=== PATIENT | female | born 1960 | race Caucasian/White ===

== ENCOUNTER → 2016-10-01 | Outpatient (CLI) | payer BC, OTHER ==
[~2016-10-01] MED LIST: ASPI81TA28 PO; EFFSR75 PO; INSUINJ14 SC; INSUINJ4 SQ; RMR15 PO
[2016-10-01 11:28] LABS: BLOOD UREA NITROGEN 27 mg/dl (7-18); CALCIUM 9.4 mg/dl (8.5-10.1); CARBON DIOXIDE 28 mmol/L (21-32); CHLORIDE 103 mmol/L (98-107); CHOLESTEROL 245 mg/dl (0-200); CREATININE 0.93 mg/dl (0.60-1.20); GLUCOSE 143 mg/dl (70-99); SODIUM 142 mmol/L (136-145)
[2016-10-01 11:31] LABS: HDL CHOLESTEROL 41 mg/dl; LDL CHOLESTEROL CALCULATED 138 mg/dl; TRIGLYCERIDES 328 mg/dl (0-150); VERY LOW DENSITY LIPOPROT CALC 66 mg/dl
[2016-10-01 11:32] LABS: ESTIMATED AVERAGE GLUCOSE 226 mg/dl; HA1C FLAG Normal (Normal)
[2016-10-01 11:59] LABS: RATIO 16.7 mcg/mg (0-30.0)
== END | disposition home or self-care (01) ==
LOC: C.LABBC 07:26
PROVIDERS: ATTEND Nurse Practitioner Family
DX: E11.29 Type 2 diabetes mellitus with other diabetic kidney complication (principal); E78.5 Hyperlipidemia, unspecified

== ENCOUNTER → 2017-01-28 | Outpatient (CLI) | payer BC, OTHER ==
[2017-01-28 11:54] LABS: ESTIMATED AVERAGE GLUCOSE 160 mg/dl; HA1C FLAG Normal (Normal)
== END | disposition home or self-care (01) ==
LOC: C.LABBC 07:19
PROVIDERS: ATTEND Nurse Practitioner Family
DX: E11.29 Type 2 diabetes mellitus with other diabetic kidney complication (principal)

== ENCOUNTER → 2017-06-03 | Outpatient (CLI) | payer BC, OTHER ==
[2017-06-03 11:30] LABS: ESTIMATED AVERAGE GLUCOSE 160 mg/dl; HA1C FLAG Normal (Normal)
== END | disposition home or self-care (01) ==
LOC: C.LABBC 07:28
PROVIDERS: ATTEND Nurse Practitioner Family
DX: E11.65 Type 2 diabetes mellitus with hyperglycemia (principal)

== ENCOUNTER 2017-09-22 03:27 | Emergency (ER) | payer BC, OTHER ==
[~2017-09-22] VITALS: Ht 162.6 cm; Wt 70.0 kg
[2017-09-22 03:34] VITALS: TEMP 36.5; Ht 162.6 cm; Wt 70.0 kg
[2017-09-22] MEDS ORDERED: ONDANSETRON INJ 2 MG/ML 2 ML VIAL IV STA (03:40)
[2017-09-22] MEDS ORDERED: MoRPHine SULFATE 10 MG/ML CARP/VIAL IV STA (03:40)
--- NOTE | 2017-09-22 03:51 | EMERGENCY ROOM VISIT NOTE ---
History First contact with patient: 03:29 Chief Complaint: FLANK PAIN Stated Complaint: FLANK PAIN History of Present Illness The patient is a 57 year old female who presents to the Emergency Room with complaints of left flank pain which began approximate 3.5 hours ago. The patient states that she has had pain in the left side of the back with radiation into the left lower abdomen/groin. She has had nausea and vomiting. She denies urinary symptoms. She states that the pain was initially intermittent but is now constant. She rates the discomfort a 5/10. She does have a history of kidney stones and has had lithotripsy and stent placement in the past for these. She sees Dr. Camargo locally. She denies any changes in bowel movements or fevers. Review of Systems A complete 10 point review of systems was reviewed with the patient with pertinent positives and negatives as per history of present illness. All else were negative. Past Medical/Surgical History Medical Problems: (1) CHRONIC LIVER DIS NEC (2) DIAB SAMY WO COMPL, TYPE II OR UNSPEC TYPE, NOT UNCNTRLD (3) DIVERTICULITIS COLON (W/O MENT OF HEMORRHAGE) (4) HYPERTENSION NOS Family History Diabetes mellitus FH: cancer FH: gallbladder disease FH: heart disease Hypertension Kidney disease Kidney stones Social History Smoking Status: Current Every Day Smoker Alcohol Use: none Housing Status: lives with family Occupation Status: employed Current/Historical Medications Scheduled Aspirin (Aspirin Ec), 81 MG PO HS Hctz/Lisinopril (Lisinopril/Hctz 10/12.5 Mg), 1 TAB PO DAILY Insulin Aspart (novoLOG INSULIN PUMP ), 1 EA N/A UD Mirtazapine Soltab (Remeron Soltab), 30 MG PO HS Ondasetron Odt (Zofran Odt), 4 MG SL Q6H Tamsulosin Hcl (Flomax), 0.4 MG PO DAILY Venlafaxine Hcl (Effexor Extended Rel), 225 MG PO HS Scheduled PRN Oxycodone/Acetaminophen 5MG/325MG (Percocet 5MG/325MG), 1-2 TABS PO Q4H PRN for Pain Physical Exam Vital Signs Date Time Temp Pulse Resp B/P (MAP) Pulse Ox O2 Delivery O2 Flow Rate FiO2 09/22/17 09:16 76 18 128/76 96 09/22/17 07:55 109 18 115/67 95 Room Air 09/22/17 07:14 102 09/22/17 06:35 104 17 96 09/22/17 06:30 130/79 09/22/17 06:00 126/70 09/22/17 05:35 110 16 96 09/22/17 05:30 133/88 09/22/17 05:27 112 14 95 09/22/17 05:00 146/88 09/22/17 04:57 117 18 95 09/22/17 04:31 147/89 09/22/17 04:00 144/87 09/22/17 03:57 106 14 95 09/22/17 03:39 102 09/22/17 03:34 36.5 94 18 140/83 95 Room Air 09/22/17 03:33 140/83 Physical Exam VITALS: Vitals are noted on the nurse's note and reviewed by myself. Vital signs stable. GENERAL: This is a 57-year-old female, in no acute distress, nondiaphoretic, well-developed well-nourished. SKIN: The skin was without rashes. MOUTH: Mucous membranes moist. NECK: Supple without nuchal rigidity. HEART: Regular rate and rhythm without murmurs gallops or rubs. LUNGS: Clear to auscultation bilaterally without wheezes, rales or rhonchi. ABDOMEN: Positive bowel sounds x 4. Soft, mild tenderness to palpation in the left lower quadrant. Left CVA tenderness. No guarding or rebound tenderness. NEURO: Patient was alert and oriented to person place and time. Medical Decision & Procedures ER Provider Diagnostic Interpretation: CT ABDOMEN & PELVIS WITHOUT CONTRAST: 7 mm obstructing calculus in the left distal ureter. Mild left hydroureteronephrosis. Nonobstructing bilateral renal calculi. Normal appendix in the posterior pelvis. Nodular cirrhotic liver. Cholecystectomy. Coronary calcifications. Radiologist: Jo Ann Guan MD Laboratory Results 09/22/17 04:12 Red Blood Count 3.94, Mean Corpuscular Volume 86.3, Mean Corpuscular Hemoglobin 30.7, Mean Corpuscular Hemoglobin Concent 35.6, Mean Platelet Volume 10.4, Neutrophils (%) (Auto) 77.8, Lymphocytes (%) (Auto) 17.9, Monocytes (%) (Auto) 2.9, Eosinophils (%) (Auto) 0.9, Basophils (%) (Auto) 0.3, Neutrophils # (Auto) 9.02, Lymphocytes # (Auto) 2.07, Monocytes # (Auto) 0.34, Eosinophils # (Auto) 0.11, Basophils # (Auto) 0.03 09/22/17 04:12 Test 09/22/17 04:12 09/22/17 06:12 White Blood Count 11.59 K/uL (4.8-10.8) Red Blood Count 3.94 M/uL (4.2-5.4) Hemoglobin 12.1 g/dL (12.0-16.0) Hematocrit 34.0 % (37-47) Mean Corpuscular Volume 86.3 fL (80-100) Mean Corpuscular Hemoglobin 30.7 pg (25-34) Mean Corpuscular Hemoglobin Concent 35.6 g/dl (32-36) Platelet Count 172 K/uL (130-400) Mean Platelet Volume 10.4 fL (7.4-10.4) Neutrophils (%) (Auto) 77.8 % Lymphocytes (%) (Auto) 17.9 % Monocytes (%) (Auto) 2.9 % Eosinophils (%) (Auto) 0.9 % Basophils (%) (Auto) 0.3 % Neutrophils # (Auto) 9.02 K/uL (1.4-6.5) Lymphocytes # (Auto) 2.07 K/uL (1.2-3.4) Monocytes # (Auto) 0.34 K/uL (0.11-0.59) Eosinophils # (Auto) 0.11 K/uL (0-0.5) Basophils # (Auto) 0.03 K/uL (0-0.2) RDW Standard Deviation 42.7 fL (36.4-46.3) RDW Coefficient of Variation 13.4 % (11.5-14.5) Immature Granulocyte % (Auto) 0.2 % Immature Granulocyte # (Auto) 0.02 K/uL (0.00-0.02) Anion Gap 7.0 mmol/L (3-11) Est Creatinine Clear Calc Drug Dose 60.1 ml/min Estimated GFR () 73.7 Estimated GFR (Non- 63.6 BUN/Creatinine Ratio 23.2 (10-20) Calcium Level 8.9 mg/dl (8.5-10.1) Total Bilirubin 0.3 mg/dl (0.2-1) Aspartate Amino Transf (AST/SGOT) 31 U/L (15-37) Alanine Aminotransferase (ALT/SGPT) 37 U/L (12-78) Alkaline Phosphatase 99 U/L (45-117) Total Protein 7.6 gm/dl (6.4-8.2) Albumin 3.8 gm/dl (3.4-5.0) Globulin 3.8 gm/dl (2.5-4.0) Albumin/Globulin Ratio 1.0 (0.9-2) Urine Color RED Urine Appearance CLOUDY (CLEAR) Urine pH 7.5 (4.5-7.5) Urine Specific [place] 1.023 (1.000-1.030) Urine Protein NEG (NEG) Urine Glucose (UA) 3+ (NEG) Urine Ketones TRACE (NEG) Urine Occult Blood 2+ (NEG) Urine Nitrite NEG (NEG) Urine Bilirubin NEG (NEG) Urine Urobilinogen NEG (NEG) Urine Leukocyte Esterase NEG (NEG) Urine WBC (Auto) 5-10 /hpf (0-5) Urine RBC (Auto) >30 /hpf (0-4) Urine Hyaline Casts (Auto) 1-5 /lpf (0-5) Urine Epithelial Cells (Auto) >30 /lpf (0-5) Urine Bacteria (Auto) NEG (NEG) Medications Administered Medications (Trade) Dose Ordered Sig/Slim Route Start Time Stop Time Status Last Admin Dose Admin Morphine Sulfate (MoRPHine SULFATE INJ) 6 mg NOW STAT IV 09/22/17 03:40 09/22/17 03:42 DC 09/22/17 04:08 6 MG Ondansetron HCl (Zofran Inj) 4 mg NOW STAT IV 09/22/17 03:40 09/22/17 03:42 DC 09/22/17 04:08 4 MG Sodium Chloride 1,000 ml @ 999 mls/hr Q1H1M STAT IV 09/22/17 05:57 09/22/17 06:57 DC 09/22/17 05:57 999 MLS/HR ED Course The patient was evaluated as above. Labs were drawn and IV access was obtained. Patient was medicated with 1 L NSS, 6 mg morphine and [address] of the abdomen and pelvis was performed and read by radiology as above. Patient was reevaluated and stated she felt much better. Discharge instructions were reviewed with the patient. The patient verbalized understanding of my assessment and treatment plan and was discharged home in good condition. Medical Decision Differential diagnosis includes kidney stone, pyelonephritis, musculoskeletal pain, among others. The patient is a 57-year-old female who presents today complaining of flank pain and vomiting. Labs revealed mild leukocytosis, likely secondary to stress and vomiting. Urinalysis was not suggestive of infection, but did show occult blood in the urine. Kidney functions are within normal limits. CT scan does reveal an obstructing kidney stone in the distal left ureter. Patient had improvement with IV morphine and Zofran. She has had multiple kidney stones in the past. She was offered admission for pain control, but does not feel that she needs this at this time. She is comfortable with discharge home. She was given prescriptions for Percocet, Zofran and Flomax. She will follow-up with her urologist. She will return here for any worsening symptoms. Based on the patient's presentation and work up, I feel the patient is stable for outpatient treatment. The patient was educated to return to the emergency department for any worsening of their current condition or new/concerning symptoms. She will follow up with urology. [facility] Monitoring [facility] Search Results: patient reviewed within database, no issues identified Medication Reconcilliation Current Medication List: was personally reviewed by me Blood Pressure Screening Patient's blood pressure: Normal blood pressure Impression Primary Impression: Left ureteral calculus Departure Information Dispostion Home / Self-Care Condition GOOD Prescriptions Tamsulosin Hcl (FLOMAX) 0.4 Mg Cap 0.4 MG PO DAILY for 10 Days, #10 CAP Prov: Kamini Harris PA-C 09/22/17 Ondasetron Odt (ZOFRAN ODT) 4 Mg Tab 4 MG SL Q6H for Nausea, #6 TAB Prov: Kamini Harris PA-C 09/22/17 Oxycodone/Acetaminophen 5MG/325MG (PERCOCET 5MG/325MG) Tab 1-2 TABS PO Q4H Y for Pain, #25 TAB For Initial Treatment Prov: Kamini Harris PA-C 09/22/17 Referrals Brendon Farfan M.D. (PCP) Brendon Camargo M.D. Patient Instructions My [facility] Additional Instructions You have been treated in the Emergency Department today for a Kidney Stone ( Nephrolithiasis). You have received pain medicine in the emergency department which impairs your ability to operate a vehicle. It is illegal for you to drive after receiving these medicines. You have been prescribed Percocet to be used for pain control. This is a narcotic medication. You cannot drive or consume alcohol while on this medicine. This medicine should only be used for pain that cannot be controlled with [id number] pain medicines. You have been prescribed Zofran to be used for any nausea or vomiting. Take as prescribed. You have been prescribed Flomax 0.4 mg to be taken ONCE daily. This medicine has been prescribed as it can help relax the smooth muscles of the urinary tract increasing transit time of the kidney stone. For pain control, you can use the following [id number] medicines (if >12 yo): - Regular strength (325mg/tab) Tylenol (acetaminophen) 2 tabs every 4-6 hours as needed. Do not exceed 12 tablets in a 24 hour period. Avoid taking more than 4 grams (4000 mg) of Tylenol per day. This includes any other sources of acetaminophen you may take on a regular basis. - Regular strength (200 mg/tab) Advil (ibuprofen) 1-2 tabs every 4-6 hours as needed. Do not exceed a dose of 3200 mg per day. Contact Dr. Camargo to schedule a follow-up appointment. Return to the Emergency Department if your symptoms persist despite the treatment plan outlined above or if you develop the following symptoms: intractable pain, fever, chills, or large amounts of blood in your urine.
[2017-09-22 04:21] LABS: BASO % 0.3 %; BASO ABS # 0.03 K/uL (0-0.2); EOS % 0.9 %; EOS ABS # 0.11 K/uL (0-0.5); HEMOGLOBIN 12.1 g/dL (12.0-16.0); IG# 0.02 K/uL (0.00-0.02); LYMPH % 17.9 %; LYMPH ABS # 2.07 K/uL (1.2-3.4); MEAN CELL VOLUME 86.3 fL (80-100); MEAN CORPUSCULAR HEMOGLOBIN 30.7 pg (25-34); MEAN CORPUSCULAR HGB CONC 35.6 g/dl (32-36); MEAN PLATELET VOLUME 10.4 fL (7.4-10.4); MONO % 2.9 %; MONO ABS # 0.34 K/uL (0.11-0.59); NEUT % 77.8 %; NEUT ABS # 9.02 K/uL (1.4-6.5); PLATELET COUNT 172 K/uL (130-400); RED CELL DISTRIBUTION WIDTH CV 13.4 % (11.5-14.5); RED CELL DISTRIBUTION WIDTH SD 42.7 fL (36.4-46.3); WHITE BLOOD COUNT 11.59 K/uL (4.8-10.8)
[2017-09-22 04:38] LABS: ALBUMIN 3.8 gm/dl (3.4-5.0); CALCIUM 8.9 mg/dl (8.5-10.1); CREATININE 0.98 mg/dl (0.60-1.20); POTASSIUM 3.4 mmol/L (3.5-5.1)
[2017-09-22 04:41] LABS: TOTAL PROTEIN 7.6 gm/dl (6.4-8.2)
[2017-09-22] MEDS ORDERED: INSPMPNVLG (05:10)
[2017-09-22] MEDS ORDERED: MIRT30TA2 PO (05:11)
[2017-09-22] MEDS ORDERED: LISI-787 PO (05:12)
[2017-09-22] MEDS ORDERED: LSN/10125 PO (05:13)
[2017-09-22] MEDS ORDERED: SODIUM CHLORIDE 0.9% 1000ML 1,000 ML IV STA (05:57)
--- NOTE | 2017-09-22 06:50 | DIAGNOSTIC IMAGING REPORT ---
ABD/PELVIS WITHOUT FOR STONE CT DOSE: 746.83 mGy.cm HISTORY: Flank pain left flank pain TECHNIQUE: Multiaxial CT images of the abdomen and pelvis were performed without the use of intravenous and oral contrast according to the standard department stone protocol. A dose lowering technique was utilized adhering to the principles of ALARA. COMPARISON STUDY: 05/29/2013 FINDINGS: Lung bases are clear. Prior cholecystectomy. Liver spleen and pancreas are otherwise uniform. Pancreas is unremarkable. Several nonobstructive renal calcifications bilaterally. These are similar compared to the prior study. Moderate left hydroureteronephrosis. 4 mm obstructing calculus at the level of the inferior left sacroiliac joint. Bladder is midline. Bowel pattern is considered nonobstructive. Patent note is made of a sclerotic changes superior left femoral head possibly on the basis of pre-existing avascular process. IMPRESSION: 1. 4 mm obstructing calculus distal left ureter at the level of the left inferior sacroiliac joint. 2. Moderate left hydroureteronephrosis. 3. Additional nonobstructing renal calcifications bilaterally. 4. Sclerosis left superior femoral head possibly on the basis of pre-existing avascular necrosis. This is unchanged from the prior study, and is not considered acute.. The above report was generated using voice recognition software. It may contain grammatical, syntax or spelling errors. Electronically signed by: Luis Daniel Leach M.D. 09/22/2017 6:49 AM Dictated Date/Time: 09/22/2017 6:45 AM
[2017-09-22] MEDS ORDERED: TAMS0.4C38 PO (07:04)
[2017-09-22] MEDS ORDERED: OXYC-57 PO (07:04)
[2017-09-22] MEDS ORDERED: ONDA4TAB10 SL (07:04)
[2017-09-22 09:16] VITALS: BP 128/76; PULSE 76; O2SAT 96
[2017-09-24] MEDS ORDERED: ONDA4TAB10 SL (13:07)
[2017-09-24] MEDS ORDERED: OXYC-57 PO (13:07)
== END 2017-09-22 09:17 | disposition home or self-care (01) ==
LOC: EDBD 03:27 → C.EDB 03:29
DX: N20.1 Calculus of ureter (principal); I10 Essential (primary) hypertension; E11.9 Type 2 diabetes mellitus without complications; K76.9 Liver disease, unspecified; K57.92 Diverticulitis of intestine, part unspecified, without perforation or abscess without bleeding; F17.200 Nicotine dependence, unspecified, uncomplicated; Z79.4 Long term (current) use of insulin; Z79.82 Long term (current) use of aspirin; Z79.899 Other long term (current) drug therapy; Z83.3 Family history of diabetes mellitus; Z80.9 Family history of malignant neoplasm, unspecified; Z83.79 Family history of other diseases of the digestive system; Z82.49 Family history of ischemic heart disease and other diseases of the circulatory system; Z84.1 Family history of disorders of kidney and ureter

== ENCOUNTER 2017-09-23 10:54 | Observation (INO) | payer BC, OTHER ==
[~2017-09-23] VITALS: Ht 162.6 cm; Wt 72.2 kg
[~2017-09-23 10:54] MED LIST changes: -CIPR-255 PO; +MoRPHine SULFATE 10 MG/ML CARP/VIAL ONE; +ONDANSETRON INJ 2 MG/ML 2 ML VIAL ONE; -PHEN-775 PO
[2017-09-23] MEDS ORDERED: ONDANSETRON INJ 2 MG/ML 2 ML VIAL IV STA (11:23)
[2017-09-23] MEDS ORDERED: SODIUM CHLORIDE 0.9% 1000ML 1,000 ML IV STA (11:23)
[2017-09-23] MEDS ORDERED: MoRPHine SULFATE 10 MG/ML CARP/VIAL IV PRN (11:30)
--- NOTE | 2017-09-23 11:31 | EMERGENCY ROOM VISIT NOTE ---
History Report prepared by Gilda: Nathan Lopez Under the Supervision of: Dr. Hunter Almeida M.D. First contact with patient: 11:20 Chief Complaint: KIDNEY STONE Stated Complaint: KIDNEY STONE WON'T PASS History of Present Illness The patient is a 57 year old female who presents to the Emergency Room with complaints of a persistent left-sided kidney stone over the past 2 or 3 days. She was sent here after being seen by Dr. Camargo of urology this morning. The patient states that she has a history of kidney stones, and her last one was in 2013. She has passed kidney stones before, and she has needed intervention other times as well. The patient states that she was initially told that her kidney stone was [address] scan, but on the KUB today, it revealed a [address] Camargo told the patient that an extraction would most likely be necessary for this stone. The patient states that she has had nausea and vomiting. She says that she took Percocet this morning but it is not lessening the pain. The patient denies any notable urinary symptoms. She has taken one dose of Flomax so far. Source of History: patient, family Onset: 2 or 3 days Position: other (left kidney) Quality: other (stone) Timing: other (persistent) Associated Symptoms: + nausea, + vomiting, No urinary symptoms Note: No other associated symptoms noted. Review of Systems See HPI for pertinent positives & negatives. A total of 10 systems reviewed and were otherwise negative. Past Medical & Surgical Medical Problems: (1) CHRONIC LIVER DIS NEC (2) DIAB SAMY WO COMPL, TYPE II OR UNSPEC TYPE, NOT UNCNTRLD (3) DIVERTICULITIS COLON (W/O MENT OF HEMORRHAGE) (4) Hydronephrosis due to obstruction of ureter (5) HYPERTENSION NOS Family History Diabetes mellitus FH: cancer FH: gallbladder disease FH: heart disease Hypertension Kidney disease Kidney stones Social History Smoking Status: Current Every Day Smoker Alcohol Use: none Housing Status: lives with family Occupation Status: employed Current/Historical Medications Scheduled Aspirin (Aspirin Ec), 81 MG PO HS Hctz/Lisinopril (Lisinopril/Hctz 10/12.5 Mg), 1 TAB PO DAILY Insulin Aspart (novoLOG INSULIN PUMP ), 1 EA N/A UD Mirtazapine Soltab (Remeron Soltab), 30 MG PO HS Ondasetron Odt (Zofran Odt), 4 MG SL Q6H Tamsulosin Hcl (Flomax), 0.4 MG PO DAILY Venlafaxine Hcl (Effexor Extended Rel), 225 MG PO HS Scheduled PRN Oxycodone/Acetaminophen 5MG/325MG (Percocet 5MG/325MG), 1-2 TABS PO Q4H PRN for Pain Allergies Coded Allergies: Penicillins (Verified Allergy, Mild, 09/23/17) Physical Exam Vital Signs Date Time Temp Pulse Resp B/P (MAP) Pulse Ox O2 Delivery O2 Flow Rate FiO2 09/23/17 11:03 37.1 104 18 114/68 96 Room Air Physical Exam GENERAL: Patient is in no acute distress. HEENT: No acute trauma, normocephalic atraumatic, mucous membranes moist, no nasal congestion, no scleral icterus. NECK: No stridor, no adenopathy, no meningismus, trachea is midline. LUNGS: Clear to auscultation bilaterally, no wheeze, no rhonchi, breath sounds equal. HEART: Without murmurs gallops or rubs, regular rate and rhythm. BACK: Left flank discomfort with percussion. ABDOMEN: Tender along entire left side. Soft, bowel sounds positive, no hernias , no peritonitis. EXTREMITIES: No cyanosis or edema, full range of motion of all the joints without pain or difficulty, no signs for acute trauma. NEUROLOGIC: Oriented x 3, no acute motor or sensory deficits, no focal weakness. SKIN: No rash, no jaundice, no diaphoresis. Medical Decision & Procedures Laboratory Results 09/23/17 11:22 Red Blood Count 3.91, Mean Corpuscular Volume 88.2, Mean Corpuscular Hemoglobin 29.4, Mean Corpuscular Hemoglobin Concent 33.3, Mean Platelet Volume 10.3, Neutrophils (%) (Auto) 65.8, Lymphocytes (%) (Auto) 26.0, Monocytes (%) (Auto) 6.2, Eosinophils (%) (Auto) 1.5, Basophils (%) (Auto) 0.2, Neutrophils # (Auto) 7.27, Lymphocytes # (Auto) 2.86, Monocytes # (Auto) 0.68, Eosinophils # (Auto) 0.16, Basophils # (Auto) 0.02 09/23/17 11:22 Test 09/23/17 11:22 White Blood Count 11.02 K/uL (4.8-10.8) Red Blood Count 3.91 M/uL (4.2-5.4) Hemoglobin 11.5 g/dL (12.0-16.0) Hematocrit 34.5 % (37-47) Mean Corpuscular Volume 88.2 fL (80-100) Mean Corpuscular Hemoglobin 29.4 pg (25-34) Mean Corpuscular Hemoglobin Concent 33.3 g/dl (32-36) Platelet Count 162 K/uL (130-400) Mean Platelet Volume 10.3 fL (7.4-10.4) Neutrophils (%) (Auto) 65.8 % Lymphocytes (%) (Auto) 26.0 % Monocytes (%) (Auto) 6.2 % Eosinophils (%) (Auto) 1.5 % Basophils (%) (Auto) 0.2 % Neutrophils # (Auto) 7.27 K/uL (1.4-6.5) Lymphocytes # (Auto) 2.86 K/uL (1.2-3.4) Monocytes # (Auto) 0.68 K/uL (0.11-0.59) Eosinophils # (Auto) 0.16 K/uL (0-0.5) Basophils # (Auto) 0.02 K/uL (0-0.2) RDW Standard Deviation 44.5 fL (36.4-46.3) RDW Coefficient of Variation 13.8 % (11.5-14.5) Immature Granulocyte % (Auto) 0.3 % Immature Granulocyte # (Auto) 0.03 K/uL (0.00-0.02) Anion Gap 8.0 mmol/L (3-11) Est Creatinine Clear Calc Drug Dose 46.7 ml/min Estimated GFR () 53.4 Estimated GFR (Non- 46.0 BUN/Creatinine Ratio 17.4 (10-20) Calcium Level 8.8 mg/dl (8.5-10.1) Laboratory results reviewed by me. Medications Administered Medications (Trade) Dose Ordered Sig/Slim Route Start Time Stop Time Status Last Admin Dose Admin Ondansetron HCl (Zofran Inj) 4 mg NOW STAT IV 09/23/17 11:23 09/23/17 11:26 DC 12/29/17 11:40 4 MG Sodium Chloride 1,000 ml @ 999 mls/hr Q1H1M STAT IV 09/23/17 11:23 09/23/17 12:23 DC 09/23/17 11:39 999 MLS/HR Morphine Sulfate (MoRPHine SULFATE INJ) 6 mg Q15M PRN IV 09/23/17 11:30 09/23/17 16:05 DC 09/23/17 11:41 6 MG Morphine Sulfate (MoRPHine SULFATE INJ) 2 mg STK-MED ONCE .ROUTE 09/23/17 13:50 09/23/17 13:51 DC 09/23/17 13:58 2 MG Morphine Sulfate (MoRPHine SULFATE INJ) 4 mg STK-MED ONCE .ROUTE 09/23/17 13:50 09/23/17 13:51 DC 09/23/17 13:57 4 MG ED Course 1122: The patient was evaluated in room B9. A complete history and physical exam was performed. 1123: Ordered NSS 1000 ml @ 999 mls/hr IV, Zofran Inj 4 mg IV. 1130: Ordered Morphine Sulfate Inj 6 mg IV PRN. 1137: I discussed the patient with Dr. Mary Jo CON[facility] urology - he says that he would like the patient to be brought in on the medicine service and have a urology consult for a potential stenting or stone extraction. 1200: Upon reexamination the patient is resting comfortably. I discussed results and treatment plan with the patient. She verbalizes agreement and understanding. The patient will be evaluated for further management. 1203: Discussed the patient's [facility] The patient will be evaluated for further management. Medical Decision Differential diagnosis includes but is not limited to failed outpatient treatment, hydronephrosis, UTI, pyelonephritis, renal colic, electrolyte imbalance, renal failure. There is a mild leukocytosis, this could be consistent with infection or just her pain and discomfort. No worrisome anemia. No significant electrolyte abnormality or kidney failure. KUB from earlier today showed a left sided ureteral stone measured at 7 mm. Urinalysis result is currently pending. The patient presents with left flank pain from a known ureteral stone. She presents from the urology office. She was given IV morphine, IV Zofran and IV saline, she feels improved. I did speak with the urologist. The patient is being hospitalized for intervention and possible stone extraction. I did speak to case management, the on-call hospitalist was consulted. She has failed outpatient management. Medication Reconcilliation Current Medication List: was personally reviewed by me Blood Pressure Screening Patient's blood pressure: Normal blood pressure Consults Time Called: 1135 Consulting Physician: Dr. Mary Jo [facility] urology Returned Call: [phone] I discussed the patient with Dr. Mary Jo [facility] urology - he says that he would like the patient to be brought in on the medicine service and have a urology consult for a potential stenting or stone extraction. Additional Consults: Time Called: 1145 Consulted Physician: Dr. Megan [facility]CE[facility] casting sorter Returned Call: [phone] Additional Comments: Discussed the patient's case with Dr. Megan [facility] casting sorter. The patient will be evaluated for further management. Impression Primary Impression: Renal colic Additional Impressions: Vomiting Failure of outpatient treatment Scribe Attestation The scribe's documentation has been prepared under my direction and personally reviewed by me in its entirety. I confirm that the note above accurately reflects all work, treatment, procedures, and medical decision making performed by me. Departure Information Dispostion Being Evaluated By Hospitalist Referrals Brendon Farfan M.D. (PCP) Patient Instructions My [facility] Problem Qualifiers Additional Impressions: Vomiting Vomiting type: unspecified Vomiting Intractability: unspecified Nausea presence: unspecified Qualified Codes: R11.10 - Vomiting, unspecified
[2017-09-23 11:44] LABS: BASO % 0.2 %; BASO ABS # 0.02 K/uL (0-0.2); EOS % 1.5 %; EOS ABS # 0.16 K/uL (0-0.5); HEMATOCRIT 34.5 % (37-47); HEMOGLOBIN 11.5 g/dL (12.0-16.0); IG# 0.03 K/uL (0.00-0.02); LYMPH ABS # 2.86 K/uL (1.2-3.4); MEAN CELL VOLUME 88.2 fL (80-100); MEAN CORPUSCULAR HEMOGLOBIN 29.4 pg (25-34); MEAN CORPUSCULAR HGB CONC 33.3 g/dl (32-36); MEAN PLATELET VOLUME 10.3 fL (7.4-10.4); MONO % 6.2 %; MONO ABS # 0.68 K/uL (0.11-0.59); NEUT % 65.8 %; NEUT ABS # 7.27 K/uL (1.4-6.5); PLATELET COUNT 162 K/uL (130-400); RED CELL DISTRIBUTION WIDTH CV 13.8 % (11.5-14.5); RED CELL DISTRIBUTION WIDTH SD 44.5 fL (36.4-46.3); WHITE BLOOD COUNT 11.02 K/uL (4.8-10.8)
[2017-09-23 11:55] LABS: CALCIUM 8.8 mg/dl (8.5-10.1); CREATININE 1.28 mg/dl (0.60-1.20); POTASSIUM 3.1 mmol/L (3.5-5.1)
[2017-09-23] MEDS ORDERED: MoRPHine SULFATE 4 MG/ML 1 ML CARP\\VIAL ONE (13:50)
[2017-09-23] MEDS ORDERED: MoRPHine SULFATE 2 MG/ML CARP ONE (13:50)
[2017-09-23] MEDS ORDERED: GLUCOSE 10 TABS/TUBE PO PRN (14:00)
[2017-09-23] MEDS ORDERED: GLUCOSE 40% GEL 15 GM TUBE PO PRN (14:00)
[2017-09-23] MEDS ORDERED: ALUMINUM/MAGNESIUM/SIMETH (MAALOX MAX) 30 ML UDC PO PRN (14:00)
[2017-09-23] MEDS ORDERED: ONDANSETRON INJ 2 MG/ML 2 ML VIAL IV PRN (14:00)
[2017-09-23] MEDS ORDERED: IV FLUIDS COMPLETED PRN (14:00)
[2017-09-23] MEDS ORDERED: GLUCAGON FOR INJ 1 MG VIAL SQ PRN (14:00)
[2017-09-23] MEDS ORDERED: DEXTROSE 50% 50 ML SYR IV PRN (14:00)
[2017-09-23] MEDS ORDERED: MAGNESIUM HYDROXIDE SUSP 30 ML UDC PO PRN (14:00)
[2017-09-23] MEDS ORDERED: POLYETHYLENE (MIRALAX) 17 GM PACK PO PRN (14:00)
[2017-09-23] MEDS ORDERED: ZOLPIDEM TARTRATE 5 MG TAB PO PRN (14:00)
[2017-09-23] MEDS ORDERED: HYDROmorphone INJ 1 MG/ML SYR IV PRN (14:00)
--- NOTE | 2017-09-23 14:20 | History and Physical ---
History & Physical Date & Time of Service: Sep 23, 2017 at 14:04 Chief Complaint: Kidney Stone Won't Pass Primary Care Physician: Brendon Farfan M.D. History of Present Illness Source: patient 57 y/o F Hx IDDM, HTN, fatty liver disease, migraines, depression, nephrolithiasis - previous ureteral stent placement. The pt presents with LLQ pain, nausea and vomiting. She had a CT pelvis 09/22 which confirmed a distal L obstructive ureteral calculus measuring 4mm and moderate hydronephrosis. She arrived at the hospital a day later due to worsening pain, nausea and vomiting. She denies fevers or rigors. A KUB was obtained as a follow-up confirming a calculus, however, it was measured at approximately 7mm. Past Medical/Surgical History 1) DM II - insulin pump 2) Nephrolithiasis - previous obstruction and stent placement 3) Fatty liver disease 4) Depression 5) Migraine headaches 6) HTN 7) Diverticulitis 8) HPL Surgical: 1) Ureteral stent placement 2) Cholecystectomy 3) GERALD/BSO Family History Diabetes mellitus FH: cancer FH: gallbladder disease FH: heart disease Hypertension Kidney disease Kidney stones Social History Smokes 1/2 pack daily Smoking Status: Current Every Day Smoker Occupational Status: employed Multi-Drug Resistant Organisms History of MDRO: No Allergies Coded Allergies: Penicillins (Verified Allergy, Mild, 09/23/17) Home Medications Scheduled Aspirin (Aspirin Ec), 81 MG PO HS Hctz/Lisinopril (Lisinopril/Hctz 10/12.5 Mg), 1 TAB PO DAILY Insulin Aspart (novoLOG INSULIN PUMP ), 1 EA N/A UD Mirtazapine Soltab (Remeron Soltab), 30 MG PO HS Ondasetron Odt (Zofran Odt), 4 MG SL Q6H Tamsulosin Hcl (Flomax), 0.4 MG PO DAILY Venlafaxine Hcl (Effexor Extended Rel), 225 MG PO HS Scheduled PRN Oxycodone/Acetaminophen 5MG/325MG (Percocet 5MG/325MG), 1-2 TABS PO Q4H PRN for Pain Review of Systems Constitutional: No fever, No chills, No sweats Eyes: No worsening of vision ENT: No hearing loss, No nasal symptoms Respiratory: No cough, No wheezing Cardiovascular: No chest pain, No orthopnea, No PND Abdomen: + pain, + nausea, + vomiting Neurologic: No memory loss, No paralysis, No weakness Psychiatric: No depression symptoms Endocrine: No fatigue Hematologic / Lymphatic: No abnormal bleeding/bruising Integumentary: No rash Physical Exam Vital Signs Date Time Temp Pulse Resp B/P (MAP) Pulse Ox O2 Delivery O2 Flow Rate FiO2 09/23/17 11:03 37.1 104 18 114/68 96 Room Air General Appearance: WD/WN, no apparent distress Head: normocephalic ENT: normal ENT inspection, pharynx normal Neck: supple, no JVD Respiratory/Chest: chest non-tender, lungs clear, normal breath sounds Cardiovascular: regular rate, rhythm, no edema, no gallop Abdomen/GI: normal bowel sounds, non tender, soft Extremities/Musculoskelatal: normal inspection, no calf tenderness, normal capillary refill, no pedal edema, normal range of motion 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, no motor/sensory deficits, alert, oriented x 3 Skin: normal color, warm/dry Diagnostics Laboratory Results Results Past 24 Hours Test 09/23/17 11:22 Range/Units White Blood Count 11.02 4.8-10.8 K/uL Red Blood Count 3.91 4.2-5.4 M/uL Hemoglobin 11.5 12.0-16.0 g/dL Hematocrit 34.5 37-47 % Mean Corpuscular Volume 88.2 80-100 fL Mean Corpuscular Hemoglobin 29.4 25-34 pg Mean Corpuscular Hemoglobin Concent 33.3 32-36 g/dl Platelet Count 162 130-400 K/uL Mean Platelet Volume 10.3 7.4-10.4 fL Neutrophils (%) (Auto) 65.8 % Lymphocytes (%) (Auto) 26.0 % Monocytes (%) (Auto) 6.2 % Eosinophils (%) (Auto) 1.5 % Basophils (%) (Auto) 0.2 % Neutrophils # (Auto) 7.27 1.4-6.5 K/uL Lymphocytes # (Auto) 2.86 1.2-3.4 K/uL Monocytes # (Auto) 0.68 0.11-0.59 K/uL Eosinophils # (Auto) 0.16 0-0.5 K/uL Basophils # (Auto) 0.02 0-0.2 K/uL RDW Standard Deviation 44.5 36.4-46.3 fL RDW Coefficient of Variation 13.8 11.5-14.5 % Immature Granulocyte % (Auto) 0.3 % Immature Granulocyte # (Auto) 0.03 0.00-0.02 K/uL Sodium Level 136 136-145 mmol/L Potassium Level 3.1 3.5-5.1 mmol/L Chloride Level 100 98-107 mmol/L Carbon Dioxide Level 29 21-32 mmol/L Anion Gap 8.0 3-11 mmol/L Blood Urea Nitrogen 22 7-18 mg/dl Creatinine 1.28 0.60-1.20 mg/dl Est Creatinine Clear Calc Drug Dose 46.7 ml/min Estimated GFR () 53.4 Estimated GFR (Non- 46.0 BUN/Creatinine Ratio 17.4 10-20 Random Glucose 173 70-99 mg/dl Calcium Level 8.8 8.5-10.1 mg/dl Diagnostic Radiology KUB 09/23: 1. A 7 mm calcification in the left hemipelvis likely represents an obstructing distal left ureteral stone when correlated with yesterday's CT scan. 2. Numerous additional small nonobstructing renal calculi are present in both kidneys. 3. 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 CT abdomen 09/22: 1. 4 mm obstructing calculus distal left ureter at the level of the left inferior sacroiliac joint. 2. Moderate left hydroureteronephrosis. 3. Additional nonobstructing renal calcifications bilaterally. 4. Sclerosis left superior femoral head possibly on the basis of pre-existing avascular necrosis. This is unchanged from the prior study, and is not considered acute.. Impression Assessment and Plan 57 y/o F Hx IDDM, HTN, fatty liver disease, migraines, depression, nephrolithiasis - previous ureteral stent placement. The pt presents with LLQ pain, nausea and vomiting. She had a CT pelvis 09/22 which confirmed a distal L obstructive ureteral calculus measuring 4mm and moderate hydronephrosis. She arrived at the hospital a day later due to worsening pain, nausea and vomiting. She denies fevers or rigors. A KUB was obtained as a follow-up confirming a calculus, however, it was measured at approximately 7mm. 1) Obstructing calculus - will likely need extraction - urology aware - pt will be kept NPO - antiemetics and narcotics provided. She is placed on IVF and Flomax. 2) DM II - will continue to use pump, however, we will revert to a sliding scale if numbers are not better controlled. 3) HTN - HCTZ/Lisinopril held - will provide PRN Hydralazine. 4) Depression - will remain on Effexor and HS Remeron. Full code - SCDs Total time for this admit including review of records, meds, labs, imaging - discussion with pt and ER attending - 35 min Level of Care Med/Surg Resuscitation Status FULL RESUSCITATION VTE Prophylaxis VTE Risk Assessment Done? Y/N: Yes Risk Level: Moderate Given or contraindicated: SCD's
[2017-09-23 15:21] VITALS: O2SAT 96
[2017-09-23] MEDS ORDERED: INSULIN ASPART 100 UNITS/ML 3 ML PEN SC SCH (16:00)
[2017-09-23] MEDS ORDERED: ONDANSETRON 4MG OD TAB SL SCH (16:00)
[2017-09-23] MEDS ORDERED: MAGNESIUM SULFATE 1GM / D5W 1 GM in PREMIXED IN D5W 100 ML IV STA (16:05)
[2017-09-23 16:26] VITALS: BMI 27.3
[2017-09-23 16:29] VITALS: BP 105/67; PULSE 92; TEMP 36.7; O2SAT 96
[2017-09-23] MEDS: METOCLOPRAMIDE HCL INJ 5 MG/ML 2 ML VIAL IV SCH ×2 (17:05→22:34)
[2017-09-23] MEDS: NSS + 20MEQ KCL 1000ML 1,000 ML IV SCH (17:14)
[2017-09-23] MEDS: POTASSIUM CHLR 10 MEQ / WTR 10 MEQ in PREMIXED WATER 100 ML IV SCH ×2 (17:14→19:11)
[2017-09-23] MEDS ORDERED: INFLUENZA ADMINISTRATION CHARGE ONE (17:15)
[2017-09-23] MEDS ORDERED: ONDANSETRON 4MG OD TAB SL PRN (17:15)
[2017-09-23] MEDS ORDERED: INFLUENZA VIRUS QUAD VACCINE 0.5 ML SYR IM. ONE (17:15)
[2017-09-23] MEDS: INSULIN ASPART 100 UNITS/ML 3 ML PEN SC SCH (19:00)
[2017-09-23] MEDS: ACETAMINOPHEN 325 MG TAB PO PRN (19:10)
[2017-09-23] MEDS ORDERED: MIRTAZAPINE SOLTAB 15 MG PO SCH (21:00)
[2017-09-23] MEDS ORDERED: VENLAFAXINE HCL XR 75 MG CAPXR PO SCH (21:00)
[2017-09-23] MEDS ORDERED: ASPIRIN 81 MG ECTAB PO SCH (21:00)
[2017-09-23 22:49] VITALS: BP 123/72; PULSE 96; TEMP 37; O2SAT 94
[2017-09-24] MEDS: ACETAMINOPHEN 325 MG TAB PO PRN ×2 (00:14→04:23)
[2017-09-24] MEDS ORDERED: NURSING DECISION MEDICATION ORDER SCH (02:15)
[2017-09-24] MEDS: METOCLOPRAMIDE HCL INJ 5 MG/ML 2 ML VIAL IV SCH ×3 (04:23→16:38)
[2017-09-24] MEDS: NSS + 20MEQ KCL 1000ML 1,000 ML IV SCH (04:32)
[2017-09-24] MEDS: INSULIN ASPART 100 UNITS/ML 3 ML PEN SC SCH ×3 (06:00→12:00)
[2017-09-24 07:25] VITALS: BP 122/75; PULSE 99; TEMP 37.3; O2SAT 96
[2017-09-24] MEDS ORDERED: POTASSIUM CHLORIDE 20 MEQ TABCR PO SCH (09:00)
[2017-09-24] MEDS ORDERED: TAMSULOSIN HCL 0.4 MG CAP PO SCH (09:00)
[2017-09-24] MEDS ORDERED: KETOROLAC TROMETHAMINE 30 MG/ML VIAL IV PRN (11:15)
[2017-09-24] MEDS ORDERED: SODIUM CHLORIDE 0.9% 1000ML 1,000 ML IV SCH (11:30)
--- NOTE | 2017-09-24 12:19 | Urology Consultation ---
History General Date of Service: Sep 24, 2017. Chief Complaint: LLQ pain, stone. Primary Care Physician: Brendon Farfan M.D. Pt seen a urologist before?: Yes If yes, why?: Dr. Camargo for stone History of Present Illness 57 yo female, seen yesterday in our office for intractable colic, last seen in 2013 for the same issue by Dr. Camargo. Her ER notes, imaging and office records are reviewed. She has a L distal ureteral stone with hydro, colic persists, intractable. She was originally planned for intervention with ureteroscopy next week but could not tolerate the pain. She is currently NPO. She denies f/c currently. consultation is requested to assist with her acute care. HPI - Stones Location: left, ureter Pain: left flank Patient has: + hydronephrosis, No nausea, No emesis ER Visits: number (1) Additional Comments: previous ureteroscopy and stent, well tolerated. Imaging Imaging: CT, KUB Laboratory Last 24 Hours Test 09/23/17 16:09 09/23/17 18:02 09/23/17 22:00 09/24/17 00:05 Bedside Glucose 128 mg/dl 157 mg/dl 135 mg/dl Urine Color YELLOW Urine Appearance CLEAR Urine pH 5.0 Urine Specific Mcgrath 1.022 Urine Protein NEG Urine Glucose (UA) NEG Urine Ketones TRACE Urine Occult Blood NEG Urine Nitrite NEG Urine Bilirubin NEG Urine Urobilinogen NEG Urine Leukocyte Esterase TRACE Urine WBC (Auto) 1-5 /hpf Urine RBC (Auto) 5-10 /hpf Urine Hyaline Casts (Auto) 1-5 /lpf Urine Epithelial Cells (Auto) 5-10 /lpf Urine Bacteria (Auto) NEG Urine Crystals CALCIUM OXALATE Test 09/24/17 05:51 Bedside Glucose 126 mg/dl Problem List Medical Problems: (1) Failure of outpatient treatment Status: Acute (2) Renal colic Status: Acute (3) Vomiting Status: Acute Past History depression, diabetes, diverticulosis, hypertension, kidney stones, migraines, other (fatty liver) Past Surgical History: cholecystectomy, hysterectomy, ureteral stent Family History Diabetes mellitus FH: cancer FH: gallbladder disease FH: heart disease Hypertension Kidney disease Kidney stones Social History Hx Tobacco Use In Past Year?: Yes (pt states current smoker ) Smoking: less than 1 pack/day Occupation status: employed History of MDRO No Allergies Coded Allergies: Penicillins (Verified Allergy, Mild, 09/23/17) Medications Home Medications: Home Meds and Scripts Medications Dose Route/Sig Max Daily Dose Days Date Category Dose Instructions Flomax (Tamsulosin Hcl) 0.4 Mg Cap 0.4 Mg PO DAILY 10 09/22/17 Rx Zofran Odt (Ondansetron HCl) 4 Mg Tab 4 Mg SL Q6H 09/22/17 Rx Percocet 5MG/325MG (Oxycodone/Acetaminophen) Tab 1-2 Tabs PO Q4H PRN 09/22/17 Rx For Initial Treatment Lisinopril/Hctz 07/07.5 Mg (HCTZ/Lisinopril) 1 Ea Tab 1 Tab PO DAILY 09/22/17 Reported Remeron Soltab (Mirtazapine) 30 Mg Soltab 30 Mg PO HS 09/22/17 Reported novoLOG INSULIN PUMP (Insulin Aspart) 1 Ea Inj 1 Ea N/A UD 09/22/17 Reported Aspirin Ec (Aspirin) 81 Mg Tab 81 Mg PO HS 11/27/15 Reported Effexor Extended Rel (Venlafaxine Hcl) 75 Mg Capcr 225 Mg PO HS 11/27/15 Reported Inpatient Medications: Current Inpatient Medications Medications (Trade) Dose Ordered Sig/Slim Route Start Time Stop Time Status Last Admin Dose Admin Hydromorphone HCl (Dilaudid Inj) 1 mg Q3H PRN IV 09/23/17 14:00 10/07/17 13:59 09/24/17 08:05 1 MG Acetaminophen (Tylenol Tab) 650 mg Q4H PRN PO 09/23/17 14:00 10/23/17 13:59 09/24/17 04:23 650 MG Al Hydrox/Mg Hydrox/Simethicone (Maalox Max Susp) 15 ml Q4H PRN PO 09/23/17 14:00 10/23/17 13:59 Magnesium Hydroxide (Milk Of Magnesia Susp) 30 ml Q6H PRN PO 09/23/17 14:00 10/23/17 13:59 Polyethylene (Miralax Powder Packet) 17 gm DAILY PRN PO 09/23/17 14:00 10/23/17 13:59 Ondansetron HCl (Zofran Inj) 4 mg Q6H PRN IV 09/23/17 14:00 10/23/17 13:59 09/23/17 15:37 4 MG Miscellaneous (Iv Fluids Completed) 1 ea PRN PRN N/A 09/23/17 14:00 09/23/18 13:59 Aspirin (Ecotrin Tab) 81 mg HS PO 09/23/17 21:00 10/23/17 20:59 09/23/17 20:31 81 MG Tamsulosin HCl (Flomax Cap) 0.4 mg DAILY PO 09/24/17 09:00 10/24/17 08:59 09/24/17 08:08 0.4 MG Venlafaxine HCl (effeXOR EXTENDED REL CAP) 225 mg HS PO 09/23/17 21:00 10/23/17 20:59 09/23/17 20:32 225 MG Mirtazapine (Remeron Solutab) 30 mg HS PO 09/23/17 21:00 10/23/17 20:59 09/23/17 20:31 30 MG Glucose (Glucose 40% Gel) 15-30 GRAMS 15 GRAMS... UD PRN PO 09/23/17 14:00 10/23/17 13:59 Glucose (Glucose Chew Tab) 4-8 Tablets 4 Tabl... UD PRN PO 09/23/17 14:00 10/23/17 13:59 Dextrose (Dextrose 50% 50ML Syringe) 25-50ML OF 50% DW IV FOR... UD PRN IV 09/23/17 14:00 10/23/17 13:59 Glucagon (Glucagon Inj) 1 mg UD PRN SQ 09/23/17 14:00 10/23/17 13:59 Metoclopramide HCl (Reglan Inj) 5 mg Q6H IV 09/23/17 16:30 10/23/17 16:29 09/24/17 10:23 5 MG Ondansetron HCl (Zofran Odt) 4 mg Q6H PRN SL 09/23/17 17:15 10/23/17 17:14 Insulin Aspart (novoLOG ASPART) SLIDING SCALE G... Q6 SC 09/23/17 19:00 10/23/17 18:59 Potassium Chloride (Klor-Con Tab) 20 meq BID PO 09/24/17 09:00 09/25/17 09:01 09/24/17 08:41 20 MEQ Sodium Chloride 1,000 ml @ 200 mls/hr Q5H IV 09/24/17 11:30 10/24/17 11:29 Ketorolac Tromethamine (Toradol Inj) 30 mg Q6H PRN IV 09/24/17 11:15 09/29/17 11:14 Review of Systems Review of Systems Constitutional: No fever, No chills Eyes: No double vision, No eye pain Neurological: No passing out, No numbness/tingling Endocrine: No too hot, No too cold Gastrointestinal: + abdominal pain, + nausea, No diarrhea Cardiovascular: No angina, No irregular heartbeat Respiratory: No wheezing, No coughing up blood Skin: No boils Musculoskeletal: + back pain Blood / Lymphatic: No swollen glands Ears / Nose / Throat: No sinus, No hoarse voice Psychologic / Mental: No trouble remembering Female : + see HPI, + kidney stones Physical Exam Vital Signs: Vital Signs Past 12 Hours Date Time Temp Pulse Resp B/P (MAP) Pulse Ox O2 Delivery O2 Flow Rate FiO2 09/24/17 07:30 Room Air 09/24/17 07:25 37.3 99 17 122/75 (91) 96 Room Air Physical Exam: General Appearance: WD/WN, + mild distress ENT: hearing grossly normal Neck: supple, no adenopathy Respiratory/Chest: no respiratory distress, no accessory muscle use Cardiovascular: no JVD Extremities: non-tender Neurologic/Psychiatric: alert, oriented x 3 Skin: normal color Assessment & Plan Assessment & Plan Treatment Planned: ureteroscopy w/ laser A/P 57 yo female with L distal ureteral stone and intractable colic. Findings reviewed as well as possible therapeutic options. She has a strong preference to proceed with ureteroscopic management with laser lithotripsy and stent placement today. Risks and benefits reviewed, consent obtained. Will proceed to OR, can be DC home after intervention.
[2017-09-24] MEDS ORDERED: FENTANYL CITRATE INJ 50 MCG/1 ML 2 ML VIAL ONE (12:23)
[2017-09-24] MEDS ORDERED: MIDAZOLAM HCL 1 MG/ML 2ML VIAL ONE (12:23)
[2017-09-24] MEDS ORDERED: CONRAY 30% 150ML BOTTLE ONE (12:28)
[2017-09-24] MEDS ORDERED: EpHEDrine SULFATE INJ 50 MG/ML AMP IV PRN (12:45)
[2017-09-24] MEDS ORDERED: HYDROmorphone INJ 1 MG/ML SYR IV PRN (12:45)
[2017-09-24] MEDS ORDERED: FENTANYL CITRATE INJ 50 MCG/1 ML 2 ML VIAL IV PRN (12:45)
[2017-09-24] MEDS ORDERED: ATROPINE SULFATE 0.1 MG/ML 5ML SYR IV PRN (12:45)
[2017-09-24] MEDS ORDERED: ONDANSETRON INJ 2 MG/ML 2 ML VIAL IV PRN (12:45)
[2017-09-24] MEDS: CIPROFLOXACIN / D5W 400 MG IV SCH ×3 (13:00→15:10)
[2017-09-24] MEDS ORDERED: ONDA4TAB10 SL (13:07)
[2017-09-24] MEDS ORDERED: OXYC-57 PO (13:07)
--- NOTE | 2017-09-24 13:08 | Discharge Instructions ---
Discharge Instructions Date of Service Sep 24, 2017. Admission Reason for Admission: Hydronephrosis Due To Obstruction Of Ureter Discharge Discharge Diagnosis / Problem: renal colic s/p cystoscopy Discharge Goals Goal(s): Diagnostic testing, Therapeutic intervention Activity Recommendations Activity Limitations: as noted below Lifting Limitations: gradually increase as tolerated . Current Hospital Diet Patient's current hospital diet: Discharge Diet Recommended Diet: Diabetes Type 2 Diet Pending Studies Studies pending at discharge: yes List of pending studies: urine culture Medical Emergencies . Who to Call and When: Medical Emergencies: If at any time you feel your situation is an emergency, please call 911 immediately. . Non-Emergent Contact Non-Emergency issues call your: Primary Care Provider, Urologist Call Non-Emergent contact if: temperature is above 101, your pain is unusual for you . . "Provider Documentation" section prepared by Alfredito Torres. . VTE Core Measure Inpt VTE Proph given/why not?: SCD's
--- NOTE | 2017-09-24 13:10 | Discharge Summary ---
Discharge Summary Date of Service Sep 24, 2017. Discharge Summary Admission Date: Sep 23, 2017 at 13:52 Discharge Date: Sep 24, 2017 Discharge Disposition: Home Principal Diagnosis: renal colic s/p cysto Procedures: cystoscopy by Dr Ontiveros Medication Reconciliation Continued Medications: Aspirin (Aspirin Ec) 81 Mg Tab 81 MG PO HS Hctz/Lisinopril (Lisinopril/Hctz 10/12.5 Mg) 1 Ea Tab 1 TAB PO DAILY, TAB Insulin Aspart (novoLOG INSULIN PUMP ) 1 Ea Inj 1 EA N/A UD, EA Mirtazapine Soltab (Remeron Soltab) 30 Mg Soltab 30 MG PO HS, TAB Ondasetron Odt (Zofran Odt) 4 Mg Tab 4 MG SL Q6H for Nausea, #6 TAB (This prescription has been renewed) Oxycodone/Acetaminophen 5MG/325MG (Percocet 5MG/325MG) Tab 1-2 TABS PO Q4H PRN for Pain, #25 TAB (This prescription has been renewed) For Initial Treatment Tamsulosin Hcl (Flomax) 0.4 Mg Cap 0.4 MG PO DAILY for 10 Days, #10 CAP Venlafaxine Hcl (Effexor Extended Rel) 75 Mg Capcr 225 MG PO HS, CAP Discharge Exam Review of Systems: Constitutional: No fever, No chills, No sweats Respiratory: No cough, No sputum, No wheezing Cardiovascular: No chest pain, No orthopnea, No PND Abdomen: + pain, No nausea, No vomiting Musculoskeletal: No joint pain, No muscle pain Physical Exam: General Appearance: WD/WN, no apparent distress Eyes: normal inspection, sclerae normal Respiratory/Chest: chest non-tender, lungs clear, normal breath sounds Cardiovascular: regular rate, rhythm, no murmur Abdomen / GI: soft, + tenderness (left CVA tenderness) Hospital Course 57 y/o F Hx IDDM, HTN, fatty liver disease, migraines, depression, nephrolithiasis - previous ureteral stent placement. The pt presents with LLQ pain, nausea and vomiting. She had a CT pelvis 09/22 which confirmed a distal L obstructive ureteral calculus measuring 4mm and moderate hydronephrosis. She arrived at the hospital a day later due to worsening pain, nausea and vomiting. A KUB was obtained as a follow-up confirming a calculus, however, it was measured at approximately 7mm. 1) Obstructing calculus - Urology to OR 09/24, extraction -continue flomax 2) DM II - continue insulin pump, 3) HTN - HCTZ/Lisinopril resume on discharge 4) Depression - Effexor and HS Remeron. Total Time Spent: Greater than 30 minutes This includes examination of the patient, discharge planning, medication reconciliation, and communication with other providers. Discharge Instructions Please refer to the electronic Patient Visit Report (Discharge Instructions) for additional information.
[2017-09-24] MEDS ORDERED: ONDANSETRON INJ 2 MG/ML 2 ML VIAL ONE (13:18)
[2017-09-24] MEDS ORDERED: PROPOFOL IV EMULSION 10 MG/ML 20 ML VIAL IV ONE (13:18)
[2017-09-24] MEDS ORDERED: LIDOCAINE HCL 2% 2 ML VIAL (20MG/ML) ONE (13:18)
[2017-09-24] MEDS ORDERED: PHENYLEPHRINE 100MCG/ML 5ML SYR ONE (13:22)
[2017-09-24] MEDS ORDERED: CIPR-255 PO (13:48)
[2017-09-24] MEDS ORDERED: PHEN-775 PO (13:48)
--- NOTE | 2017-09-24 13:50 | DIAGNOSTIC IMAGING REPORT ---
RETROGRADE INCLUDES KUB CLINICAL HISTORY: 57 years-old Female presenting with STENT PLACEMENT. TECHNIQUE: 7 fluoroscopic spot image(s) obtained as part of an intraoperative procedure. COMPARISON: Plain radiograph of the abdomen from 09/23/2017. FINDINGS/IMPRESSION: The left ureter was opacified with contrast. A left ureteral stent was placed. A guidewire was introduced into the left ureter for stone retrieval. Please see surgical report for further details. Fluoroscopy dosage (mGy): 16.63. Fluoroscopy time: 68.6 seconds. Number of fluoroscopic spot images: 7. Electronically signed by: Christian Montelongo M.D. 09/24/2017 1:49 PM Dictated Date/Time: 09/24/2017 1:48 PM
--- NOTE | 2017-09-24 13:54 | [facility] Post Operative Brief Note ---
Immediate Operative Summary Operative Date Sep 24, 2017. Pre-Operative Diagnosis Left distal ureteral stone and intractable colic Post-Operative Diagnosis Same as preop Procedure(s) Performed Cystoscopy, Left Retrograde Pyelography, Left Semirigid Ureteroscopy with Laser Lithotripsy and Basket Stone Extraction, Placement of Left Ureteral Stent Surgeon Dr. Ontiveros Fur Farmer Surgeon(s) none Estimated Blood Loss 5 ml Findings Moderate stone burden in distal ureter at the level of the vessels, no residual stones, no ureteral injury, good stent position after completion of case. Specimens A: Left ureteral stone fragments for analysis Drains 6 fr 26 cm L loop ureteral stent Anesthesia [facility] Complication(s) None Disposition Recovery Room / PACU
[2017-09-24] MEDS ORDERED: PHENAZOPYRIDINE HCL 200 MG TAB PO PRN (14:00)
[2017-09-24 14:22] VITALS: BP 122/79; PULSE 98; TEMP 37; O2SAT 94
--- NOTE | 2017-09-24 14:29 | Anesthesiology Progress Note ---
Anesthesia Post Op Note Date & Time Sep 24, 2017 at 14:28 Vital Signs Pain Intensity: 0.0 Vital Signs Past 12 Hours Date Time Temp Pulse Resp B/P (MAP) Pulse Ox O2 Delivery O2 Flow Rate FiO2 09/24/17 14:22 37.0 98 14 94 Room Air 09/24/17 14:20 37 92 16 118/71 94 Nasal Cannula 3 09/24/17 14:10 98 14 122/79 94 Oxymask 7 09/24/17 14:00 104 14 112/73 94 Oxymask 7 09/24/17 13:50 37 106 14 125/82 94 Oxymask 7 09/24/17 07:30 Room Air 09/24/17 07:25 37.3 99 17 122/75 (91) 96 Room Air Notes Mental Status: alert / awake / arousable, participated in evaluation Pt Amnestic to Procedure: Yes Nausea / Vomiting: adequately controlled Pain: adequately controlled Airway Patency, RR, SpO2: stable & adequate BP & HR: stable & adequate Hydration State: stable & adequate Anesthetic Complications: no major complications apparent
[2017-09-24 14:45] VITALS: BP 135/78; PULSE 93; TEMP 36.9; O2SAT 95
[2017-09-24] MEDS ORDERED: NURSING VERBAL MED ORDER ONE (14:45)
[2017-09-24 15:16] VITALS: BP 110/69; PULSE 98; TEMP 37; O2SAT 93
[2017-09-24 15:45] VITALS: BP 113/70; PULSE 100; TEMP 36.5; O2SAT 94
[2017-09-24 16:43] VITALS: BP 115/73; PULSE 83; TEMP 37.1; O2SAT 94
--- NOTE | 2017-09-25 01:36 | OPERATIVE REPORT ---
DATE OF OPERATION: 09/24/2017 PREOPERATIVE DIAGNOSIS: Left 6-mm distal ureteral stone with intractable colic. POSTOPERATIVE DIAGNOSIS: Same. PROCEDURE: Cystoscopy, left retrograde pyelography, left semirigid ureteroscopy with laser lithotripsy, basket stone extraction and placement of left ureteral stent. SURGEON: Dr. Messi Ontiveros. SUSTAINABILITY PURCHASING AGENT: None. ANESTHESIA: General anesthesia with laryngeal mask. COMPLICATIONS: None. ESTIMATED BLOOD LOSS: 5 mL. DRAINS LEFT IN PLACE: Include a 6-Angolan x 26-cm left-sided loop ureteral stent in good position on fluoroscopy. SPECIMENS SENT TO PATHOLOGY: Left ureteral stone fragments for chemical analysis. FINDINGS: Moderate stone burden in the distal ureter at the level of the vessels on the left hand side, no residual stones after completion of case, no ureteral injury or tears, good stent position on completion on fluoroscopy and direct visualization within the bladder. BRIEF HISTORY: Mr. Ye is a 57-year-old female, known to our service, has been seen just yesterday for pain from left ureteral stone by Dr. Camargo in our office. After worsening symptoms and intractable symptomatology, she has been admitted for pain control. Imaging demonstrated persistence of her distal left ureteral stone. After discussion of risks and benefits of various forms of management, she has decided upon endoscopic management. Please see urology consultation for further details. SCDs were used for DVT prophylaxis and intravenous ciprofloxacin for IV antibiotic coverage. DESCRIPTION OF PROCEDURE: The patient was properly identified and brought to the operative suite. After identification of appropriate consent on the chart, general anesthesia with laryngeal mask was initiated. The patient was prepped and draped in standard fashion for this procedure. full time staff interpreter-out procedure was followed. A 22-Angolan rigid cystoscope was passed into the bladder under direct visualization and bladder was surveyed in its entirety, demonstrating no intravesical lesions, papillary masses, or calculi. Left-sided ureteral orifice was noted to be somewhat patulous. Both were in the normal anatomic position. Left-sided ureteral orifice was cannulated using an open-ended catheter and gentle retrograde pyelography was performed. This demonstrated normal distal ureter, filling defect approximately at the level of the vessels with proximal hydroureteronephrosis. A sensor tip wire was advanced to the level of the left renal pelvis and kept until the end of the case as a safety wire. Bladder was drained and cystoscope was removed. A left semi-rigid ureteroscope was advanced into the ureter without difficulties or the need for dilation up to the level of the stone. A 500 micron laser fiber was used to fragment the stone into smaller pieces amenable for a basket stone removal using a 0 tip nitinol basket. These were brought out and placed within the bag for retrieval at the end of the case. After the ureteral stone was broken into sufficiently small fragments for removal, the semi-rigid ureteroscope was advanced into the mid ureter and complete exit ureteroscopy was performed. This demonstrated no residual stones, no evidence of ureteral tears or injuries. No stone burden was appreciated or retropulsed up into the ureter on intraoperative fluoroscopy. After ureteroscopy was performed, cystoscope was backloaded over the safety wire and a 6-Angolan x 26-cm loop stent was advanced with a full coil present at the level of the left kidney and redundant loops being present within the bladder. Hydronephrotic drip was appreciated. Stone fragments were irrigated free from the bladder and sent for chemical analysis. Bladder was drained and the anesthesia was reversed. The patient was transferred to the ICU for recovery, seeing at the weekend hours. FOLLOWUP CARE: The patient will be discharged home after recovery today if she is tolerating a regular diet. Prescription for pain medication has been recently provided and Pyridium and ciprofloxacin are also provided for postoperative analgesia. Electronic task sent to contact the patient for cystoscopy and stent removal in approximately 1 week's time. The patient is instructed to contact our service should she note any fevers, chills, nausea, vomiting or other significant difficulties in the postoperative period. I attest to the content of the Intraoperative Record and any orders documented therein. Any exceptions are noted below. DINA
[2017-09-25] MEDS ORDERED: CIPROFLOXACIN 400MG / 200ML D5W IV ONE (06:00)
[2017-09-25 08:14] VITALS: Ht 162.6 cm; Wt 72.2 kg
== END 2017-09-24 17:37 | disposition home or self-care (01) ==
LOC: C.EDB 10:55 → C.MSN 13:52 → ENRESERV 14:29
PROVIDERS: ADMIT Internal Medicine; ATTEND Internal Medicine
DX: N20.1 Calculus of ureter (principal); N23 Unspecified renal colic; E11.9 Type 2 diabetes mellitus without complications; I10 Essential (primary) hypertension; F32.9 Major depressive disorder, single episode, unspecified; K76.0 Fatty (change of) liver, not elsewhere classified; E66.9 Obesity, unspecified; E78.00 Pure hypercholesterolemia, unspecified; K21.9 Gastro-esophageal reflux disease without esophagitis; F17.200 Nicotine dependence, unspecified, uncomplicated; Z79.82 Long term (current) use of aspirin; Z88.0 Allergy status to penicillin; Z87.442 Personal history of urinary calculi; Z83.3 Family history of diabetes mellitus; Z84.1 Family history of disorders of kidney and ureter; Z90.49 Acquired absence of other specified parts of digestive tract; Z90.710 Acquired absence of both cervix and uterus; Z90.89 Acquired absence of other organs; Z96.41 Presence of insulin pump (external) (internal)

== ENCOUNTER → 2017-09-23 | Outpatient (CLI) | payer BC, OTHER ==
[~2017-09-23] MED LIST changes: +CIPR-255 PO; +INSPMPNVLG; -INSUINJ14 SC; -INSUINJ4 SQ; +LSN/10125 PO; +MIRT30TA2 PO; +ONDA4TAB10 SL; +OXYC-57 PO; +PHEN-775 PO; -RMR15 PO; +TAMS0.4C38 PO
--- NOTE | 2017-09-23 08:20 | DIAGNOSTIC IMAGING REPORT ---
KUB CLINICAL HISTORY: Nephrolithiasis. FINDINGS: An AP supine abdominal radiograph is compared to study dated 10/09/2013 and correlated with abdominal CT dated 09/22/2017. There is a nonobstructed abdominal bowel gas pattern noting moderate colonic fecal retention. Cholecystectomy clips are seen in the right upper quadrant. A 7 mm calcification in the left hemipelvis likely represents an obstructing distal ureteral calculus when correlated with yesterday's abdominal CT scan. Numerous additional small nonobstructing calculi project over both kidneys. Vascular calcifications are also seen in the pelvis. The bony structures appear intact. 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 IMPRESSION: 1. A 7 mm calcification in the left hemipelvis likely represents an obstructing distal left ureteral stone when correlated with yesterday's CT scan. 2. Numerous additional small nonobstructing renal calculi are present in both kidneys. 3. 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 Electronically signed by: Hunter Martinez M.D. 09/23/2017 8:19 AM Dictated Date/Time: 09/23/2017 8:16 AM
== END | disposition home or self-care (01) ==
LOC: C.RAD 07:58
PROVIDERS: ATTEND Nurse Practitioner Adult Health
DX: N20.0 Calculus of kidney (principal)

== ENCOUNTER → 2017-10-07 | Outpatient (CLI) | payer BC, OTHER ==
[~2017-10-07] MED LIST changes: +CIPR-255 PO; -MoRPHine SULFATE 10 MG/ML CARP/VIAL ONE; -ONDANSETRON INJ 2 MG/ML 2 ML VIAL ONE; -TAMS0.4C38 PO
--- NOTE | 2017-10-07 08:45 | DIAGNOSTIC IMAGING REPORT ---
KUB CLINICAL HISTORY: N20.0 Nephrolithiasis COMPARISON STUDY: 09/23/2017 FINDINGS: There are multiple bilateral intrarenal calculi. Since the prior study, a left-sided neck ureteral stent has been placed. There is no pathologic bowel dilatation. The previously identified distal left ureteral calculus is no longer visualized. There is a linear calcification just medial to the distal stent. This likely is extra ureteral. IMPRESSION: 1. Bilateral nephrolithiasis 2. Interval insertion of a left-sided nephroureteral stent Electronically signed by: Justus Noriega M.D. 10/07/2017 8:43 AM Dictated Date/Time: 10/07/2017 8:41 AM
== END | disposition home or self-care (01) ==
LOC: C.RAD 08:06
PROVIDERS: ATTEND Urology
DX: N20.0 Calculus of kidney (principal); Z96.0 Presence of urogenital implants

== ENCOUNTER → 2017-11-04 | Outpatient (CLI) | payer BC, OTHER ==
[2017-11-04 11:40] LABS: HEMOGLOBIN A1C 8.1 % (4.5-5.6)
[2017-11-04 11:52] LABS: ALBUMIN 3.5 gm/dl (3.4-5.0); BLOOD UREA NITROGEN 25 mg/dl (7-18); CALCIUM 8.8 mg/dl (8.5-10.1); CARBON DIOXIDE 29 mmol/L (21-32); CREATININE 0.98 mg/dl (0.60-1.20); GLUCOSE 246 mg/dl (70-99); POTASSIUM 3.4 mmol/L (3.5-5.1); SODIUM 136 mmol/L (136-145)
[2017-11-04 12:04] LABS: ALKALINE PHOSPHATASE 107 U/L (45-117); ALT/SGPT 44 U/L (12-78); AST/SGOT 32 U/L (15-37); CHOLESTEROL 264 mg/dl (0-200); TOTAL PROTEIN 7.7 gm/dl (6.4-8.2)
== END | disposition home or self-care (01) ==
LOC: C.LABBC 07:26
PROVIDERS: ATTEND Nurse Practitioner Family
DX: E11.9 Type 2 diabetes mellitus without complications (principal); Z79.4 Long term (current) use of insulin

== ENCOUNTER 2019-02-11 02:22 | Inpatient (IN) ==
--- OUTSIDE RECORDS SUMMARY | 2019-02-11 02:24 | External Medical Summary | Continuity of Care Document ---
:1960 Author Name Davon Hall, Provider Address Unavailable Unavailable , Care Team Providers Name Role Phone Rosario Herbert PA-C Unavailable [email or web address] Itzel Winchester PA-C Unavailable [email or web address] Charles [email or web address] Unavailable [email or web address] Bianca RUTLEDGE Unavailable [email or web address] Tae RAE M.D. Unavailable Unavailable Leonila WHITEHEAD Unavailable Unavailable Itzel Cota Unavailable [email or web address] Unavailable Unavailable Unavailable Problems Diabetes mellitus type 2, uncontrolled, without compli cations (250.02) (E11.65) Gastroenteritis (558.9) (K52.9) Diarrhea (787.91) (R19.7) Migraine headache (346.90) (G43.909) Nausea (787.02) (R11.0) Critical Stress History (V62.89) Irritable bowel syndrome (564.1) (K58.9) Orthostatic hypotension (458.0) (I95.1) Fibrosis of uterus (621.8) (N85.8) Dysphagia (787.20) (R13.10) Nephrolithiasis (592.0) (N20.0) Postoperative anemia due to acute blood loss (285.1) (D62) Hypertension (401.9) (I10) Dyslipidemia (272.4) (E78.5) Hyperlipidemia (272.4) (E78.5) Insulin pump titration (V53.91) (Z46.81) Type 2 diabetes mellitus, with long-term current use of insulin (250.00) (E11.9) Headache (784.0) (R51) Head concussion (850.9) (S06.0X9A) Reactive airway disease (493.90) (J45.909) Hypokalemia (276.8) (E87.6) Current smoker (305.1) (F17.200) Leukocytosis (288.60) (D72.829) Current tobacco use (305.1) (Z72.0) Cough (786.2) (R05) Vulvovaginitis (616.10) (N76.0) Fatty (change of) liver, not elsewhere classified (571.8) (K 76.0) Acute upper respiratory infection (465.9) (J06.9) Depression (311) (F32.9) Left hip pain (719.45) (M25.552) Allergies and Adverse Reactions atorvastatin (Allergy) Aygestin TABS (Allergy) Lopid TABS (Allergy) Penicillins (Allergy) Reaction: Hives Ultram TABS (Allergy) Medications Aspirin 81 MG TABS; Take 1 tablet daily Refills: 0 Mirtazapine 30 MG Oral Tablet; take 1 tablet by mouth once daily at bedtime MATY Herbert Start: 17-Apr-2018 Quantity: 90 Refills: 3 Venlafaxine HCl ER 150 MG Oral Capsule E xtended Release 24 Hour; TAKE 2 CAPSULES DAILY. MATY Herbert Start: 18-Oct-2018 Quantity: 60 Refills: 3 Lisinopril-hydroCHLOROthiazide 10-12.5 M G Oral Tablet; TAKE 1 TABLET BY MOUTH ONCE DAILY IN THE MORNING MATY Winchester Start: 15-Dec-2018 Quantity: 30 Refills: 11 FreeStyle Test In Vitro Strip; Test 6 times a day GERRY Soto NP Start: 04-Apr-2017 Quantity: 2 100 Strip Box Refills: 11 FreeStyle Lancets; Test 6 times daily WANDA Soto art: 06-Jun-2017 Quantity: 2 100 Unit Box Refills: 11 NovoLOG 100 UNIT/ML Subcutaneous Solutio n; FOR USE WITH INSULIN PUMP 100 UNITS PER DAY WANDA Soto Start: 03-Apr-2018 Quantity: 9 10 ML Vial Refills: 3 Procedures History of Cholecystectomy Status: Compl eted History of Tubal Ligation Status: Comple mariano History of Tonsillectomy Status: Complet ed History of Total Abdominal Hysterectomy With Removal Of Both Status: Completed Ovaries History of Cystoscopy With Insertion Of Ureteral Stent Status: Completed History of Renal Lithotripsy Status: Com pleted History of hysterectomy Status: Complete d Immunizations Fluzone INJ On: 26-Jul-2012 10:14 Lot #: [id number], [employer] Pneumococcal polysaccharide vaccine, 23 valent On: 3 10:57 Lot #: [id number], [employer] Influenza Comments:Declined 03/14/2014 Influenza On: 19-Jul-2014 13:35 Lot #: [id number], [employer] Influenza On: 23-Jun-2016 Lot #: [id number], [employer] Influenza On: Sep-2017 Family History Sister Family history of Cancer Status: Active Family history of Family Health Status Of Sister - Status: Active Family history of malignant neoplasm (V16.9) (Z80.9) Status: Active Brother Family history of Diabetes Mellitus (V18.0) Status: Active Mother Family history of Heart Disease (V17.49) Status: Active Family history of Family Health Status Of Mother - Status: Active Family history of kidney stones (V18.69) (Z84.1) Status: Act jong Father Family history of Heart Disease (V17.49) Status: Active Family history of Diabetes Mellitus (V18.0) Status: Active Family history of Family Health Status Of Father - Status: Active Unknown Family Member Family history of Diabetes Mellitus (V18.0) Status: Active Comments: Family History Social History - Smoking Status Smoker. current status unknown Plan of Treatment Planned Encounters Appointment; Melanie Valenzuela PA-C Start: 04-Apr-2019 8:30 R equest Planned Observations Planned Goals not documented Results No Known Results Results not documented Encounters Appointment; Melanie Valenzuela PA-C 01-Nov-2018 8:30 Encounter Diagnosis: Problem not documented Appointment; Natalia Manriquez CRNP 03-Aug-2018 11:30 Encounter Diagnosis: Problem not documented Appointment; Korin Soto CRNP 09-May-2018 8:45 Encounter Diagnosis: Problem not documented Appointment; Rosario Herbert PA-C 24-Feb-2018 16:00 Encounter Diagnosis: Problem not documented Appointment; Korin Soto CRNP 07-Nov-2017 16:15 Encounter Diagnosis: Problem not documented Appointment; Brendon Camargo M.D. 07-Oct-2017 9:40 Encounter Diagnosis: Problem not documented Appointment; Urology, Room 7 07-Oct-2017 9:30 Encounter Diagnosis: Problem not documented Appointment; Brendon Camargo M.D. 23-Sep-2017 9:40 Encounter Diagnosis: Problem not documented Appointment; Korin Soto CRNP 06-Jun-2017 17:45 Encounter Diagnosis: Problem not documented Appointment; Melanie Valenzuela PA-C 04-Apr-2019 8:30 Encounter Diagnosis: Problem not documented
[2019-02-11] MEDS ORDERED: ONDANSETRON INJ 2 MG/ML 2 ML VIAL IV STA (02:48)
[2019-02-11] MEDS ORDERED: SODIUM CHLORIDE 0.9% 1000ML 1,000 ML IV ONE (02:48)
[2019-02-11] MEDS ORDERED: MoRPHine SULFATE 4 MG/ML 1 ML CARP\\VIAL IV STA (02:48)
[2019-02-11] MEDS: KETOROLAC 30 MG/ML VIAL IV STA (02:52)
[2019-02-11 03:06] LABS: Basophils # (auto) 0.04 K/uL (0-0.2); Basophils % (auto) 0.3 %; Eosinophils # (auto) 0.22 K/uL (0-0.5); Eosinophils % (auto) 1.7 %; Hemoglobin 12.6 g/dL (12.0-16.0); Immature Granulocytes # (auto) 0.04 K/uL (0.00-0.02); Immature Granulocytes % (auto) 0.3 %; Lymphocytes % (auto) 23.5 %; Mean Corpuscular Volume 84.7 fL (80-100); Mean Platelet Volume 10.4 fL (7.4-10.4); Monocytes # (auto) 0.82 K/uL (0.11-0.59); Monocytes % (auto) 6.4 %; Neutrophils # (auto) 8.63 K/uL (1.4-6.5); Neutrophils % (auto) 67.8 %; Platelet Count 220 K/uL (130-400); RDW Coefficient of Variation 13.6 % (11.5-14.5); RDW Standard Deviation 41.8 fL (36.4-46.3); Red Blood Count 4.25 M/uL (4.2-5.4); White Blood Count 12.75 K/uL (4.8-10.8)
[2019-02-11 03:12] LABS: Appearance Urine Turbid (Clear); Bacteria Urine Automated Negative (Negative); Bilirubin Urine Negative (Negative); Blood Urine Trace (Negative); Color Urine Yellow; Epithelial Cell Urine Auto >30 /lpf (0-5); Glucose Urine UA 2+ (Negative); Ketones Urine Negative (Negative); Leukocyte Esterase Urine 3+ (Negative); Nitrite Urine Positive (Negative); Urobilinogen Urine Negative (Negative); WBC Urine Automated >30 /hpf (0-5); pH Urine 7.5 (4.5-7.5)
[2019-02-11 03:13] LABS: Protein Urine Trace (Negative)
[2019-02-11 03:13] LABS: BUN Creatinine Ratio 16.8 (10-20); Blood Urea Nitrogen 17 mg/dl (7-18); Calcium 8.8 mg/dl (8.5-10.1); Carbon Dioxide 27 mmol/L (21-32); Chloride 102 mmol/L (98-107); Est GFR (African American) 70.6; Est GFR (Non-African American) 60.9; Glucose 287 mg/dl (70-99); Potassium 3.4 mmol/L (3.5-5.1); Sodium 136 mmol/L (136-145)
[2019-02-11] MEDS ORDERED: cefTRIAXone SODIUM 1,000 MG/50 ML BAG IV STA (03:46)
[2019-02-11] MEDS ORDERED: SODIUM CHLORIDE 0.9% 500 ML IV SCH (04:15)
--- NOTE | 2019-02-11 04:49 | History & Physical Report ---
Date of Service February 11, 2019 Assessment & Plan (1) Left ureteral stone: Left ureteral stone with mild left hydronephrosis- NPO NSS + KCl 20 mEq 150 mils per hour Follow urine culture and sensitivity Given ceftriaxone 1 g IV in the ED Placed on Cipro 400 mg IV every 12 hours. Zofran 4 mg IV every 6 hours PRN. Acetaminophen 1 g IV every 8 hours as needed mild pain or temperature. Dilaudid 0.2 mg IV every 3 hours as needed severe pain. Famotidine 20 mg IV every 12 hours. Consult her urologists Dr. Fuchs/Weston Present on Admission?: Yes (2) Hyperglycemia: Hyperglycemia due to diabetes mellitus- Since patient will be n.p.o., hold her usual dosages of long-acting insulin. Placed on Accu-Cheks before meals and at bedtime with NovoLog coverage per scale. Check hemoglobin A1c. Present on Admission?: Yes (3) Hypertension: No meds noted and med rec. Follow vital signs per protocol. Present on Admission?: Yes (4) Diabetes: See above. Present on Admission?: Yes (5) Depression: Holding venlafaxine while n.p.o. Resume after decision regarding procedure Present on Admission?: Yes History of Present Illness Chief Complaint: Patient presents to the emergency department with acute onset today of left sided abdominal pelvic discomfort, which she reports she has been feeling lower toward her pelvis and groin as the day has progressed. Primary Care Provider: Brendon Farfan MD The patient is a 58-year-old female with a past medical history including diabetes mellitus, hypertension, multiple previous ureteral stones with some requiring stent placement, who presents to the emergency department with her usual symptoms of left-sided abdominal pain, which she notes has become progressively lowered toward her groin and pelvis as time is gone on. She does also note some intermittent nausea, and progressive fatigue. Allergies Allergy/AdvReac Type Severity Reaction Status Date / Time Penicillins Allergy Unknown Hives Verified 08/14/18 01:48 Home Medications Home Medications Medication Instructions Recorded Confirmed Type venlafaxine [Effexor XR] 300 tab PO HS 07/10/18 08/14/18 History acetaminophen [Tylenol Extra 1,000 mg PO Q8 08/14/18 08/14/18 History Strength] ferrous sulfate 324 mg PO BIDM 08/14/18 08/14/18 History insulin aspart U-100 [Novolog 0 unit CONTINUOUS SUBCUTANEOUS 08/14/18 08/14/18 History U-100 Insulin aspart] INFUSION CONT tramadol 50 mg PO Q6 PRN 08/14/18 08/14/18 History Past Med/Surg History Medical History Avascular necrosis L HIP Diabetes mellitus type 1 Hyperlipidemia Hypertension Insomnia Kidney stones FOLLOWS WITH DR FUCHS Surgical History History of tonsillectomy and adenoidectomy Hx laparoscopic cholecystectomy Hx of colonoscopy Hx of total hysterectomy Hx of tubal ligation Hx of wisdom tooth extraction Social History Preferred Language: Kiswahili Communication Ability: Effective Visual Impairment: No Limitations Beliefs That Will Affect Care: None Current Living Situation: Other Current Living Situation Comment: DAUGHTER AND DAUGHTER'S 3 KIDS Feels Safe at Home: Yes Smoking Status: Current every day smoker Tobacco Type: cigarettes Cigarettes Per Day: 4-6 CIGS PER DAY, x 40 yrs Hx Alcohol Use: No Hx Substance Use: No Review of Systems Review of Systems: The patient denies chest pain, palpitations, shortness of breath, dyspnea on exertion, cough, lower extremity swelling, sore throat, fevers, chills, sweats, vomiting, diarrhea , constipation, blood in urine or stool, dysuria, urinary frequency or urgency, lightheadedness, dizziness, headache, memory loss, loss of consciousness, rash, abnormal bruising or bleeding, imbalance, focal or generalized weakness, numbness or tingling in arms or legs, generalized arthralgias or myalgias, back or neck pain, or night sweats. The review of systems is otherwise negative other than for that already noted above, and at least 10 systems have been reviewed. Physical Exam Physical Exam: The patient is awake, alert and oriented 3, well developed and well nourished, normocephalic and atraumatic, lying in bed and in no acute distress. HEENT--PERRL, EOMI, mucous membranes and oropharynx dry. Neck--supple. No JVD. No bruits. Thyroid normal, trachea midline, no adenopathy. Heart--normal S1 and S2. No murmurs, rubs or gallops. Lungs--clear bilaterally, no respiratory distress, no accessory muscle use. Abdomen--normal bowel sounds and soft. Nontender. Nondistended. Extremities--no cyanosis or clubbing. No edema. There are good distal pulses b/l. Dermatologic--normal skin turgor, normal color, no abnormal lymph nodes, no rash. Neurologic--cranial nerves II through XII grossly intact. Rheumatologic--normal range of motion. Psychiatric--normal affect. Results & Data Vital Signs (Past 12 Hours) Vital Signs Temp Pulse Pulse Resp BP BP Pulse Ox 02/11/19 03:12 93 H 18 141/83 H 94 02/11/19 02:30 98.2 F 74 18 138/89 99 Laboratory Results Laboratory Results WBC 12.75 K/uL (4.8-10.8) H 02/11/19 02:41 RBC 4.25 M/uL (4.2-5.4) 02/11/19 02:41 Hgb 12.6 g/dL (12.0-16.0) 02/11/19 02:41 Hct 36.0 % (37-47) L 02/11/19 02:41 MCV 84.7 fL (80-100) 02/11/19 02:41 MCH 29.6 pg (25-34) 02/11/19 02:41 MCHC 35.0 g/dL (32-36) 02/11/19 02:41 RDW Std Deviation 41.8 fL (36.4-46.3) 02/11/19 02:41 RDW Coeff of Jun 13.6 % (11.5-14.5) 02/11/19 02:41 Plt Count 220 K/uL (130-400) 02/11/19 02:41 MPV 10.4 fL (7.4-10.4) 02/11/19 02:41 Immature Gran % (Auto) 0.3 % 02/11/19 02:41 Neut % (Auto) 67.8 % 02/11/19 02:41 Lymph % (Auto) 23.5 % 02/11/19 02:41 [place] % (Auto) 6.4 % 02/11/19 02:41 Eos % (Auto) 1.7 % 02/11/19 02:41 Baso % (Auto) 0.3 % 02/11/19 02:41 Immature Gran # (Auto) 0.04 K/uL (0.00-0.02) H 02/11/19 02:41 Neut # (Auto) 8.63 K/uL (1.4-6.5) H 02/11/19 02:41 Lymph # (Auto) 3.00 K/uL (1.2-3.4) 02/11/19 02:41 [place] # (Auto) 0.82 K/uL (0.11-0.59) H 02/11/19 02:41 Eos # (Auto) 0.22 K/uL (0-0.5) 02/11/19 02:41 Baso # (Auto) 0.04 K/uL (0-0.2) 02/11/19 02:41 Sodium 136 mmol/L (136-145) 02/11/19 02:41 Potassium 3.4 mmol/L (3.5-5.1) L 02/11/19 02:41 Chloride 102 mmol/L (98-107) 02/11/19 02:41 Carbon Dioxide 27 mmol/L (21-32) 02/11/19 02:41 7.0 (3-11) 02/11/19 02:41 BUN 17 mg/dl (7-18) 02/11/19 02:41 1.01 mg/dl (0.6-1.2) 02/11/19 02:41 Est Cr Clr Drug Dosing Not Reportable 02/11/19 02:41 Est GFR ( Amer) 70.6 02/11/19 02:41 Est GFR (Non-Af Amer) 60.9 02/11/19 02:41 16.8 (10-20) 02/11/19 02:41 Glucose 287 mg/dl (70-99) H 02/11/19 02:41 Calcium 8.8 mg/dl (8.5-10.1) 02/11/19 02:41 Yellow 02/11/19 02:58 Turbid (Clear) A 02/11/19 02:58 7.5 (4.5-7.5) 02/11/19 02:58 Ur Specific [place] 1.020 (1.000-1.030) 02/11/19 02:58 Trace (Negative) H 02/11/19 02:58 2+ (Negative) H 02/11/19 02:58 Negative (Negative) 02/11/19 02:58 Trace (Negative) H 02/11/19 02:58 Positive (Negative) A 02/11/19 02:58 Negative (Negative) 02/11/19 02:58 Negative (Negative) 02/11/19 02:58 Ur Leukocyte Esterase 3+ (Negative) H 02/11/19 02:58 >30 /hpf (0-5) H 02/11/19 02:58 10-30 /hpf (0-4) H 02/11/19 02:58 U Hyaline Cast (Auto) 1-5 /lpf (0-5) 02/11/19 02:58 U Epithel Cells (Auto) >30 /lpf (0-5) H 02/11/19 02:58 Negative (Negative) 02/11/19 02:58 Diagnostic Findings [facility] Patient: DULCE HUDSON (Female) Age: 58 MR #: [id number] Status: ER Date: 02/11/19 03:11 Slices: 527 History: LEFT SIDE PAIN, HISTORY OF STONES, NO HEMATURIA Priors: Tech: Sadaf Vargas @ [phone] Exams: CT ABDOMEN & PELVIS Without Contrast Accession Numbers: [id number] Preliminary Findings Only See Final Report For Complete Findings CT ABDOMEN & PELVIS Without Contrast: Comparison: CT abdomen and pelvis 08/14/18 3 mm stone in left distal ureter and there is mild left hydroureteronephrosis. Additional nonobstructing renal stones bilaterally. Liver is mildly enlarged and demonstrates nodular contour, consistent with cirrhosis. Post cholecystectomy. Post-hysterectomy. Normal appendix. No free air or free fluid. Left total hip arthroplasty. Atherosclerotic calcifications. Radiologist: Hugo Garcia MD Study ready at 03:14 and initial results transmitted at 03:31 *This report constitutes a preliminary interpretation only. Non-acute findings felt to be unrelated to the clinical presentation may not be discussed in this report. The study will be interpreted and a final report will be generated by the local Radiologist the following shift. To reach the hospital radiology department call [phone]. If a discrepancy is found between the preliminary and final interpretations of this study, please notify us via our Client Portal at [email or web address] under QA Exams. You can also fax this report with a description of the discrepancy, or include the final report, to our daytime fax number [phone]. If faxing, please indicate the severity of discrepancy using one of the following categories: [ ] 1 - Agree/Informational [ ] 2 - Unlikely to Affect Management [ ] 3 - Possible Eventual Change of Management [ ] 4 - Probable Immediate Change of Management For all other patient related information, please fax us at [phone]. Code Status & VTE Plan Code Status Full code VTE Prophylaxis Plan VTE Prophylaxis will be ordered: Yes (1) Hypertension Hypertension type: essential hypertension Qualified Code(s): I10 - Essential (primary) hypertension (2) Diabetes Diabetes mellitus type: type 1 Diabetes mellitus complication status: with unspecified complications Qualified Code(s): E10.8 - Type 1 diabetes mellitus with unspecified complications (3) Depression Depression Type: unspecified Qualified Code(s): F32.9 - Major depressive disorder, single episode, unspecified
--- NOTE | 2019-02-11 05:03 | Emergency Department Note ---
Entered by Alana Pringle acting as a scribe for History of Present Illness General Chief complaint: Kidney Stone Stated complaint: KIDNEY STONE Time Seen by Provider: 02/11/19 02:38 Source: patient Limitations: no limitations History of Present Illness Onset (ago): hour(s) 5 Location: back (left flank) Severity: severe and similar to prior episodes Pain Consistency: + constant Maximum Pain Intensity: 10 Quality: + other (pain) Associated symptoms: + nausea/vomiting (denies vomiting) and + other (dysuria, not passing any BMs) The patient is a 58 year old female who presents to the ED complaining of severe constant left flank pain that began yesterday evening at 2200. She notes that it is similar to her previous episodes of kidney stones, stating that her last kidney stone was 7 months ago. The patient reports that she was able to pass her last kidney stone, and she saw Dr. Fuchs. She complains of dysuria all day yesterday and not passing any BMs yesterday. The patient denies any vomiting, but she notes that she was dry-heaving. She notes a history of diabetes and hypertension. Home Medications Home Medications Medication Instructions Recorded Confirmed Type venlafaxine [Effexor XR] 300 tab PO HS 07/10/18 08/14/18 History acetaminophen [Tylenol Extra 1,000 mg PO Q8 08/14/18 08/14/18 History Strength] insulin aspart U-100 [Novolog 0 unit CONTINUOUS SUBCUTANEOUS 08/14/18 08/14/18 History U-100 Insulin aspart] INFUSION CONT Allergies Allergy/AdvReac Type Severity Reaction Status Date / Time Penicillins Allergy Unknown Hives Verified 08/14/18 01:48 Past Med/Surg History Medical History Avascular necrosis L HIP Diabetes mellitus type 1 Hyperlipidemia Hypertension Insomnia Kidney stones FOLLOWS WITH DR FUCHS Surgical History History of tonsillectomy and adenoidectomy Hx laparoscopic cholecystectomy Hx of colonoscopy Hx of total hysterectomy Hx of tubal ligation Hx of wisdom tooth extraction Social History Preferred Language: Italian Communication Ability: Effective Visual Impairment: No Limitations Beliefs That Will Affect Care: None Current Living Situation: Other Current Living Situation Comment: DAUGHTER AND DAUGHTER'S 3 KIDS Feels Safe at Home: Yes Smoking Status: Current every day smoker Tobacco Type: cigarettes Cigarettes Per Day: 4-6 CIGS PER DAY, x 40 yrs Hx Alcohol Use: No Hx Substance Use: No Review of Systems See HPI for pertinent positives & negatives. and A total of 10 systems reviewed and were otherwise negative Physical Exam Vital Signs Vital Signs - 24 hr 02/11/19 02:30 02/11/19 03:12 Temperature 36.8 C Temperature Source Oral Sepsis Recent Fever Within 48 Hours No Sepsis New/Unexplained Change in Mental Status No Sepsis Action Taken by Nursing No Action Required Pulse Rate 74 Pulse Rate [Right Finger] 93 H Pulse Rhythm [Right Finger] Regular Respiratory Rate 18 18 Respiratory Effort / Characteristics Non-Labored Spontaneous Respiratory Depth Normal Respiratory Pattern Regular Blood Pressure 138/89 Blood Pressure [Left Arm] 141/83 H Blood Pressure Mean 105 Blood Pressure Mean [Left Arm] 102 Pulse Oximetry 99 94 Oxygen Delivery Method Room Air Room Air HEENT: Head - normocephalic and atraumatic Pupils are equal, round, and reactive to light. Extraocular eye muscles are intact, and sclera are anicteric. Nose - moist nasal mucosa without discharge. Mouth - moist buccal mucosa. Oropharynx is nonerythematous and there is no tonsillar exudate or edema noted. Neck: Supple; no JVD, nuchal rigidity, cervical lymphadenopathy, or auscultated bruits. Heart: Tachycardic rate and regular rhythm. There is a normal S1 and S2 with no murmurs, clicks, or gallops appreciated. Lungs: Clear to auscultation bilaterally with no wheezes, rales, or rhonchi. Abdomen: Soft, completely nontender, nondistended, with good bowel sounds. There are no palpable pulsatile masses or hepatosplenomegaly. There is no guarding, rigidity, or rebound noted. Left CVA tenderness. Extremities: No evidence of cyanosis, clubbing, or edema. There are easily palpable peripheral pulses. Skin: warm with good turgor and no rashes. Pale and diaphoretic. Course 0243: The patient was evaluated in room A09. A complete history and physical exam was performed. A saline lock was initiated and labs were drawn as above. Previous electronic medical records were reviewed. 0248: Zofran 4 mg IV, NSS 1000 mL IV, Morphine Sulfate 4 mg IV, Toradol 30 mg IV. The patient will go for CT scan of the abdomen/pelvis. 0329: I reevaluated the patient, and she said that she was comfortable. I reviewed the results of the CT scan as well as laboratory studies. 0346: Rocephin 1000 mg in 50 ml IV 0354: I spoke with Dr. Stevens, [facility] hospitalist, about the patients case. He will further evaluate the patient. 0359: I spoke with the patient, and she stated that she was still comfortable. Consultations Consultation #1: I spoke with Dr. Stevens, [facility] hospitalist, about the p atients case. He will further evaluate the patient. Time: 03:54 Administered Medications Discontinued Medications Sodium Chloride (Nss 1000ml) 1,000 mls @ 999 mls/hr IV .Q1H1M ONE Stop: 02/11/19 03:48 Last Infusion: 02/11/19 04:00 Dose: 0 mls/hr Documented by: [id number] Admin: 02/11/19 02:55 Dose: 999 mls/hr Documented by: [id number] Ceftriaxone Sodium (Rocephin) 1,000 mg in 50 mls @ 100 mls/hr IV NOW STA Stop: 02/11/19 04:15 Last Infusion: 02/11/19 04:39 Dose: 0 mls/hr Documented by: [id number] Admin: 02/11/19 03:58 Dose: 100 mls/hr Documented by: [id number] Ketorolac Tromethamine (Toradol) 30 mg IV NOW STA Stop: 02/11/19 02:49 Last Admin: 02/11/19 02:52 Dose: 30 mg Documented by: [id number] Admin: 02/11/19 02:52 Dose: 30 mg Documented by: [id number] Morphine Sulfate (Morphine Sulfate) 4 mg IV NOW STA Stop: 02/11/19 02:49 Last Admin: 02/11/19 02:55 Dose: 4 mg Documented by: [id number] Ondansetron HCl (Zofran) 4 mg IV NOW STA Stop: 02/11/19 02:49 Last Admin: 02/11/19 02:52 Dose: 4 mg Documented by: [id number] Medical Decision Making Differential Diagnosis The differential diagnosis includes: infected kidney stone, pyelonephritis, and ureteral colic. Medical Records Attestation: I reviewed the patient's medical records. Home Medications Current Medication List: was personally reviewed by me Laboratory Data Attestation: I reviewed the patient's lab results. Result diagrams: 02/11/19 02:41 02/11/19 02:41 Lab Results 02/11/19 02/11/19 02/11/19 Range/Units 02:41 02:41 02:58 WBC 12.75 H (4.8-10.8) K/uL RBC 4.25 (4.2-5.4) M/uL Hgb 12.6 (12.0-16.0) g/dL Hct 36.0 L (37-47) % MCV 84.7 (80-100) fL MCH 29.6 (25-34) pg MCHC 35.0 (32-36) g/dL RDW Std Deviation 41.8 (36.4-46.3) fL RDW Coeff of Jun 13.6 (11.5-14.5) % Plt Count 220 (130-400) K/uL MPV 10.4 (7.4-10.4) fL Immature Gran % (Auto) 0.3 % Neut % (Auto) 67.8 % Lymph % (Auto) 23.5 % [place] % (Auto) 6.4 % Eos % (Auto) 1.7 % Baso % (Auto) 0.3 % Immature Gran # (Auto) 0.04 H (0.00-0.02) K/uL Neut # (Auto) 8.63 H (1.4-6.5) K/uL Lymph # (Auto) 3.00 (1.2-3.4) K/uL [place] # (Auto) 0.82 H (0.11-0.59) K/uL Eos # (Auto) 0.22 (0-0.5) K/uL Baso # (Auto) 0.04 (0-0.2) K/uL Sodium 136 (136-145) mmol/L Potassium 3.4 L (3.5-5.1) mmol/L Chloride 102 (98-107) mmol/L Carbon Dioxide 27 (21-32) mmol/L Anion Gap 7.0 (3-11) BUN 17 (7-18) mg/dl Creatinine 1.01 (0.6-1.2) mg/dl Est Cr Clr Drug Dosing Not Reportable Est GFR ( Amer) 70.6 Est GFR (Non-Af Amer) 60.9 BUN/Creatinine Ratio 16.8 (10-20) Glucose 287 H (70-99) mg/dl Calcium 8.8 (8.5-10.1) mg/dl Urine Color Yellow Urine Appearance Turbid A (Clear) Urine pH 7.5 (4.5-7.5) Ur Specific [place] 1.020 (1.000-1.030) Urine Protein Trace H (Negative) Urine Glucose (UA) 2+ H (Negative) Urine Ketones Negative (Negative) Urine Blood Trace H (Negative) Urine Nitrite Positive A (Negative) Urine Bilirubin Negative (Negative) Urine Urobilinogen Negative (Negative) Ur Leukocyte Esterase 3+ H (Negative) Urine WBC (Auto) >30 H (0-5) /hpf Urine RBC (Auto) 10-30 H (0-4) /hpf U Hyaline Cast (Auto) 1-5 (0-5) /lpf U Epithel Cells (Auto) >30 H (0-5) /lpf Urine Bacteria (Auto) Negative (Negative) Imaging Data Radiologist's Impression: Radiology results as stated below per my review and the radiologist's interpretation: CT ABDOMEN & PELVIS Without Contrast: Comparison: CT abdomen and pelvis 08/14/18 3 mm stone in the left distal ureter and there is mild left hydroureteronephrosis. Additional nonobstructing renal stones bilaterally. Liver is mildly enlarged and demonstrates nodular contour, consistent with cirrhosis. Post cholecystectomy. Post-hysterectomy. Normal appendix. No free air or free fluid. Left total hip arthroplasty. Atherosclerotic calcifications. Radiologist: Hugo Garcia MD Study ready at 03:14 and initial results transmitted at 03:31. Blood Pressure Blood Pressure Findings: Elevated blood pressure Blood Pressure Disposition: further management by hospitalist NAHOMY Narrative The patient is a 58 year old female who presents to the ED complaining of severe constant left flank pain that began yesterday evening at 2200. The patient had been experiencing dysuria throughout the day. She has a history of previous kidney stones and states that she thought she might have a stone. CT scan confirms a 3 mm stone on the left. However, the patient also has signs of urinary tract infection. She was given a dose of IV Rocephin here in the emergency department along with IV analgesia and is currently comfortable. The patient has history of diabetes and is hyperglycemic this time. She was placed on a normal saline drip after receiving IV normal saline bolus. The patient will be evaluated by the [facility] Hospitalist Impression & Plan Left ureteral stone, UTI (urinary tract infection), Hyperglycemia Discharge Plan Visit Data Chief Complaint: Kidney Stone Stated Complaint: KIDNEY STONE ED Provider: Anne Koenig Discharge Problem: Left ureteral stone, UTI (urinary tract infection), Hyperglycemia Patient Disposition: Being Evaluated by Hospitalist Forms Stand Alone Forms: My [facility] Prescriptions Prescriptions: No Action venlafaxine [Effexor XR] 150 mg Capsule,Extended Release 24hr 300 tab PO HS RF: 0 acetaminophen [Tylenol Extra Strength] 500 mg Tablet 1,000 mg PO Q8 RF: 0 insulin aspart U-100 [Novolog U-100 Insulin aspart] 100 unit/mL Solution Continuous Subcutaneous Infusion CONT RF: 0 Referrals Referrals: Lenny Farfan MD [Primary Care Provider] - Discharge Problem: UTI (urinary tract infection) Qualifiers: Urinary tract infection type: site unspecified Hematuria presence: without hematuria Qualified Code(s): N39.0 - Urinary tract infection, site not specified The scribe's documentation has been prepared under my direction and personally reviewed by me in its entirety. I confirm that the note above accurately reflects all work, treatment, procedures, and medical decision making performed by me.
[2019-02-11] MEDS ORDERED: CARBOHYDRATES FOR HYPOGLYCEMIA PO PRN (05:32)
[2019-02-11] MEDS ORDERED: DEXTROSE 50% 50 ML SYRINGE IV PRN (05:32)
[2019-02-11] MEDS ORDERED: ACETAMINOPHEN 1000 MG/100 ML IV IV PRN (05:32)
[2019-02-11] MEDS ORDERED: GLUCAGON FOR INJ 1 MG VIAL SQ PRN (05:32)
[2019-02-11] MEDS ORDERED: HYDROmorphone INJ 1 MG/ML SYRINGE IV PRN (05:32)
[2019-02-11] MEDS ORDERED: GLUCOSE 10 TABS/TUBE PO PRN (05:32)
[2019-02-11] MEDS ORDERED: GLUCOSE 40% GEL 15 GM TUBE PO PRN (05:32)
[2019-02-11] MEDS ORDERED: Nursing to Pharmacy Communication ONE (05:43)
[2019-02-11] MEDS ORDERED: PATIENT'S HEIGHT AND/OR WEIGHT NEEDED SCH (05:45)
[2019-02-11] MEDS ORDERED: INSULIN ASPART 100 UNITS/ML 3 ML PEN SC SCH ×3 (06:00→07:30)
[2019-02-11] MEDS: CIPROFLOXACIN 400 MG/200 ML BAG IV SCH ×2 (06:06→17:13)
[2019-02-11] MEDS: NSS + 20MEQ KCL 20 MEQ/1,000 ML BAG IV SCH ×3 (06:06→20:41)
--- NOTE | 2019-02-11 07:08 | CT Scan Report ---
CT OF THE ABDOMEN AND PELVIS WITHOUT CONTRAST CLINICAL HISTORY: Left flank pain. Evaluate for stone. COMPARISON STUDY: CT of the abdomen and pelvis August 14, 2018. TECHNIQUE: Axial images of the abdomen and pelvis were obtained without IV contrast. Images were revi ewed in the axial, sagittal, and coronal planes. Automated exposure control was utilized for the brian dy. A dose lowering technique was utilized adhering to the principles of ALARA. FINDINGS: A 4 mm distal left ureteral calculus located just inferior to the sacroiliac joint results in moderate left hydronephrosis. There are multiple bilateral renal calculi. Mild left perinephric in filtration is present. The liver is nodular. This represents cirrhosis. Sensitivity for detection of hepatic lesions is diminished on this unenhanced exam but none are identified. The gallbladder is twin gically absent. There is no ascites. Unenhanced images of the spleen, adrenal glands and pancreas are unremarkable. Is no evidence for a bowel obstruction. Left hip arthroplasty is noted. There are no r ight ureteral calculi. There is no right hydronephrosis. IMPRESSION: 1. 4 mm distal left ureteral calculus which results in moderate left hydronephrosis. 2. Bilateral nephrolithiasis. 3. Cirrhotic liver. Electronically signed by: Godwin Burden M.D. 02/11/2019 7:07 AM
[2019-02-11] MEDS: ONDANSETRON INJ 2 MG/ML 2 ML VIAL IV PRN ×2 (07:50→15:38)
--- NOTE | 2019-02-11 08:06 | Hospitalist Progress Note ---
Date of Service February 11, 2019 Assessment & Plan (1) Left ureteral stone: Left ureteral stone with mild left hydronephrosis- Urology did say recommends liquid diet tonight n.p.o. after midnight in case intervention is needed NSS + KCl 20 mEq 150 mils per hour Placed on Cipro 400 mg IV every 12 hours, pending urine culture and sensitivity Acetaminophen 1 g IV every 8 hours as needed mild pain or temperature. Dilaudid 0.2 mg IV every 3 hours as needed severe pain. Famotidine 20 mg IV every 12 hours. (2) Hyperglycemia: Hyperglycemia due to diabetes mellitus- Patient is on insulin pump Check hemoglobin A1c. (3) Hypertension: No meds noted and med rec. (4) Diabetes: Insulin pump (5) Depression: Holding venlafaxine while n.p.o. Resume after decision regarding procedure Subjective Patient said no additional pain since this morning did have some debris passage with her stone however urology wishes for a KUB Review of Systems Review of Systems: ROS: well nourished well developed. No double vision blurry vision No problems with speech or swallowing No palpitations, chest pain or pressure No Wheezing or breathing issues No abdominal pain nausea vomiting diarrhea changes in appetite or weight burning urine and urine frequency No focal joint pain or muscle pain No skin rashes or oral lesions No unusual bruising or bleeding No focused back pain or numbness or loss of strength No changes in memory or confusion Physical Exam Physical Exam: The patient appeared fatigued Vital signs as documented. Head exam is unremarkable. normocephalic, atraumatic Neck is without jugular venous distension, thyromegaly, or lymphademopathy Lungs are clear to auscultation and percussion. Cardiac exam reveals Rhythm is regular. First and second heart sounds normal. Abdominal exam reveals normal bowel sounds, mild left CVA tenderness no masses, no organomegaly Extremities are nonedematous and both pedal pulses are present Neurologic exam is A&Ox3, no focal deficits, strength is equal bilateral Psychologically seems neither anxious or depressed Skin is warm Dry without bruises or lesions Results & Data Vital Signs (Past 12 Hours) Vital Signs Temp Pulse Pulse Resp BP BP BP 02/11/19 07:44 36.8 C 18 116/73 02/11/19 05:25 37.2 C 93 H 16 143/77 H 02/11/19 05:00 87 16 141/83 H 05/19/19 03:12 93 H 18 141/83 H 02/11/19 02:30 36.8 C 74 18 138/89 Pulse Ox 02/11/19 07:44 95 02/11/19 05:25 95 02/11/19 05:00 93 02/11/19 03:12 94 02/11/19 02:30 99 (1) Diabetes Diabetes mellitus complication status: with unspecified complications Diabetes mellitus type: type 1 Qualified Code(s): E10.8 - Type 1 diabetes mellitus with unspecified complications (2) Depression Depression Type: unspecified Qualified Code(s): F32.9 - Major depressive disorder, single episode, unspecified (3) Hypertension Hypertension type: essential hypertension Qualified Code(s): I10 - Essential (primary) hypertension
[2019-02-11] MEDS ORDERED: POTASSIUM CHLORIDE 10 MEQ TABCR PO ONE (08:10)
--- NOTE | 2019-02-11 11:40 | Urology Consultation ---
Date of Consultation February 11, 2019 Assessment & Plan (1) Left ureteral stone: Left ureteral stone with mild left hydronephrosis and admitted to medicine for observation. Abx for presumed UTI. Pain has improved and previously has been able to pass stones. Also needed intervention at times. No bleeding or major change in symptoms. No fever. Occ nausea. Passed debris this am when she voided. May have been fragments vs stone in debris. Still having burning. Will await KUB to see if progressing. Regardless with plan hydration for now. Can add diet with liquids. NPO at midnight in case issues change, fever develops, or pain becomes severe. History of Present Illness Attending Physician: Alfredito Torres MD History of Present Illness Sudden onset of severe pain. Has had many stones over years and thought was passing. Pain did not let up. Was severe and constant until seen in ER. Radiating into groin in waves with severe discomfort. Nausea and burning. Also UTI like symptoms. No fevers. Also found that blood sugar was very elevated. Monitoring with medicine. Hydrating and tolerating discomfort. Passed 'pus' this am when voided. Did not see actual stone. NO blood in urine. Allergies Allergy/AdvReac Type Severity Reaction Status Date / Time Penicillins Allergy Unknown Hives Verified 02/11/19 05:03 Home Medications Home Medications Medication Instructions Recorded Confirmed Type venlafaxine [Effexor XR] 300 tab PO HS 07/10/18 02/11/19 History acetaminophen [Tylenol Extra 1,000 mg PO Q4 PRN 08/14/18 02/11/19 History Strength] insulin aspart U-100 [Novolog 0 unit CONTINUOUS SUBCUTANEOUS 08/14/18 02/11/19 History U-100 Insulin aspart] INFUSION CONT lisinopril-hydrochlorothiazide 1 tab PO DAILY 02/11/19 02/11/19 History mirtazapine 30 mg PO HS 02/11/19 02/11/19 History Patient History Medical History Avascular necrosis L HIP Diabetes mellitus type 1 Hyperlipidemia Hypertension Insomnia Kidney stones FOLLOWS WITH DR FUCHS Surgical History History of tonsillectomy and adenoidectomy Hx laparoscopic cholecystectomy Hx of colonoscopy Hx of total hysterectomy Hx of tubal ligation Hx of wisdom tooth extraction Social History Preferred Language: Serbian Communication Ability: Effective Visual Impairment: No Limitations Graduate Research Assistant Required: No Beliefs That Will Affect Care: None Current Living Situation: Family Current Living Situation Comment: DAUGHTER AND DAUGHTER'S 3 KIDS Feels Safe at Home: Yes Safety Concerns: Feels Safe At This Time Smoking Status: Current every day smoker Tobacco Type: cigarettes Cigarettes Per Day: 4-6 Hx Alcohol Use: No Hx Substance Use: No Review of Systems Review of Systems: All systems reviewed & are unremarkable except as noted in HPI & below Physical Exam Constitutional: well developed and well nourished; no acute distress Eyes: eyes not dysmorphic ENMT: Ears: no hearing impairment Neck: normal visual inspection and trachea midline Respiratory: normal respiratory effort; no respiratory distress and no labored breathing Cardiovascular: Rate/Rhythm: not tachycardic Gastrointestinal (Abdomen): Inspection/Auscultation: abdomen normal to inspection and + abdomen distended Percussion/Palpation: abdomen nontender Musculoskeletal: Head/Neck/Chest: + head abnormal to inspection and + limited ROM of neck Skin: normal turgor; no rashes and no lesions Neurologic: CN's II-XI intact bilaterally and awake Psychiatric: A+Ox3, euthymic affect Orientation: alert and oriented x 3 Genitourinary: NO blood in urine. Results & Data Vital Signs (Past 12 Hours) Vital Signs Temp Pulse Pulse Resp BP BP BP 02/11/19 07:44 36.8 C 18 116/73 02/11/19 05:25 37.2 C 93 H 16 143/77 H 02/11/19 05:00 87 16 141/83 H 02/11/19 03:12 93 H 18 141/83 H 02/11/19 02:30 36.8 C 74 18 138/89 Pulse Ox 02/11/19 07:44 95 02/11/19 05:25 95 02/11/19 05:00 93 02/11/19 03:12 94 02/11/19 02:30 99
[2019-02-11] MEDS ORDERED: PHARMACY GLYCEMIC MGMT CONSULT PRN (15:04)
--- NOTE | 2019-02-11 15:19 | XRay Report ---
KUB HISTORY: Left flank pain. eval for left stone COMPARISON: Abdomen and pelvis CT IV 191. FINDINGS: The bowel gas pattern is unremarkable. There are no dilated loops of small bowel to suggest an obstruction. Bilateral nephrolithiasis is again noted. Cholecystectomy. Confirmation of the 4 mm stone within the distal left ureter overlying the left side of the sacrum. No pneumoperitoneum or pn eumatosis. IMPRESSION: 1. Redemonstration of a distal left ureteral stone. This is unchanged in position. 2. Bilateral nephrolithiasis. Electronically signed by: Coleman Teixeira M.D. 02/11/2019 3:18 PM
[2019-02-11] MEDS ORDERED: INSULIN ASPART 100 UNITS/ML VIAL SC PRN (15:30)
[2019-02-11] MEDS: NovoLOG INSULIN PUMP SCH ×2 (17:43→21:05)
[2019-02-11] MEDS ORDERED: PROMETHAZINE HCL 12.5 MG in SODIUM CHLORIDE 0.9% 50 ML IV PRN (20:04)
[2019-02-11] MEDS ORDERED: PROMETHAZINE HCL 12.5 MG in SODIUM CHLORIDE 0.9% 50 ML IV ONE (20:15)
[2019-02-12] MEDS: NSS + 20MEQ KCL 20 MEQ/1,000 ML BAG IV SCH ×2 (03:21→11:23)
[2019-02-12] MEDS: ONDANSETRON INJ 2 MG/ML 2 ML VIAL IV PRN (03:27)
[2019-02-12] MEDS ORDERED: Nursing to Pharmacy Communication ONE (03:58)
[2019-02-12] MEDS ORDERED: INSULIN ASPART 100 UNITS/ML VIAL SC PRN (04:08)
[2019-02-12] MEDS: CIPROFLOXACIN 400 MG/200 ML BAG IV SCH (05:51)
[2019-02-12] MEDS: NovoLOG INSULIN PUMP SCH ×2 (05:55→12:39)
[2019-02-12 07:12] LABS: Basophils # (auto) 0.02 K/uL (0-0.2); Basophils % (auto) 0.3 %; Eosinophils # (auto) 0.13 K/uL (0-0.5); Eosinophils % (auto) 1.9 %; Hematocrit (blood only) 30.3 % (37-47); Hemoglobin 9.9 g/dL (12.0-16.0); Immature Granulocytes # (auto) 0.02 K/uL (0.00-0.02); Immature Granulocytes % (auto) 0.3 %; Lymphocytes % (auto) 33.9 %; Mean Corpuscular Hgb Conc 32.7 g/dL (32-36); Mean Corpuscular Volume 87.1 fL (80-100); Mean Platelet Volume 9.8 fL (7.4-10.4); Monocytes % (auto) 4.4 %; Neutrophils # (auto) 4.02 K/uL (1.4-6.5); Neutrophils % (auto) 59.2 %; Platelet Count 149 K/uL (130-400); RDW Coefficient of Variation 13.8 % (11.5-14.5); RDW Standard Deviation 43.9 fL (36.4-46.3); Red Blood Count 3.48 M/uL (4.2-5.4); White Blood Count 6.79 K/uL (4.8-10.8)
[2019-02-12 07:22] LABS: Partial Thromboplastin Ratio 0.9; Partial Thromboplastin Time 23.3 Seconds (21.0-31.0); Prothrombin Time 10.7 Seconds (9.0-12.0)
[2019-02-12 07:45] LABS: Albumin Level 2.7 gm/dl (3.4-5.0); BUN Creatinine Ratio 14.4 (10-20); Calcium 7.8 mg/dl (8.5-10.1); Est GFR (African American) 85.7; Est GFR (Non-African American) 73.9; Potassium 3.8 mmol/L (3.5-5.1)
[2019-02-12 07:48] VITALS: BP 116/72; TEMP 98.6; O2SAT 94
[2019-02-12 07:48] LABS: Albumin Globulin Ratio 0.8 (0.9-2); Bilirubin,Total 0.4 mg/dl (0.2-1); Globulin 3.6 gm/dl (2.5-4.0); Total Protein 6.3 gm/dl (6.4-8.2)
[2019-02-12 07:53] LABS: Estimated Average Glucose 203 mg/dl; Hemoglobin A1C 8.7 % (4.5-5.6)
--- NOTE | 2019-02-12 09:12 | Urology Progress Note ---
Date of Service February 12, 2019 Assessment & Plan (1) Left ureteral stone: (2) UTI (urinary tract infection): 58yo F with 4mm distal L ureteral stone, bilateral renal stones. Pt is clinically stable from perspective. UTI symptoms dramatically improved, and denies significant renal colic. Non toxic appearing, labs also within normal limits. We discussed options for treatment including observation with medical expulsion therapy - hydration, tamsulosin, pain control and time, vs ESWL this Tuesday. She is going out of town in 3 weeks, would like definitive treatment. We also briefly discussed her renal stone burden. If she passes her distal ureteral stone, she would like to proceed with ESWL for her L renal stone. No further ibuprofen, toradol, aspirin - she is agreeable. Has not taken her aspirin 81mg (for health maintenance) since Tuesday AM. Stone clearly visible on KUB yesterday. UC&S still pending. Okay to discharge home from perspective with tamsulosin, pain control, ciprofloxacin 500mg BID x 7-10 additional days. I will watch for final UC&S results to be sure ciprofloxacin is preferred. Please have patient report to [address] [place] [address] office upon discharge to update H&P and surgical scheduling. Thank you for allowing us to participate in the acute care of Ms. Marcelo. Please reconsult with additional questions, concerns or changes in patient status. Subjective 58yo F with PMHx DM, HTN, nephrolithiasis was admitted with L sided abdominal pain radiating to groin yesterday. Diagnosed with 4mm distal L ureteral stone, with mild hydronephrosis. She also has bilateral renal stones, stone burden R>L. She had an uneventful night. Only required IV tylenol x1 for headache. Sitting at the side of the bed, appears comfortable. She has some L sided abdominal pain with eating - just a "twinge" but then subsides. She has been straining consistently, denies passage of stone. Denies n/v/f/c. Denies hematuria. Dysuria has drastically improved with IV ciprofloxacin. UA is contaminated but with +nitrates and +3 leuks. UC&S still pending. Review of Systems Review of Systems: All systems reviewed & are unremarkable except as noted in HPI & below Physical Exam Physical Exam: A&Ox3 RRR abd soft, nontender no LE edema Results & Data Vital Signs (Past 12 Hours) Vital Signs Temp Pulse Pulse Resp BP Pulse Ox 02/12/19 07:44 37 C 77 16 116/72 94 02/11/19 22:55 37.4 C 88 16 104/66 95 (1) UTI (urinary tract infection) Hematuria presence: without hematuria Urinary tract infection type: site unspecified Qualified Code(s): N39.0 - Urinary tract infection, site not specified
[2019-02-12 12:52] VITALS: PULSE 88
--- NOTE | 2019-02-12 15:31 | Discharge Summary ---
Date of Service February 12, 2019 Admission HPI Per Admitting Provider The patient is a 58-year-old female with a past medical history including diabetes mellitus, hypertension, multiple previous ureteral stones with some requiring stent placement, who presents to the emergency department with her usual symptoms of left-sided abdominal pain, which she notes has become progressively lowered toward her groin and pelvis as time is gone on. She does also note some intermittent nausea, and progressive fatigue. Admission Exam Per Admitting Provider The patient is awake, alert and oriented 3, well developed and well nourished, normocephalic and atraumatic, lying in bed and in no acute distress. HEENT--PERRL, EOMI, mucous membranes and oropharynx dry. Neck--supple. No JVD. No bruits. Thyroid normal, trachea midline, no adenopathy. Heart--normal S1 and S2. No murmurs, rubs or gallops. Lungs--clear bilaterally, no respiratory distress, no accessory muscle use. Abdomen--normal bowel sounds and soft. Nontender. Nondistended. Extremities--no cyanosis or clubbing. No edema. There are good distal pulses b/l. Dermatologic--normal skin turgor, normal color, no abnormal lymph nodes, no rash. Neurologic--cranial nerves II through XII grossly intact. Rheumatologic--normal range of motion. Psychiatric--normal affect. Principal Diagnosis Left Ureter Stone Discharge Exam General: Resting comfortably in no apparent distress HEENT: NC/AT; PERRLA with EOMI; [place] conjunctiva, MMM. No erythema of posterior pharynx Neck: Supple and nontender; No JVD Cardiac: RRR w/o murmurs, gallops or rubs Lungs: CTA bilaterally; No rhonchi, wheezing, or rales Abdomen: Bowel normoactive X 4; Nontender to palpation Extremities: Warm. No edema present Neuro: No focal weakness Skin: No rash Discharge Data Allergies Allergy/AdvReac Type Severity Reaction Status Date / Time Penicillins Allergy Unknown Hives Verified 02/15/19 15:55 Consultations 02/11/19 03:54 ED Decision to Admit Stat 02/11/19 05:32 Consult Case Management - Discharge Planning Routine Consult Urology Routine Ordered Studies 02/11/19 02:56 CT abd pelvis wo con Urgent KUB Hospital Course (1) Left ureteral stone: Left ureteral stone with mild left hydronephrosis on admission. Received IV fluid hydration. Cipro started for empiric coverage; will need to complete a 7 day course following discharge. UC is pending; will need to follow up on results. Tylenol ordered for pain control; did not require IV narcotics. KUB showed unchanged position of stone. Will continue Flomax, Cipro at home; script also provided for Oxycodone (avoid Percocet in setting of liver cirrhosis) Pt. advised to avoid NSAIDs and Aspirin; will report to urology office at discharge to schedule outpatient procedure. (2) Hyperglycemia: Hemoglobin A1C was 8.7. Diabetic induced. (3) Hypertension: Resume home Lisinopril/HCTZ at discharge. (4) Diabetes: Insulin pump was continued. Hgb A1C was elevated. life educator consulted. Will need to f/u with endocrinology as outpatient. (5) Cirrhosis: CT A/P showed liver cirrhosis. No h/o ETOH abuse, may be related to ?TOLENTINO. Appt will be scheduled with GI as outpt. (6) Depression: Resumed home meds at discharge. Pt. was stable for discharge to home on 02/12/19. Total Time Total Time Spent Total Time Spent (In Minutes): >30 minutes Total Time Includes: Examination of the Patient, Discharge Planning, Medication Reconciliation, Communication With Other Providers and Other Discharge Plan Discharge Items Patient Disposition: Home - Self-Care Reason For Visit: LEFT URETERAL STONE, LEFT HYDRONEPHROSIS Discharge Diagnosis: Left Ureter Stone Condition: Fair Discharge Goals: Decrease discomfort, Diagnostic testing, Improve disease control, Improve function, Prevent disease and Therapeutic intervention Activity: As commented below Bathing: No limitations Exercise/Sports: Wait until after follow-up appointment Non-emergency contact: Primary Care Provider and Urologist Call non-emergency contact if: you have any medication questions, your symptoms worsen, your pain is not controlled, your pain is worsening, your pain is unusual for you, your pain is concerning for you and you have a fever Follow-up/Referrals: Lenny Farfan MD [Primary Care Provider] - 02/14/19 1:30 pm (Please, follow up at Dr. Farfan's office with his educational assistant, Rica Winchester PA-C, on TuesdayFebruary 14 at 1:30 pm. *If you need to change this appointment, call their office at [phone].) Dorota Galeana PA-C [Physician Animal Attendant] - 02/15/19 1:00 pm (Please, follow up at [facility] with Dorota Galeana PA-C on February 15 at 1:00 pm. *This office is located at [address] [place] [address] in [facility]). If you need to change this appointment, call the office at [phone].) Diet: Carb Count or DM1 Addtl Provider Instructions: 1. Left Ureter Stone * Please continue Flomax 0.4 mg daily per urology recs. * Please take Ciprofloxacin 500 mg twice daily for treatment of urinary tract infection; urine culture is pending. * Prescription was provided for Oxycodone 5 mg tablets -- please take this medication as needed for moderate to severe pain. * Please take Tylenol 650 mg every 8 hours as needed for mild pain -- avoid large doses of Tylenol in the setting of liver cirrhosis. * Avoid all NSAIDs (Ibuprofen, Motrin, Aleve, etc.) and Aspirin due to possible procedure later this week. * You will need to report to the urology office at [address] [place] [address] following discharge to schedule outpatient surgery. 2. Diabetes Mellitus * Hemoglobin A1C was 8.7 during this admission. * Continue insulin pump use at home. * Please follow up with endocrinology to discuss blood glucose management. 3. Fatty Liver Changes/Cirrhosis * Imaging showed liver cirrhosis during this admission. * An appointment will be arranged with GI as an outpatient for evaluation. * Please avoid all ETOH use at home. 4. Please schedule an appointment with your primary care provider in 1-2 weeks to discuss this hospital admission. 5. Prescriptions for new meds (Ciprofloxacin, Flomax) were sent to your pharmacy. A written prescription was provided for Oxycodone. Prescriptions: New ciprofloxacin HCl 500 mg tablet 500 mg PO BID Qty: 14 RF: 0 oxycodone 5 mg capsule 5 mg PO Q6H Qty: 12 RF: 0 Continued mirtazapine 30 mg tablet 30 mg PO HS RF: 0 lisinopril-hydrochlorothiazide 10-12.5 mg tablet 1 tab PO HS RF: 0 venlafaxine [Effexor XR] 150 mg Capsule,Extended Release 24hr 300 tab PO HS RF: 0 Novolog U-100 Insulin aspart 100 unit/mL Solution Continuous Subcutaneous Infusion CONT RF: 0 Changed acetaminophen [Tylenol Extra Strength] 500 mg Tablet 650 mg PO Q8H PRN (Reason: Mild pain) Qty: 1 RF: 0 No Action tamsulosin [Flomax] 0.4 mg capsule 0.4 mg PO HS RF: 0 Stand-Alone Forms: [employer]), [facility] [employer]/Other Patient Handouts: Diabetes Type 1 Meals Snacks Ch Discharge Orders: Discharge Order (Routine); Ordered 02/12/19 Ordered By: Jeanne Fernandes Admission Data Admit Date/Time: 02/11/19 04:38 Attending Provider: Irvin Landry Admit Provider: Garett Stveens Primary Care Provider: Lenny Farfan Other Providers: Dago Son II Service: Surgical Services Other Interventions: Discharge Summary Assessment (RN) Last Done: 02/12/19 12:51 Pending Studies at Discharge: Yes Studies:: Urine culture is pending. DC Date/Time DO NOT enter until pt leaves facility: 02/12/19 16:14 Supervising Physician Co-Signing Physician Notes Attending Attestation and Discharge Note: Pt seen/examined, chart reviewed, care plan d/w ETIENNE Fernandes. I agree w/ the fish components of her discharge summary. 58yo female who presented with left-sided kidney stone. Pain resolved quickly while here. Seen by urology - in light of symptoms improving quickly urology recommended outpatient management of stone. She will d/c home on flomax, antibiotics for UTI prophylaxis, pain meds. She will see urology within a week of discharge. Incidentally liver appeared cirrhotic on imaging. She will need GI follow-up for this. Discharge exam: gen - NAD heart - RRR s1 s2 no murmur lungs - CTA b/l abd - soft, NT, ND, no HSM, no flank pain or tenderness ext - no edema Irvin Landry MD
== END 2019-02-12 16:14 | disposition home or self-care (01) | DRG 690 ==
LOC: ED 02:22 → 3N 04:38 → SUATTDRO 04:38 → 3N 05:20
DX: F17.210 Nicotine dependence, cigarettes, uncomplicated; Z79.4 Long term (current) use of insulin; N13.6 Pyonephrosis; Z96.41 Presence of insulin pump (external) (internal); F32.9 Major depressive disorder, single episode, unspecified; E11.65 Type 2 diabetes mellitus with hyperglycemia; Z79.899 Other long term (current) drug therapy; K74.60 Unspecified cirrhosis of liver; I10 Essential (primary) hypertension

== ENCOUNTER 2022-03-01 17:42 | Inpatient (IN) ==
[2022-03-01] MEDS ORDERED: ONDANSETRON INJ 2 MG/ML 2 ML VIAL IV STA ×2 (18:18→20:55)
[2022-03-01] MEDS ORDERED: MoRPHine SULFATE 10 MG/ML CARP/VIAL IV STA (18:18)
[2022-03-01] MEDS ORDERED: SODIUM CHLORIDE 0.9% 1000ML 1,000 ML IV ONE ×2 (18:18→20:55)
--- NOTE | 2022-03-01 18:22 | Emergency Department Note ---
Impression & Plan Cryptococcal meningitis, Hypomagnesemia ED Provider Note Name: DULCE HUDSON Age: 61 Sex: F Arrives Via: Walk-In Informant: Patient, son ED Provider: Hugo Barragan MD Chief Complaint: Headache Impression: As per impressions above Medical Decision Making: Pleasant 61-year-old female with a history of type 2 diabetes, hypertension, renal colic, migraines and cirrhosis of the liver. She arrives for evaluation of headache. Patient has been having a headache for at least the last 2 weeks though admits it may have been going on for almost 2 months. It has been acutely worsening over the last few days associated with severe nausea and vomiting. She had been seen in the ED yesterday and had extensive work-up including CT head and CT angio of the head and neck with unremarkable work-up and patient noting that she had felt much better this plan to go home and see how she managed as an outpatient. Despite ketorolac and Zofran symptoms continued to worsen and thus return to the ER for further evaluation. On discussion patient notes a history of migraines but had not really had any headaches in almost 20 years. Neurologically she is fully intact she has no true nuchal rigidity on exam, she is afebrile but she does appear unwell. Laboratory work-up obtained with essentially unremarkable white blood cell count only the slightest elevation in CRP and patient had received some morphine, Zofran, fluids with complete resolution of her symptoms. She is feeling well in no distress. After long discussion of pros and cons patient agreeable to having LP done given the persistence of this headache. I will note that her daughter had meningitis years ago and was in NICU for some time and thus patient understands the risks of meningitis. LP obtained without difficulty with clear CSF no while awaiting results she was given 2 g of IV Rocephin. Initial cell count reveals 320 WBCs and only 22 RBCs. At this point I felt starting steroids , acyclovir and vancomycin which was ordered were indicated all awaiting the CSF PCR panel. Patient reevaluated many times in quite stable stating she is feeling much better and in minimal distress. She did have another episode of severe nausea and thus was given some Zofran along with the Decadron that was being given. PCR ended up returning positive for cryptococcus. At this point hospitalist was consulted as well as pharmacy for input on medications. Due to medications we have in our formulary patient was given fluconazole 800 mg p.o. and Amphotericin was ordered as per pharmacist I had multiple long discussions with hospitalist as well as the critical care team regarding patient's care. At this point she actually appears quite well given the high risk of worsening as well as medication she is receiving was felt that patient should be monitored closely in the ICU. Patient kept abreast of these findings and discussions and agreeable. Prior Medical Record and Triage/Nursing Notes reviewed by Me Additional history obtained from chart Differentials:Migraine headache, meningitis, sinusitis, CO exposure, ICH, SAH, infection, tumor, headache, sinus thrombosis, arterial dissection, as well as other pathologies. Vital Signs: reviewed and remarkable for no significant abnormalities Interventions: Morphine 6 mg IV, Zofran 4 mg IV, normal saline bolus 1 L IV, magnesium sulfate 1 g IV, Rocephin 2 g IV, normal saline bolus 1 L IV, Decadron 10 mg IV, Zofran 4 mg IV, acyclovir 800 mg IV, fluconazole 800 mg p.o., Amphotericin B IV Labs:Reviewed and remarkable for trace elevation of CRP. Normal WBC. CSF with 300 whites and 22 reds, positive cryptococcus PCR of CSF fluid Imaging:Reviewed CT imaging of head from 24 hours earlier unremarkable Consults:Dr. Stevens of the [facility] hospitalist service, critical care service, pharmacist Plan: Disposition:Hospitalization. Condition: Fair History of Present Illness:81-year-old female arrives for evaluation of headache. Patient with about a week of worsening headaches. She does note a history of migraines but has never had anything like this before. Gradually worsening over the last week though rapidly worsening the last 48 hours. She notes associated nausea, periodic vomiting, difficulty walking, photophobia and generalized malaise and fatigue. She does have some other body aches and mild cough. She took a COVID test last week at home which was negative. She was seen in the ER yesterday for the symptoms and a CTA of the head and neck were done along with labs and medications given. She noted she was feeling better and discharged. Unfortunately symptoms started returning overnight now symptoms are worse than they were before. He denies any fevers, chest pain, shortness of breath, rashes, calf pain, back pain, abdominal pain, urinary/bowel symptoms or other symptoms. She has no recent head injury. She does not have carbon monoxide in the house. Nothing makes headache better and nothing makes it worse. Zofran and TauroLock at home did not help with symptoms. ROS: See above HPI for pertinent positives & negatives. A total of 10 systems reviewed and were otherwise negative. Past Medical History:See Below Past Surgical History:See Below Family History:See Below Social History:See Below Home Medications:See Below Allergies:See Below Vitals:Blood Pressure: 125/69, Pulse 90, RR 20, T 36.7C, O2 97% on RA Physical Exam: GENERAL: Patient is uncomfortable/unwell appearing and in moderate distress. EYES: No scleral icterus, unremarkable pupils. ENT: Mucous membranes moist, no nasal congestion. NECK: No masses appreciated, nomeningismus, trachea is midline. RESPIRATORY: No dyspnea. Clear to auscultation and equal bilaterally. No wheeze, no rhonchi. CARDIOVASCULAR: Regular rate and rhythm.No murmurs, rubs, gallops appreciated. GASTROINTESTINAL: Abdomen soft, non-tender, no peritonitis.Bowel sounds positive.No masses appreciated. BACK: No midline tenderness, no CVA tenderness EXTREMITIES: Normal motion all extremities, no cyanosis, no edema. NEUROLOGIC: Alert and oriented, no acute motor or sensory deficits, no focal weakness, cranial nerves grossly intact. SKIN: No rash, no jaundice, no diaphoresis. PSYCH: Appropriate GCS: 15 ED Course: Times/Reassessments: Any repeat evaluations throughout the patient's stay with keeping her updated on findings. She is much improved after meds and is stable breathing comfortably though requiring a small amount of nasal cannula O2 after morphine. Procedures: Lumbar Puncture Indication: headache. Verbal consent was obtained after the risks and benefits were explained, including but not limited to headache, bleeding/clotting, scarring, infection, pain, and bone/joint/nerve damage. At this time, the risks of the procedure are less than the risks of NOT performing the procedure. A time out was taken and the correct patient and site identified. The patient was placed in the sitting forward position and the back was prepped with betadine and draped in the standard fashion. The L3 intervertebral space was identified, anesthetized locally with 1% lidocaine without epinephrine, and the spinal needle was inserted through the skin with the bevel parallel to the dural fibers. The needle was carefully advanced into the lumbar cistern and 4 tubes of clear CSF was obtained. The stylet was replaced and the needle was removed. A bandaid was placed and the patient was placed in the supine position. The patient tolerated the procedure well and there were no complications. Critical Care: I have personally spent 45 minutes of critical care time in the direct man agement of this patient. Meningitis requiring extensive management. This was a life/limb threatening event. This 45 minutes is in excess of all separately billable procedures. Hugo Barragan MD Past Med/Surg History Medical History Anxiety Cirrhosis of liver FOLLOWS W/ [facility] Stable currently Depression Diabetes mellitus, type 2 IDDM Glucose fluctuates - since Covid in December 2020 On insulin pump Follows with endocrinology Dupuytren's contracture of hand Bilateral hands Dyslipidemia History of COVID-12 January 2021 > [facility], not hospitalized, fever, ear pain- did give infusion in ER No current issues Hypertension IBS (irritable bowel syndrome) Stable Insomnia Kidney stones FOLLOWS WITH DR FUCHS No current issues - monitoring currently Surgical History History of cystoscopy WITH STENTS AND STONE BASKETING History of lithotripsy History of tonsillectomy and adenoidectomy History of total hip arthroplasty LEFT Hx laparoscopic cholecystectomy Hx of colonoscopy Hx of surgical amputation of finger left pinky Hx of total hysterectomy GERALD WITH BSO Hx of tubal ligation Hx of wisdom tooth extraction Family History Father Family history of diabetes mellitus Coronary heart disease Brother Family history of diabetes mellitus Mother Family history of diabetes mellitus Heart disease Hypertension Grandfather (Paternal) Family history of diabetes mellitus Grandmother (Paternal) Family history of diabetes mellitus Denies family history of Ovarian cancer Breast cancer Colorectal cancer Social History Smoking Status: Never smoker Cigarettes Per Day: 06/2018; Second Hand Exposure: Yes; Hx Alcohol Use: No Hx Substance Use: No Preferred Language: Mongolian Communication Ability: Effective Visual Impairment: No Limitations Dockworker Required: No Beliefs That Will Affect Care: None marital status: Single Current Living Situation: Alone current occupational status: employed and disabled current occupation: [employer] does have disability for diabetes- insurance helps Feels Safe at Home: Yes Childhood Exposure to Second-Hand Smoke: No caffeine: Yes Dental Care, Regularly: No Physical Activity Frequency: Does not Exercise Seatbelt Use: always Sunscreen Use: Yes Assistive Devices: None Allergies Allergies Allergy/AdvReac Type Severity Reaction Status Date / Time Penicillins Allergy Intermediate Hives Verified 03/01/22 21:26 atorvastatin Allergy Unknown CAN'T Verified 03/01/22 21:26 REMEMBER gemfibrozil [From Lopid] Allergy Unknown CAN'T Verified 03/01/22 21:26 REMEMBER acetaminophen [From Tylenol] AdvReac Severe CAN NOT Verified 03/01/22 21:26 TAKE D/T LIVER ISSUES rosuvastatin AdvReac Intermediate Muscle Pain Verified 03/01/22 21:26 Home Meds Home Medications Medication Instructions Recorded Confirmed aspirin 81 mg tablet,delayed 81 mg PO HS 06/05/19 03/01/22 release multivitamin 1 tab PO QAM 09/07/19 03/01/22 blood-glucose sensor (Dexcom G6 #3 ea 01/22/21 12/22/21 Sensor) blood-glucose transmitter (Dexcom #1 ea 01/22/21 12/22/21 G6 Transmitter) ibuprofen 200 mg tablet (Advil) 200 mg PO Q6H PRN 06/15/21 03/01/22 insulin aspart U-100 100 unit/mL 0 unit SUBCUT TIDM 03/01/22 03/01/22 (3 mL) subcutaneous pen insulin glargine U-300 conc 300 68 unit SUBCUT QPM 03/01/22 03/01/22 unit/mL (1.5 mL) subcutaneous pen (Toujeo SoloStar U-300 Insulin) Previous Rx's Medication Instructions Recorded Contour Next Test Strips (blood #300 ea NS 12/29/20 sugar diagnostic) mirtazapine 30 mg tablet 30 mg PO HS #90 tab 05/06/21 venlafaxine 150 mg 300 mg PO HS #180 cap 07/01/21 capsule,extended release 24 hr (Effexor XR) Omnipod Dash Pods (Gen 4) (insulin #45 ea NS 09/15/21 pump cartridge) acetone (urine) test (Ketostix) #50 ea 10/14/21 pen needle, diabetic 32 gauge x #120 ea 11/06/21" (BD Ultra-Fine Jody Pen Needle) lisinopril 10 1 tab PO HS #30 tab 12/28/21 mg-hydrochlorothiazide 12.5 mg tablet etodolac 200 mg capsule 200 mg PO Q12H PRN #14 cap 02/28/22 ondansetron 4 mg disintegrating 4 mg PO Q8H PRN #30 tab 02/28/22 tablet Results & Data (ED) Vital Signs Vital Signs - 24 hr 03/01/22 17:46 03/01/22 18:42 03/01/22 23:21 Temperature 36.7 C Temperature Source Temporal Artery Scan Pulse Rate 90 88 Pulse Rate [Finger] 88 Pulse Rhythm [Finger] Regular Pulse Strength [Finger] Normal Respiratory Rate 20 19 18 Respiratory Effort / Characteristics Non-Labored Spontaneous Non-Labored Spontaneous Respiratory Depth Normal Normal Respiratory Pattern Regular Blood Pressure 125/69 112/65 Blood Pressure [Right Arm] 123/66 Blood Pressure Mean 87 80 Blood Pressure Mean [Right Arm] 85 Blood Pressure Position Sitting Blood Pressure Position [Right Arm] Sitting Pulse Oximetry 97 93 95 Oxygen Delivery Method Room Air Room Air Nasal Cannula Oxygen Flow Rate 3 Sepsis Recent Fever Within 48 Hours No Sepsis New/Unexplained Change in Mental Status No Sepsis Action Taken by Nursing No Action Required Laboratory Data Result diagrams: 03/02/22 05:30 03/02/22 10:03 Lab Results 03/01/22 03/01/22 03/01/22 Range/Units 18:00 18:00 18:00 WBC 8.66 (4.8-10.8) K/uL RBC 3.72 L (4.2-5.4) M/uL Hgb 10.4 L (12.0-16.0) g/dL Hct 31.6 L (37-47) % MCV 84.9 (80-100) fL MCH 28.0 (25-34) pg MCHC 32.9 (32-36) g/dL RDW Std Deviation 47.4 H (36.4-46.3) fL RDW Coeff of Jun 15.1 H (11.5-14.5) % Plt Count 139 (130-400) K/uL MPV 10.5 H (7.4-10.4) fL Immature Gran % (Auto) 0.3 % Neut % (Auto) 75.9 % Lymph % (Auto) 16.3 % [place] % (Auto) 6.7 % Eos % (Auto) 0.5 % Baso % (Auto) 0.3 % Neut # (Auto) 6.57 H (1.4-6.5) K/uL Lymph # (Auto) 1.41 (1.2-3.4) K/uL [place] # (Auto) 0.58 (0.11-0.59) K/uL Eos # (Auto) 0.04 (0-0.5) K/uL Baso # (Auto) 0.03 (0-0.2) K/uL Immature Gran # (Auto) 0.03 H (0.00-0.02) K/uL Sodium 137 (136-145) mmol/L Potassium 3.1 L (3.5-5.1) mmol/L Chloride 104 (98-107) mmol/L Carbon Dioxide 23 (21-32) mmol/L Anion Gap 10 (3-11) BUN 20 (6-23) mg/dl Creatinine 0.97 (0.6-1.2) mg/dl Est Cr Clr Drug Dosing 61.9 ml/min Est GFR ( Amer) 72.5 ml/min Est GFR (Non-Af Amer) 62.6 ml/min BUN/Creatinine Ratio 20.6 H (10-20) Glucose 86 (70-99(Fasting)) mg/dl POC Glucose (70-99) mg/dl Calcium 8.9 (8.5-10.1) mg/dl Magnesium 1.6 L (1.7-2.4) mg/dl Total Bilirubin 0.7 (0.2-1.0) mg/dl Direct Bilirubin 0.1 (0-0.2) mg/dl AST 35 (13-39) U/L ALT 22 (7-52) U/L Alkaline Phosphatase 88 (34-104) U/L Troponin I High Sens 10.3 (0-14) pg/ml C-Reactive Protein 0.72 H (0-0.5) mg/dl Total Protein 7.4 (6.0-8.3) gm/dl Albumin 3.9 (3.4-5.0) gm/dl Procalcitonin 0.11 (0-0.5) ng/ml Fluid Comment CSF Appearance CSF Color Xanthrochromic CSF WBC (0-5) /uL CSF RBC (0-) /uL CSF Cell Count Tube # CSF Mononuclear WBCs % % CSF Polynuclear WBCs % % CSF Chemistry Tube # CSF Glucose (40-70) mg/dl CSF Total Protein (15-45) mg/dl CSF C.neoform/gat PCR (NotDetected) CSF CMV DNA (PCR) (NotDetected) CSF Enterovirus (PCR) (NotDetected) CSF E. coli K1 (PCR) (NotDetected) CSF H. influenzae (PCR) (NotDetected) CSF HSV I (PCR) (NotDetected) CSF HSV II (PCR) (NotDetected) CSF HHV 6 (PCR) (NotDetected) CSF L.monocytogenes PCR (NotDetected) CSF N. meningitidis PCR (NotDetected) CSF Parechovirus (PCR) (NotDetected) CSF S. agalactiae (PCR) (NotDetected) CSF S. pneumoniae (PCR) (NotDetected) CSF VZV DNA (PCR) (NotDetected) Lyme Disease IgG Ab Negative (Negative) Lyme Disease IgM Ab Negative (Negative) SARS-CoV-2 (PCR) (Negative) Influenza Type A (PCR) (Neg) Influenza Type B (PCR) (Neg) RSV (RT-PCR) (Neg) 03/01/22 03/01/22 03/01/22 Range/Units 18:43 20:55 20:55 WBC (4.8-10.8) K/uL RBC (4.2-5.4) M/uL Hgb (12.0-16.0) g/dL Hct (37-47) % MCV (80-100) fL MCH (25-34) pg MCHC (32-36) g/dL RDW Std Deviation (36.4-46.3) fL RDW Coeff of Jun (11.5-14.5) % Plt Count (130-400) K/uL MPV (7.4-10.4) fL Immature Gran % (Auto) % Neut % (Auto) % Lymph % (Auto) % [place] % (Auto) % Eos % (Auto) % Baso % (Auto) % Neut # (Auto) (1.4-6.5) K/uL Lymph # (Auto) (1.2-3.4) K/uL [place] # (Auto) (0.11-0.59) K/uL Eos # (Auto) (0-0.5) K/uL Baso # (Auto) (0-0.2) K/uL Immature Gran # (Auto) (0.00-0.02) K/uL Sodium (136-145) mmol/L Potassium (3.5-5.1) mmol/L Chloride (98-107) mmol/L Carbon Dioxide (21-32) mmol/L Anion Gap (3-11) BUN (6-23) mg/dl Creatinine (0.6-1.2) mg/dl Est Cr Clr Drug Dosing ml/min Est GFR ( Amer) ml/min Est GFR (Non-Af Amer) ml/min BUN/Creatinine Ratio (10-20) Glucose (70-99(Fasting)) mg/dl POC Glucose (70-99) mg/dl Calcium (8.5-10.1) mg/dl Magnesium (1.7-2.4) mg/dl Total Bilirubin (0.2-1.0) mg/dl Direct Bilirubin (0-0.2) mg/dl AST (13-39) U/L ALT (7-52) U/L Alkaline Phosphatase (34-104) U/L Troponin I High Sens (0-14) pg/ml C-Reactive Protein (0-0.5) mg/dl Total Protein (6.0-8.3) gm/dl Albumin (3.4-5.0) gm/dl Procalcitonin (0-0.5) ng/ml Fluid Comment CSF Appearance Clear CSF Color Colorless Xanthrochromic No xanthochromia CSF WBC 320 H* (0-5) /uL CSF RBC 22 (0-) /uL CSF Cell Count Tube # 3 CSF Mononuclear WBCs % 59.0 % CSF Polynuclear WBCs % 41.0 % CSF Chemistry Tube # CSF Glucose (40-70) mg/dl CSF Total Protein (15-45) mg/dl CSF C.neoform/gat PCR DETECTED A* (NotDetected) CSF CMV DNA (PCR) Not Detected (NotDetected) CSF Enterovirus (PCR) Not Detected (NotDetected) CSF E. coli K1 (PCR) Not Detected (NotDetected) CSF H. influenzae (PCR) Not Detected (NotDetected) CSF HSV I (PCR) Not Detected (NotDetected) CSF HSV II (PCR) Not Detected (NotDetected) CSF HHV 6 (PCR) Not Detected (NotDetected) CSF L.monocytogenes PCR Not Detected (NotDetected) CSF N. meningitidis PCR Not Detected (NotDetected) CSF Parechovirus (PCR) Not Detected (NotDetected) CSF S. agalactiae (PCR) Not Detected (NotDetected) CSF S. pneumoniae (PCR) Not Detected (NotDetected) CSF VZV DNA (PCR) Not Detected (NotDetected) Lyme Disease IgG Ab (Negative) Lyme Disease IgM Ab (Negative) SARS-CoV-2 (PCR) NEGATIVE (Negative) Influenza Type A (PCR) Negative (Neg) Influenza Type B (PCR) Negative (Neg) RSV (RT-PCR) Negative (Neg) 03/01/22 03/01/22 Range/Units 20:55 21:02 WBC (4.8-10.8) K/uL RBC (4.2-5.4) M/uL Hgb (12.0-16.0) g/dL Hct (37-47) % MCV (80-100) fL MCH (25-34) pg MCHC (32-36) g/dL RDW Std Deviation (36.4-46.3) fL RDW Coeff of Jun (11.5-14.5) % Plt Count (130-400) K/uL MPV (7.4-10.4) fL Immature Gran % (Auto) % Neut % (Auto) % Lymph % (Auto) % [place] % (Auto) % Eos % (Auto) % Baso % (Auto) % Neut # (Auto) (1.4-6.5) K/uL Lymph # (Auto) (1.2-3.4) K/uL [place] # (Auto) (0.11-0.59) K/uL Eos # (Auto) (0-0.5) K/uL Baso # (Auto) (0-0.2) K/uL Immature Gran # (Auto) (0.00-0.02) K/uL Sodium (136-145) mmol/L Potassium (3.5-5.1) mmol/L Chloride (98-107) mmol/L Carbon Dioxide (21-32) mmol/L Anion Gap (3-11) BUN (6-23) mg/dl Creatinine (0.6-1.2) mg/dl Est Cr Clr Drug Dosing ml/min Est GFR ( Amer) ml/min Est GFR (Non-Af Amer) ml/min BUN/Creatinine Ratio (10-20) Glucose (70-99(Fasting)) mg/dl POC Glucose 80 (70-99) mg/dl Calcium (8.5-10.1) mg/dl Magnesium (1.7-2.4) mg/dl Total Bilirubin (0.2-1.0) mg/dl Direct Bilirubin (0-0.2) mg/dl AST (13-39) U/L ALT (7-52) U/L Alkaline Phosphatase (34-104) U/L Troponin I High Sens (0-14) pg/ml C-Reactive Protein (0-0.5) mg/dl Total Protein (6.0-8.3) gm/dl Albumin (3.4-5.0) gm/dl Procalcitonin (0-0.5) ng/ml Fluid Comment CSF Appearance CSF Color Xanthrochromic CSF WBC (0-5) /uL CSF RBC (0-) /uL CSF Cell Count Tube # CSF Mononuclear WBCs % % CSF Polynuclear WBCs % % CSF Chemistry Tube # 2 CSF Glucose 60 (40-70) mg/dl CSF Total Protein 108.5 H (15-45) mg/dl CSF C.neoform/gat PCR (NotDetected) CSF CMV DNA (PCR) (NotDetected) CSF Enterovirus (PCR) (NotDetected) CSF E. coli K1 (PCR) (NotDetected) CSF H. influenzae (PCR) (NotDetected) CSF HSV I (PCR) (NotDetected) CSF HSV II (PCR) (NotDetected) CSF HHV 6 (PCR) (NotDetected) CSF L.monocytogenes PCR (NotDetected) CSF N. meningitidis PCR (NotDetected) CSF Parechovirus (PCR) (NotDetected) CSF S. agalactiae (PCR) (NotDetected) CSF S. pneumoniae (PCR) (NotDetected) CSF VZV DNA (PCR) (NotDetected) Lyme Disease IgG Ab (Negative) Lyme Disease IgM Ab (Negative) SARS-CoV-2 (PCR) (Negative) Influenza Type A (PCR) (Neg) Influenza Type B (PCR) (Neg) RSV (RT-PCR) (Neg) Administered Medications Enoxaparin Sodium (Enoxaparin Inj 40 Mg/0.4 Ml Syr) 40 mg SQ Q24H [facility] Stop: 04/01/22 08:59 Last Admin: 03/02/22 08:00 Dose: 40 mg Documented by: [id number] Sodium Chloride (Nss 1000ml) 1,000 mls @ 100 mls/hr IV .Q10H [facility] Stop: 04/01/22 00:55 Last Admin: 03/02/22 02:55 Dose: 100 mls/hr Documented by: [id number] Magnesium Sulfate/Dextrose (Magnesium Sulfate / D5w) 1 gm in 100 mls @ 50 mls/hr IV Q2H [facility] Stop: 03/02/22 14:59 Last Admin: 03/02/22 09:40 Dose: 50 mls/hr Documented by: [id number] Infusion: 03/02/22 09:40 Dose: 50 mls/hr Documented by: [id number] Admin: 03/02/22 07:42 Dose: 50 mls/hr Documented by: [id number] Insulin Aspart (Insulin Aspart Per Unit) 0 units SC ACHS [facility] Stop: 04/01/22 07:29 Last Admin: 03/02/22 07:58 Dose: 8 units Documented by: [id number] Cosigned by: [id number] Insulin Glargine (Insulin Glargine Solostar 100 Units/Ml 3 Ml Pen) 35 units SC BID [facility] Stop: 04/01/22 05:59 Last Admin: 03/02/22 05:39 Dose: 35 units Documented by: [id number] Cosigned by: [id number] Miscellaneous (Icu Electrolyte Replacement Protocol) 1 ea N/A BID@,18 [facility]; Protocol Stop: 03/09/22 05:59 Last Admin: 03/02/22 06:44 Dose: 1 ea Documented by: [id number] Discontinued Medications Dexamethasone Sodium Phosphate (DexamethasonePf 10 Mg/Ml Vial) 10 mg IV NOW ONE Stop: 03/01/22 20:56 Last Admin: 03/01/22 21:11 Dose: 10 mg Documented by: [id number] Fluconazole (Fluconazole 100 Mg Tab) 800 mg PO NOW STA Stop: 03/01/22 23:05 Last Admin: 03/01/22 23:15 Dose: 800 mg Documented by: [id number] Gadobutrol (Gadobutrol 65ml Vial) 8.5 ml IV ONCE ONE Stop: 03/02/22 02:16 Last Admin: 03/02/22 02:15 Dose: 8.5 ml Documented by: [id number] Sodium Chloride (Nss 1000ml) 1,000 mls @ 999 mls/hr IV .Q1H1M ONE Stop: 03/01/22 19:18 Last Infusion: 03/01/22 20:11 Dose: 0 mls/hr Documented by: [id number] Admin: 03/01/22 18:39 Dose: 999 mls/hr Documented by: [id number] Magnesium Sulfate/Dextrose (Magnesium Sulfate / D5w) 1 gm in 100 mls @ 100 mls/hr IV NOW STA Stop: 03/01/22 21:03 Last Infusion: 03/01/22 21:11 Dose: 0 mls/hr Documented by: [id number] Admin: 03/01/22 20:11 Dose: 100 mls/hr Documented by: [id number] Ceftriaxone Sodium (Rocephin) 2,000 mg in 70 mls @ 140 mls/hr IV NOW STA Stop: 03/01/22 21:24 Last Infusion: 03/01/22 21:12 Dose: 0 mls/hr Documented by: [id number] Admin: 03/01/22 21:11 Dose: 140 mls/hr Documented by: [id number] Sodium Chloride (Nss 1000ml) 1,000 mls @ 999 mls/hr IV .Q1H1M ONE Stop: 03/01/22 21:55 Last Infusion: 03/01/22 22:42 Dose: 0 mls/hr Documented by: [id number] Admin: 03/01/22 21:12 Dose: 999 mls/hr Documented by: [id number] Vancomycin HCl 1,500 mg/ (Sodium Chloride) 530 mls @ 200 mls/hr IV NOW ONE Stop: 03/02/22 00:35 Last Admin: 03/01/22 23:45 Dose: Not Given Documented by: [id number] Acyclovir Sodium 800 mg/ (Dextrose) 266 mls @ 250 mls/hr IV NOW ONE Stop: 03/01/22 23:01 Last Infusion: 03/02/22 00:03 Dose: 0 mls/hr Documented by: [id number] Admin: 03/01/22 22:42 Dose: 250 mls/hr Documented by: [id number] Amphotericin B 300 mg/ (Dextrose) 325 mls @ 125 mls/hr IV NOW STA; Protocol Stop: 03/02/22 01:59 Last Infusion: 03/02/22 03:16 Dose: 0 mls/hr Documented by: [id number] Admin: 03/02/22 00:40 Dose: 125 mls/hr Documented by: [id number] Ceftriaxone Sodium 2,000 mg/ (Dextrose) 70 mls @ 100 mls/hr IV Q12H [facility]; Protocol Stop: 03/12/22 08:59 Last Admin: 03/02/22 07:50 Dose: 100 mls/hr Documented by: [id number] Vancomycin HCl 2,000 mg/ (Sodium Chloride) 540 mls @ 200 mls/hr IV NOW STA Stop: 03/02/22 05:54 Last Infusion: 03/02/22 06:12 Dose: 0 mls/hr Documented by: [id number] Admin: 03/02/22 03:30 Dose: 200 mls/hr Documented by: [id number] Calcium Chloride 1,000 mg/ (Dextrose) 60 mls @ 240 mls/hr IV NOW STA Stop: 03/02/22 06:59 Last Admin: 03/02/22 07:34 Dose: 240 mls/hr Documented by: [id number] Ioversol (Optiray 320 100ml) 100 ml IV ONCE ONE Stop: 03/02/22 00:28 Last Admin: 03/02/22 00:28 Dose: 93 ml Documented by: [id number] Morphine Sulfate (Morphine Sulfate 10 Mg/Ml Carp/Vial) 6 mg IV NOW STA Stop: 03/01/22 18:19 Last Admin: 03/01/22 18:40 Dose: 6 mg Documented by: [id number] Ondansetron HCl (Ondansetron Inj 2 Mg/Ml 2 Ml Vial) 4 mg IV NOW STA Stop: 03/01/22 18:19 Last Admin: 03/01/22 18:40 Dose: 4 mg Documented by: [id number] Ondansetron HCl (Ondansetron Inj 2 Mg/Ml 2 Ml Vial) 4 mg IV NOW STA Stop: 03/01/22 20:56 Last Admin: 03/01/22 21:11 Dose: 4 mg Documented by: [id number] Discharge Plan Visit Data Chief Complaint: Vomiting Stated Complaint: VOMITING. HERE YESTERDAY. MEDICINE NOT WORKING ED Provider: Hugo Barragan Discharge Problem: Cryptococcal meningitis, Hypomagnesemia Patient Disposition: Admitted As Inpatient Discharge Instructions Interventions: ED Discharge Assessment Last Done: 03/02/22 00:16
[2022-03-01 18:32] LABS: Basophils # (auto) 0.03 K/uL (0-0.2); Basophils % (auto) 0.3 %; Eosinophils # (auto) 0.04 K/uL (0-0.5); Eosinophils % (auto) 0.5 %; Hematocrit (blood only) 31.6 % (37-47); Hemoglobin 10.4 g/dL (12.0-16.0); Immature Granulocytes # (auto) 0.03 K/uL (0.00-0.02); Immature Granulocytes % (auto) 0.3 %; Lymphocytes # (auto) 1.41 K/uL (1.2-3.4); Lymphocytes % (auto) 16.3 %; Mean Corpuscular Hgb Conc 32.9 g/dL (32-36); Mean Corpuscular Volume 84.9 fL (80-100); Mean Platelet Volume 10.5 fL (7.4-10.4); Monocytes # (auto) 0.58 K/uL (0.11-0.59); Monocytes % (auto) 6.7 %; Neutrophils # (auto) 6.57 K/uL (1.4-6.5); Neutrophils % (auto) 75.9 %; Platelet Count 139 K/uL (130-400); RDW Coefficient of Variation 15.1 % (11.5-14.5); RDW Standard Deviation 47.4 fL (36.4-46.3); Red Blood Count 3.72 M/uL (4.2-5.4); White Blood Count 8.66 K/uL (4.8-10.8)
[2022-03-01 19:03] LABS: Troponin I High Sensitivity 10.3 pg/ml (0-14)
[2022-03-01 19:22] LABS: Albumin Level 3.9 gm/dl (3.4-5.0); BUN Creatinine Ratio 20.6 (10-20); Bilirubin Direct 0.1 mg/dl (0-0.2); Bilirubin,Total 0.7 mg/dl (0.2-1.0); C Reactive Protein 0.72 mg/dl (0-0.5); Calcium 8.9 mg/dl (8.5-10.1); Creatinine Clr Calc Pharmacy 61.9 ml/min; Est GFR (African American) 72.5 ml/min; Est GFR (Non-African American) 62.6 ml/min; Magnesium 1.6 mg/dl (1.7-2.4); Potassium 3.1 mmol/L (3.5-5.1); Total Protein 7.4 gm/dl (6.0-8.3)
[2022-03-01 19:46] LABS: Procalcitonin 0.11 ng/ml (0-0.5)
[2022-03-01 19:52] LABS: Lyme Ab IgG w/WB Rflx Negative (Negative); Lyme Ab IgM w/WB Rflx Negative (Negative)
[2022-03-01] MEDS ORDERED: MAGNESIUM SULFATE / D5W 1 GM/100 ML BAG IV STA (20:04)
[2022-03-01 20:23] LABS: Influenza A virus by PCR Negative (Neg); Influenza B virus by PCR Negative (Neg); RSV by PCR Negative (Neg); SARS CoV2 RNA(COVID-19) InHosp NEGATIVE (Negative)
[2022-03-01] MEDS ORDERED: dexAMETHasone**PF** 10 MG/ML VIAL IV ONE (20:55)
[2022-03-01] MEDS ORDERED: cefTRIAXone SODIUM 2,000 MG/70 ML BAG IV STA (20:55)
[2022-03-01 21:39] LABS: Total Protein CSF 108.5 mg/dl (15-45)
[2022-03-01 21:52] LABS: Appearance CSF Clear; CSF Count Tube # 3; CSF Xanthrochromic No xanthochromia; Color CSF Colorless; Red Blood Cell CSF (A) 22 /uL (0-); White Blood Cell CSF (B) 318 /uL (0-5)
[2022-03-01 21:53] LABS: Red Blood Cell CSF (B) 19 /uL (0-); White Blood Cell CSF (A) 320 /uL (0-5)
[2022-03-01] MEDS ORDERED: VANCOMYCIN HCL 1,500 MG in SODIUM CHLORIDE 0.9% 500 ML IV ONE (21:57)
[2022-03-01] MEDS ORDERED: VANCOMYCIN CONSULT ACTIVE PRN (21:57)
[2022-03-01] MEDS ORDERED: ACYCLOVIR SOD 800 MG in DEXTROSE 5% 250 ML IV ONE (21:58)
[2022-03-01 22:40] LABS: Cytomegalovirus PCR Not Detected (NotDetected); Enterovirus PCR Not Detected (NotDetected); Escherichia coli K1 PCR Not Detected (NotDetected); Haemophilius influenzae PCR Not Detected (NotDetected); Herpes Simplex Virus 1 PCR Not Detected (NotDetected); Herpes Simplex Virus 2 PCR Not Detected (NotDetected); Human Herpes Virus 6 PCR Not Detected (NotDetected); Human Parechovirus PCR Not Detected (NotDetected); Listeria monocytogenes PCR Not Detected (NotDetected); Neisseria meningitidis PCR Not Detected (NotDetected); Streptococcus agalactiae PCR Not Detected (NotDetected); Streptococcus pneumoniae PCR Not Detected (NotDetected); Varicella Zoster Virus PCR Not Detected (NotDetected)
[2022-03-01 22:58] LABS: Cryptococcus neoformans/ga PCR DETECTED (NotDetected)
[2022-03-01] MEDS ORDERED: FLUCONAZOLE 100 MG TAB PO STA (23:04)
[2022-03-01] MEDS ORDERED: DEXTROSE 5% IV STA (23:24)
[2022-03-01] MEDS ORDERED: AMBISOME IV STA (23:24)
--- NOTE | 2022-03-01 23:47 | History & Physical Report ---
Date of Service March 01, 2022 Assessment & Plan (1) Cryptococcal meningitis: Plan: Lynne Ye is a 61-year-old female with past medical history of anxiety/depression, hypertension, DM 2, hyperlipidemia, insomnia who presented today for evaluation of headaches. Admitted for management of cryptococcal meningitis as per lumbar puncture. Cryptococcal meningitis Start amphotericin B IV and oral Diflucan 800 mg daily At this time, will continue antibiotics with ceftriaxone and vancomycin ID consult placed for further recommendations CT chest and abdomen/pelvis ordered for evaluation of possible sources of immunosuppression MRI brain ordered for ruling out brain seeding HIV testing ordered Patient to be admitted to ICU for close monitoring Hypertension Continue home lisinoprilhydrochlorothiazide Anxiety/depression Continue home venlafaxine and mirtazapine DM2 Hold home regimen Basal insulin and SSI while admitted Nonalcoholic liver cirrhosis History of such Admission labs with normal LFTs CT abdomen/pelvis as above DVT prophylaxis: Lovenox SQ Diet: Heart healthy, DM 2 Dispo: ICU CODE STATUS: Full (2) Hypertension: (3) Depression: (4) Diabetes mellitus type 2, uncontrolled, without complications: (5) Dyslipidemia: History of Present Illness Primary Care Provider: Brendon Farfan MD Lynne Ye is a 61-year-old female with past medical history of anxiety/depression, hypertension, DM 2, hyperlipidemia, insomnia who presented today for evaluation of headaches. Patient has been having headaches for 6 weeks but worsened significantly over the past 9 days. She was seen in our emergency department yesterday for similar complaints. At that time, she had negative CT head, CTA head/neck. She im proved with Toradol injection. At that time did not have any meningeal signs. She was discharged home with instructions to follow-up with PCP or return to ED for worsening symptoms. Today, patient did have worsening headache at which point she decided to return to the emergency room for reevaluation. She presented with nausea and vomiting in addition to above-stated complaint. No fever, chills, S pain, shortness of breath, cough, palpitations, rashes, neurologic deficits. Lab work in ED remarkable for hemoglobin of 10.4, potassium of 3.1, magnesium 1.6, CRP 0.72, normal liver function tests. ED provider did perform a lumbar puncture due to worsening headaches, which resulted with 320 WBC, 108.5 total protein, 60 glucose, positive for cryptococcus. The patient has no clear source of immunosuppression at this time. Denies IV drug use. No history of STIs. At the time of evaluation, patient is comfortable in no acute distress. She had received morphine 6 mg IV as well as Zofran 4 mg IV x2. Allergies Allergy/AdvReac Type Severity Reaction Status Date / Time Penicillins Allergy Intermediate Hives Verified 03/01/22 21:26 atorvastatin Allergy Unknown CAN'T Verified 03/01/22 21:26 REMEMBER gemfibrozil [From Lopid] Allergy Unknown CAN'T Verified 03/01/22 21:26 REMEMBER acetaminophen [From Tylenol] AdvReac Severe CAN NOT Verified 03/01/22 21:26 TAKE D/T LIVER ISSUES rosuvastatin AdvReac Intermediate Muscle Pain Verified 03/01/22 21:26 Home Medications Medication Instructions Recorded Confirmed Type aspirin 81 mg tablet,delayed 81 mg PO HS 06/05/19 03/01/22 History release multivitamin 1 tab PO QAM 09/07/19 03/01/22 History Contour Next Test Strips (blood #300 ea NS 12/29/20 12/22/21 Rx sugar diagnostic) blood-glucose sensor (Dexcom G6 #3 ea 01/22/21 12/22/21 History Sensor) blood-glucose transmitter (Dexcom #1 ea 01/22/21 12/22/21 History G6 Transmitter) mirtazapine 30 mg tablet 30 mg PO HS #90 tab 05/06/21 03/01/22 Rx ibuprofen 200 mg tablet (Advil) 200 mg PO Q6H PRN 06/15/21 03/01/22 History venlafaxine 150 mg 300 mg PO HS #180 cap 07/01/21 03/01/22 Rx capsule,extended release 24 hr (Effexor XR) Omnipod Dash Pods (Gen 4) (insulin #45 ea NS 09/15/21 Rx pump cartridge) acetone (urine) test (Ketostix) #50 ea 10/14/21 12/22/21 Rx pen needle, diabetic 32 gauge x #120 ea 11/06/21 12/22/21 Rx 5/32" (BD Ultra-Fine Jody Pen Needle) lisinopril 10 1 tab PO HS #30 tab 12/28/21 03/01/22 Rx mg-hydrochlorothiazide 12.5 mg tablet etodolac 200 mg capsule 200 mg PO Q12H PRN #14 cap 02/28/22 03/01/22 Rx ondansetron 4 mg disintegrating 4 mg PO Q8H PRN #30 tab 02/28/22 03/01/22 Rx tablet insulin aspart U-100 100 unit/mL 0 unit SUBCUT TIDM 03/01/22 03/01/22 History (3 mL) subcutaneous pen insulin glargine U-300 conc 300 68 unit SUBCUT QPM 03/01/22 03/01/22 History unit/mL (1.5 mL) subcutaneous pen (Toujeo SoloStar U-300 Insulin) Past Med/Surg History Medical History Anxiety Cirrhosis of liver FOLLOWS W/ [facility] Stable currently Depression Diabetes mellitus, type 2 IDDM Glucose fluctuates - since Covid in December 2020 On insulin pump Follows with endocrinology Dupuytren's contracture of hand Bilateral hands Dyslipidemia History of COVID-12 January 2021 > MNMNC, not hospitalized, fever, ear pain- did give infusion in ER No current issues Hypertension IBS (irritable bowel syndrome) Stable Insomnia Kidney stones FOLLOWS WITH DR FUCHS No current issues - monitoring currently Surgical History History of cystoscopy WITH STENTS AND STONE BASKETING History of lithotripsy History of tonsillectomy and adenoidectomy History of total hip arthroplasty LEFT Hx laparoscopic cholecystectomy Hx of colonoscopy Hx of surgical amputation of finger left pinky Hx of total hysterectomy GERALD WITH BSO Hx of tubal ligation Hx of wisdom tooth extraction Family History Father Family history of diabetes mellitus Coronary heart disease Brother Family history of diabetes mellitus Mother Family history of diabetes mellitus Heart disease Hypertension Grandfather (Paternal) Family history of diabetes mellitus Grandmother (Paternal) Family history of diabetes mellitus Denies family history of Ovarian cancer Breast cancer Colorectal cancer Social History Smoking Status: Never smoker Cigarettes Per Day: 06/2018; Second Hand Exposure: Yes; Hx Alcohol Use: No Hx Substance Use: No Preferred Language: Spanish Communication Ability: Effective Visual Impairment: No Limitations Human Resources Training Manager Required: No Beliefs That Will Affect Care: None marital status: Single Current Living Situation: Alone current occupational status: employed and disabled current occupation: [employer]-pt does have disability for diabetes- insurance helps Feels Safe at Home: Yes Childhood Exposure to Second-Hand Smoke: No caffeine: Yes Dental Care, Regularly: No Physical Activity Frequency: Does not Exercise Seatbelt Use: always Sunscreen Use: Yes Assistive Devices: None Review of Systems Review of Systems: All systems reviewed & are unremarkable except as noted in HPI & below Physical Exam Physical Exam: GENERAL: A&Ox3. NAD. HEENT: PERRL, EOMI. Moist mucous membranes. NECK: No JVD. No lymphadenopathy. No meningismus. CHEST/LUNGS: CTAB A/P. No crackles, wheezes, rales, rhonchi. HEART: RRR. No m/g/r. No carotid bruits. ABDOMEN: NT/ND, soft. BS+ x4 EXTREMITIES: No cyanosis, no clubbing, no edema SKIN: Warm and dry. No rashes or lesions. PSYCHIATRIC: Euthymic affect, no SI, no pressured speech, no hallucinations NEUROLOGIC: No FND. Results & Data Results & Data ([facility]) Vital Signs (Past 12 Hours) Vital Signs Temp Pulse Pulse Resp BP BP Pulse Ox 03/01/22 23:21 88 18 123/66 95 03/01/22 18:42 88 19 112/65 93 03/01/22 17:46 36.7 C 90 20 125/69 97 Code Status & VTE Plan VTE Prophylaxis Plan VTE Prophylaxis will be ordered: Yes Critical Care Time 40 minutes Supervising Physician Co-Signing Physician Notes Attending addendum: I have physically seen this patient, have supervised the medical residents activities, and agree with the H&P unless as otherwise noted. Assessment and Plan: Cryptococcal meningitis- Liposomal amphotericin B IV per pharmacokinetic monitoring Fluconazole 800 mg p.o. daily With initial report of abnormal LP, ED had appropriately started patient on vancomycin IV, ceftriaxone IV, dexamethasone IV and acyclovir IV Will continue vancomycin IV and ceftriaxone IV Order CT chest/abdomen/pelvis to assess for possible source MRI brain ordered and pending HIV testing ordered Admit to ICU for close monitoring Hypertension- For now continue lisinopril/HCTZ, but if significant electrolyte abnormalities due to amphotericin B, would place it on hold Anxiety with depression- Continue venlafaxine and mirtazapine Diabetes mellitus- Continue Toujeo Placed on Accu-Cheks before meals and at bedtime with NovoLog coverage per scale Resident Activity Tracking Resident Involvement: Resident Care Provided Care Provided: Adult Hospital Medicine (1) Depression Depression Type: unspecified Qualified Code(s): F32.9 - Major depressive disorder, single episode, unspecified (2) Hypertension Hypertension type: essential hypertension Qualified Code(s): I10 - Essential (primary) hypertension
[2022-03-02] MEDS ORDERED: OPTIRAY 320 100ml IV ONE (00:27)
[2022-03-02] MEDS ORDERED: DEXTROSE 50% 50 ML SYRINGE IV PRN (00:56)
[2022-03-02] MEDS ORDERED: ABELCET IV SCH (00:56)
[2022-03-02] MEDS ORDERED: ONDANSETRON 4 MG OD TAB PO PRN (00:56)
[2022-03-02] MEDS ORDERED: VANCOMYCIN CONSULT ACTIVE PRN (00:56)
[2022-03-02] MEDS ORDERED: PHARMACY GLYCEMIC MGMT CONSULT PRN (00:56)
[2022-03-02] MEDS ORDERED: CARBOHYDRATES FOR HYPOGLYCEMIA PO PRN (00:56)
[2022-03-02] MEDS ORDERED: GLUCOSE 10 TABS/TUBE PO PRN (00:56)
[2022-03-02] MEDS ORDERED: ICU PROTOCOL FOR HYPERGLYCEMIA PRN (00:56)
[2022-03-02] MEDS ORDERED: GLUCOSE 40% GEL 15 GM TUBE PO PRN (00:56)
[2022-03-02] MEDS ORDERED: GLUCAGON FOR INJ 1 MG VIAL SQ PRN (00:56)
[2022-03-02] MEDS ORDERED: DEXTROSE 5% IV SCH (00:56)
--- NOTE | 2022-03-02 01:10 | Critical Care Consultation ---
Date of Consultation March 02, 2022 Assessment & Plan (1) Cryptococcal meningitis: Impression: 61-year-old female presents to the ICU following diagnosis of cryptococcal meningitis with positive CSF bio fire from LP. Now undergoing treatment with amphotericin B and fluconazole regimen. Neuro - Meningitispatient with LP positive for cryptococcus on bio fire. Elevated WBC and total protein in CSF -Symptoms as noted in HPI. Current CT and MRI imaging negative for acute intracranial findings. No hydrocephalus -Received 10 mg dexamethasone in the ED, will hold on further glucocorticoid use for now -CT chest and abdomen without clear source of other infection -HIV and hepatitis panels pendinG, currently without clear reason for opportunistic infection as patient is not immunosuppressed. -Started on amphotericin B and fluconazole regimen -ID consulted, follow-up recs Anxiety and depressioncontinue home venlafaxine and mirtazapine Cardiac - Currently hemodynamically stable and normal sinus rhythm on monitor. Continuous monitor on telemetry Hold lisinoprilhydrochlorothiazide Respiratory - Currently maintaining oxygen saturation on 3 L nasal cannula. No history of pulmonary disease. CT chest with evidence of atelectasis and 7 mm nodule in the left upper lobe Currently on broad-spectrum antibiotics but no clear sign of pneumonia Continuous monitoring on pulse ox. Wean oxygen as indicated GI - DM type II/heart healthy diet History of Dhillon cirrhosisCT abdomen pelvis demonstrating cirrhosis. Normal LFTs and no signs of liver failure -Continue to monitor for now RENAL/LYTES - Monitor frequent BMPs for the time being as patient is currently undergoing t reatment with amphotericin B and is at high risk for electrolyte abnormalities. Replete as indicated - Strict I's and O's ENDO - DM type IIhold home insulin pump and follow-up hemoglobin A1c -Continue basal and sliding scale -ICU hyperglycemic protocol HEME - H&H stable and platelets stable, monitor routine CBCs ID - Patient appears to have cryptococcal meningitis following LP with bio fire. See treatment above Given Rocephin and vancomycin in ED No clear source of bacterial infection at this time. Imaging as above Trend fever curve LINES/IV ACCESS - Peripheral IVs DVT PROPHYLAXIS - SCDs, Lovenox Thank you for allowing us to participate in the care of this patient. Please refer to my attending physician's documentation for any further recommendations. (2) Migraine headache: (3) Cirrhosis of liver: (4) Diabetes mellitus type 2, uncontrolled, without complications: (5) Dyslipidemia: (6) Irritable bowel syndrome: (7) Other chronic nonalcoholic liver disease: (8) Dizziness: (9) Nausea: History of Present Illness Attending Physician: Garett Stevens MD History of Present Illness Patient is a 61-year-old female past medical history significant for anxiety/depression, HTN, DM type II, HLD, insomnia who presented to the emergency department earlier this evening for eval for headaches. Patient states that she has been having headaches for the past 6 weeks which have gotten significantly worse over the past week and a half with associated photophobia, malaise and fatigue, and difficulty walking. She presented to the emergency department yesterday and underwent CT head along with CTA head and neck which for unremarkable, and she was discharged home with orders to follow-up with PCP. She began to have worsening headache earlier today and presented again to the emergency department. She was also having symptoms of nausea and vomiting. She underwent LP which showed elevated WBC, total protein, and was positive for cryptococcus. As of now, patient has no identifiable risk factors for cryptococcal meningitis. She was started on amphotericin B and fluconazole and was asked to be admitted to the ICU. She did receive 10 mg dexamethasone in the ED. CT abdomen pelvis was performed which was negative for acute process. CT chest did show some mild atelectasis and focal nodular 7 mm density in the posterior aspect of the left upper lobe. MRI without acute intracranial findings. On arrival to the ICU the patient is alert and oriented and only complains of headache at this time. Patient states that nausea and vomiting has since improved. She currently denies syncope, dizziness, changes in vision, fevers, s ore throat, cough or congestion, shortness of breath, chest pain or palpitations, abdominal pain, diarrhea, numbness or tingling. Allergies Allergy/AdvReac Type Severity Reaction Status Date / Time Penicillins Allergy Intermediate Hives Verified 03/01/22 21:26 atorvastatin Allergy Unknown CAN'T Verified 03/01/22 21:26 REMEMBER gemfibrozil [From Lopid] Allergy Unknown CAN'T Verified 03/01/22 21:26 REMEMBER acetaminophen [From Tylenol] AdvReac Severe CAN NOT Verified 03/01/22 21:26 TAKE D/T LIVER ISSUES rosuvastatin AdvReac Intermediate Muscle Pain Verified 03/01/22 21:26 Home Medications Medication Instructions Recorded Confirmed Type aspirin 81 mg tablet,delayed 81 mg PO HS 06/05/19 03/01/22 History release multivitamin 1 tab PO QAM 09/07/19 03/01/22 History Contour Next Test Strips (blood #300 ea NS 12/29/20 12/22/21 Rx sugar diagnostic) blood-glucose sensor (Dexcom G6 #3 ea 01/22/21 12/22/21 History Sensor) blood-glucose transmitter (Dexcom #1 ea 01/22/21 12/22/21 History G6 Transmitter) mirtazapine 30 mg tablet 30 mg PO HS #90 tab 05/06/21 03/01/22 Rx ibuprofen 200 mg tablet (Advil) 200 mg PO Q6H PRN 06/15/21 03/01/22 History venlafaxine 150 mg 300 mg PO HS #180 cap 07/01/21 03/01/22 Rx capsule,extended release 24 hr (Effexor XR) Omnipod Dash Pods (Gen 4) (insulin #45 ea NS 09/15/21 Rx pump cartridge) acetone (urine) test (Ketostix) #50 ea 10/14/21 12/22/21 Rx pen needle, diabetic 32 gauge x #120 ea 11/06/21 12/22/21 Rx 5/32" (BD Ultra-Fine Jody Pen Needle) lisinopril 10 1 tab PO HS #30 tab 12/28/21 03/01/22 Rx mg-hydrochlorothiazide 12.5 mg tablet etodolac 200 mg capsule 200 mg PO Q12H PRN #14 cap 02/28/22 03/01/22 Rx ondansetron 4 mg disintegrating 4 mg PO Q8H PRN #30 tab 02/28/22 03/01/22 Rx tablet insulin aspart U-100 100 unit/mL 0 unit SUBCUT TIDM 03/01/22 03/01/22 History (3 mL) subcutaneous pen insulin glargine U-300 conc 300 68 unit SUBCUT QPM 03/01/22 03/01/22 History unit/mL (1.5 mL) subcutaneous pen (Toujeo SoloStar U-300 Insulin) Patient History Medical History Anxiety Cirrhosis of liver FOLLOWS W/ [facility] Stable currently Depression Diabetes mellitus, type 2 IDDM Glucose fluctuates - since Covid in December 2020 On insulin pump Follows with endocrinology Dupuytren's contracture of hand Bilateral hands Dyslipidemia History of COVID-12 January 2021 > MNMNC, not hospitalized, fever, ear pain- did give infusion in ER No current issues Hypertension IBS (irritable bowel syndrome) Stable Insomnia Kidney stones FOLLOWS WITH DR FUCHS No current issues - monitoring currently Surgical History History of cystoscopy WITH STENTS AND STONE BASKETING History of lithotripsy History of tonsillectomy and adenoidectomy History of total hip arthroplasty LEFT Hx laparoscopic cholecystectomy Hx of colonoscopy Hx of surgical amputation of finger left pinky Hx of total hysterectomy GERALD WITH BSO Hx of tubal ligation Hx of wisdom tooth extraction Family History Father Family history of diabetes mellitus Coronary heart disease Brother Family history of diabetes mellitus Mother Family history of diabetes mellitus Heart disease Hypertension Grandfather (Paternal) Family history of diabetes mellitus Grandmother (Paternal) Family history of diabetes mellitus Denies family history of Ovarian cancer Breast cancer Colorectal cancer Social History Smoking Status: Never smoker Cigarettes Per Day: 06/2018; Second Hand Exposure: Yes; Hx Alcohol Use: No Hx Substance Use: No Preferred Language: Hungarian Communication Ability: Effective Visual Impairment: No Limitations Sports Medicine Coordinator Required: No Beliefs That Will Affect Care: None marital status: Single Current Living Situation: Alone current occupational status: employed and disabled current occupation: [employer]-pt does have disability for diabetes- insurance helps Other Information That Helps Us Care for You: No Feels Safe at Home: Yes Safety Concerns: Feels Safe At This Time Childhood Exposure to Second-Hand Smoke: No caffeine: Yes Dental Care, Regularly: No Physical Activity Frequency: Does not Exercise Seatbelt Use: always Sunscreen Use: Yes Assistive Devices: Glasses Review of Systems Review of Systems: All systems reviewed & are unremarkable except as noted in HPI & below Physical Exam Constitutional: cooperative and comfortable Eyes: PERRL, conjunctivae normal, anicteric sclerae ENMT: external ear and nose normal, oropharynx normal Neck: trachea midline, no thyromegaly Respiratory: normal respiratory effort, lungs clear to auscultation Cardiovascular: RRR, no murmur, no edema Heart Sounds: normal S1 and normal S2 Vessels: no JVD Extremities: no edema Gastrointestinal (Abdomen): normal bowel sounds, soft, nontender, no hepatosplenomegaly Skin: no rashes, warm and dry Neurologic: PERRL, EOMI, accommodation nl, no face palsy, no dysarthria Motor/Sensory: normal movement and no sensory deficit Psychiatric: A+Ox3, euthymic affect Results & Data Results & Data ([facility]) Vital Signs (Past 12 Hours) Vital Signs Temp Pulse Pulse Resp BP BP Pulse Ox 03/02/22 01:05 85 03/02/22 00:39 37.7 C H 83 16 117/72 93 03/02/22 00:35 85 19 117/72 96 03/02/22 00:00 87 17 117/69 94 03/01/22 23:21 88 18 123/66 95 03/01/22 18:42 88 19 112/65 93 03/01/22 17:46 36.7 C 90 20 125/69 97 Coding Level of Care Code 10429 Inpt Consult Level 4 Diagnoses Migraine headache G43.909 Intractability: not intractable Migraine type: unspecified Status migrainosus presence: without status migrainosus Cirrhosis of liver K74.60 Diabetes mellitus type 2, uncontrolled, without complications Dyslipidemia E78.5 Irritable bowel syndrome K58.9 Other chronic nonalcoholic liver disease K76.89 Cryptococcal meningitis B45.1 Dizziness R42 Nausea R11.0 (1) Migraine headache Intractability: not intractable Migraine type: unspecified Status migrainosus presence: without status migrainosus Qualified Code(s): G43.909 - Migraine, unspecified, not intractable, without status migrainosus
[2022-03-02] MEDS ORDERED: GADOBUTROL 65ML VIAL IV ONE (02:15)
[2022-03-02] MEDS: SODIUM CHLORIDE 0.9% 1000ML 1,000 ML IV SCH ×3 (02:55→20:14)
[2022-03-02] MEDS ORDERED: VANCOMYCIN HCL 2,000 MG in SODIUM CHLORIDE 0.9% 500 ML IV STA (03:13)
[2022-03-02] MEDS ORDERED: AMPHOTERICIN B CONSULT ACTIVE PRN (04:05)
[2022-03-02 05:46] LABS: Basophils # (auto) 0.01 K/uL (0-0.2); Basophils % (auto) 0.1 %; Hematocrit (blood only) 27.7 % (37-47); Hemoglobin 9.2 g/dL (12.0-16.0); Immature Granulocytes # (auto) 0.02 K/uL (0.00-0.02); Immature Granulocytes % (auto) 0.3 %; Lymphocytes # (auto) 0.94 K/uL (1.2-3.4); Lymphocytes % (auto) 11.9 %; Mean Corpuscular Hemoglobin 28.4 pg (25-34); Mean Corpuscular Hgb Conc 33.2 g/dL (32-36); Mean Corpuscular Volume 85.5 fL (80-100); Mean Platelet Volume 10.1 fL (7.4-10.4); Monocytes # (auto) 0.12 K/uL (0.11-0.59); Monocytes % (auto) 1.5 %; Neutrophils # (auto) 6.79 K/uL (1.4-6.5); Neutrophils % (auto) 86.2 %; Platelet Count 110 K/uL (130-400); RDW Coefficient of Variation 15.1 % (11.5-14.5); RDW Standard Deviation 47.7 fL (36.4-46.3); Red Blood Count 3.24 M/uL (4.2-5.4); White Blood Count 7.88 K/uL (4.8-10.8)
[2022-03-02] MEDS ORDERED: ICU ELECTROLYTE REPLACEMENT PROTOCOL SCH (06:00)
[2022-03-02] MEDS ORDERED: INSULIN GLARGINE SOLOSTAR 100 UNITS/ML 3 ML PEN SC SCH (06:00)
[2022-03-02 06:27] LABS: Albumin Level 3.2 gm/dl (3.4-5.0); BUN Creatinine Ratio 21.3 (10-20); Bilirubin Direct 0.1 mg/dl (0-0.2); Bilirubin,Total 0.6 mg/dl (0.2-1.0); Calcium 7.7 mg/dl (8.5-10.1); Creatinine Clr Calc Pharmacy 69.4 ml/min; Est GFR (African American) 80.5 ml/min; Est GFR (Non-African American) 69.5 ml/min; Magnesium 1.7 mg/dl (1.7-2.4); Phosphorus 3.7 mg/dl (2.5-4.9); Total Protein 6.2 gm/dl (6.0-8.3)
[2022-03-02] MEDS ORDERED: CALCIUM CHLORIDE 10% 1,000 MG in DEXTROSE 5% 50 ML IV STA (06:45)
[2022-03-02] MEDS: MAGNESIUM SULFATE / D5W 1 GM/100 ML BAG IV SCH ×4 (07:42→13:54)
[2022-03-02] MEDS: INSULIN ASPART PER UNIT SC SCH ×4 (07:58→21:50)
[2022-03-02] MEDS: ENOXAPARIN INJ 40 MG/0.4 ML SYR SQ SCH (08:00)
[2022-03-02] MEDS ORDERED: cefTRIAXone SODIUM 2,000 MG in DEXTROSE 5% 50 ML IV SCH (09:00)
--- NOTE | 2022-03-02 09:05 | Magnetic Resonance Report ---
MR brain wo/w con CLINICAL HISTORY: cryptococcal meningitis TECHNIQUE: Multiplanar and multisequence MR images of the brain were obtained prior to and following administration of gadolinium contrast. Comparison: None available at the time of this dictation. FINDINGS: No abnormal restricted diffusion is identified. The white matter is unremarkable. The ventricular sys tem is normal in appearance. No mass or abnormal enhancement is seen. There is no mass effect or midl ine shift. There is no evidence of acute intraparenchymal hemorrhage. No extra axial fluid collection s are seen. The corpus callosum, pituitary gland, and cerebellar tonsils appear grossly unremarkable. Flow voids of the major intracranial arterial vessels are identified. The imaged portions of the para nasal sinuses, mastoid air cells, and orbits are unremarkable. IMPRESSION: No acute abnormalities, in particular no enhancing lesions to suggest cryptococcal meningitis. ACT 112: Negative or not required by law. Electronically signed by: Sukhjinder Orozco M.D. 03/02/2022 9:03 AM
--- NOTE | 2022-03-02 09:10 | Communication Note ---
Date of Service: March 02, 2022 Patient seen and examined. Discussed on multidisciplinary rounds and with critical care NEIDA from overnight. Discussed with bedside nurse and interviewed patient as well. 61-year-old female with progressive headaches. CT and MRI of the brain unrevealing. LP demonstrated pleocytosis with PCR positive for cryptococcus. She has been initiated on Amphotericin fluconazole vancomycin and Rocephin. Given the positive PCR we will discontinue Rocephin vancomycin. Continue Amphotericin. Will discuss with pharmacy flucytosine. ID consultation is pending. No signs of hydrocephalus. Continue to monitor electrolytes. Patient will likely need 2 weeks at least of parenteral therapy. ID consultation and follow-up will be critical in determining disposition for this patient. Unclear if she might be a candidate to go home with parenteral antimicrobials. HIV pending. No risk factors. No obvious signs of immune suppression She appears stable from medical standpoint to transfer out of the intensive care unit. Will contact the hospitalist and transfer her to the floor and critical care services will sign off at this point time. Feel free to contact us should the patient's clinical condition change or if additional questions from a critical care standpoint should arise. Coding Level of Care Code Critical Care tonya addt'l 30 min
--- NOTE | 2022-03-02 09:21 | CT Scan Report ---
CT chest diagnostic w con CLINICAL HISTORY: hypoxia TECHNIQUE: Multidetector row helical CT of the chest was performed with intravenous contrast. Coronal and sagittal reformations were obtained. Automated dose lowering techniques and/or adjustment accord ing to patient size were utilized for this exam. CT DOSE: 920.43 mGy.cm Comparison: None available at the time of this dictation. FINDINGS: Lungs and pleura: Atelectasis versus scarring is seen in the dependent portions of the lungs. No evid ence of consolidation. There is a 7 mm nodule in the left upper lobe (series 6 image 46). Heart and pericardium: Lipomatous hypertrophy of the interatrial septum is incidentally noted. Vessels: Severe atherosclerotic changes in the aorta and coronary arteries. Mediastinum and trudy: Subcentimeter lymph nodes are seen. Chest wall and lower neck: Unremarkable. Abdomen: Cirrhotic contour of the liver is seen. Patient is status post cholecystectomy. Bones: Degenerative changes in the thoracic spine. IMPRESSION: No evidence of acute abnormality and in particular no pneumonia is seen. ACT 112: Negative or not required by law. Electronically signed by: Sukhjinder Orozco M.D. 03/02/2022 9:19 AM
--- NOTE | 2022-03-02 09:25 | CT Scan Report ---
CT abd pelvis IV con only CLINICAL HISTORY: liver cirrhosis, cryptococcal meningitis TECHNIQUE: Helical axial images of the abdomen and pelvis were obtained and displayed. Automated dose lowering techniques and/or adjustment according to patient size were utilized for this exam. This e xam was performed with intravenous contrast. COMPARISON: None available at the time of this dictation. FINDINGS: Lower chest: For findings above the diaphragm, please see CT chest performed same day. Liver: Nodular contour of the liver is seen compatible with cirrhosis. Gallbladder and biliary tree: Patient is status post cholecystectomy. No intra- or extrahepatic bilia ry ductal dilation. Pancreas: Unremarkable, no focal lesions. Spleen: Unremarkable. Adrenals: Unremarkable. Kidneys and ureters: Nonobstructive nephrolithiasis is seen. Bladder: Unremarkable. Reproductive organs: Unremarkable. Bowel: Unremarkable. Lymph nodes Retroperitoneal: Subcentimeter markell hepatis nodes are noted. Mesenteric: Unremarkable. Pelvic: Unremarkable. Peritoneum: Normal. Vessels: Atherosclerotic calcifications are seen. Abdominal wall: Unremarkable. Bones: Left total hip arthroplasty is noted. IMPRESSION: No acute abnormalities. Cirrhosis is again noted. ACT 112: Negative or not required by law. Electronically signed by: Sukhjinder Orozco M.D. 03/02/2022 9:24 AM
[2022-03-02 10:47] LABS: BUN Creatinine Ratio 20.8 (10-20); Calcium 8.6 mg/dl (8.5-10.1); Creatinine Clr Calc Pharmacy 58.3 ml/min; Est GFR (African American) 65.2 ml/min; Est GFR (Non-African American) 56.2 ml/min; Magnesium 2.2 mg/dl (1.7-2.4); Phosphorus 4.1 mg/dl (2.5-4.9); Potassium 3.6 mmol/L (3.5-5.1)
[2022-03-02 10:49] LABS: INR 1.1 (0.9-1.1); Prothrombin Time 11.9 Seconds (9.0-12.0)
--- NOTE | 2022-03-02 11:15 | Medical Student Progress Note ---
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 Now undergoing treatment with amphotericin B and fluconazole regimen. 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 Elevated WBC and total protein in CSF -Symptoms as noted in HPI. Current CT and MRI imaging negative for acute intracranial findings. No hydrocephalus -Received 10 mg dexamethasone in the ED, will hold on further glucocorticoid use for now -CT chest and abdomen without clear source of other infection -HIV and hepatitis panels pending, currently without clear reason for opportunistic infection as patient is not on immunosuppressives but pt has diabetes and cirrhosis as potential source -Started on amphotericin B and fluconazole regimen. Per pharmacy, flucytosine to be ordered for tomorrow morning in case ID recommends starting. -Q6h bmp and mg2+, hypomagnesemia repleted with 4g IV, CBC & hepatic panel daily -ID consulted, follow-up recs -Trend fever curve Anxiety and depression -continue home venlafaxine and mirtazapine Hypertension -continue lisinoprilhydrochlorothiazide History of Dhillon cirrhosisCT abdomen pelvis demonstrating cirrhosis. Normal LFTs and no signs of liver failure -Continue to monitor as above Thrombocytopenia - Plts dec 139 to 110; monitor DM type II -Continue basal and sliding scale -glucose goal 140 to 180 mg -pharm glycemic consult in place HLD -allergic to statin -follow up with primary care regarding treatment DVT PROPHYLAXIS - SCDs, Lovenox, ASA 81mg FEN/GI-heart healthy diet CODE: Full Code Disposition: PCU (2) Migraine headache: Intractability: not intractable Migraine type: unspecified Status migrainosus presence: without status migrainosus Qualified Code(s): G43.909 - Migraine, unspecified, not intractable, without status migrainosus (3) Cirrhosis of liver: (4) Diabetes mellitus type 2, uncontrolled, without complications: (5) Dyslipidemia: (6) Irritable bowel syndrome: (7) Other chronic nonalcoholic liver disease: (8) Dizziness: (9) Nausea: Admission and Anticipated Discharge Date Admission Date: March 01, 2022 Supervising Attestation I personally examined the patient and verified all fish points of history and exam, discussed case, and agree with decision making with A Mindi MS2 headache, but better than before. no new visual changes. mentally feels OK. son present vitals noted nad heent nc at mmm breathing unlabored no accessory muscles good effort skin no rashes no pallor or icterus neuro no focal deficits cryptococcal meningitis - continue ampho B and fluconazole for now (facility does not have flucytosine, nor the ability to monitor in timely fashion - but she clinically is looking improved and appears safe to continue), serial exams (no worrisome signs of increased ICP at this time), await ID input, continue supportive care. HIV pending, but risks appear to be cirrhosis + uncontrolled DM cirrhosis - checking INR. bili reassuring uncontrolled DM - insulin management inpatient. started to educate on comprehensive DM management outpt DVT proph - lovenox otherwise as above Subjective Today pt apettite still low, mild cough, some dizziness, fatigue, neck not as stiff, no headache, no photophobia. Physical Exam Constitutional: cooperative and comfortable Eyes: PERRL, conjunctivae normal, anicteric sclerae Respiratory: normal resp effort, diffuse b/l crackles Cardiovascular: rrr no murmurs, rubs or gallops. foot edema present Skin: no rashes, warm and dry Neurologic: PERRL, EOMI, accommodation nl, no face palsy, no dysarthria Motor/Sensory: normal movement and no sensory deficit (reflexes 1+, 5/5 strength in all extremities) Psychiatric: A+Ox3, euthymic affect Results & Data ([facility]) Vital Signs (Past 12 Hours) Vital Signs Temp Pulse Pulse Resp BP BP Pulse Ox 03/02/22 08:00 74 12 96 03/02/22 07:00 36.8 C 80 20 129/78 92 03/02/22 05:30 76 16 94 03/02/22 05:00 79 20 119/77 92 03/02/22 04:30 77 16 94 03/02/22 04:00 37.7 C H 75 17 107/55 L 92 03/02/22 03:30 80 16 90 03/02/22 03:00 79 18 109/73 92 03/02/22 02:39 79 16 111/67 96 03/02/22 02:36 78 17 03/02/22 01:30 83 29 H 94 03/02/22 01:05 85 03/02/22 01:00 90 25 H 105/86 06/07/22 00:39 37.7 C H 83 16 117/72 93 03/02/22 00:35 85 19 117/72 96 03/02/22 00:00 87 17 117/69 94 03/01/22 23:21 88 18 123/66 95
[2022-03-02] MEDS ORDERED: INSULIN GLARGINE SOLOSTAR 100 UNITS/ML 3 ML PEN SC ONE (13:00)
--- NOTE | 2022-03-02 14:31 | Pharmacy Report ---
Pharmacy Glycemic Short Note 2 - Date of Service March 02, 2022 - Glycemic Short BSG Results (Last 24 hours): 03/01/22 03/01/22 03/02/22 18:00 21:02 00:00 Glucose 86 POC Glucose 80 127 H 03/02/22 03/02/22 03/02/22 00:46 05:30 07:30 Glucose 282 H POC Glucose 143 H 294 H 03/02/22 03/02/22 10:03 11:32 Glucose 288 H POC Glucose 297 H OUTPATIENT ANTIDIABETIC REGIMEN: * Toujeo 68 units QPM * Novolog CF 30, CR 2 * A1c 9.4% 12/18/21 ASSESSMENT: * Patient admitted with cryptococcal meningitis, currently being treated with fluconazole + amphotericin B * Patient received a dose of dexamethasone 10 mg x1 last night, BSGs elevated this morning suspect secondary to steroid and lantus does held last evening * Patient received 35 units of lantus this morning, gave additional dose with lunch as BSG still elevated, will hold off on further dosing as suspect the dexamethasone will start to wear off overnight. * Will continue to tighten novolog parameters as needed PLAN FOR INPATIENT GLYCEMIC CONTROL: * Hold outpatient oral diabetes medications * Basal insulin * Lantus 35 units SQ this AM, additional 35 units with lunch * Bolus insulin * NovoLog per scale ACHS or Q6hrs while NPO * Goal Range: Low 110 mg/dL - High 140 mg/dL * Correction Factor: 25 mg/dL/unit * Nutritional / Prandial insulin per carb ratio of 1 unit per 4 grams CHO consumed
[2022-03-02] MEDS ORDERED: VANCOMYCIN HCL 1,000 MG in SODIUM CHLORIDE 0.9% 250 ML IV SCH (16:00)
[2022-03-02 17:28] LABS: BUN Creatinine Ratio 21.5 (10-20); Calcium 8.7 mg/dl (8.5-10.1); Est GFR (African American) 55.5 ml/min; Est GFR (Non-African American) 47.9 ml/min; Magnesium 2.8 mg/dl (1.7-2.4); Phosphorus 3.7 mg/dl (2.5-4.9); Potassium 3.7 mmol/L (3.5-5.1)
[2022-03-02] MEDS ORDERED: INSULIN ASPART PER UNIT SC ONE (17:30)
[2022-03-02] MEDS ORDERED: FLUCONAZOLE 100 MG TAB PO SCH (18:00)
--- NOTE | 2022-03-02 18:09 | Billing Data ---
Date of Service March 02, 2022 Coding Level of Care Code 19998 Subseq Hosp Care Lvl 3
[2022-03-02] MEDS: AMBISOME IV SCH (20:13)
[2022-03-02] MEDS: DEXTROSE 5% IV SCH (20:13)
[2022-03-02] MEDS: VENLAFAXINE HCL XR 150 MG CAPXR PO SCH (20:18)
[2022-03-02] MEDS: MIRTAZAPINE TAB 15 MG TAB PO SCH (20:18)
[2022-03-02] MEDS: LISINOPRIL/HCTZ 10/12.5MG TAB PO SCH (20:18)
[2022-03-02] MEDS: ASPIRIN 81 MG ECTAB PO SCH (20:18)
--- NOTE | 2022-03-02 20:58 | Billing Data ---
Date of Service March 02, 2022 Coding Level of Care Code Critical Care 1st - mins
[2022-03-02 23:17] LABS: BUN Creatinine Ratio 25.4 (10-20); Calcium 8.8 mg/dl (8.5-10.1); Creatinine Clr Calc Pharmacy 52.3 ml/min; Est GFR (African American) 57.2 ml/min; Est GFR (Non-African American) 49.4 ml/min; Magnesium 2.5 mg/dl (1.7-2.4); Phosphorus 3.4 mg/dl (2.5-4.9); Potassium 3.3 mmol/L (3.5-5.1)
[2022-03-03] MEDS: INSULIN ASPART PER UNIT SC SCH ×6 (00:58→20:49)
[2022-03-03] MEDS: SODIUM CHLORIDE 0.9% 1000ML 1,000 ML IV SCH ×2 (06:38→18:34)
--- NOTE | 2022-03-03 07:23 | Hospitalist Progress Note ---
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 Now undergoing treatment with amphotericin B and fluconazole regimen. 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 Elevated WBC and total protein in CSF -Symptoms as noted in HPI. Current CT and MRI imaging negative for acute intracranial findings. No hydrocephalus -Received 10 mg dexamethasone in the ED, will hold on further glucocorticoid use for now -Given Vancomycin, ceftriaxone, acyclovir initially. D/C'ed due to fungal fungal etiology. -CT chest and abdomen without clear source of other infection -HIV and hepatitis panels negative. -Cirrhosis and DM known risk factors for Cryptococcal meningitis. -Started on amphotericin B and fluconazole regimen on admission - flucytosine not readily available in hospital. -Pharmacy ordered flucytosine, started flucytosine 03/03, ideal body weight dosing, QID. Will monitor CBC, BMP daily and monitor for symptoms of nausea/vomting. -If patient w/ worsening headaches or mentation, consider LP for therapeutic relief of increased ICP. -ID consulted, follow-up recs -Trend fever curve Anxiety and depression -continue home venlafaxine and mirtazapine Hypertension -continue lisinoprilhydrochlorothiazide History of Dhillon cirrhosisCT abdomen pelvis demonstrating cirrhosis. Normal LFTs and no signs of liver failure -Continue to monitor as above Thrombocytopenia - Plts dec 139 to 110; monitor DM type II -Continue basal and sliding scale -glucose goal 140 to 180 mg -pharm glycemic consult in place HLD -allergic to statin -follow up with primary care regarding treatment DVT PROPHYLAXIS - SCDs, Lovenox, ASA 81mg FEN/GI-heart healthy diet CODE: Full Code Disposition: PCU (2) Hypertension: (3) Depression: (4) Diabetes mellitus type 2, uncontrolled, without complications: (5) Dyslipidemia: Admission and Anticipated Discharge Date Admission Date: March 01, 2022 Supervising Physician Co-Signing Physician Notes I personally examined the patient and verified all fish points of history and exam, discussed case, and agree with decision making with Dr Gilman headache a little worse, bright lights bother her. no confusion vitals noted nad aaox3 heent nc at mmm breathing unlabored no accessory muscles good effort skin no rashes no pallor or icterus neuro no focal deficits cryptococcal meningitis - continue ampho B and now flucytosine (instead of fluconazole), serial exams (headache worse but no need for repeat LP at this time - after discussions will have neuro see to assist in monitoring this as well), await ID input, continue supportive care. HIV negative, but risks appear to be cirrhosis + uncontrolled DM cirrhosis - INR and bili reassuring uncontrolled DM - insulin management inpatient. started to educate on comprehensive DM management outpt. sugars better controlled today DVT proph - lovenox otherwise as above Subjective Spoke to patient at the bedside. She is feeling some of the same symptoms today that she felt before coming in although not as intense. She says that her headache has returned in the same distribution, has some photophobia and neck stiffness has increased somewhat. Denies fevers, chills, shortness of breath, chest pain. Review of Systems Constitutional: as per Subjective / HPI Physical Exam Constitutional: WD/WN, vitals as above Eyes: PERRL, conjunctivae normal, anicteric sclerae Respiratory: normal respiratory effort, lungs clear to auscultation Cardiovascular: RRR, no murmur, no edema Gastrointestinal (Abdomen): normal bowel sounds, soft, nontender, no hepatosplenomegaly Neurologic: Patellar reflexes 1+ Psychiatric: A+Ox3, euthymic affect Results & Data Results & Data ([facility]) Vital Signs (Past 12 Hours) Vital Signs Temp Pulse Pulse Resp BP BP Pulse Ox 03/03/22 04:12 36.6 C 93 H 20 135/78 94 03/03/22 01:00 100 H 03/02/22 23:35 36.7 C 80 20 112/67 92 03/02/22 19:22 36.4 C L 86 20 134/79 96 Resident Activity Tracking Resident Involvement: Resident Care Provided Care Provided: Adult Hospital Medicine (1) Depression Depression Type: unspecified Qualified Code(s): F32.9 - Major depressive disorder, single episode, unspecified (2) Hypertension Hypertension type: essential hypertension Qualified Code(s): I10 - Essential (primary) hypertension
[2022-03-03 07:34] LABS: Basophils # (auto) 0.01 K/uL (0-0.2); Basophils % (auto) 0.1 %; Eosinophils # (auto) 0.03 K/uL (0-0.5); Eosinophils % (auto) 0.4 %; Hematocrit (blood only) 28.4 % (37-47); Hemoglobin 9.4 g/dL (12.0-16.0); Immature Granulocytes # (auto) 0.03 K/uL (0.00-0.02); Immature Granulocytes % (auto) 0.4 %; Lymphocytes # (auto) 1.44 K/uL (1.2-3.4); Lymphocytes % (auto) 17.1 %; Mean Corpuscular Hemoglobin 27.9 pg (25-34); Mean Corpuscular Hgb Conc 33.1 g/dL (32-36); Mean Corpuscular Volume 84.3 fL (80-100); Mean Platelet Volume 10.6 fL (7.4-10.4); Monocytes # (auto) 0.69 K/uL (0.11-0.59); Monocytes % (auto) 8.2 %; Neutrophils % (auto) 73.8 %; Platelet Count 140 K/uL (130-400); RDW Coefficient of Variation 15.2 % (11.5-14.5); RDW Standard Deviation 47.2 fL (36.4-46.3); Red Blood Count 3.37 M/uL (4.2-5.4)
[2022-03-03 07:59] LABS: Albumin Level 3.2 gm/dl (3.4-5.0); BUN Creatinine Ratio 26.8 (10-20); Bilirubin Direct 0.1 mg/dl (0-0.2); Bilirubin,Total 0.5 mg/dl (0.2-1.0); Calcium 8.4 mg/dl (8.5-10.1); Creatinine Clr Calc Pharmacy 55.1 ml/min; Est GFR (Non-African American) 52.6 ml/min; Magnesium 2.2 mg/dl (1.7-2.4); Phosphorus 3.9 mg/dl (2.5-4.9); Potassium 3.4 mmol/L (3.5-5.1); Total Protein 6.2 gm/dl (6.0-8.3)
[2022-03-03] MEDS ORDERED: POTASSIUM CHLORIDE CRTAB 20 MEQ TABCR PO STA (08:00)
[2022-03-03] MEDS: ENOXAPARIN INJ 40 MG/0.4 ML SYR SQ SCH (08:47)
[2022-03-03] MEDS ORDERED: INSULIN GLARGINE SOLOSTAR 100 UNITS/ML 3 ML PEN SC SCH (09:00)
[2022-03-03] MEDS: ACETAMINOPHEN 325 MG TAB PO PRN ×2 (10:52→17:19)
[2022-03-03] MEDS ORDERED: [UNRECOGNIZED DRUG - REMARK] PRN (11:27)
[2022-03-03] MEDS: FLUCYTOSINE 500 MG CAP PO SCH ×2 (13:18→18:49)
--- NOTE | 2022-03-03 13:31 | Pharmacy Report ---
Pharmacy Glycemic Short Note 2 - Date of Service March 03, 2022 - Glycemic Short BSG Results (Last 24 hours): 03/02/22 03/02/22 03/02/22 16:20 16:37 21:41 Glucose 236 H POC Glucose 273 H 98 03/02/22 03/03/22 03/03/22 22:28 00:56 04:34 Glucose 97 POC Glucose 85 75 03/03/22 03/03/22 03/03/22 06:49 07:12 11:28 Glucose 76 POC Glucose 78 93 OUTPATIENT ANTIDIABETIC REGIMEN: * Toujeo 68 units QPM * Novolog CF 30, CR 2 * A1c 9.4% 12/18/21 ASSESSMENT: 03/03 * BSGs trended down overnight/with tightening of carb ratio * Fasting this am 78 mg/dL- will loosen ~20% * Carb ratio tightened to 2.5, will slightly loosen to 3- monitor for need to loosen further 03/02 * Patient admitted with cryptococcal meningitis, currently being treated with fluconazole + amphotericin B * Patient received a dose of dexamethasone 10 mg x1 last night, BSGs elevated this morning suspect secondary to steroid and lantus does held last evening * Patient received 35 units of lantus this morning, gave additional dose with lunch as BSG still elevated, will hold off on further dosing as suspect the dexamethasone will start to wear off overnight. * Will continue to tighten novolog parameters as needed PLAN FOR INPATIENT GLYCEMIC CONTROL: * Hold outpatient oral diabetes medications * Basal insulin * Lantus 25 units BID * Bolus insulin * NovoLog per scale ACHS or Q6hrs while NPO * Goal Range: Low 110 mg/dL - High 140 mg/dL * Correction Factor: 25 mg/dL/unit * Nutritional / Prandial insulin per carb ratio of 1 unit per 3 grams CHO consumed
--- NOTE | 2022-03-03 17:35 | Billing Data ---
Date of Service March 03, 2022 Coding Level of Care Code 69228 Subseq Hosp Care Lvl 3
[2022-03-03] MEDS: AMBISOME IV SCH (21:44)
[2022-03-03] MEDS: DEXTROSE 5% IV SCH (21:44)
[2022-03-03] MEDS: LISINOPRIL/HCTZ 10/12.5MG TAB PO SCH (21:45)
[2022-03-03] MEDS: VENLAFAXINE HCL XR 150 MG CAPXR PO SCH (21:45)
[2022-03-03] MEDS: ASPIRIN 81 MG ECTAB PO SCH (21:45)
[2022-03-03] MEDS: MIRTAZAPINE TAB 15 MG TAB PO SCH (21:45)
--- NOTE | 2022-03-03 22:07 | Electrocardiogram Report ---
Test Reason : Blood Pressure : / mmHG Vent. Rate : 080 BPM Atrial Rate : 080 BPM P-R Int : 150 ms QRS Dur : 106 ms QT Int : 398 ms P-R-T Axes : 067 -35 047 degrees QTc Int : 459 ms Poor data quality, interpretation may be adversely affected Normal sinus rhythm Left axis deviation Abnormal ECG When compared with ECG of 28-FEB-2022 09:34, No significant change was found Confirmed by Bertram June ([id number] on 03/03/2022 10:06:51 PM Referred By: REFERRED SELF Confirmed By:Bertram June
[2022-03-04] MEDS: FLUCYTOSINE 500 MG CAP PO SCH ×4 (00:40→18:31)
[2022-03-04 06:21] LABS: Basophils # (auto) 0.02 K/uL (0-0.2); Basophils % (auto) 0.2 %; Eosinophils % (auto) 1.2 %; Hematocrit (blood only) 27.6 % (37-47); Hemoglobin 9.2 g/dL (12.0-16.0); Immature Granulocytes # (auto) 0.02 K/uL (0.00-0.02); Immature Granulocytes % (auto) 0.2 %; Lymphocytes # (auto) 1.47 K/uL (1.2-3.4); Lymphocytes % (auto) 18.3 %; Mean Corpuscular Hemoglobin 28.6 pg (25-34); Mean Corpuscular Hgb Conc 33.3 g/dL (32-36); Mean Corpuscular Volume 85.7 fL (80-100); Mean Platelet Volume 11.1 fL (7.4-10.4); Monocytes # (auto) 0.81 K/uL (0.11-0.59); Monocytes % (auto) 10.1 %; Neutrophils # (auto) 5.63 K/uL (1.4-6.5); Platelet Count 131 K/uL (130-400); RDW Coefficient of Variation 15.4 % (11.5-14.5); RDW Standard Deviation 48.3 fL (36.4-46.3); Red Blood Count 3.22 M/uL (4.2-5.4); White Blood Count 8.05 K/uL (4.8-10.8)
[2022-03-04 06:35] LABS: BUN Creatinine Ratio 23.3 (10-20); Creatinine Clr Calc Pharmacy 52.6 ml/min; Est GFR (African American) 58.4 ml/min; Est GFR (Non-African American) 50.4 ml/min; Phosphorus 3.9 mg/dl (2.5-4.9); Potassium 3.1 mmol/L (3.5-5.1)
[2022-03-04 06:36] LABS: Albumin Level 3.1 gm/dl (3.4-5.0); Bilirubin Direct 0.2 mg/dl (0-0.2); Bilirubin,Total 0.7 mg/dl (0.2-1.0); Magnesium 1.8 mg/dl (1.7-2.4)
[2022-03-04] MEDS ORDERED: POTASSIUM CHLORIDE CRTAB 20 MEQ TABCR PO ONE (08:00)
--- NOTE | 2022-03-04 08:04 | Medical Student Progress Note ---
Date of Service March 04, 2022 Assessment & Plan (1) Cryptococcal meningitis: Plan: 61 yo F w pmh of HTN, DM2, HLD presents in PCU for crypto men treatment. pt is taking flucytosine and amp B. 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 Elevated WBC and total protein in CSF -CT and MRI imaging negative for acute intracranial findings. -Received 10 mg dexamethasone in the ED, will hold on further glucocorticoid use for now -CT chest and abdomen without clear source of other infection -HIV and hepatitis panels negative, diabetes and cirrhosis as potential source -ID consulted, following recs -monitor for worsening FLOWERS and AMS -repeat LP 03/05 with opening pressure; hold lovenox tonight -On Amphotericin B 300mg IV Q24; flucytosine 1500mg PO Q6h; discontinued fluconazole -daily bmp and mg2+, CBC & hepatic panel hypokalemia - K+ 3.1; tx'd with 40mg KCl tablet x2 Anxiety and depression -continue home venlafaxine and mirtazapine Hypertension -continue lisinoprilhydrochlorothiazide History of Dhillon cirrhosisCT abdomen pelvis demonstrating cirrhosis. Normal LFTs and no signs of liver failure -Continue to monitor as above Thrombocytopenia - Plts dec 140 to 131; monitor; resolved. DM type II -Continue basal and sliding scale -glucose goal 140 to 180 mg -last A1c 9.4% -pharm glycemic consult in place: 68u glargine at night; carb ratio 2.5g/u aspart -DM education HLD -allergic to statin -follow up with primary care regarding treatment DVT PROPHYLAXIS - SCDs, holding Lovenox, ASA 81mg FEN/GI-heart healthy diet CODE: Full Code Disposition: PCU (2) Migraine headache: Intractability: not intractable Migraine type: unspecified Status migrainosus presence: without status migrainosus Qualified Code(s): G43.909 - Migraine, unspecified, not intractable, without status migrainosus (3) Cirrhosis of liver: (4) Diabetes mellitus type 2, uncontrolled, without complications: (5) Dyslipidemia: (6) Irritable bowel syndrome: (7) Other chronic nonalcoholic liver disease: (8) Dizziness: (9) Nausea: Admission and Anticipated Discharge Date Admission Date: March 01, 2022 Supervising Attestation I personally examined the patient and verified all fish points of history and exam, discussed case, and agree with decision making with A Mindi MS2 headache better today, still a lot of photophobia, no confusion. vitals noted nad aaox3 heent nc at mmm breathing unlabored no accessory muscles good effort skin no rashes no pallor or icterus neuro no focal deficits cryptococcal meningitis - continue ampho B and flucytosine (asking pharmacy to revisit dosing for both to ensure it is appropriate for the dx), serial exams, repeat LP therapeutically (since no change in mentation, radiology asked to hold lovenox and do tomorrow, which is reasonable). HIV negative, but risks appear to be cirrhosis + uncontrolled DM cirrhosis - INR and bili reassuring uncontrolled DM - insulin management inpatient. ongoing education. discussed "why to care" previously, today discussed pathophys of insulin resistance and the critical role of lifestyle in management/correction thereof. pt expressed good understanding DVT proph - lovenox (hold for now for LP) otherwise as above Subjective Last night, given potassium tablet but vomited shortly after taking. Today FLOWERS 2/10; decreased photophobia; decreased dizziness; same lethargy; no neck stiffness; no N/V; no blurry vision; no Palpitations Review of Systems Constitutional: as per Subjective / HPI Physical Exam Physical Exam: GA: no acute distress neuro: AOx3 0-1+ reflexes finger nose coordination intact 5/5 strength sensation intact gait deferred (fall risk) lungs: bibasilar crackles; course crackles b/l mid/upper lobes; atelectasis heart: normal Results & Data ([facility]) Vital Signs (Past 12 Hours) Vital Signs Temp Pulse Resp BP Pulse Ox 03/04/22 07:00 37.4 C 87 18 127/68 91 03/04/22 04:25 37.5 C 90 19 99/56 L 91 03/03/22 23:15 37.4 C 91 H 18 115/67 90
--- NOTE | 2022-03-04 09:00 | Neurology Consultation ---
Date of Consultation March 04, 2022 Assessment & Plan (1) Cryptococcal meningitis: (2) Headache: (3) Chronic cerebral ischemia: this patient has a 2 week history of headaches and neck pain with a positive diagnosis of cryptococcus in the [employer]. With her symptoms I would diagnose to cryptococcal meningitis but there are no signs of a cryptococcal encephalitis, given her normal mental status examination. She has no vision changes or fever, But did have a rash. On neurologic examination she has no focal neurologic findings or cranial nerve deficits. I cannot detect papilledema but with her cataracts she would need an ophthalmological examination to be certain. She does not have encephalopathy or altered mental status but does have some mild meningeal signs. Lumbar puncture had elevated white cells and protein but unfortunately an opening pressure was not obtained. In addition no cryptococcal serum antigen titer was obtained either. Patient has improving headaches since we initiated treatment with amphotericin B and flucytosine. The patient has chronic cerebral ischemia likely secondary to long-standing diabetes and hypertension. She is on a baby aspirin daily to help prevent further ischemia. The etiology of her cryptococcus infection is not apparent. Typically, it would be breathed in, as the yeast lives in the soil, and then hematogenously spread to the [employer]. It is associated with birds (such as chickens or pigeons) but the patient does not have an obvious exposure . In a recent study, of non-HIV patients with cryptococcal meningitis 30% had no obvious cause / source. She is somewhat immunocompromised with the hepatic cirrhosis and inadequately contro lled diabetes. She has not been on steroids. Recommendations: 1. continue 2 weeks of amphotericin B ( 0.7-1.0 mg/kg/day, IV - typical non-HIV dose) 2. continue 2 weeks of flucytosine ( 100 milligrams/kilogram per day IV) 3. Following the induction therapy of amphotericin B and flucytosine, after the 2 weeks, the patient would be treated with fluconazole 400-800 mg per day for 8 weeks 4. as these patients have a high risk of increased intracranial pressure even after treatment, and since CSF pressure should be monitored for treatment of fact, she should have another LP today. The frequency of LPs will be determined based on her opening pressure and clinical course thereafter. 5. serum cryptococcal antigen titers can be followed to measure a response to the medication although is been 1-2 days since medication has been initiated and this could have affected her serum titer already. 6. There is no indication for steroids, acetazolamide, or mannitol for addressing/ treating increased intracranial pressure. Overall, I spent a total of 150 minutes with this case including review of records, review of MRI films, reviewing cryptococcal meningitis epidemiology, presentation, and treatment, direct evaluation the patient at bedside, and discussion of the case with the patient and RN at bedside, and Dr. Conn, including differential diagnosis and treatment options. 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 Requesting Physician: Dr. Conn Attending Physician: Dominic Conn DO History of Present Illness this patient has a 15 year history of hypertension and type 2 diabetes. Most recent hemoglobin A1c, in November of this year, was 9.4. She also carries a diagnosis of hepatic cirrhosis ([place]). She has a diagnosis of depression and is on venlafaxine and mirtazapine. She is on 81 mg aspirin tablet daily. Patient has a history of migraine headaches about 20 years ago for about 2 years (around the time of her divorce). She was not a person who had significant headaches prior to this nor was she getting them afterwards until recently. In December of 2020, she had a Covid-19 infection. although she went to the emergency room for breathing difficulty she was not admitted. She was given monoclonal antibody treatment and discharge. Following this infection she had shortness of breath with activity although this gradually improved over time. Her smell is still not back to normal. About 2 weeks ago she had the onset of headaches. There were bifrontal and constant of a pressure sensation. They would wax and wane. There could be photophobia and eventually there was nausea and vomiting. She had a stiff sore neck but did not have any fevers or vision issues. Her memory was not affected. She may have had some waxing and waning fatigue, and her "good and bad days" with her symptoms. She Became more short of breath with activity. the patient had a rash of a red pinpoint nature on her arms and legs starting last week for 3-4 days. It is fading currently. She went to the emergency room February [address] scan of the head as well as CT angiography of the head and neck were unremarkable. She was treated and discharged. Unfortunately, she came back to the emergency room March 01 with persistent headaches. she arrived March 01 at 5:46 p.m. with a temperature of 36.7, pulse of respiratory rate 20, blood pressure 160, and O2 saturation 97%. Examination the emergency room showed no focal findings. An LP was obtained and was clear and colorless. No opening pressure was recorded. There were 320 white cells ( 59% mononuclear and 41% polys), protein of 108, glucose of 60 and a positive cryptococcal PCR test on the [employer]. No serum cryptococcal antigen titer was obtained. CSF Gram stain showed a few yeast. Final culture is pending. She was given Decadron, acyclovir, Rocephin, and vancomycin until the cryptococcal PCR came back positive. She was then given a dose of fluconazole and amphotericin B. after the next day she has been on amphotericin B and flucytosine per protocol. All other antibiotics and antiviral medications were stopped. She was not given steroids. CT scan of the chest was unremarkable. CT scans of the abdomen and pelvis showed the cirrhosis but no other issues. MRI of the brain showed no enhancing lesions or acute findings. There were some [id number] tiny old white matter spots diffusely. I reviewed these films. Laboratory studies this morning show anemia with normal white count. Chem profile was unremarkable as was a liver profile although the potassium and calcium were low. She has a negative HIV titer, Lyme antibody titer, and hepatitis-C titers. The patient's headache is better today it is a milder bifrontal temporal headache of a pressure sensation with no nausea or vomiting. She has no vision symptoms or mental status changes. She does have some neck stiffness. 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 Allergies Allergy/AdvReac Type Severity Reaction Status Date / Time Penicillins Allergy Intermediate Hives Verified 03/01/22 21:26 atorvastatin Allergy Unknown CAN'T Verified 03/01/22 21:26 REMEMBER gemfibrozil [From Lopid] Allergy Unknown CAN'T Verified 03/01/22 21:26 REMEMBER acetaminophen [From Tylenol] AdvReac Severe CAN NOT Verified 03/01/22 21:26 TAKE D/T LIVER ISSUES rosuvastatin AdvReac Intermediate Muscle Pain Verified 03/01/22 21:26 Home Medications Medication Instructions Recorded Confirmed Type aspirin 81 mg tablet,delayed 81 mg PO HS 06/05/19 03/01/22 History release multivitamin 1 tab PO QAM 09/07/19 03/01/22 History Contour Next Test Strips (blood #300 ea NS 12/29/20 12/22/21 Rx sugar diagnostic) blood-glucose sensor (Dexcom G6 #3 ea 01/22/21 12/22/21 History Sensor) blood-glucose transmitter (Dexcom #1 ea 01/22/21 12/22/21 History G6 Transmitter) mirtazapine 30 mg tablet 30 mg PO HS #90 tab 05/06/21 03/01/22 Rx ibuprofen 200 mg tablet (Advil) 200 mg PO Q6H PRN 06/15/21 03/01/22 History venlafaxine 150 mg 300 mg PO HS #180 cap 07/01/21 03/01/22 Rx capsule,extended release 24 hr (Effexor XR) Omnipod Dash Pods (Gen 4) (insulin #45 ea NS 09/15/21 Rx pump cartridge) acetone (urine) test (Ketostix) #50 ea 10/14/21 12/22/21 Rx pen needle, diabetic 32 gauge x #120 ea 11/06/21 12/22/21 Rx 5/32" (BD Ultra-Fine Jody Pen Needle) lisinopril 10 1 tab PO HS #30 tab 12/28/21 03/01/22 Rx mg-hydrochlorothiazide 12.5 mg tablet etodolac 200 mg capsule 200 mg PO Q12H PRN #14 cap 02/28/22 03/01/22 Rx ondansetron 4 mg disintegrating 4 mg PO Q8H PRN #30 tab 02/28/22 03/01/22 Rx tablet insulin aspart U-100 100 unit/mL 0 unit SUBCUT TIDM 03/01/22 03/01/22 History (3 mL) subcutaneous pen insulin glargine U-300 conc 300 68 unit SUBCUT QPM 03/01/22 03/01/22 History unit/mL (1.5 mL) subcutaneous pen (Toujeo SoloStar U-300 Insulin) Patient History Medical History Anxiety Cirrhosis of liver FOLLOWS W/ [facility] Stable currently Depression Diabetes mellitus, type 2 IDDM Glucose fluctuates - since Covid in December 2020 On insulin pump Follows with endocrinology Dupuytren's contracture of hand Bilateral hands Dyslipidemia History of COVID-12 January 2021 > [facility], not hospitalized, fever, ear pain- did give infusion in ER No current issues Hypertension IBS (irritable bowel syndrome) Stable Insomnia Kidney stones FOLLOWS WITH DR FUCHS No current issues - monitoring currently Surgical History History of cystoscopy WITH STENTS AND STONE BASKETING History of lithotripsy History of tonsillectomy and adenoidectomy History of total hip arthroplasty LEFT Hx laparoscopic cholecystectomy Hx of colonoscopy Hx of surgical amputation of finger left pinky Hx of total hysterectomy GERALD WITH BSO Hx of tubal ligation Hx of wisdom tooth extraction Family History Father , age 75 Family history of diabetes mellitus Coronary heart disease Brother Family history of diabetes mellitus Mother , age 67 Family history of diabetes mellitus Heart disease Hypertension Grandfather (Paternal) Family history of diabetes mellitus Grandmother (Paternal) Family history of diabetes mellitus Denies family history of Ovarian cancer Breast cancer Colorectal cancer Social History Smoking Status: Former smoker Cigarettes Per Day: 06/2018; Number of Years Since Quit: 4; Second Hand Exposure: Yes; Hx Alcohol Use: No Hx Substance Use: No Preferred Language: Guatemalan Communication Ability: Effective Visual Impairment: No Limitations Application Engineer Required: No Beliefs That Will Affect Care: None marital status: Single Current Living Situation: Alone current occupational status: employed and disabled current occupation: [employer] does have disability for diabetes- insurance helps Feels Safe at Home: Yes Childhood Exposure to Second-Hand Smoke: No caffeine: Yes Dental Care, Regularly: No Physical Activity Frequency: Does not Exercise Seatbelt Use: always Sunscreen Use: Yes Assistive Devices: None Review of Systems Constitutional: no fever, no fatigue and no weakness Eyes: no diplopia, no eye pain and no worsening vision Ear, Nose, Mouth, Throat: no ear pain, no tinnitus, no hearing loss, no dizziness, no snoring, no hoarseness and no dysphagia Respiratory: no cough and no dyspnea Cardiovascular: no chest pain, no palpitations and no lightheadedness Gastrointestinal: no abdominal pain, no nausea and no vomiting Genitourinary: no dysuria, no urinary frequency and no urinary incontinence Musculoskeletal: + neck pain; no back pain, no radicular pain, no joint pain and no myalgia Integumentary: no rash and no lesions Neurologic: + headache(s); no gait abnormality, no localized weakness, no generalized weakness, no tingling, no numbness, no tremor(s), no abnormal movements, no abnormal speech, no confusion and no memory loss Psychiatric: no depression, no irritability, no anxiety, no difficulty concentrating, no confusion and no hallucinations Endocrine: no fatigue and no flushing Hematologic / Lymphatic: no easy bleeding and no easy bruising Allergy / Immunological: no urticaria and no problem reported Exam (Neuro) Physical Exam: The patient is right-handed. The patient is awake, alert, and attentive. Speech is normal without any aphasia or dysarthria. The patient can name objects, repeat phrases, and has normal spontaneous speech. Mentation and thought processes are intact, with orientation to person, place and time, and normal fund of knowledge. Attention and concentration are normal. Mood and affect are normal and appropriate. General appearance and grooming are normal. Short and long-term memory are intact. The discs appear sharp with bilaterally. it was a little difficult to visualize the discs because of some cataract formation bilaterally. I could not appreciate venous pulsations bilaterally. There are no exudates, hemorrhages, or blood vessel changes seen. Pupils are 4 mm bilaterally and reactive to light. Extraocular eye muscles are intact without nystagmus. Visual acuity and visual [place] seem normal grossly to confrontation. There are no deficits to sensation in the face in all 3 distributions of the fifth cranial nerve bilaterally. Corneal reflexes are positive bilaterally. Facial strength and symmetry was normal bilaterally. Hearing seems normal bilaterally. Palate moves well without asymmetry. There is normal sternocleidomastoid and trapezius (shoulder shrug) strength bilaterally. Tongue is midline with good strength bilaterally. Neck has a full range of motion , but does have some discomfort. There are no cervical bruits bilaterally. There are no cranial or ocular bruits. Heart is without murmur. There is a regular rhythm and rate. Cervical, thoracic, and lumbar spine are nontender to palpation. Gait was not tested, but stance sitting up in bed is normal. With outstretched arms there is no drift. There are no resting, postural, or action tremors. There is no ataxia with finger to nose testing. There is good facility in the hands. No other abnormal involuntary movements are noted. Motor strength is 5/5 diffusely in the arms bilaterally including deltoids, biceps, triceps, brachioradialis, wrist flexors and extensors, operating room manager, and intrinsic hand muscles. Motor strength is 5/5 diffusely in the legs bilaterally including hip flexors, quadriceps, hamstrings, gastrocnemius, tibialis anterior, tibialis posterior, and Peroneii muscles. Toe extensors are normal and there is good bulk in the extensor digitorum brevis muscles bilaterally. The limbs have good tone without rigidity or spasticity. There is no atrophy noted in the muscles. Muscle bulk is normal, there is no tenderness to palpation, no myotonia to percussion, and no fasciculations seen. Sensory examination is intact to touch and pin throughout all 4 limbs diffusely. Reflexes are 2/4 in the biceps, triceps, brachioradialis, quadriceps, and Achilles tendons bilaterally. There is no clonus bilaterally. Toes are downgoing with plantar stimulation bilaterally. Peripheral pulses are present and of normal quality distally in all 4 limbs. There is no peripheral edema noted in the limbs. Results & Data ([facility]) Vital Signs (Past 12 Hours) Vital Signs Temp Pulse Resp BP Pulse Ox 03/04/22 07:00 37.4 C 87 18 127/68 91 03/04/22 04:25 37.5 C 90 19 99/56 L 91 03/03/22 23:15 37.4 C 91 H 18 115/67 90 PG Care Time/CCT Total # of Minutes Spent Total Time Spent with Patient: Total time spent is greater than 50% in coordination of care (as documented) at patient's floor/unit and/or counseling patient: Coding Level of Care Code 12766 Inpt Consult Level 5 Diagnoses Cryptococcal meningitis B45.1 Headache R51.9 Chronic cerebral ischemia I67.82 Time Spent (min) 150 Comment add Modifiers as able
[2022-03-04] MEDS: INSULIN GLARGINE SOLOSTAR 100 UNITS/ML 3 ML PEN SC SCH (09:02)
[2022-03-04] MEDS: ENOXAPARIN INJ 40 MG/0.4 ML SYR SQ SCH (09:02)
[2022-03-04] MEDS: INSULIN ASPART PER UNIT SC SCH ×4 (09:03→20:53)
--- NOTE | 2022-03-04 14:18 | Pharmacy Report ---
Pharmacy Glycemic Short Note 2 - Date of Service March 04, 2022 - Glycemic Short BSG Results (Last 24 hours): 03/03/22 03/03/22 03/04/22 16:31 20:43 05:58 Glucose 93 POC Glucose 93 77 03/04/22 03/04/22 07:10 11:21 Glucose POC Glucose 104 H 124 H OUTPATIENT ANTIDIABETIC REGIMEN: * Toujeo 68 units QPM * Novolog CF 30, CR 2 * A1c 9.4% 12/18/21 ASSESSMENT: 03/04 * Blood sugars in normal range yesterday, although below goal 75-93 mg/dL, lantus reduced to 25 units * Fasting this morning 104 mg/dL- will continue reduced dose, monitor for increase tomorrow * Novolog carb ratio loosened back to 5 03/03 * BSGs trended down overnight/with tightening of carb ratio * Fasting this am 78 mg/dL- will loosen ~20% * Carb ratio tightened to 2.5, will slightly loosen to 3- monitor for need to loosen further 03/02 * Patient admitted with cryptococcal meningitis, currently being treated with fluconazole + amphotericin B * Patient received a dose of dexamethasone 10 mg x1 last night, BSGs elevated this morning suspect secondary to steroid and lantus does held last evening * Patient received 35 units of lantus this morning, gave additional dose with lunch as BSG still elevated, will hold off on further dosing as suspect the dexamethasone will start to wear off overnight. * Will continue to tighten novolog parameters as needed PLAN FOR INPATIENT GLYCEMIC CONTROL: * Hold outpatient oral diabetes medications * Basal insulin * Lantus 20 units qAM * Bolus insulin * NovoLog per scale ACHS or Q6hrs while NPO * Goal Range: Low 110 mg/dL - High 140 mg/dL * Correction Factor: 25 mg/dL/unit * Nutritional / Prandial insulin per carb ratio of 1 unit per 5 grams CHO consumed
[2022-03-04] MEDS: ACETAMINOPHEN 325 MG TAB PO PRN ×2 (15:22→23:06)
--- NOTE | 2022-03-04 18:03 | Billing Data ---
Date of Service March 04, 2022 Coding Level of Care Code 80215 Subseq Hosp Care Lvl 3
[2022-03-04] MEDS: AMBISOME IV SCH (20:51)
[2022-03-04] MEDS: DEXTROSE 5% IV SCH (20:51)
[2022-03-04] MEDS: ASPIRIN 81 MG ECTAB PO SCH (20:52)
[2022-03-04] MEDS: MIRTAZAPINE TAB 15 MG TAB PO SCH (20:52)
[2022-03-04] MEDS: VENLAFAXINE HCL XR 150 MG CAPXR PO SCH (20:52)
[2022-03-04] MEDS: LISINOPRIL/HCTZ 10/12.5MG TAB PO SCH (20:52)
[2022-03-05] MEDS: FLUCYTOSINE 500 MG CAP PO SCH ×4 (00:16→18:22)
[2022-03-05 07:17] LABS: Hematocrit (blood only) 26.6 % (37-47); Hemoglobin 8.9 g/dL (12.0-16.0); Mean Corpuscular Hemoglobin 28.5 pg (25-34); Mean Corpuscular Hgb Conc 33.5 g/dL (32-36); Mean Corpuscular Volume 85.3 fL (80-100); Mean Platelet Volume 11.1 fL (7.4-10.4); Platelet Count 134 K/uL (130-400); RDW Coefficient of Variation 15.6 % (11.5-14.5); RDW Standard Deviation 48.4 fL (36.4-46.3); Red Blood Count 3.12 M/uL (4.2-5.4); White Blood Count 7.74 K/uL (4.8-10.8)
[2022-03-05 07:42] LABS: Albumin Level 3.1 gm/dl (3.4-5.0); BUN Creatinine Ratio 20.2 (10-20); Bilirubin,Total 0.6 mg/dl (0.2-1.0); Creatinine Clr Calc Pharmacy 53.1 ml/min; Est GFR (African American) 59.7 ml/min; Est GFR (Non-African American) 51.5 ml/min; Magnesium 1.9 mg/dl (1.7-2.4); Potassium 3.1 mmol/L (3.5-5.1); Total Protein 6.1 gm/dl (6.0-8.3)
[2022-03-05 07:51] LABS: Basophils # (auto) 0.02 K/uL (0-0.2); Basophils % (auto) 0.3 %; Eosinophils # (auto) 0.17 K/uL (0-0.5); Eosinophils % (auto) 2.2 %; Immature Granulocytes # (auto) 0.02 K/uL (0.00-0.02); Immature Granulocytes % (auto) 0.3 %; Lymphocytes # (auto) 1.64 K/uL (1.2-3.4); Lymphocytes % (auto) 21.2 %; Monocytes # (auto) 0.71 K/uL (0.11-0.59); Monocytes % (auto) 9.2 %; Neutrophils # (auto) 5.18 K/uL (1.4-6.5); Neutrophils % (auto) 66.8 %
[2022-03-05] MEDS: INSULIN GLARGINE SOLOSTAR 100 UNITS/ML 3 ML PEN SC SCH (08:31)
[2022-03-05] MEDS: INSULIN ASPART PER UNIT SC SCH ×4 (08:34→21:27)
[2022-03-05] MEDS: ACETAMINOPHEN 325 MG TAB PO PRN ×3 (08:36→21:26)
--- NOTE | 2022-03-05 08:40 | Neurology Progress Note ---
Date of Service March 05, 2022 Assessment & Plan (1) Cryptococcal meningitis: (2) Headache: (3) Chronic cerebral ischemia: Plan: This patient, prior to admission, had a 2 week history of headaches, neck pain, rash and a positive diagnosis of cryptococcus in the LANGUAGE THER[employer]IST after LP. With her symptoms I would diagnose to cryptococcal meningitis but there are no signs of a cryptococcal encephalitis, given her normal mental status examination, no focal neurologic findings, or seizures. She has no vision changes or fever. Clinically, she is improving her symptoms since admission. Lumbar puncture 03-02, showed 320 white cells and 108 protein, but unfortunately an opening pressure was not obtained. In addition, no serum cryptococcal antigen titer was obtained either. The patient has chronic cerebral ischemia likely secondary to long-standing diabetes and hypertension. She is on a baby aspirin daily to help prevent further ischemia. The etiology of her cryptococcus infection is not apparent. Typically, it would be breathed in, as the yeast lives in the soil, and then hematogenously spread to the LANGUAGE THERAPIST. It is associated with birds (such as chickens or pigeons) but the patient does not have an obvious exposure. In a recent study, of non-HIV patients with cryptococcal meningitis 30% had no obvious cause / source. She is somewhat immunocompromised with the hepatic cirrhosis and inadequately controlled diabetes. She has not been on steroids. Cryptococcus neoformans is more common, is typically seen in immunocompromised patients/HIV, and tends to be spread via soil and bird droppings. Studies have shown that in non HIV patients, 30% of patients with cryptococcus meningoencephalitis have no identifiable source of the infection. Cryptococcus gattii is less common, is not spread by bird droppings, found in eucalyptus trees, and is seen mostly in immunocompetent patients. However, It is mostly found in tropical/subtropical areas (although it has been identified in the [place]). It has not been seen, to my knowledge in the [facility]. Fortunately, the treatment for each of these subtypes of cryptococcus is identical. We are awaiting final cultures for the identification of the organism. Recommendations: 1. continue 2 weeks of amphotericin B (0.7-1.0 mg/kg/day, IV is the typical dose). Infectious Disease consultation 03-03-22 has recommended 300 mg IV daily. 2. continue 2 weeks of flucytosine (100 milligrams/kilogram per day is the typical dose) - we would have to increase her dose to 2000 mg Q 6 hours (8000mg/day total). 3. Following the induction therapy of amphotericin B and flucytosine, after the 2 weeks, would need an LP to look for CSF sterilization. The patient would then be treated with fluconazole 800 mg per day for 8 weeks 4. As these patients have a high risk of increased intracranial pressure even after treatment, and since CSF pressure should be monitored for treatment effect, she should have another LP. This will be done later today. The frequency of LPs will be determined based on her opening pressure and clinical course thereafter. 5. serum cryptococcal antigen titers can be followed to measure a response to the medication although is been 1-2 days since medication has been initiated and this could have affected her serum titer already. 6. There is no indication for steroids, acetazolamide, or mannitol for addressing/ treating increased intracranial pressure. 7. monitor for amphotericin B toxicity ( electrolyte imbalance and nephrotoxicity) 8. Monitor for flucytosine toxicity ( hepatic, cardiac, renal, and LANGUAGE THERAPIST-headache, confusion, weakness, etc) 9. I will follow. Overall, I spent a total of 75 minutes with this case including review of records, reviewing cryptococcal meningitis epidemiology, presentation, and treatment, direct evaluation the patient at bedside, and discussion of the case with the patient and RN at bedside, and Dr. Conn, including differential diagnosis and treatment options. Admission and Anticipated Discharge Date Admission Date: March 01, 2022 Subjective Patient continues to have some mild bifrontal head pressure, very mild photophobia, and some mild neck discomfort with movement. It is somewhat better than yesterday. Her appetite is getting a little better as well. She is not confused and nursing reports no new events. She denies any vision issues. She has been up out of bed to chair and walking to the bathroom without any difficulty. The patient herself reports not having or raising any chickens or pigeons, nor do her immediate neighbors. She has been outside in the [place] quite a bit this spring She has not imported or obtained any eucalyptus trees Pressure is 115/72 and she is afebrile. Laboratory studies reveal a worsening anemia, hypokalemia, glucose of 96 and an albumin of 3.1 Results & Data ([facility]) Vital Signs (Past 12 Hours) Vital Signs Temp Pulse Pulse Resp BP BP Pulse Ox 03/05/22 07:54 79 03/05/22 07:25 37.1 C 70 18 115/72 94 03/05/22 03:37 37.2 C 75 18 100/56 L 94 03/05/22 00:09 85 03/04/22 23:51 37.3 C 85 20 113/68 93 Exam (Neuro) Physical Exam: she is awake and alert. Speech is without aphasia or dysarthria mood affect are appropriate. Thought processes are intact with good long and short-term memory. Mood is normal and affect is appropriate. She is oriented. Extraocular eye muscles are intact without nystagmus. There is no facial droop. Neck is supple but gives her discomfort with movement. Coordination is normal in the arms without tremor or ataxia. Strength is symmetrical in the limbs. Stance sitting up in bed is normal. PG Care Time/CCT Total # of Minutes Spent Total Time Spent with Patient: Total time spent is greater than 50% in coordination of care (as documented) at patient's floor/unit and/or counseling patient: Coding Level of Care Code 91009 Subseq Hosp Care Lvl 3 Diagnoses Cryptococcal meningitis B45.1 Headache R51.9 Chronic cerebral ischemia I67.82 Time Spent (min) 75 Comment Add modifiers as able
[2022-03-05] MEDS ORDERED: POTASSIUM CHLORIDE CRTAB 20 MEQ TABCR PO STA ×2 (10:23→17:29)
--- NOTE | 2022-03-05 11:43 | Fluoroscopy Report ---
FLUOROSCOPIC GUIDED LUMBAR PUNCTURE CLINICAL HISTORY: Cryptococcal meningitis. Therapeutic lumbar puncture. PROCEDURE: The risks, benefits, and alternatives to the procedure were discussed with the patient who voiced understanding. Written informed consent was obtained. The patient was placed prone on the flu oroscopy table. The lower back was prepped and draped in the usual sterile fashion. 1% lidocaine was used for local anesthesia. A 20-gauge spinal needle was inserted into the L4-L5 interlaminar space, a nd approximately 10 cc of clear cerebrospinal fluid was removed. The patient tolerated the procedure well. There were no immediate complications. A single spot image was saved. The patient was then retu rned to the medical unit for further observation. Fluoroscopy time: 0.3 minutes Opening pressure: 25 cm of water IMPRESSION: Fluoroscopic guided lumbar puncture with removal of approximately 10 cc of cerebrospinal fluid. There were no immediate complications. ACT 112: Negative or not required by law. Electronically signed by: Hunter Martinez M.D. 03/05/2022 11:41 AM
--- NOTE | 2022-03-05 11:47 | Pharmacy Report ---
Pharmacy Glycemic Short Note 2 - Date of Service March 05, 2022 - Glycemic Short BSG Results (Last 24 hours): 03/04/22 03/04/22 03/05/22 16:02 20:15 06:27 Glucose 96 POC Glucose 83 87 03/05/22 07:13 Glucose POC Glucose 107 H OUTPATIENT ANTIDIABETIC REGIMEN: * Toujeo 68 units QPM * Novolog CF 30, CR 2 * A1c 9.4% 12/18/21 ASSESSMENT: 03/05 * Blood sugars at goal, on the lower end, no hypoglycemia, loosen CR today. * Consider decreasing Lantus 10-20% if continuing lower. 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 * Will continue to tighten novolog parameters as needed PLAN FOR INPATIENT GLYCEMIC CONTROL: * Basal insulin * Lantus 20 units qAM * Bolus insulin * NovoLog per scale ACHS or Q6hrs while NPO * Goal Range: Low 110 mg/dL - High 140 mg/dL * Correction Factor: 25 mg/dL/unit * Nutritional / Prandial insulin per carb ratio of 1 unit per 6 grams CHO consumed
[2022-03-05 12:01] LABS: Total Protein CSF 79.7 mg/dl (15-45)
[2022-03-05 12:04] LABS: Appearance CSF Clear; CSF Count Tube # 3; CSF Xanthrochromic No xanthochromia; Color CSF Colorless
[2022-03-05 12:06] LABS: Red Blood Cell CSF (A) 2 /uL (0-); Red Blood Cell CSF (B) 6 /uL (0-)
[2022-03-05 12:07] LABS: Mononuclear WBC CSF 81.3 %; Polynuclear WBC CSF 18.7 %
[2022-03-05 12:13] LABS: White Blood Cell CSF (A) 266 /uL (0-5)
--- NOTE | 2022-03-05 13:05 | Medical Student Progress Note ---
Date of Service March 05, 2022 Assessment & Plan (1) Cryptococcal meningitis: Plan: 61 yo F w pmh of HTN, DM2, HLD presents in PCU for crypto men treatment. pt is taking flucytosine and amp B. 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 Elevated WBC and total protein in CSF -CT and MRI imaging negative for acute intracranial findings. -Received 10 mg dexamethasone in the ED, will hold on further glucocorticoid use for now -CT chest and abdomen without clear source of other infection -HIV and hepatitis panels negative, diabetes and cirrhosis as potential source -ID consulted, following recs -monitor for worsening FLOWERS and AMS -repeat LP 03/05 with opening pressure; hold lovenox tonight; completed -CSF clear, 10 mL drained w opening pressure of 13. CSF:WBC 266; protein 79.7; glucose 30 -On Amphotericin B 300mg IV Q24; flucytosine 1500mg PO Q6h; discontinued fluconazole -daily bmp and mg2+, CBC & hepatic panel hypokalemia - K+ 3.1; tx'd with 40mg KCl tablet x2 (03-04-2022) - K+ 3.1; tx'd with 40mg KCl tablet x2 (2021); still low Anxiety and depression -continue home venlafaxine and mirtazapine Hypertension -continue lisinoprilhydrochlorothiazide History of Dhillon cirrhosisCT abdomen pelvis demonstrating cirrhosis. Normal LFTs and no signs of liver failure -Continue to monitor as above Thrombocytopenia - plts 131 to 134; monitor; resolved. DM type II -Continue basal and sliding scale -glucose goal 140 to 180 mg -last A1c 9.4% -pharm glycemic consult in place: 68u glargine at night; carb ratio 2.5g/u aspart -DM education HLD -allergic to statin -follow up with primary care regarding treatment DVT PROPHYLAXIS - SCDs, Lovenox, ASA 81mg FEN/GI-heart healthy diet CODE: Full Code Disposition: PCU (2) Migraine headache: Intractability: not intractable Migraine type: unspecified Status migrainosus presence: without status migrainosus Qualified Code(s): G43.909 - Migraine, unspecified, not intractable, without status migrainosus (3) Cirrhosis of liver: (4) Diabetes mellitus type 2, uncontrolled, without complications: (5) Dyslipidemia: (6) Irritable bowel syndrome: (7) Other chronic nonalcoholic liver disease: (8) Dizziness: (9) Nausea: Admission and Anticipated Discharge Date Admission Date: March 01, 2022 Supervising Attestation I personally examined the patient and verified all fish points of history and exam, discussed case, and agree with decision making with A [place] MS2 Seen post LPheadache doing better pressure behind eyes doing better. Case discussed with neurology, input greatly appreciated. vitals noted nad aaox3 heent nc at mmm breathing unlabored no accessory muscles good effort skin no rashes no pallor or icterus neuro no focal deficits cryptococcal meningitis - continue ampho B and flucytosine (pharmacy reviewed dosinginput greatly appreciated), serial exams, repeat LP therapeutically (opening pressure was low at 13reassuring). HIV negative, but risks appear to be cirrhosis + uncontrolled DM cirrhosis - INR and bili reassuring uncontrolled DM - insulin management inpatient. ongoing education. discussed "why to care" (high sugars clog arteries) as well as pathophys of insulin resistance and the critical role of lifestyle in management/correction thereof. pt expressed good understanding of this. We will continue to educate throughout her hospital stay DVT proph - lovenox held today for LPcan resume tomorrow otherwise as above Subjective Today pt has decreased photophobia; no dizziness; sore neck but not stiff; no N/V; no blurry vision; no Palpitations; increased eye pressure; pt reports sometimes not making it to the bathroom to urinate but no problem with BMs except feeling constipated. Review of Systems Constitutional: as per Subjective / HPI Physical Exam Physical Exam: GA: tired appearing neuro: AOx3 cataracts present 0-1+ reflexes finger nose coordination intact 5/5 strength sensation intact gait deferred (fall risk) lungs: bibasilar crackles; course crackles b/l mid/upper lobes; atelectasis heart: normal Constitutional: cooperative and comfortable Eyes: PERRL, conjunctivae normal, anicteric sclerae ENMT: external ear and nose normal, oropharynx normal Neck: trachea midline, no thyromegaly Respiratory: normal respiratory effort, lungs clear to auscultation Cardiovascular: RRR, no murmur, no edema Heart Sounds: normal S1 and normal S2 Vessels: no JVD Extremities: no edema Gastrointestinal (Abdomen): normal bowel sounds, soft, nontender, no hepatosplenomegaly Skin: no rashes, warm and dry Neurologic: PERRL, EOMI, accommodation nl, no face palsy, no dysarthria Motor/Sensory: normal movement and no sensory deficit (reflexes 1+, 5/5 strength in all extremities) Psychiatric: A+Ox3, euthymic affect Results & Data ([facility]) Vital Signs (Past 12 Hours) Vital Signs Temp Pulse Pulse Resp BP BP Pulse Ox 03/05/22 12:26 74 14 115/71 91 03/05/22 12:11 37.2 C 74 14 113/72 92 03/05/22 11:56 37.2 C 88 14 113/72 92 03/05/22 07:54 79 03/05/22 07:25 37.1 C 70 18 115/72 94 03/05/22 03:37 37.2 C 75 18 100/56 L 94
--- NOTE | 2022-03-05 18:11 | Billing Data ---
Date of Service March 05, 2022 Coding Level of Care Code 30932 Subseq Hosp Care Lvl 3
[2022-03-05] MEDS: VENLAFAXINE HCL XR 150 MG CAPXR PO SCH (21:26)
[2022-03-05] MEDS: MIRTAZAPINE TAB 15 MG TAB PO SCH (21:26)
[2022-03-05] MEDS: LISINOPRIL/HCTZ 10/12.5MG TAB PO SCH (21:26)
[2022-03-05] MEDS: ASPIRIN 81 MG ECTAB PO SCH (21:26)
[2022-03-05] MEDS: AMBISOME IV SCH (21:27)
[2022-03-05] MEDS: DEXTROSE 5% IV SCH (21:27)
[2022-03-06] MEDS: FLUCYTOSINE 500 MG CAP PO SCH ×5 (00:12→23:55)
[2022-03-06 06:34] LABS: Basophils # (auto) 0.03 K/uL (0-0.2); Basophils % (auto) 0.4 %; Eosinophils # (auto) 0.18 K/uL (0-0.5); Eosinophils % (auto) 2.6 %; Hemoglobin 9.2 g/dL (12.0-16.0); Immature Granulocytes # (auto) 0.02 K/uL (0.00-0.02); Immature Granulocytes % (auto) 0.3 %; Lymphocytes # (auto) 1.25 K/uL (1.2-3.4); Lymphocytes % (auto) 17.7 %; Mean Corpuscular Hemoglobin 27.8 pg (25-34); Mean Corpuscular Hgb Conc 32.9 g/dL (32-36); Mean Corpuscular Volume 84.6 fL (80-100); Mean Platelet Volume 10.6 fL (7.4-10.4); Monocytes # (auto) 0.65 K/uL (0.11-0.59); Monocytes % (auto) 9.2 %; Neutrophils # (auto) 4.92 K/uL (1.4-6.5); Neutrophils % (auto) 69.8 %; Platelet Count 142 K/uL (130-400); RDW Coefficient of Variation 15.5 % (11.5-14.5); RDW Standard Deviation 48.2 fL (36.4-46.3); Red Blood Count 3.31 M/uL (4.2-5.4); White Blood Count 7.05 K/uL (4.8-10.8)
[2022-03-06 06:53] LABS: BUN Creatinine Ratio 17.9 (10-20); Bilirubin,Total 0.5 mg/dl (0.2-1.0); Calcium 7.9 mg/dl (8.5-10.1); Creatinine Clr Calc Pharmacy 53.3 ml/min; Est GFR (Non-African American) 52.6 ml/min; Globulin 2.9 gm/dl (2.5-4.0); Magnesium 1.8 mg/dl (1.7-2.4); Potassium 3.4 mmol/L (3.5-5.1); Total Protein 5.9 gm/dl (6.0-8.3)
--- NOTE | 2022-03-06 08:19 | Hospitalist Progress Note ---
Date of Service March 06, 2022 Assessment & Plan (1) Cryptococcal meningitis: Plan: 61-year-old female presents to the ICU following diagnosis of cryptococcal meningitis with positive CSF bio fire from LP. Now undergoing treatment with amphotericin B and fluconazole regimen. 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 Elevated WBC and total protein in CSF -Symptoms as noted in admission HPI. Current CT and MRI imaging negative for acute intracranial findings. No hydrocephalus -Received 10 mg dexamethasone in the ED, will hold on further glucocorticoid use for now -Given Vancomycin, ceftriaxone, acyclovir initially. D/C'd due to fungal fungal etiology. -CT chest and abdomen without clear source of other infection. HIV and hepatitis panels negative. -Cirrhosis and DM known risk factors for Cryptococcal meningitis. -Started on amphotericin B and fluconazole regimen on admission - flucytosine not readily available in hospital. -Pharmacy ordered flucytosine, started flucytosine 03/03, ideal body weight dosing, QID. Will monitor CBC, BMP daily and monitor for symptoms of nausea/vomiting. -If patient w/ worsening headaches or mentation, consider repeat LP for therapeutic relief of increased ICP. -ID consulted, follow-up recs -Trend fever curve Anxiety and depression -continue home venlafaxine and mirtazapine Hypertension -continue lisinoprilhydrochlorothiazide History of Dhillon cirrhosisCT abdomen pelvis demonstrating cirrhosis. Normal LFTs and no signs of liver failure -Continue to monitor as above Thrombocytopenia - Plts dec 139 to 110; monitor DM type II -Continue basal and sliding scale -glucose goal 140 to 180 mg -pharm glycemic consult in place HLD -allergic to statin -follow up with primary care regarding treatment DVT PROPHYLAXIS - SCDs, Lovenox, ASA 81mg FEN/GI-heart healthy diet CODE: Full Code Disposition: PCU (2) Hypertension: (3) Depression: (4) Diabetes mellitus type 2, uncontrolled, without complications: (5) Dyslipidemia: Admission and Anticipated Discharge Date Admission Date: March 01, 2022 Supervising Physician Co-Signing Physician Notes I personally examined the patient and verified all fish points of history and exam, discussed case, and agree with decision making with Dr Shah Headache ongoingwas better in the morning a little bit worse as the day progresses. No confusion. Still with photophobia vitals noted nad aaox3 heent nc at mmm breathing unlabored no accessory muscles good effort skin no rashes no pallor or icterus neuro no focal deficits cryptococcal meningitis - continue ampho B and flucytosine , serial exams periodic LP. HIV negative, but risks appear to be cirrhosis + uncontrolled DM cirrhosis - INR and bili reassuring, discussed that lifestyle change for diabetes may have a very favorable impact on the progression of her liver disease uncontrolled DM - insulin management inpatient. Sugars been well controlled. Ongoing education DVT proph - lovenox otherwise as above Subjective No acute events overnight. Pt slept well overnight, reports her headache has not improved from day prior but not worsened either. Still having some photosensitivity. Denies any weakness/numbness/visual change. Review of Systems Constitutional: as per Subjective / HPI Physical Exam Constitutional: WD/WN, vitals as above Eyes: PERRL, conjunctivae normal, anicteric sclerae Respiratory: normal respiratory effort, lungs clear to auscultation Cardiovascular: RRR, no murmur, no edema Gastrointestinal (Abdomen): normal bowel sounds, soft, nontender, no hepatosplenomegaly Neurologic: Patellar reflexes 1+ Psychiatric: A+Ox3, euthymic affect Results & Data Results & Data ([facility]) Vital Signs (Past 12 Hours) Vital Signs Temp Pulse Pulse Resp BP Pulse Ox 03/06/22 07:39 85 03/06/22 07:11 36.9 C 81 18 119/71 95 03/06/22 06:13 89 95 03/06/22 03:38 36.7 C 77 16 109/69 94 03/05/22 23:33 37.2 C 83 18 108/62 91 03/05/22 22:00 84 Resident Activity Tracking Resident Involvement: Resident Care Provided Care Provided: Adult Hospital Medicine (1) Depression Depression Type: unspecified Qualified Code(s): F32.9 - Major depressive disorder, single episode, unspecified (2) Hypertension Hypertension type: essential hypertension Qualified Code(s): I10 - Essential (primary) hypertension
[2022-03-06] MEDS: INSULIN GLARGINE SOLOSTAR 100 UNITS/ML 3 ML PEN SC SCH (08:32)
[2022-03-06] MEDS: INSULIN ASPART PER UNIT SC SCH ×4 (08:35→20:56)
--- NOTE | 2022-03-06 13:33 | Neurology Progress Note ---
Date of Service March 06, 2022 Assessment & Plan (1) Cryptococcal meningitis: (2) Headache: (3) Chronic cerebral ischemia: Plan: This patient, prior to admission, had a 2 week history of headaches, neck pain, rash and a positive diagnosis of cryptococcus in the [employer] after LP. With her symptoms I would diagnose to cryptococcal meningitis but there are no signs of a cryptococcal encephalitis, given her normal mental status examination, no focal neurologic findings, or seizures. She has no vision changes or fever. Clinically, she is improving her symptoms since admission. Lumbar puncture 6-7, showed 320 white cells and 108 protein, but unfortunately an opening pressure was not obtained. lumbar puncture 6-10 showed 266 white cells and a protein of 80. opening pressure was 25 (which is borderline high) A serum cryptococcal antigen titer is pending -if positive, we can use as a marker to follow The patient has chronic cerebral ischemia likely secondary to long-standing diabetes and hypertension. She is on a baby aspirin daily to help prevent fu rther ischemia. The etiology of her cryptococcus infection is not apparent. Typically, it would be breathed in, as the yeast lives in the soil, and then hematogenously spread to the [employer]. It is associated with birds (such as chickens or pigeons) but the patient does not have an obvious exposure. In a recent study, of non-HIV patients with cryptococcal meningitis 30% had no obvious cause / source. She is somewhat immunocompromised with the hepatic cirrhosis and inadequately controlled diabetes. She has not been on steroids. 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 Studies have shown that in non HIV patients, 30% of patients with cryptococcus meningoencephalitis have no identifiable source of the infection. Recommendations: 1. continue 2 weeks of amphotericin B (0.7-1.0 mg/kg/day, IV is the typical dose). Infectious Disease consultation 03-03-22 has recommended 300 mg IV daily. 2. continue 2 weeks of flucytosine (100 milligrams/kilogram per day is the typical dose) - we would have to increase her dose to 2000 mg Q 6 hours ( 8000mg/day total). 3. Following the induction therapy of amphotericin B and flucytosine, after the 2 weeks, would need an LP to look for CSF sterilization. The patient would then be treated with fluconazole 800 mg per day for 8 weeks 4. Although the LP is improved, according to the radiologist's note the opening pressure of 25 is borderline, she probably should have another LP in 3-4 days. 5. consider ketorolac IV, as needed for headache pain. 6. There is no indication for steroids, acetazolamide, or mannitol for addressing/ treating increased intracranial pressure In this condition. 7. monitor for amphotericin B toxicity ( electrolyte imbalance and nephrotoxicity) 8. Monitor for flucytosine toxicity ( hepatic, cardiac, renal, and [employer]-headache, confusion, weakness, etc) 9. I will follow. Overall, I spent a total of 35 minutes with this case including review of records, direct evaluation the patient at bedside, and discussion of the case with the patient and RN at bedside, and Dr. Conn, including differential diagnosis and treatment options. Admission and Anticipated Discharge Date Admission Date: March 01, 2022 Subjective Patient underwent the spinal tap successful yesterday without difficulty. She had no significant headache afterwards. This morning, she woke up with no headache or pressure in her head or neck. This afternoon, however, she has a bifrontal headache of a mild nature. She is not confused in her vision is reasonable. She feels fatigued. Opening pressure of the lumbar puncture yesterday was 25. White cells were 266 ( 81% monos) with a protein of 79 and a CSF glucose of 30. a Gram stain/smear was not done as far as I can tell. Blood pressure is 116/69. Results & Data ([facility]) Vital Signs (Past 12 Hours) Vital Signs Temp Pulse Pulse Resp BP Pulse Ox 03/06/22 11:23 36.7 C 109 H 16 112/69 94 03/06/22 07:39 85 03/06/22 07:11 36.9 C 81 18 119/71 95 03/06/22 06:13 89 95 03/06/22 03:38 36.7 C 77 16 109/69 94 Exam (Neuro) Physical Exam: She is awake and alert. Speech is without aphasia or dysarthria. Mood is normal and affect is appropriate. Thought processes are intact with good long and short-term memory. Extraocular muscles are intact without nystagmus. There is no facial droop. Tongue is midline. Coordination is normal in the arms. Strength is symmetric in the limbs. There are no abnormal involuntary movements. Stance sitting up is normal. PG Care Time/CCT Total # of Minutes Spent Total Time Spent with Patient: Total time spent is greater than 50% in coordination of care (as documented) at patient's floor/unit and/or counseling patient: Coding Level of Care Code 50177 Subseq Hosp Care Lvl 3 Diagnoses Cryptococcal meningitis B45.1 Headache R51.9 Chronic cerebral ischemia I67.82 Time Spent (min) 35
[2022-03-06] MEDS ORDERED: KETOROLAC TROMETHAMINE 15 MG/ML VIAL IV PRN (13:34)
--- NOTE | 2022-03-06 16:17 | Billing Data ---
Date of Service March 06, 2022 Coding Level of Care Code 84268 Subseq Hosp Care Lvl 3
[2022-03-06] MEDS: ACETAMINOPHEN 325 MG TAB PO PRN (20:55)
[2022-03-06] MEDS: VENLAFAXINE HCL XR 150 MG CAPXR PO SCH (20:55)
[2022-03-06] MEDS: MIRTAZAPINE TAB 15 MG TAB PO SCH (20:56)
[2022-03-06] MEDS: DEXTROSE 5% IV SCH (20:56)
[2022-03-06] MEDS: AMBISOME IV SCH (20:56)
[2022-03-06] MEDS: ASPIRIN 81 MG ECTAB PO SCH (20:56)
[2022-03-06] MEDS: LISINOPRIL/HCTZ 10/12.5MG TAB PO SCH (21:42)
[2022-03-07] MEDS: FLUCYTOSINE 500 MG CAP PO SCH ×4 (05:54→23:38)
[2022-03-07] MEDS ORDERED: METOPROLOL TARTRATE 1 MG/ML VIAL IV STA (06:18)
[2022-03-07 07:51] LABS: Basophils # (auto) 0.03 K/uL (0-0.2); Basophils % (auto) 0.4 %; Eosinophils # (auto) 0.22 K/uL (0-0.5); Eosinophils % (auto) 2.9 %; Hematocrit (blood only) 31.2 % (37-47); Hemoglobin 10.4 g/dL (12.0-16.0); Immature Granulocytes # (auto) 0.03 K/uL (0.00-0.02); Immature Granulocytes % (auto) 0.4 %; Lymphocytes # (auto) 1.67 K/uL (1.2-3.4); Lymphocytes % (auto) 21.9 %; Mean Corpuscular Hemoglobin 28.7 pg (25-34); Mean Corpuscular Hgb Conc 33.3 g/dL (32-36); Mean Platelet Volume 10.7 fL (7.4-10.4); Monocytes # (auto) 0.66 K/uL (0.11-0.59); Monocytes % (auto) 8.7 %; Neutrophils # (auto) 5.01 K/uL (1.4-6.5); Neutrophils % (auto) 65.7 %; Platelet Count 187 K/uL (130-400); RDW Coefficient of Variation 15.4 % (11.5-14.5); RDW Standard Deviation 48.9 fL (36.4-46.3); Red Blood Count 3.63 M/uL (4.2-5.4); White Blood Count 7.62 K/uL (4.8-10.8)
--- NOTE | 2022-03-07 07:54 | Hospitalist Progress Note ---
Date of Service March 07, 2022 Assessment & Plan (1) Cryptococcal meningitis: Plan: 61-year-old female presents to the ICU following diagnosis of cryptococcal meningitis with positive CSF bio fire from LP. Now undergoing treatment with amphotericin B and fluconazole regimen. 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 Elevated WBC and total protein in CSF -Symptoms as noted in admission HPI. Current CT and MRI imaging negative for acute intracranial findings. No hydrocephalus -Received 10 mg dexamethasone in the ED, will hold on further glucocorticoid use for now -Given Vancomycin, ceftriaxone, acyclovir initially. D/C'd due to fungal etiology. -CT chest and abdomen without clear source of other infection. HIV and hepatitis panels negative. -Cirrhosis and DM known risk factors for Cryptococcal meningitis. -Started on amphotericin B and fluconazole regimen on admission - flucytosine not readily available in hospital. -Pharmacy ordered flucytosine, started flucytosine 03/03, ideal body weight dosing, QID. Will monitor CBC, BMP daily and monitor for symptoms of nausea/vomiting. -If patient w/ worsening headaches or mentation, consider repeat LP for therapeutic relief of increased ICP. -ID consulted, follow-up recs -Trend fever curve New onset atrial fibrillation with rapid ventricular response -Attempted conversion with rate control agents, given 5 mg IV metoprolol followed by 50 mg metoprolol p.o. this morning and additional 50 mg metoprolol p.o. in the afternoon without response -Seems to have a flutter morphology, and since lack of response with beta- blockade, cardiology consulted for possible need for electrocardioversion -Appreciate cardiology consultation -[id number] score 4, with possible need for cardioversion and later spinal taps, will hold off anticoagulation at this time Anxiety and depression -continue home venlafaxine and mirtazapine Hypertension -continue lisinoprilhydrochlorothiazide History of Dhillon cirrhosisCT abdomen pelvis demonstrating cirrhosis. Normal LFTs and no signs of liver failure -Continue to monitor as above Thrombocytopenia, resolved - Plts now at 187 DM type II -Continue basal and sliding scale -glucose goal 140 to 180 mg -pharm glycemic consult in place HLD -allergic to statin -follow up with primary care regarding treatment DVT PROPHYLAXIS - SCDs, Lovenox, ASA 81mg FEN/GI-heart healthy diet CODE: Full Code Disposition: PCU (2) Hypertension: (3) Depression: (4) Diabetes mellitus type 2, uncontrolled, without complications: (5) Dyslipidemia: Admission and Anticipated Discharge Date Admission Date: March 01, 2022 Supervising Physician Co-Signing Physician Notes I personally examined the patient and verified all fish points of history and exam, discussed case, and agree with decision making with Dr Rodriguez Headache and photophobia bit better today. Does feel chest palpitations. vitals noted nad aaox3 heent nc at mmm breathing unlabored no accessory muscles good effort skin no rashes no pallor or icterus neuro no focal deficits atrial flutter pretty persistently around 130 cryptococcal meningitis - continue ampho B and flucytosine , serial exams periodic LP. HIV negative, but risks appear to be cirrhosis + uncontrolled DMappearing quite stable in this regard New onset atrial flutterrates around 130, metoprolol has not made much of an impact. Given that it is atrial flutter, not fib, will ask cardiology for inputgiven that she may need rhythm control. Echo done, reassuring. TSH 1.125 cirrhosis - INR and bili reassuring, discussed that lifestyle change for diabetes may have a very favorable impact on the progression of her liver dise ase uncontrolled DM - insulin management inpatient. Sugars been well controlled. Ongoing education (educated on "why to care" (high sugars clog arteries", educated on the pathophysiology/critical role of lifestyle in causing (and therefore progressing) insulin resistance, due to to other clinical circumstances, have not yet been able to educate on postprandial glucose monitoring as it relates to matching mealtime insulin dosing. (For clarification did discuss postprandial glucose monitoring as it relates to judging the quality of the carbohydrates in her food)) DVT proph - lovenox otherwise as above Subjective Patient seen at bedside this morning. Patient did go into A. fib with RVR overnight requiring a new oxygen demand requiring a 4 L nasal cannula. Patient does seem a little out of it this morning although I am not familiar with what her baseline is on previous days. She has seems to have a depressive affect today. Patient is determined to do what she needs to do in order to get better. Otherwise not reporting any new symptoms or complaints. Denies chest pain. No other complaints at this time. Review of Systems Review of Systems: All systems reviewed & are unremarkable except as noted in HPI & below Physical Exam Constitutional: WD/WN, vitals as above + lethargic Eyes: PERRL, conjunctivae normal, anicteric sclerae Neck: normal visual inspection Respiratory: normal respiratory effort Auscultation: + rales Cardiovascular: Rate/Rhythm: + tachycardic and + irregularly irregular Extremities: + edema Gastrointestinal (Abdomen): Inspection/Auscultation: normal bowel sounds Percussion/Palpation: abdomen soft; abdomen nontender Musculoskeletal: Head/Neck/Chest: normocephalic and head atraumatic Skin: no rashes, warm and dry Neurologic: moves all extremities Psychiatric: Orientation: alert and oriented x 3 Affect: + depressed affect Results & Data Results & Data ([facility]) Vital Signs (Past 12 Hours) Vital Signs Temp Pulse Pulse Resp BP BP Pulse Ox 03/07/22 07:44 36.5 C 145 H 18 104/70 96 03/07/22 06:44 133 H 14 132/79 93 03/07/22 06:28 147 H 127/70 03/07/22 02:56 36.9 C 86 17 126/71 94 03/06/22 23:00 36.9 C 81 85 18 107/61 91 03/06/22 22:00 16 95 (1) Depression Depression Type: unspecified Qualified Code(s): F32.9 - Major depressive disorder, single episode, unspecified (2) Hypertension Hypertension type: essential hypertension Qualified Code(s): I10 - Essential (primary) hypertension
[2022-03-07] MEDS ORDERED: METOPROLOL TARTRATE 50 MG TAB PO STA ×2 (08:04→14:32)
[2022-03-07 08:11] LABS: Albumin Level 3.3 gm/dl (3.4-5.0); BUN Creatinine Ratio 16.8 (10-20); Bilirubin,Total 0.6 mg/dl (0.2-1.0); Calcium 8.5 mg/dl (8.5-10.1); Creatinine Clr Calc Pharmacy 55.4 ml/min; Est GFR (African American) 64.4 ml/min; Est GFR (Non-African American) 55.6 ml/min; Globulin 3.2 gm/dl (2.5-4.0); Magnesium 1.7 mg/dl (1.7-2.4); Potassium 3.2 mmol/L (3.5-5.1); Total Protein 6.5 gm/dl (6.0-8.3)
[2022-03-07] MEDS: INSULIN ASPART PER UNIT SC SCH ×4 (08:43→21:11)
[2022-03-07] MEDS: INSULIN GLARGINE SOLOSTAR 100 UNITS/ML 3 ML PEN SC SCH (08:44)
[2022-03-07] MEDS ORDERED: ENOXAPARIN INJ 40 MG/0.4 ML SYR SQ SCH (09:00)
--- NOTE | 2022-03-07 09:17 | XRay Report ---
XR chest 1V portable CLINICAL HISTORY: new hypoxia with afib. COMPARISON STUDY: 06/16/2021 TECHNIQUE: 1 view of the chest FINDINGS: Single frontal view of the chest demonstrates the cardiomediastinal silhouette to be within normal li mits. There is a decreased inspiratory effort with elevation of the hemidiaphragms and crowding of th e bronchovascular markings at the lung bases and centrally. There is also evidence for small bilatera l pleural effusions, left greater than right and left basilar atelectasis. No confluent alveolar opac ities are identified. There is no evidence for vascular congestion. There is no acute osseous patholo gy. IMPRESSION: 1. Decreased inspiration with small bilateral pleural effusions, left greater than right and left bas ilar atelectasis. ACT 112: Negative or not required by law. Electronically signed by: Yifan Louis M.D. 03/07/2022 9:16 AM
--- NOTE | 2022-03-07 12:16 | XCELERA ---
[id number]
--- NOTE | 2022-03-07 12:29 | Electrocardiogram Report ---
Test Reason : Blood Pressure : / mmHG Vent. Rate : 132 BPM Atrial Rate : 178 BPM P-R Int : 000 ms QRS Dur : 110 ms QT Int : 334 ms P-R-T Axes : 000 -45 116 degrees QTc Int : 494 ms Atrial fibrillation with rapid ventricular response Left anterior fascicular block Abnormal ECG Confirmed by Brendon Nina ([id number]) on 03/07/2022 12:29:14 PM Referred By: REFERRED SELF Confirmed By:Alvino Nina
[2022-03-07] MEDS: ACETAMINOPHEN 325 MG TAB PO PRN (15:14)
--- NOTE | 2022-03-07 15:27 | Billing Data ---
Date of Service March 07, 2022 Coding Level of Care Code 06294 Subseq Hosp Care Lvl 3
[2022-03-07] MEDS: VENLAFAXINE HCL XR 150 MG CAPXR PO SCH (20:35)
[2022-03-07] MEDS: MIRTAZAPINE TAB 15 MG TAB PO SCH (20:36)
[2022-03-07] MEDS: LISINOPRIL/HCTZ 10/12.5MG TAB PO SCH (20:36)
[2022-03-07] MEDS: ASPIRIN 81 MG ECTAB PO SCH (20:36)
[2022-03-07] MEDS: DEXTROSE 5% IV SCH (20:45)
[2022-03-07] MEDS: AMBISOME IV SCH (20:45)
[2022-03-08] MEDS: FLUCYTOSINE 500 MG CAP PO SCH ×2 (05:44→21:43)
[2022-03-08 07:42] LABS: Albumin Level 3.2 gm/dl (3.4-5.0); BUN Creatinine Ratio 12.1 (10-20); Bilirubin,Total 0.5 mg/dl (0.2-1.0); Calcium 8.2 mg/dl (8.5-10.1); Creatinine Clr Calc Pharmacy 26.7 ml/min; Est GFR (African American) 26.5 ml/min; Est GFR (Non-African American) 22.9 ml/min; Globulin 3.2 gm/dl (2.5-4.0); Magnesium 1.8 mg/dl (1.7-2.4); Potassium 3.1 mmol/L (3.5-5.1); Total Protein 6.4 gm/dl (6.0-8.3)
[2022-03-08 07:43] LABS: Basophils # (auto) 0.03 K/uL (0-0.2); Basophils % (auto) 0.3 %; Eosinophils # (auto) 0.28 K/uL (0-0.5); Eosinophils % (auto) 3.2 %; Hematocrit (blood only) 29.6 % (37-47); Hemoglobin 9.7 g/dL (12.0-16.0); Immature Granulocytes # (auto) 0.04 K/uL (0.00-0.02); Immature Granulocytes % (auto) 0.5 %; Lymphocytes # (auto) 2.36 K/uL (1.2-3.4); Lymphocytes % (auto) 27.4 %; Mean Corpuscular Hgb Conc 32.8 g/dL (32-36); Mean Corpuscular Volume 85.3 fL (80-100); Mean Platelet Volume 10.3 fL (7.4-10.4); Monocytes # (auto) 0.94 K/uL (0.11-0.59); Monocytes % (auto) 10.9 %; Neutrophils # (auto) 4.97 K/uL (1.4-6.5); Neutrophils % (auto) 57.7 %; Platelet Count 202 K/uL (130-400); RDW Coefficient of Variation 15.7 % (11.5-14.5); RDW Standard Deviation 48.9 fL (36.4-46.3); Red Blood Count 3.47 M/uL (4.2-5.4); White Blood Count 8.62 K/uL (4.8-10.8)
--- NOTE | 2022-03-08 07:46 | Hospitalist Progress Note ---
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 Risk factors include cirrhosis and DM2, HIV negative. Repeat CSF showing decreased WBCs -CT head, MRI brain negative for acute findings, no hydrocephalus noted -Continue amphotericin B and flucytosine for 2 weeks total therapy (03/02 to 03/16) per ID, will need prophylactic fluconazole for 12+ months afterward -Repeat therapeutic LP if worsening neurologic symptoms/concern for ICP -Trend CBC, BMP ALBINA -Cr 1.07 to 2.23 today -Suspect this is secondary to amphotericin nephrotoxicity -Renal dosing of medications per pharmacy -Started mIVF- NSS w/ KCl, also encourage oral hydration New onset atrial flutter with rapid ventricular response -03/07- patient went into atrial flutter w/ RVR 130s-140s, was given metoprolol with appropriate rate control reached later in PM -Echo 03/07 wnl -Spontaneously converted to NSR on 03/08, rate controlled in HR 60s. Likely unde rlying PAF triggered by acute illness phase -Cardiology consulted, awaiting recommendations -CHADSVASC score of 4- deferring anticoagulation at this time due to possible need for future therapeutic lumbar punctures Nausea -Unlikely to be due to increased ICP as it is intermittent and spontaneously resolves, pt able to eat and drink well -Zofran PRN Hypokalemia -K 3.2 to 3.1 today -Started mIVF with 20 meq KCl -Trend BMP Anxiety and depression -Continue home venlafaxine and mirtazapine Hypertension -Continue lisinoprilhydrochlorothiazide -BP stable at present History of TOLENTINO, cirrhosis -CTAP on admission demonstrating cirrhosis -Normal LFTs on admission and no signs of liver failure -Continue to monitor as above with CMP DM2 -Continue basal and sliding scale -glucose goal 140 to 180 HLD -allergic to statin -follow up with primary care regarding treatment DVT PROPHYLAXIS - SCDs, Lovenox, ASA 81mg FEN/GI-heart healthy diet CODE: Full Code Disposition: PCU (2) Hypertension: (3) Depression: (4) Diabetes mellitus type 2, uncontrolled, without complications: (5) Dyslipidemia: Admission and Anticipated Discharge Date Admission Date: March 01, 2022 Supervising Physician Co-Signing Physician Notes Attending attestation Pt seen and examined in concert with Dr. Shah. In agreement with the documented findings as noted in the resident documentation with any exceptions or additions as noted here. Palpitations and malaise overnight with atrial flutter without recurrence of symptoms. On examination, S1/S2 nl RRR no MCG. CTAB. Abd NT/ND BS+ve, CNII-XII grossly intact as noted Cryptococcal meningitis - continue amphotericin B and flucytosine (day714). Adjust dosing for ALBINA. Monitor CBC ALBINA - IVF, monitor BMP AF w/ RVR, paroxysmal - deferring AC 2/2 may need LP urgently but would benefit from same. Else see resident documentation as noted. Subjective Per telemetry, pt spontaneously converted from atrial flutter to sinus rhythm overnight. On evaluation, pt states her headache has improved and photosensitivity is not as bothersome. Denies palpitations or lightheadedness. She does endorse some nausea but denies any emesis or worsening of her headache in relation to the nausea. Was able to eat and drink a little despite her nausea. Review of Systems Constitutional: as per Subjective / HPI Physical Exam Constitutional: WD/WN, vitals as above cooperative and comfortable Eyes: PERRL, conjunctivae normal, anicteric sclerae ENMT: external ear and nose normal, oropharynx normal +Minor frontal sinus tenderness, +photosensitivity Neck: trachea midline, no thyromegaly normal visual inspection Respiratory: normal respiratory effort, lungs clear to auscultation normal respiratory effort Cardiovascular: RRR, no murmur, no edema Rate/Rhythm: regular rate and regular rhythm Heart Sounds: normal S1 and normal S2 Vessels: no JVD Extremities: + edema (trace peripheral) Gastrointestinal (Abdomen): Percussion/Palpation: abdomen soft; abdomen nontender Musculoskeletal: Head/Neck/Chest: normocephalic and head atraumatic Skin: no rashes, warm and dry Neurologic: PERRL, EOMI, accommodation nl, no face palsy, no dysarthria moves all extremities Motor/Sensory: normal movement and no sensory deficit (reflexes 1+, 5/5 strength in all extremities) Psychiatric: A+Ox3, euthymic affect Results & Data Results & Data ([facility]) Vital Signs (Past 12 Hours) Vital Signs Temp Pulse Pulse Resp BP BP Pulse Ox 03/08/22 03:34 37 C 65 16 92/51 L 92 03/08/22 00:23 36.9 C 66 18 90/54 L 90 03/08/22 00:22 71 Resident Activity Tracking Resident Involvement: Resident Care Provided Care Provided: Adult Hospital Medicine (1) Depression Depression Type: unspecified Qualified Code(s): F32.9 - Major depressive disorder, single episode, unspecified (2) Hypertension Hypertension type: essential hypertension Qualified Code(s): I10 - Essential (primary) hypertension
[2022-03-08] MEDS: INSULIN ASPART PER UNIT SC SCH ×4 (08:57→20:44)
[2022-03-08] MEDS: INSULIN GLARGINE SOLOSTAR 100 UNITS/ML 3 ML PEN SC SCH (08:58)
[2022-03-08] MEDS ORDERED: INSULIN GLARGINE SOLOSTAR 100 UNITS/ML 3 ML PEN SC SCH (09:00)
--- NOTE | 2022-03-08 10:20 | Neurology Progress Note ---
Date of Service March 08, 2022 Assessment & Plan (1) Cryptococcal meningitis: Plan: Cryptococcal meningitis. Continue with Amphotericin and flucytosine per infectious diseases recommendations. Switch to oral fluconazole after 2 weeks of intravenous therapy per ID recommendations. Plan for 1 year of treatment with oral fluconazole. Consider follow-up lumbar puncture later this week to continue to ensure improvement/CSF sterilization/improving elevated ICP. No further immediate recommendations. Admission and Anticipated Discharge Date Admission Date: March 01, 2022 Subjective Follow-up for cryptococcal meningitis The patient is a 61-year-old female who was admitted to the hospital March 01, 2022 for further assessment of a 2-week headache. She was diagnosed with cryptococcal meningitis and admitted for further evaluation and management. History notable for type 2 diabetes mellitus, hypertension, and cirrhosis of the liver. She is otherwise not immunocompromised. Infectious diseases has been consulted. Dr. Dailey saw this patient in neurological consultation initially on March 04, 2022. He last evaluated her on March 06. This morning, patient is without specific or focal complaint. She denies headache, vision disturbance, focal weakness, or difficulty with speech or swallowing. She denies any fevers or chills. She denies neck pain, stiffness or rigidity. Review of Systems Constitutional: no fever and no chills Neurologic: no localized weakness, no loss of sensation, no tremor(s), no headache(s) and no confusion Results & Data ([facility]) Vital Signs (Past 12 Hours) Vital Signs Temp Pulse Pulse Resp BP BP Pulse Ox 03/08/22 09:18 64 03/08/22 07:57 36.7 C 64 17 104/66 93 03/08/22 03:34 37 C 65 16 92/51 L 92 03/08/22 00:23 36.9 C 66 18 90/54 L 90 03/08/22 00:22 71 Laboratory Results Patient has had 2 lumbar punctures completed, 1 on March 01, another on March 05. Her CSF has been clear, colorless, and without xanthochromia. CSF WBCs have improved from 320 to 266. CSF protein went from 108.5 to 79.7. CSF cryptococcal neoformans PCR was positive. A serum cryptococcal antigen test is pending. Diagnostic Findings A brain MRI completed March 02, 2022 was negative for acute process. No abnormal enhancement. No hydrocephalus. There is scattered nonspecific T2/FLAIR hyperintensity, subcortical, probably consistent with chronic microvascular ischemic change. Exam (Neuro) Neurologic: Oriented to:: Person, Place and Time Attention: Span Intact and Concentration Intact Speech Fluency: negative Dysarthria or Dysfluency Fund of Knowledge: Current Events, Past History and Vocabulary Cranial Nerves: Normal II, III, IV, , V, VII, VIII, IX, X, XI and XII Motor Strength: Normal Lower Extremities and Normal Upper Extremities Coordination: negative Finger-Nose Abnormal or Heel-Akhtar Abnormal Coding Level of Care Code 92441 Subseq Hosp Care Lvl 2 Diagnoses Cryptococcal meningitis B45.1
[2022-03-08] MEDS: NSS + 20MEQ KCL 20 MEQ/1,000 ML BAG IV SCH ×2 (10:55→15:14)
[2022-03-08 11:07] LABS: Cryptococcal Antigen Not Detected (Not Detected); Source Serum
--- NOTE | 2022-03-08 13:42 | Pharmacy Report ---
Pharmacy Glycemic Short Note 2 - Date of Service March 08, 2022 - Glycemic Short BSG Results (Last 24 hours): 03/07/22 03/07/22 03/08/22 16:09 20:39 07:03 Glucose 137 H POC Glucose 142 H 181 H 03/08/22 03/08/22 07:40 11:22 Glucose POC Glucose 141 H 277 H OUTPATIENT ANTIDIABETIC REGIMEN: * Toujeo 68 units QPM * Novolog CF 30, CR 2 * A1c 9.4% 12/18/21 ASSESSMENT: 03/08/22 * Patient's BSGs yesterday were [phone] mg/dL. Patient's BSGs today are 141-277 mg/dL. * Patient received 34 units of insulin yesterday (20 units of basal and 14 units of bolus). * Patient has developed an ALBINA with a doubling of serum creatinine. * Continue Lantus for now but will watch for accumulation. * Tighten CR since BSGs trend upwards after inrange values. Lunch BSG of 277 mg/dL is not a typical BSG for patient so will not tighten CR at lunch any further. 03/05 * Blood sugars at goal, on the lower end, no hypoglycemia, loosen CR today. * Consider decreasing Lantus 10-20% if continuing lower. 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 * Will continue to tighten novolog parameters as needed PLAN FOR INPATIENT GLYCEMIC CONTROL: * Basal insulin * Lantus 20 units qAM * Bolus insulin * NovoLog per scale ACHS or Q6hrs while NPO * Goal Range: Low 110 mg/dL - High 140 mg/dL * Correction Factor: 25 mg/dL/unit * Nutritional / Prandial insulin per carb ratio of 1 unit per 6 grams CHO consumed
--- NOTE | 2022-03-08 16:03 | Cardiology Consultation ---
Date of Consultation March 08, 2022 Assessment & Plan (1) Atrial fibrillation: (2) Mitral regurgitation: 1. Atrial fibrillation: She had several hours of atrial fibrillation. Her heart rates were elevated but she had few symptoms. This is likely her only known episode of atrial fibrillation. She had not experienced similar symptoms in the past. Unclear this is related to her acute illness. There was some concern that she may suffer from obstructive sleep apnea. This certainly has the potential to precipitate atrial fibrillation. If this diagnosis is made than appropriate treatment with CPAP will help reduce the likelihood of future episodes. if she will have any recurrences. She did have some fairly significant conversion pauses during her brief period and atrial fibrillation. She was certainly in bed at the time. She did not describe symptoms associated with these pauses. The could be exacerbated with aggressive use of rate control medications. At this point I think we can simply monitor her for recurrence. Given how well tolerated the arrhythmia was and the absence of prior episodes is unclear if we will see any additional atrial fibrillation during this hospitalization. The question of stroke risk reduction needs to be addressed. She has several risk factors for stroke including gender, hypertension and diabetes. Would suggest systemic anticoagulation with a Do act. Institution could be deferred until all likely procedures have been performed including additional spinal tap. 2. Mitral regurgitation: Mild. This can be followed over time. In the absence of additional episode she can follow-up on a routine basis in our clinic. For recurrent episodes during this hospitalization please contact our service for any additional recommendations. History of Present Illness Reason for Consultation: Atrial fibrillation Requesting Physician: Jennifer Attending Physician: Lenny Malik MD History of Present Illness The patient is a 61-year-old woman without a known history of cardiac disease who was admitted for cryptococcal meningitis. Patient reported couple of weeks of severe headaches. Spinal fluid cultures were positive for cryptococcal organisms and she was started on appropriate antifungal therapy. During her hospitalization the patient did develop an episode of atrial fibrillation. She this was manifest primarily by sense of palpitation. Her symptoms are fairly mild. She did not report other symptoms such as significant dyspnea or dizziness. No symptoms of chest pain. She spontaneously converted last evening. No recurrence. Patient cannot recall other episodes of rapid heartbeat. She has not had the same sensation in the past. She does report some elevated heart rates when she is active, but this appears to be appropriate to her degree of activity. 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 She did not report limitations associated with activity. She does not have exertional chest pain or symptoms of dyspnea. She does sleep somewhat upright in bed, but this is not appear to be related to breathing difficulty or orthopnea. Allergies Allergy/AdvReac Type Severity Reaction Status Date / Time Penicillins Allergy Intermediate Hives Verified 03/01/22 21:26 atorvastatin Allergy Unknown CAN'T Verified 03/01/22 21:26 REMEMBER gemfibrozil [From Lopid] Allergy Unknown CAN'T Verified 03/01/22 21:26 REMEMBER acetaminophen [From Tylenol] AdvReac Severe CAN NOT Verified 03/01/22 21:26 TAKE D/T LIVER ISSUES rosuvastatin AdvReac Intermediate Muscle Pain Verified 03/01/22 21:26 Home Medications Medication Instructions Recorded Confirmed Type aspirin 81 mg tablet,delayed 81 mg PO HS 06/05/19 03/01/22 History release multivitamin 1 tab PO QAM 09/07/19 03/01/22 History Contour Next Test Strips (blood #300 ea NS 12/29/20 12/22/21 Rx sugar diagnostic) blood-glucose sensor (Dexcom G6 #3 ea 01/22/21 12/22/21 History Sensor) blood-glucose transmitter (Dexcom #1 ea 01/22/21 12/22/21 History G6 Transmitter) mirtazapine 30 mg tablet 30 mg PO HS #90 tab 05/06/21 03/01/22 Rx ibuprofen 200 mg tablet (Advil) 200 mg PO Q6H PRN 06/15/21 03/01/22 History venlafaxine 150 mg 300 mg PO HS #180 cap 07/01/21 03/01/22 Rx capsule,extended release 24 hr (Effexor XR) Omnipod Dash Pods (Gen 4) (insulin #45 ea NS 09/15/21 Rx pump cartridge) acetone (urine) test (Ketostix) #50 ea 10/14/21 12/22/21 Rx pen needle, diabetic 32 gauge x #120 ea 11/06/21 12/22/21 Rx 5/32" (BD Ultra-Fine Jody Pen Needle) lisinopril 10 1 tab PO HS #30 tab 12/28/21 03/01/22 Rx mg-hydrochlorothiazide 12.5 mg tablet etodolac 200 mg capsule 200 mg PO Q12H PRN #14 cap 02/28/22 03/01/22 Rx ondansetron 4 mg disintegrating 4 mg PO Q8H PRN #30 tab 02/28/22 03/01/22 Rx tablet insulin aspart U-100 100 unit/mL 0 unit SUBCUT TIDM 03/01/22 03/01/22 History (3 mL) subcutaneous pen insulin glargine U-300 conc 300 68 unit SUBCUT QPM 03/01/22 03/01/22 History unit/mL (1.5 mL) subcutaneous pen (Toujeo SoloStar U-300 Insulin) Patient History Medical History Anxiety Cirrhosis of liver FOLLOWS W/ [facility] Stable currently Depression Diabetes mellitus, type 2 IDDM Glucose fluctuates - since Covid in December 2020 On insulin pump Follows with endocrinology Dupuytren's contracture of hand Bilateral hands Dyslipidemia History of COVID-12 January 2021 > MNM[facility], not hospitalized, fever, ear pain- did give infusion in ER No current issues Hypertension IBS (irritable bowel syndrome) Stable Insomnia Kidney stones FOLLOWS WITH DR FUCHS No current issues - monitoring currently Surgical History History of cystoscopy WITH STENTS AND STONE BASKETING History of lithotripsy History of tonsillectomy and adenoidectomy History of total hip arthroplasty LEFT Hx laparoscopic cholecystectomy Hx of colonoscopy Hx of surgical amputation of finger left pinky Hx of total hysterectomy GERALD WITH BSO Hx of tubal ligation Hx of wisdom tooth extraction Family History Father , age 75 Family history of diabetes mellitus Coronary heart disease Brother Family history of diabetes mellitus Mother , age 67 Family history of diabetes mellitus Heart disease Hypertension Grandfather (Paternal) Family history of diabetes mellitus Grandmother (Paternal) Family history of diabetes mellitus Denies family history of Ovarian cancer Breast cancer Colorectal cancer Social History Smoking Status: Former smoker Cigarettes Per Day: 06/2018; Number of Years Since Quit: 4; Second Hand Exposure: Yes; Hx Alcohol Use: No Hx Substance Use: No Preferred Language: Portuguese Communication Ability: Effective Visual Impairment: No Limitations Certified Medical Technician Required: No Beliefs That Will Affect Care: None marital status: Current Living Situation: Alone current occupational status: employed and disabled current occupation: [employer]-pt does have disability for diabetes- insurance helps Feels Safe at Home: Yes Childhood Exposure to Second-Hand Smoke: No caffeine: Yes Dental Care, Regularly: No Physical Activity Frequency: Does not Exercise Seatbelt Use: always Sunscreen Use: Yes Assistive Devices: None Review of Systems Review of Systems: Per HPI Physical Exam Physical Exam: She is alert and oriented x3. Mood affect appear normal. She answered all questions appropriately. HEENT: Sclerae are anicteric. Pupils are equal and reactive to light and accommodation. Extraocular movements were intact. Neuro: Cranial nerves intact Lungs: Normal respiratory effort without use of accessory muscles. Crackles at the bases bilaterally. There is normal pulmonary excursion. Cardiac: The rhythm was regular. S1 and S2 were normal. There are no murmurs on examination. The PMI was not markedly displaced on palpation. Extremities: Patient has bilateral radial pulses that are equal in intensity. There is no evidence cyanosis or clubbing. There was no evidence of significant peripheral edema bilaterally. Skin: There are no rashes noted on examination today. Results & Data ([facility]) Vital Signs (Past 12 Hours) Vital Signs Temp Pulse Pulse Resp BP Pulse Ox 03/08/22 15:36 36.8 C 70 17 100/62 93 03/08/22 14:57 71 03/08/22 11:00 36.6 C 65 16 102/65 92 03/08/22 09:18 64 03/08/22 07:57 36.7 C 64 17 104/66 93 Laboratory Results Abnormal Lab Results 03/05/22 03/07/22 03/07/22 09:15 16:09 20:39 WBC RBC Hgb Hct MCV MCH MCHC RDW Std Deviation RDW Coeff of Jun Plt Count MPV Immature Gran % (Auto) Neut % (Auto) Lymph % (Auto) Cobb % (Auto) Eos % (Auto) Baso % (Auto) Neut # (Auto) Lymph # (Auto) Cobb # (Auto) Eos # (Auto) Baso # (Auto) Immature Gran # (Auto) Sodium Potassium Chloride Carbon Dioxide Anion Gap BUN Creatinine Est Cr Clr Drug Dosing Est GFR ( Amer) Est GFR (Non-Af Amer) BUN/Creatinine Ratio Glucose POC Glucose 142 H 181 H Calcium Magnesium Total Bilirubin AST ALT Alkaline Phosphatase Total Protein Albumin Globulin Albumin/Globulin Ratio Cryptococcus Source Serum Cryptococcal Ag (Latex) Not Detected 03/08/22 03/08/22 03/08/22 07:03 07:03 07:40 WBC 8.62 RBC 3.47 L Hgb 9.7 L Hct 29.6 L MCV 85.3 MCH 28.0 MCHC 32.8 RDW Std Deviation 48.9 H RDW Coeff of Jun 15.7 H Plt Count 202 MPV 10.3 Immature Gran % (Auto) 0.5 Neut % (Auto) 57.7 Lymph % (Auto) 27.4 Cobb % (Auto) 10.9 Eos % (Auto) 3.2 Baso % (Auto) 0.3 Neut # (Auto) 4.97 Lymph # (Auto) 2.36 Cobb # (Auto) 0.94 H Eos # (Auto) 0.28 Baso # (Auto) 0.03 Immature Gran # (Auto) 0.04 H Sodium 135 L Potassium 3.1 L Chloride 102 Carbon Dioxide 23 Anion Gap 10 BUN 27 H Creatinine 2.23 H D Est Cr Clr Drug Dosing 26.7 Est GFR ( Amer) 26.5 Est GFR (Non-Af Amer) 22.9 BUN/Creatinine Ratio 12.1 Glucose 137 H POC Glucose 141 H Calcium 8.2 L Magnesium 1.8 Total Bilirubin 0.5 AST 21 ALT 14 Alkaline Phosphatase 80 Total Protein 6.4 Albumin 3.2 L Globulin 3.2 Albumin/Globulin Ratio 1.0 Cryptococcus Source Cryptococcal Ag (Latex) 03/08/22 11:22 WBC RBC Hgb Hct MCV MCH MCHC RDW Std Deviation RDW Coeff of Jun Plt Count MPV Immature Gran % (Auto) Neut % (Auto) Lymph % (Auto) Cobb % (Auto) Eos % (Auto) Baso % (Auto) Neut # (Auto) Lymph # (Auto) Cobb # (Auto) Eos # (Auto) Baso # (Auto) Immature Gran # (Auto) Sodium Potassium Chloride Carbon Dioxide Anion Gap BUN Creatinine Est Cr Clr Drug Dosing Est GFR ( Amer) Est GFR (Non-Af Amer) BUN/Creatinine Ratio Glucose POC Glucose 277 H Calcium Magnesium Total Bilirubin AST ALT Alkaline Phosphatase Total Protein Albumin Globulin Albumin/Globulin Ratio Cryptococcus Source Cryptococcal Ag (Latex) Diagnostic Findings Echocardiogram obtained 03/07/2022: Normal LV systolic function. Mild mitral regurgitation. PG Care Time/CCT Total # of Minutes Spent Total Time Spent with Patient: Total time spent is greater than 50% in coordination of care (as documented) at patient's floor/unit and/or counseling patient: Coding Level of Care Code 36234 Inpt Consult Level 4 Diagnoses Atrial fibrillation I48.91 Mitral regurgitation I34.0
[2022-03-08] MEDS: ACETAMINOPHEN 325 MG TAB PO PRN (20:06)
[2022-03-08] MEDS: ASPIRIN 81 MG ECTAB PO SCH (20:43)
[2022-03-08] MEDS: VENLAFAXINE HCL XR 150 MG CAPXR PO SCH (20:44)
[2022-03-08] MEDS: MIRTAZAPINE TAB 15 MG TAB PO SCH (20:44)
[2022-03-08] MEDS: DEXTROSE 5% IV SCH (20:49)
[2022-03-08] MEDS: AMBISOME IV SCH (20:49)
[2022-03-08] MEDS ORDERED: HEPARIN SOD 5,000 UNIT/0.5 ML VIAL SQ SCH (21:00)
[2022-03-08] MEDS ORDERED: ACETAMINOPHEN 325 MG TAB PO ONE (23:54)
[2022-03-09 08:04] LABS: Basophils # (auto) 0.04 K/uL (0-0.2); Basophils % (auto) 0.5 %; Eosinophils # (auto) 0.23 K/uL (0-0.5); Eosinophils % (auto) 2.7 %; Hematocrit (blood only) 29.6 % (37-47); Hemoglobin 9.6 g/dL (12.0-16.0); Immature Granulocytes # (auto) 0.04 K/uL (0.00-0.02); Immature Granulocytes % (auto) 0.5 %; Lymphocytes # (auto) 1.84 K/uL (1.2-3.4); Lymphocytes % (auto) 21.8 %; Mean Corpuscular Hemoglobin 27.6 pg (25-34); Mean Corpuscular Hgb Conc 32.4 g/dL (32-36); Mean Corpuscular Volume 85.1 fL (80-100); Mean Platelet Volume 9.6 fL (7.4-10.4); Monocytes # (auto) 0.87 K/uL (0.11-0.59); Monocytes % (auto) 10.3 %; Neutrophils # (auto) 5.42 K/uL (1.4-6.5); Neutrophils % (auto) 64.2 %; Platelet Count 218 K/uL (130-400); RDW Coefficient of Variation 15.7 % (11.5-14.5); RDW Standard Deviation 48.7 fL (36.4-46.3); Red Blood Count 3.48 M/uL (4.2-5.4); White Blood Count 8.44 K/uL (4.8-10.8)
[2022-03-09 08:37] LABS: Albumin Level 3.4 gm/dl (3.4-5.0); BUN Creatinine Ratio 12.2 (10-20); Bilirubin,Total 0.5 mg/dl (0.2-1.0); Creatinine Clr Calc Pharmacy 22.5 ml/min; Est GFR (Non-African American) 18.2 ml/min; Globulin 3.3 gm/dl (2.5-4.0); Magnesium 1.8 mg/dl (1.7-2.4); Potassium 3.4 mmol/L (3.5-5.1); Total Protein 6.7 gm/dl (6.0-8.3)
--- NOTE | 2022-03-09 08:42 | Hospitalist Progress Note ---
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 Risk factors include cirrhosis and DM2, HIV negative. Repeat CSF showing decreased WBCs -CT head, MRI brain negative for acute findings, no hydrocephalus noted -Continue amphotericin B and flucytosine for 2 weeks total therapy (03/02 to 03/16) per ID, will need prophylactic fluconazole for 12+ months afterward -Repeat therapeutic LP if worsening neurologic symptoms/concern for ICP -Neurology consult -Consider repeat LP later this week to assess CSF/ICP for improvement -Trend CBC, BMP ALBINA -Cr 1.03 to 2.23 to 2.70 today -Suspect this is secondary to amphotericin/flucytosine nephrotoxicity -Will discuss with pharmacy about renal dosing of her medications vs alternative medication choice, will try to contact ID as well -Continue mIVF- NSS w/ KCl, also encourage oral hydration New onset atrial flutter with rapid ventricular response (resolved) -03/07- patient went into atrial flutter w/ RVR 130s-140s, was given metoprolol with appropriate rate control reached later in PM -Echo 03/07 wnl -Spontaneously converted to NSR on 03/08, rate controlled and sinus since. Likely underlying PAF triggered by acute illness phase -CHADSVASC score of 4- deferring anticoagulation at this time due to possible need for future therapeutic lumbar punctures -Cardiology consulted -Continue to monitor on telemetry -Consider outpatient sleep study due to concern for LOURDES -Recommend deferring DOAC until meningitis resolves and no need for lumbar puncture Nausea, intermittent -Unlikely to be due to increased ICP as it is intermittent and spontaneously resolves, pt able to eat and drink well -Zofran PRN Hypokalemia -K 3.1 to 3.4 today s/p repletion -Continue mIVF with 20 meq KCl -Trend BMP Anxiety and depression -Continue home venlafaxine and mirtazapine Hypertension -Holding lisinoprilhydrochlorothiazide due to ALBINA -BPs soft ~100/50, stable at present History of TOLENTINO, cirrhosis -CTAP on admission demonstrating cirrhosis -Normal LFTs on admission and no signs of liver failure -Continue to monitor as above with CMP DM2 -Continue basal and sliding scale -glucose goal 140 to 180 HLD -allergic to statin -follow up with primary care regarding treatment DVT PROPHYLAXIS- Deferring anticoagulation due to potential need for lumbar puncture. SCDs FEN/GI-heart healthy diet CODE: Full Code Disposition: PCU (2) Hypertension: (3) Depression: (4) Diabetes mellitus type 2, uncontrolled, without complications: (5) Dyslipidemia: Admission and Anticipated Discharge Date Admission Date: March 01, 2022 Supervising Physician Co-Signing Physician Notes Attending attestation Pt seen and examined in concert with Dr. Shah. In agreement with the documented findings as noted in the resident documentation with any exceptions or additions as noted here. Mild headache overnight with resolution with APAP, mild nausea which spontaneously resolved with water first thing in the morning. VS noted. On examination, S1/S2 nl RRR no MCG. CTAB. Abd NT/ND BS+ve, CNII-XII grossly intact as noted Cryptococcal meningitis - continue amphotericin B with renal adjustment and flucytosine (day05/09). Monitor CBC Borderline hypotension - escalating IVF to 200cc/hr and monitor for ALBINA and BP ALBINA - IVF, monitor BMP. Review medication choice with ID for potential alternatives. AF w/ RVR, paroxysmal - deferring AC 2/2 may need LP urgently but would benefit from same. Else see resident documentation as noted. Subjective Per telemetry, pt remained in sinus rhythm all night. Overnight, she had a minor headache which improved with Tylenol. On evaluation, pt states she has no headache at present and her photosensitivity has improved. Denies palpitations or lightheadedness. Had some nausea earlier this morning which resolved spontaneously. Still urinating adequately, denies any dyspnea or bloating.. Review of Systems Constitutional: as per Subjective / HPI Physical Exam Constitutional: WD/WN, vitals as above cooperative and comfortable Eyes: PERRL, conjunctivae normal, anicteric sclerae ENMT: external ear and nose normal, oropharynx normal Neck: trachea midline, no thyromegaly normal visual inspection Respiratory: normal respiratory effort, lungs clear to auscultation normal respiratory effort Cardiovascular: RRR, no murmur, no edema Rate/Rhythm: regular rate and regular rhythm Heart Sounds: normal S1 and normal S2 Vessels: no JVD Gastrointestinal (Abdomen): normal bowel sounds, soft, nontender, no hepatosplenomegaly Inspection/Auscultation: normal bowel sounds Percussion/Palpation: abdomen soft; abdomen nontender Musculoskeletal: Head/Neck/Chest: normocephalic and head atraumatic Skin: no rashes, warm and dry Neurologic: PERRL, EOMI, accommodation nl, no face palsy, no dysarthria moves all extremities Motor/Sensory: normal movement and no sensory deficit (reflexes 1+, 5/5 strength in all extremities) Psychiatric: A+Ox3, euthymic affect Orientation: alert and oriented x 3 Results & Data Results & Data ([facility]) Vital Signs (Past 12 Hours) Vital Signs Temp Pulse Pulse Resp BP Pulse Ox 03/09/22 08:18 72 03/09/22 04:05 37.2 C 71 18 100/57 L 92 03/08/22 23:47 80 03/08/22 23:42 36.5 C 76 18 112/68 91 Resident Activity Tracking Resident Involvement: Resident Care Provided Care Provided: Adult Hospital Medicine (1) Depression Depression Type: unspecified Qualified Code(s): F32.9 - Major depressive disorder, single episode, unspecified (2) Hypertension Hypertension type: essential hypertension Qualified Code(s): I10 - Essential (primary) hypertension
[2022-03-09] MEDS: FLUCYTOSINE 500 MG CAP PO SCH ×2 (09:13→21:15)
[2022-03-09] MEDS: PANTOprazole 40 MG TAB PO SCH (09:13)
[2022-03-09] MEDS: INSULIN GLARGINE SOLOSTAR 100 UNITS/ML 3 ML PEN SC SCH (09:31)
[2022-03-09] MEDS: INSULIN ASPART PER UNIT SC SCH ×4 (09:31→20:56)
[2022-03-09] MEDS: NSS + 20MEQ KCL 20 MEQ/1,000 ML BAG IV SCH ×2 (10:00→15:05)
[2022-03-09 13:57] LABS: BUN Creatinine Ratio 12.4 (10-20); Calcium 7.6 mg/dl (8.5-10.1); Creatinine Clr Calc Pharmacy 23.4 ml/min; Est GFR (African American) 22.1 ml/min; Est GFR (Non-African American) 19.1 ml/min; Potassium 3.3 mmol/L (3.5-5.1)
[2022-03-09] MEDS: ASPIRIN 81 MG ECTAB PO SCH (20:44)
[2022-03-09] MEDS: MIRTAZAPINE TAB 15 MG TAB PO SCH (20:44)
[2022-03-09] MEDS: VENLAFAXINE HCL XR 150 MG CAPXR PO SCH (20:44)
[2022-03-09] MEDS: DEXTROSE 5% IV SCH (20:45)
[2022-03-09] MEDS: AMBISOME IV SCH (20:45)
[2022-03-09] MEDS: ACETAMINOPHEN 325 MG TAB PO PRN (22:11)
[2022-03-09] MEDS: BENZONATATE 100 MG CAPSULE PO PRN (22:12)
[2022-03-10] MEDS: ONDANSETRON INJ 2 MG/ML 2 ML VIAL IV PRN ×3 (04:52→21:39)
[2022-03-10 07:42] LABS: Basophils # (auto) 0.03 K/uL (0-0.2); Basophils % (auto) 0.5 %; Eosinophils # (auto) 0.17 K/uL (0-0.5); Eosinophils % (auto) 2.7 %; Hematocrit (blood only) 26.6 % (37-47); Hemoglobin 8.7 g/dL (12.0-16.0); Immature Granulocytes # (auto) 0.03 K/uL (0.00-0.02); Immature Granulocytes % (auto) 0.5 %; Lymphocytes # (auto) 1.33 K/uL (1.2-3.4); Lymphocytes % (auto) 20.9 %; Mean Corpuscular Hemoglobin 28.1 pg (25-34); Mean Corpuscular Hgb Conc 32.7 g/dL (32-36); Mean Corpuscular Volume 85.8 fL (80-100); Mean Platelet Volume 9.8 fL (7.4-10.4); Monocytes # (auto) 0.56 K/uL (0.11-0.59); Monocytes % (auto) 8.8 %; Neutrophils # (auto) 4.24 K/uL (1.4-6.5); Neutrophils % (auto) 66.6 %; Platelet Count 203 K/uL (130-400); RDW Coefficient of Variation 15.5 % (11.5-14.5); RDW Standard Deviation 48.2 fL (36.4-46.3); White Blood Count 6.36 K/uL (4.8-10.8)
[2022-03-10 07:51] LABS: Albumin Level 2.9 gm/dl (3.4-5.0); BUN Creatinine Ratio 13.3 (10-20); Bilirubin,Total 0.4 mg/dl (0.2-1.0); Calcium 7.7 mg/dl (8.5-10.1); Creatinine Clr Calc Pharmacy 28.7 ml/min; Est GFR (African American) 28.4 ml/min; Est GFR (Non-African American) 24.5 ml/min; Magnesium 1.5 mg/dl (1.7-2.4); Potassium 3.4 mmol/L (3.5-5.1); Total Protein 5.9 gm/dl (6.0-8.3)
--- NOTE | 2022-03-10 08:02 | Hospitalist Progress Note ---
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 Risk factors include cirrhosis and DM2, HIV negative. Repeat CSF showing decreased WBCs -CT head, MRI brain negative for acute findings, no hydrocephalus noted -Appears to be improving based on symptoms -Continue amphotericin B and flucytosine for 2 weeks total therapy (03/02 to 03/16) per ID, will need prophylactic fluconazole for 12+ months afterward -Repeat therapeutic LP if worsening neurologic symptoms/concern for ICP -May repeat LP today given persistent nausea -Neurology consult -Consider repeat LP later this week to assess CSF/ICP for improvement -Trend CBC, BMP Nausea -May be due to increased ICP due to persistence and 1x emesis -Zofran PRN -Lower suspicion of GI bleed, FOBT ordered as above -Protonix 40 mg increased to BID -Continue to monitor, may repeat LP as above ALBINA -Cr 2.7 to 2.1 today, improving -Suspect this is secondary to amphotericin/flucytosine nephrotoxicity -Discussed renal dosing of her medications with pharmacy -Awaiting recommendations from ID -Flucytosine adjusted to q12 from q6 per pharmacy -Continue mIVF- NSS w/ KCl, also encourage oral hydration -Reducing rate to 100cc/hr to avoid worsening nausea Anemia -Hgb 9.6 to 8.7 today, baseline appears 10-11 -Normocytic anemia- may be due to lab variation, multiple blood draws -No known sources of bleeding at this time and hemodynamically stable -FOBT ordered, will obtain later today -Pursue further workup- iron studies, B12, folate if persistent or worsening -Trend CBC New onset atrial flutter with rapid ventricular response (resolved) -03/07- patient went into atrial flutter w/ RVR 130s-140s, was given metoprolol with appropriate rate control reached later in PM -Echo 03/07 wnl -Spontaneously converted to NSR on 03/08, rate controlled and sinus since. Likely underlying PAF triggered by acute illness phase -CHADSVASC score of 4- deferring anticoagulation at this time due to possible need for future therapeutic lumbar punctures -Cardiology recommendations: -Continue to monitor on telemetry -Consider outpatient sleep study due to concern for LOURDES -Recommend deferring DOAC until meningitis resolves and no need for lumbar puncture Hypokalemia -K 3.4, stable from day prior -Continue mIVF with 20 meq KCl -Trend BMP Hypomagnesemia -Mg 1.5 today, repleting -Trend Mg Anxiety and depression -Continue home venlafaxine and mirtazapine Hypertension -Holding lisinoprilhydrochlorothiazide due to ALBINA -BPs stable around ~100/50 History of TOLENTINO, cirrhosis -CTAP on admission demonstrating cirrhosis -Normal LFTs on admission and no signs of liver failure -Continue to monitor as above with CMP DM2 -Continue basal and sliding scale -glucose goal 140 to 180 HLD -allergic to statin -follow up with primary care regarding treatment DVT PROPHYLAXIS- Deferring anticoagulation due to potential need for lumbar puncture. SCDs FEN/GI-heart healthy diet CODE: Full Code Disposition: PCU (2) Hypertension: (3) Depression: (4) Diabetes mellitus type 2, uncontrolled, without complications: (5) Dyslipidemia: Admission and Anticipated Discharge Date Admission Date: March 01, 2022 Supervising Physician Co-Signing Physician Notes Attending attestation Pt seen and examined in concert with Dr. Shah. In agreement with the documented findings as noted in the resident documentation with any exceptions or additions as noted here. New onset significant nausea with vomiting this AM which partially resolved with 4mg of ondansetron and significantly improved with 8mg without recurrence as of early afternoon VS noted. On examination, S1/S2 nl RRR no MCG. CTAB. Abd NT/ND BS+ve, CNII-XII grossly intact as noted. Slightly more pallor and malaise apparent in examination Cryptococcal meningitis - continue amphotericin B and flucytosine (day914). Monitor CBC and BMP for further impact, though BMP did improve with IVF. Low threshold to repeat LP with worsening lethargy or nausea or FLOWERS Borderline hypotension - taper IVF to 100cc/hr and monitor for ALBINA and BP ALBINA - improved today on IVF, monitor BMP. AF w/ RVR, paroxysmal - deferring AC 2/2 may need LP urgently but would benefit from same. Else see resident documentation as noted. Subjective Per telemetry, pt remained in sinus rhythm overnight. On evaluation, pt states she has no headache at present and her photosensitivity has improved. Denies palpitations or lightheadedness. Does report some mild nausea which responds well to Zofran, denies abdominal pain and still able to eat and drink without issue. Nausea occurs intermittently throughout day, denies diarrhea or constipation- BMs are regular in frequency and consistency. No fevers or chills. Still urinating adequately, denies dyspnea or bloating. On reevaluation during rounds, pt continued to endorse nausea and also reported 1 episode of dark brown emesis since earlier evaluation. Received Zofran afterward and felt better. Still denying headache, dyspnea, lightheadedness. Review of Systems Constitutional: as per Subjective / HPI Physical Exam Constitutional: WD/WN, vitals as above cooperative and comfortable Eyes: PERRL, conjunctivae normal, anicteric sclerae Neck: normal visual inspection Respiratory: normal respiratory effort, lungs clear to auscultation Cardiovascular: RRR, no murmur, no edema Heart Sounds: normal S1 and normal S2 Vessels: no JVD Gastrointestinal (Abdomen): Inspection/Auscultation: abdomen not distended Percussion/Palpation: abdomen soft; abdomen nontender Musculoskeletal: Head/Neck/Chest: normocephalic and head atraumatic Skin: no rashes, warm and dry Neurologic: PERRL, EOMI, accommodation nl, no face palsy, no dysarthria moves all extremities Motor/Sensory: normal movement and no sensory deficit (reflexes 1+, 5/5 strength in all extremities) Psychiatric: A+Ox3, euthymic affect Results & Data Results & Data ([facility]) Vital Signs (Past 12 Hours) Vital Signs Temp Pulse Pulse Resp BP BP Pulse Ox 03/10/22 07:32 36.7 C 83 19 105/65 94 03/10/22 04:34 36.8 C 77 16 103/64 92 03/09/22 23:06 84 03/09/22 22:30 37.1 C 83 16 119/69 92 Resident Activity Tracking Resident Involvement: Resident Care Provided Care Provided: Adult Hospital Medicine (1) Depression Depression Type: unspecified Qualified Code(s): F32.9 - Major depressive disorder, single episode, unspecified (2) Hypertension Hypertension type: essential hypertension Qualified Code(s): I10 - Essential (primary) hypertension
[2022-03-10] MEDS: INSULIN ASPART PER UNIT SC SCH ×4 (08:41→21:40)
[2022-03-10] MEDS: INSULIN GLARGINE SOLOSTAR 100 UNITS/ML 3 ML PEN SC SCH (08:42)
[2022-03-10] MEDS: PANTOprazole 40 MG TAB PO SCH (08:43)
[2022-03-10] MEDS: MAGNESIUM SULFATE / D5W 1 GM/100 ML BAG IV SCH ×2 (08:44→10:37)
[2022-03-10] MEDS: FLUCYTOSINE 500 MG CAP PO SCH ×2 (09:04→22:30)
[2022-03-10] MEDS: NSS + 20MEQ KCL 20 MEQ/1,000 ML BAG IV SCH ×2 (09:04→17:49)
--- NOTE | 2022-03-10 11:50 | Pharmacy Report ---
Pharmacy Glycemic Short Note 2 - Date of Service March 10, 2022 - Glycemic Short BSG Results (Last 24 hours): 03/09/22 03/09/22 03/09/22 13:02 16:09 20:44 Glucose 297 H POC Glucose 155 H 120 H 03/10/22 03/10/22 03/10/22 07:12 08:03 11:20 Glucose 141 H POC Glucose 150 H 167 H OUTPATIENT ANTIDIABETIC REGIMEN: * Toujeo 68 units QPM * Novolog CF 30, CR 2 * A1c 9.4% 12/18/21 ASSESSMENT: 03/10/22 * Patient's BSGs yesterday were 142-194-006-120 mg/dL. * Patient received 38 units of insulin yesterday (20 units of basal and 18 units of bolus). * Novolog CR was tightened today. BSGs are 150-167 mg/dL. * Continue Lantus as fastings within goal range. Continue tightened Novolog. 03/08/22 * Patient's BSGs yesterday were [phone] mg/dL. Patient's BSGs today are 141-277 mg/dL. * Patient received 34 units of insulin yesterday (20 units of basal and 14 units of bolus). * Patient has developed an ALBINA with a doubling of serum creatinine. * Continue Lantus for now but will watch for accumulation. * Tighten CR since BSGs trend upwards after inrange values. Lunch BSG of 277 mg/dL is not a typical BSG for patient so will not tighten CR at lunch any further. 03/05 * Blood sugars at goal, on the lower end, no hypoglycemia, loosen CR today. * Consider decreasing Lantus 10-20% if continuing lower. 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 * Will continue to tighten novolog parameters as needed PLAN FOR INPATIENT GLYCEMIC CONTROL: * Basal insulin * Lantus 20 units qAM * Bolus insulin * NovoLog per scale ACHS or Q6hrs while NPO * Goal Range: Low 110 mg/dL - High 140 mg/dL * Correction Factor: 25 mg/dL/unit * Nutritional / Prandial insulin per carb ratio of 1 unit per 5 grams CHO consumed
[2022-03-10] MEDS: BENZONATATE 100 MG CAPSULE PO PRN (21:39)
[2022-03-10] MEDS: VENLAFAXINE HCL XR 150 MG CAPXR PO SCH (21:40)
[2022-03-10] MEDS: PANTOprazole 40 MG in SYRINGE 0 ML IV SCH (21:40)
[2022-03-10] MEDS: MIRTAZAPINE TAB 15 MG TAB PO SCH (21:40)
[2022-03-10] MEDS: ASPIRIN 81 MG ECTAB PO SCH (21:40)
[2022-03-10] MEDS: AMBISOME IV SCH (22:30)
[2022-03-10] MEDS: DEXTROSE 5% IV SCH (22:30)
[2022-03-11 07:12] LABS: Hematocrit (blood only) 25.7 % (37-47); Hemoglobin 8.7 g/dL (12.0-16.0); Mean Corpuscular Hemoglobin 29.2 pg (25-34); Mean Corpuscular Hgb Conc 33.9 g/dL (32-36); Mean Corpuscular Volume 86.2 fL (80-100); Mean Platelet Volume 9.6 fL (7.4-10.4); Platelet Count 213 K/uL (130-400); RDW Coefficient of Variation 15.9 % (11.5-14.5); RDW Standard Deviation 49.7 fL (36.4-46.3); Red Blood Count 2.98 M/uL (4.2-5.4); White Blood Count 7.11 K/uL (4.8-10.8)
[2022-03-11 07:28] LABS: BUN Creatinine Ratio 13.1 (10-20); Bilirubin,Total 0.5 mg/dl (0.2-1.0); Calcium 7.9 mg/dl (8.5-10.1); Creatinine Clr Calc Pharmacy 30.9 ml/min; Est GFR (African American) 30.4 ml/min; Est GFR (Non-African American) 26.3 ml/min; Globulin 2.9 gm/dl (2.5-4.0); Magnesium 1.7 mg/dl (1.7-2.4); Potassium 3.3 mmol/L (3.5-5.1); Total Protein 5.9 gm/dl (6.0-8.3)
[2022-03-11 08:02] LABS: Basophils # (auto) 0.03 K/uL (0-0.2); Basophils % (auto) 0.4 %; Eosinophils % (auto) 2.8 %; Immature Granulocytes # (auto) 0.02 K/uL (0.00-0.02); Immature Granulocytes % (auto) 0.3 %; Lymphocytes # (auto) 1.47 K/uL (1.2-3.4); Lymphocytes % (auto) 20.7 %; Monocytes # (auto) 0.66 K/uL (0.11-0.59); Monocytes % (auto) 9.3 %; Neutrophils # (auto) 4.73 K/uL (1.4-6.5); Neutrophils % (auto) 66.5 %
[2022-03-11] MEDS: PANTOprazole 40 MG in SYRINGE 0 ML IV SCH ×2 (09:08→22:47)
[2022-03-11] MEDS: INSULIN ASPART PER UNIT SC SCH ×4 (09:09→22:54)
[2022-03-11] MEDS: INSULIN GLARGINE SOLOSTAR 100 UNITS/ML 3 ML PEN SC SCH ×2 (09:11→23:10)
[2022-03-11] MEDS: ONDANSETRON INJ 2 MG/ML 2 ML VIAL IV PRN ×2 (09:12→19:57)
[2022-03-11] MEDS: ACETAMINOPHEN 325 MG TAB PO PRN (09:25)
--- NOTE | 2022-03-11 09:29 | Hospitalist Progress Note ---
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 Risk factors include cirrhosis and DM2, HIV negative. Repeat CSF showed decreased WBCs -CT head, MRI brain negative for acute findings, no hydrocephalus noted -Continue amphotericin B and flucytosine for 2 weeks total therapy (03/02 to 03/16) per ID, will need prophylactic fluconazole for 12+ months afterward -Appears to be improving based on resolution of headaches, but will repeat LP today given multiple episodes of nausea over past few days -Will repeat CSF studies + opening pressure to assess improvement/interval change -Trend CBC, BMP Acute blood loss anemia -Hgb 9.6 to 8.7 on 03/10, Hgb stable at 8.7 today, baseline appears 10-11 -Hemodynamically stable at this time -FOBT+ on 03/11, suspect potential UGIB -Continue IV fluids- NSS w/ KCl -Continue Protonix 40 mg IV BID -Trend CBC Nausea -Most likely secondary to possible GI bleed though increased ICP cannot be excluded -Zofran 8 mg PRN q6h -Repeat LP as above planned for today ALBINA -Cr 2.1 to 2.0 today, stable -Suspect this is secondary to amphotericin/flucytosine nephrotoxicity -Discussed renal dosing of her medications with pharmacy -Awaiting recommendations from ID -Flucytosine adjusted to q12 from q6 per pharmacy -Continue IVF- NSS w/ KCl, also encourage oral hydration Hypokalemia -K 3.4 to 3.3 today -Continue KCl 40 meq PO daily -Trend BMP New onset atrial flutter with rapid ventricular response (resolved) -03/07- patient went into atrial flutter w/ RVR 130s-140s, was given metoprolol with appropriate rate control reached later in PM -Echo 03/07 wnl -Spontaneously converted to NSR on 03/08, rate controlled and sinus since. Likely underlying PAF triggered by acute illness phase -CHADSVASC score of 4- deferring anticoagulation at this time due to possible need for future therapeutic lumbar punctures -Cardiology recommendations: -Continue to monitor on telemetry -Consider outpatient sleep study due to concern for LOURDES -Recommend deferring DOAC until meningitis resolves and no need for lumbar puncture Hypomagnesemia -Mg 1.5 on day prior repleted, 1.7 today -Trend Mg Anxiety and depression -Continue home venlafaxine and mirtazapine Hypertension -Holding lisinoprilhydrochlorothiazide due to ALBINA -BPs stable around ~100/50 History of TOLENTINO, cirrhosis -CTAP on admission demonstrating cirrhosis -Normal LFTs on admission and no signs of liver failure -Continue to monitor as above with CMP DM2 -Continue basal and sliding scale -glucose goal 140 to 180 HLD -allergic to statin -follow up with primary care regarding treatment DVT PROPHYLAXIS- Deferring anticoagulation due to potential need for lumbar puncture. SCDs FEN/GI-heart healthy diet CODE: Full Code Disposition: PCU (2) Hypertension: (3) Depression: (4) Diabetes mellitus type 2, uncontrolled, without complications: (5) Dyslipidemia: Admission and Anticipated Discharge Date Admission Date: March 01, 2022 Supervising Physician Co-Signing Physician Notes Attending attestation Pt seen and examined in concert with Dr. Shah. In agreement with the documented findings as noted in the resident documentation with any exceptions or additions as noted here. Continued AM nausea which resolves with ondansetron by early/midmorning. Ongoing malaise without FLOWERS, minimal photophobia. VS noted. On examination, S1/S2 nl RRR no MCG. CTAB. Abd NT/ND BS+ve, CNII-XII grossly intact. Cryptococcal meningitis - neurology consult - continue amphotericin B and flucytosine (day10/14). Trend CBC and BMP. For repeat LP in AM. If any decompensation or recurrent/worsening FLOWERS, strongly consider transfer to tertiary facility Decreased HGB in the setting of waxing/waning nausea, +ve FOBT - concerning for GIB - PPI BID, consider endoscopy/GI consultation if symptoms significantly worsen. Transfuse at 7, consider at 8 based on clinical presentation and intracranial infection. Borderline hypotension - improved with IVF, will continue 2/2 diminished POI ALBIAN - continues to improve on IVF, monitor BMP. AF w/ RVR, paroxysmal - deferring AC 2/2 may need procedures urgently but would benefit from same. Consider addition of beta narendra if BP, hgb stable. Else see resident documentation as noted. Subjective No acute events overnight. Did have some nausea last night for which she got Zofran 8 mg and felt better. Denies any current headache or photosensitivity, feels much better than day prior. Denying nausea at this time. Still urinating adequately, denies dyspnea or bloating. Denies abdominal pain, fever, chills. Review of Systems Constitutional: as per Subjective / HPI Physical Exam Constitutional: WD/WN, vitals as above cooperative and comfortable Eyes: PERRL, conjunctivae normal, anicteric sclerae Neck: normal visual inspection Respiratory: normal respiratory effort, lungs clear to auscultation Cardiovascular: RRR, no murmur, no edema Heart Sounds: normal S1 and normal S2 Vessels: no JVD Gastrointestinal (Abdomen): Inspection/Auscultation: abdomen not distended Percussion/Palpation: abdomen soft; abdomen nontender Musculoskeletal: Head/Neck/Chest: normocephalic and head atraumatic Skin: no rashes, warm and dry Neurologic: PERRL, EOMI, accommodation nl, no face palsy, no dysarthria moves all extremities Motor/Sensory: normal movement and no sensory deficit (reflexes 1+, 5/5 strength in all extremities) Psychiatric: A+Ox3, euthymic affect Results & Data Results & Data ([facility]) Vital Signs (Past 12 Hours) Vital Signs Temp Pulse Pulse Resp BP BP Pulse Ox 03/11/22 07:08 36.8 C 75 20 111/63 94 03/11/22 03:27 36.6 C 80 18 112/65 94 03/10/22 23:59 36.8 C 81 18 110/58 L 94 03/10/22 23:55 80 Resident Activity Tracking Resident Involvement: Resident Care Provided Care Provided: Adult Hospital Medicine (1) Depression Depression Type: unspecified Qualified Code(s): F32.9 - Major depressive disorder, single episode, unspecified (2) Hypertension Hypertension type: essential hypertension Qualified Code(s): I10 - Essential (primary) hypertension
[2022-03-11] MEDS: FLUCYTOSINE 500 MG CAP PO SCH ×2 (09:58→22:47)
[2022-03-11] MEDS: NSS + 20MEQ KCL 20 MEQ/1,000 ML BAG IV SCH ×2 (12:39→19:31)
--- NOTE | 2022-03-11 14:56 | Pharmacy Report ---
Pharmacy Glycemic Short Note 2 - Date of Service March 11, 2022 - Glycemic Short BSG Results (Last 24 hours): 03/10/22 03/10/22 03/11/22 16:08 20:25 06:36 Glucose 117 H POC Glucose 144 H 152 H 03/11/22 03/11/22 07:05 11:16 Glucose POC Glucose 110 H 159 H OUTPATIENT ANTIDIABETIC REGIMEN: * Toujeo 68 units QPM * Novolog CF 30, CR 2 * A1c 9.4% 12/18/21 ASSESSMENT: 03/11/22 * Patient received total of 27 units of insulin yesterday, of which 20 units were basal. BSGs well controlled * Fasting BSG 110 mg/dL - patient refused AM basal as no PO intake and very nauseous per RN * BSGs stable at lunch time, plan to add small basal scale for HS for decreased PO intake 03/10/22 * Patient's BSGs yesterday were [phone] mg/dL. * Patient received 38 units of insulin yesterday (20 units of basal and 18 units of bolus). * Novolog CR was tightened today. BSGs are 150-167 mg/dL. * Continue Lantus as fastings within goal range. Continue tightened Novolog. 03/08/22 * Patient's BSGs yesterday were [phone] mg/dL. Patient's BSGs today are 141-277 mg/dL. * Patient received 34 units of insulin yesterday (20 units of basal and 14 units of bolus). * Patient has developed an ALBINA with a doubling of serum creatinine. * Continue Lantus for now but will watch for accumulation. * Tighten CR since BSGs trend upwards after inrange values. Lunch BSG of 277 mg/dL is not a typical BSG for patient so will not tighten CR at lunch any further. 03/05 * Blood sugars at goal, on the lower end, no hypoglycemia, loosen CR today. * Consider decreasing Lantus 10-20% if continuing lower. 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 * Will continue to tighten novolog parameters as needed PLAN FOR INPATIENT GLYCEMIC CONTROL: * Basal insulin * Lantus 0-15 units hs based upon BSG value * Bolus insulin * NovoLog per scale ACHS or Q6hrs while NPO * Goal Range: Low 110 mg/dL - High 140 mg/dL * Correction Factor: 25 mg/dL/unit * Nutritional / Prandial insulin per carb ratio of 1 unit per 5 grams CHO consumed
[2022-03-11] MEDS: AMBISOME IV SCH (20:44)
[2022-03-11] MEDS: DEXTROSE 5% IV SCH (20:44)
[2022-03-11] MEDS ORDERED: PROMETHAZINE HCL 6.25 MG in SODIUM CHLORIDE 0.9% 50 ML IV STA (22:05)
[2022-03-11] MEDS ORDERED: METOCLOPRAMIDE HCL INJ 5 MG/ML 2 ML VIAL IV ONE (22:09)
[2022-03-11] MEDS: MIRTAZAPINE TAB 15 MG TAB PO SCH (22:36)
[2022-03-11] MEDS: ASPIRIN 81 MG ECTAB PO SCH (22:36)
[2022-03-11] MEDS: VENLAFAXINE HCL XR 150 MG CAPXR PO SCH (22:37)
--- NOTE | 2022-03-11 23:30 | Communication Note ---
Date of Service: March 11, 2022 Received message from Rn stating patient had nausea refractory to Zofran treatment. In the setting of her cryptococcal meningitis this was concerning for potential neurologic worsening. We evaluated patient at bedside and she was complaining of nausea and lower abdominal pain with related diarrhea. States she has had between 5-10 BMs today and all have been loose and watery. She denies current FLOWERS, dizziness, numbness, weakness. Does endorse some tingling in her fingers bilaterally but says this is usual for her. Shortly after, received message from RN stating that patient developed cramps in the lower extremities bilaterally. A few minutes thereafter, RN relayed that patient had 11 beat run of V. tach on monitor. GENERAL: A&Ox3. Ill-appearing. HEENT: PERRL, EOMI. No papilledema on funduscopic examination. Moist mucous membranes. NECK: No JVD. No lymphadenopathy. Neck supple without nuchal rigidity/stiffness. ABDOMEN: NT/ND, soft. BS+ x4 EXTREMITIES: No cyanosis, no clubbing, no edema SKIN: Warm and dry. No rashes or lesions. PSYCHIATRIC: Euthymic affect, no SI, no pressured speech, no hallucinations NEUROLOGIC: The patient has 5/5 strength x4 extremities. Sensation intact. CN II-XII grossly intact. Nausea, vomiting, abd pain Her current complaint seems more likely GI in nature than neurologic. Consistently denying FLOWERS and mostly lower abd pain with nausea. - Gave a dose of Reglan - KUB ordered -- did not show any obvious abnormalities; if anything there is diminished bowel gas on KUB but could be due to imaging quality - CT abd ordered -- given IVF bolus prior due to ALBINA, though was within limits for contrast administration - [employer] read: When compared to the examination 03/02/2022, there is interval development of mild free fluid in the abdomen and pelvis. No loculation. No bowel obstruction. There is more prominent mucosal thickening of the colon. Differential consideration includes cirrhotic colopathy; however, colitis is also a strong consideration. No pneumatosis or pneumoperitoneum. Irregular contours to the liver are again noted consistent with cirrhosis. A small recanalized paraumbilical vein is noted. There is interval development of layering bilateral pleural effusions. No loculation. The effusions measure up to 2.5 cm posterior medially. Presumed compressive subsegmental atelectasis in the posterior lung bases. Cholecystectomy. The pancreas, spleen, adrenal glands and kidneys demonstrate no significant acute abnormality. Stable nonobstructive subcentimeter nephrolithiasis in the superior pole of the left kidney and inferior pole of the right kidney. The bladder is unremarkable. Status post hysterectomy. No acute osseous abnormality. Subcutaneous edema now suggested in the overlying soft tissues suggesting positive fluid status. - Stool PCR and C. diff test ordered - Continue to monitor Vtach, BLE cramps - EKG showing ventricular rate of 166 with signs of V. tach -- QTC prolonged to 564 - Patient's HR then normalized back to 80s - Patient asymptomatic from cardiac standpoint, denying chest pain, palpitations, shortness of breath - High sensitivity trop negative at 10.4 - Ordered CBC ordered showing stable anemia at 8.9 - Chemistry showed Potassium of 3.2, creatinine 1.81, magnesium 1.3, calcium 8.1 with ionized calcium of 1.09 -Total magnesium sulfate 6 g, potassium chloride 60 mEq, calcium gluconate 1 g ordered - Monitor on AM labs Resident Activity Tracking Resident Involvement: Resident Care Provided Care Provided: Adult Hospital Medicine
[2022-03-11] MEDS ORDERED: SODIUM CHLORIDE 0.9% 1000ML 1,000 ML IV ONE (23:47)
[2022-03-12] MEDS ORDERED: OPTIRAY 320 100ml IV ONE (00:32)
[2022-03-12] MEDS: MAGNESIUM SULFATE / D5W 1 GM/100 ML BAG IV SCH ×6 (01:13→12:19)
[2022-03-12 01:30] LABS: Hematocrit (blood only) 27.1 % (37-47); Hemoglobin 8.9 g/dL (12.0-16.0); Mean Corpuscular Hemoglobin 28.4 pg (25-34); Mean Corpuscular Volume 86.6 fL (80-100); Mean Platelet Volume 9.3 fL (7.4-10.4); Platelet Count 212 K/uL (130-400); RDW Coefficient of Variation 15.9 % (11.5-14.5); RDW Standard Deviation 49.4 fL (36.4-46.3); Red Blood Count 3.13 M/uL (4.2-5.4); White Blood Count 8.08 K/uL (4.8-10.8)
[2022-03-12 01:31] LABS: Mean Corpuscular Hgb Conc 32.8 g/dL (32-36)
[2022-03-12 01:46] LABS: Basophils # (auto) 0.03 K/uL (0-0.2); Basophils % (auto) 0.4 %; Eosinophils # (auto) 0.13 K/uL (0-0.5); Eosinophils % (auto) 1.6 %; Immature Granulocytes # (auto) 0.03 K/uL (0.00-0.02); Immature Granulocytes % (auto) 0.4 %; Lymphocytes # (auto) 1.31 K/uL (1.2-3.4); Lymphocytes % (auto) 16.2 %; Monocytes # (auto) 0.56 K/uL (0.11-0.59); Monocytes % (auto) 6.9 %; Neutrophils # (auto) 6.02 K/uL (1.4-6.5); Neutrophils % (auto) 74.5 %
[2022-03-12 02:01] LABS: Est GFR (African American) 34.1 ml/min; Potassium 3.2 mmol/L (3.5-5.1)
[2022-03-12 02:02] LABS: BUN Creatinine Ratio 11.6 (10-20); Calcium 8.1 mg/dl (8.5-10.1); Creatinine Clr Calc Pharmacy 33.9 ml/min; Est GFR (Non-African American) 29.4 ml/min; Magnesium 1.3 mg/dl (1.7-2.4)
[2022-03-12] MEDS ORDERED: STAT IV STA (02:40)
[2022-03-12] MEDS: POTASSIUM CHLORIDE / WTR 10 MEQ/100 ML PLCT IV SCH ×6 (03:13→08:17)
[2022-03-12] MEDS ORDERED: CALCIUM GLUCONATE 10% 1,000 MG in DEXTROSE 5% 50 ML IV ONE (03:15)
--- NOTE | 2022-03-12 07:17 | CT Scan Report ---
CT SCAN OF THE BRAIN WITHOUT IV CONTRAST CLINICAL HISTORY: Headache. Nausea and vomiting. Cryptococcal meningitis. COMPARISON STUDY: CT of the brain dated 02/28/2022. TECHNIQUE: Unenhanced axial CT scan of the brain is performed from the vertex to the skull base. A d ose lowering technique was utilized adhering to the principles of ALARA. CT DOSE: 1750.51 mGy.cm FINDINGS: Brain parenchyma: There is minimal microangiopathic change. The brain parenchyma is otherwise normal in appearance. There is no hemorrhage, mass effect, or evidence of acute territorial ischemia by CT c riteria. Draper-white matter differentiation is preserved. No extra-axial fluid collection is seen. Ventricles, sulci, cisterns: Normal in configuration. Intracranial vasculature: There is mild atherosclerotic calcification of the cavernous carotid and ve rtebral arteries. Calvarium: Unremarkable. Sinuses and mastoids: The visualized paranasal sinuses are clear. There is trace right mastoid effusi on. The left mastoid air cells are well pneumatized. Orbits: The bony orbits are grossly intact. IMPRESSION: There is no hemorrhage, mass effect, or evidence of acute territorial ischemia by CT almita king. ACT 112: Negative or not required by law. Electronically signed by: Hunter Martinez M.D. 03/12/2022 7:15 AM
[2022-03-12 07:22] LABS: Basophils # (auto) 0.02 K/uL (0-0.2); Basophils % (auto) 0.2 %; Eosinophils # (auto) 0.22 K/uL (0-0.5); Eosinophils % (auto) 2.3 %; Hematocrit (blood only) 26.3 % (37-47); Hemoglobin 8.8 g/dL (12.0-16.0); Immature Granulocytes # (auto) 0.02 K/uL (0.00-0.02); Immature Granulocytes % (auto) 0.2 %; Lymphocytes # (auto) 1.54 K/uL (1.2-3.4); Lymphocytes % (auto) 16.2 %; Mean Corpuscular Hemoglobin 28.4 pg (25-34); Mean Corpuscular Hgb Conc 33.5 g/dL (32-36); Mean Corpuscular Volume 84.8 fL (80-100); Mean Platelet Volume 9.6 fL (7.4-10.4); Monocytes # (auto) 0.93 K/uL (0.11-0.59); Monocytes % (auto) 9.8 %; Neutrophils # (auto) 6.75 K/uL (1.4-6.5); Neutrophils % (auto) 71.3 %; Platelet Count 229 K/uL (130-400); RDW Standard Deviation 48.9 fL (36.4-46.3); White Blood Count 9.48 K/uL (4.8-10.8)
[2022-03-12 07:42] LABS: BUN Creatinine Ratio 11.2 (10-20); Bilirubin,Total 0.5 mg/dl (0.2-1.0); Calcium 7.9 mg/dl (8.5-10.1); Creatinine Clr Calc Pharmacy 34.1 ml/min; Est GFR (African American) 34.6 ml/min; Est GFR (Non-African American) 29.8 ml/min; Potassium 3.7 mmol/L (3.5-5.1)
--- NOTE | 2022-03-12 07:59 | XRay Report ---
KUB CLINICAL HISTORY: Generalized abdominal pain. Nausea and vomiting. Diarrhea. FINDINGS: 2 AP supine abdominal radiographs are compared to study dated 05/15/2021 and correlated with abdominal CT dated 03/02/2022. Cholecystectomy clips are noted in the right upper quadrant. There is n o radiographic evidence of bowel obstruction. No evidence of intraperitoneal free air is seen on thes e supine images. There are nonobstructing bilateral renal calculi which measure up to 4 mm. An electr onic device projects over the right mid abdomen. The skeletal structures are osteopenic and appear in tact. There is lumbosacral spondylosis. A left hip arthroplasty is in place. Small pleural effusions are noted at the lung bases. IMPRESSION: 1. There is no radiographic evidence of bowel obstruction. 2. Bilateral nephrolithiasis. 3. Small pleural effusions. Electronically signed by: Hunter Martinez M.D. 03/12/2022 7:57 AM
--- NOTE | 2022-03-12 08:00 | CT Scan Report ---
CT OF THE ABDOMEN AND PELVIS WITH CONTRAST CLINICAL HISTORY: Abdominal pain, nausea and vomiting COMPARISON STUDY: CT of the abdomen and pelvis March 02, 2022. KUB March 11, 2022. TECHNIQUE: Following IV administration of 93 mL of Optiray, axial images of the abdomen and pelvis we re obtained from the lung bases to the proximal femurs. Images were reviewed in the axial, sagittal, and coronal planes. IV contrast was administered without complication. Automated exposure control wa s utilized for the study. A dose lowering technique was utilized adhering to the principles of ALARA . FINDINGS: Small hiatal hernia is present. Small bilateral pleural effusions have developed since CT o f March 02, 2022. These are partially imaged. Enhancing lower lung airspace opacities favor atelectasis . No pneumatosis, free air or portal venous gas is present. No biliary ductal dilatation status post cholecystectomy. The liver is cirrhotic. No hepatic lesions are identified on this portal venous phas e exam. The main, left and right portal veins are patent. Mild splenomegaly is noted. A small amount of abdominal and pelvic ascites has increased. Varices are present. Bilateral renal calculi measure u p to 6 mm. There are no ureteral calculi. There is no hydronephrosis. Left hip arthroplasty is noted. There is been interval development of pancolonic wall thickening. There is no abscess. Bladder is mi ldly distended. Body wall edema is noted. IMPRESSION: 1. Interval development of pancolonic wall thickening. Although this could be related to portal hyper tension, the findings favor a nonspecific colitis. 2. Cirrhosis. Interval increase in a small amount of ascites. Splenomegaly and varices consistent wit h portal hypertension. 3. Bilateral nephrolithiasis. No ureteral calculi or hydronephrosis. 4. Small bilateral pleural effusions with lower lung enhancing airspace opacities. These opacities fa vor atelectasis although an infectious process is within the differential. ACT 112: Negative or not required by law. Electronically signed by: Godwin Burden M.D. 03/12/2022 7:58 AM
[2022-03-12] MEDS: INSULIN ASPART PER UNIT SC SCH ×4 (08:23→20:05)
[2022-03-12] MEDS: FLUCYTOSINE 500 MG CAP PO SCH (09:36)
[2022-03-12] MEDS ORDERED: POTASSIUM CHLORIDE CRTAB 20 MEQ TABCR PO STA (09:36)
[2022-03-12] MEDS: PANTOprazole 40 MG in SYRINGE 0 ML IV SCH ×2 (09:36→19:49)
--- NOTE | 2022-03-12 11:34 | Electrocardiogram Report ---
Test Reason : Blood Pressure : / mmHG Vent. Rate : 166 BPM Atrial Rate : 138 BPM P-R Int : 152 ms QRS Dur : 102 ms QT Int : 340 ms P-R-T Axes : 000 -41 132 degrees QTc Int : 564 ms Atrial fibrillation with aberrant conduction Left axis deviation Abnormal ECG Confirmed by Brendon Nina ([id number]) on 03/12/2022 11:34:06 AM Referred By: REFERRED SELF Confirmed By:Alvino Nina
--- NOTE | 2022-03-12 12:10 | Hospitalist Progress Note ---
Date of Service March 12, 2022 Assessment & Plan (1) Cryptococcal meningitis: Plan: 61 yo F with DM2, cirrhosis admitted for cryptococcal meningitis. Accepted to [facility] for transfer today with accepting hospitalist physician Dr. Mcgarry, planned transport within 24-48 hours. Cryptococcal meningitis -Diagnosed with CSF findings. Risk factors include cirrhosis and DM2, HIV negative. Repeat CSF showed decreased WBCs -CT head, MRI brain negative for acute findings, no hydrocephalus noted -Continue amphotericin B and flucytosine for 2 weeks total therapy (03/02 to 03/16) per ID, will need prophylactic fluconazole for 12+ months afterward -Appears to be improving based on resolution of headaches, but repeat LP today given multiple episodes of nausea over past few days -Repeat CSF studies + opening pressure to assess improvement/interval change -Trend CBC, BMP -Accepted to [facility] today, transfer within 24-48 hours Acute blood loss anemia -Hgb 9.6 to 8.7 on 03/10, Hgb stable at 8.9 today, baseline appears 10-11 -Hemodynamically stable at this time -FOBT+ on 03/11, suspect potential UGIB -Withholding fluids for now given concern for fluid overload -Continue Protonix 40 mg IV BID -Trend CBC Nausea -Most likely secondary to possible GI bleed though increased ICP cannot be excluded -Zofran 8 mg PRN q6h -Repeat LP as above planned for today ALBINA on CKD2 -Cr 2.0 to 1.8 today, stable -CrCl baseline appears to be 60s -Suspect this is secondary to amphotericin/flucytosine nephrotoxicity -Discussed renal dosing of her medications with pharmacy -Awaiting recommendations from ID -Flucytosine adjusted to q12 from q6 per pharmacy -Withholding fluids at this time due to concern for fluid overload and worsening her nausea New onset atrial flutter with rapid ventricular response -03/07- patient went into atrial flutter w/ RVR 130s-140s, was given metoprolol with appropriate rate control reached later in PM -Echo 03/07 wnl -Spontaneously converted to NSR on 03/08, rate controlled and sinus since. Likely underlying PAF triggered by acute illness phase -CHADSVASC score of 4- deferring anticoagulation at this time due to possible need for future therapeutic lumbar punctures -Cardiology recommendations: -Continue to monitor on telemetry -Consider outpatient sleep study due to concern for LOURDES -Recommend deferring DOAC until meningitis resolves and no need for lumbar puncture -Noted brief runs of VT on 03/12, continue monitoring Nocturnal O2 requirement -On 2L NC at nighttime only during sleep -O2% stable on RA during daytime -No known oxygen requirement during day Hypokalemia -K 3.3 to 3.7 today s/p repletion -Continue repletion for K > 4 given her advancing illness -Trend BMP Hypomagnesemia -Mg 1.3 to 2 today s/p repletion -Continue repletion for Mg > 2 -Trend Mg Hypocalcemia -Ionized Ca 1.09 to corrected for albumin Ca 8.7 s/p repletion -Trend BMP Anxiety and depression -Continue home venlafaxine and mirtazapine Hypertension -Holding lisinoprilhydrochlorothiazide due to ALBINA -BPs stable at present History of T[place], cirrhosis -CTAP on admission demonstrating cirrhosis -Normal LFTs on admission and no signs of liver failure -Continue to monitor as above with CMP DM2 -Continue basal and sliding scale -glucose goal 140 to 180 HLD -allergic to statin -follow up with primary care regarding treatment DVT PROPHYLAXIS- Deferring anticoagulation due to potential need for lumbar puncture. SCDs FEN/GI-heart healthy diet CODE: Full Code Disposition: PCU (2) Hypertension: (3) Depression: (4) Diabetes mellitus type 2, uncontrolled, without complications: (5) Dyslipidemia: Admission and Anticipated Discharge Date Admission Date: March 01, 2022 Supervising Physician Co-Signing Physician Notes Patient seen and examined with PGY-1 Dr. Shah. Agree with history, exam findings, assessment and plan of care as outlined. In brief, Ms Ye is a 61 year old female with diabetes, cirrhosis admitted with cryptococcal meningitis. Overnight, had episodes of nonsustained Vtach. Noted to have some electrolyte abnormalities that were corrected and Vtach resolved. VS and nursing notes reviewed. Well appearing. Neck is supple. Heart with regular rate and rhythm . No edema. Lungs are clear to auscultation in all lung [place]. Labs and imaging reviewed. * Cryptococcal meningitis. Continue amophotericin B, flucytosinewill need 2 weeks total followed by prophylactic fluconazole for 1 year. Repeat LP today with slightly higher WBC count compared to 03/05. * VTach. Secondary to electrolyte derangement. Repleted overnight. * Acute blood loss anemia. Has been stable. + FOBT. Continue PPI BID. * Nausea. ?secondary to acute GI bleed. CT Abdomen/Pelvis overnight with colitis. Stools studies pending. * ALBINA. Slightly improved. Renally dosing flucytosine. Stopped IVFs but encouraged continue PO intake of fluids. Dispo: Pending transfer to [facility]. Subjective Overnight pt experienced nausea with diffuse abdominal pain, along with 5-10 episodes of watery diarrhea over the day. Nausea did not respond to Zofran PRN. Pt also experienced b/l leg cramps and was noted on telemetry to have 11 beats of ventricular tachycardia into the HR 200s. EKG demonstrated VT with HR 166 and prolonged QT 564. VT later resolved to sinus with HR 80s. Electrolytes low at K 3.2, Mg 1.3, ionized Ca 1.09- were repleted with improvement noted in AM labs. KUB was negative, head CT negative, CTAP demonstrated colonic wall thickening with potential colitis vs cirrhosis colopathy, b/l pleural effusions, small interval increase in ascites. On evaluation this morning, pt reports feeling better. Her nausea has resolved, denies headache or photosensitivity, neck stiffness. She denies any dyspnea or bloating. No current abdominal pain, fever, chills. Spoke to her about rationale for transfer and she was amenable. Review of Systems Constitutional: as per Subjective / HPI Physical Exam Constitutional: WD/WN, vitals as above cooperative and comfortable Some increased minor facial edema Eyes: PERRL, conjunctivae normal, anicteric sclerae Neck: normal visual inspection Respiratory: normal respiratory effort, lungs clear to auscultation Cardiovascular: RRR, no murmur, no edema Heart Sounds: normal S1 and normal S2 Vessels: no JVD Gastrointestinal (Abdomen): Inspection/Auscultation: + abdomen distended (slight) Percussion/Palpation: + abdomen tender (mild diffuse tenderness to deep palpation) and abdomen soft Musculoskeletal: Head/Neck/Chest: normocephalic and head atraumatic Skin: no rashes, warm and dry Neurologic: PERRL, EOMI, accommodation nl, no face palsy, no dysarthria moves all extremities Motor/Sensory: normal movement and no sensory deficit (reflexes 1+, 5/5 strength in all extremities) Psychiatric: A+Ox3, euthymic affect Results & Data Results & Data ([facility]) Vital Signs (Past 12 Hours) Vital Signs Temp Pulse Pulse Resp BP Pulse Ox 03/12/22 07:14 37.0 C 80 19 120/73 94 03/12/22 07:00 85 03/12/22 04:36 37.2 C 144 H 18 118/83 92 03/12/22 00:52 87 03/11/22 23:39 37.0 C 84 18 133/80 90 (1) Depression Depression Type: unspecified Qualified Code(s): F32.9 - Major depressive disorder, single episode, unspecified (2) Hypertension Hypertension type: essential hypertension Qualified Code(s): I10 - Essential (primary) hypertension
--- NOTE | 2022-03-12 12:13 | Fluoroscopy Report ---
FL lumbar puncture therapeutic CLINICAL HISTORY: nausea, meningitis COMPARISON STUDY: Fluoroscopically guided lumbar puncture March 05, 2022. FLUOROSCOPY TIME: 28 seconds. FLUOROSCOPIC IMAGES: 1 PROCEDURE: The procedure, risks and benefits were discussed with the patient including the risk of sp inal headache, bleeding and infection. The patient agreed to the procedure and informed written conse nt was obtained. The procedure was performed by Dr. Burden following a timeout. Skin of the lower back was prepped and draped in sterile fashion and local anesthesia was achieved with 1% lidocaine. U nder intermittent fluoroscopic guidance, a 5 inch, 22-gauge spinal needle was directed into the theca l sac through the right L4-L5 interlaminar space. There was immediate return of clear CSF. A total of 10 cc of cerebrospinal fluid was collected in 4 vials and sent to the laboratory for analysis as ord ered. The patient tolerated the procedure well and no immediate complications were evident. IMPRESSION: Successful fluoroscopically guided lumbar puncture with collection of 10 cc of clear cer ebrospinal fluid which was sent to the laboratory for analysis. ACT 112: Negative or not required by law. Electronically signed by: Godwin Burden M.D. 03/12/2022 12:12 PM
[2022-03-12] MEDS: BENZONATATE 100 MG CAPSULE PO PRN (12:19)
[2022-03-12 12:36] LABS: Total Protein CSF 106.3 mg/dl (15-45)
[2022-03-12 12:45] LABS: Appearance CSF Clear; CSF Count Tube # 3; CSF Xanthrochromic No xanthochromia; Color CSF Colorless
[2022-03-12 12:46] LABS: Red Blood Cell CSF (A) 4 /uL (0-); Red Blood Cell CSF (B) 1 /uL (0-)
[2022-03-12 12:49] LABS: White Blood Cell CSF (A) 312 /uL (0-5)
--- NOTE | 2022-03-12 16:56 | Cardiology Progress Note ---
Date of Service March 12, 2022 Assessment & Plan (1) Atrial fibrillation: (2) Mitral regurgitation: Plan: 1. Atrial fibrillation: she did have some additional episodes of atrial fibrillation over the past 24 hours. These were fairly brief. She did have some high ventricular rates. She did notice the palpitations but tolerated them well. She has gone several days without episodes of atrial fibrillation. I still suspect that when her acute illness resolves and she is not on her current medications will see less atrial fibrillation. For continued recurrences initiation of rate control medication may be of value. In the setting of brief runs of ventricular tachycardia beta-narendra would be preferred. She would generally be advised to consider systemic anticoagulation based on her risk factors. However, her overall risk is quite low it seems likely she will require additional procedures. This can safely be deferred in the short term. 2. Mitral regurgitation: Mild. This can be followed over time. 3. ventricular tachycardia: Review of her telemetry does reveal some brief episodes of nonsustained VT. Someone complex tachycardia was likely aberrant see from atrial fibrillation. However, there are other fairly clear episodes of a very irregular wide complex rhythm suggestive nonsustained VT. I would agree with the initial evaluation suggesting this was related to electrolyte derangements. This is a known affect of amphotericin. Electrolytes were replaced in her rhythm has been stable. This will need to be monitored closely during the remainder of her treatment with amphotericin. Admission and Anticipated Discharge Date Admission Date: March 01, 2022 Subjective this afternoon the patient claims to be feeling well. She continues to have a mild headache distinguishes this from the meningeal headache she experienced at the time of admission. She does recall the events of last evening. She immedi ately noticed a transition to atrial fibrillation manifest by a high heart rate. She did not have associated symptoms. She was however lying in bed. She engage in some deep breathing and relaxation feels this terminated the tachycardia. Review of Systems Review of Systems: Per HPI Physical Exam Physical Exam: She is alert and oriented x3. Mood affect appear normal. She answered all questions appropriately. HEENT: Sclerae are anicteric. Pupils are equal and reactive to light and accommodation. Extraocular movements were intact. Neuro: Cranial nerves intact Lungs: normal respiratory effort Results & Data ([facility]) Vital Signs (Past 12 Hours) Vital Signs Temp Pulse Pulse Resp BP Pulse Ox 03/12/22 15:51 36.7 C 80 19 135/79 91 03/12/22 07:14 37.0 C 80 19 120/73 94 03/12/22 07:00 85 Laboratory Results Abnormal Lab Results 03/11/22 03/12/22 03/12/22 21:29 01:01 01:01 WBC 8.08 RBC 3.13 L Hgb 8.9 L Hct 27.1 L MCV 86.6 MCH 28.4 MCHC 32.8 RDW Std Deviation 49.4 H RDW Coeff of Jun 15.9 H Plt Count 212 MPV 9.3 Immature Gran % (Auto) 0.4 Neut % (Auto) 74.5 Lymph % (Auto) 16.2 Sevier % (Auto) 6.9 Eos % (Auto) 1.6 Baso % (Auto) 0.4 Neut # (Auto) 6.02 Lymph # (Auto) 1.31 Sevier # (Auto) 0.56 Eos # (Auto) 0.13 Baso # (Auto) 0.03 Immature Gran # (Auto) 0.03 H Sodium 138 Potassium 3.2 L Chloride 110 H Carbon Dioxide 18 L Anion Gap 10 BUN 21 Creatinine 1.81 H Est Cr Clr Drug Dosing 33.9 Est GFR ( Amer) 34.1 Est GFR (Non-Af Amer) 29.4 BUN/Creatinine Ratio 11.6 Glucose 149 H POC Glucose 188 H Calcium 8.1 L Ionized Calcium Magnesium 1.3 L Total Bilirubin AST ALT Alkaline Phosphatase Troponin I High Sens Total Protein Albumin Globulin Albumin/Globulin Ratio Fluid Comment CSF Appearance CSF Color Xanthrochromic CSF WBC CSF RBC CSF Cell Count Tube # CSF Mononuclear WBCs % CSF Polynuclear WBCs % CSF Chemistry Tube # CSF Glucose CSF Lactate CSF Total Protein 03/12/22 03/12/22 03/12/22 01:01 01:16 06:15 WBC RBC Hgb Hct MCV MCH MCHC RDW Std Deviation RDW Coeff of Jun Plt Count MPV Immature Gran % (Auto) Neut % (Auto) Lymph % (Auto) Sevier % (Auto) Eos % (Auto) Baso % (Auto) Neut # (Auto) Lymph # (Auto) Sevier # (Auto) Eos # (Auto) Baso # (Auto) Immature Gran # (Auto) Sodium 136 Potassium 3.7 Chloride 109 H Carbon Dioxide 19 L Anion Gap 8 BUN 20 Creatinine 1.79 H Est Cr Clr Drug Dosing 34.1 Est GFR ( Amer) 34.6 Est GFR (Non-Af Amer) 29.8 BUN/Creatinine Ratio 11.2 Glucose 175 H POC Glucose Calcium 7.9 L Ionized Calcium 1.09 L Magnesium 2.0 Total Bilirubin 0.5 AST 27 ALT 14 Alkaline Phosphatase 92 Troponin I High Sens 10.4 Total Protein 6.0 Albumin 3.0 L Globulin 3.0 Albumin/Globulin Ratio 1.0 Fluid Comment CSF Appearance CSF Color Xanthrochromic CSF WBC CSF RBC CSF Cell Count Tube # CSF Mononuclear WBCs % CSF Polynuclear WBCs % CSF Chemistry Tube # CSF Glucose CSF Lactate CSF Total Protein 03/12/22 03/12/22 03/12/22 06:15 07:17 11:29 WBC 9.48 RBC 3.10 L Hgb 8.8 L Hct 26.3 L MCV 84.8 MCH 28.4 MCHC 33.5 RDW Std Deviation 48.9 H RDW Coeff of Jun 16.0 H Plt Count 229 MPV 9.6 Immature Gran % (Auto) 0.2 Neut % (Auto) 71.3 Lymph % (Auto) 16.2 Sevier % (Auto) 9.8 Eos % (Auto) 2.3 Baso % (Auto) 0.2 Neut # (Auto) 6.75 H Lymph # (Auto) 1.54 Sevier # (Auto) 0.93 H Eos # (Auto) 0.22 Baso # (Auto) 0.02 Immature Gran # (Auto) 0.02 Sodium Potassium Chloride Carbon Dioxide Anion Gap BUN Creatinine Est Cr Clr Drug Dosing Est GFR ( Amer) Est GFR (Non-Af Amer) BUN/Creatinine Ratio Glucose POC Glucose 169 H Calcium Ionized Calcium Magnesium Total Bilirubin AST ALT Alkaline Phosphatase Troponin I High Sens Total Protein Albumin Globulin Albumin/Globulin Ratio Fluid Comment CSF Appearance CSF Color Xanthrochromic CSF WBC CSF RBC CSF Cell Count Tube # CSF Mononuclear WBCs % CSF Polynuclear WBCs % CSF Chemistry Tube # 1 CSF Glucose 68 CSF Lactate CSF Total Protein 106.3 H 03/12/22 03/12/22 03/12/22 11:29 11:29 12:26 WBC RBC Hgb Hct MCV MCH MCHC RDW Std Deviation RDW Coeff of Jun Plt Count MPV Immature Gran % (Auto) Neut % (Auto) Lymph % (Auto) Sevier % (Auto) Eos % (Auto) Baso % (Auto) Neut # (Auto) Lymph # (Auto) Sevier # (Auto) Eos # (Auto) Baso # (Auto) Immature Gran # (Auto) Sodium Potassium Chloride Carbon Dioxide Anion Gap BUN Creatinine Est Cr Clr Drug Dosing Est GFR ( Amer) Est GFR (Non-Af Amer) BUN/Creatinine Ratio Glucose POC Glucose 209 H Calcium Ionized Calcium Magnesium Total Bilirubin AST ALT Alkaline Phosphatase Troponin I High Sens Total Protein Albumin Globulin Albumin/Globulin Ratio Fluid Comment CSF Appearance Clear CSF Color Colorless Xanthrochromic No xanthochromia CSF WBC 312 H* CSF RBC 4 CSF Cell Count Tube # 3 CSF Mononuclear WBCs % 99.0 CSF Polynuclear WBCs % 1.0 CSF Chemistry Tube # CSF Glucose CSF Lactate 3.9 H CSF Total Protein 03/12/22 16:16 WBC RBC Hgb Hct MCV MCH MCHC RDW Std Deviation RDW Coeff of Jun Plt Count MPV Immature Gran % (Auto) Neut % (Auto) Lymph % (Auto) Sevier % (Auto) Eos % (Auto) Baso % (Auto) Neut # (Auto) Lymph # (Auto) Sevier # (Auto) Eos # (Auto) Baso # (Auto) Immature Gran # (Auto) Sodium Potassium Chloride Carbon Dioxide Anion Gap BUN Creatinine Est Cr Clr Drug Dosing Est GFR ( Amer) Est GFR (Non-Af Amer) BUN/Creatinine Ratio Glucose POC Glucose 162 H Calcium Ionized Calcium Magnesium Total Bilirubin AST ALT Alkaline Phosphatase Troponin I High Sens Total Protein Albumin Globulin Albumin/Globulin Ratio Fluid Comment CSF Appearance CSF Color Xanthrochromic CSF WBC CSF RBC CSF Cell Count Tube # CSF Mononuclear WBCs % CSF Polynuclear WBCs % CSF Chemistry Tube # CSF Glucose CSF Lactate CSF Total Protein PG Care Time/CCT Total # of Minutes Spent Total Time Spent with Patient: Total time spent is greater than 50% in coordination of care (as documented) at patient's floor/unit and/or counseling patient: Coding Level of Care Code 38753 Subseq Hosp Care Lvl 2 Diagnoses Atrial fibrillation I48.91 Mitral regurgitation I34.0
[2022-03-12] MEDS: ASPIRIN 81 MG ECTAB PO SCH (19:49)
[2022-03-12] MEDS: VENLAFAXINE HCL XR 150 MG CAPXR PO SCH (19:49)
[2022-03-12] MEDS: MIRTAZAPINE TAB 15 MG TAB PO SCH (19:49)
[2022-03-12] MEDS: INSULIN GLARGINE SOLOSTAR 100 UNITS/ML 3 ML PEN SC SCH (20:05)
--- NOTE | 2022-03-13 07:20 | Discharge Summary ---
Date of Service March 13, 2022 Admission HPI Per Admitting Provider Lynne Ye is a 61-year-old female with past medical history of anxiety/depression, hypertension, DM 2, hyperlipidemia, insomnia who presented today for evaluation of headaches. Patient has been having headaches for 6 weeks but worsened significantly over the past 9 days. She was seen in our emergency department yesterday for similar complaints. At that time, she had negative CT head, CTA head/neck. She imp roved with Toradol injection. At that time did not have any meningeal signs. She was discharged home with instructions to follow-up with PCP or return to ED for worsening symptoms. Today, patient did have worsening headache at which point she decided to return to the emergency room for reevaluation. She presented with nausea and vomiting in addition to above-stated complaint. No fever, chills, S pain, shortness of breath, cough, palpitations, rashes, neurologic deficits. Lab work in ED remarkable for hemoglobin of 10.4, potassium of 3.1, magnesium 1.6, CRP 0.72, normal liver function tests. ED provider did perform a lumbar puncture due to worsening headaches, which resulted with 320 WBC, 108.5 total protein, 60 glucose, positive for cryptococcus. The patient has no clear source of immunosuppression at this time. Denies IV drug use. No history of STIs. At the time of evaluation, patient is comfortable in no acute distress. She had received morphine 6 mg IV as well as Zofran 4 mg IV x2. Principal Diagnosis cryptococcal meningitis Discharge Exam Examination not completed as patient had already been transferred Discharge Data Allergies Allergy/AdvReac Type Severity Reaction Status Date / Time Penicillins Allergy Intermediate Hives Verified 03/01/22 21:26 atorvastatin Allergy Unknown CAN'T Verified 03/01/22 21:26 REMEMBER gemfibrozil [From Lopid] Allergy Unknown CAN'T Verified 03/01/22 21:26 REMEMBER acetaminophen [From Tylenol] AdvReac Severe CAN NOT Verified 03/01/22 21:26 TAKE D/T LIVER ISSUES rosuvastatin AdvReac Intermediate Muscle Pain Verified 03/01/22 21:26 Consultations 03/01/22 21:59 ED Decision to Admit Stat 03/02/22 00:56 Consult Infectious Diseases Routine Consult Hook Tender Routine 03/03/22 16:02 Consult Neurology Routine 03/07/22 13:40 Consult Cardiology Routine 03/09/22 12:36 Consult Infectious Diseases Routine 03/12/22 09:24 Burn CD for patient Routine Ordered Studies 03/01/22 23:45 CT abd pelvis IV con only Urgent CT chest diagnostic w con Urgent 03/02/22 01:16 MR brain wo/w con Stat 03/05/22 11:00 FL lumbar puncture therapeutic Urgent 03/11/22 23:32 CT abd pelvis IV con only Stat 03/11/22 23:49 CT head/brain wo con Stat 03/12/22 11:46 FL lumbar puncture therapeutic Routine Hospital Course (1) Cryptococcal meningitis: 61 yo F with DM2, cirrhosis admitted for cryptococcal meningitis. Transferred to [facility] [place] 03/12-03/13. Cryptococcal meningitis -Diagnosed with CSF findings. Risk factors include cirrhosis and DM2, HIV negative. Repeat CSF showed decreased WBCs -CT head, MRI brain negative for acute findings, no hydrocephalus noted -Continue amphotericin B and flucytosine for 2 weeks total therapy (03/02 to 03/16) per ID, will need prophylactic fluconazole for 12+ months afterward -Appears to be improving based on resolution of headaches, but repeat LP today given multiple episodes of nausea over past few days -Repeat CSF studies + opening pressure to assess improvement/interval change -transferred to [facility] overnight Acute blood loss anemia -Hgb 9.6 to 8.7 on 03/10, Hgb stable at 8.9 today, baseline appears 10-11 -Hemodynamically stable at this time -FOBT+ on 03/11, suspect potential UGIB -Withholding fluids for now given concern for fluid overload -Continue Protonix 40 mg IV BID Nausea -Most likely secondary to possible GI bleed though increased ICP cannot be excluded -Zofran 8 mg PRN q6h -Repeat LP as above planned for today ALBINA on CKD2 -Cr 2.0 to 1.8 today, stable -CrCl baseline appears to be 60s -Suspect this is secondary to amphotericin/flucytosine nephrotoxicity -Discussed renal dosing of her medications with pharmacy -Awaiting recommendations from ID -Flucytosine adjusted to q12 from q6 per pharmacy New onset atrial flutter with rapid ventricular response -03/07- patient went into atrial flutter w/ RVR 130s-140s, was given metoprolol with appropriate rate control reached later in PM -Echo 03/07 wnl -Spontaneously converted to NSR on 03/08, rate controlled and sinus since. Likely underlying PAF triggered by acute illness phase -CHADSVASC score of 4- deferring anticoagulation at this time due to possible need for future therapeutic lumbar punctures -Cardiology recommendations: -Continue to monitor on telemetry -Consider outpatient sleep study due to concern for LOURDES -Recommend deferring DOAC until meningitis resolves and no need for lumbar puncture -Noted brief runs of VT on 03/12, continue monitoring on telemetry Nocturnal O2 requirement -On 2L NC at nighttime only during sleep -O2% stable on RA during daytime -No known oxygen requirement during day Hypokalemia -K 3.3 to 3.7 today s/p repletion -Continue repletion for K > 4 given her advancing illness -Trend BMP Hypomagnesemia -Mg 1.3 to 2 today s/p repletion -Continue repletion for Mg > 2 -Trend Mg Hypocalcemia -Ionized Ca 1.09 to corrected for albumin Ca 8.7 s/p repletion -Trend BMP Anxiety and depression -Continue home venlafaxine and mirtazapine Hypertension -Holding lisinoprilhydrochlorothiazide due to ALBINA -BPs stable at present History of TOLENTINO, cirrhosis -CTAP on admission demonstrating cirrhosis -Normal LFTs on admission and no signs of liver failure -Continue to monitor as above with CMP DM2 -Continue basal and sliding scale -glucose goal 140 to 180 HLD -allergic to statin -follow up with primary care regarding treatment (2) Hypertension: (3) Depression: (4) Diabetes mellitus type 2, uncontrolled, without complications: (5) Dyslipidemia: Total Time Total Time Spent Total Time Spent (In Minutes): <30 Discharge Plan Discharge Items Patient Disposition: Transfer Acute Care Hospital Reason For Visit: CRYPTOCOCCAL MENINGITIS Discharge Diagnosis: Cryptococcal meningitis, ALBINA, GI bleed Activity: Per Instructions section Non-emergency contact: Primary Care Provider Call non-emergency contact if: you have any medication questions, your symptoms worsen and your pain is worsening Follow-up/Referrals: Brendon Farfan MD [Primary Care Provider] - Diet: Carb Consistent or DM2 Addtl Attending Provider Instructions: (1) Cryptococcal meningitis: Plan: 61 yo F with DM2, cirrhosis admitted for cryptococcal meningitis. Accepted to [facility] for transfer today with accepting hospitalist physician Dr. Mcgarry, planned transport within 24-48 hours. Cryptococcal meningitis -Diagnosed with CSF findings. Risk factors include cirrhosis and DM2, HIV negative. Repeat CSF showed decreased WBCs -CT head, MRI brain negative for acute findings, no hydrocephalus noted -Continue amphotericin B and flucytosine for 2 weeks total therapy (03/02 to 03/16) per ID, will need prophylactic fluconazole for 12+ months afterward -Appears to be improving based on resolution of headaches, but repeat LP today given multiple episodes of nausea over past few days -Repeat CSF studies + opening pressure to assess improvement/interval change -Trend CBC, BMP -Accepted to [facility] today, transfer within 24-48 hours Acute blood loss anemia -Hgb 9.6 to 8.7 on 03/10, Hgb stable at 8.9 today, baseline appears 10-11 -Hemodynamically stable at this time -FOBT+ on 03/11, suspect potential UGIB -Withholding fluids for now given concern for fluid overload -Continue Protonix 40 mg IV BID -Trend CBC Nausea -Most likely secondary to possible GI bleed though increased ICP cannot be excluded -Zofran 8 mg PRN q6h -Repeat LP as above planned for today ALBINA on CKD2 -Cr 2.0 to 1.8 today, stable -CrCl baseline appears to be 60s -Suspect this is secondary to amphotericin/flucytosine nephrotoxicity -Discussed renal dosing of her medications with pharmacy -Awaiting recommendations from ID -Flucytosine adjusted to q12 from q6 per pharmacy -Withholding fluids at this time due to concern for fluid overload and worsening her nausea New onset atrial flutter with rapid ventricular response -03/07- patient went into atrial flutter w/ RVR 130s-140s, was given metoprolol with appropriate rate control reached later in PM -Echo 03/07 wnl -Spontaneously converted to NSR on 03/08, rate controlled and sinus since. Likely underlying PAF triggered by acute illness phase -CHADSVASC score of 4- deferring anticoagulation at this time due to possible need for future therapeutic lumbar punctures -Cardiology recommendations: -Continue to monitor on telemetry -Consider outpatient sleep study due to concern for LOURDES -Recommend deferring DOAC until meningitis resolves and no need for lumbar puncture -Noted brief runs of VT on 03/12, continue monitoring Nocturnal O2 requirement -On 2L NC at nighttime only during sleep -O2% stable on RA during daytime -No known oxygen requirement during day Hypokalemia -K 3.3 to 3.7 today s/p repletion -Continue repletion for K > 4 given her advancing illness -Trend BMP Hypomagnesemia -Mg 1.3 to 2 today s/p repletion -Continue repletion for Mg > 2 -Trend Mg Hypocalcemia -Ionized Ca 1.09 to corrected for albumin Ca 8.7 s/p repletion -Trend BMP Anxiety and depression -Continue home venlafaxine and mirtazapine Hypertension -Holding lisinoprilhydrochlorothiazide due to ALBINA -BPs stable at present History of TOLENTINO, cirrhosis -CTAP on admission demonstrating cirrhosis -Normal LFTs on admission and no signs of liver failure -Continue to monitor as above with CMP DM2 -Continue basal and sliding scale -glucose goal 140 to 180 HLD -allergic to statin -follow up with primary care regarding treatment DVT PROPHYLAXIS- Deferring anticoagulation due to potential need for lumbar puncture. SCDs FEN/GI-heart healthy diet CODE: Full Code Pending Studies at Discharge: Yes Studies:: CSF studies Stand-Alone Forms: My [facility] Skilled Items Patient informed of condition?: Yes DNR: No Discharge Level of Care: Other Communicable Disease: No Discharge Prognosis: Improving Lines: Peripheral IV Urinary Catheter: No Medications and DC Order Prescriptions: Continued (DME) Contour Next Test Strips Strip See Rx Instructions .ROUTE .MEDSUPPLY Qty: 300 RF: 11 mirtazapine 30 mg tablet 30 mg PO HS Qty: 90 RF: 3 venlafaxine [Effexor XR] 150 mg capsule,extended release 24hr 300 mg PO HS Qty: 180 RF: 3 (DME) Omnipod Dash Pods (Gen 4) Cartridge See Rx Instructions .ROUTE .MEDSUPPLY Qty: 45 RF: 3 (DME) Ketostix Strip See Rx Instructions miscellaneous .MEDSUPPLY Qty: 50 RF: 6 lisinopril-hydrochlorothiazide 10-12.5 mg tablet 1 tab PO HS Qty: 30 RF: 11 (DME) Dexcom G6 Sensor Device See Rx Instructions .ROUTE .MEDSUPPLY Qty: 3 RF: 0 (DME) Dexcom G6 Transmitter Device See Rx Instructions .ROUTE .MEDSUPPLY Qty: 1 RF: 0 (DME) pen needle, diabetic [BD Ultra-Fine Jody Pen Needle] 32 gauge x 5/32" needle See Rx Instructions miscellaneous .MEDSUPPLY Qty: 120 RF: 5 multivitamin tablet 1 tab PO QAM RF: 0 aspirin 81 mg Tablet,Delayed Release (Dr/Ec) 81 mg PO HS RF: 0 ibuprofen [Advil] 200 mg Tablet 200 mg PO Q6H PRN (Reason: Pain) RF: 0 etodolac 200 mg capsule 200 mg PO Q12H PRN (Reason: pain) Qty: 14 RF: 0 ondansetron 4 mg tablet,disintegrating 4 mg PO Q8H PRN (Reason: nausea and vomiting) Qty: 30 RF: 0 insulin aspart U-100 100 unit/mL (3 mL) insulin pen 0 unit SUBCUT TIDM RF: 0 Toujeo SoloStar U-300 Insulin 300 unit/mL (1.5 mL) insulin pen 68 unit SUBCUT QPM RF: 0 Discharge Orders: Discharge Order (Routine); Ordered 03/13/22 Ordered By: Kenneth Toney Admission Data Admit Date/Time: 03/01/22 23:36 Attending Provider: Pérez Salazar Admit Provider: Carlos Case Primary Care Provider: Brendon Farfan Other Providers: Garett Stevens ; Lalo Medrano ; Feliciano Castaneda ; Yovanny Walker I. ; Srinath Hickman II ; Roxanne Becker ; Luis Daniel Baig ; Kenan Tran ; Rufus Benton ; Delbert Dailey ; Brendon Nina Other Interventions: Discharge Summary Assessment (RN) Last Done: 03/12/22 21:01 Supervising Physician Co-Signing Physician Notes Patient seen and examined with PGY-1 Dr. Shah. Agree with history, exam findings, assessment and plan of care as outlined. In brief, Ms Ye is a 61 year old female with diabetes, cirrhosis admitted with cryptococcal meningitis. Overnight, had episodes of nonsustained Vtach. Noted to have some electrolyte abnormalities that were corrected and Vtach resolved. VS and nursing notes reviewed. Well appearing. Neck is supple. Heart with regular rate and rhythm . No edema. Lungs are clear to auscultation in all lung [place]. Labs and imaging reviewed. * Cryptococcal meningitis. Continue amophotericin B, flucytosinewill need 2 weeks total followed by prophylactic fluconazole for 1 year. Repeat LP today with slightly higher WBC count compared to 03/05. * VTach. Secondary to electrolyte derangement. Repleted overnight. * Acute blood loss anemia. Has been stable. + FOBT. Continue PPI BID. * Nausea. ?secondary to acute GI bleed. CT Abdomen/Pelvis overnight with colitis. Stools studies pending. * ALBINA. Slightly improved. Renally dosing flucytosine. Stopped IVFs but encouraged continue PO intake of fluids. Dispo: Transferred to [facility]. I personally spent 45 minutes discharge planning for this patient.
== END 2022-03-12 21:00 | disposition short-term general hospital (02) | DRG 98 ==
LOC: ED 17:42 → 1E 23:36 → SUATTDRO 23:36 → 1E 03-02 00:16 → 2S 03-02 18:57

== ENCOUNTER 2022-04-19 10:17 | Inpatient (IN) ==
--- NOTE | 2022-04-19 10:58 | Emergency Department Note ---
Impression & Plan SOB (shortness of breath), Pulmonary emboli, Hypokalemia, Hypomagnesemia, DVT (deep venous thrombosis), Prolonged QT interval ED Provider Note NAME: DULCE HUDSON AGE: 61 SEX: F : 1960 ARRIVES VIA: Walk-In INFORMANT: [Patient] ED PROVIDER(S): [Hunter Almeida MD] CHIEF COMPLAINT: Abnormal CT scan HISTORY OF PRESENT ILLNESS: The patient is a 61-year-old female who has had a recent complicated medical history. She was diagnosed with cryptococcal meningitis. She was at our hospital for some time and then transferred to [facility] in [place]. She left [place] about a month ago. Since discharge, she has been short of breath. She does not believe that her breathing issues have worsened, they have been no better though either. No cough or congestion, no stuffy nose. No chest pain. No fever. The patient states that she has had vomiting almost every day since discharge. She is on fluconazole though and she thinks the medication is causing her nausea and vomiting. She has lost weight as a result of the nausea and vomiting. The patient had an outpatient CT scan of her chest today. The scan showed bilateral subsegmental and segmental pulmonary emboli. She was referred to the ED. She has no history of DVT or PE. She has had a history of A. fib, she is not anticoagulated REVIEW OF SYSTEMS: See HPI for pertinent positives and negatives. A total of ten systems were reviewed and were otherwise negative. PMHx/PSHx: See Below SOCIAL HISTORY: See Below. PHYSICAL EXAM: GENERAL: Patient is in no acute distress. HEENT: No acute trauma, normocephalic atraumatic, mucous membranes moist, no nasal congestion, no scleral icterus. NECK: No stridor, no adenopathy, no meningismus, trachea is midline. LUNGS: Clear to auscultation bilaterally, no wheeze, no rhonchi, breath sounds equal. Breath sounds somewhat diminished bilaterally. HEART: Without murmurs gallops or rubs, regular rate and rhythm. ABDOMEN: Soft, nontender, bowel sounds positive, no peritonitis. EXTREMITIES: No cyanosis, mild bilateral pedal edema, full range of motion of all the joints without pain or difficulty, no signs for acute trauma. NEUROLOGIC: Oriented x 3, no acute motor or sensory deficits, no focal weakness. SKIN: No rash, no jaundice, no diaphoresis. DIFFERENTIAL DIAGNOSIS: Reactive airway disease, pneumonia, pneumothorax, COVID-19, influenza, COPD, CHF, infection, cardiac ischemia, pulmonary embolism, bronchitis, musculoskeletal, gastrointestinal, as well as other pathologies. EMERGENCY DEPARTMENT COURSE/PROCEDURES: ECG: Indication was shortness of breath. The ECG shows a normal sinus rhythm with a rate of 64. There is a nonspecific interventricular block. There is some diffuse nonspecific ST change. There is no ST elevation, no PVCs. The QTc is 590. Compared to an ECG from 12 March 2022, A. fib is no longer present. The QTc has lengthened. Continuous Cardiac Monitoring: An order was placed for continuous cardiac monitoring. The monitor shows a rate of 65 with normal sinus rhythm. Critical Care Note: I have personally spent 41 minutes of critical care time in the direct management of this patient. This includes bedside care, interpretation of diagnostic studies, and testing, discussion with consultants, patient, and family members, and other required patient management activities. This 41 minutes is in excess of all separately billable procedures. MEDICAL DECISION MAKING: There is no leukocytosis. The patient is anemic but this appears baseline. There is a normal platelet count. No worrisome coagulopathy. D-dimer was elevated consistent with DVT or PE. Potassium is low at 2.4, magnesium was low 1.4. Some subtle liver enzyme elevations were noted. BNP was elevated consistent with potential fluid overload/CHF. COVID test returned negative. Chest x-ray showed some pulmonary congestion, no pneumothorax. Chest CT did show bilateral lower lobe pulmonary emboli. Lower extremity ultrasound demonstrated a deep clot in the left peroneal vein. ECG showed a normal sinus rhythm, no obvious ischemia. The QTC was prolonged. Cardiac enzyme testing was slightly elevated consistent with cardiac injury and/or potentially demand mismatch. The patient presents with shortness of breath for a month. She has pulmonary emboli, DVT, a low magnesium, a low potassium, a prolonged QTC. The patient is in need of a hospital stay. She was ordered for IV magnesium and IV potassium. She was ordered for oral potassium. She was ordered for a IV heparin bolus and drip. The patient is aware of her findings, she understands the reason for a hospital stay. I spoke with case management, the on-call hospitalist was consulted. Past Med/Surg History Medical History Anxiety Cirrhosis of liver FOLLOWS W/ [facility] Stable currently Depression Diabetes mellitus, type 2 IDDM Glucose fluctuates - since Covid in December 2020 On insulin pump Follows with endocrinology Dupuytren's contracture of hand Bilateral hands Dyslipidemia History of COVID-12 January 2021 > [facility], not hospitalized, fever, ear pain- did give infusion in ER No current issues Hypertension IBS (irritable bowel syndrome) Stable Insomnia Kidney stones FOLLOWS WITH DR FUCHS No current issues - monitoring currently Surgical History History of cystoscopy WITH STENTS AND STONE BASKETING History of lithotripsy History of tonsillectomy and adenoidectomy History of total hip arthroplasty LEFT Hx laparoscopic cholecystectomy Hx of colonoscopy Hx of surgical amputation of finger left pinky Hx of total hysterectomy GERALD WITH BSO Hx of tubal ligation Hx of wisdom tooth extraction Family History Father , age 75 Family history of diabetes mellitus Coronary heart disease Brother Family history of diabetes mellitus Mother , age 67 Family history of diabetes mellitus Heart disease Hypertension Grandfather (Paternal) Family history of diabetes mellitus Grandmother (Paternal) Family history of diabetes mellitus Denies family history of Ovarian cancer Breast cancer Colorectal cancer Social History Smoking Status: Former smoker Cigarettes Per Day: 06/2018; Number of Years Since Quit: 4; Second Hand Exposure: Yes; Hx Alcohol Use: No Hx Substance Use: No Preferred Language: Irish Communication Ability: Effective Visual Impairment: No Limitations Data Entry Analyst Required: No Beliefs That Will Affect Care: None marital status: Current Living Situation: Alone current occupational status: employed and disabled current occupation: [employer]-pt does have disability for diabetes- insurance helps Other Information That Helps Us Care for You: No Feels Safe at Home: Yes Safety Concerns: Feels Safe At This Time Childhood Exposure to Second-Hand Smoke: No caffeine: Yes Dental Care, Regularly: No Physical Activity Frequency: Does not Exercise Seatbelt Use: always Sunscreen Use: Yes Assistive Devices: None Allergies Allergies Allergy/AdvReac Type Severity Reaction Status Date / Time Penicillins Allergy Intermediate Hives Verified 04/01/22 21:40 atorvastatin Allergy Unknown CAN'T Verified 04/01/22 21:40 REMEMBER gemfibrozil [From Lopid] Allergy Unknown CAN'T Verified 04/01/22 21:40 REMEMBER acetaminophen [From Tylenol] AdvReac Severe CAN NOT Verified 04/01/22 21:40 TAKE D/T LIVER ISSUES ibuprofen AdvReac Severe liver Verified 04/01/22 21:41 issues rosuvastatin AdvReac Intermediate Muscle Pain Verified 04/01/22 21:40 Home Meds Home Medications Medication Instructions Recorded Confirmed aspirin 81 mg tablet,delayed 81 mg PO HS 06/05/19 04/01/22 release multivitamin 1 tab PO QAM 09/07/19 04/01/22 blood-glucose sensor (Dexcom G6 #3 ea 01/22/21 03/26/22 Sensor) blood-glucose transmitter (Dexcom #1 ea 01/22/21 03/26/22 G6 Transmitter) insulin aspart U-100 100 unit/mL 0 unit subcut TIDM 03/01/22 04/01/22 (3 mL) subcutaneous pen insulin glargine U-300 conc 300 68 unit subcut QPM 03/01/22 04/01/22 unit/mL (1.5 mL) subcutaneous pen (Toujeo SoloStar U-300 Insulin) Previous Rx's Medication Instructions Recorded Contour Next Test Strips (blood #300 ea 12/29/20 sugar diagnostic) mirtazapine 30 mg tablet 30 mg PO HS #90 tabs 05/06/21 venlafaxine 150 mg 300 mg PO HS #180 caps 07/01/21 capsule,extended release 24 hr (Effexor XR) Omnipod Dash Pods (Gen 4) (insulin #45 ea 09/15/21 pump cartridge) acetone (urine) test (Ketostix) #50 ea 10/14/21 pen needle, diabetic 32 gauge x #120 ea 11/06/21" (BD Ultra-Fine Jody Pen Needle) fluconazole 100 mg tablet 200 mg PO DAILY #60 tabs 04/16/22 metoprolol succinate 25 mg 25 mg PO QAM #90 tabs 04/16/22 tablet,extended release 24 hr ondansetron 4 mg disintegrating 4 mg PO Q6 PRN nausea and vomiting 04/16/22 tablet #60 tabs Results & Data (ED) Vital Signs Vital Signs - 24 hr 04/19/22 10:25 04/19/22 11:21 04/19/22 11:21 Temperature 36.6 C Temperature Source Temporal Artery Scan Pulse Rate 67 65 Pulse Rate [Apical] 64 Pulse Rhythm Regular Respiratory Rate 18 20 Respiratory Effort / Characteristics Non-Labored Respiratory Depth Normal Respiratory Pattern Regular Blood Pressure 153/74 H Blood Pressure [Right Arm] 140/74 Blood Pressure Mean 100 Blood Pressure Mean [Right Arm] 96 Pulse Oximetry 96 97 97 Oxygen Delivery Method Room Air Room Air Room Air Sepsis Recent Fever Within 48 Hours No Sepsis New/Unexplained Change in Mental Status No Sepsis Action Taken by Nursing No Action Required Home Medications Current Medication List: was personally reviewed by me Laboratory Data Attestation: I reviewed the patient's lab results. Result diagrams: 04/19/22 11:20 04/19/22 11:20 Lab Results 04/19/22 04/19/22 04/19/22 Range/Units 11:20 11:20 11:20 WBC 6.19 (4.8-10.8) K/ul RBC 4.03 (3.93-5.22) M/uL Hgb 10.9 L (12.0-16.0) g/dl Hct 34.4 (34.1-44.9) % MCV 85.4 (80.0-100.0) fL MCH 27.0 (25.0-34.0) pg MCHC 31.7 L (32.0-36.0) g/dL RDW Std Deviation 50.6 H (36.4-46.3) fL RDW Coeff of Jun 16.1 H (11.5-14.5) % Plt Count 170 (130-400) K/uL MPV 12.0 (9.4-12.3) fL Immature Gran % (Auto) 0.2 % Neut % (Auto) 64.9 % Lymph % (Auto) 25.5 % [place] % (Auto) 6.9 % Eos % (Auto) 1.5 % Baso % (Auto) 1.0 % Neut # (Auto) 4.02 (1.4-6.5) K/uL Lymph # (Auto) 1.58 (1.2-3.4) K/uL [place] # (Auto) 0.43 (0.24-0.82) K/uL Eos # (Auto) 0.09 (0-0.50) K/uL Baso # (Auto) 0.06 (0-0.2) K/uL Immature Gran # (Auto) 0.01 (0.00-0.02) K/uL PT 12.9 H (9.0-12.0) Seconds INR 1.2 H (0.9-1.1) APTT 24.5 (21.0-31.0) Seconds PTT Ratio 0.9 D-Dimer 6290 H* (0-500) ug/L FEU Sodium 142 (136-145) mmol/L Potassium 2.4 L* (3.5-5.1) mmol/L Chloride 103 (98-107) mmol/L Carbon Dioxide 27 (21-32) mmol/L Anion Gap 12 H (3-11) BUN 14 (6-23) mg/dl Creatinine 1.35 H (0.6-1.2) mg/dl Est Cr Clr Drug Dosing 41.7 ml/min Est GFR ( Amer) 48.6 ml/min Est GFR (Non-Af Amer) 42.0 ml/min BUN/Creatinine Ratio 10.4 (10-20) Glucose 199 H (70-99(Fasting)) mg/dl Calcium 8.7 (8.5-10.1) mg/dl Magnesium 1.4 L (1.7-2.4) mg/dl Total Bilirubin 0.9 (0.2-1.0) mg/dl AST 50 H (13-39) U/L ALT 18 (7-52) U/L Alkaline Phosphatase 254 H (34-104) U/L Troponin I High Sens 22.9 H D (0-14) pg/ml B-Natriuretic Peptide (0-100) pg/ml Total Protein 7.1 (6.0-8.3) gm/dl Albumin 3.4 (3.4-5.0) gm/dl Globulin 3.7 (2.5-4.0) gm/dl Albumin/Globulin Ratio 0.9 (0.9-2) SARS-CoV-2, RNA, NAAT (NEGATIVE) 04/19/22 04/19/22 Range/Units 11:20 11:39 WBC (4.8-10.8) K/ul RBC (3.93-5.22) M/uL Hgb (12.0-16.0) g/dl Hct (34.1-44.9) % MCV (80.0-100.0) fL MCH (25.0-34.0) pg MCHC (32.0-36.0) g/dL RDW Std Deviation (36.4-46.3) fL RDW Coeff of Jun (11.5-14.5) % Plt Count (130-400) K/uL MPV (9.4-12.3) fL Immature Gran % (Auto) % Neut % (Auto) % Lymph % (Auto) % [place] % (Auto) % Eos % (Auto) % Baso % (Auto) % Neut # (Auto) (1.4-6.5) K/uL Lymph # (Auto) (1.2-3.4) K/uL [place] # (Auto) (0.24-0.82) K/uL Eos # (Auto) (0-0.50) K/uL Baso # (Auto) (0-0.2) K/uL Immature Gran # (Auto) (0.00-0.02) K/uL PT (9.0-12.0) Seconds INR (0.9-1.1) APTT (21.0-31.0) Seconds PTT Ratio D-Dimer (0-500) ug/L FEU Sodium (136-145) mmol/L Potassium (3.5-5.1) mmol/L Chloride (98-107) mmol/L Carbon Dioxide (21-32) mmol/L Anion Gap (3-11) BUN (6-23) mg/dl Creatinine (0.6-1.2) mg/dl Est Cr Clr Drug Dosing ml/min Est GFR ( Amer) ml/min Est GFR (Non-Af Amer) ml/min BUN/Creatinine Ratio (10-20) Glucose (70-99(Fasting)) mg/dl Calcium (8.5-10.1) mg/dl Magnesium (1.7-2.4) mg/dl Total Bilirubin (0.2-1.0) mg/dl AST (13-39) U/L ALT (7-52) U/L Alkaline Phosphatase (34-104) U/L Troponin I High Sens (0-14) pg/ml B-Natriuretic Peptide 417 H (0-100) pg/ml Total Protein (6.0-8.3) gm/dl Albumin (3.4-5.0) gm/dl Globulin (2.5-4.0) gm/dl Albumin/Globulin Ratio (0.9-2) SARS-CoV-2, RNA, NAAT NEGATIVE (NEGATIVE) Administered Medications Heparin Sodium/Dextrose (Heparin Sodium/Dextrose) 25,000 units in 500 mls @ 22 mls/hr IV .[id number] HALEY; Protocol Stop: 05/19/22 12:44 Last Admin: 04/19/22 14:25 Dose: 1,100 units/hr, 22 mls/hr Documented By: JOSE ANGEL Co-signed By: CLAUDE Insulin Aspart (Insulin Aspart Per Unit) 0 units SC ACHS [facility] Stop: 05/19/22 16:29 Last Admin: 04/19/22 17:41 Dose: 3 units Documented By: EDA Co-signed By: OSVALDO Discontinued Medications Heparin Sodium (Porcine) (Heparin Sod (Porcine) 1000 Unit/Ml) 1 units IV NOW ONE Stop: 04/19/22 12:41 Last Admin: 04/19/22 14:25 Dose: 5,000 units Documented By: JOSE ANGEL Co-signed By: CLAUDE Heparin Sodium/Dextrose (Heparin Iv Adult Wt-Based Standard With Bolus Protocol) 1 each IV NOW STA; Protocol Stop: 04/19/22 12:25 Last Admin: 04/19/22 14:26 Dose: 1 each Documented By: JOSE ANGEL Potassium Chloride (K Ney / Wtr) 10 meq in 100 mls @ 100 mls/hr IV ONE ONE; Protocol Stop: 04/19/22 13:15 Last Infusion: 04/19/22 14:19 Dose: 0 mls/hr Documented By: JOSE ANGEL Admin: 04/19/22 13:08 Dose: 100 mls/hr Documented By: JOSE ANGEL Magnesium Sulfate/Dextrose (Magnesium Sulfate / D5w) 1 gm in 100 mls @ 100 mls/hr IV NOW STA Stop: 04/19/22 13:15 Last Infusion: 04/19/22 13:08 Dose: 0 mls/hr Documented By: JOSE ANGEL Admin: 04/19/22 12:35 Dose: 100 mls/hr Documented By: JOSE ANGEL Potassium Chloride (Potassium Chloride Crtab 20 Meq Tabcr) 20 meq PO NOW STA Stop: 04/19/22 12:17 Last Admin: 04/19/22 12:35 Dose: 20 meq Documented By: JOSE ANGEL Imaging Data Radiologist's Impression: Venous Doppler Study 04/19/22 10:51 BILATERAL LOWER EXTREMITY VENOUS DOPPLER CLINICAL HISTORY: Pulmonary embolus. COMPARISON STUDY: [Extremity venous Doppler ultrasound August 14, 2018. TECHNIQUE: Sonography of the deep venous system of the bilateral lower extremities was performed. Compression and augmentation were evaluated. FINDINGS: There is no deep venous thrombus within the right lower extremity. Note is made of deep venous thrombus within the left peroneal vein. No additional sites of deep venous thrombus within the lower extremities are identified. IMPRESSION: Deep venous thrombus within the left peroneal vein. ACT 112: Negative or not required by law. Electronically signed by: Godwin Burden M.D. 04/19/2022 12:18 PM Chest X-Ray 04/19/22 10:52 XR chest 1V portable HISTORY: 61 years-old Female SOB acute shortness of breath COMPARISON: Chest radiographs 04/08/2022 TECHNIQUE: Portable AP view of the chest FINDINGS: The cardiac silhouette is enlarged. Atherosclerosis of the aorta. Pulmonary vascular congestion with mild interstitial coarsening. No pneumothorax, large pleural effusion or lobar airspace consolidation. Bones appear grossly intact. IMPRESSION: Cardiomegaly with pulmonary vascular congestion. ACT 112: Negative or not required by law. The above report was generated using voice recognition software. It may contain grammatical, syntax or spelling errors. Electronically signed by: Markos Tineo M.D. 04/19/2022 11:[address] angio chest PE protocol CT DOSE: 268.62 mGy.cm HISTORY: 61 years-old Female with R06.02 - Shortness of breath. Acute shortness of breath TECHNIQUE: Multiple CTA images of the chest were obtained after the intravenous administration of 120 ml Optiray. Coronal and sagittal MIPS were obtained from the axial data set and were submitted for review. All measurements were obt ained according to NASCET criteria. A dose lowering technique was utilized adhering to the principles of ALARA. COMPARISON: Chest radiograph 04/08/2022, chest CT 03/02/2022 FINDINGS: CTA: Moderate cardiomegaly with small pericardial effusion. Moderate to extensive coronary artery calcifications. Mild atherosclerosis of the thoracic aorta without aneurysm or dissection. Segmental and subsegmental pulmonary emboli of the lower lobes. No central pulmonary emboli are identified. No evidence of righ t heart strain. CT CHEST: Trace pleural effusions. There is no pneumothorax. Unchanged 5 mm solid nodule of the left upper lobe on image 210. Subsegmental bibasilar groundglass densities suggest atelectasis. No pulmonary infarct identified. The central airways are patent. Cholecystectomy. Cirrhotic liver with small volume of upper abdominal ascites. Nonspecific distal esophageal wall thickening. Unremarkable soft tissues. Degenerative changes of the shoulders and spine. IMPRESSION: 1. Segmental and subsegmental pulmonary emboli of the lower lobes. This finding was called/faxed to the ordering clinician at time of dictation. 2. Cardiomegaly with mild subsegmental bibasilar atelectasis. 3. Cirrhotic liver disease with small volume of upper abdominal ascites. 4. 5 mm solid pulmonary nodule of the left upper lobe. Discharge Plan Visit Data Chief Complaint: Abnormal Labs/Diagnostic Testing Stated Complaint: REF BY , ABNORMAL LABS ED Provider: Hunter Almeida Discharge Problem: SOB (shortness of breath), Pulmonary emboli, Hypokalemia, Hypomagnesemia, DVT (deep venous thrombosis), Prolonged QT interval Patient Disposition: Admitted As Inpatient Condition: Fair Discharge Instructions Interventions: ED Discharge Assessment Last Done: 04/19/22 14:33
--- NOTE | 2022-04-19 11:27 | XRay Report ---
XR chest 1V portable HISTORY: 61 years-old Female SOB acute shortness of breath COMPARISON: Chest radiographs 04/08/2022 TECHNIQUE: Portable AP view of the chest FINDINGS: The cardiac silhouette is enlarged. Atherosclerosis of the aorta. Pulmonary vascular congestion with mild interstitial coarsening. No pneumothorax, large pleural effusion or lobar airspace consolidation . Bones appear grossly intact. IMPRESSION: Cardiomegaly with pulmonary vascular congestion. ACT 112: Negative or not required by law. The above report was generated using voice recognition software. It may contain grammatical, syntax o r spelling errors. Electronically signed by: Markos Tineo M.D. 04/19/2022 11:26 AM
[2022-04-19 11:52] LABS: Basophils # (auto) 0.06 K/uL (0-0.2); Eosinophils # (auto) 0.09 K/uL (0-0.50); Eosinophils % (auto) 1.5 %; Hematocrit (blood only) 34.4 % (34.1-44.9); Hemoglobin 10.9 g/dl (12.0-16.0); Immature Granulocytes # (auto) 0.01 K/uL (0.00-0.02); Immature Granulocytes % (auto) 0.2 %; Lymphocytes # (auto) 1.58 K/uL (1.2-3.4); Lymphocytes % (auto) 25.5 %; Mean Corpuscular Hgb Conc 31.7 g/dL (32.0-36.0); Mean Corpuscular Volume 85.4 fL (80.0-100.0); Monocytes # (auto) 0.43 K/uL (0.24-0.82); Monocytes % (auto) 6.9 %; Neutrophils # (auto) 4.02 K/uL (1.4-6.5); Neutrophils % (auto) 64.9 %; Platelet Count 170 K/uL (130-400); RDW Coefficient of Variation 16.1 % (11.5-14.5); RDW Standard Deviation 50.6 fL (36.4-46.3); Red Blood Count 4.03 M/uL (3.93-5.22); White Blood Count 6.19 K/ul (4.8-10.8)
[2022-04-19 12:12] LABS: Albumin Globulin Ratio 0.9 (0.9-2); Albumin Level 3.4 gm/dl (3.4-5.0); BUN Creatinine Ratio 10.4 (10-20); Bilirubin,Total 0.9 mg/dl (0.2-1.0); Calcium 8.7 mg/dl (8.5-10.1); Creatinine Clr Calc Pharmacy 41.7 ml/min; Est GFR (African American) 48.6 ml/min; Globulin 3.7 gm/dl (2.5-4.0); Magnesium 1.4 mg/dl (1.7-2.4); Potassium 2.4 mmol/L (3.5-5.1); Total Protein 7.1 gm/dl (6.0-8.3)
[2022-04-19] MEDS ORDERED: MAGNESIUM SULFATE / D5W 1 GM/100 ML BAG IV STA (12:16)
[2022-04-19] MEDS ORDERED: POTASSIUM CHLORIDE / WTR 10 MEQ/100 ML PLCT IV ONE (12:16)
[2022-04-19] MEDS ORDERED: POTASSIUM CHLORIDE CRTAB 20 MEQ TABCR PO STA (12:16)
[2022-04-19 12:18] LABS: Troponin I High Sensitivity 22.9 pg/ml (0-14)
--- NOTE | 2022-04-19 12:19 | Ultrasound Report ---
BILATERAL LOWER EXTREMITY VENOUS DOPPLER CLINICAL HISTORY: Pulmonary embolus. COMPARISON STUDY: [Extremity venous Doppler ultrasound August 14, 2018. TECHNIQUE: Sonography of the deep venous system of the bilateral lower extremities was performed. Co mpression and augmentation were evaluated. FINDINGS: There is no deep venous thrombus within the right lower extremity. Note is made of deep deena ous thrombus within the left peroneal vein. No additional sites of deep venous thrombus within the lo wer extremities are identified. IMPRESSION: Deep venous thrombus within the left peroneal vein. ACT 112: Negative or not required by law. Electronically signed by: Godwin Burden M.D. 04/19/2022 12:18 PM
[2022-04-19 12:23] LABS: INR 1.2 (0.9-1.1); Partial Thromboplastin Ratio 0.9; Partial Thromboplastin Time 24.5 Seconds (21.0-31.0); Prothrombin Time 12.9 Seconds (9.0-12.0)
[2022-04-19] MEDS ORDERED: Heparin IV Adult Wt-Based Standard WITH Bolus Protocol IV STA (12:24)
[2022-04-19] MEDS ORDERED: HEPARIN SOD (PORCINE) 1000 UNIT/ML IV ONE (12:40)
[2022-04-19 12:52] LABS: D Dimer 6290 ug/L FEU (0-500)
--- NOTE | 2022-04-19 13:26 | History & Physical Report ---
Date of Service April 19, 2022 Assessment & Plan (1) Pulmonary emboli: Plan: Admit to a stepdown bed Patient was started on heparin drip in the emergency room, continue this for now Check 2D echo Eventual transition to NOAC, will likely stay on indefinitely secondary to diagnosed atrial fibrillation (2) Atrial fibrillation: Plan: Patient was previously on anticoagulation but this did indicate discontinued on previous admission Patient has a [id number] score of 2, should likely remain on anticoagulation as she is actively in rate controlled atrial fibrillation. Continue other medications as ordered (3) Cryptococcal meningitis: Plan: I am concerned that the fluconazole may be causing some of the patient's nausea symptoms but she does need to remain on current dosing of 400 mg daily for now Patient does have a standing appointment with gastroenterology later this week, consider consulting them to see her while she is in the hospital (4) Hypokalemia: Plan: Replete potassium as per ER (5) Diabetes: Plan: Placed on sliding scale. Okay to continue long-acting insulin (Toujeo or pharmacy equivalent) as long as patient is maintaining p.o. intake History of Present Illness Chief Complaint: Shortness of breath, nausea vomiting Primary Care Provider: Brendon Farfan MD This is a 61-year-old female past med history of paroxysmal atrial fibrillation, formally on anticoagulation and recent cryptococcal meningitis, treated at [facility] that presents today with shortness of breath. Patient is a good historian is accompanied by her son. Patient was discharged from [facility] on 03/20. This is after being transferred from this facility secondary to diagnosed cryptococcal meningitis. At the time, patient was treated with 2 weeks of Amphotericin and was told that she will need to continue fluconazole at 400 mg until 05/12 and then decrease to 200 mg daily for the next year. Patient was discharged and was compliant with this therapy. After discharge, she tells me she was having significant nausea with some vomiting. She also had constipation that was severe enough that she did return to this emergency room on 04/01. She apparently had a large bowel movement at that time and was discharged in the emergency room without admission. Patient told me that she became concerned that she was having some unusual shortness of breath. She describes this as a "catching of her breath" as if she cannot breathe fully. There is no associated with activity. There is no pleuritic or other type of chest pain. Patient states that she saw her primary care physician about a week ago and was sent for a routine outpatient CT scan of the chest. This resulted in multiple PEs in the bilateral lower lobes and the patient was told to present to the emergency room for further evaluation. Doppler study performed in the ER also showed a DVT in the left peroneal vein. The time my evaluation, patient is in no cardiopulmonary distress. She seems to be comfortable without supplemental oxygen, vitals are stable with an O2 sat of 97%. Allergies Allergy/AdvReac Type Severity Reaction Status Date / Time Penicillins Allergy Intermediate Hives Verified 04/01/22 21:40 atorvastatin Allergy Unknown CAN'T Verified 04/01/22 21:40 REMEMBER gemfibrozil [From Lopid] Allergy Unknown CAN'T Verified 04/01/22 21:40 REMEMBER acetaminophen [From Tylenol] AdvReac Severe CAN NOT Verified 04/01/22 21:40 TAKE D/T LIVER ISSUES ibuprofen AdvReac Severe liver Verified 04/01/22 21:41 issues rosuvastatin AdvReac Intermediate Muscle Pain Verified 04/01/22 21:40 Home Medications Medication Instructions Recorded Confirmed Type aspirin 81 mg tablet,delayed 81 mg PO HS 06/05/19 04/01/22 History release multivitamin 1 tab PO QAM 09/07/19 04/01/22 History Contour Next Test Strips (blood #300 ea 12/29/20 03/26/22 Rx sugar diagnostic) blood-glucose sensor (Dexcom G6 #3 ea 01/22/21 03/26/22 History Sensor) blood-glucose transmitter (Dexcom #1 ea 01/22/21 03/26/22 History G6 Transmitter) mirtazapine 30 mg tablet 30 mg PO HS #90 tabs 05/06/21 04/01/22 Rx venlafaxine 150 mg 300 mg PO HS #180 caps 07/01/21 04/01/22 Rx capsule,extended release 24 hr (Effexor XR) Omnipod Dash Pods (Gen 4) (insulin #45 ea 09/15/21 03/26/22 Rx pump cartridge) acetone (urine) test (Ketostix) #50 ea 10/14/21 03/26/22 Rx pen needle, diabetic 32 gauge x #120 ea 11/06/21 03/26/22 Rx 5/32" (BD Ultra-Fine Jody Pen Needle) insulin aspart U-100 100 unit/mL 0 unit subcut TIDM 03/01/22 04/01/22 History (3 mL) subcutaneous pen insulin glargine U-300 conc 300 68 unit subcut QPM 03/01/22 04/01/22 History unit/mL (1.5 mL) subcutaneous pen (Toujeo SoloStar U-300 Insulin) fluconazole 100 mg tablet 200 mg PO DAILY #60 tabs 04/16/22 Rx metoprolol succinate 25 mg 25 mg PO QAM #90 tabs 04/16/22 Rx tablet,extended release 24 hr ondansetron 4 mg disintegrating 4 mg PO Q6 PRN nausea and vomiting 04/16/22 Rx tablet #60 tabs Past Med/Surg History Medical History Anxiety Cirrhosis of liver FOLLOWS W/ [facility] Stable currently Depression Diabetes mellitus, type 2 IDDM Glucose fluctuates - since Covid in December 2020 On insulin pump Follows with endocrinology Dupuytren's contracture of hand Bilateral hands Dyslipidemia History of COVID-12 January 2021 > [facility], not hospitalized, fever, ear pain- did give infusion in ER No current issues Hypertension IBS (irritable bowel syndrome) Stable Insomnia Kidney stones FOLLOWS WITH DR FUCHS No current issues - monitoring currently Surgical History History of cystoscopy WITH STENTS AND STONE BASKETING History of lithotripsy History of tonsillectomy and adenoidectomy History of total hip arthroplasty LEFT Hx laparoscopic cholecystectomy Hx of colonoscopy Hx of surgical amputation of finger left pinky Hx of total hysterectomy GERALD WITH BSO Hx of tubal ligation Hx of wisdom tooth extraction Family History Father , age 75 Family history of diabetes mellitus Coronary heart disease Brother Family history of diabetes mellitus Mother , age 67 Family history of diabetes mellitus Heart disease Hypertension Grandfather (Paternal) Family history of diabetes mellitus Grandmother (Paternal) Family history of diabetes mellitus Denies family history of Ovarian cancer Breast cancer Colorectal cancer Social History Smoking Status: Former smoker Cigarettes Per Day: 06/2018; Number of Years Since Quit: 4; Second Hand Exposure: Yes; Hx Alcohol Use: No Hx Substance Use: No Preferred Language: [place] Citizen Communication Ability: Effective Visual Impairment: No Limitations Blind Lacer Required: No Beliefs That Will Affect Care: None marital status: Current Living Situation: Alone current occupational status: employed and disabled current occupation: [employer] does have disability for diabetes- insurance helps Feels Safe at Home: Yes Childhood Exposure to Second-Hand Smoke: No caffeine: Yes Dental Care, Regularly: No Physical Activity Frequency: Does not Exercise Seatbelt Use: always Sunscreen Use: Yes Assistive Devices: None Review of Systems Constitutional: no fever, no chills, no weakness, no weight loss and no weight gain Eyes: as per Subjective / HPI Respiratory: + dyspnea; no cough, no chest congestion and no dyspnea on exertion Cardiovascular: no chest pain, no orthopnea, no palpitations, no lightheadedness and no edema Gastrointestinal: + nausea, + vomiting and + constipation; no abdominal pain and no diarrhea/loose stools Genitourinary: no dysuria, no difficulty urinating, no urinary frequency, no urinary hesitancy, no urinary urgency and no flank pain Musculoskeletal: no back pain, no neck pain, no joint pain, no stiffness and no myalgia Integumentary: no rash Neurologic: no gait abnormality, no unsteadiness, no falls and no generalized weakness Physical Exam Constitutional: cooperative; no acute distress Neck: trachea midline, no thyromegaly Respiratory: normal respiratory effort Auscultation: lungs clear to auscultation bilaterally; no crackles, no rales, no rhonchi and no wheezes Cardiovascular: Rate/Rhythm: + irregularly irregular Heart Sounds: normal S1 and normal S2 Trace lower extremity edema on the right, possibly 1+ on the left. Gastrointestinal (Abdomen): Inspection/Auscultation: abdomen normal to inspection Percussion/Palpation: abdomen soft; abdomen nontender, no guarding, abdomen not rigid and no hepatosplenomegaly Skin: no rashes, warm and dry Results & Data Results & [facility] ([facility]) Vital Signs (Past 12 Hours) Vital Signs Temp Pulse Pulse Resp BP BP Pulse Ox 04/19/22 11:21 65 97 04/19/22 11:21 64 20 140/74 97 04/19/22 10:25 36.6 C 67 18 153/74 H 96 O2 Del Method 04/19/22 11:21 Room Air 04/19/22 11:21 Room Air 04/19/22 10:25 Room Air Medications Administered Laboratory Results WBC 6.19 K/ul (4.8-10.8) 04/19/22 11:20 RBC 4.03 M/uL (3.93-5.22) 04/19/22 11:20 Hgb 10.9 g/dl (12.0-16.0) L 04/19/22 11:20 Hct 34.4 % (34.1-44.9) 04/19/22 11:20 MCV 85.4 fL (80.0-100.0) 04/19/22 11:20 MCH 27.0 pg (25.0-34.0) 04/19/22 11:20 MCHC 31.7 g/dL (32.0-36.0) L 04/19/22 11:20 RDW Std Deviation 50.6 fL (36.4-46.3) H 04/19/22 11:20 RDW Coeff of Jun 16.1 % (11.5-14.5) H 04/19/22 11:20 Plt Count 170 K/uL (130-400) 04/19/22 11:20 MPV 12.0 fL (9.4-12.3) 04/19/22 11:20 Immature Gran % (Auto) 0.2 % 04/19/22 11:20 Neut % (Auto) 64.9 % 04/19/22 11:20 Lymph % (Auto) 25.5 % 04/19/22 11:20 [place] % (Auto) 6.9 % 04/19/22 11:20 Eos % (Auto) 1.5 % 04/19/22 11:20 Baso % (Auto) 1.0 % 04/19/22 11:20 Neut # (Auto) 4.02 K/uL (1.4-6.5) 04/19/22 11:20 Lymph # (Auto) 1.58 K/uL (1.2-3.4) 04/19/22 11:20 [place] # (Auto) 0.43 K/uL (0.24-0.82) 04/19/22 11:20 Eos # (Auto) 0.09 K/uL (0-0.50) 04/19/22 11:20 Baso # (Auto) 0.06 K/uL (0-0.2) 04/19/22 11:20 Immature Gran # (Auto) 0.01 K/uL (0.00-0.02) 04/19/22 11:20 PT 12.9 Seconds (9.0-12.0) H 04/19/22 11:20 INR 1.2 (0.9-1.1) H 04/19/22 11:20 APTT 24.5 Seconds (21.0-31.0) 04/19/22 11:20 PTT Ratio 0.9 04/19/22 11:20 D-Dimer 6290 ug/L FEU (0-500) H* 04/19/22 11:20 Sodium 142 mmol/L (136-145) 04/19/22 11:20 Potassium 2.4 mmol/L (3.5-5.1) L* 04/19/22 11:20 Chloride 103 mmol/L (98-107) 04/19/22 11:20 Carbon Dioxide 27 mmol/L (21-32) 04/19/22 11:20 Anion Gap 12 (3-11) H 04/19/22 11:20 BUN 14 mg/dl (6-23) 04/19/22 11:20 Creatinine 1.35 mg/dl (0.6-1.2) H 04/19/22 11:20 Est Cr Clr Drug Dosing 41.7 ml/min 04/19/22 11:20 Est GFR ( Amer) 48.6 ml/min 04/19/22 11:20 Est GFR (Non-Af Amer) 42.0 ml/min 04/19/22 11:20 BUN/Creatinine Ratio 10.4 (10-20) 04/19/22 11:20 Glucose 199 mg/dl (70-99(Fasting)) H 04/19/22 11:20 Calcium 8.7 mg/dl (8.5-10.1) 04/19/22 11:20 Magnesium 1.4 mg/dl (1.7-2.4) L 04/19/22 11:20 Total Bilirubin 0.9 mg/dl (0.2-1.0) 04/19/22 11:20 AST 50 U/L (13-39) H 04/19/22 11:20 ALT 18 U/L (7-52) 04/19/22 11:20 Alkaline Phosphatase 254 U/L (34-104) H 04/19/22 11:20 Troponin I High Sens 22.9 pg/ml (0-14) H D 04/19/22 11:20 B-Natriuretic Peptide 417 pg/ml (0-100) H 04/19/22 11:39 Total Protein 7.1 gm/dl (6.0-8.3) 04/19/22 11:20 Albumin 3.4 gm/dl (3.4-5.0) 04/19/22 11:20 Globulin 3.7 gm/dl (2.5-4.0) 04/19/22 11:20 Albumin/Globulin Ratio 0.9 (0.9-2) 04/19/22 11:20 SARS-CoV-2, RNA, NAAT NEGATIVE (NEGATIVE) 04/19/22 11:20 Impressions Venous Doppler Study 04/19/22 10:51 BILATERAL LOWER EXTREMITY VENOUS DOPPLER CLINICAL HISTORY: Pulmonary embolus. COMPARISON STUDY: [Extremity venous Doppler ultrasound August 14, 2018. TECHNIQUE: Sonography of the deep venous system of the bilateral lower extremities was performed. Compression and augmentation were evaluated. FINDINGS: There is no deep venous thrombus within the right lower extremity. Note is made of deep venous thrombus within the left peroneal vein. No additional sites of deep venous thrombus within the lower extremities are identified. IMPRESSION: Deep venous thrombus within the left peroneal vein. ACT 112: Negative or not required by law. Electronically signed by: Godwin Burden M.D. 04/19/2022 12:18 PM Chest X-Ray 04/19/22 10:52 XR chest 1V portable HISTORY: 61 years-old Female SOB acute shortness of breath COMPARISON: Chest radiographs 04/08/2022 TECHNIQUE: Portable AP view of the chest FINDINGS: The cardiac silhouette is enlarged. Atherosclerosis of the aorta. Pulmonary vascular congestion with mild interstitial coarsening. No pneumothorax, large pleural effusion or lobar airspace consolidation. Bones appear grossly intact. IMPRESSION: Cardiomegaly with pulmonary vascular congestion. ACT 112: Negative or not required by law. The above report was generated using voice recognition software. It may contain grammatical, syntax or spelling errors. Electronically signed by: Markos Tineo M.D. 04/19/2022 11:26 AM PG Care Time/CCT Total # of Minutes Spent Total Time Spent with Patient: Total time spent is greater than 50% in coordination of care (as documented) at patient's floor/unit and/or counseling patient: Coding Level of Care Code 00658 Initial Inpt Care Lvl 3 Diagnoses Pulmonary emboli I26.99 Atrial fibrillation I48.91 Cryptococcal meningitis B45.1 Hypokalemia E87.6 Diabetes E11.9
[2022-04-19] MEDS: HEPARIN SODIUM/DEXTROSE 25,000 UNITS/500 ML BAG IV SCH (14:25)
[2022-04-19] MEDS ORDERED: ONDANSETRON INJ 2 MG/ML 2 ML VIAL IV PRN (15:35)
[2022-04-19] MEDS ORDERED: GLUCOSE 10 TAB/TUBE PO PRN (15:35)
[2022-04-19] MEDS ORDERED: DEXTROSE 50% 50 ML SYRINGE IV PRN (15:35)
[2022-04-19] MEDS ORDERED: GLUCOSE 40% GEL 15 GM TUBE PO PRN (15:35)
[2022-04-19] MEDS ORDERED: CARBOHYDRATES FOR HYPOGLYCEMIA PO PRN (15:35)
[2022-04-19] MEDS ORDERED: ACETAMINOPHEN 325 MG TAB PO PRN (15:35)
[2022-04-19] MEDS ORDERED: GLUCAGON FOR INJ 1 MG VIAL SQ PRN (15:35)
[2022-04-19] MEDS: INSULIN ASPART PER UNIT SC SCH ×2 (17:41→20:30)
[2022-04-19] MEDS: ASPIRIN 81 MG ECTAB PO SCH (20:32)
[2022-04-19] MEDS: MIRTAZAPINE TAB 15 MG TAB PO SCH (20:32)
[2022-04-19] MEDS: VENLAFAXINE HCL XR 150 MG CAPXR PO SCH (20:32)
[2022-04-19] MEDS ORDERED: LANTUS PER UNIT CHARGE SQ ONE (21:00)
[2022-04-19 21:30] LABS: Partial Thromboplastin Ratio 4.2
[2022-04-19 21:35] LABS: Partial Thromboplastin Time 114.2 Seconds (21.0-31.0)
[2022-04-19] MEDS ORDERED: COUGH DROP (SUGAR FREE) LOZ 24 LOZ/1 BOX BUCCAL ONE (21:54)
[2022-04-20 06:12] LABS: Basophils # (auto) 0.06 K/uL (0-0.2); Basophils % (auto) 0.9 %; Eosinophils # (auto) 0.13 K/uL (0-0.50); Eosinophils % (auto) 1.9 %; Hematocrit (blood only) 30.3 % (34.1-44.9); Hemoglobin 9.9 g/dl (12.0-16.0); Immature Granulocytes # (auto) 0.01 K/uL (0.00-0.02); Immature Granulocytes % (auto) 0.1 %; Lymphocytes # (auto) 2.06 K/uL (1.2-3.4); Lymphocytes % (auto) 30.1 %; Mean Corpuscular Hgb Conc 32.7 g/dL (32.0-36.0); Mean Corpuscular Volume 82.8 fL (80.0-100.0); Mean Platelet Volume 11.9 fL (9.4-12.3); Monocytes # (auto) 0.59 K/uL (0.24-0.82); Monocytes % (auto) 8.6 %; Neutrophils # (auto) 3.99 K/uL (1.4-6.5); Neutrophils % (auto) 58.4 %; Platelet Count 155 K/uL (130-400); RDW Standard Deviation 48.9 fL (36.4-46.3); Red Blood Count 3.66 M/uL (3.93-5.22); White Blood Count 6.84 K/ul (4.8-10.8)
[2022-04-20 06:47] LABS: BUN Creatinine Ratio 11.4 (10-20); Calcium 7.7 mg/dl (8.5-10.1); Creatinine Clr Calc Pharmacy 49.5 ml/min; Est GFR (African American) 59.7 ml/min; Est GFR (Non-African American) 51.5 ml/min; Potassium 2.4 mmol/L (3.5-5.1)
[2022-04-20 06:52] LABS: Partial Thromboplastin Ratio 2.9
[2022-04-20 07:00] LABS: Partial Thromboplastin Time 79.9 Seconds (21.0-31.0)
[2022-04-20 07:12] LABS: Estimated Average Glucose 180 mg/dl; Hemoglobin A1C 7.9 % (4.5-5.6)
[2022-04-20] MEDS ORDERED: MAGNESIUM SULFATE / D5W 1 GM/100 ML BAG IV ONE (07:58)
--- NOTE | 2022-04-20 08:07 | Hospitalist Progress Note ---
Date of Service April 20, 2022 Assessment & Plan (1) Pulmonary emboli: Plan: Lynne is a 59-year-old female with a history of cryptococcal meningitis and A. fib formerly on anticoagulation who scented with dyspnea and was found to have pulmonary emboli and left peroneal DVT. Hospital evaluation also showed QT prolongation to 590 and hypokalemia with hypomagnesemia. Patient is on fluconazole for treatment of cryptococcal meningitis which is been dose reduced due to QT, alternatives are being investigated by ID however cessation of this at time of admission is not recommended. Pulmonary emboli CTA: Segmental and subsegmental pulmonary of bilateral lower lobes, cirrhotic liver disease with small volume of ascites, 5 mm left upper lobe solid pulmonary nodule recommended for either no or optional follow-up at 12 months Admitted to monitoring On heparin gtt. TTE: Pending Goal transition to DOAC No tachycardia, normal oxygen saturation on room air 04/20. No evidence of hemodynamic instability at bedside assessment - No indication for thrombolytics/TPA Nausea/vomiting Requires ongoing admission for severe electrolyte derangement below ? Related to fluconazole Constipation 04/01 which improved after an ER visit without admission Presented to PCP for shortness of breath, CT was remarkable for PEs and DVT was found in left peroneal Patient does feel this has been improved with her medication adjustments and electrolyte repletion today. Continue to follow CT A/P 04/01/2022 with cirrhotic liver morphology, no infectious or inflammatory findings, bilateral nephrolithiasis, trace pleural effusions, small volume of abdominal pelvic ascites improved from prior, subacute endplate fracture of T12 Defer additional Zofran due to severe QT prolongation w/ hypomagnesemia. May trial doxylamine/pyridoxine, H2 blockers, low-dose Ativan if needed however would avoid Zofran, Compazine, and Reglan at this time Hypomagnesemia, hypokalemia In the setting of nausea/vomiting and poor intake, suspect crush Severely hypokalemic to 2.4, hypomagnesemic following repletion to 1.4 Currently with QT 590 on fluconazole for treatment of cryptococcal meningitis, dose halved and pending additional ID Recs Maintain magnesium goal of 2, potassium goal of 4 IV and oral magnesium repletion ordered, 40 M EQ KCl riders +20 M EQ 3 times daily x3 doses ordered. 4-hour BMP check and adjust as needed EKG repeat after electrolyte repletion above A. fib Anticoagulation previously discontinued [id number] of 2, and rate controlled A. fib on admission Electrolyte goals as noted Anticipate conversion to DOAC for stroke prophylaxis Cryptococcal meningitis ? Nausea/vomiting with fluconazole on admission Discharge to [facility] 03/20 for cryptococcal meningitis. Was treated with 2 weeks of Amphotericin, was placed on fluconazole intended to continue 400 mg until 05/12 and then decrease to 200 daily for 1 year. Has been compliant with his therapy, but has had nausea/vomiting while on Initially continued on dose of 400 mg, this was dose reduced to 200 on admission after discussion with infectious disease for concern of QT prolongation 590 ID reviewing additional options for potential conversion and treatment If nausea/vomiting persistent and does not improve with above treatment, may consult gastroenterology. Patient was to see later in the week. He is improving on assessment 04/21 Type 2 diabetes Goal 1001 40 Home regimen Toujeo 68 units every afternoon Continued on glargine 68 units every afternoon with SSI BSG 118 fasting this morning, adequate control DVT prophylaxis: Anticoagulated as above Diet: Diabetic Disposition: Telemetry, requires ongoing hospitalization for management of severe electrolyte abnormalities and QT prolongation (2) Atrial fibrillation: (3) Cryptococcal meningitis: (4) Hypokalemia: (5) Diabetes: Admission and Anticipated Discharge Date Admission Date: April 19, 2022 Subjective Seen the bedside this morning. She reports that she is not having shortness of breath today, and that this is a improvement. Reports prior to this she had felt like every second breath she needed a deep breath to relieve dyspnea. Also notes that her nausea with daily vomiting over the past month seems to be improved, did have 1 episode today but otherwise feels greatly improved. Notes [employer] had not really worked for her previously. No diarrhea. Denies chest pain, chest pressure, lightheadedness, dizziness, focal weakness today. Is awaiting ID recommendations for the consult, did review case including PEs, fluconazole and effect on QT, and her QT prolongation. No questions at bedside. Review of Systems Review of Systems: All systems reviewed & are unremarkable except as noted in Subjective Physical Exam Physical Exam: General: A&Ox3. NAD. Cooperative. HEENT: Atraumatic, normocephalic. Vision and hearing intact, pupils equal and reactive Pulm: CTAB A&P. -wheezes, -rales, -rhonchi. Symmetrical chest rise. No increase in work of breathing. No respiratory distress. Cardiac: RRR, sinus on monitor, -mrg. Radial pulses intact and symmetrical. Abdominal: Nontender, nondistended, soft. BS present. Results & Data Results & Data ([facility]) Vital Signs (Past 12 Hours) Vital Signs Temp Pulse Pulse Resp BP Pulse Ox O2 Del Method 04/20/22 07:47 36.8 C 66 19 153/75 H 93 Room Air 04/20/22 02:59 36.8 C 66 18 134/73 93 Room Air 04/19/22 23:17 74 04/19/22 23:05 36.7 C 70 18 133/65 93 Room Air PG Care Time/CCT Total # of Minutes Spent Total Time Spent with Patient: Total time spent is greater than 50% in coordination of care (as documented) at patient's floor/unit and/or counseling patient: Coding Level of Care Code 59167 Subseq Hosp Care Lvl 3 Diagnoses Pulmonary emboli I26.99 Atrial fibrillation I48.91 Cryptococcal meningitis B45.1 Hypokalemia E87.6 Diabetes E11.9
[2022-04-20] MEDS: METOPROLOL SUCC 25MG EXT REL TAB PO SCH (08:35)
[2022-04-20] MEDS: FLUCONAZOLE 100 MG TAB PO SCH (08:35)
[2022-04-20] MEDS: INSULIN ASPART PER UNIT SC SCH ×4 (08:40→20:29)
[2022-04-20] MEDS: POTASSIUM CHLORIDE CRTAB 20 MEQ TABCR PO SCH ×2 (08:40→14:05)
[2022-04-20] MEDS: POTASSIUM CHLORIDE / WTR 10 MEQ/100 ML PLCT IV SCH ×4 (08:42→11:49)
[2022-04-20] MEDS: MAGNESIUM OXIDE 400 MG TAB PO SCH ×2 (08:51→20:11)
[2022-04-20] MEDS ORDERED: FLUCONAZOLE 100 MG TAB PO SCH (09:00)
--- NOTE | 2022-04-20 12:50 | XCELERA ---
[id number] \\[id number]
[2022-04-20 14:03] LABS: Partial Thromboplastin Ratio 2.4
[2022-04-20] MEDS: HEPARIN SODIUM/DEXTROSE 25,000 UNITS/500 ML BAG IV SCH (14:04)
--- NOTE | 2022-04-20 14:08 | Electrocardiogram Report ---
Test Reason : Blood Pressure : / mmHG Vent. Rate : 064 BPM Atrial Rate : 064 BPM P-R Int : 144 ms QRS Dur : 112 ms QT Int : 572 ms P-R-T Axes : 039 -43 040 degrees QTc Int : 590 ms Poor data quality, interpretation may be adversely affected Normal sinus rhythm Left axis deviation Diffuse Nonspecific T wave abnormality Abnormal ECG When compared with ECG of 12-MAR-2022 00:38, Atrial fibrillation no longer present HR has decreased by 102 bpm QRS duration has decreased Confirmed by Lukas Salazar ([id number]) on 04/20/2022 2:08:02 PM Referred By: Alvino Farfan Confirmed By:Lukas Salazar
[2022-04-20 14:16] LABS: BUN Creatinine Ratio 10.8 (10-20); Calcium 8.2 mg/dl (8.5-10.1); Creatinine Clr Calc Pharmacy 50.9 ml/min; Est GFR (African American) 61.6 ml/min; Est GFR (Non-African American) 53.2 ml/min; Magnesium 1.7 mg/dl (1.7-2.4); Potassium 3.2 mmol/L (3.5-5.1)
[2022-04-20 14:30] LABS: Partial Thromboplastin Time 66.9 Seconds (21.0-31.0)
[2022-04-20] MEDS ORDERED: LORazepam 0.25 MG in SYRINGE 0.25 ML IV PRN (17:37)
[2022-04-20] MEDS ORDERED: PYRIDOXINE HCL 50 MG TAB PO PRN (17:37)
[2022-04-20] MEDS: ASPIRIN 81 MG ECTAB PO SCH (20:10)
[2022-04-20] MEDS: MIRTAZAPINE TAB 15 MG TAB PO SCH (20:11)
[2022-04-20] MEDS: VENLAFAXINE HCL XR 150 MG CAPXR PO SCH (20:12)
[2022-04-20] MEDS ORDERED: POTASSIUM CHLORIDE CRTAB 20 MEQ TABCR PO SCH (21:00)
[2022-04-20] MEDS ORDERED: LANTUS PER UNIT CHARGE SQ SCH (21:00)
[2022-04-20 21:59] LABS: Partial Thromboplastin Time 55.8 Seconds (21.0-31.0)
[2022-04-21 07:12] LABS: Basophils # (auto) 0.06 K/uL (0-0.2); Basophils % (auto) 0.8 %; Eosinophils # (auto) 0.14 K/uL (0-0.50); Eosinophils % (auto) 1.9 %; Hematocrit (blood only) 32.1 % (34.1-44.9); Hemoglobin 10.3 g/dl (12.0-16.0); Immature Granulocytes # (auto) 0.03 K/uL (0.00-0.02); Immature Granulocytes % (auto) 0.4 %; Lymphocytes # (auto) 1.88 K/uL (1.2-3.4); Lymphocytes % (auto) 25.3 %; Mean Corpuscular Hemoglobin 27.2 pg (25.0-34.0); Mean Corpuscular Hgb Conc 32.1 g/dL (32.0-36.0); Mean Corpuscular Volume 84.9 fL (80.0-100.0); Mean Platelet Volume 11.3 fL (9.4-12.3); Monocytes # (auto) 0.59 K/uL (0.24-0.82); Monocytes % (auto) 7.9 %; Neutrophils # (auto) 4.73 K/uL (1.4-6.5); Neutrophils % (auto) 63.7 %; Platelet Count 173 K/uL (130-400); RDW Coefficient of Variation 16.4 % (11.5-14.5); RDW Standard Deviation 51.3 fL (36.4-46.3); Red Blood Count 3.78 M/uL (3.93-5.22); White Blood Count 7.43 K/ul (4.8-10.8)
[2022-04-21 07:33] LABS: Calcium 7.9 mg/dl (8.5-10.1); Creatinine Clr Calc Pharmacy 47.6 ml/min; Est GFR (African American) 57.2 ml/min; Est GFR (Non-African American) 49.4 ml/min; Magnesium 1.7 mg/dl (1.7-2.4)
[2022-04-21 07:44] LABS: Partial Thromboplastin Ratio 2.3
--- NOTE | 2022-04-21 08:29 | Hospitalist Progress Note ---
Date of Service April 21, 2022 Assessment & Plan (1) Pulmonary emboli: Plan: Lynne is a 59-year-old female with a history of cryptococcal meningitis and A. fib formerly on anticoagulation Presented with dyspnea and was found to have pulmonary emboli and left peroneal DVT. Hospital evaluation also showed QT prolongation to 590 and hypokalemia with hypomagnesemia. Patient is on fluconazole for treatment of cryptococcal meningitis which is been dose reduced due to QT, alternatives are being investigated by ID however cessation of this at time of admission is not recommended. Pulmonary emboli CTA: Segmental and subsegmental pulmonary of bilateral lower lobes, cirrhotic liver disease with small volume of ascites, 5 mm left upper lobe solid pulmonary nodule recommended follow-up transition to Xarelto Echo preserved EF, elevated right heart pressures No tachycardia, normal oxygen saturation on room air 04/20. Nausea/vomiting with associated electrolyte derangement -improved with reduced fluconazole, exacerbated by kcl po CT A/P 04/01/2022 with cirrhotic liver morphology, no infectious or inflammatory findings, bilateral nephrolithiasis, trace pleural effusions, small volume of abdominal pelvic ascites improved from prior, subacute endplate fracture of T12 Defer additional Zofran due to severe QT prolongation w/ hypomagnesemia, low- dose Ativan if needed however would avoid Zofran, Compazine, and Reglan at this time Hypomagnesemia, hypokalemia Currently with QT 590 on fluconazole for treatment of cryptococcal meningitis, dose halved and pending additional ID Recs to continue at lower dose or alternatively Cresemba Maintain magnesium goal of 2, potassium goal of 4 IV and oral magnesium repletion ordered, 40 M EQ KCl riders +20 M EQ 3 times daily x3 doses ordered. 4-hour BMP check and adjust as needed A. fib Anticoagulation previously discontinued [id number] of 2, and rate controlled A. fib on admission Electrolyte goals as noted conversion to DOAC for stroke prophylaxis Cryptococcal meningitis ? Nausea/vomiting with fluconazole on admission Discharge to [facility] 03/20 for cryptococcal meningitis. Was treated with 2 weeks of Amphotericin, was placed on fluconazole intended to continue 400 mg until and then decrease to 200 daily for 1 year. Has been compliant with his therapy, but has had nausea/vomiting while on Initially continued on dose of 400 mg, this was dose reduced to 200 on admiss ion after discussion with infectious disease for concern of QT prolongation 590 ID reviewing additional options for potential conversion and treatment If nausea/vomiting persistent and does not improve with above treatment, may consult gastroenterology. Patient was to see later in the week. Type 2 diabetes Goal 1001 40 Home regimen Toujeo 68 units every afternoon Continued on glargine 68 units every afternoon with SSI BSG 118 fasting this morning, adequate control DVT prophylaxis: xarelto transition Diet: Diabetic Disposition: Telemetry, requires ongoing hospitalization for management of persistent nausea and severe electrolyte abnormalities afib and QT prolongation (2) Atrial fibrillation: (3) Cryptococcal meningitis: (4) Hypokalemia: (5) Diabetes: Admission and Anticipated Discharge Date Admission Date: April 19, 2022 Subjective pt has continued N/V perhaps encouraged by KCL po still with low potassium and magnesium Qtc has improved Still very weak and tired Review of Systems Review of Systems: Moderate distress and fatigue no headache, no visual changes no speech or swallowing issues no chest pain, pressure or palpitations no shortness of breath, cough or wheezes no abdominal pain, continued nausea no vomiting no dysuria, hematuria or frequency no focal joint pain or swelling no back pain, CVA tenderness or radicular pain no bruising, bleeding or rashes no focal signs of weakness or numbness or altered sensation no complaints of anxiety or depression.. Physical Exam Physical Exam: The patient appeared well nourished and normally developed. Vital signs as documented. Head exam is normocephalic atraumatic Neck is without JVD, thyromegaly, or carotid bruits. Lungs are clear to auscultation, no focal loss of breath sounds Cardiac exam, Rhythm is regular.. No murmurs, rubs or gallops. Abdominal exam reveals normal bowel sounds, soft non tender, no masses Extremities are nonedematous and both pedal pulses are present Neurologic exam is alert and oriented, no focal loss of strength or sensation Skin is without bruises or rashes Psychologically is without concerns for anxiety or depression.. Results & Data Results & Data ([facility]) Vital Signs (Past 12 Hours) Vital Signs Temp Pulse Pulse Resp BP Pulse Ox O2 Del Method 04/21/22 07:00 68 04/21/22 07:22 97.9 F 65 17 138/76 93 Room Air 04/21/22 03:49 98.1 F 67 12 114/62 94 Room Air 04/20/22 23:07 97.9 F 64 12 119/67 93 Room Air PG Care Time/CCT Total # of Minutes Spent Total Time Spent with Patient: Total time spent is greater than 50% in coordination of care (as documented) at patient's floor/unit and/or counseling patient: Coding Level of Care Code 71817 Subseq Hosp Care Lvl 3 Diagnoses Pulmonary emboli I26.99 Atrial fibrillation I48.91 Cryptococcal meningitis B45.1 Hypokalemia E87.6 Diabetes E11.9
[2022-04-21] MEDS: MAGNESIUM OXIDE 400 MG TAB PO SCH ×2 (08:31→21:17)
[2022-04-21] MEDS: FLUCONAZOLE 100 MG TAB PO SCH (08:31)
[2022-04-21] MEDS: INSULIN ASPART PER UNIT SC SCH ×4 (08:32→22:04)
[2022-04-21] MEDS: METOPROLOL SUCC 25MG EXT REL TAB PO SCH (08:32)
[2022-04-21] MEDS ORDERED: MAGNESIUM SULFATE / D5W 1 GM/100 ML BAG IV ONE (08:45)
[2022-04-21] MEDS ORDERED: POTASSIUM CHLORIDE CRTAB 20 MEQ TABCR PO SCH (09:00)
[2022-04-21] MEDS ORDERED: POTASSIUM CHLORIDE 10 MEQ / 100ML WTR IV STA (10:51)
[2022-04-21] MEDS: RIVAROXABAN 15 MG TAB PO SCH ×2 (12:30→18:43)
[2022-04-21] MEDS: POTASSIUM CHLORIDE / WTR 10 MEQ/100 ML PLCT IV SCH ×3 (12:30→13:52)
[2022-04-21] MEDS ORDERED: PHARMACY GLYCEMIC MGMT CONSULT PRN (13:42)
--- NOTE | 2022-04-21 13:42 | Pharmacy Report ---
Pharmacy Glycemic Short Note 2 - Date of Service April 21, 2022 - Glycemic Short BSG Results (Last 24 hours): 04/20/22 04/20/22 04/20/22 12:57 16:33 20:14 Glucose 128 H POC Glucose 122 H 166 H 04/21/22 04/21/22 04/21/22 06:57 07:19 11:13 Glucose 80 POC Glucose 77 151 H OUTPATIENT ANTIDIABETIC REGIMEN: * Toujeo 68 units HS * Novolog scale * 7.9% on 04/20/22 ASSESSMENT: * Ms Ye is a 61 y/o F admitted with acute PE. Patient was previously hospitalized in February with cryptococcal meningitis. During that hospitalization, patient had significant nausea but was on Lantus 20 units da jayce + Novolog CF 25 CR 5. * Yesterday, BSGs were 85-129-079-166 mg/dL. Patient received 86 units of insulin (68 units of basal and 18 units of bolus). * BSGs today are 77-151 mg/dL. Patient ate all her breakfast but no lunch due to nausea. Pharmacy consulted after lunch BSG. * Will resume previous regimen that was effective for patient. PLAN FOR INPATIENT GLYCEMIC CONTROL: * Basal insulin * Lantus 20 units SQ HS * Bolus insulin * NovoLog per scale ACHS or Q6hrs while NPO * Goal Range: Low 110 mg/dL - High 140 mg/dL * Correction Factor: 25 mg/dL/unit * Nutritional / Prandial insulin per carb ratio of 1 unit per 5 grams CHO consumed
--- NOTE | 2022-04-21 14:15 | Electrocardiogram Report ---
Test Reason : Blood Pressure : / mmHG Vent. Rate : 066 BPM Atrial Rate : 066 BPM P-R Int : 150 ms QRS Dur : 110 ms QT Int : 458 ms P-R-T Axes : 061 -46 080 degrees QTc Int : 480 ms Normal sinus rhythm Left anterior fascicular block Nonspecific ST and T wave abnormality Abnormal ECG When compared with ECG of 19-APR-2022 11:21, No significant change Confirmed by Arvin Green ([id number]) on 04/21/2022 2:14:40 PM Referred By: Alvino Farfan Confirmed By:Arvin Green
[2022-04-21] MEDS ORDERED: LANTUS PER UNIT CHARGE SQ SCH (21:00)
[2022-04-21] MEDS: VENLAFAXINE HCL XR 150 MG CAPXR PO SCH (21:18)
[2022-04-21] MEDS: ASPIRIN 81 MG ECTAB PO SCH (21:18)
[2022-04-21] MEDS: MIRTAZAPINE TAB 15 MG TAB PO SCH (21:18)
[2022-04-22] MEDS ORDERED: RIVAROXABAN 15 MG TAB PO SCH ×2
[2022-04-22] MEDS: FLUCONAZOLE 100 MG TAB PO SCH (08:41)
[2022-04-22] MEDS: MAGNESIUM OXIDE 400 MG TAB PO SCH (08:41)
[2022-04-22] MEDS: RIVAROXABAN 15 MG TAB PO SCH (08:42)
[2022-04-22] MEDS: METOPROLOL SUCC 25MG EXT REL TAB PO SCH (08:42)
[2022-04-22] MEDS: INSULIN ASPART PER UNIT SC SCH ×2 (08:42→11:46)
[2022-04-22 09:43] LABS: BUN Creatinine Ratio 12.9 (10-20); Calcium 8.3 mg/dl (8.5-10.1); Creatinine Clr Calc Pharmacy 48.7 ml/min; Est GFR (African American) 58.4 ml/min; Est GFR (Non-African American) 50.4 ml/min; Magnesium 1.8 mg/dl (1.7-2.4); Potassium 3.6 mmol/L (3.5-5.1)
[2022-04-22] MEDS ORDERED: Nursing to Pharmacy Communication SCH (12:45)
--- NOTE | 2022-04-22 17:34 | Discharge Summary ---
Date of Service April 22, 2022 Admission HPI Per Admitting Provider This is a 61-year-old female past med history of paroxysmal atrial fibrillation, formally on anticoagulation and recent cryptococcal meningitis, treated at [facility] that presents today with shortness of breath. Patient is a good historian is accompanied by her son. Patient was discharged from [facility] on 03/20. This is after being transferred from this facility secondary to diagnosed cryptococcal m eningitis. At the time, patient was treated with 2 weeks of Amphotericin and was told that she will need to continue fluconazole at 400 mg until 05/12 and then decrease to 200 mg daily for the next year. Patient was discharged and was compliant with this therapy. After discharge, she tells me she was having significant nausea with some vomiting. She also had constipation that was severe enough that she did return to this emergency room on 04/01. She apparently had a large bowel movement at that time and was discharged in the emergency room without admission. Patient told me that she became concerned that she was having some unusual shortness of breath. She describes this as a "catching of her breath" as if she cannot breathe fully. There is no associated with activity. There is no pl euritic or other type of chest pain. Patient states that she saw her primary care physician about a week ago and was sent for a routine outpatient CT scan of the chest. This resulted in multiple PEs in the bilateral lower lobes and the patient was told to present to the emergency room for further evaluation. Doppler study performed in the ER also showed a DVT in the left peroneal vein. The time my evaluation, patient is in no cardiopulmonary distress. She seems to be comfortable without supplemental oxygen, vitals are stable with an O2 sat of 97%. Principal Diagnosis pulmonary embolism Qt prolongation due to medication nausea and vomiting due to medication electrolyte abnormality due to vomiting Discharge Exam The patient appeared stable Vital signs as documented. Lungs are clear to auscultation and appear unlabored Cardiac exam, Rhythm is regular.. No murmurs, rubs or gallops. Abdominal exam reveals normal bowel sounds, soft non tender, no masses Extremities are nonedematous and both pedal pulses are normal. Neurologic exam is alert and oriented, no focal loss of strength or sensation Skin is without bruises or rashes Psychologically is without concerns for anxiety or depression. Discharge Data Allergies Allergy/AdvReac Type Severity Reaction Status Date / Time Penicillins Allergy Intermediate Hives Verified 04/01/22 21:40 atorvastatin Allergy Unknown CAN'T Verified 04/01/22 21:40 REMEMBER gemfibrozil [From Lopid] Allergy Unknown CAN'T Verified 04/01/22 21:40 REMEMBER acetaminophen [From Tylenol] AdvReac Severe CAN NOT Verified 04/01/22 21:40 TAKE D/T LIVER ISSUES ibuprofen AdvReac Severe liver Verified 04/01/22 21:41 issues rosuvastatin AdvReac Intermediate Muscle Pain Verified 04/01/22 21:40 Consultations 04/19/22 12:24 ED Decision to Admit Stat Ordered Studies Venous Doppler Study 04/19/22 10:51 BILATERAL LOWER EXTREMITY VENOUS DOPPLER CLINICAL HISTORY: Pulmonary embolus. COMPARISON STUDY: [Extremity venous Doppler ultrasound August 14, 2018. TECHNIQUE: Sonography of the deep venous system of the bilateral lower extremities was performed. Compression and augmentation were evaluated. FINDINGS: There is no deep venous thrombus within the right lower extremity. Note is made of deep venous thrombus within the left peroneal vein. No additional sites of deep venous thrombus within the lower extremities are identified. IMPRESSION: Deep venous thrombus within the left peroneal vein. Electronically signed by: Godwin Burden M.D. 04/19/2022 12:18 PM Chest X-Ray 04/19/22 10:52 XR chest 1V portable HISTORY: 61 years-old Female SOB acute shortness of breath COMPARISON: Chest radiographs 04/08/2022 TECHNIQUE: Portable AP view of the chest FINDINGS: The cardiac silhouette is enlarged. Atherosclerosis of the aorta. Pulmonary vascular congestion with mild interstitial coarsening. No pneumothorax, large pleural effusion or lobar airspace consolidation. Bones appear grossly intact. IMPRESSION: Cardiomegaly with pulmonary vascular congestion. Electronically signed by: Markos Tineo M.D. 04/19/2022 11:26 AM Hospital Course (1) Pulmonary emboli: CT angiogram from 04/19/2022 shows some segmental and segmental pulmonary emboli in the lower lobes this prompted admission to the hospital. Patient had venous Doppler without evidence of DVT. Initially was treated with heparin therapy and transition to Xarelto (2) Atrial fibrillation: Atrial fibrillation was rate controlled this was on her history she does not recall why she was not formally anticoagulated she will be continued on anticoagulation with Xarelto as above she is maintained on a baby aspirin and metoprolol 25 (3) Cryptococcal meningitis: Patient did have QT prolonging elongation noted which was felt possibly attributed from her fluconazole. This was reduced to 200 from 400 with the plans of keeping her on 200 for an additional year for cryptococcal meningitis. I was contacted by infectious disease from [facility] who agrees with this plan (4) Hypokalemia: Patient has severe hypokalemia and hypomagnesemia during her hospital stay secondary to nausea vomiting likely from her fluconazole. This improved with reduction of her dose (5) Diabetes: Patient will return home on Toujeo and sliding scale insulin. Total Time Total Time Spent Total Time Spent (In Minutes): It required greater than 30 minutes to prepare this patient for discharge Discharge Plan Discharge Items Patient Disposition: Home - Self-Care Reason For Visit: PE Discharge Diagnosis: Pulmonary embolism Condition on Discharge: Fair Activity: Per Instructions section Non-emergency contact: Primary Care Provider and Specialist Call non-emergency contact if: your symptoms worsen Follow-up/Referrals: Brendon Farfan MD [Primary Care Provider] - Diet: Carb Consistent or DM2 Addtl Attending Provider Instructions: Medication Instructions: please continue the lower dose of fluconazole, 200mg, for one year or as instructed by your family doctor or infectious disease specialist Your condition is typically treated with an anticoagulant. Anticoagulants will thin your blood to help prevent new clots. * You should take her medication exactly as directed. * Never skip a dose. * Never take a double dose. If you miss a dose, take it as soon as you remember. Call your Primary Care doctor if you experience any of the following: * Swelling or Pain in your leg * Sudden, continuous pain deep in a muscle * Pain that worsens when you are active or when you stand still for a long time * Chest Pain * Sudden Shortness of Breath * Rapid or pounding heart beat * Fainting * Dizziness * Cough with blood or bloody sputum * Sweating more than normal * Bruises * Heavy or uncontrolled bleeding * Blood in your urine, stool or vomit * Black or tarry stools Caring for Your Self at Home: * Avoid sitting, standing or lying down for long periods without moving your legs and feet * When traveling by car, stop to get out and move around at least once every 3 hours * On long airplane, train or bus rides, get up and move around when possible * If you can't get up, wiggle your toes and tighten your calves to keep your blood moving Follow Up: It is important for you to keep your follow up appointments with your medical provider. Please continue to eat food that is rich in potassium and magnesium, Pending Studies at Discharge: No Stand-Alone Forms: My [facility], Smoking Cessation Medications and DC Order Prescriptions: New fluconazole 100 mg Tablet 200 mg PO QAM Qty: 30 0RF Xarelto 15 mg Tablet 15 mg PO BIDM Qty: 40 0RF Rx Instructions: this is start RX followed by the 20 mg a day Xarelto 20 mg tablet 20 mg PO DAILY Qty: 60 5RF Rx Instructions: must administer with evening meal start after complete the 15 mg bid Continued (DME) Contour Next Test Strips Strip See Rx Instructions .ROUTE .MEDSUPPLY Qty: 300 11RF Rx Instructions: Test blood sugars 6 times a day mirtazapine 30 mg tablet 30 mg PO HS Qty: 90 3RF venlafaxine [Effexor XR] 150 mg capsule,extended release 24hr 300 mg PO HS Qty: 180 3RF (DME) Omnipod Dash Pods (Gen 4) Cartridge See Rx Instructions .ROUTE .MEDSUPPLY Qty: 45 3RF Rx Instructions: use 1 cartridge every 48 hrs sub q (DME) Ketostix Strip See Rx Instructions miscellaneous .MEDSUPPLY Qty: 50 6RF Rx Instructions: Check when blood sugars are high ondansetron 4 mg tablet,disintegrating 4 mg PO Q6 PRN (Reason: nausea and vomiting) Qty: 60 0RF metoprolol succinate 25 mg tablet extended release 24 hr 25 mg PO QAM Qty: 90 3RF (DME) Dexcom G6 Sensor Device See Rx Instructions .ROUTE .MEDSUPPLY Qty: 3 Rx Instructions: As directed (DME) Dexcom G6 Transmitter Device See Rx Instructions .ROUTE .MEDSUPPLY Qty: 1 Rx Instructions: As directed (DME) pen needle, diabetic [BD Ultra-Fine Jody Pen Needle] 32 gauge x 5/32" needle See Rx Instructions miscellaneous .MEDSUPPLY Qty: 120 5RF Rx Instructions: Inject up to 4x a day multivitamin tablet 1 tab PO QAM aspirin 81 mg Tablet,Delayed Release (Dr/Ec) 81 mg PO HS insulin aspart U-100 100 unit/mL (3 mL) insulin pen 0 unit SUBCUT TIDM Rx Instructions: Per sliding scale Rexuqueenie SoloStar U-300 Insulin 300 unit/mL (1.5 mL) insulin pen 68 unit SUBCUT QPM Discontinued fluconazole 100 mg tablet 200 mg PO DAILY Qty: 60 5RF Discharge Orders: Discharge Order (Routine); Ordered 04/22/22 Ordered By: Alfredito Espinal/Other Patient Handouts: Managing Type 2 Diabetes Admission Data Admit Date/Time: 04/19/22 13:55 Attending Provider: Alfredito Torres Admit Provider: Art Rojas Primary Care Provider: Brendon Farfan Other Providers: Art Rojas Other Interventions: Discharge Summary Assessment (RN) Last Done: 04/22/22 12:16 Coding Level of Care Code D/C DAY MANAGEMENT >30 MINS Diagnoses Pulmonary emboli I26.99 Atrial fibrillation I48.91 Cryptococcal meningitis B45.1 Hypokalemia E87.6 Diabetes E11.9
== END 2022-04-22 14:01 | disposition home or self-care (01) | DRG 299 ==
LOC: ED 10:17 → SUATTDRO 13:55 → EDINP 13:55 → 2S 14:33

== ENCOUNTER 2022-04-27 19:35 | Inpatient (IN) ==
[2022-04-27 20:03] LABS: Basophils # (auto) 0.03 K/uL (0-0.2); Basophils % (auto) 0.3 %; Eosinophils # (auto) 0.07 K/uL (0-0.50); Eosinophils % (auto) 0.8 %; Hematocrit (blood only) 28.9 % (34.1-44.9); Hemoglobin 9.2 g/dl (12.0-16.0); Immature Granulocytes # (auto) 0.03 K/uL (0.00-0.02); Immature Granulocytes % (auto) 0.3 %; Lymphocytes # (auto) 1.01 K/uL (1.2-3.4); Lymphocytes % (auto) 11.7 %; Mean Corpuscular Hemoglobin 26.9 pg (25.0-34.0); Mean Corpuscular Hgb Conc 31.8 g/dL (32.0-36.0); Mean Corpuscular Volume 84.5 fL (80.0-100.0); Mean Platelet Volume 12.4 fL (9.4-12.3); Monocytes # (auto) 0.41 K/uL (0.24-0.82); Monocytes % (auto) 4.7 %; Neutrophils % (auto) 82.2 %; Platelet Count 158 K/uL (130-400); RDW Coefficient of Variation 15.9 % (11.5-14.5); Red Blood Count 3.42 M/uL (3.93-5.22); White Blood Count 8.65 K/ul (4.8-10.8)
[2022-04-27 20:33] LABS: Albumin Globulin Ratio 0.9 (0.9-2); Bilirubin,Total 0.6 mg/dl (0.2-1.0); Creatinine Clr Calc Pharmacy 53.7 ml/min; Est GFR (African American) 65.5 ml/min; Est GFR (Non-African American) 56.5 ml/min; Globulin 3.5 gm/dl (2.5-4.0); Potassium 3.4 mmol/L (3.5-5.1); Total Protein 6.5 gm/dl (6.0-8.3)
--- NOTE | 2022-04-27 20:34 | CT Scan Report ---
CT SCAN OF THE BRAIN WITHOUT IV CONTRAST CLINICAL HISTORY: Vomiting. History of cryptococcal meningitis. COMPARISON STUDY: CT of the brain dated 03/12/2022. TECHNIQUE: Unenhanced axial CT scan of the brain is performed from the vertex to the skull base. A do se lowering technique was utilized adhering to the principles of ALARA. CT DOSE: 537.48 mGy.cm FINDINGS: Brain parenchyma: There is age-related involutional change noting mild subcortical and periventricula r microangiopathic disease. There is no hemorrhage, mass effect, or evidence of acute territorial isc hemia by CT criteria. Draper-white matter differentiation is preserved. No extra-axial fluid collection is seen. Ventricles, sulci, cisterns: Prominent secondary to involutional change. Intracranial vasculature: There is atherosclerotic calcification of the cavernous carotid and vertebr al arteries. Calvarium: Unremarkable. Sinuses and mastoids: The visualized paranasal sinuses are clear. The mastoid air cells are well pneu matized. Orbits: The bony orbits are grossly intact. IMPRESSION: There is no hemorrhage, mass effect, or evidence of acute territorial ischemia by CT almita king. ACT 112: Negative or not required by law. Electronically signed by: Hunter Martinez M.D. 04/27/2022 8:33 PM
--- NOTE | 2022-04-27 23:05 | History & Physical Report ---
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 Hematemesis, history of DVT/PE Patient with new hematemesis in the setting of recent xarelto initiation for DVT/PE (04/19) NG tube placed in ED drained some blood at first but not actively draining any blood No calf tenderness, fever, or tachycardia to suggest repeat DVT/PE, but will obtain LE doppler to check Hgb on arrival 9.2, will repeat after fluid resuscitation; platelets wnl INR 1.7 - patient without active major bleed that would justify reversal agents Type/screen pending Holding home xarelto and ASA; consider vascular consult for consideration of IVC filter if deemed appropriate NSS 500mL bolus (x1) ordered, NSS + KCl 20mEq @ 80mL/hr (x1 bag ordered), consider adding dextrose to IVF if patient remains NPO Trend daily CBC Atrial fibrillation Patient rate-controlled and in sinus rhythm upon arrival Holding home xarelto and ASA; consider vascular consult for consideration of IVC filter if deemed appropriate Recent echo (04/20/22): EF 55-60%, borderline concentric LVH, mild/moderate MR, moderate LA dilation, RV/LV function normal Hold home metoprolol while NPO, Daily EKG Cryptococcal meningitis Patient follows with [facility] in [place] (Dr. Roxanne Olmstead) and [facility] (Dr. Dailey) Per recent outpatient neurology visit (04/26), increased confusion suspected secondary to recent hospitalizations +/- meds If confusion continues, may need to repeat LP, but would like to avoid this if possible given recent initiation of anticoagulation If LP is needed, patient should be off aspirin for one week and off xarelto for three days prior, and both should not be reinitiated until a day after the procedure Neurology consult placed Fluconazole 200mg PO daily converted to IV while NPO; gave one-time dose on admission since patient may have vomited her AM dose Hypokalemia Potassium 3.4 on admission, likely secondary to poor PO intake and vomiting KCl 20mEq added to NSS @ 80mL/hr (x1 bag ordered) Trend daily BMP IDDM2 HbA1c 7.9% (04/20/22) Patient's home regimen held on admission Continue BSG checks, sliding-scale insulin, hypoglycemic protocol Transaminitis, history of cirrhosis Suspect patient's elevated AST and alk phos secondary to history of cirrhosis; elevations relatively unchanged from prior hospitalization No abdominal pain on admission or in recent days Low suspicion for hepatic dysfunction as the cause of patient's confusion Trend CMP HTN: BP well-controlled on admission, holding home metoprolol while NPO, restart when able MDD: holding home venlafaxine and mirtazapine while NPO, restart when able FEN: NPO, NSS + KCl 20mEq @ 80mL/hr (x1 bag ordered), consider adding dextrose to IVF if patient remains NPO Code status: full code DVT ppx: SCDs; home xarelto held Held home meds: xarelto, aspirin, DM2 regimen, metoprolol succinate, mirtazapine, venlafaxine Consults: neurology PT/OT: ordered Case management: consulted given complex needs and need for outpatient follow-up coordination Dispo: PCU given risk of sudden deterioration (2) Cryptococcal meningitis: (3) Confusion: (4) Atrial fibrillation: (5) Cirrhosis of liver: (6) Depression: (7) Diabetes mellitus type 2, uncontrolled, without complications: (8) Dyslipidemia: (9) DVT (deep venous thrombosis): (10) Hypertension: (11) Hypokalemia: (12) Nausea: (13) Pulmonary emboli: History of Present Illness Chief Complaint: 62yo female with a history of atrial fibrillation (recently started on xarelto), DVT/PE, cryptococcal meningitis (follows with [facility] and [facility]), HTN, IDDM2, mitral regurgitation, migraine, and depression presents with a one- day history of hematemesis and worsening confusion. Patient was recently hospitalized at [facility] for cryptococcal meningitis (discharged 03/20/22) where she was treated with two weeks of amphotericin B and discharged on 03/20/22 with instructions to continue oral fluconazole until 05/12/22. Patient later developed SOB, prompting an outpatient CT which showed bilateral pulmonary emboli; As a result, patient was referred to the [facility] ED (04/19), and was hospitalized for four days (discharged 04/22). Patient was treated with heparin which was transitioned to xarelto upon discharge. Patient has had intermittent confusion ever since being diagnosed with meningitis in February - patient's family notes this has worsened a bit over the past 2-3 days. Patient has also had a poor appetite for the past 3 days. This morning while eating breakfast, and shortly after taking her meds, patient developed nausea and vomiting. Patient is unsure if she kept her medications down. The vomit had a few specks of blood at first, but repeat vomiting grew more bloody over the course of the afternoon, prompting calling EMS. Patient's nausea improved prior to EMS arrival. Patient denies current or recent fever, chills, headache, CP, palpitations, SOB, abdominal pain, or diarrhea. Patient does note dark tarry stools since starting xarelto about two weeks ago. Denies BRBPR. Noticed some bloody-appearing urine last week but this has resolved. No pain with urination or other urinary symptoms. Patient also endorses unsteadiness on her feet which started after her meningitis diagnosis - this un steadiness has not improved nor worsened recently. Patient's intermittent confusion (which also started around the time of the meningitis diagnosis) has worsened over the past few days; at times patient is alert and oriented, but patient says she can't remember what happened this morning. Upon arrival, vitals were notable for mildly elevated BP. No tachycardia or tachypnea, patient afebrile, SpO2 adequate on room air. Initial labs were notable for mild anemia (9.2), mild hypokalemia (3.4), hyperglycemia (413), and mild elevations of AST (43) and alk phos (204). Covid PCR negative. PT/INR pending. In the ED, patient had an NG tube placed, which she tolerated well though she notes it is uncomfortable. There is a small amount of blood in the tube but none actively draining. Surrogate decision-maker in case of an emergency: son Sushant Ye (cell: [phone]), if he does not answer, call Jennifer Ye (cell: [phone]) Primary Care Provider: Brendon Farfan MD Allergies Allergy/AdvReac Type Severity Reaction Status Date / Time Penicillins Allergy Intermediate Hives Verified 04/27/22 21:30 atorvastatin Allergy Unknown CAN'T Verified 04/27/22 21:30 REMEMBER gemfibrozil [From Lopid] Allergy Unknown CAN'T Verified 04/27/22 21:30 REMEMBER acetaminophen [From Tylenol] AdvReac Severe CAN NOT Verified 04/27/22 21:30 TAKE D/T LIVER ISSUES ibuprofen AdvReac Severe liver Verified 04/27/22 21:30 issues rosuvastatin AdvReac Intermediate Muscle Pain Verified 04/27/22 21:30 Home Medications Medication Instructions Recorded Confirmed Type aspirin 81 mg tablet,delayed 81 mg PO HS 06/05/19 04/27/22 History release multivitamin 1 tab PO QAM 09/07/19 04/27/22 History Contour Next Test Strips (blood #300 ea 12/29/20 04/26/22 Rx sugar diagnostic) blood-glucose sensor (Dexcom G6 #3 ea 01/22/21 04/26/22 History Sensor) blood-glucose transmitter (Dexcom #1 ea 01/22/21 04/26/22 History G6 Transmitter) mirtazapine 30 mg tablet 30 mg PO HS #90 tabs 05/06/21 04/27/22 Rx venlafaxine 150 mg 300 mg PO HS #180 caps 07/01/21 04/27/22 Rx capsule,extended release 24 hr (Effexor XR) acetone (urine) test (Ketostix) #50 ea 10/14/21 04/26/22 Rx pen needle, diabetic 32 gauge x #120 ea 11/06/21 04/26/22 Rx 5/32" (BD Ultra-Fine Jody Pen Needle) insulin aspart U-100 100 unit/mL 0 unit subcut TIDM 03/01/22 04/27/22 History (3 mL) subcutaneous pen insulin glargine U-300 conc 300 68 unit subcut QPM 03/01/22 04/27/22 History unit/mL (1.5 mL) subcutaneous pen (Tousegundoo SoloStar U-300 Insulin) metoprolol succinate 25 mg 25 mg PO QAM #90 tabs 04/16/22 04/27/22 Rx tablet,extended release 24 hr fluconazole 100 mg tablet 200 mg PO QAM #30 tabs 04/22/22 04/27/22 Rx rivaroxaban 15 mg tablet (Xarelto) 15 mg PO BIDM #40 tabs 04/22/22 04/27/22 Rx Past Med/Surg History Medical History Anxiety Cirrhosis of liver FOLLOWS W/ [facility] Stable currently Depression Diabetes mellitus, type 2 IDDM Glucose fluctuates - since Covid in December 2020 On insulin pump Follows with endocrinology Dupuytren's contracture of hand Bilateral hands Dyslipidemia History of COVID-12 January 2021 > [facility], not hospitalized, fever, ear pain- did give infusion in ER No current issues Hypertension IBS (irritable bowel syndrome) Stable Insomnia Kidney stones FOLLOWS WITH DR FUCHS No current issues - monitoring currently Surgical History History of cystoscopy WITH STENTS AND STONE BASKETING History of lithotripsy History of tonsillectomy and adenoidectomy History of total hip arthroplasty LEFT Hx laparoscopic cholecystectomy Hx of colonoscopy Hx of surgical amputation of finger left pinky Hx of total hysterectomy GERALD WITH BSO Hx of tubal ligation Hx of wisdom tooth extraction Family History Father , age 75 Family history of diabetes mellitus Coronary heart disease Brother Family history of diabetes mellitus Mother , age 67 Family history of diabetes mellitus Heart disease Hypertension Grandfather (Paternal) Family history of diabetes mellitus Grandmother (Paternal) Family history of diabetes mellitus Denies family history of Ovarian cancer Breast cancer Colorectal cancer Social History Smoking Status: Never smoker Cigarettes Per Day: 06/2018; Number of Years Since Quit: 4; Second Hand Exposure: Yes; Hx Alcohol Use: No Hx Substance Use: No Preferred Language: Thai Communication Ability: Effective Visual Impairment: No Limitations Package Collector Required: No Beliefs That Will Affect Care: None marital status: Current Living Situation: Alone current occupational status: employed and disabled current occupation: [employer] does have disability for diabetes- insurance helps How many Children do You have: 2 Feels Safe at Home: Yes Childhood Exposure to Second-Hand Smoke: No caffeine: Yes Dental Care, Regularly: No Physical Activity Frequency: Does not Exercise Seatbelt Use: always Sunscreen Use: Yes Assistive Devices: None Physical Exam Physical Exam: Constitutional: frail-appearing, somnolent, no acute distress HEENT: NCAT, no conjunctival pallor, no scleral icterus, mucous membranes dry CV: regular rhythm, grade 2/6 systolic murmur appreciated, extremities well- perfused, 1+ LE edema bilaterally Resp: CTABL, no wheezes/rales/rhonchi appreciated, no increased work of breathing GI: soft, nondistended, nontender, BS normoactive MSK: no flank tenderness Skin: warm, dry, no rash appreciated Neuro: AOx4, slightly somnolent but able to participate in conversation, answers questions appropriately, CN2-12 grossly intact, PERRL, EOMI, strength 5/5 in upper and lower extremities bilaterally Results & Data Results & Data ([facility]) Vital Signs (Past 12 Hours) Vital Signs Temp Pulse Pulse Resp BP BP Pulse Ox 04/27/22 21:30 82 20 132/70 95 04/27/22 20:32 84 20 144/77 H 95 04/27/22 19:41 37.6 C H 86 18 156/84 H 98 O2 Del Method 04/27/22 21:30 Room Air 04/27/22 20:32 Room Air 04/27/22 19:41 Room Air Supervising Physician Co-Signing Physician Notes Attending addendum: I have physically seen this patient, have supervised the medical residents activities, and agree with the H&P unless as otherwise noted. Assessment and Plan: Hematemesis- Started on Xarelto for DVT/PE on 04/19 Hemoglobin 9.2 upon admission H&H every 6 hours INR 1.7 secondary to Xarelto Hold Xarelto and aspirin and all medications Pantoprazole 40 mg IV every 12 hours NSS + KCl 20 mEq at 80 mils per hour Zofran 4 mg IV every 6 hours as needed Consult gastroenterology Atrial fibrillation- Xarelto and aspirin on hold Echo just recently performed on 04/20/2022 with ejection fraction 55-60% Hold oral metoprolol Lopressor 5 mg IV every 4 hours as needed heart rate greater than 110 or systolic greater than 160 Cryptococcal meningitis- Change fluconazole 200 mg p.o. daily to 200 mg IV daily Remaining orders and notations as noted Resident Activity Tracking Resident Involvement: Resident Care Provided and Maintenance Operator Coverage Note Care Provided: Adult Hospital Medicine (1) DVT (deep venous thrombosis) Affected thrombotic vein of extremity: peroneal Chronicity: acute DVT location: lower extremity Laterality: left Qualified Code(s): I82.452 - Acute embolism and thrombosis of left peroneal vein (2) Depression Depression Type: unspecified Qualified Code(s): F32.9 - Major depressive disorder, single episode, unspecified (3) Hypertension Hypertension type: essential hypertension Qualified Code(s): I10 - Essential (primary) hypertension
[2022-04-28] MEDS ORDERED: SODIUM CHLORIDE 0.9% 1000ML 500 ML IV ONE (00:38)
--- NOTE | 2022-04-28 00:46 | Emergency Department Note ---
Impression & Plan Hematemesis, Anemia Admit to the [facility] ED Provider Note NAME: DULCE HUDSON AGE: 62 SEX: F ARRIVES VIA: Ambulance INFORMANT: Patient and her daughter and her son ED PROVIDER(S): Anne Koenig DO CHIEF COMPLAINT: Hematemesis and hematochezia PLAN: Disposition: Admit to the [facility] Condition: Guarded MEDICAL DECISION MAKING: This is a 62-year-old female patient on Xarelto who presents to the emergency department vomiting blood and passing bloody stools. The patient has a history of recent admission to the hospital for meningitis and pulmonary emboli. She is currently on Xarelto. She has decreased oral intake and has become increasingly tired. She began to vomit around 2:00 this afternoon and is now vomiting blood. She has also been placing blood clots from below. A NG tube was placed and she is producing blood in the tube. The patient has dropped a gram of hemoglobin. She is hemodynamically stable. The patient is being evaluated by the [facility] for admission. Triage Nursing notes reviewed and agree with them. Additional history obtained from the patient's daughter and son who have been caring for her Prior medical records reviewed Vital Signs: reviewed and unremarkable Differential diagnosis: Intracranial hemorrhage, gastritis, bleeding ulcer, anemia ER treatment provided: IV normal saline Diagnostics interpreted by me: ECG: Normal sinus rhythm at a rate of [address] segment elevation or signs of ischemia. Cardiac Monitoring: Normal sinus rhythm at a rate of 89 Laboratory studies: See below Imaging studies: As per radiology CT brain: Radiology report HPI: 62/F arrives for evaluation of lethargy and GI bleeding. Patient presents to the emergency department with increased lethargy and GI bleeding. The patient currently takes Xarelto for recent diagnosis of pulmonary emboli. Patient had been hospitalized for meningitis recently. She has become increasingly tired throughout the day today with decreased oral intake. Family member states that the patient has been vomiting and recently started vomiting blood and producing blood clots from her rectum. ROS: See above HPI for pertinent positives & negatives. A total of 10 systems reviewed and were otherwise negative. PAST MEDICAL HISTORY:See Below PAST SURGICAL HISTORY:See Below FAMILY HISTORY:See Below SOCIAL HISTORY:See Below HOME MEDICATIONS:See list ALLERGIES:See list VITALS:See Below PHYSICAL EXAMINATION: In general: The patient appears to be lethargic HEENT: Head - normocephalic and atraumatic. Pupils are equal, round, and reactive to light. Extraocular eye muscles are intact and sclera are anicteric. Ears - bilaterally patent canals with noninjected tympanic membranes and no evidence of hemotympanum. Nose - moist nasal mucosa without discharge. Mouth - moist buccal mucosa. Oropharynx is nonerythematous and there is no tonsillar exudate or edema noted. Neck: Supple; no JVD, nuchal rigidity, cervical lymphadenopathy, or auscultated bruits. Heart: Regular rate and rhythm. There is a normal S1 and S2 with no murmurs, clicks, or gallops appreciated. Lungs: Clear to auscultation bilaterally with no wheezes, rales, or rhonchi. Abdomen: Soft, completely nontender, nondistended, with good bowel sounds. There are no palpable pulsatile masses or hepatosplenomegaly. There is no guarding, rigidity, or rebound noted. Extremities: No evidence of cyanosis, clubbing, or edema. There are easily palpable peripheral pulses. Neuro:The patient is awake and alert, oriented to day, time, and place however, she is slow to answer questions. Muscle strength is 5/5 in all 4 extremities. The patient has equal cuff knitter strength and equal pedal push and pull. There are no cerebellar signs. ED COURSE: Times/Reassessments: The patient was evaluated in room B8. Previous electronic medical records were reviewed. An order was placed for continuous cardiac monitoring. The patient is in a normal sinus rhythm at a rate of 89. A twelve-lead EKG was obtained. Patient was given IV normal saline solution. She went for an emergent CT scan of her brain to rule out intracranial hemorrhage. This was negative. I reviewed the results of the CT scan and labs with the patient and her family. An NG tube was placed and did produce blood from her stomach. I discussed the case with the [facility] Hospitalist and they will evaluate for further management. Anne Koenig DO Past Med/Surg History Medical History Anxiety Cirrhosis of liver FOLLOWS W/ [facility] Stable currently Depression Diabetes mellitus, type 2 IDDM Glucose fluctuates - since Covid in December 2020 On insulin pump Follows with endocrinology Dupuytren's contracture of hand Bilateral hands Dyslipidemia History of COVID-12 January 2021 > [facility], not hospitalized, fever, ear pain- did give infusion in ER No current issues Hypertension IBS (irritable bowel syndrome) Stable Insomnia Kidney stones FOLLOWS WITH DR FUCHS No current issues - monitoring currently Surgical History History of cystoscopy WITH STENTS AND STONE BASKETING History of lithotripsy History of tonsillectomy and adenoidectomy History of total hip arthroplasty LEFT Hx laparoscopic cholecystectomy Hx of colonoscopy Hx of surgical amputation of finger left pinky Hx of total hysterectomy GERALD WITH BSO Hx of tubal ligation Hx of wisdom tooth extraction Family History Father , age 75 Family history of diabetes mellitus Coronary heart disease Brother Family history of diabetes mellitus Mother , age 67 Family history of diabetes mellitus Heart disease Hypertension Grandfather (Paternal) Family history of diabetes mellitus Grandmother (Paternal) Family history of diabetes mellitus Denies family history of Ovarian cancer Breast cancer Colorectal cancer Social History Smoking Status: Never smoker Cigarettes Per Day: 06/2018; Number of Years Since Quit: 4; Second Hand Exposure: Yes; Hx Alcohol Use: No Hx Substance Use: No Preferred Language: Lithuanian Communication Ability: Effective Visual Impairment: No Limitations Study Manager Required: No Beliefs That Will Affect Care: None marital status: Current Living Situation: Alone current occupational status: employed and disabled current occupation: [employer] does have disability for diabetes- insurance helps How many Children do You have: 2 Feels Safe at Home: Yes Childhood Exposure to Second-Hand Smoke: No caffeine: Yes Dental Care, Regularly: No Physical Activity Frequency: Does not Exercise Seatbelt Use: always Sunscreen Use: Yes Assistive Devices: None Allergies Allergies Allergy/AdvReac Type Severity Reaction Status Date / Time Penicillins Allergy Intermediate Hives Verified 04/27/22 21:30 atorvastatin Allergy Unknown CAN'T Verified 04/27/22 21:30 REMEMBER gemfibrozil [From Lopid] Allergy Unknown CAN'T Verified 04/27/22 21:30 REMEMBER acetaminophen [From Tylenol] AdvReac Severe CAN NOT Verified 04/27/22 21:30 TAKE D/T LIVER ISSUES ibuprofen AdvReac Severe liver Verified 04/27/22 21:30 issues rosuvastatin AdvReac Intermediate Muscle Pain Verified 04/27/22 21:30 Home Meds Home Medications Medication Instructions Recorded Confirmed aspirin 81 mg tablet,delayed 81 mg PO HS 06/05/19 04/27/22 release multivitamin 1 tab PO QAM 09/07/19 04/27/22 blood-glucose sensor (Dexcom G6 #3 ea 01/22/21 04/26/22 Sensor device) blood-glucose transmitter (Dexcom #1 ea 01/22/21 04/26/22 G6 Transmitter device) insulin aspart U-100 100 unit/mL 0 unit subcut TIDM 03/01/22 04/27/22 (3 mL) subcutaneous pen insulin glargine U-300 conc 300 68 unit subcut QPM 03/01/22 04/27/22 unit/mL (1.5 mL) subcutaneous pen ([employer] Solo[employer] U-300 Insulin) Previous Rx's Medication Instructions Recorded Contour Next Test Strips (blood #300 ea 12/29/20 sugar diagnostic) mirtazapine 30 mg tablet 30 mg PO HS #90 tabs 05/06/21 venlafaxine 150 mg 300 mg PO HS #180 caps 07/01/21 capsule,extended release 24 hr (Effexor XR) acetone (urine) test (Ketostix #50 ea 10/14/21 strips) pen needle, diabetic 32 gauge x #120 ea 11/06/21 5/32" (BD Ultra-Fine Jody Pen Needle) metoprolol succinate 25 mg 25 mg PO QAM #90 tabs 04/16/22 tablet,extended release 24 hr fluconazole 100 mg tablet 200 mg PO QAM #30 tabs 04/22/22 rivaroxaban 15 mg tablet (Xarelto) 15 mg PO BIDM #40 tabs 04/22/22 Results & Data (ED) Vital Signs Vital Signs - 24 hr 04/27/22 19:41 04/27/22 20:32 04/27/22 21:30 Temperature 37.6 C H Temperature Source Oral Pulse Rate 86 Pulse Rate [Right Finger] 84 82 Respiratory Rate 18 20 20 Respiratory Effort / Characteristics Non-Labored Spontaneous Respiratory Depth Normal Respiratory Pattern Regular Blood Pressure 156/84 H Blood Pressure [Right Arm] 144/77 H 132/70 Blood Pressure Mean 108 Blood Pressure Mean [Right Arm] 99 90 Blood Pressure Position [Right Arm] Sitting Pulse Oximetry 98 95 95 Oxygen Delivery Method Room Air Room Air Room Air Sepsis Recent Fever Within 48 Hours No Sepsis New/Unexplained Change in Mental Status No Sepsis Action Taken by Nursing No Action Required 04/27/22 23:06 04/28/22 00:23 Temperature Temperature Source Pulse Rate Pulse Rate [Right Finger] 80 89 Respiratory Rate 20 20 Respiratory Effort / Characteristics Respiratory Depth Respiratory Pattern Blood Pressure Blood Pressure [Right Arm] 154/87 H 135/79 Blood Pressure Mean Blood Pressure Mean [Right Arm] 109 97 Blood Pressure Position [Right Arm] Pulse Oximetry 92 92 Oxygen Delivery Method Room Air Room Air Sepsis Recent Fever Within 48 Hours Sepsis New/Unexplained Change in Mental Status Sepsis Action Taken by Nursing Laboratory Data Result diagrams: 04/29/22 04:17 04/29/22 10:54 Lab Results 04/27/22 04/27/22 04/27/22 Range/Units 19:49 19:49 19:49 WBC 8.65 (4.8-10.8) K/ul RBC 3.42 L (3.93-5.22) M/uL Hgb 9.2 L (12.0-16.0) g/dl Hct 28.9 L (34.1-44.9) % MCV 84.5 (80.0-100.0) fL MCH 26.9 (25.0-34.0) pg MCHC 31.8 L (32.0-36.0) g/dL RDW Std Deviation 49.0 H (36.4-46.3) fL RDW Coeff of Jun 15.9 H (11.5-14.5) % Plt Count 158 (130-400) K/uL MPV 12.4 H (9.4-12.3) fL Immature Gran % (Auto) 0.3 % Neut % (Auto) 82.2 % Lymph % (Auto) 11.7 % Riley % (Auto) 4.7 % Eos % (Auto) 0.8 % Baso % (Auto) 0.3 % Neut # (Auto) 7.10 H (1.4-6.5) K/uL Lymph # (Auto) 1.01 L (1.2-3.4) K/uL Riley # (Auto) 0.41 (0.24-0.82) K/uL Eos # (Auto) 0.07 (0-0.50) K/uL Baso # (Auto) 0.03 (0-0.2) K/uL Immature Gran # (Auto) 0.03 H (0.00-0.02) K/uL PT 17.8 H (9.0-12.0) Seconds INR 1.7 H (0.9-1.1) Sodium 137 (136-145) mmol/L Potassium 3.4 L (3.5-5.1) mmol/L Chloride 102 (98-107) mmol/L Carbon Dioxide 23 (21-32) mmol/L Anion Gap 12 H (3-11) BUN 22 (6-23) mg/dl Creatinine 1.05 (0.6-1.2) mg/dl Est Cr Clr Drug Dosing 53.7 ml/min Est GFR ( Amer) 65.5 ml/min Est GFR (Non-Af Amer) 56.5 ml/min BUN/Creatinine Ratio 21.0 H (10-20) Glucose 413 H* (70-99(Fasting)) mg/dl POC Glucose (70-99) mg/dl Calcium 9.0 (8.5-10.1) mg/dl Total Bilirubin 0.6 (0.2-1.0) mg/dl AST 43 H (13-39) U/L ALT 19 (7-52) U/L Alkaline Phosphatase 204 H (34-104) U/L Total Protein 6.5 (6.0-8.3) gm/dl Albumin 3.0 L (3.4-5.0) gm/dl Globulin 3.5 (2.5-4.0) gm/dl Albumin/Globulin Ratio 0.9 (0.9-2) Lipase 65 (11-82) U/L SARS-CoV-2, RNA, NAAT (NEGATIVE) 04/27/22 04/27/22 Range/Units 19:59 21:29 WBC (4.8-10.8) K/ul RBC (3.93-5.22) M/uL Hgb (12.0-16.0) g/dl Hct (34.1-44.9) % MCV (80.0-100.0) fL MCH (25.0-34.0) pg MCHC (32.0-36.0) g/dL RDW Std Deviation (36.4-46.3) fL RDW Coeff of Jun (11.5-14.5) % Plt Count (130-400) K/uL MPV (9.4-12.3) fL Immature Gran % (Auto) % Neut % (Auto) % Lymph % (Auto) % Riley % (Auto) % Eos % (Auto) % Baso % (Auto) % Neut # (Auto) (1.4-6.5) K/uL Lymph # (Auto) (1.2-3.4) K/uL Riley # (Auto) (0.24-0.82) K/uL Eos # (Auto) (0-0.50) K/uL Baso # (Auto) (0-0.2) K/uL Immature Gran # (Auto) (0.00-0.02) K/uL PT (9.0-12.0) Seconds INR (0.9-1.1) Sodium (136-145) mmol/L Potassium (3.5-5.1) mmol/L Chloride (98-107) mmol/L Carbon Dioxide (21-32) mmol/L Anion Gap (3-11) BUN (6-23) mg/dl Creatinine (0.6-1.2) mg/dl Est Cr Clr Drug Dosing ml/min Est GFR ( Amer) ml/min Est GFR (Non-Af Amer) ml/min BUN/Creatinine Ratio (10-20) Glucose (70-99(Fasting)) mg/dl POC Glucose 403 H* (70-99) mg/dl Calcium (8.5-10.1) mg/dl Total Bilirubin (0.2-1.0) mg/dl AST (13-39) U/L ALT (7-52) U/L Alkaline Phosphatase (34-104) U/L Total Protein (6.0-8.3) gm/dl Albumin (3.4-5.0) gm/dl Globulin (2.5-4.0) gm/dl Albumin/Globulin Ratio (0.9-2) Lipase (11-82) U/L SARS-CoV-2, RNA, NAAT NEGATIVE (NEGATIVE) Administered Medications Fluconazole (Diflucan) 200 mg in 100 mls @ 100 mls/hr IV Q24H [facility]; Protocol Stop: 05/08/22 00:29 Last Infusion: 04/29/22 02:21 Dose: 0 mls/hr Documented By: Admin: 04/29/22 01:17 Dose: 100 mls/hr Documented By: Infusion: 04/28/22 02:44 Dose: 0 mls/hr Documented By: Admin: 04/28/22 01:45 Dose: 100 mls/hr Documented By: REINA Pantoprazole Sodium 40 mg/ (Dextrose) 100 mls @ 20 mls/hr IV Q5H [facility] Stop: 05/28/22 13:29 Last Admin: 04/29/22 10:03 Dose: 8 mg/hr, 20 mls/hr Documented By: Infusion: 04/29/22 10:03 Dose: 8 mg/hr, 20 mls/hr Documented By: Admin: 04/29/22 05:55 Dose: 8 mg/hr, 20 mls/hr Documented By: Infusion: 04/29/22 05:55 Dose: 8 mg/hr, 20 mls/hr Documented By: Admin: 04/29/22 01:14 Dose: 8 mg/hr, 20 mls/hr Documented By: Infusion: 04/29/22 01:08 Dose: 8 mg/hr, 20 mls/hr Documented By: Admin: 04/28/22 20:08 Dose: 8 mg/hr, 20 mls/hr Documented By: Infusion: 04/28/22 19:27 Dose: 8 mg/hr, 20 mls/hr Documented By: Admin: 04/28/22 14:27 Dose: 8 mg/hr, 20 mls/hr Documented By: DAVIN Heparin Sodium/Dextrose (Heparin Sodium/Dextrose) 25,000 units in 500 mls @ 15 mls/hr IV .Q24H [facility]; Protocol Stop: 05/29/22 16:09 Last Admin: 04/29/22 16:39 Dose: 750 units/hr, 15 mls/hr Documented By: VAUGHN Co-signed By: MING Insulin Aspart (Insulin Aspart Per Unit) 0 units SC Q6 [facility] Stop: 05/28/22 02:29 Last Admin: 04/29/22 11:43 Dose: 4 units Documented By: VAUGHN Co-signed By: LIZETTE Admin: 04/29/22 05:31 Dose: 4 units Documented By: PARIS Co-signed By: CLARIBEL Admin: 04/29/22 00:34 Dose: 2 units Documented By: PARIS Co-signed By: FIDELIA Admin: 04/28/22 17:49 Dose: 2 units Documented By: SR Co-signed By: MARCO Admin: 04/28/22 12:53 Dose: 4 units Documented By: DAVIN Co-signed By: ANUJ Admin: 04/28/22 05:58 Dose: 5 units Documented By: MADISON Co-signed By: REINA Admin: 04/28/22 02:40 Dose: 8 units Documented By: REINA Co-signed By: LUZMARIA Metoprolol Tartrate (Metoprolol Tartrate 1 Mg/Ml Vial) 5 mg IV Q6 [facility] Stop: 05/29/22 09:04 Last Admin: 04/29/22 11:46 Dose: 5 mg Documented By: Admin: 04/29/22 09:05 Dose: 5 mg Documented By: VAUGHN Discontinued Medications Benzocaine/Butamben/Tetracaine HCl (Benzocaine/Tetracain/Butam 50 Appln/5 Gm Can) Confirm Administered Dose 50 appln EXT .STK-MED ONE Stop: 04/29/22 13:18 Last Admin: 04/29/22 15:54 Dose: Not Given Documented By: VAUGHN Glycopyrrolate (Glycopyrrolate 0.2 Mg/Ml Vial) Confirm Administered Dose 0.4 mg .ROUTE .STK-MED ONE Stop: 04/29/22 13:16 Last Admin: 04/29/22 15:53 Dose: Not Given Documented By: VAUGHN Sodium Chloride (Nss 1000ml) 500 mls @ 999 mls/hr IV .Q31M ONE Stop: 04/28/22 01:08 Last Infusion: 04/28/22 01:49 Dose: 0 mls/hr Documented By: Admin: 04/28/22 01:12 Dose: 999 mls/hr Documented By: REINA Potassium Chloride/Sodium Chloride (Normal Saline W/20 Meq Kcl) 20 meq in 1,000 mls @ 80 mls/hr IV .[id number] [facility] Stop: 04/28/22 14:59 Last Infusion: 04/28/22 14:36 Dose: 0 mls/hr Documented By: Admin: 04/28/22 02:41 Dose: 80 mls/hr Documented By: REINA Potassium Chloride 20 meq/ (Sodium Chloride) 1,010 mls @ 80 mls/hr IV .[id number] [facility] Stop: 04/29/22 02:44 Last Admin: 04/28/22 01:47 Dose: Not Given Documented By: RENIA Potassium Chloride (K Ney / Wtr) 10 meq in 100 mls @ 100 mls/hr IV Q1H [facility] Stop: 04/28/22 12:29 Last Infusion: 04/28/22 14:36 Dose: 0 mls/hr Documented By: Admin: 04/28/22 13:40 Dose: 66 mls/hr Documented By: Infusion: 04/28/22 13:39 Dose: 0 mls/hr Documented By: Admin: 04/28/22 11:54 Dose: 100 mls/hr Documented By: Infusion: 04/28/22 11:21 Dose: 100 mls/hr Documented By: Admin: 04/28/22 10:21 Dose: 100 mls/hr Documented By: DAVIN Magnesium Sulfate/Dextrose (Magnesium Sulfate / D5w) 1 gm in 100 mls @ 50 mls/hr IV Q2H [facility] Stop: 04/28/22 13:29 Last Infusion: 04/28/22 14:06 Dose: 0 mls/hr Documented By: Admin: 04/28/22 11:57 Dose: 50 mls/hr Documented By: Infusion: 04/28/22 11:56 Dose: 0 mls/hr Documented By: Admin: 04/28/22 10:20 Dose: 50 mls/hr Documented By: DAVIN Potassium Chloride (K Ney / Wtr) 10 meq in 100 mls @ 100 mls/hr IV Q1H [facility] Stop: 04/29/22 02:14 Last Infusion: 04/29/22 04:01 Dose: 0 mls/hr Documented By: Admin: 04/29/22 02:21 Dose: 100 mls/hr Documented By: Infusion: 04/29/22 02:21 Dose: 100 mls/hr Documented By: Admin: 04/29/22 01:25 Dose: 100 mls/hr Documented By: Infusion: 04/29/22 01:25 Dose: 100 mls/hr Documented By: Admin: 04/29/22 00:35 Dose: 100 mls/hr Documented By: Infusion: 04/29/22 00:35 Dose: 100 mls/hr Documented By: Admin: 04/28/22 23:38 Dose: 100 mls/hr Documented By: PARIS Magnesium Sulfate/Dextrose (Magnesium Sulfate / D5w) 1 gm in 100 mls @ 50 mls/hr IV Q2H [facility] Stop: 04/29/22 02:14 Last Infusion: 04/29/22 03:14 Dose: 0 mls/hr Documented By: Admin: 04/29/22 01:14 Dose: 50 mls/hr Documented By: Infusion: 04/29/22 01:14 Dose: 50 mls/hr Documented By: Admin: 04/28/22 23:38 Dose: 50 mls/hr Documented By: PARIS Potassium Chloride (K Ney / Wtr) 10 meq in 100 mls @ 100 mls/hr IV Q1H [facility] Stop: 04/29/22 09:14 Last Admin: 04/29/22 08:49 Dose: 100 mls/hr Documented By: Infusion: 04/29/22 08:44 Dose: 100 mls/hr Documented By: Admin: 04/29/22 07:44 Dose: 100 mls/hr Documented By: Infusion: 04/29/22 07:39 Dose: 100 mls/hr Documented By: Admin: 04/29/22 06:39 Dose: 100 mls/hr Documented By: Infusion: 04/29/22 06:28 Dose: 100 mls/hr Documented By: Admin: 04/29/22 05:28 Dose: 100 mls/hr Documented By: PARIS Lidocaine HCl (Lidocaine 2% Mpf Local 5 Ml Vial) Confirm Administered Dose 5 ml INFIL .STK-MED ONE Stop: 04/29/22 13:16 Last Admin: 04/29/22 15:53 Dose: Not Given Documented By: VAUGHN Metoprolol Tartrate (Metoprolol Tartrate 1 Mg/Ml Vial) Confirm Administered Dose 5 mg IV .STK-MED ONE Stop: 04/29/22 09:04 Last Admin: 04/29/22 09:05 Dose: Not Given Documented By: VAUGHN Miscellaneous Information (Dc All Previously Ordered Diabetes Meds) 1 each N/A ONE ONE Stop: 04/28/22 01:30 Last Admin: 04/28/22 01:47 Dose: 1 each Documented By: REINA Ondansetron HCl (Ondansetron Inj 2 Mg/Ml 2 Ml Vial) Confirm Administered Dose 4 mg .ROUTE .STK-MED ONE Stop: 04/29/22 13:16 Last Admin: 04/29/22 15:54 Dose: Not Given Documented By: VAUGHN Potassium Chloride (Potassium Chloride Crtab 20 Meq Tabcr) 40 meq PO NOW STA Stop: 04/28/22 09:40 Last Admin: 04/28/22 10:20 Dose: Not Given Documented By: DAVIN Potassium Chloride/Sodium Chloride (Nss+Kcl 20 Meq 1000ml) Confirm Administered Dose 20 meq IV .STK-MED ONE Stop: 04/28/22 01:17 Last Admin: 04/28/22 01:46 Dose: Not Given Documented By: REINA Propofol (Propofol Iv Emulsion 10 Mg/Ml 20 Ml Vial) Confirm Administered Dose 200 mg IV .STK-MED ONE Stop: 04/29/22 13:16 Last Admin: 04/29/22 15:54 Dose: Not Given Documented By: VAUGHN Imaging Data Radiologist's Impression: Head CT 04/27/22 20:12 CT SCAN OF THE BRAIN WITHOUT IV CONTRAST CLINICAL HISTORY: Vomiting. History of cryptococcal meningitis. COMPARISON STUDY: CT of the brain dated 03/12/2022. TECHNIQUE: Unenhanced axial CT scan of the brain is performed from the vertex to the skull base. A dose lowering technique was utilized adhering to the principles of ALARA. CT DOSE: 537.48 mGy.cm FINDINGS: Brain parenchyma: There is age-related involutional change noting mild subcortical and periventricular microangiopathic disease. There is no hemorrhage, mass effect, or evidence of acute territorial ischemia by CT criteria. Draper-white matter differentiation is preserved. No extra-axial fluid collection is seen. Ventricles, sulci, cisterns: Prominent secondary to involutional change. Intracranial vasculature: There is atherosclerotic calcification of the cavernous carotid and vertebral arteries. Calvarium: Unremarkable. Sinuses and mastoids: The visualized paranasal sinuses are clear. The mastoid air cells are well pneumatized. Orbits: The bony orbits are grossly intact. IMPRESSION: There is no hemorrhage, mass effect, or evidence of acute territorial ischemia by CT criteria. ACT 112: Negative or not required by law. Electronically signed by: Hunter Martinez M.D. 04/27/2022 8:33 PM Discharge Plan Visit Data Chief Complaint: Vomiting ED Provider: Anne Koenig Discharge Problem: Hematemesis, Anemia Patient Disposition: Admitted As Inpatient Discharge Instructions Interventions: ED Discharge Assessment Last Done: 04/27/22 23:58 : Hematemesis Qualifiers: Nausea presence: without nausea Qualified Code(s): K92.0 - Hematemesis Anemia Qualifiers: Anemia type: other cause Other causes of anemia: acute posthemorrhagic Qualified Code(s): D62 - Acute posthemorrhagic anemia
[2022-04-28 00:50] LABS: INR 1.7 (0.9-1.1); Prothrombin Time 17.8 Seconds (9.0-12.0)
[2022-04-28] MEDS ORDERED: NSS+KCL 20 MEQ 1000ML IV ONE (01:16)
[2022-04-28] MEDS ORDERED: GLUCOSE 40% GEL 15 GM TUBE PO PRN (01:29)
[2022-04-28] MEDS ORDERED: DEXTROSE 50% 50 ML SYRINGE IV PRN (01:29)
[2022-04-28] MEDS ORDERED: GLUCOSE 10 TAB/TUBE PO PRN (01:29)
[2022-04-28] MEDS ORDERED: CARBOHYDRATES FOR HYPOGLYCEMIA PO PRN (01:29)
[2022-04-28] MEDS ORDERED: DC ALL PREVIOUSLY ORDERED DIABETES MEDS ONE (01:29)
[2022-04-28] MEDS ORDERED: ONDANSETRON INJ 2 MG/ML 2 ML VIAL IV PRN (01:29)
[2022-04-28] MEDS ORDERED: POTASSIUM CHLORIDE 20 MEQ in SODIUM CHLORIDE 0.9% 1000ML 1,000 ML IV SCH (01:29)
[2022-04-28] MEDS ORDERED: GLUCAGON FOR INJ 1 MG VIAL SQ PRN (01:29)
[2022-04-28] MEDS: FLUCONAZOLE 200 MG/100 ML BAG IV SCH (01:45)
[2022-04-28] MEDS ORDERED: NSS + 20MEQ KCL 20 MEQ/1,000 ML BAG IV SCH (02:30)
[2022-04-28] MEDS: INSULIN ASPART PER UNIT SC SCH ×4 (02:40→17:49)
--- NOTE | 2022-04-28 06:38 | Ultrasound Report ---
BILATERAL LOWER EXTREMITY VENOUS DOPPLER HISTORY: Acute pain and swelling of the right lower leg recent DVT/PE COMPARISON STUDY: Doppler study 04/19/2022 FINDINGS: There is normal compressibility, flow, and augmentation within the right lower extremity de ep venous structures. Partially occlusive thrombus in the left peroneal vein redemonstrated. IMPRESSION: 1. Deep venous thrombosis of the left peroneal vein redemonstrated. 2. No right lower extremity DVT. ACT 112: Negative or not required by law. Electronically signed by: Markos Tineo M.D. 04/28/2022 6:36 AM
[2022-04-28 07:38] LABS: Basophils # (auto) 0.06 K/uL (0-0.2); Basophils % (auto) 0.8 %; Eosinophils # (auto) 0.21 K/uL (0-0.50); Eosinophils % (auto) 2.7 %; Hemoglobin 9.2 g/dl (12.0-16.0); Immature Granulocytes # (auto) 0.01 K/uL (0.00-0.02); Immature Granulocytes % (auto) 0.1 %; Lymphocytes # (auto) 2.09 K/uL (1.2-3.4); Lymphocytes % (auto) 27.2 %; Mean Corpuscular Hemoglobin 27.2 pg (25.0-34.0); Mean Corpuscular Hgb Conc 32.9 g/dL (32.0-36.0); Mean Corpuscular Volume 82.8 fL (80.0-100.0); Mean Platelet Volume 11.7 fL (9.4-12.3); Monocytes # (auto) 0.52 K/uL (0.24-0.82); Monocytes % (auto) 6.8 %; Neutrophils # (auto) 4.79 K/uL (1.4-6.5); Neutrophils % (auto) 62.4 %; Platelet Count 165 K/uL (130-400); RDW Coefficient of Variation 16.2 % (11.5-14.5); RDW Standard Deviation 48.8 fL (36.4-46.3); Red Blood Count 3.38 M/uL (3.93-5.22); White Blood Count 7.68 K/ul (4.8-10.8)
[2022-04-28 07:51] LABS: INR 1.4 (0.9-1.1); Prothrombin Time 15.1 Seconds (9.0-12.0)
[2022-04-28 08:02] LABS: Albumin Globulin Ratio 0.9 (0.9-2); BUN Creatinine Ratio 21.4 (10-20); Bilirubin,Total 0.6 mg/dl (0.2-1.0); Calcium 8.5 mg/dl (8.5-10.1); Creatinine Clr Calc Pharmacy 57.5 ml/min; Est GFR (African American) 71.2 ml/min; Est GFR (Non-African American) 61.4 ml/min; Globulin 3.3 gm/dl (2.5-4.0); Magnesium 1.4 mg/dl (1.7-2.4); Phosphorus 2.7 mg/dl (2.5-4.9); Potassium 2.7 mmol/L (3.5-5.1); Total Protein 6.3 gm/dl (6.0-8.3)
--- NOTE | 2022-04-28 08:18 | Neurology Consultation ---
Date of Consultation April 28, 2022 Assessment & Plan (1) Cryptococcal meningitis: (2) Hematemesis: (3) Confusion: (4) Pulmonary emboli: (5) DVT (deep venous thrombosis): (6) Balance disorder: (7) Diabetes mellitus type 2, uncontrolled, without complications: (8) Atrial fibrillation: Plan This is a very complicated patient neurologically. 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 She was treated with at least 2 weeks of amphotericin B and flucytosine. She was then switched to fluconazole but she could not tolerate the typical dose with abdominal pain, nausea, and vomiting. When lowered to the current dose of 200 mg a day she has tolerated this better. Unfortunately she had pulmonary emboli and left lower extremity DVT requiring anticoagulation. She has been on 81 mg aspirin for small vessel ischemia. She then developed hematemesis /GI bleeding. The patient has been mildly encephalopathic/ confused but most of what I see today is more "sleepy and tired". She is anemic and had a glucose of over 400. in addition she has hypokalemia (which would make her week) and hypomagnesemia. She has a history of hepatic cirrhosis, uncontrolled diabetes, and atrial fibrillation. An echocardiogram April 20, was stable compared to the previous scan On neurologic examination today she has no focal findings or meningeal signs. Recommendations: 1. obtain ammonia, TSH, B12 2. because of her history of clotting and now significant bleeding, her anticoagulant and antiplatelet medication need to be stopped. She would be a candidate for an IVC filter 3. Continue fluconazole 200 mg daily. 4. I would be interested in an lumbar puncture to make sure there is no recurrence /residual cryptococcus. We would need an opening pressure and all usual parameters and cultures. She would have to be off anticoagulation for several days, and ideally, off the aspirin for approximately 1 week. 5. Treat hypokalemia and hypomagnesemia 6. GI to evaluate bleeding 7. consider blood transfusion if anemia becomes worse. 8. I do not believe the patient needs an EEG or MRI of the brain at this time. Overall, I spent a total of 100 minutes with this case including review of records, direct evaluation the patient at bedside, and discussion the case with the patient and RN at bedside, and Hunter Magaña PA-C, including differential diagnosis and treatment options. History of Present Illness Reason for Consultation: Patient is a 62-year-old, how was asked to see at the request of Dr. Renee, for neurologic consultation regarding acute encephalopathy and history of cryptococcal meningitis. Requesting Physician: Dr. Renee Attending Physician: Lucian Soto History of Present Illness I First saw this patient March 04, in consultation for cryptococcal meningitis. For 2 weeks prior to the admission of 03-01-22, she had headaches,neck stiffness and pain, and some shortness of breath with activity. She did not have confusion or other cognitive issues, vision problems, or fever. Initially she had some pinpoint rash on her arms and legs. Lumbar puncture March 02 showed 320 white cells ( 59% monos and 41% polys), protein of 108 and positive cryptococcal PCR test on [employer]. There was no opening pressure recorded. Patient did not have HIV or any known immuno compromising condition. She did have some uncontrolled diabetes and hepatic cirrhosis. 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 Lumbar puncture grew out cryptococcal neoformans. She was placed on amphotericin B and fluconazole per protocol, starting April 01 and , in consultation with infectious disease. Lumbar puncture March 05 showed 266 white cells with a protein of 8. Opening pressure was 25 (borderline). Repeat lumbar puncture March 12 showed 312 white cells ( 99% monos) a protein of 106 and a lactate of 3.9. It was clear and colorless. Opening pressure was not recorded, and no fungus or yeast was isolated. Patient developed new onset atrial flutter with rapid ventricular response. She was transferred to [facility] March 12, and spent a week there. according to in [facility] infectious disease report 03-25-[address] Roxanne Olmstead, because of some acute renal issues, she was switched from amphotericin B and flucytosine (did have 2 weeks on these medications) to 400 mg fluconazole. She was supposed to be on this dose of fluconazole for 8 weeks. By early March she was starting to get abdominal pain with nausea and vomiting. there was some mild confusion Patient was admitted again at [facility] on April 19 for some shortness of b reath and a CT scan showed bilateral pulmonary emboli. She had left peroneal vein DVT as well. She was put on a heparin drip and converted to Xarelto. She was discharged 04-22 on 81 mg aspirin daily plus Xarelto. During that hospitalization, fluconazole was decreased to 200 mg a day. I saw the patient on April 26 as an outpatient. She told me that once fluconazole was decreased to 200 mg a day, the nausea essentially resolved. When I saw her on April 26, she expressed no nausea, vomiting, diarrhea, headaches, vision issues, neck pain, weakness, or numbness. She did complain of some balance issues and mild intermittent confusion. at that time I was concerned about her symptoms and fact that she was on a lower dose of fluconazole then was originally intended by Infectious Disease. I felt that a lumbar puncture would be necessary to obtain but she was anticoagulated. After discussing with Dr. Farfan (her PCP), it was determined that she should be on anticoagulation for at least several weeks ( ideally several months ) before we discontinue the anticoagulant and antiplatelet medication to perform the LP. Patient returned to the emergency room April 27 at 7:41 p.m. because of hematemesis and blood in her stool. She did not have hematuria but was having nosebleeds. Temperature was 37.6, pulse 86 and regular. Respiratory rate was comfortable and 18 and blood pressure was 156/84. O2 saturation was 98%. There was a concern about some confusion but she was very sleepy and tired. CBC showed hemoglobin of 9.2 and hematocrit of 28.9. hemoglobin was down a point compared to the April 21. Glucose was 413 which was a marked change compared to last week. BUN and creatinine are unremarkable potassium is low. Magnesium is low at 1.4 AST was mildly elevated at 43 ( elevated since early March). Alk-phos was 204. this also has been elevated since early March. CT scan of the head is unremarkable. This patient this morning was very sleepy and tired but easily arousable. She was not overly confused. She had no pain or headache. She had no new weakness or numbness in the limbs. Allergies Allergy/AdvReac Type Severity Reaction Status Date / Time Penicillins Allergy Intermediate Hives Verified 04/27/22 21:30 atorvastatin Allergy Unknown CAN'T Verified 04/27/22 21:30 REMEMBER gemfibrozil [From Lopid] Allergy Unknown CAN'T Verified 04/27/22 21:30 REMEMBER acetaminophen [From Tylenol] AdvReac Severe CAN NOT Verified 04/27/22 21:30 TAKE D/T LIVER ISSUES ibuprofen AdvReac Severe liver Verified 04/27/22 21:30 issues rosuvastatin AdvReac Intermediate Muscle Pain Verified 04/27/22 21:30 Home Medications Medication Instructions Recorded Confirmed Type aspirin 81 mg tablet,delayed 81 mg PO HS 06/05/19 04/27/22 History release multivitamin 1 tab PO QAM 09/07/19 04/27/22 History Contour Next Test Strips (blood #300 ea 12/29/20 04/26/22 Rx sugar diagnostic) blood-glucose sensor (Dexcom G6 #3 ea 01/22/21 04/26/22 History Sensor) blood-glucose transmitter (Dexcom #1 ea 01/22/21 04/26/22 History G6 Transmitter) mirtazapine 30 mg tablet 30 mg PO HS #90 tabs 05/06/21 04/27/22 Rx venlafaxine 150 mg 300 mg PO HS #180 caps 07/01/21 04/27/22 Rx capsule,extended release 24 hr (Effexor XR) acetone (urine) test (Ketostix) #50 ea 10/14/21 04/26/22 Rx pen needle, diabetic 32 gauge x #120 ea 11/06/21 04/26/22 Rx 5/32" (BD Ultra-Fine Jody Pen Needle) insulin aspart U-100 100 unit/mL 0 unit subcut TIDM 03/01/22 04/27/22 History (3 mL) subcutaneous pen insulin glargine U-300 conc 300 68 unit subcut QPM 03/01/22 04/27/22 History unit/mL (1.5 mL) subcutaneous pen (Jeremiah SolAydenar U-300 Insulin) metoprolol succinate 25 mg 25 mg PO QAM #90 tabs 04/16/22 04/27/22 Rx tablet,extended release 24 hr fluconazole 100 mg tablet 200 mg PO QAM #30 tabs 04/22/22 04/27/22 Rx rivaroxaban 15 mg tablet (Xarelto) 15 mg PO BIDM #40 tabs 04/22/22 04/27/22 Rx Patient History Medical History Anxiety Cirrhosis of liver FOLLOWS W/ [facility] Stable currently Depression Diabetes mellitus, type 2 IDDM Glucose fluctuates - since Covid in December 2020 On insulin pump Follows with endocrinology Dupuytren's contracture of hand Bilateral hands Dyslipidemia History of COVID-12 January 2021 > [facility], not hospitalized, fever, ear pain- did give infusion in ER No current issues Hypertension IBS (irritable bowel syndrome) Stable Insomnia Kidney stones FOLLOWS WITH DR FUCHS No current issues - monitoring currently Surgical History History of cystoscopy WITH STENTS AND STONE BASKETING History of lithotripsy History of tonsillectomy and adenoidectomy History of total hip arthroplasty LEFT Hx laparoscopic cholecystectomy Hx of colonoscopy Hx of surgical amputation of finger left pinky Hx of total hysterectomy GERALD WITH BSO Hx of tubal ligation Hx of wisdom tooth extraction Family History Father , age 75 Family history of diabetes mellitus Coronary heart disease Brother Family history of diabetes mellitus Mother , age 67 Family history of diabetes mellitus Heart disease Hypertension Grandfather (Paternal) Family history of diabetes mellitus Grandmother (Paternal) Family history of diabetes mellitus Denies family history of Ovarian cancer Breast cancer Colorectal cancer Social History Smoking Status: Former smoker Cigarettes Per Day: 06/2018; Number of Years Since Quit: 4; Second Hand Exposure: Yes; Hx Alcohol Use: No Hx Substance Use: No Preferred Language: Ghanaian Communication Ability: Effective Visual Impairment: No Limitations Mail Sorter And Delivery Required: No Beliefs That Will Affect Care: None marital status: Current Living Situation: Alone current occupational status: employed and disabled current occupation: [employer]-pt does have disability for diabetes- insurance helps Feels Safe at Home: Yes Childhood Exposure to Second-Hand Smoke: No caffeine: Yes Dental Care, Regularly: No Physical Activity Frequency: Does not Exercise Seatbelt Use: always Sunscreen Use: Yes Assistive Devices: None Review of Systems Constitutional: + fatigue and + daytime sleepiness; no fever and no weakness Eyes: no diplopia, no eye pain and no worsening vision Ear, Nose, Mouth, Throat: + epistaxis; no ear pain, no tinnitus, no hearing loss, no dizziness, no snoring, no hoarseness and no dysphagia Respiratory: no cough and no dyspnea Cardiovascular: no chest pain, no palpitations and no lightheadedness Gastrointestinal: + abdominal pain, + nausea, + vomiting, + hematemesis and + melena Genitourinary: no dysuria, no urinary frequency and no urinary incontinence Musculoskeletal: no back pain, no neck pain, no radicular pain, no joint pain and no myalgia Integumentary: no rash and no lesions Neurologic: + confusion; no gait abnormality, no localized weakness, no generalized weakness, no tingling, no numbness, no tremor(s), no abnormal movements, no headache(s), no abnormal speech and no memory loss Psychiatric: no depression, no irritability, no anxiety, no difficulty concentrating, no confusion and no hallucinations Endocrine: no fatigue and no flushing Hematologic / Lymphatic: no easy bleeding and no easy bruising Allergy / Immunological: no urticaria and no problem reported Exam (Neuro) Physical Exam: The patient is right-handed. The patient isVery sleepy but arouses with voice. She will focus when being spoken to, however, will drift back off to sleep if left alone. Speech is soft, but without any aphasia or dysarthria. The patient can name objects, repeat phrases, and has normal spontaneous speech. Mentation and thought processes seem intact, with orientation to person, place and time. she did not know the month or the date but knew the season, the year, where she was, her age, and basic facts of history. Attention and concentration are reasonable when pushed. Mood and affect are normal and appropriate. General appearance and grooming are normal. Short and long-term memory are reasonable. The discs are sharp with positive venous pulsations bilaterally. There are no exudates, hemorrhages, or blood vessel changes seen. Pupils are 4 mm bilaterally and reactive to light. Extraocular eye muscles are intact without nystagmus. Visual acuity and visual [place] seem normal grossly to confrontation. There are no deficits to sensation in the face in all 3 distributions of the fifth cranial nerve bilaterally. Corneal reflexes are positive bilaterally. Facial strength and symmetry was normal bilaterally. Hearing seems normal bilaterally. Palate moves well without asymmetry. There is normal sternocleidomastoid and trapezius (shoulder shrug) strength bilaterally. Tongue is midline with good strength bilaterally. Neck has a full range of motion without discomfort. There are no cervical bruits bilaterally. There are no cranial or ocular bruits. Heart is without murmur. There is a regular rhythm and rate. Cervical, thoracic, and lumbar spine are nontender to palpation. Gait was not tested. Stance sitting in bed was normal. With outstretched arms there is no drift. There are no resting, postural, or action tremors. There is no ataxia with finger to nose testing. There is good facility in the hands. No other abnormal involuntary movements are noted. Motor strength is 5/5 diffusely in the arms bilaterally including deltoids, biceps, triceps, brachioradialis, wrist flexors and extensors, rice farmworker, and intrinsic hand muscles. Motor strength is 5/5 diffusely in the legs bilaterally including hip flexors, quadriceps, hamstrings, gastrocnemius, tibialis anterior, tibialis posterior, and Peroneii muscles. Toe extensors are normal and there is good bulk in the extensor digitorum brevis muscles bilaterally. The limbs have good tone without rigidity or spasticity. There is no atrophy noted in the muscles. Muscle bulk is normal, there is no tenderness to palpation, no myotonia to percussion, and no fasciculations seen. Sensory examination is intact to touch and pin throughout all 4 limbs diffusely. Reflexes are 1/4 in the biceps, triceps, brachioradialis, quadriceps, and Achilles tendons bilaterally. There is no clonus bilaterally. Toes are downgoing with plantar stimulation bilaterally. Peripheral pulses are present and of normal quality distally in all 4 limbs. There is no peripheral edema noted in the limbs. Results & Data ([facility]) Vital Signs (Past 12 Hours) Vital Signs Temp Pulse Resp BP Pulse Ox Pulse Ox O2 Del Method 04/28/22 07:54 92 04/28/22 07:35 87 16 158/89 H 92 Room Air 04/28/22 06:02 80 20 151/77 H 93 Room Air 04/28/22 04:00 85 20 147/74 H 93 Room Air 04/28/22 02:00 37 C 04/28/22 01:11 80 20 144/79 H 92 Room Air 04/28/22 00:23 89 20 135/79 92 Room Air 04/27/22 23:06 80 20 154/87 H 92 Room Air 04/27/22 21:30 82 20 132/70 95 Room Air 04/27/22 20:32 84 20 144/77 H 95 Room Air O2 Del Method 04/28/22 07:54 Room Air 08/03/22 07:35 04/28/22 06:02 04/28/22 04:00 04/28/22 02:00 04/28/22 01:11 04/28/22 00:23 04/27/22 23:06 04/27/22 21:30 04/27/22 20:32 PG Care Time/CCT Total # of Minutes Spent Total Time Spent with Patient: Total time spent is greater than 50% in coordination of care (as documented) at patient's floor/unit and/or counseling patient: Coding Level of Care Code 19319 Inpt Consult Level 5 Diagnoses Cryptococcal meningitis B45.1 Hematemesis K92.0 Confusion R41.0 Pulmonary emboli I26.99 Acute cor pulmonale presence: without acute cor pulmonale Chronicity: acute Pulmonary embolism type: unspecified DVT (deep venous thrombosis) I82.452 Affected thrombotic vein of extremity: peroneal Chronicity: acute DVT location: lower extremity Laterality: left Balance disorder R26.89 Diabetes mellitus type 2, uncontrolled, without complications Atrial fibrillation I48.91 Time Spent (min) 100 Comment add modifiers as able (1) Pulmonary emboli Acute cor pulmonale presence: without acute cor pulmonale Chronicity: acute Pulmonary embolism type: unspecified Qualified Code(s): I26.99 - Other pulmonary embolism without acute cor pulmonale (2) DVT (deep venous thrombosis) Affected thrombotic vein of extremity: peroneal Chronicity: acute DVT location: lower extremity Laterality: left Qualified Code(s): I82.452 - Acute embolism and thrombosis of left peroneal vein
--- NOTE | 2022-04-28 09:34 | Hospitalist Progress Note ---
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 of fluconazole daily Inasmuch as anticoagulation has been held for acute GI bleed and hematemesis, will continue to hold Xarelto and plan on spinal tap on Tuesday. Dr. Dailey from neurology is following and will coordinate spinal tap (2) Pulmonary emboli: Plan: Recent diagnosis on 04/19/2022 Started on Xarelto for anticoagulation and developed hematic emesis yesterday May need to consider IVC filter Follow on telemetry No evidence of right heart strain on echocardiogram Due to acute nature of PE and DVT, if no further bleeding and H&H remained stable, consider heparin drip until EGD (3) DVT (deep venous thrombosis): Plan: Identified on venous Doppler 04/19/2022 Xarelto on hold due to hematemesis (4) Hypokalemia: Plan: Potassium 2.7. Will replete with 4 potassium chloride IV riders (40 mEq total) as well as 40 mill equivalents of oral potassium chloride Magnesium was also low. We will replete that as well Continue on telemetry Follow serial labs (5) Hypomagnesemia: Plan: Magnesium level 1.4. No diarrhea but patient does have hematic emesis Presumed GI bleed from Xarelto for PE and DVT Will give patient 2 g of magnesium sulfate IV and follow daily labs Continue to follow on telemetry No evidence of torsades on monitor (6) Diabetes: Plan: Hold home medications due to n.p.o. status for acute GI bleed with hematemesis Continue NovoLog sliding scale (7) Cirrhosis of liver: Plan: Nonalcoholic cirrhosis GI consulted and following (8) Depression: Plan: Medications include mirtazapine 30 mg p.o. at bedtime as well as venlafaxine 300 mg p.o. at bedtime Continue home medications while inpatient (9) Hypertension: Plan: Continue metoprolol succinate (Toprol-XL) with hold parameters secondary to GI bleed Follow vital signs per protocol (10) Acute GI bleeding: Plan: Hematemesis Nasogastric tube in place and to suction Will continue with intermittent suction Check H&H every 6 hours x4 No indication for transfusion at this time Gastroenterology is consulted. Appreciate their input. Will most likely require EGD in the next day or 2. (11) DVT prophylaxis: Plan: Currently hold chemical prophylaxis due to acute GI bleed with hematemesis Patient with known DVT as well as PE Consider IVC filter based on EGD report (12) Atrial fibrillation: Plan: Continue metoprolol succinate Follow on telemetry Anticoagulated with Xarelto at home. Anticoagulation is currently held secondary to hematemesis Admission and Anticipated Discharge Date Admission Date: April 27, 2022 Subjective 62-year-old female that presents with acute GI bleed. Complicated h istory over the last several months includes cryptococcal meningitis. She received 2 weeks of treatment with amphotericin B and Flucytosine. She then developed some renal failure and was converted to 800 mg of fluconazole daily with anticipation that she would be on this for a year. She developed severe nausea and vomiting and dose was reduced to 200 mg daily. She has been followed by Brian Bernabe for her cryptococcus. It is unclear what the etiology of the cryptococcal meningitis is at this time. Patient's history was then complicated with admission last week when she was found to have deep vein thrombosis as well as bilateral lower lobe segmental and subsegmental pulmonary emboli. She was started on Xarelto as well as aspirin. She then presented yesterday to the emergency department and found to have acute GI bleed. Patient is noted to have some confusion. She is on mirtazapine 30 mg at bedtime as well as venlafaxine 300 mg at bedtime which may be contributing to her sleepiness. Patient also with hyperglycemia. She currently takes Toujeo insulin 68 units subcutaneously each evening. Hemoglobin A1c on 04/20/2022 was 7.9%. Acute labs reveal hypokalemia with a potassium level of 2.7 and hypomagnesemia with a magnesium level of 1.4. Her other electrolytes seem to be balanced including phosphorus which is 2.7. Patient alert and oriented the time of my visit. She denies any acute abdominal pain. She reports no further vomiting. She does complain of some irritation from nasogastric tube but no gagging. No other acute complaints Review of Systems Review of Systems: A total of 10 systems was reviewed and is negative other than as listed in the HPI Physical Exam Physical Exam: GENERAL : No acute distress EYES: No icterus, gaze conjugate NOSE: No evidence of epistaxis MOUTH: No lesions or candidiasis NECK: Supple LUNGS: CTA B/L, no wheezes, rales or rhonchi HEART: Regular, rate controlled ABDOMEN: Soft, ND, BS Present. Patient does have acute tenderness to palpation in the midepigastric region. Dull to percussion. No rebound tenderness. EXTREMITIES: No LE edema, pedal pulses intact NEURO: A&OX3 Results & Data Results & Data ([facility]) Vital Signs (Past 12 Hours) Vital Signs Temp Pulse Resp BP Pulse Ox Pulse Ox O2 Del Method 04/28/22 09:16 82 16 140/72 91 Room Air 04/28/22 07:54 92 04/28/22 07:35 87 16 158/89 H 92 Room Air 04/28/22 06:02 80 20 151/77 H 93 Room Air 04/28/22 04:00 85 20 147/74 H 93 Room Air 04/28/22 02:00 37 C 04/28/22 01:11 80 20 144/79 H 92 Room Air 04/28/22 00:23 89 20 135/79 92 Room Air 04/27/22 23:06 80 20 154/87 H 92 Room Air 04/27/22 21:30 82 20 132/70 95 Room Air O2 Del Method 04/28/22 09:16 04/28/22 07:54 Room Air 04/28/22 07:35 04/28/22 06:02 04/28/22 04:00 04/28/22 02:00 04/28/22 01:11 04/28/22 00:23 04/27/22 23:06 04/27/22 21:30 Critical Care Results & Data Vital Signs (Past 12 Hours) Vital Signs Temp Pulse Resp BP Pulse Ox Pulse Ox O2 Del Method 04/28/22 09:16 82 16 140/72 91 Room Air 04/28/22 07:54 92 04/28/22 07:35 87 16 158/89 H 92 Room Air 04/28/22 06:02 80 20 151/77 H 93 Room Air 04/28/22 04:00 85 20 147/74 H 93 Room Air 04/28/22 02:00 37 C 04/28/22 01:11 80 20 144/79 H 92 Room Air 04/28/22 00:23 89 20 135/79 92 Room Air 04/27/22 23:06 80 20 154/87 H 92 Room Air 04/27/22 21:30 82 20 132/70 95 Room Air O2 Del Method 04/28/22 09:16 04/28/22 07:54 Room Air 04/28/22 07:35 04/28/22 06:02 04/28/22 04:00 04/28/22 02:00 04/28/22 01:11 04/28/22 00:23 04/27/22 23:06 04/27/22 21:30 Lab & Micro Results (Past 24 Hours) RBC 3.38 M/uL (3.93-5.22) L 04/28/22 WBC 7.68 K/ul (4.8-10.8) 04/28/22 Hgb 8.9 g/dl (12.0-16.0) L 04/28/22 Hct 27.7 % (34.1-44.9) L 04/28/22 MCV 82.8 fL (80.0-100.0) 04/28/22 MCH 27.2 pg (25.0-34.0) 04/28/22 MCHC 32.9 g/dL (32.0-36.0) 04/28/22 RDW Standard Deviation 48.8 fL (36.4-46.3) H 04/28/22 RDW Coefficient of Variation 16.2 % (11.5-14.5) H 04/28/22 Plt Count 165 K/uL (130-400) 04/28/22 MPV 11.7 fL (9.4-12.3) 04/28/22 Neutrophils (%) (Auto) 62.4 % 04/28/22 Lymphocytes (%) (Auto) 27.2 % 04/28/22 Monocytes # (Auto) 0.52 K/uL (0.24-0.82) 04/28/22 Eosinophils # (Auto) 0.21 K/uL (0-0.50) 04/28/22 Immature Granulocyte % (Auto) 0.1 % 04/28/22 Neutrophils # (Auto) 4.79 K/uL (1.4-6.5) 04/28/22 Lymphocytes # (Auto) 2.09 K/uL (1.2-3.4) 04/28/22 Monocytes # (Auto) 0.52 K/uL (0.24-0.82) 04/28/22 Eosinophils # (Auto) 0.21 K/uL (0-0.50) 04/28/22 Basophils # (Auto) 0.06 K/uL (0-0.2) 04/28/22 Immature Granulocyte # (Auto) 0.01 K/uL (0.00-0.02) 2 Na 141 mmol/L (136-145) 04/28/22 K 2.8 mmol/L (3.5-5.1) L 04/28/22 Cl 107 mmol/L (98-107) 04/28/22 CO2 25 mmol/L (21-32) 04/28/22 Anion Gap 9 (3-11) 04/28/22 BUN 21 mg/dl (6-23) 04/28/22 Creatinine 0.98 mg/dl (0.6-1.2) 04/28/22 Estimated GFR ( Amer) 71.2 ml/min 04/28/22 Estimated GFR (Non-Af Amer) 61.4 ml/min 04/28/22 BUN/Creatinine Ratio 21.4 (10-20) H 04/28/22 Glu 249 mg/dl (70-99(Fasting)) H 04/28/22 Ca 8.5 mg/dl (8.5-10.1) 04/28/22 Phosphorus Level 2.7 mg/dl (2.5-4.9) 04/28/22 Total Bilirubin 0.6 mg/dl (0.2-1.0) 04/28/22 AST 36 U/L (13-39) 04/28/22 ALT 18 U/L (7-52) 04/28/22 Alkaline Phosphatase 200 U/L (34-104) H 04/28/22 TP 6.3 gm/dl (6.0-8.3) 04/28/22 Albumin 3.0 gm/dl (3.4-5.0) L 04/28/22 Globulin 3.3 gm/dl (2.5-4.0) 04/28/22 Albumin/Globulin Ratio 0.9 (0.9-2) 04/28/22 Mg 1.7 mg/dl (1.7-2.4) 04/28/22 18:37 Calcium Level 8.5 mg/dl (8.5-10.1) 04/28/22 07:28 Prothromb Time International Ratio 1.4 (0.9-1.1) H 04/28/22 07 :28 Diagnostic Findings (Past 24 Hours) Head CT 04/27/22 20:12 CT SCAN OF THE BRAIN WITHOUT IV CONTRAST CLINICAL HISTORY: Vomiting. History of cryptococcal meningitis. COMPARISON STUDY: CT of the brain dated 03/12/2022. TECHNIQUE: Unenhanced axial CT scan of the brain is performed from the vertex to the skull base. A dose lowering technique was utilized adhering to the principles of ALARA. CT DOSE: 537.48 mGy.cm FINDINGS: Brain parenchyma: There is age-related involutional change noting mild subcortical and periventricular microangiopathic disease. There is no hemorrhage, mass effect, or evidence of acute territorial ischemia by CT criteria. Draper-white matter differentiation is preserved. No extra-axial fluid collection is seen. Ventricles, sulci, cisterns: Prominent secondary to involutional change. Intracranial vasculature: There is atherosclerotic calcification of the cavernous carotid and vertebral arteries. Calvarium: Unremarkable. Sinuses and mastoids: The visualized paranasal sinuses are clear. The mastoid air cells are well pneumatized. Orbits: The bony orbits are grossly intact. IMPRESSION: There is no hemorrhage, mass effect, or evidence of acute territorial ischemia by CT criteria. ACT 112: Negative or not required by law. Electronically signed by: Hunter Martinez M.D. 04/27/2022 8:33 PM Venous Doppler Study 04/28/22 00:14 BILATERAL LOWER EXTREMITY VENOUS DOPPLER HISTORY: Acute pain and swelling of the right lower leg recent DVT/PE COMPARISON STUDY: Doppler study 04/19/2022 FINDINGS: There is normal compressibility, flow, and augmentation within the rig ht lower extremity deep venous structures. Partially occlusive thrombus in the left peroneal vein redemonstrated. IMPRESSION: 1. Deep venous thrombosis of the left peroneal vein redemonstrated. 2. No right lower extremity DVT. ACT 112: Negative or not required by law. Electronically signed by: Markos Tineo M.D. 04/28/2022 6:36 AM I & O Totals 24 Hours 04/27/22 04/28/22 04/29/22 06:59 06:59 06:59 Intake Total 600 / 600 Output Total 300 / 300 Balance 300 / 300 Cumulative 04/27/22 19:27 thru 04/28/22 05:59 Intake Total 600 Output Total 300 Balance 300 RT Ventilator Mngmt (Last Documented) Ventilator Ordered Settings Respiratory Rate 16 04/28/22 09:16 Ventilator - PT Measurements Respiratory Rate 16 PG Care Time/CCT Total # of Minutes Spent Total Time Spent with Patient: Total time spent is greater than 50% in coordination of care (as documented) at patient's floor/unit and/or counseling patient: 40 minutes including bedside visit with patient as well as extensive discussion with Dr. Dailey from neurology and Dr. Salas from gastroenterology Coding Level of Care Code 61210 Subseq Hosp Care Lvl 3 Diagnoses Cryptococcal meningitis B45.1 Pulmonary emboli I26.99 Acute cor pulmonale presence: without acute cor pulmonale Chronicity: acute Pulmonary embolism type: unspecified DVT (deep venous thrombosis) I82.452 Affected thrombotic vein of extremity: peroneal Chronicity: acute DVT location: lower extremity Laterality: left Hypokalemia E87.6 Hypomagnesemia E83.42 Diabetes E11.9 Cirrhosis of liver K74.60 Depression F32.9 Depression Type: unspecified Hypertension I10 Hypertension type: essential hypertension Acute GI bleeding K92.2 DVT prophylaxis Z29.9 Atrial fibrillation I48.91 (1) DVT (deep venous thrombosis) Affected thrombotic vein of extremity: peroneal Chronicity: acute DVT location: lower extremity Laterality: left Qualified Code(s): I82.452 - Acute embolism and thrombosis of left peroneal vein (2) Depression Depression Type: unspecified Qualified Code(s): F32.9 - Major depressive disorder, single episode, unspecified (3) Pulmonary emboli Acute cor pulmonale presence: without acute cor pulmonale Chronicity: acute Pulmonary embolism type: unspecified Qualified Code(s): I26.99 - Other pulmonary embolism without acute cor pulmonale (4) Hypertension Hypertension type: essential hypertension Qualified Code(s): I10 - Essential (primary) hypertension
[2022-04-28] MEDS ORDERED: POTASSIUM CHLORIDE CRTAB 20 MEQ TABCR PO STA (09:39)
[2022-04-28] MEDS: MAGNESIUM SULFATE / D5W 1 GM/100 ML BAG IV SCH ×3 (10:20→23:38)
--- NOTE | 2022-04-28 10:20 | Electrocardiogram Report ---
Test Reason : Blood Pressure : / mmHG Vent. Rate : 085 BPM Atrial Rate : 085 BPM P-R Int : 134 ms QRS Dur : 104 ms QT Int : 406 ms P-R-T Axes : 119 238 153 degrees QTc Int : 483 ms Suspect arm lead reversal, interpretation assumes no reversal Normal sinus rhythm Right superior axis deviation Nonspecific ST abnormality Abnormal ECG When compared with ECG of 21-APR-2022 06:43, Left anterior fascicular block is no longer Present Confirmed by Brendon Nina ([id number]) on 04/28/2022 10:19:55 AM Referred By: REFERRED SELF Confirmed By:Alvino Nina
[2022-04-28] MEDS: POTASSIUM CHLORIDE / WTR 10 MEQ/100 ML PLCT IV SCH ×4 (10:21→23:38)
[2022-04-28 12:44] LABS: Hematocrit (blood only) 27.3 % (34.1-44.9); Hemoglobin 8.8 g/dl (12.0-16.0)
--- NOTE | 2022-04-28 13:17 | Gastrointestinal Consultation ---
Date of Consultation April 28, 2022 Assessment & Plan (1) Hematemesis: -Begin PPI gtt. -H Pylori stool antigen. -Keep NPO after midnight for EGD on 04/29/2022. -Continue to monitor H/H and monitor for further GI bleeding. -Patient is currently hemodynamically stable. Please contact GI if this changes. Supervising Physician Co-Signing Physician Notes Agree with YOLANDA Weir as above Patient states she had a brown BM earlier today, she denies any abdominal pain Gen: Chronic ill-appearing, NG Tube in Left Nare, cooperative Chest: Decreased BS b/l bases CVS: RRR Abd: Soft, NT, ND, +BS Discussed case with YOLANDA Arreguin and Anesthesia: Decision was made to hold on any invasive testing today as patient is HD stable and has not had further bleeding, also, patient would require General anesthesia today as she had hemat emesis on arrival. She will continue PPI gtt at present. If she has any further overt GI bleeding, recommend EGD for further evaluation. Will keep NPO after midnight in the event she has further GI bleeding. Continue current therapy and supportive care. History of Present Illness Reason for Consultation: Hematemesis Attending Physician: Lucian Soto History of Present Illness Patient is a 62 yo female with PMH of Afib, HTN, DM2, mitral regurgitation, migraine, depression, & recent diagnose of DVT/PE placed on Xarelto and cryptococcal meningitis for which she is following with [facility] and [facility] neurology. She was recently hospitalized at [facility] for cryptococcal meningitis and was placed on treatment. She developed shortness of breath after discharge and had an outpatient CT which identified bilateral pulmonary emboli. She was hospitalized for 4 days due to this. She was transitioned to Xarelto upon discharge. Patient notes that since that time she has had a poor appetite. She notes that this morning she developed nausea/vomiting and was alarmed to see a significant amount of blood. She notes she has had dark, tarry stools for the past 2 weeks since beginning Xarelto. Her current H/H is 8.8/27.3. An NG tube is in place. She denies NSAID use. She denies history of ulcers, She denies other acute concerns at present. Her Xarelto is on hold. Of note, she is not on PPI therapy at home. Allergies Allergy/AdvReac Type Severity Reaction Status Date / Time Penicillins Allergy Intermediate Hives Verified 04/27/22 21:30 atorvastatin Allergy Unknown CAN'T Verified 04/27/22 21:30 REMEMBER gemfibrozil [From Lopid] Allergy Unknown CAN'T Verified 04/27/22 21:30 REMEMBER acetaminophen [From Tylenol] AdvReac Severe CAN NOT Verified 04/27/22 21:30 TAKE D/T LIVER ISSUES ibuprofen AdvReac Severe liver Verified 04/27/22 21:30 issues rosuvastatin AdvReac Intermediate Muscle Pain Verified 04/27/22 21:30 Home Medications Medication Instructions Recorded Confirmed Type aspirin 81 mg tablet,delayed 81 mg PO HS 06/05/19 04/27/22 History release multivitamin 1 tab PO QAM 09/07/19 04/27/22 History Contour Next Test Strips (blood #300 ea 12/29/20 04/26/22 Rx sugar diagnostic) blood-glucose sensor (Dexcom G6 #3 ea 01/22/21 04/26/22 History Sensor) blood-glucose transmitter (Dexcom #1 ea 01/22/21 04/26/22 History G6 Transmitter) mirtazapine 30 mg tablet 30 mg PO HS #90 tabs 05/06/21 04/27/22 Rx venlafaxine 150 mg 300 mg PO HS #180 caps 07/01/21 04/27/22 Rx capsule,extended release 24 hr (Effexor XR) acetone (urine) test (Ketostix) #50 ea 10/14/21 04/26/22 Rx pen needle, diabetic 32 gauge x #120 ea 11/06/21 04/26/22 Rx 5/32" (BD Ultra-Fine Jody Pen Needle) insulin aspart U-100 100 unit/mL 0 unit subcut TIDM 03/01/22 04/27/22 History (3 mL) subcutaneous pen insulin glargine U-300 conc 300 68 unit subcut QPM 03/01/22 04/27/22 History unit/mL (1.5 mL) subcutaneous pen (Jeremiah SoloStar U-300 Insulin) metoprolol succinate 25 mg 25 mg PO QAM #90 tabs 04/16/22 04/27/22 Rx tablet,extended release 24 hr fluconazole 100 mg tablet 200 mg PO QAM #30 tabs 04/22/22 04/27/22 Rx rivaroxaban 15 mg tablet (Xarelto) 15 mg PO BIDM #40 tabs 04/22/22 04/27/22 Rx Patient History Medical History Anxiety Cirrhosis of liver FOLLOWS W/ [facility] Stable currently Depression Diabetes mellitus, type 2 IDDM Glucose fluctuates - since Covid in December 2020 On insulin pump Follows with endocrinology Dupuytren's contracture of hand Bilateral hands Dyslipidemia History of COVID-12 January 2021 > [facility], not hospitalized, fever, ear pain- did give infusion in ER No current issues Hypertension IBS (irritable bowel syndrome) Stable Insomnia Kidney stones FOLLOWS WITH DR FUCHS No current issues - monitoring currently Surgical History History of cystoscopy WITH STENTS AND STONE BASKETING History of lithotripsy History of tonsillectomy and adenoidectomy History of total hip arthroplasty LEFT Hx laparoscopic cholecystectomy Hx of colonoscopy Hx of surgical amputation of finger left pinky Hx of total hysterectomy GERALD WITH BSO Hx of tubal ligation Hx of wisdom tooth extraction Family History Father , age 75 Family history of diabetes mellitus Coronary heart disease Brother Family history of diabetes mellitus Mother , age 67 Family history of diabetes mellitus Heart disease Hypertension Grandfather (Paternal) Family history of diabetes mellitus Grandmother (Paternal) Family history of diabetes mellitus Denies family history of Ovarian cancer Breast cancer Colorectal cancer Social History Smoking Status: Never smoker Cigarettes Per Day: 06/2018; Number of Years Since Quit: 4; Second Hand Exposure: Yes; Hx Alcohol Use: No Hx Substance Use: No Preferred Language: [place] Communication Ability: Effective Visual Impairment: No Limitations Buckle And Button Maker Required: No Beliefs That Will Affect Care: None marital status: Current Living Situation: Alone current occupational status: employed and disabled current occupation: [employer] does have disability for diabetes- insurance helps How many Children do You have: 2 Feels Safe at Home: Yes Childhood Exposure to Second-Hand Smoke: No caffeine: Yes Dental Care, Regularly: No Physical Activity Frequency: Does not Exercise Seatbelt Use: always Sunscreen Use: Yes Assistive Devices: None Review of Systems Constitutional: + fatigue Respiratory: no cough and no dyspnea Cardiovascular: no chest pain Gastrointestinal: + hematemesis; no abdominal pain and no blood in stools Musculoskeletal: no problem reported Integumentary: no problem reported Psychiatric: no problem reported Hematologic / Lymphatic: no unexplained weight loss Physical Exam Constitutional: WD/WN, vitals as above Neck: normal visual inspection Respiratory: normal respiratory effort, lungs clear to auscultation Cardiovascular: Rate/Rhythm: regular rate Gastrointestinal (Abdomen): normal bowel sounds, soft, nontender, no hepatosplenomegaly NG with old blood Musculoskeletal: Head/Neck/Chest: normocephalic Psychiatric: Orientation: alert and oriented x 3 Results & Data ([facility]) Vital Signs (Past 12 Hours) Vital Signs Temp Pulse Resp BP Pulse Ox Pulse Ox O2 Del Method 04/28/22 10:18 92 H 16 165/89 H 94 Room Air 04/28/22 09:16 82 16 140/72 91 Room Air 04/28/22 07:54 92 04/28/22 07:35 87 16 158/89 H 92 Room Air 04/28/22 06:02 80 20 151/77 H 93 Room Air 04/28/22 04:00 85 20 147/74 H 93 Room Air 04/28/22 02:00 37 C O2 Del Method 04/28/22 10:18 04/28/22 09:16 04/28/22 07:54 Room Air 04/28/22 07:35 04/28/22 06:02 04/28/22 04:00 04/28/22 02:00 PG Care Time/CCT Total # of Minutes Spent Total Time Spent with Patient: Total time spent is greater than 50% in coordination of care (as documented) at patient's floor/unit and/or counseling patient: Coding Level of Care Code 86675 Inpt Consult Level 4 Diagnoses Hematemesis K92.0
[2022-04-28] MEDS: PANTOprazole 40 MG in DEXTROSE 5% 100 ML IV SCH ×2 (14:27→20:08)
[2022-04-28 18:20] LABS: Hematocrit (blood only) 27.7 % (34.1-44.9); Hemoglobin 8.9 g/dl (12.0-16.0)
[2022-04-28 19:20] LABS: Magnesium 1.7 mg/dl (1.7-2.4); Potassium 2.8 mmol/L (3.5-5.1)
[2022-04-28] MEDS ORDERED: POTASSIUM CHLORIDE / WTR 10 MEQ/100 ML PLCT IV SCH (22:15)
[2022-04-29 00:26] LABS: Hematocrit (blood only) 26.2 % (34.1-44.9); Hemoglobin 8.5 g/dl (12.0-16.0)
[2022-04-29] MEDS: INSULIN ASPART PER UNIT SC SCH ×4 (00:34→19:33)
[2022-04-29] MEDS: POTASSIUM CHLORIDE / WTR 10 MEQ/100 ML PLCT IV SCH ×7 (00:35→08:49)
[2022-04-29] MEDS: MAGNESIUM SULFATE / D5W 1 GM/100 ML BAG IV SCH (01:14)
[2022-04-29] MEDS: PANTOprazole 40 MG in DEXTROSE 5% 100 ML IV SCH ×4 (01:14→19:32)
[2022-04-29] MEDS: FLUCONAZOLE 200 MG/100 ML BAG IV SCH (01:17)
[2022-04-29 04:29] LABS: Hematocrit (blood only) 26.5 % (34.1-44.9); Hemoglobin 8.5 g/dl (12.0-16.0); Mean Corpuscular Hemoglobin 27.2 pg (25.0-34.0); Mean Corpuscular Hgb Conc 32.1 g/dL (32.0-36.0); Mean Corpuscular Volume 84.9 fL (80.0-100.0); Mean Platelet Volume 11.6 fL (9.4-12.3); Platelet Count 156 K/uL (130-400); RDW Coefficient of Variation 16.5 % (11.5-14.5); Red Blood Count 3.12 M/uL (3.93-5.22); White Blood Count 8.22 K/ul (4.8-10.8)
[2022-04-29 04:53] LABS: BUN Creatinine Ratio 20.2 (10-20); Est GFR (African American) 66.2 ml/min; Est GFR (Non-African American) 57.1 ml/min; Phosphorus 2.4 mg/dl (2.5-4.9); Potassium 3.2 mmol/L (3.5-5.1)
--- NOTE | 2022-04-29 06:21 | Billing Data ---
Date of Service April 29, 2022 Coding Level of Care Code 89039 Initial Inpt Care Lvl 3
[2022-04-29] MEDS ORDERED: POTASSIUM CHLORIDE / WTR 10 MEQ/100 ML PLCT IV SCH (08:30)
[2022-04-29] MEDS ORDERED: METOPROLOL TARTRATE 1 MG/ML VIAL IV ONE (09:03)
[2022-04-29] MEDS: METOPROLOL TARTRATE 1 MG/ML VIAL IV SCH ×3 (09:05→19:32)
--- NOTE | 2022-04-29 09:25 | Neurology Progress Note ---
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 She was treated with at least 2 weeks of amphotericin B and flucytosine. She was then switched to fluconazole but she could not tolerate the typical dose with abdominal pain, nausea, and vomiting. When lowered to the current dose of 200 mg a day she has tolerated this better. Unfortunately she had pulmonary emboli and left lower extremity DVT requiring anticoagulation. She has been on 81 mg aspirin for small vessel ischemia. She then developed hematemesis /GI bleeding. The patient has been mildly encephalopathic/ confused Intermittently in the last month, but since admission I believe it is mostly "sleepy and tired". She is anemic and had a glucose of over 400. in addition she has hypokalemia (which would make her weak) and hypomagnesemia. She has a history of hepatic cirrhosis, uncontrolled diabetes, and atrial fibrillation. An echocardiogram April 20, was stable compared to the previous scan On neurologic examination today she has no focal findings or meningeal signs. There are some new rhythm issues including V-tach and SVT. Recommendations: 1. obtain ammonia, TSH, B12 2. because of her history of clotting and now significant bleeding, her anticoagulant and antiplatelet medication need to be stopped. She would be a candidate for an IVC filter 3. Continue fluconazole 200 mg daily. 4. I would be interested in an lumbar puncture to make sure there is no recurrence /residual cryptococcus. We would need an opening pressure and all usual parameters and cultures. She would have to be off anticoagulation for several days, and ideally, off the aspirin for approximately 1 week. Perhaps tomorrow we could get an LP if she is stable clinically. Given her cardiac dysrhythmias she is currently not stable for procedures. 5. Treat hypokalemia and hypomagnesemia As you are doing 6. GI will be doing procedures to evaluate her GI bleeding 7. consider blood transfusion if anemia becomes worse. 8. I do not believe the patient needs an EEG or MRI of the brain at this time. Overall, I spent a total of 35 minutes with this case including review of records, direct evaluation the patient at bedside, and discussion the case with the patient and RN at bedside, including differential diagnosis and treatment options. Admission and Anticipated Discharge Date Admission Date: April 27, 2022 Subjective This morning, the patient has no complaint of pain, headache, dizziness, chest pain or palpitations, abdominal pain or nausea, weakness or numbness in the limbs, or neck pain. patient is tired The patient has been having frequent, intermittent episodes of V-tach and SVT since last night. They last up to 20 seconds or so. These are largely asymptomatic. Her potassium remains low this morning at 3.2 but she is getting potassium replacement. Repeat venous Doppler showed the left lower extremity DVT still. Hemoglobin hematocrit are down to 8.5 and 26.5. White count remains low. Glucose was 220. she is afebrile. Results & Data ([facility]) Vital Signs (Past 12 Hours) Vital Signs Temp Pulse Pulse Resp BP BP Pulse Ox 04/29/22 09:05 136 H 150/98 H 04/28/22 22:16 95 H 04/28/22 21:38 103 H 04/29/22 03:10 37.0 C 102 H 18 172/89 H 94 04/28/22 22:25 O2 Del Method 04/29/22 09:05 04/28/22 22:16 04/28/22 21:38 04/29/22 03:10 Room Air 04/28/22 22:25 Room Air Exam (Neuro) Physical Exam: She is awake and alert. She is very fatigued but does not have obvious encephalopathy, confusion, dysarthria, or aphasia. Extraocular eye muscles are intact without nystagmus. There is no facial droop. Tongue is midline. Coordination seems normal in the arms without tremor or ataxia. Motor strength is symmetrical in all 4 limbs. There are no abnormal involuntary movements. PG Care Time/CCT Total # of Minutes Spent Total Time Spent with Patient: Total time spent is greater than 50% in coordination of care (as documented) at patient's floor/unit and/or counseling patient: Coding Level of Care Code 46884 Subseq Hosp Care Lvl 3 Diagnoses Cryptococcal meningitis B45.1 Hematemesis K92.0 Confusion R41.0 Pulmonary emboli I26.99 Acute cor pulmonale presence: without acute cor pulmonale Chronicity: acute Pulmonary embolism type: unspecified DVT (deep venous thrombosis) I82.452 Affected thrombotic vein of extremity: peroneal Chronicity: acute DVT location: lower extremity Laterality: left Balance disorder R26.89 Diabetes mellitus type 2, uncontrolled, without complications Atrial fibrillation I48.91 (1) Pulmonary emboli Acute cor pulmonale presence: without acute cor pulmonale Chronicity: acute Pulmonary embolism type: unspecified Qualified Code(s): I26.99 - Other pulmonary embolism without acute cor pulmonale (2) DVT (deep venous thrombosis) Affected thrombotic vein of extremity: peroneal Chronicity: acute DVT location: lower extremity Laterality: left Qualified Code(s): I82.452 - Acute embolism and thrombosis of left peroneal vein
--- NOTE | 2022-04-29 09:38 | History & Physical Bridge Note ---
Date of Service April 29, 2022 History & Physical Bridge Note I have examined the patient, reviewed the History & Physical and in the interval since the performance of the History & Physical I have noted the following changes of clinical significance: no changes noted. H/H is 8.5/26.5. Patient has an NG tube in place that has been draining dark bile. She is on IV PPI gtt. Anticoagulation has been held. Keep NPO & proceed with EGD today.
[2022-04-29 11:25] LABS: BUN Creatinine Ratio 19.2 (10-20); Calcium 8.1 mg/dl (8.5-10.1); Est GFR (African American) 66.2 ml/min; Est GFR (Non-African American) 57.1 ml/min; Potassium 3.8 mmol/L (3.5-5.1)
--- NOTE | 2022-04-29 12:40 | Anesthesiology Progress Note ---
Date of Service April 29, 2022 Anesthesia Post Procedure Vital Signs Vital Signs: Temp Pulse Pulse Resp BP BP Pulse Ox 04/29/22 12:17 37.0 C 78 16 154/85 H 96 04/29/22 11:40 37.2 C 88 18 145/81 H 95 04/29/22 11:46 92 H 138/81 04/29/22 09:05 136 H 150/98 H 04/29/22 09:05 136 H 150/98 H 04/28/22 22:16 95 H 04/28/22 21:38 103 H 04/29/22 03:10 37.0 C 102 H 18 172/89 H 94 04/28/22 22:25 04/28/22 15:22 36.8 C 84 16 146/93 H 94 04/28/22 14:16 89 16 156/70 H 95 04/28/22 13:39 90 16 165/83 H 93 O2 Del Method 04/29/22 12:17 Room Air 04/29/22 11:40 Room Air 04/29/22 11:46 04/29/22 09:05 04/29/22 09:05 04/28/22 22:16 04/28/22 21:38 04/29/22 03:10 Room Air 04/28/22 22:25 Room Air 04/28/22 15:22 Room Air 04/28/22 14:16 Room Air 04/28/22 13:39 Room Air Pain Intensity Throat: Pain Intensity: 4 Transfer of Care Handoff Completed per policy Notes Mental Status: alert / awake / arousable and participated in evaluation Patient Amnestic to Procedure: Yes Nausea / Vomiting: adequately controlled Pain: adequately controlled Airway Patency, RR, SpO2: stable & adequate BP & HR: stable & adequate Hydration State: stable & adequate Anesthetic Complications: no major complications apparent and Pt Satisfied with anesthetic care
--- NOTE | 2022-04-29 12:44 | Anesthesiology Consultation ---
Date of Service April 29, 2022 Assessment & Plan Chart Review Chart Review: Acceptable Risk for Surgery and Patient NOT seen in Pre Admission Testing Consults Requested read and appreciated consults ASA ASA3 Proposed Anesthesia Anesthesia Type: MAC Risk / Benefits Reviewed With: PT / POA / Parent / Guardian, Accepts Plan and I nformed Consent Obtained History Surgery Operation Date: 04/29/22 17:45 Proposed Procedures p Esophagogastroduodenoscopy Dr. Gonsalez - Krishna Gonsalez MD Height/Weight Height: 5 ft 4 in Weight: 78 kg Allergies Allergy/AdvReac Type Severity Reaction Status Date / Time Penicillins Allergy Intermediate Hives Verified 04/27/22 21:30 atorvastatin Allergy Unknown CAN'T Verified 04/27/22 21:30 REMEMBER gemfibrozil [From Lopid] Allergy Unknown CAN'T Verified 04/27/22 21:30 REMEMBER acetaminophen [From Tylenol] AdvReac Severe CAN NOT Verified 04/27/22 21:30 TAKE D/T LIVER ISSUES ibuprofen AdvReac Severe liver Verified 04/27/22 21:30 issues rosuvastatin AdvReac Intermediate Muscle Pain Verified 04/27/22 21:30 Medications Home Medications Medication Instructions Recorded Confirmed Last Taken aspirin 81 mg tablet,delayed 81 mg PO HS 06/05/19 04/27/22 04/26/22 release multivitamin 1 tab PO QAM 09/07/19 04/27/22 04/27/22 Contour Next Test Strips (blood #300 ea 12/29/20 04/26/22 Unknown sugar diagnostic) blood-glucose sensor (Dexcom G6 #3 ea 01/22/21 04/26/22 Unknown Sensor device) blood-glucose transmitter (Dexcom #1 ea 01/22/21 04/26/22 Unknown G6 Transmitter device) mirtazapine 30 mg tablet 30 mg PO HS #90 tabs 05/06/21 04/27/22 04/26/22 venlafaxine 150 mg 300 mg PO HS #180 caps 07/01/21 04/27/22 04/26/22 capsule,extended release 24 hr (Effexor XR) acetone (urine) test (Ketostix #50 ea 10/14/21 04/26/22 Unknown strips) pen needle, diabetic 32 gauge x #120 ea 11/06/21 04/26/22 Unknown 5/32" (BD Ultra-Fine Jody Pen Needle) insulin aspart U-100 100 unit/mL 0 unit subcut TIDM 03/01/22 04/27/22 Unknown (3 mL) subcutaneous pen insulin glargine U-300 conc 300 68 unit subcut QPM 03/01/22 04/27/22 04/26/22 unit/mL (1.5 mL) subcutaneous pen (Touqueenie SoloStar U-300 Insulin) metoprolol succinate 25 mg 25 mg PO QAM #90 tabs 04/16/22 04/27/22 04/27/22 tablet,extended release 24 hr fluconazole 100 mg tablet 200 mg PO QAM #30 tabs 04/22/22 04/27/22 04/27/22 rivaroxaban 15 mg tablet (Xarelto) 15 mg PO BIDM #40 tabs 04/22/22 04/27/22 04/27/22 08:00 Active Medications Generic Name Dose Route Start Last Admin Trade Name Freq PRN Reason Stop Dose Admin Fluconazole 200 mg in 100 mls @ 100 mls/hr 04/28/22 00:30 04/29/22 02:21 Diflucan IV 05/08/22 00:29 Infused Q24H HALEY Infusion Protocol Pantoprazole Sodium 40 mg/ 100 mls @ 20 mls/hr 04/28/22 13:30 04/29/22 10:03 Dextrose IV 05/28/22 13:29 8 mg/hr Q5H HALEY 20 mls/hr Administration 8 MG/HR Insulin Aspart 0 units 04/28/22 02:30 04/29/22 11:43 Insulin Aspart Per Unit SC 05/28/22 02:29 4 units Q6 HALEY Administration Metoprolol Tartrate 5 mg 04/29/22 09:05 04/29/22 11:46 Metoprolol Tartrate 1 Mg/Ml Vial IV 05/29/22 09:04 5 mg Q6 HALEY Administration NPO Date Last Intake of Fluids: 04/27/22 Time Last Intake of Fluids: 12:00 Date Last Intake of Solids: 04/27/22 Time Last Intake of Solids: 12:00 Past Medical History Medical History Anxiety Cirrhosis of liver FOLLOWS W/ [facility] Stable currently Depression Diabetes mellitus, type 2 IDDM Glucose fluctuates - since Covid in December 2020 On insulin pump Follows with endocrinology Dupuytren's contracture of hand Bilateral hands Dyslipidemia History of COVID-12 January 2021 > [facility], not hospitalized, fever, ear pain- did give infusion in ER No current issues Hypertension IBS (irritable bowel syndrome) Stable Insomnia Kidney stones FOLLOWS WITH DR FUCHS No current issues - monitoring currently Exercise / Class Metabolic Activity III < 4 Walking/Shop/Light housework Past Family History Family History Father , age 75 Family history of diabetes mellitus Coronary heart disease Brother Family history of diabetes mellitus Mother , age 67 Family history of diabetes mellitus Heart disease Hypertension Grandfather (Paternal) Family history of diabetes mellitus Grandmother (Paternal) Family history of diabetes mellitus Denies family history of Ovarian cancer Breast cancer Colorectal cancer Past Surgical History Surgical History History of cystoscopy WITH STENTS AND STONE BASKETING History of lithotripsy History of tonsillectomy and adenoidectomy History of total hip arthroplasty LEFT Hx laparoscopic cholecystectomy Hx of colonoscopy Hx of surgical amputation of finger left pinky Hx of total hysterectomy GERALD WITH BSO Hx of tubal ligation Hx of wisdom tooth extraction Past Anesthesia History No Hx of Anesthesia Complications and No Family Hx of Anesthesia Complications History of PONV No Hx of PONV and No Hx of Motion Sickness Social History Smoking Status: Never smoker tobacco type: cigarettes Smoking cigarettes per day: 06/2018 Hx Alcohol Use: No alcohol intake frequency: holidays/special occasions only Hx Substance Use: No substance use type: does not use Review of Systems Constitutional: as per Subjective / HPI Eyes: as per Subjective / HPI Ear, Nose, Mouth, Throat: as per Subjective / HPI and + pain with swallowing NGT in situ Respiratory: as per Subjective / HPI Gastrointestinal: as per Subjective / HPI Genitourinary (Female): as per Subjective / HPI Musculoskeletal: as per Subjective / HPI Integumentary: as per Subjective / HPI Neurologic: as per Subjective / HPI Psychiatric: as per Subjective / HPI Endocrine: as per Subjective / HPI Hematologic / Lymphatic: as per Subjective / HPI Allergy / Immunological: as per Subjective / HPI Physical Exam Vital Signs Last Vital Signs Temp 37.0 C 04/29/22 12:17 Pulse 78 04/29/22 12:17 Resp 16 04/29/22 12:17 BP 154/85 H 04/29/22 12:17 Pulse Ox 96 04/29/22 12:17 O2 Del Method 04/29/22 12:17 Constitutional mildly distressed ENMT Mouth: no TMJ abnormality and no dentition abnormality Thyromental Distance: > or= 3.5 Finger Breadths Mallampati Class: II NGT Neck normal visual inspection Respiratory normal respiratory effort Cardiovascular Rate/Rhythm: regular rate and regular rhythm PVCs Musculoskeletal Spine: normal cervical ROM Neurologic moves all extremities Psychiatric Orientation: alert and oriented x 3 Testing Laboratory Results 04/29/22 04:17 04/29/22 10:54 PT 15.1 Seconds (9.0-12.0) H 04/28/22 07:28 INR 1.4 (0.9-1.1) H 04/28/22 07:28 Blood Type B Positive 04/28/22 01:14 Antibody Screen NEGATIVE 04/28/22 01:14 04/29/22 05:24 POC Glucose 252 H
[2022-04-29] MEDS ORDERED: ONDANSETRON INJ 2 MG/ML 2 ML VIAL ONE (13:15)
[2022-04-29] MEDS ORDERED: LIDOCAINE 2% MPF LOCAL 5 ML VIAL INFIL ONE (13:15)
[2022-04-29] MEDS ORDERED: GLYCOPYRROLATE 0.2 MG/ML VIAL ONE (13:15)
[2022-04-29] MEDS ORDERED: PROPOFOL IV EMULSION 10 MG/ML 20 ML VIAL IV ONE (13:15)
[2022-04-29] MEDS ORDERED: BENZOCAINE/TETRACAIN/BUTAM 50 APPLN/5 GM CAN EXT ONE (13:17)
--- NOTE | 2022-04-29 13:41 | GI REPORT ---
Patient Name: Lynne Marcelo Procedure Date: 04/29/2022 1:13 PM Date of : 1960 Admit Type: Inpatient Age: 62 Gender: Female Attending MD: Krishna Gonsalez MD Procedure: Upper GI endoscopy Providers: Krishna Gonsalez MD Referring MD: Lucian Soto M.d. Indications: Suspected upper gastrointestinal bleeding Medicines: Monitored Anesthesia Care Complications: No immediate complications. Estimated blood loss: None. Estimated Blood Loss: Estimated blood loss: none. Procedure: Pre-Anesthesia Assessment: - Prior Anticoagulants: The patient has taken no previous anticoagulant or antiplatelet agents. - ASA Grade Assessment: II - A patient with mild systemic disease. After obtaining informed consent, the endoscope was passed under direct vision. Throughout the procedure, the patient's blood pressure, pulse, and oxygen saturations were monitored continuously. The Endoscope was introduced through the mouth, and advanced to the second part of duodenum. The upper GI endoscopy was accomplished without difficulty. The patient tolerated the procedure well. Findings: The examined esophagus was normal. Diffuse mild inflammation characterized by erythema and shallow ulcerations was found in the stomach. Biopsies were taken with a cold forceps for Helicobacter pylori testing. Estimated blood loss: none. The duodenal bulb and second portion of the duodenum were normal. Impression: - Normal esophagus. - Gastritis. Biopsied. - Normal duodenal bulb and second portion of the duodenum. Recommendation: - [facility]. - Advance diet as tolerated today. - Await pathology results. Krishna Gonsalez MD 04/29/2022 1:41:42 PM This report has been signed electronically. Note Initiated On: 04/29/2022 1:13 PM Number of Addenda: 0 I attest to the content of the Intraoperative Record and orders documented therein, exceptions below {[id number]}
[2022-04-29] MEDS ORDERED: Heparin IV Adult Wt-Based Low-Dose *NO* Bolus Protocol IV SCH (15:45)
[2022-04-29] MEDS ORDERED: HEPARIN SODIUM/DEXTROSE 25,000 UNITS/500 ML BAG IV SCH (16:10)
--- NOTE | 2022-04-29 17:49 | Hospitalist Progress Note ---
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 of fluconazole daily Inasmuch as anticoagulation has been held for acute GI bleed and hematemesis, will continue to hold Xarelto and plan on spinal tap on Tuesday. Dr. Dailey from neurology is following and will coordinate spinal tap Patient was started on heparin drip today following EGD. Will hold heparin drip at 2 AM in the event that Dr. Dailey proceeds with spinal tap first thing in the morning. (2) Pulmonary emboli: Plan: Recent diagnosis on 04/19/2022 Started on Xarelto for anticoagulation and developed hematic emesis yesterday May need to consider IVC filter Follow on telemetry No evidence of right heart strain on echocardiogram Due to acute nature of PE and DVT, if no further bleeding and H&H remained stable Heparin drip initiated today. Hold at 2 AM for probable spinal tap as listed above. (3) DVT (deep venous thrombosis): Plan: Identified on venous Doppler 04/19/2022 Xarelto on hold due to hematemesis See above regarding heparin drip (4) Hypokalemia: Plan: Potassium improved to 3.2 today. Received an additional 4 potassium chloride IV riders (40 mEq total) Magnesium improved. Continue on telemetry Follow serial labs (5) Hypomagnesemia: Plan: Magnesium level 1.4. Now 2.0 today No diarrhea but patient does have hematic emesis Presumed GI bleed from Xarelto for PE and DVT Follow daily labs Continue to follow on telemetry (6) Diabetes: Plan: Hold home medications due to n.p.o. status for acute GI bleed with hematemesis Continue NovoLog sliding scale (7) Cirrhosis of liver: Plan: Nonalcoholic cirrhosis GI consulted and following (8) Depression: Plan: Medications include mirtazapine 30 mg p.o. at bedtime as well as venlafaxine 300 mg p.o. at bedtime Continue home medications while inpatient (9) Hypertension: Plan: Resume home medications tomorrow. (Metoprolol succinate 25 mg p.o. daily) Follow vital signs per protocol (10) Acute GI bleeding: Plan: Hematemesis Nasogastric tube removed with the EGD Gastroenterology is consulted. Appreciate their input. EGD with shallow ulcers in the stomach with gastritis. Biopsies taken and pathology results are pending. Continue PPI Advance diet as tolerated (11) DVT prophylaxis: Plan: Heparin drip with low weight-based protocol Patient with known DVT as well as PE Consider IVC filter based on EGD report (12) Atrial fibrillation: Plan: Continue metoprolol succinate Follow on telemetry Anticoagulated with Xarelto at home. Low weight-based protocol of heparin drip initiated. Orders to hold for spinal tap tomorrow. Will need to be reinstituted after spinal tap (13) Acute metabolic encephalopathy: Admission and Anticipated Discharge Date Admission Date: April 27, 2022 Subjective Attending: Dr. Landry Patient seen and examined in room 208 on 2 separate visits. She denies any further nausea or vomiting. She is exhibiting hypertension as her oral medications have been held while she is n.p.o. awaiting EGD. Lopressor 5 mg IV every 6 hours was ordered and administered resulting in correction of SVT and improving her blood pressure. Patient denies any acute findings. She has no headaches. She is alert and oriented. She does appear somewhat lethargic but answers questions appropriately and follows commands. She has no acute complaints. Review of Systems Review of Systems: A total of 10 systems was reviewed and is negative other than as listed in the HPI Physical Exam Physical Exam: GENERAL : No acute distress EYES: No icterus, gaze conjugate NOSE: No evidence of epistaxis. Nasogastric tube is in place MOUTH: No lesions or candidiasis NECK: Supple LUNGS: CTA B/L, no wheezes, rales or rhonchi HEART: Regular, rate controlled ABDOMEN: Soft, NT, ND, BS Present EXTREMITIES: No LE edema, pedal pulses intact NEURO: A&OX3 Results & Data Results & Data ([facility]) Vital Signs (Past 12 Hours) Vital Signs Temp Pulse Pulse Resp BP BP Pulse Ox 04/29/22 15:52 37.1 C 84 14 147/80 H 93 04/29/22 13:47 95 04/29/22 14:04 91 H 16 132/74 95 04/29/22 13:53 95 H 18 130/64 96 04/29/22 13:38 96 H 16 128/77 95 04/29/22 12:17 37.0 C 78 16 154/85 H 96 04/29/22 11:40 37.2 C 88 18 145/81 H 95 04/29/22 11:46 92 H 138/81 04/29/22 09:05 136 H 150/98 H 04/29/22 09:05 136 H 150/98 H O2 Del Method 04/29/22 15:52 Room Air 04/29/22 13:47 04/29/22 14:04 Room Air 04/29/22 13:53 Room Air 04/29/22 13:38 Room Air 04/29/22 12:17 Room Air 04/29/22 11:40 Room Air 04/29/22 11:46 04/29/22 09:05 04/29/22 09:05 Critical Care Results & Data Vital Signs (Past 12 Hours) Vital Signs Temp Pulse Pulse Resp BP BP Pulse Ox 04/29/22 15:52 37.1 C 84 14 147/80 H 93 04/29/22 13:47 95 04/29/22 14:04 91 H 16 132/74 95 04/29/22 13:53 95 H 18 130/64 96 04/29/22 13:38 96 H 16 128/77 95 04/29/22 12:17 37.0 C 78 16 154/85 H 96 04/29/22 11:40 37.2 C 88 18 145/81 H 95 04/29/22 11:46 92 H 138/81 04/29/22 09:05 136 H 150/98 H 04/29/22 09:05 136 H 150/98 H O2 Del Method 04/29/22 15:52 Room Air 04/29/22 13:47 04/29/22 14:04 Room Air 04/29/22 13:53 Room Air 04/29/22 13:38 Room Air 04/29/22 12:17 Room Air 04/29/22 11:40 Room Air 04/29/22 11:46 04/29/22 09:05 04/29/22 09:05 Lab & Micro Results (Past 24 Hours) RBC 3.20 M/uL (3.93-5.22) L 05/04/22 WBC 9.69 K/ul (4.8-10.8) 05/04/22 Hgb 8.8 g/dl (12.0-16.0) L 05/04/22 Hct 27.6 % (34.1-44.9) L 05/04/22 MCV 86.3 fL (80.0-100.0) 05/04/22 MCH 27.5 pg (25.0-34.0) 05/04/22 MCHC 31.9 g/dL (32.0-36.0) L 05/04/22 RDW Standard Deviation 50.9 fL (36.4-46.3) H 05/04/22 RDW Coefficient of Variation 16.4 % (11.5-14.5) H 05/04/22 Plt Count 215 K/uL (130-400) 05/04/22 MPV 11.5 fL (9.4-12.3) 05/04/22 Neutrophils (%) (Auto) 65.4 % 05/04/22 Lymphocytes (%) (Auto) 24.4 % 05/04/22 Monocytes # (Auto) 0.64 K/uL (0.24-0.82) 05/04/22 Eosinophils # (Auto) 0.25 K/uL (0-0.50) 05/04/22 Immature Granulocyte % (Auto) 0.3 % 05/04/22 Neutrophils # (Auto) 6.34 K/uL (1.4-6.5) 05/04/22 Lymphocytes # (Auto) 2.36 K/uL (1.2-3.4) 05/04/22 Monocytes # (Auto) 0.64 K/uL (0.24-0.82) 05/04/22 Eosinophils # (Auto) 0.25 K/uL (0-0.50) 05/04/22 Basophils # (Auto) 0.07 K/uL (0-0.2) 05/04/22 Immature Granulocyte # (Auto) 0.03 K/uL (0.00-0.02) H 05/04 Na 137 mmol/L (136-145) 05/04/22 K 3.9 mmol/L (3.5-5.1) 05/04/22 Cl 108 mmol/L (98-107) H 05/04/22 CO2 20 mmol/L (21-32) L 05/04/22 Anion Gap 9 (3-11) 05/04/22 BUN 13 mg/dl (6-23) 05/04/22 Creatinine 1.22 mg/dl (0.6-1.2) H 05/04/22 Estimated GFR ( Amer) 54.6 ml/min 05/04/22 Estimated GFR (Non-Af Amer) 47.1 ml/min 05/04/22 Ca 8.3 mg/dl (8.5-10.1) L 05/04/22 Phosphorus Level 3.2 mg/dl (2.5-4.9) 05/04/22 Total Bilirubin 0.5 mg/dl (0.2-1.0) 05/04/22 AST 36 U/L (13-39) 05/04/22 ALT 14 U/L (7-52) 05/04/22 Alkaline Phosphatase 170 U/L (34-104) H 05/04/22 TP 6.3 gm/dl (6.0-8.3) 05/04/22 Albumin 2.9 gm/dl (3.4-5.0) L 05/04/22 Globulin 3.4 gm/dl (2.5-4.0) 05/04/22 Albumin/Globulin Ratio 0.9 (0.9-2) 05/04/22 Mg 1.7 mg/dl (1.7-2.4) 05/04/22 06:30 Calcium Level 8.3 mg/dl (8.5-10.1) L 05/04/22 06:30 I & O Totals 24 Hours 04/28/22 04/29/22 04/30/22 06:59 06:59 06:59 Intake Total 600 / 600 2545.333 / 2545.333 282.667 / 282.667 Output Total 300 / 300 450 / 450 Balance 300 / 300 2095.333 / 2095.333 282.667 / 282.667 Cumulative 04/27/22 19:27 thru 04/29/22 14:44 Intake Total 3428.000 Output Total 750 Balance 2678.000 RT Ventilator Mngmt (Last Documented) Ventilator Ordered Settings Respiratory Rate 14 04/29/22 15:52 Ventilator - PT Measurements Respiratory Rate 14 PG Care Time/CCT Total # of Minutes Spent Total Time Spent with Patient: Total time spent is greater than 50% in coordination of care (as documented) at patient's floor/unit and/or counseling patient: Coding Level of Care Code 48154 Subseq Hosp Care Lvl 3 Diagnoses Cryptococcal meningitis B45.1 Pulmonary emboli I26.99 Acute cor pulmonale presence: without acute cor pulmonale Chronicity: acute Pulmonary embolism type: unspecified DVT (deep venous thrombosis) I82.452 Affected thrombotic vein of extremity: peroneal Chronicity: acute DVT location: lower extremity Laterality: left Hypokalemia E87.6 Hypomagnesemia E83.42 Diabetes E11.9 Cirrhosis of liver K74.60 Depression F32.9 Depression Type: unspecified Hypertension I10 Hypertension type: essential hypertension Acute GI bleeding K92.2 DVT prophylaxis Z29.9 Atrial fibrillation I48.91 Acute metabolic encephalopathy G93.41 Time Spent (min) 30 (1) DVT (deep venous thrombosis) Affected thrombotic vein of extremity: peroneal Chronicity: acute DVT location: lower extremity Laterality: left Qualified Code(s): I82.452 - Acute embolism and thrombosis of left peroneal vein (2) Depression Depression Type: unspecified Qualified Code(s): F32.9 - Major depressive disorder, single episode, unspecified (3) Pulmonary emboli Acute cor pulmonale presence: without acute cor pulmonale Chronicity: acute Pulmonary embolism type: unspecified Qualified Code(s): I26.99 - Other pulmonary embolism without acute cor pulmonale (4) Hypertension Hypertension type: essential hypertension Qualified Code(s): I10 - Essential (primary) hypertension
--- NOTE | 2022-04-29 18:44 | Electrocardiogram Report ---
Test Reason : Blood Pressure : / mmHG Vent. Rate : 095 BPM Atrial Rate : 095 BPM P-R Int : 132 ms QRS Dur : 108 ms QT Int : 386 ms P-R-T Axes : 043 -46 066 degrees QTc Int : 485 ms Normal sinus rhythm Left anterior fascicular block Nonspecific ST and T wave abnormality Prolonged QT Abnormal ECG When compared with ECG of 27-APR-2022 19:50, Left anterior fascicular block is now Present Confirmed by Brendon Nina ([id number]) on 04/29/2022 6:44:03 PM Referred By: REFERRED SELF Confirmed By:Alvino Nina
--- NOTE | 2022-04-29 18:46 | Electrocardiogram Report ---
Test Reason : Blood Pressure : / mmHG Vent. Rate : 123 BPM Atrial Rate : 100 BPM P-R Int : 138 ms QRS Dur : 106 ms QT Int : 382 ms P-R-T Axes : 069 -51 077 degrees QTc Int : 546 ms Sinus rhythm with frequent , and consecutive Premature ventricular complexes (NSVT) Left anterior fascicular block Possible Anterior infarct , age undetermined Abnormal ECG When compared with ECG of 28-APR-2022 22:41, (unconfirmed) Premature ventricular complexes are now Present Confirmed by Brendon Nina ([id number]) on 04/29/2022 6:45:45 PM Referred By: REFERRED SELF Confirmed By:Alvino Nina
[2022-04-30] MEDS: INSULIN ASPART PER UNIT SC SCH ×5 (00:21→21:12)
[2022-04-30] MEDS: METOPROLOL TARTRATE 1 MG/ML VIAL IV SCH (00:21)
[2022-04-30] MEDS: FLUCONAZOLE 200 MG/100 ML BAG IV SCH (00:21)
[2022-04-30] MEDS: PANTOprazole 40 MG in DEXTROSE 5% 100 ML IV SCH ×4 (00:22→10:39)
[2022-04-30 00:33] LABS: Partial Thromboplastin Ratio 1.5; Partial Thromboplastin Time 41.6 Seconds (21.0-31.0)
[2022-04-30 05:48] LABS: Hemoglobin 8.5 g/dl (12.0-16.0); Mean Corpuscular Hemoglobin 27.6 pg (25.0-34.0); Mean Corpuscular Hgb Conc 32.7 g/dL (32.0-36.0); Mean Corpuscular Volume 84.4 fL (80.0-100.0); Mean Platelet Volume 11.5 fL (9.4-12.3); Platelet Count 148 K/uL (130-400); RDW Coefficient of Variation 16.6 % (11.5-14.5); RDW Standard Deviation 50.8 fL (36.4-46.3); Red Blood Count 3.08 M/uL (3.93-5.22); White Blood Count 6.69 K/ul (4.8-10.8)
[2022-04-30 05:59] LABS: Partial Thromboplastin Time 27.1 Seconds (21.0-31.0)
[2022-04-30 06:31] LABS: BUN Creatinine Ratio 15.9 (10-20); Calcium 7.6 mg/dl (8.5-10.1); Creatinine Clr Calc Pharmacy 53.2 ml/min; Est GFR (Non-African American) 55.2 ml/min; Magnesium 1.4 mg/dl (1.7-2.4)
[2022-04-30] MEDS ORDERED: POTASSIUM CHLORIDE 20 MEQ/15 ML UDC PO STA ×2 (07:43→23:44)
[2022-04-30] MEDS ORDERED: FLUCONAZOLE 100 MG TAB PO SCH (09:00)
[2022-04-30] MEDS: METOPROLOL SUCC 25MG EXT REL TAB PO SCH (09:07)
[2022-04-30] MEDS: MAGNESIUM SULFATE / D5W 1 GM/100 ML BAG IV SCH ×3 (09:07→12:45)
[2022-04-30] MEDS: MULTIVITAMIN TAB PO SCH (09:07)
--- NOTE | 2022-04-30 09:48 | Communication Note ---
Date of Service: April 30, 2022 Patient is a 62 yo female with anemia and hematemesis who underwent EGD on 04/29/22. Patient was noted to have erosive gastritis. She had been on a Protonix gtt prior to her EGD and bleeding had resolved. At this time, I would continue Protonix 40 mg BID x 8 weeks, then reduce to once daily. She can follow-up with GI as an outpatient unless she develops further overt GI bleeding.
--- NOTE | 2022-04-30 10:27 | Consultation ---
Date of Consultation April 30, 2022 Assessment & Plan (1) Deep venous thrombosis (DVT) of left peroneal vein: This patient demonstrated an isolated clot in her left peroneal vein on April 19. A repeat study done on April 28 showed no change in the clot of the left peroneal vein. Being that she has been stable has no signs of active bleeding there is no contraindication for anticoagulation at this point. If she should actively start bleeding discontinuation of the anticoagulation can be done being that the clot is an isolated clot of the left peroneal and that no propagation of the clot has occurred over 9-day time span. Prior to stopping all anticoagulation due to bleeding I would repeat the ultrasound of the left leg to see if there is been propagation at that time. If there has been more propagation of the clot then the filter would be needed. Thank you very much for letting us participate in the care of this patient. Please call with any questions or further reevaluations are needed. History of Present Illness Reason for Consultation: Peroneal vein DVT. Attending Physician: Kerry Leal MD History of Present Illness This is a 62-year-old female who with atrial fibrillation. She recently was followed by [facility] and [place] neurology for cryptococcal meningitis. She has a history of hypertension diabetes mitral regurg. She presented with confusion and hematemesis. She was on Xarelto which was started recently for her atrial fibrillation. She was recently discharged from [facility] on 6 2:25 weeks of treatment with amphotericin B. She developed shortness of breath. An outpatient CT scan which showed bilateral pulmonary emboli. She was hospitalized on 04/19 and discharged on 04/22. While in the hospital she was treated with heparin and discharged on Xarelto. On the day of admission she presented with vomiting bloody stomach contents. She did have dark tarry stools 2 weeks prior to this admission. She did note some blood in her urine the week before but this did clear out. She was hypotensive at the time of admission to the emergency room. Hemoglobin was 9.2 on admission. She did have an NG tube placed which only significant with a scant amount of blood. She has not required any blood transfusion during this hospital stay. Her hemoglobins are stable. Upper endoscopy showed erosive changes. Lower extremity venous study on 04/19 showed a peroneal clot in the left peroneal vein. The repeat study done on 04/28 redemonstrated the peroneal clot in the left peroneal vein. Allergies Allergy/AdvReac Type Severity Reaction Status Date / Time Penicillins Allergy Intermediate Hives Verified 04/27/22 21:30 atorvastatin Allergy Unknown CAN'T Verified 04/27/22 21:30 REMEMBER gemfibrozil [From Lopid] Allergy Unknown CAN'T Verified 04/27/22 21:30 REMEMBER acetaminophen [From Tylenol] AdvReac Severe CAN NOT Verified 04/27/22 21:30 TAKE D/T LIVER ISSUES ibuprofen AdvReac Severe liver Verified 04/27/22 21:30 issues rosuvastatin AdvReac Intermediate Muscle Pain Verified 04/27/22 21:30 Home Medications Medication Instructions Recorded Confirmed Type aspirin 81 mg tablet,delayed 81 mg PO HS 06/05/19 04/27/22 History release multivitamin 1 tab PO QAM 09/07/19 04/27/22 History Contour Next Test Strips (blood #300 ea 12/29/20 04/26/22 Rx sugar diagnostic) blood-glucose sensor (Dexcom G6 #3 ea 01/22/21 04/26/22 History Sensor device) blood-glucose transmitter (Dexcom #1 ea 01/22/21 04/26/22 History G6 Transmitter device) mirtazapine 30 mg tablet 30 mg PO HS #90 tabs 05/06/21 04/27/22 Rx venlafaxine 150 mg 300 mg PO HS #180 caps 07/01/21 04/27/22 Rx capsule,extended release 24 hr (Effexor XR) acetone (urine) test (Ketostix #50 ea 10/14/21 04/26/22 Rx strips) pen needle, diabetic 32 gauge x #120 ea 11/06/21 04/26/22 Rx 5/32" (BD Ultra-Fine Jody Pen Needle) insulin aspart U-100 100 unit/mL 0 unit subcut TIDM 03/01/22 04/27/22 History (3 mL) subcutaneous pen insulin glargine U-300 conc 300 68 unit subcut QPM 03/01/22 04/27/22 History unit/mL (1.5 mL) subcutaneous pen (Touqueenie SoloStar U-300 Insulin) metoprolol succinate 25 mg 25 mg PO QAM #90 tabs 04/16/22 04/27/22 Rx tablet,extended release 24 hr fluconazole 100 mg tablet 200 mg PO QAM #30 tabs 04/22/22 04/27/22 Rx rivaroxaban 15 mg tablet (Xarelto) 15 mg PO BIDM #40 tabs 04/22/22 04/27/22 Rx Patient History Medical History Anxiety Cirrhosis of liver FOLLOWS W/ [facility] Stable currently Depression Diabetes mellitus, type 2 IDDM Glucose fluctuates - since Covid in December 2020 On insulin pump Follows with endocrinology Dupuytren's contracture of hand Bilateral hands Dyslipidemia History of COVID-12 January 2021 > [facility], not hospitalized, fever, ear pain- did give infusion in ER No current issues Hypertension IBS (irritable bowel syndrome) Stable Insomnia Kidney stones FOLLOWS WITH DR FUCHS No current issues - monitoring currently Surgical History History of cystoscopy WITH STENTS AND STONE BASKETING History of lithotripsy History of tonsillectomy and adenoidectomy History of total hip arthroplasty LEFT Hx laparoscopic cholecystectomy Hx of colonoscopy Hx of surgical amputation of finger left pinky Hx of total hysterectomy GERALD WITH BSO Hx of tubal ligation Hx of wisdom tooth extraction Family History Father , age 75 Family history of diabetes mellitus Coronary heart disease Brother Family history of diabetes mellitus Mother , age 67 Family history of diabetes mellitus Heart disease Hypertension Grandfather (Paternal) Family history of diabetes mellitus Grandmother (Paternal) Family history of diabetes mellitus Denies family history of Ovarian cancer Breast cancer Colorectal cancer Social History Smoking Status: Never smoker Cigarettes Per Day: 06/2018; Number of Years Since Quit: 4; Second Hand Exposure: Yes; Hx Alcohol Use: No Hx Substance Use: No Preferred Language: Occitan Communication Ability: Effective Visual Impairment: No Limitations 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 Required: No Beliefs That Will Affect Care: None marital status: Current Living Situation: Alone current occupational status: employed and disabled 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- insurance helps How many Children do You have: 2 Feels Safe at Home: Yes Childhood Exposure to Second-Hand Smoke: No caffeine: Yes Dental Care, Regularly: No Physical Activity Frequency: Does not Exercise Seatbelt Use: always Sunscreen Use: Yes Assistive Devices: None Review of Systems Review of Systems: All systems reviewed & are unremarkable except as noted in HPI & below Physical Exam Constitutional: WD/WN, vitals as above Respiratory: normal respiratory effort; no respiratory distress Auscultation: lungs clear to auscultation bilaterally Cardiovascular: Rate/Rhythm: regular rate and regular rhythm Vessels: radial pulses present Extremities: normal capillary refill Gastrointestinal (Abdomen): Inspection/Auscultation: abdomen normal to inspection; abdomen not distended Percussion/Palpation: abdomen soft; abdomen nontender Musculoskeletal: no cyanosis or clubbing, extremities motor strength 5/5 Neurologic: CN's II-XI intact bilaterally and moves all extremities Psychiatric: Orientation: alert and oriented x 3 Results & Data ([facility]) Vital Signs (Past 12 Hours) Vital Signs Temp Pulse Pulse Resp BP Pulse Ox O2 Del Method 04/30/22 07:36 37.2 C 76 18 137/76 95 Room Air 04/30/22 03:12 37.3 C 82 18 136/73 92 Room Air 04/30/22 00:21 91 H 04/29/22 23:16 37.5 C 87 18 135/74 93 Room Air
[2022-04-30] MEDS ORDERED: PHARMACY GLYCEMIC MGMT CONSULT PRN (13:19)
[2022-04-30] MEDS ORDERED: LANTUS PER UNIT CHARGE SQ STA (13:26)
[2022-04-30] MEDS ORDERED: INSULIN ASPART PER UNIT SC ONE (13:45)
--- NOTE | 2022-04-30 13:53 | Pharmacy Report ---
Pharmacy Glycemic Short Note 2 - Date of Service April 30, 2022 - Glycemic Short BSG Results (Last 24 hours): 04/29/22 04/29/22 04/30/22 16:17 20:21 00:02 Glucose POC Glucose 228 H 263 H 202 H 04/30/22 04/30/22 04/30/22 05:26 06:01 07:08 Glucose 204 H POC Glucose 221 H 218 H 04/30/22 04/30/22 11:57 11:58 Glucose POC Glucose 311 H* 296 H OUTPATIENT ANTIDIABETIC REGIMEN: * Toujeo 68 units + Novolog * A1c 7.9% on 04/20/22 ASSESSMENT: * Patient admitted 04/27, BSGs elevated on admission and have continued in the low 200s, today 311 mg/dL at lunch * Patient on several dextrose containing infusions, NPO --> clears but not eating lunch pending neuro eval today, however patient was sipping on orange juice over extended time this morning (approximately 30 gm, that was u ncovered) * Pantoprazole infusion d/c, heparin on hold a current * Recent admissions BSGs well controlled with lantus 20 units and Novolog parameters 25/5. Will give 20 units of lantus now- patient currently NPO but has missed several days of basal insulin so suspect more basal deficiency at this point. * Will give one time looser correction now after speaking with RN and recent dextrose containing drip stopping and then go to previously used parameters PLAN FOR INPATIENT GLYCEMIC CONTROL: * Hold outpatient oral diabetes medications * Basal insulin * Lantus 20 units x 1 * Bolus insulin * NovoLog per scale ACHS or Q6hrs while NPO * Goal Range: Low 110 mg/dL - High 140 mg/dL * Correction Factor: 25 mg/dL/unit * Nutritional / Prandial insulin per carb ratio of 1 unit per 5 grams CHO consumed
--- NOTE | 2022-04-30 14:31 | Hospitalist Progress Note ---
Date of Service April 30, 2022 Assessment & Plan (1) Acute GI bleeding: Plan: EGD with shallow ulcers in the stomach with gastritis. Biopsies taken and pathology results are pending. 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 of fluconazole daily Repeat lumbar puncture appropriate and in order; discussed with Dr. Powers NSVT overnight he stated wait till next week; initiated heparin; will need to be held Tuesday night (3) Pulmonary emboli: Plan: Initiated on heparin; keep still lumbar puncture; vascular surgery input noted and appreciatedcannot disagree at present cautiously watch without IVC failure is appropriate; best to use DVT protocol (4) DVT (deep venous thrombosis): Plan: Initiated on heparin as above, vascular surgery input noted (5) Hypokalemia: Plan: Correct aggressively (6) Hypomagnesemia: Plan: Correct aggressively (7) Diabetes: Plan: Nursing reported high sugars, pharmacy glycemic: (8) Cirrhosis of liver: Plan: Nonalcoholic cirrhosis GI consulted and following (9) Depression: Plan: Medications include mirtazapine 30 mg p.o. at bedtime as well as venlafaxine 300 mg p.o. at bedtime Continue home medications while inpatient (10) Hypertension: Plan: Resumed metoprolol succinate 25 mg p.o. daily (11) Atrial fibrillation: Plan: Continue metoprolol succinate Follow on telemetry Anticoagulated with Xarelto at home. Heparin resumed. (12) NSVT (nonsustained ventricular tachycardia): Plan: In current context, aggressively correct electrolytes, resume metoprolol succinate and observe; recent echo preserved LV function Admission and Anticipated Discharge Date Admission Date: April 27, 2022 Subjective Follow-up of presentation with GI bleed, mental status changesno more bleeding; no symptoms; overnight NSVT Physical Exam Physical Exam: Constitutional and general: No acute distress, looks biologic age Head and face: No puffiness, atraumatic Eyes: No scleral icterus, extraocular movements normal Neck: Supple, no JVD Musculoskeletal: No acute joint swelling, no bony abnormalities Skin/dermatologic/integument: No rash, no purpura Hematologic and lymphatic: pallor +, no petechia Gastrointestinal/abdomen: Nondistended, soft, nonacute Neurologic: Cranial nerves intact, nonfocal Psychiatry: Awake, alert, pleasant, communicative Cardiovascular: Heart rhythm regular, no rub, no murmur, no gallop Respiratory: Chest movements equal, no use of accessory muscles, no adventitious sounds Extremities: No edema, no cyanosis Results & Data Results & Data ([facility]) Vital Signs (Past 12 Hours) Vital Signs Temp Pulse Resp BP Pulse Ox O2 Del Method 04/30/22 07:36 37.2 C 76 18 137/76 95 Room Air 04/30/22 03:12 37.3 C 82 18 136/73 92 Room Air Laboratory Results Laboratory Results - last 24 hr 04/29/22 04/29/22 04/29/22 16:17 20:21 23:57 WBC RBC Hgb Hct MCV MCH MCHC RDW Std Deviation RDW Coeff of Jun Plt Count MPV APTT 41.6 H PTT Ratio 1.5 Sodium Potassium Chloride Carbon Dioxide Anion Gap BUN Creatinine Est Cr Clr Drug Dosing Est GFR ( Amer) Est GFR (Non-Af Amer) BUN/Creatinine Ratio Glucose POC Glucose 228 H 263 H Calcium Phosphorus Magnesium Ammonia Vitamin B12 [facility] 04/30/22 04/30/22 04/30/22 00:02 05:26 05:26 WBC 6.69 RBC 3.08 L Hgb 8.5 L Hct 26.0 L MCV 84.4 MCH 27.6 MCHC 32.7 RDW Std Deviation 50.8 H RDW Coeff of Jun 16.6 H Plt Count 148 MPV 11.5 APTT 27.1 PTT Ratio 1.0 Sodium Potassium Chloride Carbon Dioxide Anion Gap BUN Creatinine Est Cr Clr Drug Dosing Est GFR ( Amer) Est GFR (Non-Af Amer) BUN/Creatinine Ratio Glucose POC Glucose 202 H Calcium Phosphorus Magnesium Ammonia Vitamin B12 [facility] 04/30/22 04/30/22 04/30/22 05:26 05:26 06:01 WBC RBC Hgb Hct MCV MCH MCHC RDW Std Deviation RDW Coeff of Jun Plt Count MPV APTT PTT Ratio Sodium 139 Potassium 3.0 L D Chloride 107 Carbon Dioxide 23 Anion Gap 9 BUN 17 Creatinine 1.07 Est Cr Clr Drug Dosing 53.2 Est GFR ( Amer) 64.0 Est GFR (Non-Af Amer) 55.2 BUN/Creatinine Ratio 15.9 Glucose 204 H POC Glucose 221 H Calcium 7.6 L Phosphorus 2.7 Magnesium 1.4 L Ammonia Vitamin B12 TSH 04/30/22 04/30/22 04/30/22 07:08 08:44 08:44 WBC RBC Hgb Hct MCV MCH MCHC RDW Std Deviation RDW Coeff of Jun Plt Count MPV APTT PTT Ratio Sodium Potassium Chloride Carbon Dioxide Anion Gap BUN Creatinine Est Cr Clr Drug Dosing Est GFR ( Amer) Est GFR (Non-Af Amer) BUN/Creatinine Ratio Glucose POC Glucose 218 H Calcium Phosphorus Magnesium Ammonia 59.0 Vitamin B12 275 TSH 04/30/22 04/30/22 04/30/22 08:44 11:57 11:58 WBC RBC Hgb Hct MCV MCH MCHC RDW Std Deviation RDW Coeff of Jun Plt Count MPV APTT PTT Ratio Sodium Potassium Chloride Carbon Dioxide Anion Gap BUN Creatinine Est Cr Clr Drug Dosing Est GFR ( Amer) Est GFR (Non-Af Amer) BUN/Creatinine Ratio Glucose POC Glucose 311 H* 296 H Calcium Phosphorus Magnesium Ammonia Vitamin B12 TSH 1.976 04/30/22 13:46 WBC RBC Hgb Hct MCV MCH MCHC RDW Std Deviation RDW Coeff of Jun Plt Count MPV APTT PTT Ratio Sodium Potassium Chloride Carbon Dioxide Anion Gap BUN Creatinine Est Cr Clr Drug Dosing Est GFR ( Amer) Est GFR (Non-Af Amer) BUN/Creatinine Ratio Glucose POC Glucose 333 H* Calcium Phosphorus Magnesium Ammonia Vitamin B12 TSH PG Care Time/CCT Total # of Minutes Spent Total Time Spent with Patient: Total time spent is greater than 50% in coordination of care (as documented) at patient's floor/unit and/or counseling patient: Coding Level of Care Code 15718 Subseq Hosp Care Lvl 3 Diagnoses Acute GI bleeding K92.2 Cryptococcal meningitis B45.1 Pulmonary emboli I26.99 Acute cor pulmonale presence: without acute cor pulmonale Chronicity: acute Pulmonary embolism type: unspecified DVT (deep venous thrombosis) I82.452 Affected thrombotic vein of extremity: peroneal Chronicity: acute DVT location: lower extremity Laterality: left Hypokalemia E87.6 Hypomagnesemia E83.42 Diabetes E11.9 Cirrhosis of liver K74.60 Depression F32.9 Depression Type: unspecified Hypertension I10 Hypertension type: essential hypertension Atrial fibrillation I48.91 NSVT (nonsustained ventricular tachycardia) I47.2 (1) Pulmonary emboli Acute cor pulmonale presence: without acute cor pulmonale Chronicity: acute Pulmonary embolism type: unspecified Qualified Code(s): I26.99 - Other pulmonary embolism without acute cor pulmonale (2) DVT (deep venous thrombosis) Affected thrombotic vein of extremity: peroneal Chronicity: acute DVT location: lower extremity Laterality: left Qualified Code(s): I82.452 - Acute embolism and thrombosis of left peroneal vein (3) Depression Depression Type: unspecified Qualified Code(s): F32.9 - Major depressive disorder, single episode, unspecified (4) Hypertension Hypertension type: essential hypertension Qualified Code(s): I10 - Essential (primary) hypertension
[2022-04-30] MEDS ORDERED: Heparin IV Adult Wt-Based Standard *NO* Bolus Protocol IV SCH (14:37)
[2022-04-30] MEDS: HEPARIN SODIUM/DEXTROSE 25,000 UNITS/500 ML BAG IV SCH (15:43)
[2022-04-30 16:49] LABS: Hematocrit (blood only) 27.9 % (34.1-44.9); Hemoglobin 9.2 g/dl (12.0-16.0)
[2022-04-30] MEDS: PANTOprazole 40 MG in SYRINGE 0 ML IV SCH (21:04)
[2022-04-30] MEDS: VENLAFAXINE HCL XR 150 MG CAPXR PO SCH (21:04)
[2022-04-30 22:12] LABS: Partial Thromboplastin Time 55.2 Seconds (21.0-31.0)
[2022-04-30] MEDS: MIRTAZAPINE TAB 15 MG TAB PO SCH (22:15)
[2022-04-30 23:07] LABS: Hematocrit (blood only) 26.6 % (34.1-44.9); Hemoglobin 8.4 g/dl (12.0-16.0)
[2022-04-30 23:26] LABS: Calcium 7.8 mg/dl (8.5-10.1); Creatinine Clr Calc Pharmacy 49.5 ml/min; Est GFR (African American) 58.6 ml/min; Est GFR (Non-African American) 50.6 ml/min
[2022-05-01] MEDS: FLUCONAZOLE 200 MG/100 ML BAG IV SCH (00:49)
[2022-05-01 05:54] LABS: Basophils # (auto) 0.04 K/uL (0-0.2); Basophils % (auto) 0.6 %; Eosinophils # (auto) 0.29 K/uL (0-0.50); Hematocrit (blood only) 24.9 % (34.1-44.9); Hemoglobin 8.1 g/dl (12.0-16.0); Immature Granulocytes # (auto) 0.01 K/uL (0.00-0.02); Immature Granulocytes % (auto) 0.1 %; Lymphocytes # (auto) 2.46 K/uL (1.2-3.4); Lymphocytes % (auto) 34.1 %; Mean Corpuscular Hemoglobin 27.4 pg (25.0-34.0); Mean Corpuscular Hgb Conc 32.5 g/dL (32.0-36.0); Mean Corpuscular Volume 84.1 fL (80.0-100.0); Mean Platelet Volume 11.2 fL (9.4-12.3); Monocytes # (auto) 0.54 K/uL (0.24-0.82); Monocytes % (auto) 7.5 %; Neutrophils # (auto) 3.87 K/uL (1.4-6.5); Neutrophils % (auto) 53.7 %; Platelet Count 156 K/uL (130-400); RDW Coefficient of Variation 16.3 % (11.5-14.5); RDW Standard Deviation 49.9 fL (36.4-46.3); Red Blood Count 2.96 M/uL (3.93-5.22); White Blood Count 7.21 K/ul (4.8-10.8)
[2022-05-01 06:22] LABS: Partial Thromboplastin Ratio 3.1
[2022-05-01 06:34] LABS: Appearance Urine Clear (Clear); Bacteria Urine Automated Negative (Negative); Bilirubin Urine Negative (Negative); Blood Urine Trace (Negative); Color Urine Yellow; Epithelial Cell Urine Auto 20-30 /lpf (0-5); Glucose Urine UA Trace (Negative); Ketones Urine Negative (Negative); Leukocyte Esterase Urine Trace (Negative); Nitrite Urine Negative (Negative); Protein Urine Negative (Negative); RBC Urine Automated 0-4 /hpf (0-4); Specific Gravity Urine 1.012 (1.000-1.030); Urobilinogen Urine Negative (Negative)
[2022-05-01 06:35] LABS: Albumin Globulin Ratio 0.9 (0.9-2); Albumin Level 2.7 gm/dl (3.4-5.0); Bilirubin,Total 0.6 mg/dl (0.2-1.0); Calcium 7.7 mg/dl (8.5-10.1); Creatinine Clr Calc Pharmacy 52.4 ml/min; Est GFR (African American) 63.3 ml/min; Est GFR (Non-African American) 54.6 ml/min; Globulin 2.9 gm/dl (2.5-4.0); Magnesium 1.6 mg/dl (1.7-2.4); Phosphorus 2.5 mg/dl (2.5-4.9); Potassium 3.3 mmol/L (3.5-5.1); Total Protein 5.6 gm/dl (6.0-8.3)
[2022-05-01 06:37] LABS: Partial Thromboplastin Time 84.3 Seconds (21.0-31.0)
[2022-05-01] MEDS ORDERED: POTASSIUM CHLORIDE 20 MEQ/15 ML UDC PO STA (07:00)
[2022-05-01] MEDS: PANTOprazole 40 MG in SYRINGE 0 ML IV SCH ×2 (08:37→21:26)
[2022-05-01] MEDS: METOPROLOL SUCC 25MG EXT REL TAB PO SCH (08:37)
[2022-05-01] MEDS: MULTIVITAMIN TAB PO SCH (08:37)
[2022-05-01] MEDS: INSULIN ASPART PER UNIT SC SCH ×4 (08:42→20:59)
[2022-05-01] MEDS: HEPARIN SODIUM/DEXTROSE 25,000 UNITS/500 ML BAG IV SCH ×2 (08:42→17:46)
[2022-05-01] MEDS ORDERED: POTASSIUM CHLORIDE CRTAB 20 MEQ TABCR PO STA (09:08)
[2022-05-01] MEDS: MAGNESIUM SULFATE / D5W 1 GM/100 ML BAG IV SCH ×3 (09:13→13:47)
[2022-05-01] MEDS ORDERED: Nursing to Pharmacy Communication SCH (09:15)
[2022-05-01] MEDS ORDERED: LANTUS PER UNIT CHARGE SC ONE (12:00)
[2022-05-01 13:01] LABS: Partial Thromboplastin Ratio 3.1
--- NOTE | 2022-05-01 16:03 | Hospitalist Progress Note ---
Date of Service May 01, 2022 Assessment & Plan (1) Acute GI bleeding: Plan: EGD with shallow ulcers in the stomach with gastritis. Biopsies taken and pathology results are pending. 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 of fluconazole daily Repeat lumbar puncture appropriate and in order; discussed with Dr. Powers NSVT overnight he stated wait till next week; initiated heparin; will need to be held Tuesday night (3) Pulmonary emboli: Plan: Initiated on heparin, keep same pending lumbar puncture; vascular surgery input noted and appreciatedcannot disagree at present cautiously watch without IVC filter is appropriate (4) DVT (deep venous thrombosis): Plan: Initiated on heparin as above, vascular surgery input noted (5) Hypokalemia: Plan: Correct aggressively (6) Hypomagnesemia: Plan: Correct aggressively (7) Diabetes: Plan: Sugars still not optimalpharmacy glycemic management consulted (8) Cirrhosis of liver: Plan: Nonalcoholic cirrhosis GI consulted and following (9) Depression: Plan: Medications include mirtazapine 30 mg p.o. at bedtime as well as venlafaxine 300 mg p.o. at bedtime Continue home medications while inpatient (10) Hypertension: Plan: Resumed metoprolol succinate 25 mg p.o. daily (11) Atrial fibrillation: Plan: Continue metoprolol succinate Follow on telemetry Anticoagulated with Xarelto at home. Heparin resumed. (12) NSVT (nonsustained ventricular tachycardia): Plan: Episode overnight yesterday; in current context, aggressively correct electrolytes, continue metoprolol succinate and observe; recent echo preserved LV function Admission and Anticipated Discharge Date Admission Date: April 27, 2022 Subjective Follow-up of presentation with GI bleed, mental status changesno more bleeding; no symptoms Physical Exam Physical Exam: Constitutional and general: No acute distress, looks biologic age Head and face: No puffiness, atraumatic Eyes: No scleral icterus, extraocular movements normal Neck: Supple, no JVD Musculoskeletal: No acute joint swelling, no bony abnormalities Skin/dermatologic/integument: No rash, no purpura Hematologic and lymphatic: pallor +, no petechia Gastrointestinal/abdomen: Nondistended, soft, nonacute Neurologic: Cranial nerves intact, nonfocal Psychiatry: Awake, alert, pleasant, communicative Cardiovascular: Heart rhythm regular, no rub, no murmur, no gallop Respiratory: Chest movements equal, no use of accessory muscles, no adventitious sounds Extremities: No edema, no cyanosis Results & Data Results & Data ([facility]) Vital Signs (Past 12 Hours) Vital Signs Temp Pulse Pulse Resp BP Pulse Ox O2 Del Method 05/01/22 12:37 36.9 C 72 16 135/81 96 Room Air 05/01/22 08:36 78 135/69 05/01/22 08:00 37.0 C 80 16 123/69 94 Room Air 05/01/22 07:00 79 Laboratory Results Laboratory Results - last 24 hr 04/30/22 04/30/22 04/30/22 16:15 16:19 20:32 WBC RBC Hgb 9.2 L Hct 27.9 L MCV MCH MCHC RDW Std Deviation RDW Coeff of Jun Plt Count MPV Immature Gran % (Auto) Neut % (Auto) Lymph % (Auto) [place] % (Auto) Eos % (Auto) Baso % (Auto) Neut # (Auto) Lymph # (Auto) [place] # (Auto) Eos # (Auto) Baso # (Auto) Immature Gran # (Auto) APTT PTT Ratio Sodium Potassium Chloride Carbon Dioxide Anion Gap BUN Creatinine Est Cr Clr Drug Dosing Est GFR ( Amer) Est GFR (Non-Af Amer) BUN/Creatinine Ratio Glucose POC Glucose 291 H 242 H Fasting Glucose Calcium Phosphorus Magnesium Total Bilirubin AST ALT Alkaline Phosphatase Total Protein Albumin Globulin Albumin/Globulin Ratio Urine Color Urine Appearance Urine pH Ur Specific George Urine Protein Urine Glucose (UA) Urine Ketones Urine Blood Urine Nitrite Urine Bilirubin Urine Urobilinogen Ur Leukocyte Esterase Urine WBC (Auto) Urine RBC (Auto) U Hyaline Cast (Auto) U Epithel Cells (Auto) Urine Bacteria (Auto) Stool H. pylori Ag 04/30/22 04/30/22 04/30/22 21:25 22:44 22:44 WBC RBC Hgb 8.4 L Hct 26.6 L MCV MCH MCHC RDW Std Deviation RDW Coeff of Jun Plt Count MPV Immature Gran % (Auto) Neut % (Auto) Lymph % (Auto) [place] % (Auto) Eos % (Auto) Baso % (Auto) Neut # (Auto) Lymph # (Auto) [place] # (Auto) Eos # (Auto) Baso # (Auto) Immature Gran # (Auto) APTT 55.2 H* PTT Ratio 2.0 Sodium 135 L Potassium 3.0 L Chloride 104 Carbon Dioxide 23 Anion Gap 8 BUN 15 Creatinine 1.15 Est Cr Clr Drug Dosing 49.5 Est GFR ( Amer) 58.6 Est GFR (Non-Af Amer) 50.6 BUN/Creatinine Ratio 13.0 Glucose 225 H POC Glucose Fasting Glucose Calcium 7.8 L Phosphorus Magnesium Total Bilirubin AST ALT Alkaline Phosphatase Total Protein Albumin Globulin Albumin/Globulin Ratio Urine Color Urine Appearance Urine pH Ur Specific George Urine Protein Urine Glucose (UA) Urine Ketones Urine Blood Urine Nitrite Urine Bilirubin Urine Urobilinogen Ur Leukocyte Esterase Urine WBC (Auto) Urine RBC (Auto) U Hyaline Cast (Auto) U Epithel Cells (Auto) Urine Bacteria (Auto) Stool H. pylori Ag 04/30/22 05/01/22 05/01/22 22:44 05:42 05:42 WBC 7.21 RBC 2.96 L Hgb 8.1 L Hct 24.9 L MCV 84.1 MCH 27.4 MCHC 32.5 RDW Std Deviation 49.9 H RDW Coeff of Jun 16.3 H Plt Count 156 MPV 11.2 Immature Gran % (Auto) 0.1 Neut % (Auto) 53.7 Lymph % (Auto) 34.1 [place] % (Auto) 7.5 Eos % (Auto) 4.0 Baso % (Auto) 0.6 Neut # (Auto) 3.87 Lymph # (Auto) 2.46 [place] # (Auto) 0.54 Eos # (Auto) 0.29 Baso # (Auto) 0.04 Immature Gran # (Auto) 0.01 APTT PTT Ratio Sodium 136 Potassium 3.3 L Chloride 106 Carbon Dioxide 23 Anion Gap 7 BUN 14 Creatinine 1.08 Est Cr Clr Drug Dosing 52.4 Est GFR ( Amer) 63.3 Est GFR (Non-Af Amer) 54.6 BUN/Creatinine Ratio 13.0 Glucose 158 H POC Glucose Fasting Glucose 158 H Calcium 7.7 L Phosphorus 2.5 Magnesium 1.8 1.6 L Total Bilirubin 0.6 AST 31 ALT 14 Alkaline Phosphatase 164 H Total Protein 5.6 L Albumin 2.7 L Globulin 2.9 Albumin/Globulin Ratio 0.9 Urine Color Urine Appearance Urine pH Ur Specific George Urine Protein Urine Glucose (UA) Urine Ketones Urine Blood Urine Nitrite Urine Bilirubin Urine Urobilinogen Ur Leukocyte Esterase Urine WBC (Auto) Urine RBC (Auto) U Hyaline Cast (Auto) U Epithel Cells (Auto) Urine Bacteria (Auto) Stool H. pylori Ag 05/01/22 05/01/22 05/01/22 05:42 06:05 07:29 WBC RBC Hgb Hct MCV MCH MCHC RDW Std Deviation RDW Coeff of Jun Plt Count MPV Immature Gran % (Auto) Neut % (Auto) Lymph % (Auto) [place] % (Auto) Eos % (Auto) Baso % (Auto) Neut # (Auto) Lymph # (Auto) [place] # (Auto) Eos # (Auto) Baso # (Auto) Immature Gran # (Auto) APTT 84.3 H* PTT Ratio 3.1 Sodium Potassium Chloride Carbon Dioxide Anion Gap BUN Creatinine Est Cr Clr Drug Dosing Est GFR ( Amer) Est GFR (Non-Af Amer) BUN/Creatinine Ratio Glucose POC Glucose 190 H Fasting Glucose Calcium Phosphorus Magnesium Total Bilirubin AST ALT Alkaline Phosphatase Total Protein Albumin Globulin Albumin/Globulin Ratio Urine Color Yellow Urine Appearance Clear Urine pH 7.0 Ur Specific George 1.012 Urine Protein Negative Urine Glucose (UA) Trace H Urine Ketones Negative Urine Blood Trace H Urine Nitrite Negative Urine Bilirubin Negative Urine Urobilinogen Negative Ur Leukocyte Esterase Trace H Urine WBC (Auto) 5-10 H Urine RBC (Auto) 0-4 U Hyaline Cast (Auto) 1-5 U Epithel Cells (Auto) 20-30 H Urine Bacteria (Auto) Negative Stool H. pylori Ag 05/01/22 05/01/22 05/01/22 09:20 11:39 11:40 WBC RBC Hgb Hct MCV MCH MCHC RDW Std Deviation RDW Coeff of Jun Plt Count MPV Immature Gran % (Auto) Neut % (Auto) Lymph % (Auto) [place] % (Auto) Eos % (Auto) Baso % (Auto) Neut # (Auto) Lymph # (Auto) [place] # (Auto) Eos # (Auto) Baso # (Auto) Immature Gran # (Auto) APTT PTT Ratio Sodium Potassium Chloride Carbon Dioxide Anion Gap BUN Creatinine Est Cr Clr Drug Dosing Est GFR ( Amer) Est GFR (Non-Af Amer) BUN/Creatinine Ratio Glucose POC Glucose 308 H* 299 H Fasting Glucose Calcium Phosphorus Magnesium Total Bilirubin AST ALT Alkaline Phosphatase Total Protein Albumin Globulin Albumin/Globulin Ratio Urine Color Urine Appearance Urine pH Ur Specific [place] Urine Protein Urine Glucose (UA) Urine Ketones Urine Blood Urine Nitrite Urine Bilirubin Urine Urobilinogen Ur Leukocyte Esterase Urine WBC (Auto) Urine RBC (Auto) U Hyaline Cast (Auto) U Epithel Cells (Auto) Urine Bacteria (Auto) Stool H. pylori Ag Pending 05/01/22 05/01/22 12:16 15:45 WBC RBC Hgb Hct MCV MCH MCHC RDW Std Deviation RDW Coeff of Jun Plt Count MPV Immature Gran % (Auto) Neut % (Auto) Lymph % (Auto) [place] % (Auto) Eos % (Auto) Baso % (Auto) Neut # (Auto) Lymph # (Auto) [place] # (Auto) Eos # (Auto) Baso # (Auto) Immature Gran # (Auto) APTT 86.0 H* Pending PTT Ratio 3.1 Pending Sodium Potassium Chloride Carbon Dioxide Anion Gap BUN Creatinine Est Cr Clr Drug Dosing Est GFR ( Amer) Est GFR (Non-Af Amer) BUN/Creatinine Ratio Glucose POC Glucose Fasting Glucose Calcium Phosphorus Magnesium Total Bilirubin AST ALT Alkaline Phosphatase Total Protein Albumin Globulin Albumin/Globulin Ratio Urine Color Urine Appearance Urine pH Ur Specific [place] Urine Protein Urine Glucose (UA) Urine Ketones Urine Blood Urine Nitrite Urine Bilirubin Urine Urobilinogen Ur Leukocyte Esterase Urine WBC (Auto) Urine RBC (Auto) U Hyaline Cast (Auto) U Epithel Cells (Auto) Urine Bacteria (Auto) Stool H. 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 Pulmonary emboli I26.99 Acute cor pulmonale presence: without acute cor pulmonale Chronicity: acute Pulmonary embolism type: unspecified DVT (deep venous thrombosis) I82.452 Affected thrombotic vein of extremity: peroneal Chronicity: acute DVT location: lower extremity Laterality: left Hypokalemia E87.6 Hypomagnesemia E83.42 Diabetes E11.9 Cirrhosis of liver K74.60 Depression F32.9 Depression Type: unspecified Hypertension I10 Hypertension type: essential hypertension Atrial fibrillation I48.91 NSVT (nonsustained ventricular tachycardia) I47.2 (1) Pulmonary emboli Acute cor pulmonale presence: without acute cor pulmonale Chronicity: acute Pulmonary embolism type: unspecified Qualified Code(s): I26.99 - Other pulmonary embolism without acute cor pulmonale (2) DVT (deep venous thrombosis) Affected thrombotic vein of extremity: peroneal Chronicity: acute DVT location: lower extremity Laterality: left Qualified Code(s): I82.452 - Acute embolism and thrombosis of left peroneal vein (3) Depression Depression Type: unspecified Qualified Code(s): F32.9 - Major depressive disorder, single episode, unspecified (4) Hypertension Hypertension type: essential hypertension Qualified Code(s): I10 - Essential (primary) hypertension
[2022-05-01 16:27] LABS: Partial Thromboplastin Ratio 3.1
[2022-05-01 16:42] LABS: Partial Thromboplastin Time 84.2 Seconds (21.0-31.0)
[2022-05-01] MEDS: MIRTAZAPINE TAB 15 MG TAB PO SCH (21:25)
[2022-05-01] MEDS: VENLAFAXINE HCL XR 150 MG CAPXR PO SCH (21:25)
[2022-05-01 23:49] LABS: Partial Thromboplastin Ratio 2.4
[2022-05-01 23:59] LABS: Partial Thromboplastin Time 66.3 Seconds (21.0-31.0)
[2022-05-02] MEDS: FLUCONAZOLE 200 MG/100 ML BAG IV SCH (00:13)
[2022-05-02 06:58] LABS: Basophils # (auto) 0.06 K/uL (0-0.2); Basophils % (auto) 0.9 %; Eosinophils # (auto) 0.24 K/uL (0-0.50); Eosinophils % (auto) 3.8 %; Hematocrit (blood only) 24.9 % (34.1-44.9); Hemoglobin 7.9 g/dl (12.0-16.0); Immature Granulocytes # (auto) 0.01 K/uL (0.00-0.02); Immature Granulocytes % (auto) 0.2 %; Lymphocytes # (auto) 1.91 K/uL (1.2-3.4); Mean Corpuscular Hemoglobin 27.2 pg (25.0-34.0); Mean Corpuscular Hgb Conc 31.7 g/dL (32.0-36.0); Mean Corpuscular Volume 85.9 fL (80.0-100.0); Mean Platelet Volume 11.7 fL (9.4-12.3); Monocytes # (auto) 0.52 K/uL (0.24-0.82); Monocytes % (auto) 8.2 %; Neutrophils # (auto) 3.62 K/uL (1.4-6.5); Neutrophils % (auto) 56.9 %; Platelet Count 159 K/uL (130-400); RDW Coefficient of Variation 16.3 % (11.5-14.5); RDW Standard Deviation 50.5 fL (36.4-46.3); White Blood Count 6.36 K/ul (4.8-10.8)
[2022-05-02 07:18] LABS: Albumin Globulin Ratio 0.9 (0.9-2); Albumin Level 2.6 gm/dl (3.4-5.0); Bilirubin,Total 0.4 mg/dl (0.2-1.0); Calcium 7.6 mg/dl (8.5-10.1); Creatinine Clr Calc Pharmacy 52.4 ml/min; Est GFR (African American) 63.3 ml/min; Est GFR (Non-African American) 54.6 ml/min; Globulin 2.9 gm/dl (2.5-4.0); Magnesium 1.7 mg/dl (1.7-2.4); Phosphorus 2.7 mg/dl (2.5-4.9); Potassium 3.1 mmol/L (3.5-5.1); Total Protein 5.5 gm/dl (6.0-8.3)
[2022-05-02] MEDS ORDERED: POTASSIUM CHLORIDE 20 MEQ/15 ML UDC PO STA (07:20)
[2022-05-02 07:24] LABS: Polychromasia 1+
[2022-05-02 07:31] LABS: Partial Thromboplastin Ratio 2.4
[2022-05-02 07:43] LABS: Partial Thromboplastin Time 67.2 Seconds (21.0-31.0)
[2022-05-02] MEDS ORDERED: Nursing to Pharmacy Communication SCH (07:45)
[2022-05-02] MEDS ORDERED: POTASSIUM CHLORIDE CRTAB 20 MEQ TABCR PO STA (08:21)
[2022-05-02] MEDS: INSULIN ASPART PER UNIT SC SCH ×4 (08:38→21:21)
[2022-05-02] MEDS: METOPROLOL SUCC 25MG EXT REL TAB PO SCH (08:41)
[2022-05-02] MEDS: MULTIVITAMIN TAB PO SCH (08:41)
[2022-05-02] MEDS: PANTOprazole 40 MG in SYRINGE 0 ML IV SCH ×2 (08:41→21:21)
[2022-05-02] MEDS ORDERED: POTASSIUM CHLORIDE 20 MEQ/15 ML UDC PO ONE (11:20)
[2022-05-02] MEDS: HEPARIN SODIUM/DEXTROSE 25,000 UNITS/500 ML BAG IV SCH (13:12)
[2022-05-02] MEDS: POTASSIUM CHLORIDE CRTAB 20 MEQ TABCR PO ONE ×2 (13:13→14:27)
--- NOTE | 2022-05-02 14:25 | Hospitalist Progress Note ---
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 of fluconazole daily Neurology input appreciatedsee notes for details Neurology coordinating provisionally repeat lumbar puncture in a.m.Heparin h eld at 2 AM; would need to touch base with neurology early a.m. (3) Pulmonary emboli: Plan: Recent04/19initiated on Xarelto; subsequent presentation with GI bleed; underwent EGD, results above; then initiated on heparin, keep same pending lumbar puncture for issue #2; vascular surgery input noted and appreciatedno filter at present, see note for details; cannot disagree at present cautiously watch without IVC filter is appropriate; note heparin held 2 AM, 05-03-2022 Also, cautious, lower hemoglobin; once completely stable and all procedures done switch to oral anticoagulants (4) DVT (deep venous thrombosis): Plan: Initiated on heparin as above, vascular surgery input noted (5) Hypokalemia: Plan: Correct aggressively (6) Hypomagnesemia: Plan: Correct as appropriate (7) Diabetes: Plan: Sugars betterpharmacy glycemic management consulted (8) Cirrhosis of liver: Plan: Nonalcoholic cirrhosis Outpatient GI would be appropriate at this point (9) Depression: Plan: Medications include mirtazapine 30 mg p.o. at bedtime as well as venlafaxine 300 mg p.o. at bedtime Continue home medications while inpatient (10) Hypertension: Plan: Pressures acceptableno change (11) Atrial fibrillation: Plan: Continue metoprolol succinate Follow on telemetry Anticoagulated with Xarelto at home. Heparin resumed. (12) NSVT (nonsustained ventricular tachycardia): Plan: Episode overnight 2 days ago; in current context, aggressively correct electrolytes, continue metoprolol succinate and observe; recent echo preserved LV function Admission and Anticipated Discharge Date Admission Date: April 27, 2022 Subjective Follow-up of presentation with GI bleed, mental status changesno more bleeding; no complaints Physical Exam Physical Exam: Constitutional and general: No acute distress, looks biologic age Head and face: No puffiness, atraumatic Eyes: No scleral icterus, extraocular movements normal Neck: Supple, no JVD Musculoskeletal: No acute joint swelling, no bony abnormalities Skin/dermatologic/integument: No rash, no purpura Hematologic and lymphatic: pallor +, no petechia Gastrointestinal/abdomen: Nondistended, soft, nonacute Neurologic: Cranial nerves intact, nonfocal Psychiatry: Awake, alert, pleasant, communicative Cardiovascular: Heart rhythm regular, no rub, no murmur, no gallop Respiratory: Chest movements equal, no use of accessory muscles, no adventitious sounds Extremities: No edema, no cyanosis Results & Data Results & Data ([facility]) Vital Signs (Past 12 Hours) Vital Signs Temp Pulse Pulse Resp BP Pulse Ox O2 Del Method 05/02/22 11:05 36.9 C 78 17 117/60 97 Room Air 05/02/22 08:40 78 135/75 05/02/22 07:00 75 05/02/22 07:30 37.0 C 80 18 139/84 93 Room Air 05/02/22 02:41 37.3 C 89 22 134/80 97 Room Air Laboratory Results Laboratory Results - last 24 hr 05/01/22 05/01/22 05/01/22 15:45 16:19 20:42 WBC RBC Hgb Hct MCV MCH MCHC RDW Std Deviation RDW Coeff of Jun Plt Count MPV Immature Gran % (Auto) Neut % (Auto) Lymph % (Auto) [place] % (Auto) Eos % (Auto) Baso % (Auto) Neut # (Auto) Lymph # (Auto) [place]es # (Auto) Eos # (Auto) Baso # (Auto) Immature Gran # (Auto) Polychromasia APTT 84.2 H* PTT Ratio 3.1 Sodium Potassium Chloride Carbon Dioxide Anion Gap BUN Creatinine Est Cr Clr Drug Dosing Est GFR ( Amer) Est GFR (Non-Af Amer) POC Glucose 211 H 110 H Fasting Glucose Calcium Phosphorus Magnesium Total Bilirubin AST ALT Alkaline Phosphatase Total Protein Albumin Globulin Albumin/Globulin Ratio 05/01/22 05/02/22 05/02/22 22:58 06:35 06:35 WBC 6.36 RBC 2.90 L Hgb 7.9 L Hct 24.9 L MCV 85.9 MCH 27.2 MCHC 31.7 L RDW Std Deviation 50.5 H RDW Coeff of Jun 16.3 H Plt Count 159 MPV 11.7 Immature Gran % (Auto) 0.2 Neut % (Auto) 56.9 Lymph % (Auto) 30.0 Karnes % (Auto) 8.2 Eos % (Auto) 3.8 Baso % (Auto) 0.9 Neut # (Auto) 3.62 Lymph # (Auto) 1.91 Karnes # (Auto) 0.52 Eos # (Auto) 0.24 Baso # (Auto) 0.06 Immature Gran # (Auto) 0.01 Polychromasia 1+ APTT 66.3 H* PTT Ratio 2.4 Sodium 136 Potassium 3.1 L Chloride 106 Carbon Dioxide 23 Anion Gap 7 BUN 13 Creatinine 1.08 Est Cr Clr Drug Dosing 52.4 Est GFR ( Amer) 63.3 Est GFR (Non-Af Amer) 54.6 POC Glucose Fasting Glucose 164 H Calcium 7.6 L Phosphorus 2.7 Magnesium 1.7 Total Bilirubin 0.4 AST 29 ALT 12 Alkaline Phosphatase 155 H Total Protein 5.5 L Albumin 2.6 L Globulin 2.9 Albumin/Globulin Ratio 0.9 05/02/22 05/02/22 05/02/22 06:35 07:18 11:03 WBC RBC Hgb Hct MCV MCH MCHC RDW Std Deviation RDW Coeff of Jun Plt Count MPV Immature Gran % (Auto) Neut % (Auto) Lymph % (Auto) [place] % (Auto) Eos % (Auto) Baso % (Auto) Neut # (Auto) Lymph # (Auto) [place]es # (Auto) Eos # (Auto) Baso # (Auto) Immature Gran # (Auto) Polychromasia APTT 67.2 H* PTT Ratio 2.4 Sodium Potassium Chloride Carbon Dioxide Anion Gap BUN Creatinine Est Cr Clr Drug Dosing Est GFR ( Amer) Est GFR (Non-Af Amer) POC Glucose 177 H 213 H Fasting Glucose Calcium Phosphorus Magnesium Total Bilirubin AST ALT Alkaline Phosphatase Total Protein Albumin Globulin Albumin/Globulin Ratio 05/02/22 13:50 WBC RBC Hgb Hct MCV MCH MCHC RDW Std Deviation RDW Coeff of Jun Plt Count MPV Immature Gran % (Auto) Neut % (Auto) Lymph % (Auto) Karnes % (Auto) Eos % (Auto) Baso % (Auto) Neut # (Auto) Lymph # (Auto) [place]es # (Auto) Eos # (Auto) Baso # (Auto) Immature Gran # (Auto) Polychromasia APTT Pending PTT Ratio Pending Sodium Potassium Chloride Carbon Dioxide Anion Gap BUN Creatinine Est Cr Clr Drug Dosing Est GFR ( Amer) Est GFR (Non-Af Amer) POC Glucose Fasting Glucose Calcium Phosphorus Magnesium Total Bilirubin AST ALT Alkaline Phosphatase Total Protein Albumin Globulin Albumin/Globulin Ratio PG Care Time/CCT Total # of Minutes Spent Total Time Spent with Patient: Total time spent is greater than 50% in coordination of care (as documented) at patient's floor/unit and/or counseling patient: Coding Level of Care Code 37546 Subseq Hosp Care Lvl 3 Diagnoses Acute GI bleeding K92.2 Cryptococcal meningitis B45.1 Pulmonary emboli I26.99 Acute cor pulmonale presence: without acute cor pulmonale Chronicity: acute Pulmonary embolism type: unspecified DVT (deep venous thrombosis) I82.452 Affected thrombotic vein of extremity: peroneal Chronicity: acute DVT location: lower extremity Laterality: left Hypokalemia E87.6 Hypomagnesemia E83.42 Diabetes E11.9 Cirrhosis of liver K74.60 Depression F32.9 Depression Type: unspecified Hypertension I10 Hypertension type: essential hypertension Atrial fibrillation I48.91 NSVT (nonsustained ventricular tachycardia) I47.2 (1) DVT (deep venous thrombosis) Affected thrombotic vein of extremity: peroneal Chronicity: acute DVT location: lower extremity Laterality: left Qualified Code(s): I82.452 - Acute embolism and thrombosis of left peroneal vein (2) Depression Depression Type: unspecified Qualified Code(s): F32.9 - Major depressive disorder, single episode, unspecified (3) Pulmonary emboli Acute cor pulmonale presence: without acute cor pulmonale Chronicity: acute Pulmonary embolism type: unspecified Qualified Code(s): I26.99 - Other pulmonary embolism without acute cor pulmonale (4) Hypertension Hypertension type: essential hypertension Qualified Code(s): I10 - Essential (primary) hypertension
[2022-05-02] MEDS: POTASSIUM CHLORIDE / WTR 10 MEQ/100 ML PLCT IV SCH ×3 (14:33→17:51)
--- NOTE | 2022-05-02 14:35 | Pharmacy Report ---
Pharmacy Glycemic Short Note 2 - Date of Service May 02, 2022 - Glycemic Short BSG Results (Last 24 hours): 05/01/22 05/01/22 05/02/22 16:19 20:42 06:35 POC Glucose 211 H 110 H Fasting Glucose 164 H 05/02/22 05/02/22 07:18 11:03 POC Glucose 177 H 213 H Fasting Glucose OUTPATIENT ANTIDIABETIC REGIMEN: * Toujeo 68 units SC HS * Novolog SSI * HbA1c = 7.9% (04/20/22) ASSESSMENT: 05/02: * Sudha received a total of 69 units of insulin yesterday (30 units basal + 30 units bolus). BSGs were elevated: [id number] mg/dL. * Fasting BSG improved but remains elevated this AM at 177 mg/dL. Will continue with current basal dose which was just increased yesterday. Attempting to transition basal to HS to match how patient takes it at home. Will give basal with dinner tonight followed by HS tomorrow. * Novolog was tightened yesterday. Continue with this dose. 04/30: * Patient admitted 04/27, BSGs elevated on admission and have continued in the low 200s, today 311 mg/dL at lunch * Patient on several dextrose containing infusions, NPO --> clears but not eating lunch pending neuro eval today, however patient was sipping on orange juice over extended time this morning (approximately 30 gm, that was uncovered) * Pantoprazole infusion d/c, heparin on hold a current * Recent admissions BSGs well controlled with lantus 20 units and Novolog parameters 17/02. Will give 20 units of lantus now- patient currently NPO but has missed several days of basal insulin so suspect more basal deficiency at this point. * Will give one time looser correction now after speaking with RN and recent dextrose containing drip stopping and then go to previously used parameters PLAN FOR INPATIENT GLYCEMIC CONTROL: * Basal insulin * Lantus 30 units SC PM * Bolus insulin * NovoLog per scale ACHS or Q6hrs while NPO * Goal Range: Low 110 mg/dL - High 140 mg/dL * Correction Factor: 15 mg/dL/unit * Nutritional / Prandial insulin per carb ratio of 1 unit per 4 grams CHO consumed
[2022-05-02 15:03] LABS: Partial Thromboplastin Ratio 2.3
[2022-05-02 15:24] LABS: Partial Thromboplastin Time 62.9 Seconds (21.0-31.0)
[2022-05-02] MEDS ORDERED: LANTUS PER UNIT CHARGE SC ONE (16:30)
[2022-05-02] MEDS: MIRTAZAPINE TAB 15 MG TAB PO SCH (21:21)
[2022-05-02] MEDS: VENLAFAXINE HCL XR 150 MG CAPXR PO SCH (21:21)
[2022-05-03] MEDS: FLUCONAZOLE 200 MG/100 ML BAG IV SCH (00:56)
[2022-05-03] MEDS ORDERED: HOLD HEPARIN ORDER ONE (02:00)
[2022-05-03] MEDS ORDERED: PROCHLORPERAZINE 5 MG in SYRINGE 4 ML IV ONE (06:00)
[2022-05-03] MEDS: METOPROLOL SUCC 25MG EXT REL TAB PO SCH (08:13)
[2022-05-03] MEDS: PANTOprazole 40 MG in SYRINGE 0 ML IV SCH ×2 (08:13→20:52)
[2022-05-03] MEDS: MULTIVITAMIN TAB PO SCH (08:13)
[2022-05-03 08:56] LABS: Basophils # (auto) 0.04 K/uL (0-0.2); Basophils % (auto) 0.6 %; Eosinophils # (auto) 0.19 K/uL (0-0.50); Eosinophils % (auto) 2.7 %; Hemoglobin 8.1 g/dl (12.0-16.0); Immature Granulocytes # (auto) 0.02 K/uL (0.00-0.02); Immature Granulocytes % (auto) 0.3 %; Lymphocytes # (auto) 1.87 K/uL (1.2-3.4); Mean Corpuscular Hemoglobin 27.6 pg (25.0-34.0); Mean Corpuscular Hgb Conc 32.4 g/dL (32.0-36.0); Monocytes # (auto) 0.58 K/uL (0.24-0.82); Monocytes % (auto) 8.4 %; Neutrophils # (auto) 4.23 K/uL (1.4-6.5); Platelet Count 163 K/uL (130-400); RDW Coefficient of Variation 16.6 % (11.5-14.5); Red Blood Count 2.94 M/uL (3.93-5.22); White Blood Count 6.93 K/ul (4.8-10.8)
[2022-05-03 09:14] LABS: Partial Thromboplastin Ratio 0.9; Partial Thromboplastin Time 25.6 Seconds (21.0-31.0)
[2022-05-03] MEDS: INSULIN ASPART PER UNIT SC SCH ×4 (09:33→20:37)
[2022-05-03 09:51] LABS: Albumin Globulin Ratio 0.9 (0.9-2); Albumin Level 2.7 gm/dl (3.4-5.0); Bilirubin,Total 0.5 mg/dl (0.2-1.0); Calcium 8.2 mg/dl (8.5-10.1); Creatinine Clr Calc Pharmacy 52.5 ml/min; Est GFR (African American) 63.3 ml/min; Est GFR (Non-African American) 54.6 ml/min; Ferritin 28.3 ng/ml (8-388); Magnesium 1.4 mg/dl (1.7-2.4); Phosphorus 2.9 mg/dl (2.5-4.9); Potassium 3.8 mmol/L (3.5-5.1); Total Protein 5.7 gm/dl (6.0-8.3)
[2022-05-03] MEDS: MAGNESIUM SULFATE / D5W 1 GM/100 ML BAG IV SCH ×2 (12:19→14:19)
[2022-05-03] MEDS: MAGNESIUM OXIDE 400 MG TAB PO SCH (12:55)
--- NOTE | 2022-05-03 17:05 | Hospitalist Progress Note ---
Date of Service May 03, 2022 Assessment & Plan (1) Acute GI bleeding: Plan: Acute GI bleed/hematemesis Did not require transfusion EGD: shallow ulcers in the stomach with gastritis; biopsy shows chronic active gastritis with ulceration Continue PPI twice daily Trend hemoglobin Symptomatically improved, no pain for the first time with meals 05/03 (2) Cryptococcal meningitis: Plan: -Diagnosed early February of this year; patient received 2 weeks of amphotericin B and Flucytosine -She developed acute kidney insufficiency and these medications were discontinued -Patient was then started on 800 mg of fluconazole daily with anticipation of 1 year of treatment but developed severe nausea and vomiting. Decreased to 200 mg p.o. fluconazole daily -? Contribution of GI ulcers to nausea/vomiting above. Discussed with neurology. Initially held heparin and was anticipating lumbar puncture. Given patient's clinical stability, and that her symptoms have improved and she is otherwise well on reassessment recommended deferring lumbar puncture at this time. Heparin resumed. (3) Pulmonary emboli: Plan: - Recent04/19initiated on Xarelto - subsequent presentation with GI bleed; underwent EGD, results above; then initiated on heparin, - Vascular surgery input noted and appreciatedno filter at present, see note for details Did discuss with coagulation clinic. Given rebleed considered switch to Eliquis to minimize bleeding risk, however switch to Eliquis BID unlikely to significantly lower bleeding risk. Heparin resumed, warfarin started. If recurrent hemodynamically subacute bleeds may revisit filter discussion at that time (4) DVT (deep venous thrombosis): Plan: Heparin as above, plans to move to warfarin with Lovenox bridge as needed (5) Hypokalemia: Plan: Repleted, normalized 05/03 (6) Hypomagnesemia: Plan: Trended, supplemented (7) Diabetes: Plan: pharmacy glycemic management consulted (8) Cirrhosis of liver: Plan: Nonalcoholic cirrhosis Outpatient GI follow-up (9) Depression: Plan: Medications include mirtazapine 30 mg p.o. at bedtime as well as venlafaxine 300 mg p.o. at bedtime Continue home medications while inpatient (10) Hypertension: Plan: Pressures acceptableno change (11) Atrial fibrillation: Plan: Continue metoprolol succinate Follow on telemetry Transitioning from Xarelto to warfarin as noted (12) NSVT (nonsustained ventricular tachycardia): Plan: Episode overnight 2 days ago; continue metoprolol succinate and observe; recent echo preserved LV function. Electrolytes normalized subsequently with repletion Admission and Anticipated Discharge Date Admission Date: April 27, 2022 Hamida Batista is seen at the bedside. She reports she feels decently well, and back to baseline today. She reports she ate breakfast without discomfort or nausea or vomiting for the first time this morning and was very happy for this. No headaches. No fever, chills, sweats, night sweats, chest pain, chest pressure, diarrhea, or rash. No palpitations. Discussed anticoagulation options in detail. Anticipate moving to warfarin due to her history of bleeding on DOAC, and moved to Eliquis unlikely to significantly lower this risk Review of Systems Review of Systems: All systems reviewed & are unremarkable except as noted in Subjective Physical Exam Physical Exam: General: A&Ox3. NAD. Cooperative. HEENT: Atraumatic, normocephalic. Vision and hearing grossly intact. Pulm: CTAB A&P. -wheezes, -rales, -rhonchi. Symmetrical chest rise. No increase in work of breathing. No respiratory distress. Cardiac: RRR, -mrg. Radial pulses intact and symmetrical. Abdominal: Nontender, nondistended, soft. BS present. Extremities: Warm, dry. Sensation soft touch intact in hands and feet without asymmetry. Water Control Supervisor strength and ankle dorsiflexion/plantar flexion intact. Hip flexion intact and symmetrical in bed Results & Data Results & Data ([facility]) Vital Signs (Past 12 Hours) Vital Signs Temp Pulse Pulse Resp BP Pulse Ox O2 Del Method 05/03/22 16:32 37.0 C 76 18 122/70 95 Room Air 05/03/22 14:00 79 05/03/22 11:48 37.0 C 82 20 116/68 96 Room Air 05/03/22 07:59 82 05/03/22 08:01 37.0 C 76 18 102/62 96 Room Air PG Care Time/CCT Total # of Minutes Spent Total Time Spent with Patient: Total time spent is greater than 50% in coordination of care (as documented) at patient's floor/unit and/or counseling patient: Coding Level of Care Code 22755 Subseq Hosp Care Lvl 2 Diagnoses Acute GI bleeding K92.2 Cryptococcal meningitis B45.1 Pulmonary emboli I26.99 Acute cor pulmonale presence: without acute cor pulmonale Chronicity: acute Pulmonary embolism type: unspecified DVT (deep venous thrombosis) I82.452 Affected thrombotic vein of extremity: peroneal Chronicity: acute DVT location: lower extremity Laterality: left Hypokalemia E87.6 Hypomagnesemia E83.42 Diabetes E11.9 Cirrhosis of liver K74.60 Depression F32.9 Depression Type: unspecified Hypertension I10 Hypertension type: essential hypertension Atrial fibrillation I48.91 NSVT (nonsustained ventricular tachycardia) I47.2 (1) Pulmonary emboli Acute cor pulmonale presence: without acute cor pulmonale Chronicity: acute Pulmonary embolism type: unspecified Qualified Code(s): I26.99 - Other pulmonary embolism without acute cor pulmonale (2) DVT (deep venous thrombosis) Affected thrombotic vein of extremity: peroneal Chronicity: acute DVT location: lower extremity Laterality: left Qualified Code(s): I82.452 - Acute embolism and thrombosis of left peroneal vein (3) Depression Depression Type: unspecified Qualified Code(s): F32.9 - Major depressive disorder, single episode, unspecified (4) Hypertension Hypertension type: essential hypertension Qualified Code(s): I10 - Essential (primary) hypertension
[2022-05-03] MEDS: HEPARIN SODIUM/DEXTROSE 25,000 UNITS/500 ML BAG IV SCH (17:11)
[2022-05-03] MEDS: LANTUS PER UNIT CHARGE SC SCH (20:50)
[2022-05-03] MEDS: VENLAFAXINE HCL XR 150 MG CAPXR PO SCH (21:07)
[2022-05-03] MEDS: MIRTAZAPINE TAB 15 MG TAB PO SCH (21:07)
[2022-05-04 00:10] LABS: Partial Thromboplastin Ratio 1.6; Partial Thromboplastin Time 42.7 Seconds (21.0-31.0)
[2022-05-04] MEDS: FLUCONAZOLE 200 MG/100 ML BAG IV SCH ×2 (01:57→23:49)
[2022-05-04 07:18] LABS: Basophils # (auto) 0.07 K/uL (0-0.2); Basophils % (auto) 0.7 %; Eosinophils # (auto) 0.25 K/uL (0-0.50); Eosinophils % (auto) 2.6 %; Hematocrit (blood only) 27.6 % (34.1-44.9); Hemoglobin 8.8 g/dl (12.0-16.0); Immature Granulocytes # (auto) 0.03 K/uL (0.00-0.02); Immature Granulocytes % (auto) 0.3 %; Lymphocytes # (auto) 2.36 K/uL (1.2-3.4); Lymphocytes % (auto) 24.4 %; Mean Corpuscular Hemoglobin 27.5 pg (25.0-34.0); Mean Corpuscular Hgb Conc 31.9 g/dL (32.0-36.0); Mean Corpuscular Volume 86.3 fL (80.0-100.0); Mean Platelet Volume 11.5 fL (9.4-12.3); Monocytes # (auto) 0.64 K/uL (0.24-0.82); Monocytes % (auto) 6.6 %; Neutrophils # (auto) 6.34 K/uL (1.4-6.5); Neutrophils % (auto) 65.4 %; Platelet Count 215 K/uL (130-400); RDW Coefficient of Variation 16.4 % (11.5-14.5); RDW Standard Deviation 50.9 fL (36.4-46.3); White Blood Count 9.69 K/ul (4.8-10.8)
[2022-05-04 07:39] LABS: Albumin Globulin Ratio 0.9 (0.9-2); Albumin Level 2.9 gm/dl (3.4-5.0); Bilirubin,Total 0.5 mg/dl (0.2-1.0); Calcium 8.3 mg/dl (8.5-10.1); Creatinine Clr Calc Pharmacy 46.1 ml/min; Est GFR (African American) 54.6 ml/min; Est GFR (Non-African American) 47.1 ml/min; Globulin 3.4 gm/dl (2.5-4.0); Magnesium 1.7 mg/dl (1.7-2.4); Phosphorus 3.2 mg/dl (2.5-4.9); Potassium 3.9 mmol/L (3.5-5.1); Total Protein 6.3 gm/dl (6.0-8.3)
[2022-05-04 08:06] LABS: Partial Thromboplastin Time 56.2 Seconds (21.0-31.0)
[2022-05-04] MEDS ORDERED: LORazepam 0.5 MG TAB PO ONE (08:10)
[2022-05-04] MEDS: PANTOprazole 40 MG in SYRINGE 0 ML IV SCH (08:10)
[2022-05-04] MEDS: INSULIN ASPART PER UNIT SC SCH ×4 (08:41→21:25)
[2022-05-04] MEDS: MAGNESIUM OXIDE 400 MG TAB PO SCH (10:24)
[2022-05-04] MEDS: MULTIVITAMIN TAB PO SCH (10:24)
[2022-05-04] MEDS: METOPROLOL SUCC 25MG EXT REL TAB PO SCH (10:24)
--- NOTE | 2022-05-04 12:34 | Pharmacy Report ---
Pharmacy Glycemic Short Note 2 - Date of Service May 04, 2022 - Glycemic Short BSG Results (Last 24 hours): 05/03/22 05/03/22 05/04/22 16:24 20:34 06:30 POC Glucose 170 H 102 H Fasting Glucose 116 H 05/04/22 05/04/22 07:13 11:08 POC Glucose 134 H 132 H Fasting Glucose OUTPATIENT ANTIDIABETIC REGIMEN: * Toujeo 68 units SC HS * Novolog SSI * HbA1c = 7.9% (04/20/22) ASSESSMENT: 05/04: * Patient well controlled over the past 48 hours with BSGs ranging from 102-170 mg/dL. Fasting this morning was 134 mg/dL. Will continue with current Lantus and novolog scale. Patient is ordered aq diet. 05/02: * Sudha received a total of 69 units of insulin yesterday (30 units basal + 30 units bolus). BSGs were elevated: 897-979-078-110 mg/dL. * Fasting BSG improved but remains elevated this AM at 177 mg/dL. Will continue with current basal dose which was just increased yesterday. Attempting to transition basal to HS to match how patient takes it at home. Will give basal with dinner tonight followed by HS tomorrow. * Novolog was tightened yesterday. Continue with this dose. 04/30: * Patient admitted 04/27, BSGs elevated on admission and have continued in the low 200s, today 311 mg/dL at lunch * Patient on several dextrose containing infusions, NPO --> clears but not eating lunch pending neuro eval today, however patient was sipping on orange juice over extended time this morning (approximately 30 gm, that was uncovered) * Pantoprazole infusion d/c, heparin on hold a current * Recent admissions BSGs well controlled with lantus 20 units and Novolog parameters 17/02. Will give 20 units of lantus now- patient currently NPO but has missed several days of basal insulin so suspect more basal deficiency at this point. * Will give one time looser correction now after speaking with RN and recent dextrose containing drip stopping and then go to previously used parameters PLAN FOR INPATIENT GLYCEMIC CONTROL: * Basal insulin * Lantus 30 units SC PM * Bolus insulin * NovoLog per scale ACHS or Q6hrs while NPO * Goal Range: Low 110 mg/dL - High 140 mg/dL * Correction Factor: 15 mg/dL/unit * Nutritional / Prandial insulin per carb ratio of 1 unit per 4 grams CHO consumed
--- NOTE | 2022-05-04 12:57 | Hospitalist Progress Note ---
Date of Service May 04, 2022 Assessment & Plan (1) Cryptococcal meningitis: Plan: -Diagnosed early February of this year; patient received 2 weeks of amphotericin B and Flucytosine -She developed acute kidney insufficiency and these medications were discontinued -Patient was then started on 800 mg of fluconazole daily with anticipation of 1 year of treatment but developed severe nausea and vomiting. Decreased to 200 mg p.o. fluconazole daily -? Contribution of GI ulcers to nausea/vomiting above. Discussed with neurology. Initially held heparin and was anticipating lumbar puncture. Given patient's clinical stability, and that her symptoms improved and she is otherwise well on reassessment recommended deferring lumbar puncture at this time. Heparin resumed. Intention to bridge back to warfarin potentially with Lovenox, however patient with uptrending creatinine/mild ALBINA 05/04 limiting this. Encouraged p.o. and following overnight for BMP. Fluconazole has already been decreased, will defer additional adjustment for creatinine clearance below 50 today, repeat in the morning. (2) Pulmonary emboli: Plan: - Recent04/19initiated on Xarelto - subsequent presentation with GI bleed; underwent EGD, results above; then initiated on heparin, - Vascular surgery input noted and appreciatedno filter at present, see note for details Did discuss with coagulation clinic. Given rebleed considered switch to Eliquis to minimize bleeding risk, however switch to Eliquis BID unlikely to significantly lower bleeding risk. Heparin resumed, warfarin started. If recurrent hemodynamically subacute bleeds may revisit filter discussion at that time. Creatinine clearance less than 58/9 with mild rise in creatinine, Lovenox bridge deferred and will follow overnight (3) DVT (deep venous thrombosis): Plan: Identified on venous Doppler 04/19/2022 Xarelto on hold due to hematemesis, switched to warfarin as noted above (4) Hypokalemia: Plan: Normalized with repletion, subsequently stable with improved p.o. (5) Hypomagnesemia: Plan: Magnesium level 1.4, normalized with repletion and improvement in emesis No diarrhea but patient did have hematic emesis (6) Diabetes: Plan: Hold home medications due to n.p.o. status for acute GI bleed with hematemesis Continue NovoLog sliding scale (7) Cirrhosis of liver: Plan: Nonalcoholic cirrhosis GI consulted and following (8) Depression: Plan: Medications include mirtazapine 30 mg p.o. at bedtime as well as venlafaxine 300 mg p.o. at bedtime Continue home medications while inpatient (9) Hypertension: Plan: Metoprolol resumed (10) Acute GI bleeding: Plan: Hematemesis Nasogastric tube removed with the EGD Gastroenterology is consulted. Appreciate their input. EGD with shallow ulcers in the stomach with gastritis. Biopsies taken and pathology results are pending. Continue PPI Advance diet as tolerated (11) DVT prophylaxis: Plan: On heparin/warfarin as noted (12) Atrial fibrillation: Plan: Continue metoprolol succinate Follow on telemetry Anticoagulated with Xarelto at home. Converted to heparin/warfarin as noted (13) Acute metabolic encephalopathy: Admission and Anticipated Discharge Date Admission Date: April 27, 2022 Subjective At bedside today. Tolerating breakfast, continues to feel overall well. A little bit more nausea today than yesterday, but still greatly improved from coming in. Has not had any bleeding today. No chest pain, chest pressure, lightheadedness, dizziness, syncope, presyncope. No diarrhea. No emesis. Feels that she is globally a little bit weak, but doing much better overall Review of Systems Review of Systems: All systems reviewed & are unremarkable except as noted in Subjective Physical Exam Physical Exam: General: A&Ox3. NAD. Cooperative. HEENT: Atraumatic, normocephalic. Vision and hearing grossly intact. Pulm: CTAB A&P. -wheezes, -rales, -rhonchi. Symmetrical chest rise. No increase in work of breathing. No respiratory distress. Cardiac: RRR, -mrg. Radial pulses intact and symmetrical. Abdominal: Nontender, nondistended, soft. BS present. Extremities: Warm, dry. Results & Data Results & Data ([facility]) Vital Signs (Past 12 Hours) Vital Signs Temp Pulse Pulse Resp BP Pulse Ox O2 Del Method 05/04/22 11:40 37.1 C 79 19 119/69 97 Room Air 05/04/22 07:32 37.0 C 82 20 110/68 96 Room Air 05/04/22 07:00 84 05/04/22 03:15 37.4 C 96 H 16 113/62 92 Room Air PG Care Time/CCT Total # of Minutes Spent Total Time Spent with Patient: Total time spent is greater than 50% in coordination of care (as documented) at patient's floor/unit and/or counseling patient: Coding Level of Care Code 07637 Subseq Hosp Care Lvl 2 Diagnoses Cryptococcal meningitis B45.1 Pulmonary emboli I26.99 Acute cor pulmonale presence: without acute cor pulmonale Chronicity: acute Pulmonary embolism type: unspecified DVT (deep venous thrombosis) I82.452 Affected thrombotic vein of extremity: peroneal Chronicity: acute DVT location: lower extremity Laterality: left Hypokalemia E87.6 Hypomagnesemia E83.42 Diabetes E11.9 Cirrhosis of liver K74.60 Depression F32.9 Depression Type: unspecified Hypertension I10 Hypertension type: essential hypertension Acute GI bleeding K92.2 DVT prophylaxis Z29.9 Atrial fibrillation I48.91 Acute metabolic encephalopathy G93.41 (1) Pulmonary emboli Acute cor pulmonale presence: without acute cor pulmonale Chronicity: acute Pulmonary embolism type: unspecified Qualified Code(s): I26.99 - Other pulmonary embolism without acute cor pulmonale (2) DVT (deep venous thrombosis) Affected thrombotic vein of extremity: peroneal Chronicity: acute DVT location: lower extremity Laterality: left Qualified Code(s): I82.452 - Acute embolism and thrombosis of left peroneal vein (3) Depression Depression Type: unspecified Qualified Code(s): F32.9 - Major depressive disorder, single episode, unspecified (4) Hypertension Hypertension type: essential hypertension Qualified Code(s): I10 - Essential (primary) hypertension
[2022-05-04] MEDS: HEPARIN SODIUM/DEXTROSE 25,000 UNITS/500 ML BAG IV SCH (17:09)
[2022-05-04] MEDS: WARFARIN SOD 2.5 MG TAB PO SCH (17:09)
[2022-05-04] MEDS: LANTUS PER UNIT CHARGE SC SCH (21:25)
[2022-05-04] MEDS: PANTOprazole 40 MG TAB PO SCH (21:29)
[2022-05-04] MEDS: MIRTAZAPINE TAB 15 MG TAB PO SCH (21:30)
[2022-05-04] MEDS: VENLAFAXINE HCL XR 150 MG CAPXR PO SCH (21:30)
[2022-05-05 05:40] LABS: Basophils # (auto) 0.08 K/uL (0-0.2); Basophils % (auto) 0.8 %; Eosinophils # (auto) 0.34 K/uL (0-0.50); Eosinophils % (auto) 3.6 %; Hematocrit (blood only) 26.2 % (34.1-44.9); Hemoglobin 8.4 g/dl (12.0-16.0); Immature Granulocytes # (auto) 0.02 K/uL (0.00-0.02); Immature Granulocytes % (auto) 0.2 %; Lymphocytes # (auto) 3.35 K/uL (1.2-3.4); Lymphocytes % (auto) 35.3 %; Mean Corpuscular Hemoglobin 26.9 pg (25.0-34.0); Mean Corpuscular Hgb Conc 32.1 g/dL (32.0-36.0); Mean Platelet Volume 11.3 fL (9.4-12.3); Monocytes # (auto) 0.69 K/uL (0.24-0.82); Monocytes % (auto) 7.3 %; Neutrophils # (auto) 5.01 K/uL (1.4-6.5); Neutrophils % (auto) 52.8 %; Platelet Count 207 K/uL (130-400); RDW Coefficient of Variation 16.6 % (11.5-14.5); RDW Standard Deviation 50.7 fL (36.4-46.3); Red Blood Count 3.12 M/uL (3.93-5.22); White Blood Count 9.49 K/ul (4.8-10.8)
[2022-05-05 05:54] LABS: Albumin Globulin Ratio 0.9 (0.9-2); Albumin Level 2.9 gm/dl (3.4-5.0); Bilirubin,Total 0.4 mg/dl (0.2-1.0); Calcium 8.4 mg/dl (8.5-10.1); Creatinine Clr Calc Pharmacy 45.7 ml/min; Est GFR (African American) 54.1 ml/min; Est GFR (Non-African American) 46.6 ml/min; Globulin 3.4 gm/dl (2.5-4.0); Magnesium 1.6 mg/dl (1.7-2.4); Phosphorus 3.2 mg/dl (2.5-4.9); Potassium 3.4 mmol/L (3.5-5.1); Total Protein 6.3 gm/dl (6.0-8.3)
[2022-05-05 06:06] LABS: INR 1.2 (0.9-1.1); Prothrombin Time 12.5 Seconds (9.0-12.0)
[2022-05-05 06:12] LABS: Partial Thromboplastin Time 55.2 Seconds (21.0-31.0)
[2022-05-05] MEDS: INSULIN ASPART PER UNIT SC SCH ×4 (07:59→20:17)
[2022-05-05] MEDS: [UNRECOGNIZED DRUG - REMARK] SCH ×3 (07:59→09:24)
[2022-05-05] MEDS: MULTIVITAMIN TAB PO SCH (08:00)
[2022-05-05] MEDS: METOPROLOL SUCC 25MG EXT REL TAB PO SCH (08:00)
[2022-05-05] MEDS: MAGNESIUM OXIDE 400 MG TAB PO SCH (08:00)
[2022-05-05] MEDS: PANTOprazole 40 MG TAB PO SCH ×2 (08:01→20:08)
--- NOTE | 2022-05-05 08:27 | Hospitalist Progress Note ---
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 Decreased to 200 mg p.o. fluconazole daily -egd did suggest gastritis and shallow ulcers 04/29, Id recommends change to Cressemba, it is non formulary here Discussed with neurology. Initially held heparin and was anticipating lumbar puncture. Given patient's clinical stability, and that her symptoms improved and she is otherwise well on reassessment recommended deferring lumbar puncture at this time. Heparin resumed. Intention to bridge back to warfarin Fluconazole has already been decreased, will explioare the Cressemba option (2) Pulmonary emboli: Plan: - Recent04/19initiated on Xarelto - subsequent presentation with GI bleed; underwent EGD, results above; then initiated on heparin, - Vascular surgery input noted and appreciatedno filter at present, see note for details Did discuss with coagulation clinic. Given rebleed considered switch to Eliquis to minimize bleeding risk, however switch to Eliquis BID unlikely to significantly lower bleeding risk. Heparin resumed, warfarin started. (3) DVT (deep venous thrombosis): Plan: Identified on venous Doppler 04/19/2022 Xarelto on hold due to hematemesis, switched to warfarin as noted above (4) Hypokalemia: Plan: Normalized with repletion, subsequently stable with improved p.o. (5) Hypomagnesemia: Plan: Magnesium level 1.4, normalized with repletion and improvement in emesis No diarrhea but patient did have hematic emesis (6) Diabetes: Plan: Hold home medications due to n.p.o. status for acute GI bleed with hematemesis Continue NovoLog sliding scale (7) Cirrhosis of liver: Plan: Nonalcoholic cirrhosis GI consulted and following (8) Depression: Plan: Medications include mirtazapine 30 mg p.o. at bedtime as well as venlafaxine 300 mg p.o. at bedtime Continue home medications while inpatient (9) Hypertension: Plan: Metoprolol resumed (10) Acute GI bleeding: Plan: Hematemesis Nasogastric tube removed with the EGD Gastroenterology is consulted. Appreciate their input. EGD with shallow ulcers in the stomach with gastritis. Biopsies taken and p athology results are pending. Continue PPI Advance diet as tolerated (11) DVT prophylaxis: Plan: On heparin/warfarin as noted (12) Atrial fibrillation: Plan: Continue metoprolol succinate Follow on telemetry Anticoagulated with Xarelto at home. Converted to heparin/warfarin as noted (13) Acute metabolic encephalopathy: Admission and Anticipated Discharge Date Admission Date: April 27, 2022 Subjective pt feels much improved, did vomit after chicken noodle soup last night. able to get in po liquids, does have some confusions Review of Systems Review of Systems: Mild distress and fatigue, some memory loss no headache, no visual changes no speech or swallowing issues no chest pain, pressure or palpitations no shortness of breath, cough or wheezes no abdominal pain, did have some nausea or vomiting, no diarrhea no dysuria, hematuria or frequency no focal joint pain or swelling no back pain, CVA tenderness or radicular pain no bruising, bleeding or rashes no focal signs of weakness or numbness or altered sensation no complaints of anxiety or depression.. Physical Exam Physical Exam: The patient appeared well nourished and normally developed. Vital signs as documented. Head exam is normocephalic atraumatic Neck is without JVD, thyromegaly, or carotid bruits. Lungs are clear to auscultation, no focal loss of breath sounds Cardiac exam, Rhythm is regular.. No murmurs, rubs or gallops. Abdominal exam reveals normal bowel sounds, soft non tender, no masses Extremities are nonedematous and both pedal pulses are present Neurologic exam is alert and oriented, no focal loss of strength or sensation Skin is without bruises or rashes Psychologically is without concerns for anxiety or depression.. Results & Data Results & Data ([facility]) Vital Signs (Past 12 Hours) Vital Signs Temp Pulse Pulse Resp BP Pulse Ox O2 Del Method 05/05/22 08:01 98.4 F 79 17 116/57 L 96 Room Air 05/05/22 07:10 82 05/04/22 22:17 75 05/05/22 00:19 98.6 F 79 14 111/65 93 Room Air PG Care Time/CCT Total # of Minutes Spent Total Time Spent with Patient: Total time spent is greater than 50% in coordination of care (as documented) at patient's floor/unit and/or counseling patient: Coding Level of Care Code 97921 Subseq Hosp Care Lvl 2 Diagnoses Cryptococcal meningitis B45.1 Pulmonary emboli I26.99 Acute cor pulmonale presence: without acute cor pulmonale Chronicity: acute Pulmonary embolism type: unspecified DVT (deep venous thrombosis) I82.452 Affected thrombotic vein of extremity: peroneal Chronicity: acute DVT location: lower extremity Laterality: left Hypokalemia E87.6 Hypomagnesemia E83.42 Diabetes E11.9 Cirrhosis of liver K74.60 Depression F32.9 Depression Type: unspecified Hypertension I10 Hypertension type: essential hypertension Acute GI bleeding K92.2 DVT prophylaxis Z29.9 Atrial fibrillation I48.91 Acute metabolic encephalopathy G93.41 (1) DVT (deep venous thrombosis) Affected thrombotic vein of extremity: peroneal Chronicity: acute DVT location: lower extremity Laterality: left Qualified Code(s): I82.452 - Acute embolism and thrombosis of left peroneal vein (2) Depression Depression Type: unspecified Qualified Code(s): F32.9 - Major depressive disorder, single episode, unspecified (3) Pulmonary emboli Acute cor pulmonale presence: without acute cor pulmonale Chronicity: acute Pulmonary embolism type: unspecified Qualified Code(s): I26.99 - Other pulmonary embolism without acute cor pulmonale (4) Hypertension Hypertension type: essential hypertension Qualified Code(s): I10 - Essential (primary) hypertension
[2022-05-05] MEDS ORDERED: MAGNESIUM SULFATE / D5W 1 GM/100 ML BAG IV ONE (08:45)
[2022-05-05] MEDS: POTASSIUM CHLORIDE 10 MEQ / 100ML WTR IV SCH ×3 (09:25→12:41)
[2022-05-05] MEDS ORDERED: ENOXAPARIN INJ 60 MG/0.6 ML SYR SQ SCH (09:30)
[2022-05-05] MEDS ORDERED: POTASSIUM CHLORIDE / WTR 10 MEQ/100 ML PLCT IV SCH ×2 (11:45)
--- NOTE | 2022-05-05 12:03 | Pharmacy Report ---
Pharmacy Glycemic Short Note 2 - Date of Service May 05, 2022 - Glycemic Short BSG Results (Last 24 hours): 05/04/22 05/04/22 05/05/22 16:19 20:32 05:05 POC Glucose 159 H 154 H Fasting Glucose 108 H 05/05/22 05/05/22 07:29 11:05 POC Glucose 96 101 H Fasting Glucose OUTPATIENT ANTIDIABETIC REGIMEN: * Toujeo 68 units SC HS * Novolog SSI * HbA1c = 7.9% (04/20/22) ASSESSMENT: 05/05: * Patient remains well controlled today. However fasting BSG and lunchtime BSG are downtrending somewhat. Will empirically decrease lantus dose and loosen novolog to prevent a low. Patient only ate dinner yesterday and has not eaten breakfast or lunch again today which may be contributing to the downtrend somewhat. 05/04: * Patient well controlled over the past 48 hours with BSGs ranging from 102-170 mg/dL. Fasting this morning was 134 mg/dL. Will continue with current Lantus and novolog scale. Patient is ordered a diet. 05/02: * Sudha received a total of 69 units of insulin yesterday (30 units basal + 30 units bolus). BSGs were elevated: 220-367-761-110 mg/dL. * Fasting BSG improved but remains elevated this AM at 177 mg/dL. Will continue with current basal dose which was just increased yesterday. Attempting to transition basal to HS to match how patient takes it at home. Will give basal with dinner tonight followed by HS tomorrow. * Novolog was tightened yesterday. Continue with this dose. 04/30: * Patient admitted 04/27, BSGs elevated on admission and have continued in the low 200s, today 311 mg/dL at lunch * Patient on several dextrose containing infusions, NPO --> clears but not eating lunch pending neuro eval today, however patient was sipping on orange juice over extended time this morning (approximately 30 gm, that was uncovered) * Pantoprazole infusion d/c, heparin on hold a current * Recent admissions BSGs well controlled with lantus 20 units and Novolog parameters /. Will give 20 units of lantus now- patient currently NPO but has missed several days of basal insulin so suspect more basal deficiency at this point. * Will give one time looser correction now after speaking with RN and recent dextrose containing drip stopping and then go to previously used parameters PLAN FOR INPATIENT GLYCEMIC CONTROL: * Basal insulin * Lantus 25 units SC PM * Bolus insulin * NovoLog per scale ACHS or Q6hrs while NPO * Goal Range: Low 110 mg/dL - High 140 mg/dL * Correction Factor: 20 mg/dL/unit * Nutritional / Prandial insulin per carb ratio of 1 unit per 5 grams CHO consumed
[2022-05-05] MEDS: WARFARIN SOD 2.5 MG TAB PO SCH (17:11)
[2022-05-05] MEDS: FLUCONAZOLE 100 MG TAB PO SCH (17:12)
[2022-05-05] MEDS: ENOXAPARIN 80 MG/0.8 ML SYR SQ SCH (20:08)
[2022-05-05] MEDS: MIRTAZAPINE TAB 15 MG TAB PO SCH (20:08)
[2022-05-05] MEDS: VENLAFAXINE HCL XR 150 MG CAPXR PO SCH (20:08)
[2022-05-05] MEDS: LANTUS PER UNIT CHARGE SC SCH (20:18)
[2022-05-06 04:36] LABS: Basophils # (auto) 0.04 K/uL (0-0.2); Basophils % (auto) 0.6 %; Eosinophils # (auto) 0.24 K/uL (0-0.50); Eosinophils % (auto) 3.5 %; Hematocrit (blood only) 24.2 % (34.1-44.9); Hemoglobin 7.8 g/dl (12.0-16.0); Immature Granulocytes # (auto) 0.02 K/uL (0.00-0.02); Immature Granulocytes % (auto) 0.3 %; Lymphocytes # (auto) 2.31 K/uL (1.2-3.4); Lymphocytes % (auto) 34.1 %; Mean Corpuscular Hemoglobin 27.4 pg (25.0-34.0); Mean Corpuscular Hgb Conc 32.2 g/dL (32.0-36.0); Mean Corpuscular Volume 84.9 fL (80.0-100.0); Mean Platelet Volume 11.4 fL (9.4-12.3); Monocytes # (auto) 0.56 K/uL (0.24-0.82); Monocytes % (auto) 8.3 %; Neutrophils % (auto) 53.2 %; Platelet Count 166 K/uL (130-400); RDW Coefficient of Variation 16.2 % (11.5-14.5); RDW Standard Deviation 50.3 fL (36.4-46.3); Red Blood Count 2.85 M/uL (3.93-5.22); White Blood Count 6.77 K/ul (4.8-10.8)
[2022-05-06 04:50] LABS: INR 1.3 (0.9-1.1); Partial Thromboplastin Ratio 1.3; Prothrombin Time 13.8 Seconds (9.0-12.0)
[2022-05-06 05:04] LABS: Albumin Globulin Ratio 0.9 (0.9-2); Albumin Level 2.6 gm/dl (3.4-5.0); Bilirubin,Total 0.4 mg/dl (0.2-1.0); Calcium 8.1 mg/dl (8.5-10.1); Creatinine Clr Calc Pharmacy 51.2 ml/min; Est GFR (African American) 61.9 ml/min; Est GFR (Non-African American) 53.4 ml/min; Magnesium 1.5 mg/dl (1.7-2.4); Phosphorus 3.7 mg/dl (2.5-4.9); Potassium 3.3 mmol/L (3.5-5.1); Total Protein 5.6 gm/dl (6.0-8.3)
[2022-05-06 05:19] LABS: RBC Morphology Unremarkable
[2022-05-06] MEDS ORDERED: MAGNESIUM SULFATE / D5W 1 GM/100 ML BAG IV ONE (07:42)
--- NOTE | 2022-05-06 07:44 | Hospitalist Progress Note ---
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 Decreased to 200 mg p.o. fluconazole daily -egd did suggest gastritis and shallow ulcers 04/29, Id recommends change to Cressemba, it is non formulary here Discussed with neurology. Initially held heparin and was anticipating lumbar puncture. Given patient's clinical stability, and that her symptoms improved and she is otherwise well on reassessment recommended deferring lumbar puncture at this time. Heparin resumed. will convert to lovenox Intention to bridge back to warfarin Fluconazole has already been decreased, will explore the Cressemba option, family wants to demarco (2) Pulmonary emboli: Plan: - Recent04/19initiated on Xarelto - subsequent presentation with GI bleed; underwent EGD, results above; then initiated on heparin, - Vascular surgery input noted and appreciatedno filter at present, see note for details Did discuss with coagulation clinic. Given rebleed considered switch to Eliquis to minimize bleeding risk, however switch to Eliquis BID unlikely to significantly lower bleeding risk. Heparin resumed, warfarin started. (3) DVT (deep venous thrombosis): Plan: Identified on venous Doppler 04/19/2022 Xarelto on hold due to hematemesis, switched to warfarin as noted above (4) Hypokalemia: Plan: continue to replete and magnesium (5) Hypomagnesemia: Plan: replete (6) Diabetes: Plan: Continue NovoLog sliding scale (7) Cirrhosis of liver: Plan: Nonalcoholic cirrhosis GI consulted and following (8) Depression: Plan: Medications include mirtazapine 30 mg p.o. at bedtime as well as venlafaxine 300 mg p.o. at bedtime Continue home medications while inpatient (9) Hypertension: Plan: Metoprolol resumed (10) Acute GI bleeding: Plan: Hematemesis Nasogastric tube removed with the EGD Gastroenterology is consulted. EGD with shallow ulcers in the stomach with gastritis. Biopsies taken and pathology results are pending. Continue PPI Advance diet as tolerated (11) DVT prophylaxis: Plan: On heparin/warfarin as noted (12) Atrial fibrillation: Plan: Continue metoprolol succinate Follow on telemetry Anticoagulated with Xarelto at home. Converted to heparin/warfarin as noted (13) Acute metabolic encephalopathy: Admission and Anticipated Discharge Date Admission Date: April 27, 2022 Subjective pt is doing well did have discussion about alternative antifungal, Cressemba, but today is without much symptoms, pt wants to demarco on changing to see if nausea continues to improve as we treat gastritis Review of Systems Review of Systems: Mild distress and fatigue, some memory loss no headache, no visual changes no speech or swallowing issues no chest pain, pressure or palpitations no shortness of breath, cough or wheezes no abdominal pain, did have some mild nausea but no vomiting, no diarrhea no dysuria, hematuria or frequency no focal joint pain or swelling no back pain, CVA tenderness or radicular pain no bruising, bleeding or rashes no focal signs of weakness or numbness or altered sensation no complaints of anxiety or depression.. Physical Exam Physical Exam: The patient appeared well nourished and normally developed. Vital signs as documented. Head exam is normocephalic atraumatic Neck is without JVD, thyromegaly, or carotid bruits. Lungs are clear to auscultation, no focal loss of breath sounds Cardiac exam, Rhythm is regular.. No murmurs, rubs or gallops. Abdominal exam reveals normal bowel sounds, soft non tender, no masses Extremities are nonedematous and both pedal pulses are present Neurologic exam is alert and oriented, no focal loss of strength or sensation Skin is without bruises or rashes Psychologically is without concerns for anxiety or depression.. Results & Data Results & Data ([facility]) Vital Signs (Past 12 Hours) Vital Signs Temp Pulse Pulse Resp BP Pulse Ox O2 Del Method 05/06/22 04:34 91 H 05/05/22 23:46 98.2 F 82 17 131/75 94 Room Air 05/05/22 21:54 74 PG Care Time/CCT Total # of Minutes Spent Total Time Spent with Patient: Total time spent is greater than 50% in coordination of care (as documented) at patient's floor/unit and/or counseling patient: Coding Level of Care Code 96567 Subseq Hosp Care Lvl 2 Diagnoses Cryptococcal meningitis B45.1 Pulmonary emboli I26.99 Acute cor pulmonale presence: without acute cor pulmonale Chronicity: acute Pulmonary embolism type: unspecified DVT (deep venous thrombosis) I82.452 Affected thrombotic vein of extremity: peroneal Chronicity: acute DVT location: lower extremity Laterality: left Hypokalemia E87.6 Hypomagnesemia E83.42 Diabetes E11.9 Cirrhosis of liver K74.60 Depression F32.9 Depression Type: unspecified Hypertension I10 Hypertension type: essential hypertension Acute GI bleeding K92.2 DVT prophylaxis Z29.9 Atrial fibrillation I48.91 Acute metabolic encephalopathy G93.41 (1) DVT (deep venous thrombosis) Affected thrombotic vein of extremity: peroneal Chronicity: acute DVT location: lower extremity Laterality: left Qualified Code(s): I82.452 - Acute embolism and thrombosis of left peroneal vein (2) Depression Depression Type: unspecified Qualified Code(s): F32.9 - Major depressive disorder, single episode, unspecified (3) Pulmonary emboli Acute cor pulmonale presence: without acute cor pulmonale Chronicity: acute Pulmonary embolism type: unspecified Qualified Code(s): I26.99 - Other pulmonary embolism without acute cor pulmonale (4) Hypertension Hypertension type: essential hypertension Qualified Code(s): I10 - Essential (primary) hypertension
[2022-05-06] MEDS: FLUCONAZOLE 100 MG TAB PO SCH (07:58)
[2022-05-06] MEDS: MAGNESIUM OXIDE 400 MG TAB PO SCH (07:58)
[2022-05-06] MEDS: ENOXAPARIN 80 MG/0.8 ML SYR SQ SCH ×2 (07:58→20:12)
[2022-05-06] MEDS: MULTIVITAMIN TAB PO SCH (07:59)
[2022-05-06] MEDS: METOPROLOL SUCC 25MG EXT REL TAB PO SCH (07:59)
[2022-05-06] MEDS ORDERED: POTASSIUM CHLORIDE 10 MEQ / 100ML WTR IV STA (07:59)
[2022-05-06] MEDS: INSULIN ASPART PER UNIT SC SCH ×4 (08:04→20:35)
[2022-05-06] MEDS ORDERED: POTASSIUM CHLORIDE CRTAB 20 MEQ TABCR PO SCH (09:00)
[2022-05-06] MEDS: PANTOprazole 40 MG TAB PO SCH ×2 (09:24→20:14)
[2022-05-06] MEDS: POTASSIUM CHLORIDE / WTR 10 MEQ/100 ML PLCT IV SCH ×3 (09:24→11:33)
--- NOTE | 2022-05-06 12:22 | Pharmacy Report ---
Pharmacy Glycemic Short Note 2 - Date of Service May 06, 2022 - Glycemic Short BSG Results (Last 24 hours): 05/05/22 05/05/22 05/06/22 16:21 20:13 04:15 POC Glucose 88 164 H Fasting Glucose 90 05/06/22 05/06/22 07:04 11:15 POC Glucose 96 201 H Fasting Glucose OUTPATIENT ANTIDIABETIC REGIMEN: * Toujeo 68 units SC HS * Novolog SSI * HbA1c = 7.9% (04/20/22) ASSESSMENT: 05/06: * BSGs 40-608-42-201mg/dL. Fasting slightly below goal. Received 25 units of basal and 2 units of bolus insulin yesterday. * Pt with minimal documented intake the last 24 hours, no breakfast again this AM, however she did eat lunch. Given this, adjust Novolog parameters to previous (08/01) and will continue with decreased dose Lantus tonight. Monitor trend. 05/05: * Patient remains well controlled today. However fasting BSG and lunchtime BSG are downtrending somewhat. Will empirically decrease lantus dose and loosen novolog to prevent a low. Patient only ate dinner yesterday and has not eaten breakfast or lunch again today which may be contributing to the downtrend somewhat. 05/04: * Patient well controlled over the past 48 hours with BSGs ranging from 102-170 mg/dL. Fasting this morning was 134 mg/dL. Will continue with current Lantus and novolog scale. Patient is ordered a diet. 05/02: * Sudha received a total of 69 units of insulin yesterday (30 units basal + 30 units bolus). BSGs were elevated: 684-506-666-110 mg/dL. * Fasting BSG improved but remains elevated this AM at 177 mg/dL. Will continue with current basal dose which was just increased yesterday. Attempting to transition basal to HS to match how patient takes it at home. Will give basal with dinner tonight followed by HS tomorrow. * Novolog was tightened yesterday. Continue with this dose. 04/30: * Patient admitted 04/27, BSGs elevated on admission and have continued in the low 200s, today 311 mg/dL at lunch * Patient on several dextrose containing infusions, NPO --> clears but not eating lunch pending neuro eval today, however patient was sipping on orange juice over extended time this morning (approximately 30 gm, that was uncovered) * Pantoprazole infusion d/c, heparin on hold a current * Recent admissions BSGs well controlled with lantus 20 units and Novolog parameters 25/5. Will give 20 units of lantus now- patient currently NPO but has missed several days of basal insulin so suspect more basal deficiency at this point. * Will give one time looser correction now after speaking with RN and recent dextrose containing drip stopping and then go to previously used parameters PLAN FOR INPATIENT GLYCEMIC CONTROL: * Basal insulin * Lantus 25 units SC PM * Bolus insulin * NovoLog per scale ACHS or Q6hrs while NPO * Goal Range: Low 110 mg/dL - High 140 mg/dL * Correction Factor: 15 mg/dL/unit * Nutritional / Prandial insulin per carb ratio of 1 unit per 4 grams CHO consumed
[2022-05-06] MEDS: WARFARIN SOD 2.5 MG TAB PO SCH (17:27)
[2022-05-06] MEDS: MIRTAZAPINE TAB 15 MG TAB PO SCH (20:14)
[2022-05-06] MEDS: VENLAFAXINE HCL XR 150 MG CAPXR PO SCH (20:14)
[2022-05-06] MEDS: LANTUS PER UNIT CHARGE SC SCH (20:36)
[2022-05-07] MEDS: METOPROLOL SUCC 25MG EXT REL TAB PO SCH (08:41)
[2022-05-07] MEDS: FLUCONAZOLE 100 MG TAB PO SCH (08:41)
[2022-05-07] MEDS: MAGNESIUM OXIDE 400 MG TAB PO SCH (08:41)
[2022-05-07] MEDS: ENOXAPARIN 80 MG/0.8 ML SYR SQ SCH (08:42)
[2022-05-07] MEDS: PANTOprazole 40 MG TAB PO SCH (08:42)
[2022-05-07] MEDS: MULTIVITAMIN TAB PO SCH (08:42)
[2022-05-07] MEDS: INSULIN ASPART PER UNIT SC SCH ×2 (08:46→12:51)
[2022-05-07 11:33] LABS: INR 1.9 (0.9-1.1); Prothrombin Time 19.5 Seconds (9.0-12.0)
[2022-05-07 11:45] LABS: Basophils # (auto) 0.06 K/uL (0-0.2); Basophils % (auto) 0.9 %; Eosinophils # (auto) 0.24 K/uL (0-0.50); Eosinophils % (auto) 3.5 %; Hematocrit (blood only) 26.1 % (34.1-44.9); Hemoglobin 8.3 g/dl (12.0-16.0); Immature Granulocytes # (auto) 0.02 K/uL (0.00-0.02); Immature Granulocytes % (auto) 0.3 %; Lymphocytes # (auto) 2.15 K/uL (1.2-3.4); Lymphocytes % (auto) 31.3 %; Mean Corpuscular Hemoglobin 26.9 pg (25.0-34.0); Mean Corpuscular Hgb Conc 31.8 g/dL (32.0-36.0); Mean Corpuscular Volume 84.7 fL (80.0-100.0); Mean Platelet Volume 10.8 fL (9.4-12.3); Monocytes # (auto) 0.58 K/uL (0.24-0.82); Monocytes % (auto) 8.4 %; Neutrophils # (auto) 3.82 K/uL (1.4-6.5); Neutrophils % (auto) 55.6 %; Platelet Count 186 K/uL (130-400); RDW Coefficient of Variation 16.3 % (11.5-14.5); Red Blood Count 3.08 M/uL (3.93-5.22); White Blood Count 6.87 K/ul (4.8-10.8)
[2022-05-07 11:51] LABS: Albumin Globulin Ratio 0.8 (0.9-2); Albumin Level 2.9 gm/dl (3.4-5.0); Bilirubin,Total 0.5 mg/dl (0.2-1.0); Calcium 8.6 mg/dl (8.5-10.1); Creatinine Clr Calc Pharmacy 51.4 ml/min; Est GFR (African American) 62.6 ml/min; Globulin 3.5 gm/dl (2.5-4.0); Magnesium 1.6 mg/dl (1.7-2.4); Phosphorus 3.7 mg/dl (2.5-4.9); Potassium 3.5 mmol/L (3.5-5.1); Total Protein 6.4 gm/dl (6.0-8.3)
--- NOTE | 2022-05-07 13:53 | Pharmacy Report ---
Pharmacy Glycemic Short Note 2 - Date of Service May 07, 2022 - Glycemic Short BSG Results (Last 24 hours): 05/06/22 05/06/22 05/07/22 16:06 20:30 07:30 POC Glucose 153 H 131 H 86 Fasting Glucose 05/07/22 05/07/22 10:48 11:26 POC Glucose 94 Fasting Glucose 99 OUTPATIENT ANTIDIABETIC REGIMEN: * Toujeo 68 units SC HS * Novolog SSI * HbA1c = 7.9% (04/20/22) ASSESSMENT: 05/07: * BSGs 213-613-89-94 mg/dL. Fasting BSG continues to downtrend. Patient received 25 units of basal and 25 units of bolus insulin yesterday. * Intake documented since lunch yesterday; other stressors stable. * Given BSGs continue to trend downward, will decrease tonight's Lantus dose to 20 units, and loosen Novolog parameters 05/06: * BSGs 19-988-35-201mg/dL. Fasting slightly below goal. Received 25 units of bas al and 2 units of bolus insulin yesterday. * Pt with minimal documented intake the last 24 hours, no breakfast again this AM, however she did eat lunch. Given this, adjust Novolog parameters to previous (08/01) and will continue with decreased dose Lantus tonight. Monitor trend. 05/05: * Patient remains well controlled today. However fasting BSG and lunchtime BSG are downtrending somewhat. Will empirically decrease lantus dose and loosen novolog to prevent a low. Patient only ate dinner yesterday and has not eaten breakfast or lunch again today which may be contributing to the downtrend somewhat. 05/04: * Patient well controlled over the past 48 hours with BSGs ranging from 102-170 mg/dL. Fasting this morning was 134 mg/dL. Will continue with current Lantus and novolog scale. Patient is ordered a diet. 05/02: * Sudha received a total of 69 units of insulin yesterday (30 units basal + 30 units bolus). BSGs were elevated: [id number] mg/dL. * Fasting BSG improved but remains elevated this AM at 177 mg/dL. Will continue with current basal dose which was just increased yesterday. Attempting to transition basal to HS to match how patient takes it at home. Will give basal with dinner tonight followed by HS tomorrow. * Novolog was tightened yesterday. Continue with this dose. 04/30: * Patient admitted 04/27, BSGs elevated on admission and have continued in the low 200s, today 311 mg/dL at lunch * Patient on several dextrose containing infusions, NPO --> clears but not eating lunch pending neuro eval today, however patient was sipping on orange juice over extended time this morning (approximately 30 gm, that was uncovered) * Pantoprazole infusion d/c, heparin on hold a current * Recent admissions BSGs well controlled with lantus 20 units and Novolog parameters 17/02. Will give 20 units of lantus now- patient currently NPO but has missed several days of basal insulin so suspect more basal deficiency at this point. * Will give one time looser correction now after speaking with RN and recent dextrose containing drip stopping and then go to previously used parameters PLAN FOR INPATIENT GLYCEMIC CONTROL: * Basal insulin * Lantus 20 units SC PM * Bolus insulin * NovoLog per scale ACHS or Q6hrs while NPO * Goal Range: Low 110 mg/dL - High 140 mg/dL * Correction Factor: 20 mg/dL/unit * Nutritional / Prandial insulin per carb ratio of 1 unit per 5 grams CHO consumed
[2022-05-07] MEDS: WARFARIN SOD 2.5 MG TAB PO SCH (16:22)
--- NOTE | 2022-05-07 19:33 | Discharge Summary ---
Date of Service May 07, 2022 Principal Diagnosis acute blood loss anemia due to gastric ulcers cryptococcal meningitis metabolic encephalopathy resolved need for anticoagulation for pe Discharge Exam The patient appeared stable Vital signs as documented. Lungs are clear to auscultation and appear unlabored Cardiac exam, Rhythm is regular.. No murmurs, rubs or gallops. Abdominal exam reveals normal bowel sounds, soft non tender, no masses Extremities are nonedematous and both pedal pulses are normal. Neurologic exam is alert and oriented, no focal loss of strength or sensation Skin is without bruises or rashes Psychologically is without concerns for anxiety or depression. Discharge Data Allergies Allergy/AdvReac Type Severity Reaction Status Date / Time Penicillins Allergy Intermediate Hives Verified 04/27/22 21:30 atorvastatin Allergy Unknown CAN'T Verified 04/27/22 21:30 REMEMBER gemfibrozil [From Lopid] Allergy Unknown CAN'T Verified 04/27/22 21:30 REMEMBER acetaminophen [From Tylenol] AdvReac Severe CAN NOT Verified 04/27/22 21:30 TAKE D/T LIVER ISSUES ibuprofen AdvReac Severe liver Verified 04/27/22 21:30 issues rosuvastatin AdvReac Intermediate Muscle Pain Verified 04/27/22 21:30 Consultations 04/27/22 21:53 ED Decision to Admit Stat 04/28/22 01:29 Consult Neurology Routine 04/28/22 11:08 Consult Gastroenterology Routine 04/29/22 14:41 Consult Vascular Surgery Routine Procedures Performed Operation Date: 04/29/22 17:45 Actual Procedures p EGD Biopsy Cytology - Krishna Gonsalez MD Ordered Studies 04/27/22 20:12 CT head/brain wo con Stat 04/28/22 00:14 US venous doppler 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 Decreased to 200 mg p.o. fluconazole daily -egd did suggest gastritis and shallow ulcers 04/29, Id recommends change to Cressemba, it is non formulary here Discussed with neurology. Initially held heparin and was anticipating lumbar puncture. Given patient's clinical stability, and that her symptoms improved and she is otherwise well on reassessment recommended deferring lumbar puncture at this time.out pt warfarin with enrollment in coumadin clinic Fluconazole has already been decreased, will explore the Cressemba option, patient wants to wait on starting the Cresemba due to its cost and the fact that she is improved on oral fluconazole and that her whole initial hospitalization could be from her gastric ulcers. We will discharge her on the Clinisol with recommendations to consider the Cressemba if she does not tolerate the fluconazole long-term (2) Pulmonary emboli: - Recent04/19initiated on Xarelto - subsequent presentation with GI bleed; underwent EGD, results above; then initiated on heparin, - Vascular surgery input noted and appreciatedno filter at present, see note for details Did discuss with coagulation clinic. Given rebleed considered switch to Eliquis to minimize bleeding risk, however switch to Eliquis BID unlikely to significantly lower bleeding risk. Heparin resumed, warfarin started. Discharged on warfarin 2.5 mg a day with an INR of 1.9 on day of discharge (3) DVT (deep venous thrombosis): Identified on venous Doppler 04/19/2022 Xarelto on hold due to hematemesis, switched to warfarin as noted above (4) Hypokalemia: replete (5) Hypomagnesemia: replete (6) Diabetes: Continue NovoLog sliding scale (7) Cirrhosis of liver: Nonalcoholic cirrhosis GI consulted and as outpatient (8) Depression: Medications include mirtazapine 30 mg p.o. at bedtime as well as venlafaxine 300 mg p.o. at bedtime Continue home medications while inpatient (9) Hypertension: Metoprolol resumed (10) Acute GI bleeding: Hematemesis Gastroenterology is consulted. EGD with shallow ulcers in the stomach with gastritis. Biopsies taken and pathology results are pending at time of discharge. Continue PPI tonics twice daily for 6 weeks Tolerate advanced diet (11) DVT prophylaxis: warfarin as noted (12) Atrial fibrillation: Continue metoprolol succinate Follow on telemetry Anticoagulated with Xarelto at home. Converted to warfarin as noted (13) Acute metabolic encephalopathy: Total Time Total Time Spent Total Time Spent (In Minutes): It required greater than 30 minutes to prepare this patient for discharge Discharge Plan Discharge Items Patient Disposition: Home - Home Health Services Reason For Visit: AMS, HEMATEMESIS, MENINGITIS Discharge Diagnosis: hematemisis gastric ulcers h/o cryptococcal meningitis no treatment Activity: Per Instructions section Activity Comment: slowly increase activity Non-emergency contact: Primary Care Provider and Specialist Call non-emergency contact if: you have any medication questions and your symptoms worsen Follow-up/Referrals: Natalia Portillo CRNP [Nurse Practitioner] - 05/11/22 8:30 am (Primary Care, Hospital follow up ) Diet: Regular Ambulatory Orders: Prothrombin Time INR (Routine) Timeframe: 3 Days Location: Determined by Patient Ordered By: Alfredito Dunlap Attending Provider Instructions: For the ulcers in your stomach take the protonix twice a day shakeel a daily magnesium supplement continue the fluconazole as recommended if you have recurrence of your nausea and vomiting, we may consider a change the Cressemba the medication mentioned by Dr [facility] from [facility] Infectious disease you have been put on a new blood thinner coumadin or warfarin, please have you blood work checked next week early and will have your information sent to coumadin clinic Dr Richards Please do not take your aspirin for one week then you may restart it Medication Instructions: * Warfarin is a medicine prescribed to prevent blood clots * Warfarin will thin your blood and help prevent new clots * Take your medications exactly as directed * Never skip a dose. Never take a double dose. If you miss a dose, take it as soon as you remember * It is important for your doctor to monitor your prothrombin time (PT). This is a lab test * Keep your appointment for lab tests Risk of Adverse Drug Reactions and Interactions: * Warfarin increases your risk of bleeding * The food you eat and other medications you take can affect how Warfarin works in your body * Ask your doctor about daily aspirin therapy * It is very important to talk with your doctor about all of the other medicines, antibiotics, vitamins or herbal products that you are taking * All of your medication must be approved by your doctor, including new medicines, as well as medicines you have taken before you started taking Warfarin Diet: * In order for Warfarin to work properly, it is important to keep your intake of Vitamin K as consistent as possible * You should avoid any sudden change in Vitamin K intake * Report any significant changes in your diet or weight to your doctor Call your Primary Care doctor if you experience any of the following: * Swelling or Pain in your leg * Sudden, continuous pain deep in a muscle * Pain that worsens when you are active or when you stand still for a long time * Chest Pain * Sudden Shortness of Breath * Rapid or pounding heart beat * Fainting * Dizziness * Cough with blood or bloody sputum * Sweating more than normal * Bruises * Heavy or uncontrolled bleeding * Blood in your urine, stool or vomit * Black or tarry stools Caring for Your Self at Home: * Avoid sitting, standing or lying down for long periods without moving your legs and feet * When traveling by car, stop to get out and move around at least once every 3 hours * On long airplane, train or bus rides, get up and move around when possible * If you can't get up, wiggle your toes and tighten your calves to keep your blood moving Follow Up: It is important for you to keep your follow up appointments with your medical provider. Pending Studies at Discharge: No Stand-Alone Forms: My [facility], Smoking Cessation Medications and DC Order Prescriptions: New warfarin [Jantoven] 2.5 mg Tablet 2.5 mg PO DAILY@1600 Qty: 30 0RF magnesium oxide 400 mg (241.3 mg magnesium) Tablet 400 mg PO QAM Qty: 30 0RF pantoprazole 40 mg Tablet,Delayed Release (Dr/Ec) 40 mg PO BID Qty: 60 3RF Continued (DME) Contour Next Test Strips Strip See Rx Instructions .ROUTE .MEDSUPPLY Qty: 300 11RF Rx Instructions: Test blood sugars 6 times a day mirtazapine 30 mg tablet 30 mg PO HS Qty: 90 3RF venlafaxine [Effexor XR] 150 mg capsule,extended release 24hr 300 mg PO HS Qty: 180 3RF (DME) Ketostix Strip See Rx Instructions miscellaneous .MEDSUPPLY Qty: 50 6RF Rx Instructions: Check when blood sugars are high metoprolol succinate 25 mg tablet extended release 24 hr 25 mg PO QAM Qty: 90 3RF (DME) Dexcom G6 Sensor Device See Rx Instructions .ROUTE .MEDSUPPLY Qty: 3 Rx Instructions: As directed (DME) Dexcom G6 Transmitter Device See Rx Instructions .ROUTE .MEDSUPPLY Qty: 1 Rx Instructions: As directed (DME) pen needle, diabetic [BD Ultra-Fine Jody Pen Needle] 32 gauge x 5/32" needle See Rx Instructions miscellaneous .MEDSUPPLY Qty: 120 5RF Rx Instructions: Inject up to 4x a day multivitamin tablet 1 tab PO QAM aspirin 81 mg Tablet,Delayed Release (Dr/Ec) 81 mg PO HS fluconazole 100 mg Tablet 200 mg PO QAM Qty: 30 0RF insulin aspart U-100 100 unit/mL (3 mL) insulin pen 0 unit SUBCUT TIDM Rx Instructions: Per sliding scale Toujeo SoloStar U-300 Insulin 300 unit/mL (1.5 mL) insulin pen 68 unit SUBCUT QPM Discontinued Xarelto 15 mg Tablet 15 mg PO BIDM Qty: 40 0RF Rx Instructions: STARTED 04/23/22----this is start RX followed by the 20 mg a day Discharge Orders: Discharge Order (Routine); Ordered 05/07/22 Ordered By: Alfredito Torres Admission Data Admit Date/Time: 04/27/22 23:58 Attending Provider: Alfredito Torres Admit Provider: Leonel Renee Primary Care Provider: Brendon Farfan Other Providers: Garett Stevens ; Delbert Dailey ; Hunter Magaña ; Nicolas Salas ; Antoni Rosales ; Irvin Landry ; [facility] Coding Level of Care Code D/C DAY MANAGEMENT >30 MINS Diagnoses Cryptococcal meningitis B45.1 Pulmonary emboli I26.99 Acute cor pulmonale presence: without acute cor pulmonale Chronicity: acute Pulmonary embolism type: unspecified DVT (deep venous thrombosis) I82.452 Affected thrombotic vein of extremity: peroneal Chronicity: acute DVT location: lower extremity Laterality: left Hypokalemia E87.6 Hypomagnesemia E83.42 Diabetes E11.9 Cirrhosis of liver K74.60 Depression F32.9 Depression Type: unspecified Hypertension I10 Hypertension type: essential hypertension Acute GI bleeding K92.2 DVT prophylaxis Z29.9 Atrial fibrillation I48.91 Acute metabolic encephalopathy G93.41
[2022-05-07] MEDS ORDERED: LANTUS PER UNIT CHARGE SC SCH (21:00)
== END 2022-05-07 16:56 | disposition home health service (06) | DRG 377 ==
LOC: ED 19:35 → EDINP 23:58 → SUATTDRO 23:58 → 2E 04-28 21:43

== ENCOUNTER 2022-06-13 19:40 | Inpatient (IN) ==
[2022-06-13 21:31] LABS: Appearance Urine Clear (Clear); Bacteria Urine Automated Negative (Negative); Bilirubin Urine Negative (Negative); Blood Urine 3+ (Negative); Color Urine Yellow; Epithelial Cell Urine Auto 20-30 /lpf (0-5); Glucose Urine UA 2+ (Negative); Ketones Urine Negative (Negative); Leukocyte Esterase Urine 1+ (Negative); Nitrite Urine Negative (Negative); Protein Urine Negative (Negative); RBC Urine Automated >30 /hpf (0-4); Specific Gravity Urine 1.015 (1.000-1.030); Urobilinogen Urine Negative (Negative); pH Urine 6.5 (4.5-7.5)
[2022-06-13 21:47] LABS: Basophils # (auto) 0.06 K/uL (0-0.2); Basophils % (auto) 0.8 %; Eosinophils # (auto) 0.15 K/uL (0-0.50); Hematocrit (blood only) 25.8 % (34.1-44.9); Hemoglobin 8.2 g/dl (12.0-16.0); Immature Granulocytes # (auto) 0.04 K/uL (0.00-0.02); Immature Granulocytes % (auto) 0.5 %; Lymphocytes # (auto) 1.87 K/uL (1.2-3.4); Mean Corpuscular Hemoglobin 25.4 pg (25.0-34.0); Mean Corpuscular Hgb Conc 31.8 g/dL (32.0-36.0); Mean Corpuscular Volume 79.9 fL (80.0-100.0); Mean Platelet Volume 11.6 fL (9.4-12.3); Monocytes # (auto) 0.56 K/uL (0.24-0.82); Monocytes % (auto) 7.5 %; Neutrophils % (auto) 64.2 %; Platelet Count 226 K/uL (130-400); RDW Coefficient of Variation 16.4 % (11.5-14.5); RDW Standard Deviation 47.3 fL (36.4-46.3); Red Blood Count 3.23 M/uL (3.93-5.22); White Blood Count 7.48 K/ul (4.8-10.8)
[2022-06-13 21:56] LABS: Albumin Level 3.4 gm/dl (3.4-5.0); BUN Creatinine Ratio 16.2 (10-20); Bilirubin,Total 0.4 mg/dl (0.2-1.0); Calcium 8.7 mg/dl (8.5-10.1); Creatinine Clr Calc Pharmacy 51.4 ml/min; Est GFR (African American) 65.5 ml/min; Est GFR (Non-African American) 56.5 ml/min; Globulin 3.4 gm/dl (2.5-4.0); Potassium 3.3 mmol/L (3.5-5.1); Total Protein 6.8 gm/dl (6.0-8.3)
[2022-06-13] MEDS ORDERED: MoRPHine SULFATE 2 MG/ML CARP IV PRN (22:13)
[2022-06-13] MEDS ORDERED: ONDANSETRON INJ 2 MG/ML 2 ML VIAL IV STA (22:14)
[2022-06-13] MEDS: SODIUM CHLORIDE 0.9% 1000ML 1,000 ML IV SCH (22:22)
--- NOTE | 2022-06-13 23:08 | History & Physical Report ---
Date of Service June 13, 2022 Assessment & Plan (1) Hydronephrosis due to obstruction of ureter: Plan: This is a 62-year-old female with a history of nephrolithiasis, cirrhosis, DVT and PE on Warfarin, prolonged QTC, type 2 diabetes, atrial fibrillation, mitral regurgitation, cryptococcal meningitis NAFLD he, IBS, dyslipidemia, hypertension who presents to [facility] for evaluation of flank pain, subsequently found to have a 6mm obstructing calculus in the L ureter causing hydronephrosis and hydroureter. Obstructing Renal Calculus (LEFT) / Hydroureter and Hydronephrosis - Presenting with approx. 24-hours of L-sided abdominal/flank pain in the context of previous renal calculi - CT-A/P: "Left hydronephrosis/hydroureter with obstructive stone in the mid to distal ureter measuring 6 mm" - Continue mIVF @ 150cc/hr x 2L - Initiate Flomax 0.6mg - Strain all urine - Dilaudid for pain q4h -- avoiding hepatotoxic medications with history of cirrhosis - Consult urology: appreciate insight on need for ESWL vs. stenting vs. monitoring - ABX: Will give single dose of cefepime tonight given obstruction ongoing >24h - can consider scheduling pending urologic evaluation (2) Depression: Plan: Depression - Continue mirtazapine and venlafaxine (3) Cirrhosis of liver: Plan: Nonalcoholic Cirrhosis - Mild transaminitis on admission, INR supratherapeutic in setting of Warfarin therapy - Visualized on CT-A/P with trace ascites - Avoid hepatotoxic medications - Unclear if patient follows with hepatology or GI as outpatient -- recommend establishing for monitoring, prophylaxis (4) Diabetes mellitus type 2, uncontrolled, without complications: Plan: T2DM - A1c at 8.2% in 04/2022 during last admission - Hold home medications (Toujeo) and SSI - Initiate Lantus 65U qPM and SSI CF of 1:30 with carb correction (5) Cryptococcal meningitis: Plan: History of Cryptococcal Meningitis - Previously hospitalized in 04/2022 for the above, now follows with [facility] as outpatient - Continue fluconazole 200mg qAM (was previously on higher dose, could not tolerate it so dose was reduced) (6) Atrial fibrillation: Plan: Atrial Fibrillation / HTN - Continue metoprolol - Hold Warfarin, as above, for supratherapeutic INR ; resume when appropriate (7) Pulmonary emboli: Plan: History of DVT and PE / Supratherapeutic INR -- goal INR 2-3 - Recent history of PE on 04/19 - unfortunately developed UGIB secondary to erosive gastritis on Xarelto, subsequently switched to Warfarin - History noted, controlled with warfarin 3mg daily per patient - Supratherapeutic on arrival, INR 4.5 - Hold home warfarin - Daily INR (8) Prolonged QT interval: Plan: Prolonged QTc Interval - Noted on numerous previous ECGs, last on 04/29/22 which was at 546 ms - Will get repeat ECG while here - Electrolyte repletion PRN - Avoid QTc-prolonging medications (9) Anemia: Plan: Microcytic Anemia - Since 02/2022, patient noted to have baseline Hgb between 8-10 - On arrival: Hgb 8.2 / MCV 79.9 -- iron studies from earlier this month borderline - Suspect component of chronic disease and lingering effect from recent GIB - Recheck ferritin/iron level in AM - may benefit from Venofer infusion while here if indicated - No reported GIB symptoms - monitor (10) Peripheral edema: Plan: Lower Extremity Swelling - Per patient, worsening since discharge in 04/2022 - wasn't much of a problem prior to that - Recently seen by PCP, initiated on Lasix 20mg daily - TTE in 03/2022: EF 55-60 with borderline cLVH, mild-mod MR, mod dilation of LA - Likely multifactorial: venous stasis, possibly elevated R heart pressures - Compression stockings - Consider sleep study as outpatient - Continue Lasix while here -- could consider another TTE while here if worsening (11) Electrolyte abnormality: Plan: - Replete K - likely hypokalemic with ongoing Lasix use - Increase home KCl to 40mEq daily - Check Mg Plan Code: FULL Dispo: MS PPX: Warfarin (on hold) Diet: NPO until evaluation by urology History of Present Illness Primary Care Provider: Brendon Farfan MD This is a 62-year-old female with a history of nephrolithiasis, cirrhosis, DVT and PE on Warfarin, prolonged QTC, type 2 diabetes, atrial fibrillation, mitral regurgitation, cryptococcal meningitis NAFLD he, IBS, dyslipidemia, hypertension who presents to [facility] for evaluation of flank pain. Patient states that approximately 1 day ago, she began developing left-sided abdominal pain that radiated around to her flank. She said that this felt like her typical kidney stone related pain. She denies any fevers, chills, sweats, nausea, vomiting. She denies any new shortness of breath or chest pain. She denies any complaints of urinary symptoms, including dysuria, urinary frequency, or urinary urgency. Medications reviewed and include aspirin 81, fluconazole 200 daily, Lasix, insulin, metoprolol succinate, mirtazapine, pantoprazole, potassium chloride, Toujeo, venlafaxine, warfarin. In the ED, she was found to be slightly hypertensive with otherwise normal vital signs. Admission labs reveal microcytic anemia 8.2 (from 8.5 yesterday), INR 4.5, BMP revealing mild hypokalemia 3.3, BUN 17/creatinine 1.05, admission glucose 297, AST 41, ALT 20, ALP 189, urinalysis 3+ blood plus leuk esterase, 10-30 WBCs, over [address] of the abdomen pelvis demonstrating: "Left hydronephrosis/hydroureter with obstructing stone in the mid to distal ureter measuring 6 mm; anterior compression fracture in T12 has minimally progressed from prior exam; cirrhosis and mild ascites". She was given normal saline, morphine, and Zofran. Allergies Allergy/AdvReac Type Severity Reaction Status Date / Time Penicillins Allergy Intermediate Hives Verified 06/10/22 13:23 atorvastatin Allergy Unknown CAN'T Verified 06/10/22 13:23 REMEMBER gemfibrozil [From Lopid] Allergy Unknown CAN'T Verified 06/10/22 13:23 REMEMBER acetaminophen [From Tylenol] AdvReac Severe CAN NOT Verified 06/10/22 13:23 TAKE D/T LIVER ISSUES ibuprofen AdvReac Severe liver Verified 06/10/22 13:23 issues rosuvastatin AdvReac Intermediate Muscle Pain Verified 06/10/22 13:23 Home Medications Medication Instructions Recorded Confirmed Type aspirin 81 mg tablet,delayed 81 mg PO HS 06/05/19 06/10/22 History release multivitamin 1 tab PO QAM 09/07/19 06/10/22 History Contour Next Test Strips (blood #300 ea 12/29/20 06/08/22 Rx sugar diagnostic) blood-glucose sensor (Dexcom G6 #3 ea 01/22/21 06/08/22 History Sensor device) blood-glucose transmitter (Dexcom #1 ea 01/22/21 06/08/22 History G6 Transmitter device) mirtazapine 30 mg tablet 30 mg PO HS #90 tabs 05/06/21 06/10/22 Rx venlafaxine 150 mg 300 mg PO HS #180 caps 07/01/21 06/10/22 Rx capsule,extended release 24 hr (Effexor XR) acetone (urine) test (Ketostix #50 ea 10/14/21 06/08/22 Rx strips) pen needle, diabetic 32 gauge x #120 ea 11/06/21 06/08/22 Rx 5/32" (BD Ultra-Fine Jody Pen Needle) insulin aspart U-100 100 unit/mL 0 unit subcut TIDM 03/01/22 06/10/22 History (3 mL) subcutaneous pen insulin glargine U-300 conc 300 68 unit subcut QPM 03/01/22 06/10/22 History unit/mL (1.5 mL) subcutaneous pen (Jeremiah SolAydenar U-300 Insulin) metoprolol succinate 25 mg 25 mg PO QAM #90 tabs 04/16/22 06/10/22 Rx tablet,extended release 24 hr fluconazole 100 mg tablet 200 mg PO QAM #30 tabs 04/22/22 06/10/22 Rx pantoprazole 40 mg tablet,delayed 40 mg PO BID #60 tabs 05/10/22 06/10/22 Rx release furosemide 20 mg tablet 20 mg PO DAILY #30 tabs 05/26/22 06/10/22 Rx warfarin 1 mg tablet 2 mg PO DAILY #100 tabs 05/27/22 06/10/22 Rx magnesium oxide 400 mg (241.3 mg 400 mg PO QAM #90 tabs 06/04/22 06/10/22 Rx magnesium) tablet potassium chloride 20 mEq 20 meq PO DAILY #30 tabs 06/05/22 06/10/22 Rx tablet,extended release Past Med/Surg History Medical History Anxiety Cirrhosis of liver FOLLOWS W/ [facility] Stable currently Depression Diabetes mellitus, type 2 IDDM Glucose fluctuates - since Covid in December 2020 On insulin pump Follows with endocrinology Dupuytren's contracture of hand Bilateral hands Dyslipidemia History of COVID-12 January 2021 > MNMNC, not hospitalized, fever, ear pain- did give infusion in ER No current issues Hypertension IBS (irritable bowel syndrome) Stable Insomnia Kidney stones FOLLOWS WITH DR FUCHS No current issues - monitoring currently Surgical History History of cystoscopy WITH STENTS AND STONE BASKETING History of lithotripsy History of tonsillectomy and adenoidectomy History of total hip arthroplasty LEFT Hx laparoscopic cholecystectomy Hx of colonoscopy Hx of surgical amputation of finger left pinky Hx of total hysterectomy GERALD WITH BSO Hx of tubal ligation Hx of wisdom tooth extraction Family History Father , age 75 Family history of diabetes mellitus Coronary heart disease Brother Family history of diabetes mellitus Mother , age 67 Family history of diabetes mellitus Heart disease Hypertension Grandfather (Paternal) Family history of diabetes mellitus Grandmother (Paternal) Family history of diabetes mellitus Denies family history of Ovarian cancer Breast cancer Colorectal cancer Social History Smoking Status: Never smoker Cigarettes Per Day: 06/2018; Number of Years Since Quit: 4; Second Hand Exposure: Yes; Hx Alcohol Use: No Hx Substance Use: No Preferred Language: Belarusian Communication Ability: Effective Visual Impairment: No Limitations Moulder Operator Required: No Beliefs That Will Affect Care: None marital status: Current Living Situation: Alone current occupational status: employed and disabled current occupation: [employer]-pt does have disability for diabetes- insurance helps How many Children do You have: 2 Feels Safe at Home: Yes Childhood Exposure to Second-Hand Smoke: No caffeine: Yes Dental Care, Regularly: No Physical Activity Frequency: Does not Exercise Seatbelt Use: always Sunscreen Use: Yes Assistive Devices: None Review of Systems Review of Systems: as per HPI Physical Exam Physical Exam: General: 62-year old female who is alert, oriented, and appears in no acute distress. HEENT: NCAT. - Eyes - Sclera are white, anicteric, and without injection. - Mouth - MMM - Neck - supple, no appreciable JVD Cardiac: Normal rate and regular rhythm; S1 and S2 present with no murmurs, rubs, or gallops. Pulmonary: Good respiratory effort with symmetric expansion of the chest. No use of accessory muscles. Lungs were clear to auscultation bilaterally with no crackles or wheezes. Abdominal: Normoactive bowel sounds. Abdomen was soft, nondistended, but mildly TTP in the LUQ extending to the L flank Extremities: Upper and lower extremities are warm and well perfused. 2+ peripheral edema in the lower extremities bilaterally Psych: Well-developed, well-nourished, appropriately dressed for occasion. Behavior is cooperative and appropriate. Affect is WNL. Insight is appropriate. Results & Data Results & Data ([facility]) Vital Signs (Past 12 Hours) Vital Signs Temp Pulse Resp BP Pulse Ox O2 Del Method 06/13/22 22:50 78 19 124/74 96 Room Air 06/13/22 19:45 36.5 C 87 16 144/75 H 99 Room Air Supervising Physician Co-Signing Physician Notes Attending addendum: I have physically seen this patient, have supervised the medical residents activities, and agree with the H&P unless as otherwise noted. Assessment and Plan: 6 mm mid/distal ureteral stone with left hydroureteronephrosis- N.p.o. Consult urology IV fluids as noted Ceftriaxone 1 g IV daily Follow urine culture and sensitivities Depression- Continue mirtazapine and venlafaxine Nonalcoholic cirrhosis/mild ascites- Follow serial laboratories Diabetes mellitus- Adjust inpatient regimen for insulin as noted Placed on Accu-Cheks before meals and at bedtime with NovoLog coverage per scale Check hemoglobin A1c Remaining orders and notations as noted Resident Activity Tracking Resident Involvement: Resident Care Provided Care Provided: Adult Hospital Medicine (1) Anemia Anemia type: other cause Other causes of anemia: acute posthemorrhagic Qualified Code(s): D62 - Acute posthemorrhagic anemia (2) Depression Depression Type: unspecified Qualified Code(s): F32.9 - Major depressive disorder, single episode, unspecified
[2022-06-13] MEDS ORDERED: LACTATED RINGER'S 1,000 ML IV SCH (23:15)
[2022-06-13 23:59] LABS: INR 4.5 (0.9-1.1); Partial Thromboplastin Ratio 1.9
[2022-06-14 00:03] LABS: Partial Thromboplastin Time 52.8 Seconds (21.0-31.0)
[2022-06-14] MEDS ORDERED: GLUCOSE 40% GEL 15 GM TUBE PO PRN (01:28)
[2022-06-14] MEDS ORDERED: CARBOHYDRATES FOR HYPOGLYCEMIA PO PRN (01:28)
[2022-06-14] MEDS ORDERED: GLUCOSE 10 TAB/TUBE PO PRN (01:28)
[2022-06-14] MEDS ORDERED: GLUCAGON FOR INJ 1 MG VIAL SQ PRN (01:28)
[2022-06-14] MEDS ORDERED: DEXTROSE 50% 50 ML SYRINGE IV PRN (01:28)
[2022-06-14] MEDS ORDERED: ONDANSETRON INJ 2 MG/ML 2 ML VIAL IV PRN (01:28)
[2022-06-14] MEDS ORDERED: HYDROmorphone INJ 0.5 MG/0.5 ML SYR IV PRN (01:28)
[2022-06-14] MEDS ORDERED: POTASSIUM CHLORIDE CRTAB 20 MEQ TABCR PO STA ×2 (01:34→08:59)
[2022-06-14] MEDS ORDERED: ONDANSETRON INJ 2 MG/ML 2 ML VIAL ONE (01:47)
[2022-06-14] MEDS ORDERED: CEFEPIME 2,000 MG in SYRINGE 0 ML IV STA (01:48)
[2022-06-14] MEDS: POTASSIUM CHLORIDE / WTR 10 MEQ/100 ML PLCT IV SCH ×2 (01:50→02:58)
--- NOTE | 2022-06-14 02:38 | Urology Consultation ---
Date of Consultation June 14, 2022 Assessment & Plan (1) Left ureteral calculus: The patient has been admitted on the hospitalist service. We recommend proceeding as follows: Continue analgesics Continue antiemetics Continue Flomax for expulsive therapy Patient has received cefepime as her urinalysis is concerning for UTI. We recommend continuing antibiotics until urine culture is available and resulted at which time her antibiotics can be further tailored based on these results Continue Flomax for expulsive therapy Continue IV fluids Would recommend making the patient n.p.o. She will be reevaluated in the morning to see if she is still symptomatic and at that she is so consideration can be given to performing a cystoscopy with potential stent placement. At the present time the patient is normotensive without tachycardia. She has no leukocytosis and is afebrile. Her renal function is normal. Therefore I do not think an emergent urologic procedure is required at this time. Will continue to follow along with additional recommendations to follow based on her clinical course as it unfolds Additional plan as directed by primary service History of Present Illness Reason for Consultation: Nephrolithiasis Attending Physician: Garett Stevens MD History of Present Illness This is a 62-year-old female who presented to the emergency department secondary to left-sided flank pain. She says that this pain has been present for several days and has not gone away so she presented the emergency department. When asked the location of her pain she says it is in her left flank with some radiation to the front of her abdomen. She denies any fevers, shakes, or chills. She denies any nausea or vomiting. In addition the patient denies any dysuria, urinary frequency, or hematuria. She does note a history of kidney stones in the past requiring cystoscopy and stent placement. Review of records show that the most recent procedure she had was in May 2019 where she went a right ureteral stent placement by Dr. Camargo. Today in the emergency department the patient had labs and imaging which I independent reviewed. CT scan of the abdomen pelvis showed the patient had a left-sided distal ureteral kidney stone resulting in left hydronephrosis. In addition the patient had a CBC were white blood cell count was normal. Her hemoglobin and hematocrit were 8.2 and 25.8. Platelet count was not within the normal range. Her INR is noted to be 4.5. Her PTT was 52.8. Chemistry profile showed sodium was 137 with a potassium of 3.3. BUN and creatinine were normal. Urinalysis showed the specimen was negative for nitrites and 1+ leukocyte Estrace. There were 10-30 white blood cells per high-power field but no bacteria. A COVID test was negative. Since arrival to the emergency department the patient has been given antibiotics in form of cefepime. A urine culture has been sent. She is also given a dose of Flomax and started on intravenous fluids. At the time of my interview patient was resting comfortably in bed and her pain was well controlled. She was in no distress Allergies Allergy/AdvReac Type Severity Reaction Status Date / Time Penicillins Allergy Intermediate Hives Verified 06/10/22 13:23 atorvastatin Allergy Unknown CAN'T Verified 06/10/22 13:23 REMEMBER gemfibrozil [From Lopid] Allergy Unknown CAN'T Verified 06/10/22 13:23 REMEMBER acetaminophen [From Tylenol] AdvReac Severe CAN NOT Verified 06/10/22 13:23 TAKE D/T LIVER ISSUES ibuprofen AdvReac Severe liver Verified 06/10/22 13:23 issues rosuvastatin AdvReac Intermediate Muscle Pain Verified 06/10/22 13:23 Home Medications Medication Instructions Recorded Confirmed Type aspirin 81 mg tablet,delayed 81 mg PO HS 06/05/19 06/10/22 History release multivitamin 1 tab PO QAM 09/07/19 06/10/22 History Contour Next Test Strips (blood #300 ea 12/29/20 06/08/22 Rx sugar diagnostic) blood-glucose sensor (Dexcom G6 #3 ea 01/22/21 06/08/22 History Sensor device) blood-glucose transmitter (Dexcom #1 ea 01/22/21 06/08/22 History G6 Transmitter device) mirtazapine 30 mg tablet 30 mg PO HS #90 tabs 05/06/21 06/10/22 Rx venlafaxine 150 mg 300 mg PO HS #180 caps 07/01/21 06/10/22 Rx capsule,extended release 24 hr (Effexor XR) acetone (urine) test (Ketostix #50 ea 10/14/21 06/08/22 Rx strips) pen needle, diabetic 32 gauge x #120 ea 11/06/21 06/08/22 Rx 5/32" (BD Ultra-Fine Jody Pen Needle) insulin aspart U-100 100 unit/mL 0 unit subcut TIDM 03/01/22 06/10/22 History (3 mL) subcutaneous pen insulin glargine U-300 conc 300 68 unit subcut QPM 03/01/22 06/10/22 History unit/mL (1.5 mL) subcutaneous pen (Toujeo SoloStar U-300 Insulin) metoprolol succinate 25 mg 25 mg PO QAM #90 tabs 04/16/22 06/10/22 Rx tablet,extended release 24 hr fluconazole 100 mg tablet 200 mg PO QAM #30 tabs 04/22/22 06/10/22 Rx pantoprazole 40 mg tablet,delayed 40 mg PO BID #60 tabs 05/10/22 06/10/22 Rx release furosemide 20 mg tablet 20 mg PO DAILY #30 tabs 05/26/22 06/10/22 Rx warfarin 1 mg tablet 2 mg PO DAILY #100 tabs 05/27/22 06/10/22 Rx magnesium oxide 400 mg (241.3 mg 400 mg PO QAM #90 tabs 06/04/22 06/10/22 Rx magnesium) tablet potassium chloride 20 mEq 20 meq PO DAILY #30 tabs 06/05/22 06/10/22 Rx tablet,extended release Patient History Medical History Anxiety Cirrhosis of liver FOLLOWS W/ [facility] Stable currently Depression Diabetes mellitus, type 2 IDDM Glucose fluctuates - since Covid in December 2020 On insulin pump Follows with endocrinology Dupuytren's contracture of hand Bilateral hands Dyslipidemia History of COVID-12 January 2021 > MNMNC, not hospitalized, fever, ear pain- did give infusion in ER No current issues Hypertension IBS (irritable bowel syndrome) Stable Insomnia Kidney stones FOLLOWS WITH DR CAMARGO No current issues - monitoring currently Surgical History History of cystoscopy WITH STENTS AND STONE BASKETING History of lithotripsy History of tonsillectomy and adenoidectomy History of total hip arthroplasty LEFT Hx laparoscopic cholecystectomy Hx of colonoscopy Hx of surgical amputation of finger left pinky Hx of total hysterectomy GERALD WITH BSO Hx of tubal ligation Hx of wisdom tooth extraction Family History Father , age 75 Family history of diabetes mellitus Coronary heart disease Brother Family history of diabetes mellitus Mother , age 67 Family history of diabetes mellitus Heart disease Hypertension Grandfather (Paternal) Family history of diabetes mellitus Grandmother (Paternal) Family history of diabetes mellitus Denies family history of Ovarian cancer Breast cancer Colorectal cancer Social History Smoking Status: Never smoker Cigarettes Per Day: 06/2018; Number of Years Since Quit: 4; Second Hand Exposure: Yes; Hx Alcohol Use: No Hx Substance Use: No Preferred Language: Italian Communication Ability: Effective Visual Impairment: No 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 Beliefs That Will Affect Care: None marital status: Current Living Situation: Alone current occupational status: employed and disabled current occupation: [employer]pt does have disability for diabetes- insurance helps How many Children do You have: 2 Feels Safe at Home: Yes Childhood Exposure to Second-Hand Smoke: No caffeine: Yes Dental Care, Regularly: No Physical Activity Frequency: Does not Exercise Seatbelt Use: always Sunscreen Use: Yes Assistive Devices: None Review of Systems Constitutional: no fever and no chills Eyes: + corrective lenses Ear, Nose, Mouth, Throat: no ear pain Respiratory: no cough Cardiovascular: no chest pain Gastrointestinal: + abdominal pain (Radiating from left flank); no nausea and no vomiting Genitourinary: as per Subjective / HPI; no dysuria and no hematuria Musculoskeletal: + back pain (Left flank) Integumentary: no rash Neurologic: no localized weakness Physical Exam Constitutional: WD/WN, vitals as above Eyes: Wears glasses ENMT: Ears: no hearing impairment and no external ear abnormality Mouth: no oropharynx abnormality Neck: trachea midline Respiratory: normal respiratory effort; no respiratory distress and no labored breathing Cardiovascular: Rate/Rhythm: regular rate and regular rhythm Gastrointestinal (Abdomen): Soft, nonrigid, nondistended. Minimal tenderness with palpation on the left side of her abdomen. No rebound tenderness or guardi ng. Musculoskeletal: No calf tenderness. There is approximately 1+ lower extremity edema noted bilaterally. Feet are warm and nonmottled Skin: no rashes Neurologic: moves all extremities Psychiatric: A+Ox3, euthymic affect Genitourinary: + CVA tenderness (Left-sided) Results & Data ([facility]) Vital Signs (Past 12 Hours) Vital Signs Temp Pulse Resp BP Pulse Ox O2 Del Method 06/13/22 23:00 75 23 132/70 97 Room Air 06/13/22 22:50 78 19 124/74 96 Room Air 06/13/22 19:45 36.5 C 87 16 144/75 H 99 Room Air PG Care Time/CCT Total # of Minutes Spent Total Time Spent with Patient: Total time spent is greater than 50% in coordination of care (as documented) at patient's floor/unit and/or counseling patient: Coding Level of Care Code 71748 Inpt Consult Level 5 Diagnoses Left ureteral calculus N20.1
--- NOTE | 2022-06-14 04:38 | Billing Data ---
Date of Service June 14, 2022 Coding Level of Care Code 42230 Initial Inpt Care Lvl 3
[2022-06-14] MEDS: SODIUM CHLORIDE 0.9% 1000ML 1,000 ML IV SCH (05:50)
[2022-06-14 05:55] LABS: Basophils # (auto) 0.05 K/uL (0-0.2); Basophils % (auto) 0.6 %; Eosinophils % (auto) 2.6 %; Hematocrit (blood only) 30.8 % (34.1-44.9); Hemoglobin 9.4 g/dl (12.0-16.0); Immature Granulocytes # (auto) 0.02 K/uL (0.00-0.02); Immature Granulocytes % (auto) 0.3 %; Lymphocytes # (auto) 2.28 K/uL (1.2-3.4); Lymphocytes % (auto) 29.5 %; Mean Corpuscular Hemoglobin 24.9 pg (25.0-34.0); Mean Corpuscular Hgb Conc 30.5 g/dL (32.0-36.0); Mean Corpuscular Volume 81.7 fL (80.0-100.0); Mean Platelet Volume 10.4 fL (9.4-12.3); Monocytes # (auto) 0.59 K/uL (0.24-0.82); Monocytes % (auto) 7.6 %; Neutrophils # (auto) 4.58 K/uL (1.4-6.5); Neutrophils % (auto) 59.4 %; Platelet Count 219 K/uL (130-400); RDW Coefficient of Variation 16.5 % (11.5-14.5); RDW Standard Deviation 48.5 fL (36.4-46.3); Red Blood Count 3.77 M/uL (3.93-5.22); White Blood Count 7.72 K/ul (4.8-10.8)
[2022-06-14 06:16] LABS: INR 4.4 (0.9-1.1); Prothrombin Time 43.4 Seconds (9.0-12.0)
[2022-06-14 06:20] LABS: Albumin Globulin Ratio 0.9 (0.9-2); Albumin Level 3.2 gm/dl (3.4-5.0); BUN Creatinine Ratio 15.6 (10-20); Bilirubin,Total 0.5 mg/dl (0.2-1.0); Calcium 8.6 mg/dl (8.5-10.1); Creatinine Clr Calc Pharmacy 56.3 ml/min; Est GFR (African American) 72.9 ml/min; Est GFR (Non-African American) 62.9 ml/min; Globulin 3.6 gm/dl (2.5-4.0); Magnesium 1.3 mg/dl (1.7-2.4); Potassium 3.4 mmol/L (3.5-5.1); Total Protein 6.8 gm/dl (6.0-8.3)
[2022-06-14 06:37] LABS: Ferritin 179.3 ng/ml (8-388)
[2022-06-14] MEDS ORDERED: NON-FORMULARY MEDICATION (Multivitamin tablet) PO SCH (09:00)
[2022-06-14] MEDS ORDERED: POTASSIUM CHLORIDE CRTAB 20 MEQ TABCR PO SCH (09:00)
[2022-06-14] MEDS: INSULIN ASPART PER UNIT SC SCH ×4 (09:38→22:00)
[2022-06-14] MEDS: METOPROLOL SUCC 25MG EXT REL TAB PO SCH (09:39)
[2022-06-14] MEDS: PANTOprazole 40 MG TAB PO SCH ×2 (09:39→22:11)
[2022-06-14] MEDS: cefTRIAXone SODIUM 2,000 MG in DEXTROSE 5% 50 ML IV SCH (09:39)
[2022-06-14] MEDS: FLUCONAZOLE 100 MG TAB PO SCH (09:40)
[2022-06-14] MEDS: MAGNESIUM OXIDE 400 MG TAB PO SCH (09:40)
[2022-06-14] MEDS: FUROSEMIDE 20 MG TAB PO SCH (09:40)
[2022-06-14] MEDS: MAGNESIUM SULFATE / D5W 1 GM/100 ML BAG IV SCH ×3 (09:40→12:36)
[2022-06-14] MEDS: MULTIVITAMIN TAB PO SCH (09:40)
--- NOTE | 2022-06-14 09:47 | Urology Progress Note ---
Date of Service June 14, 2022 Assessment & Plan (1) Left ureteral calculus: (2) Hydronephrosis: (3) Left flank pain: Plan: 62yo F admitted with intractable left flank pain secondary to a 6mm obstructing calculus in the L ureter causing hydronephrosis and hydroureter. Plan of care and imaging reviewed with Dr. Son. She is afebrile and hemodynamically stable. Labs reviewed-No leukocytosis and normal renal function. INR 4.4. Urine culture is pending, on IV ceftriaxone. We discussed acute stone management with cystoscopy and stent placement. Also discussed trial of passage with max expulsion therapy. Risks and benefits of each were discussed. Ureteral stents were discussed as well as postoperative issues and pain management. Also discussed that she would need a second procedure for stone treatment if we were to proceed with stent placement today. All questions were answered. Given she is stable from standpoint with minimal pain at present, will continue to monitor closely throughout the morning and early afternoon. We will plan to reevaluate after lunch for possible stent placement later today. Plan to keep NPO for the present time. Continue supportive care, pain management, and antibiotic therapy. Will reassess after lunch. ATTENDING NOTE: Agree with above. Patient with obstructing ureteral stone. Patient vitals are stable. Had significantly supratherapeutic INR with long-term anticoagulation. Patient has been dealing with anemic issues including iron deficiency. Hemoglobin has slightly improved likely due to diuresis while on Lasix. Was having significant edema. Patient's vitals currently stable. Labs were all reviewed. INR still 4.4. Patient's renal function is stable. No episodes of severe fever. Patient is having some occasional pain but not having severe debilitating pain. Not having considerable intractable or bothersome nausea and vomiting We will plan to monitor with supportive care and maximum expulsion therapy for possible spontaneous passage of stone. We will plan n.p.o. at midnight with plans to reevaluate in the morning to see if patient has passed stone or if still having considerable issues. Will await patient's INR and other labs to normalize to consider an elective intervention on stone. If patient is able to pass stone can be sent off for analysis. We will plan to continue with expulsion therapy and monitor. If patient becomes acutely ill or develops signs of sepsis, could consider urgent/emergent intervention. Admission and Anticipated Discharge Date Admission Date: June 13, 2022 Subjective Patient examined at bedside in the ED. Awake, resting in bed on arrival. No acute distress. Minimal pain at present. No fevers or chills. Denies nausea or vomiting. Voiding without issue. Denies hematuria or dysuria. Has been NPO other than a few sips of water with medication. Review of Systems Constitutional: as per Subjective / HPI Genitourinary: as per Subjective / HPI Physical Exam Constitutional: no acute distress Respiratory: normal respiratory effort Neurologic: awake Psychiatric: A+Ox3, euthymic affect Results & Data ([facility]) Vital Signs (Past 12 Hours) Vital Signs Pulse Resp BP Pulse Ox O2 Del Method 06/14/22 05:00 79 14 146/83 H 90 Room Air 06/14/22 04:00 85 16 153/89 H 90 Room Air 06/14/22 03:00 81 12 133/82 90 Room Air 06/14/22 02:00 79 17 140/87 90 Room Air 06/14/22 01:00 91 H 20 143/84 H 93 Room Air 06/14/22 00:00 78 17 148/79 H 95 Room Air 06/13/22 23:00 75 23 132/70 97 Room Air 06/13/22 22:50 78 19 124/74 96 Room Air PG Care Time/CCT Total # of Minutes Spent Total Time Spent with Patient: Total time spent is greater than 50% in coordination of care (as documented) at patient's floor/unit and/or counseling patient: Coding Level of Care Code None Diagnoses Left ureteral calculus N20.1 Hydronephrosis N13.39 Hydronephrosis type: other Left flank pain R10.9 (1) Hydronephrosis Hydronephrosis type: other Qualified Code(s): N13.39 - Other hydronephrosis
--- NOTE | 2022-06-14 12:46 | Hospitalist Progress Note ---
Date of Service June 14, 2022 Assessment & Plan (1) Hydronephrosis due to obstruction of ureter: Plan: This is a 62-year-old female with a history of nephrolithiasis, cirrhosis, DVT and PE on Warfarin, prolonged QTC, type 2 diabetes, atrial fibrillation, mitral regurgitation, cryptococcal meningitis NAFLD he, IBS, dyslipidemia, hypertension who presents to [facility] for evaluation of flank pain, subsequently found to have a 6mm obstructing calculus in the L ureter causing hydronephrosis and hydroureter. Obstructing Renal Calculus (LEFT) / Hydroureter and Hydronephrosis - Presenting with approx. 24-hours of L-sided abdominal/flank pain in the context of previous renal calculi - CT-A/P: "Left hydronephrosis/hydroureter with obstructive stone in the mid to distal ureter measuring 6 mm" - Continue mIVF @ 150cc/hr x 2L - Initiated Flomax 0.6mg - Strain all urine - Dilaudid for pain q4h -- avoiding hepatotoxic medications with history of cirrhosis - Consult urology: appreciate insight on need for ESWL vs. stenting vs. monitoring - Given a single dose of Cefepime overnight, will start on Ceftriaxone 2g IV daily - Maintain NPO status until determined by urology if she will undergo cystoscopy this afternoon, appreciate assistance (2) Depression: Plan: - Continue mirtazapine and venlafaxine (3) Cirrhosis of liver: Plan: Nonalcoholic Cirrhosis - Mild transaminitis on admission, INR supratherapeutic in setting of Warfarin therapy - Visualized on CT-A/P with trace ascites - Avoid hepatotoxic medications - Unclear if patient follows with hepatology or GI as outpatient -- recommend establishing for monitoring, prophylaxis (4) Diabetes mellitus type 2, uncontrolled, without complications: Plan: - A1c at 8.2% in 04/2022 during last admission - Hold home medications (Toujeo) and SSI - Initiate Lantus 65U qPM and SSI CF of 1:30 with carb correction (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 in 04/2022 for the above, now follows with [facility] as [facility] - Continue fluconazole 200mg qAM (was previously on higher dose, could not tolerate it so dose was reduced) (6) Atrial fibrillation: Plan: - Continue metoprolol - Hold Warfarin, as above, for supratherapeutic INR ; resume when appropriate (7) Pulmonary emboli: Plan: History of DVT and PE / Supratherapeutic INR -- goal INR 2-3 - Recent history of PE on 04/19 - unfortunately developed UGIB secondary to erosive gastritis on Xarelto, subsequently switched to Warfarin - History noted, controlled with warfarin 3mg daily per patient - Supratherapeutic on arrival, INR 4.5 - Hold home warfarin and resume when INR <3 - Daily INR (8) Prolonged QT interval: Plan: - Noted on numerous previous ECGs, last on 04/29/22 which was at 546 ms - Will get repeat ECG while here - Electrolyte repletion PRN - Avoid QTc-prolonging medications (9) Anemia: Plan: Microcytic Anemia - Since 02/2022, patient noted to have baseline Hgb between 8-10 - On arrival: Hgb 8.2 / MCV 79.9 -- iron studies from earlier this month borderline - Suspect component of chronic disease and lingering effect from recent GIB - Recheck ferritin/iron level in AM - may benefit from Venofer infusion while here if indicated - No reported GIB symptoms - monitor (10) Peripheral edema: Plan: - Per patient, worsening since discharge in 04/2022 - wasn't much of a problem prior to that - Recently seen by PCP, initiated on Lasix 20mg daily - TTE in 03/2022: EF 55-60 with borderline cLVH, mild-mod MR, mod dilation of LA - Likely multifactorial: venous stasis, possibly elevated R heart pressures - Compression stockings - Consider sleep study as outpatient - Continue Lasix while here -- could consider another TTE while here if worsening (11) Electrolyte abnormality: Plan: - Replete K - likely hypokalemic with ongoing Lasix use - Increase home KCl to 40mEq daily - Magnesium 1.3-repleted Plan Interventions as outlined above. Plan to be d/w Dr. Rodriguez, further orders as warranted. Admission and Anticipated Discharge Date Admission Date: June 13, 2022 Subjective Patient seen on daily rounds this morning. She is resting comfortably in bed, has no complaints at present. Hospitalized with increasing pain secondary to obstructive L ureteral calculus with associated hydronephrosis. NPO this AM for possible cystoscopy and stent placement. Review of Systems Review of Systems: All systems reviewed and are unremarkable except as noted in HPI and below. L sided flank/back pain Denies fever, chills, fatigue, headache, nasal congestion, sore throat, cough, chest pain, shortness of breath, palpitations, orthopnea, PND, abdominal pain, n/v/d, constipation, dysuria, hematuria, frequency, joint pain or swelling, easy bruising or bleeding, skin lesions or rashes. Physical Exam 2 Physical Exam: GENERAL: 62 yo Well-developed, well-nourished WF. NAD. LUNGS: Clear to auscultation bilaterally. No W/R/R. CARDIOVASCULAR: Regular rate and rhythm. ABDOMEN: Soft, non-tender and non-distended. BS normoactive x 4 quad. EXTREMITIES: Trace BLE edema. Peripheral pulses +2/4. NEUROLOGIC: A&O x3. Nonfocal PSYCHIATRIC: Cooperative. Appropriate mood and affect. SKIN: Warm, dry, intact. No rashes or lesions. Results & Data Results & Data ([facility]) Vital Signs (Past 12 Hours) Vital Signs Pulse Resp BP Pulse Ox O2 Del Method 06/14/22 08:00 Room Air 06/14/22 09:01 156/78 H 06/14/22 09:01 77 20 91 06/14/22 09:00 74 14 94 06/14/22 08:00 79 20 93 06/14/22 08:00 154/83 H 06/14/22 07:00 77 25 H 92 06/14/22 07:00 136/83 06/14/22 06:00 76 13 92 06/14/22 06:00 141/84 H 06/14/22 05:00 79 14 146/83 H 90 Room Air 06/14/22 04:00 85 16 153/89 H 90 Room Air 06/14/22 03:00 81 12 133/82 90 Room Air 06/14/22 02:00 79 17 140/87 90 Room Air 06/14/22 01:00 91 H 20 143/84 H 93 Room Air Laboratory Results 06/14/22 05:35 06/14/22 05:35 Mag=1.3 PG Care Time/CCT Total # of Minutes Spent Total Time Spent with Patient: Total time spent is greater than 50% in coordination of care (as documented) at patient's floor/unit and/or counseling patient: Coding Level of Care Code 06119 Subseq Hosp Care Lvl 2 Diagnoses Hydronephrosis due to obstruction of ureter N13.2 Depression F32.9 Depression Type: unspecified Cirrhosis of liver K74.60 Diabetes mellitus type 2, uncontrolled, without complications 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
--- NOTE | 2022-06-14 13:23 | Electrocardiogram Report ---
Test Reason : Blood Pressure : / mmHG Vent. Rate : 080 BPM Atrial Rate : 080 BPM P-R Int : 114 ms QRS Dur : 098 ms QT Int : 406 ms P-R-T Axes : 029 -48 035 degrees QTc Int : 468 ms Poor data quality, interpretation may be adversely affected Normal sinus rhythm Left anterior fascicular block Nonspecific ST abnormality Abnormal ECG When compared with ECG of 29-APR-2022 05:37, Premature ventricular complexes are no longer Present Vent. rate has decreased BY 43 BPM Confirmed by Arvin Green ([id number]) on 06/14/2022 1:23:43 PM Referred By: REFERRED SELF Confirmed By:Arvin Green
--- NOTE | 2022-06-14 19:49 | Emergency Department Note ---
Impression & Plan Hydronephrosis, Left ureteral calculus ED Provider Note CHIEF COMPLAINT: Flank pain HISTORY OF PRESENT ILLNESS: This 62-year-old female patient presents to the emergency department with c/o L flank pain. Patient states she was in the emergency department last night and had a CAT scan performed that revealed evidence of a passed renal calculus. This morning the CT was over read as an obstructing 6 mm stone in the mid to distal left ureter. The patient states she received a phone call today and was told to come to the emergency department if pain was not improving. She does have a complicated past medical history including a fungal meningitis several months ago. During recovery she developed PEs and was anticoagulated. She then developed an upper GI bleed. Patient states she has been uncomfortable since leaving the emergency department and is concerned about leaving the stone in place. She does follow with Dr. Camargo of urology. Patient denies any fevers, chills, chest pain, shortness of breath or vomiting. REVIEW OF SYSTEMS: A review of systems was performed with positives and pertinent negatives listed in the history of present illness. 10 systems were reviewed and are otherwise negative. ALLERGIES: see below MEDICATIONS: see below PMH: see below SOCIAL HISTORY: see below DDx: Renal colic, UTI, appendicitis, diverticulitis, mesenteric ischemia, aortic pathology, infections, inflammatory bowel disease, PUD, biliary pathology, as well as other pathologies. PHYSICAL EXAM: Vital signs reviewed. General: Generally well-appearing 62-year-old female, in no significant distress. HEENT: No scleral icterus, PERRLA, neck supple. MMM. Cardiovascular: Regular rate and rhythm, no extra sounds. Pulmonary: Clear to auscultation bilaterally, normal work of breathing. Abdomen: Soft, left greater than right abdominal tenderness, no rebound or guarding. nondistended, positive bowel sounds. Musculoskeletal: Atraumatic, no peripheral edema. Positive left right CVA tenderness. Neurologic: Patient awake alert and oriented x 3 Skin: Warm, dry, no rash EMERGENCY DEPARTMENT COURSE/MDM: This patient was evaluated and appeared to be in no significant distress. IV access was obtained and laboratory work was drawn. Patient was hydrated with normal saline solution, given IV morphine and Zofran for her discomfort. Patient's laboratory work reveals a normal WBC and renal function. UA is significant for WBCs and blood but no nitrates or bacteria. Patient's case was discussed with the hospitalist service who will evaluate the patient for admission and further management. Patient and son are aware of plan and agreed. MONITORING: An order for cardiac monitoring was placed and the patient is noted to be in a NSR at 66 beats per minute. RADIOLOGY: see below EKG: Normal sinus rhythm at 80 bpm. Left anterior fascicular block, nonspecific ST changes, QTC is 468. No PVC, no PAC. DISPOSITION: Admit Past Med/Surg History Medical History Anxiety Cirrhosis of liver FOLLOWS W/ [facility] Stable currently Depression Diabetes mellitus, type 2 IDDM Glucose fluctuates - since Covid in December 2020 On insulin pump Follows with endocrinology Dupuytren's contracture of hand Bilateral hands Dyslipidemia History of COVID-12 January 2021 > [facility], not hospitalized, fever, ear pain- did give infusion in ER No current issues Hypertension IBS (irritable bowel syndrome) Stable Insomnia Kidney stones FOLLOWS WITH DR CAMARGO No current issues - monitoring currently Surgical History History of cystoscopy WITH STENTS AND STONE BASKETING History of lithotripsy History of tonsillectomy and adenoidectomy History of total hip arthroplasty LEFT Hx laparoscopic cholecystectomy Hx of colonoscopy Hx of surgical amputation of finger left pinky Hx of total hysterectomy GERALD WITH BSO Hx of tubal ligation Hx of wisdom tooth extraction Family History Father , age 75 Family history of diabetes mellitus Coronary heart disease Brother Family history of diabetes mellitus Mother , age 67 Family history of diabetes mellitus Heart disease Hypertension Grandfather (Paternal) Family history of diabetes mellitus Grandmother (Paternal) Family history of diabetes mellitus Denies family history of Ovarian cancer Breast cancer Colorectal cancer Social History Smoking Status: Never smoker Cigarettes Per Day: 06/2018; Number of Years Since Quit: 4; Second Hand Exposure: Yes; Hx Alcohol Use: No Hx Substance Use: No Preferred Language: French Communication Ability: Effective Visual Impairment: No 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 Beliefs That Will Affect Care: None marital status: Current Living Situation: Alone current occupational status: employed and disabled current occupation: [employer] does have disability for diabetes- insurance helps How many Children do You have: 2 Feels Safe at Home: Yes Childhood Exposure to Second-Hand Smoke: No caffeine: Yes Dental Care, Regularly: No Physical Activity Frequency: Does not Exercise Seatbelt Use: always Sunscreen Use: Yes Assistive Devices: Cane and Walker Allergies Allergies Allergy/AdvReac Type Severity Reaction Status Date / Time Penicillins Allergy Intermediate Hives Verified 06/10/22 13:23 atorvastatin Allergy Unknown CAN'T Verified 06/10/22 13:23 REMEMBER gemfibrozil [From Lopid] Allergy Unknown CAN'T Verified 06/10/22 13:23 REMEMBER acetaminophen [From Tylenol] AdvReac Severe CAN NOT Verified 06/10/22 13:23 TAKE D/T LIVER ISSUES ibuprofen AdvReac Severe liver Verified 06/10/22 13:23 issues rosuvastatin AdvReac Intermediate Muscle Pain Verified 06/10/22 13:23 Home Meds Home Medications Medication Instructions Recorded Confirmed aspirin 81 mg tablet,delayed 81 mg PO HS 06/05/19 06/10/22 release multivitamin 1 tab PO QAM 09/07/19 06/10/22 blood-glucose sensor (Dexcom G6 #3 ea 01/22/21 06/08/22 Sensor device) blood-glucose transmitter (Dexcom #1 ea 01/22/21 06/08/22 G6 Transmitter device) insulin aspart U-100 100 unit/mL 0 unit subcut TIDM 03/01/22 06/10/22 (3 mL) subcutaneous pen insulin glargine U-300 conc 300 68 unit subcut QPM 03/01/22 06/10/22 unit/mL (1.5 mL) subcutaneous pen (Toujeo SoloStar U-300 Insulin) Previous Rx's Medication Instructions Recorded Contour Next Test Strips (blood #300 ea 12/29/20 sugar diagnostic) mirtazapine 30 mg tablet 30 mg PO HS #90 tabs 05/06/21 venlafaxine 150 mg 300 mg PO HS #180 caps 07/01/21 capsule,extended release 24 hr (Effexor XR) acetone (urine) test (Ketostix #50 ea 10/14/21 strips) pen needle, diabetic 32 gauge x #120 ea 11/06/21" (BD Ultra-Fine Jody Pen Needle) metoprolol succinate 25 mg 25 mg PO QAM #90 tabs 04/16/22 tablet,extended release 24 hr fluconazole 100 mg tablet 200 mg PO QAM #30 tabs 04/22/22 pantoprazole 40 mg tablet,delayed 40 mg PO BID #60 tabs 05/10/22 release furosemide 20 mg tablet 20 mg PO DAILY #30 tabs 05/26/22 warfarin 1 mg tablet 2 mg PO DAILY #100 tabs 05/27/22 magnesium oxide 400 mg (241.3 mg 400 mg PO QAM #90 tabs 06/04/22 magnesium) tablet potassium chloride 20 mEq 20 meq PO DAILY #30 tabs 06/05/22 tablet,extended release Results & Data (ED) Vital Signs Vital Signs - 24 hr 06/13/22 22:50 06/13/22 23:00 Pulse Rate 78 75 Pulse Rate from SpO2 Sensor 77 79 Respiratory Rate 19 23 Blood Pressure 124/74 132/70 Blood Pressure Mean 90 90 Pulse Oximetry 96 97 Oxygen Delivery Method Room Air Room Air Laboratory Data Result diagrams: 06/14/22 05:35 06/14/22 05:35 Lab Results 06/13/22 06/13/22 06/13/22 Range/Units 21:05 21:05 21:10 WBC 7.48 (4.8-10.8) K/ul RBC 3.23 L (3.93-5.22) M/uL Hgb 8.2 L (12.0-16.0) g/dl Hct 25.8 L (34.1-44.9) % MCV 79.9 L (80.0-100.0) fL MCH 25.4 (25.0-34.0) pg MCHC 31.8 L (32.0-36.0) g/dL RDW Std Deviation 47.3 H (36.4-46.3) fL RDW Coeff of Jun 16.4 H (11.5-14.5) % Plt Count 226 (130-400) K/uL MPV 11.6 (9.4-12.3) fL Immature Gran % (Auto) 0.5 % Neut % (Auto) 64.2 % Lymph % (Auto) 25.0 % [place] % (Auto) 7.5 % Eos % (Auto) 2.0 % Baso % (Auto) 0.8 % Neut # (Auto) 4.80 (1.4-6.5) K/uL Lymph # (Auto) 1.87 (1.2-3.4) K/uL [place] # (Auto) 0.56 (0.24-0.82) K/uL Eos # (Auto) 0.15 (0-0.50) K/uL Baso # (Auto) 0.06 (0-0.2) K/uL Immature Gran # (Auto) 0.04 H (0.00-0.02) K/uL Sodium 137 (136-145) mmol/L Potassium 3.3 L (3.5-5.1) mmol/L Chloride 104 (98-107) mmol/L Carbon Dioxide 24 (21-32) mmol/L Anion Gap 9 (3-11) BUN 17 (6-23) mg/dl Creatinine 1.05 (0.6-1.2) mg/dl Est Cr Clr Drug Dosing 51.4 ml/min Est GFR ( Amer) 65.5 ml/min Est GFR (Non-Af Amer) 56.5 ml/min BUN/Creatinine Ratio 16.2 (10-20) Glucose 297 H (70-99(Fasting)) mg/dl Calcium 8.7 (8.5-10.1) mg/dl Total Bilirubin 0.4 (0.2-1.0) mg/dl AST 41 H (13-39) U/L ALT 20 (7-52) U/L Alkaline Phosphatase 189 H (34-104) U/L Total Protein 6.8 (6.0-8.3) gm/dl Albumin 3.4 (3.4-5.0) gm/dl Globulin 3.4 (2.5-4.0) gm/dl Albumin/Globulin Ratio 1.0 (0.9-2) Urine Color Yellow Urine Appearance Clear (Clear) Urine pH 6.5 (4.5-7.5) Ur Specific Clare 1.015 (1.000-1.030) Urine Protein Negative (Negative) Urine Glucose (UA) 2+ H (Negative) Urine Ketones Negative (Negative) Urine Blood 3+ H (Negative) Urine Nitrite Negative (Negative) Urine Bilirubin Negative (Negative) Urine Urobilinogen Negative (Negative) Ur Leukocyte Esterase 1+ H (Negative) Urine WBC (Auto) 10-30 H (0-5) /hpf Urine RBC (Auto) >30 H (0-4) /hpf U Hyaline Cast (Auto) 1-5 (0-5) /lpf U Epithel Cells (Auto) 20-30 H (0-5) /lpf Urine Bacteria (Auto) Negative (Negative) SARS-CoV-2, RNA, NAAT (NEGATIVE) 06/13/22 Range/Units 22:17 WBC (4.8-10.8) K/ul RBC (3.93-5.22) M/uL Hgb (12.0-16.0) g/dl Hct (34.1-44.9) % MCV (80.0-100.0) fL MCH (25.0-34.0) pg MCHC (32.0-36.0) g/dL RDW Std Deviation (36.4-46.3) fL RDW Coeff of Jun (11.5-14.5) % Plt Count (130-400) K/uL MPV (9.4-12.3) fL Immature Gran % (Auto) % Neut % (Auto) % Lymph % (Auto) % [place] % (Auto) % Eos % (Auto) % Baso % (Auto) % Neut # (Auto) (1.4-6.5) K/uL Lymph # (Auto) (1.2-3.4) K/uL [place] # (Auto) (0.24-0.82) K/uL Eos # (Auto) (0-0.50) K/uL Baso # (Auto) (0-0.2) K/uL Immature Gran # (Auto) (0.00-0.02) K/uL Sodium (136-145) mmol/L Potassium (3.5-5.1) mmol/L Chloride (98-107) mmol/L Carbon Dioxide (21-32) mmol/L Anion Gap (3-11) BUN (6-23) mg/dl Creatinine (0.6-1.2) mg/dl Est Cr Clr Drug Dosing ml/min Est GFR ( Amer) ml/min Est GFR (Non-Af Amer) ml/min BUN/Creatinine Ratio (10-20) Glucose (70-99(Fasting)) mg/dl Calcium (8.5-10.1) mg/dl Total Bilirubin (0.2-1.0) mg/dl AST (13-39) U/L ALT (7-52) U/L Alkaline Phosphatase (34-104) U/L Total Protein (6.0-8.3) gm/dl Albumin (3.4-5.0) gm/dl Globulin (2.5-4.0) gm/dl Albumin/Globulin Ratio (0.9-2) Urine Color Urine Appearance (Clear) Urine pH (4.5-7.5) Ur Specific Clare (1.000-1.030) Urine Protein (Negative) Urine Glucose (UA) (Negative) Urine Ketones (Negative) Urine Blood (Negative) Urine Nitrite (Negative) Urine Bilirubin (Negative) Urine Urobilinogen (Negative) Ur Leukocyte Esterase (Negative) Urine WBC (Auto) (0-5) /hpf Urine RBC (Auto) (0-4) /hpf U Hyaline Cast (Auto) (0-5) /lpf U Epithel Cells (Auto) (0-5) /lpf Urine Bacteria (Auto) (Negative) SARS-CoV-2, RNA, NAAT NEGATIVE (NEGATIVE) Administered Medications Fluconazole (Fluconazole 100 Mg Tab) 200 mg PO QAM HALEY Stop: 07/14/22 08:59 Last Admin: 06/14/22 09:40 Dose: 200 mg Documented By: PARIS Furosemide (Furosemide 20 Mg Tab) 20 mg PO DAILY HALEY Stop: 07/14/22 08:59 Last Admin: 06/14/22 09:40 Dose: 20 mg Documented By: PARIS Ceftriaxone Sodium 2,000 mg/ (Dextrose) 70 mls @ 100 mls/hr IV DAILY HALEY; Protocol Stop: 06/24/22 09:29 Last Infusion: 06/14/22 10:34 Dose: 0 mls/hr Documented By: Admin: 06/14/22 09:39 Dose: 100 mls/hr Documented By: PARIS Insulin Aspart (Insulin Aspart Per Unit) 0 units SC ACHS HALEY Stop: 07/14/22 07:29 Last Admin: 06/14/22 17:21 Dose: 1 units Documented By: DUYEN Co-signed By: DAVIN Admin: 06/14/22 11:42 Dose: 4 units Documented By: DUYEN Co-signed By: LILLIE Admin: 06/14/22 09:38 Dose: 4 units Documented By: PARIS Co-signed By: KRYSTAL Magnesium Oxide (Magnesium Oxide 400 Mg Tab) [address] [facility] Stop: 07/14/22 08:59 Last Admin: 06/14/22 09:40 Dose: 400 mg Documented By: PARIS Metoprolol Succinate (Metoprolol Succ 25mg Ext Rel Tab) [address] [facility] Stop: 07/14/22 08:59 Last Admin: 06/14/22 09:39 Dose: 25 mg Documented By: PARIS Multivitamins (Multivitamin Tab) [address] [facility] Stop: 07/14/22 08:59 Last Admin: 06/14/22 09:40 Dose: 1 tab Documented By: PARIS Pantoprazole Sodium (Pantoprazole 40 Mg Tab) [address] [facility] Stop: 07/14/22 08:59 Last Admin: 06/14/22 09:39 Dose: 40 mg Documented By: PARIS Discontinued Medications Sodium Chloride (Nss 1000ml) 1,000 mls @ 150 mls/hr IV .Q6H40M HALEY Stop: 06/14/22 11:34 Last Infusion: 06/14/22 16:11 Dose: 0 mls/hr Documented By: Admin: 06/14/22 05:50 Dose: 150 mls/hr Documented By: Infusion: 06/14/22 05:49 Dose: 0 mls/hr Documented By: Admin: 06/13/22 22:22 Dose: 150 mls/hr Documented By: IRINA Potassium Chloride (K Ney / Wtr) 10 meq in 100 mls @ 100 mls/hr IV Q1H HALEY Stop: 06/14/22 03:44 Last Infusion: 06/14/22 03:58 Dose: 0 mls/hr Documented By: Admin: 06/14/22 02:58 Dose: 100 mls/hr Documented By: Infusion: 06/14/22 02:50 Dose: 100 mls/hr Documented By: Admin: 06/14/22 01:50 Dose: 100 mls/hr Documented By: IRINA Cefepime HCl 2,000 mg/ Syringe 20 mls @ 5 mls/min IV NOW STA; Protocol Stop: 06/14/22 01:51 Last Admin: 06/14/22 02:26 Dose: 5 mls/min Documented By: IRINA Magnesium Sulfate/Dextrose (Magnesium Sulfate / D5w) 1 gm in 100 mls @ 50 mls/hr IV Q2H HALEY Stop: 06/14/22 14:59 Last Infusion: 06/14/22 16:10 Dose: 0 mls/hr Documented By: Admin: 06/14/22 12:36 Dose: 50 mls/hr Documented By: Infusion: 06/14/22 12:36 Dose: 50 mls/hr Documented By: Admin: 06/14/22 11:22 Dose: 50 mls/hr Documented By: Infusion: 06/14/22 11:22 Dose: 50 mls/hr Documented By: Admin: 06/14/22 09:40 Dose: 50 mls/hr Documented By: PARIS Morphine Sulfate (Morphine Sulfate 2 Mg/Ml Carp) 2 mg IV Q1H PRN PRN Reason: pain Stop: 06/27/22 22:14 Last Admin: 06/13/22 22:23 Dose: 2 mg Documented By: IIRNA Ondansetron HCl (Ondansetron Inj 2 Mg/Ml 2 Ml Vial) 4 mg IV NOW STA Stop: 06/13/22 22:15 Last Admin: 06/13/22 22:23 Dose: 4 mg Documented By: IRINA Ondansetron HCl (Ondansetron Inj 2 Mg/Ml 2 Ml Vial) Confirm Administered Dose 4 mg .ROUTE .STK-MED ONE Stop: 06/14/22 01:48 Last Admin: 06/14/22 01:49 Dose: 4 mg Documented By: IRINA Potassium Chloride (Potassium Chloride Crtab 20 Meq Tabcr) 40 meq PO NOW STA Stop: 06/14/22 01:35 Last Admin: 06/14/22 04:16 Dose: Not Given Documented By: IRINA Potassium Chloride (Potassium Chloride Crtab 20 Meq Tabcr) 40 meq PO NOW STA Stop: 06/14/22 09:00 Last Admin: 06/14/22 09:58 Dose: 40 meq Documented By: PARIS Imaging Data Radiologist's Impression: CT abd pelvis wo con CLINICAL HISTORY: eval for left flank pain TECHNIQUE: Helical axial images of the abdomen and pelvis were obtained. Automated dose lowering techniques and/or adjustment according to patient size were utilized for this exam. This exam was performed without intravenous contrast. CT DOSE: 361.45 mGy.cm COMPARISON: Comparison is made to CT chest 04/01/2022 FINDINGS: Lower chest: Interstitial thickening is seen in the lower lungs. Severe atherosclerotic disease is noted. Liver: Nodular contour of the liver is seen compatible with cirrhosis. Gallbladder and biliary tree: Patient is status post cholecystectomy. No intra- or extrahepatic biliary ductal dilation. Pancreas: Unremarkable, no focal lesions. Spleen: Unremarkable. Adrenals: Unremarkable. Kidneys and ureters: Nonobstructive nephrolithiasis is seen. There is left hydronephrosis/hydroureter with a 6 mm obstructing stone in the mid to distal ureter. Bladder: Unremarkable. Reproductive organs: Unremarkable. Bowel: Mild thickening of the sigmoid flexure may be reactive or due to underdistention. A hiatal hernia is seen. Lymph nodes Retroperitoneal: Unremarkable. Pelvic: Unremarkable. Mesenteric: Unremarkable. Peritoneum: Mild ascites is seen, increased from prior exam. Vessels: Atherosclerotic calcifications are seen. Abdominal wall: Unremarkable. Bones: There is a left hip total arthroplasty. Compression fracture of the T12 vertebral body is minimally progressed from the prior exam, anterior height previously measured 18 mm, now 16 mm. Lumbarization of S1 is noted. IMPRESSION: 1. Left hydronephrosis/hydroureter with obstructive stone in the mid to distal ureter measuring 6 mm. 2. Anterior compression fracture in T12 has minimally progressed from prior exam. 3. Cirrhosis and mild ascites. 4. Atelectasis with or without underlying fibrotic disease. 5. Additional findings as above. ACT 112: Negative or not required by law. Electronically signed by: Sukhjinder Orozco M.D. 06/13/2022 10:54 AM Dictated:06/13/22 1048 Transcribed: 06/13/22 1048 Discharge Plan Visit Data Chief Complaint: Abdominal Pain Stated Complaint: KIDNEY STONES ED Provider: Natalia Luevano Discharge Problem: Hydronephrosis, Left ureteral calculus Patient Disposition: Admitted As Inpatient Discharge Instructions Interventions: ED Discharge Assessment Last Done: 06/14/22 01:29
[2022-06-14] MEDS: LANTUS PER UNIT CHARGE SQ SCH (22:00)
[2022-06-14] MEDS: ASPIRIN 81 MG ECTAB PO SCH (22:11)
[2022-06-14] MEDS: TAMSULOSIN HCL 0.4 MG CAP PO SCH (22:12)
[2022-06-14] MEDS: VENLAFAXINE HCL XR 150 MG CAPXR PO SCH (22:12)
[2022-06-14] MEDS: MIRTAZAPINE TAB 15 MG TAB PO SCH (22:13)
[2022-06-15] MEDS ORDERED: Nursing to Pharmacy Communication SCH ×2 (00:45→13:45)
[2022-06-15] MEDS: INSULIN ASPART PER UNIT SC SCH ×4 (06:00→20:54)
--- NOTE | 2022-06-15 07:56 | Urology Progress Note ---
Date of Service June 15, 2022 Assessment & Plan (1) Left ureteral calculus: (2) Left ureteral calculus: Plan 62 yo female left obstructing ureteral calculus - Keep NPO - Plan for cystoscopy, left stent placement, possible ureteroscopy, stone treatment today. -On ceftriaxone, urine did not look infected on admission -Consent obtained -patient marked Admission and Anticipated Discharge Date Admission Date: June 13, 2022 Supervising Physician Co-Signing Physician Notes Agree with note above. Saw patient personally. Subjective Afebrile, stable vitals. Pain well controlled. Patient agreeable to procedure. Review of Systems Review of Systems: 14 point review of systems negative outside of what is listed above in HPI Physical Exam Physical Exam: General: Alert and oriented, no acute distress HEENT: Normocephalic, mucous membranes moist Pulmonary: Nonlabored respirations Abdomen: Nondistended Extremities: Moves all 4 spontaneously Neuro: No gross deficits Skin: Warm, dry, no rashes noted Results & Data ([facility]) Vital Signs (Past 12 Hours) Vital Signs Temp Pulse Resp BP BP Pulse Ox O2 Del Method 06/15/22 07:24 36.9 C 72 16 146/78 H 95 Room Air 06/14/22 20:34 36.9 C 82 16 155/76 H 95 Room Air PG Care Time/CCT Total # of Minutes Spent Total Time Spent with Patient: Total time spent is greater than 50% in coordination of care (as documented) at patient's floor/unit and/or counseling patient: [place] [address] Subseq Hosp Care Lvl 2 Patient Type Established Diagnoses Left ureteral calculus N20.1 Left ureteral calculus N20.1
[2022-06-15 08:29] LABS: Albumin Globulin Ratio 0.8 (0.9-2); Albumin Level 2.8 gm/dl (3.4-5.0); Bilirubin,Total 0.4 mg/dl (0.2-1.0); Calcium 8.4 mg/dl (8.5-10.1); Est GFR (African American) 69.4 ml/min; Est GFR (Non-African American) 59.9 ml/min; Globulin 3.3 gm/dl (2.5-4.0); INR 3.5 (0.9-1.1); Magnesium 1.7 mg/dl (1.7-2.4); Potassium 3.3 mmol/L (3.5-5.1); Prothrombin Time 34.9 Seconds (9.0-12.0); Total Protein 6.1 gm/dl (6.0-8.3)
[2022-06-15] MEDS: POTASSIUM CHLORIDE CRTAB 20 MEQ TABCR PO SCH (08:29)
[2022-06-15] MEDS: PANTOprazole 40 MG TAB PO SCH ×2 (08:29→20:37)
[2022-06-15] MEDS: FLUCONAZOLE 100 MG TAB PO SCH (08:29)
[2022-06-15] MEDS: MULTIVITAMIN TAB PO SCH (08:29)
[2022-06-15] MEDS: METOPROLOL SUCC 25MG EXT REL TAB PO SCH (08:29)
[2022-06-15] MEDS: MAGNESIUM OXIDE 400 MG TAB PO SCH (08:29)
[2022-06-15] MEDS: FUROSEMIDE 20 MG TAB PO SCH (08:30)
[2022-06-15] MEDS: cefTRIAXone SODIUM 2,000 MG in DEXTROSE 5% 50 ML IV SCH (08:30)
[2022-06-15] MEDS ORDERED: LIDOCAINE 2% MPF LOCAL 5 ML VIAL INFIL ONE (09:56)
[2022-06-15] MEDS ORDERED: PROPOFOL IV EMULSION 10 MG/ML 20 ML VIAL IV ONE (09:56)
[2022-06-15] MEDS ORDERED: MIDAZOLAM HCL 1 MG/ML 2ML VIAL ONE (09:57)
[2022-06-15] MEDS ORDERED: fentaNYL citrate 100 MCG/2 ML VIAL ONE (09:58)
--- NOTE | 2022-06-15 09:59 | Anesthesiology Consultation ---
Date of Service June 15, 2022 Assessment & Plan Chart Review Chart Review: fish liver sorter initiated History Surgery Operation Date: 06/15/22 09:30 Proposed Procedures p Cystoscopy Retrograde Pyelogram Left Stent Placement Possible Ureteroscopy Possible Laser Lithotripsy Stone Treatment - Dominic Gomez MD Height/Weight Height: 5 ft 4 in Weight: 66.5 kg Allergies Allergy/AdvReac Type Severity Reaction Status Date / Time Penicillins Allergy Intermediate Hives Verified 06/10/22 13:23 atorvastatin Allergy Unknown CAN'T Verified 06/10/22 13:23 REMEMBER gemfibrozil [From Lopid] Allergy Unknown CAN'T Verified 06/10/22 13:23 REMEMBER acetaminophen [From Tylenol] AdvReac Severe CAN NOT Verified 06/10/22 13:23 TAKE D/T LIVER ISSUES ibuprofen AdvReac Severe liver Verified 06/10/22 13:23 issues rosuvastatin AdvReac Intermediate Muscle Pain Verified 06/10/22 13:23 Medications Home Medications Medication Instructions Recorded Confirmed Last Taken aspirin 81 mg tablet,delayed 81 mg PO HS 06/05/19 06/10/22 04/26/22 release multivitamin 1 tab PO QAM 09/07/19 06/10/22 04/27/22 Contour Next Test Strips (blood #300 ea 12/29/20 06/08/22 Unknown sugar diagnostic) blood-glucose sensor (Dexcom G6 #3 ea 01/22/21 06/08/22 Unknown Sensor device) blood-glucose transmitter (Dexcom #1 ea 01/22/21 06/08/22 Unknown G6 Transmitter device) mirtazapine 30 mg tablet 30 mg PO HS #90 tabs 05/06/21 06/10/22 04/26/22 venlafaxine 150 mg 300 mg PO HS #180 caps 07/01/21 06/10/22 04/26/22 capsule,extended release 24 hr (Effexor XR) acetone (urine) test (Ketostix #50 ea 10/14/21 06/08/22 Unknown strips) pen needle, diabetic 32 gauge x #120 ea 11/06/21 06/08/22 Unknown 5/32" (BD Ultra-Fine Jody Pen Needle) insulin aspart U-100 100 unit/mL 0 unit subcut TIDM 03/01/22 06/10/22 Unknown (3 mL) subcutaneous pen insulin glargine U-300 conc 300 68 unit subcut QPM 03/01/22 06/10/22 04/26/22 unit/mL (1.5 mL) subcutaneous pen (Jeremiah Merlos U-300 Insulin) metoprolol succinate 25 mg 25 mg PO QAM #90 tabs 04/16/22 06/10/22 04/27/22 tablet,extended release 24 hr fluconazole 100 mg tablet 200 mg PO QAM #30 tabs 04/22/22 06/10/22 04/27/22 pantoprazole 40 mg tablet,delayed 40 mg PO BID #60 tabs 05/10/22 06/10/22 Unknown release furosemide 20 mg tablet 20 mg PO DAILY #30 tabs 05/26/22 06/10/22 Unknown warfarin 1 mg tablet 2 mg PO DAILY #100 tabs 05/27/22 06/10/22 Unknown magnesium oxide 400 mg (241.3 mg 400 mg PO QAM #90 tabs 06/04/22 06/10/22 Unknown magnesium) tablet potassium chloride 20 mEq 20 meq PO DAILY #30 tabs 06/05/22 06/10/22 Unknown tablet,extended release Active Medications Generic Name Dose Route Start Last Admin Trade Name Freq PRN Reason Stop Dose Admin Aspirin 81 mg 06/14/22 21:00 06/14/22 22:11 Aspirin 81 Mg Ectab PO 07/14/22 20:59 81 mg HS HALEY Administration Fluconazole 200 mg 06/14/22 09:00 06/15/22 08:29 Fluconazole 100 Mg Tab PO 07/14/22 08:59 200 mg QAM HALEY Administration Furosemide 20 mg 06/14/22 09:00 06/15/22 08:30 Furosemide 20 Mg Tab PO 07/14/22 08:59 Not Given DAILY HALEY Hydromorphone HCl 0.5 mg 06/14/22 01:28 06/15/22 05:49 Hydromorphone Inj 0.5 Mg/0.5 Ml Syr IV 06/28/22 01:27 0.5 mg Q4H PRN Administration Severe pain Ceftriaxone Sodium 2,000 mg/ 70 mls @ 100 mls/hr 06/14/22 09:30 06/15/22 09:20 Dextrose IV 06/24/22 09:29 Infused DAILY HALEY Infusion Protocol Insulin Aspart 0 units 06/15/22 06:00 06/15/22 06:00 Insulin Aspart Per Unit SC 07/15/22 05:59 Not Given Q6 HALEY Insulin Glargine 65 units 06/14/22 21:00 06/14/22 22:00 Lantus Per Unit Charge SQ 07/14/22 20:59 Not Given HS HALEY Magnesium Oxide 400 mg 06/14/22 09:00 06/15/22 08:29 Magnesium Oxide 400 Mg Tab PO 07/14/22 08:59 400 mg QAM HALEY Administration Metoprolol Succinate 25 mg 06/14/22 09:00 06/15/22 08:29 Metoprolol Succ 25mg Ext Rel Tab PO 07/14/22 08:59 25 mg QAM HALEY Administration Mirtazapine 30 mg 06/14/22 21:00 06/14/22 22:13 Mirtazapine Tab 15 Mg Tab PO 07/14/22 20:59 30 mg HS HALEY Administration Multivitamins 1 tab 06/14/22 09:00 06/15/22 08:29 Multivitamin Tab PO 07/14/22 08:59 1 tab QAM HALEY Administration Pantoprazole Sodium 40 mg 06/14/22 09:00 06/15/22 08:29 Pantoprazole 40 Mg Tab PO 07/14/22 08:59 40 mg BID HALEY Administration Potassium Chloride 40 meq 06/15/22 09:00 06/15/22 08:29 Potassium Chloride Crtab 20 Meq Tabcr PO 07/15/22 08:59 40 meq QAM HALEY Administration Tamsulosin HCl 0.4 mg 06/14/22 21:00 06/14/22 22:12 Tamsulosin Hcl 0.4 Mg Cap PO 07/14/22 20:59 0.4 mg HS HALEY Administration Venlafaxine HCl 300 mg 06/14/22 21:00 06/14/22 22:12 Venlafaxine Hcl Xr 150 Mg Capxr PO 07/14/22 20:59 300 mg HS HALEY Administration NPO Date Last Intake of Fluids: 06/14/22 Time Last Intake of Fluids: 20:00 Last Intake of Fluids Comment: sip of H2O with pills Date Last Intake of Solids: 06/14/22 Time Last Intake of Solids: 20:00 Past Medical History Medical History Anxiety Cirrhosis of liver FOLLOWS W/ [facility] Stable currently Depression Diabetes mellitus, type 2 IDDM Glucose fluctuates - since Covid in December 2020 On insulin pump Follows with endocrinology Dupuytren's contracture of hand Bilateral hands Dyslipidemia History of COVID-12 January 2021 > [facility], not hospitalized, fever, ear pain- did give infusion in ER No current issues Hypertension IBS (irritable bowel syndrome) Stable Insomnia Kidney stones FOLLOWS WITH DR FUCHS No current issues - monitoring currently Past Family History Family History Father , age 75 Family history of diabetes mellitus Coronary heart disease Brother Family history of diabetes mellitus Mother , age 67 Family history of diabetes mellitus Heart disease Hypertension Grandfather (Paternal) Family history of diabetes mellitus Grandmother (Paternal) Family history of diabetes mellitus Denies family history of Ovarian cancer Breast cancer Colorectal cancer Past Surgical History Surgical History History of cystoscopy WITH STENTS AND STONE BASKETING History of lithotripsy History of tonsillectomy and adenoidectomy History of total hip arthroplasty LEFT Hx laparoscopic cholecystectomy Hx of colonoscopy Hx of surgical amputation of finger left pinky Hx of total hysterectomy GERALD WITH BSO Hx of tubal ligation Hx of wisdom tooth extraction Social History Smoking Status: Never smoker tobacco type: cigarettes Smoking cigarettes per day: 06/2018 Hx Alcohol Use: No alcohol intake frequency: holidays/special occasions only Hx Substance Use: No substance use type: does not use Physical Exam Vital Signs Last Vital Signs Temp 98.1 F 06/15/22 09:47 Pulse 76 06/15/22 09:47 Resp 20 06/15/22 09:47 BP 134/74 06/15/22 09:47 Pulse Ox 96 06/15/22 09:47 O2 Del Method 06/15/22 09:47 Testing Laboratory Results 06/14/22 05:35 06/15/22 07:20 PT 34.9 Seconds (9.0-12.0) H 06/15/22 07:20 INR 3.5 (0.9-1.1) H 06/15/22 07:20 APTT 52.8 Seconds (21.0-31.0) H* 06/13/22 23:19 Urine Color Yellow 06/13/22 21:10 Urine Appearance Clear (Clear) 06/13/22 21:10 Urine pH 6.5 (4.5-7.5) 06/13/22 21:10 Ur Specific [employer] 1.015 (1.000-1.030) 06/13/22 21:10 Urine Protein Negative (Negative) 06/13/22 21:10 Urine Glucose (UA) 2+ (Negative) H 06/13/22 21:10 Urine Ketones Negative (Negative) 06/13/22 21:10 Urine Nitrite Negative (Negative) 06/13/22 21:10 Ur Leukocyte Esterase 1+ (Negative) H 06/13/22 21:10 Urine WBC (Auto) 10-30 /hpf (0-5) H 06/13/22 21:10 Urine RBC (Auto) >30 /hpf (0-4) H 06/13/22 21:10 U Hyaline Cast (Auto) 1-5 /lpf (0-5) 06/13/22 21:10 U Epithel Cells (Auto) 20-30 /lpf (0-5) H 06/13/22 21:10 Urine Bacteria (Auto) Negative (Negative) 06/13/22 21:10 06/15/22 06/15/22 06/15/22 09:48 05:48 00:07 POC Glucose 167 H 133 H 124 H 06/14/22 22:00 POC Glucose 136 H Electrocardiogram Date: 06/14/22 Poor data quality, interpretation may be adversely affected Normal sinus rhythm Left anterior fascicular block Nonspecific ST abnormality Abnormal ECG When compared with ECG of 29-APR-2022 05:37, Premature ventricular complexes are no longer Present Vent. rate has decreased BY 43 BPM Confirmed by Arvin Green ([id number]) on 06/14/2022 1:23:43 PM Chest X-Ray Date: 04/19/22 FINDINGS: The cardiac silhouette is enlarged. Atherosclerosis of the aorta. Pulmonary vascular congestion with mild interstitial coarsening. No pneumothorax, large pleural effusion or lobar airspace consolidation. Bones appear grossly intact. IMPRESSION: Cardiomegaly with pulmonary vascular congestion. Echocardiogram Date: 04/20/22 Compared with 03/07/22 study, no significant change. The study was technically limited. The LV is normal in structure and function. EF 55-60% There is borderline concentric LVH RV is normal in size and function Mild to mod MR LA is moderately dilated RVSP is elevated at 30-40mmHg
[2022-06-15] MEDS ORDERED: ATROPINE SULFATE 0.1 MG/ML 10ML SYR IV PRN (10:07)
[2022-06-15] MEDS ORDERED: fentaNYL citrate 100 MCG/2 ML VIAL IV PRN (10:07)
[2022-06-15] MEDS ORDERED: ONDANSETRON INJ 2 MG/ML 2 ML VIAL IV PRN (10:07)
[2022-06-15] MEDS ORDERED: ePHEDrine sulfate 50 MG/ML AMP IV PRN (10:07)
[2022-06-15] MEDS ORDERED: DIATRIZOATE MEGLUMINE 30% 100ML VIAL INSTIL ONE (11:41)
--- NOTE | 2022-06-15 11:44 | Post Operative Brief Note ---
PG Immediate Post Op with CF Date of Surgery June 15, 2022 Pre & Post Diagnosis Operation Date: 06/15/22 09:30 Pre-Op Diagnosis: Left Ureteral Calculus Post-Op Diagnosis: Left Ureteral Calculus I identified the patient and participated in the time-out.: Yes Procedure Operation Date: 06/15/22 09:30 Actual Procedures p Cystoscopy, Retrograde Pyelogram, Left Stent Placement, Ureteroscopy, Laser Lithotripsy Stone Treatment, Stone Basket Extraction(Left) - Dominic Gomez MD Surgeon Dominic Gomez MD Basin Finish Operator Tig Welder Axel Camargo MD Estimated Blood Loss 10 Findings See Below Stone encountered in ureter, lasered and basketed out. No obvious stone in the kidney. Stent in appropriate position. Retrograde showed no extravasation or filling defects. Specimens Specimen Description: A. Left ureteral stones Drains Other (6x24 L stent ) Anesthesia Type General Complications none
--- NOTE | 2022-06-15 11:49 | Operative Report ---
PG Post Operative Report Pre & Post Diagnosis Operation Date: 06/15/22 09:30 Pre-Op Diagnosis: Left Ureteral Calculus Post-Op Diagnosis: Left Ureteral Calculus I identified the patient and participated in the time-out.: Yes Procedure Operation Date: 06/15/22 09:30 Actual Procedures p Cystoscopy, Retrograde Pyelogram with radiographic interpretation, Left Stent Placement, Ureteroscopy, Laser Lithotripsy Stone Treatment, Stone Basket Extraction(Left) - Dominic Gomez MD Surgeon Dominic Gomez MD Unemployment Examiner Axel Camargo MD Estimated Blood Loss 10 Findings See Below Stone encountered and ureter, lasered and fragments removed. Remainder of ureter and kidney free of stone. Unable to visualize small stone in left lower pole seen on CT scan due to need for severe deflection. Left retrograde showed no extravasation or filling defects. Stent in appropriate position Specimens Left ureteral calculi Drains 6 Moz[place]ican by 24 cm left ureteral stent Anesthesia Type General Complications none Indications 62-year-old female with a 6 mm left mid to distal ureteral calculus. Patient's pain was controlled and there was no concern for infection. Opted to attempt to treat stone while patient hospitalized. Patient was currently on ceftriaxone. Description of Procedure After informed consent was obtained, the patient was transported to the operative suite. General anesthesia was induced. They were placed in dorsal lithotomy position and prepped and draped in sterile fashion. They received preoperative ceftriaxone. An appropriate surgical timeout was performed. 22 [place] rigid cystoscope was inserted per urethra into the bladder. I turned my attention to the left ureteral stent shot a left retrograde pyelogram which showed moderate hydronephrosis and what appeared to be a filling defect in the mid to distal left ureter corresponding with CT scan. I advanced a sensor wire and confirmed in the upper pole of the kidney fluoroscopically. I then advanced a 10 [place] dual-lumen in the left distal ureter over the wire. I advanced a second Super Stiff wire and confirmed this in the upper pole of the kidney. 10 [place]amb[place] dual-lumen was removed. I advanced a semirigid ureteroscope alongside both wires into the left distal ureter without issue and encountered the stone in the mid to distal left ureter. I inserted a 272 m fiber laser and under settings of 0.6 and 8, fragmented the stone into smaller pieces. These were removed with a 0 tip nitinol basket. I then removed the semirigid ureteroscope. I advanced a flexible ureteroscope over the Super Stiff wire in the left distal ureter and removed the wire. Under direct visualization, I advanced the flexible ureteroscope into the kidney. Inspection of the upper and middle pole showed no stones. I inspected the lower pole as best I could and did not see the small stone noted on CT scan. This did require significant deflection with the scope and I still was unable to see anything. At this point, the scope would not come out of deflection. I was unable to advance it any further or get it to straighten out so I opted to attempt to slowly pull this back in the ureter as far as I could hoping it would straighten out. I was able to get into the left distal ureter but then it was unable to remove any further or straighten out. I attempted to advance a both Super Stiff wire and 5 Mozambican open-ended catheter through this to straighten the scope out but it would not straighten. I then attempted to advance a semirigid ureteroscope alongside the scope to straighten i out but was unsuccessful. Intermittently I shot left retrograde pyelograms which did not show any extravasation. At this point, I called my partner Dr. Camargo to see if he had any other ideas. He opted to again attempt to advance a semirigid ureteroscope alongside the scope. Slowly advancing a wire and then advancing over the wire with the scope, he was able to get past the narrowing and eventually push the ureteroscope back up into the kidney and at this point it did straighten out. Super Stiff wire was left in the kidney and the semirigid scope was removed. The flexible ureteroscope was then removed atraumatically. Dr. Camargo then scrubbed out. I advanced a 10 Mozambican dual-lumen over the wire in the left distal ureter and shot a left retrograde pyelogram which showed no extravasation or filling defects in either the ureter or the kidney. I then deployed a 6 Mozambican by 24 cm left ureteral stent over the wire with a good proximal coil noted in the renal pelvis and a good distal coil noted in the bladder. These were confirmed fluoroscopically and under direct visualization, respectively. The bladder was emptied alone with the stone fragments. This concluded the end of the case. All counts correct at the end of the case. I was present scrubbed and actively participated for the entire to the procedure. I attest to the content of the Intraoperative Record and any orders documented therein. Any exceptions are noted below.
[2022-06-15] MEDS ORDERED: ONDANSETRON INJ 2 MG/ML 2 ML VIAL ONE (12:05)
--- NOTE | 2022-06-15 12:46 | Anesthesiology Progress Note ---
Date of Service June 15, 2022 Anesthesia Post Procedure Vital Signs Vital Signs: Temp Pulse Pulse Resp BP BP Pulse Ox 06/15/22 12:25 98.1 F 69 15 145/75 H 94 06/15/22 12:15 79 17 148/75 H 95 06/15/22 12:05 90 17 143/82 H 97 06/15/22 11:56 97.2 F L 97 H 7 L 156/94 H 91 06/15/22 09:47 98.1 F 76 20 134/74 96 06/15/22 07:24 98.4 F 72 16 146/78 H 95 06/14/22 20:34 98.4 F 82 16 155/76 H 95 06/14/22 17:22 97.9 F 66 16 131/75 97 O2 Del Method O2 Flow Rate 06/15/22 12:25 Room Air 06/15/22 12:15 Oxymask 2 06/15/22 12:05 Oxymask 5 06/15/22 11:56 Oxymask 5 06/15/22 09:47 Room Air 06/15/22 07:24 Room Air 06/14/22 20:34 Room Air 06/14/22 17:22 Room Air Pain Intensity Bilateral Lower Back: Pain Intensity: 7 Transfer of Care Handoff Completed per policy Notes Mental Status: alert / awake / arousable and participated in evaluation Patient Amnestic to Procedure: Yes Nausea / Vomiting: adequately controlled Pain: adequately controlled Airway Patency, RR, SpO2: stable & adequate BP & HR: stable & adequate Hydration State: stable & adequate Anesthetic Complications: no major complications apparent and Pt Satisfied with anesthetic care
--- NOTE | 2022-06-15 12:47 | Fluoroscopy Report ---
FL retrograde includes kub HISTORY: 62 years-old Female LT STENT left-sided retrograde cystourethrogram COMPARISON: CT abdomen and pelvis 06/13/2022 TECHNIQUE: 13 spot fluoroscopic images of the abdomen were obtained utilizing 127.5 seconds fluorosco py time FINDINGS: Retrograde injection of contrast into the left ureter demonstrates left hydroureteronephrosis with an apparent distal ureteral filling defect. Subsequent images demonstrate placement of a guidewire with in the left ureter with subsequent placement of a ureteral stent, the proximal portion appearing to b e in satisfactory positioning. The distal portion of the stent was not imaged. Left hip total joint a rthroplasty. IMPRESSION: Fluoroscopic assistance as above. ACT 112: Negative or not required by law. The above report was generated using voice recognition software. It may contain grammatical, syntax o r spelling errors. Electronically signed by: Markos Tineo M.D. 06/15/2022 12:45 PM
[2022-06-15] MEDS ORDERED: POTASSIUM ACETATE/NSS 10 MEQ/105 ML BAG IV STA (13:49)
--- NOTE | 2022-06-15 13:49 | Hospitalist Progress Note ---
Date of Service June 15, 2022 Assessment & Plan (1) Hydronephrosis due to obstruction of ureter: Plan: This is a 62-year-old female with a history of nephrolithiasis, cirrhosis, DVT and PE on Warfarin, prolonged QTC, type 2 diabetes, atrial fibrillation, mitral regurgitation, cryptococcal meningitis NAFLD he, IBS, dyslipidemia, hypertension who presents to [facility] for evaluation of flank pain, subsequently found to have a 6mm obstructing calculus in the L ureter causing hydronephrosis and hydroureter. Obstructing Renal Calculus (LEFT) / Hydroureter and Hydronephrosis - Presenting with approx. 24-hours of L-sided abdominal/flank pain in the context of previous renal calculi - CT-A/P: "Left hydronephrosis/hydroureter with obstructive stone in the mid to distal ureter measuring 6 mm" - Placed on maintenance fluids - Initiated Flomax 0.6mg - Strain all urine - Dilaudid for pain q4h -- avoiding hepatotoxic medications with history of cirrhosis - Consult urology: appreciate insight on need for ESWL vs. stenting vs. monitoring - Given a single dose of Cefepime overnight, started on Ceftriaxone 2g IV daily 06/14 - s/p cystoscopy with stent placement and stone treatment 06/15 - Urine cx pinpoint growth- pending final, fluids stopped (2) Depression: Plan: - Continue mirtazapine and venlafaxine (3) Cirrhosis of liver: Plan: Nonalcoholic Cirrhosis - Mild transaminitis on admission, INR supratherapeutic in setting of Warfarin therapy - Visualized on CT-A/P with trace ascites - Avoid hepatotoxic medications - Unclear if patient follows with hepatology or GI as outpatient -- recommend establishing for monitoring, prophylaxis (4) Diabetes mellitus type 2, uncontrolled, without complications: Plan: - A1c at 8.2% in 04/2022 during last admission - Hold home medications (Toujeo) and SSI - On Lantus 65U qPM and SSI CF of 1:30 with carb correction (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 in 04/2022 for the above, now follows with [facility] as outpatient - Continue fluconazole 200mg qAM (was previously on higher dose, could not tolerate it so dose was reduced) (6) Atrial fibrillation: Plan: - Continue metoprolol - Continue to hold Warfarin, INR 3.5 (7) Pulmonary emboli: Plan: History of DVT and PE / Supratherapeutic INR -- goal INR 2-3 - Recent history of PE on 04/19 - unfortunately developed UGIB secondary to erosive gastritis on Xarelto, subsequently switched to Warfarin - History noted, controlled with warfarin 3mg daily per patient - Supratherapeutic on arrival, INR 4.5 - Hold home warfarin and resume when INR <3 - Daily INR (8) Prolonged QT interval: Plan: - Noted on numerous previous ECGs, last on 04/29/22 which was at 546 ms - Will get repeat ECG while here - Electrolyte repletion PRN - Avoid QTc-prolonging medications (9) Anemia: Plan: Microcytic Anemia - Since 02/2022, patient noted to have baseline Hgb between 8-10 - On arrival: Hgb 8.2 / MCV 79.9 -- iron studies from earlier this month borderline - Suspect component of chronic disease and lingering effect from recent GIB - Recheck ferritin/iron level in AM - may benefit from Venofer infusion while here if indicated - No reported GIB symptoms - monitor (10) Peripheral edema: Plan: - Per patient, worsening since discharge in 04/2022 - wasn't much of a problem prior to that - Recently seen by PCP, initiated on Lasix 20mg daily - TTE in 03/2022: EF 55-60 with borderline cLVH, mild-mod MR, mod dilation of LA - Likely multifactorial: venous stasis, possibly elevated R heart pressures - Compression stockings - Consider sleep study as outpatient - Continue Lasix while here -- could consider another TTE while here if worsening (11) Electrolyte abnormality: Plan: - Replete K - likely hypokalemic with ongoing Lasix use - Increase home KCl to 40mEq daily - Magnesium 1.3-repleted - Additional K+ replacement ordered Plan Anticipate can d/c home tomorrow. Admission and Anticipated Discharge Date Admission Date: June 13, 2022 Subjective Patient seen on daily rounds this afternoon. She underwent cystoscopy with AM with Dr. Gomez in addition to stone treatment and stent placement. She is doing well and has no complaints at present. Minimal amount of pain. No n/v. Sleepy. Review of Systems Review of Systems: All systems reviewed and are unremarkable except as noted in HPI and below. L sided flank/back pain Denies fever, chills, fatigue, headache, nasal congestion, sore throat, cough, chest pain, shortness of breath, palpitations, orthopnea, PND, abdominal pain, n/v/d, constipation, dysuria, hematuria, frequency, joint pain or swelling, easy bruising or bleeding, skin lesions or rashes. Physical Exam Physical Exam: GENERAL: 62 yo Well-developed, well-nourished WF. NAD. LUNGS: Clear to auscultation bilaterally. No W/R/R. CARDIOVASCULAR: Regular rate and rhythm. ABDOMEN: Soft, non-tender and non-distended. BS normoactive x 4 quad. EXTREMITIES: Trace BLE edema. Peripheral pulses +2/4. NEUROLOGIC: A&O x3. Nonfocal PSYCHIATRIC: Cooperative. Appropriate mood and affect. SKIN: Warm, dry, intact. No rashes or lesions. Results & Data Results & Data ([facility]) Vital Signs (Past 12 Hours) Vital Signs Temp Pulse Pulse Resp BP Pulse Ox O2 Del Method 06/15/22 13:10 36.7 C 71 16 152/84 H 94 Room Air 06/15/22 12:49 36.7 C 70 16 154/81 H 95 Room Air 06/15/22 12:25 36.7 C 69 15 145/75 H 94 Room Air 06/15/22 12:15 79 17 148/75 H 95 Oxymask 06/15/22 12:05 90 17 143/82 H 97 Oxymask 06/15/22 11:56 36.2 C L 97 H 7 L 156/94 H 91 Oxymask 06/15/22 09:47 36.7 C 76 20 134/74 96 Room Air 06/15/22 07:24 36.9 C 72 16 146/78 H 95 Room Air O2 Flow Rate 06/15/22 13:10 06/15/22 12:49 06/15/22 12:25 06/15/22 12:15 2 06/15/22 12:05 5 06/15/22 11:56 5 06/15/22 09:47 06/15/22 07:24 Laboratory Results 06/14/22 05:35 06/15/22 07:20 INR=3.5 PG Care Time/CCT Total # of Minutes Spent Total Time Spent with Patient: Total time spent is greater than 50% in coordination of care (as documented) at patient's floor/unit and/or counseling patient: Coding Diagnoses Hydronephrosis due to obstruction of ureter N13.2 Depression F32.9 Depression Type: unspecified Cirrhosis of liver K74.60 Diabetes mellitus type 2, uncontrolled, without complications 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
[2022-06-15] MEDS: POTASSIUM CHLORIDE / WTR 10 MEQ/100 ML PLCT IV SCH ×2 (14:05→15:07)
--- NOTE | 2022-06-15 14:26 | Discharge Summary ---
Date of Service June 15, 2022 Admission HPI Per Admitting Provider This is a 62-year-old female with a history of nephrolithiasis, cirrhosis, DVT and PE on Warfarin, prolonged QTC, type 2 diabetes, atrial fibrillation, mitral regurgitation, cryptococcal meningitis NAFLD he, IBS, dyslipidemia, hypertension who presents to [facility] for evaluation of flank pain. Patient states that approximately 1 day ago, she began developing left-sided abdominal pain that radiated around to her flank. She said that this felt like her typical kidney stone related pain. She denies any fevers, chills, sweats, nausea, vomiting. She denies any new shortness of breath or chest pain. She denies any complaints of urinary symptoms, including dysuria, urinary frequency, or urinary urgency. Medications reviewed and include aspirin 81, fluconazole 200 daily, Lasix, insulin, metoprolol succinate, mirtazapine, pantoprazole, potassium chloride, Toujeo, venlafaxine, warfarin. In the ED, she was found to be slightly hypertensive with otherwise normal vital signs. Admission labs reveal microcytic anemia 8.2 (from 8.5 yesterday), INR 4.5, BMP revealing mild hypokalemia 3.3, BUN 17/creatinine 1.05, admission glucose 297, AST 41, ALT 20, ALP 189, urinalysis 3+ blood plus leuk esterase, 10-30 WBCs, over [address] of the abdomen pelvis demonstrating: "Left hydronephrosis/hydroureter with obstructing stone in the mid to distal ureter measuring 6 mm; anterior compression fracture in T12 has minimally progressed from prior exam; cirrhosis and mild ascites". She was given normal saline, morphine, and Zofran. Discharge Data Allergies Allergy/AdvReac Type Severity Reaction Status Date / Time Penicillins Allergy Intermediate Hives Verified 06/10/22 13:23 atorvastatin Allergy Unknown CAN'T Verified 06/10/22 13:23 REMEMBER gemfibrozil [From Lopid] Allergy Unknown CAN'T Verified 06/10/22 13:23 REMEMBER acetaminophen [From Tylenol] AdvReac Severe CAN NOT Verified 06/10/22 13:23 TAKE D/T LIVER ISSUES ibuprofen AdvReac Severe liver Verified 06/10/22 13:23 issues rosuvastatin AdvReac Intermediate Muscle Pain Verified 06/10/22 13:23 Consultations 06/13/22 23:09 Consult Urology Routine Procedures Performed Operation Date: 06/15/22 09:30 Actual Procedures p Retrograde Pyelogram, Ureteroscopy, Laser Lithotripsy Stone Treatment, Stone Basket Extraction(Left) - Dominic Gomez MD s Cystoscopy (Not Applicable) - Dominic Gomez MD s Left Stent Placement(Left) - Dominic Gomez MD Ordered Studies 06/15/22 10:00 FL retrograde includes kub Routine Hospital Course (1) Hydronephrosis due to obstruction of ureter: (2) Depression: (3) Cirrhosis of liver: (4) Diabetes mellitus type 2, uncontrolled, without complications: (5) Cryptococcal meningitis: (6) Atrial fibrillation: (7) Pulmonary emboli: (8) Prolonged QT interval: (9) Anemia: (10) Peripheral edema: (11) Electrolyte abnormality: Discharge Plan Discharge Items Reason For Visit: OBSTRUCTING RENAL CALCULUS Follow-up/Referrals: Brendon Farfan MD [Primary Care Provider] - Medications and DC Order Prescriptions: No Action (DME) Contour Next Test Strips Strip See Rx Instructions .ROUTE .MEDSUPPLY Qty: 300 11RF Rx Instructions: Test blood sugars 6 times a day mirtazapine 30 mg tablet 30 mg PO HS Qty: 90 3RF venlafaxine [Effexor XR] 150 mg capsule,extended release 24hr 300 mg PO HS Qty: 180 3RF (DME) Ketostix Strip See Rx Instructions miscellaneous .MEDSUPPLY Qty: 50 6RF Rx Instructions: Check when blood sugars are high metoprolol succinate 25 mg tablet extended release 24 hr 25 mg PO QAM Qty: 90 3RF warfarin 1 mg tablet 2 mg PO DAILY Qty: 100 5RF Protocol: Dose Management Condition: Tuesday Dose/Route: 2 mg Instruction: 2 x 1 mg tablets Condition: Tuesday Dose/Route: 2 mg Instruction: 2 x 1 mg tablets Condition: Tuesday Dose/Route: 2 mg Instruction: 2 x 1 mg tablets Condition: Tuesday Dose/Route: 2 mg Instruction: 2 x 1 mg tablets Condition: Dose/Route: 2 mg Instruction: 2 x 1 mg tablets Condition: Tuesday Dose/Route: 2 mg Instruction: 2 x 1 mg tablets Condition: Tuesday Dose/Route: 2 mg Instruction: 2 x 1 mg tablets Protocol Text: Adjustment Start Date: Tuesday06/09/22 INR Value: 3.0 INR Date: 06/08/22 Recheck Date: 06/16/22 magnesium oxide 400 mg (241.3 mg magnesium) tablet 400 mg PO QAM Qty: 90 3RF potassium chloride 20 mEq tablet extended release 20 meq PO DAILY Qty: 30 0RF (DME) Dexcom G6 Sensor Device See Rx Instructions .ROUTE .MEDSUPPLY Qty: 3 Rx Instructions: As directed (DME) Dexcom G6 Transmitter Device See Rx Instructions .ROUTE .MEDSUPPLY Qty: 1 Rx Instructions: As directed (DME) pen needle, diabetic [BD Ultra-Fine Jody Pen Needle] 32 gauge x 5/32" needle See Rx Instructions miscellaneous .MEDSUPPLY Qty: 120 5RF Rx Instructions: Inject up to 4x a day pantoprazole 40 mg tablet,delayed release (DR/EC) 40 mg PO BID Qty: 60 11RF furosemide 20 mg tablet 20 mg PO DAILY Qty: 30 2RF multivitamin tablet 1 tab PO QAM aspirin 81 mg Tablet,Delayed Release (Dr/Ec) 81 mg PO HS fluconazole 100 mg Tablet 200 mg PO QAM Qty: 30 0RF insulin aspart U-100 100 unit/mL (3 mL) insulin pen 0 unit SUBCUT TIDM Rx Instructions: Per sliding scale Toujeo SoloStar U-300 Insulin 300 unit/mL (1.5 mL) insulin pen 68 unit SUBCUT QPM Admission Data Admit Date/Time: 06/13/22 23:09 Attending Provider: Irvin Rodriguez Admit Provider: Dominic Varela Primary Care Provider: Brendon Farfan Other Providers: Arvin Champagne ; Calos Remy ; Brendon Camargo ; Jeanne Galeas ; Dago Son ; Radha Purcell ; Mariola Martel ; Hugo Santoyo ; Rubia Aguilar ; Isadora Chua ; Alfredito Blackmon ; Dominic Gomez Coding Diagnoses Hydronephrosis due to obstruction of ureter N13.2 Depression F32.9 Depression Type: unspecified Cirrhosis of liver K74.60 Diabetes mellitus type 2, uncontrolled, without complications Cryptococcal meningitis B45.1 Atrial fibrillation I48.91 Pulmonary emboli I26.99 Prolonged QT interval R94.31 Anemia D62 Anemia type: other cause Other causes of anemia: acute posthemorrhagic Peripheral edema R60.9 Electrolyte abnormality E87.8
--- NOTE | 2022-06-15 15:07 | Hospitalist Progress Note ---
Date of Service June 15, 2022 Assessment & Plan (1) Hydronephrosis due to obstruction of ureter: Plan: This is a 62-year-old female with a history of nephrolithiasis, cirrhosis, DVT and PE on Warfarin, prolonged QTC, type 2 diabetes, atrial fibrillation, mitral regurgitation, cryptococcal meningitis NAFLD he, IBS, dyslipidemia, hypertension who presents to [facility] for evaluation of flank pain, subsequently found to have a 6mm obstructing calculus in the L ureter causing hydronephrosis and hydroureter. Obstructing Renal Calculus (LEFT) / Hydroureter and Hydronephrosis - Presenting with approx. 24-hours of L-sided abdominal/flank pain in the context of previous renal calculi - CT-A/P: "Left hydronephrosis/hydroureter with obstructive stone in the mid to distal ureter measuring 6 mm" - Provided maintenance fluids - Initiated Flomax 0.4mg - Strain all urine - Dilaudid for pain but will discontinue - Consult urology: appreciate insight on need for ESWL vs. stenting vs. monitoring - Given a single dose of Cefepime overnight, started on Ceftriaxone 2g IV daily 06/14-pinpoint growth noted on urine cx, pending - underwent cystoscopy 06/[address] Gomez with stent placement and stone treatment (2) Depression: Plan: - Continue mirtazapine and venlafaxine (3) Cirrhosis of liver: Plan: Nonalcoholic Cirrhosis - Mild transaminitis on admission, INR supratherapeutic in setting of Warfarin therapy - Visualized on CT-A/P with trace ascites - Avoid hepatotoxic medications - Unclear if patient follows with hepatology or GI as outpatient -- recommend establishing for monitoring, prophylaxis - some concern for confusion mentioned by RN, will check an ammonia level in AM (4) Diabetes mellitus type 2, uncontrolled, without complications: Plan: - A1c at 8.2% in 04/2022 during last admission - Hold home medications (Toujeo) and SSI - Initiate Lantus 65U qPM and SSI CF of 1:30 with carb correction (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 in 04/2022 for the above, now follows with [facility] [place] Neurology as outpatient - Continue fluconazole 200mg qAM (was previously on higher dose, could not tolerate it so dose was reduced) (6) Atrial fibrillation: Plan: - Continue metoprolol - Hold Warfarin, as above, for supratherapeutic INR ; resume when appropriate (7) Pulmonary emboli: Plan: History of DVT and PE / Supratherapeutic INR-- goal INR 2-3 - Recent history of PE on 04/19 - unfortunately developed UGIB secondary to erosive gastritis on Xarelto, subsequently switched to Warfarin - History noted, controlled with warfarin 3mg daily per patient - Supratherapeutic on arrival, INR 4.5 - Hold home warfarin and resume when INR <3 - Daily INR-can likely resume Warfarin tomorrow (8) Prolonged QT interval: Plan: - Noted on numerous previous ECGs, last on 04/29/22 which was at 546 ms - Will get repeat ECG while here - Electrolyte repletion PRN - Avoid QTc-prolonging medications (9) Anemia: Plan: Microcytic Anemia - Since 02/2022, patient noted to have baseline Hgb between 8-10 - On arrival: Hgb 8.2 / MCV 79.9 -- iron studies from earlier this month borderline - Suspect component of chronic disease and lingering effect from recent GIB - Recheck ferritin/iron level in AM - may benefit from Venofer infusion while here if indicated - No reported GIB symptoms - monitor (10) Peripheral edema: Plan: - Per patient, worsening since discharge in 04/2022 - wasn't much of a problem prior to that - Recently seen by PCP, initiated on Lasix 20mg daily - TTE in 03/2022: EF 55-60 with borderline cLVH, mild-mod MR, mod dilation of LA - Likely multifactorial: venous stasis, possibly elevated R heart pressures - Compression stockings - Consider sleep study as outpatient - Continue Lasix while here -- could consider another TTE while here if worsening (11) Electrolyte abnormality: Plan: - Replete K - likely hypokalemic with ongoing Lasix use - Increase home KCl to 40mEq daily - Magnesium 1.3-repleted - Additional replacement ordered for K+ of 3.3 Plan Interventions as outlined above. Will monitor overnight and anticipate home tomorrow. AM labs ordered. Plan d/w Dr. Rodriguez. Admission and Anticipated Discharge Date Admission Date: June 13, 2022 Subjective Patient seen on rounds this afternoon following her cystoscopy for obstructed L ureteral stone. Pt reports pain adequately controlled, only mild discomfort L flank. No fever, chills, cp or dyspnea. No n/v. Sleepy from anesthesia. Pt's RN notes that she seems a bit confused and unsteady on her feet. Review of Systems Review of Systems: All systems reviewed and are unremarkable except as noted in HPI and below. Denies fever, chills, fatigue, headache, nasal congestion, sore throat, cough, chest pain, shortness of breath, palpitations, orthopnea, PND, n/v/d, constipation, dysuria, hematuria, frequency, back pain, joint pain or swelling, easy bruising or bleeding, skin lesions or rashes. Physical Exam Physical Exam: GENERAL: 62 yo Well-developed, well-nourished WF. NAD. LUNGS: Clear to auscultation bilaterally. No W/R/R. CARDIOVASCULAR: Regular rate and rhythm. ABDOMEN: Soft, non-tender and non-distended, mild TTP L flank. BS normoactive x 4 quad. EXTREMITIES: No edema. Non-tender. Peripheral pulses +2/4. NEUROLOGIC: A&O x3. PSYCHIATRIC: Cooperative. Appropriate mood and affect. SKIN: Warm, dry, intact. No rashes or lesions. Results & Data Results & Data ([facility]) Vital Signs (Past 12 Hours) Vital Signs Temp Pulse Pulse Resp BP Pulse Ox O2 Del Method 06/15/22 14:51 36.5 C 80 18 153/76 H 96 Room Air 06/15/22 14:01 36.7 C 69 16 144/79 H 95 Room Air 06/15/22 13:10 36.7 C 71 16 152/84 H 94 Room Air 06/15/22 12:49 36.7 C 70 16 154/81 H 95 Room Air 06/15/22 12:25 36.7 C 69 15 145/75 H 94 Room Air 06/15/22 12:15 79 17 148/75 H 95 Oxymask 06/15/22 12:05 90 17 143/82 H 97 Oxymask 06/15/22 11:56 36.2 C L 97 H 7 L 156/94 H 91 Oxymask 06/15/22 09:47 36.7 C 76 20 134/74 96 Room Air 06/15/22 07:24 36.9 C 72 16 146/78 H 95 Room Air O2 Flow Rate 06/15/22 14:51 09/20/22 14:01 06/15/22 13:10 06/15/22 12:49 06/15/22 12:25 06/15/22 12:15 2 06/15/22 12:05 5 06/15/22 11:56 5 06/15/22 09:47 06/15/22 07:24 Laboratory Results 06/14/22 05:35 06/15/22 07:20 PG Care Time/CCT Total # of Minutes Spent Total Time Spent with Patient: Total time spent is greater than 50% in coordination of care (as documented) at patient's floor/unit and/or counseling patient: Coding Level of Care Code 29033 Subseq Hosp Care Lvl 2 Diagnoses Hydronephrosis due to obstruction of ureter N13.2 Depression F32.9 Depression Type: unspecified Cirrhosis of liver K74.60 Diabetes mellitus type 2, uncontrolled, without complications 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
[2022-06-15] MEDS ORDERED: IRON SUCROSE 200 MG in 0.9 % SODIUM CHLORIDE 100 ML IV ONE (16:30)
[2022-06-15] MEDS: MIRTAZAPINE TAB 15 MG TAB PO SCH (20:36)
[2022-06-15] MEDS: ASPIRIN 81 MG ECTAB PO SCH (20:36)
[2022-06-15] MEDS: TAMSULOSIN HCL 0.4 MG CAP PO SCH (20:38)
[2022-06-15] MEDS: VENLAFAXINE HCL XR 150 MG CAPXR PO SCH (20:38)
[2022-06-15] MEDS: LANTUS PER UNIT CHARGE SQ SCH (20:53)
[2022-06-15] MEDS ORDERED: HYDROmorphone INJ 0.5 MG/0.5 ML SYR IV STA (23:10)
[2022-06-15] MEDS ORDERED: oxyCODONE HCL IR 5 MG TAB (IMMEDIATE RELEASE) PO STA (23:13)
[2022-06-16 07:45] LABS: BUN Creatinine Ratio 14.9 (10-20); Calcium 8.2 mg/dl (8.5-10.1); Creatinine Clr Calc Pharmacy 47.4 ml/min; Est GFR (African American) 59.3 ml/min; Est GFR (Non-African American) 51.1 ml/min; Potassium 3.3 mmol/L (3.5-5.1)
[2022-06-16 07:47] LABS: INR 3.5 (0.9-1.1); Prothrombin Time 34.6 Seconds (9.0-12.0)
--- NOTE | 2022-06-16 08:37 | Urology Progress Note ---
Date of Service June 16, 2022 Assessment & Plan (1) Left ureteral calculus: (2) Hydronephrosis: Plan - Postop day #1 status post Cystoscopy, Retrograde Pyelogram with radiographic interpretation, Left Stent Placement, Ureteroscopy, Laser Lithotripsy Stone Treatment, Stone Basket Extraction - Tolerating the ureteral stent with minimal bother. - Afebrile and hemodynamically stable - Labs reviewedcreatinine stable - Urine culture prelim with pinpoint growth, reincubating. - Continues on IV ceftriaxone, follow culture. - Will arrange outpatient follow-up with our service for stent removal next week. - Continue supportive care, antibiotic therapy, and prn pain management. - From a urological perspective, can resume warfarin when appropriate per primary team. - Urology will sign-off. Please contact us any further questions, concerns, or changes in patient status. Admission and Anticipated Discharge Date Admission Date: June 13, 2022 Supervising Physician Co-Signing Physician Notes Discussed patient with NEIDA. Agree with plan. Subjective Patient examined at bedside this AM. Awake, resting in bed on arrival. No acute distress. Denies any significant pain at present. No fevers or chills. No nausea or vomiting. Tolerating diet. Voiding without issue and feels she is emptying her bladder. Notes some hematuria, no dysuria. No additional complaints at time of exam. Review of Systems Constitutional: as per Subjective / HPI Gastrointestinal: as per Subjective / HPI Genitourinary: as per Subjective / HPI Physical Exam Constitutional: no acute distress Respiratory: no respiratory distress and no labored breathing Neurologic: awake Psychiatric: Orientation: alert, oriented x 3 and cooperative Results & Data ([facility]) Vital Signs (Past 12 Hours) Vital Signs Temp Pulse Resp BP Pulse Ox O2 Del Method 06/16/22 07:30 36.7 C 67 18 91/50 L 97 Room Air 06/16/22 02:19 36.9 C 67 18 114/61 94 Room Air 06/15/22 22:59 37.2 C 72 18 129/76 93 Room Air PG Care Time/CCT Total # of Minutes Spent Total Time Spent with Patient: Total time spent is greater than 50% in coordination of care (as documented) at patient's floor/unit and/or counseling patient: Coding Level of Care Code 83271 Subseq Hosp Care Lvl 2 Diagnoses Left ureteral calculus N20.1 Hydronephrosis N13.30
[2022-06-16] MEDS: INSULIN ASPART PER UNIT SC SCH ×2 (09:28→14:09)
[2022-06-16] MEDS: PANTOprazole 40 MG TAB PO SCH (09:33)
[2022-06-16] MEDS: MULTIVITAMIN TAB PO SCH (09:33)
[2022-06-16] MEDS: FLUCONAZOLE 100 MG TAB PO SCH (09:33)
[2022-06-16] MEDS: MAGNESIUM OXIDE 400 MG TAB PO SCH (09:33)
[2022-06-16] MEDS: METOPROLOL SUCC 25MG EXT REL TAB PO SCH (09:33)
[2022-06-16] MEDS: POTASSIUM CHLORIDE CRTAB 20 MEQ TABCR PO SCH (09:38)
[2022-06-16] MEDS: FUROSEMIDE 20 MG TAB PO SCH (09:42)
[2022-06-16] MEDS: cefTRIAXone SODIUM 2,000 MG in DEXTROSE 5% 50 ML IV SCH (09:46)
--- NOTE | 2022-06-16 16:00 | Discharge Summary ---
Date of Service June 16, 2022 Admission HPI Per Admitting Provider This is a 62-year-old female with a history of nephrolithiasis, cirrhosis, DVT and PE on Warfarin, prolonged QTC, type 2 diabetes, atrial fibrillation, mitral regurgitation, cryptococcal meningitis NAFLD he, IBS, dyslipidemia, hypertension who presents to [facility] for evaluation of flank pain. Patient states that approximately 1 day ago, she began developing left-sided abdominal pain that radiated around to her flank. She said that this felt like her typical kidney stone related pain. She denies any fevers, chills, sweats, nausea, vomiting. She denies any new shortness of breath or chest pain. She denies any complaints of urinary symptoms, including dysuria, urinary frequency, or urinary urgency. Medications reviewed and include aspirin 81, fluconazole 200 daily, Lasix, insulin, metoprolol succinate, mirtazapine, pantoprazole, potassium chloride, Toujeo, venlafaxine, warfarin. In the ED, she was found to be slightly hypertensive with otherwise normal vital signs. Admission labs reveal microcytic anemia 8.2 (from 8.5 yesterday), INR 4.5, BMP revealing mild hypokalemia 3.3, BUN 17/creatinine 1.05, admission glucose 297, AST 41, ALT 20, ALP 189, urinalysis 3+ blood plus leuk esterase, 10-30 WBCs, over [address] of the abdomen pelvis demonstrating: "Left hydronephrosis/hydroureter with obstructing stone in the mid to distal ureter measuring 6 mm; anterior compression fracture in T12 has minimally progressed from prior exam; cirrhosis and mild ascites". She was given normal saline, morphine, and Zofran. Principal Diagnosis Ureterolithiasis, anemia Discharge Exam Vitals reviewed Gen: [AAOx3, NAD] HEENT: [anicteric sclerae, EOMI] CV: [RRR no mgr nl S1S2] Pulm: [CTAB no wcr] Abd: [+BS soft NT ND no masses or hernias] Ext: [no edema, 2+ DP pulses] Skin: [no rashes, warm/dry] Neuro: [full strength throughout] Discharge Data Allergies Allergy/AdvReac Type Severity Reaction Status Date / Time Penicillins Allergy Intermediate Hives Verified 06/10/22 13:23 atorvastatin Allergy Unknown CAN'T Verified 06/10/22 13:23 REMEMBER gemfibrozil [From Lopid] Allergy Unknown CAN'T Verified 06/10/22 13:23 REMEMBER acetaminophen [From Tylenol] AdvReac Severe CAN NOT Verified 06/10/22 13:23 TAKE D/T LIVER ISSUES ibuprofen AdvReac Severe liver Verified 06/10/22 13:23 issues rosuvastatin AdvReac Intermediate Muscle Pain Verified 06/10/22 13:23 Consultations 06/13/22 23:09 Consult Urology Routine Procedures Performed Operation Date: 06/15/22 09:30 Actual Procedures p Retrograde Pyelogram, Ureteroscopy, Laser Lithotripsy Stone Treatment, Stone Basket Extraction(Left) - Dominic Gomez MD s Cystoscopy (Not Applicable) - Dominic Gomez MD s Left Stent Placement(Left) - Dominic Gomez MD Ordered Studies 06/15/22 10:00 FL retrograde includes kub Routine Hospital Course (1) Hydronephrosis due to obstruction of ureter: This is a 62-year-old female with a history of nephrolithiasis, cirrhosis, DVT and PE on Warfarin, prolonged QTC, type 2 diabetes, atrial fibrillation, mitral regurgitation, cryptococcal meningitis NAFLD he, IBS, dyslipidemia, hypertension who presents to [facility] for evaluation of flank pain, subsequently found to have a 6mm obstructing calculus in the L ureter causing hydronephrosis and hydroureter. Obstructing Renal Calculus (LEFT) / Hydroureter and Hydronephrosis - Presenting with approx. 24-hours of L-sided abdominal/flank pain in the context of previous renal calculi - CT-A/P: "Left hydronephrosis/hydroureter with obstructive stone in the mid to distal ureter measuring 6 mm" - Provided maintenance fluids - Initiated Flomax 0.4mg - Strain all urine - Consulted urology appreciated - Given a single dose of Cefepime on admission and then started on Ceftriaxone 2g IV daily 06/14-ended up with mixed seda on urine cx-no further abx needed on discharge - underwent cystoscopy 06/[address] Gomez with stent placement and stone treatment-f/u as outpatient -continue FLomax x 1 week after discharge (2) Depression: - Continue mirtazapine and venlafaxine (3) Cirrhosis of liver: Nonalcoholic Cirrhosis - Mild transaminitis on admission, INR supratherapeutic in setting of Warfarin therapy - Visualized on CT-A/P with trace ascites - Avoid hepatotoxic medications - Unclear if patient follows with hepatology or GI as outpatient -- recommend establishing for monitoring, prophylaxis - NH3 level normal, no confusion on day of discharge -encouraged daily BMs, laxatives as neede f/u with GI outpt (4) Diabetes mellitus type 2, uncontrolled, without complications: - A1c at 8.2% in 04/2022 during last admission -contionue home insulin on discharge (5) Cryptococcal meningitis: - Previously hospitalized in 04/2022 for the above, now follows with [facility] as outpatient - Continue fluconazole 200mg qAM (was previously on higher dose, could not tolerate it so dose was reduced) (6) Atrial fibrillation: - Continue metoprolol -continue to Hold Warfarin for supratherapeutic INR, check INR tomorrow as outpt at the lab and f/u with PCP INR on day of dc was 3.5 (7) Pulmonary emboli: History of DVT and PE / Supratherapeutic INR-- goal INR 2-3 - Recent history of PE on 04/19 - unfortunately developed UGIB secondary to erosive gastritis on Xarelto, subsequently switched to Warfarin - History noted, controlled with warfarin 3mg daily per patient - Supratherapeutic on arrival, INR 4.5 - Hold home warfarin and resume when INR <3 - INR tomorrow as outpt (8) Prolonged QT interval: - Noted on numerous previous ECGs, last on 04/29/22 which was at 546 ms - repeat ECG while here shows improvement down to 486 is on lower dose of fluconazole now (9) Anemia: Microcytic Anemia - Since 02/2022, patient noted to have baseline Hgb between 8-10 - On arrival: Hgb 8.2 / MCV 79.9 -- iron studies from earlier this month borderline - Suspect component of chronic disease and lingering effect from recent GIB -received Venofer infusion while here and is also receiving these as outpt - No reported GIB symptoms - monitor (10) Peripheral edema: - Per patient, worsening since discharge in 04/2022 - wasn't much of a problem prior to that - Recently seen by PCP, initiated on Lasix 20mg daily - TTE in 03/2022: EF 55-60 with borderline cLVH, mild-mod MR, mod dilation of LA - Likely multifactorial: venous stasis, possibly elevated R heart pressures - Compression stockings - Consider sleep study as outpatient - increased lasix here to 40mg daily and had improvement, can return to 20mg daily as outpt along with KCl po (11) Electrolyte abnormality: - Replete K - likely hypokalemic with ongoing Lasix use -continue po KCl 20 on discharge - Magnesium 1.3-repleted Plan Dispo-stable for dc to home Total Time Total Time Spent Total Time Spent (In Minutes): 35 min Discharge Plan Discharge Items Patient Disposition: Home - Self-Care Reason For Visit: OBSTRUCTING RENAL CALCULUS Discharge Diagnosis: kidney stone on left Activity: Resume your previous activity Non-emergency contact: Primary Care Provider and Urologist Call non-emergency contact if: you have any medication questions Follow-up/Referrals: Brendon Farfan MD [Primary Care Provider] - 06/29/22 11:00 am (APPT WITH CESAR KENT PA-C) Dominic Gomez MD [Physician] - 06/22/22 1:20 pm Diet: Carb Consistent or DM2 Addtl Attending Provider Instructions: You were hospitalized due to a kidney stone that was stuck in your ureter (which is tube that carries urine from your kidney to your bladder). You were taken to the operating room on 06/15 where you underwent stone treatment and placement of a stent. You will need to follow up with urology as directed for stent removal. You were started on Flomax by mouth each night to help with pain of the stent-a prescription for this was sent to your pharmacy to take for 1 week until your stent is removed. You also were treated with a few doses of IV antibiotics. However, your urine did not appear significantly infected so this has been discontinued. You should continue to NOT TAKE your Coumadin today and have your INR checked at the lab on 06/17. These results will be sent to your family doctor for review and they can tell you if it is ok to restart your coumadin. You were treated with higher doses of lasix than usual for leg swelling and this improved. You can return to your usual doses of lasix now. Because of you ranemia and recent GI bleeding, you should NOT take aspirin any longer. There is no need for you to take this medication. Please follow up with your family doctor within 1 week of discharge from the hospital. If you have any questions/concerns after you are discharged, feel free to use the nonemergency number listed on your discharge paperwork. In the event of a medical emergency, call 911. Pending Studies at Discharge: No Stand-Alone Forms: [facility], Smoking Cessation Medications and DC Order Prescriptions: New tamsulosin 0.4 mg Capsule 0.4 mg PO HS Qty: 7 0RF Continued (DME) Contour Next Test Strips Strip See Rx Instructions .ROUTE .MEDSUPPLY Qty: 300 11RF Rx Instructions: Test blood sugars 6 times a day mirtazapine 30 mg tablet 30 mg PO HS Qty: 90 3RF venlafaxine [Effexor XR] 150 mg capsule,extended release 24hr 300 mg PO HS Qty: 180 3RF (DME) Ketostix Strip See Rx Instructions miscellaneous .MEDSUPPLY Qty: 50 6RF Rx Instructions: Check when blood sugars are high metoprolol succinate 25 mg tablet extended release 24 hr 25 mg PO QAM Qty: 90 3RF warfarin 1 mg tablet 2 mg PO DAILY Qty: 100 5RF Protocol: Dose Management Condition: Tuesday Dose/Route: 2 mg Instruction: 2 x 1 mg tablets Condition: Tuesday Dose/Route: 2 mg Instruction: 2 x 1 mg tablets Condition: Tuesday Dose/Route: 2 mg Instruction: 2 x 1 mg tablets Condition: Tuesday Dose/Route: 2 mg Instruction: 2 x 1 mg tablets Condition: Dose/Route: 2 mg Instruction: 2 x 1 mg tablets Condition: Tuesday Dose/Route: 2 mg Instruction: 2 x 1 mg tablets Condition: Tuesday Dose/Route: 2 mg Instruction: 2 x 1 mg tablets Protocol Text: Adjustment Start Date: Tuesday06/09/22 INR Value: 3.0 INR Date: 06/08/22 Recheck Date: 06/16/22 magnesium oxide 400 mg (241.3 mg magnesium) tablet 400 mg PO QAM Qty: 90 3RF potassium chloride 20 mEq tablet extended release 20 meq PO DAILY Qty: 30 0RF (DME) Dexcom G6 Sensor Device See Rx Instructions .ROUTE .MEDSUPPLY Qty: 3 Rx Instructions: As directed (DME) Dexcom G6 Transmitter Device See Rx Instructions .ROUTE .MEDSUPPLY Qty: 1 Rx Instructions: As directed (DME) pen needle, diabetic [BD Ultra-Fine Jody Pen Needle] 32 gauge x 5/32" needle See Rx Instructions miscellaneous .MEDSUPPLY Qty: 120 5RF Rx Instructions: Inject up to 4x a day pantoprazole 40 mg tablet,delayed release (DR/EC) 40 mg PO BID Qty: 60 11RF furosemide 20 mg tablet 20 mg PO DAILY Qty: 30 2RF multivitamin tablet 1 tab PO QAM fluconazole 100 mg Tablet 200 mg PO QAM Qty: 30 0RF insulin aspart U-100 100 unit/mL (3 mL) insulin pen 0 unit SUBCUT TIDM Rx Instructions: Per sliding scale Toujeo SoloStar U-300 Insulin 300 unit/mL (1.5 mL) insulin pen 68 unit SUBCUT QPM Discontinued aspirin 81 mg Tablet,Delayed Release (Dr/Ec) 81 mg PO HS Discharge Orders: Discharge Order (Routine); Ordered 06/16/22 Ordered By: Lizette Simpson Admission Data Admit Date/Time: 06/13/22 23:09 Attending Provider: Lizette Simpson Admit Provider: Dominic Varela Primary Care Provider: Brendon Farfan Other Providers: Arvin Champagne ; Calos Remy ; Brendon Camargo ; Jeanne Galeas ; Dago Son ; Radha Purcell Melissa A. ; Hugo Santoyo ; Rubia Aguilar ; Isadora hCua ; Alfredito Blackmon ; Dominic Gomez Coding Level of Care Code D/C DAY MANAGEMENT >30 MINS Diagnoses Hydronephrosis due to obstruction of ureter N13.2 Depression F32.9 Depression Type: unspecified Cirrhosis of liver K74.60 Diabetes mellitus type 2, uncontrolled, without complications Cryptococcal meningitis B45.1 Atrial fibrillation I48.91 Pulmonary emboli I26.99 Prolonged QT interval R94.31 Anemia D62 Anemia type: other cause Other causes of anemia: acute posthemorrhagic Peripheral edema R60.9 Electrolyte abnormality E87.8
[2022-06-16] MEDS ORDERED: LANTUS PER UNIT CHARGE SQ SCH (21:00)
[2022-06-20 01:16] LABS: Component 2 DNR; Source LEFT URETERAL STONE
== END 2022-06-16 17:00 | disposition home or self-care (01) | DRG 661 ==
LOC: ED 19:40 → EDINP 23:09 → SUATTDRO 23:09 → 3N 06-14 01:29

== ENCOUNTER 2022-07-05 23:02 | Observation (INO) ==
[2022-07-05] MEDS ORDERED: SODIUM CHLORIDE 0.9% 500 ML IV SCH (23:45)
[2022-07-06 00:42] LABS: Hematocrit (blood only) 27.8 % (34.1-44.9); Mean Corpuscular Hemoglobin 25.8 pg (25.0-34.0); Mean Corpuscular Hgb Conc 32.4 g/dL (32.0-36.0); Mean Corpuscular Volume 79.7 fL (80.0-100.0); RDW Coefficient of Variation 18.6 % (11.5-14.5); RDW Standard Deviation 53.6 fL (36.4-46.3); Red Blood Count 3.49 M/uL (3.93-5.22); White Blood Count 6.75 K/ul (4.8-10.8)
[2022-07-06 00:52] LABS: INR 2.6 (0.9-1.1); Prothrombin Time 25.9 Seconds (9.0-12.0)
[2022-07-06 01:02] LABS: Albumin Level 3.5 gm/dl (3.4-5.0); BUN Creatinine Ratio 18.6 (10-20); Bilirubin,Total 0.4 mg/dl (0.2-1.0); Calcium 9.3 mg/dl (8.5-10.1); Creatinine Clr Calc Pharmacy 38.5 ml/min; Globulin 3.5 gm/dl (2.5-4.0); Magnesium 1.6 mg/dl (1.7-2.4); Potassium 3.8 mmol/L (3.5-5.1)
[2022-07-06 01:08] LABS: Troponin I High Sensitivity 8.2 pg/ml (0-14)
[2022-07-06 01:32] LABS: Basophils # (auto) 0.04 K/uL (0-0.2); Basophils % (auto) 0.6 %; Eosinophils # (auto) 0.15 K/uL (0-0.50); Eosinophils % (auto) 2.2 %; Immature Granulocytes # (auto) 0.02 K/uL (0.00-0.02); Immature Granulocytes % (auto) 0.3 %; Lymphocytes # (auto) 1.66 K/uL (1.2-3.4); Lymphocytes % (auto) 24.6 %; Mean Platelet Volume 11.7 fL (9.4-12.3); Monocytes # (auto) 0.33 K/uL (0.24-0.82); Monocytes % (auto) 4.9 %; Neutrophils # (auto) 4.55 K/uL (1.4-6.5); Neutrophils % (auto) 67.4 %; Platelet Count 134 K/uL (130-400)
[2022-07-06] MEDS ORDERED: MECLIZINE HCL 25 MG TAB PO STA (01:44)
--- NOTE | 2022-07-06 01:46 | Emergency Department Note ---
History of Present Illness General Chief complaint: Nausea Stated complaint: FALL/DIZZINESS/MENINGITIS TO THE BRAIN Time Seen by Provider: 07/06/22 01:37 History of Present Illness Maximum Pain Intensity: 7 62-year-old female presents emergency department with a complaint of dizziness and she fell this evening. 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 Patient states that they have increased recently. Patient denies fever. Patient states vertiginous symptoms and states that when she stands she gets extremely dizzy. Patient denies tinnitus hearing loss patient denies chest pain shortness of breath nausea vomiting abdominal pain. There are no other mitigating or alleviating factors Home Medications Medication Instructions Recorded Confirmed Type multivitamin 1 tab PO QAM 09/07/19 07/06/22 History Contour Next Test Strips (blood #300 ea 12/29/20 07/06/22 Rx sugar diagnostic) blood-glucose sensor (Dexcom G6 #3 ea 01/22/21 07/06/22 History Sensor device) blood-glucose transmitter (Dexcom #1 ea 01/22/21 07/06/22 History G6 Transmitter device) venlafaxine 150 mg 300 mg PO HS #180 caps 07/01/21 07/06/22 Rx capsule,extended release 24 hr (Effexor XR) acetone (urine) test (Ketostix #50 ea 10/14/21 07/06/22 Rx strips) pen needle, diabetic 32 gauge x #120 ea 11/06/21 07/06/22 Rx 5/32" (BD Ultra-Fine Jody Pen Needle) metoprolol succinate 25 mg 25 mg PO QAM #90 tabs 04/16/22 07/06/22 Rx tablet,extended release 24 hr fluconazole 100 mg tablet 200 mg PO QAM #30 tabs 04/22/22 07/06/22 Rx pantoprazole 40 mg tablet,delayed 40 mg PO BID #60 tabs 05/10/22 07/06/22 Rx release furosemide 20 mg tablet 20 mg PO DAILY #30 tabs 05/26/22 07/06/22 Rx magnesium oxide 400 mg (241.3 mg 400 mg PO QAM #90 tabs 06/04/22 07/06/22 Rx magnesium) tablet potassium chloride 20 mEq 20 meq PO DAILY #30 tabs 06/05/22 07/06/22 Rx tablet,extended release insulin glargine 100 unit/mL (3 68 unit (0.68 mL) subcut QPM #62 mL 06/17/22 07/06/22 Rx mL) subcutaneous pen (Lantus Solostar U-100 Insulin) mirtazapine 30 mg tablet 30 mg PO HS #90 tabs 06/18/22 07/06/22 Rx blood-glucose meter (OneTouch #1 ea 06/28/22 07/06/22 Rx Verio Flex Meter) insulin aspart U-100 100 unit/mL See Rx Instructions subcut TIDM 06/29/22 07/06/22 History (3 mL) subcutaneous pen warfarin 1 mg tablet 0 mg PO DAILY 07/06/22 07/06/22 History Allergies Allergy/AdvReac Type Severity Reaction Status Date / Time Penicillins Allergy Intermediate Hives Verified 07/06/22 02:18 atorvastatin Allergy Unknown CAN'T Verified 07/06/22 02:18 REMEMBER gemfibrozil [From Lopid] Allergy Unknown CAN'T Verified 07/06/22 02:18 REMEMBER acetaminophen [From Tylenol] AdvReac Severe CAN NOT Verified 07/06/22 02:18 TAKE D/T LIVER ISSUES ibuprofen AdvReac Severe liver Verified 07/06/22 02:18 issues rosuvastatin AdvReac Intermediate Muscle Pain Verified 07/06/22 02:18 Past Med/Surg History Medical History Anxiety Cirrhosis of liver FOLLOWS W/ [facility] Stable currently Cryptococcal meningitis Depression Diabetes mellitus, type 2 IDDM Glucose fluctuates - since Covid in December 2020 On insulin pump Follows with endocrinology Dyslipidemia Hematemesis History of COVID-12 January 2021 > [facility], not hospitalized, fever, ear pain- did give infusion in ER No current issues Hypertension IBS (irritable bowel syndrome) Stable Insomnia Kidney stones FOLLOWS WITH DR FUCHS No current issues - monitoring currently Vertigo Surgical History History of cystoscopy WITH STENTS AND STONE BASKETING History of lithotripsy History of tonsillectomy and adenoidectomy History of total hip arthroplasty LEFT Hx laparoscopic cholecystectomy Hx of colonoscopy Hx of surgical amputation of finger left pinky Hx of total hysterectomy GERALD WITH BSO Hx of tubal ligation Hx of wisdom tooth extraction Status post Dupuytren's fasciectomy Status post total hip replacement, left Family History Father , age 75 Family history of diabetes mellitus Coronary heart disease Brother Family history of diabetes mellitus Mother , age 67 Family history of diabetes mellitus Heart disease Hypertension Grandfather (Paternal) Family history of diabetes mellitus Grandmother (Paternal) Family history of diabetes mellitus Denies family history of Ovarian cancer Breast cancer Colorectal cancer Social History Smoking Status: Never smoker Cigarettes Per Day: 06/2018; Number of Years Since Quit: 4; Second Hand Exposure: Yes; Hx Alcohol Use: No Hx Substance Use: No Preferred Language: Slovak Communication Ability: Effective Visual Impairment: No 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 Beliefs That Will Affect Care: None marital status: Current Living Situation: Alone current occupational status: employed and disabled current occupation: [employer]-pt does have disability for diabetes- insurance helps How many Children do You have: 2 Feels Safe at Home: Yes Childhood Exposure to Second-Hand Smoke: No caffeine: Yes Dental Care, Regularly: No Physical Activity Frequency: Does not Exercise Seatbelt Use: always Sunscreen Use: Yes Assistive Devices: Cane and Walker Review of Systems A total of 10 systems reviewed and were otherwise negative Constitutional: no fever Ear, Nose, Mouth, Throat: + dizziness; no ear pain and no tinnitus Respiratory: no cough Cardiovascular: no chest pain Gastrointestinal: no abdominal pain Neurologic: + dizziness; no headache(s) and no confusion Psychiatric: + visual hallucinations Physical Exam Vital Signs Vital Signs - 24 hr 07/05/22 23:10 07/05/22 23:52 07/06/22 00:30 Temperature 37.0 C Temperature Source Oral Pulse Rate 82 75 Respiratory Rate 10 L 17 29 H Blood Pressure 116/71 104/63 108/63 Blood Pressure Mean 86 76 78 Pulse Oximetry 99 97 97 Oxygen Delivery Method Room Air Room Air Room Air Sepsis Recent Fever Within 48 Hours No Sepsis New/Unexplained Change in Mental Status No Sepsis Action Taken by Nursing No Action Required 07/06/22 01:00 07/06/22 01:30 07/06/22 02:01 Temperature Temperature Source Pulse Rate 76 77 79 Respiratory Rate 19 18 20 Blood Pressure 100/64 110/58 L 101/67 Blood Pressure Mean 76 75 78 Pulse Oximetry 98 94 98 Oxygen Delivery Method Room Air Room Air Room Air Sepsis Recent Fever Within 48 Hours Sepsis New/Unexplained Change in Mental Status Sepsis Action Taken by Nursing GENERAL: Patient is awake alert in no acute distress patient is resting comfortably and showing no signs of anxiety EYES: The conjunctivae are clear. The pupils are round and reactive. EARS, NOSE, MOUTH AND THROAT: The nose is without any evidence of any deformity. Mucous membranes are moist. Tongue is midline. NECK: The neck is nontender and supple. RESPIRATORY: Normal respiratory effort is noted there is no evidence of wheezing rhonchi or rales CARDIOVASCULAR: Regular rate and rhythm noted there no murmurs rubs or gallops normal S1 normal S2. GASTROINTESTINAL: The abdomen is soft. Abdomen is nontender. PELVIS: The Pelvis is stable. No tenderness to palpation is noted. BACK: No midline tenderness or or step-off noted range of motion in flexion extension as well as rotation no signs of muscle spasm noted MUSCULOSKELETAL/EXTREMITIES: There is no evidence of gross deformity full range of motion is noted in the hips and shoulders. SKIN: There is no obvious evidence of any rash. There are no petechiae, pallor or cyanosis noted. NEUROLOGIC: Patient is awake alert and oriented x3 strength is symmetric: NIH 0 Course Reevaluation(s) Reevaluation #1: Patient is resting in no distress Time: 03:00 Consultations Consultation #1: [facility] for admit Administered Medications Discontinued Medications Sodium Chloride (Nss) 500 mls @ 999 mls/hr IV .Q31M HALEY Stop: 07/06/22 00:15 Last Infusion: 07/06/22 01:00 Dose: 0 mls/hr Documented By: Admin: 07/06/22 00:29 Dose: 999 mls/hr Documented By: IRINA Meclizine HCl (Meclizine Hcl 25 Mg Tab) 25 mg PO NOW STA Stop: 07/06/22 01:45 Last Admin: 07/06/22 01:55 Dose: 25 mg Documented By: IRINA Medical Decision Making Medical Records Attestation: I reviewed the patient's medical records. Home Medications Current Medication List: was personally reviewed by me Laboratory Data Attestation: I reviewed the patient's lab results. Result diagrams: 07/06/22 00:26 07/06/22 00:26 Lab Results 07/05/22 07/06/22 07/06/22 Range/Units 23:55 00:26 00:26 WBC 6.75 (4.8-10.8) K/ul RBC 3.49 L (3.93-5.22) M/uL Hgb 9.0 L (12.0-16.0) g/dl Hct 27.8 L (34.1-44.9) % MCV 79.7 L (80.0-100.0) fL MCH 25.8 (25.0-34.0) pg MCHC 32.4 (32.0-36.0) g/dL RDW Std Deviation 53.6 H (36.4-46.3) fL RDW Coeff of Jun 18.6 H (11.5-14.5) % Plt Count 134 (130-400) K/uL MPV 11.7 (9.4-12.3) fL Immature Gran % (Auto) 0.3 % Neut % (Auto) 67.4 % Lymph % (Auto) 24.6 % Emanuel % (Auto) 4.9 % Eos % (Auto) 2.2 % Baso % (Auto) 0.6 % Neut # (Auto) 4.55 (1.4-6.5) K/uL Lymph # (Auto) 1.66 (1.2-3.4) K/uL Emanuel # (Auto) 0.33 (0.24-0.82) K/uL Eos # (Auto) 0.15 (0-0.50) K/uL Baso # (Auto) 0.04 (0-0.2) K/uL Immature Gran # (Auto) 0.02 (0.00-0.02) K/uL PT 25.9 H (9.0-12.0) Seconds INR 2.6 H (0.9-1.1) Sodium (136-145) mmol/L Potassium (3.5-5.1) mmol/L Chloride (98-107) mmol/L Carbon Dioxide (21-32) mmol/L Anion Gap (3-11) BUN (6-23) mg/dl Creatinine (0.6-1.2) mg/dl Est Cr Clr Drug Dosing ml/min Est GFR ( Amer) ml/min Est GFR (Non-Af Amer) ml/min BUN/Creatinine Ratio (10-20) Glucose (70-99(Fasting)) mg/dl Calcium (8.5-10.1) mg/dl Magnesium (1.7-2.4) mg/dl Total Bilirubin (0.2-1.0) mg/dl AST (13-39) U/L ALT (7-52) U/L Alkaline Phosphatase (34-104) U/L Total Creatine Kinase (26-192) U/L Troponin I High Sens (0-14) pg/ml Total Protein (6.0-8.3) gm/dl Albumin (3.4-5.0) gm/dl Globulin (2.5-4.0) gm/dl Albumin/Globulin Ratio (0.9-2) SARS-CoV-2, RNA, NAAT NEGATIVE (NEGATIVE) 07/06/22 Range/Units 00:26 WBC (4.8-10.8) K/ul RBC (3.93-5.22) M/uL Hgb (12.0-16.0) g/dl Hct (34.1-44.9) % MCV (80.0-100.0) fL MCH (25.0-34.0) pg MCHC (32.0-36.0) g/dL RDW Std Deviation (36.4-46.3) fL RDW Coeff of Jun (11.5-14.5) % Plt Count (130-400) K/uL MPV (9.4-12.3) fL Immature Gran % (Auto) % Neut % (Auto) % Lymph % (Auto) % Emanuel % (Auto) % Eos % (Auto) % Baso % (Auto) % Neut # (Auto) (1.4-6.5) K/uL Lymph # (Auto) (1.2-3.4) K/uL Emanuel # (Auto) (0.24-0.82) K/uL Eos # (Auto) (0-0.50) K/uL Baso # (Auto) (0-0.2) K/uL Immature Gran # (Auto) (0.00-0.02) K/uL PT (9.0-12.0) Seconds INR (0.9-1.1) Sodium 136 (136-145) mmol/L Potassium 3.8 (3.5-5.1) mmol/L Chloride 102 (98-107) mmol/L Carbon Dioxide 24 (21-32) mmol/L Anion Gap 10 (3-11) BUN 24 H (6-23) mg/dl Creatinine 1.29 H (0.6-1.2) mg/dl Est Cr Clr Drug Dosing 38.5 ml/min Est GFR ( Amer) 51.0 ml/min Est GFR (Non-Af Amer) 44.0 ml/min BUN/Creatinine Ratio 18.6 (10-20) Glucose 258 H (70-99(Fasting)) mg/dl Calcium 9.3 (8.5-10.1) mg/dl Magnesium 1.6 L (1.7-2.4) mg/dl Total Bilirubin 0.4 (0.2-1.0) mg/dl AST 32 (13-39) U/L ALT 18 (7-52) U/L Alkaline Phosphatase 154 H (34-104) U/L Total Creatine Kinase 35 (26-192) U/L Troponin I High Sens 8.2 D (0-14) pg/ml Total Protein 7.0 (6.0-8.3) gm/dl Albumin 3.5 (3.4-5.0) gm/dl Globulin 3.5 (2.5-4.0) gm/dl Albumin/Globulin Ratio 1.0 (0.9-2) SARS-CoV-2, RNA, NAAT (NEGATIVE) Imaging Data Radiologist's Impression: CT brain per radiology is negative MDM Narrative Medical decision making differential diagnosis occult infection, electrolyte abnormality, vertigo, dehydration; I do not suspect meningitis at this time. Patient was given IV fluids meclizine. Patient complains of continued dizziness and vertiginous symptoms. Patient's CAT scan is negative I do not suspect the patient have meningitis at this time. Patient is complaining of dizziness and hallucinations. Patient is nonfocal otherwise. The case was discussed with the hospitalist for admission. Impression & Plan Dizziness Discharge Plan Visit Data Chief Complaint: Nausea Stated Complaint: FALL/DIZZINESS/MENINGITIS TO THE BRAIN ED Provider: Calos Parks Discharge Problem: Dizziness Patient Disposition: Being Evaluated by Hospitalist Forms Stand Alone Forms: My [facility] Prescriptions Prescriptions: No Action (DME) Contour Next Test Strips Strip See Rx Instructions .ROUTE .MEDSUPPLY Qty: 300 11RF Rx Instructions: Test blood sugars 6 times a day venlafaxine [Effexor XR] 150 mg capsule,extended release 24hr 300 mg PO HS Qty: 180 3RF (DME) Ketostix Strip See Rx Instructions miscellaneous .MEDSUPPLY Qty: 50 6RF Rx Instructions: Check when blood sugars are high metoprolol succinate 25 mg tablet extended release 24 hr 25 mg PO QAM Qty: 90 3RF magnesium oxide 400 mg (241.3 mg magnesium) tablet 400 mg PO QAM Qty: 90 3RF insulin glargine [Lantus Solostar U-100 Insulin] 100 unit/mL (3 mL) insulin pen 68 unit subcut QPM Qty: 62 2RF mirtazapine 30 mg tablet 30 mg PO HS Qty: 90 3RF (DME) blood-glucose meter [OneTouch Verio Flex meter] Misc See Rx Instructions miscellaneous .MEDSUPPLY Qty: 1 0RF Rx Instructions: As directed potassium chloride 20 mEq tablet extended release 20 meq PO DAILY Qty: 30 0RF (DME) Dexcom G6 Sensor Device See Rx Instructions .ROUTE .MEDSUPPLY Qty: 3 Rx Instructions: As directed (DME) Dexcom G6 Transmitter Device See Rx Instructions .ROUTE .MEDSUPPLY Qty: 1 Rx Instructions: As directed (DME) pen needle, diabetic [BD Ultra-Fine Jody Pen Needle] 32 gauge x 5/32" needle See Rx Instructions miscellaneous .MEDSUPPLY Qty: 120 5RF Rx Instructions: Inject up to 4x a day pantoprazole 40 mg tablet,delayed release (DR/EC) 40 mg PO BID Qty: 60 11RF furosemide 20 mg tablet 20 mg PO DAILY Qty: 30 2RF multivitamin tablet 1 tab PO QAM fluconazole 100 mg Tablet 200 mg PO QAM Qty: 30 0RF warfarin 1 mg tablet 0 mg PO DAILY Protocol: Dose Management Condition: Tuesday Dose/Route: 2 mg Instruction: 2 x 1 mg tablets Condition: Tuesday Dose/Route: 2 mg Instruction: 2 x 1 mg tablets Condition: Tuesday Dose/Route: 2 mg Instruction: 2 x 1 mg tablets Condition: Tuesday Dose/Route: 2 mg Instruction: 2 x 1 mg tablets Condition: Dose/Route: 2 mg Instruction: 2 x 1 mg tablets Condition: Tuesday Dose/Route: 2 mg Instruction: 2 x 1 mg tablets Condition: Tuesday Dose/Route: 2 mg Instruction: 2 x 1 mg tablets Protocol Text: Adjustment Start Date: Tuesday06/29/22 INR Value: 1.3 INR Date: 06/28/22 Recheck Date: 07/06/22 Rx Instructions: as directed by anticoagulation clinic insulin aspart U-100 100 unit/mL (3 mL) insulin pen See Rx Instructions SUBCUT TIDM Rx Instructions: subcutaneously three times daily with meals; Per sliding scale TDD: 80 units daily. Referrals Referrals: Leia Doyle DO [Primary Care Provider] -
--- NOTE | 2022-07-06 02:51 | History & Physical Report ---
Date of Service July 06, 2022 Assessment & Plan (1) Vertigo: Plan: Patient is a a 62yo female with a PMHx including nephrolithiasis, cirrhosis, DVT and PE on Warfarin, prolonged QTC, DM2, atrial fibrillation, mitral regurgitation, cryptococcal meningitis, NAFLD, IBS, HLD, and HTN, who presented to [facility] ER on 07/06/22 admitted for vertigo. Vertigo - Patient reports acute vertigo with subsequent fall - Head CT STATRAD with no acute findings - Received Meclizine in ER - Continue IVF - PT/OT ordered ALBINA - Suspect secondary to poor po intake - Cr on admission 1. 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 - Continue home fluconazole - Follow up with neurology in outpatient setting as scheduled Afib / HTN - Continue home metoprolol - Holding home lasix in setting of ALBINA - Continue home warfarin Depression - Continue home Effexor and Remeron DVT/PE, on chronic anticoagulation - INR therapeutic on admission at 2.6 (goal 2.0-3.0) - Continue home warfarin - Daily INR Microcytic Anemia - Patient with chronic microcytic anemia since admission in February 2022, baseline Hgb 8.0-10.0 - Hgb on admission 9.0 which is at baseline - No concern for acute blood loss at this time - Suspect component of chronic disease - Continue to monitor Electrolyte Abrormality - Magnesium slightly low on admission at 1.6 - Replete - Recheck Mag in AM Dispo: Admit to medsur Diet: DM2, IVF with LR at 125 cc/hr DVT ppx: home warfarin Code status: FULL CODE (2) Diabetes mellitus type 2, uncontrolled, without complications: (3) Left hip pain: (4) Cryptococcal meningitis: (5) Hypertension: (6) Depression: (7) Electrolyte abnormality: (8) Pulmonary emboli: History of Present Illness Chief Complaint: vertigo Primary Care Provider: Leia Doyle DO Patient is a a 62yo female with a PMHx including nephrolithiasis, cirrhosis, DVT and PE on Warfarin, prolonged QTC, DM2, atrial fibrillation, mitral regurgitation, cryptococcal meningitis, NAFLD, IBS, HLD, and HTN, who presented to [facility] ER on 07/06/22 with complaint of dizziness and fall. Patient states that she woke up around 0700 yesterday morning with dizziness and lightheadedness silvano t progressively worsened throughout the day. Dizziness is described as room spinning. There is associated decreased appetite, nausea and vomiting with last episode of emesis being around lunch time. Around 1999, patient had a fall at her home which she attributes to the dizziness. Patient states that while she was walking her "legs just gave out" and she fell to the carpeted ground, landing on her left side. Patient denies head trauma or LOC. She does report some right hip pain, described as soreness, and notes that she has had a prior L hip replacement. Patient denies focal weakness, numbness, or tingling. She denies recent fever or chills. No CP, SOB, abdominal pain, or headache. Denies urinary symptoms including dysuria, hematuria, urinary frequency, or urinary retention. Patient does note that she is continuing treatment with fluconazole for cryptococcal meningitis that was diagnosed in February of this year (4 months ago); plan is for 1 year of treatment with oral fluconazole. She states that since diagnosis of the meningitis, she has had multiple sequelae one of which being visual hallucinations. Patient states that for the past 3 weeks, the visual hallucinations have been worsening. She mainly sees animals (dogs, cats, and mice) and objects that she knows are physically present (e.g. a blanket on the sofa) will actually appear as an animal. She also feels that she can feel the movement of these animals. Patient states that her neurologist is aware of the visual hallucinations. In the ED, patient was hemodynamically stable. Admission labs reveal microcytic anemia with Hgb 9.0 (at baseline). INR therapeutic at 2.6 (goal 2.0-3.0). Mild ALBINA with Cr 1.29 (baseline ~1.0). No significant electrolyte abnormalities. No leukocytosis. She received IVF and meclizine without improvement of symptoms. Allergies Allergy/AdvReac Type Severity Reaction Status Date / Time Penicillins Allergy Intermediate Hives Verified 07/06/22 02:18 atorvastatin Allergy Unknown CAN'T Verified 07/06/22 02:18 REMEMBER gemfibrozil [From Lopid] Allergy Unknown CAN'T Verified 07/06/22 02:18 REMEMBER acetaminophen [From Tylenol] AdvReac Severe CAN NOT Verified 07/06/22 02:18 TAKE D/T LIVER ISSUES ibuprofen AdvReac Severe liver Verified 07/06/22 02:18 issues rosuvastatin AdvReac Intermediate Muscle Pain Verified 07/06/22 02:18 Home Medications Medication Instructions Recorded Confirmed Type multivitamin 1 tab PO QAM 09/07/19 07/06/22 History Contour Next Test Strips (blood #300 ea 12/29/20 07/06/22 Rx sugar diagnostic) blood-glucose sensor (Dexcom G6 #3 ea 01/22/21 07/06/22 History Sensor device) blood-glucose transmitter (Dexcom #1 ea 01/22/21 07/06/22 History G6 Transmitter device) venlafaxine 150 mg 300 mg PO HS #180 caps 07/01/21 07/06/22 Rx capsule,extended release 24 hr (Effexor XR) acetone (urine) test (Ketostix #50 ea 10/14/21 07/06/22 Rx strips) pen needle, diabetic 32 gauge x #120 ea 11/06/21 07/06/22 Rx 5/32" (BD Ultra-Fine Jody Pen Needle) metoprolol succinate 25 mg 25 mg PO QAM #90 tabs 04/16/22 07/06/22 Rx tablet,extended release 24 hr fluconazole 100 mg tablet 200 mg PO QAM #30 tabs 04/22/22 07/06/22 Rx pantoprazole 40 mg tablet,delayed 40 mg PO BID #60 tabs 05/10/22 07/06/22 Rx release furosemide 20 mg tablet 20 mg PO DAILY #30 tabs 05/26/22 07/06/22 Rx magnesium oxide 400 mg (241.3 mg 400 mg PO QAM #90 tabs 06/04/22 07/06/22 Rx magnesium) tablet potassium chloride 20 mEq 20 meq PO DAILY #30 tabs 06/05/22 07/06/22 Rx tablet,extended release insulin glargine 100 unit/mL (3 68 unit (0.68 mL) subcut QPM #62 mL 06/17/22 07/06/22 Rx mL) subcutaneous pen (Lantus Solostar U-100 Insulin) mirtazapine 30 mg tablet 30 mg PO HS #90 tabs 06/18/22 07/06/22 Rx blood-glucose meter (OneTouch #1 ea 06/28/22 07/06/22 Rx Verio Flex Meter) insulin aspart U-100 100 unit/mL See Rx Instructions subcut TIDM 06/29/22 07/06/22 History (3 mL) subcutaneous pen warfarin 1 mg tablet 0 mg PO DAILY 07/06/22 07/06/22 History Past Med/Surg History Medical History Anxiety Cirrhosis of liver FOLLOWS W/ [facility] Stable currently Cryptococcal meningitis Depression Diabetes mellitus, type 2 IDDM Glucose fluctuates - since Covid in December 2020 On insulin pump Follows with endocrinology Dyslipidemia Hematemesis History of COVID-12 January 2021 > [facility], not hospitalized, fever, ear pain- did give infusion in ER No current issues Hypertension IBS (irritable bowel syndrome) Stable Insomnia Kidney stones FOLLOWS WITH DR FUCHS No current issues - monitoring currently Vertigo Surgical History History of cystoscopy WITH STENTS AND STONE BASKETING History of lithotripsy History of tonsillectomy and adenoidectomy History of total hip arthroplasty LEFT Hx laparoscopic cholecystectomy Hx of colonoscopy Hx of surgical amputation of finger left pinky Hx of total hysterectomy GERALD WITH BSO Hx of tubal ligation Hx of wisdom tooth extraction Status post Dupuytren's fasciectomy Status post total hip replacement, left Family History Father , age 75 Family history of diabetes mellitus Coronary heart disease Brother Family history of diabetes mellitus Mother , age 67 Family history of diabetes mellitus Heart disease Hypertension Grandfather (Paternal) Family history of diabetes mellitus Grandmother (Paternal) Family history of diabetes mellitus Denies family history of Ovarian cancer Breast cancer Colorectal cancer Social History Smoking Status: Never smoker Cigarettes Per Day: 06/2018; Number of Years Since Quit: 4; Second Hand Exposure: No; Do You Dip or Chew Tobacco: No; Hx Alcohol Use: No Hx Substance Use: No Preferred Language: Hong Konger Communication Ability: Effective Visual Impairment: No Limitations Safety Engineer Required: No Beliefs That Will Affect Care: None marital status: Current Living Situation: Alone Current Living Situation Comment: alone current occupational status: employed and disabled current occupation: [employer] does have disability for diabetes- insurance helps How many Children do You have: 2 Feels Safe at Home: Yes Safety Concerns: Feels Safe At This Time Childhood Exposure to Second-Hand Smoke: No caffeine: Yes Dental Care, Regularly: No Physical Activity Frequency: Does not Exercise Seatbelt Use: always Sunscreen Use: Yes Assistive Devices: Glasses Review of Systems Review of Systems: See HPI Physical Exam Physical Exam: GENERAL: No acute distress. Well developed and well nourished. Vital signs reviewed as above. EYES: PERRL. EOMI w/o horizontal nor vertical nystagmus. Anicteric sclerae. HENT: Dry mucous membranes. RESPIRATORY: Clear to auscultation bilaterally. No wheezing, rales, or rhonchi. CARDIOVASCULAR: Regular rate and rhythm. No murmurs. No JVD. ABDOMEN: Soft, non-tender and non-distended. Normal bowel sounds. EXTREMITIES: No edema. Non-tender. SKIN: Warm, dry. NEUROLOGIC: A/O x3. Normal speech. No focal neurological deficits. CN II-XII grossly intact. PSYCHIATRIC: Cooperative. Appropriate mood and affect. Denies visual hallucinations during my exam. Results & Data Results & Data ([facility]) Vital Signs (Past 12 Hours) Vital Signs Temp Pulse Resp BP Pulse Ox O2 Del Method 07/06/22 02:01 79 20 101/67 98 Room Air 07/06/22 01:30 77 18 110/58 L 94 Room Air 07/06/22 01:00 76 19 100/64 98 Room Air 07/06/22 00:30 75 29 H 108/63 97 Room Air 07/05/22 23:52 17 104/63 97 Room Air 07/05/22 23:10 37.0 C 82 10 L 116/71 99 Room Air Laboratory Results 07/06/22 07/06/22 07/06/22 Range/Units 00:26 00:26 00:26 WBC 6.75 (4.8-10.8) K/ul RBC 3.49 L (3.93-5.22) M/uL Hgb 9.0 L (12.0-16.0) g/dl Hct 27.8 L (34.1-44.9) % MCV 79.7 L (80.0-100.0) fL MCH 25.8 (25.0-34.0) pg MCHC 32.4 (32.0-36.0) g/dL RDW Std Deviation 53.6 H (36.4-46.3) fL RDW Coeff of Jun 18.6 H (11.5-14.5) % Plt Count 134 (130-400) K/uL MPV 11.7 (9.4-12.3) fL Immature Gran % (Auto) 0.3 % Neut % (Auto) 67.4 % Lymph % (Auto) 24.6 % Upson % (Auto) 4.9 % Eos % (Auto) 2.2 % Baso % (Auto) 0.6 % Neut # (Auto) 4.55 (1.4-6.5) K/uL Lymph # (Auto) 1.66 (1.2-3.4) K/uL Upson # (Auto) 0.33 (0.24-0.82) K/uL Eos # (Auto) 0.15 (0-0.50) K/uL Baso # (Auto) 0.04 (0-0.2) K/uL Immature Gran # (Auto) 0.02 (0.00-0.02) K/uL PT 25.9 H (9.0-12.0) Seconds INR 2.6 H (0.9-1.1) Sodium 136 (136-145) mmol/L Potassium 3.8 (3.5-5.1) mmol/L Chloride 102 (98-107) mmol/L Carbon Dioxide 24 (21-32) mmol/L Anion Gap 10 (3-11) BUN 24 H (6-23) mg/dl Creatinine 1.29 H (0.6-1.2) mg/dl Est Cr Clr Drug Dosing 38.5 ml/min Est GFR ( Amer) 51.0 ml/min Est GFR (Non-Af Amer) 44.0 ml/min BUN/Creatinine Ratio 18.6 (10-20) Glucose 258 H (70-99(Fasting)) mg/dl Calcium 9.3 (8.5-10.1) mg/dl Magnesium 1.6 L (1.7-2.4) mg/dl Total Bilirubin 0.4 (0.2-1.0) mg/dl AST 32 (13-39) U/L ALT 18 (7-52) U/L Alkaline Phosphatase 154 H (34-104) U/L Total Creatine Kinase 35 (26-192) U/L Troponin I High Sens 8.2 D (0-14) pg/ml Total Protein 7.0 (6.0-8.3) gm/dl Albumin 3.5 (3.4-5.0) gm/dl Globulin 3.5 (2.5-4.0) gm/dl Albumin/Globulin Ratio 1.0 (0.9-2) SARS-CoV-2, RNA, NAAT (NEGATIVE) 07/05/22 Range/Units 23:55 WBC (4.8-10.8) K/ul RBC (3.93-5.22) M/uL Hgb (12.0-16.0) g/dl Hct (34.1-44.9) % MCV (80.0-100.0) fL MCH (25.0-34.0) pg MCHC (32.0-36.0) g/dL RDW Std Deviation (36.4-46.3) fL RDW Coeff of Jun (11.5-14.5) % Plt Count (130-400) K/uL MPV (9.4-12.3) fL Immature Gran % (Auto) % Neut % (Auto) % Lymph % (Auto) % Upson % (Auto) % Eos % (Auto) % Baso % (Auto) % Neut # (Auto) (1.4-6.5) K/uL Lymph # (Auto) (1.2-3.4) K/uL Upson # (Auto) (0.24-0.82) K/uL Eos # (Auto) (0-0.50) K/uL Baso # (Auto) (0-0.2) K/uL Immature Gran # (Auto) (0.00-0.02) K/uL PT (9.0-12.0) Seconds INR (0.9-1.1) Sodium (136-145) mmol/L Potassium (3.5-5.1) mmol/L Chloride (98-107) mmol/L Carbon Dioxide (21-32) mmol/L Anion Gap (3-11) BUN (6-23) mg/dl Creatinine (0.6-1.2) mg/dl Est Cr Clr Drug Dosing ml/min Est GFR ( Amer) ml/min Est GFR (Non-Af Amer) ml/min BUN/Creatinine Ratio (10-20) Glucose (70-99(Fasting)) mg/dl Calcium (8.5-10.1) mg/dl Magnesium (1.7-2.4) mg/dl Total Bilirubin (0.2-1.0) mg/dl AST (13-39) U/L ALT (7-52) U/L Alkaline Phosphatase (34-104) U/L Total Creatine Kinase (26-192) U/L Troponin I High Sens (0-14) pg/ml Total Protein (6.0-8.3) gm/dl Albumin (3.4-5.0) gm/dl Globulin (2.5-4.0) gm/dl Albumin/Globulin Ratio (0.9-2) SARS-CoV-2, RNA, NAAT NEGATIVE (NEGATIVE) Diagnostic Findings [facility] Patient: DULCE HUDSON (Female) : 58 Status: ER Date: 07/06/22 00:53 Room #: History: PT. REPORTS INCREASED WEAKNESS AND MULTIPLE FALLS SINCE GETTING DIAGNOSED WITH MENINGITIS IN DECEMBER Slices: 58 Priors: Tonny: Kerry Booker @ [phone] Exams: CT HEAD Contrast: Accession Numbers: [id number] Referring Physician: TAHIRA CINTRON Preliminary Findings Only See Final Report For Complete Findings CT HEAD: No intracranial hemorrhage. No significant mass effect or midline shift. No evidence for cortical infarct or appreciable alteration from the examination 04/27/2022. The paranasal sinuses and mastoid air cells are well-aerated. Radiologist: Nathan Hurd MD Study ready at 00:57 and initial results transmitted at 01:36 *This report constitutes a preliminary interpretation only. Non-acute findings felt to be unrelated to the clinical presentation may not be discussed in this report. The study will be interpreted and a final report will be generated by the local Radiologist the following shift. To reach the [facility] radiology department call [phone]. If a discrepancy is found between the preliminary and final interpretat ions of this study, please notify us via our Client Portal at [email or web address]. You can also fax this report with a description of the discrepancy, or include the final report, to our daytime fax number [phone]. If faxing, please indicate the severity of discrepancy using one of the following categories: [ ] 1 - Agree/Informational [ ] 2 - Unlikely to Affect Management [ ] 3 - Possible Eventual Change of Management [ ] 4 - Probable Immediate Change of Management For all other patient related information, please fax us at [phone]. [id number] Code Status & VTE Plan VTE Prophylaxis Plan VTE Prophylaxis will be ordered: Yes Supervising Physician Co-Signing Physician Notes Attending addendum: I have physically seen this patient, have supervised the medical residents activities, and agree with the H&P unless as otherwise noted. Assessment and Plan: Intractable vertigo status post fall- CT head without acute findings Some improvement with meclizine 25 mg p.o. from the ED Consult PT/OT Acute kidney injury- Creatinine 1.29 on admission, with base of 0.96-1.14 IV fluids to continue overnight, recheck laboratories in a.m. Left hip pain- History of total hip arthroplasty Check x-ray PT/OT consult Diabetes mellitus- Continue glargine 68 units subcu Placed on Accu-Cheks with NovoLog coverage per scale Check hemoglobin A1c Cryptococcal meningitis 03/17- Continue home fluconazole Following with neurology Atrial fibrillation/hypertension- Continue metoprolol and warfarin Hold furosemide Remaining orders and notations as noted Resident Activity Tracking Resident Involvement: Resident Care Provided Care Provided: Adult Hospital Medicine (1) Depression Depression Type: unspecified Qualified Code(s): F32.9 - Major depressive disorder, single episode, unspecified (2) Hypertension Hypertension type: essential hypertension Qualified Code(s): I10 - Essential (primary) hypertension
[2022-07-06] MEDS ORDERED: CARBOHYDRATES FOR HYPOGLYCEMIA PO PRN (04:44)
[2022-07-06] MEDS ORDERED: GLUCAGON FOR INJ 1 MG VIAL SQ PRN (04:44)
[2022-07-06] MEDS ORDERED: GLUCOSE 40% GEL 15 GM TUBE PO PRN (04:44)
[2022-07-06] MEDS ORDERED: GLUCOSE 10 TAB/TUBE PO PRN (04:44)
[2022-07-06] MEDS ORDERED: ALUMINUM/MAGNESIUM SUSP 30 ML UDC PO PRN (04:44)
[2022-07-06] MEDS ORDERED: DEXTROSE 50% 50 ML SYRINGE IV PRN (04:44)
[2022-07-06] MEDS ORDERED: LACTATED RINGER'S 1,000 ML IV SCH (04:44)
[2022-07-06] MEDS ORDERED: ONDANSETRON INJ 2 MG/ML 2 ML VIAL IV PRN (04:44)
[2022-07-06] MEDS ORDERED: MAGNESIUM SULFATE / D5W 1 GM/100 ML BAG IV ONE (05:00)
[2022-07-06 05:51] LABS: Basophils # (auto) 0.03 K/uL (0-0.2); Basophils % (auto) 0.5 %; Eosinophils # (auto) 0.18 K/uL (0-0.50); Hematocrit (blood only) 25.8 % (34.1-44.9); Hemoglobin 8.3 g/dl (12.0-16.0); Immature Granulocytes # (auto) 0.02 K/uL (0.00-0.02); Immature Granulocytes % (auto) 0.3 %; Lymphocytes # (auto) 2.14 K/uL (1.2-3.4); Mean Corpuscular Hemoglobin 25.6 pg (25.0-34.0); Mean Corpuscular Hgb Conc 32.2 g/dL (32.0-36.0); Mean Corpuscular Volume 79.6 fL (80.0-100.0); Mean Platelet Volume 11.5 fL (9.4-12.3); Monocytes # (auto) 0.38 K/uL (0.24-0.82); Monocytes % (auto) 6.4 %; Neutrophils % (auto) 53.8 %; Platelet Count 122 K/uL (130-400); RDW Coefficient of Variation 18.4 % (11.5-14.5); RDW Standard Deviation 53.7 fL (36.4-46.3); Red Blood Count 3.24 M/uL (3.93-5.22); White Blood Count 5.95 K/ul (4.8-10.8)
[2022-07-06 06:13] LABS: Albumin Globulin Ratio 1.1 (0.9-2); Albumin Level 3.2 gm/dl (3.4-5.0); BUN Creatinine Ratio 22.3 (10-20); Bilirubin,Total 0.4 mg/dl (0.2-1.0); Calcium 8.6 mg/dl (8.5-10.1); Creatinine Clr Calc Pharmacy 41.1 ml/min; Est GFR (African American) 55.1 ml/min; Est GFR (Non-African American) 47.6 ml/min; Magnesium 1.7 mg/dl (1.7-2.4); Potassium 3.8 mmol/L (3.5-5.1); Total Protein 6.2 gm/dl (6.0-8.3)
--- NOTE | 2022-07-06 06:41 | CT Scan Report ---
CT head/brain wo con CLINICAL HISTORY: 62 years-old Female with fall. Acute head trauma status post fall TECHNIQUE: Multiple axial CT images of the head were obtained without contrast. A dose lowering tech nique was utilized adhering to the principles of ALARA. CT DOSE: 537.48 mGy.cm COMPARISON: April 27, 2022 FINDINGS: No acute intracranial hemorrhage, midline shift, intracranial mass, hydrocephalus, territorial ischem ia or abnormal extra-axial collection. Mild white matter hypodensities suggest chronic microvascular ischemic disease. The calvarium is intact. The paranasal sinuses, mastoid air cells, and middle ear cavities are clear . IMPRESSION: No acute intracranial abnormality. ACT 112: Negative or not required by law. The above report was generated using voice recognition software. It may contain grammatical, syntax o r spelling errors. Electronically signed by: Markos Tineo M.D. 07/06/2022 6:40 AM
--- NOTE | 2022-07-06 07:03 | XRay Report ---
XR chest 1V portable HISTORY: 62 years-old Female weakness acute weakness COMPARISON: Acute abdominal series radiographs 06/08/2022 TECHNIQUE: AP view of the chest FINDINGS: Cardiomediastinal and hilar silhouettes are within normal limits. There is no pneumothorax, pleural e ffusion, airspace consolidation or overt pulmonary edema. Bones of the chest appear grossly intact. IMPRESSION: No acute process. ACT 112: Negative or not required by law. The above report was generated using voice recognition software. It may contain grammatical, syntax o r spelling errors. Electronically signed by: Markos Tineo M.D. 07/06/2022 7:02 AM
--- NOTE | 2022-07-06 07:13 | Hospitalist Progress Note ---
Date of Service July 06, 2022 Assessment & Plan (1) Vertigo: Plan: Patient is a a 62yo female with a PMHx including nephrolithiasis, cirrhosis, DVT and PE on Warfarin, prolonged QTC, DM2, atrial fibrillation, mitral regurgitation, cryptococcal meningitis, NAFLD, IBS, HLD, and HTN, who presented to [facility] ER on 07/06/22 admitted for vertigo. Vertigo - Patient reports acute vertigo that began morning of admission with subsequent/resultant fall - Head CT: No acute findings - Given positional nature of this, BPPV / inner ear etiology is a strong possibility. However, patient's recent history of meningitis, worsening hallucinations, and new-onset vertigo in the setting of subtherapeutic fluconazole dosing, major concern/diagnosis of exclusion is smoldering (sub)clinical meningitis. --> LP ordered. Give Vitamin K 10mg IV x 1 now. NPO at midnight. Hold Warfarin - Received Meclizine in ER - more PRN - Continue IVF - PT/OT ordered - could consider vestibular PT after discharge ALBINA - Baseline Cr 1-1.15 on review of records - Cr on admission 1.29 - Suspect prerenal and secondary to poor POintake - Continue IVF x 1L, hold home Lasix - Recheck BMP in AM Left hip pain - Patient with fall prior to arrival associated with her dizziness - XR not demonstrating acute fracture - Patient declines need for pain medication at this time - PT/OT ordered as noted above DM2 - Patient states that she typically uses dexcom but has been unable to use it recently - A1c 8.2% during admission in April - Continue with insulin basal bolus therapy - Goal 100-140, CF 30, CR 20 -- will tighten PRN 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 Neurology following and aware - See vertigo above - If LP returns WNL: wonder if patient may benefit from atypical antipsychotic therapy that can be trialed as outpatient / may also benefit her MDD Afib / HTN - Continue home metoprolol - Holding home lasix in setting of ALBINA - Continue home warfarin Depression - Continue home Effexor and Remeron DVT/PE, on chronic anticoagulation - INR therapeutic on admission at 2.6 (goal 2.0-3.0) - Continue home warfarin - Vitamin K given now in anticipation of LP - Daily INR Microcytic Anemia - Patient with chronic microcytic anemia since admission in February 2022, baseline Hgb 8.0-10.0 - Hgb on admission 9.0 which is at baseline - No concern for acute blood loss at this time - Suspect component of chronic disease - Continue to monitor Electrolyte Abnormality - Magnesium slightly low on admission at 1.6 - Replete and recheck Dispo: [facility] Diet: DM2, IVF with LR at 125 cc/hr x 1L DVT ppx: home warfarin Code status: FULL CODE (2) Diabetes mellitus type 2, uncontrolled, without complications: (3) Left hip pain: (4) Cryptococcal meningitis: (5) Hypertension: (6) Depression: (7) Electrolyte abnormality: (8) Pulmonary emboli: Admission and Anticipated Discharge Date Admission Date: July 06, 2022 Supervising Physician Co-Signing Physician Notes I personally examined the patient and verified all fish points of history and exam, discussed case, and agree with decision making with Dr Varela feeling OK laying down vitals noted nad heent nc at mmm breathing unlabored no accessory muscles good effort dizziness/falls - narrowing focus to just acute, her whole situation would be c/w BPPV and dehydration, but acute symptoms, coupled with progressive/worsening hallucinations, in the context of ongoing treatment for cryptococcal meningitis (and she wasn't able to tolerate full dosing) - harboring concern on [employer] inflammation as culprit - LP tomorrow as long as INR acceptable. pt agrees. otherwise as above Subjective Feeling ok this morning. Unfortuantely not much sleep. Still feeling a little dizzy with head movements - this seems to be the major trigger compared to prior. Reviewed reason for admission - no significant history to add. No recent illnesses. Does feel like ears are full. No fevers, chills, sweats. Review of Systems Review of Systems: as per HPI Physical Exam Physical Exam: General: 62-year old female who is alert, oriented, and appears in no acute distress. HEENT: NCAT. - Eyes - Sclera are white, anicteric, and without injection. - Mouth - MMM - Neck - supple, no appreciable JVD Cardiac: Normal rate and regular rhythm; S1 and S2 present with no murmurs, rubs, or gallops. Pulmonary: Good respiratory effort with symmetric expansion of the chest. No use of accessory muscles. Lungs were clear to auscultation bilaterally with no crackles or wheezes. Abdominal: Normoactive bowel sounds. Abdomen was soft, nondistended, and non- tender to palpation. Extremities: Upper and lower extremities are warm and well perfused. No peripheral edema in the lower extremities bilaterally Psych: Well-developed, well-nourished, appropriately dressed for occasion. Behavior is cooperative and appropriate. Affect is WNL. Insight is appropriate. Neuro: - Cranial Nerves: CN I, IX, XIII, and X - not assessed. II - PERRL. III/IV/ - EOMs WNL. No nystagmus. V - Facial sensation in tact in all three divisions; jaw opening WNL. VII - Patient is able to smile symmetrically and keep eyes close against resistance. IX - Soft palate raises equally and appropriately while saying "ah." XI - Patient is able to shrug shoulders against resistance. XII - patient is able to stick out tongue and deviate from [id number] appropriately. - Motor: UE - Finger, wrist, elbow, and shoulder strength is 5/5 bilaterally. LE - Hip, knee, and ankle strength is 5/5 bilaterally. Results & Data Results & Data ([facility]) Vital Signs (Past 12 Hours) Vital Signs Temp Pulse Pulse Resp BP BP Pulse Ox 07/06/22 06:30 75 18 95/62 L 95 07/06/22 06:00 77 17 109/63 95 07/06/22 06:11 37.1 C 75 14 109/63 95 07/06/22 05:00 82 17 132/76 95 07/06/22 04:30 78 14 113/66 93 07/06/22 04:00 79 23 107/68 94 07/06/22 03:30 79 16 123/70 94 07/06/22 03:00 80 15 133/82 94 07/06/22 02:30 78 18 113/67 96 07/06/22 02:01 79 20 101/67 98 07/06/22 01:30 77 18 110/58 L 94 07/06/22 01:00 76 19 100/64 98 07/06/22 00:30 75 29 H 108/63 97 07/05/22 23:52 17 104/63 97 07/05/22 23:10 37.0 C 82 10 L 116/71 99 O2 Del Method 07/06/22 06:30 Room Air 07/06/22 06:00 Room Air 07/06/22 06:11 Room Air 07/06/22 05:00 Room Air 07/06/22 04:30 Room Air 07/06/22 04:00 Room Air 07/06/22 03:30 Room Air 07/06/22 03:00 Room Air 07/06/22 02:30 Room Air 07/06/22 02:01 Room Air 07/06/22 01:30 Room Air 07/06/22 01:00 Room Air 07/06/22 00:30 Room Air 07/05/22 23:52 Room Air 07/05/22 23:10 Room Air Resident Activity Tracking Resident Involvement: Resident Care Provided Care Provided: Adult Hospital Medicine (1) Depression Depression Type: unspecified Qualified Code(s): F32.9 - Major depressive disorder, single episode, unspecified (2) Hypertension Hypertension type: essential hypertension Qualified Code(s): I10 - Essential (primary) hypertension
[2022-07-06] MEDS: INSULIN ASPART PER UNIT SC SCH ×4 (07:41→21:18)
--- NOTE | 2022-07-06 08:20 | XRay Report ---
XR hip LT min 2V HISTORY: 62 years-old Female fall w/ L hip pain; hx L hip replacement acute left hip pain COMPARISON: CT abdomen and pelvis 06/13/2022 TECHNIQUE: 2 views of the left hip FINDINGS: Satisfactory alignment of the left hip total joint arthroplasty. No evidence of hardware loosening. N o acute fracture or dislocation. Unremarkable soft tissues. IMPRESSION: 1. No acute fracture or dislocation. 2. Unremarkable appearance of the left hip total joint arthroplasty. ACT 112: Negative or not required by law. The above report was generated using voice recognition software. It may contain grammatical, syntax o r spelling errors. Electronically signed by: Markos Tineo M.D. 07/06/2022 8:18 AM
[2022-07-06] MEDS: MAGNESIUM OXIDE 400 MG TAB PO SCH (09:20)
[2022-07-06] MEDS: FLUCONAZOLE 100 MG TAB PO SCH (09:20)
[2022-07-06] MEDS: PANTOprazole 40 MG TAB PO SCH ×2 (09:21→21:10)
[2022-07-06] MEDS: POTASSIUM CHLORIDE CRTAB 20 MEQ TABCR PO SCH (09:21)
[2022-07-06] MEDS: METOPROLOL SUCC 25MG EXT REL TAB PO SCH (09:21)
[2022-07-06] MEDS ORDERED: PHYTONADIONE 10 MG in DEXTROSE 5% 50 ML IV ONE (11:00)
[2022-07-06] MEDS: FLUTICASONE PROPIONATE NA SPR 16 GM BTL SCH (11:04)
--- NOTE | 2022-07-06 14:43 | Electrocardiogram Report ---
Test Reason : Blood Pressure : / mmHG Vent. Rate : 081 BPM Atrial Rate : 081 BPM P-R Int : 144 ms QRS Dur : 108 ms QT Int : 414 ms P-R-T Axes : 060 -53 032 degrees QTc Int : 480 ms Normal sinus rhythm Incomplete right bundle branch block Left anterior fascicular block Nonspecific ST abnormality Abnormal ECG When compared with ECG of 14-JUN-2022 05:42, No significant change was found Confirmed by Joe Seaman ([id number]) on 07/06/2022 2:42:40 PM Referred By: REFERRED SELF Confirmed By:Joe Seaman
[2022-07-06] MEDS ORDERED: WARFARIN SOD 2 MG TAB PO SCH (16:00)
[2022-07-06] MEDS: VENLAFAXINE HCL XR 150 MG CAPXR PO SCH (21:10)
[2022-07-06] MEDS: MIRTAZAPINE TAB 15 MG TAB PO SCH (21:10)
[2022-07-06] MEDS: LANTUS PER UNIT CHARGE SQ SCH (21:19)
--- NOTE | 2022-07-06 21:36 | Billing Data ---
Date of Service July 06, 2022 Coding Level of Care Code INT OBSERVATION CARE 70M LVL 3
[2022-07-06] MEDS ORDERED: Nursing to Pharmacy Communication SCH (23:15)
[2022-07-07] MEDS ORDERED: D5W AND NSS 1,000 ML IV SCH (00:45)
[2022-07-07] MEDS: INSULIN ASPART PER UNIT SC SCH ×5 (00:59→21:12)
--- NOTE | 2022-07-07 06:42 | Hospitalist Progress Note ---
Date of Service July 07, 2022 Assessment & Plan (1) Vertigo: Plan: Patient is a a 62yo female with a PMHx including nephrolithiasis, cirrhosis, DVT and PE on Warfarin, prolonged QTC, DM2, atrial fibrillation, mitral regurgitation, cryptococcal meningitis, NAFLD, IBS, HLD, and HTN, who presented to [facility] ER on 07/06/22 admitted for vertigo. Primarily suspect vestibular origin, however, given increasing hallucinations and new-onset vertigo in the context of subtherapeutic treatment for cryptococcal meningitis, need to rule- out infectious recurrence. Vertigo - Patient reports acute vertigo that began morning of admission with subseque nt/resultant fall - Head CT: No acute findings - Given positional nature of this, BPPV / inner ear etiology like labrynthitis is a strong possibility. LP demonstrating remarkable improvements compared to prior - however, still with elevated WBCs and protein in CSF --> Check MRI brain w/ contrast --> Appreciate ID consultation as to whether or not this could be c/w smoldering infection and if higher dose of fluconazole vs. other IV antifungals and/or further CSF studies are needed - Received Meclizine in ER - more PRN - Continue IVF - PT/OT ordered - could consider vestibular PT after discharge ALBINA - Baseline Cr 1-1.15 on review of records - Cr on admission 1.29 - largely unchanged on repeat labs - Suspect prerenal and secondary to poor PO intake - Continue mIVF - if no improvement despite this, check FENa - Recheck BMP in AM Cryptococcal meningitis - Diagnosed February 2022 - Continue home fluconazole (noted that this is subtherapeutic dosing d/t intolerance) - Follow up with neurology in outpatient setting as scheduled Visual Hallucinations - Developed in the post-meningitis period. Neurology following and aware. - LP as above; improved compared to prior, however, still abnormal - unable to r/o recurrence --> Appreciate ID consult as above --> MRI brain as above - Patient may benefit from atypical antipsychotic therapy that can be trialed as outpatient / may also benefit her MDD Left hip pain - Patient with fall prior to arrival associated with her dizziness - XR not demonstrating acute fracture - Patient declines need for pain medication at this time - PT/OT ordered as noted above DM2 - Patient states that she typically uses dexcom but has been unable to use it recently - A1c 8.2% during admission in April - Continue with insulin basal bolus therapy - Goal 100-140, CF 30, CR 20 -- will tighten PRN Afib / HTN - Continue home metoprolol - Holding home lasix in setting of ALBINA - Continue home warfarin Depression - Continue home Effexor and Remeron DVT/PE, on chronic anticoagulation - INR therapeutic on admission at 2.6 (goal 2.0-3.0) - Given LP: hold home Warfarin, resume following procedure - Daily INR Microcytic Anemia - Patient with chronic microcytic anemia since admission in February 2022, baseline Hgb 8.0-10.0 - Hgb on admission 9.0 which is at baseline - No concern for acute blood loss at this time - Suspect component of chronic disease - Continue to monitor Electrolyte Abnormality - Replete. Improving (Mg/K) Dispo: Admit to [facility] Diet: DM2, IVF with LR at 125 cc/hr DVT ppx: home warfarin on hold, resuming when appropriate Code status: FULL CODE (2) Diabetes mellitus type 2, uncontrolled, without complications: (3) Left hip pain: (4) Cryptococcal meningitis: (5) Hypertension: (6) Depression: (7) Electrolyte abnormality: (8) Pulmonary emboli: Admission and Anticipated Discharge Date Admission Date: July 06, 2022 Supervising Physician Co-Signing Physician Notes I personally examined the patient and verified all fish points of history and exam, discussed case, and agree with decision making with Dr Varela less dizzy no hallucinations since admission notes that she doesn't drink enough fluids at home vitals noted nad heent nc at mmm breathing unlabored no accessory muscles good effort dizziness/falls/hallucinations - appears to be combination of ongoing inflammation from cryptococcal meningitis (still under treatment) and dehydration - main question really is ?cryptococcal infection getting better and just needs more time/treatment/supportive care, or is it smoldering/not going away -- ID input will be greatly appreciated, MRI pending otherwise as above Subjective NAEO. Review of Systems Review of Systems: as per HPI Physical Exam Physical Exam: General: 62-year old female who is alert, oriented, and appears in no acute distress. HEENT: NCAT. - Eyes - Sclera are white, anicteric, and without injection. - Mouth - MMM - Neck - supple, no appreciable JVD Cardiac: Normal rate and regular rhythm; S1 and S2 present with no murmurs, rubs, or gallops. Pulmonary: Good respiratory effort with symmetric expansion of the chest. No use of accessory muscles. Lungs were clear to auscultation bilaterally with no crackles or wheezes. Abdominal: Normoactive bowel sounds. Abdomen was soft, nondistended, and non- tender to palpation. Extremities: Upper and lower extremities are warm and well perfused. No peripheral edema in the lower extremities bilaterally Psych: Well-developed, well-nourished, appropriately dressed for occasion. Behavior is cooperative and appropriate. Affect is WNL. Insight is appropriate. Neuro: - Cranial Nerves: CN I, IX, XIII, and X - not assessed. II - PERRL. III/IV/ - EOMs WNL. No nystagmus. V - Facial sensation in tact in all three divisions; jaw opening WNL. VII - Patient is able to smile symmetrically and keep eyes close against resistance. IX - Soft palate raises equally and appropriately while saying "ah." XI - Patient is able to shrug shoulders against resistance. XII - patient is able to stick out tongue and deviate from [id number] appropriately. - Motor: UE - Finger, wrist, elbow, and shoulder strength is 5/5 bilaterally. LE - Hip, knee, and ankle strength is 5/5 bilaterally. Results & Data Results & Data ([facility]) Vital Signs (Past 12 Hours) Vital Signs Temp Pulse Resp BP Pulse Ox O2 Del Method 07/06/22 19:10 36.7 C 68 16 119/75 97 Room Air Resident Activity Tracking Resident Involvement: Resident Care Provided Care Provided: Adult Hospital Medicine (1) Depression Depression Type: unspecified Qualified Code(s): F32.9 - Major depressive disorder, single episode, unspecified (2) Hypertension Hypertension type: essential hypertension Qualified Code(s): I10 - Essential (primary) hypertension
[2022-07-07 07:05] LABS: Basophils # (auto) 0.03 K/uL (0-0.2); Basophils % (auto) 0.6 %; Eosinophils # (auto) 0.26 K/uL (0-0.50); Eosinophils % (auto) 5.4 %; Hematocrit (blood only) 25.7 % (34.1-44.9); Hemoglobin 8.2 g/dl (12.0-16.0); Immature Granulocytes # (auto) 0.04 K/uL (0.00-0.02); Immature Granulocytes % (auto) 0.8 %; Lymphocytes # (auto) 2.03 K/uL (1.2-3.4); Lymphocytes % (auto) 41.9 %; Mean Platelet Volume 11.5 fL (9.4-12.3); Monocytes # (auto) 0.32 K/uL (0.24-0.82); Monocytes % (auto) 6.6 %; Neutrophils # (auto) 2.16 K/uL (1.4-6.5); Neutrophils % (auto) 44.7 %; Platelet Count 124 K/uL (130-400); White Blood Count 4.84 K/ul (4.8-10.8)
[2022-07-07 07:14] LABS: INR 1.4 (0.9-1.1); Prothrombin Time 14.5 Seconds (9.0-12.0)
[2022-07-07 07:26] LABS: Mean Corpuscular Hemoglobin 25.6 pg (25.0-34.0); Mean Corpuscular Hgb Conc 31.9 g/dL (32.0-36.0); Mean Corpuscular Volume 80.3 fL (80.0-100.0); RDW Coefficient of Variation 18.9 % (11.5-14.5); RDW Standard Deviation 55.1 fL (36.4-46.3)
[2022-07-07 07:32] LABS: BUN Creatinine Ratio 20.9 (10-20); Bilirubin,Total 0.4 mg/dl (0.2-1.0); Calcium 8.6 mg/dl (8.5-10.1); Creatinine Clr Calc Pharmacy 38.5 ml/min; Magnesium 1.6 mg/dl (1.7-2.4); Potassium 3.4 mmol/L (3.5-5.1)
[2022-07-07] MEDS: MAGNESIUM OXIDE 400 MG TAB PO SCH (08:46)
[2022-07-07] MEDS: FLUCONAZOLE 100 MG TAB PO SCH (08:47)
[2022-07-07] MEDS: METOPROLOL SUCC 25MG EXT REL TAB PO SCH (08:48)
[2022-07-07] MEDS: PANTOprazole 40 MG TAB PO SCH ×2 (08:48→21:03)
[2022-07-07] MEDS: POTASSIUM CHLORIDE CRTAB 20 MEQ TABCR PO SCH (08:49)
[2022-07-07] MEDS: FLUTICASONE PROPIONATE NA SPR 16 GM BTL SCH (08:56)
--- NOTE | 2022-07-07 08:59 | Fluoroscopy Report ---
FLUOROSCOPICALLY GUIDED LUMBAR PUNCTURE CLINICAL HISTORY: crypto meningitis; worse hallucinations, vertigo FLUOROSCOPY TIME: 0.3 minutes NUMBER OF FLUOROSCOPIC IMAGES: 1 PROCEDURE: The procedure, risks and benefits were discussed with the patient including the risk of s aline headache, bleeding and infection. The patient agreed to the procedure and informed written cons ent was obtained. The procedure was performed by Dr. Burden following a timeout. The right L4-L5 i nterlaminar space was targeted. Skin overlying the space was prepped and draped in sterile fashion an d local anesthesia was achieved with 1% lidocaine. Under intermittent fluoroscopic guidance, a 3 1/2 inch 22-gauge spinal needle was directed into the thecal sac. CSF was slightly blood-tinged but quick ly clear. A cc of cerebrospinal fluid was collected in 4 vials and sent to the laboratory as ordered. The needle was removed. Patient tolerated the procedure well and no immediate complications were betty dent. IMPRESSION: Successful fluoroscopically guided lumbar puncture with collection of 8 cc of cerebrospin al fluid. CSF initially blood-tinged but quickly cleared. ACT 112: Negative or not required by law. Electronically signed by: Godwin Burden M.D. 07/07/2022 8:58 AM
[2022-07-07 09:02] LABS: CSF Glucose 56 mg/dl (40-70)
[2022-07-07 09:07] LABS: CSF Count Tube # 3
[2022-07-07 09:09] LABS: Appearance CSF Clear; CSF Xanthrochromic No xanthochromia; Color CSF Colorless
[2022-07-07 09:10] LABS: Red Blood Cell CSF (A) 32 /uL (0-); White Blood Cell CSF (A) 8 /uL (0-5)
[2022-07-07] MEDS ORDERED: LACTATED RINGER'S 1,000 ML IV SCH (09:15)
[2022-07-07 09:16] LABS: CSF Chemistry Tube # 1
--- NOTE | 2022-07-07 15:31 | Infectious Disease Consult ---
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 Infectious diseases has been consulted regarding evaluation of possible reinfection with cryptococcal meningitis. I spoke with primary team Recommend: -Serum cryptococcal antigen -Await CSF studies -MRI of brain results -Agree with Fluconazole 400mg daily ID will see patient live tomorrow to further delineate workup. Thank you for this consultation, ID will follow. Dary Ray MD [facility], [facility] Consultation Information This patient recommendation is based on a telemedicine consult request which was completed asynchronously through chart review and information provided by the primary physician. The patient was not seen or examined today. The evaluation is consultative in nature and all patient care and treatment decisions can either be accepted or rejected by the patient's primary hospital-based treating physician using their own independent medical judgment for their patient. Pathology Transcriptionist contact information: Please call [facility] Connect Call Center . (Phone Number For Physician Use Only) Time Spent Reviewing Chart: 31+ minutes History of Present Illness Reason for Consultation: Evaluation of cryptococcus meningitis Requesting Physician: Dr. 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 Infectious diseases has been consulted regarding evaluation of possible reinfection with cryptococcal meningitis. She was admitted 02/2022 to [facility] with several days of headache. An LP was done by ED physician which showed 320 WBCs and only 22 RBCs.during that time and grew cryptococcus, PCR positive for cryptococcus. Patient was initially treated with liposomal Amphotericin B and fluconazole. The [facility] was consulted and flucytosine was added (fluc dcd). She received a 2 week induction therapy (03/02-03/16). On 03/12/2022 the patient had worsening headache and lumbar puncture was repeated. She was then transferred to the [facility]. The patient finished out treatment with amphotericin and flucytosine. She was then placed on fluconazole 400 mg daily (with intention to treat through 05/12, then decrease to 200mg for 1 year). She presented to [facility] on 04/19 with dyspnea, dx with pulmonary emboli and left peroneal DVT. Hospital evaluation also showed QT prolongation to 590. She was also having GI intolerance and Her fluconazole was decreased to 200mg daily. HIV Ab negative 03/02/22, Serum Cryptococcal antigen negative 03/05/22. LPs 03/01 WBC 320, RBC 22,m protein 108, CSF cx cryptococcus neoformans, PCR+ LP 03/05 WBC 266, RBC 2, protein 79 LP 03/12 WBC 312, RBC 4, protein 106 Patient had an additional hospitalization for hydronephrosis/nephrolithiais. Most recently Per EMR, patient was at home and legs gave out on her. She c/o dizziness with room spinning. She also c/o visual hallucinations. In the ED, patient was hemodynamically stable. Admission labs revealed WBC 6.7, Hgb 9.0 (at baseline). INR therapeutic at 2.6, Cr 1.29 (baseline 1), AST/ALT 31/16 Aphos 136. She was given IV fluids, meclizine. CT head negative for acute process. An LP on 07/07: CSF WBC 8, 32 RBCs, Protein 62, gram stain few WBCs, no organisms. CSF cx P. CSF fungal cx in lab. Fluconazole dosing was increased to 400mg. MRI brain ordered. ID was consulted today to review LP results and evaluate for cryptococcal meningitis. Allergies Allergy/AdvReac Type Severity Reaction Status Date / Time Penicillins Allergy Intermediate Hives Verified 07/06/22 02:18 atorvastatin Allergy Unknown CAN'T Verified 07/06/22 02:18 REMEMBER gemfibrozil [From Lopid] Allergy Unknown CAN'T Verified 07/06/22 02:18 REMEMBER acetaminophen [From Tylenol] AdvReac Severe CAN NOT Verified 07/06/22 02:18 TAKE D/T LIVER ISSUES ibuprofen AdvReac Severe liver Verified 07/06/22 02:18 issues rosuvastatin AdvReac Intermediate Muscle Pain Verified 07/06/22 02:18 Home Medications Medication Instructions Recorded Confirmed Type multivitamin 1 tab PO QAM 09/07/19 07/06/22 History Contour Next Test Strips (blood #300 ea 12/29/20 07/06/22 Rx sugar diagnostic) blood-glucose sensor (Dexcom G6 #3 ea 01/22/21 07/06/22 History Sensor device) blood-glucose transmitter (Dexcom #1 ea 01/22/21 07/06/22 History G6 Transmitter device) venlafaxine 150 mg 300 mg PO HS #180 caps 07/01/21 07/06/22 Rx capsule,extended release 24 hr (Effexor XR) acetone (urine) test (Ketostix #50 ea 10/14/21 07/06/22 Rx strips) pen needle, diabetic 32 gauge x #120 ea 11/06/21 07/06/22 Rx 5/32" (BD Ultra-Fine Jody Pen Needle) metoprolol succinate 25 mg 25 mg PO QAM #90 tabs 04/16/22 07/06/22 Rx tablet,extended release 24 hr fluconazole 100 mg tablet 200 mg PO QAM #30 tabs 04/22/22 07/06/22 Rx pantoprazole 40 mg tablet,delayed 40 mg PO BID #60 tabs 05/10/22 07/06/22 Rx release furosemide 20 mg tablet 20 mg PO DAILY #30 tabs 05/26/22 07/06/22 Rx magnesium oxide 400 mg (241.3 mg 400 mg PO QAM #90 tabs 06/04/22 07/06/22 Rx magnesium) tablet potassium chloride 20 mEq 20 meq PO DAILY #30 tabs 06/05/22 07/06/22 Rx tablet,extended release insulin glargine 100 unit/mL (3 68 unit (0.68 mL) subcut QPM #62 mL 06/17/22 07/06/22 Rx mL) subcutaneous pen (Lantus Solostar U-100 Insulin) mirtazapine 30 mg tablet 30 mg PO HS #90 tabs 06/18/22 07/06/22 Rx blood-glucose meter (OneTouch #1 ea 06/28/22 07/06/22 Rx Verio Flex Meter) insulin aspart U-100 100 unit/mL See Rx Instructions subcut TIDM 06/29/22 History (3 mL) subcutaneous pen warfarin 1 mg tablet 0 mg PO DAILY 07/06/22 07/06/22 History Patient History Medical History Anxiety Cirrhosis of liver FOLLOWS W/ [facility] Stable currently Cryptococcal meningitis Depression Diabetes mellitus, type 2 IDDM Glucose fluctuates - since Covid in December 2020 On insulin pump Follows with endocrinology Dyslipidemia Hematemesis History of COVID-12 January 2021 > [facility], not hospitalized, fever, ear pain- did give infusion in ER No current issues Hypertension IBS (irritable bowel syndrome) Stable Insomnia Kidney stones FOLLOWS WITH DR FUCHS No current issues - monitoring currently Vertigo Surgical History History of cystoscopy WITH STENTS AND STONE BASKETING History of lithotripsy History of tonsillectomy and adenoidectomy History of total hip arthroplasty LEFT Hx laparoscopic cholecystectomy Hx of colonoscopy Hx of surgical amputation of finger left pinky Hx of total hysterectomy GERALD WITH BSO Hx of tubal ligation Hx of wisdom tooth extraction Status post Dupuytren's fasciectomy Status post total hip replacement, left Family History Father , age 75 Family history of diabetes mellitus Coronary heart disease Brother Family history of diabetes mellitus Mother , age 67 Family history of diabetes mellitus Heart disease Hypertension Grandfather (Paternal) Family history of diabetes mellitus Grandmother (Paternal) Family history of diabetes mellitus Denies family history of Ovarian cancer Breast cancer Colorectal cancer Social History Smoking Status: Never smoker Cigarettes Per Day: 06/2018; Number of Years Since Quit: 4; Second Hand Exposure: No; Do You Dip or Chew Tobacco: No; Hx Alcohol Use: No Hx Substance Use: No Preferred Language: Belarusian Communication Ability: Effective Visual Impairment: No Limitations Pricing Strategist Required: No Beliefs That Will Affect Care: None marital status: Current Living Situation: Alone Current Living Situation Comment: alone current occupational status: employed and disabled 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- insurance helps How many Children do You have: 2 Feels Safe at Home: Yes Safety Concerns: Feels Safe At This Time Childhood Exposure to Second-Hand Smoke: No caffeine: Yes Dental Care, Regularly: No Physical Activity Frequency: Does not Exercise Seatbelt Use: always Sunscreen Use: Yes Assistive Devices: Glasses Results & Data ([facility]) Vital Signs (Past 12 Hours) Vital Signs Temp Pulse Resp BP Pulse Ox O2 Del Method 07/07/22 14:50 36.8 C 73 16 129/71 96 Room Air 07/07/22 07:14 36.6 C 70 16 120/70 94 Room Air Laboratory Results Laboratory Tests 07/07/22 07/07/22 07/07/22 06:39 06:39 08:16 WBC 4.84 Hgb 8.2 L Hct 25.7 L Plt Count 124 L Sodium 140 Potassium 3.4 L Creatinine 1.29 H Glucose 120 H AST 31 ALT 16 Alkaline Phosphatase 136 H CSF Appearance CSF Color Xanthrochromic CSF WBC CSF RBC CSF Cell Count Tube # CSF Chemistry Tube # 1 CSF Glucose 56 CSF Lactate CSF Total Protein 07/07/22 07/07/22 07/07/22 08:16 08:16 08:16 WBC Hgb Hct Plt Count Sodium Potassium Creatinine Glucose AST ALT Alkaline Phosphatase CSF Appearance Clear CSF Color Colorless Xanthrochromic No xanthochromia CSF WBC 8 H CSF RBC 32 CSF Cell Count Tube # 3 CSF Chemistry Tube # CSF Glucose CSF Lactate 1.6 CSF Total Protein 62.7 H Medications Administered Medications Fluconazole (Fluconazole 100 Mg Tab) 400 mg PO QAM HALEY Stop: 07/18/22 08:59 Venlafaxine HCl (Venlafaxine Hcl Xr 150 Mg Capxr) 300 mg PO HS HALEY Stop: 08/05/22 20:59 Mirtazapine (Mirtazapine Tab 15 Mg Tab) 30 mg PO HS HALEY Stop: 08/05/22 20:59 Warfarin Sodium (Warfarin Sod 2 Mg Tab) 2 mg PO DAILY@1600 HALEY Stop: 08/05/22 15:59 Insulin Glargine (Lantus Per Unit Charge) 68 units SQ QPM HALEY Stop: 08/05/22 20:59 ECG Additional Comments: Vent. Rate : 081 BPM Atrial Rate : 081 BPM P-R Int : 144 ms QRS Dur : 108 ms QT Int : 414 ms P-R-T Axes : 060 -53 032 degrees QTc Int : 480 ms Normal sinus rhythm Incomplete right bundle branch block Left anterior fascicular block Nonspecific ST abnormality Abnormal ECG When compared with ECG of 14-JUN-2022 05:42, No significant change was found Confirmed by Joe Seaman ([id number]) on 07/06/2022 2:42:40 PM
--- NOTE | 2022-07-07 16:36 | Billing Data ---
Date of Service July 07, 2022 Coding Level of Care Code 67197 Subseq Obs Care Lvl 3
[2022-07-07] MEDS ORDERED: GADOBUTROL 65ML VIAL IV ONE (19:05)
[2022-07-07] MEDS: MIRTAZAPINE TAB 15 MG TAB PO SCH (21:03)
[2022-07-07] MEDS: VENLAFAXINE HCL XR 150 MG CAPXR PO SCH (21:03)
[2022-07-07] MEDS: LANTUS PER UNIT CHARGE SQ SCH (21:22)
--- NOTE | 2022-07-08 06:41 | Hospitalist Progress Note ---
Date of Service July 08, 2022 Assessment & Plan (1) Vertigo: Plan: Patient is a a 62yo female with a PMHx including nephrolithiasis, cirrhosis, DVT and PE on Warfarin, prolonged QTC, DM2, atrial fibrillation, mitral regurgitation, cryptococcal meningitis, NAFLD, IBS, HLD, and HTN, who presented to [facility] ER on 07/06/22 admitted for vertigo. Primarily suspect vestibular origin, however, given increasing hallucinations and new-onset vertigo in the context of subtherapeutic treatment for cryptococcal meningitis, need to rule- out infectious recurrence. Acute-onset Vertigo - Patient reports acute vertigo that began morning of admission with subsequent/resultant fall - Head CT: No acute findings - MRI w/ Contrast (as part of meningitic w/u): "Leptomeningeal enhancement seen within the cerebellum likely corresponding to the patient's history of meningitis." - Suspect possible relationship with resolving TAX INVESTIGATOR inflammation. Inner ear etiology compounded by dehydration also considered given subjective ear full ness, serous otitis appreciated on exam, and improvement with mIVF alone. - Meclizine PRN - Flonase daily HALEY - ID consult appreciated, following Hallucinations -- patient reporting visual, auditory, and tactile hallucinations prior to admission, none while here - Developed in the post-meningitis period - LP as above; improved compared to prior, however, still abnormal - unable to r/o recurrence - MRI as above - Primarily suspect secondary to residual TAX INVESTIGATOR inflammation from previous cryptococcal meningitis - also on DDX is smoldering ongoing infection vs. psychotic-related disorder (eg SZD) --> ID consult appreciated - Patient may benefit from atypical antipsychotic therapy that can be trialed as outpatient / may also benefit her MDD 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 - Restart fluconazole 400mg daily (from 200mg) -- adjust warfarin dosing PRN (fluconazole is an inhibiter of CYPs) - LP taken after admission demonstrating 8 WBCs, total protein at 67 - much improved compared to prior, but still elevated - Cryptococcal CSF and serum studies pending; gram stain negative, few WBCs seen - ID consulted: appreciate input on whether or not vertigo/hallucinations may represent smoldering infection in the setting of her LP, vs. resolving inflammation - and if any further labs/RX modification are needed - Follow up with neurology in outpatient setting as scheduled DVT/PE, on chronic anticoagulation - INR therapeutic on admission at 2.6 (goal 2.0-3.0) -- decreased to 1-1.4 following IV Vitamin K for procedure - Given fluconazole initiation, which is an inhibitor of CYPs, will likely require lower daily dose - INR now in low 1 range -- give Warfarin 4mg x 1 on 07/08, resume 2mg daily dose beginning 07/09 - Daily INR ALBINA -- Resolved - Baseline Cr 1-1.15 on review of records - Cr on admission 1.29 - daily labs revealing notable improvement, back to baseline following IVF. - Suspect prerenal and secondary to poor PO intake - Monitor BMP Left hip pain - Patient with fall prior to arrival associated with her dizziness - XR not demonstrating acute fracture - Patient declines need for pain medication at this time - PT/OT ordered as noted above DM2 - Patient states that she typically uses dexcom but has been unable to use it recently - A1c 8.2% during admission in April - Continue with insulin basal bolus therapy --> Reduce Lantus from 68 -> 45 on 07/08 given subjective feelings of hypoglycemia with values in the 70-80 range at night - Goal 100-140, CF 30, CR 20 -- will tighten PRN Afib / HTN - Continue home metoprolol - Holding home lasix in setting of ALBINA - Continue home warfarin - see above Depression - Continue home Effexor and Remeron Microcytic Anemia - Patient with chronic microcytic anemia since admission in February 2022, baseline Hgb 8.0-10.0 - Hgb on admission 9.0 which is at baseline - No concern for acute blood loss at this time - Suspect component of chronic disease - Continue to monitor Electrolyte Abnormality - Replete. Improving (Mg/K) Dispo: Admit to medsurg Diet: DM2 DVT ppx: home warfarin Code status: FULL CODE (2) Diabetes mellitus type 2, uncontrolled, without complications: (3) Left hip pain: (4) Cryptococcal meningitis: (5) Hypertension: (6) Depression: (7) Electrolyte abnormality: (8) Pulmonary emboli: Admission and Anticipated Discharge Date Admission Date: July 06, 2022 Subjective Feeling well this AM. No complaints. Feels that dizziness has mostly resolved. No discoordination with ambulation. No n/v. No hallucinations while here. Patient endorses tactile, auditory, and visual hallucinations - mostly in the form of dogs - at home. Again, none while here. None are really distressing to her overall. Review of Systems Review of Systems: as per HPI Physical Exam Physical Exam: General: 62-year old female who is alert, oriented, and appears in no acute distress. HEENT: NCAT. - Eyes - Sclera are white, anicteric, and without injection. - Mouth - MMM - Neck - supple, no appreciable JVD Cardiac: Normal rate and regular rhythm; S1 and S2 present with no murmurs, rubs, or gallops. Pulmonary: Good respiratory effort with symmetric expansion of the chest. No use of accessory muscles. Lungs were clear to auscultation bilaterally with no crackles or wheezes. Abdominal: Normoactive bowel sounds. Abdomen was soft, nondistended, and non- tender to palpation. Neuro: CN2-12 grossly in-tact. UE, LE strength 5/5. Sensation to light touch grossly in tact bilaterally in UE/LE. [id number] without dysmetria. Psych: Well-developed, well-nourished, appropriately dressed for occasion. Behavior is cooperative and appropriate. Affect is WNL. Insight is appropriate. Results & Data Results & Data ([facility]) Vital Signs (Past 12 Hours) Vital Signs Temp Pulse Resp BP Pulse Ox O2 Del Method 07/07/22 21:45 36.6 C 70 16 135/75 100 Room Air Resident Activity Tracking Resident Involvement: Resident Care Provided Care Provided: Adult Hospital Medicine (1) Depression Depression Type: unspecified Qualified Code(s): F32.9 - Major depressive di sorder, single episode, unspecified (2) Hypertension Hypertension type: essential hypertension Qualified Code(s): I10 - Essential (primary) hypertension
--- NOTE | 2022-07-08 08:13 | Magnetic Resonance Report ---
Brain MRI WITH AND WITHOUT CONTRAST HISTORY: recent FISH HEADER cryptococcus; new hallucinations + vertigo TECHNIQUE: Multiplanar multisequence MRI of the brain was performed both before and after the intrave nous administration of contrast. COMPARISON STUDY: Brain MRI 03/02/2022. FINDINGS: No areas of restricted diffusion to suggest an acute infarction. The midline structures are intact. There is no mass, hematoma, or midline shift. Scattered foci of T2 hyperintensity seen withi n the white matter of the supratentorial brain are again noted. These are similar to the prior study and favor microvascular ischemic change. The ventricles and sulci are within normal limits. Small pat david areas of enhancement within the cerebellum likely representing leptomeningeal enhancement. This w ould correspond with the patient's history of a meningitis. There is also faint FLAIR signal abnormal ity at the cerebellum. The paranasal sinuses and mastoid air cells are clear. The orbits are unremark able. IMPRESSION: Leptomeningeal enhancement seen within the cerebellum likely corresponding to the patient's history o f meningitis. ACT 112: Negative or not required by law. Electronically signed by: Coleman Teixeira M.D. 07/08/2022 8:12 AM
[2022-07-08] MEDS: PANTOprazole 40 MG TAB PO SCH (08:30)
[2022-07-08] MEDS: METOPROLOL SUCC 25MG EXT REL TAB PO SCH (08:30)
[2022-07-08] MEDS: MAGNESIUM OXIDE 400 MG TAB PO SCH (08:31)
[2022-07-08] MEDS: POTASSIUM CHLORIDE CRTAB 20 MEQ TABCR PO SCH (08:32)
[2022-07-08] MEDS: INSULIN ASPART PER UNIT SC SCH ×3 (08:44→18:06)
[2022-07-08 08:49] LABS: INR 1.2 (0.9-1.1); Prothrombin Time 12.4 Seconds (9.0-12.0)
[2022-07-08] MEDS ORDERED: FLUCONAZOLE 100 MG TAB PO SCH (09:00)
[2022-07-08] MEDS ORDERED: FLUTICASONE PROPIONATE NA SPR 16 GM BTL SCH (09:00)
[2022-07-08 09:04] LABS: BUN Creatinine Ratio 22.8 (10-20); Calcium 8.7 mg/dl (8.5-10.1); Creatinine Clr Calc Pharmacy 49.2 ml/min; Est GFR (African American) 68.6 ml/min; Est GFR (Non-African American) 59.2 ml/min; Potassium 3.5 mmol/L (3.5-5.1)
[2022-07-08] MEDS ORDERED: WARFARIN SOD 4 MG TAB PO SCH (16:00)
[2022-07-08 16:16] LABS: Appearance Urine Clear (Clear); Bacteria Urine Automated Negative (Negative); Bilirubin Urine Negative (Negative); Blood Urine Trace (Negative); Cast Urine Automated 0 /lpf (0-5); Color Urine Yellow; Glucose Urine UA Negative (Negative); Ketones Urine Negative (Negative); Leukocyte Esterase Urine Negative (Negative); Nitrite Urine Negative (Negative); Protein Urine Negative (Negative); Specific Gravity Urine 1.018 (1.000-1.030); Urobilinogen Urine Negative (Negative); pH Urine 6.5 (4.5-7.5)
--- NOTE | 2022-07-08 17:02 | Infectious Disease Consult ---
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 Infectious diseases has been consulted regarding evaluation of possible reinfection with cryptococcal meningitis. I spoke with primary team Recommend: -Serum cryptococcal antigen -Await CSF studies -MRI of brain results -Agree with Fluconazole 400mg daily ID will see patient live tomorrow to further delineate workup. Thank you for this consultation, ID will follow. Dary Ray MD [facility], [facility] Consultation Information Consultation was provided via telemedicine using two-way real-time interactive telecommunication between the patient and the telemedicine provider. For the duration of the visit, the provider was performing the assessment from a different facility than the patient. This includesuse of bluetooth stethoscope forauscultationperformed by the telepresenter that the telemedicine provider can hear if described in the physical exam. Photovoltaic Installer contact information: Please call [facility] Call Center [phone]. (Phone Number For Physician Use Only) After establishing a telemedicine visit, patient was: Patient was verified with two unique identifiers, Patient/authorized rep acknowledged consent and understanding and Gave permission to continue telehealth session History of Present Illness Attending Physician: Dominic Conn, Allergies Allergy/AdvReac Type Severity Reaction Status Date / Time Penicillins Allergy Intermediate Hives Verified 07/06/22 02:18 atorvastatin Allergy Unknown CAN'T Verified 07/06/22 02:18 REMEMBER gemfibrozil [From Lopid] Allergy Unknown CAN'T Verified 07/06/22 02:18 REMEMBER acetaminophen [From Tylenol] AdvReac Severe CAN NOT Verified 07/06/22 02:18 TAKE D/T LIVER ISSUES ibuprofen AdvReac Severe liver Verified 07/06/22 02:18 issues rosuvastatin AdvReac Intermediate Muscle Pain Verified 07/06/22 02:18 Home Medications Medication Instructions Recorded Confirmed Type multivitamin 1 tab PO QAM 09/07/19 07/06/22 History Contour Next Test Strips (blood #300 ea 12/29/20 07/06/22 Rx sugar diagnostic) blood-glucose sensor (Dexcom G6 #3 ea 01/22/21 07/06/22 History Sensor device) blood-glucose transmitter (Dexcom #1 ea 01/22/21 07/06/22 History G6 Transmitter device) venlafaxine 150 mg 300 mg PO HS #180 caps 07/01/21 07/06/22 Rx capsule,extended release 24 hr (Effexor XR) acetone (urine) test (Ketostix #50 ea 10/14/21 07/06/22 Rx strips) pen needle, diabetic 32 gauge x #120 ea 11/06/21 07/06/22 Rx 32" (BD Ultra-Fine Jody Pen Needle) metoprolol succinate 25 mg 25 mg PO QAM #90 tabs 04/16/22 07/06/22 Rx tablet,extended release 24 hr fluconazole 100 mg tablet 200 mg PO QAM #30 tabs 04/22/22 07/06/22 Rx pantoprazole 40 mg tablet,delayed 40 mg PO BID #60 tabs 05/10/22 07/06/22 Rx release furosemide 20 mg tablet 20 mg PO DAILY #30 tabs 05/26/22 07/06/22 Rx magnesium oxide 400 mg (241.3 mg 400 mg PO QAM #90 tabs 06/04/22 07/06/22 Rx magnesium) tablet potassium chloride 20 mEq 20 meq PO DAILY #30 tabs 06/05/22 07/06/22 Rx tablet,extended release insulin glargine 100 unit/mL (3 68 unit (0.68 mL) subcut QPM #62 mL 06/17/22 07/06/22 Rx mL) subcutaneous pen (Lantus Solostar U-100 Insulin) mirtazapine 30 mg tablet 30 mg PO HS #90 tabs 06/18/22 07/06/22 Rx blood-glucose meter (OneTouch #1 ea 06/28/22 07/06/22 Rx Verio Flex Meter) insulin aspart U-100 100 unit/mL See Rx Instructions subcut TIDM 06/29/22 07/06/22 History (3 mL) subcutaneous pen warfarin 1 mg tablet 0 mg PO DAILY 07/06/22 07/06/22 History fluconazole 200 mg tablet 400 mg PO DAILY 30 days #60 tabs 07/08/22 Rx meclizine 12.5 mg tablet 12.5 mg PO DAILY #30 tabs 07/08/22 Rx Patient History Medical History Anxiety Cirrhosis of liver FOLLOWS W/ [facility] Stable currently Cryptococcal meningitis Depression Diabetes mellitus, type 2 IDDM Glucose fluctuates - since Covid in December 2020 On insulin pump Follows with endocrinology Dyslipidemia Hematemesis History of COVID-12 January 2021 > [facility], not hospitalized, fever, ear pain- did give infusion in ER No current issues Hypertension IBS (irritable bowel syndrome) Stable Insomnia Kidney stones FOLLOWS WITH DR FUCHS No current issues - monitoring currently Vertigo Surgical History History of cystoscopy WITH STENTS AND STONE BASKETING History of lithotripsy History of tonsillectomy and adenoidectomy History of total hip arthroplasty LEFT Hx laparoscopic cholecystectomy Hx of colonoscopy Hx of surgical amputation of finger left pinky Hx of total hysterectomy GERALD WITH BSO Hx of tubal ligation Hx of wisdom tooth extraction Status post Dupuytren's fasciectomy Status post total hip replacement, left Family History Father , age 75 Family history of diabetes mellitus Coronary heart disease Brother Family history of diabetes mellitus Mother , age 67 Family history of diabetes mellitus Heart disease Hypertension Grandfather (Paternal) Family history of diabetes mellitus Grandmother (Paternal) Family history of diabetes mellitus Denies family history of Ovarian cancer Breast cancer Colorectal cancer Social History Smoking Status: Never smoker Cigarettes Per Day: 06/2018; Number of Years Since Quit: 4; Second Hand Exposure: No; Do You Dip or Chew Tobacco: No; Hx Alcohol Use: No Hx Substance Use: No Preferred Language: Greenlandic Communication Ability: Effective Visual Impairment: No Limitations Boil Off Worker Required: No Beliefs That Will Affect Care: None marital status: Current Living Situation: Alone Current Living Situation Comment: alone current occupational status: employed and disabled 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
--- NOTE | 2022-07-08 17:10 | Infectious Disease Progress Nt ---
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 Infectious diseases has been consulted regarding evaluation of possible reinfection with cryptococcal meningitis. She was admitted 02/2022 to [facility] with several days of headache. An LP was done by ED physician which showed 320 WBCs and only 22 RBCs.during that time and grew cryptococcus, PCR positive for cryptococcus. Patient was initially treated with liposomal Amphotericin B and fluconazole. [facility] was consulted and flucytosine was added (fluc dcd). She received a 2 week induction therapy (03/02-03/16). On 03/12/2022 the patient had worsening headache and lumbar puncture was repeated. She was then transferred to the [facility]. The patient finished out treatment with amphotericin and flucytosine. She was then placed on fluconazole 400 mg daily (with intention to treat through 05/12, then decrease to 200mg for 1 year). She presented to [facility] on 04/19 with dyspnea, dx with pulmonary emboli and left peroneal DVT. Hospital evaluation also showed QT prolongation to 590. She was also having GI intolerance and Her fluconazole was decreased to 200mg daily. HIV Ab negative 03/02/22, Serum Cryptococcal antigen negative 03/05/22. LPs 03/01 WBC 320, RBC 22,m protein 108, CSF cx cryptococcus neoformans, PCR+ LP 03/05 WBC 266, RBC 2, protein 79 LP 03/12 WBC 312, RBC 4, protein 106 Patient had an additional hospitalization for hydronephrosis/nephrolithiais. Most recently Per EMR, patient was at home and legs gave out on her. She c/o dizziness with room spinning. She also c/o visual hallucinations. In the ED, patient was hemodynamically stable. Admission labs revealed WBC 6.7, Hgb 9.0 (at baseline). INR therapeutic at 2.6, Cr 1.29 (baseline 1), AST/ALT 31/16 Aphos 136. She was given IV fluids, meclizine. CT head negative for acute process. An LP on 07/07: CSF WBC 8, 32 RBCs, Protein 62, gram stain few WBCs, no organisms. CSF cx P. CSF fungal cx in lab. Fluconazole dosing was increased to 400mg. MRI brain findings c/w LM enhancement. Discussion: Patient p/w auditory and visual hallucinations with dizziness. She states these have since resolved since admission. Prior to this she was quite active on her home, personally renovating it. She notes she was not eating or drinking well during that time. LP shows mildly abnormal WBC and protein elevation, significantly improved from prior LPs. Cx to date are negative. MRI is c/w LM enhancement. Her symptoms have now resolved without ID intervention. She appears back to baseline today. However we do have an abnormal LP and MRI. LM enhancement may be prolonged, I will review imaging with Radiology. I would ask we add C. neoformans PCR to CSF fluid Recommend -C/W fluconazole 400mg daily ? we will need to monitor QTc closely q2 weeks initially given h/o prolonged Qtc previously and monthly LFTs -Check CD4 level -Review imaging with Radiology -Add CSF Cryptococcus PCR, F/u Cultures Dary Ray MD [facility], [facility] Admission and Anticipated Discharge Date Admission Date: July 06, 2022 Subjective Subsequent visit was provided via telemedicine using two-way real-time interactive telecommunication between the patient and the telemedicine provider. For the duration of the visit, the provider was performing the assessment from a different facility than the patient. This includesuse of bluetooth stethoscope forauscultationperformed by the telepresenter that the telemedicine provider can hear if described in the physical exam. Digital Forensic Analyst contact information: Please call [facility] Call Center . (Phone Number For Physician Use Only) After establishing a telemedicine visit, patient was: Patient was verified with two unique identifiers, Patient/authorized rep acknowledged consent and understanding and Gave permission to continue telehealth session Patient states she is feeling better. Her dizziness (room spinning has resolved) Over the past month she has been renovating her home herself. She has been forgetting to eat and drink during this time. Oftentimes, she will finish at the end of day and realize she did not eat the whole day. During this time, she denies missing any doses of her fluconazole. She states around that same time she started seeing mice and dogs jumping in bed. She denies ever having visual hallucinations in past prior to this episode. She was also having auditory hallucinations of dogs barking. No headaches, no new neck stiffness. She is feeling good overall. Review of System as per subjective Physical Exam Constitutional: WD/WN, vitals as above Eyes: PERRL, conjunctivae normal, anicteric sclerae ENMT: external ear and nose normal, oropharynx normal Neck: trachea midline, no thyromegaly normal visual inspection; neck nontender, negative Brudzinski's sign, negative Kernig's sign, no nuchal rigidity and neck extension not limited Respiratory: normal respiratory effort, lungs clear to auscultation Cardiovascular: RRR, no murmur, no edema Musculoskeletal: no cyanosis or clubbing, extremities motor strength 5/5 Extremities: extremities normal to inspection and strength 5/5 throughout Skin: no rashes, warm and dry Neurologic: PERRL, EOMI, accommodation nl, no face palsy, no dysarthria CN's II-XI intact bilaterally, moves all extremities and awake; no focal motor deficits, no meningeal signs and not confused Speech / Cognition: normal speech Results & Data ([facility]) Vital Signs (Past 12 Hours) Vital Signs Temp Pulse Resp BP Pulse Ox O2 Del Method 07/08/22 14:34 36.9 C 77 16 127/70 96 Room Air 07/08/22 06:59 36.8 C 78 18 134/68 97 Room Air Laboratory Results Laboratory Tests 07/08/22 07:57 Creatinine 1.01 Spec: [id number] Collected: 07/07/22 Received: 07/07/[address]: Dominic Varela MD Copy To: Mary Cid DO Source: Cerebral Spinal Fluid OV Order: Ordered: CSF Cult/Smr Comments: Tube # to use for CSF Culture: Use Laboratory Protocol Procedure Result Verified Site Gram Stain Final 07/07/22 Gram Stain Result Few WBCs Seen No Organisms Seen CSF Culture Preliminary 07/08/22 No growth to date. 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 COMPARISON STUDY: Brain MRI 03/02/2022. FINDINGS: No areas of restricted diffusion to suggest an acute infarction. The midline structures are intact. There is no mass, hematoma, or midline shift. Scattered foci of T2 hyperintensity seen within the white matter of the supratentorial brain are again noted. These are similar to the prior study and favor microvascular ischemic change. The ventricles and sulci are within normal limits. Small patchy areas of enhancement within the cerebellum likely representing leptomeningeal enhancement. This would correspond with the patient's history of a meningitis. There is also faint FLAIR signal abnormality at the cerebellum. The paranasal sinuses and mastoid air cells are clear. The orbits are unremarkable. 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
--- NOTE | 2022-07-08 18:43 | Discharge Summary ---
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 Discharge Exam General she is awake and alert pleasant no distress. HEENT normocephalic atraumatic mucous membranes moist. Breathing unlabored no accessory muscle use good effort. Skin shows no rashes no pallor or icterus. Neuro without focal deficits. Mental status intact. Discharge Data Allergies Allergy/AdvReac Type Severity Reaction Status Date / Time Penicillins Allergy Intermediate Hives Verified 07/06/22 02:18 atorvastatin Allergy Unknown CAN'T Verified 07/06/22 02:18 REMEMBER gemfibrozil [From Lopid] Allergy Unknown CAN'T Verified 07/06/22 02:18 REMEMBER acetaminophen [From Tylenol] AdvReac Severe CAN NOT Verified 07/06/22 02:18 TAKE D/T LIVER ISSUES ibuprofen AdvReac Severe liver Verified 07/06/22 02:18 issues rosuvastatin AdvReac Intermediate Muscle Pain Verified 07/06/22 02:18 Consultations 07/06/22 03:02 ED Decision to Admit Stat 07/07/22 13:58 Consult Infectious Diseases Routine Ordered Studies 07/05/22 23:46 CT head/brain wo con Urgent 07/07/22 08:00 FL lumbar puncture diagnostic Routine 07/07/22 14:05 MR brain wo/w con Routine Hospital Course (1) Vertigo: [facility], [id number] Hospitalist Progress Note Signed Patient:DULCE HUDSON Admit Date:07/06/22 MR#:[id number] Att Phy:Dominic Conn D.O. Acct ID:[id number] Dee Phy:Leia Doyle DO Date:1960 Fam Phy: Age:62 Location:3N Sex:F Room/Bed:792 cc: ~ *NOTICE TO RECEIVING DEMOCRAT/AGENCY This information is strictly Confidential and protected under [place] law. [place] law prohibits you from making any further disclosure of this information unless further disclosure is expressly permitted by the written consent of the person to whom it pertains or is authorized by law. A general authorization for the release of medical or other information is not sufficient for this purpose. Hospital accepts no responsibility if the information is made available to any other person, INCLUDING THE PATIENT. Date of Service July 08, 2022 Assessment & Plan (1) Vertigo: Plan: Patient is a a 62yo female with a PMHx including nephrolithiasis, cirrhosis, DVT and PE on Warfarin, prolonged QTC, DM2, atrial fibrillation, mitral regurgitation, cryptococcal meningitis, NAFLD, IBS, HLD, and HTN, who presented to [facility] on 07/06/22 admitted for vertigo. Primarily suspect vestibular origin, however, given increasing hallucinations and new-onset vertigo in the context of subtherapeutic treatment for cryptococcal meningitis, need to rule- out infectious recurrence. Acute-onset Vertigo - Patient reports acute vertigo that began morning of admission with subsequent/resultant fall - Head CT: No acute findings - MRI w/ Contrast (as part of meningitic w/u): "Leptomeningeal enhancement seen within the cerebellum likely corresponding to the patient's history of meningitis." - Suspect possible relationship with resolving [employer] inflammation. Inner ear etiology compounded by dehydration also considered given subjective ear f ullness, serous otitis appreciated on exam, and improvement with mIVF alone. - Meclizine PRN - Flonase daily HALEY - ID consult appreciated, following - will need ID f/u as outpt Hallucinations--patient reporting visual, auditory, and tactile hallucinations prior to admission, none while here - Developed in the post-meningitis period - LP as above; improved compared to prior, however, still abnormal - unable to r/o recurrence - MRI as above - Primarily suspect secondary to residual [employer] inflammation from previous cryptococcal meningitis with superimposed dehydration making situation worse --> ID consult appreciated - between age of onset, and no withdrawn or paranoid sx highly doubt primary psychosis pathology 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 - Restart fluconazole 400mg daily (from 200mg) -- adjust warfarin dosing PRN (fluconazole is an inhibiter of CYPs) - LP taken after admission demonstrating 8 WBCs, total protein at 67 - much improved compared to prior, but still elevated - Cryptococcal CSF and serum studies pending; gram stain negative, few WBCs seen - ID consulted: nothing at this point appearing clearly failing Rx - would rec increase fluconazole back to 400 (follow INR and QTC closely), repeat CD4 - Follow up with neurology in outpatient setting as scheduled DVT/PE,on chronic anticoagulation - INR therapeutic on admission at 2.6 (goal 2.0-3.0) -- decreased to 1-1.4 following IV Vitamin K for procedure - Given fluconazole initiation, which is an inhibitor of CYPs, might require lower daily dose - coumadin resumed - follow INR closely as outpt ALBINA -- Resolved - Baseline Cr 1-1.15 on review of records - Cr on admission 1.29 - daily labs revealing notable improvement, back to baseline following IVF. - Suspect prerenal and secondary to poor PO intake - encouraged PO fluids // monitoring PO fluids and recording intake (goal ~60- 80oz per day) Left hip pain - Patient with fall prior to arrival associated with her dizziness - XR not demonstrating acute fracture - Patient declines need for pain medication at this timee DM2 - Patient states that she typically uses dexcom but has been unable to use it recently - A1c 8.2% during admission in April - outpt f/u Afib / HTN - home on home meds, close following of INR Depression - Continue home Effexor and Remeron Microcytic Anemia - Patient with chronic microcytic anemia since admission in February 2022, baseline Hgb 8.0-10.0 - Hgb on admission 9.0 which is at baseline - No concern for acute blood loss at this time - Suspect component of chronic disease - Continue to monitor periodically as an outpt (2) Diabetes mellitus type 2, uncontrolled, without complications: (3) Left hip pain: (4) Cryptococcal meningitis: (5) Hypertension: (6) Depression: (7) Electrolyte abnormality: (8) Pulmonary emboli: Total Time Total Time Spent Total Time Spent (In Minutes): <30 Discharge Plan Discharge Items Patient Disposition: Home - Self-Care Reason For Visit: VERTIGO Discharge Diagnosis: vertigo Activity: Per Instructions section Non-emergency contact: Primary Care Provider and Specialist Call non-emergency contact if: you have any medication questions, your symptoms worsen and your temperature is above 101 Follow-up/Referrals: Leia Doyle DO [Primary Care Provider] - Diet: Carb Consistent or DM2 Ambulatory Orders: Prothrombin Time INR (Routine) Timeframe: 5 Days Location: Determined by Patient Ordered By: Dominic Varela Addtl Attending Provider Instructions: You are seen in [facility] for evaluation of dizziness. Upon arrival here, you underwent several tests to determine the cause your symptoms. Given your recent case of meningitis, you did undergo repeat lumbar puncture as well as MRI. While these demonstrated notable improvements compared to your prior values in February, they did still show evidence of immune cell activity. It is likely that this represents residual inflammation from your previous infection. However, will be important to continue antifungals. You were followed by an infectious disease doctor while here who helped to create this plan. (we apologize for getting you home so late - it took a while to get the formal recommendations from the infectious disease doctor) Upon your discharge, please note the following medication additions/changes /deletions: Fluconazole 400 mg daily (200 mg daily previously -dose increased) Meclizine 12.5 mg as needed for vertigo Take warfarin 4 mg for the next 2 days, then resume 2 mg dose; this will be adjusted based on your INR. Please follow-up with your primary care physician within the next 1 to 2 weeks to review this visit. Have and EKG done weekly to monitor with the increased dose of fluconazole. As we discussed, I will also be important that you establish with an infectious disease doctor; we will help coordinate this. You will require an INR check on Tuesday. In the interim, if you experience worsening dizziness/vertigo, fever, chills, changes in vision, weakness in your arms or legs, new numbness or tingling, chest pain, palpitations, shortness of breath, please seek medical attention immediately. Is a pleasure for caring for you while here and we wish you all the best in your recovery. Pending Studies at Discharge: No Stand-Alone Forms: [facility], Smoking Cessation Medications and DC Order Prescriptions: New fluconazole 200 mg tablet 400 mg PO DAILY 30 Days Qty: 60 0RF meclizine 12.5 mg tablet 12.5 mg PO DAILY Qty: 30 0RF Continued (DME) Contour Next Test Strips Strip See Rx Instructions .ROUTE .MEDSUPPLY Qty: 300 11RF Rx Instructions: Test blood sugars 6 times a day venlafaxine [Effexor XR] 150 mg capsule,extended release 24hr 300 mg PO HS Qty: 180 3RF (DME) Ketostix Strip See Rx Instructions miscellaneous .MEDSUPPLY Qty: 50 6RF Rx Instructions: Check when blood sugars are high metoprolol succinate 25 mg tablet extended release 24 hr 25 mg PO QAM Qty: 90 3RF magnesium oxide 400 mg (241.3 mg magnesium) tablet 400 mg PO QAM Qty: 90 3RF insulin glargine [Lantus Solostar U-100 Insulin] 100 unit/mL (3 mL) insulin pen 68 unit subcut QPM Qty: 62 2RF mirtazapine 30 mg tablet 30 mg PO HS Qty: 90 3RF (DME) blood-glucose meter [OneTouch Verio Flex meter] Misc See Rx Instructions miscellaneous .MEDSUPPLY Qty: 1 0RF Rx Instructions: As directed potassium chloride 20 mEq tablet extended release 20 meq PO DAILY Qty: 30 0RF (DME) Dexcom G6 Sensor Device See Rx Instructions .ROUTE .MEDSUPPLY Qty: 3 Rx Instructions: As directed (DME) Dexcom G6 Transmitter Device See Rx Instructions .ROUTE .MEDSUPPLY Qty: 1 Rx Instructions: As directed (DME) pen needle, diabetic [BD Ultra-Fine Jody Pen Needle] 32 gauge x 5/32" needle See Rx Instructions miscellaneous .MEDSUPPLY Qty: 120 5RF Rx Instructions: Inject up to 4x a day pantoprazole 40 mg tablet,delayed release (DR/EC) 40 mg PO BID Qty: 60 11RF furosemide 20 mg tablet 20 mg PO DAILY Qty: 30 2RF multivitamin tablet 1 tab PO QAM warfarin 1 mg tablet 0 mg PO DAILY Protocol: Dose Management Condition: Tuesday Dose/Route: 2 mg Instruction: 2 x 1 mg tablets Condition: Tuesday Dose/Route: 2 mg Instruction: 2 x 1 mg tablets Condition: Tuesday Dose/Route: 2 mg Instruction: 2 x 1 mg tablets Condition: Tuesday Dose/Route: 2 mg Instruction: 2 x 1 mg tablets Condition: Dose/Route: 2 mg Instruction: 2 x 1 mg tablets Condition: Tuesday Dose/Route: 2 mg Instruction: 2 x 1 mg tablets Condition: Tuesday Dose/Route: 2 mg Instruction: 2 x 1 mg tablets Protocol Text: Adjustment Start Date: Tuesday06/29/22 INR Value: 1.3 INR Date: 06/28/22 Recheck Date: 07/06/22 Rx Instructions: as directed by anticoagulation clinic insulin aspart U-100 100 unit/mL (3 mL) insulin pen See Rx Instructions SUBCUT TIDM Rx Instructions: subcutaneously three times daily with meals; Per sliding scale TDD: 80 units daily. Discontinued fluconazole 100 mg Tablet 200 mg PO QAM Qty: 30 0RF Discharge Orders: Discharge Order (Routine); Ordered 07/08/22 Ordered By: Dominic Conn Admission Data Admit Date/Time: 07/06/22 02:40 Attending Provider: Dominic Conn Admit Provider: Mary Cid Primary Care Provider: Leia Doyle Other Providers: Garett Stevens ; Perlita Mendosa ; Eliseo Polanco ; Gin Zuleta ; Katja Honeycutt ; Veronika Smith ; Dary Ray ; Rhiannon Espinoza ; Eliza Jameson ; Evelina Deutsch Coding Level of Care Code D/C DAY MANAGEMENT <30 MINS Diagnoses Vertigo R42 Diabetes mellitus type 2, uncontrolled, without complications Left hip pain M25.552 Cryptococcal meningitis B45.1 Hypertension I10 Hypertension type: essential hypertension Depression F32.9 Depression Type: unspecified Electrolyte abnormality E87.8 Pulmonary emboli I26.99
--- NOTE | 2022-07-08 18:55 | Billing Data ---
Date of Service July 08, 2022 Coding Level of Care Code 89768 OBS Care - Discharge Comment obs dc NOT <30mins
[2022-07-08] MEDS ORDERED: LANTUS PER UNIT CHARGE SQ SCH (21:00)
[2022-07-10 18:11] LABS: Cryptococcal Antigen Not Detected (Not Detected); Source CSF
[2022-07-11 19:02] LABS: Cryptococcal Antigen Detected (Not Detected); Source Serum
== END 2022-07-08 20:01 | disposition home or self-care (01) ==
LOC: ED 23:02 → EDINP 23:02 → SUATTDRO 07-06 02:40 → 3N 07-06 19:13

== ENCOUNTER 2022-07-17 10:32 | Inpatient (IN) ==
[2022-07-17] MEDS ORDERED: MoRPHine SULFATE 4 MG/ML 1 ML CARP\\VIAL IV STA ×2 (11:11→13:07)
[2022-07-17] MEDS ORDERED: ONDANSETRON INJ 2 MG/ML 2 ML VIAL IV STA (11:11)
--- NOTE | 2022-07-17 11:30 | Emergency Department Note ---
Impression & Plan Left ureteral calculus, Nausea & vomiting, Elevated INR ED Provider Note Provider: Gonzales Kincaid MD DATE OF SERVICE: 07/17/2022 CHIEF COMPLAINT: Left flank pain and nausea and vomiting HISTORY OF PRESENT ILLNESS: Patient is a 62-year-old female with multiple complex problems including cirrhosis, cryptococcal meningitis, kidney stones, IBS, diabetes, and current anticoagulation with Coumadin presenting here today reporting onset yesterday of pain in her back now into her left back/flank into the left groin region. Patient denies any falls or trauma. States yesterday she can continuously vomiting and is unsure if she had been kept on her medicines. Did take her medicines this morning and reports having a bit of breakfast. Still with some nausea. Reports pain similar to prior kidney stones. Recent urological procedure several weeks ago to try to remove a kidney stone here but feels there may have been a recurrence. Denies fever to her knowledge but states she keeps her house somewhat warm. REVIEW OF SYSTEMS: A total of 10 review of systems was obtained and negative exc ept as stated above in the HPI. PAST MEDICAL HISTORY: As noted above MEDICATIONS: Reviewed home medication list SOCIAL HISTORY: Lives at home PHYSICAL EXAM: GENERAL: alert and oriented in no acute distress on stretcher fatigued in appearance however Head: normocephalic and atraumatic EYES: No injection, discharge or icterus. NECK: Trachea midline. ENT: Mucous membranes pink and moist. LUNGS: Airway patent. No retractions. Breath sounds clear HEART: Regular rate and rhythm. No chest wall tenderness ABDOMEN: Soft patient with some tenderness in the left lower quadrant without peritonitis or right-sided abdominal pain. BACK: Left flank tenderness SKIN: Acyanotic, warm, dry, without rashes EXTREMITIES: Without swelling, tenderness or deformity NEUROLOGICAL: No focal deficits. No aphasia. No facial droop or slurred speech. EK beats. Normal sinus rhythm sinus rhythm. No PVC or PAC. No acute ST segment elevation with left axis and QTC of 479. CONTINUOUS CARDIAC MONITORING: was ordered and showed a heart rate of 70s-80s bpm in normal sinus rhythm PDMP was checked without noted issue. Patient's laboratory studies and imaging reviewed. Differential includes Renal colic, UTI, appendicitis, diverticulitis, mesenteric ischemia, aortic pathology, infections, inflammatory bowel disease, PUD, biliary pathology, as well as other pathologies. IMPRESSION/MEDICAL DECISION MAKING: Patient with extensive history but not having acute neurological signs by her report. Symptoms seem more consistent with her prior history of kidney stones with left flank pain and left inguinal region with some nausea and vomiting. Treated her symptomatically with some Zofran and morphine. States she is been trying to hydrate with fluids. Basic labs checked. We will complete a CT scan to look for stone causing problem or other etiology given her history of urological intervention. UA sent. INR elevated greater than 6 was may be a component of increased clinical dosing as well as decreased intake yesterday. Stable mild anemia. No significant leukocytosis. Negative COVID. Urinalysis with blood some trace leuk esterase and a few white blood cells and a few epithelial cells. Questionable minimal estimation unlikely to be infected. CT consistent with 3mm left-sided kidney stone. Likely explains her pain. Too small to really require operative intervention and again it does not seem infected. She does not seem septic. Still with significant symptoms & given additional morphine. Given her significant pain and the fact that she requires multiple critical medications for her PEs and cryptococcal meningitis and with the significant symptoms of the kidney stone she is not been able to take these correctly. Discussed with her and she believes she needs observation and the hospitalist was contacted. DIAGNOSIS: Left-sided kidney stone, nausea, long-term anticoagulation DISPOSITION: Hospitalist will evaluate Patient was agreeable with this plan. Past Med/Surg History Medical History Anxiety Cirrhosis of liver FOLLOWS W/ [facility] Stable currently Cryptococcal meningitis Depression Diabetes mellitus, type 2 IDDM Glucose fluctuates - since Covid in December 2020 On insulin pump Follows with endocrinology Dyslipidemia Hematemesis History of COVID-12 January 2021 > [facility], not hospitalized, fever, ear pain- did give infusion in ER No current issues Hypertension IBS (irritable bowel syndrome) Stable Insomnia Kidney stones FOLLOWS WITH DR FUCHS No current issues - monitoring currently Vertigo Surgical History History of cystoscopy WITH STENTS AND STONE BASKETING History of lithotripsy History of tonsillectomy and adenoidectomy History of total hip arthroplasty LEFT Hx laparoscopic cholecystectomy Hx of colonoscopy Hx of surgical amputation of finger left pinky Hx of total hysterectomy GERALD WITH BSO Hx of tubal ligation Hx of wisdom tooth extraction Status post Dupuytren's fasciectomy Status post total hip replacement, left Family History Father , age 75 Family history of diabetes mellitus Coronary heart disease Brother Family history of diabetes mellitus Mother , age 67 Family history of diabetes mellitus Heart disease Hypertension Grandfather (Paternal) Family history of diabetes mellitus Grandmother (Paternal) Family history of diabetes mellitus Denies family history of Ovarian cancer Breast cancer Colorectal cancer Social History Smoking Status: Former smoker Cigarettes Per Day: 06/2018; Number of Years Since Quit: 4; Second Hand Exposure: No; Hx Alcohol Use: No Hx Substance Use: No Preferred Language: Burkinan Communication Ability: Effective Visual Impairment: No Limitations 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 [employer] Required: No Beliefs That Will Affect Care: None marital status: Current Living Situation: Alone Current Living Situation Comment: alone current occupational status: employed and disabled current occupation: [employer] does have disability for diabetes- insurance helps How many Children do You have: 2 Feels Safe at Home: Yes Childhood Exposure to Second-Hand Smoke: No caffeine: Yes Dental Care, Regularly: No Physical Activity Frequency: Does not Exercise Seatbelt Use: always Sunscreen Use: Yes Assistive Devices: None Allergies Allergies Allergy/AdvReac Type Severity Reaction Status Date / Time Penicillins Allergy Intermediate Hives Verified 07/13/22 13:06 atorvastatin Allergy Unknown CAN'T Verified 07/13/22 13:06 REMEMBER gemfibrozil [From Lopid] Allergy Unknown CAN'T Verified 07/13/22 13:06 REMEMBER acetaminophen [From Tylenol] AdvReac Severe CAN NOT Verified 07/13/22 13:06 TAKE D/T LIVER ISSUES ibuprofen AdvReac Severe liver Verified 07/13/22 13:06 issues rosuvastatin AdvReac Intermediate Muscle Pain Verified 07/13/22 13:06 Home Meds Home Medications Medication Instructions Recorded Confirmed multivitamin 1 tab PO QAM 09/07/19 07/17/22 blood-glucose sensor (Dexcom G6 #3 ea 01/22/21 07/13/22 Sensor device) blood-glucose transmitter (Dexcom #1 ea 01/22/21 07/13/22 G6 Transmitter device) insulin aspart U-100 100 unit/mL See Rx Instructions subcut TIDM 06/29/22 07/17/22 (3 mL) subcutaneous pen warfarin 1 mg tablet 0 mg PO DAILY 07/06/22 07/17/22 Previous Rx's Medication Instructions Recorded Contour Next Test Strips (blood #300 ea 12/29/20 sugar diagnostic) venlafaxine 150 mg 300 mg PO HS #180 caps 07/01/21 capsule,extended release 24 hr (Effexor XR) acetone (urine) test (Ketostix #50 ea 10/14/21 strips) pen needle, diabetic 32 gauge x #120 ea 11/06/21" (BD Ultra-Fine Jody Pen Needle) metoprolol succinate 25 mg 25 mg PO QAM #90 tabs 04/16/22 tablet,extended release 24 hr furosemide 20 mg tablet 20 mg PO DAILY #30 tabs 05/26/22 insulin glargine 100 unit/mL (3 68 unit (0.68 mL) subcut QPM #62 mL 06/17/22 mL) subcutaneous pen (Lantus Solostar U-100 Insulin) mirtazapine 30 mg tablet 30 mg PO HS #90 tabs 06/18/22 blood-glucose meter (OneTouch #1 ea 06/28/22 Verio Flex Meter) fluconazole 200 mg tablet 400 mg PO DAILY 30 days #60 tabs 07/08/22 meclizine 12.5 mg tablet 12.5 mg PO DAILY #30 tabs 07/08/22 pantoprazole 40 mg tablet,delayed 40 mg PO ONCE #30 tabs 07/09/22 release magnesium oxide 400 mg (241.3 mg 400 mg PO BID #90 tabs 07/14/22 magnesium) tablet potassium chloride 20 mEq 20 meq PO DAILY #30 tabs 07/14/22 tablet,extended release Results & Data (ED) Vital Signs Vital Signs - 24 hr 07/17/22 10:39 07/17/22 11:07 07/17/22 11:07 Temperature 36.3 C L Temperature Source Temporal Artery Scan Pulse Rate 85 Pulse Rate [Apical] 82 Respiratory Rate 16 18 Respiratory Effort / Characteristics Non-Labored Spontaneous Non-Labored Respiratory Depth Normal Normal Respiratory Pattern Regular Regular Blood Pressure 127/70 Blood Pressure [Right Arm] 120/74 Blood Pressure Mean 89 Blood Pressure Mean [Right Arm] 89 Blood Pressure Position Sitting Pulse Oximetry 97 96 98 Oxygen Delivery Method Room Air Room Air Room Air Sepsis Recent Fever Within 48 Hours No Sepsis New/Unexplained Change in Mental Status No Sepsis Action Taken by Nursing No Action Required 07/17/22 13:03 Temperature Temperature Source Pulse Rate Pulse Rate [Apical] 84 Respiratory Rate 18 Respiratory Effort / Characteristics Respiratory Depth Respiratory Pattern Blood Pressure Blood Pressure [Right Arm] 143/81 H Blood Pressure Mean Blood Pressure Mean [Right Arm] 101 Blood Pressure Position Pulse Oximetry 98 Oxygen Delivery Method Room Air Sepsis Recent Fever Within 48 Hours Sepsis New/Unexplained Change in Mental Status Sepsis Action Taken by Nursing Laboratory Data Result diagrams: 07/17/22 11:05 07/17/22 14:22 Lab Results 07/17/22 07/17/22 07/17/22 Range/Units 11:05 11:05 11:05 WBC 6.14 (4.8-10.8) K/ul RBC 3.44 L (3.93-5.22) M/uL Hgb 9.1 L (12.0-16.0) g/dl Hct 27.5 L (34.1-44.9) % MCV 79.9 L (80.0-100.0) fL MCH 26.5 (25.0-34.0) pg MCHC 33.1 (32.0-36.0) g/dL RDW Std Deviation 54.4 H (36.4-46.3) fL RDW Coeff of Jun 18.6 H (11.5-14.5) % Plt Count 129 L (130-400) K/uL MPV 11.2 (9.4-12.3) fL Immature Gran % (Auto) 0.2 % Neut % (Auto) 54.7 % Lymph % (Auto) 28.5 % [place] % (Auto) 7.0 % Eos % (Auto) 9.3 % Baso % (Auto) 0.3 % Neut # (Auto) 3.36 (1.4-6.5) K/uL Lymph # (Auto) 1.75 (1.2-3.4) K/uL [place] # (Auto) 0.43 (0.24-0.82) K/uL Eos # (Auto) 0.57 H (0-0.50) K/uL Baso # (Auto) 0.02 (0-0.2) K/uL Immature Gran # (Auto) 0.01 (0.00-0.02) K/uL Platelet Estimate Normal (Normal) PT 61.4 H (9.0-12.0) Seconds INR 6.4 H* (0.9-1.1) Sodium 138 (136-145) mmol/L Potassium TNP Chloride 103 (98-107) mmol/L Carbon Dioxide 25 (21-32) mmol/L Anion Gap 10 (3-11) BUN 25 H (6-23) mg/dl Creatinine 1.12 (0.6-1.2) mg/dl Est Cr Clr Drug Dosing Not Reportable Est GFR ( Amer) 60.5 ml/min Est GFR (Non-Af Amer) 52.2 ml/min BUN/Creatinine Ratio 22.3 H (10-20) Glucose 301 H* (70-99(Fasting)) mg/dl Calcium 9.1 (8.5-10.1) mg/dl Total Bilirubin 0.2 (0.2-1.0) mg/dl AST TNP ALT 27 (7-52) U/L Alkaline Phosphatase 155 H (34-104) U/L Troponin I High Sens 8.0 (0-14) pg/ml Total Protein 7.0 (6.0-8.3) gm/dl Albumin 3.3 L (3.4-5.0) gm/dl Globulin 3.7 (2.5-4.0) gm/dl Albumin/Globulin Ratio 0.9 (0.9-2) Lipase 55 (11-82) U/L Procalcitonin (0-0.5) ng/ml Urine Color Urine Appearance (Clear) Urine pH (4.5-7.5) Ur Specific [place] (1.000-1.030) Urine Protein (Negative) Urine Glucose (UA) (Negative) Urine Ketones (Negative) Urine Blood (Negative) Urine Nitrite (Negative) Urine Bilirubin (Negative) Urine Urobilinogen (Negative) Ur Leukocyte Esterase (Negative) Urine WBC (Auto) (0-5) /hpf Urine RBC (Auto) (0-4) /hpf U Hyaline Cast (Auto) (0-5) /lpf U Epithel Cells (Auto) (0-5) /lpf Urine Bacteria (Auto) (Negative) SARS-CoV-2, RNA, NAAT (NEGATIVE) 07/17/22 07/17/22 07/17/22 Range/Units 11:05 11:25 11:25 WBC (4.8-10.8) K/ul RBC (3.93-5.22) M/uL Hgb (12.0-16.0) g/dl Hct (34.1-44.9) % MCV (80.0-100.0) fL MCH (25.0-34.0) pg MCHC (32.0-36.0) g/dL RDW Std Deviation (36.4-46.3) fL RDW Coeff of Jun (11.5-14.5) % Plt Count (130-400) K/uL MPV (9.4-12.3) fL Immature Gran % (Auto) % Neut % (Auto) % Lymph % (Auto) % [place] % (Auto) % Eos % (Auto) % Baso % (Auto) % Neut # (Auto) (1.4-6.5) K/uL Lymph # (Auto) (1.2-3.4) K/uL [place] # (Auto) (0.24-0.82) K/uL Eos # (Auto) (0-0.50) K/uL Baso # (Auto) (0-0.2) K/uL Immature Gran # (Auto) (0.00-0.02) K/uL Platelet Estimate (Normal) PT (9.0-12.0) Seconds INR (0.9-1.1) Sodium (136-145) mmol/L Potassium Chloride (98-107) mmol/L Carbon Dioxide (21-32) mmol/L Anion Gap (3-11) BUN (6-23) mg/dl Creatinine (0.6-1.2) mg/dl Est Cr Clr Drug Dosing Est GFR ( Amer) ml/min Est GFR (Non-Af Amer) ml/min BUN/Creatinine Ratio (10-20) Glucose (70-99(Fasting)) mg/dl Calcium (8.5-10.1) mg/dl Total Bilirubin (0.2-1.0) mg/dl AST ALT (7-52) U/L Alkaline Phosphatase (34-104) U/L Troponin I High Sens (0-14) pg/ml Total Protein (6.0-8.3) gm/dl Albumin (3.4-5.0) gm/dl Globulin (2.5-4.0) gm/dl Albumin/Globulin Ratio (0.9-2) Lipase (11-82) U/L Procalcitonin 0.06 (0-0.5) ng/ml Urine Color Yellow Urine Appearance Clear (Clear) Urine pH 6.5 (4.5-7.5) Ur Specific [place] 1.022 (1.000-1.030) Urine Protein Negative (Negative) Urine Glucose (UA) 3+ H (Negative) Urine Ketones Negative (Negative) Urine Blood 3+ H (Negative) Urine Nitrite Negative (Negative) Urine Bilirubin Negative (Negative) Urine Urobilinogen Negative (Negative) Ur Leukocyte Esterase Trace H (Negative) Urine WBC (Auto) 10-30 H (0-5) /hpf Urine RBC (Auto) >30 H (0-4) /hpf U Hyaline Cast (Auto) 1-5 (0-5) /lpf U Epithel Cells (Auto) 10-20 H (0-5) /lpf Urine Bacteria (Auto) Negative (Negative) SARS-CoV-2, RNA, NAAT NEGATIVE (NEGATIVE) Administered Medications Lactated Ringer's (Lr) 1,000 mls @ 100 mls/hr IV .Q10H HALEY Stop: 08/17/22 13:44 Last Admin: 07/17/22 13:45 Dose: 100 mls/hr Documented By: SHARMAINE Discontinued Medications Morphine Sulfate (Morphine Sulfate 4 Mg/Ml 1 Ml Carp\\Vial) 4 mg IV NOW STA Stop: 07/17/22 11:12 Last Admin: 07/17/22 11:29 Dose: 4 mg Documented By: SHARMAINE Morphine Sulfate (Morphine Sulfate 4 Mg/Ml 1 Ml Carp\\Vial) 4 mg IV NOW STA Stop: 07/17/22 13:08 Last Admin: 07/17/22 13:16 Dose: 4 mg Documented By: SHARMAINE Ondansetron HCl (Ondansetron Inj 2 Mg/Ml 2 Ml Vial) 4 mg IV NOW STA Stop: 07/17/22 11:12 Last Admin: 07/17/22 11:30 Dose: 4 mg Documented By: SHARMAINE Imaging Data Radiologist's Impression: Abdomen/Pelvis CT 07/17/22 11:11 CT abd pelvis wo con CLINICAL HISTORY: L flank pain, ?stone has hx TECHNIQUE: Helical axial images of the abdomen and pelvis were obtained. Automated dose lowering techniques and/or adjustment according to patient size were utilized for this exam. This exam was performed without intravenous contrast. CT DOSE: 296.74 mGy.cm COMPARISON: Comparison is made to CT abdomen pelvis 06/13/2022 FINDINGS: Lower chest: Bibasilar atelectasis versus scarring is seen. Liver: Nodular contour of the liver is seen compatible with cirrhosis. Gallbladder and biliary tree: Patient is status post cholecystectomy. No intra- or extrahepatic biliary ductal dilation. Pancreas: Unremarkable, no focal lesions. Spleen: Unremarkable. Adrenals: Unremarkable. Kidneys and ureters: Nonobstructive stones are seen. There is left hydronephrosis and hydroureter with a distal 3 mm stone. Bladder: Limited evaluation due to underdistention. Reproductive organs: Unremarkable. Bowel: Unremarkable. Lymph nodes Retroperitoneal: Unremarkable. Pelvic: Unremarkable. Mesenteric: Unremarkable. Peritoneum: Normal. Vessels: Atherosclerotic calcifications are seen. Abdominal wall: Unremarkable. Bones: Degenerative changes in the visualized spine. Left hip total arthroplasty is seen. Anterior wedge deformity of T12 is unchanged. IMPRESSION: 1. Obstructive left ureteral stone with associated hydronephrosis/hydroureter. 2. Cirrhosis. 3. Additional findings as above. ACT 112: Negative or not required by law. Electronically signed by: Sukhjinder Orozco M.D. 07/17/2022 12:33 PM Discharge Plan Visit Data Chief Complaint: Flank Pain Stated Complaint: ABD PAIN, L SIDE FLANK PAIN,VOMITING ED Provider: Gonzales Kincaid Discharge Problem: Left ureteral calculus, Nausea & vomiting, Elevated INR Patient Disposition: Admitted As Inpatient Discharge Instructions Interventions: ED Discharge Assessment Last Done: 07/17/22 14:49
[2022-07-17 11:49] LABS: Basophils # (auto) 0.02 K/uL (0-0.2); Basophils % (auto) 0.3 %; Eosinophils # (auto) 0.57 K/uL (0-0.50); Eosinophils % (auto) 9.3 %; Hematocrit (blood only) 27.5 % (34.1-44.9); Hemoglobin 9.1 g/dl (12.0-16.0); Immature Granulocytes # (auto) 0.01 K/uL (0.00-0.02); Immature Granulocytes % (auto) 0.2 %; Lymphocytes # (auto) 1.75 K/uL (1.2-3.4); Lymphocytes % (auto) 28.5 %; Mean Corpuscular Hemoglobin 26.5 pg (25.0-34.0); Mean Corpuscular Hgb Conc 33.1 g/dL (32.0-36.0); Mean Corpuscular Volume 79.9 fL (80.0-100.0); Mean Platelet Volume 11.2 fL (9.4-12.3); Monocytes # (auto) 0.43 K/uL (0.24-0.82); Neutrophils # (auto) 3.36 K/uL (1.4-6.5); Neutrophils % (auto) 54.7 %; Platelet Count 129 K/uL (130-400); Platelet Estimate Normal (Normal); RDW Coefficient of Variation 18.6 % (11.5-14.5); RDW Standard Deviation 54.4 fL (36.4-46.3); Red Blood Count 3.44 M/uL (3.93-5.22); White Blood Count 6.14 K/ul (4.8-10.8)
[2022-07-17 11:51] LABS: Appearance Urine Clear (Clear); Bacteria Urine Automated Negative (Negative); Bilirubin Urine Negative (Negative); Blood Urine 3+ (Negative); Color Urine Yellow; Glucose Urine UA 3+ (Negative); Ketones Urine Negative (Negative); Leukocyte Esterase Urine Trace (Negative); Nitrite Urine Negative (Negative); Protein Urine Negative (Negative); RBC Urine Automated >30 /hpf (0-4); Specific Gravity Urine 1.022 (1.000-1.030); Urobilinogen Urine Negative (Negative); pH Urine 6.5 (4.5-7.5)
[2022-07-17 12:02] LABS: Prothrombin Time 61.4 Seconds (9.0-12.0)
[2022-07-17 12:17] LABS: INR 6.4 (0.9-1.1)
[2022-07-17 12:30] LABS: Alanine Aminotransferase 27 U/L (7-52); Albumin Globulin Ratio 0.9 (0.9-2); Albumin Level 3.3 gm/dl (3.4-5.0); Alkaline Phosphatase 155 U/L (34-104); Anion Gap 10 (3-11); BUN Creatinine Ratio 22.3 (10-20); Bilirubin,Total 0.2 mg/dl (0.2-1.0); Blood Urea Nitrogen 25 mg/dl (6-23); Calcium 9.1 mg/dl (8.5-10.1); Carbon Dioxide 25 mmol/L (21-32); Chloride 103 mmol/L (98-107); Est GFR (African American) 60.5 ml/min; Est GFR (Non-African American) 52.2 ml/min; Globulin 3.7 gm/dl (2.5-4.0); Glucose 301 mg/dl (70-99(Fasting)); Lipase 55 U/L (11-82); Sodium 138 mmol/L (136-145)
--- NOTE | 2022-07-17 12:36 | CT Scan Report ---
CT abd pelvis wo con CLINICAL HISTORY: L flank pain, ?stone has hx TECHNIQUE: Helical axial images of the abdomen and pelvis were obtained. Automated dose lowering tech niques and/or adjustment according to patient size were utilized for this exam. This exam was perfor med without intravenous contrast. CT DOSE: 296.74 mGy.cm COMPARISON: Comparison is made to CT abdomen pelvis 06/13/2022 FINDINGS: Lower chest: Bibasilar atelectasis versus scarring is seen. Liver: Nodular contour of the liver is seen compatible with cirrhosis. Gallbladder and biliary tree: Patient is status post cholecystectomy. No intra- or extrahepatic bilia ry ductal dilation. Pancreas: Unremarkable, no focal lesions. Spleen: Unremarkable. Adrenals: Unremarkable. Kidneys and ureters: Nonobstructive stones are seen. There is left hydronephrosis and hydroureter wit h a distal 3 mm stone. Bladder: Limited evaluation due to underdistention. Reproductive organs: Unremarkable. Bowel: Unremarkable. Lymph nodes Retroperitoneal: Unremarkable. Pelvic: Unremarkable. Mesenteric: Unremarkable. Peritoneum: Normal. Vessels: Atherosclerotic calcifications are seen. Abdominal wall: Unremarkable. Bones: Degenerative changes in the visualized spine. Left hip total arthroplasty is seen. Anterior we dge deformity of T12 is unchanged. IMPRESSION: 1. Obstructive left ureteral stone with associated hydronephrosis/hydroureter. 2. Cirrhosis. 3. Additional findings as above. ACT 112: Negative or not required by law. Electronically signed by: Sukhjinder Orozco M.D. 07/17/2022 12:33 PM
[2022-07-17] MEDS ORDERED: DEXTROSE 50% 50 ML SYRINGE IV PRN ×2 (13:28→15:14)
[2022-07-17] MEDS ORDERED: CARBOHYDRATES FOR HYPOGLYCEMIA PO PRN ×2 (13:28→15:14)
[2022-07-17] MEDS ORDERED: GLUCOSE 40% GEL 15 GM TUBE PO PRN ×2 (13:28→15:14)
[2022-07-17] MEDS ORDERED: GLUCAGON FOR INJ 1 MG VIAL SQ PRN ×2 (13:28→15:14)
[2022-07-17] MEDS ORDERED: GLUCOSE 10 TAB/TUBE PO PRN ×2 (13:28→15:14)
[2022-07-17] MEDS: LACTATED RINGER'S 1,000 ML IV SCH (13:45)
--- NOTE | 2022-07-17 13:48 | History & Physical Report ---
Date of Service July 17, 2022 Assessment & Plan (1) Left nephrolithiasis: Plan: -Admit to med/surge -Patient is currently afebrile, hemodynamically stable, and stable on RA -3mm stone noted on CT of the abdomen/pelvis today causing hydronephrosis, renal function is stable and pain is able to void -Patient is non-toxic and without signs or labs to indicate systemic infection, dysuria is likely related to her current stone/hematuria -Will hold antibiotics for now, if she becomes febrile or shows other labs/signs of infection would then start -Will start daily flomax to help her pass the stone -Would avoid NSAID use for now with her hematuria and elevated INR -Will use 2mg IV morphine q6h prn severe pain, would be cautious with big doses of narcotics with her hx of cirrhosis -If any complications arise would consult Urology -AM CBC, CMP, mag, PT/INR -strain urine (2) Nausea & vomiting: Plan: -Likely related to her current kidney stone, possible also related to PO Fluconazole -Will keep NPO for now and hydrate with light LR's, will try to advance to clears later today -Had zofran in the ED, QTc noted to be 479 today, would be cautious using frequent QTc prolonging medications -Will hold prn zofran for now as she is not currently nauseous (3) Elevated INR: Plan: -Noted to be 6.4 today -Likely due to Fluconazole use, cirrhosis, and dehydration , poor po intake -She is having hematuria, no other signs of bleeding, Hgb currently stable at 9.1 -WIll hold warfarin for now, will wait to give Vit K as she is stable, monitor AM PT/INR (ordered) (4) Cryptococcal meningitis: Plan: -Currently alert and completely oriented -Last admission for confusion/hallucinations due to dehydration and 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 -Will switch to IV fluconazole for now at 400 mg daily -May need to decrease dose on DC if PO at 400 mg continues to give her GI upset (5) Hypertension: Plan: -Hemodynamically stable -Continue metoprolol -Hold lasix for now with NPO status and dehydration (6) Depression: Plan: -Continue Venlafaxine (7) Cirrhosis of liver: Plan: -Liver function stable, platelets at 129 today, continue to monitor daily (8) Diabetes mellitus type 2, uncontrolled, without complications: Plan: -Patient noted to be hyperglycemic at 301 in the ED -Will decrease dose of HS lantus from 68 to 30 tonight since currently NPO -Continue with correction factor of 20 q6h while NPO (9) Dyslipidemia: Plan: -No currently on a statin (10) Hypomagnesemia: Plan: -Continue mag supplementation -Monitor AM Mag level ordered (11) Atrial fibrillation: Plan: -Currently in a sinus rhythm, rate controlled -Continue metoprolol -Hold Warfarin until INR is back to therapeutic range (12) Anemia: Plan: -Hgb noted to be 9.1 today, slightly down from 9.7 on 07/13 -MCV noted to be 79 today, will get Iron studies tomorrow morning for further workup Plan The patient was discussed with Dr. 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 Per chart review, the patient was just discharged from [facility] on 07/08/22 for vertigo, h allucinations, and ALBINA. Her hallucinations and vertigo were thought to be caused by dehydration and current cryptococcal meningitis. In the Ed the patient was found to be afebrile, hemodynamically stable, and stable on RA. Labs were remarkable for WBC WNL, stable Hgb, thrombocytopenia of 129, MCV of 79.9, INR of 6.4, stable renal function, hyperglycemia of 301, alk phos of 155, UA with 3+blood, trace leukocyte esterase, RBC > 30, urine WBC 10- 30, and urine epithelial cells 10-20. CT of the abdomen and pelvis showed "a 3 mm Obstructive left ureteral stone with associated hydronephrosis/hydroureter and Cirrhosis. Prior to admission the patient was given 4 mg IV morphine and another dose of morphine 4 mg IV. At the time of the exam the patient was resting comfortably in bed in no acute distress. She is completely alert and oriented at the time of my exam. She states that she began experiencing left flank pain at the beginning of the week, this pain was similar to the pain she normally gets with kidney stones. The pain remains on the left flank/abdomen, it comes and goes, and she describes it as sharp/stabbing. She recently had a cystoscopy with [facility] on 06/28/22 for a left obstructing kidney stone, they procedure was successful and there were no complications, no stent was placed during the procedure. A day after her back pain started she began to experience nausea and vomiting. Today is the first day that she has yet to vomit, she was able to eat breakfast and take her AM medications today. She denies fever, chills, chest pain, SOB, hematemesis, coffee ground emesis, and blood in her stool/melena. She did start to experience some dysuria today and has noted hematuria since her pain started. Of note, the patient's fluconazole was increased back to the recommended dose of 400 mg PO daily for her 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, it was previously decreased to 200 mg daily due to GI upset. She states that the fluconazole at the 400 mg dose is again upsetting her stomach as well. The patient is voiding consistently and is having no issues with starting her urine stream. She did take her 1 mg of Warfarin this morning. Allergies Allergy/AdvReac Type Severity Reaction Status Date / Time Penicillins Allergy Intermediate Hives Verified 07/13/22 13:06 atorvastatin Allergy Unknown CAN'T Verified 07/13/22 13:06 REMEMBER gemfibrozil [From Lopid] Allergy Unknown CAN'T Verified 07/13/22 13:06 REMEMBER acetaminophen [From Tylenol] AdvReac Severe CAN NOT Verified 07/13/22 13:06 TAKE D/T LIVER ISSUES ibuprofen AdvReac Severe liver Verified 07/13/22 13:06 issues rosuvastatin AdvReac Intermediate Muscle Pain Verified 07/13/22 13:06 Home Medications Medication Instructions Recorded Confirmed Type multivitamin 1 tab PO QAM 09/07/19 07/17/22 History Contour Next Test Strips (blood #300 ea 12/29/20 07/13/22 Rx sugar diagnostic) blood-glucose sensor (Dexcom G6 #3 ea 01/22/21 07/13/22 History Sensor device) blood-glucose transmitter (Dexcom #1 ea 01/22/21 07/13/22 History G6 Transmitter device) venlafaxine 150 mg 300 mg PO HS #180 caps 07/01/21 07/17/22 Rx capsule,extended release 24 hr (Effexor XR) acetone (urine) test (Ketostix #50 ea 10/14/21 07/13/22 Rx strips) pen needle, diabetic 32 gauge x #120 ea 11/06/21 07/13/22 Rx 5/32" (BD Ultra-Fine Jody Pen Needle) metoprolol succinate 25 mg 25 mg PO QAM #90 tabs 04/16/22 07/17/22 Rx tablet,extended release 24 hr furosemide 20 mg tablet 20 mg PO DAILY #30 tabs 05/26/22 07/17/22 Rx insulin glargine 100 unit/mL (3 68 unit (0.68 mL) subcut QPM #62 mL 06/17/22 07/17/22 Rx mL) subcutaneous pen (Lantus Solostar U-100 Insulin) mirtazapine 30 mg tablet 30 mg PO HS #90 tabs 06/18/22 07/17/22 Rx blood-glucose meter (OneTouch #1 ea 06/28/22 07/13/22 Rx Verio Flex Meter) insulin aspart U-100 100 unit/mL See Rx Instructions subcut TIDM 06/29/22 07/17/22 History (3 mL) subcutaneous pen warfarin 1 mg tablet 0 mg PO DAILY 07/06/22 07/17/22 History fluconazole 200 mg tablet 400 mg PO DAILY 30 days #60 tabs 07/08/22 07/17/22 Rx meclizine 12.5 mg tablet 12.5 mg PO DAILY #30 tabs 07/08/22 07/17/22 Rx pantoprazole 40 mg tablet,delayed 40 mg PO ONCE #30 tabs 07/09/22 07/17/22 Rx release magnesium oxide 400 mg (241.3 mg 400 mg PO BID #90 tabs 07/14/22 07/17/22 Rx magnesium) tablet potassium chloride 20 mEq 20 meq PO DAILY #30 tabs 07/14/22 07/17/22 Rx tablet,extended release Past Med/Surg History Medical History Anxiety Cirrhosis of liver FOLLOWS W/ [facility] Stable currently Cryptococcal meningitis Depression Diabetes mellitus, type 2 IDDM Glucose fluctuates - since Covid in December 2020 On insulin pump Follows with endocrinology Dyslipidemia Hematemesis History of COVID-12 January 2021 > [facility], not hospitalized, fever, ear pain- did give infusion in ER No current issues Hypertension IBS (irritable bowel syndrome) Stable Insomnia Kidney stones FOLLOWS WITH DR FUCHS No current issues - monitoring currently Vertigo Surgical History History of cystoscopy WITH STENTS AND STONE BASKETING History of lithotripsy History of tonsillectomy and adenoidectomy History of total hip arthroplasty LEFT Hx laparoscopic cholecystectomy Hx of colonoscopy Hx of surgical amputation of finger left pinky Hx of total hysterectomy GERALD WITH BSO Hx of tubal ligation Hx of wisdom tooth extraction Status post Dupuytren's fasciectomy Status post total hip replacement, left Family History Father , age 75 Family history of diabetes mellitus Coronary heart disease Brother Family history of diabetes mellitus Mother , age 67 Family history of diabetes mellitus Heart disease Hypertension Grandfather (Paternal) Family history of diabetes mellitus Grandmother (Paternal) Family history of diabetes mellitus Denies family history of Ovarian cancer Breast cancer Colorectal cancer Social History Smoking Status: Former smoker Cigarettes Per Day: 06/2018; Number of Years Since Quit: 4; Second Hand Exposure: No; Hx Alcohol Use: No Hx Substance Use: No Preferred Language: Chinese Communication Ability: Effective Visual Impairment: No Limitations Tricot Knitter Required: No Beliefs That Will Affect Care: None marital status: Current Living Situation: Alone Current Living Situation Comment: alone current occupational status: employed and disabled current occupation: [employer]-pt does have disability for diabetes- insurance helps How many Children do You have: 2 Feels Safe at Home: Yes Childhood Exposure to Second-Hand Smoke: No caffeine: Yes Dental Care, Regularly: No Physical Activity Frequency: Does not Exercise Seatbelt Use: always Sunscreen Use: Yes Assistive Devices: None Review of Systems Review of Systems: Denies current fever, chills, headache, changes in vision, hearing, taste, and smell, chest pain, SOB, cough diarrhea, hematemesis, melena,and recent falls. All systems have been reviewed and are otherwise negative. Physical Exam Physical Exam: Physical Exam: General: In no acute distress, stated age, well-nourished, good hygiene HEENT: Normocephalic, atraumatic, no scleral icterus, pupils around round, symmetrical, and reactive to light, Dry mucus membranes, trachea midline, no thyromegaly Chest/Pulm: No respiratory distress, symmetrical chest expansion, clear breath sounds throughout Cardiac: RRR, no murmurs noted Abdomen: Negative for ascites and bruising, normoactive bowel sounds, soft, tender to palpation in the left upper and lower abdomen Musculoskeletal: Symmetrical and without signs of acute trauma, upper and lower extremities with full ROM, no atrophy, spasticity, or flaccidity Extremities: Radial, dorsalis pedis, and posterior tibial pulses are intact and symmetrical, no edema noted in the BL LE's Skin: Warm, dry, no rashes , lesions, or scars noted Neuro: Alert and oriented to person, place, month, year, and president, no focal defects, CN II-XII tested and intact, no tremors noted Psych: No acute distress, calm and cooperative during the exam Results & Data Results & Data ([facility]) Vital Signs (Past 12 Hours) Vital Signs Temp Pulse Pulse Resp BP BP Pulse Ox 07/17/22 13:03 84 18 143/81 H 98 07/17/22 11:07 98 07/17/22 11:07 82 18 120/74 96 07/17/22 10:39 36.3 C L 85 16 127/70 97 O2 Del Method 07/17/22 13:03 Room Air 07/17/22 11:07 Room Air 07/17/22 11:07 Room Air 07/17/22 10:39 Room Air Laboratory Results Abnormal lab results 07/17/22 07/17/22 07/17/22 Range/Units 11:05 11:05 11:05 RBC 3.44 L (3.93-5.22) M/uL Hgb 9.1 L (12.0-16.0) g/dl Hct 27.5 L (34.1-44.9) % MCV 79.9 L (80.0-100.0) fL RDW Std Deviation 54.4 H (36.4-46.3) fL RDW Coeff of Jun 18.6 H (11.5-14.5) % Plt Count 129 L (130-400) K/uL Eos # (Auto) 0.57 H (0-0.50) K/uL PT 61.4 H (9.0-12.0) Seconds INR 6.4 H* (0.9-1.1) BUN 25 H (6-23) mg/dl BUN/Creatinine Ratio 22.3 H (10-20) Glucose 301 H* (70-99(Fasting)) mg/dl Alkaline Phosphatase 155 H (34-104) U/L Albumin 3.3 L (3.4-5.0) gm/dl Urine Glucose (UA) (Negative) Urine Blood (Negative) Ur Leukocyte Esterase (Negative) Urine WBC (Auto) (0-5) /hpf Urine RBC (Auto) (0-4) /hpf U Epithel Cells (Auto) (0-5) /lpf 07/17/22 Range/Units 11:25 RBC (3.93-5.22) M/uL Hgb (12.0-16.0) g/dl Hct (34.1-44.9) % MCV (80.0-100.0) fL RDW Std Deviation (36.4-46.3) fL RDW Coeff of Jun (11.5-14.5) % Plt Count (130-400) K/uL Eos # (Auto) (0-0.50) K/uL PT (9.0-12.0) Seconds INR (0.9-1.1) BUN (6-23) mg/dl BUN/Creatinine Ratio (10-20) Glucose (70-99(Fasting)) mg/dl Alkaline Phosphatase (34-104) U/L Albumin (3.4-5.0) gm/dl Urine Glucose (UA) 3+ H (Negative) Urine Blood 3+ H (Negative) Ur Leukocyte Esterase Trace H (Negative) Urine WBC (Auto) 10-30 H (0-5) /hpf Urine RBC (Auto) >30 H (0-4) /hpf U Epithel Cells (Auto) 10-20 H (0-5) /lpf Diagnostic Findings Abdomen/Pelvis CT 07/17/22 11:11 CT abd pelvis wo con CLINICAL HISTORY: L flank pain, ?stone has hx TECHNIQUE: Helical axial images of the abdomen and pelvis were obtained. Automa mariano dose lowering techniques and/or adjustment according to patient size were utilized for this exam. This exam was performed without intravenous contrast. CT DOSE: 296.74 mGy.cm COMPARISON: Comparison is made to CT abdomen pelvis 06/13/2022 FINDINGS: Lower chest: Bibasilar atelectasis versus scarring is seen. Liver: Nodular contour of the liver is seen compatible with cirrhosis. Gallbladder and biliary tree: Patient is status post cholecystectomy. No intra- or extrahepatic biliary ductal dilation. Pancreas: Unremarkable, no focal lesions. Spleen: Unremarkable. Adrenals: Unremarkable. Kidneys and ureters: Nonobstructive stones are seen. There is left hydronephrosis and hydroureter with a distal 3 mm stone. Bladder: Limited evaluation due to underdistention. Reproductive organs: Unremarkable. Bowel: Unremarkable. Lymph nodes Retroperitoneal: Unremarkable. Pelvic: Unremarkable. Mesenteric: Unremarkable. Peritoneum: Normal. Vessels: Atherosclerotic calcifications are seen. Abdominal wall: Unremarkable. Bones: Degenerative changes in the visualized spine. Left hip total arthroplasty is seen. Anterior wedge deformity of T12 is unchanged. IMPRESSION: 1. Obstructive left ureteral stone with associated hydronephrosis/hydroureter. 2. Cirrhosis. 3. Additional findings as above. ACT 112: Negative or not required by law. Electronically signed by: Sukhjinder Orozco M.D. 07/17/2022 12:33 PM ECG Additional Comments: Normal sinus rhythm with sinus arrhythmia Left axis deviation Nonspecific ST abnormality Abnormal ECG When compared with ECG of 05-JUL-2022 23:14, No significant change was found Code Status & VTE Plan Code Status Full code VTE Prophylaxis Plan VTE Prophylaxis will be ordered: Yes Supervising Physician Co-Signing Physician Notes PA Supervision Note: I personally saw and examined the patient. I verified all fish points and agree with ETIENNE Urias with the following exceptions and/or additions: S-Pt p/w 2 days of left flank pain, N/V, and now with dysuria. Seemed similar to her previous kidney stones. FOund to have left ureterolithiasis on admission in ER, no evidence of UTI, no fever. No hepatic encephalopathy. Continues to have chronic nausea related to fluconazole for her cryptococcal meningitis History and ROS reviewed as above O- Vitals reviewed Gen: [AAOx3, NAD] HEENT: [anicteric sclerae, EOMI] CV: [RRR no mgr nl S1S2] Pulm: [CTAB no wcr] Abd: [+BS soft NT ND no masses or hernias] Ext: [no edema, 2+ DP pulses] Skin: [no rashes, warm/dry] Neuro: [full strength throughout] Labs, Rads, and ECG reviewed A/P-62 yo female with history as above, here with left sided ureterolithiasis and hydronephrosis. No ALBINA, no UTI, with N/V. Keep NPO until nausea improved, add compazine prn -continue IVFs -pain meds as needed -Urology consult if not improving in case of need for intervention make fluconazole IV for now added FLomax for max expulsion therapy holding coumadin, follow INR checking anemia labs in AM PG Care Time/CCT Total # of Minutes Spent Total Time Spent with Patient: Total time spent is greater than 50% in coordination of care (as documented) at patient's floor/unit and/or counseling patient: [place] [address] Initial Inpt Care Lvl 2 Patient Type Established Medical Decision Making Moderate Complexity Diagnoses Left nephrolithiasis N20.0 Nausea & vomiting R11.2 Elevated INR R79.1 Cryptococcal meningitis B45.1 Hypertension I10 Hypertension type: essential hypertension Depression F32.9 Depression Type: unspecified Cirrhosis of liver K74.60 Diabetes mellitus type 2, uncontrolled, without complications Dyslipidemia E78.5 Hypomagnesemia E83.42 Atrial fibrillation I48.91 Anemia D62 Anemia type: other cause Other causes of anemia: acute posthemorrhagic (1) Anemia Anemia type: other cause Other causes of anemia: acute posthemorrhagic Qualified Code(s): D62 - Acute posthemorrhagic anemia (2) Depression Depression Type: unspecified Qualified Code(s): F32.9 - Major depressive disorder, single episode, unspecified (3) Hypertension Hypertension type: essential hypertension Qualified Code(s): I10 - Essential (primary) hypertension
[2022-07-17] MEDS ORDERED: ACETAMINOPHEN 325 MG TAB PO PRN (15:14)
[2022-07-17] MEDS ORDERED: MoRPHine SULFATE 2 MG/ML CARP IV PRN (15:14)
[2022-07-17 15:19] LABS: Alanine Aminotransferase 26 U/L (7-52); Albumin Level 3.4 gm/dl (3.4-5.0); Alkaline Phosphatase 152 U/L (34-104); Aspartate Aminotransferase 37 U/L (13-39); Bilirubin,Total 0.3 mg/dl (0.2-1.0); Potassium 3.9 mmol/L (3.5-5.1); Total Protein 6.5 gm/dl (6.0-8.3)
[2022-07-17] MEDS ORDERED: PROCHLORPERAZINE 5 MG in SYRINGE 4 ML IV PRN (16:14)
[2022-07-17] MEDS ORDERED: Nursing to Pharmacy Communication SCH (16:15)
[2022-07-17] MEDS ORDERED: INSULIN ASPART PER UNIT SC SCH (16:30)
[2022-07-17] MEDS: TAMSULOSIN HCL 0.4 MG CAP PO SCH (17:11)
[2022-07-17] MEDS: INSULIN ASPART PER UNIT SC SCH (18:25)
[2022-07-17] MEDS ORDERED: LANTUS PER UNIT CHARGE SQ SCH ×2 (21:00)
[2022-07-17] MEDS: VENLAFAXINE HCL XR 150 MG CAPXR PO SCH (21:27)
[2022-07-17] MEDS: PANTOprazole 40 MG in SYRINGE 0 ML IV SCH (21:27)
[2022-07-17] MEDS: MIRTAZAPINE TAB 15 MG TAB PO SCH (21:28)
[2022-07-17] MEDS: MAGNESIUM OXIDE 400 MG TAB PO SCH (21:28)
[2022-07-17] MEDS ORDERED: LANTUS PER UNIT CHARGE SQ STA (21:48)
[2022-07-17] MEDS: LANTUS PER UNIT CHARGE SQ SCH (22:05)
[2022-07-18] MEDS: INSULIN ASPART PER UNIT SC SCH ×6 (00:09→20:29)
[2022-07-18] MEDS: LACTATED RINGER'S 1,000 ML IV SCH (00:10)
[2022-07-18] MEDS ORDERED: D5W AND 1/2NSS 1,000 ML IV SCH (00:15)
--- NOTE | 2022-07-18 07:08 | Electrocardiogram Report ---
Test Reason : Blood Pressure : / mmHG Vent. Rate : 083 BPM Atrial Rate : 083 BPM P-R Int : 150 ms QRS Dur : 110 ms QT Int : 408 ms P-R-T Axes : 060 -42 054 degrees QTc Int : 479 ms Normal sinus rhythm with PAC Left axis deviation Nonspecific ST abnormality Abnormal ECG When compared with ECG of 05-JUL-2022 23:14, No significant change was found Confirmed by Brendon Nina ([id number]) on 07/18/2022 7:07:41 AM Referred By: Confirmed By:Alvino Nina
[2022-07-18 07:46] LABS: Hematocrit (blood only) 24.2 % (34.1-44.9); Hemoglobin 7.9 g/dl (12.0-16.0); Mean Corpuscular Hemoglobin 25.8 pg (25.0-34.0); Mean Corpuscular Hgb Conc 32.6 g/dL (32.0-36.0); Mean Corpuscular Volume 79.1 fL (80.0-100.0); Mean Platelet Volume 11.2 fL (9.4-12.3); Platelet Count 110 K/uL (130-400); RDW Coefficient of Variation 18.6 % (11.5-14.5); RDW Standard Deviation 54.5 fL (36.4-46.3); Red Blood Count 3.06 M/uL (3.93-5.22); White Blood Count 5.34 K/ul (4.8-10.8)
--- NOTE | 2022-07-18 07:53 | Hospitalist Progress Note ---
Date of Service July 18, 2022 Assessment & Plan (1) Elevated INR: (2) Cryptococcal meningitis: (3) Left ureteral calculus: (4) Hydronephrosis due to obstruction of ureter: (5) Diabetes mellitus type 2, uncontrolled, without complications: (6) Atrial fibrillation: (7) Hypomagnesemia: (8) Anemia: (9) Left nephrolithiasis: Plan Left nephrolithiasis: -Patient is currently afebrile, hemodynamically stable, and stable on RA -3mm stone noted on CT of the abdomen/pelvis today causing hydronephrosis, renal function is stable and pain is able to void -Patient is non-toxic and without signs or labs to indicate systemic infection, dysuria is likely related to her current stone/hematuria -Will hold antibiotics for now, if she becomes febrile or shows other labs/signs of infection would then start -Will start daily flomax to help her pass the stone -Would avoid NSAID use for now with her hematuria and elevated INR -Will use 2mg IV morphine q6h prn severe pain, would be cautious with big doses of narcotics with her hx of cirrhosis -If any complications arise would consult Urology -AM CBC, CMP, mag, PT/INR Nausea & vomiting -Likely related to her current kidney stone, possible also related to PO Fluconazole -Will keep NPO for now and hydrate with light LR's, will try to advance to clears later today -Had zofran in the ED, QTc noted to be 479 today, would be cautious using frequent QTc prolonging medications -Will hold prn zofran for now as she is not currently nauseous Elevated INR -Noted to be 6.3 on 07/18. -Likely due to Fluconazole use, cirrhosis, and dehydration , poor po intake -She is having hematuria, no other signs of bleeding, Hgb currently stable at 7.9 -Will hold warfarin for now, will wait to give Vit K as she is stable, monitor AM PT/INR Cryptococcal meningitis -Currently alert and completely oriented -Last admission for confusion/hallucinations due to dehydration and PAPER INSERTER infection -Will switch to IV fluconazole for now at 400 mg daily -May need to decrease dose on DC if PO at 400 mg continues to give her GI upset -ID connect team consult from last visit reviewed. -AM team to reach out to ID about dose in setting of severe side effects - Phone no ID connect - [phone] Diabetes mellitus type 2, uncontrolled, without complications -Patient noted to be hyperglycemic at 301 in the ED -Will decrease dose of HS lantus from 68 to 30 tonight since currently NPO -Continue with correction factor of 20 q6h while NPO Anemia -Hgb noted to be 7.9 today, slightly down from 9.7 on 07/13 -MCV noted to be 79 in ED. Iron studies were normal. Hypomagnesemia -Continue mag supplementation -Mag was 1.4 this morning. Will order 2 bags of magnesium sulfate IV 1gram -Will recheck magnesium levels in AM labs. Atrial fibrillation -Currently in a sinus rhythm, rate controlled -Continue metoprolol -Hold Warfarin until INR is back to therapeutic range Hypertension -Hemodynamically stable -Continue metoprolol. -Will restart lasix once patient is able to pass stone. -Hold lasix for now with NPO status and dehydration Depression -Continue Venlafaxine Cirrhosis of liver -Liver function stable, continue to monitor daily Dyslipidemia -No currently on a statin Fluids: none Nutrition: regular Code status: full code DVT ppx: SCDs, holding warfarin d/t elevated INR Consults: none PT/OT: none Dispo: med/surg Thank you for allowing me to participate in the care of your patient. -Dr. Hunter Lynn PGY1 Admission and Anticipated Discharge Date Admission Date: July 17, 2022 Supervising Physician Co-Signing Physician Notes Resident Physician Supervision Note: I independently interviewed and examined the patient and verified the fish history and physical, reviewed labs and image studies and agree with resident findings and care plan. Subjective Patient was seen bedside this AM. She states that she has not passed the stone yet. She reports that the pain is well tolerated at this time. States that she is having some dysuria as well. Of note she stated that she has had multiple calcium stones in the past which have frequently required surgery due to their size. She has only passed one stone on her own before. Review of Systems Review of Systems: Constitutional: denies fever, chills, fatigue HEENT: denies congestion, sore throat CV: denies chest pain, palpitations Resp: denies shortness of breath, cough GI: denies abdominal pain, nausea, vomiting, constipation, diarrhea : +dysuria, flank pain Neuro: denies new numbness, tingling, weakness Physical Exam Physical Exam: Constitutional: well-appearing, no acute distress HEENT: NCAT, no conjunctival injection CV: regular rhythm, no murmur appreciated, extremities well-perfused, no LE edema Resp: CTABL, no wheezes/rales/rhonchi appreciated, no increased work of breat angel GI: soft, nondistended, nontender, BS normoactive MSK: L sided CVA tenderness, no gross deformities appreciated Skin: warm, dry, no rash appreciated Neuro: alert, oriented, no focal neurologic deficit appreciated Results & Data Results & Data ([facility]) Vital Signs (Past 12 Hours) Vital Signs Temp Pulse Resp BP Pulse Ox O2 Del Method 07/17/22 21:30 36.4 C L 80 16 124/71 96 Room Air Resident Activity Tracking Resident Involvement: Resident Care Provided Care Provided: Adult Hospital Medicine (1) Anemia Anemia type: other cause Other causes of anemia: acute posthemorrhagic Qualified Code(s): D62 - Acute posthemorrhagic anemia
[2022-07-18 08:00] LABS: Prothrombin Time 60.8 Seconds (9.0-12.0)
[2022-07-18 08:10] LABS: BUN Creatinine Ratio 20.2 (10-20); Bilirubin,Total 0.3 mg/dl (0.2-1.0); Calcium 8.8 mg/dl (8.5-10.1); Creatinine Clr Calc Pharmacy 50.2 ml/min; Est GFR (African American) 70.3 ml/min; Est GFR (Non-African American) 60.6 ml/min; Globulin 2.9 gm/dl (2.5-4.0); Magnesium 1.4 mg/dl (1.7-2.4); Potassium 3.4 mmol/L (3.5-5.1); Total Protein 5.9 gm/dl (6.0-8.3)
[2022-07-18 08:24] LABS: INR 6.3 (0.9-1.1)
[2022-07-18 08:41] LABS: Folate (Folic Acid) 19.46 ng/ml (>5.38)
[2022-07-18] MEDS ORDERED: FLUCONAZOLE 200 MG/100 ML BAG IV SCH (09:00)
[2022-07-18 09:06] LABS: Ferritin 74.5 ng/ml (8-388)
[2022-07-18] MEDS: PANTOprazole 40 MG in SYRINGE 0 ML IV SCH ×2 (09:50→21:50)
[2022-07-18] MEDS: FLUCONAZOLE 200 MG/100 ML BAG IV SCH ×2 (09:50→11:41)
[2022-07-18] MEDS: MECLIZINE 12.5 MG TAB PO SCH (09:51)
[2022-07-18] MEDS: METOPROLOL SUCC 25MG EXT REL TAB PO SCH (09:51)
[2022-07-18] MEDS: MAGNESIUM OXIDE 400 MG TAB PO SCH ×2 (09:51→21:50)
[2022-07-18] MEDS: POTASSIUM CHLORIDE CRTAB 20 MEQ TABCR PO SCH (09:51)
[2022-07-18] MEDS: TAMSULOSIN HCL 0.4 MG CAP PO SCH (09:51)
[2022-07-18] MEDS ORDERED: Nursing to Pharmacy Communication SCH (11:45)
[2022-07-18] MEDS: MAGNESIUM SULFATE / D5W 1 GM/100 ML BAG IV SCH ×2 (17:50→19:39)
[2022-07-18] MEDS: LANTUS PER UNIT CHARGE SQ SCH (20:30)
[2022-07-18] MEDS: VENLAFAXINE HCL XR 150 MG CAPXR PO SCH (21:50)
[2022-07-18] MEDS: MIRTAZAPINE TAB 15 MG TAB PO SCH (21:50)
[2022-07-19 06:15] LABS: Hematocrit (blood only) 25.9 % (34.1-44.9); Hemoglobin 8.5 g/dl (12.0-16.0); Mean Corpuscular Hemoglobin 26.2 pg (25.0-34.0); Mean Corpuscular Hgb Conc 32.8 g/dL (32.0-36.0); Mean Corpuscular Volume 79.7 fL (80.0-100.0); Mean Platelet Volume 11.4 fL (9.4-12.3); Platelet Count 130 K/uL (130-400); RDW Coefficient of Variation 18.6 % (11.5-14.5); RDW Standard Deviation 54.3 fL (36.4-46.3); Red Blood Count 3.25 M/uL (3.93-5.22); White Blood Count 5.81 K/ul (4.8-10.8)
[2022-07-19 06:36] LABS: Albumin Globulin Ratio 1.1 (0.9-2); Albumin Level 3.2 gm/dl (3.4-5.0); BUN Creatinine Ratio 19.2 (10-20); Bilirubin,Total 0.3 mg/dl (0.2-1.0); Calcium 8.9 mg/dl (8.5-10.1); Creatinine Clr Calc Pharmacy 50.2 ml/min; Est GFR (African American) 70.3 ml/min; Est GFR (Non-African American) 60.6 ml/min; Magnesium 1.9 mg/dl (1.7-2.4); Potassium 3.8 mmol/L (3.5-5.1); Total Protein 6.2 gm/dl (6.0-8.3)
[2022-07-19 07:00] LABS: INR 5.4 (0.9-1.1); Prothrombin Time 52.9 Seconds (9.0-12.0)
--- NOTE | 2022-07-19 07:28 | Hospitalist Progress Note ---
Date of Service July 19, 2022 Assessment & Plan (1) Elevated INR: (2) Cryptococcal meningitis: (3) Left ureteral calculus: (4) Hydronephrosis due to obstruction of ureter: (5) Diabetes mellitus type 2, uncontrolled, without complications: (6) Atrial fibrillation: (7) Hypomagnesemia: (8) Anemia: (9) Left nephrolithiasis: Plan Left nephrolithiasis: -Patient is currently afebrile, hemodynamically stable, and stable on RA -3mm stone noted on CT of the abdomen/pelvis today causing hydronephrosis, renal function is stable and pain is able to void -Patient is non-toxic and without signs or labs to indicate systemic infection, dysuria is likely related to her current stone/hematuria -Will hold antibiotics for now, if she becomes febrile or shows other labs/signs of infection would then start -Will start daily flomax to help her pass the stone -Would avoid NSAID use for now with her hematuria and elevated INR -Will use 2mg IV morphine q6h prn severe pain, would be cautious with big doses of narcotics with her hx of cirrhosis -If any complications arise would consult Urology -AM CBC, CMP, mag, PT/INR Nausea & vomiting -Likely related to her current kidney stone, possible also related to PO Fluconazole -Will keep NPO for now and hydrate with light LR's, will try to advance to clears later today -Had zofran in the ED, QTc noted to be 479 today, would be cautious using frequent QTc prolonging medications -Will hold prn zofran for now as she is not currently nauseous Elevated INR -Noted to be 6.3 on 07/18. 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 -AM team to reach out to ID about dose in setting of severe side effects - Phone no ID connect - [phone] Diabetes mellitus type 2, uncontrolled, without complications -Patient noted to be hyperglycemic at 301 in the ED -Will decrease dose of HS lantus from 68 to 30 tonight since currently NPO -Continue with correction factor of 20 q6h while NPO Anemia -Hgb noted to be 7.9 today, slightly down from 9.7 on 07/13 -MCV noted to be 79 in ED. Iron studies were normal. Hypomagnesemia -Continue mag supplementation -Mag was 1.4 this morning. Will order 2 bags of magnesium sulfate IV 1gram -Will recheck magnesium levels in AM labs. Atrial fibrillation -Currently in a sinus rhythm, rate controlled -Continue metoprolol -Hold Warfarin until INR is back to therapeutic range Hypertension -Hemodynamically stable -Continue metoprolol. -Will restart lasix once patient is able to pass stone. -Hold lasix for now with NPO status and dehydration Depression -Continue Venlafaxine Cirrhosis of liver -Liver function stable, continue to monitor daily Dyslipidemia -No currently on a statin Fluids: none Nutrition: regular Code status: full code DVT ppx: SCDs, holding warfarin d/t elevated INR Consults: none PT/OT: none Dispo: med/surg Thank you for allowing me to participate in the care of your patient. -Dr. Hunter Lynn PGY1 Admission and Anticipated Discharge Date Admission Date: July 17, 2022 Results & Data Results & Data ([facility]) Vital Signs (Past 12 Hours) Vital Signs Temp Pulse Resp BP Pulse Ox O2 Del Method 07/18/22 21:39 36.8 C 76 14 124/72 96 Room Air (1) Anemia Anemia type: other cause Other causes of anemia: acute posthemorrhagic Qualified Code(s): D62 - Acute posthemorrhagic anemia
[2022-07-19] MEDS: POTASSIUM CHLORIDE CRTAB 20 MEQ TABCR PO SCH (08:17)
[2022-07-19] MEDS: METOPROLOL SUCC 25MG EXT REL TAB PO SCH (08:17)
[2022-07-19] MEDS: MAGNESIUM OXIDE 400 MG TAB PO SCH (08:18)
[2022-07-19] MEDS: TAMSULOSIN HCL 0.4 MG CAP PO SCH (08:18)
[2022-07-19] MEDS: MECLIZINE 12.5 MG TAB PO SCH (08:18)
[2022-07-19] MEDS: PANTOprazole 40 MG in SYRINGE 0 ML IV SCH (08:27)
[2022-07-19] MEDS: FLUCONAZOLE 200 MG/100 ML BAG IV SCH ×2 (08:49→09:55)
[2022-07-19] MEDS: INSULIN ASPART PER UNIT SC SCH ×2 (08:52→13:01)
--- NOTE | 2022-07-19 15:11 | Discharge Summary ---
Date of Service July 19, 2022 Admission HPI Per Admitting Provider Lynne is a 62yo female with a PMHx including nephrolithiasis, cirrhosis, DVT and PE on Warfarin, prolonged QTC, DM2, atrial fibrillation on warfarin, mitral regurgitation, cryptococcal meningitis (on fluconazole), NAFLD without esophageal varices, IBS, HLD, and HTN, who presented to [facility] ER on 07/17/22 with a chief complaint of left flank pain, nausea, and vomiting. Per chart review, the patient was just discharged from [facility] on 07/08/22 for vertigo, hallucinations, and ALBINA. Her hallucinations and vertigo were thought to be caused by dehydration and current cryptococcal meningitis. In the Ed the patient was found to be afebrile, hemodynamically stable, and stable on RA. Labs were remarkable for WBC WNL, stable Hgb, thrombocytopenia of 129, MCV of 79.9, INR of 6.4, stable renal function, hyperglycemia of 301, alk phos of 155, UA with 3+blood, trace leukocyte esterase, RBC > 30, urine WBC 10- 30, and urine epithelial cells 10-20. CT of the abdomen and pelvis showed "a 3 mm Obstructive left ureteral stone with associated hydronephrosis/hydroureter and Cirrhosis. Prior to admission the patient was given 4 mg IV morphine and another dose of morphine 4 mg IV. At the time of the exam the patient was resting comfortably in bed in no acute distress. She is completely alert and oriented at the time of my exam. She states that she began experiencing left flank pain at the beginning of the week, this pain was similar to the pain she normally gets with kidney stones. The pain remains on the left flank/abdomen, it comes and goes, and she describes it as sharp/stabbing. She recently had a cystoscopy with [facility] on 06/28/22 for a left obstructing kidney stone, they procedure was successful and there were no complications, no stent was placed during the procedure. A day after her back pain started she began to experience nausea and vomiting. Today is the first day that she has yet to vomit, she was able to eat breakfast and take her AM medications today. She denies fever, chills, chest pain, SOB, hematemesis, coffee ground emesis, and blood in her stool/melena. She did start to experience some dysuria today and has noted hematuria since her pain started. 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 She states that the fluconazole at the 400 mg dose is again upsetting her stomach as well. The patient is voiding consistently and is having no issues with starting her urine stream. She did take her 1 mg of Warfarin this morning. Admission Exam Per Admitting Provider Physical Exam: General:In no acute distress, stated age, well-nourished, good hygiene HEENT:Normocephalic, atraumatic, no scleral icterus, pupils around round, symmetrical, and reactive to light, Dry mucus membranes, trachea midline, no thyromegaly Chest/Pulm:No respiratory distress, symmetrical chest expansion, clear breath sounds throughout Cardiac:RRR, no murmurs noted Abdomen:Negative for ascites and bruising, normoactive bowel sounds, soft, tender to palpation in the left upper and lower abdomen Musculoskeletal:Symmetrical and without signs of acute trauma, upper and lower extremities with full ROM, no atrophy, spasticity, or flaccidity Extremities:Radial, dorsalis pedis, and posterior tibial pulses are intact and symmetrical, no edema noted in the BL LE's Skin:Warm, dry, no rashes , lesions, or scars noted Neuro:Alert and oriented to person, place, month, year, and president, no focal defects, CN II-XII tested and intact, no tremors noted Psych:No acute distress, calm and cooperative during the exam Principal Diagnosis ureterolithiasis Discharge Exam Constitutional: well-appearing, no acute distress HEENT: NCAT, no conjunctival injection CV: regular rhythm, no murmur appreciated, extremities well-perfused, no LE edema Resp: CTABL, no wheezes/rales/rhonchi appreciated, no increased work of breathing GI: soft, nondistended, nontender, BS normoactive MSK: no gross deformities appreciated Skin: warm, dry, no rash appreciated Neuro: alert, oriented, no focal neurologic deficit appreciated Discharge Data Allergies Allergy/AdvReac Type Severity Reaction Status Date / Time Penicillins Allergy Intermediate Hives Verified 07/13/22 13:06 atorvastatin Allergy Unknown CAN'T Verified 07/13/22 13:06 REMEMBER gemfibrozil [From Lopid] Allergy Unknown CAN'T Verified 07/13/22 13:06 REMEMBER acetaminophen [From Tylenol] AdvReac Severe CAN NOT Verified 07/13/22 13:06 TAKE D/T LIVER ISSUES ibuprofen AdvReac Severe liver Verified 07/13/22 13:06 issues rosuvastatin AdvReac Intermediate Muscle Pain Verified 07/13/22 13:06 Consultations 07/17/22 13:15 ED Decision to Admit Stat Ordered Studies 07/17/22 11:11 CT abd pelvis wo con Stat Hospital Course (1) Elevated INR: (2) Cryptococcal meningitis: (3) Left ureteral calculus: (4) Hydronephrosis due to obstruction of ureter: (5) Diabetes mellitus type 2, uncontrolled, without complications: (6) Atrial fibrillation: (7) Hypomagnesemia: (8) Anemia: (9) Left nephrolithiasis: Plan Left nephrolithiasis: -Patient is currently afebrile, hemodynamically stable, and stable on RA -3mm stone noted on CT of the abdomen/pelvis today causing hydronephrosis, renal function is stable and pain is able to void -Patient is non-toxic and without signs or labs to indicate systemic infection, dysuria is likely related to her current stone/hematuria -No antibiotics on admission. -Given flomax to help her pass the stone. Stone was passed at time of discharge. She is currently not having any symptoms. Elevated INR -Noted to be 6.3 on 07/18. -Likely due to Fluconazole use, cirrhosis, and dehydration , poor po intake -She is having hematuria, no other signs of bleeding, Hgb currently stable at 7.9 -Will hold warfarin for now, will wait to give Vit K as she is stable, -Instructed to go to AC clinic and have INR checked in 2-3 days. Told to hold warafin until that time. 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 -Will keep on 400mg and have patient f/u as soon as possible with ID. - Diabetes mellitus type 2, uncontrolled, without complications -Patient noted to be hyperglycemic at 301 in the ED -Stable at time of discharge. -F/u with PCP. Anemia -Hgb noted to be 7.9 today, slightly down from 9.7 on 07/13 -MCV noted to be 79 in ED. Iron studies were normal. -Check CBC in 1-2 weeks after discharge. Hypomagnesemia -Continue mag supplementation -Mag was 1.4 this morning. Will order 2 bags of magnesium sulfate IV 1gram -Recheck in 1-2 weeks Atrial fibrillation -Currently in a sinus rhythm, rate controlled -Continue metoprolol -Hold Warfarin until INR is back to therapeutic range Hypertension -Hemodynamically stable -Continue metoprolol. -Held lasix d/t NPO status. Restarted at time of discharge. Depression -Continue Venlafaxine Cirrhosis of liver -Liver function stable, continue to monitor as an outpatient. Dyslipidemia -No currently on a statin. F/u with PCP. Thank you for allowing me to participate in the care of your patient. -Dr. Hunter Lynn PGY1 Total Time Total Time Spent Total Time Spent (In Minutes): <30 Discharge Plan Discharge Items Patient Disposition: Home - Self-Care Reason For Visit: FLANK PAIN Discharge Diagnosis: nephrolithiasis Activity: Resume your previous activity Non-emergency contact: Primary Care Provider Call non-emergency contact if: your symptoms worsen, your pain is worsening and your temperature is above 101.5 Follow-up/Referrals: Leia Doyle DO [Primary Care Provider] - 07/28/22 10:15 am Diet: Regular Addtl Attending Provider Instructions: You were admitted to the hospital for nephrolithiasis. You were treated with flomax and IV fluids. You eventually passed the stone without any surgical intervention needed. A discharge summary will be sent to your primary care physician to ensure continuity of care. Please bring this discharge summary with you to your next office appointment so that your provider can review it at that time. Follow-up appointments: * We arranged an appointment for you with Dr. Hernandez (infectious Disease) at [facility] on July at 11:00am. You should arrive at your appointment at 11:00am. The address of your appointment is: [address] [place] [address]; [place] [address]. The phone number of the office is [phone] * Make a follow-up appointment with your PCP within the next week. It is very important that you follow up with them shortly after discharge from the hospital. * Keep all your follow-up appointments as already scheduled. If you cannot make an appointment, notify your provider. Medications: Your medication list has been reviewed and reconciled upon discharge to ensure accuracy and continuity of care. An updated list of all your medications is included with your hospital discharge paperwork. Please review this list closely, and make note of any changes. * Hold taking your Warfarin until you follow up with your anticoagulant clinic and have your INR checked. You should do that in the next 3 days. * No new medication changes for you at this time. It is important that you follow up with Dr. Olmstead to discuss ongoing treatment of your Cryptococcal meningitis. * If you have any issues filling these prescriptions, please call [phone] and ask to leave a message for Dr. Lynn. * Take your medications as instructed; do not skip a dose of your medicines. Ma ke sure all of your doctors know every medicine you are taking (including ldyn-ghb-lnkcwom medicines, vitamins, and supplements). Call your primary care provider before taking any new medicines (including over- the-counter medicines, vitamins, and supplements), because some of these may interact with your current medications, or may make your symptoms worse. Tell your primary care provider if you cannot afford your medications. CONTACT YOUR PRIMARY CARE PROVIDER if you experience any of the following: * Worsening of symptoms * Fever, chills, or fatigue * Difficulty following your treatment plan, or difficulty taking medications CALL 911 OR GO TO THE EMERGENCY DEPARTMENT if you experience any of the following: * Sudden, severe abdominal pain or nausea/vomiting * Severe chest pain, or chest pain that radiates (moves) to your jaw or arm * Sudden, severe shortness of breath or difficulty breathing Thank you for allowing us to participate in your care. Pending Studies at Discharge: No Stand-Alone Forms: [facility] [employer], Smoking Cessation Medications and DC Order Prescriptions: Continued (DME) Contour Next Test Strips Strip See Rx Instructions .ROUTE .MEDSUPPLY Qty: 300 11RF Rx Instructions: Test blood sugars 6 times a day venlafaxine [Effexor XR] 150 mg capsule,extended release 24hr 300 mg PO HS Qty: 180 3RF (DME) Ketostix Strip See Rx Instructions miscellaneous .MEDSUPPLY Qty: 50 6RF Rx Instructions: Check when blood sugars are high metoprolol succinate 25 mg tablet extended release 24 hr 25 mg PO QAM Qty: 90 3RF insulin glargine [Lantus Solostar U-100 Insulin] 100 unit/mL (3 mL) insulin pen 68 unit subcut QPM Qty: 62 2RF mirtazapine 30 mg tablet 30 mg PO HS Qty: 90 3RF (DME) blood-glucose meter [OneTouch Verio Flex meter] Mis See Rx Instructions miscellaneous .MEDSUPPLY Qty: 1 0RF Rx Instructions: As directed magnesium oxide 400 mg (241.3 mg magnesium) tablet 400 mg PO BID Qty: 90 3RF potassium chloride 20 mEq tablet extended release 20 meq PO DAILY Qty: 30 0RF (DME) Dexcom G6 Sensor Device See Rx Instructions .ROUTE .MEDSUPPLY Qty: 3 Rx Instructions: As directed (DME) Dexcom G6 Transmitter Device See Rx Instructions .ROUTE .MEDSUPPLY Qty: 1 Rx Instructions: As directed (DME) pen needle, diabetic [BD Ultra-Fine Jody Pen Needle] 32 gauge x 5/32" needle See Rx Instructions miscellaneous .MEDSUPPLY Qty: 120 5RF Rx Instructions: Inject up to 4x a day furosemide 20 mg tablet 20 mg PO DAILY Qty: 30 2RF pantoprazole 40 mg tablet,delayed release (DR/EC) 40 mg PO ONCE Qty: 30 11RF multivitamin tablet 1 tab PO QAM fluconazole 200 mg tablet 400 mg PO DAILY 30 Days Qty: 60 0RF meclizine 12.5 mg tablet 12.5 mg PO DAILY Qty: 30 0RF insulin aspart U-100 100 unit/mL (3 mL) insulin pen See Rx Instructions SUBCUT TIDM Rx Instructions: subcutaneously three times daily with meals; Per sliding scale TDD: 80 units daily. Discontinued warfarin 1 mg tablet 0 mg PO DAILY Protocol: Dose Management Condition: Tuesday Dose/Route: 2 mg Instruction: 2 x 1 mg tablets Condition: Tuesday Dose/Route: 1 mg Instruction: 1 x 1 mg tablet Condition: Tuesday Dose/Route: 1 mg Instruction: 1 x 1 mg tablet Condition: Tuesday Dose/Route: 2 mg Instruction: 2 x 1 mg tablets Condition: Dose/Route: 2 mg Instruction: 2 x 1 mg tablets Condition: Tuesday Dose/Route: 2 mg Instruction: 2 x 1 mg tablets Condition: Tuesday Dose/Route: 2 mg Instruction: 2 x 1 mg tablets Protocol Text: Adjustment Start Date: Tuesday07/14/22 INR Value: 3.8 INR Date: 07/13/22 Recheck Date: 07/21/22 Rx Instructions: as directed by anticoagulation clinic Discharge Orders: Discharge Order (Routine); Ordered 07/19/22 Ordered By: Hunter Lynn Admission Data Admit Date/Time: 07/17/22 13:33 Attending Provider: Dominic Conn Admit Provider: Jimy Urias Primary Care Provider: eLia Doyle Other Providers: Lizette Simpson ; Sabine Escoto Other Interventions: Discharge Summary Assessment (RN) Last Done: 07/19/22 16:03 Supervising Physician Co-Signing Physician Notes I personally examined the patient and verified all fish points of history and exam, discussed case, and agree with decision making with Dr Lynn Feeling better overall. Nausea better. On further questioning, however, nausea has been going on for probably about the last week at home as well. Discussed the conundrum between fluconazole for cryptococcal meningitis and nausea, with a confounding factor being that ureterolithiasis can also commonly cause nausea as well. Discussed the need for close infectious disease follow-up either way. She notes that she could probably follow-up with the [facility] team far easier than the [facility]. Vitals noted, in general she is awake and alert pleasant no distress. HEENT normocephalic atraumatic mucous membranes moist. Breathing unlabored no accessory muscle use good effort. Skin shows no rashes no pallor or icterus. Neuro without focal deficits. Ureterolithiasispaststable for home. Anticipate hematuria will clear Cryptococcal meningitiscontinue fluconazoleclose ID follow- upscheduled/arranged with the [facility] team as patient noted she could more probably actually follow-up with them. Coumadin coagulopathycontinue to titrate Coumadin in the face of what will be a new balance with the change in dose of fluconazole. Close INR follow-up. Hemodynamically stable otherwise as above Resident Activity Tracking Resident Involvement: Resident Care Provided Care Provided: Adult [facility]
--- NOTE | 2022-07-19 17:55 | Billing Data ---
Date of Service July 19, 2022 Coding Level of Care Code D/C DAY MANAGEMENT <30 MINS
== END 2022-07-19 16:53 | disposition home or self-care (01) | DRG 693 ==
LOC: ED 10:32 → 3N 13:33 → SUATTDRO 13:33 → 3N 14:49

== ENCOUNTER 2023-06-23 20:00 | Inpatient (IN) ==
--- NOTE | 2023-06-23 21:18 | Emergency Department Note ---
History of Present Illness General Chief complaint: Altered Mental Status Stated complaint: ALTERED MENTAL STATUS; NEEDS CLEARANCE Time Seen by Provider: 06/23/23 20:52 Source: patient and family History of Present Illness Provider complaint: Altered mental status Onset (ago): day(s) 2 Maximum Pain Intensity: 6 63-year-old female with history of cryptococcal meningitis diagnosed in 2021 presents emergency department for altered mental status. Patient is here with her son. Son reports that the patient was discharged from the hospital 2 days ago. Son reports that since the patient was discharged she has been having increased hallucinations talking to people who are not there including pictures on her cell phone thinking they are real people. No recent falls. No traumas. No fevers. Son reports that they were hoping to have the patient placed at the hatch and was told to come here for medical clearance. Home Medications Medication Instructions Recorded Confirmed Type multivitamin 1 tab PO QAM 09/07/19 06/23/23 History Contour Next Test Strips (blood #300 ea 12/29/20 06/23/23 Rx sugar diagnostic) insulin aspart U-100 100 unit/mL See Rx Instructions subcut TIDM 06/29/22 06/23/23 History (3 mL) subcutaneous pen fluconazole 200 mg tablet 400 mg PO DAILY 11/05/22 06/23/23 History cholecalciferol (vitamin D3) 50 2,000 unit PO DAILY #90 caps 02/10/23 06/23/23 Rx mcg (2,000 unit) capsule cetirizine 10 mg capsule (Zyrtec) 10 mg PO DAILY allergy symptoms 02/25/23 06/23/23 Rx #90 caps betamethasone dipropionate 0.05 % 1 applic topical TID PRN skin 04/08/23 06/23/23 Rx lotion irritation #60 mL venlafaxine 150 mg 150 mg PO QPM #1 cap 04/14/23 06/23/23 Rx capsule,extended release 24 hr (Effexor XR) diphenhydramine HCl 25 mg capsule 25 mg PO TID PRN Allergy Symptoms 04/22/23 06/23/23 History (Allergy (diphenhydramine)) potassium chloride 20 mEq 20 meq PO QAM #90 tabs 04/22/23 06/23/23 Rx tablet,extended release quetiapine 25 mg tablet 25 mg PO HS #30 tabs 05/16/23 06/23/23 Rx fluticasone propionate 50 1 spray intranasal DAILY #16 grams 05/20/23 06/23/23 Rx mcg/actuation nasal spray,suspension (Flonase Allergy Relief) Saccharomyces boulardii 250 mg 250 mg PO BID #20 caps 05/31/23 06/23/23 Rx capsule (Florastor) pantoprazole 40 mg tablet,delayed 40 mg PO BID #180 tabs 06/01/23 06/23/23 Rx release sucralfate 100 mg/mL oral 10 ml PO QID #420 mL 06/14/23 06/23/23 Rx suspension (Carafate) promethazine 12.5 mg tablet 12.5 mg PO TID PRN nausea and 06/15/23 06/23/23 Rx vomiting #30 tabs apixaban 5 mg tablet (Eliquis) 5 mg PO BID #60 tabs 06/21/23 06/23/23 Rx furosemide 20 mg tablet 20 mg PO QAM PRN volume overload 06/21/23 06/23/23 Rx or weight gain #30 tabs insulin glargine 100 unit/mL (3 15 unit (0.15 mL) subcut AMPM #12 06/21/23 06/23/23 Rx mL) subcutaneous pen (Lantus mL Solostar U-100 Insulin) magnesium chloride 64 mg 64 mg PO BID #60 tabs 06/21/23 06/23/23 Rx (magnesium chloride) tablet,delayed release (Mag 64) metoprolol succinate 25 mg 25 mg PO BID #60 tabs 06/21/23 06/23/23 Rx tablet,extended release 24 hr venlafaxine 75 mg capsule,extended 75 mg PO QPM #30 caps 06/21/23 06/23/23 Rx release 24 hr meclizine 12.5 mg tablet 12.5 mg PO QAM #30 tabs 06/23/23 06/23/23 Rx Allergies Allergy/AdvReac Type Severity Reaction Status Date / Time Penicillins Allergy Intermediate Hives Verified 06/23/23 20:51 atorvastatin Allergy Unknown CAN'T Verified 06/23/23 20:51 REMEMBER/? RAISED LIVER LEVELS gemfibrozil [From Lopid] Allergy Unknown CAN'T Verified 06/23/23 20:51 REMEMBER/ ? RAISED LIVER LEVELS rosuvastatin AdvReac Intermediate Muscle Pain Verified 06/23/23 20:51 acetaminophen [From Tylenol] AdvReac Unknown CAN NOT Verified 06/23/23 20:51 TAKE D/T LIVER ISSUES ibuprofen AdvReac Unknown liver Verified 06/23/23 20:51 issues Past Med/Surg History Medical History Acid reflux Anxiety Cirrhosis of liver FOLLOWS W/ [facility] Stable currently 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[facility] for 4 mon summer [address] GONZALEZ & INFECTIOUS DISEASE DR Maldonado Diabetes mellitus, type 2 IDDM Glucose fluctuates - since Covid in December 2020 On insulin pump Follows with endocrinology Dupuytren contracture Dyslipidemia History of anesthesia reaction with more recent surgeries seems it is harder to wake up History of atrial fibrillation dx while hospitalized summer 2021 History of COVID-12 January 2021 > [facility], not hospitalized, fever, ear pain- did give infusion in ER No current issues History of DVT (deep vein thrombosis) dx during hospitalization summer 2021 History of gastric ulcer summer 2021 History of pulmonary embolus (PE) dx during hospitalization summer 2021 Hydronephrosis due to obstruction of ureter Hypertension IBS (irritable bowel syndrome) Stable Insomnia Kidney stones FOLLOWS WITH DR FUCHS No current issues - monitoring currently Vertigo Surgical History History of cystoscopy WITH STENTS AND STONE BASKETING History of endoscopy History of lithotripsy History of tonsillectomy and adenoidectomy History of total hip arthroplasty LEFT Hx laparoscopic cholecystectomy Hx of colonoscopy Hx of left cataract extraction Hx of surgical amputation of finger left pinky Hx of total hysterectomy GERALD WITH BSO Hx of tubal ligation Hx of wisdom tooth extraction Status post Dupuytren's fasciectomy Family History Father , age 75 Family history of diabetes mellitus Coronary heart disease Brother Family history of diabetes mellitus Mother , age 67 Family history of diabetes mellitus Heart disease Hypertension Myocardial infarction Grandfather (Paternal) Family history of diabetes mellitus Grandmother (Paternal) Family history of diabetes mellitus Denies family history of Ovarian cancer Prostate cancer Breast cancer Colorectal cancer Social History Smoking Status: Former smoker Tobacco Type: Cigarettes Second Hand Exposure: No; Do You Dip or Chew Tobacco: No; Hx Alcohol Use: No Hx Substance Use: No Preferred Language: Armenian Communication Ability: Effective Visual Impairment: No Limitations Hearing Ability: Normal Rag Inspector Required: No Beliefs That Will Affect Care: None marital status: Current Living Situation: Alone Current Living Situation Comment: alone current occupational status: employed and disabled current occupation: [employer] does have disability for diabetes- insurance helps How many Children do You have: 2 Feels Safe at Home: Yes Childhood Exposure to Second-Hand Smoke: No Diet: diabetic caffeine: Yes during the past year weight has: increased > 10 lbs Dental Care, Regularly: No Physical Activity Frequency: Does not Exercise Seatbelt Use: always Sunscreen Use: Yes Gender Identity: Female Assistive Devices: Cane and Walker Physical Exam Vital Signs Vital Signs - 24 hr 06/23/23 20:02 06/23/23 21:27 06/23/23 22:00 Temperature 36.4 C L Temperature Source Temporal Artery Scan Pulse Rate 119 H Pulse Rate [Radial] 57 L Pulse Rhythm Regular Pulse Strength Normal Respiratory Rate 20 20 Respiratory Effort / Characteristics Non-Labored Spontaneous Non-Labored Spontaneous Respiratory Depth Normal Normal Respiratory Pattern Regular Blood Pressure 133/88 Blood Pressure [Right Arm] 184/74 H Blood Pressure Mean 103 Blood Pressure Mean [Right Arm] 110 Blood Pressure Position Sitting Pulse Oximetry 97 98 97 Oxygen Delivery Method Room Air Room Air Room Air Sepsis Recent Fever Within 48 Hours No Sepsis New/Unexplained Change in Mental Status N/A Sepsis Action Taken by Nursing No Action Required Physical Exam GENERAL: She is oriented to person, place, and time. She appears well-developed and well-nourished. She does not appear distressed. HENT: Exam performed. -Head: Normocephalic and atraumatic. -Right Ear: External ear normal. No mastoid erythema -Left Ear: External ear normal. No mastoid erythema -Mouth/Throat: The oropharynx is clear and moist. No trismus in the jaw. No dental abscesses or uvula swelling. No oropharyngeal exudate or tonsillar abscesses. EYES: Conjunctivae and EOM are normal. Pupils are equal, round, and reactive to light. Right eye exhibits no discharge. Left eye exhibits no discharge. No scleral icterus. NECK: Normal range of motion. Neck supple. No JVD present.No rigidity. No tracheal deviation and normal range of motion present. No Brudzinski's sign and no Kernig's sign noted. CV: Normal rate, regular rhythm, normal heart sounds and intact distal pulses. There is no peripheral edema. Palpable radial pulses bue. PULM/CHEST: Effort normal and breath sounds normal. No respiratory distress. No stridor. She has no wheezes. She has no rales. ABD: The abdomen is soft. There is no tenderness. There is no rebound, no guarding. MUSC/SKEL: Normal range of motion. There is no peripheral edema, tenderness or deformity. LYMPH: No cervical adenopathy. NEURO: She is alert and oriented to person, place, and time. She has normal strength. No cranial nerve deficit or sensory deficit. Coordination and gait normal. GCS eye subscore is 4. GCS verbal subscore is 5. GCS motor subscore is 6. Cerebellar tests wnl. SKIN: Skin is warm and dry. She is not diaphoretic. PSYCH: She has a normal mood and affect. Behavior is normal. Judgment and thought content normal. Course Course 2051: The patient was evaluated in room A2. A complete history and physical exam was performed Cardiac monitoring: An order was placed for continuous cardiac monitoring. The monitor shows a rate of 90 with sinus rhythm interpreted by me 2329: Vital signs stable. Labs and imaging within normal limits. Psychiatric case management discussed the case with them and they stated that the patient should be admitted medically as they did not think that the hatch would except this patient given her history and symptoms. [facility] hospitalist team will be contacted for admission. Medical Decision Making Medical Records Attestation: I reviewed the patient's medical records. External medical records were reviewed. Patient was seen in the emergency department and in February 2022 after an initial visit for headache the patient has subsequent visit in the next day had an lumbar puncture performed and was diagnosed with cryptococcal meningitis. Patient has had multiple visits to the emergency department since then. Patient was last seen in the emergency department on June 15, 2023 and was admitted from June 15 to June 21, 2023. Patient was discharged with home health services and is currently on Eliquis switched from warfarin. Patient was not evaluated by psychiatry during the last admission. Laboratory Data Attestation: I reviewed the patient's lab results. 06/23/23 21:38 06/23/23 21:38 Lab Results 06/23/23 06/23/23 06/23/23 Range/Units 21:38 21:38 21:38 WBC (4.8-10.8) K/ul RBC (4.20-5.40) M/uL Hgb (12.0-16.0) g/dl Hct (37.0-47.0) % MCV (80.0-100.0) fL MCH (25.0-34.0) pg MCHC (32.0-36.0) g/dL RDW Std Deviation (36.4-46.3) fL RDW Coeff of Jun (11.5-14.5) % Plt Count (130-400) K/uL MPV (9.4-12.4) fL Immature Gran % (Auto) % Neut % (Auto) % Lymph % (Auto) % Kane % (Auto) % Eos % (Auto) % Baso % (Auto) % Neut # (Auto) (1.40-6.50) K/uL Lymph # (Auto) (1.20-3.40) K/uL Kane # (Auto) (0.11-0.59) K/uL Eos # (Auto) (0.00-0.50) K/uL Baso # (Auto) (0.00-0.20) K/uL Immature Gran # (Auto) (0.01-0.20) K/uL PT (9.0-12.0) Seconds INR (0.9-1.1) APTT (21.0-31.0) Seconds PTT Ratio VBG pH (7.36-7.41) VBG pCO2 (38-50) mmHg VBG pO2 mmHg VBG HCO3 mmol/L VBG O2 Saturation % VBG Base Excess mEq/L Sodium 137 (136-145) mmol/L Potassium 3.9 (3.5-5.1) mmol/L Chloride 103 (98-107) mmol/L Carbon Dioxide 25 (21-32) mmol/L Anion Gap 9 (3-11) BUN 35 H (6-23) mg/dl Creatinine 0.90 (0.6-1.2) mg/dl Est Cr Clr Drug Dosing 54.5 ml/min Est GFR ( Amer) 78.3 ml/min Est GFR (Non-Af Amer) 67.6 ml/min BUN/Creatinine Ratio 38.9 H (10-20) Glucose 235 H (70-99(Fasting)) mg/dl Calcium 10.0 (8.6-10.3) mg/dl Magnesium 1.6 L (1.7-2.4) mg/dl Total Bilirubin 0.6 (0.2-1.0) mg/dl Direct Bilirubin 0.1 (0-0.2) mg/dl AST 34 (13-39) U/L ALT 22 (7-52) U/L Alkaline Phosphatase 121 H (34-104) U/L Ammonia 33.0 (18-72) umol/L Total Protein 7.7 (6.0-8.3) gm/dl Albumin 4.3 (3.4-5.0) gm/dl Lipase 40 (11-82) U/L Salicylates < 3.0 L (3.0-30) mg/dl Acetaminophen < 3 L (10-30) ug/ml Ethyl Alcohol mg/dL (<10.0) mg/dl 06/23/23 06/23/23 06/23/23 Range/Units 21:38 21:38 21:38 WBC 6.62 (4.8-10.8) K/ul RBC 4.31 (4.20-5.40) M/uL Hgb 11.6 L (12.0-16.0) g/dl Hct 35.8 L (37.0-47.0) % MCV 83.1 (80.0-100.0) fL MCH 26.9 (25.0-34.0) pg MCHC 32.4 (32.0-36.0) g/dL RDW Std Deviation 51.1 H (36.4-46.3) fL RDW Coeff of Jun 17.0 H (11.5-14.5) % Plt Count 210 (130-400) K/uL MPV 11.1 (9.4-12.4) fL Immature Gran % (Auto) 0.2 % Neut % (Auto) 53.0 % Lymph % (Auto) 36.7 % Kane % (Auto) 7.6 % Eos % (Auto) 1.7 % Baso % (Auto) 0.8 % Neut # (Auto) 3.52 (1.40-6.50) K/uL Lymph # (Auto) 2.43 (1.20-3.40) K/uL Kane # (Auto) 0.50 (0.11-0.59) K/uL Eos # (Auto) 0.11 (0.00-0.50) K/uL Baso # (Auto) 0.05 (0.00-0.20) K/uL Immature Gran # (Auto) 0.01 (0.01-0.20) K/uL PT 12.9 H (9.0-12.0) Seconds INR 1.2 H (0.9-1.1) APTT 26.2 (21.0-31.0) Seconds PTT Ratio 0.9 VBG pH (7.36-7.41) VBG pCO2 (38-50) mmHg VBG pO2 mmHg VBG HCO3 mmol/L VBG O2 Saturation % VBG Base Excess mEq/L Sodium (136-145) mmol/L Potassium (3.5-5.1) mmol/L Chloride (98-107) mmol/L Carbon Dioxide (21-32) mmol/L Anion Gap (3-11) BUN (6-23) mg/dl Creatinine (0.6-1.2) mg/dl Est Cr Clr Drug Dosing ml/min Est GFR ( Amer) ml/min Est GFR (Non-Af Amer) ml/min BUN/Creatinine Ratio (10-20) Glucose (70-99(Fasting)) mg/dl Calcium (8.6-10.3) mg/dl Magnesium (1.7-2.4) mg/dl Total Bilirubin (0.2-1.0) mg/dl Direct Bilirubin (0-0.2) mg/dl AST (13-39) U/L ALT (7-52) U/L Alkaline Phosphatase (34-104) U/L Ammonia (18-72) umol/L Total Protein (6.0-8.3) gm/dl Albumin (3.4-5.0) gm/dl Lipase (11-82) U/L Salicylates (3.0-30) mg/dl Acetaminophen (10-30) ug/ml Ethyl Alcohol mg/dL < 10.0 (<10.0) mg/dl 06/23/23 Range/Units 21:38 WBC (4.8-10.8) K/ul RBC (4.20-5.40) M/uL Hgb (12.0-16.0) g/dl Hct (37.0-47.0) % MCV (80.0-100.0) fL MCH (25.0-34.0) pg MCHC (32.0-36.0) g/dL RDW Std Deviation (36.4-46.3) fL RDW Coeff of Jun (11.5-14.5) % Plt Count (130-400) K/uL MPV (9.4-12.4) fL Immature Gran % (Auto) % Neut % (Auto) % Lymph % (Auto) % Kane % (Auto) % Eos % (Auto) % Baso % (Auto) % Neut # (Auto) (1.40-6.50) K/uL Lymph # (Auto) (1.20-3.40) K/uL Kane # (Auto) (0.11-0.59) K/uL Eos # (Auto) (0.00-0.50) K/uL Baso # (Auto) (0.00-0.20) K/uL Immature Gran # (Auto) (0.01-0.20) K/uL PT (9.0-12.0) Seconds INR (0.9-1.1) APTT (21.0-31.0) Seconds PTT Ratio VBG pH 7.42 H (7.36-7.41) VBG pCO2 44 (38-50) mmHg VBG pO2 24 mmHg VBG HCO3 29 mmol/L VBG O2 Saturation < 60.0 % VBG Base Excess 3.4 mEq/L Sodium (136-145) mmol/L Potassium (3.5-5.1) mmol/L Chloride (98-107) mmol/L Carbon Dioxide (21-32) mmol/L Anion Gap (3-11) BUN (6-23) mg/dl Creatinine (0.6-1.2) mg/dl Est Cr Clr Drug Dosing ml/min Est GFR ( Amer) ml/min Est GFR (Non-Af Amer) ml/min BUN/Creatinine Ratio (10-20) Glucose (70-99(Fasting)) mg/dl Calcium (8.6-10.3) mg/dl Magnesium (1.7-2.4) mg/dl Total Bilirubin (0.2-1.0) mg/dl Direct Bilirubin (0-0.2) mg/dl AST (13-39) U/L ALT (7-52) U/L Alkaline Phosphatase (34-104) U/L Ammonia (18-72) umol/L Total Protein (6.0-8.3) gm/dl Albumin (3.4-5.0) gm/dl Lipase (11-82) U/L Salicylates (3.0-30) mg/dl Acetaminophen (10-30) ug/ml Ethyl Alcohol mg/dL (<10.0) mg/dl Imaging Data Attestation: I personally reviewed and interpreted this imaging study as follows: My Impression: Chest x-ray: No significant change from the chest x-ray on June 15, 2023. Radiologist's Impression: Head CT 06/23/23 21:05 Exam(s): CT HEAD Without Contrast EXAM: CT Head Without Intravenous Contrast CLINICAL HISTORY: Reason for exam: ams. TECHNIQUE: Axial computed tomography images of the head/brain without intravenous contrast. CTDI is 38.49 mGy and DLP is 624.41 mGy-cm. Automated exposure control was utilized for the study. A dose lowering technique was utilized adhering to the principles of ALARA. COMPARISON: No relevant prior studies available. FINDINGS: No acute intracranial hemorrhage. No midline shift or mass effect. The territorial lawson-white matter differentiation is maintained throughout. Age-related cerebral volume loss. Periventricular and subcortical white matter hypoattenuation, consistent with chronic microangiopathy. The visualized orbits appear grossly unremarkable. The calvarium is intact. The visualized paranasal sinuses and mastoid air cells are grossly clear. IMPRESSION: No acute intracranial hemorrhage, midline shift, or mass effect. Electronically signed by: Pedro Lopez MD 06/23/23 21:33 PM ECG Data Attestation: I personally reviewed and interpreted this ECG as follows: Additional Comments: Sinus rhythm with rate 94. DC QRS and QTc intervals are within normal limits. There is baseline wander and artifact secondary to patient movement. [facility] Narrative 2051: The patient was evaluated in room A2. A complete history and physical exam was performed Cardiac monitoring: An order was placed for continuous cardiac monitoring. The monitor shows a rate of 90 with sinus rhythm interpreted by me 2329: Vital signs stable. Labs and imaging within normal limits. Psychiatric case management discussed the case with them and they stated that the patient should be admitted medically as they did not think that the hatch would except this patient given her history and symptoms. [facility] hospitalist team will be contacted for admission. Impression & Plan Hallucinations Discharge Plan Visit Data Chief Complaint: Altered Mental Status Stated Complaint: ALTERED MENTAL STATUS; NEEDS CLEARANCE ED Provider: Demetrius Andres Discharge Problem: Hallucinations Patient Disposition: Being Evaluated by Hospitalist Forms Stand Alone Forms: [facility] Prescriptions Prescriptions: No Action (DME) Contour Next Test Strips Strip See Rx Instructions .ROUTE .MEDSUPPLY Qty: 300 11RF Rx Instructions: Test blood sugars 6 times a day cholecalciferol (vitamin D3) 50 mcg (2,000 unit) capsule 2,000 unit PO DAILY Qty: 90 3RF Zyrtec 10 mg capsule 10 mg PO DAILY Qty: 90 1RF quetiapine 25 mg tablet 25 mg PO HS Qty: 30 0RF fluticasone propionate [Flonase Allergy Relief] 50 mcg/actuation spray,suspension 1 spray intranasal DAILY Qty: 16 2RF Rx Instructions: administer into each nostril pantoprazole 40 mg tablet,delayed release (DR/EC) 40 mg PO BID Qty: 180 1RF sucralfate [Carafate] 100 mg/mL suspension 10 ml PO QID Qty: 420 0RF Rx Instructions: swish in mouth and swallow; use after food/drink: May substitute tablets as a slurry. promethazine 12.5 mg tablet 12.5 mg PO TID PRN (Reason: nausea and vomiting) Qty: 30 2RF meclizine 12.5 mg tablet 12.5 mg PO QAM Qty: 30 1RF diphenhydramine HCl [Allergy (diphenhydramine)] 25 mg capsule 25 mg PO TID PRN (Reason: Allergy Symptoms) potassium chloride 20 mEq tablet extended release 20 meq PO QAM Qty: 90 2RF betamethasone dipropionate 0.05 % lotion 1 applic topical TID PRN (Reason: skin irritation) Qty: 60 0RF multivitamin tablet 1 tab PO QAM fluconazole 200 mg tablet 400 mg PO DAILY venlafaxine [Effexor XR] 150 mg capsule,extended release 24hr 150 mg PO QPM Qty: 1 0RF Rx Instructions: take with 75 cq=227 mg Saccharomyces boulardii [Florastor] 250 mg capsule 250 mg PO BID Qty: 20 0RF insulin aspart U-100 100 unit/mL (3 mL) insulin pen See Rx Instructions SUBCUT TIDM Rx Instructions: subcutaneously three times daily with meals; Per sliding scale TDD: 80 units daily. (verified pat call 09/24/22) metoprolol succinate 25 mg Tablet Extended Release 24 Hr 25 mg PO BID Qty: 60 0RF Mag 64 64 mg Tablet,Delayed Release (Dr/Ec) 64 mg PO BID Qty: 60 0RF Eliquis 5 mg Tablet 5 mg PO BID Qty: 60 0RF venlafaxine 75 mg capsule,extended release 24hr 75 mg PO QPM Qty: 30 0RF Rx Instructions: take with 150 mg [id number] mg. furosemide 20 mg tablet 20 mg PO QAM PRN (Reason: volume overload or weight gain) Qty: 30 0RF insulin glargine [Lantus Solostar U-100 Insulin] 100 unit/mL (3 mL) insulin pen 15 unit subcut AMPM Qty: 12 0RF Referrals Referrals: Leia Doyle DO [Primary Care Provider] -
--- NOTE | 2023-06-23 21:34 | CT Scan Report ---
Exam(s): CT HEAD Without Contrast EXAM: CT Head Without Intravenous Contrast CLINICAL HISTORY: Reason for exam: ams. TECHNIQUE: Axial computed tomography images of the head/brain without intravenous contrast. CTDI is 38.49 mGy and DLP is 624.41 mGy-cm. Automated exposure control was utilized for the study. A dose lowering technique was utilized adhering to the principles of ALARA. COMPARISON: No relevant prior studies available. FINDINGS: No acute intracranial hemorrhage. No midline shift or mass effect. The territorial lawson-white matter differentiation is maintained throughout. Age-related cerebral volume loss. Periventricular and subcortical white matter hypoattenuation, consistent with chronic microangiopathy. The visualized orbits appear grossly unremarkable. The calvarium is intact. The visualized paranasal sinuses and mastoid air cells are grossly clear. IMPRESSION: No acute intracranial hemorrhage, midline shift, or mass effect. Electronically signed by: Pedro Lopez MD 06/23/23 21:33 PM
[2023-06-23 21:52] LABS: Base Excess VBG 3.4 mEq/L; HCO3 VBG 29 mmol/L; Oxygen Saturation VBG < 60.0 %; PCO2 VBG 44 mmHg (38-50); PO2 VBG 24 mmHg; pH VBG 7.42 (7.36-7.41)
[2023-06-23 21:57] LABS: Basophils # (auto) 0.05 K/uL (0.00-0.20); Basophils % (auto) 0.8 %; Eosinophils # (auto) 0.11 K/uL (0.00-0.50); Eosinophils % (auto) 1.7 %; Hematocrit (blood only) 35.8 % (37.0-47.0); Hemoglobin 11.6 g/dl (12.0-16.0); Immature Granulocytes # (auto) 0.01 K/uL (0.01-0.20); Immature Granulocytes % (auto) 0.2 %; Lymphocytes # (auto) 2.43 K/uL (1.20-3.40); Lymphocytes % (auto) 36.7 %; Mean Corpuscular Hemoglobin 26.9 pg (25.0-34.0); Mean Corpuscular Hgb Conc 32.4 g/dL (32.0-36.0); Mean Corpuscular Volume 83.1 fL (80.0-100.0); Mean Platelet Volume 11.1 fL (9.4-12.4); Monocytes % (auto) 7.6 %; Neutrophils # (auto) 3.52 K/uL (1.40-6.50); Platelet Count 210 K/uL (130-400); RDW Standard Deviation 51.1 fL (36.4-46.3); Red Blood Count 4.31 M/uL (4.20-5.40); White Blood Count 6.62 K/ul (4.8-10.8)
[2023-06-23 22:14] LABS: Albumin Level 4.3 gm/dl (3.4-5.0); Bilirubin Direct 0.1 mg/dl (0-0.2); Bilirubin,Total 0.6 mg/dl (0.2-1.0); Magnesium 1.6 mg/dl (1.7-2.4); Potassium 3.9 mmol/L (3.5-5.1)
[2023-06-23 22:20] LABS: BUN Creatinine Ratio 38.9 (10-20); Creatinine Clr Calc Pharmacy 54.5 ml/min; Est GFR (African American) 78.3 ml/min; Est GFR (Non-African American) 67.6 ml/min; Total Protein 7.7 gm/dl (6.0-8.3)
[2023-06-23 22:24] LABS: Acetaminophen < 3 ug/ml (10-30); Salicylate < 3.0 mg/dl (3.0-30)
[2023-06-23 22:31] LABS: INR 1.2 (0.9-1.1); Partial Thromboplastin Ratio 0.9; Partial Thromboplastin Time 26.2 Seconds (21.0-31.0); Prothrombin Time 12.9 Seconds (9.0-12.0)
[2023-06-23 23:53] LABS: Appearance Urine Clear (Clear); Bacteria Urine Automated Negative (Negative); Bilirubin Urine Negative (Negative); Blood Urine Negative (Negative); Color Urine Dark Yellow; Epithelial Cell Urine Auto >30 /lpf (0-5); Glucose Urine UA Trace (Negative); Ketones Urine Negative (Negative); Leukocyte Esterase Urine Trace (Negative); Nitrite Urine Negative (Negative); Protein Urine 1+ (Negative); RBC Urine Automated 0-4 /hpf (0-4); Specific Gravity Urine 1.025 (1.000-1.030); Urobilinogen Urine Negative (Negative); pH Urine 5.5 (4.5-7.5)
--- NOTE | 2023-06-24 01:22 | History & Physical Report ---
Date of Service June 24, 2023 Assessment & Plan (1) Hallucinations: Plan: 63 yo female with PMHx h/o cryptococcal meningitis, auditory/visual hallucinations, cirrhosis, DM2, afib, hypomagnesemia, hypokalemia, HLD, peripheral edema, anxiety, depression, gastritis, and HTN presents with worsening hallucinations. #Auditory/visual hallucinations, acute on chronic in exacerbation #Memory deficit -pt experiencing increasing hallucinations over the past few days. These seem to be chronic in nature. Unclear if these were in association with her cryptococcal meningitis in the past. Her son states she has been forgetting things more often as well. No symptoms to suggest active meningitis at this time but unclear if further workup for sequelae effects of previous infection are warranted. She has been seen by psychiatry inpatient who placed her on seroquel which did initially help with anxiety/hallucinations. Labs unremarkable. Afebrile. -consider neuro and/or psych consultation. -Her son did call the [facility] today and they do have beds available for her. They stated she needs medical clearance hence part of the reason she is here with us today. -cont. seroquel #H/o cryptococcal meningitis - cont. suppression therapy with fluconazole (has been on this since March 2022). Cont. florastor. Follows with ID. #Afib -cont. eliquis, metoprolol -of note, eliquis was switched from warfarin during prior hospitalization #Peripheral edema -furosemide prn for volume overload and weight changes #Hypokalemia -chronic, cont. potassium replacement #Hypomagnesemia -chronic, cont. magnesium chloride #Anxiety #Depression -cont. venlafaxine #Cirrhosis of liver - chronic, no acute decompensation #HTN -cont. metoprolol -losartan d/c'd last visit due to hypotension #HLD -not on medication, statin intolerant #DM2 -insulin dependent -cont. home basal regimen + SSI. During previous hospitalization basal insulin was decreased due to hypoglycemic episodes. #Gastritis -cont. protonix, sucralfate DVT ppx: eliquis FEN/GI: HH, DM2 Code Status: full Dispo: med surg (2) Paroxysmal A-fib: (3) Diabetes mellitus type 2, insulin dependent: (4) Cryptococcal meningitis: (5) Hypertension: (6) Cirrhosis of liver: (7) Hypomagnesemia: (8) Hypokalemia: (9) Gastritis: (10) Depression: History of Present Illness Chief Complaint: hallucinations Primary Care Provider: Leia Doyle, DO 63 yo female with PMHx h/o cryptococcal meningitis, auditory/visual hallucinations, cirrhosis, DM2, afib, hypomagnesemia, hypokalemia, HLD, peripheral edema, anxiety, depression, gastritis, and HTN presents with worsening hallucinations. Patient was just discharged from [facility] 2 days ago for weakness secondary to prolonged diarrhea. She lives on her own. Son is at bedside. She presents today with increasing auditory and visual hallucinations. She states that she cannot tell what is real and what is not. For example if she sees a picture of someone on her phone she believes that the person speaking to her. She has had these hallucinations for years now but they seem to be worsening especially over the last few days. Her son states that when he went to go visit her today she was still in the same clothing from few days ago. He also states that for some time now she has been eating less and forgetting things easily. She does have a history of cryptococcal meningitis a couple of years ago which she followed up with neurology for and subsequent testing was negative. Her son has been in contact with [facility] last couple of days for potential placement and they stated they do have beds available but she does need medical clearance prior to being placed. She has chronic frontal headache and some anterior neck tightness. Otherwise denies visual changes (aside from visual hallucinations), fever, fatigue, chest pain, shortness of breath, abdominal pain, nausea, vomiting, diarrhea, weakness. Allergies Allergy/AdvReac Type Severity Reaction Status Date / Time Penicillins Allergy Intermediate Hives Verified 06/23/23 20:51 atorvastatin Allergy Unknown CAN'T Verified 06/23/23 20:51 REMEMBER/? RAISED LIVER LEVELS gemfibrozil [From Lopid] Allergy Unknown CAN'T Verified 06/23/23 20:51 REMEMBER/ ? RAISED LIVER LEVELS rosuvastatin AdvReac Intermediate Muscle Pain Verified 06/23/23 20:51 acetaminophen [From Tylenol] AdvReac Unknown CAN NOT Verified 06/23/23 20:51 TAKE D/T LIVER ISSUES ibuprofen AdvReac Unknown liver Verified 06/23/23 20:51 issues Home Medications Medication Instructions Recorded Confirmed Type multivitamin 1 tab PO QAM 09/07/19 06/23/23 History Contour Next Test Strips (blood #300 ea 12/29/20 06/23/23 Rx sugar diagnostic) insulin aspart U-100 100 unit/mL See Rx Instructions subcut TIDM 06/29/22 06/23/23 History (3 mL) subcutaneous pen fluconazole 200 mg tablet 400 mg PO DAILY 11/05/22 06/23/23 History cholecalciferol (vitamin D3) 50 2,000 unit PO DAILY #90 caps 02/10/23 06/23/23 Rx mcg (2,000 unit) capsule cetirizine 10 mg capsule (Zyrtec) 10 mg PO DAILY allergy symptoms 02/25/23 06/23/23 Rx #90 caps betamethasone dipropionate 0.05 % 1 applic topical TID PRN skin 04/08/23 06/23/23 Rx lotion irritation #60 mL venlafaxine 150 mg 150 mg PO QPM #1 cap 04/14/23 06/23/23 Rx capsule,extended release 24 hr (Effexor XR) diphenhydramine HCl 25 mg capsule 25 mg PO TID PRN Allergy Symptoms 04/22/23 06/23/23 History (Allergy (diphenhydramine)) potassium chloride 20 mEq 20 meq PO QAM #90 tabs 04/22/23 06/23/23 Rx tablet,extended release quetiapine 25 mg tablet 25 mg PO HS #30 tabs 05/16/23 06/23/23 Rx fluticasone propionate 50 1 spray intranasal DAILY #16 grams 05/20/23 06/23/23 Rx mcg/actuation nasal spray,suspension (Flonase Allergy Relief) Saccharomyces boulardii 250 mg 250 mg PO BID #20 caps 05/31/23 06/23/23 Rx capsule (Florastor) pantoprazole 40 mg tablet,delayed 40 mg PO BID #180 tabs 06/01/23 06/23/23 Rx release sucralfate 100 mg/mL oral 10 ml PO QID #420 mL 06/14/23 06/23/23 Rx suspension (Carafate) promethazine 12.5 mg tablet 12.5 mg PO TID PRN nausea and 06/15/23 06/23/23 Rx vomiting #30 tabs apixaban 5 mg tablet (Eliquis) 5 mg PO BID #60 tabs 06/21/23 06/23/23 Rx furosemide 20 mg tablet 20 mg PO QAM PRN volume overload 06/21/23 06/23/23 Rx or weight gain #30 tabs insulin glargine 100 unit/mL (3 15 unit (0.15 mL) subcut AMPM #12 06/21/23 06/23/23 Rx mL) subcutaneous pen (Lantus mL Solostar U-100 Insulin) magnesium chloride 64 mg 64 mg PO BID #60 tabs 06/21/23 06/23/23 Rx (magnesium chloride) tablet,delayed release (Mag 64) metoprolol succinate 25 mg 25 mg PO BID #60 tabs 06/21/23 06/23/23 Rx tablet,extended release 24 hr venlafaxine 75 mg capsule,extended 75 mg PO QPM #30 caps 06/21/23 06/23/23 Rx release 24 hr meclizine 12.5 mg tablet 12.5 mg PO QAM #30 tabs 06/23/23 06/23/23 Rx Past Med/Surg History Medical History Acid reflux Anxiety Cirrhosis of liver FOLLOWS W/ [facility] Stable currently 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[facility] for 4 mon summer [address] GONZALEZ & INFECTIOUS DISEASE DR Maldonado Diabetes mellitus, type 2 IDDM Glucose fluctuates - since Covid in December 2020 On insulin pump Follows with endocrinology Dupuytren contracture Dyslipidemia History of anesthesia reaction with more recent surgeries seems it is harder to wake up History of atrial fibrillation dx while hospitalized summer 2021 History of COVID-12 January 2021 > [facility], not hospitalized, fever, ear pain- did give infusion in ER No current issues History of DVT (deep vein thrombosis) dx during hospitalization summer 2021 History of gastric ulcer summer 2021 History of pulmonary embolus (PE) dx during hospitalization summer 2021 Hydronephrosis due to obstruction of ureter Hypertension IBS (irritable bowel syndrome) Stable Insomnia Kidney stones FOLLOWS WITH DR FUCHS No current issues - monitoring currently Vertigo Surgical History History of cystoscopy WITH STENTS AND STONE BASKETING History of endoscopy History of lithotripsy History of tonsillectomy and adenoidectomy History of total hip arthroplasty LEFT Hx laparoscopic cholecystectomy Hx of colonoscopy Hx of left cataract extraction Hx of surgical amputation of finger left pinky Hx of total hysterectomy GERALD WITH BSO Hx of tubal ligation Hx of wisdom tooth extraction Status post Dupuytren's fasciectomy Family History Father , age 75 Family history of diabetes mellitus Coronary heart disease Brother Family history of diabetes mellitus Mother , age 67 Family history of diabetes mellitus Heart disease Hypertension Myocardial infarction Grandfather (Paternal) Family history of diabetes mellitus Grandmother (Paternal) Family history of diabetes mellitus Denies family history of Ovarian cancer Prostate cancer Breast cancer Colorectal cancer Social History Smoking Status: Former smoker Tobacco Type: Cigarettes Second Hand Exposure: No; Do You Dip or Chew Tobacco: No; Hx Alcohol Use: No Hx Substance Use: No Preferred Language: Citizen Of [place] Communication Ability: Effective Visual Impairment: No Limitations Hearing Ability: Normal [employer] Required: No Beliefs That Will Affect Care: None marital status: Current Living Situation: Alone Current Living Situation Comment: alone current occupational status: employed and disabled current occupation: [employer]-pt does have disability for diabetes- insurance helps How many Children do You have: 2 Other Information That Helps Us Care for You: No Feels Safe at Home: Yes Childhood Exposure to Second-Hand Smoke: No Diet: diabetic caffeine: Yes during the past year weight has: increased > 10 lbs Dental Care, Regularly: No Physical Activity Frequency: Does not Exercise Seatbelt Use: always Sunscreen Use: Yes Gender Identity: Female Assistive Devices: None Review of Systems Review of Systems: All systems reviewed & are unremarkable except as noted in HPI & below Physical Exam Physical Exam: Constitutional: in no acute distress, pleasant and normal affect, intact memory. AOx3. Vitals as above. HEENT: No scleral injection or discharge.Moist mucous membranes. Neck: Supple without lymphadenopathy or thyromegaly. Trachea midline. Lungs: Clear to auscultation bilaterally with good effort. No wheezes/rales/rhonchi. Cardiac: RRRNo murmurs.No extremity edema. 2+ distal peripheral pulses. Abdomen: Soft, nontender, and nondistended.No guarding. No hepatosplenomegaly. MSK: No cyanosis or clubbing. Extremities motor strength 5/5. Skin: No rashes, warm, dry. Neurologic: Grossly intact cranial nerves. PERRL. Results & Data Results & Data Vital Signs (Past 12 Hours) Vital Signs Temp Pulse Pulse Pulse Resp BP BP 06/24/23 01:00 92 H 18 127/86 06/24/23 00:27 90 16 125/90 06/23/23 23:23 94 H 18 146/103 H 06/23/23 22:00 57 L 20 184/74 H 06/23/23 21:27 06/23/23 20:02 36.4 C L 119 H 20 133/88 Pulse Ox O2 Del Method 06/24/23 01:00 98 Room Air 06/24/23 00:27 100 Room Air 06/23/23 23:23 98 Room Air 06/23/23 22:00 97 Room Air 06/23/23 21:27 98 Room Air 06/23/23 20:02 97 Room Air Laboratory Results Laboratory Results WBC 6.62 K/ul (4.8-10.8) 06/23/23 21:38 RBC 4.31 M/uL (4.20-5.40) 06/23/23 21:38 Hgb 11.6 g/dl (12.0-16.0) L 06/23/23 21:38 Hct 35.8 % (37.0-47.0) L 06/23/23 21:38 MCV 83.1 fL (80.0-100.0) 06/23/23 21:38 MCH 26.9 pg (25.0-34.0) 06/23/23 21:38 MCHC 32.4 g/dL (32.0-36.0) 06/23/23 21:38 RDW Std Deviation 51.1 fL (36.4-46.3) H 06/23/23 21:38 RDW Coeff of Jun 17.0 % (11.5-14.5) H 06/23/23 21:38 Plt Count 210 K/uL (130-400) 06/23/23 21:38 MPV 11.1 fL (9.4-12.4) 06/23/23 21:38 Immature Gran % (Auto) 0.2 % 06/23/23 21:38 Neut % (Auto) 53.0 % 06/23/23 21:38 Lymph % (Auto) 36.7 % 06/23/23 21:38 [place] % (Auto) 7.6 % 06/23/23 21:38 Eos % (Auto) 1.7 % 06/23/23 21:38 Baso % (Auto) 0.8 % 06/23/23 21:38 Neut # (Auto) 3.52 K/uL (1.40-6.50) 06/23/23 21:38 Lymph # (Auto) 2.43 K/uL (1.20-3.40) 06/23/23 21:38 [place] # (Auto) 0.50 K/uL (0.11-0.59) 06/23/23 21:38 Eos # (Auto) 0.11 K/uL (0.00-0.50) 06/23/23 21:38 Baso # (Auto) 0.05 K/uL (0.00-0.20) 06/23/23 21:38 Immature Gran # (Auto) 0.01 K/uL (0.01-0.20) 06/23/23 21:38 PT 12.9 Seconds (9.0-12.0) H 06/23/23 21:38 INR 1.2 (0.9-1.1) H 06/23/23 21:38 APTT 26.2 Seconds (21.0-31.0) 06/23/23 21:38 PTT Ratio 0.9 06/23/23 21:38 VBG pH 7.42 (7.36-7.41) H 06/23/23 21:38 VBG pCO2 44 mmHg (38-50) 06/23/23 21:38 VBG pO2 24 mmHg 06/23/23 21:38 VBG HCO3 29 mmol/L 06/23/23 21:38 VBG O2 Saturation < 60.0 % 06/23/23 21:38 VBG Base Excess 3.4 mEq/L 06/23/23 21:38 Sodium 137 mmol/L (136-145) 06/23/23 21:38 Potassium 3.9 mmol/L (3.5-5.1) 06/23/23 21:38 Chloride 103 mmol/L (98-107) 06/23/23 21:38 Carbon Dioxide 25 mmol/L (21-32) 06/23/23 21:38 Anion Gap 9 (3-11) 06/23/23 21:38 BUN 35 mg/dl (6-23) H 06/23/23 21:38 Creatinine 0.90 mg/dl (0.6-1.2) 06/23/23 21:38 Est Cr Clr Drug Dosing 54.5 ml/min 06/23/23 21:38 Est GFR ( Amer) 78.3 ml/min 06/23/23 21:38 Est GFR (Non-Af Amer) 67.6 ml/min 06/23/23 21:38 BUN/Creatinine Ratio 38.9 (10-20) H 06/23/23 21:38 Glucose 235 mg/dl (70-99(Fasting)) H 06/23/23 21:38 Calcium 10.0 mg/dl (8.6-10.3) 06/23/23 21:38 Magnesium 1.6 mg/dl (1.7-2.4) L 06/23/23 21:38 Total Bilirubin 0.6 mg/dl (0.2-1.0) 06/23/23 21:38 Direct Bilirubin 0.1 mg/dl (0-0.2) 06/23/23 21:38 AST 34 U/L (13-39) 06/23/23 21:38 ALT 22 U/L (7-52) 06/23/23 21:38 Alkaline Phosphatase 121 U/L (34-104) H 06/23/23 21:38 Ammonia 33.0 umol/L (18-72) 06/23/23 21:38 Total Protein 7.7 gm/dl (6.0-8.3) 06/23/23 21:38 Albumin 4.3 gm/dl (3.4-5.0) 06/23/23 21:38 Lipase 40 U/L (11-82) 06/23/23 21:38 Urine Color Dark Yellow 06/23/23 23:20 Urine Appearance Clear (Clear) 06/23/23 23:20 Urine pH 5.5 (4.5-7.5) 06/23/23 23:20 Ur Specific Igo 1.025 (1.000-1.030) 06/23/23 23:20 Urine Protein 1+ (Negative) H 06/23/23 23:20 Urine Glucose (UA) Trace (Negative) H 06/23/23 23:20 Urine Ketones Negative (Negative) 06/23/23 23:20 Urine Blood Negative (Negative) 06/23/23 23:20 Urine Nitrite Negative (Negative) 06/23/23 23:20 Urine Bilirubin Negative (Negative) 06/23/23 23:20 Urine Urobilinogen Negative (Negative) 06/23/23 23:20 Ur Leukocyte Esterase Trace (Negative) H 06/23/23 23:20 Urine WBC (Auto) 10-30 /hpf (0-5) H 06/23/23 23:20 Urine RBC (Auto) 0-4 /hpf (0-4) 06/23/23 23:20 U Hyaline Cast (Auto) 5-10 /lpf (0-5) H 06/23/23 23:20 U Epithel Cells (Auto) >30 /lpf (0-5) H 06/23/23 23:20 Urine Bacteria (Auto) Negative (Negative) 06/23/23 23:20 Salicylates < 3.0 mg/dl (3.0-30) L 06/23/23 21:38 Acetaminophen < 3 ug/ml (10-30) L 06/23/23 21:38 Ethyl Alcohol mg/dL < 10.0 mg/dl (<10.0) 06/23/23 21:[address] 06/23/23 21:05 Exam(s): CT HEAD Without Contrast EXAM: CT Head Without Intravenous Contrast CLINICAL HISTORY: Reason for exam: ams. TECHNIQUE: Axial computed tomography images of the head/brain without intravenous contrast. CTDI is 38.49 mGy and DLP is 624.41 mGy-cm. Automated exposure control was utilized for the study. A dose lowering technique was utilized adhering to the principles of ALARA. COMPARISON: No relevant prior studies available. FINDINGS: No acute intracranial hemorrhage. No midline shift or mass effect. The territorial lawson-white matter differentiation is maintained throughout. Age-related cerebral volume loss. Periventricular and subcortical white matter hypoattenuation, consistent with chronic microangiopathy. The visualized orbits appear grossly unremarkable. The calvarium is intact. The visualized paranasal sinuses and mastoid air cells are grossly clear. IMPRESSION: No acute intracranial hemorrhage, midline shift, or mass effect. Electronically signed by: Pedro Lopez MD 06/23/23 21:33 PM Code Status & VTE Plan VTE Prophylaxis Plan VTE Prophylaxis will be ordered: Yes Supervising Physician Co-Signing Physician Notes Attending addendum: I have physically seen this patient, have supervised the medical residents activities, and agree with the H&P unless as otherwise noted. Assessment and Plan: Acute on chronic auditory/visual hallucinations- Patient with history of cryptococcal meningitis on 03/06/2022, and abnormal MRI brain involving meningitis of the cerebellum on 07/07/2022 We will need to make certain that the hallucinations he is experiencing is not a early case of meningitis as opposed to being a psychiatric illness Will consult infectious disease, and if needed neurology or psychiatry, to determine whether patient is acceptable to be admitted to the [facility], where there is a bed available at this time Cryptococcal meningitis- Continue suppression with fluconazole We will consult infectious disease Atrial fibrillation- Continue Eliquis and metoprolol Optimize magnesium and potassium and follow laboratory serially Resident Activity Tracking Resident Involvement: Resident Care Provided Care Provided: Adult Hospital Medicine (5) Hypertension Hypertension type: essential hypertension Qualified Code(s): I10 - Essential (primary) hypertension (10) Depression Depression Type: unspecified Qualified Code(s): F32.9 - Major depressive disorder, single episode, unspecified
[2023-06-24] MEDS ORDERED: CARBOHYDRATES FOR HYPOGLYCEMIA PO PRN (02:24)
[2023-06-24] MEDS ORDERED: DEXTROSE 50% 50 ML SYRINGE IV PRN (02:24)
[2023-06-24] MEDS ORDERED: POLYETHYLENE (MIRALAX) 17 GM PACK PO PRN (02:24)
[2023-06-24] MEDS ORDERED: GLUCOSE 40% GEL 15 GM TUBE PO PRN (02:24)
[2023-06-24] MEDS ORDERED: GLUCAGON FOR INJ 1 MG VIAL SQ PRN (02:24)
[2023-06-24] MEDS ORDERED: GLUCOSE 10 TAB/TUBE PO PRN (02:24)
[2023-06-24] MEDS: LANTUS PER UNIT CHARGE SQ SCH ×2 (04:51→21:19)
[2023-06-24] MEDS ORDERED: SUCRALFATE 1 GM/10 ML UDC PO ONE (05:07)
--- NOTE | 2023-06-24 08:01 | XRay Report ---
XR chest 1V portable CLINICAL HISTORY: ams TECHNIQUE: Single frontal radiograph of the chest was obtained. Comparison: Comparison is made to chest radiograph 06/15/2023 FINDINGS: No lines and tubes are seen. The cardiomediastinal silhouette is normal. The lungs are clear. No evid ence of pleural effusion or pneumothorax. IMPRESSION: No acute chest disease. ACT 112: Negative or not required by law. Electronically signed by: Sukhjinder Orozco M.D. 06/24/2023 8:00 AM
[2023-06-24] MEDS: CHOLECALCIFEROL 1,000 UNITS 25 MCG TAB PO SCH (08:27)
[2023-06-24] MEDS: MAGNESIUM CHLORIDE W/CALCIUM 64MG DELAYED REL TAB PO SCH ×2 (08:27→20:01)
[2023-06-24] MEDS: MECLIZINE 12.5 MG TAB PO SCH (08:27)
[2023-06-24] MEDS: MULTIVITAMIN TAB PO SCH (08:27)
[2023-06-24] MEDS: METOPROLOL SUCC 25MG EXT REL TAB PO SCH ×2 (08:27→20:01)
[2023-06-24] MEDS: APIXABAN 5 MG TABLET PO SCH ×2 (08:27→20:01)
[2023-06-24] MEDS: PANTOprazole 40 MG TAB PO SCH ×2 (08:27→20:02)
[2023-06-24] MEDS: FLUTICASONE PROPIONATE NA SPR 16 GM BTL SCH (08:27)
[2023-06-24] MEDS: FLUCONAZOLE 100 MG TAB PO SCH (08:27)
[2023-06-24] MEDS: SACCHAROMYCES BOULARDII 250 MG CAP PO SCH ×2 (08:28→20:03)
[2023-06-24] MEDS: POTASSIUM CHLORIDE CRTAB 20 MEQ TABCR PO SCH (08:28)
[2023-06-24] MEDS: SUCRALFATE 1 GM/10 ML UDC PO SCH ×4 (08:28→20:03)
[2023-06-24] MEDS: INSULIN ASPART PER UNIT CHARGE SC SCH ×4 (09:11→21:19)
--- NOTE | 2023-06-24 12:02 | Infectious Disease Consult ---
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 ID consulted for evaluation. Review of Dr. Huggins of [place] note from 12/02/22 states shew initially diagnosed with cryptococcal meningitis in 02/2022 at [facility] and transferred to [facility]. She was treated with liposomal amphotericin and flucytosine through 03/16/22 followed by fluconazole 400mg daily for 8 weeks through 05/12/23. The she was changed to 200mg dailyon 05/13/22 for anticipated 1 year of therapy but in 07/17 dose was increased to 400mg daily d/t vertigo and hallucinations. There was discussion at that time to change to isavuconazole because of drug interaction. She was admitted to [facility] in 05/2023 for weakness. ID was not consulted during that time. Her weakness was though to be secondary to episodic diarrhea from fluconazole. For her afib she was changed from warfarin to Eliquis. She was also diagnosed with UTI, notably Ucx grew She received Cefdinir On 06/23 she returned to ED with her son as he was concerned for increasing molina ucinations. He reported that since the patient was discharged she has been having increased hallucinations talking to people who are not there including pictures on her cell phone thinking they are real people. Her VSS, CMP normal, aphos slightly increased to 121. UA shows 10-30 wbcs On my exam today, she appears well and tells me her son is worried about her. She currently denies hearing voices or seeing people but upon further discussion does admit that a picture spoke to her awhile ago. No FLOWERS, visual changes, neck stiffness. No fevers/chills/diarrhea/rash/sob/cp Discussion: She appear stable to me today. Upon further discussion, she does have a history hallucinations which is unclear if this preceeded her cryptococcal diagnosis. I attempted to call her ID doctor and left message. I spoke with Primary, recommend MRI Recommend: -Check MRI -No headache, meningeal findings and HD stable -C/W fluconazole for now -Await discussion with her ID Doctor -Psychiatry evaluation Consultation Information Consultation was provided via telemedicine using two-way real-time interactive telecommunication between the patient and the telemedicine provider. For the duration of the visit, the provider was performing the assessment from a different facility than the patient. This includesuse of bluetooth stethoscope forauscultationperformed by the telepresenter that the telemedicine provider can hear if described in the physical exam. [employer] contact information: Please call [facility] . (Phone Number For Physician Use Only) After establishing a telemedicine visit, patient was: Patient was verified with two unique identifiers, Patient/authorized rep acknowledged consent and understanding and Gave permission to continue telehealth session Time Spent with Patient: Initial => 55 min History of Present Illness Reason for Consultation: h/o crypto meningitis on suppressive therapy, hallucinations Requesting Physician: Dr. 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 ID consulted for evaluation. Review of Dr. Huggins of [place] note from 12/02/22 states shew initially diagnosed with cryptococcal meningitis in 02/2022 at [facility] and transferred to [facility]. She was treated with liposomal amphotericin and flucytosine through 03/16/22 followed by fluconazole 400mg daily for 8 weeks through 05/12/23. The she was changed to 200mg dailyon 05/13/22 for anticipated 1 year of therapy but in 07/17 dose was increased to 400mg daily d/t vertigo and hallucinations. There was discussion at that time to change to isavuconazole because of drug interaction. She was admitted to [facility] in 05/2023 for weakness. ID was not consulted during that time. Her weakness was though to be secondary to episodic diarrhea from fluconazole. For her afib she was changed from warfarin to Eliquis. She was also diagnosed with UTI, notably Ucx grew She received Cefdinir On 06/23 she returned to ED with her son as he was concerned for increasing hallu cinations. He reported that since the patient was discharged she has been having increased hallucinations talking to people who are not there including pictures on her cell phone thinking they are real people. Her VSS, CMP normal, aphos slightly increased to 121. UA shows 10-30 wbcs Prior labs HIV NR 03/02/22, Serum Crypto antigen positive 07/07/22, CSF cryto negative 07/07/22 05/31/23 Ucx>100,000 cfu/mL MSSA, 80,000 Ecoli panS 06/15/23 Ucx probable skin seda 06/15 Bcx ng 06/23 Ucx P On my exam today, she appears well and tells me her son is worried about her. She currently denies hearing voices or seeing people but upon further discussion does admit that a picture spoke to her awhile ago. No FLOWERS, visual changes, neck stiffness. No fevers/chills/diarrhea/rash/sob/cp Allergies Allergy/AdvReac Type Severity Reaction Status Date / Time Penicillins Allergy Intermediate Hives Verified 06/23/23 20:51 atorvastatin Allergy Unknown CAN'T Verified 06/23/23 20:51 REMEMBER/? RAISED LIVER LEVELS gemfibrozil [From Lopid] Allergy Unknown CAN'T Verified 06/23/23 20:51 REMEMBER/ ? RAISED LIVER LEVELS rosuvastatin AdvReac Intermediate Muscle Pain Verified 06/23/23 20:51 acetaminophen [From Tylenol] AdvReac Unknown CAN NOT Verified 06/23/23 20:51 TAKE D/T LIVER ISSUES ibuprofen AdvReac Unknown liver Verified 06/23/23 20:51 issues Home Medications Medication Instructions Recorded Confirmed Type multivitamin 1 tab PO QAM 09/07/19 06/23/23 History Contour Next Test Strips (blood #300 ea 12/29/20 06/23/23 Rx sugar diagnostic) insulin aspart U-100 100 unit/mL See Rx Instructions subcut TIDM 06/29/22 06/23/23 History (3 mL) subcutaneous pen fluconazole 200 mg tablet 400 mg PO DAILY 11/05/22 06/23/23 History cholecalciferol (vitamin D3) 50 2,000 unit PO DAILY #90 caps 02/10/23 06/23/23 Rx mcg (2,000 unit) capsule cetirizine 10 mg capsule (Zyrtec) 10 mg PO DAILY allergy symptoms 02/25/23 06/23/23 Rx #90 caps betamethasone dipropionate 0.05 % 1 applic topical TID PRN skin 04/08/23 06/23/23 Rx lotion irritation #60 mL venlafaxine 150 mg 150 mg PO QPM #1 cap 04/14/23 06/23/23 Rx capsule,extended release 24 hr (Effexor XR) diphenhydramine HCl 25 mg capsule 25 mg PO TID PRN Allergy Symptoms 04/22/23 06/23/23 History (Allergy (diphenhydramine)) potassium chloride 20 mEq 20 meq PO QAM #90 tabs 04/22/23 06/23/23 Rx tablet,extended release quetiapine 25 mg tablet 25 mg PO HS #30 tabs 05/16/23 06/23/23 Rx fluticasone propionate 50 1 spray intranasal DAILY #16 grams 05/20/23 06/23/23 Rx mcg/actuation nasal spray,suspension (Flonase Allergy Relief) Saccharomyces boulardii 250 mg 250 mg PO BID #20 caps 05/31/23 06/23/23 Rx capsule (Florastor) pantoprazole 40 mg tablet,delayed 40 mg PO BID #180 tabs 06/01/23 06/23/23 Rx release sucralfate 100 mg/mL oral 10 ml PO QID #420 mL 06/14/23 06/23/23 Rx suspension (Carafate) promethazine 12.5 mg tablet 12.5 mg PO TID PRN nausea and 06/15/23 06/23/23 Rx vomiting #30 tabs apixaban 5 mg tablet (Eliquis) 5 mg PO BID #60 tabs 06/21/23 06/23/23 Rx furosemide 20 mg tablet 20 mg PO QAM PRN volume overload 06/21/23 06/23/23 Rx or weight gain #30 tabs insulin glargine 100 unit/mL (3 15 unit (0.15 mL) subcut AMPM #12 06/21/23 06/23/23 Rx mL) subcutaneous pen (Lantus mL Solostar U-100 Insulin) magnesium chloride 64 mg 64 mg PO BID #60 tabs 06/21/23 06/23/23 Rx (magnesium chloride) tablet,delayed release (Mag 64) metoprolol succinate 25 mg 25 mg PO BID #60 tabs 06/21/23 06/23/23 Rx tablet,extended release 24 hr venlafaxine 75 mg capsule,extended 75 mg PO QPM #30 caps 06/21/23 06/23/23 Rx release 24 hr meclizine 12.5 mg tablet 12.5 mg PO QAM #30 tabs 06/23/23 06/23/23 Rx Patient History Medical History Acid reflux Anxiety Cirrhosis of liver FOLLOWS W/ [facility] Stable currently 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[facility] for 4 mon summer [address] GONZALEZ & INFECTIOUS DISEASE Depression Diabetes mellitus, type 2 IDDM Glucose fluctuates - since Covid in December 2020 On insulin pump Follows with endocrinology Dupuytren contracture Dyslipidemia History of anesthesia reaction with more recent surgeries seems it is harder to wake up History of atrial fibrillation dx while hospitalized summer 2021 History of COVID-12 January 2021 > [facility], not hospitalized, fever, ear pain- did give infusion in ER No current issues History of DVT (deep vein thrombosis) dx during hospitalization summer 2021 History of gastric ulcer summer 2021 History of pulmonary embolus (PE) dx during hospitalization summer 2021 Hydronephrosis due to obstruction of ureter Hypertension IBS (irritable bowel syndrome) Stable Insomnia Kidney stones FOLLOWS WITH DR FUCHS No current issues - monitoring currently Vertigo Surgical History History of cystoscopy WITH STENTS AND STONE BASKETING History of endoscopy History of lithotripsy History of tonsillectomy and adenoidectomy History of total hip arthroplasty LEFT Hx laparoscopic cholecystectomy Hx of colonoscopy Hx of left cataract extraction Hx of surgical amputation of finger left pinky Hx of total hysterectomy GERALD WITH BSO Hx of tubal ligation Hx of wisdom tooth extraction Status post Dupuytren's fasciectomy Family History Father , age 75 Family history of diabetes mellitus Coronary heart disease Brother Family history of diabetes mellitus Mother , age 67 Family history of diabetes mellitus Heart disease Hypertension Myocardial infarction Grandfather (Paternal) Family history of diabetes mellitus Grandmother (Paternal) Family history of diabetes mellitus Denies family history of Ovarian cancer Prostate cancer Breast cancer Colorectal cancer Social History Smoking Status: Former smoker Tobacco Type: Cigarettes Second Hand Exposure: No; Do You Dip or Chew Tobacco: No; Hx Alcohol Use: No Hx Substance Use: No Preferred Language: Mauritanian Communication Ability: Effective Visual Impairment: No Limitations Hearing Ability: Normal Web Sizer Required: No Beliefs That Will Affect Care: None marital status: Current Living Situation: Alone Current Living Situation Comment: alone current occupational status: employed and disabled current occupation: [employer]-pt does have disability for diabetes- insurance helps How many Children do You have: 2 Other Information That Helps Us Care for You: No Feels Safe at Home: Yes Childhood Exposure to Second-Hand Smoke: No Diet: diabetic caffeine: Yes during the past year weight has: increased > 10 lbs Dental Care, Regularly: No Physical Activity Frequency: Does not Exercise Seatbelt Use: always Sunscreen Use: Yes Gender Identity: Female Assistive Devices: None Physical Exam Physical Exam: NAD AAOx3 PERRL Eomi CN II-XII intact Full ROM arms/legs no nuchal rigidity, neck stiffness Results & Data Vital Signs (Past 12 Hours) Vital Signs Temp Pulse Pulse Pulse Resp BP Pulse Ox 06/24/23 09:39 06/24/23 08:34 36.8 C 99 H 16 125/84 96 06/24/23 02:20 36.8 C 98 H 16 118/80 98 06/24/23 02:07 93 H 18 98 06/24/23 01:00 92 H 18 127/86 98 06/24/23 00:27 90 16 125/90 100 O2 Del Method 06/24/23 09:39 Room Air 06/24/23 08:34 Room Air 06/24/23 02:20 Room Air 06/24/23 02:07 Room Air 06/24/23 01:00 Room Air 06/24/23 00:27 Room Air Laboratory Results Laboratory Tests 07/08/22 07:57 Creatinine 1.01 Diagnostic Findings Chest X-Ray 06/23/23 21:05 XR chest 1V portable CLINICAL HISTORY: ams TECHNIQUE: Single frontal radiograph of the chest was obtained. Comparison: Comparison is made to chest radiograph 06/15/2023 FINDINGS: No lines and tubes are seen. The cardiomediastinal silhouette is normal. The lungs are clear. No evidence of pleural effusion or pneumothorax. IMPRESSION: No acute chest disease. ACT 112: Negative or not required by law. Electronically signed by: Sukhjinder Orozco M.D. 06/24/2023 8:[address] 06/23/23 21:05 Exam(s): CT HEAD Without Contrast EXAM: CT Head Without Intravenous Contrast CLINICAL HISTORY: Reason for exam: ams. TECHNIQUE: Axial computed tomography images of the head/brain without intravenous contrast. CTDI is 38.49 mGy and DLP is 624.41 mGy-cm. Automated exposure control was utilized for the study. A dose lowering technique was utilized adhering to the principles of ALARA. COMPARISON: No relevant prior studies available. FINDINGS: No acute intracranial hemorrhage. No midline shift or mass effect. The territorial lawson-white matter differentiation is maintained throughout. Age-related cerebral volume loss. Periventricular and subcortical white matter hypoattenuation, consistent with chronic microangiopathy. The visualized orbits appear grossly unremarkable. The calvarium is intact. The visualized paranasal sinuses and mastoid air cells are grossly clear. IMPRESSION: No acute intracranial hemorrhage, midline shift, or mass effect. Electronically signed by: Pedro Lopez MD 06/23/23 21:33 PM
--- NOTE | 2023-06-24 13:13 | Medical Student Progress Note ---
Date of Service June 24, 2023 Assessment & Plan (1) Hallucinations: Plan: 63 yo female with PMHx h/o cryptococcal meningitis, auditory/visual hallucinations, cirrhosis, DM2, afib, hypomagnesemia, hypokalemia, HLD, peripheral edema, anxiety, depression, gastritis, and HTN presents with hallucinations. - Patient was brought in by son due to a reported increase in hallucinations. Patient is unsure if she is hallucinating as she cannot always distinguish real vs. imagined - Patient reported that before the meningitis, she has been able to feel people's emotions, so when she was in a crowd, she felt like her head gets too noisy. After the meningitis, the patient says that she started feeling like pictures were talking to her. Her son also told her that she has been seeing different animals, like mice, since the meningitis. Unclear if hallucinations are associated with her cryptococcal meningitis in the past. - She was seen by psychiatry during a previous admission, who placed her on seroquel which did initially help with her anxiety/hallucinations. It is unclear whether she was able to fill her seroquel after being discharged from the hospital. - ID consulted on 06/24 to determine if further work up concerning the cryptococcal meningitis is necessary. - Patient is open to speaking to psychiatry. - Per her son, he did call the [facility] today and they have beds available for her. They stated she needs medical clearance hence part of the reason her son brought her to the hospital. - continue seroquel 25 mg (2) Cryptococcal meningitis: Plan: - Patient reports headaches, neck stiffness, and fatigue following meningitis. - Continue suppression therapy with fluconazole 400 mg daily, which she has been on since March 2022 - ID consult as above (3) Uncontrolled type 2 diabetes mellitus with hyperglycemia, with long-term current use of insulin: Plan: - Patient is insulin dependent - During previous hospitalization, basal insulin was decreased due to hypoglycemic episodes. - Patient should continue home basal regimen + SSI - consider referral to a shoe designer. Patient reported that she has trouble eating food and struggles with her diet to diabetes/meningitis. She said that she needs to eat protein because of her meningitis and knows her potassium/magnesium are low. For lunch/dinner, she eats meat/fruit but nothing else and does not eat vegetables/carbs. (4) Anxiety: Plan: - Patient is on venlafaxine 150 mg daily - Patient expressed that she needs someone to talk to and is extremely lonely. She reports not having any social support aside from her children. - Her previous psychiatrist who she went to when going through divorce in 2004. She is interested in possibly speaking to someone now and voiced a desire to have a purpose. - Patient also voiced an interest in family counseling. Patient and her son seem to have some communication issues. It seems like the son is very concerned about his mother; mother thinks it is because he saw her struggling with meningitis and is very worried about her dying. (5) Paroxysmal A-fib: Plan: - Continue eliquis and metoprolol - Of note, Eliquis was switched from warfarin during prior hospitalization (6) Cirrhosis of liver: Plan: - Chronic, no acute decompensation (7) Hypomagnesemia: Plan: - chronic; continue magnesium chloride (8) Hypokalemia: Plan: - chronic; continue potassium replacement (9) Gastritis: Plan: - Continue protonix and sucralfate (10) Hypertension: Plan: - Continue metoprolol Hypertension type: essential hypertension Qualified Code(s): I10 - Essential (primary) hypertension Plan Code: Full Code Diet: carb consistent DVT ppx: eliquis Dispo: med/surg, ?discharge to psych facility vs. rehab Admission and Anticipated Discharge Date Admission Date: June 24, 2023 Supervising Attestation I personally examined the patient and verified all fish points of history and exam, discussed case, and agree with decision making with Ismael Suggs and Dr Ryder feeling reasonably OK overall - but has a headache - notes that it's frontal and ongoing for a few months. Hallucinations appear to have been going on for a while per her recollection, they do not seem to be very obtrusive, she notes mostly as whenever she looks at her phone if it somebody that she knows and makes eye contact with, she will see their photo start to talk to her or laugh or otherwise become animated. She seems fairly aware that it is not real. She does not endorse any other visual or auditory hallucinations. She does note that her son is worried about her, she feels that it is because she was at home and slept nonstop for 2 days, was in her close from what she had whenever she left the hospital, and has these hallucinations, but she does not feel like she would require psychiatric hospitalization. She notes her son is worried about her being malnourished, but she feels like overall she is doing okay taking care of herself at home. Vitals are noted, in general she is awake and alert pleasant no distress. HEENT normocephalic atraumatic mucous membranes moist. Breathing unlabored no accessory muscle use good effort. Skin shows no rashes no pallor or icterus. Neuro without focal deficits. She shows me a few of the pictures that she has seen moving or talking to her on her phone, and whenever we are looking at them together she denies any movement. I also had her look at a picture on my phone making eye contact with the picture, and no movement/hallucinations were elucidated. She does not appear to be responding to any internal stimuli. She has good recent and remote recall normal mood and affect, makes good jokes, seems to have good insight. Headache and hallucinationscertainly while its unlikely to be a worsening of her cryptococcal meningitis, that has to be the diagnosis of exclusion. Discussed with infectious disease who suggested that if her MRI brain looks reassuring it is very very unlikely to be cryptococcal meningitis, did discuss that we could pursue an LP but it would probably not be medically necessary; at the same time in discussion with the patient she is very afraid that this is the case, was surprisingly not bothered by the serial LPs that she needed when she was initially diagnosed with cryptococcal meningitis (during which time I was caring for her) and really feels like she would be more reassured if we do both the MRI and LP, which seems fairly reasonable. If the work-up for cryptococcal meningitis does not yield any findings consistent with a reinfection/worsening infection/etc., nothing about her situation seems very consistent with a psychotic depression or schizophrenia, she does not appear to have hepatic encephalopathyso I would really wonder if she just has some degree of hallucinations from brain changes as a residual from the cryptococcal meningitis that she suffered. In that respect, I would ask psychiatry for their opinion both in terms of her safety at home versus if they saw the need for inpatient psychiatric care (as currently I do not), and also what might be some good and useful tools for management of the hallucinations. Her son appears to have a significant concern about her care at homeearlier this week he was strongly in favor of her going to rehab (in the end she was not approved by insurance so was not an option), and now only 2 days later he is bringing her back to the [facility] with intent of psychiatric hospitalization. We will definitely need to obtain collateral information from the son to get a good feel for the whole situation at home, what his concerns are, what the whole dynamic is, etc. Subjective - 63 yo female with a hx of cryptococcal meningitis here with auditory/visual hallucinations. It is unclear whether hallucinations are associated with meningitis. - Patient was discharged from [facility] 2 days ago for weakness secondary to prolonged diarrhea. - She lives on her own. Her son seems to very carefully watch her/monitor her progress. He feels strongly about her going to [facility]. They said they had a bed for her, but she needs medical clearance. - When speaking with her today, she stated that she does not feel like she is hallucinating and does not want to go to [facility], but "is tired of arguing with her son." - She currently has headaches, anterior neck tightness, fatigue, and painful, petrified fingers but otherwise denies visual changes, fever, chest pain, shortness of breath, abdominal pain, nausea, vomiting, or diarrhea. - She said today that after being discharged, she believes she slept of 2 days. When her son visited, she had not changed her clothes, etc. When he visited, she told her son she was sleeping for 2 days, but he said that she talked to him during those two days so could not have been sleeping. He brought her in to [facility]. Review of Systems Review of Systems: All systems reviewed & are unremarkable except as noted in HPI & below Physical Exam Physical Exam: Constitutional: in no acute distress, pleasant and normal affect, intact memory. AOx3. Neck: Supple without lymphadenopathy or thyromegaly. Trachea midline. Lungs: Clear to auscultation bilaterally with good effort. No wheezes/rales/rhonchi. Cardiac: RRR.No murmurs/rubs/gallops.No extremity edema. 2+ distal peripheral pulses. Abdomen: Soft, nontender, and nondistended.No guarding. No hepatosplenomegaly. Extremities: Last two fingers on right hand are petrified. Left hand has had pinkie finger removed. Knuckles on select fingers are swollen. Tremor noted in hands. Skin: No rashes, warm, dry. Neurologic: Grossly intact cranial nerves. PERRL. Results & Data Vital Signs (Past 12 Hours) Vital Signs Temp Pulse Pulse Resp BP Pulse Ox O2 Del Method 06/24/23 09:39 Room Air 06/24/23 08:34 36.8 C 99 H 16 125/84 96 Room Air 06/24/23 02:20 36.8 C 98 H 16 118/80 98 Room Air 06/24/23 02:07 93 H 18 98 Room Air Resident Activity Tracking Resident Involvement: Resident Care Provided Care Provided: Adult Hospital Medicine
[2023-06-24] MEDS ORDERED: GADOBUTROL 65ML VIAL IV ONE (18:35)
--- NOTE | 2023-06-24 18:57 | Billing Data ---
Date of Service June 24, 2023 Coding Level of Care Code 56671 SUB INP/OBS CARE MIN
--- NOTE | 2023-06-24 19:01 | Magnetic Resonance Report ---
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 FINDINGS: No restricted diffusion. Midline structures appear unremarkable. No pathologic blooming artifact. No acute intracranial hemorrhage, midline shift, abnormal extra-axial collection, hydrocephalus or intra -axial mass. Moderate patchy T2/FLAIR hyperintense foci throughout the white matter. Cerebral venous sinuses and major arterial flow voids are patent. Prior bilateral lens repair. Mastoid air cells and paranasal sinuses are clear. No abnormal intra-axial enhancement. Cerebellar leptomeningeal enhanceme nt again noted which has progressed from the prior. IMPRESSION: 1. Progressive leptomeningeal enhancement of the cerebellum which has worsened compared to the 2021 study. Findings likely correlate with the reported history of meningitis. 2. No acute intracranial hemorrhage, midline shift or acute infarct. 3. Moderate T2/FLAIR hyperintense foci throughout the white matter suggests probable chronic microvas cular ischemic disease. ACT 112: Negative or not required by law. The above report was generated using voice recognition software. It may contain grammatical, syntax o r spelling errors. Electronically signed by: Markos Tineo M.D. 06/24/2023 6:58 PM
[2023-06-24] MEDS: VENLAFAXINE HCL XR 75 MG CAPXR PO SCH (20:04)
[2023-06-24] MEDS: VENLAFAXINE HCL XR 150 MG CAPXR PO SCH (20:04)
[2023-06-24] MEDS: QUEtiapine FUMARATE 25 MG TABLET PO SCH (20:04)
--- NOTE | 2023-06-25 02:20 | Billing Data ---
Date of Service June 25, 2023 Coding Level of Care Code 96337 INT INP/OBS CARE
[2023-06-25 05:14] LABS: BUN Creatinine Ratio 39.8 (10-20); Calcium 9.5 mg/dl (8.6-10.3); Creatinine Clr Calc Pharmacy 50.1 ml/min; Est GFR (African American) 70.7 ml/min; Potassium 3.9 mmol/L (3.5-5.1)
[2023-06-25 05:30] LABS: Hematocrit (blood only) 29.6 % (37.0-47.0); Hemoglobin 9.6 g/dl (12.0-16.0); Mean Corpuscular Hemoglobin 27.1 pg (25.0-34.0); Mean Corpuscular Hgb Conc 32.4 g/dL (32.0-36.0); Mean Corpuscular Volume 83.6 fL (80.0-100.0); Mean Platelet Volume 11.3 fL (9.4-12.4); Platelet Count 144 K/uL (130-400); RDW Coefficient of Variation 17.1 % (11.5-14.5); RDW Standard Deviation 52.1 fL (36.4-46.3); Red Blood Count 3.54 M/uL (4.20-5.40); White Blood Count 5.03 K/ul (4.8-10.8)
--- NOTE | 2023-06-25 07:37 | Hospitalist Progress Note ---
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) Insulin dependent diabetes mellitus - during previous hospitalization, basal insulin was decreased d/t hypoglycemic episodes - continue home basal regimen with SSI Anxiety - continue home venlafaxine 150mg daily - pt would benefit from outpatient counseling Paroxysmal afib - continue eliquis and metoprolol Cirrhosis - stable; no acute decompensation Electrolyte derangements - hypomagnesemia and hypokalemia; continue supplementation Gastritis - continue pantoprazole and sucralfate Code status: full Diet: carb consistent DVT ppx: eliquis Dispo: med/surg (2) Cryptococcal meningitis: (3) Uncontrolled type 2 diabetes mellitus with hyperglycemia, with long-term current use of insulin: (4) Anxiety: (5) Paroxysmal A-fib: (6) Cirrhosis of liver: (7) Hypomagnesemia: (8) Hypokalemia: (9) Gastritis: (10) Hypertension: Admission and Anticipated Discharge Date Admission Date: June 24, 2023 Supervising Physician Co-Signing Physician Notes I personally examined the patient and verified all fish points of history and exa m, discussed case, and agree with decision making with Dr Ryder Feeling about the same. No new complaints. Updated several times throughout the day, she expresses good understanding. She notes she was very suspicious the infection is worsening. Vitals noted, in general she is awake and alert pleasant no distress. HEENT normocephalic atraumatic mucous membranes moist. Breathing unlabored no accessory muscle use good effort. Skin without rashes pallor or icterus. Recurrent/reactivated cryptococcal meningitisgreatly appreciate infectious disease assistance. Amphotericin B and flucytosine restarted. LP once it can be arranged (discussed with patient we can do it at the bedside today or tomorrow, or could be done under fluoroscopy Mondayshe much preferred having it done under fluoroscopy). Otherwise as above Subjective Pt doing well this AM. Voiced no new concerns. Review of Systems Review of Systems: As per HPI Physical Exam Physical Exam: Constitutional: well appearing, no acute distress HEENT: normocephalic, no conjunctival injection CV: regular rhythm, regular rate, no murmur, no LE edema Respiratory: Clear to auscultation bilaterally. No rhonchi, wheezes, or crackles. No increased work of breathing MSK: no gross deformities noted Skin: warm, dry, no rashes Neuro: alert, oriented, no FND noted Results & Data Results & Data Vital Signs (Past 12 Hours) Vital Signs Temp Pulse Resp BP Pulse Ox O2 Del Method 06/24/23 20:00 Room Air 06/24/23 19:59 37 C 70 18 130/82 95 Room Air Resident Activity Tracking Resident Involvement: Resident Care Provided Care Provided: Adult Hospital Medicine (10) Hypertension Hypertension type: essential hypertension Qualified Code(s): I10 - Essential (primary) hypertension
[2023-06-25] MEDS: PANTOprazole 40 MG TAB PO SCH ×2 (08:15→20:25)
[2023-06-25] MEDS: MULTIVITAMIN TAB PO SCH (08:15)
[2023-06-25] MEDS: METOPROLOL SUCC 25MG EXT REL TAB PO SCH ×2 (08:15→20:26)
[2023-06-25] MEDS: MECLIZINE 12.5 MG TAB PO SCH (08:15)
[2023-06-25] MEDS: SUCRALFATE 1 GM/10 ML UDC PO SCH ×4 (08:15→20:27)
[2023-06-25] MEDS: FLUTICASONE PROPIONATE NA SPR 16 GM BTL SCH (08:15)
[2023-06-25] MEDS: MAGNESIUM CHLORIDE W/CALCIUM 64MG DELAYED REL TAB PO SCH ×2 (08:15→20:26)
[2023-06-25] MEDS: APIXABAN 5 MG TABLET PO SCH ×2 (08:15→20:25)
[2023-06-25] MEDS: CHOLECALCIFEROL 1,000 UNITS 25 MCG TAB PO SCH (08:15)
[2023-06-25] MEDS: FLUCONAZOLE 100 MG TAB PO SCH (08:15)
[2023-06-25] MEDS: SACCHAROMYCES BOULARDII 250 MG CAP PO SCH ×2 (08:15→20:27)
[2023-06-25] MEDS: POTASSIUM CHLORIDE CRTAB 20 MEQ TABCR PO SCH (08:15)
[2023-06-25] MEDS: INSULIN ASPART PER UNIT CHARGE SC SCH ×4 (09:06→20:36)
[2023-06-25] MEDS: LANTUS PER UNIT CHARGE SQ SCH ×2 (09:07→20:41)
[2023-06-25] MEDS ORDERED: AMPHOTERICIN B CONSULT ACTIVE PRN (12:21)
[2023-06-25] MEDS ORDERED: FLUCYTOSINE 500 MG CAP PO SCH ×3 (15:00→18:00)
[2023-06-25] MEDS: AMPHOTERICIN B LIPOSOMAL IV SCH (15:06)
[2023-06-25] MEDS: [UNRECOGNIZED DRUG - OTHER] IV SCH (15:06)
[2023-06-25] MEDS: IBUPROFEN 600 MG TAB PO PRN (15:46)
--- NOTE | 2023-06-25 16:32 | Communication Note ---
Date of Service: June 25, 2023 Mrs. Ye is a 62 yo lady with medical Hx of HTN, type 2 diabetes, hyperlipidemia, and generalized anxiety disorder/major depressive disorder who is presenting to our clinic for follow-up on management of her cryptococcal meningitis. She initially got diagnosed in February 2022 at [facility] and later transferred to [facility] because of worsening clinical status. She was then treated with liposomal amphotericin and flucytosine ending on 03/16/2022, followed after that by oral fluconazole 400 mg for 8 weeks until 05/12/2022. Then, the fluconazole was made to 200 mg daily on 05/13/2022 to be continued for at least 1 year (until mid April 2023). However, after she was admitted to [facility] because of vertigo and hallucinations in Jun 2022, the dose was increased to 400 mg daily. She was admitted to [facility] on 06/24 because of recurrent hallucinations and we were contacted by the primary team for further evaluation and management. 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 - Please obtain LP with CSF analysis: opening pressure measurement, cell count, protein, glucose, cryptococcal antigen in CSF, meningitis encephalitis panel and bacterial/fungal/AFB cultures. - Also, send for cryptococcal antigen in serum. - Please place an official consult for ID to be seen on upcoming Tuesday.
--- NOTE | 2023-06-25 19:42 | Electrocardiogram Report ---
Test Reason : Blood Pressure : / mmHG Vent. Rate : 094 BPM Atrial Rate : 094 BPM P-R Int : 114 ms QRS Dur : 100 ms QT Int : 366 ms P-R-T Axes : 024 -41 083 degrees QTc Int : 457 ms Normal sinus rhythm Left axis deviation Minimal voltage criteria for LVH, may be normal variant Nonspecific ST and T wave abnormality Abnormal ECG When compared with ECG of 16-JUN-2023 10:42, Sinus rhythm has replaced Atrial fibrillation Vent. rate has decreased BY 51 BPM Criteria for Septal infarct are no longer Present Confirmed by Bertram June ([id number]) on 06/25/2023 7:42:03 PM Referred By: REFERRED SELF Confirmed By:Bertram June
--- NOTE | 2023-06-25 19:57 | Billing Data ---
Date of Service June 25, 2023 Coding Level of Care Code 05264 SUB INP/OBS CARE MIN
[2023-06-25] MEDS: VENLAFAXINE HCL XR 75 MG CAPXR PO SCH (20:26)
[2023-06-25] MEDS: QUEtiapine FUMARATE 25 MG TABLET PO SCH (20:27)
[2023-06-25] MEDS: VENLAFAXINE HCL XR 150 MG CAPXR PO SCH (20:28)
[2023-06-26] MEDS: FLUCYTOSINE 500 MG CAP PO SCH ×3 (01:29→17:55)
--- NOTE | 2023-06-26 07:36 | Hospitalist Progress Note ---
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 History of cryptococcal meningitis (dx 02/2022) - pt presenting with increase in auditory/visual hallucinations - ID consulted; recommended brain MRI which showed increased inflammation of her cerebellum - per discussion with Srinivasa ID; LP (for tomorrow with IR), meningitis/encephalitis panel, CSF/serum cryptococcal Ag, bacterial and fungal blood cx - began liposomal amphotericin (3mg/kg daily) and flucytosine (25 mg/kg QID) 06/25; ALBINA developed today- per chart review of her initial tx in 02/2022, her amphotericin tx was continued throughout and Cr peaked at 2.7; with this hx, will administer today's dose of amphotericin and renally dose flucytosine - will involve nephro for further input/evaluation - discontinue home fluconazole; ID will start prior auth for outpatient voriconazole (switch from fluconazole for halfway tx d/t tx failure and intolerance) Drug-induced ALBINA - begin IVF with LR at 125 mL/hr, renally dose meds - as above Insulin dependent diabetes mellitus - during previous hospitalization, basal insulin was decreased d/t hypoglycemic episodes - continue home basal regimen with SSI Anxiety - continue home venlafaxine 150mg daily - pt would benefit from outpatient counseling Paroxysmal afib - continue eliquis and metoprolol Cirrhosis - stable; no acute decompensation Electrolyte derangements - hypomagnesemia and hypokalemia; continue supplementation Gastritis - continue pantoprazole and sucralfate Code status: full Diet: carb consistent DVT ppx: eliquis Dispo: med/surg (2) Cryptococcal meningitis: (3) Uncontrolled type 2 diabetes mellitus with hyperglycemia, with long-term current use of insulin: (4) Anxiety: (5) Paroxysmal A-fib: (6) Cirrhosis of liver: (7) Hypomagnesemia: (8) Hypokalemia: (9) Gastritis: (10) Hypertension: Admission and Anticipated Discharge Date Admission Date: June 24, 2023 Supervising Physician Co-Signing Physician Notes I personally examined the patient and verified all fish points of history and exam, discussed case, and agree with decision making with Dr Ryder Feeling about the same. No new complaints. discussed elevated creatinine - she notes that at some point in prior treatment she remembers kidney issues during prior treatment. Vitals noted, in general she is awake and alert pleasant no distress. HEENT normocephalic atraumatic mucous membranes moist. Breathing unlabored no accessory muscle use good effort. Skin without rashes pallor or icterus. Recurrent/reactivated cryptococcal meningitisgreatly appreciate infectious disease assistance. Amphotericin B and flucytosine restarted. dose currently modified after resident physician discussed with infectious disease. With acute kidney injurynephrology input early, gentle IV fluids. LP once it can be arranged (she much preferred having it done under fluoroscopy). Otherwise as above. Fortunately she clinically looks well, however Subjective Pt feels the same this morning. She is still having some trouble swallowing so she put a lot of syrup on her pancake this morning to help. Review of Systems Review of Systems: As per HPI Physical Exam Physical Exam: Constitutional: well appearing, no acute distress HEENT: normocephalic, no conjunctival injection CV: clinically well perfused, no LE edema Respiratory: no increased work of breathing MSK: no gross deformities noted Skin: warm, dry, no rashes Neuro: alert, oriented, no FND noted Results & Data Results & Data Vital Signs (Past 12 Hours) Vital Signs Temp Pulse Resp BP Pulse Ox O2 Del Method 06/25/23 20:30 36.5 C 74 18 110/74 98 Room Air Resident Activity Tracking Resident Involvement: Resident Care Provided Care Provided: Adult Hospital Medicine (10) Hypertension Hypertension type: essential hypertension Qualified Code(s): I10 - Essential (primary) hypertension
[2023-06-26 08:17] LABS: Hematocrit (blood only) 29.3 % (37.0-47.0); Hemoglobin 9.3 g/dl (12.0-16.0); Mean Corpuscular Hgb Conc 31.7 g/dL (32.0-36.0); Mean Corpuscular Volume 85.2 fL (80.0-100.0); Mean Platelet Volume 11.3 fL (9.4-12.4); Platelet Count 140 K/uL (130-400); RDW Coefficient of Variation 16.9 % (11.5-14.5); RDW Standard Deviation 52.3 fL (36.4-46.3); Red Blood Count 3.44 M/uL (4.20-5.40); White Blood Count 4.41 K/ul (4.8-10.8)
[2023-06-26 08:40] LABS: BUN Creatinine Ratio 24.7 (10-20); Calcium 9.4 mg/dl (8.6-10.3); Creatinine Clr Calc Pharmacy 28.9 ml/min; Est GFR (African American) 36.3 ml/min; Est GFR (Non-African American) 31.3 ml/min; Potassium 4.2 mmol/L (3.5-5.1)
[2023-06-26] MEDS: INSULIN ASPART PER UNIT CHARGE SC SCH ×4 (08:40→22:37)
[2023-06-26] MEDS: LANTUS PER UNIT CHARGE SQ SCH ×2 (08:45→22:37)
[2023-06-26] MEDS: FLUTICASONE PROPIONATE NA SPR 16 GM BTL SCH (08:47)
[2023-06-26] MEDS: SUCRALFATE 1 GM/10 ML UDC PO SCH ×4 (08:48→22:25)
[2023-06-26] MEDS: MULTIVITAMIN TAB PO SCH (08:48)
[2023-06-26] MEDS: CHOLECALCIFEROL 1,000 UNITS 25 MCG TAB PO SCH (08:49)
[2023-06-26] MEDS: METOPROLOL SUCC 25MG EXT REL TAB PO SCH ×2 (08:49→22:28)
[2023-06-26] MEDS: SACCHAROMYCES BOULARDII 250 MG CAP PO SCH ×2 (08:49→22:29)
[2023-06-26] MEDS: MAGNESIUM CHLORIDE W/CALCIUM 64MG DELAYED REL TAB PO SCH ×2 (08:50→22:27)
[2023-06-26] MEDS: APIXABAN 5 MG TABLET PO SCH ×2 (08:50→22:27)
[2023-06-26] MEDS: MECLIZINE 12.5 MG TAB PO SCH (08:50)
[2023-06-26] MEDS: POTASSIUM CHLORIDE CRTAB 20 MEQ TABCR PO SCH (08:50)
[2023-06-26] MEDS: PANTOprazole 40 MG TAB PO SCH ×2 (08:50→22:28)
[2023-06-26] MEDS: LACTATED RINGER'S 1,000 ML IV SCH ×2 (09:59→22:22)
[2023-06-26] MEDS ORDERED: FLUCYTOSINE 500 MG CAP PO SCH (18:00)
[2023-06-26] MEDS ORDERED: AMPHOTERICIN B LIPOSOMAL IV SCH (18:00)
[2023-06-26] MEDS ORDERED: [UNRECOGNIZED DRUG - OTHER] IV SCH (18:00)
--- NOTE | 2023-06-26 18:47 | Billing Data ---
Date of Service June 26, 2023 Coding Level of Care Code 69202 SUB INP/OBS CARE
[2023-06-26 19:02] LABS: Appearance Urine Cloudy (Clear); Bacteria Urine Automated Negative (Negative); Bilirubin Urine Negative (Negative); Blood Urine Negative (Negative); Color Urine Dark Yellow; Glucose Urine UA Negative (Negative); Ketones Urine Trace (Negative); Leukocyte Esterase Urine 1+ (Negative); Nitrite Urine Negative (Negative); Protein Urine Trace (Negative); Specific Gravity Urine 1.023 (1.000-1.030); Urobilinogen Urine Negative (Negative)
[2023-06-26 19:09] LABS: Calcium Oxalate Crystals Urine Present (None Prsent)
[2023-06-26 19:10] LABS: RBC Urine Automated 0-4 /hpf (0-4)
[2023-06-26 19:18] LABS: Creatinine Urine Random 166.3 mg/dl
[2023-06-26] MEDS: VENLAFAXINE HCL XR 75 MG CAPXR PO SCH (22:26)
[2023-06-26] MEDS: QUEtiapine FUMARATE 25 MG TABLET PO SCH (22:26)
[2023-06-26] MEDS: VENLAFAXINE HCL XR 150 MG CAPXR PO SCH (22:29)
[2023-06-27] MEDS: LACTATED RINGER'S 1,000 ML IV SCH ×3 (05:32→23:15)
[2023-06-27] MEDS: FLUCYTOSINE 500 MG CAP PO SCH ×2 (05:33→20:01)
[2023-06-27] MEDS: ONDANSETRON 4 MG OD TAB PO PRN (05:59)
[2023-06-27] MEDS: POTASSIUM CHLORIDE CRTAB 20 MEQ TABCR PO SCH (08:08)
[2023-06-27] MEDS: PANTOprazole 40 MG TAB PO SCH ×2 (08:08→20:04)
[2023-06-27] MEDS: MAGNESIUM CHLORIDE W/CALCIUM 64MG DELAYED REL TAB PO SCH ×2 (08:08→20:05)
[2023-06-27] MEDS: CHOLECALCIFEROL 1,000 UNITS 25 MCG TAB PO SCH (08:08)
[2023-06-27] MEDS: FLUTICASONE PROPIONATE NA SPR 16 GM BTL SCH (08:08)
[2023-06-27] MEDS: METOPROLOL SUCC 25MG EXT REL TAB PO SCH ×2 (08:08→20:05)
[2023-06-27] MEDS: MULTIVITAMIN TAB PO SCH (08:09)
[2023-06-27] MEDS: SUCRALFATE 1 GM/10 ML UDC PO SCH ×4 (08:09→20:05)
[2023-06-27] MEDS: MECLIZINE 12.5 MG TAB PO SCH (08:09)
[2023-06-27] MEDS: SACCHAROMYCES BOULARDII 250 MG CAP PO SCH ×2 (08:09→20:04)
[2023-06-27] MEDS: LANTUS PER UNIT CHARGE SQ SCH ×2 (08:16→20:48)
[2023-06-27] MEDS: INSULIN ASPART PER UNIT CHARGE SC SCH ×4 (08:17→20:44)
[2023-06-27] MEDS ORDERED: LIDOCAINE 5% 1 PATCH TD PRN (09:32)
--- NOTE | 2023-06-27 10:02 | Nephrology Consultation ---
Date of Consultation June 27, 2023 Assessment & Plan (1) ALBINA (acute kidney injury): Plan 63 y o F with history of hypertension, diabetes, prior history of ALBINA but baseline normal renal function baseline creatinine 0.8-0.9, admitted with hallucination found to have ALBINA, creatinine was 1.7. No significant proteinuria or hematuria. CT abdomen pelvis 2 weeks ago was otherwise unremarkable. Overall clinically asymptomatic and stable. Blood pressure well controlled. --repeat renal panel today, if progressive worsening of renal function, will consider doing renal ultrasound and further work-up. --encourage po intake, avoid NSAID's and other nephrotoxic meds. Thank you for allowing me to participate in your patient's care. It was a pleasure to see Sudha. History of Present Illness Reason for Consultation: ALBINA Attending Physician: Eddy Amaro, History of Present Illness Ms. Lynne Marcelo is a 63 yo female with PMHx h/o ALBINA, cryptococcal meningitis, cirrhosis, DM2, afib, anxiety, depression, gastritis, and HTN admitted to the hospital with worsening hallucination as per family. Nephrology consult was requested as she was found to have ALBINA. Medical records are reviewed in detail during patient's visit. Sudha was brought to hospital on 06/23/2023 after she was discharged just 2 days prior to that by her son with concern for increasing hallucination although she did not feel she had hallucination. Currently she is waiting for medical clearance to be admitted to [facility]. She had history of ALBINA in 2021 in the setting of cryptococcal meningitis, recovered from ALBINA and since then renal function has been stable and baseline creatinine has been 0.8-0.9. On admission creatinine was at baseline but lab on 06/26/2023 showed ALBINA with creatinine of 1.7. Urinalysis with no significant proteinuria or hematuria. She denied any NSAID use or new antibiotic exposure recently. Reports decent p.o. intake, has been voiding normally. Denied nausea, vomiting or diarrhea. Blood pressure has been fair without hypotensive episode. CT A/P 2 weeks ago showed otherwise normal kidneys, history of nephrolithiasis before but no remaining stone currently. Non smoker. 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 History of cryptococcal meningitis in February 2022, A-fib with RVR and ALBINA at the time. Overall she is feeling better this morning, denied having hallucination or confusion. Allergies Allergy/AdvReac Type Severity Reaction Status Date / Time Penicillins Allergy Intermediate Hives Verified 06/23/23 20:51 atorvastatin Allergy Unknown CAN'T Verified 06/23/23 20:51 REMEMBER/? RAISED LIVER LEVELS gemfibrozil [From Lopid] Allergy Unknown CAN'T Verified 06/23/23 20:51 REMEMBER/ ? RAISED LIVER LEVELS rosuvastatin AdvReac Intermediate Muscle Pain Verified 06/23/23 20:51 acetaminophen [From Tylenol] AdvReac Unknown CAN NOT Verified 06/23/23 20:51 TAKE D/T LIVER ISSUES ibuprofen AdvReac Unknown liver Verified 06/23/23 20:51 issues Home Medications Medication Instructions Recorded Confirmed Type multivitamin 1 tab PO QAM 09/07/19 06/23/23 History Contour Next Test Strips (blood #300 ea 12/29/20 06/23/23 Rx sugar diagnostic) insulin aspart U-100 100 unit/mL See Rx Instructions subcut TIDM 06/29/22 06/23/23 History (3 mL) subcutaneous pen fluconazole 200 mg tablet 400 mg PO DAILY 11/05/22 06/23/23 History cholecalciferol (vitamin D3) 50 2,000 unit PO DAILY #90 caps 02/10/23 06/23/23 Rx mcg (2,000 unit) capsule cetirizine 10 mg capsule (Zyrtec) 10 mg PO DAILY allergy symptoms 02/25/23 06/23/23 Rx #90 caps betamethasone dipropionate 0.05 % 1 applic topical TID PRN skin 04/08/23 06/23/23 Rx lotion irritation #60 mL venlafaxine 150 mg 150 mg PO QPM #1 cap 04/14/23 06/23/23 Rx capsule,extended release 24 hr (Effexor XR) diphenhydramine HCl 25 mg capsule 25 mg PO TID PRN Allergy Symptoms 04/22/23 06/23/23 History (Allergy (diphenhydramine)) potassium chloride 20 mEq 20 meq PO QAM #90 tabs 04/22/23 06/23/23 Rx tablet,extended release quetiapine 25 mg tablet 25 mg PO HS #30 tabs 05/16/23 06/23/23 Rx fluticasone propionate 50 1 spray intranasal DAILY #16 grams 05/20/23 06/23/23 Rx mcg/actuation nasal spray,suspension (Flonase Allergy Relief) Saccharomyces boulardii 250 mg 250 mg PO BID #20 caps 05/31/23 06/23/23 Rx capsule (Florastor) pantoprazole 40 mg tablet,delayed 40 mg PO BID #180 tabs 06/01/23 06/23/23 Rx release sucralfate 100 mg/mL oral 10 ml PO QID #420 mL 06/14/23 06/23/23 Rx suspension (Carafate) promethazine 12.5 mg tablet 12.5 mg PO TID PRN nausea and 06/15/23 06/23/23 Rx vomiting #30 tabs apixaban 5 mg tablet (Eliquis) 5 mg PO BID #60 tabs 06/21/23 06/23/23 Rx furosemide 20 mg tablet 20 mg PO QAM PRN volume overload 06/21/23 06/23/23 Rx or weight gain #30 tabs insulin glargine 100 unit/mL (3 15 unit (0.15 mL) subcut AMPM #12 06/21/23 06/23/23 Rx mL) subcutaneous pen (Lantus mL Solostar U-100 Insulin) magnesium chloride 64 mg 64 mg PO BID #60 tabs 06/21/23 06/23/23 Rx (magnesium chloride) tablet,delayed release (Mag 64) metoprolol succinate 25 mg 25 mg PO BID #60 tabs 06/21/23 06/23/23 Rx tablet,extended release 24 hr venlafaxine 75 mg capsule,extended 75 mg PO QPM #30 caps 06/21/23 06/23/23 Rx release 24 hr meclizine 12.5 mg tablet 12.5 mg PO QAM #30 tabs 06/23/23 06/23/23 Rx Patient History Medical History Acid reflux Anxiety Cirrhosis of liver FOLLOWS W/ [facility] Stable currently 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[facility] & [facility] for 4 mon summer [address] GONZALEZ & INFECTIOUS DISEASE DR Maldonado Diabetes mellitus, type 2 IDDM Glucose fluctuates - since Covid in December 2020 On insulin pump Follows with endocrinology Dupuytren contracture Dyslipidemia History of anesthesia reaction with more recent surgeries seems it is harder to wake up History of atrial fibrillation dx while hospitalized summer 2021 History of COVID-12 January 2021 > [facility], not hospitalized, fever, ear pain- did give infusion in ER No current issues History of DVT (deep vein thrombosis) dx during hospitalization summer 2021 History of gastric ulcer summer 2021 History of pulmonary embolus (PE) dx during hospitalization summer 2021 Hydronephrosis due to obstruction of ureter Hypertension IBS (irritable bowel syndrome) Stable Insomnia Kidney stones FOLLOWS WITH DR FUCHS No current issues - monitoring currently Vertigo Surgical History History of cystoscopy WITH STENTS AND STONE BASKETING History of endoscopy History of lithotripsy History of tonsillectomy and adenoidectomy History of total hip arthroplasty LEFT Hx laparoscopic cholecystectomy Hx of colonoscopy Hx of left cataract extraction Hx of surgical amputation of finger left pinky Hx of total hysterectomy GERALD WITH BSO Hx of tubal ligation Hx of wisdom tooth extraction Status post Dupuytren's fasciectomy Family History Father , age 75 Family history of diabetes mellitus Coronary heart disease Brother Family history of diabetes mellitus Mother , age 67 Family history of diabetes mellitus Heart disease Hypertension Myocardial infarction Grandfather (Paternal) Family history of diabetes mellitus Grandmother (Paternal) Family history of diabetes mellitus Denies family history of Ovarian cancer Prostate cancer Breast cancer Colorectal cancer Social History Smoking Status: Former smoker Tobacco Type: Cigarettes Second Hand Exposure: No; Do You Dip or Chew Tobacco: No; Hx Alcohol Use: No Hx Substance Use: No Preferred Language: Thai Communication Ability: Effective Visual Impairment: No Limitations Hearing Ability: Normal Electrical And Radio Mock Up Mechanic Required: No Beliefs That Will Affect Care: None marital status: Current Living Situation: Alone Current Living Situation Comment: alone current occupational status: employed and disabled 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 Physical Exam Constitutional: WD/WN, vitals as above no acute distress Eyes: + anicteric sclerae ENMT: Ears: no hearing impairment Neck: normal visual inspection Respiratory: Auscultation: lungs clear to auscultation bilaterally Cardiovascular: RRR, no murmur, no edema Skin: no rashes, warm and dry Neurologic: no focal motor deficits and not confused Psychiatric: Orientation: alert and oriented x 3 Results & Data Vital Signs (Past 12 Hours) Vital Signs Temp Pulse Resp BP Pulse Ox O2 Del Method 06/27/23 07:37 36.4 C L 61 15 101/70 100 Room Air PG Care Time/CCT Total # of Minutes Spent Total Time Spent with Patient: Total time spent is greater than 50% in coordination of care (as documented) at patient's floor/unit and/or counseling patient: Coding Level of Care Code 40766 INT INP/OBS CARE 3/75MIN Diagnoses ALBINA (acute kidney injury) N17.9
[2023-06-27 10:12] LABS: Hematocrit (blood only) 25.5 % (37.0-47.0); Hemoglobin 8.2 g/dl (12.0-16.0); Mean Corpuscular Hemoglobin 26.9 pg (25.0-34.0); Mean Corpuscular Hgb Conc 32.2 g/dL (32.0-36.0); Mean Corpuscular Volume 83.6 fL (80.0-100.0); Platelet Count 122 K/uL (130-400); RDW Coefficient of Variation 16.9 % (11.5-14.5); RDW Standard Deviation 51.7 fL (36.4-46.3); Red Blood Count 3.05 M/uL (4.20-5.40); White Blood Count 4.37 K/ul (4.8-10.8)
[2023-06-27 10:30] LABS: BUN Creatinine Ratio 27.6 (10-20); Calcium 9.2 mg/dl (8.6-10.3); Creatinine Clr Calc Pharmacy 32.3 ml/min; Est GFR (African American) 41.6 ml/min; Est GFR (Non-African American) 35.9 ml/min; Potassium 4.5 mmol/L (3.5-5.1)
--- NOTE | 2023-06-27 10:53 | Hospitalist Progress Note ---
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 History of cryptococcal meningitis (dx 02/2022) - pt presenting with increase in auditory/visual hallucinations - ID consulted; recommended brain MRI which showed increased inflammation of her cerebellum - LP scheduled for after holding eliquis x3 days - meningitis/encephalitis panel pending, serum cryptococcal Ag pending - bacterial blood cx neg; fungal blood cx neg - began liposomal amphotericin (3mg/kg daily) and flucytosine (25 mg/kg QID) 06/25; flucytosine decreased to BID d/t ALBINA; Cr stable today- continue anti- fungals - discontinue home fluconazole; ID will start prior auth for outpatient voriconazole (switch from fluconazole for senior care tx d/t tx failure and intolerance) Drug-induced ALBINA - continue LR at 100 mL/hr, renally dose meds - nephro following Insulin dependent diabetes mellitus - during previous hospitalization, basal insulin was decreased d/t hypoglycemic episodes - continue home basal regimen with SSI Anxiety - continue home venlafaxine 150mg daily - pt would benefit from outpatient counseling Paroxysmal afib - continue metoprolol - hold eliquis for LP Cirrhosis - stable; no acute decompensation Electrolyte derangements - hypomagnesemia and hypokalemia; continue supplementation Gastritis - continue pantoprazole and sucralfate Code status: full Diet: carb consistent DVT ppx: eliquis on hold d/t LP Dispo: med/surg (2) Cryptococcal meningitis: (3) Uncontrolled type 2 diabetes mellitus with hyperglycemia, with long-term current use of insulin: (4) Anxiety: (5) Paroxysmal A-fib: (6) Cirrhosis of liver: (7) Hypomagnesemia: (8) Hypokalemia: (9) Gastritis: (10) Hypertension: Admission and Anticipated Discharge Date Admission Date: June 24, 2023 Supervising Physician Co-Signing Physician Notes ATTESTATION I also saw the patient and confirmed fish portions of the history and exam. I agree with the impression and plan in the resident documentation, and as summarized below. Upon our afternoon exam, the patient without complaints. Denies headache. She has been ambulatory to the bathroom without difficulty. EXAM 107/68, 60, 16, 37, 98% on room air Alert and oriented. Heart regular rate and rhythm Respirations are nonlabored Extremities without edema DATA Labs Hemoglobin 8.2, platelet count 122 BUN 42, creatinine 1.52 IMPRESSION & PLAN I agree with the impression and plan as noted in the resident documentation. We will need to clarify with ID connect; [facility] placed communication note after discussion with weekend inpatient team. While they follow the patient as an outpatient, they are no longer contracted here for inpatient services. Appreciate ID consultations, from both; moving forward, continue care with [facility]. Additional per resident documentation Subjective Pt feeling similar this morning. Her shoulders are achy. She does note some neck stiffness that is typical for her. Review of Systems Review of Systems: As per HPI Physical Exam Physical Exam: Constitutional: well appearing, no acute distress HEENT: normocephalic, no conjunctival injection CV: clinically well perfused, no LE edema Respiratory: no increased work of breathing MSK: no gross deformities noted Skin: warm, dry, no rashes Neuro: alert, oriented, no FND noted Results & Data Results & Data Vital Signs (Past 12 Hours) Vital Signs Temp Pulse Resp BP Pulse Ox O2 Del Method 06/27/23 07:37 36.4 C L 61 15 101/70 100 Room Air Resident Activity Tracking Resident Involvement: Resident Care Provided Care Provided: Adult Hospital Medicine (10) Hypertension Hypertension type: essential hypertension Qualified Code(s): I10 - Essential (primary) hypertension
--- NOTE | 2023-06-27 15:07 | Infectious Disease Progress Nt ---
Date of Service June 27, 2023 Assessment & Plan (1) Hallucinations: (2) Atrial fibrillation with rapid ventricular response: Plan 62 yo F with PMH anxiety/MDD, reported history of cryptococcal meningitis on suppressive therapy with fluconazole, afib on warfarin followed by [facility], auditory and visual hallucinations admitted with concerns of visual and auditory hallucination. ID consulted for evaluation. Review of Dr. Huggins of [place] note from 12/02/22 states shew initially diagnosed with cryptococcal meningitis in 02/2022 at [facility] and transferred to [facility]. She was treated with liposomal amphotericin and flucytosine through 03/16/22 followed by fluconazole 400mg daily for 8 weeks through 05/12/23. The she was changed to 200mg dailyon 05/13/22 for anticipated 1 year of therapy but in 07/17 dose was increased to 400mg daily d/t vertigo and hallucinations. There was di scussion at that time to change to isavuconazole because of drug interaction. She was admitted to [facility] in 05/2023 for weakness. ID was not consulted during that time. Her weakness was though to be secondary to episodic diarrhea from fluconazole. For her afib she was changed from warfarin to Eliquis. She was also diagnosed with UTI, notably Ucx grew She received Cefdinir On 06/23 she returned to ED with her son as he was concerned for increasing hallucinations. He reported that since the patient was discharged she has been having increased hallucinations talking to people who are not there including pictures on her cell phone thinking they are real people. Her VSS, CMP normal, aphos slightly increased to 121. UA shows 10-30 wbcs On my exam today, she appears well and tells me her son is worried about her. She currently denies hearing voices or seeing people but upon further discussion does admit that a picture spoke to her awhile ago. No FLOWERS, visual changes, neck stiffness. No fevers/chills/diarrhea/rash/sob/cp PRIOR Pertinent labs HIV NR 03/02/22, Serum Crypto antigen positive 07/07/22, CSF cryto negative 07/07/22 05/31/23 Ucx>100,000 cfu/mL MSSA, 80,000 Ecoli panS 06/15/23 Ucx probable skin seda 06/15 Bcx sterile 06/23 Ucx lactobcillus sp 06/25 BCx NGTD #Cryptococcal meningitis s/p induction and consolidation now on maintenance (HIV negative) #Visual/auditory hallucinations #Afib Discussion: She does have a history hallucinations which is unclear if this preceeded her cryptococcal diagnosis. [facility] ( Dr Ray ) attempted to call her ID doctor and left message on 06/24. Dr Ray spoke with Primary who recommend MRI. 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 Findings likely correlate with the reported history of meningitis. Recommend: She is followed by [facility] outpatient. It looks like the [facility] ID group made recs this weekend on 06/25 ( Dr Huggins) after viewing MRI head results to begin liposomal amphotericin B and flucytosine ; with plan to start prior auth for outpatient voriconazole ( d/t ? tx failure and intolerance with flucon azole) -plan for LP on She will be transferred to [facility] ( inpt ) who she follows with outpt. [facility] placed communication note( Dr Huggins -06/25 ). Please [address] official ID consult for ID [facility] group. D/W team [facility] will sign off. Eliza Jameson MD , MPH [email or web address]. Admission and Anticipated Discharge Date Admission Date: June 24, 2023 Subjective This patient recommendation is based on a telemedicine consult request which was completed asynchronously through chart review and information provided by the primary physician. The patient was not seen or examined today. The evaluation is consultative in nature and all patient care and treatment decisions can either be accepted or rejected by the patient's primary hospital-based treating physician using their own independent medical judgment for their patient. Time Spent Reviewing Chart: 21 - 30 minutes Pt not seen. Weekend events reviewed MRI head done this weekend shows progressive leptomeningeal enhancement of the cerebellum which has worsened. [facility] who follows her oupt recommended starting Liposomal Amp B and flucytosine with plan for LP as she is on Eliquis . Fluconazole dced. Results & Data Vital Signs (Past 12 Hours) Vital Signs Temp Pulse Resp BP Pulse Ox O2 Del Method 06/27/23 14:04 37.0 C 60 16 107/68 98 Room Air 06/27/23 07:37 36.4 C L 61 15 101/70 100 Room Air Laboratory Results Laboratory Results - last 48 hr 06/25/23 06/25/23 06/26/23 16:28 20:34 07:53 WBC RBC Hgb Hct MCV MCH MCHC RDW Std Deviation RDW Coeff of Jun Plt Count MPV Sodium Potassium Chloride Carbon Dioxide Anion Gap BUN Creatinine Est Cr Clr Drug Dosing Est GFR ( Amer) Est GFR (Non-Af Amer) BUN/Creatinine Ratio Glucose POC Glucose 207 H 87 166 H Calcium Urine Color Urine Appearance Urine pH Ur Specific [place] Urine Protein Urine Glucose (UA) Urine Ketones Urine Blood Urine Nitrite Urine Bilirubin Urine Urobilinogen Ur Leukocyte Esterase Urine WBC (Auto) Urine RBC (Auto) U Hyaline Cast (Auto) U Epithel Cells (Auto) Urine Bacteria (Auto) Calcium Oxalate Crystal Urine Yeast Ur Random Creatinine Ur Random Sodium 06/26/23 06/26/23 06/26/23 07:56 07:56 11:44 WBC 4.41 L RBC 3.44 L Hgb 9.3 L Hct 29.3 L MCV 85.2 MCH 27.0 MCHC 31.7 L RDW Std Deviation 52.3 H RDW Coeff of Jun 16.9 H Plt Count 140 MPV 11.3 Sodium 139 Potassium 4.2 Chloride 107 Carbon Dioxide 24 Anion Gap 8 BUN 42 H Creatinine 1.70 H D Est Cr Clr Drug Dosing 28.9 Est GFR ( Amer) 36.3 Est GFR (Non-Af Amer) 31.3 BUN/Creatinine Ratio 24.7 H Glucose 157 H POC Glucose 278 H Calcium 9.4 Urine Color Urine Appearance Urine pH Ur Specific [place] Urine Protein Urine Glucose (UA) Urine Ketones Urine Blood Urine Nitrite Urine Bilirubin Urine Urobilinogen Ur Leukocyte Esterase Urine WBC (Auto) Urine RBC (Auto) U Hyaline Cast (Auto) U Epithel Cells (Auto) Urine Bacteria (Auto) Calcium Oxalate Crystal Urine Yeast Ur Random Creatinine Ur Random Sodium 06/26/23 06/26/23 06/26/23 16:36 18:40 18:40 WBC RBC Hgb Hct MCV MCH MCHC RDW Std Deviation RDW Coeff of Jun Plt Count MPV Sodium Potassium Chloride Carbon Dioxide Anion Gap BUN Creatinine Est Cr Clr Drug Dosing Est GFR ( Amer) Est GFR (Non-Af Amer) BUN/Creatinine Ratio Glucose POC Glucose 107 H Calcium Urine Color Dark Yellow Urine Appearance Cloudy A Urine pH 5.0 Ur Specific [place] 1.023 Urine Protein Trace H Urine Glucose (UA) Negative Urine Ketones Trace H Urine Blood Negative Urine Nitrite Negative Urine Bilirubin Negative Urine Urobilinogen Negative Ur Leukocyte Esterase 1+ H Urine WBC (Auto) 10-30 H Urine RBC (Auto) 0-4 U Hyaline Cast (Auto) 10-30 H U Epithel Cells (Auto) 10-20 H Urine Bacteria (Auto) Negative Calcium Oxalate Crystal Present A Urine Yeast Not Reportable Ur Random Creatinine 166.3 Ur Random Sodium 42 06/26/23 06/27/23 06/27/23 21:17 07:38 09:44 WBC 4.37 L RBC 3.05 L Hgb 8.2 L Hct 25.5 L MCV 83.6 MCH 26.9 MCHC 32.2 RDW Std Deviation 51.7 H RDW Coeff of Jun 16.9 H Plt Count 122 L MPV 12.0 Sodium Potassium Chloride Carbon Dioxide Anion Gap BUN Creatinine Est Cr Clr Drug Dosing Est GFR ( Amer) Est GFR (Non-Af Amer) BUN/Creatinine Ratio Glucose POC Glucose 179 H 88 Calcium Urine Color Urine Appearance Urine pH Ur Specific [place] Urine Protein Urine Glucose (UA) Urine Ketones Urine Blood Urine Nitrite Urine Bilirubin Urine Urobilinogen Ur Leukocyte Esterase Urine WBC (Auto) Urine RBC (Auto) U Hyaline Cast (Auto) U Epithel Cells (Auto) Urine Bacteria (Auto) Calcium Oxalate Crystal Urine Yeast Ur Random Creatinine Ur Random Sodium 06/27/23 06/27/23 09:44 11:53 WBC RBC Hgb Hct MCV MCH MCHC RDW Std Deviation RDW Coeff of Jun Plt Count MPV Sodium 137 Potassium 4.5 Chloride 107 Carbon Dioxide 25 Anion Gap 5 BUN 42 H Creatinine 1.52 H Est Cr Clr Drug Dosing 32.3 Est GFR ( Amer) 41.6 Est GFR (Non-Af Amer) 35.9 BUN/Creatinine Ratio 27.6 H Glucose 124 H POC Glucose 102 H Calcium 9.2 Urine Color Urine Appearance Urine pH Ur Specific [place] Urine Protein Urine Glucose (UA) Urine Ketones Urine Blood Urine Nitrite Urine Bilirubin Urine Urobilinogen Ur Leukocyte Esterase Urine WBC (Auto) Urine RBC (Auto) U Hyaline Cast (Auto) U Epithel Cells (Auto) Urine Bacteria (Auto) Calcium Oxalate Crystal Urine Yeast Ur Random Creatinine Ur Random Sodium Diagnostic Findings Brain MRI 06/24/23 12:42 MR brain wo/w con HISTORY: 63 years-old Female cryptococcal meningitis, hallucinations COMPARISON: Head CT 06/23/2023, brain MRI 07/07/2022 TECHNIQUE: Multiple and multisequence MRI of the brain with and without the use of IV contrast. FINDINGS: No restricted diffusion. Midline structures appear unremarkable. No pathologic blooming artifact. No acute intracranial hemorrhage, midline shift, abnormal extra-axial collection, hydrocephalus or intra-axial mass. Moderate patchy T2/FLAIR hyperintense foci throughout the white matter. Cerebral venous sinuses and major arterial flow voids are patent. Prior bilateral lens repair. Mastoid air cells and paranasal sinuses are clear. No abnormal intra-axial enhancement. Cerebellar leptomeningeal enhancement again noted which has progressed from the prior. IMPRESSION: 1. Progressive leptomeningeal enhancement of the cerebellum which has worsened compared to the 07/07/2022 study. Findings likely correlate with the reported history of meningitis. 2. No acute intracranial hemorrhage, midline shift or acute infarct. 3. Moderate T2/FLAIR hyperintense foci throughout the white matter suggests probable chronic microvascular ischemic disease. ACT 112: Negative or not required by law. The above report was generated using voice recognition software. It may contain grammatical, syntax or spelling errors. Electronically signed by: Markos Tineo M.D. 06/24/2023 6:58 PM Microbiology 06/25/23 17:04 Blood Fungal Smear - Final 06/25/23 17:04 Blood Fungal Culture - Preliminary No yeast or fungus isolated - Report 1, Additional Report to Follow. 06/25/23 17:15 Blood Aerobic Blood Culture - Preliminary No growth in Aerobic bottle after 24 hours. 06/25/23 17:15 Blood Anaerobic Blood Culture - Preliminary No growth in Anaerobic bottle after 24 hours. 06/25/23 17:04 Blood Aerobic Blood Culture - Preliminary No growth in Aerobic bottle after 24 hours. 06/25/23 17:04 Blood Anaerobic Blood Culture - Preliminary No growth in Anaerobic bottle after 24 hours. 06/23/23 23:20 Urine,Clean Catch Urine Culture - Final Lactobacillus species Medications Administered Home Medications Medication Instructions Recorded Confirmed Last Taken multivitamin 1 tab PO QAM 09/07/19 06/23/23 10/25/22 Contour Next Test Strips (blood #300 ea 12/29/20 06/23/23 Unknown sugar diagnostic) insulin aspart U-100 100 unit/mL See Rx Instructions subcut TIDM 06/29/22 06/23/23 Unknown (3 mL) subcutaneous pen fluconazole 200 mg tablet 400 mg PO DAILY 11/05/22 06/23/23 11/09/22 05:00 cholecalciferol (vitamin D3) 50 2,000 unit PO DAILY #90 caps 02/10/23 06/23/23 Unknown mcg (2,000 unit) capsule cetirizine 10 mg capsule (Zyrtec) 10 mg PO DAILY allergy symptoms 02/25/23 06/23/23 Unknown #90 caps betamethasone dipropionate 0.05 % 1 applic topical TID PRN skin 04/08/23 06/23/23 Unknown lotion irritation #60 mL venlafaxine 150 mg 150 mg PO QPM #1 cap 04/14/23 06/23/23 11/08/22 capsule,extended release 24 hr (Effexor XR) diphenhydramine HCl 25 mg capsule 25 mg PO TID PRN Allergy Symptoms 04/22/23 06/23/23 Unknown (Allergy (diphenhydramine)) potassium chloride 20 mEq 20 meq PO QAM #90 tabs 04/22/23 06/23/23 Unknown tablet,extended release quetiapine 25 mg tablet 25 mg PO HS #30 tabs 05/16/23 06/23/23 Unknown fluticasone propionate 50 1 spray intranasal DAILY #16 grams 05/20/23 06/23/23 Unknown mcg/actuation nasal spray,suspension (Flonase Allergy Relief) Saccharomyces boulardii 250 mg 250 mg PO BID #20 caps 05/31/23 06/23/23 Unknown capsule (Florastor) pantoprazole 40 mg tablet,delayed 40 mg PO BID #180 tabs 06/01/23 06/23/23 Unknown release sucralfate 100 mg/mL oral 10 ml PO QID #420 mL 06/14/23 06/23/23 Unknown suspension (Carafate) promethazine 12.5 mg tablet 12.5 mg PO TID PRN nausea and 06/15/23 06/23/23 Unknown vomiting #30 tabs apixaban 5 mg tablet (Eliquis) 5 mg PO BID #60 tabs 06/21/23 06/23/23 Unknown furosemide 20 mg tablet 20 mg PO QAM PRN volume overload 06/21/23 06/23/23 11/08/22 or weight gain #30 tabs insulin glargine 100 unit/mL (3 15 unit (0.15 mL) subcut AMPM #12 06/21/23 06/23/23 Unknown mL) subcutaneous pen (Lantus mL Solostar U-100 Insulin) magnesium chloride 64 mg 64 mg PO BID #60 tabs 06/21/23 06/23/23 Unknown (magnesium chloride) tablet,delayed release (Mag 64) metoprolol succinate 25 mg 25 mg PO BID #60 tabs 06/21/23 06/23/23 Unknown tablet,extended release 24 hr venlafaxine 75 mg capsule,extended 75 mg PO QPM #30 caps 06/21/23 06/23/23 Unknown release 24 hr meclizine 12.5 mg tablet 12.5 mg PO QAM #30 tabs 06/23/23 06/23/23 Unknown Active Medications Generic Name Dose Route Start Last Admin Trade Name Freq PRN Reason Stop Dose Admin Apixaban 5 mg 06/24/23 09:00 06/26/23 22:27 Apixaban 5 Mg Tablet PO 07/24/23 08:59 5 mg BID HALEY Administration Flucytosine 1,500 mg 06/26/23 18:00 06/27/23 05:33 Flucytosine 500 Mg Cap PO 07/26/23 17:59 1,500 mg Q12H HALEY Administration Fluticasone Propionate 1 sprays 06/24/23 09:00 06/27/23 08:08 Fluticasone Propionate Na Spr 16 Gm Btl NA 07/24/23 08:59 1 sprays DAILY HALEY Administration Amphotericin B 200 mg/ 200 mls @ 125 mls/hr 06/25/23 14:00 06/25/23 17:04 Dextrose IV 07/05/23 13:59 Infused Q24H HALEY Infusion Lactated Ringer's 1,000 mls @ 100 mls/hr 06/26/23 10:00 06/27/23 15:03 Lr IV 07/26/23 09:59 100 mls/hr .Q10H HALEY Administration Ibuprofen 600 mg 06/25/23 15:29 06/25/23 15:46 Ibuprofen 600 Mg Tab PO 07/25/23 15:28 600 mg Q6H PRN Administration Fever or headache Insulin Aspart 0 units 06/24/23 07:30 06/27/23 12:05 Insulin Aspart Per Unit Charge SC 07/24/23 07:29 2 units ACHS HALEY Administration Insulin Glargine 15 units 06/24/23 04:45 06/27/23 08:16 Lantus Per Unit Charge SQ 07/24/23 04:44 15 units BID HALEY Administration Magnesium Chloride 64 mg 06/24/23 09:00 06/27/23 08:08 Magnesium Chloride W/Calcium 64mg Delayed Rel Tab PO 07/24/23 08:59 64 mg BID HALEY Administration Meclizine HCl 12.5 mg 06/24/23 09:00 06/27/23 08:09 Meclizine 12.5 Mg Tab PO 07/24/23 08:59 12.5 mg QAM HALEY Administration Metoprolol Succinate 25 mg 06/24/23 09:00 06/27/23 08:08 Metoprolol Succ 25mg Ext Rel Tab PO 07/24/23 08:59 25 mg BID HALEY Administration Multivitamins 1 tab 06/24/23 09:00 06/27/23 08:09 Multivitamin Tab PO 07/24/23 08:59 1 tab QAM HALEY Administration Ondansetron HCl 4 mg 06/24/23 02:24 06/27/23 05:59 Ondansetron 4 Mg Od Tab PO 07/24/23 02:23 4 mg Q6H PRN Administration Nausea Pantoprazole Sodium 40 mg 06/24/23 09:00 06/27/23 08:08 Pantoprazole 40 Mg Tab PO 07/24/23 08:59 40 mg BID HALEY Administration Potassium Chloride 20 meq 06/24/23 09:00 06/27/23 08:08 Potassium Chloride Crtab 20 Meq Tabcr PO 07/24/23 08:59 20 meq QAM HALEY Administration Quetiapine Fumarate 25 mg 06/24/23 21:00 06/26/23 22:26 Quetiapine Fumarate 25 Mg Tablet PO 07/24/23 20:59 25 mg HS HALEY Administration Saccharomyces Boulardii 250 mg 06/24/23 09:00 06/27/23 08:09 Saccharomyces Boulardii 250 Mg Cap PO 07/24/23 08:59 250 mg BID HALEY Administration Sucralfate 1 gm 06/24/23 09:00 06/27/23 12:03 Sucralfate 1 Gm/10 Ml Udc PO 07/24/23 08:59 1 gm QID HALEY Administration Venlafaxine HCl 75 mg 06/24/23 21:00 06/26/23 22:26 Venlafaxine Hcl Xr 75 Mg Capxr PO 07/24/23 20:59 75 mg QPM HALEY Administration Venlafaxine HCl 150 mg 06/24/23 21:00 06/26/23 22:29 Venlafaxine Hcl Xr 150 Mg Capxr PO 07/24/23 20:59 150 mg QPM HALEY Administration Vitamin D 2,000 units 06/24/23 09:00 06/27/23 08:08 Cholecalciferol 1,000 Units 25 Mcg Tab PO 07/24/23 08:59 2,000 units DAILY HALEY Administration
[2023-06-27] MEDS: AMPHOTERICIN B LIPOSOMAL IV SCH (18:07)
[2023-06-27] MEDS: [UNRECOGNIZED DRUG - OTHER] IV SCH (18:07)
[2023-06-27] MEDS: VENLAFAXINE HCL XR 75 MG CAPXR PO SCH (20:03)
[2023-06-27] MEDS: QUEtiapine FUMARATE 25 MG TABLET PO SCH (20:04)
[2023-06-27] MEDS: VENLAFAXINE HCL XR 150 MG CAPXR PO SCH (20:04)
[2023-06-28] MEDS: FLUCYTOSINE 500 MG CAP PO SCH ×3 (06:08→23:14)
--- NOTE | 2023-06-28 07:13 | Hospitalist Progress Note ---
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 History of cryptococcal meningitis (dx 02/2022) - pt presenting with increase in auditory/visual hallucinations - ID consulted; recommended brain MRI which showed increased inflammation of her cerebellum - LP scheduled for after holding eliquis x3 days - meningitis/encephalitis panel pending, serum cryptococcal Ag pending - bacterial blood cx neg; fungal blood cx neg - began liposomal amphotericin (3mg/kg daily) and flucytosine (25 mg/kg QID) 06/25; flucytosine increased back to QID d/t recovered Cr - discontinue home fluconazole; ID will start prior auth for outpatient voriconazole (switch from fluconazole for crm developer tx d/t tx failure and intolerance) - appreciate ID recommendations Drug-induced ALBINA - hold fluids as pt's Cr recovered - nephro following Insulin dependent diabetes mellitus - during previous hospitalization, basal insulin was decreased d/t hypoglycemic episodes - continue home basal regimen with SSI Anxiety - continue home venlafaxine 150mg daily - pt would benefit from outpatient counseling Paroxysmal afib - continue metoprolol - hold eliquis for LP Cirrhosis - stable; no acute decompensation Electrolyte derangements - hypomagnesemia and hypokalemia; continue supplementation Gastritis - continue pantoprazole and sucralfate Code status: full Diet: carb consistent DVT ppx: eliquis on hold d/t LP Dispo: med/surg (2) Cryptococcal meningitis: (3) Uncontrolled type 2 diabetes mellitus with hyperglycemia, with long-term current use of insulin: (4) Anxiety: (5) Paroxysmal A-fib: (6) Cirrhosis of liver: (7) Hypomagnesemia: (8) Hypokalemia: (9) Gastritis: (10) Hypertension: Admission and Anticipated Discharge Date Admission Date: June 24, 2023 Supervising Physician Co-Signing Physician Notes ATTESTATION I also saw the patient and confirmed fish portions of the history and exam. I agree with the impression and plan in the resident documentation, and as summarized below. Upon our morning exam patient notes mild nausea and low-grade headache, similar to previous EXAM 97/61, 59, 18, 36.8, 96% on room air Alert and oriented. Heart regular rate and rhythm Respirations are nonlabored Extremities without edema DATA Labs Hemoglobin 7.8, platelet count 128 Sodium 141, potassium 3.7, BUN 31, creatinine 1.15 IMPRESSION & PLAN I agree with the impression and plan as noted in the resident documentation. History of cryptococcal meningitis Appreciate ID consultation LP scheduled for after holding Eliquis x3 days ALBINA, resolved Medications adjusted per pharmacy Nephrology consultation appreciated Additional per resident documentation Subjective Pt feeling the same today. She has notices slightly puffiness around her feet. She also makes note of seeing men in her room/on the roof last night and she was concerned they were going to fall. Review of Systems Review of Systems: As per HPI Physical Exam Physical Exam: Constitutional: well appearing, no acute distress HEENT: normocephalic, no conjunctival injection CV: clinically well perfused, no LE edema Respiratory: no increased work of breathing MSK: no gross deformities noted Skin: warm, dry, no rashes Neuro: alert, oriented, no FND noted Results & Data Results & Data Vital Signs (Past 12 Hours) Vital Signs Temp Pulse Resp BP Pulse Ox O2 Del Method 06/27/23 20:44 36.7 C 60 18 116/69 99 Room Air 06/27/23 20:11 64 117/70 Resident Activity Tracking Resident Involvement: Resident Care Provided Care Provided: Adult [facility] (10) Hypertension Hypertension type: essential hypertension Qualified Code(s): I10 - Essential (primary) hypertension
[2023-06-28 08:40] LABS: Hematocrit (blood only) 23.3 % (37.0-47.0); Hemoglobin 7.8 g/dl (12.0-16.0); Mean Corpuscular Hemoglobin 27.7 pg (25.0-34.0); Mean Corpuscular Hgb Conc 33.5 g/dL (32.0-36.0); Mean Corpuscular Volume 82.6 fL (80.0-100.0); Mean Platelet Volume 11.7 fL (9.4-12.4); Platelet Count 128 K/uL (130-400); RDW Coefficient of Variation 16.3 % (11.5-14.5); RDW Standard Deviation 49.1 fL (36.4-46.3); Red Blood Count 2.82 M/uL (4.20-5.40); White Blood Count 3.81 K/ul (4.8-10.8)
[2023-06-28 08:53] LABS: Calcium 8.6 mg/dl (8.6-10.3); Creatinine Clr Calc Pharmacy 42.7 ml/min; Est GFR (African American) 58.2 ml/min; Est GFR (Non-African American) 50.2 ml/min; Magnesium 1.4 mg/dl (1.7-2.4); Potassium 3.7 mmol/L (3.5-5.1)
[2023-06-28] MEDS: LACTATED RINGER'S 1,000 ML IV SCH (09:43)
[2023-06-28] MEDS: FLUTICASONE PROPIONATE NA SPR 16 GM BTL SCH (09:46)
[2023-06-28] MEDS: CHOLECALCIFEROL 1,000 UNITS 25 MCG TAB PO SCH (09:46)
[2023-06-28] MEDS: METOPROLOL SUCC 25MG EXT REL TAB PO SCH ×2 (09:47→21:27)
[2023-06-28] MEDS: MECLIZINE 12.5 MG TAB PO SCH (09:47)
[2023-06-28] MEDS: MAGNESIUM CHLORIDE W/CALCIUM 64MG DELAYED REL TAB PO SCH ×2 (09:47→21:26)
[2023-06-28] MEDS: MULTIVITAMIN TAB PO SCH (09:47)
[2023-06-28] MEDS: PANTOprazole 40 MG TAB PO SCH ×2 (09:48→21:26)
[2023-06-28] MEDS: POTASSIUM CHLORIDE CRTAB 20 MEQ TABCR PO SCH (09:48)
[2023-06-28] MEDS: SACCHAROMYCES BOULARDII 250 MG CAP PO SCH ×2 (09:48→21:26)
[2023-06-28] MEDS: SUCRALFATE 1 GM/10 ML UDC PO SCH ×4 (09:49→21:27)
[2023-06-28] MEDS: LANTUS PER UNIT CHARGE SQ SCH ×2 (09:53→21:28)
[2023-06-28] MEDS: MAGNESIUM SULFATE / D5W 1 GM/100 ML BAG IV SCH ×2 (09:58→11:36)
--- NOTE | 2023-06-28 10:08 | Nephrology Progress Note ---
Date of Service June 28, 2023 Assessment & Plan (1) ALBINA (acute kidney injury): Plan 63 y o F with history of hypertension, diabetes, prior history of ALBINA but baseline normal renal function baseline creatinine 0.8-0.9, admitted with hallucination found to have ALBINA, creatinine was 1.7. No significant proteinuria or hematuria. CT abdomen pelvis 2 weeks ago was otherwise unremarkable. Overall clinically asymptomatic and stable. Blood pressure well controlled. ALBINA resolved, creatinine close to baseline, electrolyte acceptable. --encourage to maintain adequate po intake, avoid NSAID's and other nephrotoxic meds. Will sign off. Thank you for the consult. Admission and Anticipated Discharge Date Admission Date: June 24, 2023 Subjective Sudha was seen and evaluated this morning. Denies any specific symptoms. Blood pressure acceptable. ALBINA resolved, creatinine down to 1.2. Review of Systems Review of Systems: Detailed review of system was done pertinent positives and negatives are mentioned above. Physical Exam Constitutional: WD/WN, vitals as above no acute distress Eyes: + anicteric sclerae ENMT: Ears: no hearing impairment Neck: normal visual inspection Respiratory: Auscultation: lungs clear to auscultation bilaterally Cardiovascular: RRR, no murmur, no edema Skin: no rashes, warm and dry Neurologic: no focal motor deficits and not confused Psychiatric: Orientation: alert and oriented x 3 Results & Data Vital Signs (Past 12 Hours) Vital Signs Temp Pulse Resp BP Pulse Ox O2 Del Method 06/28/23 09:44 59 L 108/69 06/28/23 07:23 36.6 C 58 L 17 104/64 97 Room Air PG Care Time/CCT Total # of Minutes Spent Total Time Spent with Patient: Total time spent is greater than 50% in coordination of care (as documented) at patient's floor/unit and/or counseling patient: Coding Level of Care Code 13916 SUB INP/OBS CARE 10/20MIN Diagnoses ALBINA (acute kidney injury) N17.9
[2023-06-28] MEDS: INSULIN ASPART PER UNIT CHARGE SC SCH ×4 (10:23→21:27)
[2023-06-28] MEDS: ONDANSETRON 4 MG OD TAB PO PRN (11:34)
[2023-06-28] MEDS ORDERED: FLUCYTOSINE 500 MG CAP PO SCH (13:00)
[2023-06-28] MEDS: AMPHOTERICIN B LIPOSOMAL IV SCH (19:31)
[2023-06-28] MEDS: [UNRECOGNIZED DRUG - OTHER] IV SCH (19:31)
[2023-06-28] MEDS: VENLAFAXINE HCL XR 150 MG CAPXR PO SCH (21:26)
[2023-06-28] MEDS: VENLAFAXINE HCL XR 75 MG CAPXR PO SCH (21:26)
[2023-06-28] MEDS: QUEtiapine FUMARATE 25 MG TABLET PO SCH (21:26)
[2023-06-29] MEDS: FLUCYTOSINE 500 MG CAP PO SCH ×3 (05:58→17:50)
--- NOTE | 2023-06-29 07:46 | Hospitalist Progress Note ---
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 History of cryptococcal meningitis (dx 02/2022) - pt presenting with increase in auditory/visual hallucinations - ID consulted; recommended brain MRI which showed increased inflammation of her cerebellum - LP scheduled for after holding eliquis x3 days - meningitis/encephalitis panel pending, serum cryptococcal Ag pending - bacterial blood cx neg; fungal blood cx neg - began liposomal amphotericin (3mg/kg daily) and flucytosine (25 mg/kg QID) 06/25; continue current dosing regimen as Cr allows - discontinue home fluconazole; ID will start prior auth for outpatient voriconazole (switch from fluconazole for long-term tx d/t ?tx failure and intolerance) - appreciate ID recommendations Drug-induced ALBINA - hold fluids as pt's Cr recovered - continue to monitor Insulin dependent diabetes mellitus - during previous hospitalization, basal insulin was decreased d/t hypoglycemic episodes - decreased basal insulin to 10 units BID in the setting of hypoglycemia this AM - continue SSI: goal 100-140, CF 50, CR 25 Anxiety - continue home venlafaxine 150mg daily - pt would benefit from outpatient counseling Paroxysmal afib - continue metoprolol - hold eliquis for LP Cirrhosis - stable; no acute decompensation Electrolyte derangements - hypomagnesemia and hypokalemia; continue supplementation Gastritis - continue pantoprazole and sucralfate Code status: full Diet: carb consistent DVT ppx: eliquis on hold d/t LP Dispo: med/surg (2) Cryptococcal meningitis: (3) Uncontrolled type 2 diabetes mellitus with hyperglycemia, with long-term current use of insulin: (4) Anxiety: (5) Paroxysmal A-fib: (6) Cirrhosis of liver: (7) Hypomagnesemia: (8) Hypokalemia: (9) Gastritis: (10) Hypertension: Admission and Anticipated Discharge Date Admission Date: June 24, 2023 Supervising Physician Co-Signing Physician Notes ATTESTATION I also saw the patient and confirmed fish portions of the history and exam. I agree with the impression and plan in the resident documentation, and as summarized below. EXAM 109/68, 67, 16, 36.9, 97% on room air Alert and oriented. Heart regular rate and rhythm Respirations are nonlabored Extremities without edema DATA Labs Hemoglobin 7.9, WBC 4.56 Sodium 140, potassium 3.4, BUN 31, creatinine 1.19 IMPRESSION & PLAN I agree with the impression and plan as noted in the resident documentation. History of cryptococcal meningitis Appreciate ID consultation LP scheduled for tomorrow after holding Eliquis x3 days ALBINA, resolved Medications adjusted per pharmacy Nephrology consultation appreciated Additional per resident documentation Subjective Pt has no concerns this morning. No chest pain, SOB, leg pains, or swelling. Review of Systems Review of Systems: As per HPI Physical Exam Physical Exam: Constitutional: well appearing, no acute distress HEENT: normocephalic, no conjunctival injection CV: regular rhythm, regular rate, no murmur, no LE edema Respiratory: Clear to auscultation bilaterally. No rhonchi, wheezes, or crackles. No increased work of breathing MSK: no gross deformities noted Skin: warm, dry, no rashes Neuro: alert, oriented, no FND noted Results & Data Results & Data Vital Signs (Past 12 Hours) Vital Signs Temp Pulse Resp BP Pulse Ox O2 Del Method 06/28/23 20:45 Room Air 06/28/23 20:46 36.7 C 70 16 120/71 100 Room Air Resident Activity Tracking Resident Involvement: Resident Care Provided Care Provided: Adult Hospital Medicine (10) Hypertension Hypertension type: essential hypertension Qualified Code(s): I10 - Essential (primary) hypertension
[2023-06-29 08:17] LABS: Hematocrit (blood only) 24.1 % (37.0-47.0); Hemoglobin 7.9 g/dl (12.0-16.0); Mean Corpuscular Hemoglobin 27.1 pg (25.0-34.0); Mean Corpuscular Hgb Conc 32.8 g/dL (32.0-36.0); Mean Corpuscular Volume 82.8 fL (80.0-100.0); Mean Platelet Volume 12.3 fL (9.4-12.4); Platelet Count 116 K/uL (130-400); RDW Coefficient of Variation 15.7 % (11.5-14.5); RDW Standard Deviation 47.5 fL (36.4-46.3); Red Blood Count 2.91 M/uL (4.20-5.40); White Blood Count 4.56 K/ul (4.8-10.8)
[2023-06-29 08:32] LABS: BUN Creatinine Ratio 26.1 (10-20); Calcium 8.7 mg/dl (8.6-10.3); Creatinine Clr Calc Pharmacy 41.2 ml/min; Est GFR (African American) 55.9 ml/min; Est GFR (Non-African American) 48.2 ml/min; Magnesium 1.6 mg/dl (1.7-2.4); Potassium 3.4 mmol/L (3.5-5.1)
[2023-06-29] MEDS: FLUTICASONE PROPIONATE NA SPR 16 GM BTL SCH (08:51)
[2023-06-29] MEDS: MAGNESIUM CHLORIDE W/CALCIUM 64MG DELAYED REL TAB PO SCH ×2 (08:51→20:21)
[2023-06-29] MEDS: CHOLECALCIFEROL 1,000 UNITS 25 MCG TAB PO SCH (08:51)
[2023-06-29] MEDS: MECLIZINE 12.5 MG TAB PO SCH (08:52)
[2023-06-29] MEDS: MULTIVITAMIN TAB PO SCH (08:52)
[2023-06-29] MEDS: PANTOprazole 40 MG TAB PO SCH ×2 (08:52→20:20)
[2023-06-29] MEDS: SUCRALFATE 1 GM/10 ML UDC PO SCH ×4 (08:53→20:21)
[2023-06-29] MEDS: POTASSIUM CHLORIDE CRTAB 20 MEQ TABCR PO SCH (08:53)
[2023-06-29] MEDS: SACCHAROMYCES BOULARDII 250 MG CAP PO SCH ×2 (08:53→20:22)
[2023-06-29] MEDS: METOPROLOL SUCC 25MG EXT REL TAB PO SCH ×2 (08:55→20:21)
[2023-06-29] MEDS: INSULIN ASPART PER UNIT CHARGE SC SCH ×4 (08:57→20:45)
[2023-06-29] MEDS: LANTUS PER UNIT CHARGE SQ SCH ×2 (09:00→20:48)
[2023-06-29] MEDS ORDERED: MAGNESIUM SULFATE / D5W 1 GM/100 ML BAG IV ONE (09:08)
[2023-06-29] MEDS ORDERED: POTASSIUM CHLORIDE CRTAB 20 MEQ TABCR PO ONE (09:08)
[2023-06-29] MEDS: AMPHOTERICIN B LIPOSOMAL IV SCH (18:33)
[2023-06-29] MEDS: [UNRECOGNIZED DRUG - OTHER] IV SCH (18:33)
[2023-06-29] MEDS: IBUPROFEN 600 MG TAB PO PRN (18:36)
[2023-06-29] MEDS: QUEtiapine FUMARATE 25 MG TABLET PO SCH (20:21)
[2023-06-29] MEDS: VENLAFAXINE HCL XR 150 MG CAPXR PO SCH (20:21)
[2023-06-29] MEDS: VENLAFAXINE HCL XR 75 MG CAPXR PO SCH (20:21)
[2023-06-29 21:22] LABS: Cryptococcal Antigen Not Detected (Not Detected); Source Serum
[2023-06-30] MEDS: FLUCYTOSINE 500 MG CAP PO SCH ×3 (00:56→17:18)
--- NOTE | 2023-06-30 07:26 | Hospitalist Progress Note ---
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 History of cryptococcal meningitis (dx 02/2022) - pt presenting with increase in auditory/visual hallucinations - ID consulted; recommended brain MRI which showed increased inflammation of her cerebellum - LP performed 06/30; CSF studies pending - CSF meningitis/encephalitis neg, serum cryptococcal Ag neg - bacterial blood cx neg; fungal blood cx neg - began liposomal amphotericin (3mg/kg daily) and flucytosine (25 mg/kg QID) 06/25; continue current dosing regimen as Cr allows - discontinue home fluconazole; ID will start prior auth for outpatient voriconazole (switch from fluconazole for skilled nursing tx d/t ?tx failure and intolerance) - updated pt's outpatient ID Dr. Huggins; Srinivasa ID consult pending Drug-induced ALBINA - resume IVF d/t Cr - continue to monitor Insulin dependent diabetes mellitus - during previous hospitalization, basal insulin was decreased d/t hypoglycemic episodes - decreased basal insulin to 10 units BID in the setting of hypoglycemia this AM - continue SSI: goal 100-140, CF 50, CR 25 Anxiety - continue home venlafaxine 150mg daily - pt would benefit from outpatient counseling Paroxysmal afib - continue metoprolol, resume eliquis tomorrow Cirrhosis - stable; no acute decompensation Electrolyte derangements - hypomagnesemia and hypokalemia; continue supplementation Gastritis - continue pantoprazole and sucralfate Code status: full Diet: carb consistent DVT ppx: resume eliquis tomorrow Dispo: med/surg (2) Cryptococcal meningitis: (3) Uncontrolled type 2 diabetes mellitus with hyperglycemia, with long-term current use of insulin: (4) Anxiety: (5) Paroxysmal A-fib: (6) Cirrhosis of liver: (7) Hypomagnesemia: (8) Hypokalemia: (9) Gastritis: (10) Hypertension: Admission and Anticipated Discharge Date Admission Date: June 24, 2023 Supervising Physician Co-Signing Physician Notes ATTESTATION I also saw the patient and confirmed fish portions of the history and exam. I agree with the impression and plan in the resident documentation, and as summarized below. Upon our midmorning exam, she was lying supine post LP EXAM 112/68, 64, 18 Alert and oriented. Heart regular rate and rhythm Respirations are nonlabored Extremities without edema DATA Labs Hemoglobin 7.9, WBC 4.56 Sodium 140, potassium 3.4, BUN 31, creatinine 1.19 IMPRESSION & PLAN I agree with the impression and plan as noted in the resident documentation. History of cryptococcal meningitis Appreciate ID consultation LP completed earlier today; will discuss when anticoagulation can be resumed ALBINA, resolved Medications adjusted per pharmacy Nephrology consultation appreciated Additional per resident documentation Subjective Pt feeling overall well this AM. She thinks that her headache and neck pain is slightly worse than previously. Review of Systems Review of Systems: As per HPI Physical Exam Physical Exam: Constitutional: well appearing, no acute distress HEENT: normocephalic, no conjunctival injection CV: regular rhythm, regular rate, no murmur, no LE edema Respiratory: Clear to auscultation bilaterally. No rhonchi, wheezes, or crackles. No increased work of breathing MSK: no gross deformities noted Skin: warm, dry, no rashes Neuro: alert, oriented, no FND noted Results & Data Results & Data Vital Signs (Past 12 Hours) Vital Signs Temp Pulse Resp BP Pulse Ox O2 Del Method 06/30/23 07:16 36.9 C 67 18 114/68 96 Room Air 06/29/23 21:55 36.8 C 73 18 115/67 97 Room Air Resident Activity Tracking Resident Involvement: Resident Care Provided Care Provided: Adult Hospital Medicine (10) Hypertension Hypertension type: essential hypertension Qualified Code(s): I10 - Essential (primary) hypertension
[2023-06-30] MEDS: CHOLECALCIFEROL 1,000 UNITS 25 MCG TAB PO SCH (07:45)
[2023-06-30] MEDS: SACCHAROMYCES BOULARDII 250 MG CAP PO SCH ×2 (07:45→19:42)
[2023-06-30] MEDS: METOPROLOL SUCC 25MG EXT REL TAB PO SCH ×2 (07:46→19:52)
[2023-06-30] MEDS: FLUTICASONE PROPIONATE NA SPR 16 GM BTL SCH (07:46)
[2023-06-30] MEDS: MECLIZINE 12.5 MG TAB PO SCH (07:46)
[2023-06-30] MEDS: MAGNESIUM CHLORIDE W/CALCIUM 64MG DELAYED REL TAB PO SCH ×2 (07:46→19:41)
[2023-06-30] MEDS: POTASSIUM CHLORIDE CRTAB 20 MEQ TABCR PO SCH (07:46)
[2023-06-30] MEDS: PANTOprazole 40 MG TAB PO SCH ×2 (07:46→19:42)
[2023-06-30] MEDS: MULTIVITAMIN TAB PO SCH (07:46)
[2023-06-30] MEDS: SUCRALFATE 1 GM/10 ML UDC PO SCH ×4 (07:47→19:43)
[2023-06-30 08:48] LABS: Hematocrit (blood only) 22.5 % (37.0-47.0); Hemoglobin 7.6 g/dl (12.0-16.0); Mean Corpuscular Hemoglobin 27.1 pg (25.0-34.0); Mean Corpuscular Hgb Conc 33.8 g/dL (32.0-36.0); Mean Corpuscular Volume 80.4 fL (80.0-100.0); Mean Platelet Volume 12.2 fL (9.4-12.4); Platelet Count 124 K/uL (130-400); RDW Coefficient of Variation 15.5 % (11.5-14.5); RDW Standard Deviation 45.4 fL (36.4-46.3)
[2023-06-30 09:00] LABS: Calcium 8.8 mg/dl (8.6-10.3); Creatinine Clr Calc Pharmacy 36.1 ml/min; Est GFR (African American) 47.5 ml/min; Potassium 4.2 mmol/L (3.5-5.1)
[2023-06-30] MEDS: INSULIN ASPART PER UNIT CHARGE SC SCH ×4 (09:18→21:17)
[2023-06-30] MEDS: LANTUS PER UNIT CHARGE SQ SCH ×2 (10:00→21:17)
[2023-06-30 11:17] LABS: Cryptococcus neoformans/ga PCR Not Detected (NotDetected); Cytomegalovirus PCR Not Detected (NotDetected); Enterovirus PCR Not Detected (NotDetected); Escherichia coli K1 PCR Not Detected (NotDetected); Haemophilius influenzae PCR Not Detected (NotDetected); Herpes Simplex Virus 1 PCR Not Detected (NotDetected); Herpes Simplex Virus 2 PCR Not Detected (NotDetected); Human Herpes Virus 6 PCR Not Detected (NotDetected); Human Parechovirus PCR Not Detected (NotDetected); Listeria monocytogenes PCR Not Detected (NotDetected); Neisseria meningitidis PCR Not Detected (NotDetected); Streptococcus agalactiae PCR Not Detected (NotDetected); Streptococcus pneumoniae PCR Not Detected (NotDetected); Varicella Zoster Virus PCR Not Detected (NotDetected)
--- NOTE | 2023-06-30 12:55 | Fluoroscopy Report ---
Lumbar puncture under fluoroscopy INDICATION: History of cryptococcal meningitis with recurrent symptoms PROCEDURE: Procedure and risks were explained. Informed consent was obtained. A final timeout was com pleted. The patient was placed prone on the fluoroscopic exam table. The lower lumbar region was prep ped and draped in sterile fashion. 1% lidocaine was utilized for skin anesthesia. Utilizing ultrasound guidance, a 22-gauge spinal needle was advanced into the intrathecal space at th e L4-5 disc space level. 2 permanent spot images were obtained. Approximately 8 mL of clear CSF fluid was removed and sent to lab for analysis. The needle was removed and Band-Aid applied. The patient t olerated the procedure well. Vital signs will be monitored postprocedure. Total fluoroscopy time 0.2 minutes. DAP is 4.42 mcGy/m2. IMPRESSION: Lumbar puncture as above. Performed, dictated, and signed by Nathan Son PA-C; to be co-signed by Dr. Sukhjinder Orozco. Electronically signed by: Sukhjinder Orozco M.D. 06/30/2023 11:16 PM
[2023-06-30 14:12] LABS: Appearance CSF Clear; CSF Count Tube # 3; CSF Xanthrochromic No xanthochromia; Color CSF Colorless; Red Blood Cell CSF Auto 1 /uL (0-); White Blood Cell CSF Auto 0 /uL (0-5)
[2023-06-30 14:16] LABS: Total Protein CSF 61.8 mg/dl (15-45)
[2023-06-30] MEDS: LACTATED RINGER'S 1,000 ML IV SCH (15:36)
[2023-06-30] MEDS: AMPHOTERICIN B LIPOSOMAL IV SCH (17:20)
[2023-06-30] MEDS: [UNRECOGNIZED DRUG - OTHER] IV SCH (17:20)
--- NOTE | 2023-06-30 17:27 | Infectious Disease Progress Nt ---
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 ID consulted for evaluation. Review of Dr. Huggins of [place] note from 12/02/22 states she initially diagnosed with cryptococcal meningitis in 02/2022 at [facility] and transferred to [facility]. She was treated with liposomal amphotericin and flucytosine through 03/16/22 followed by fluconazole 400mg daily for 8 weeks through 05/12/23. The she was changed to 200mg dailyon 05/13/22 for anticipated 1 year of therapy but in 07/17 dose was increased to 400mg daily d/t vertigo and hallucinations. There was di scussion at that time to change to isavuconazole because of drug interaction. She was admitted to [facility] in 05/2023 for weakness. ID was not consulted during that time. Her weakness was thought to be secondary to episodic diarrhea from fluconazole. For her afib she was changed from warfarin to Eliquis. She was also diagnosed with UTI, Ucx grew mssa and ecoli. She received Cefdinir On 06/23 she returned to ED with her son as he was concerned for increasing hallucinations. He reported that since the patient was discharged she has been having increased hallucinations talking to people who are not there including pictures on her cell phone thinking they are real people. Her VSS, CMP normal, aphos slightly increased to 121. UA shows 10-30 wbcs UC + lactobacillus On initial exam, she appeared comfortable She denied hearing voices or seeing people but upon further discussion admitted that a picture spoke to her awhile ago. No FLOWERS, visual changes, neck stiffness. No fevers/chills/diarrhea/ra sh/sob/cp PRIOR Pertinent labs HIV NR 03/02/22, Serum Crypto antigen positive 07/07/22, CSF cryto negative 07/07/22 05/31/23 Ucx>100,000 cfu/mL MSSA, 80,000 Ecoli panS 06/15/23 Ucx probable skin seda 06/15 Bcx sterile Micro this admission 10/5 CSF cx P 10/5 csf fungal cx P 10 M/E panel negative, with C neoformans not detected by pcr 06/25 Serum Crypto antigen negative 06/25 BCx NGTD 06/23 Ucx lactobcillus sp #Cryptococcal meningitis s/p induction and consolidation now on maintenance (HIV negative) #Visual/auditory hallucinations #Afib Discussion: She does have a history hallucinations which is unclear if this preceded her cryptococcal diagnosis. ID Connect ( Dr Ray ) attempted to call her ID doctor and left message on 06/24. Dr Ray spoke with Primary who recommend MRI. 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 Findings likely correlate with the reported history of meningitis. She is followed by Srinivasa DOUGLAS outpatient. It looks like the [facility] group made recs this weekend on 06/25 ( Dr Huggins) after viewing MRI head results to begin liposomal amphotericin B and flucytosine ; with plan to start prior auth for outpatient voriconazole ( d/t ? tx failure and intolerance with fluconazole) with plan for LP 06/30 STELLA giordano initially saw pt 06/24 but signed off 06/27 as STELLA bernabe requested Consult and knew pt longitudinally. Documentation per Dr Huggins 06/30 It appears covering ID Srinivasa attending, Dr Roxanne Becker will not be seeing patient. STELLA giordano reconsulted , [facility] to clarify their plan for this patient. I discussed with covering ID fellow (Dr Gustafson- fellow convex grinder operator) . Per his conversation, with Dr Becker and Bhavna they will not be seeing pt at [facility] and asked STELLA connect to continue to follow inpatient. LP done today with 0 and 1 WBC. crypto ag pending. CSF fungal cx P, Serum crypto ag not detected CSF crypto PCR not detected Recommend: FU csf crypto ag and fungal cx. Continue Lipososmal amph b and flucytosine. Will attempt to speak to outpt ID attending 07/01 ( d/w covering ID fellow today) Per Dr Huggins note on 06/25, plan was for ? oupt voriconazole ID will continue to follow. Eliza Jameson MD, MPH Infectious Disease ID Connect [facility], ID Division Call [phone] with questions Admission and Anticipated Discharge Date Admission Date: June 24, 2023 Subjective This patient recommendation is based on a telemedicine consult request which was completed asynchronously through chart review and information provided by the primary physician. The patient was not seen or examined today. The evaluation is consultative in nature and all patient care and treatment decisions can either be accepted or rejected by the patient's primary hospital-based treating physician using their own independent medical judgment for their patient. Time Spent Reviewing Chart: 31+ minutes Pt known to STELLA Bernabe and they made antifungal recs for pt on 06/25 with plan for LP 06/27. STELLA giordano initially saw pt 06/24 but signed off 06/27 as STELLA avalos requested Consult and knew pt longitudinally. It appears covering STELLA Bernabe attending, Dr Roxanne Becker will not be seeing pt and requests STELLA giordano follow inpt. LP completed today 0, 1 WBC. Csf Crypto PCR not detected. Csf crp ag pending cr 1.36 Results & Data Vital Signs (Past 12 Hours) Vital Signs Temp Pulse Resp BP Pulse Ox O2 Del Method 06/30/23 14:46 37 C 64 18 112/68 96 Room Air 06/30/23 10:12 68 18 123/78 98 Room Air 06/30/23 10:31 36.9 C 68 18 123/80 99 Room Air 06/30/23 09:58 36.9 C 68 18 122/75 97 Room Air 06/30/23 09:00 Room Air 06/30/23 07:16 36.9 C 67 18 114/68 96 Room Air Laboratory Results Laboratory Results - last 48 hr 06/25/23 06/28/23 06/29/23 12:57 20:40 07:49 WBC RBC Hgb Hct MCV MCH MCHC RDW Std Deviation RDW Coeff of Jun Plt Count MPV Sodium Potassium Chloride Carbon Dioxide Anion Gap BUN Creatinine Est Cr Clr Drug Dosing Est GFR ( Amer) Est GFR (Non-Af Amer) BUN/Creatinine Ratio Glucose POC Glucose 174 H 63 L* Calcium Magnesium Fluid Comment CSF Appearance CSF Color Xanthrochromic CSF WBC (Auto) CSF WBC CSF RBC (Auto) CSF RBC CSF Cell Count Tube # CSF Chemistry Tube # CSF Glucose CSF Total Protein CSF C.neoform/gat PCR CSF CMV DNA (PCR) CSF Enterovirus (PCR) CSF E. coli K1 (PCR) CSF H. influenzae (PCR) CSF HSV I (PCR) CSF HSV II (PCR) CSF HHV 6 (PCR) CSF L.monocytogenes PCR CSF N. meningitidis PCR CSF Parechovirus (PCR) CSF S. agalactiae (PCR) CSF S. pneumoniae (PCR) CSF VZV DNA (PCR) Cryptococcus Source Serum Cryptococcal Ag (Latex) Not Detected 06/29/23 06/29/23 06/29/23 07:50 07:56 07:56 WBC 4.56 L RBC 2.91 L Hgb 7.9 L Hct 24.1 L MCV 82.8 MCH 27.1 MCHC 32.8 RDW Std Deviation 47.5 H RDW Coeff of Jun 15.7 H Plt Count 116 L MPV 12.3 Sodium 140 Potassium 3.4 L Chloride 109 H Carbon Dioxide 25 Anion Gap 6 BUN 31 H Creatinine 1.19 Est Cr Clr Drug Dosing 41.2 Est GFR ( Amer) 55.9 Est GFR (Non-Af Amer) 48.2 BUN/Creatinine Ratio 26.1 H Glucose 64 L POC Glucose 66 L* Calcium 8.7 Magnesium 1.6 L Fluid Comment CSF Appearance CSF Color Xanthrochromic CSF WBC (Auto) CSF WBC CSF RBC (Auto) CSF RBC CSF Cell Count Tube # CSF Chemistry Tube # CSF Glucose CSF Total Protein CSF C.neoform/gat PCR CSF CMV DNA (PCR) CSF Enterovirus (PCR) CSF E. coli K1 (PCR) CSF H. influenzae (PCR) CSF HSV I (PCR) CSF HSV II (PCR) CSF HHV 6 (PCR) CSF L.monocytogenes PCR CSF N. meningitidis PCR CSF Parechovirus (PCR) CSF S. agalactiae (PCR) CSF S. pneumoniae (PCR) CSF VZV DNA (PCR) Cryptococcus Source Cryptococcal Ag (Latex) 06/29/23 06/29/23 06/29/23 08:10 11:46 16:45 WBC RBC Hgb Hct MCV MCH MCHC RDW Std Deviation RDW Coeff of Jun Plt Count MPV Sodium Potassium Chloride Carbon Dioxide Anion Gap BUN Creatinine Est Cr Clr Drug Dosing Est GFR ( Amer) Est GFR (Non-Af Amer) BUN/Creatinine Ratio Glucose POC Glucose 74 167 H 123 H Calcium Magnesium Fluid Comment CSF Appearance CSF Color Xanthrochromic CSF WBC (Auto) CSF WBC CSF RBC (Auto) CSF RBC CSF Cell Count Tube # CSF Chemistry Tube # CSF Glucose CSF Total Protein CSF C.neoform/gat PCR CSF CMV DNA (PCR) CSF Enterovirus (PCR) CSF E. coli K1 (PCR) CSF H. influenzae (PCR) CSF HSV I (PCR) CSF HSV II (PCR) CSF HHV 6 (PCR) CSF L.monocytogenes PCR CSF N. meningitidis PCR CSF Parechovirus (PCR) CSF S. agalactiae (PCR) CSF S. pneumoniae (PCR) CSF VZV DNA (PCR) Cryptococcus Source Cryptococcal Ag (Latex) 06/29/23 06/30/23 06/30/23 20:38 07:45 08:15 WBC 4.90 RBC 2.80 L Hgb 7.6 L Hct 22.5 L MCV 80.4 MCH 27.1 MCHC 33.8 RDW Std Deviation 45.4 RDW Coeff of Jun 15.5 H Plt Count 124 L MPV 12.2 Sodium Potassium Chloride Carbon Dioxide Anion Gap BUN Creatinine Est Cr Clr Drug Dosing Est GFR ( Amer) Est GFR (Non-Af Amer) BUN/Creatinine Ratio Glucose POC Glucose 139 H 87 Calcium Magnesium Fluid Comment CSF Appearance CSF Color Xanthrochromic CSF WBC (Auto) CSF WBC CSF RBC (Auto) CSF RBC CSF Cell Count Tube # CSF Chemistry Tube # CSF Glucose CSF Total Protein CSF C.neoform/gat PCR CSF CMV DNA (PCR) CSF Enterovirus (PCR) CSF E. coli K1 (PCR) CSF H. influenzae (PCR) CSF HSV I (PCR) CSF HSV II (PCR) CSF HHV 6 (PCR) CSF L.monocytogenes PCR CSF N. meningitidis PCR CSF Parechovirus (PCR) CSF S. agalactiae (PCR) CSF S. pneumoniae (PCR) CSF VZV DNA (PCR) Cryptococcus Source Cryptococcal Ag (Latex) 06/30/23 06/30/23 06/30/23 08:15 09:41 09:41 WBC RBC Hgb Hct MCV MCH MCHC RDW Std Deviation RDW Coeff of Jun Plt Count MPV Sodium 140 Potassium 4.2 D Chloride 111 H Carbon Dioxide 24 Anion Gap 5 BUN 34 H Creatinine 1.36 H Est Cr Clr Drug Dosing 36.1 Est GFR ( Amer) 47.5 Est GFR (Non-Af Amer) 41.0 BUN/Creatinine Ratio 25.0 H Glucose 83 POC Glucose Calcium 8.8 Magnesium Fluid Comment CSF Appearance Clear CSF Color Colorless Xanthrochromic No xanthochromia CSF WBC (Auto) 0 CSF WBC 1 CSF RBC (Auto) 1 CSF RBC 0 CSF Cell Count Tube # 3 CSF Chemistry Tube # CSF Glucose CSF Total Protein CSF C.neoform/gat PCR Not Detected CSF CMV DNA (PCR) Not Detected CSF Enterovirus (PCR) Not Detected CSF E. coli K1 (PCR) Not Detected CSF H. influenzae (PCR) Not Detected CSF HSV I (PCR) Not Detected CSF HSV II (PCR) Not Detected CSF HHV 6 (PCR) Not Detected CSF L.monocytogenes PCR Not Detected CSF N. meningitidis PCR Not Detected CSF Parechovirus (PCR) Not Detected CSF S. agalactiae (PCR) Not Detected CSF S. pneumoniae (PCR) Not Detected CSF VZV DNA (PCR) Not Detected Cryptococcus Source Cryptococcal Ag (Latex) 06/30/23 06/30/23 06/30/23 09:41 11:34 16:41 WBC RBC Hgb Hct MCV MCH MCHC RDW Std Deviation RDW Coeff of Jun Plt Count MPV Sodium Potassium Chloride Carbon Dioxide Anion Gap BUN Creatinine Est Cr Clr Drug Dosing Est GFR ( Amer) Est GFR (Non-Af Amer) BUN/Creatinine Ratio Glucose POC Glucose 75 76 Calcium Magnesium Fluid Comment CSF Appearance CSF Color Xanthrochromic CSF WBC (Auto) CSF WBC CSF RBC (Auto) CSF RBC CSF Cell Count Tube # CSF Chemistry Tube # 1 CSF Glucose 54 CSF Total Protein 61.8 H CSF C.neoform/gat PCR CSF CMV DNA (PCR) CSF Enterovirus (PCR) CSF E. coli K1 (PCR) CSF H. influenzae (PCR) CSF HSV I (PCR) CSF HSV II (PCR) CSF HHV 6 (PCR) CSF L.monocytogenes PCR CSF N. meningitidis PCR CSF Parechovirus (PCR) CSF S. agalactiae (PCR) CSF S. pneumoniae (PCR) CSF VZV DNA (PCR) Cryptococcus Source Cryptococcal Ag (Latex) Diagnostic Findings Microbiology 06/30/23 09:41 Cerebral Spinal Fluid Gram Stain - Final 06/25/23 17:15 Blood Aerobic Blood Culture - Preliminary No growth in Aerobic bottle after 48 hours. 06/25/23 17:15 Blood Anaerobic Blood Culture - Preliminary No growth in Anaerobic bottle after 48 hours. 06/25/23 17:04 Blood Aerobic Blood Culture - Preliminary No growth in Aerobic bottle after 48 hours. 06/25/23 17:04 Blood Anaerobic Blood Culture - Preliminary No growth in Anaerobic bottle after 48 hours. 06/25/23 17:04 Blood Fungal Smear - Final 06/25/23 17:04 Blood Fungal Culture - Preliminary No yeast or fungus isolated - Report 1, Additional Report to Follow. 06/23/23 23:20 Urine,Clean Catch Urine Culture - Final Lactobacillus species Lumbar Puncture 06/30/23 09:00 Lumbar puncture under fluoroscopy INDICATION: History of cryptococcal meningitis with recurrent symptoms PROCEDURE: Procedure and risks were explained. Informed consent was obtained. A final timeout was completed. The patient was placed prone on the fluoroscopic exam table. The lower lumbar region was prepped and draped in sterile fashion. 1% lidocaine was utilized for skin anesthesia. Utilizing ultrasound guidance, a 22-gauge spinal needle was advanced into the intrathecal space at the L4-5 disc space level. 2 permanent spot images were obtained. Approximately 8 mL of clear CSF fluid was removed and sent to lab for analysis. The needle was removed and Band-Aid applied. The patient tolerated the procedure well. Vital signs will be monitored postprocedure. Total fluoroscopy time 0.2 minutes. DAP is 4.42 mcGy/m2. IMPRESSION: Lumbar puncture as above. Performed, dictated, and signed by Nathan Son PA-C; to be co-signed by Dr. Sukhjnider Orozco. Medications Administered Home Medications Medication Instructions Recorded Confirmed Last Taken multivitamin 1 tab PO QAM 09/07/19 06/23/23 10/25/22 Contour Next Test Strips (blood #300 ea 12/29/20 06/23/23 Unknown sugar diagnostic) insulin aspart U-100 100 unit/mL See Rx Instructions subcut TIDM 06/29/22 06/23/23 Unknown (3 mL) subcutaneous pen fluconazole 200 mg tablet 400 mg PO DAILY 11/05/22 06/23/23 11/09/22 05:00 cholecalciferol (vitamin D3) 50 2,000 unit PO DAILY #90 caps 02/10/23 06/23/23 Unknown mcg (2,000 unit) capsule cetirizine 10 mg capsule (Zyrtec) 10 mg PO DAILY allergy symptoms 02/25/23 06/23/23 Unknown #90 caps betamethasone dipropionate 0.05 % 1 applic topical TID PRN skin 04/08/23 06/23/23 Unknown lotion irritation #60 mL venlafaxine 150 mg 150 mg PO QPM #1 cap 04/14/23 06/23/23 11/08/22 capsule,extended release 24 hr (Effexor XR) diphenhydramine HCl 25 mg capsule 25 mg PO TID PRN Allergy Symptoms 04/22/23 Unknown (Allergy (diphenhydramine)) potassium chloride 20 mEq 20 meq PO QAM #90 tabs 04/22/23 06/23/23 Unknown tablet,extended release quetiapine 25 mg tablet 25 mg PO HS #30 tabs 05/16/23 06/23/23 Unknown fluticasone propionate 50 1 spray intranasal DAILY #16 grams 05/20/23 06/23/23 Unknown mcg/actuation nasal spray,suspension (Flonase Allergy Relief) Saccharomyces boulardii 250 mg 250 mg PO BID #20 caps 05/31/23 06/23/23 Unknown capsule (Florastor) pantoprazole 40 mg tablet,delayed 40 mg PO BID #180 tabs 06/01/23 06/23/23 Unknown release sucralfate 100 mg/mL oral 10 ml PO QID #420 mL 06/14/23 06/23/23 Unknown suspension (Carafate) promethazine 12.5 mg tablet 12.5 mg PO TID PRN nausea and 06/15/23 06/23/23 Unknown vomiting #30 tabs apixaban 5 mg tablet (Eliquis) 5 mg PO BID #60 tabs 06/21/23 06/23/23 Unknown furosemide 20 mg tablet 20 mg PO QAM PRN volume overload 06/21/23 06/23/23 11/08/22 or weight gain #30 tabs insulin glargine 100 unit/mL (3 15 unit (0.15 mL) subcut AMPM #12 06/21/23 06/23/23 Unknown mL) subcutaneous pen (Lantus mL Solostar U-100 Insulin) magnesium chloride 64 mg 64 mg PO BID #60 tabs 06/21/23 06/23/23 Unknown (magnesium chloride) tablet,delayed release (Mag 64) metoprolol succinate 25 mg 25 mg PO BID #60 tabs 06/21/23 06/23/23 Unknown tablet,extended release 24 hr venlafaxine 75 mg capsule,extended 75 mg PO QPM #30 caps 06/21/23 06/23/23 Unknown release 24 hr meclizine 12.5 mg tablet 12.5 mg PO QAM #30 tabs 06/23/23 06/23/23 Unknown Active Medications Generic Name Dose Route Start Last Admin Trade Name Mikki PRN Reason Stop Dose Admin Apixaban 5 mg 06/24/23 09:00 06/26/23 22:27 Apixaban 5 Mg Tablet PO 07/24/23 08:59 5 mg BID HALEY Administration Flucytosine 1,500 mg 06/30/23 18:00 06/30/23 17:18 Flucytosine 500 Mg Cap PO 07/30/23 17:59 1,500 mg Q12H HALEY Administration Fluticasone Propionate 1 sprays 06/24/23 09:00 06/30/23 07:46 Fluticasone Propionate Na Spr 16 Gm Btl NA 07/24/23 08:59 1 sprays DAILY HALEY Administration Amphotericin B 200 mg/ 200 mls @ 125 mls/hr 06/25/23 14:00 06/30/23 17:20 Dextrose IV 07/05/23 13:59 125 mls/hr Q24H HALEY Administration Lactated Ringer's 1,000 mls @ 100 mls/hr 06/26/23 10:00 06/30/23 15:36 Lr IV 07/26/23 09:59 100 mls/hr .Q10H HALEY Administration Ibuprofen 600 mg 06/25/23 15:29 06/29/23 18:36 Ibuprofen 600 Mg Tab PO 07/25/23 15:28 600 mg Q6H PRN Administration Fever or headache Insulin Aspart 0 units 06/24/23 07:30 06/30/23 16:45 Insulin Aspart Per Unit Charge SC 07/24/23 07:29 Not Given ACHS [facility] Insulin Glargine 10 units 06/29/23 09:00 06/30/23 10:00 Lantus Per Unit Charge SQ 07/29/23 08:59 Not Given BID HALEY Magnesium Chloride 64 mg 06/24/23 09:00 06/30/23 07:46 Magnesium Chloride W/Calcium 64mg Delayed Rel Tab PO 07/24/23 08:59 64 mg BID HALEY Administration Meclizine HCl 12.5 mg 06/24/23 09:00 06/30/23 07:46 Meclizine 12.5 Mg Tab PO 07/24/23 08:59 12.5 mg QAM HALEY Administration Metoprolol Succinate 25 mg 06/24/23 09:00 06/30/23 07:46 Metoprolol Succ 25mg Ext Rel Tab PO 07/24/23 08:59 25 mg BID HALEY Administration Miscellaneous 15 - 30 gm 06/24/23 02:24 06/29/23 07:54 Carbohydrates For Hypoglycemia PO 07/24/23 02:23 15 gm UD PRN Administration Hypoglycemia Protocol Miscellaneous 1 each 06/27/23 21:00 06/29/23 20:22 Remove Lidoderm Patch N/A 07/27/23 20:59 1 each DAILY@2100 HALEY Administration Multivitamins 1 tab 06/24/23 09:00 06/30/23 07:46 Multivitamin Tab PO 07/24/23 08:59 1 tab QAM HALEY Administration Ondansetron HCl 4 mg 06/24/23 02:24 06/28/23 11:34 Ondansetron 4 Mg Od Tab PO 07/24/23 02:23 4 mg Q6H PRN Administration Nausea Pantoprazole Sodium 40 mg 06/24/23 09:00 06/30/23 07:46 Pantoprazole 40 Mg Tab PO 07/24/23 08:59 40 mg BID HALEY Administration Potassium Chloride 20 meq 06/24/23 09:00 06/30/23 07:46 Potassium Chloride Crtab 20 Meq Tabcr PO 07/24/23 08:59 20 meq QAM HALEY Administration Quetiapine Fumarate 25 mg 06/24/23 21:00 06/29/23 20:21 Quetiapine Fumarate 25 Mg Tablet PO 07/24/23 20:59 25 mg HS HALEY Administration Saccharomyces Boulardii 250 mg 06/24/23 09:00 06/30/23 07:45 Saccharomyces Boulardii 250 Mg Cap PO 07/24/23 08:59 250 mg BID HALEY Administration Sucralfate 1 gm 06/24/23 09:00 06/30/23 16:53 Sucralfate 1 Gm/10 Ml Udc PO 07/24/23 08:59 1 gm QID HALEY Administration Venlafaxine HCl 75 mg 06/24/23 21:00 06/29/23 20:21 Venlafaxine Hcl Xr 75 Mg Capxr PO 07/24/23 20:59 75 mg QPM HALEY Administration Venlafaxine HCl 150 mg 06/24/23 21:00 06/29/23 20:21 Venlafaxine Hcl Xr 150 Mg Capxr PO 07/24/23 20:59 150 mg QPM HALEY Administration Vitamin D 2,000 units 06/24/23 09:00 06/30/23 07:45 Cholecalciferol 1,000 Units 25 Mcg Tab PO 07/24/23 08:59 2,000 units DAILY HALEY Administration
[2023-06-30] MEDS: QUEtiapine FUMARATE 25 MG TABLET PO SCH (19:42)
[2023-06-30] MEDS: VENLAFAXINE HCL XR 150 MG CAPXR PO SCH (19:43)
[2023-06-30] MEDS: VENLAFAXINE HCL XR 75 MG CAPXR PO SCH (19:43)
[2023-06-30] MEDS: IBUPROFEN 600 MG TAB PO PRN (19:45)
[2023-07-01] MEDS: LACTATED RINGER'S 1,000 ML IV SCH (03:30)
[2023-07-01] MEDS: FLUCYTOSINE 500 MG CAP PO SCH ×3 (05:08→18:05)
--- NOTE | 2023-07-01 07:43 | Hospitalist Progress Note ---
Date of Service July 01, 2023 Assessment & Plan (1) Hallucinations: Plan: Pt is 63 yo female with PMH of cryptococcal meningitis w/ associated auditory/visual hallucinations, cirrhosis, DM2, afib, hypomagnesemia, hypokalemia, HLD, peripheral edema, anxiety, depression, gastritis, and HTN presenting with an increase in her hallucinations. History of cryptococcal meningitis (dx 02/2022) - pt presenting with increase in auditory/visual hallucinations - ID consulted; recommended brain MRI which showed increased inflammation of her cerebellum - LP performed 06/30; CSF studies as per chart - CSF meningitis/encephalitis neg, serum cryptococcal Ag neg - bacterial blood cx neg; fungal blood cx neg - began liposomal amphotericin (3mg/kg daily) and flucytosine (25 mg/kg QID) 06/25; continue dosing regimen as Cr allows - discontinue home fluconazole; outpatient [facility] will start prior auth for outpatient voriconazole (switch from fluconazole for exterminator tx d/t ?tx failure and intolerance) - [facility] no longer able to follow pt inpatient; ID connect will resume inpatient care- appreciate recommendations Drug-induced ALBINA - when Cr increases- start LR 100mL/hr; if Cr improves- hold fluids - continue to monitor Insulin dependent diabetes mellitus - during previous hospitalization, basal insulin was decreased d/t hypoglycemic episodes - decreased basal insulin to 10 units BID in the setting of hypoglycemia this AM - continue SSI: goal 100-140, CF 50, CR 25 Anxiety - continue home venlafaxine 150mg daily - pt would benefit from outpatient counseling Paroxysmal afib - continue metoprolol, resume eliquis tomorrow Cirrhosis - stable; no acute decompensation Electrolyte derangements - hypomagnesemia and hypokalemia; continue supplementation Gastritis - continue pantoprazole and sucralfate Code status: full Diet: carb consistent DVT ppx: eliquis Dispo: med/surg (2) Cryptococcal meningitis: (3) Uncontrolled type 2 diabetes mellitus with hyperglycemia, with long-term current use of insulin: (4) Anxiety: (5) Paroxysmal A-fib: (6) Cirrhosis of liver: (7) Hypomagnesemia: (8) Hypokalemia: (9) Gastritis: (10) Hypertension: Admission and Anticipated Discharge Date Admission Date: June 24, 2023 Supervising Physician Co-Signing Physician Notes I personally examined the patient and verified fish points of history and exam, discussed case, and agree with decision making and plan documented by Dr. Ryder. Patient was tearful and confused on exam today. 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 Consider psychiatric evaluation. Patient denied pain or concern. Awaiting CSF cultures and appreciate ID input. Subjective Pt feeling well this AM. No new concerns. Review of Systems Review of Systems: As per HPI Physical Exam Physical Exam: Constitutional: well appearing, no acute distress HEENT: normocephalic, no conjunctival injection CV: clinically well perfused, no LE edema Respiratory: no increased work of breathing MSK: no gross deformities noted Skin: warm, dry, no rashes Neuro: alert, oriented, no FND noted Results & Data Results & Data Vital Signs (Past 12 Hours) Vital Signs Temp Pulse Resp BP Pulse Ox O2 Del Method 07/01/23 06:42 36.7 C 61 18 108/65 97 Room Air 07/01/23 06:13 36.6 C 66 16 107/67 95 Room Air 06/30/23 20:26 37.0 C 64 18 123/74 97 Room Air 06/30/23 19:48 36.7 C 68 16 117/70 96 Room Air Resident Activity Tracking Resident Involvement: Resident Care Provided Care Provided: Adult Hospital Medicine (10) Hypertension Hypertension type: essential hypertension Qualified Code(s): I10 - Essential (primary) hypertension
[2023-07-01] MEDS: MAGNESIUM CHLORIDE W/CALCIUM 64MG DELAYED REL TAB PO SCH ×2 (08:06→20:00)
[2023-07-01] MEDS: PANTOprazole 40 MG TAB PO SCH ×2 (08:06→20:00)
[2023-07-01] MEDS: MECLIZINE 12.5 MG TAB PO SCH (08:06)
[2023-07-01] MEDS: CHOLECALCIFEROL 1,000 UNITS 25 MCG TAB PO SCH (08:06)
[2023-07-01] MEDS: SACCHAROMYCES BOULARDII 250 MG CAP PO SCH ×2 (08:06→20:01)
[2023-07-01] MEDS: FLUTICASONE PROPIONATE NA SPR 16 GM BTL SCH (08:06)
[2023-07-01] MEDS: MULTIVITAMIN TAB PO SCH (08:06)
[2023-07-01] MEDS: POTASSIUM CHLORIDE CRTAB 20 MEQ TABCR PO SCH (08:06)
[2023-07-01] MEDS: METOPROLOL SUCC 25MG EXT REL TAB PO SCH ×2 (08:06→20:01)
[2023-07-01] MEDS: INSULIN ASPART PER UNIT CHARGE SC SCH ×4 (08:07→20:59)
[2023-07-01] MEDS: SUCRALFATE 1 GM/10 ML UDC PO SCH ×4 (08:08→20:03)
[2023-07-01] MEDS: LANTUS PER UNIT CHARGE SQ SCH ×2 (08:15→20:59)
[2023-07-01 09:20] LABS: Hematocrit (blood only) 22.7 % (37.0-47.0); Hemoglobin 7.7 g/dl (12.0-16.0); Mean Corpuscular Hemoglobin 27.6 pg (25.0-34.0); Mean Corpuscular Hgb Conc 33.9 g/dL (32.0-36.0); Mean Corpuscular Volume 81.4 fL (80.0-100.0); Mean Platelet Volume 11.5 fL (9.4-12.4); Platelet Count 128 K/uL (130-400); RDW Coefficient of Variation 15.2 % (11.5-14.5); RDW Standard Deviation 44.7 fL (36.4-46.3); Red Blood Count 2.79 M/uL (4.20-5.40); White Blood Count 4.56 K/ul (4.8-10.8)
[2023-07-01 09:42] LABS: BUN Creatinine Ratio 30.1 (10-20); Bilirubin,Total 0.4 mg/dl (0.2-1.0); Calcium 8.6 mg/dl (8.6-10.3); Creatinine Clr Calc Pharmacy 43.4 ml/min; Est GFR (African American) 59.5 ml/min; Est GFR (Non-African American) 51.3 ml/min; Potassium 3.5 mmol/L (3.5-5.1)
[2023-07-01] MEDS: IBUPROFEN 600 MG TAB PO PRN (11:08)
--- NOTE | 2023-07-01 11:28 | Infectious Disease Progress Nt ---
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 ID consulted for evaluation. Review of Dr. Huggins of [place] note from 12/02/22 states she initially diagnosed with cryptococcal meningitis in 02/2022 at [facility] and transferred to [facility]. She was treated with liposomal amphotericin and flucytosine through 03/16/22 followed by fluconazole 400mg daily for 8 weeks through 05/12/23. The she was changed to 200mg dailyon 05/13/22 for anticipated 1 year of therapy but in 07/17 dose was increased to 400mg daily d/t vertigo and hallucinations. There was di scussion at that time to change to isavuconazole because of drug interaction. She was admitted to [facility] in 05/2023 for weakness. ID was not consulted during that time. Her weakness was thought to be secondary to episodic diarrhea from fluconazole. For her afib she was changed from warfarin to Eliquis. She was also diagnosed with UTI, Ucx grew mssa and ecoli. She received Cefdinir On 06/23 she returned to ED with her son as he was concerned for increasing hallucinations. He reported that since the patient was discharged she has been having increased hallucinations talking to people who are not there including pictures on her cell phone thinking they are real people. Her VSS, CMP normal, aphos slightly increased to 121. UA shows 10-30 wbcs UC + lactobacillus On initial exam, she appeared comfortable She denied hearing voices or seeing people but upon further discussion admitted that a picture spoke to her awhile ago. No FLOWERS, visual changes, neck stiffness. No fevers/chills/diarrhea/ra sh/sob/cp PRIOR Pertinent labs HIV NR 03/02/22, Serum Crypto antigen positive 07/07/22, CSF cryto negative 07/07/22 05/31/23 Ucx>100,000 cfu/mL MSSA, 80,000 Ecoli panS 06/15/23 Ucx probable skin seda 06/15 Bcx sterile Micro this admission 10/5 CSF cx P 10/5 csf fungal cx P 10 M/E panel negative, with C neoformans not detected by pcr 06/25 Serum Crypto antigen negative 06/25 BCx NGTD 06/23 Ucx lactobcillus sp antifungal fluc on admission - 06/25 amph B flucytosine #Cryptococcal meningitis s/p induction and consolidation now on maintenance (HIV negative) #Visual/auditory hallucinations #Afib Discussion: She does have a history hallucinations which is unclear if this preceded her cryptococcal diagnosis. [facility] ( Dr Ray ) attempted to call her ID doctor and left message on 06/24. Dr Ray spoke with Primary who recommend MRI. 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 Findings likely correlate with the reported history of meningitis. She is followed by [facility] ID outpatient. It looks like the [facility] group made recs this weekend on 06/25 ( Dr Huggins) after viewing MRI head results to begin liposomal amphotericin B and flucytosine ; with plan to start prior auth for outpatient voriconazole ( d/t ? tx failure and intolerance with fluconazole) with plan for LP 06/30 TSELLA giordano initially saw pt 06/24 but signed off 06/27 as STELLA bhardwaj requested Consult and knew pt longitudinally. Documentation per Dr Huggins 06/30 It appears covering ID [facility] attending, Dr Roxanne Becker will not be seeing patient. STELLA giordano reconsulted , I called [facility] group to clarify their plan for this patient. I discussed with covering ID fellow (Dr Gustafson- fellow polymerization helper) . Per his conversation, with Dr Becker and Bhavna they will not be seeing pt at [facility] and asked ID connect to continue to follow inpatient. LP done today with 0 and 1 WBC. crypto ag pending. CSF fungal cx P, Serum crypto ag not detected CSF crypto PCR not detected 07/01 denies headache, feels better. I called and discussed case with her ID provider Dr Huggins. Agree to continue Liposoma Amph B/flucyto pending CSF crypto ag and fungal cx results. If negative, plan to put back on fluconazole ( likely high dose). Recommend: FU csf crypto ag and fungal cx. Continue Liposomal amph b and flucytosine. ID will continue to follow. Eliza Jameson MD, MPH Infectious Disease [facility], ID Division Call [phone] with questions Admission and Anticipated Discharge Date Admission Date: June 24, 2023 Subjective Subsequent visit was provided via telemedicine using two-way real-time interactive telecommunication between the patient and the telemedicine provider. For the duration of the visit, the provider was performing the assessment from a different facility than the patient. This includesuse of bluetooth stethoscope forauscultationperformed by the telepresenter that the telemedicine provider can hear if described in the physical exam. Gettering Operator contact information: Please call [facility] Call Center . (Phone Number For Physician Use Only) After establishing a telemedicine visit, patient was: Patient was verified with two unique identifiers and Patient/authorized rep acknowledged consent and understanding Time Spent with Patient: Subsequent => 35 min No headache today. Denies vision change or retrorbital pressure. CSF fungal and crypto ag pending Physical Exam Physical Exam: NAD, comfortable, sitting in chair Anicteric sclera, supple neck, no meningmus No increased work of breathing AAO*3 No rash Results & Data Vital Signs (Past 12 Hours) Vital Signs Temp Pulse Resp BP Pulse Ox O2 Del Method 07/01/23 06:42 36.7 C 61 18 108/65 97 Room Air 07/01/23 06:13 36.6 C 66 16 107/67 95 Room Air Laboratory Results Short CBC 07/01/23 Range/Units 08:53 WBC 4.56 L (4.8-10.8) K/ul Hgb 7.7 L (12.0-16.0) g/dl Hct 22.7 L (37.0-47.0) % Plt Count 128 L (130-400) K/uL BMP 07/01/23 08:53 Sodium 140 Potassium 3.5 Chloride 109 H Carbon Dioxide 24 BUN 34 H Creatinine 1.13 Glucose 123 H Calcium 8.6 Liver Function 07/01/23 Range/Units 08:53 Total Bilirubin 0.4 (0.2-1.0) mg/dl AST 39 (13-39) U/L ALT 20 (7-52) U/L Alkaline Phosphatase 98 (34-104) U/L Diagnostic Findings Microbiology 06/30/23 09:41 Cerebral Spinal Fluid Acid Fast Bacilli Smear - Final 06/25/23 17:04 Blood Aerobic Blood Culture - Final No growth in Aerobic bottle after 5 days. 06/25/23 17:04 Blood Anaerobic Blood Culture - Final No growth in Anaerobic bottle after 5 days. 06/25/23 17:15 Blood Aerobic Blood Culture - Final No growth in Aerobic bottle after 5 days. 06/25/23 17:15 Blood Anaerobic Blood Culture - Final No growth in Anaerobic bottle after 5 days. 06/30/23 09:41 Cerebral Spinal Fluid Gram Stain - Final 06/25/23 17:04 Blood Fungal Smear - Final 06/25/23 17:04 Blood Fungal Culture - Preliminary No yeast or fungus isolated - Report 1, Additional Report to Follow. 06/23/23 23:20 Urine,Clean Catch Urine Culture - Final Lactobacillus species Medications Administered Home Medications Medication Instructions Recorded Confirmed Last Taken multivitamin 1 tab PO QAM 09/07/19 06/23/23 10/25/22 Contour Next Test Strips (blood #300 ea 12/29/20 06/23/23 Unknown sugar diagnostic) insulin aspart U-100 100 unit/mL See Rx Instructions subcut TIDM 06/29/22 06/23/23 Unknown (3 mL) subcutaneous pen fluconazole 200 mg tablet 400 mg PO DAILY 11/05/22 06/23/23 11/09/22 05:00 cholecalciferol (vitamin D3) 50 2,000 unit PO DAILY #90 caps 02/10/23 06/23/23 Unknown mcg (2,000 unit) capsule cetirizine 10 mg capsule (Zyrtec) 10 mg PO DAILY allergy symptoms 02/25/23 06/23/23 Unknown #90 caps betamethasone dipropionate 0.05 % 1 applic topical TID PRN skin 04/08/23 06/23/23 Unknown lotion irritation #60 mL venlafaxine 150 mg 150 mg PO QPM #1 cap 04/14/23 06/23/23 11/08/22 capsule,extended release 24 hr (Effexor XR) diphenhydramine HCl 25 mg capsule 25 mg PO TID PRN Allergy Symptoms 04/22/23 06/23/23 Unknown (Allergy (diphenhydramine)) potassium chloride 20 mEq 20 meq PO QAM #90 tabs 04/22/23 06/23/23 Unknown tablet,extended release quetiapine 25 mg tablet 25 mg PO HS #30 tabs 05/16/23 06/23/23 Unknown fluticasone propionate 50 1 spray intranasal DAILY #16 grams 05/20/23 06/23/23 Unknown mcg/actuation nasal spray,suspension (Flonase Allergy Relief) Saccharomyces boulardii 250 mg 250 mg PO BID #20 caps 05/31/23 06/23/23 Unknown capsule (Florastor) pantoprazole 40 mg tablet,delayed 40 mg PO BID #180 tabs 06/01/23 06/23/23 Unknown release sucralfate 100 mg/mL oral 10 ml PO QID #420 mL 06/14/23 06/23/23 Unknown suspension (Carafate) promethazine 12.5 mg tablet 12.5 mg PO TID PRN nausea and 06/15/23 06/23/23 Unknown vomiting #30 tabs apixaban 5 mg tablet (Eliquis) 5 mg PO BID #60 tabs 06/21/23 06/23/23 Unknown furosemide 20 mg tablet 20 mg PO QAM PRN volume overload 06/21/23 06/23/23 11/08/22 or weight gain #30 tabs insulin glargine 100 unit/mL (3 15 unit (0.15 mL) subcut AMPM #12 06/21/23 06/23/23 Unknown mL) subcutaneous pen (Lantus mL Solostar U-100 Insulin) magnesium chloride 64 mg 64 mg PO BID #60 tabs 06/21/23 06/23/23 Unknown (magnesium chloride) tablet,delayed release (Mag 64) metoprolol succinate 25 mg 25 mg PO BID #60 tabs 06/21/23 06/23/23 Unknown tablet,extended release 24 hr venlafaxine 75 mg capsule,extended 75 mg PO QPM #30 caps 06/21/23 06/23/23 Unknown release 24 hr meclizine 12.5 mg tablet 12.5 mg PO QAM #30 tabs 06/23/23 06/23/23 Unknown Active Medications Generic Name Dose Route Start Last Admin Trade Name Freq PRN Reason Stop Dose Admin Apixaban 5 mg 06/24/23 09:00 06/26/23 22:27 Apixaban 5 Mg Tablet PO 07/24/23 08:59 5 mg BID HALEY Administration Flucytosine 1,500 mg 07/01/23 12:00 07/01/23 11:08 Flucytosine 500 Mg Cap PO 07/05/23 23:59 1,500 mg Q6 HALEY Administration Fluticasone Propionate 1 sprays 06/24/23 09:00 07/01/23 08:06 Fluticasone Propionate Na Spr 16 Gm Btl NA 07/24/23 08:59 1 sprays DAILY HALEY Administration Amphotericin B 200 mg/ 200 mls @ 125 mls/hr 06/25/23 14:00 06/30/23 19:39 Dextrose IV 07/05/23 13:59 Infused Q24H HALEY Infusion Lactated Ringer's 1,000 mls @ 100 mls/hr 06/26/23 10:00 07/01/23 10:12 Lr IV 07/26/23 09:59 Infused .Q10H HALEY Infusion Ibuprofen 600 mg 06/25/23 15:29 07/01/23 11:08 Ibuprofen 600 Mg Tab PO 07/25/23 15:28 600 mg Q6H PRN Administration Fever or headache Insulin Aspart 0 units 06/24/23 07:30 07/01/23 08:07 Insulin Aspart Per Unit Charge SC 07/24/23 07:29 Not Given ACHS HALEY Insulin Glargine 10 units 06/29/23 09:00 07/01/23 08:15 Lantus Per Unit Charge SQ 07/29/23 08:59 10 units BID HALEY Administration Magnesium Chloride 64 mg 06/24/23 09:00 07/01/23 08:06 Magnesium Chloride W/Calcium 64mg Delayed Rel Tab PO 07/24/23 08:59 64 mg BID HALEY Administration Meclizine HCl 12.5 mg 06/24/23 09:00 07/01/23 08:06 Meclizine 12.5 Mg Tab PO 07/24/23 08:59 12.5 mg QAM HALEY Administration Metoprolol Succinate 25 mg 06/24/23 09:00 07/01/23 08:06 Metoprolol Succ 25mg Ext Rel Tab PO 07/24/23 08:59 25 mg BID HAELY Administration Miscellaneous 15 - 30 gm 06/24/23 02:24 06/29/23 07:54 Carbohydrates For Hypoglycemia PO 07/24/23 02:23 15 gm UD PRN Administration Hypoglycemia Protocol Miscellaneous 1 each 06/27/23 21:00 06/30/23 19:53 Remove Lidoderm Patch N/A 07/27/23 20:59 Not Given DAILY@2100 [facility] Multivitamins 1 tab 06/24/23 09:00 07/01/23 08:06 Multivitamin Tab PO 07/24/23 08:59 1 tab QAM HALEY Administration Ondansetron HCl 4 mg 06/24/23 02:24 06/28/23 11:34 Ondansetron 4 Mg Od Tab PO 07/24/23 02:23 4 mg Q6H PRN Administration Nausea Pantoprazole Sodium 40 mg 06/24/23 09:00 07/01/23 08:06 Pantoprazole 40 Mg Tab PO 07/24/23 08:59 40 mg BID HALEY Administration Potassium Chloride 20 meq 06/24/23 09:00 07/01/23 08:06 Potassium Chloride Crtab 20 Meq Tabcr PO 07/24/23 08:59 20 meq QAM HALEY Administration Quetiapine Fumarate 25 mg 06/24/23 21:00 06/30/23 19:42 Quetiapine Fumarate 25 Mg Tablet PO 07/24/23 20:59 25 mg HS HALEY Administration Saccharomyces Boulardii 250 mg 06/24/23 09:00 07/01/23 08:06 Saccharomyces Boulardii 250 Mg Cap PO 07/24/23 08:59 250 mg BID HALEY Administration Sucralfate 1 gm 06/24/23 09:00 07/01/23 08:08 Sucralfate 1 Gm/10 Ml Udc PO 07/24/23 08:59 1 gm QID HALEY Administration Venlafaxine HCl 75 mg 06/24/23 21:00 06/30/23 19:43 Venlafaxine Hcl Xr 75 Mg Capxr PO 07/24/23 20:59 75 mg QPM HALEY Administration Venlafaxine HCl 150 mg 06/24/23 21:00 06/30/23 19:43 Venlafaxine Hcl Xr 150 Mg Capxr PO 07/24/23 20:59 150 mg QPM HALEY Administration Vitamin D 2,000 units 06/24/23 09:00 07/01/23 08:06 Cholecalciferol 1,000 Units 25 Mcg Tab PO 07/24/23 08:59 2,000 units DAILY HALEY Administration
[2023-07-01] MEDS: AMPHOTERICIN B LIPOSOMAL IV SCH (18:23)
[2023-07-01] MEDS: [UNRECOGNIZED DRUG - OTHER] IV SCH (18:23)
[2023-07-01] MEDS: VENLAFAXINE HCL XR 150 MG CAPXR PO SCH (20:00)
[2023-07-01] MEDS: QUEtiapine FUMARATE 25 MG TABLET PO SCH (20:00)
[2023-07-01] MEDS: VENLAFAXINE HCL XR 75 MG CAPXR PO SCH (20:00)
[2023-07-01] MEDS: APIXABAN 5 MG TABLET PO SCH (20:01)
[2023-07-02] MEDS: FLUCYTOSINE 500 MG CAP PO SCH ×5 (00:29→23:47)
[2023-07-02 06:00] LABS: Hematocrit (blood only) 22.1 % (37.0-47.0); Hemoglobin 7.6 g/dl (12.0-16.0); Mean Corpuscular Hgb Conc 34.4 g/dL (32.0-36.0); Mean Corpuscular Volume 78.6 fL (80.0-100.0); Mean Platelet Volume 11.5 fL (9.4-12.4); Platelet Count 148 K/uL (130-400); RDW Coefficient of Variation 14.8 % (11.5-14.5); RDW Standard Deviation 42.1 fL (36.4-46.3); Red Blood Count 2.81 M/uL (4.20-5.40); White Blood Count 4.47 K/ul (4.8-10.8)
[2023-07-02 06:32] LABS: BUN Creatinine Ratio 27.2 (10-20); Calcium 8.5 mg/dl (8.6-10.3); Creatinine Clr Calc Pharmacy 43.1 ml/min; Est GFR (African American) 58.9 ml/min; Est GFR (Non-African American) 50.8 ml/min; Potassium 3.1 mmol/L (3.5-5.1)
--- NOTE | 2023-07-02 07:26 | Hospitalist Progress Note ---
Date of Service July 02, 2023 Assessment & Plan (1) Hallucinations: Plan: Pt is 63 yo female with PMH of cryptococcal meningitis w/ associated auditory/visual hallucinations, cirrhosis, DM2, afib, hypomagnesemia, hypokalemia, HLD, peripheral edema, anxiety, depression, gastritis, and HTN presenting with an increase in her hallucinations. History of cryptococcal meningitis (dx 02/2022) - pt presenting with increase in auditory/visual hallucinations - ID consulted; recommended brain MRI which showed increased inflammation of her cerebellum - LP performed 06/30; CSF studies as per chart - CSF meningitis/encephalitis neg, serum cryptococcal Ag neg - Still awaiting crypto ag - bacterial blood cx neg; fungal blood cx neg - began liposomal amphotericin (3mg/kg daily) and flucytosine (25 mg/kg QID) 06/25; continue dosing regimen as Cr allows - discontinue home fluconazole; outpatient [facility] will start prior auth for outpatient voriconazole (switch from fluconazole for bed bug exterminator tx d/t ?tx failure and intolerance) - [facility] no longer able to follow pt inpatient; [facility] will resume inpatient care- appreciate recommendations Hallucinations - likely multifactorial in the setting of cryptococcal meningitis, hospital induced delirium - concern that there could also be an underlying psychiatric component; will consult psych Hypomagnesium/Hypokalemia - continue to replete as necessary - continue to trend Drug-induced ALBINA - when Cr increases- start LR 100mL/hr; if Cr improves- hold fluids - continue to monitor Insulin dependent diabetes mellitus - during previous hospitalization, basal insulin was decreased d/t hypoglycemic episodes - basal insulin to 10 units BID - continue SSI: goal 100-140, CF 50, CR 25 Anxiety - continue home venlafaxine 150mg daily Paroxysmal afib - continue metoprolol,eliquis Cirrhosis - stable; no acute decompensation Gastritis - continue pantoprazole and sucralfate Code status: full Diet: carb consistent DVT ppx: eliquis (2) Cryptococcal meningitis: (3) Uncontrolled type 2 diabetes mellitus with hyperglycemia, with long-term current use of insulin: (4) Anxiety: (5) Paroxysmal A-fib: (6) Cirrhosis of liver: (7) Hypomagnesemia: (8) Hypokalemia: (9) Gastritis: (10) Hypertension: Admission and Anticipated Discharge Date Admission Date: June 24, 2023 Supervising Physician Co-Signing Physician Notes I personally examined the patient and verified fish points of history and exam, discussed case, and agree with decision making and plan documented by Dr. Ryder. Conversation with patient and her son Dominic at beside today involving progression of hallucinations and paranoia since her meningitis infection. Son expresses concern of patient's ability to care for herself and to take her medications reliably. Psychiatry consultation placed. Continue current treatment, CSF cultures pending. Subjective Pt seen at bedside this morning. Concerns brought up by son of worsening hallucinations at home. She has been seeing animals in the house at home, which has made her quite fearful and is making difficult for her to live alone/care for herself. Review of Systems Review of Systems: As per above Physical Exam Physical Exam: Constitutional: well-appearing, no acute distress HEENT: NCAT, no conjunctival injection CV: regular rhythm, no murmur appreciated, extremities well-perfused, no LE edema Resp: CTABL, no wheezes/rales/rhonchi appreciated, no increased work of breathing MSK: no gross deformities appreciated Skin: warm, dry, no rash appreciated Neuro: alert, oriented, no focal neurologic deficit appreciated Results & Data Results & Data Vital Signs (Past 12 Hours) Vital Signs Temp Pulse Resp BP Pulse Ox O2 Del Method 07/01/23 20:00 36.9 C 65 18 126/74 98 Room Air Resident Activity Tracking Resident Involvement: Resident Care Provided Care Provided: Adult Hospital Medicine (10) Hypertension Hypertension type: essential hypertension Qualified Code(s): I10 - Essential (primary) hypertension
[2023-07-02] MEDS: INSULIN ASPART PER UNIT CHARGE SC SCH ×4 (07:58→21:18)
[2023-07-02] MEDS: SUCRALFATE 1 GM/10 ML UDC PO SCH ×4 (08:07→21:15)
[2023-07-02] MEDS: PANTOprazole 40 MG TAB PO SCH ×2 (08:08→21:15)
[2023-07-02] MEDS: FLUTICASONE PROPIONATE NA SPR 16 GM BTL SCH (08:08)
[2023-07-02] MEDS: MAGNESIUM CHLORIDE W/CALCIUM 64MG DELAYED REL TAB PO SCH ×2 (08:08→21:15)
[2023-07-02] MEDS: APIXABAN 5 MG TABLET PO SCH ×2 (08:09→21:16)
[2023-07-02] MEDS: CHOLECALCIFEROL 1,000 UNITS 25 MCG TAB PO SCH (08:09)
[2023-07-02] MEDS: MECLIZINE 12.5 MG TAB PO SCH (08:09)
[2023-07-02] MEDS: METOPROLOL SUCC 25MG EXT REL TAB PO SCH ×2 (08:09→21:16)
[2023-07-02] MEDS: SACCHAROMYCES BOULARDII 250 MG CAP PO SCH ×2 (08:09→21:16)
[2023-07-02] MEDS: POTASSIUM CHLORIDE CRTAB 20 MEQ TABCR PO SCH (08:09)
[2023-07-02] MEDS: MULTIVITAMIN TAB PO SCH (08:09)
[2023-07-02 08:16] LABS: Magnesium 1.4 mg/dl (1.7-2.4)
[2023-07-02] MEDS: LANTUS PER UNIT CHARGE SQ SCH ×2 (08:29→21:18)
[2023-07-02] MEDS ORDERED: POTASSIUM CHLORIDE CRTAB 20 MEQ TABCR PO ONE (10:55)
[2023-07-02] MEDS: MAGNESIUM SULFATE / D5W 1 GM/100 ML BAG IV SCH ×2 (11:40→13:33)
--- NOTE | 2023-07-02 15:13 | Communication Note ---
Date of Service: July 02, 2023 consult received, chart reviewed. Patient known to me from previous inpatient stay with rx for hallucinations secondary to [facility] (crypto meningitis). Patient currently with evidence of ongoing cerebellar inflammation. Consult is for hallucinations though per liaison patient and son report more general paranoia and can't recall last molina. Unclear why no longer taking Seroquel that was prescribed last stay. Also identified last stay was that patient has significant anxiety about living independently and experiences odd phenomena only in the context. At this point no acute indication to resume Seroquel this hs, cooperative on med floor, will see patient in am/complete consult within next 24 hrs.
[2023-07-02] MEDS: [UNRECOGNIZED DRUG - OTHER] IV SCH (18:07)
[2023-07-02] MEDS: AMPHOTERICIN B LIPOSOMAL IV SCH (18:07)
[2023-07-02] MEDS: VENLAFAXINE HCL XR 75 MG CAPXR PO SCH (21:15)
[2023-07-02] MEDS: VENLAFAXINE HCL XR 150 MG CAPXR PO SCH (21:16)
[2023-07-02] MEDS: QUEtiapine FUMARATE 25 MG TABLET PO SCH (21:16)
[2023-07-03] MEDS: FLUCYTOSINE 500 MG CAP PO SCH ×2 (05:59→18:07)
--- NOTE | 2023-07-03 07:40 | Hospitalist Progress Note ---
Date of Service July 03, 2023 Assessment & Plan (1) Hallucinations: Plan: Pt is 63 yo female with PMH of cryptococcal meningitis w/ associated auditory/visual hallucinations, cirrhosis, DM2, afib, hypomagnesemia, hypokalemia, HLD, peripheral edema, anxiety, depression, gastritis, and HTN presenting with an increase in her hallucinations. History of cryptococcal meningitis (dx 02/2022) - pt presenting with increase in auditory/visual hallucinations - ID consulted; recommended brain MRI which showed increased inflammation of her cerebellum - LP performed 06/30; CSF studies as per chart - CSF meningitis/encephalitis neg, serum cryptococcal Ag neg - Still awaiting crypto CSF studies - bacterial blood cx neg; fungal blood cx neg - began liposomal amphotericin (3mg/kg daily) and flucytosine (25 mg/kg QID) 06/25; continue dosing regimen as Cr allows-> flucytosine changed to q12 from q6 on 07/03. When creatine improves, should go back to q6 - discontinue home fluconazole; outpatient [facility] will start prior auth for outpatient voriconazole (switch from fluconazole for group home tx d/t ?tx failure and intolerance) - [facility] no longer able to follow pt inpatient; [facility] will resume inpatient care- appreciate recommendations Hallucinations - likely multifactorial in the setting of cryptococcal meningitis, hospital induced delirium - concern that there could also be an underlying psychiatric component - pysch consulted appreciate recommendations Hypomagnesium/Hypokalemia - continue to replete as necessary - continue to trend Drug-induced ALBINA - restarted LR 100mL/hr; if Cr improves- hold fluids - continue to monitor Insulin dependent diabetes mellitus - during previous hospitalization, basal insulin was decreased d/t hypoglycemic episodes - basal insulin to 10 units BID - continue SSI: goal 100-140, CF 50, CR 25 Anxiety - continue home venlafaxine 150mg daily Paroxysmal afib - continue metoprolol,eliquis Cirrhosis - stable; no acute decompensation Gastritis - continue pantoprazole and sucralfate Code status: full Diet: carb consistent DVT ppx: eliquis (2) Cryptococcal meningitis: (3) Uncontrolled type 2 diabetes mellitus with hyperglycemia, with long-term current use of insulin: (4) Anxiety: (5) Paroxysmal A-fib: (6) Cirrhosis of liver: (7) Hypomagnesemia: (8) Hypokalemia: (9) Gastritis: (10) Hypertension: Admission and Anticipated Discharge Date Admission Date: June 24, 2023 Supervising Physician Co-Signing Physician Notes I personally examined the patient and verified fish points of history and exam, discussed case, and agree with decision making and plan documented by Dr. Ryder. Psychiatry evaluated patient, added seroquel 12.5 mg prn for paranoid behaviors. Anticipate ID guidance on antimicrobial treatment, prelim CSF fungal culture negative, concern of nephrotoxity with rising creatinine, medications renally dosed. Subjective Pt seen at bedside this morning. Sitting up, eating breakfast. No complaints. Oriented to person and place. Review of Systems Review of Systems: As per above Physical Exam Physical Exam: Constitutional: well-appearing, no acute distress HEENT: NCAT, no conjunctival injection CV: regular rhythm, no murmur appreciated, extremities well-perfused, no LE edema Resp: CTABL, no wheezes/rales/rhonchi appreciated, no increased work of breathing MSK: no gross deformities appreciated Skin: warm, dry, no rash appreciated Neuro: alert, oriented, no focal neurologic deficit appreciated Results & Data Results & Data Vital Signs (Past 12 Hours) Vital Signs Temp Pulse Resp BP Pulse Ox O2 Del Method 07/03/23 07:05 36.7 C 59 L 18 100/61 98 Room Air 07/02/23 22:12 36.8 C 66 18 106/68 100 Room Air 07/02/23 21:26 36.7 C 67 18 111/71 98 Room Air Resident Activity Tracking Resident Involvement: Resident Care Provided Care Provided: Adult Hospital Medicine (10) Hypertension Hypertension type: essential hypertension Qualified Code(s): I10 - Essential (primary) hypertension
[2023-07-03 07:42] LABS: Basophils # (auto) 0.04 K/uL (0.00-0.20); Basophils % (auto) 0.6 %; Eosinophils # (auto) 0.19 K/uL (0.00-0.50); Hematocrit (blood only) 23.8 % (37.0-47.0); Hemoglobin 7.9 g/dl (12.0-16.0); Immature Granulocytes # (auto) 0.01 K/uL (0.01-0.20); Immature Granulocytes % (auto) 0.2 %; Lymphocytes # (auto) 1.37 K/uL (1.20-3.40); Lymphocytes % (auto) 21.3 %; Mean Corpuscular Hemoglobin 26.7 pg (25.0-34.0); Mean Corpuscular Hgb Conc 33.2 g/dL (32.0-36.0); Mean Corpuscular Volume 80.4 fL (80.0-100.0); Mean Platelet Volume 11.1 fL (9.4-12.4); Monocytes # (auto) 0.54 K/uL (0.11-0.59); Monocytes % (auto) 8.4 %; Neutrophils # (auto) 4.28 K/uL (1.40-6.50); Neutrophils % (auto) 66.5 %; Platelet Count 195 K/uL (130-400); RDW Coefficient of Variation 15.3 % (11.5-14.5); RDW Standard Deviation 44.2 fL (36.4-46.3); Red Blood Count 2.96 M/uL (4.20-5.40); White Blood Count 6.43 K/ul (4.8-10.8)
[2023-07-03 08:00] LABS: Albumin Globulin Ratio 1.4 (0.9-2); Albumin Level 3.7 gm/dl (3.4-5.0); BUN Creatinine Ratio 20.2 (10-20); Bilirubin,Total 0.4 mg/dl (0.2-1.0); Calcium 9.2 mg/dl (8.6-10.3); Creatinine Clr Calc Pharmacy 24.8 ml/min; Est GFR (African American) 30.2 ml/min; Globulin 2.7 gm/dl (2.5-4.0); Potassium 3.7 mmol/L (3.5-5.1); Total Protein 6.4 gm/dl (6.0-8.3)
[2023-07-03 08:05] LABS: Ovalocytes 1+; Polychromasia 1+
[2023-07-03] MEDS: METOPROLOL SUCC 25MG EXT REL TAB PO SCH ×2 (08:23→20:01)
[2023-07-03] MEDS: SUCRALFATE 1 GM/10 ML UDC PO SCH ×4 (08:24→19:56)
[2023-07-03] MEDS: MAGNESIUM CHLORIDE W/CALCIUM 64MG DELAYED REL TAB PO SCH ×2 (08:24→20:05)
[2023-07-03] MEDS: PANTOprazole 40 MG TAB PO SCH ×2 (08:24→20:01)
[2023-07-03] MEDS: MECLIZINE 12.5 MG TAB PO SCH (08:24)
[2023-07-03] MEDS: SACCHAROMYCES BOULARDII 250 MG CAP PO SCH ×2 (08:24→20:01)
[2023-07-03] MEDS: POTASSIUM CHLORIDE CRTAB 20 MEQ TABCR PO SCH (08:24)
[2023-07-03] MEDS: APIXABAN 5 MG TABLET PO SCH ×2 (08:24→20:01)
[2023-07-03] MEDS: MULTIVITAMIN TAB PO SCH (08:24)
[2023-07-03] MEDS: CHOLECALCIFEROL 1,000 UNITS 25 MCG TAB PO SCH (08:24)
[2023-07-03] MEDS: FLUTICASONE PROPIONATE NA SPR 16 GM BTL SCH (08:25)
[2023-07-03] MEDS: LANTUS PER UNIT CHARGE SQ SCH ×2 (08:41→20:03)
[2023-07-03] MEDS: INSULIN ASPART PER UNIT CHARGE SC SCH ×4 (08:41→20:02)
--- NOTE | 2023-07-03 11:48 | Psychiatric Consultation ---
Date of Consultation July 03, 2023 Impression / Recommendations Impression 63 yo female with hx of hallucinations, she is not currently hallucinating or delusional and responds well to hospital routines/care (ie no agitation or bizzarre behaviors). I'm concerned that she seems to have significantly more cognitive difficulties related to independent living skills associated with her neurologic condition or other cognitive process. Lewy body dementia can sometimes present with vivid molina early on out of proportion to level of dementia. I would defer to neurology re: need for neuropsychological testing. Overall, I spent a total of 58 minutes with this case, including review of c nevarez/records, direct evaluation of the patient, coordination with nursing, and documentation. 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 Known to me from stay on 3S in March. 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 Consult was for "hallucinations." Chief Complaint change in personality and mental status History of Present Illness Patient is currently denying hallucinations. She states she gets anxious and "probably a little paranoid" at night at home and then mind can "play tricks". Although she has described rather vivid hallucinations in the past, she and her son mainly seem to be indicating periods of inability to differentiate reality, ongoing issues with memory and structure to day, etc. Of note she did not hallcuinate in the structure of our unit even prior to initiation of low dose Seroquel and ate and slept well though she did not have to initiate her schedule/meal prep/etc. Both of her kids were involved in a family meeting and although Sudha seemed to be seeking support, her personality was such that she did not like being told what to do, particularly around her diet. It seems she did well for a period of time on discharge but refused to continue to see her outpatient psychiatrist at the time (as telepsych and felt her Haldol had been mismanaged) and/or forgot. Her Seroquel was not refilled. Of note patient was seen in ED 05/20, 05/30, 06/15-06/21, 06/24 to [facility] for various complaints, mainly hallucinations (though very nonspecific), dizziness, and confusion. Her past psych hx is mainly remarkable for admission to , no prior inpatient psych. Previous rx with Haldol, Remeron, Effexor, Seroquel. Was restarted on Seroquel on admission. Allergies Allergy/AdvReac Type Severity Reaction Status Date / Time Penicillins Allergy Intermediate Hives Verified 06/23/23 20:51 atorvastatin Allergy Unknown CAN'T Verified 06/23/23 20:51 REMEMBER/? RAISED LIVER LEVELS gemfibrozil [From Lopid] Allergy Unknown CAN'T Verified 06/23/23 20:51 REMEMBER/ ? RAISED LIVER LEVELS rosuvastatin AdvReac Intermediate Muscle Pain Verified 06/23/23 20:51 acetaminophen [From Tylenol] AdvReac Unknown CAN NOT Verified 06/23/23 20:51 TAKE D/T LIVER ISSUES ibuprofen AdvReac Unknown liver Verified 06/23/23 20:51 issues Home Medications Medication Instructions Recorded Confirmed Type multivitamin 1 tab PO QAM 09/07/19 06/23/23 History Contour Next Test Strips (blood #300 ea 12/29/20 06/23/23 Rx sugar diagnostic) insulin aspart U-100 100 unit/mL See Rx Instructions subcut TIDM 06/29/22 06/23/23 History (3 mL) subcutaneous pen fluconazole 200 mg tablet 400 mg PO DAILY 11/05/22 06/23/23 History cholecalciferol (vitamin D3) 50 2,000 unit PO DAILY #90 caps 02/10/23 06/23/23 Rx mcg (2,000 unit) capsule cetirizine 10 mg capsule (Zyrtec) 10 mg PO DAILY allergy symptoms 02/25/23 06/23/23 Rx #90 caps betamethasone dipropionate 0.05 % 1 applic topical TID PRN skin 04/08/23 06/23/23 Rx lotion irritation #60 mL venlafaxine 150 mg 150 mg PO QPM #1 cap 04/14/23 06/23/23 Rx capsule,extended release 24 hr (Effexor XR) diphenhydramine HCl 25 mg capsule 25 mg PO TID PRN Allergy Symptoms 04/22/23 06/23/23 History (Allergy (diphenhydramine)) potassium chloride 20 mEq 20 meq PO QAM #90 tabs 04/22/23 06/23/23 Rx tablet,extended release quetiapine 25 mg tablet 25 mg PO HS #30 tabs 05/16/23 06/23/23 Rx fluticasone propionate 50 1 spray intranasal DAILY #16 grams 05/20/23 06/23/23 Rx mcg/actuation nasal spray,suspension (Flonase Allergy Relief) Saccharomyces boulardii 250 mg 250 mg PO BID #20 caps 05/31/23 06/23/23 Rx capsule (Florastor) pantoprazole 40 mg tablet,delayed 40 mg PO BID #180 tabs 06/01/23 06/23/23 Rx release sucralfate 100 mg/mL oral 10 ml PO QID #420 mL 06/14/23 06/23/23 Rx suspension (Carafate) promethazine 12.5 mg tablet 12.5 mg PO TID PRN nausea and 06/15/23 06/23/23 Rx vomiting #30 tabs apixaban 5 mg tablet (Eliquis) 5 mg PO BID #60 tabs 06/21/23 06/23/23 Rx furosemide 20 mg tablet 20 mg PO QAM PRN volume overload 06/21/23 06/23/23 Rx or weight gain #30 tabs insulin glargine 100 unit/mL (3 15 unit (0.15 mL) subcut AMPM #12 06/21/23 06/23/23 Rx mL) subcutaneous pen (Lantus mL Solostar U-100 Insulin) magnesium chloride 64 mg 64 mg PO BID #60 tabs 06/21/23 06/23/23 Rx (magnesium chloride) tablet,delayed release (Mag 64) metoprolol succinate 25 mg 25 mg PO BID #60 tabs 06/21/23 06/23/23 Rx tablet,extended release 24 hr venlafaxine 75 mg capsule,extended 75 mg PO QPM #30 caps 06/21/23 06/23/23 Rx release 24 hr meclizine 12.5 mg tablet 12.5 mg PO QAM #30 tabs 06/23/23 06/23/23 Rx Patient History Medical History Acid reflux Anxiety Cirrhosis of liver FOLLOWS W/ [facility] Stable currently 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[facility] for 4 mon summer [address] GONZALEZ & INFECTIOUS DISEASE DR Maldonado Diabetes mellitus, type 2 IDDM Glucose fluctuates - since Covid in December 2020 On insulin pump Follows with endocrinology Dupuytren contracture Dyslipidemia History of anesthesia reaction with more recent surgeries seems it is harder to wake up History of atrial fibrillation dx while hospitalized summer 2021 History of COVID-12 January 2021 > [facility], not hospitalized, fever, ear pain- did give infusion in ER No current issues History of DVT (deep vein thrombosis) dx during hospitalization summer 2021 History of gastric ulcer summer 2021 History of pulmonary embolus (PE) dx during hospitalization summer 2021 Hydronephrosis due to obstruction of ureter Hypertension IBS (irritable bowel syndrome) Stable Insomnia Kidney stones FOLLOWS WITH DR FUCHS No current issues - monitoring currently Vertigo Surgical History History of cystoscopy WITH STENTS AND STONE BASKETING History of endoscopy History of lithotripsy History of tonsillectomy and adenoidectomy History of total hip arthroplasty LEFT Hx laparoscopic cholecystectomy Hx of colonoscopy Hx of left cataract extraction Hx of surgical amputation of finger left pinky Hx of total hysterectomy GERALD WITH BSO Hx of tubal ligation Hx of wisdom tooth extraction Status post Dupuytren's fasciectomy Family History Father , age 75 Family history of diabetes mellitus Coronary heart disease Brother Family history of diabetes mellitus Mother , age 67 Family history of diabetes mellitus Heart disease Hypertension Myocardial infarction Grandfather (Paternal) Family history of diabetes mellitus Grandmother (Paternal) Family history of diabetes mellitus Denies family history of Ovarian cancer Prostate cancer Breast cancer Colorectal cancer Social History Smoking Status: Former smoker Tobacco Type: Cigarettes Second Hand Exposure: No; Do You Dip or Chew Tobacco: No; Hx Alcohol Use: No Hx Substance Use: No Preferred Language: Czech Communication Ability: Effective Visual Impairment: No Limitations Hearing Ability: Normal Candlemaker Required: No Beliefs That Will Affect Care: None marital status: Current Living Situation: Alone Current Living Situation Comment: alone current occupational status: employed and disabled current occupation: [employer]-pt does have disability for diabetes- insurance helps How many Children do You have: 2 Feels Safe at Home: Yes Childhood Exposure to Second-Hand Smoke: No Diet: diabetic caffeine: Yes during the past year weight has: increased > 10 lbs Dental Care, Regularly: No Physical Activity Frequency: Does not Exercise Seatbelt Use: always Sunscreen Use: Yes Gender Identity: Female Assistive Devices: None Physical Exam Psychiatric: Orientation: alert and oriented x 3 Apperance: appropriately dressed and appropriately groomed Eye Contact: good eye contact Motor Behavior: no abnormal motor movements Speech: + abnormal rate/rhythm/volume of speech (very soft and attributes to her crypto) Affect: euthymic affect Mood: + anxious mood Thought Process: + circumstantial thought process Thought Content: reality based without delusions Suicidal Thoughts: denies suicidal thoughts Homicidal Thoughts: denies homicidal thoughts Hallucinations: no auditory hallucinations and no visual hallucinations Cognition: attention grossly intact and language grossly intact Estimated Intelligence: consistent with education level Insight: + limited insight Vital Signs (Past 24 Hours): Last Vital Signs Temp 36.7 C 07/03/23 07:05 Pulse 59 L 07/03/23 07:05 Resp 18 07/03/23 07:05 BP 100/61 07/03/23 07:05 Pulse Ox 98 07/03/23 07:05 O2 Del Method Room Air 07/03/23 07:05 Review of Systems All systems reviewed & are unremarkable except as noted in HPI & below Results & Data (PSY) Laboratory Results 07/03/23 07/03/23 07/03/23 Range/Units 11:45 07:48 06:22 WBC 6.43 (4.8-10.8) K/ul RBC 2.96 L (4.20-5.40) M/uL Hgb 7.9 L (12.0-16.0) g/dl Hct 23.8 L (37.0-47.0) % MCV 80.4 (80.0-100.0) fL MCH 26.7 (25.0-34.0) pg MCHC 33.2 (32.0-36.0) g/dL RDW Std Deviation 44.2 (36.4-46.3) fL RDW Coeff of Jun 15.3 H (11.5-14.5) % Plt Count 195 (130-400) K/uL MPV 11.1 (9.4-12.4) fL Immature Gran % (Auto) 0.2 % Neut % (Auto) 66.5 % Lymph % (Auto) 21.3 % [place] % (Auto) 8.4 % Eos % (Auto) 3.0 % Baso % (Auto) 0.6 % Neut # (Auto) 4.28 (1.40-6.50) K/uL Lymph # (Auto) 1.37 (1.20-3.40) K/uL [place] # (Auto) 0.54 (0.11-0.59) K/uL Eos # (Auto) 0.19 (0.00-0.50) K/uL Baso # (Auto) 0.04 (0.00-0.20) K/uL Immature Gran # (Auto) 0.01 (0.01-0.20) K/uL Polychromasia 1+ Ovalocytes 1+ Sodium (136-145) mmol/L Potassium (3.5-5.1) mmol/L Chloride (98-107) mmol/L Carbon Dioxide (21-32) mmol/L Anion Gap (3-11) BUN (6-23) mg/dl Creatinine (0.6-1.2) mg/dl Est Cr Clr Drug Dosing ml/min Est GFR ( Amer) ml/min Est GFR (Non-Af Amer) ml/min BUN/Creatinine Ratio (10-20) Glucose (70-99(Fasting)) mg/dl POC Glucose 172 H 173 H (70-99) mg/dl Calcium (8.6-10.3) mg/dl Magnesium (1.7-2.4) mg/dl Total Bilirubin (0.2-1.0) mg/dl AST (13-39) U/L ALT (7-52) U/L Alkaline Phosphatase (34-104) U/L Total Protein (6.0-8.3) gm/dl Albumin (3.4-5.0) gm/dl Globulin (2.5-4.0) gm/dl Albumin/Globulin Ratio (0.9-2) 07/03/23 07/02/23 07/02/23 Range/Units 06:22 20:40 16:49 WBC (4.8-10.8) K/ul RBC (4.20-5.40) M/uL Hgb (12.0-16.0) g/dl Hct (37.0-47.0) % MCV (80.0-100.0) fL MCH (25.0-34.0) pg MCHC (32.0-36.0) g/dL RDW Std Deviation (36.4-46.3) fL RDW Coeff of Jun (11.5-14.5) % Plt Count (130-400) K/uL MPV (9.4-12.4) fL Immature Gran % (Auto) % Neut % (Auto) % Lymph % (Auto) % [place] % (Auto) % Eos % (Auto) % Baso % (Auto) % Neut # (Auto) (1.40-6.50) K/uL Lymph # (Auto) (1.20-3.40) K/uL [place] # (Auto) (0.11-0.59) K/uL Eos # (Auto) (0.00-0.50) K/uL Baso # (Auto) (0.00-0.20) K/uL Immature Gran # (Auto) (0.01-0.20) K/uL Polychromasia Ovalocytes Sodium 139 (136-145) mmol/L Potassium 3.7 (3.5-5.1) mmol/L Chloride 109 H (98-107) mmol/L Carbon Dioxide 22 (21-32) mmol/L Anion Gap 8 (3-11) BUN 40 H (6-23) mg/dl Creatinine 1.98 H D (0.6-1.2) mg/dl Est Cr Clr Drug Dosing 24.8 ml/min Est GFR ( Amer) 30.2 ml/min Est GFR (Non-Af Amer) 26.0 ml/min BUN/Creatinine Ratio 20.2 H (10-20) Glucose 176 H (70-99(Fasting)) mg/dl POC Glucose 167 H 164 H (70-99) mg/dl Calcium 9.2 (8.6-10.3) mg/dl Magnesium 2.0 (1.7-2.4) mg/dl Total Bilirubin 0.4 (0.2-1.0) mg/dl AST 39 (13-39) U/L ALT 22 (7-52) U/L Alkaline Phosphatase 112 H (34-104) U/L Total Protein 6.4 (6.0-8.3) gm/dl Albumin 3.7 (3.4-5.0) gm/dl Globulin 2.7 (2.5-4.0) gm/dl Albumin/Globulin Ratio 1.4 (0.9-2) 07/02/23 07/02/23 Range/Units 14:55 11:58 WBC (4.8-10.8) K/ul RBC (4.20-5.40) M/uL Hgb (12.0-16.0) g/dl Hct (37.0-47.0) % MCV (80.0-100.0) fL MCH (25.0-34.0) pg MCHC (32.0-36.0) g/dL RDW Std Deviation (36.4-46.3) fL RDW Coeff of Jun (11.5-14.5) % Plt Count (130-400) K/uL MPV (9.4-12.4) fL Immature Gran % (Auto) % Neut % (Auto) % Lymph % (Auto) % [place] % (Auto) % Eos % (Auto) % Baso % (Auto) % Neut # (Auto) (1.40-6.50) K/uL Lymph # (Auto) (1.20-3.40) K/uL [place] # (Auto) (0.11-0.59) K/uL Eos # (Auto) (0.00-0.50) K/uL Baso # (Auto) (0.00-0.20) K/uL Immature Gran # (Auto) (0.01-0.20) K/uL Polychromasia Ovalocytes Sodium (136-145) mmol/L Potassium (3.5-5.1) mmol/L Chloride (98-107) mmol/L Carbon Dioxide (21-32) mmol/L Anion Gap (3-11) BUN (6-23) mg/dl Creatinine (0.6-1.2) mg/dl Est Cr Clr Drug Dosing ml/min Est GFR ( Amer) ml/min Est GFR (Non-Af Amer) ml/min BUN/Creatinine Ratio (10-20) Glucose (70-99(Fasting)) mg/dl POC Glucose 186 H 135 H (70-99) mg/dl Calcium (8.6-10.3) mg/dl Magnesium (1.7-2.4) mg/dl Total Bilirubin (0.2-1.0) mg/dl AST (13-39) U/L ALT (7-52) U/L Alkaline Phosphatase (34-104) U/L Total Protein (6.0-8.3) gm/dl Albumin (3.4-5.0) gm/dl Globulin (2.5-4.0) gm/dl Albumin/Globulin Ratio (0.9-2) Diagnostic Findings hx of EEG in March, updated head imaging noted, also reviewed labs for B12 and folate within 6 months (nl) Medications Administered Apixaban (Apixaban 5 Mg Tablet) 5 mg PO BID HALEY Stop: 07/24/23 08:59 Last Admin: 07/03/23 08:24 Dose: 5 mg Documented By: Admin: 07/02/23 21:16 Dose: 5 mg Documented By: Admin: 07/02/23 08:09 Dose: 5 mg Documented By: Admin: 07/01/23 20:01 Dose: 5 mg Documented By: Admin: 06/26/23 22:27 Dose: 5 mg Documented By: Admin: 06/26/23 08:50 Dose: 5 mg Documented By: Admin: 06/25/23 20:25 Dose: 5 mg Documented By: Admin: 06/25/23 08:15 Dose: 5 mg Documented By: Admin: 06/24/23 20:01 Dose: 5 mg Documented By: Admin: 06/24/23 08:27 Dose: 5 mg Documented By: ABELARDO Fluticasone Propionate (Fluticasone Propionate Na Spr 16 Gm Btl) 1 sprays NA DAILY HALEY Stop: 07/24/23 08:59 Last Admin: 07/03/23 08:25 Dose: 1 sprays Documented By: Admin: 07/02/23 08:08 Dose: 1 sprays Documented By: Admin: 07/01/23 08:06 Dose: 1 sprays Documented By: Admin: 06/30/23 07:46 Dose: 1 sprays Documented By: Admin: 06/29/23 08:51 Dose: Not Given Documented By: DMBritton Admin: 06/28/23 09:46 Dose: 1 sprays Documented By: Admin: 06/27/23 08:08 Dose: 1 sprays Documented By: Admin: 06/26/23 08:47 Dose: 1 sprays Documented By: AABritton Admin: 06/25/23 08:15 Dose: 1 sprays Documented By: MTRena Admin: 06/24/23 08:27 Dose: 1 sprays Documented By: ABELARDO Amphotericin B 200 mg/ (Dextrose) 200 mls @ 125 mls/hr IV Q24H HALEY Stop: 07/05/23 13:59 Last Infusion: 07/02/23 20:06 Dose: 0 mls/hr Documented By: Admin: 07/02/23 18:07 Dose: 125 mls/hr Documented By: Infusion: 07/01/23 20:04 Dose: 0 mls/hr Documented By: Admin: 07/01/23 18:23 Dose: 125 mls/hr Documented By: Infusion: 06/30/23 19:39 Dose: 0 mls/hr Documented By: Admin: 06/30/23 17:20 Dose: 125 mls/hr Documented By: Infusion: 06/29/23 21:47 Dose: 0 mls/hr Documented By: Admin: 06/29/23 18:33 Dose: 125 mls/hr Documented By: Infusion: 06/28/23 21:51 Dose: 0 mls/hr Documented By: Admin: 06/28/23 19:31 Dose: 125 mls/hr Documented By: Infusion: 06/27/23 19:52 Dose: 0 mls/hr Documented By: Admin: 06/27/23 18:07 Dose: 125 mls/hr Documented By: Infusion: 06/25/23 17:04 Dose: 0 mls/hr Documented By: Admin: 06/25/23 15:06 Dose: 125 mls/hr Documented By: QUE Lactated Ringer's (Lr) 1,000 mls @ 100 mls/hr IV .Q10H HALEY Stop: 07/26/23 09:59 Last Infusion: 07/01/23 10:12 Dose: 0 mls/hr Documented By: Admin: 07/01/23 03:30 Dose: 100 mls/hr Documented By: Infusion: 07/01/23 01:36 Dose: 100 mls/hr Documented By: Admin: 06/30/23 15:36 Dose: 100 mls/hr Documented By: Infusion: 06/28/23 23:25 Dose: 0 mls/hr Documented By: Infusion: 06/28/23 11:29 Dose: 0 mls/hr Documented By: Admin: 06/28/23 09:43 Dose: 100 mls/hr Documented By: Infusion: 06/28/23 09:15 Dose: 100 mls/hr Documented By: Admin: 06/27/23 23:15 Dose: 100 mls/hr Documented By: Infusion: 06/27/23 23:12 Dose: 0 mls/hr Documented By: Admin: 06/27/23 15:03 Dose: 100 mls/hr Documented By: Infusion: 06/27/23 14:45 Dose: 100 mls/hr Documented By: Admin: 06/27/23 05:32 Dose: 125 mls/hr Documented By: Infusion: 06/27/23 05:32 Dose: 125 mls/hr Documented By: Admin: 06/26/23 22:22 Dose: 125 mls/hr Documented By: Infusion: 06/26/23 18:25 Dose: 0 mls/hr Documented By: Admin: 06/26/23 09:59 Dose: 125 mls/hr Documented By: AMANDEEP Insulin Aspart (Insulin Aspart Per Unit Charge) 0 units SC ACHS HALEY Stop: 07/24/23 07:29 Last Admin: 07/03/23 08:41 Dose: 2 units Documented By: AV Co-signed By: TLH Admin: 07/02/23 21:18 Dose: 1 units Documented By: NMS Co-signed By: SG Admin: 07/02/23 17:13 Dose: 2 units Documented By: AV Co-signed By: KS Admin: 07/02/23 12:11 Dose: Not Given Documented By: Admin: 07/02/23 07:58 Dose: Not Given Documented By: Admin: 07/01/23 20:59 Dose: 1 units Documented By: NMS Co-signed By: SG Admin: 07/01/23 17:12 Dose: Not Given Documented By: Admin: 07/01/23 12:11 Dose: 3 units Documented By: AV Co-signed By: MK Admin: 07/01/23 08:07 Dose: Not Given Documented By: Admin: 06/30/23 21:17 Dose: 1 units Documented By: RES Co-signed By: ADZ Admin: 06/30/23 16:45 Dose: Not Given Documented By: Admin: 06/30/23 12:06 Dose: Not Given Documented By: Admin: 06/30/23 09:18 Dose: Not Given Documented By: Admin: 06/29/23 20:45 Dose: Not Given Documented By: Admin: 06/29/23 17:11 Dose: 1 units Documented By: GEG Co-signed By: HMBritton Admin: 06/29/23 12:36 Dose: 2 units Documented By: SASKIA Co-signed By: OSVALDO Admin: 06/29/23 08:57 Dose: Not Given Documented By: SASKIA Co-signed By: RAFIA Admin: 06/28/23 21:27 Dose: 1 units Documented By: RENATA Co-signed By: PATRICIO Admin: 06/28/23 18:04 Dose: Not Given Documented By: SASKIA Co-signed By: RAFIA Admin: 06/28/23 12:42 Dose: 1 units Documented By: SASKIA Co-signed By: RAFIA Admin: 06/28/23 10:23 Dose: Not Given Documented By: SASKIA Co-signed By: AU Admin: 06/27/23 20:44 Dose: Not Given Documented By: Admin: 06/27/23 17:16 Dose: 2 units Documented By: RT Co-signed By: WRM Admin: 06/27/23 12:05 Dose: 2 units Documented By: RT Co-signed By: LASHA Admin: 06/27/23 08:17 Dose: Not Given Documented By: Admin: 06/26/23 22:37 Dose: 1 units Documented By: DANNYB Co-signed By: ADTracey Admin: 06/26/23 17:49 Dose: 2 units Documented By: AABritton Co-signed By: CAROLYN Admin: 06/26/23 12:24 Dose: 5 units Documented By: AAH Co-signed By: CAROLYN Admin: 06/26/23 08:40 Dose: 2 units Documented By: ADARSH Co-signed By: MARCO Admin: 06/25/23 20:36 Dose: Not Given Documented By: ALEX Co-signed By: MELODIE Admin: 06/25/23 18:02 Dose: 4 units Documented By: MTM Co-signed By: LASHA(2) Admin: 06/25/23 12:58 Dose: 3 units Documented By: MTM Co-signed By: LASHA(2) Admin: 06/25/23 09:06 Dose: 2 units Documented By: MTRena Co-signed By: CAROLYN Admin: 06/24/23 21:19 Dose: 3 units Documented By: MELODIE Co-signed By: KEN Admin: 06/24/23 17:14 Dose: 2 units Documented By: ABELARDO Co-signed By: LALO Admin: 06/24/23 12:11 Dose: 3 units Documented By: ABELARDO Co-signed By: RRR Admin: 06/24/23 09:11 Dose: 4 units Documented By: ABELARDO Co-signed By: ABELARDO(2) Insulin Glargine (Lantus Per Unit Charge) 10 units SQ BID HALEY Stop: 07/29/23 08:59 Last Admin: 07/03/23 08:41 Dose: 10 units Documented By: TOMMY Co-signed By: TLBritton Admin: 07/02/23 21:18 Dose: 10 units Documented By: PARIS Co-signed By: SG Admin: 07/02/23 08:29 Dose: 10 units Documented By: AV Co-signed By: RRLeonila Admin: 07/01/23 20:59 Dose: 10 units Documented By: NMS Co-signed By: SG Admin: 07/01/23 08:15 Dose: 10 units Documented By: AV Co-signed By: RRJ Admin: 06/30/23 21:17 Dose: 10 units Documented By: RES Co-signed By: TERRENCE Admin: 06/30/23 10:00 Dose: Not Given Documented By: Admin: 06/29/23 20:48 Dose: 10 units Documented By: MRE Co-signed By: FUAD Admin: 06/29/23 09:00 Dose: 10 units Documented By: SASKIA Co-signed By: EA Magnesium Chloride (Magnesium Chloride W/Calcium 64mg Delayed Rel Tab) 64 mg PO BID HALEY Stop: 07/24/23 08:59 Last Admin: 07/03/23 08:24 Dose: 64 mg Documented By: Admin: 07/02/23 21:15 Dose: 64 mg Documented By: Admin: 07/02/23 08:08 Dose: 64 mg Documented By: Admin: 07/01/23 20:00 Dose: 64 mg Documented By: Admin: 07/01/23 08:06 Dose: 64 mg Documented By: Admin: 06/30/23 19:41 Dose: 64 mg Documented By: Admin: 06/30/23 07:46 Dose: 64 mg Documented By: Admin: 06/29/23 20:21 Dose: 64 mg Documented By: Admin: 06/29/23 08:51 Dose: 64 mg Documented By: Admin: 06/28/23 21:26 Dose: 64 mg Documented By: Admin: 06/28/23 09:47 Dose: 64 mg Documented By: Admin: 06/27/23 20:05 Dose: 64 mg Documented By: Admin: 06/27/23 08:08 Dose: 64 mg Documented By: Admin: 06/26/23 22:27 Dose: 64 mg Documented By: Admin: 06/26/23 08:50 Dose: 64 mg Documented By: Admin: 06/25/23 20:26 Dose: 64 mg Documented By: Admin: 06/25/23 08:15 Dose: 64 mg Documented By: Admin: 06/24/23 20:01 Dose: 64 mg Documented By: Admin: 06/24/23 08:27 Dose: 64 mg Documented By: BCRudi Meclizine HCl (Meclizine 12.5 Mg Tab) 12.5 mg PO QAM HALEY Stop: 07/24/23 08:59 Last Admin: 07/03/23 08:24 Dose: 12.5 mg Documented By: Admin: 07/02/23 08:09 Dose: 12.5 mg Documented By: Admin: 07/01/23 08:06 Dose: 12.5 mg Documented By: Admin: 06/30/23 07:46 Dose: 12.5 mg Documented By: Admin: 06/29/23 08:52 Dose: 12.5 mg Documented By: DMBritton Admin: 06/28/23 09:47 Dose: 12.5 mg Documented By: DMBritton Admin: 06/27/23 08:09 Dose: 12.5 mg Documented By: Admin: 06/26/23 08:50 Dose: 12.5 mg Documented By: Admin: 06/25/23 08:15 Dose: 12.5 mg Documented By: MTRena Admin: 06/24/23 08:27 Dose: 12.5 mg Documented By: ABELARDO Metoprolol Succinate (Metoprolol Succ 25mg Ext Rel Tab) 25 mg PO BID HALEY Stop: 07/24/23 08:59 Last Admin: 07/03/23 08:23 Dose: 25 mg Documented By: Admin: 07/02/23 21:16 Dose: 25 mg Documented By: Admin: 07/02/23 08:09 Dose: 25 mg Documented By: Admin: 07/01/23 20:01 Dose: 25 mg Documented By: Admin: 07/01/23 08:06 Dose: 25 mg Documented By: Admin: 06/30/23 19:52 Dose: 25 mg Documented By: Admin: 06/30/23 07:46 Dose: 25 mg Documented By: Admin: 06/29/23 20:21 Dose: 25 mg Documented By: Admin: 06/29/23 08:55 Dose: 25 mg Documented By: Admin: 06/28/23 21:27 Dose: 25 mg Documented By: Admin: 06/28/23 09:47 Dose: Not Given Documented By: Admin: 06/27/23 20:05 Dose: 25 mg Documented By: Admin: 06/27/23 08:08 Dose: 25 mg Documented By: Admin: 06/26/23 22:28 Dose: 25 mg Documented By: Admin: 06/26/23 08:49 Dose: 25 mg Documented By: Admin: 06/25/23 20:26 Dose: 25 mg Documented By: Admin: 06/25/23 08:15 Dose: 25 mg Documented By: MTRena Admin: 06/24/23 20:01 Dose: 25 mg Documented By: Admin: 06/24/23 08:27 Dose: 25 mg Documented By: BCD Miscellaneous (Carbohydrates For Hypoglycemia ) 15 - 30 gm PO UD PRN PRN Reason: Hypoglycemia Protocol Stop: 07/24/23 02:23 Last Admin: 06/29/23 07:54 Dose: 15 gm Documented By: SASKIA Miscellaneous (Remove Lidoderm Patch) 1 each N/A DAILY@2100 [facility] Stop: 07/27/23 20:59 Last Admin: 07/02/23 21:17 Dose: Not Given Documented By: Admin: 07/01/23 19:59 Dose: Not Given Documented By: Admin: 06/30/23 19:53 Dose: Not Given Documented By: Admin: 06/29/23 20:22 Dose: 1 each Documented By: Admin: 06/28/23 21:28 Dose: 1 each Documented By: Admin: 06/27/23 20:05 Dose: 1 each Documented By: RENATA Multivitamins (Multivitamin Tab) 1 tab PO QAM [facility] Stop: 07/24/23 08:59 Last Admin: 07/03/23 08:24 Dose: 1 tab Documented By: Admin: 07/02/23 08:09 Dose: 1 tab Documented By: Admin: 07/01/23 08:06 Dose: 1 tab Documented By: Admin: 06/30/23 07:46 Dose: 1 tab Documented By: Admin: 06/29/23 08:52 Dose: 1 tab Documented By: Admin: 06/28/23 09:47 Dose: 1 tab Documented By: Admin: 06/27/23 08:09 Dose: 1 tab Documented By: Admin: 06/26/23 08:48 Dose: 1 tab Documented By: AABritton Admin: 06/25/23 08:15 Dose: 1 tab Documented By: Admin: 06/24/23 08:27 Dose: 1 tab Documented By: ABELARDO Ondansetron HCl (Ondansetron 4 Mg Od Tab) 4 mg PO Q6H PRN PRN Reason: Nausea Stop: 07/24/23 02:23 Last Admin: 06/28/23 11:34 Dose: 4 mg Documented By: Admin: 06/27/23 05:59 Dose: 4 mg Documented By: ADEva Pantoprazole Sodium (Pantoprazole 40 Mg Tab) 40 mg PO BID [facility] Stop: 07/24/23 08:59 Last Admin: 07/03/23 08:24 Dose: 40 mg Documented By: Admin: 07/02/23 21:15 Dose: 40 mg Documented By: Admin: 07/02/23 08:08 Dose: 40 mg Documented By: Admin: 07/01/23 20:00 Dose: 40 mg Documented By: Admin: 07/01/23 08:06 Dose: 40 mg Documented By: Admin: 06/30/23 19:42 Dose: 40 mg Documented By: Admin: 06/30/23 07:46 Dose: 40 mg Documented By: Admin: 06/29/23 20:20 Dose: 40 mg Documented By: Admin: 06/29/23 08:52 Dose: 40 mg Documented By: Admin: 06/28/23 21:26 Dose: 40 mg Documented By: Admin: 06/28/23 09:48 Dose: 40 mg Documented By: Admin: 06/27/23 20:04 Dose: 40 mg Documented By: Admin: 06/27/23 08:08 Dose: 40 mg Documented By: Admin: 06/26/23 22:28 Dose: 40 mg Documented By: Admin: 06/26/23 08:50 Dose: 40 mg Documented By: Admin: 06/25/23 20:25 Dose: 40 mg Documented By: Admin: 06/25/23 08:15 Dose: 40 mg Documented By: Admin: 06/24/23 20:02 Dose: 40 mg Documented By: Admin: 06/24/23 08:27 Dose: 40 mg Documented By: BCD Potassium Chloride (Potassium Chloride Crtab 20 Meq Tabcr) 20 meq PO QAM [facility]ALEY Stop: 07/24/23 08:59 Last Admin: 07/03/23 08:24 Dose: 20 meq Documented By: Admin: 07/02/23 08:09 Dose: 20 meq Documented By: Admin: 07/01/23 08:06 Dose: 20 meq Documented By: Admin: 06/30/23 07:46 Dose: 20 meq Documented By: Admin: 06/29/23 08:53 Dose: 20 meq Documented By: DMBritton Admin: 06/28/23 09:48 Dose: 20 meq Documented By: Admin: 06/27/23 08:08 Dose: 20 meq Documented By: Admin: 06/26/23 08:50 Dose: 20 meq Documented By: AABritton Admin: 06/25/23 08:15 Dose: 20 meq Documented By: Admin: 06/24/23 08:28 Dose: 20 meq Documented By: ABELARDO Quetiapine Fumarate (Quetiapine Fumarate 25 Mg Tablet) 25 mg PO HS HALEY Stop: 07/24/23 20:59 Last Admin: 07/02/23 21:16 Dose: 25 mg Documented By: Admin: 07/01/23 20:00 Dose: 25 mg Documented By: Admin: 06/30/23 19:42 Dose: 25 mg Documented By: Admin: 06/29/23 20:21 Dose: 25 mg Documented By: Admin: 06/28/23 21:26 Dose: 25 mg Documented By: Admin: 06/27/23 20:04 Dose: 25 mg Documented By: Admin: 06/26/23 22:26 Dose: 25 mg Documented By: Admin: 06/25/23 20:27 Dose: 25 mg Documented By: Admin: 06/24/23 20:04 Dose: 25 mg Documented By: ADEva Saccharomyces Boulardii (Saccharomyces Boulardii 250 Mg Cap) 250 mg PO BID HALEY Stop: 07/24/23 08:59 Last Admin: 07/03/23 08:24 Dose: 250 mg Documented By: Admin: 07/02/23 21:16 Dose: 250 mg Documented By: Admin: 07/02/23 08:09 Dose: 250 mg Documented By: Admin: 07/01/23 20:01 Dose: 250 mg Documented By: Admin: 07/01/23 08:06 Dose: 250 mg Documented By: Admin: 06/30/23 19:42 Dose: 250 mg Documented By: Admin: 06/30/23 07:45 Dose: 250 mg Documented By: Admin: 06/29/23 20:22 Dose: 250 mg Documented By: Admin: 06/29/23 08:53 Dose: 250 mg Documented By: Admin: 06/28/23 21:26 Dose: 250 mg Documented By: Admin: 06/28/23 09:48 Dose: 250 mg Documented By: Admin: 06/27/23 20:04 Dose: 250 mg Documented By: Admin: 06/27/23 08:09 Dose: 250 mg Documented By: Admin: 06/26/23 22:29 Dose: 250 mg Documented By: Admin: 06/26/23 08:49 Dose: 250 mg Documented By: AABritton Admin: 06/25/23 20:27 Dose: 250 mg Documented By: Admin: 06/25/23 08:15 Dose: 250 mg Documented By: Admin: 06/24/23 20:03 Dose: 250 mg Documented By: Admin: 06/24/23 08:28 Dose: 250 mg Documented By: BCD Sucralfate (Sucralfate 1 Gm/10 Ml Udc) 1 gm PO QID HALEY Stop: 07/24/23 08:59 Last Admin: 07/03/23 08:24 Dose: 1 gm Documented By: Admin: 07/02/23 21:15 Dose: 1 gm Documented By: Admin: 07/02/23 17:10 Dose: 1 gm Documented By: Admin: 07/02/23 12:10 Dose: 1 gm Documented By: Admin: 07/02/23 08:07 Dose: 1 gm Documented By: Admin: 07/01/23 20:03 Dose: 1 gm Documented By: Admin: 07/01/23 17:20 Dose: 1 gm Documented By: Admin: 07/01/23 12:11 Dose: 1 gm Documented By: Admin: 07/01/23 08:08 Dose: 1 gm Documented By: Admin: 06/30/23 19:43 Dose: 1 gm Documented By: Admin: 06/30/23 16:53 Dose: 1 gm Documented By: Admin: 06/30/23 12:09 Dose: 1 gm Documented By: Admin: 06/30/23 07:47 Dose: 1 gm Documented By: Admin: 06/29/23 20:21 Dose: 1 gm Documented By: Admin: 06/29/23 17:11 Dose: 1 gm Documented By: Admin: 06/29/23 12:31 Dose: 1 gm Documented By: DMBritton Admin: 06/29/23 08:53 Dose: 1 gm Documented By: Admin: 06/28/23 21:27 Dose: 1 gm Documented By: Admin: 06/28/23 17:03 Dose: 1 gm Documented By: DMBritton Admin: 06/28/23 12:43 Dose: 1 gm Documented By: DMBritton Admin: 06/28/23 09:49 Dose: 1 gm Documented By: Admin: 06/27/23 20:05 Dose: 1 gm Documented By: Admin: 06/27/23 17:09 Dose: 1 gm Documented By: Admin: 06/27/23 12:03 Dose: 1 gm Documented By: Admin: 06/27/23 08:09 Dose: 1 gm Documented By: Admin: 06/26/23 22:25 Dose: 1 gm Documented By: Admin: 06/26/23 17:54 Dose: 1 gm Documented By: Admin: 06/26/23 13:40 Dose: 1 gm Documented By: Admin: 06/26/23 08:48 Dose: 1 gm Documented By: Admin: 06/25/23 20:27 Dose: 1 gm Documented By: Admin: 06/25/23 17:01 Dose: 1 gm Documented By: Admin: 06/25/23 12:58 Dose: 1 gm Documented By: Admin: 06/25/23 08:15 Dose: 1 gm Documented By: MTRena Admin: 06/24/23 20:03 Dose: 1 gm Documented By: Admin: 06/24/23 17:14 Dose: 1 gm Documented By: Admin: 06/24/23 12:12 Dose: 1 gm Documented By: Admin: 06/24/23 08:28 Dose: 1 gm Documented By: ABELARDO Venlafaxine HCl (Venlafaxine Hcl Xr 75 Mg Capxr) 75 mg PO QPM HALEY Stop: 07/24/23 20:59 Last Admin: 07/02/23 21:15 Dose: 75 mg Documented By: Admin: 07/01/23 20:00 Dose: 75 mg Documented By: Admin: 06/30/23 19:43 Dose: 75 mg Documented By: Admin: 06/29/23 20:21 Dose: 75 mg Documented By: Admin: 06/28/23 21:26 Dose: 75 mg Documented By: Admin: 06/27/23 20:03 Dose: 75 mg Documented By: Admin: 06/26/23 22:26 Dose: 75 mg Documented By: Admin: 06/25/23 20:26 Dose: 75 mg Documented By: Admin: 06/24/23 20:04 Dose: 75 mg Documented By: MELODIE Venlafaxine HCl (Venlafaxine Hcl Xr 150 Mg Capxr) 150 mg PO QPM HALEY Stop: 07/24/23 20:59 Last Admin: 07/02/23 21:16 Dose: 150 mg Documented By: Admin: 07/01/23 20:00 Dose: 150 mg Documented By: Admin: 06/30/23 19:43 Dose: 150 mg Documented By: Admin: 06/29/23 20:21 Dose: 150 mg Documented By: Admin: 06/28/23 21:26 Dose: 150 mg Documented By: Admin: 06/27/23 20:04 Dose: 150 mg Documented By: Admin: 06/26/23 22:29 Dose: 150 mg Documented By: Admin: 06/25/23 20:28 Dose: 150 mg Documented By: Admin: 06/24/23 20:04 Dose: 150 mg Documented By: MELODIE Vitamin D (Cholecalciferol 1,000 Units 25 Mcg Tab) 2,000 units PO DAILY [facility]ALEY Stop: 07/24/23 08:59 Last Admin: 07/03/23 08:24 Dose: 2,000 units Documented By: Admin: 07/02/23 08:09 Dose: 2,000 units Documented By: Admin: 07/01/23 08:06 Dose: 2,000 units Documented By: Admin: 06/30/23 07:45 Dose: 2,000 units Documented By: Admin: 06/29/23 08:51 Dose: 2,000 units Documented By: DMBritton Admin: 06/28/23 09:46 Dose: 2,000 units Documented By: Admin: 06/27/23 08:08 Dose: 2,000 units Documented By: Admin: 06/26/23 08:49 Dose: 2,000 units Documented By: Admin: 06/25/23 08:15 Dose: 2,000 units Documented By: Admin: 06/24/23 08:27 Dose: 2,000 units Documented By: ABELARDO Coding Level of Care Code 68574 [facility] Intl Hosp Care Lvl 2 Diagnoses 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
[2023-07-03 14:38] LABS: BUN Creatinine Ratio 21.2 (10-20); Calcium 9.4 mg/dl (8.6-10.3); Creatinine Clr Calc Pharmacy 24.2 ml/min; Est GFR (African American) 29.3 ml/min; Est GFR (Non-African American) 25.3 ml/min; Potassium 3.6 mmol/L (3.5-5.1)
[2023-07-03] MEDS: LACTATED RINGER'S 1,000 ML IV SCH (15:16)
[2023-07-03] MEDS: AMPHOTERICIN B LIPOSOMAL IV SCH (18:08)
[2023-07-03] MEDS: [UNRECOGNIZED DRUG - OTHER] IV SCH (18:08)
[2023-07-03] MEDS ORDERED: Nursing to Pharmacy Communication SCH (20:00)
[2023-07-03] MEDS: QUEtiapine FUMARATE 25 MG TABLET PO SCH (20:01)
[2023-07-03] MEDS: VENLAFAXINE HCL XR 75 MG CAPXR PO SCH (20:01)
[2023-07-03] MEDS: ACETAMINOPHEN 325 MG TAB PO PRN (20:01)
[2023-07-03] MEDS: VENLAFAXINE HCL XR 150 MG CAPXR PO SCH (20:01)
[2023-07-04 01:27] LABS: Cryptococcal Antigen Not Detected (Not Detected); Source CSF
[2023-07-04] MEDS: LACTATED RINGER'S 1,000 ML IV SCH ×2 (01:45→12:24)
[2023-07-04] MEDS: FLUCYTOSINE 500 MG CAP PO SCH (05:53)
--- NOTE | 2023-07-04 07:12 | Hospitalist Progress Note ---
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 History of cryptococcal meningitis (dx 02/2022) -Pt presenting with increase in auditory/visual hallucinations -ID consulted; recommended brain MRI which showed increased inflammation of her cerebellum -LP performed 06/30; CSF studies as per chart -CSF meningitis/encephalitis neg, serum cryptococcal Ag neg -Still awaiting crypto CSF studies -Bacterial blood cx neg; fungal blood cx neg -Began liposomal amphotericin (3mg/kg daily) and flucytosine (25 mg/kg QID) 06/25; continue dosing regimen as Cr allows-> flucytosine changed to q12 from q6 on 07/03. 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 Hallucinations -Likely multifactorial in the setting of cryptococcal meningitis, hospital induced delirium -Concern that there could also be an underlying psychiatric component -Psych consulted appreciate recommendations Hypomagnesium/Hypokalemia -Continue to replete as necessary -Continue to trend Drug-induced ALBINA -Restarted LR 100mL/hr; if Cr improves- hold fluids -Continue to monitor Insulin dependent diabetes mellitus -During previous hospitalization, basal insulin was decreased d/t hypoglycemic episodes -Basal insulin to 10 units BID -Continue SSI: goal 100-140, CF 50, CR 25 Anxiety -Continue home venlafaxine 150mg daily Paroxysmal afib -Continue metoprolol, Eliquis Cirrhosis -Stable; no acute decompensation Gastritis -Continue pantoprazole and sucralfate Code status: full Diet: carb consistent DVT ppx: eliquis (2) Cryptococcal meningitis: (3) Uncontrolled type 2 diabetes mellitus with hyperglycemia, with long-term current use of insulin: (4) Anxiety: (5) Paroxysmal A-fib: (6) Cirrhosis of liver: (7) Hypomagnesemia: (8) Hypokalemia: (9) Gastritis: (10) Hypertension: Admission and Anticipated Discharge Date Admission Date: June 24, 2023 Supervising Physician Co-Signing Physician Notes I personally examined the patient and verified all fish points of history and ex am, discussed case, and agree with decision making with Dr Scott some hallucinations and a little more paranoia but seems aware that this is happening is calm when we talk. Vitals noted, in general she is awake and alert pleasant no distress. HEENT normocephalic atraumatic mucous membranes moist. Breathing unlabored no accessory muscle use good effort. Skin shows no rashes no pallor or icterus. Cryptococcal meningitiscontinue IV antifungals per infectious disease recommendations. I do suspect she is suffering a degree of side effects/fallout from the antifungals, and yet at the same time given the morbidity/mortality of cryptococcal meningitis, we discussed that it really is something that we will have to have a very high threshold to change therapy AKIprobably related to Amphotericinversus almost as likely but less likely flucytosinecontinue gentle IV fluids and followthis appears to have leveled out Acute anemiatransfuse given that she is clearly less than 7. No obvious hemorrhagesuspect it is marrow suppressionbut again have to continue treatment given the risk of untreated cryptococcal meningitisobviously will appreciate further infectious disease input on this. Hallucinations/paranoiaprobably related to the infection itself, cannot rule out delirium or maybe even med side effectsbut again watchful waiting. otherwise as above Subjective Patient seen and examined at bedside. No acute events reported overnight. Had some intermittent confusion/hallucinations today. Denies dizziness/lightheadedness, denies dark bowel movements or blood in stool. Review of Systems Review of Systems: As per above Physical Exam Constitutional: well developed and well nourished; no acute distress Eyes: + conjunctival abnormality and + anicteric sclerae ENMT: Ears: no external ear abnormality Nose: no external nose abnormality Moist mucous membranes Respiratory: normal respiratory effort, lungs clear to auscultation Cardiovascular: Rate/Rhythm: regular rate and regular rhythm Gastrointestinal (Abdomen): Abdomen soft, nondistended. Mild abdomen pain to palpation, not localized. Skin: no rashes, warm and dry Psychiatric: Intermittent confusion and hallucinations, easily is redirected Results & Data Results & Data Vital Signs (Past 12 Hours) Vital Signs Temp Pulse Resp BP Pulse Ox O2 Del Method 07/03/23 19:52 36.8 C 70 16 115/73 99 Room Air Resident Activity Tracking Resident Involvement: Resident Care Provided Care Provided: Adult Hospital Medicine (10) Hypertension Hypertension type: essential hypertension Qualified Code(s): I10 - Essential (primary) hypertension
[2023-07-04 08:24] LABS: Albumin Globulin Ratio 1.4 (0.9-2); Albumin Level 3.1 gm/dl (3.4-5.0); BUN Creatinine Ratio 26.1 (10-20); Bilirubin,Total 0.4 mg/dl (0.2-1.0); Calcium 8.5 mg/dl (8.6-10.3); Creatinine Clr Calc Pharmacy 29.7 ml/min; Est GFR (African American) 37.6 ml/min; Est GFR (Non-African American) 32.5 ml/min; Globulin 2.2 gm/dl (2.5-4.0); Magnesium 1.5 mg/dl (1.7-2.4); Potassium 3.3 mmol/L (3.5-5.1); Total Protein 5.3 gm/dl (6.0-8.3)
[2023-07-04 08:29] LABS: Hematocrit (blood only) 19.1 % (37.0-47.0); Hemoglobin 6.5 g/dl (12.0-16.0); Mean Corpuscular Hemoglobin 27.1 pg (25.0-34.0); Mean Corpuscular Volume 79.6 fL (80.0-100.0); Mean Platelet Volume 10.9 fL (9.4-12.4); Platelet Count 164 K/uL (130-400); RDW Coefficient of Variation 15.3 % (11.5-14.5); White Blood Count 4.33 K/ul (4.8-10.8)
[2023-07-04 08:30] LABS: Basophils # (auto) 0.03 K/uL (0.00-0.20); Basophils % (auto) 0.7 %; Eosinophils # (auto) 0.13 K/uL (0.00-0.50); Immature Granulocytes # (auto) 0.01 K/uL (0.01-0.20); Immature Granulocytes % (auto) 0.2 %; Lymphocytes # (auto) 0.97 K/uL (1.20-3.40); Lymphocytes % (auto) 22.4 %; Monocytes % (auto) 6.9 %; Neutrophils # (auto) 2.89 K/uL (1.40-6.50); Neutrophils % (auto) 66.8 %; RBC Morphology Unremarkable
[2023-07-04] MEDS: SACCHAROMYCES BOULARDII 250 MG CAP PO SCH ×2 (08:51→20:07)
[2023-07-04] MEDS: PANTOprazole 40 MG TAB PO SCH ×2 (08:52→20:07)
[2023-07-04] MEDS: APIXABAN 5 MG TABLET PO SCH ×2 (08:52→20:07)
[2023-07-04] MEDS: METOPROLOL SUCC 25MG EXT REL TAB PO SCH ×2 (08:52→20:07)
[2023-07-04] MEDS: SUCRALFATE 1 GM/10 ML UDC PO SCH ×4 (08:52→20:07)
[2023-07-04] MEDS: POTASSIUM CHLORIDE CRTAB 20 MEQ TABCR PO SCH (08:52)
[2023-07-04] MEDS: CHOLECALCIFEROL 1,000 UNITS 25 MCG TAB PO SCH (08:52)
[2023-07-04] MEDS: MULTIVITAMIN TAB PO SCH (08:52)
[2023-07-04] MEDS: FLUTICASONE PROPIONATE NA SPR 16 GM BTL SCH (08:53)
[2023-07-04] MEDS: INSULIN ASPART PER UNIT CHARGE SC SCH ×4 (08:56→20:06)
[2023-07-04] MEDS: LANTUS PER UNIT CHARGE SQ SCH ×2 (08:56→20:06)
[2023-07-04 12:46] LABS: Hematocrit (blood only) 19.8 % (37.0-47.0); Hemoglobin 6.7 g/dl (12.0-16.0)
[2023-07-04] MEDS: MAGNESIUM SULFATE / D5W 1 GM/100 ML BAG IV SCH ×2 (13:40→15:17)
[2023-07-04] MEDS: POTASSIUM CHLORIDE / WTR 10 MEQ/100 ML PLCT IV SCH ×4 (13:40→17:03)
[2023-07-04] MEDS ORDERED: SODIUM CHLORIDE 0.9% 250 ML IV PRN ×2 (14:34→15:25)
--- NOTE | 2023-07-04 15:15 | Infectious Disease Progress Nt ---
Date of Service July 04, 2023 Assessment & Plan (1) Hallucinations: (2) Atrial fibrillation with rapid ventricular response: Plan 62 yo F with PMH anxiety/MDD, reported history of cryptococcal meningitis on suppressive therapy with fluconazole, afib on warfarin followed by Srinivasa DOUGLAS, auditory and visual hallucinations admitted with concerns of visual and auditory hallucination. ID consulted for evaluation. Review of Dr. Huggins of [place] note from 12/02/22 states she initially diagnosed with cryptococcal meningitis in 02/2022 at [facility] and transferred to [facility]. She was treated with liposomal amphotericin and flucytosine through 03/16/22 followed by fluconazole 400mg daily for 8 weeks through 05/12/23. The she was changed to 200mg dailyon 05/13/22 for anticipated 1 year of therapy but in 07/17 dose was increased to 400mg daily d/t vertigo and hallucinations. There was di scussion at that time to change to isavuconazole because of drug interaction. She was admitted to [facility] in 05/2023 for weakness. ID was not consulted during that time. Her weakness was thought to be secondary to episodic diarrhea from fluconazole. For her afib she was changed from warfarin to Eliquis. She was also diagnosed with UTI, Ucx grew mssa and ecoli. She received Cefdinir On 06/23 she returned to ED with her son as he was concerned for increasing hallucinations. He reported that since the patient was discharged she has been having increased hallucinations talking to people who are not there including pictures on her cell phone thinking they are real people. Her VSS, CMP normal, aphos slightly increased to 121. UA shows 10-30 wbcs UC + lactobacillus On initial exam, she appeared comfortable She denied hearing voices or seeing people but upon further discussion admitted that a picture spoke to her awhile ago. No FLOWERS, visual changes, neck stiffness. No fevers/chills/diarrhea/ra sh/sob/cp PRIOR Pertinent labs HIV NR 03/02/22, Serum Crypto antigen positive 07/07/22, CSF cryto negative 07/07/22 05/31/23 Ucx>100,000 cfu/mL MSSA, 80,000 Ecoli panS 06/15/23 Ucx probable skin seda 06/15 Bcx sterile Micro this admission / CSF cx sterile 06/30 csf fungal cx ngtd 06/30 M/E panel negative, with C neoformans not detected by pcr 06/25 Serum Crypto antigen negative 06/25 BCx NGTD 06/23 Ucx lactobcillus sp 06/30 csf crypto ag not detected antifungal fluc on admission - 06/25 amph B 06/25- ongoing flucytosine 06/25- ongoing #Cryptococcal meningitis s/p induction and consolidation now on maintenance (HIV negative) #Visual/auditory hallucinations #Afib Discussion: She does have a history hallucinations which is unclear if this preceded her cryptococcal diagnosis. [facility] ( Dr Ray ) attempted to call her ID doctor and left message on 06/24. Dr Ray spoke with Primary who recommend MRI. 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 Findings likely correlate with the reported history of meningitis. She is followed by [facility] outpatient. It looks like the [facility] ID group made recs this weekend on 06/25 ( Dr Huggins) after viewing MRI head results to begin liposomal amphotericin B and flucytosine ; with plan to start prior auth for outpatient voriconazole ( d/t ? tx failure and intolerance with fluconazole) with plan for LP 06/30 STELLA giordano initially saw pt 06/24 but signed off 06/27 as STELLA bhardwaj requested Consult and knew pt longitudinally. Documentation per Dr Huggins 06/30 It appears covering [place] Srinivasa attending, Dr Roxanne Becker will not be seeing patient. STELLA giordano reconsulted , I called [facility] group to clarify their plan for this patient. I discussed with covering ID fellow (Dr Gustafson- fellow pigeon fancier) . Per his conversation, with Dr Becker and Bhavna they will not be seeing pt at [facility] and asked ID gi[facility]iana to continue to follow inpatient. LP done today with 0 and 1 WBC. crypto ag pending. CSF fungal cx P, Serum crypto ag not detected CSF crypto PCR not detected 07/01 denies headache, feels better. I called and discussed case with her ID provider Dr Huggins. Agree to continue Liposoma Amph B/flucyto pending CSF crypto ag and fungal cx results. If negative, plan to put back on fluconazole ( likely high dose). 07/05 csf crypto ag neg, anemia and cr up. discontinue amph b/flucyto as may be contributing. ORDERED LFTs for today and wnl Recommend: FU CSF fungal cx -CHECK EKG, to make sure her qtc is not > 500 -Started high dos fluconazole- goal is 400 qday but renally dosed per pharm at 200 until cr improves - monitor H/H and cr -put call out to her ID provider ( dr Huggins) to update ( awaiting call back) for discussion of final plan, coordination for early follow up . Eliza Jameson MD, MPH Infectious Disease [facility], ID Division Call [phone] with questions Admission and Anticipated Discharge Date Admission Date: June 24, 2023 Subjective This patient recommendation is based on a telemedicine consult request which was completed asynchronously through chart review and information provided by the primary physician. The patient was not seen or examined today. The evaluation is consultative in nature and all patient care and treatment decisions can either be accepted or rejected by the patient's primary hospital-based treating physician using their own independent medical judgment for their patient. Time Spent Reviewing Chart: 21 - 30 minutes csf crypto ag negative Labs noted for anemia h/h6.5/19.8 cr 1.65 Results & Data Vital Signs (Past 12 Hours) Vital Signs Temp Pulse Resp BP Pulse Ox O2 Del Method 07/04/23 07:13 36.7 C 84 16 102/61 96 Room Air Laboratory Results Short CBC 07/04/23 07/04/23 Range/Units 07:41 12:17 WBC 4.33 L (4.8-10.8) K/ul Hgb 6.5 L* 6.7 L* (12.0-16.0) g/dl Hct 19.1 L* 19.8 L* (37.0-47.0) % Plt Count 164 (130-400) K/uL BMP 07/04/23 07:41 Sodium 142 Potassium 3.3 L Chloride 113 H Carbon Dioxide 22 BUN 43 H Creatinine 1.65 H D Glucose 108 H Calcium 8.5 L Liver Function 07/04/23 07/04/23 Range/Units 07:41 16:00 Total Bilirubin 0.4 0.4 (0.2-1.0) mg/dl Direct Bilirubin 0.1 (0-0.2) mg/dl AST 40 H 49 H (13-39) U/L ALT 20 24 (7-52) U/L Alkaline Phosphatase 100 104 (34-104) U/L Albumin 3.1 L 3.1 L (3.4-5.0) gm/dl Diagnostic Findings Microbiology 06/30/23 09:41 Cerebral Spinal Fluid Fungal Culture - Preliminary No yeast or fungus isolated - Report 1, Additional Report to Follow. 06/25/23 17:04 Blood Fungal Smear - Final 06/25/23 17:04 Blood Fungal Culture - Preliminary No yeast or fungus isolated - Report 2, Additional report to follow. 06/30/23 09:41 Cerebral Spinal Fluid Gram Stain - Final 06/30/23 09:41 Cerebral Spinal Fluid CSF Culture - Final No growth 06/30/23 09:41 Cerebral Spinal Fluid Acid Fast Bacilli Smear - Final 06/25/23 17:04 Blood Aerobic Blood Culture - Final No growth in Aerobic bottle after 5 days. 06/25/23 17:04 Blood Anaerobic Blood Culture - Final No growth in Anaerobic bottle after 5 days. 06/25/23 17:15 Blood Aerobic Blood Culture - Final No growth in Aerobic bottle after 5 days. 06/25/23 17:15 Blood Anaerobic Blood Culture - Final No growth in Anaerobic bottle after 5 days. 06/23/23 23:20 Urine,Clean Catch Urine Culture - Final Lactobacillus species
[2023-07-04] MEDS: MAGNESIUM CHLORIDE W/CALCIUM 64MG DELAYED REL TAB PO SCH ×2 (15:17→20:07)
[2023-07-04] MEDS ORDERED: FLUCONAZOLE 100 MG TAB PO ONE (15:24)
[2023-07-04 16:32] LABS: Albumin Level 3.1 gm/dl (3.4-5.0); Bilirubin Direct 0.1 mg/dl (0-0.2); Bilirubin,Total 0.4 mg/dl (0.2-1.0); Total Protein 5.4 gm/dl (6.0-8.3)
[2023-07-04] MEDS: FLUCONAZOLE 100 MG TAB PO SCH (17:14)
--- NOTE | 2023-07-04 17:35 | Psychiatric Progress Note ---
Date of Service July 04, 2023 Impression / Recommendations Impression 63 yo female with hx of hallucinations, she responds well to hospital routines/care. I'm concerned that she seems to have significantly more cognitive difficulties related to independent living skills associated with her neurologic condition or other cognitive process. Lewy body dementia can sometimes present with vivid molina early on out of proportion to level of dementia. I would defer to neurology re: timing of neuropsychological testing. Overall, I spent a total of 36 minutes with this case, including review of chart/records, direct evaluation of the patient, coordination with nursing, and documentation. 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 Known to me from stay on 3S in March. Readmit medically with ongoing evidence of [facility] inflammation and decline in self care. Consult was for "hallucinations." Chief Complaint "My son believes me now about those people trying to visit." Subjective Subjective Patient was seen & assessed and interval progress reviewed with nursing. Cooperative on med floor in that meds infusing, no agitation. She has had periods of paranoia expressed, sometimes unclear if patient feels happening now vs. past. She was on her phone and denying hallucinations. She remains preoccu pied with someone trying to buy her house but denies calling a real time operator as "my house is not for sale." She was pleasant and answered questioned appropriately. She was offered additional seroquel at and reminded about the prn and she declined. Physical Exam Psychiatric Orientation: alert and oriented x 3 Apperance: appropriately dressed and appropriately groomed Eye Contact: good eye contact Motor Behavior: no abnormal motor movements Speech: normal rate/rhythm/volume of speech Affect: euthymic affect Mood: no anxious mood Thought Process: + circumstantial thought process Thought Content: + paranoid (intermittent) Suicidal Thoughts: denies suicidal thoughts Homicidal Thoughts: denies homicidal thoughts Hallucinations: no auditory hallucinations and no visual hallucinations Cognition: attention grossly intact and language grossly intact Estimated Intelligence: consistent with education level Insight: + limited insight Vital Signs (Past 24 Hours) Last Vital Signs Temp 37.1 C 07/04/23 15:23 Pulse 72 10/09/23 15:23 Resp 16 07/04/23 15:23 BP 99/56 L 07/04/23 15:23 Pulse Ox 96 07/04/23 15:23 O2 Del Method Room Air 07/04/23 15:23 Results & Data ([facility]) Laboratory Results Laboratory Results - last 24 hr 06/30/23 07/03/23 07/04/23 09:41 19:54 07:41 WBC RBC Hgb Hct MCV MCH MCHC RDW Std Deviation RDW Coeff of Jun Plt Count MPV Immature Gran % (Auto) Neut % (Auto) Lymph % (Auto) Mingo % (Auto) Eos % (Auto) Baso % (Auto) Neut # (Auto) Lymph # (Auto) Mingo # (Auto) Eos # (Auto) Baso # (Auto) Immature Gran # (Auto) RBC Morphology Sodium 142 Potassium 3.3 L Chloride 113 H Carbon Dioxide 22 Anion Gap 7 BUN 43 H Creatinine 1.65 H D Est Cr Clr Drug Dosing 29.7 Est GFR ( Amer) 37.6 Est GFR (Non-Af Amer) 32.5 BUN/Creatinine Ratio 26.1 H Glucose 108 H POC Glucose 173 H Calcium 8.5 L Magnesium 1.5 L Total Bilirubin 0.4 Direct Bilirubin AST 40 H ALT 20 Alkaline Phosphatase 100 Total Protein 5.3 L Albumin 3.1 L Globulin 2.2 L Albumin/Globulin Ratio 1.4 Cryptococcus Source CSF Cryptococcal Ag (Latex) Not Detected Blood Type Antibody Screen Crossmatch 07/04/23 07/04/23 07/04/23 07:41 07:48 11:53 WBC 4.33 L RBC 2.40 L Hgb 6.5 L* Hct 19.1 L* MCV 79.6 L MCH 27.1 MCHC 34.0 RDW Std Deviation 44.0 RDW Coeff of Jun 15.3 H Plt Count 164 MPV 10.9 Immature Gran % (Auto) 0.2 Neut % (Auto) 66.8 Lymph % (Auto) 22.4 Mingo % (Auto) 6.9 Eos % (Auto) 3.0 Baso % (Auto) 0.7 Neut # (Auto) 2.89 Lymph # (Auto) 0.97 L Mingo # (Auto) 0.30 Eos # (Auto) 0.13 Baso # (Auto) 0.03 Immature Gran # (Auto) 0.01 RBC Morphology Unremarkable Sodium Potassium Chloride Carbon Dioxide Anion Gap BUN Creatinine Est Cr Clr Drug Dosing Est GFR ( Amer) Est GFR (Non-Af Amer) BUN/Creatinine Ratio Glucose POC Glucose 104 H 155 H Calcium Magnesium Total Bilirubin Direct Bilirubin AST ALT Alkaline Phosphatase Total Protein Albumin Globulin Albumin/Globulin Ratio Cryptococcus Source Cryptococcal Ag (Latex) Blood Type Antibody Screen Crossmatch 07/04/23 07/04/23 07/04/23 12:17 15:16 16:00 WBC RBC Hgb 6.7 L* Hct 19.8 L* MCV MCH MCHC RDW Std Deviation RDW Coeff of Jun Plt Count MPV Immature Gran % (Auto) Neut % (Auto) Lymph % (Auto) Mingo % (Auto) Eos % (Auto) Baso % (Auto) Neut # (Auto) Lymph # (Auto) Mingo # (Auto) Eos # (Auto) Baso # (Auto) Immature Gran # (Auto) RBC Morphology Sodium Potassium Chloride Carbon Dioxide Anion Gap BUN Creatinine Est Cr Clr Drug Dosing Est GFR ( Amer) Est GFR (Non-Af Amer) BUN/Creatinine Ratio Glucose POC Glucose Calcium Magnesium Total Bilirubin 0.4 Direct Bilirubin 0.1 AST 49 H ALT 24 Alkaline Phosphatase 104 Total Protein 5.4 L Albumin 3.1 L Globulin Albumin/Globulin Ratio Cryptococcus Source Cryptococcal Ag (Latex) Blood Type B Positive Antibody Screen NEGATIVE Crossmatch See Detail 07/04/23 16:46 WBC RBC Hgb Hct MCV MCH MCHC RDW Std Deviation RDW Coeff of Jun Plt Count MPV Immature Gran % (Auto) Neut % (Auto) Lymph % (Auto) Mingo % (Auto) Eos % (Auto) Baso % (Auto) Neut # (Auto) Lymph # (Auto) Mingo # (Auto) Eos # (Auto) Baso # (Auto) Immature Gran # (Auto) RBC Morphology Sodium Potassium Chloride Carbon Dioxide Anion Gap BUN Creatinine Est Cr Clr Drug Dosing Est GFR ( Amer) Est GFR (Non-Af Amer) BUN/Creatinine Ratio Glucose POC Glucose 121 H Calcium Magnesium Total Bilirubin Direct Bilirubin AST ALT Alkaline Phosphatase Total Protein Albumin Globulin Albumin/Globulin Ratio Cryptococcus Source Cryptococcal Ag (Latex) Blood Type Antibody Screen Crossmatch Current Inpatient Medications Current Inpatient Medications: Current Inpatient Medications Acetaminophen (Acetaminophen 325 Mg Tab) 650 mg PO Q8H PRN PRN Reason: Pain/headache Stop: 08/02/23 14:15 Last Admin: 07/03/23 20:01 Dose: 650 mg Apixaban (Apixaban 5 Mg Tablet) 5 mg PO BID [facility] Stop: 07/24/23 08:59 Last Admin: 07/04/23 08:52 Dose: 5 mg Dextrose (Dextrose 50% 50 Ml Syringe) 25 - 50 ml IV UD PRN; Protocol PRN Reason: Hypoglycemia Protocol Stop: 07/24/23 02:23 Fluconazole (Fluconazole 100 Mg Tab) 200 mg PO Q24H [facility] Stop: 07/14/23 17:59 Last Admin: 07/04/23 17:14 Dose: 200 mg Fluticasone Propionate (Fluticasone Propionate Na Spr 16 Gm Btl) 1 sprays NA DAILY [facility] Stop: 07/24/23 08:59 Last Admin: 07/04/23 08:53 Dose: 1 sprays Glucagon (Glucagon For Inj 1 Mg Vial) 1 mg SQ UD PRN; Protocol PRN Reason: Hypoglycemia Protocol Stop: 07/24/23 02:23 Glucose (Glucose 10 Tab/Tube) 4 - 8 tab PO UD PRN; Protocol PRN Reason: Hypoglycemia Treatment Stop: 07/24/23 02:23 Glucose (Glucose 40% Gel 15 Gm Tube) 15 - 30 gm PO UD PRN; Protocol PRN Reason: Hypoglycemia Protocol Stop: 07/24/23 02:23 Lactated Ringer's (Lr) 1,000 mls @ 100 mls/hr IV .Q10H [facility] Stop: 07/26/23 09:59 Last Admin: 07/04/23 12:24 Dose: 100 mls/hr Sodium Chloride (Nss) 250 mls @ 15 mls/hr IV .[id number] PRN PRN Reason: For Transfusion Duration Stop: 07/05/23 00:34 Sodium Chloride (Nss) 250 mls @ 15 mls/hr IV .[id number] PRN PRN Reason: For Transfusion Duration Stop: 07/05/23 01:25 Insulin Aspart (Insulin Aspart Per Unit Charge) 0 units SC ACHS [facility] Stop: 07/24/23 07:29 Last Admin: 07/04/23 17:07 Dose: 2 units Insulin Glargine (Lantus Per Unit Charge) 10 units SQ BID [facility] Stop: 07/29/23 08:59 Last Admin: 07/04/23 08:56 Dose: 10 units Lidocaine (Lidocaine 5% 1 Patch) 1 patch TD QAM PRN PRN Reason: Pain Stop: 07/27/23 09:44 Magnesium Chloride (Magnesium Chloride W/Calcium 64mg Delayed Rel Tab) 64 mg PO BID [facility] Stop: 07/24/23 08:59 Last Admin: 07/04/23 15:17 Dose: 64 mg Meclizine HCl (Meclizine 12.5 Mg Tab) 12.5 mg PO QAM [facility] Stop: 07/24/23 08:59 Last Admin: 07/03/23 08:24 Dose: 12.5 mg Metoprolol Succinate (Metoprolol Succ 25mg Ext Rel Tab) 25 mg PO BID [facility] Stop: 07/24/23 08:59 Last Admin: 07/04/23 08:52 Dose: 25 mg Miscellaneous (Carbohydrates For Hypoglycemia ) 15 - 30 gm PO UD PRN PRN Reason: Hypoglycemia Protocol Stop: 07/24/23 02:23 Last Admin: 06/29/23 07:54 Dose: 15 gm Miscellaneous (Remove Lidoderm Patch) 1 each N/A DAILY@2100 [facility] Stop: 07/27/23 20:59 Last Admin: 07/03/23 20:01 Dose: Not Given Multivitamins (Multivitamin Tab) 1 tab PO QAM [facility] Stop: 07/24/23 08:59 Last Admin: 07/04/23 08:52 Dose: 1 tab Ondansetron HCl (Ondansetron 4 Mg Od Tab) 4 mg PO Q6H PRN PRN Reason: Nausea Stop: 07/24/23 02:23 Last Admin: 06/28/23 11:34 Dose: 4 mg Pantoprazole Sodium (Pantoprazole 40 Mg Tab) 40 mg PO BID [facility] Stop: 07/24/23 08:59 Last Admin: 07/04/23 08:52 Dose: 40 mg Polyethylene Glycol (Polyethylene (Miralax) 17 Gm Pack) 17 gm PO DAILY PRN PRN Reason: Constipation Stop: 07/24/23 02:23 Potassium Chloride (Potassium Chloride Crtab 20 Meq Tabcr) 20 meq PO QAM [facility] Stop: 07/24/23 08:59 Last Admin: 07/04/23 08:52 Dose: 20 meq Quetiapine Fumarate (Quetiapine Fumarate 25 Mg Tablet) 25 mg PO HS [facility] Stop: 07/24/23 20:59 Last Admin: 07/03/23 20:01 Dose: 25 mg Quetiapine Fumarate (Quetiapine Fumarate 25 Mg Tablet) 12.5 mg PO Q6H PRN PRN Reason: Anxiety Stop: 08/02/23 12:15 Saccharomyces Boulardii (Saccharomyces Boulardii 250 Mg Cap) 250 mg PO BID [facility] Stop: 07/24/23 08:59 Last Admin: 07/04/23 08:51 Dose: 250 mg Sucralfate (Sucralfate 1 Gm/10 Ml Udc) 1 gm PO QID [facility] Stop: 07/24/23 08:59 Last Admin: 07/04/23 17:03 Dose: 1 gm Venlafaxine HCl (Venlafaxine Hcl Xr 75 Mg Capxr) 75 mg PO QPM [facility] Stop: 07/24/23 20:59 Last Admin: 07/03/23 20:01 Dose: 75 mg Venlafaxine HCl (Venlafaxine Hcl Xr 150 Mg Capxr) 150 mg PO QPM [facility] Stop: 07/24/23 20:59 Last Admin: 07/03/23 20:01 Dose: 150 mg Vitamin D (Cholecalciferol 1,000 Units 25 Mcg Tab) 2,000 units PO DAILY [facility] Stop: 07/24/23 08:59 Last Admin: 07/04/23 08:52 Dose: 2,000 units
--- NOTE | 2023-07-04 19:16 | Billing Data ---
Date of Service July 04, 2023 Coding Level of Care Code 92470 SUB INP/OBS CARE MIN
[2023-07-04] MEDS: VENLAFAXINE HCL XR 150 MG CAPXR PO SCH (20:07)
[2023-07-04] MEDS: VENLAFAXINE HCL XR 75 MG CAPXR PO SCH (20:07)
[2023-07-04] MEDS: QUEtiapine FUMARATE 25 MG TABLET PO SCH (20:07)
--- NOTE | 2023-07-05 07:32 | Hospitalist Progress Note ---
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 History of cryptococcal meningitis (dx 02/2022) -Pt presenting with increase in auditory/visual hallucinations -ID consulted; recommended brain MRI which showed increased inflammation of her cerebellum -LP performed 06/30; CSF studies as per chart -CSF meningitis/encephalitis neg, serum cryptococcal Ag neg -Still awaiting crypto CSF studies -Bacterial blood cx neg; fungal blood cx neg -Began liposomal amphotericin (3mg/kg daily) and flucytosine (25 mg/kg QID) 06/25; d/c on 07/05 due to marrow suppression/worsening kidney function Anemia -Hgb 6.5 yesterday, repeat at noon Hgb 6.7. Today hgb at 8.6 -No signs of active bleed and vital signs reassuring -Suspect that drop in hemoglobin is secondary to bone marrow suppression from amphotericin/flucytosine -Blood consent obtained, transfused 1u PRBC Hallucinations -Likely multifactorial in the setting of cryptococcal meningitis, hospital induced delirium -Concern that there could also be an underlying psychiatric component -Psych consulted appreciate recommendations Hypomagnesium/Hypokalemia -Continue to replete as necessary -Continue to trend Drug-induced ALBINA -Restarted LR 100mL/hr; if Cr improves- hold fluids -Continue to monitor Insulin dependent diabetes mellitus -During previous hospitalization, basal insulin was decreased d/t hypoglycemic episodes -Basal insulin to 10 units BID -Continue SSI: goal 100-140, CF 50, CR 25 Anxiety -Continue home venlafaxine 150mg daily Paroxysmal afib -Continue metoprolol, Eliquis Cirrhosis -Stable; no acute decompensation Gastritis -Continue pantoprazole and sucralfate Will discuss with patient's son due to concern that she will likely need personal senior living/some level of assistance at discharge. Code status: full Diet: carb consistent DVT ppx: eliquis (2) Cryptococcal meningitis: (3) Uncontrolled type 2 diabetes mellitus with hyperglycemia, with long-term current use of insulin: (4) Anxiety: (5) Paroxysmal A-fib: (6) Cirrhosis of liver: (7) Hypomagnesemia: (8) Hypokalemia: (9) Gastritis: (10) Hypertension: Admission and Anticipated Discharge Date Admission Date: June 24, 2023 Supervising Physician Co-Signing Physician Notes I personally examined the patient and verified all fish points of history and exam, discussed case, and agree with decision making with Dr Scott some hallucinations and a little more paranoia and at the same time does seem to have some insight that she may not be that safe with herself at home, seems agreeable to considering personal care. Vitals noted, in general she is awake and alert pleasant no distress. HEENT normocephalic atraumatic mucous membranes moist. Breathing unlabored no accessory muscle use good effort. Skin shows no rashes no pallor or icterus. Cryptococcal meningitisIV antifungals now transitioned back to fluconazole. continue per ID management AKIprobably related to Amphotericinversus almost as likely but less likely flucytosinecontinue gentle IV fluids and followthis appears to have leveled out Acute anemiatransfused - more stable. follow Hallucinations/paranoiaprobably related to the infection itself, cannot rule out delirium or maybe even med side effectsbut again watchful waiting, supportive care. dispo - will need safe environment otherwise as above Subjective Patient comfortable and resting at bed. Notes ongoing hallucinations, did get more agitated this afternoon and received PRN seroquel. Denies abdominal pain, dizziness, lightheadedness Review of Systems Review of Systems: As per above Physical Exam Constitutional: well developed and well nourished; no acute distress Eyes: + conjunctival abnormality and + anicteric sclerae ENMT: Ears: no external ear abnormality Nose: no external nose abnormality Respiratory: normal respiratory effort, lungs clear to auscultation Cardiovascular: Rate/Rhythm: regular rate and regular rhythm Gastrointestinal (Abdomen): normal bowel sounds, soft, nontender, no hepatosplenomegaly Skin: no rashes, warm and dry Results & Data Results & Data Vital Signs (Past 12 Hours) Vital Signs Temp Pulse Pulse Resp BP BP Pulse Ox 07/05/23 07:19 36.9 C 68 18 121/75 98 07/04/23 20:30 07/04/23 21:51 36.8 C 70 16 118/73 97 07/04/23 20:05 36.8 C 68 16 110/71 100 07/04/23 20:05 36.8 C 68 16 110/71 100 O2 Del Method 07/05/23 07:19 Room Air 07/04/23 20:30 Room Air 07/04/23 21:51 07/04/23 20:05 07/04/23 20:05 Room Air Resident Activity Tracking Resident Involvement: Resident Care Provided Care Provided: Adult Hospital Medicine (10) Hypertension Hypertension type: essential hypertension Qualified Code(s): I10 - Essential (primary) hypertension
[2023-07-05] MEDS: MULTIVITAMIN TAB PO SCH (08:32)
[2023-07-05] MEDS: POTASSIUM CHLORIDE CRTAB 20 MEQ TABCR PO SCH (08:32)
[2023-07-05] MEDS: SUCRALFATE 1 GM/10 ML UDC PO SCH ×4 (08:32→22:07)
[2023-07-05] MEDS: CHOLECALCIFEROL 1,000 UNITS 25 MCG TAB PO SCH (08:33)
[2023-07-05] MEDS: FLUTICASONE PROPIONATE NA SPR 16 GM BTL SCH (08:33)
[2023-07-05] MEDS: APIXABAN 5 MG TABLET PO SCH ×2 (08:33→22:07)
[2023-07-05] MEDS: SACCHAROMYCES BOULARDII 250 MG CAP PO SCH ×2 (08:33→22:07)
[2023-07-05] MEDS: MAGNESIUM CHLORIDE W/CALCIUM 64MG DELAYED REL TAB PO SCH ×2 (08:33→22:08)
[2023-07-05] MEDS: METOPROLOL SUCC 25MG EXT REL TAB PO SCH ×2 (08:33→22:07)
[2023-07-05] MEDS: PANTOprazole 40 MG TAB PO SCH ×2 (08:33→22:07)
[2023-07-05] MEDS: INSULIN ASPART PER UNIT CHARGE SC SCH ×4 (08:35→22:08)
[2023-07-05] MEDS: LANTUS PER UNIT CHARGE SQ SCH ×2 (08:39→22:08)
[2023-07-05 09:42] LABS: Basophils # (auto) 0.03 K/uL (0.00-0.20); Basophils % (auto) 0.6 %; Eosinophils # (auto) 0.13 K/uL (0.00-0.50); Eosinophils % (auto) 2.4 %; Hematocrit (blood only) 24.1 % (37.0-47.0); Hemoglobin 8.6 g/dl (12.0-16.0); Immature Granulocytes # (auto) 0.02 K/uL (0.01-0.20); Immature Granulocytes % (auto) 0.4 %; Lymphocytes # (auto) 1.03 K/uL (1.20-3.40); Lymphocytes % (auto) 19.3 %; Mean Corpuscular Hgb Conc 35.7 g/dL (32.0-36.0); Mean Corpuscular Volume 81.1 fL (80.0-100.0); Mean Platelet Volume 10.6 fL (9.4-12.4); Monocytes # (auto) 0.34 K/uL (0.11-0.59); Monocytes % (auto) 6.4 %; Neutrophils # (auto) 3.78 K/uL (1.40-6.50); Neutrophils % (auto) 70.9 %; Platelet Count 177 K/uL (130-400); RDW Coefficient of Variation 15.6 % (11.5-14.5); Red Blood Count 2.97 M/uL (4.20-5.40); White Blood Count 5.33 K/ul (4.8-10.8)
[2023-07-05 10:01] LABS: Albumin Globulin Ratio 1.4 (0.9-2); Albumin Level 3.3 gm/dl (3.4-5.0); BUN Creatinine Ratio 30.3 (10-20); Bilirubin,Total 0.5 mg/dl (0.2-1.0); Calcium 8.5 mg/dl (8.6-10.3); Creatinine Clr Calc Pharmacy 40.2 ml/min; Est GFR (African American) 54.2 ml/min; Est GFR (Non-African American) 46.8 ml/min; Globulin 2.4 gm/dl (2.5-4.0); Magnesium 1.5 mg/dl (1.7-2.4); Potassium 3.4 mmol/L (3.5-5.1); Total Protein 5.7 gm/dl (6.0-8.3)
[2023-07-05] MEDS ORDERED: POTASSIUM CHLORIDE CRTAB 20 MEQ TABCR PO STA (11:15)
[2023-07-05] MEDS: MAGNESIUM SULFATE / D5W 1 GM/100 ML BAG IV SCH ×2 (12:24→14:52)
[2023-07-05] MEDS: QUEtiapine FUMARATE 25 MG TABLET PO PRN (17:26)
[2023-07-05] MEDS: FLUCONAZOLE 100 MG TAB PO SCH (17:26)
--- NOTE | 2023-07-05 19:26 | Billing Data ---
Date of Service July 05, 2023 Coding Level of Care Code 84865 SUB INP/OBS CARE MIN
[2023-07-05] MEDS: VENLAFAXINE HCL XR 150 MG CAPXR PO SCH (22:07)
[2023-07-05] MEDS: VENLAFAXINE HCL XR 75 MG CAPXR PO SCH (22:08)
[2023-07-05] MEDS: QUEtiapine FUMARATE 25 MG TABLET PO SCH (22:18)
--- NOTE | 2023-07-06 07:25 | Hospitalist Progress Note ---
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 History of cryptococcal meningitis (dx 02/2022) -Pt presenting with increase in auditory/visual hallucinations -ID consulted; recommended brain MRI which showed increased inflammation of her cerebellum -LP performed 06/30; CSF studies as per chart -CSF meningitis/encephalitis neg, serum cryptococcal Ag neg -Still awaiting crypto CSF final studies -Bacterial blood cx neg; fungal blood cx neg -Began liposomal amphotericin (3mg/kg daily) and flucytosine (25 mg/kg QID) 06/25; d/c on 07/05 due to marrow suppression/worsening kidney function -Continuing fluconazole per ID recommendations. -07/06: Discussed with patient's son goals of long-term placement- he notes that the family is hoping she would have placement with some level of assistance however she has been resistant to this in the past. -Updated case management who has now placed referrals to several personal c are facilities. Anemia -Hgb 6.5 on 07/04 -No signs of active bleed and vital signs reassuring -Suspect that drop in hemoglobin is secondary to bone marrow suppression from am photericin/flucytosine -Blood consent obtained, transfused 1u PRBC on 07/04 Hallucinations -Likely multifactorial in the setting of cryptococcal meningitis, hospital induced delirium -Concern that there could also be an underlying psychiatric component -Psych consulted appreciate recommendations Hypomagnesium/Hypokalemia -Continue to replete as necessary -Continue to trend -Potassium at 3.1 this morning. PO repletion due to agitation with IV currently. Drug-induced ALBINA -Restarted LR 100mL/hr; if Cr improves- hold fluids -Continue to monitor Insulin dependent diabetes mellitus -During previous hospitalization, basal insulin was decreased d/t hypoglycemic episodes -Basal insulin to 10 units BID -Continue SSI: goal 100-140, CF 50, CR 25 Anxiety -Continue home venlafaxine 150mg daily Paroxysmal afib -Continue metoprolol, Eliquis Cirrhosis -Stable; no acute decompensation Gastritis -Continue pantoprazole and sucralfate Code status: full Diet: carb consistent DVT ppx: eliquis (2) Cryptococcal meningitis: (3) Uncontrolled type 2 diabetes mellitus with hyperglycemia, with long-term current use of insulin: (4) Anxiety: (5) Paroxysmal A-fib: (6) Cirrhosis of liver: (7) Hypomagnesemia: (8) Hypokalemia: (9) Gastritis: (10) Hypertension: Admission and Anticipated Discharge Date Admission Date: June 24, 2023 Supervising Physician Co-Signing Physician Notes I personally examined the patient and verified all fish points of history and exam, discussed case, and agree with decision making with Dr Scott hallucinating. thinks her son and other family members are out on the roof in a cage. tried to discuss the reality of the situation with her as sometimes she seems to have some insight into what is real and what is hallucinatory/delusional - not today. Vitals noted, in general she is awake and upset about her son being in a cage on the roof. HEENT normocephalic atraumatic mucous membranes moist. Breathing unlabored no accessory muscle use good effort. Skin shows no rashes no pallor or icterus. Cryptococcal meningitisIV antifungals now transitioned back to fluconazole. continue per ID management. outpt ID f/u w primary ID specialist AKIprobably related to Amphotericinversus almost as likely but less likely flucytosineimproved Acute anemiatransfused - stable. follow Hallucinations/paranoiaprobably related to inflammation the infection itself and/or chronic changes from infection overall, cannot rule out delirium or maybe even med side effectsbut again watchful waiting, supportive care. dispo - will need safe environment (probably ideally [facility]) otherwise as above Subjective Patient seen and examined at bedside. Has had intermittent hallucinations, last night she pulled out her IV and was more agitated. Patient was resting in bed. Denies any current pain or lightheadedness. Review of Systems Review of Systems: As per above Physical Exam Constitutional: well developed and well nourished; no acute distress Eyes: + conjunctival abnormality and + anicteric sclerae ENMT: Ears: no external ear abnormality Nose: no external nose abnormality Respiratory: normal respiratory effort, lungs clear to auscultation Cardiovascular: Rate/Rhythm: regular rate and regular rhythm Gastrointestinal (Abdomen): normal bowel sounds, soft, nontender, no hepatosplenomegaly Skin: no rashes, warm and dry Psychiatric: Apperance: + disheveled Hallucinations: + visual hallucinations Results & Data Results & Data Vital Signs (Past 12 Hours) Vital Signs Temp Pulse Resp BP Pulse Ox O2 Del Method 07/06/23 03:18 36.8 C 74 16 137/78 100 Room Air 07/05/23 22:00 Room Air 07/05/23 19:34 36.8 C 65 16 106/64 99 Room Air Resident Activity Tracking Resident Involvement: Resident Care Provided Care Provided: Adult Hospital Medicine (10) Hypertension Hypertension type: essential hypertension Qualified Code(s): I10 - Essential (primary) hypertension
[2023-07-06 08:34] LABS: Basophils # (auto) 0.03 K/uL (0.00-0.20); Basophils % (auto) 0.6 %; Eosinophils % (auto) 1.9 %; Hematocrit (blood only) 24.8 % (37.0-47.0); Hemoglobin 8.6 g/dl (12.0-16.0); Immature Granulocytes # (auto) 0.02 K/uL (0.01-0.20); Immature Granulocytes % (auto) 0.4 %; Lymphocytes # (auto) 1.13 K/uL (1.20-3.40); Mean Corpuscular Hemoglobin 28.1 pg (25.0-34.0); Mean Corpuscular Hgb Conc 34.7 g/dL (32.0-36.0); Mean Platelet Volume 10.5 fL (9.4-12.4); Monocytes # (auto) 0.33 K/uL (0.11-0.59); Monocytes % (auto) 6.1 %; Neutrophils # (auto) 3.77 K/uL (1.40-6.50); Platelet Count 194 K/uL (130-400); RDW Coefficient of Variation 15.9 % (11.5-14.5); RDW Standard Deviation 45.7 fL (36.4-46.3); Red Blood Count 3.06 M/uL (4.20-5.40); White Blood Count 5.38 K/ul (4.8-10.8)
[2023-07-06] MEDS: INSULIN ASPART PER UNIT CHARGE SC SCH ×4 (08:38→20:50)
[2023-07-06] MEDS: SUCRALFATE 1 GM/10 ML UDC PO SCH ×4 (08:41→20:52)
[2023-07-06] MEDS: FLUTICASONE PROPIONATE NA SPR 16 GM BTL SCH (08:41)
[2023-07-06] MEDS: LANTUS PER UNIT CHARGE SQ SCH ×2 (08:41→20:51)
[2023-07-06] MEDS: CHOLECALCIFEROL 1,000 UNITS 25 MCG TAB PO SCH (08:42)
[2023-07-06] MEDS: APIXABAN 5 MG TABLET PO SCH ×2 (08:42→20:50)
[2023-07-06] MEDS: POTASSIUM CHLORIDE CRTAB 20 MEQ TABCR PO SCH (08:42)
[2023-07-06] MEDS: SACCHAROMYCES BOULARDII 250 MG CAP PO SCH ×2 (08:42→20:52)
[2023-07-06] MEDS: MULTIVITAMIN TAB PO SCH (08:42)
[2023-07-06] MEDS: METOPROLOL SUCC 25MG EXT REL TAB PO SCH ×2 (08:43→20:51)
[2023-07-06] MEDS: PANTOprazole 40 MG TAB PO SCH ×2 (08:43→20:51)
[2023-07-06] MEDS: MAGNESIUM CHLORIDE W/CALCIUM 64MG DELAYED REL TAB PO SCH ×2 (08:43→20:51)
[2023-07-06 09:08] LABS: Albumin Globulin Ratio 1.4 (0.9-2); Albumin Level 3.4 gm/dl (3.4-5.0); BUN Creatinine Ratio 31.2 (10-20); Bilirubin,Total 0.5 mg/dl (0.2-1.0); Calcium 8.5 mg/dl (8.6-10.3); Est GFR (African American) 62.1 ml/min; Est GFR (Non-African American) 53.6 ml/min; Globulin 2.4 gm/dl (2.5-4.0); Magnesium 1.6 mg/dl (1.7-2.4); Potassium 3.1 mmol/L (3.5-5.1); Total Protein 5.8 gm/dl (6.0-8.3)
[2023-07-06] MEDS ORDERED: POTASSIUM CHLORIDE CRTAB 20 MEQ TABCR PO STA (10:30)
[2023-07-06] MEDS ORDERED: POTASSIUM CHLORIDE / WTR 10 MEQ/100 ML PLCT IV SCH (10:30)
--- NOTE | 2023-07-06 14:19 | Infectious Disease Progress Nt ---
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 ID consulted for evaluation. Review of Dr. Huggins of [place] note from 12/02/22 states she initially diagnosed with cryptococcal meningitis in 02/2022 at [facility] and transferred to [facility]. She was treated with liposomal amphotericin and flucytosine through 03/16/22 followed by fluconazole 400mg daily for 8 weeks through 05/12/23. The she was changed to 200mg dailyon 05/13/22 for anticipated 1 year of therapy but in 07/17 dose was increased to 400mg daily d/t vertigo and hallucinations. There was d iscussion at that time to change to isavuconazole because of drug interaction. She was admitted to [facility] in 05/2023 for weakness. ID was not consulted during that time. Her weakness was thought to be secondary to episodic diarrhea from fluconazole. For her afib she was changed from warfarin to Eliquis. She was also diagnosed with UTI, Ucx grew mssa and ecoli. She received Cefdinir On 06/23 she returned to ED with her son as he was concerned for increasing hallucinations. He reported that since the patient was discharged she has been having increased hallucinations talking to people who are not there including pictures on her cell phone thinking they are real people. Her VSS, CMP normal, aphos slightly increased to 121. UA shows 10-30 wbcs UC + lactobacillus On initial exam, she appeared comfortable She denied hearing voices or seeing people but upon further discussion admitted that a picture spoke to her awhile ago. No FLOWERS, visual changes, neck stiffness. No fevers/chills/diarrhea/r rona/sob/cp PRIOR Pertinent labs HIV NR 03/02/22, Serum Crypto antigen positive 07/07/22, CSF cryto negative 07/07/22 05/31/23 Ucx>100,000 cfu/mL MSSA, 80,000 Ecoli panS 06/15/23 Ucx probable skin seda 06/15 Bcx sterile Micro this admission / CSF cx sterile 06/30 csf fungal cx ngtd 06/30 M/E panel negative, with C neoformans not detected by pcr 06/25 Serum Crypto antigen negative 06/25 BCx NGTD 06/23 Ucx lactobcillus sp 06/30 csf crypto ag not detected 06/30 crpto jackson/gat pcr (part of csf biofire panel) not detected antifungal fluc; on admission - 06/25 amph B 06/25- 07/05 flucytosine 06/25- 07/05 #Cryptococcal meningitis s/p induction and consolidation now on maintenance (HIV negative) #Visual/auditory hallucinations #Afib Discussion: She does have a history hallucinations which is unclear if this preceded her cryptococcal diagnosis. 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 Findings likely correlate with the reported history of meningitis. She is followed by Srinivasa DOUGLAS outpatient. [facility] group made recson 06/25 ( Dr Huggins) after viewing MRI head results to begin liposomal amphotericin B and flucytosine ; with plan to start prior auth for outpatient voriconazole ( d/t ? tx failure and intolerance with fluconazole) with plan for LP 06/30 ID connect initially saw pt 06/24 but signed off 06/27 as STELLA bhardwaj requested Consult and knew pt longitudinally. Documentation per Dr Huggins 06/30 It appears covering ID Srinivasa attending, Dr Roxanne Becker will not be seeing patient. STELLA giordano reconsulted , I called [facility] group to clarify their plan for this patient. I discussed with covering ID fellow (Dr Gustafson- fellow concrete mixer operator) . Per his conversation, with Dr Becker and Bhavna they will not be seeing pt at [facility] and asked ID connect to continue to follow inpatient. LP done 06/30 with 0 and 1 WBC. crypto ag neg. CSF fungal cx P, Serum crypto ag not detected CSF crypto PCR not detected 07/01 denies headache, feels better. I called and discussed case with her ID provider Dr Huggins. Agree to continue Liposoma Amph B/flucyto pending CSF crypto ag and fungal cx results. If negative, plan to put back on fluconazole ( 400 mg daily ). 07/04 anemia and cr up. discontinued amph b/flucyto as may be contributing an crypto serum and csf ag negative . Recommend: I doubt recurrence/relapse of crypto while she was on suppression. Serum and CSF ag neg. crypto csf pcr not deteccted Csf fungal cx pending ampho/flu st opped 07/04, cr and H/H improved. -FU CSF fungal cx -CHECK EKG, to make sure her qtc is LESS <500 -cr improved, switched back to her home maint dose of fluconazole- 400 qday - left message for Dr Huggins ( has not yet responded) - she will need close follow up with her ID provider post dc ID connect will sign off D/w team Eliza Jameson MD, MPH Infectious Disease [facility], ID Division Call [phone] with questions Admission and Anticipated Discharge Date Admission Date: June 24, 2023 Subjective Subsequent visit was provided via telemedicine using two-way real-time interactive telecommunication between the patient and the telemedicine provider. For the duration of the visit, the provider was performing the assessment from a different facility than the patient. This includesuse of bluetooth stethoscope forauscultationperformed by the telepresenter that the telemedicine provider can hear if described in the physical exam. Roundhouse Worker contact information: Please call [facility] Call Center [phone]. (Phone Number For Physician Use Only) After establishing a telemedicine visit, patient was: Patient was verified with two unique identifiers and Patient/authorized rep acknowledged consent and understanding Time Spent with Patient: Subsequent => 25 min complains of abdominal pain . Denies neck pain or eye pressure Physical Exam Physical Exam: NAD, comfortable, sitting up in bed Anicteric sclera, supple neck, no meningmus soft, nt ab No increased work of breathing AAO*3 No rash Results & Data Vital Signs (Past 12 Hours) Vital Signs Temp Pulse Resp BP Pulse Ox O2 Del Method 07/06/23 08:45 63 113/70 07/06/23 07:30 36.7 C 61 16 113/67 98 Room Air 07/06/23 03:18 36.8 C 74 16 137/78 100 Room Air Laboratory Results Short CBC 07/06/23 Range/Units 08:10 WBC 5.38 (4.8-10.8) K/ul Hgb 8.6 L (12.0-16.0) g/dl Hct 24.8 L (37.0-47.0) % Plt Count 194 (130-400) K/uL BMP 07/06/23 08:10 Sodium 143 Potassium 3.1 L Chloride 115 H Carbon Dioxide 21 BUN 34 H Creatinine 1.09 Glucose 122 H Calcium 8.5 L Liver Function 07/06/23 Range/Units 08:10 Total Bilirubin 0.5 (0.2-1.0) mg/dl AST 43 H (13-39) U/L ALT 23 (7-52) U/L Alkaline Phosphatase 113 H (34-104) U/L Albumin 3.4 (3.4-5.0) gm/dl Diagnostic Findings Microbiology 06/30/23 09:41 Cerebral Spinal Fluid Fungal Culture - Preliminary No yeast or fungus isolated - Report 1, Additional Report to Follow. 06/25/23 17:04 Blood Fungal Smear - Final 06/25/23 17:04 Blood Fungal Culture - Preliminary No yeast or fungus isolated - Report 2, Additional report to follow. 06/30/23 09:41 Cerebral Spinal Fluid Gram Stain - Final 06/30/23 09:41 Cerebral Spinal Fluid CSF Culture - Final No growth 06/30/23 09:41 Cerebral Spinal Fluid Acid Fast Bacilli Smear - Final 06/25/23 17:04 Blood Aerobic Blood Culture - Final No growth in Aerobic bottle after 5 days. 06/25/23 17:04 Blood Anaerobic Blood Culture - Final No growth in Anaerobic bottle after 5 days. 06/25/23 17:15 Blood Aerobic Blood Culture - Final No growth in Aerobic bottle after 5 days. 06/25/23 17:15 Blood Anaerobic Blood Culture - Final No growth in Anaerobic bottle after 5 days. 06/23/23 23:20 Urine,Clean Catch Urine Culture - Final Lactobacillus species Medications Administered Home Medications Medication Instructions Recorded Confirmed Last Taken multivitamin 1 tab PO QAM 09/07/19 06/23/23 10/25/22 Contour Next Test Strips (blood #300 ea 12/29/20 06/23/23 Unknown sugar diagnostic) insulin aspart U-100 100 unit/mL See Rx Instructions subcut TIDM 06/29/22 06/23/23 Unknown (3 mL) subcutaneous pen fluconazole 200 mg tablet 400 mg PO DAILY 11/05/22 06/23/23 11/09/22 05:00 cholecalciferol (vitamin D3) 50 2,000 unit PO DAILY #90 caps 02/10/23 06/23/23 Unknown mcg (2,000 unit) capsule cetirizine 10 mg capsule (Zyrtec) 10 mg PO DAILY allergy symptoms 02/25/23 06/23/23 Unknown #90 caps betamethasone dipropionate 0.05 % 1 applic topical TID PRN skin 04/08/23 06/23/23 Unknown lotion irritation #60 mL venlafaxine 150 mg 150 mg PO QPM #1 cap 04/14/23 06/23/23 11/08/22 capsule,extended release 24 hr (Effexor XR) diphenhydramine HCl 25 mg capsule 25 mg PO TID PRN Allergy Symptoms 04/22/23 06/23/23 Unknown (Allergy (diphenhydramine)) potassium chloride 20 mEq 20 meq PO QAM #90 tabs 04/22/23 06/23/23 Unknown tablet,extended release quetiapine 25 mg tablet 25 mg PO HS #30 tabs 05/16/23 06/23/23 Unknown fluticasone propionate 50 1 spray intranasal DAILY #16 grams 05/20/23 06/23/23 Unknown mcg/actuation nasal spray,suspension (Flonase Allergy Relief) Saccharomyces boulardii 250 mg 250 mg PO BID #20 caps 05/31/23 06/23/23 Unknown capsule (Florastor) pantoprazole 40 mg tablet,delayed 40 mg PO BID #180 tabs 06/01/23 06/23/23 Unknown release sucralfate 100 mg/mL oral 10 ml PO QID #420 mL 06/14/23 06/23/23 Unknown suspension (Carafate) promethazine 12.5 mg tablet 12.5 mg PO TID PRN nausea and 06/15/23 06/23/23 Unknown vomiting #30 tabs apixaban 5 mg tablet (Eliquis) 5 mg PO BID #60 tabs 06/21/23 06/23/23 Unknown furosemide 20 mg tablet 20 mg PO QAM PRN volume overload 06/21/23 06/23/23 11/08/22 or weight gain #30 tabs insulin glargine 100 unit/mL (3 15 unit (0.15 mL) subcut AMPM #12 06/21/23 06/23/23 Unknown mL) subcutaneous pen (Lantus mL Solostar U-100 Insulin) magnesium chloride 64 mg 64 mg PO BID #60 tabs 06/21/23 06/23/23 Unknown (magnesium chloride) tablet,delayed release (Mag 64) metoprolol succinate 25 mg 25 mg PO BID #60 tabs 06/21/23 06/23/23 Unknown tablet,extended release 24 hr venlafaxine 75 mg capsule,extended 75 mg PO QPM #30 caps 06/21/23 06/23/23 Unknown release 24 hr meclizine 12.5 mg tablet 12.5 mg PO QAM #30 tabs 06/23/23 06/23/23 Unknown Active Medications Generic Name Dose Route Start Last Admin Trade Name Freq PRN Reason Stop Dose Admin Acetaminophen 650 mg 07/03/23 14:16 07/03/23 20:01 Acetaminophen 325 Mg Tab PO 08/02/23 14:15 650 mg Q8H PRN Administration Pain/headache Apixaban 5 mg 06/24/23 09:00 07/06/23 08:42 Apixaban 5 Mg Tablet PO 07/24/23 08:59 5 mg BID HALEY Administration Fluticasone Propionate 1 sprays 06/24/23 09:00 07/06/23 08:41 Fluticasone Propionate Na Spr 16 Gm Btl NA 07/24/23 08:59 1 sprays DAILY HALEY Administration Lactated Ringer's 1,000 mls @ 100 mls/hr 06/26/23 10:00 07/04/23 12:54 Lr IV 07/26/23 09:59 0 mls/hr .Q10H HALEY Infusion Insulin Aspart 0 units 06/24/23 07:30 07/06/23 12:25 Insulin Aspart Per Unit Charge SC 07/24/23 07:29 Not Given ACHS HALEY Insulin Glargine 10 units 06/29/23 09:00 07/06/23 08:41 Lantus Per Unit Charge SQ 07/29/23 08:59 10 units BID HALEY Administration Magnesium Chloride 64 mg 06/24/23 09:00 07/06/23 08:43 Magnesium Chloride W/Calcium 64mg Delayed Rel Tab PO 07/24/23 08:59 64 mg BID HALEY Administration Meclizine HCl 12.5 mg 06/24/23 09:00 07/03/23 08:24 Meclizine 12.5 Mg Tab PO 07/24/23 08:59 12.5 mg QAM HALEY Administration Metoprolol Succinate 25 mg 06/24/23 09:00 07/06/23 08:43 Metoprolol Succ 25mg Ext Rel Tab PO 07/24/23 08:59 25 mg BID HALEY Administration Miscellaneous 15 - 30 gm 06/24/23 02:24 06/29/23 07:54 Carbohydrates For Hypoglycemia PO 07/24/23 02:23 15 gm UD PRN Administration Hypoglycemia Protocol Miscellaneous 1 each 06/27/23 21:00 07/05/23 22:09 Remove Lidoderm Patch N/A 07/27/23 20:59 Not Given DAILY@2100 [facility] Multivitamins 1 tab 06/24/23 09:00 07/06/23 08:42 Multivitamin Tab PO 07/24/23 08:59 1 tab QAM HALEY Administration Ondansetron HCl 4 mg 06/24/23 02:24 06/28/23 11:34 Ondansetron 4 Mg Od Tab PO 07/24/23 02:23 4 mg Q6H PRN Administration Nausea Pantoprazole Sodium 40 mg 06/24/23 09:00 07/06/23 08:43 Pantoprazole 40 Mg Tab PO 07/24/23 08:59 40 mg BID HALEY Administration Potassium Chloride 20 meq 06/24/23 09:00 07/06/23 08:42 Potassium Chloride Crtab 20 Meq Tabcr PO 07/24/23 08:59 20 meq QAM HALEY Administration Quetiapine Fumarate 25 mg 06/24/23 21:00 07/05/23 22:18 Quetiapine Fumarate 25 Mg Tablet PO 07/24/23 20:59 25 mg HS HALEY Administration Quetiapine Fumarate 12.5 mg 07/03/23 12:16 07/05/23 17:26 Quetiapine Fumarate 25 Mg Tablet PO 08/02/23 12:15 12.5 mg Q6H PRN Administration Anxiety Saccharomyces Boulardii 250 mg 06/24/23 09:00 07/06/23 08:42 Saccharomyces Boulardii 250 Mg Cap PO 07/24/23 08:59 250 mg BID HALEY Administration Sucralfate 1 gm 06/24/23 09:00 07/06/23 13:25 Sucralfate 1 Gm/10 Ml Udc PO 07/24/23 08:59 1 gm QID HALEY Administration Venlafaxine HCl 75 mg 06/24/23 21:00 07/05/23 22:08 Venlafaxine Hcl Xr 75 Mg Capxr PO 07/24/23 20:59 75 mg QPM HALEY Administration Venlafaxine HCl 150 mg 06/24/23 21:00 07/05/23 22:07 Venlafaxine Hcl Xr 150 Mg Capxr PO 07/24/23 20:59 150 mg QPM HALEY Administration Vitamin D 2,000 units 06/24/23 09:00 07/06/23 08:42 Cholecalciferol 1,000 Units 25 Mcg Tab PO 07/24/23 08:59 2,000 units DAILY HALEY Administration
--- NOTE | 2023-07-06 16:28 | Electrocardiogram Report ---
Test Reason : Blood Pressure : / mmHG Vent. Rate : 064 BPM Atrial Rate : 064 BPM P-R Int : 118 ms QRS Dur : 108 ms QT Int : 406 ms P-R-T Axes : 044 -29 064 degrees QTc Int : 418 ms Normal sinus rhythm Incomplete left bundle block Borderline ECG When compared with ECG of 23-JUN-2023 21:48, T wave inversion no longer evident in Lateral leads Confirmed by Joe Seaman ([id number]) on 07/06/2023 4:27:59 PM Referred By: REFERRED SELF Confirmed By:Joe Seaman
[2023-07-06] MEDS ORDERED: FLUCONAZOLE 100 MG TAB PO SCH (17:30)
[2023-07-06] MEDS: FLUCONAZOLE 100 MG TAB PO SCH (17:42)
--- NOTE | 2023-07-06 19:41 | Billing Data ---
Date of Service July 06, 2023 Coding Level of Care Code 82634 SUB INP/OBS CARE MIN
[2023-07-06] MEDS: QUEtiapine FUMARATE 25 MG TABLET PO SCH (20:51)
[2023-07-06] MEDS: VENLAFAXINE HCL XR 150 MG CAPXR PO SCH (20:52)
[2023-07-06] MEDS: VENLAFAXINE HCL XR 75 MG CAPXR PO SCH (20:52)
--- NOTE | 2023-07-07 07:22 | Hospitalist Progress Note ---
Date of Service July 07, 2023 Assessment & Plan (1) Hallucinations: Plan: Lynne Ye is 63 year-old female with PMH of cryptococcal meningitis w/ associated auditory/visual hallucinations, cirrhosis, DM2, afib, hypomagnesemia, hypokalemia, HLD, peripheral edema, anxiety, depression, gastritis, and HTN presenting with an increase in her hallucinations. History of cryptococcal meningitis (dx 02/2022) -Pt presenting with increase in auditory/visual hallucinations -ID consulted; recommended brain MRI which showed increased inflammation of her cerebellum -LP performed 06/30; CSF studies as per chart -CSF meningitis/encephalitis neg, serum cryptococcal Ag neg -Still awaiting crypto CSF final studies -Bacterial blood cx neg; fungal blood cx neg -Began liposomal amphotericin (3mg/kg daily) and flucytosine (25 mg/kg QID) 06/25; d/c on 07/05 due to marrow suppression/worsening kidney function -Continuing fluconazole 400 per ID recommendations. -07/06: Discussed with patient's son goals of long-term placement- he notes that the family is hoping she would have placement with some level of assistance however she has been resistant to this in the past. -07/07: Case management in contact with patient's son, Sushant, and referrals placed to several personal care facilities. Anemia -Hgb 6.5 on 07/04 -No signs of active bleed and vital signs reassuring -Suspect that drop in hemoglobin is secondary to bone marrow suppression from amphotericin/flucytosine -Blood consent obtained, transfused 1u PRBC on 07/04 -Hgb has been stable at 8.6 for the past three days Hallucinations -Likely multifactorial in the setting of cryptococcal meningitis, hospital induced delirium -Concern that there could also be an underlying psychiatric component -Psych consulted appreciate recommendations -07/07: Discussed with Dr. Wayne, recommended increasing Seroquel qhs to 50mg and watching BP. Hypomagnesium/Hypokalemia -Continue to replete as necessary -Continue to trend -Potassium at 3.0 this morning. PO repletion ordered. Drug-induced ALBINA -Restarted LR 100mL/hr; if Cr improves- hold fluids -Continue to monitor Insulin dependent diabetes mellitus -During previous hospitalization, basal insulin was decreased d/t hypoglycemic episodes -Basal insulin to 10 units BID -Continue SSI: goal 100-140, CF 50, CR 25 Anxiety -Continue home venlafaxine 150mg daily Paroxysmal afib -Continue metoprolol, Eliquis Cirrhosis -Stable; no acute decompensation Gastritis -Continue pantoprazole and sucralfate -Had some diarrhea this morning, symptoms improved with 1 dose of imodium. Code status: full Diet: carb consistent DVT ppx: eliquis (2) Cryptococcal meningitis: (3) Uncontrolled type 2 diabetes mellitus with hyperglycemia, with long-term current use of insulin: (4) Anxiety: (5) Paroxysmal A-fib: (6) Cirrhosis of liver: (7) Hypomagnesemia: (8) Hypokalemia: (9) Gastritis: (10) Hypertension: Admission and Anticipated Discharge Date Admission Date: June 24, 2023 Supervising Physician Co-Signing Physician Notes I personally examined the patient and verified all fish points of history and exam, discussed case, and agree with decision making with Dr Scott Other than relating that she thought her discharge plan was to go to [place], she seems much more lucid and coherent today. Not hallucinating, but in discussion she still felt that yesterday's episode was quite real. Vitals noted, in general she is awake and upset about her son being in a cage on the roof. HEENT normocephalic atraumatic mucous membranes moist. Breathing unlabored no accessory muscle use good effort. Skin shows no rashes no pallor or icterus. Cryptococcal meningitisIV antifungals now transitioned back to fluconazole. continue per ID management. outpt ID f/u w primary ID specialist AKIprobably related to Amphotericinversus almost as likely but less likely flucytosineimproved Acute anemiatransfused - stable. follow Hallucinations/paranoiaprobably related to inflammation the infection itself and/or chronic changes from infection overall, cannot rule out delirium or maybe even med side effectsbut again watchful waiting, supportive care, Increase Seroquel (appreciate psychiatry recommendations). dispo - will need safe environment ([facility] seems best fit) otherwise as above Subjective Patient seen and examined at bedside. Patient was a bit upset this morning, states she is concerned the placement we are looking at is in [place]. Patient states "I might be mixed up a bit". Patient notes some abdominal bloating, had some looser stool this morning. Review of Systems Review of Systems: As per above Physical Exam Constitutional: well developed and well nourished Eyes: + conjunctival abnormality and + anicteric sclerae ENMT: Ears: no external ear abnormality Nose: no external nose abnormality Respiratory: normal respiratory effort, lungs clear to auscultation Cardiovascular: Rate/Rhythm: regular rate and regular rhythm Gastrointestinal (Abdomen): Abdomen soft, non-distended. Some non-localized discomfort with palpation. Skin: no rashes, warm and dry Psychiatric: Apperance: + disheveled Hallucinations: + visual hallucinations Results & Data Results & Data Vital Signs (Past 12 Hours) Vital Signs Temp Pulse Resp BP Pulse Ox Pulse Ox O2 Del Method 07/06/23 22:00 96 07/06/23 20:29 36.6 C 71 18 150/83 H 100 Room Air O2 Del Method 07/06/23 22:00 Room Air 07/06/23 20:29 Resident Activity Tracking Resident Involvement: Resident Care Provided Care Provided: Adult Hospital Medicine (10) Hypertension Hypertension type: essential hypertension Qualified Code(s): I10 - Essential (primary) hypertension
[2023-07-07] MEDS: INSULIN ASPART PER UNIT CHARGE SC SCH ×4 (08:41→20:36)
[2023-07-07] MEDS: SACCHAROMYCES BOULARDII 250 MG CAP PO SCH ×2 (08:45→20:26)
[2023-07-07] MEDS: POTASSIUM CHLORIDE CRTAB 20 MEQ TABCR PO SCH (08:45)
[2023-07-07] MEDS: PANTOprazole 40 MG TAB PO SCH ×2 (08:45→20:27)
[2023-07-07] MEDS: MULTIVITAMIN TAB PO SCH (08:45)
[2023-07-07] MEDS: APIXABAN 5 MG TABLET PO SCH ×2 (08:46→20:27)
[2023-07-07] MEDS: CHOLECALCIFEROL 1,000 UNITS 25 MCG TAB PO SCH (08:46)
[2023-07-07] MEDS: FLUTICASONE PROPIONATE NA SPR 16 GM BTL SCH (08:46)
[2023-07-07] MEDS: MAGNESIUM CHLORIDE W/CALCIUM 64MG DELAYED REL TAB PO SCH ×2 (08:46→20:27)
[2023-07-07] MEDS: METOPROLOL SUCC 25MG EXT REL TAB PO SCH ×2 (08:46→20:27)
[2023-07-07] MEDS: SUCRALFATE 1 GM/10 ML UDC PO SCH ×4 (08:49→20:26)
[2023-07-07] MEDS: LANTUS PER UNIT CHARGE SQ SCH ×2 (08:54→20:35)
[2023-07-07 09:19] LABS: Basophils # (auto) 0.03 K/uL (0.00-0.20); Basophils % (auto) 0.5 %; Eosinophils # (auto) 0.13 K/uL (0.00-0.50); Eosinophils % (auto) 2.3 %; Hematocrit (blood only) 24.8 % (37.0-47.0); Hemoglobin 8.6 g/dl (12.0-16.0); Immature Granulocytes # (auto) 0.01 K/uL (0.01-0.20); Immature Granulocytes % (auto) 0.2 %; Lymphocytes # (auto) 1.15 K/uL (1.20-3.40); Lymphocytes % (auto) 20.7 %; Mean Corpuscular Hemoglobin 28.6 pg (25.0-34.0); Mean Corpuscular Hgb Conc 34.7 g/dL (32.0-36.0); Mean Corpuscular Volume 82.4 fL (80.0-100.0); Mean Platelet Volume 10.2 fL (9.4-12.4); Monocytes # (auto) 0.34 K/uL (0.11-0.59); Monocytes % (auto) 6.1 %; Neutrophils % (auto) 70.2 %; Platelet Count 199 K/uL (130-400); RDW Coefficient of Variation 16.5 % (11.5-14.5); RDW Standard Deviation 48.6 fL (36.4-46.3); Red Blood Count 3.01 M/uL (4.20-5.40); White Blood Count 5.56 K/ul (4.8-10.8)
[2023-07-07 09:38] LABS: Albumin Globulin Ratio 1.4 (0.9-2); Albumin Level 3.6 gm/dl (3.4-5.0); BUN Creatinine Ratio 25.2 (10-20); Bilirubin,Total 0.5 mg/dl (0.2-1.0); Calcium 8.8 mg/dl (8.6-10.3); Creatinine Clr Calc Pharmacy 45.9 ml/min; Est GFR (African American) 63.5 ml/min; Est GFR (Non-African American) 54.8 ml/min; Globulin 2.5 gm/dl (2.5-4.0); Magnesium 1.3 mg/dl (1.7-2.4); Total Protein 6.1 gm/dl (6.0-8.3)
[2023-07-07] MEDS ORDERED: LOPERAMIDE HCL 2 MG CAP PO STA (10:54)
[2023-07-07] MEDS ORDERED: POTASSIUM CHLORIDE CRTAB 20 MEQ TABCR PO STA (13:07)
--- NOTE | 2023-07-07 16:39 | Communication Note ---
Date of Service: July 07, [address] Scott and liaison as remains generally cooperative with overall care but breakthrough molina and general disorganization. Patients was previously resistant to increase in Seroquel and doesn't request prn during daytime. Suggest increase to 50 mg SEroquel hs.
[2023-07-07] MEDS: ONDANSETRON 4 MG OD TAB PO PRN (16:44)
[2023-07-07] MEDS: FLUCONAZOLE 100 MG TAB PO SCH (16:44)
--- NOTE | 2023-07-07 18:32 | Billing Data ---
Date of Service July 07, 2023 Coding Level of Care Code 43256 SUB INP/OBS CARE
[2023-07-07] MEDS ORDERED: COUGH DROP (SUGAR FREE) LOZ 24 LOZ/1 BOX BUCCAL PRN (19:31)
[2023-07-07] MEDS: VENLAFAXINE HCL XR 75 MG CAPXR PO SCH (20:26)
[2023-07-07] MEDS: VENLAFAXINE HCL XR 150 MG CAPXR PO SCH (20:26)
[2023-07-07] MEDS: QUEtiapine FUMARATE 25 MG TABLET PO SCH (20:27)
--- NOTE | 2023-07-08 07:26 | Hospitalist Progress Note ---
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 History of cryptococcal meningitis (dx 02/2022) -Pt presenting with increase in auditory/visual hallucinations -ID consulted; recommended brain MRI which showed increased inflammation of her cerebellum -LP performed 06/30; CSF studies as per chart -CSF meningitis/encephalitis neg, serum cryptococcal Ag neg -Still awaiting crypto CSF final studies -Bacterial blood cx neg; fungal blood cx neg -Began liposomal amphotericin (3mg/kg daily) and flucytosine (25 mg/kg QID) 06/25; d/c on 07/05 due to marrow suppression/worsening kidney function -Continuing fluconazole 400 per ID recommendations. -07/06: Discussed with patient's son goals of long-term placement- he notes that the family is hoping she would have placement with some level of assistance however she has been resistant to this in the past. -07/07: Case management in contact with patient's son, Sushant, and referrals placed to several personal care facilities. Anemia -Hgb 6.5 on 07/04 -No signs of active bleed and vital signs reassuring -Suspect that drop in hemoglobin is secondary to bone marrow suppression from amphotericin/flucytosine -Blood consent obtained, transfused 1u PRBC on 07/04 -Hgb has been stable at 8.6 for the past three days Hallucinations -Likely multifactorial in the setting of cryptococcal meningitis, hospital induced delirium -Concern that there could also be an underlying psychiatric component -Psych consulted appreciate recommendations -07/07: Discussed with Dr. Wayne, recommended increasing Seroquel qhs to 50mg and watching BP. Abdominal Pain -Had diarrhea and abdominal cramps on 07/07, resolved with 1 dose of imodium -Today (07/08), has noted more abdominal pain which is not localized. Also endorses nausea. -Suspect that her discomfort could be related to constipation (?overflow diarrhea on 07/07) -Started Miralax TID to help with constipation and antiemetics PRN -Will follow clinically Hypomagnesium/Hypokalemia -Continue to replete as necessary -Continue to trend -Potassium at 3.9 this morning. Drug-induced ALBINA -Restarted LR 100mL/hr; if Cr improves- hold fluids -Continue to monitor Insulin dependent diabetes mellitus -During previous hospitalization, basal insulin was decreased d/t hypoglycemic episodes -Basal insulin to 10 units BID -Continue SSI: goal 100-140, CF 50, CR 25 Anxiety -Continue home venlafaxine 150mg daily Paroxysmal afib -Continue metoprolol, Eliquis Cirrhosis -Stable; no acute decompensation Gastritis -Continue pantoprazole and sucralfate Code status: full Diet: carb consistent DVT ppx: eliquis (2) Cryptococcal meningitis: (3) Uncontrolled type 2 diabetes mellitus with hyperglycemia, with long-term current use of insulin: (4) Anxiety: (5) Paroxysmal A-fib: (6) Cirrhosis of liver: (7) Hypomagnesemia: (8) Hypokalemia: (9) Gastritis: (10) Hypertension: Admission and Anticipated Discharge Date Admission Date: June 24, 2023 Supervising Physician Co-Signing Physician Notes I personally examined the patient and verified all fish points of history and exam, discussed case, and agree with decision making with Dr Scott Some abdominal painright-sided predominance. Hard to describe. Does not think it is constipationnotes that she is having some stools, although on clarification they are softer or more liquid. Vitals noted, in general she is awake and upset about her son being in a cage on the roof. HEENT normocephalic atraumatic mucous membranes moist. Breathing unlabored no accessory muscle use good effort. Skin shows no rashes no pallor or icterus. Abdomen soft diffuse tenderness may be worst right-sided but no guarding rebound or rigidity and is tender everywhere. Cryptococcal meningitisIV antifungals now transitioned back to fluconazole. continue per ID management. outpt ID f/u w primary ID specialist AKIprobably related to Amphotericinversus almost as likely but less likely flucytosineimproved Abdominal painetiology not quite clearwith diffuse distended and diffuse tender abdomen, I do wonder about constipation and her diarrhea is overflow. Certainly peptic ulcer disease or biliary pathology are on the differential although lower. Doubt side effect to flucytosine or Amphotericin now that this is happening for the first time today and she has been off of those for days. Could be GI intolerance to fluconazole but she has been on it before. Serial exams, supportive care. Would utilize MiraLAX 17 g 3 times daily off of a working diagnosis of constipation mediated abdominal pain with overflow diarrhea. Continue to follow closely. Acute anemiatransfused - stable. follow Hallucinations/paranoiaprobably related to inflammation the infection itself and/or chronic changes from infection overall, cannot rule out delirium or maybe even med side effectsbut again watchful waiting, supportive care, Increased Seroquel (appreciate psychiatry recommendations). dispo - will need safe environment ([facility] seems best fit) otherwise as above Subjective Patient seen and examined at bedside. She notes her stomach was hurting/cramping this morning, later this afternoon also complained of nausea. Review of Systems Review of Systems: As per above Physical Exam Constitutional: well developed and well nourished; no acute distress Eyes: + conjunctival abnormality and + anicteric sclerae ENMT: Ears: no external ear abnormality Nose: no external nose abnormality Respiratory: normal respiratory effort, lungs clear to auscultation Cardiovascular: Rate/Rhythm: regular rate and regular rhythm Gastrointestinal (Abdomen): Abdomen soft, nondistended. Generalized tenderness with palpation. Skin: no rashes, warm and dry Psychiatric: Apperance: + disheveled Hallucinations: + visual hallucinations Results & Data Results & Data Vital Signs (Past 12 Hours) Vital Signs Temp Pulse Resp BP Pulse Ox Pulse Ox O2 Del Method 07/07/23 22:00 97 07/07/23 21:39 36.9 C 66 18 116/64 97 Room Air O2 Del Method 07/07/23 22:00 Room Air 07/07/23 21:39 Resident Activity Tracking Resident Involvement: Resident Care Provided Care Provided: Adult Hospital Medicine (10) Hypertension Hypertension type: essential hypertension Qualified Code(s): I10 - Essential (primary) hypertension
[2023-07-08] MEDS: APIXABAN 5 MG TABLET PO SCH ×2 (08:38→21:24)
[2023-07-08] MEDS: MAGNESIUM CHLORIDE W/CALCIUM 64MG DELAYED REL TAB PO SCH ×2 (08:38→21:24)
[2023-07-08] MEDS: CHOLECALCIFEROL 1,000 UNITS 25 MCG TAB PO SCH (08:39)
[2023-07-08] MEDS: SACCHAROMYCES BOULARDII 250 MG CAP PO SCH ×2 (08:39→21:24)
[2023-07-08] MEDS: PANTOprazole 40 MG TAB PO SCH ×2 (08:39→21:23)
[2023-07-08] MEDS: MULTIVITAMIN TAB PO SCH (08:39)
[2023-07-08] MEDS: FLUTICASONE PROPIONATE NA SPR 16 GM BTL SCH (08:39)
[2023-07-08] MEDS: METOPROLOL SUCC 25MG EXT REL TAB PO SCH ×2 (08:45→21:23)
[2023-07-08] MEDS: POTASSIUM CHLORIDE CRTAB 20 MEQ TABCR PO SCH (08:46)
[2023-07-08] MEDS: LANTUS PER UNIT CHARGE SQ SCH ×2 (09:09→21:28)
[2023-07-08] MEDS: INSULIN ASPART PER UNIT CHARGE SC SCH ×4 (09:09→21:34)
[2023-07-08 09:59] LABS: Basophils # (auto) 0.03 K/uL (0.00-0.20); Basophils % (auto) 0.5 %; Eosinophils # (auto) 0.15 K/uL (0.00-0.50); Eosinophils % (auto) 2.6 %; Hematocrit (blood only) 24.9 % (37.0-47.0); Hemoglobin 8.2 g/dl (12.0-16.0); Immature Granulocytes # (auto) 0.02 K/uL (0.01-0.20); Immature Granulocytes % (auto) 0.3 %; Lymphocytes # (auto) 1.25 K/uL (1.20-3.40); Lymphocytes % (auto) 21.6 %; Mean Corpuscular Hemoglobin 27.9 pg (25.0-34.0); Mean Corpuscular Hgb Conc 32.9 g/dL (32.0-36.0); Mean Corpuscular Volume 84.7 fL (80.0-100.0); Mean Platelet Volume 10.9 fL (9.4-12.4); Monocytes # (auto) 0.52 K/uL (0.11-0.59); Neutrophils # (auto) 3.81 K/uL (1.40-6.50); Platelet Count 189 K/uL (130-400); RDW Coefficient of Variation 17.2 % (11.5-14.5); RDW Standard Deviation 50.4 fL (36.4-46.3); Red Blood Count 2.94 M/uL (4.20-5.40); White Blood Count 5.78 K/ul (4.8-10.8)
[2023-07-08 10:23] LABS: Potassium 3.9 mmol/L (3.5-5.1)
[2023-07-08 10:24] LABS: Albumin Globulin Ratio 1.4 (0.9-2); Albumin Level 3.6 gm/dl (3.4-5.0); BUN Creatinine Ratio 19.3 (10-20); Bilirubin,Total 0.5 mg/dl (0.2-1.0); Calcium 8.9 mg/dl (8.6-10.3); Creatinine Clr Calc Pharmacy 30.5 ml/min; Est GFR (African American) 38.8 ml/min; Est GFR (Non-African American) 33.4 ml/min; Globulin 2.6 gm/dl (2.5-4.0); Magnesium 1.4 mg/dl (1.7-2.4); Total Protein 6.2 gm/dl (6.0-8.3)
[2023-07-08] MEDS: SUCRALFATE 1 GM/10 ML UDC PO SCH ×4 (10:37→21:22)
[2023-07-08] MEDS: POLYETHYLENE (MIRALAX) 17 GM PACK PO SCH ×2 (14:23→21:25)
[2023-07-08] MEDS: FLUCONAZOLE 100 MG TAB PO SCH (17:50)
--- NOTE | 2023-07-08 17:55 | Billing Data ---
Date of Service July 08, 2023 Coding Level of Care Code 45204 SUB INP/OBS CARE MIN
[2023-07-08] MEDS: ONDANSETRON 4 MG OD TAB PO PRN (19:51)
[2023-07-08] MEDS: VENLAFAXINE HCL XR 150 MG CAPXR PO SCH (21:23)
[2023-07-08] MEDS: QUEtiapine FUMARATE 25 MG TABLET PO SCH (21:23)
[2023-07-08] MEDS: VENLAFAXINE HCL XR 75 MG CAPXR PO SCH (21:24)
[2023-07-09 06:53] LABS: Basophils # (auto) 0.02 K/uL (0.00-0.20); Basophils % (auto) 0.4 %; Eosinophils # (auto) 0.14 K/uL (0.00-0.50); Eosinophils % (auto) 2.6 %; Hematocrit (blood only) 24.5 % (37.0-47.0); Hemoglobin 8.4 g/dl (12.0-16.0); Immature Granulocytes # (auto) 0.01 K/uL (0.01-0.20); Immature Granulocytes % (auto) 0.2 %; Lymphocytes # (auto) 1.45 K/uL (1.20-3.40); Lymphocytes % (auto) 26.7 %; Mean Corpuscular Hemoglobin 28.8 pg (25.0-34.0); Mean Corpuscular Hgb Conc 34.3 g/dL (32.0-36.0); Mean Corpuscular Volume 83.9 fL (80.0-100.0); Mean Platelet Volume 10.3 fL (9.4-12.4); Monocytes # (auto) 0.54 K/uL (0.11-0.59); Monocytes % (auto) 9.9 %; Neutrophils # (auto) 3.27 K/uL (1.40-6.50); Neutrophils % (auto) 60.2 %; Platelet Count 190 K/uL (130-400); RDW Coefficient of Variation 17.7 % (11.5-14.5); Red Blood Count 2.92 M/uL (4.20-5.40); White Blood Count 5.43 K/ul (4.8-10.8)
[2023-07-09 07:16] LABS: Albumin Globulin Ratio 1.4 (0.9-2); Albumin Level 3.5 gm/dl (3.4-5.0); BUN Creatinine Ratio 27.7 (10-20); Bilirubin,Total 0.4 mg/dl (0.2-1.0); Calcium 8.8 mg/dl (8.6-10.3); Creatinine Clr Calc Pharmacy 41.2 ml/min; Est GFR (African American) 55.9 ml/min; Est GFR (Non-African American) 48.2 ml/min; Globulin 2.5 gm/dl (2.5-4.0); Magnesium 1.5 mg/dl (1.7-2.4); Potassium 3.7 mmol/L (3.5-5.1)
[2023-07-09] MEDS: SUCRALFATE 1 GM/10 ML UDC PO SCH ×4 (08:35→20:58)
[2023-07-09] MEDS: POLYETHYLENE (MIRALAX) 17 GM PACK PO SCH ×3 (08:36→20:58)
[2023-07-09] MEDS: POTASSIUM CHLORIDE CRTAB 20 MEQ TABCR PO SCH (08:36)
[2023-07-09] MEDS: CHOLECALCIFEROL 1,000 UNITS 25 MCG TAB PO SCH (08:36)
[2023-07-09] MEDS: SACCHAROMYCES BOULARDII 250 MG CAP PO SCH ×2 (08:36→21:01)
[2023-07-09] MEDS: APIXABAN 5 MG TABLET PO SCH ×2 (08:36→21:00)
[2023-07-09] MEDS: MULTIVITAMIN TAB PO SCH (08:36)
[2023-07-09] MEDS: MAGNESIUM CHLORIDE W/CALCIUM 64MG DELAYED REL TAB PO SCH ×2 (08:36→21:00)
[2023-07-09] MEDS: PANTOprazole 40 MG TAB PO SCH ×2 (08:37→21:01)
[2023-07-09] MEDS: FLUTICASONE PROPIONATE NA SPR 16 GM BTL SCH (08:37)
[2023-07-09] MEDS: METOPROLOL SUCC 25MG EXT REL TAB PO SCH ×2 (08:40→21:01)
[2023-07-09] MEDS: INSULIN ASPART PER UNIT CHARGE SC SCH ×4 (09:48→20:24)
[2023-07-09] MEDS: LANTUS PER UNIT CHARGE SQ SCH ×2 (09:49→21:21)
--- NOTE | 2023-07-09 10:57 | Hospitalist Progress Note ---
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 History of cryptococcal meningitis (dx 02/2022) -Pt presenting with increase in auditory/visual hallucinations -ID consulted; recommended brain MRI which showed increased inflammation of her cerebellum -LP performed 06/30; CSF studies as per chart -CSF meningitis/encephalitis neg, serum cryptococcal Ag neg -Still awaiting crypto CSF final studies -Bacterial blood cx neg; fungal blood cx neg -Began liposomal amphotericin (3mg/kg daily) and flucytosine (25 mg/kg QID) 06/25; d/c on 07/05 due to marrow suppression/worsening kidney function -Continuing fluconazole 400 per ID recommendations. -07/06: Discussed with patient's son goals of long-term placement- he notes that the family is hoping she would have placement with some level of assistance however she has been resistant to this in the past. -07/07: Case management in contact with patient's son, Sushant, and referrals placed to several personal care facilities. Anemia -Hgb 6.5 on 07/04 -No signs of active bleed and vital signs reassuring -Suspect that drop in hemoglobin is secondary to bone marrow suppression from amphotericin/flucytosine -Blood consent obtained, transfused 1u PRBC on 07/04 -Hgb has been stable at mid 8's for several days Hallucinations -Likely multifactorial in the setting of cryptococcal meningitis, hospital induced delirium -Concern that there could also be an underlying psychiatric component -Psych consulted appreciate recommendations -07/07: Discussed with Dr. Wayne, recommended increasing Seroquel qhs to 50mg and watching BP. Abdominal Pain -Had diarrhea and abdominal cramps on 07/07, resolved with 1 dose of imodium -Today (07/08), has noted more abdominal pain which is not localized. Also endorses nausea. -Suspect that her discomfort could be related to constipation (?overflow diarrhea on 07/07) -Started Miralax TID to help with constipation and antiemetics PRN -07/09: Ordered KUB x-ray to assess stool burden, results pending Hypomagnesium/Hypokalemia -Continue to replete as necessary Drug-induced ALBINA -Continue to monitor -Largely improved since discontinuing nephrotoxic antifungals Insulin dependent diabetes mellitus -During previous hospitalization, basal insulin was decreased d/t hypoglycemic episodes -Basal insulin to 10 units BID -Continue SSI: goal 100-140, CF 50, CR 25 Anxiety -Continue home venlafaxine 150mg daily Paroxysmal afib -Continue metoprolol, Eliquis Cirrhosis -Stable; no acute decompensation Gastritis -Continue pantoprazole and sucralfate Code status: full Diet: carb consistent DVT ppx: eliquis (2) Cryptococcal meningitis: (3) Uncontrolled type 2 diabetes mellitus with hyperglycemia, with long-term current use of insulin: (4) Anxiety: (5) Paroxysmal A-fib: (6) Cirrhosis of liver: (7) Hypomagnesemia: (8) Hypokalemia: (9) Gastritis: (10) Hypertension: Admission and Anticipated Discharge Date Admission Date: June 24, 2023 Supervising Physician Co-Signing Physician Notes I personally examined the patient and verified all fish points of history and exam, discussed case, and agree with decision making with Dr Scott abdominal pain a bit worse. some nausea poor appetite. son present. updated to the best of my ability and answered all questions to his satisfaction as well Vitals noted, in general she is awake pleasant nad. HEENT normocephalic atraumatic mucous membranes moist. Breathing unlabored no accessory muscle use good effort. Skin shows no rashes no pallor or icterus. Abdomen soft diffuse tenderness may be worst right lower/mid-sided but no guarding rebound or rigidity and is tender everywhere. slightly more distended than yesterday Cryptococcal meningitisIV antifungals now transitioned back to fluconazole. continue per ID management. outpt ID f/u w primary ID specialist AKIprobably related to Amphotericinversus almost as likely but less likely flucytosineimproved Abdominal painetiology most likely constipation/overflowwith diffuse distended and diffuse tender abdomen, I do wonder about constipation and her diarrhea is overflow. Certainly peptic ulcer disease or biliary pathology are on the differential although lower. Doubt side effect to flucytosine or Amphotericin now that this is happening for the first time today and she has been off of those for days. Could be GI intolerance to fluconazole but she has been on it before. Serial exams, supportive care. Would utilize MiraLAX 17 g 3 times daily off of a working diagnosis of constipation mediated abdominal pain with overflow diarrhea. Continue to follow closely. KUB does show stool. Acute anemiatransfused - stable. follow Hallucinations/paranoiaprobably related to inflammation the infection itself and/or chronic changes from infection overall, cannot rule out delirium or maybe even med side effectsbut again watchful waiting, supportive care, Increased Seroquel (appreciate psychiatry recommendations). dispo - will need safe environment ([facility] seems best fit) otherwise as above Subjective Patient seen and examined at bedside. Patient endorses some continued abdominal pain and nausea this morning, notes that the Zofran did seem to help yesterday. Review of Systems Review of Systems: As per above Physical Exam Constitutional: well developed and well nourished; no acute distress Eyes: + conjunctival abnormality and + anicteric sclerae ENMT: Ears: no external ear abnormality Nose: no external nose abnormality Respiratory: normal respiratory effort, lungs clear to auscultation Cardiovascular: Rate/Rhythm: regular rate and regular rhythm Gastrointestinal (Abdomen): Abdomen soft, nondistended, no guarding. Generalized tenderness to palpation. Skin: no rashes, warm and dry Results & Data Results & Data Vital Signs (Past 12 Hours) Vital Signs Temp Pulse Pulse Resp BP Pulse Ox O2 Del Method 07/09/23 08:39 70 20 112/67 100 Room Air 07/09/23 07:21 37.0 C 65 16 112/65 97 Room Air Resident Activity Tracking Resident Involvement: Resident Care Provided Care Provided: Adult Hospital Medicine (10) Hypertension Hypertension type: essential hypertension Qualified Code(s): I10 - Essential (primary) hypertension
[2023-07-09] MEDS: ONDANSETRON 4 MG OD TAB PO PRN (11:39)
[2023-07-09] MEDS: FLUCONAZOLE 100 MG TAB PO SCH (16:27)
--- NOTE | 2023-07-09 19:56 | Billing Data ---
Date of Service July 09, 2023 Coding Level of Care Code 16144 SUB INP/OBS CARE 3MIN
--- NOTE | 2023-07-09 19:57 | Billing Data ---
Date of Service July 09, 2023 Coding Level of Care Code 73996 SUB INP/OBS CARE 3MIN
--- NOTE | 2023-07-09 20:37 | XRay Report ---
XR KUB/Abdomen 1 view CLINICAL HISTORY: abdominal pain TECHNIQUE: 1 view of the abdomen was obtained. Comparison: Comparison is made to chest and abdomen radiographs 06/08/2022 FINDINGS: Cholecystomy clips are seen in the right upper quadrant. Degenerative changes are seen in the visuali zed skeleton. Left hip total arthroplasty is seen. The bowel gas pattern is nonobstructive. A moderat e amount of stool is noted within the large bowel. IMPRESSION: Nonobstructive bowel gas pattern. ACT 112: Negative or not required by law. Electronically signed by: Sukhjinder Orozco M.D. 07/09/2023 8:36 PM
[2023-07-09] MEDS: QUEtiapine FUMARATE 25 MG TABLET PO SCH (20:59)
[2023-07-09] MEDS: VENLAFAXINE HCL XR 75 MG CAPXR PO SCH (21:00)
[2023-07-09] MEDS: VENLAFAXINE HCL XR 150 MG CAPXR PO SCH (21:01)
[2023-07-10 06:24] LABS: Basophils # (auto) 0.03 K/uL (0.00-0.20); Basophils % (auto) 0.6 %; Eosinophils # (auto) 0.16 K/uL (0.00-0.50); Eosinophils % (auto) 3.4 %; Hemoglobin 7.8 g/dl (12.0-16.0); Immature Granulocytes # (auto) 0.02 K/uL (0.01-0.20); Immature Granulocytes % (auto) 0.4 %; Lymphocytes # (auto) 1.51 K/uL (1.20-3.40); Lymphocytes % (auto) 31.9 %; Mean Corpuscular Hemoglobin 28.7 pg (25.0-34.0); Mean Corpuscular Hgb Conc 33.9 g/dL (32.0-36.0); Mean Corpuscular Volume 84.6 fL (80.0-100.0); Mean Platelet Volume 10.2 fL (9.4-12.4); Monocytes # (auto) 0.57 K/uL (0.11-0.59); Neutrophils # (auto) 2.45 K/uL (1.40-6.50); Neutrophils % (auto) 51.7 %; Platelet Count 155 K/uL (130-400); RDW Coefficient of Variation 17.9 % (11.5-14.5); RDW Standard Deviation 51.6 fL (36.4-46.3); Red Blood Count 2.72 M/uL (4.20-5.40); White Blood Count 4.74 K/ul (4.8-10.8)
[2023-07-10 07:00] LABS: RBC Morphology Unremarkable
[2023-07-10 07:16] LABS: Albumin Globulin Ratio 1.4 (0.9-2); Albumin Level 3.3 gm/dl (3.4-5.0); BUN Creatinine Ratio 30.4 (10-20); Bilirubin,Total 0.4 mg/dl (0.2-1.0); Calcium 8.3 mg/dl (8.6-10.3); Creatinine Clr Calc Pharmacy 39.3 ml/min; Est GFR (African American) 52.6 ml/min; Est GFR (Non-African American) 45.4 ml/min; Globulin 2.3 gm/dl (2.5-4.0); Magnesium 1.4 mg/dl (1.7-2.4); Potassium 3.3 mmol/L (3.5-5.1); Total Protein 5.6 gm/dl (6.0-8.3)
[2023-07-10] MEDS: APIXABAN 5 MG TABLET PO SCH ×2 (08:52→20:31)
[2023-07-10] MEDS: PANTOprazole 40 MG TAB PO SCH ×2 (08:52→20:32)
[2023-07-10] MEDS: MAGNESIUM CHLORIDE W/CALCIUM 64MG DELAYED REL TAB PO SCH ×2 (08:52→20:32)
[2023-07-10] MEDS: SACCHAROMYCES BOULARDII 250 MG CAP PO SCH ×2 (08:52→20:32)
[2023-07-10] MEDS: POLYETHYLENE (MIRALAX) 17 GM PACK PO SCH ×3 (08:53→20:31)
[2023-07-10] MEDS: MULTIVITAMIN TAB PO SCH (08:53)
[2023-07-10] MEDS: POTASSIUM CHLORIDE CRTAB 20 MEQ TABCR PO SCH (08:53)
[2023-07-10] MEDS: CHOLECALCIFEROL 1,000 UNITS 25 MCG TAB PO SCH (08:53)
[2023-07-10] MEDS: FLUTICASONE PROPIONATE NA SPR 16 GM BTL SCH (08:54)
[2023-07-10] MEDS: SUCRALFATE 1 GM/10 ML UDC PO SCH ×4 (08:55→20:31)
[2023-07-10] MEDS: INSULIN ASPART PER UNIT CHARGE SC SCH ×4 (09:02→21:22)
[2023-07-10] MEDS: LANTUS PER UNIT CHARGE SQ SCH ×2 (09:11→21:22)
[2023-07-10] MEDS: METOPROLOL SUCC 25MG EXT REL TAB PO SCH ×2 (09:36→20:32)
[2023-07-10] MEDS: MAGNESIUM SULFATE / D5W 1 GM/100 ML BAG IV SCH ×3 (09:47→13:50)
--- NOTE | 2023-07-10 11:08 | Hospitalist Progress Note ---
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 History of cryptococcal meningitis (dx 02/2022) -Pt presenting with increase in auditory/visual hallucinations -ID consulted; recommended brain MRI which showed increased inflammation of her cerebellum -LP performed 06/30; CSF studies as per chart -CSF meningitis/encephalitis neg, serum cryptococcal Ag neg -Still awaiting crypto CSF final studies -Bacterial blood cx neg; fungal blood cx neg -Began liposomal amphotericin (3mg/kg daily) and flucytosine (25 mg/kg QID) 06/25; d/c on 07/05 due to marrow suppression/worsening kidney function -Continuing fluconazole 400 per ID recommendations. -Will reach out to patient's ID provider to update on treatment plan -07/06: Discussed with patient's son goals of long-term placement- he notes that the family is hoping she would have placement with some level of assistance however she has been resistant to this in the past. -07/07: Case management in contact with patient's son, Sushant, and referrals placed to several personal care facilities. Anemia -Hgb 6.5 on 07/04 -No signs of active bleed and vital signs reassuring -Suspect that drop in hemoglobin is secondary to bone marrow suppression from amphotericin/flucytosine -Blood consent obtained, transfused 1u PRBC on 07/04 -Hgb has been stable at mid 8's for several days Hallucinations -Likely multifactorial in the setting of cryptococcal meningitis, hospital induced delirium -Concern that there could also be an underlying psychiatric component -Psych consulted appreciate recommendations -07/07: Discussed with Dr. Wayne, recommended increasing Seroquel qhs to 50mg and watching BP. Abdominal Pain -Had diarrhea and abdominal cramps on 07/07, resolved with 1 dose of imodium -Today (07/08), has noted more abdominal pain which is not localized. Also endorses nausea. -Suspect that her discomfort could be related to constipation (?overflow diarrhea on 07/07) -Started Miralax TID to help with constipation and antiemetics PRN -07/09: KUB shows stool burden Hypomagnesium/Hypokalemia -Continue to replete as necessary Drug-induced ALBINA -Continue to monitor -Largely improved since discontinuing nephrotoxic antifungals Insulin dependent diabetes mellitus -During previous hospitalization, basal insulin was decreased d/t hypoglycemic episodes -Basal insulin to 10 units BID -Continue SSI: goal 100-140, CF 50, CR 25 Anxiety -Continue home venlafaxine 150mg daily Paroxysmal afib -Continue metoprolol, Eliquis Cirrhosis -Stable; no acute decompensation Gastritis -Continue pantoprazole and sucralfate Code status: full Diet: carb consistent DVT ppx: eliquis (2) Cryptococcal meningitis: (3) Uncontrolled type 2 diabetes mellitus with hyperglycemia, with long-term current use of insulin: (4) Anxiety: (5) Paroxysmal A-fib: (6) Cirrhosis of liver: (7) Hypomagnesemia: (8) Hypokalemia: (9) Gastritis: (10) Hypertension: Admission and Anticipated Discharge Date Admission Date: June 24, 2023 Supervising Physician Co-Signing Physician Notes I personally examined the patient and verified all fish points of history and exam, discussed case, and agree with decision making with Dr Scott Eating, smiling, family present. Updated to the best my ability. Vitals noted, in general she is awake pleasant nad. HEENT normocephalic atrauma tic mucous membranes moist. Breathing unlabored no accessory muscle use good effort. Skin shows no rashes no pallor or icterus. Cryptococcal meningitisIV antifungals now transitioned back to fluconazole. continue per inpatient ID management. outpt ID f/u w primary ID specialistresident physician is going to try to contact patient's primary ID specialist to review the case with him as well. AKIprobably related to Amphotericinversus almost as likely but less likely flucytosineimproved Abdominal painetiology most likely constipation/overflowmost likely based on sx/exam/xray. continue TID miralax Acute anemiatransfused - stable. follow Hallucinations/paranoiaprobably related to inflammation the infection itself and/or chronic changes from infection overall, cannot rule out delirium or maybe even med side effectsbut again watchful waiting, supportive care, Increased Seroquel (appreciate psychiatry recommendations). Will probably need ongoing dose adjustments titrations/med changes/etc. with goal of trying to help suppress hallucinations but not create excess sedation. dispo - will need safe environment ([facility] seems best fitson working on this) otherwise as above Subjective Patient seen and examined at bedside. Per nursing, patient has had increased frequency in hallucinations today. Patient states that her abdominal pain has improved. Review of Systems Review of Systems: As per above Physical Exam Constitutional: well developed and well nourished; no acute distress Eyes: + conjunctival abnormality and + anicteric sclerae ENMT: Ears: no external ear abnormality Nose: no external nose abnormality Respiratory: normal respiratory effort, lungs clear to auscultation Cardiovascular: Rate/Rhythm: regular rate and regular rhythm Gastrointestinal (Abdomen): normal bowel sounds, soft, nontender, no hepatosplenomegaly Skin: no rashes, warm and dry Psychiatric: Apperance: + disheveled Hallucinations: + visual hallucinations Results & Data Results & Data Vital Signs (Past 12 Hours) Vital Signs Temp Pulse Resp BP Pulse Ox O2 Del Method 07/10/23 07:57 36.6 C 68 16 98/57 L 96 Room Air Resident Activity Tracking Resident Involvement: Resident Care Provided Care Provided: Adult Hospital Medicine (10) Hypertension Hypertension type: essential hypertension Qualified Code(s): I10 - Essential (primary) hypertension
[2023-07-10] MEDS: FLUCONAZOLE 100 MG TAB PO SCH (16:58)
--- NOTE | 2023-07-10 19:50 | Billing Data ---
Date of Service July 10, 2023 Coding Level of Care Code 83647 SUB INP/OBS CARE
[2023-07-10] MEDS: VENLAFAXINE HCL XR 150 MG CAPXR PO SCH (20:30)
[2023-07-10] MEDS: VENLAFAXINE HCL XR 75 MG CAPXR PO SCH (20:32)
[2023-07-10] MEDS: QUEtiapine FUMARATE 25 MG TABLET PO SCH (20:32)
--- NOTE | 2023-07-11 07:20 | Hospitalist Progress Note ---
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 -fungal blood cx neg -Began liposomal amphotericin (3mg/kg daily) and flucytosine (25 mg/kg QID) 06/25; d/c on 07/05 due to marrow suppression/worsening kidney function -Continuing fluconazole 400 per ID recommendations. -Awaiting outpatient ID input Hallucinations -Likely multifactorial in the setting of cryptococcal meningitis, hospital induced delirium; Thought ds -Psych consulted - 07/07: Increased Seroquel qhs to 50mg. -Consult placed to neurology for reevaluation -continue supportive care Anemia -Hgb 6.5 on 07/04. No signs of active bleed and vital signs reassuring -Suspect that drop in hemoglobin is secondary to bone marrow suppression from amphotericin/flucytosine -1u PRBC on 07/04 -Continue to monitor CBC Abdominal Pain -Sec to constipation/overflow diarrhea. Miralax tid. -pain improved. Drug-induced ALBINA -resolved with d/cing nephrotoxic antifungals Insulin dependent diabetes mellitus -During previous hospitalization, basal insulin was decreased d/t hypoglycemic episodes -Basal insulin to 10 units BID -Continue SSI: goal 100-140, CF 50, CR 25 Anxiety -Continue home venlafaxine 150mg daily Paroxysmal afib -Continue metoprolol, Eliquis Cirrhosis -Stable; no acute decompensation Gastritis -Continue pantoprazole and sucralfate Dispo: ([facility] seems best fitson working on this) Diet: carb consistent DVT ppx: eliquis (2) Cryptococcal meningitis: (3) Uncontrolled type 2 diabetes mellitus with hyperglycemia, with long-term current use of insulin: (4) Anxiety: (5) Paroxysmal A-fib: (6) Cirrhosis of liver: (7) Hypomagnesemia: (8) Hypokalemia: (9) Gastritis: (10) Hypertension: Admission and Anticipated Discharge Date Admission Date: June 24, 2023 Supervising Physician Co-Signing Physician Notes Resident Physician Supervision Note: I independently interviewed and examined the patient and verified the fish history and physical, reviewed labs and image studies and agree with resident findings and care plan. Subjective Patient seen and examined at bedside. No acute events reported overnight. Patient endorses that she was able to eat some breakfast and denies any nausea/abdominal pain. Review of Systems Review of Systems: As per above Physical Exam Constitutional: well developed and well nourished; no acute distress Eyes: + conjunctival abnormality and + anicteric sclerae ENMT: Ears: no external ear abnormality Nose: no external nose abnormality Respiratory: normal respiratory effort, lungs clear to auscultation Cardiovascular: Rate/Rhythm: regular rate and regular rhythm Gastrointestinal (Abdomen): normal bowel sounds, soft, nontender, no hepatosplenomegaly Skin: no rashes, warm and dry Psychiatric: Apperance: + disheveled Hallucinations: + visual hallucinations Results & Data Results & Data Vital Signs (Past 12 Hours) Vital Signs Temp Pulse Resp BP Pulse Ox O2 Del Method O2 Del Method 07/10/23 22:00 Room Air 07/10/23 20:27 37.1 C 70 18 116/78 100 Room Air Resident Activity Tracking Resident Involvement: Resident Care Provided Care Provided: Adult Hospital Medicine (10) Hypertension Hypertension type: essential hypertension Qualified Code(s): I10 - Essential (primary) hypertension
[2023-07-11 08:13] LABS: Basophils # (auto) 0.03 K/uL (0.00-0.20); Basophils % (auto) 0.8 %; Eosinophils # (auto) 0.19 K/uL (0.00-0.50); Eosinophils % (auto) 4.8 %; Hematocrit (blood only) 21.5 % (37.0-47.0); Hemoglobin 7.2 g/dl (12.0-16.0); Immature Granulocytes # (auto) 0.03 K/uL (0.01-0.20); Immature Granulocytes % (auto) 0.8 %; Lymphocytes # (auto) 1.31 K/uL (1.20-3.40); Lymphocytes % (auto) 33.1 %; Mean Corpuscular Hemoglobin 28.5 pg (25.0-34.0); Mean Corpuscular Hgb Conc 33.5 g/dL (32.0-36.0); Mean Platelet Volume 10.5 fL (9.4-12.4); Monocytes # (auto) 0.53 K/uL (0.11-0.59); Monocytes % (auto) 13.4 %; Neutrophils # (auto) 1.87 K/uL (1.40-6.50); Neutrophils % (auto) 47.1 %; Nucleated RBC # (auto) 0.02 K/uL (0.00-0.12); Nucleated RBC % (auto) 0.5 %; Platelet Count 145 K/uL (130-400); RDW Coefficient of Variation 17.9 % (11.5-14.5); RDW Standard Deviation 52.8 fL (36.4-46.3); Red Blood Count 2.53 M/uL (4.20-5.40); White Blood Count 3.96 K/ul (4.8-10.8)
[2023-07-11 08:37] LABS: RBC Morphology Unremarkable
[2023-07-11 09:00] LABS: Albumin Globulin Ratio 1.5 (0.9-2); Albumin Level 3.3 gm/dl (3.4-5.0); BUN Creatinine Ratio 34.4 (10-20); Bilirubin,Total 0.4 mg/dl (0.2-1.0); Calcium 8.4 mg/dl (8.6-10.3); Creatinine Clr Calc Pharmacy 40.2 ml/min; Est GFR (African American) 54.2 ml/min; Est GFR (Non-African American) 46.8 ml/min; Globulin 2.2 gm/dl (2.5-4.0); Total Protein 5.5 gm/dl (6.0-8.3)
[2023-07-11] MEDS: POLYETHYLENE (MIRALAX) 17 GM PACK PO SCH ×3 (09:08→20:42)
[2023-07-11] MEDS: MAGNESIUM CHLORIDE W/CALCIUM 64MG DELAYED REL TAB PO SCH ×2 (09:09→20:43)
[2023-07-11] MEDS: APIXABAN 5 MG TABLET PO SCH ×2 (09:09→20:43)
[2023-07-11] MEDS: SUCRALFATE 1 GM/10 ML UDC PO SCH ×4 (09:09→20:45)
[2023-07-11] MEDS: CHOLECALCIFEROL 1,000 UNITS 25 MCG TAB PO SCH (09:09)
[2023-07-11] MEDS: PANTOprazole 40 MG TAB PO SCH ×2 (09:09→20:43)
[2023-07-11] MEDS: FLUTICASONE PROPIONATE NA SPR 16 GM BTL SCH (09:10)
[2023-07-11] MEDS: MULTIVITAMIN TAB PO SCH (09:10)
[2023-07-11] MEDS: METOPROLOL SUCC 25MG EXT REL TAB PO SCH ×2 (09:10→20:43)
[2023-07-11] MEDS: POTASSIUM CHLORIDE CRTAB 20 MEQ TABCR PO SCH (09:10)
[2023-07-11] MEDS: SACCHAROMYCES BOULARDII 250 MG CAP PO SCH ×2 (09:10→20:42)
[2023-07-11] MEDS: INSULIN ASPART PER UNIT CHARGE SC SCH ×4 (09:19→20:51)
[2023-07-11] MEDS: LANTUS PER UNIT CHARGE SQ SCH ×2 (09:19→20:51)
[2023-07-11] MEDS: FLUCONAZOLE 100 MG TAB PO SCH (16:28)
[2023-07-11] MEDS: VENLAFAXINE HCL XR 150 MG CAPXR PO SCH (20:43)
[2023-07-11] MEDS: QUEtiapine FUMARATE 25 MG TABLET PO SCH (20:44)
[2023-07-11] MEDS: VENLAFAXINE HCL XR 75 MG CAPXR PO SCH (20:45)
--- NOTE | 2023-07-12 07:02 | Hospitalist Progress Note ---
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 Hallucinations with leptomeningeal enhancement on MRI -Pt presenting with increase in auditory/visual hallucinations -Likely multifactorial in the setting of concern of continued cryptococcal meningitis, hospital induced delirium; Thought ds -Psych consulted - 07/07: Increased Seroquel qhs to 50mg. Tolerating well -Consult placed to neurology for reevaluation -Ordered PRISCILA 12 panel, to include Sjogren's antibodies, scleroderma antibodies. Also checking ANCA, angiotensin-converting enzyme, rheumatoid factor, CRP, ESR. 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 -fungal blood cx neg -Began liposomal amphotericin (3mg/kg daily) and flucytosine (25 mg/kg QID) 06/25; d/c on 07/05 due to marrow suppression/worsening kidney function -Continuing fluconazole 400 per ID recommendations. -Awaiting outpatient ID input Anemia -Hgb 6.5 on 07/04. No signs of active bleed and vital signs reassuring -Suspect that drop in hemoglobin is secondary to bone marrow suppression from amphotericin/flucytosine -1u PRBC on 07/04 -Continue to monitor CBC Abdominal Pain -Sec to constipation/overflow diarrhea. Miralax tid decreased to daily. -pain improved. Drug-induced ALBINA -resolved with d/cing nephrotoxic antifungals Insulin dependent diabetes mellitus -During previous hospitalization, basal insulin was decreased d/t hypoglycemic episodes -Basal insulin to 10 units BID -Continue SSI: goal 100-140, CF 50, CR 25 Anxiety -Continue home venlafaxine 150mg daily Paroxysmal afib -Continue metoprolol, Eliquis Cirrhosis -Stable; no acute decompensation Gastritis -Continue pantoprazole and sucralfate Dispo: ([facility] seems best fitson working on this) Diet: carb consistent DVT ppx: eliquis (2) Cryptococcal meningitis: (3) Uncontrolled type 2 diabetes mellitus with hyperglycemia, with long-term current use of insulin: (4) Anxiety: (5) Paroxysmal A-fib: (6) Cirrhosis of liver: (7) Hypomagnesemia: (8) Hypokalemia: (9) Gastritis: (10) Hypertension: Admission and Anticipated Discharge Date Admission Date: June 24, 2023 Supervising Physician Co-Signing Physician Notes Resident Physician Supervision Note: I independently interviewed and examined the patient and verified the fish history and physical, reviewed labs and image studies and agree with resident findings and care plan. Subjective Patient seen and examined at bedside. No overnight events reported. Patient notes some looser stool today, feels that abdominal pain is improving. Review of Systems Review of Systems: As per above Physical Exam Constitutional: well developed and well nourished; no acute distress Eyes: + conjunctival abnormality and + anicteric sclerae ENMT: Ears: no external ear abnormality Nose: no external nose abnormality Respiratory: normal respiratory effort, lungs clear to auscultation Cardiovascular: Rate/Rhythm: regular rate and regular rhythm Gastrointestinal (Abdomen): normal bowel sounds, soft, nontender, no hepatosplenomegaly Skin: no rashes, warm and dry Psychiatric: Apperance: + disheveled Hallucinations: + visual hallucinations Results & Data Results & Data Vital Signs (Past 12 Hours) Vital Signs Temp Pulse Resp BP Pulse Ox O2 Del Method 07/12/23 00:49 37 C 73 18 109/52 L 95 Room Air Resident Activity Tracking Resident Involvement: Resident Care Provided Care Provided: Adult Hospital Medicine (10) Hypertension Hypertension type: essential hypertension Qualified Code(s): I10 - Essential (primary) hypertension
[2023-07-12] MEDS: POTASSIUM CHLORIDE CRTAB 20 MEQ TABCR PO SCH (08:07)
[2023-07-12] MEDS: PANTOprazole 40 MG TAB PO SCH ×2 (08:07→21:31)
[2023-07-12] MEDS: MULTIVITAMIN TAB PO SCH (08:07)
[2023-07-12] MEDS: METOPROLOL SUCC 25MG EXT REL TAB PO SCH ×2 (08:07→21:33)
[2023-07-12] MEDS: MAGNESIUM CHLORIDE W/CALCIUM 64MG DELAYED REL TAB PO SCH ×2 (08:07→21:32)
[2023-07-12] MEDS: SUCRALFATE 1 GM/10 ML UDC PO SCH ×4 (08:07→21:34)
[2023-07-12] MEDS: APIXABAN 5 MG TABLET PO SCH ×2 (08:07→21:32)
[2023-07-12] MEDS: SACCHAROMYCES BOULARDII 250 MG CAP PO SCH ×2 (08:07→21:31)
[2023-07-12] MEDS: CHOLECALCIFEROL 1,000 UNITS 25 MCG TAB PO SCH (08:07)
[2023-07-12] MEDS: POLYETHYLENE (MIRALAX) 17 GM PACK PO SCH ×2 (08:08→13:28)
[2023-07-12] MEDS: FLUTICASONE PROPIONATE NA SPR 16 GM BTL SCH (08:08)
[2023-07-12] MEDS: INSULIN ASPART PER UNIT CHARGE SC SCH ×4 (08:15→21:36)
[2023-07-12] MEDS: LANTUS PER UNIT CHARGE SQ SCH ×2 (08:15→21:38)
[2023-07-12 08:35] LABS: Basophils # (auto) 0.03 K/uL (0.00-0.20); Basophils % (auto) 0.8 %; Eosinophils # (auto) 0.16 K/uL (0.00-0.50); Eosinophils % (auto) 4.3 %; Hemoglobin 7.2 g/dl (12.0-16.0); Immature Granulocytes # (auto) 0.02 K/uL (0.01-0.20); Immature Granulocytes % (auto) 0.5 %; Lymphocytes % (auto) 34.7 %; Mean Corpuscular Hemoglobin 28.6 pg (25.0-34.0); Mean Corpuscular Hgb Conc 32.7 g/dL (32.0-36.0); Mean Corpuscular Volume 87.3 fL (80.0-100.0); Mean Platelet Volume 10.9 fL (9.4-12.4); Monocytes % (auto) 10.7 %; Neutrophils # (auto) 1.84 K/uL (1.40-6.50); Platelet Count 158 K/uL (130-400); RDW Coefficient of Variation 18.2 % (11.5-14.5); RDW Standard Deviation 55.7 fL (36.4-46.3); Red Blood Count 2.52 M/uL (4.20-5.40); White Blood Count 3.75 K/ul (4.8-10.8)
[2023-07-12 08:56] LABS: RBC Morphology Unremarkable
[2023-07-12 09:01] LABS: Albumin Globulin Ratio 1.3 (0.9-2); Albumin Level 3.4 gm/dl (3.4-5.0); BUN Creatinine Ratio 38.2 (10-20); Bilirubin,Total 0.3 mg/dl (0.2-1.0); Calcium 8.6 mg/dl (8.6-10.3); Creatinine Clr Calc Pharmacy 39.9 ml/min; Est GFR (African American) 53.7 ml/min; Est GFR (Non-African American) 46.3 ml/min; Globulin 2.6 gm/dl (2.5-4.0); Magnesium 1.8 mg/dl (1.7-2.4); Potassium 3.7 mmol/L (3.5-5.1)
--- NOTE | 2023-07-12 11:01 | Neurology Consultation ---
Date of Consultation July 12, 2023 Assessment & Plan (1) Hallucinations: (2) Cryptococcal meningitis: Plan 63-year-old female with a history of cryptococcal meningitis diagnosed in February 2022, with evidence of progressive leptomeningeal enhancement of the cerebellum on MRI. Patient has been on long-term fluconazole and her most recent CSF analysis was negative. She has been having auditory and visual hallucinations in the context of her history of cryptococcal meningitis. No prior history of psychosis or psychiatric disorder. This patient does not have a history of HIV, immunocompromise, or malignancy. It is also notable that she has an intact neurological examination, with no evidence of ataxia, nystagmus, tremor or other abnormal movements, weakness, or cranial neuropathy. She also appears to have an intact mental status, with intact orientation, memory, attention, speech, and vocabulary. I suspect the observed leptomeningeal enhancement involving her cerebellum on MRI is secondary to her history of cryptococcal meningitis. The auditory and visual hallucinations would seem unusual in this context. One could consider the possibility of rhomboencephalitis/cerebellitis. Yet, she certainly does not seem acutely ill or have gross deficits on her general neurological examination that would suggest otherwise. Within the differential diagnosis of rhomboencephalitis, one could consider the possibility of autoimmune or paraneoplastic disease. However, she has had fairly extensive imaging including CT of the chest, abdomen and pelvis, multiple times over the past year, no evidence of malignancy. Further, she does not really endorse symptoms sugges tive of an underlying rheumatologic or autoimmune disorder. I do note that she has fairly significant bilateral Dupuytren contractures of the hands and has had several surgical procedures for this issue. I doubt she has scleroderma. She does endorse dry eyes and dry mouth and one could consider the possibility of Sjogren's. Lupus and granulomatous vasculitis/ANCA disease could be considered as well. Again, however, I think the possibility of an underlying inflammatory rheumatologic illness in this patient is probably low. I also note there has been some concern for possible Lewy body disease in this patient. Lewy body disease or Lewy body dementia is typically characterized by visual hallucinations, rather than auditory hallucinations. She is perhaps mildly bradykinetic, but otherwise does not have a resting tremor or other obvious parkinsonian signs on examination. Nonetheless, Lewy body disease remains a possibility. Would recommend a follow-up gadolinium-enhanced brain MRI in 2-3 months to reassess her leptomeningeal enhancement. I will order an PRISCILA 12 panel, to include Sjogren's antibodies, scleroderma antibodies. Also check ANCA, angiotensin-converting enzyme, rheumatoid factor, CRP, ESR. Continue with suppressive therapy for cryptococcal meningitis as per ID recommendations. Continue with quetiapine to address patient's hallucinations per psychiatry. Consider checking paraneoplastic encephalitis panel, serum test. I see that she has already had anti-BERTRAM 65 antibodies checked previously, which were negative. A full panel would also include NMDA receptor antibodies. Nonetheless, her current neurological examination does not suggest encephalitis. Also, she has no known history of malignancy with negative imaging evaluations recently in this regard. If she does have Lewy body dementia, I would expect development of progressive memory loss and other parkinsonian signs and symptoms. In her case, however, the hallucinations, which are also auditory, seem out of proportion to any underlying cognitive or neurodegenerative process that may be present, at least at this time. I would not initiate any specific symptomatic treatment for possible Lewy body disease in this patient, at this time. Outpatient formal neuropsychological evaluation may be worthwhile, to more fully assess her cognitive status, and at least obtain a baseline which may be useful for comparison going forward. History of Present Illness Reason for Consultation: hallucinations Requesting Physician: Mukul Attending Physician: Sabine Escoto MD History of Present Illness The patient is a 63-year-old female who was diagnosed with cryptococcal meningitis in February 2022, presenting with headache, occasional vertigo, as well as auditory and visual hallucinations. She has been treated with antifungal medication and has remained on fluconazole maintenance therapy. She has had several lumbar punctures which indicate resolution of cryptococcal meningitis. She has had several brain MRIs completed as well which suggest progressive cerebellitis with progressive leptomeningeal enhancement of the cerebellum. She does not have a known history of HIV, malignancy, or immunocompromise. No prior history of schizophrenia or significant psychiatric illness. The patient does endorse seeing people and hearing voices that she seems to be aware are not real. She has had some paranoia as well and has been evaluated by psychiatry who expressed some concern for possible Lewy body disease. The patient indicates that she lives alone. She has been following periodically with Dr. Gonzalez in the context of her history of cryptococcal meningitis. Allergies Allergy/AdvReac Type Severity Reaction Status Date / Time Penicillins Allergy Intermediate Hives Verified 06/23/23 20:51 atorvastatin Allergy Unknown CAN'T Verified 06/23/23 20:51 REMEMBER/? RAISED LIVER LEVELS gemfibrozil [From Lopid] Allergy Unknown CAN'T Verified 06/23/23 20:51 REMEMBER/ ? RAISED LIVER LEVELS rosuvastatin AdvReac Intermediate Muscle Pain Verified 06/23/23 20:51 acetaminophen [From Tylenol] AdvReac Unknown CAN NOT Verified 06/23/23 20:51 TAKE D/T LIVER ISSUES ibuprofen AdvReac Unknown liver Verified 06/23/23 20:51 issues Home Medications Medication Instructions Recorded Confirmed Type multivitamin 1 tab PO QAM 09/07/19 06/23/23 History Contour Next Test Strips (blood #300 ea 12/29/20 06/23/23 Rx sugar diagnostic) insulin aspart U-100 100 unit/mL See Rx Instructions subcut TIDM 06/29/22 06/23/23 History (3 mL) subcutaneous pen fluconazole 200 mg tablet 400 mg PO DAILY 11/05/22 06/23/23 History cholecalciferol (vitamin D3) 50 2,000 unit PO DAILY #90 caps 02/10/23 06/23/23 Rx mcg (2,000 unit) capsule cetirizine 10 mg capsule (Zyrtec) 10 mg PO DAILY allergy symptoms 02/25/23 06/23/23 Rx #90 caps betamethasone dipropionate 0.05 % 1 applic topical TID PRN skin 04/08/23 06/23/23 Rx lotion irritation #60 mL venlafaxine 150 mg 150 mg PO QPM #1 cap 04/14/23 06/23/23 Rx capsule,extended release 24 hr (Effexor XR) diphenhydramine HCl 25 mg capsule 25 mg PO TID PRN Allergy Symptoms 04/22/23 06/23/23 History (Allergy (diphenhydramine)) potassium chloride 20 mEq 20 meq PO QAM #90 tabs 04/22/23 06/23/23 Rx tablet,extended release quetiapine 25 mg tablet 25 mg PO HS #30 tabs 05/16/23 06/23/23 Rx fluticasone propionate 50 1 spray intranasal DAILY #16 grams 05/20/23 06/23/23 Rx mcg/actuation nasal spray,suspension (Flonase Allergy Relief) Saccharomyces boulardii 250 mg 250 mg PO BID #20 caps 05/31/23 06/23/23 Rx capsule (Florastor) pantoprazole 40 mg tablet,delayed 40 mg PO BID #180 tabs 06/01/23 06/23/23 Rx release sucralfate 100 mg/mL oral 10 ml PO QID #420 mL 06/14/23 06/23/23 Rx suspension (Carafate) promethazine 12.5 mg tablet 12.5 mg PO TID PRN nausea and 06/15/23 06/23/23 Rx vomiting #30 tabs apixaban 5 mg tablet (Eliquis) 5 mg PO BID #60 tabs 06/21/23 06/23/23 Rx furosemide 20 mg tablet 20 mg PO QAM PRN volume overload 06/21/23 06/23/23 Rx or weight gain #30 tabs insulin glargine 100 unit/mL (3 15 unit (0.15 mL) subcut AMPM #12 06/21/23 06/23/23 Rx mL) subcutaneous pen (Lantus mL Solostar U-100 Insulin) magnesium chloride 64 mg 64 mg PO BID #60 tabs 06/21/23 06/23/23 Rx (magnesium chloride) tablet,delayed release (Mag 64) metoprolol succinate 25 mg 25 mg PO BID #60 tabs 06/21/23 06/23/23 Rx tablet,extended release 24 hr venlafaxine 75 mg capsule,extended 75 mg PO QPM #30 caps 06/21/23 06/23/23 Rx release 24 hr meclizine 12.5 mg tablet 12.5 mg PO QAM #30 tabs 06/23/23 06/23/23 Rx Patient History Medical History Acid reflux Anxiety Cirrhosis of liver FOLLOWS W/ [facility] Stable currently 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[facility] [address] GONZALEZ & INFECTIOUS DISEASE DR Maldonado Diabetes mellitus, type 2 IDDM Glucose fluctuates - since Covid in December 2020 On insulin pump Follows with endocrinology Dupuytren contracture Dyslipidemia History of anesthesia reaction with more recent surgeries seems it is harder to wake up History of atrial fibrillation dx while hospitalized summer 2021 History of COVID-12 January 2021 > [facility], not hospitalized, fever, ear pain- did give infusion in ER No current issues History of DVT (deep vein thrombosis) dx during hospitalization summer 2021 History of gastric ulcer summer 2021 History of pulmonary embolus (PE) dx during hospitalization summer 2021 Hydronephrosis due to obstruction of ureter Hypertension IBS (irritable bowel syndrome) Stable Insomnia Kidney stones FOLLOWS WITH DR FUCHS No current issues - monitoring currently Vertigo Surgical History History of cystoscopy WITH STENTS AND STONE BASKETING History of endoscopy History of lithotripsy History of tonsillectomy and adenoidectomy History of total hip arthroplasty LEFT Hx laparoscopic cholecystectomy Hx of colonoscopy Hx of left cataract extraction Hx of surgical amputation of finger left pinky Hx of total hysterectomy GERALD WITH BSO Hx of tubal ligation Hx of wisdom tooth extraction Status post Dupuytren's fasciectomy Family History Father , age 75 Family history of diabetes mellitus Coronary heart disease Brother Family history of diabetes mellitus Mother , age 67 Family history of diabetes mellitus Heart disease Hypertension Myocardial infarction Grandfather (Paternal) Family history of diabetes mellitus Grandmother (Paternal) Family history of diabetes mellitus Denies family history of Ovarian cancer Prostate cancer Breast cancer Colorectal cancer Social History Smoking Status: Former smoker Tobacco Type: Cigarettes Second Hand Exposure: No; Do You Dip or Chew Tobacco: No; Hx Alcohol Use: No Hx Substance Use: No Preferred Language: [place] Communication Ability: Effective Visual Impairment: No Limitations Hearing Ability: Normal Project Estimator Required: No Beliefs That Will Affect Care: None marital status: Current Living Situation: Alone Current Living Situation Comment: alone current occupational status: employed and disabled 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 How many Children do You have: 2 Feels Safe at Home: Yes Childhood Exposure to Second-Hand Smoke: No Diet: diabetic caffeine: Yes during the past year weight has: increased > 10 lbs Dental Care, Regularly: No Physical Activity Frequency: Does not Exercise Seatbelt Use: always Sunscreen Use: Yes Gender Identity: Female Assistive Devices: None Review of Systems Constitutional: no fever and no chills Eyes: no blind spots and no diplopia Ear, Nose, Mouth, Throat: no hearing loss Respiratory: no cough and no dyspnea Cardiovascular: no chest pain and no palpitations Gastrointestinal: no nausea and no vomiting Genitourinary: no urinary incontinence Musculoskeletal: no back pain, no neck pain, no joint pain and no myalgia Integumentary: no rash and no lesions Neurologic: as per Subjective / HPI; no gait abnormality, no unsteadiness, no localized weakness, no loss of sensation, no lack of coordination, no tremor(s), no abnormal movements, no seizure-like activity, no headache(s) and no memory loss Psychiatric: as per Subjective / HPI, + depression, + paranoia, + auditory hallucinations and + visual hallucinations Hematologic / Lymphatic: no easy bleeding and no easy bruising Exam (Neuro) Constitutional: well developed and cooperative; no acute distress and no behavioral limitations Eyes: normal visual [place] by confrontation, PERRL and EOM intact bilaterally Neurologic: Oriented to:: Person, Place and Time Memory: Short Term Intact and Remote Intact Attention: Span Intact and Concentration Intact Speech Fluency: negative Dysarthria or Dysfluency Speech Aphasia: negative Aphasia Fund of Knowledge: Current Events, Past History and Vocabulary Cranial Nerves: Normal II, III, IV, , V, VII, VIII, IX, X, XI and XII Motor Strength: Normal Lower Extremities and Normal Upper Extremities Motor Tone: Normal Lower Extremities and Normal Upper Extremities Rigidity: None Muscle Bulk/Involuntary Movements: No Involuntary Movements; negative Muscle Atrophy, Intention Tremor, Pill Rolling Tremor, Rest Tremor (Arm), Action Tremor or Head Tremor Sensation: Light Touch Intact, Pain/Temperature Intact, Vibration Intact and Proprioception Intact Coordination: Normal; negative Limited Balance, Dysdiadochokinesia, Finger-Nose Abnormal or Heel-Akhtar Abnormal Deep Tendon Reflexes: Rt Triceps: 2+, Lt Triceps: 2+, Rt Biceps: 2+, Lt Biceps: 2+, Rt Brachioradialis: 2+, Lt Brachioradialis: 2+, Rt Patellar: 2+, Lt Patellar: 2+, Rt Ankle: 1+ and Lt Ankle: 1+ Special Tests: negative Babinski Present Gait: Normal Station and Gait Results & Data Vital Signs (Past 12 Hours) Vital Signs Temp Pulse Pulse Resp BP Pulse Ox O2 Del Method 07/12/23 07:45 36.6 C 65 16 103/66 100 Room Air 07/12/23 00:49 37 C 73 18 109/52 L 95 Room Air Laboratory Results WBC 3.75, hemoglobin 7.2, hematocrit 22.0, MCV 87.3, platelet count 158, sodium 142, potassium 3.7, BUN 47, creatinine 1.23, glucose 91, magnesium 1.8, AST 32, ALT 15, vitamin B12 572, TSH 2.394, hemoglobin A1c 10.5, ammonia 33.0 Lumbar puncture from June 30, 2023 reviewed. CSF clear, colorless, no xanthochromia, CSF WBC 0, RBC 1, glucose 54, LDH 16, CSF total protein 61.8, CSF meningoencephalitis panel negative. Anti-BERTRAM 65 antibody was checked on August 18, 2022, negative Diagnostic Findings Brain MRI completed June 24, 2023 suggested progressive leptomeningeal enhancement of the cerebellum, worse compared with previous MRI done in June 2022. No acute findings, no hemorrhage or infarct. There was also evidence of a moderate degree of chronic microvascular ischemic disease. I independently reviewed these images. EEG completed at [facility] April 11, 2023 was normal. PG Care Time/CCT Total # of Minutes Spent Total Time Spent with Patient: Total time spent is greater than 50% in coordination of care (as documented) at patient's floor/unit and/or counseling patient: Coding Level of Care Code 12791 INT INP/OBS CARE 3/75MIN Diagnoses Hallucinations R44.3 Cryptococcal meningitis B45.1 Time Spent (min) 90
[2023-07-12] MEDS ORDERED: POLYETHYLENE (MIRALAX) 17 GM PACK PO PRN (13:30)
[2023-07-12] MEDS: FLUCONAZOLE 100 MG TAB PO SCH (17:31)
[2023-07-12] MEDS: QUEtiapine FUMARATE 25 MG TABLET PO SCH (21:31)
[2023-07-12] MEDS: VENLAFAXINE HCL XR 150 MG CAPXR PO SCH (21:32)
[2023-07-12] MEDS: VENLAFAXINE HCL XR 75 MG CAPXR PO SCH (21:34)
--- NOTE | 2023-07-13 07:29 | Hospitalist Progress Note ---
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 Hallucinations with leptomeningeal enhancement on MRI -Pt presenting with increase in auditory/visual hallucinations -Likely multifactorial in the setting of concern of continued cryptococcal meningitis, hospital induced delirium; Thought ds -Psych consulted - 07/07: Increased Seroquel qhs to 50mg. Tolerating well -Consult placed to neurology for reevaluation -Ordered PRISCILA 12 panel, to include Sjogren's antibodies, scleroderma antibodies. Also checking ANCA, angiotensin-converting enzyme, rheumatoid factor, CRP, ESR. 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 -fungal blood cx neg -Began liposomal amphotericin (3mg/kg daily) and flucytosine (25 mg/kg QID) 06/25; d/c on 07/05 due to marrow suppression/worsening kidney function -Continuing fluconazole 400 per ID recommendations. -Awaiting outpatient ID input Anemia -Hgb 6.5 on 07/04. No signs of active bleed and vital signs reassuring -Suspect that drop in hemoglobin is secondary to bone marrow suppression from amphotericin/flucytosine -1u PRBC on 07/04 -Continue to monitor CBC Abdominal Pain -Sec to constipation/overflow diarrhea. Miralax tid decreased to daily. -pain improved. Drug-induced ALBINA -resolved with d/cing nephrotoxic antifungals Insulin dependent diabetes mellitus -During previous hospitalization, basal insulin was decreased d/t hypoglycemic episodes -Basal insulin to 10 units BID -Continue SSI: goal 100-140, CF 50, CR 25 Anxiety -Continue home venlafaxine 150mg daily Paroxysmal afib -Continue metoprolol, Eliquis Cirrhosis -Stable; no acute decompensation Gastritis -Continue pantoprazole and sucralfate Dispo: ([facility] seems best fitson working on this) Diet: carb consistent DVT ppx: eliquis (2) Cryptococcal meningitis: (3) Uncontrolled type 2 diabetes mellitus with hyperglycemia, with long-term current use of insulin: (4) Anxiety: (5) Paroxysmal A-fib: (6) Cirrhosis of liver: (7) Hypomagnesemia: (8) Hypokalemia: (9) Gastritis: (10) Hypertension: Admission and Anticipated Discharge Date Admission Date: June 24, 2023 Supervising Physician Co-Signing Physician Notes Resident Physician Supervision Note: I independently interviewed and examined the patient and verified the fish history and physical, reviewed labs and image studies and agree with resident findings and care plan. Subjective Patient seen and examined at bedside. She continues to talk to pictures on her phone. States her son is in the hallway but won't talk to her. She denies any current pain or discomfort. Review of Systems Review of Systems: As per above Physical Exam Constitutional: well developed and well nourished; no acute distress Eyes: + conjunctival abnormality and + anicteric sclerae ENMT: Ears: no external ear abnormality Nose: no external nose abnormality Respiratory: normal respiratory effort, lungs clear to auscultation Cardiovascular: Rate/Rhythm: regular rate and regular rhythm Gastrointestinal (Abdomen): normal bowel sounds, soft, nontender, no hepatosplenomegaly Skin: no rashes, warm and dry Psychiatric: Apperance: + disheveled Hallucinations: + visual hallucinations Results & Data Results & Data Vital Signs (Past 12 Hours) Vital Signs Temp Pulse Resp BP Pulse Ox O2 Del Method 07/13/23 07:14 36.8 C 70 16 117/69 100 Room Air 07/12/23 20:32 36.7 C 74 16 112/55 L 100 Room Air Resident Activity Tracking Resident Involvement: Resident Care Provided Care Provided: Adult Hospital Medicine (10) Hypertension Hypertension type: essential hypertension Qualified Code(s): I10 - Essential (primary) hypertension
[2023-07-13 08:45] LABS: Basophils # (auto) 0.04 K/uL (0.00-0.20); Basophils % (auto) 0.6 %; Eosinophils # (auto) 0.29 K/uL (0.00-0.50); Eosinophils % (auto) 4.1 %; Hematocrit (blood only) 23.8 % (37.0-47.0); Hemoglobin 7.9 g/dl (12.0-16.0); Immature Granulocytes # (auto) 0.02 K/uL (0.01-0.20); Immature Granulocytes % (auto) 0.3 %; Lymphocytes # (auto) 1.69 K/uL (1.20-3.40); Lymphocytes % (auto) 23.8 %; Mean Corpuscular Hemoglobin 28.1 pg (25.0-34.0); Mean Corpuscular Hgb Conc 33.2 g/dL (32.0-36.0); Mean Corpuscular Volume 84.7 fL (80.0-100.0); Mean Platelet Volume 10.4 fL (9.4-12.4); Monocytes % (auto) 9.8 %; Neutrophils # (auto) 4.37 K/uL (1.40-6.50); Neutrophils % (auto) 61.4 %; Platelet Count 237 K/uL (130-400); RDW Coefficient of Variation 18.3 % (11.5-14.5); RDW Standard Deviation 54.6 fL (36.4-46.3); Red Blood Count 2.81 M/uL (4.20-5.40); White Blood Count 7.11 K/ul (4.8-10.8)
[2023-07-13 09:09] LABS: Poikilocytosis Present; Polychromasia 1+
[2023-07-13 09:21] LABS: Albumin Globulin Ratio 1.3 (0.9-2); Albumin Level 3.7 gm/dl (3.4-5.0); BUN Creatinine Ratio 38.2 (10-20); Bilirubin,Total 0.4 mg/dl (0.2-1.0); Creatinine Clr Calc Pharmacy 48.1 ml/min; Est GFR (African American) 67.3 ml/min; Est GFR (Non-African American) 58.1 ml/min; Globulin 2.9 gm/dl (2.5-4.0); Magnesium 1.6 mg/dl (1.7-2.4); Potassium 3.7 mmol/L (3.5-5.1); Total Protein 6.6 gm/dl (6.0-8.3)
[2023-07-13] MEDS: INSULIN ASPART PER UNIT CHARGE SC SCH ×4 (09:54→21:14)
[2023-07-13] MEDS: CHOLECALCIFEROL 1,000 UNITS 25 MCG TAB PO SCH (09:55)
[2023-07-13] MEDS: MULTIVITAMIN TAB PO SCH (09:55)
[2023-07-13] MEDS: FLUTICASONE PROPIONATE NA SPR 16 GM BTL SCH (09:55)
[2023-07-13] MEDS: SACCHAROMYCES BOULARDII 250 MG CAP PO SCH ×2 (09:55→21:00)
[2023-07-13] MEDS: MAGNESIUM CHLORIDE W/CALCIUM 64MG DELAYED REL TAB PO SCH ×2 (09:55→20:59)
[2023-07-13] MEDS: SUCRALFATE 1 GM/10 ML UDC PO SCH ×4 (09:55→21:01)
[2023-07-13] MEDS: APIXABAN 5 MG TABLET PO SCH ×2 (09:55→20:58)
[2023-07-13] MEDS: POTASSIUM CHLORIDE CRTAB 20 MEQ TABCR PO SCH (09:55)
[2023-07-13] MEDS: LANTUS PER UNIT CHARGE SQ SCH ×2 (09:55→21:18)
[2023-07-13] MEDS: PANTOprazole 40 MG TAB PO SCH ×2 (09:55→21:00)
[2023-07-13] MEDS: METOPROLOL SUCC 25MG EXT REL TAB PO SCH ×2 (09:55→21:07)
[2023-07-13] MEDS: FLUCONAZOLE 100 MG TAB PO SCH (18:18)
[2023-07-13] MEDS: VENLAFAXINE HCL XR 150 MG CAPXR PO SCH (20:59)
[2023-07-13] MEDS: QUEtiapine FUMARATE 25 MG TABLET PO SCH (21:00)
[2023-07-13] MEDS: VENLAFAXINE HCL XR 75 MG CAPXR PO SCH (21:02)
--- NOTE | 2023-07-14 07:44 | Hospitalist Progress Note ---
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 Stable for last 4 days. -Psych consulted - 07/07: Increased Seroquel qhs to 50mg. Tolerating well -Consult placed to neurology for reevaluation -Ordered PRISCILA 12 panel, to include Sjogren's antibodies, scleroderma antibodies. Also checking ANCA, angiotensin-converting enzyme, rheumatoid factor, CRP, ESR. 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 -fungal blood cx neg -Began liposomal amphotericin (3mg/kg daily) and flucytosine (25 mg/kg QID) 06/25 for concern of recurrence; d/c on 07/05 due to marrow suppression/worsening kidney function -Continuing fluconazole 400 per ID recommendations. -Discussed with patient's ID physician, Dr. Huggins, and the plan is to continue fluconazole for prophylaxis. Anemia -Hgb 6.5 on 07/04. No signs of active bleed and vital signs reassuring -Suspect that drop in hemoglobin is secondary to bone marrow suppression from amphotericin/flucytosine -1u PRBC on 07/04 -Continue to monitor CBC Abdominal Pain -Sec to constipation/overflow diarrhea. Miralax tid decreased to daily. -pain improved. Drug-induced ALBINA -resolved with d/cing nephrotoxic antifungals Insulin dependent diabetes mellitus -During previous hospitalization, basal insulin was decreased d/t hypoglycemic episodes -Basal insulin 10 units bid -Continue SSI: goal 100-140, CF 50, CR 25 Anxiety -Continue home venlafaxine 150mg daily Paroxysmal afib -Continue metoprolol, Eliquis Cirrhosis -Stable; no acute decompensation Gastritis -Continue pantoprazole and sucralfate Dispo: ([facility] seems best fitson working on this) Diet: carb consistent DVT ppx: eliquis (2) Uncontrolled type 2 diabetes mellitus with hyperglycemia, with long-term current use of insulin: (3) Anxiety: (4) Paroxysmal A-fib: (5) Cirrhosis of liver: (6) Hypomagnesemia: (7) Hypokalemia: (8) Gastritis: (9) Hypertension: Admission and Anticipated Discharge Date Admission Date: June 24, 2023 Supervising Physician Co-Signing Physician Notes Resident Physician Supervision Note: I independently interviewed and examined the patient and verified the fish history and physical, reviewed labs and image studies and agree with resident findings and care plan. Subjective Patient seen and examined at bedside. No acute events reported overnight, she reports that she had breakfast without issue. Notes she had a bowel movement yesterday. Review of Systems Review of Systems: As per above Physical Exam Constitutional: well developed and well nourished; no acute distress Eyes: + conjunctival abnormality and + anicteric sclerae ENMT: Ears: no external ear abnormality Nose: no external nose abnormality Respiratory: normal respiratory effort, lungs clear to auscultation Cardiovascular: Rate/Rhythm: regular rate and regular rhythm Gastrointestinal (Abdomen): normal bowel sounds, soft, nontender, no hepatosplenomegaly Skin: no rashes, warm and dry Psychiatric: Apperance: + disheveled Hallucinations: + visual hallucinations Results & Data Results & Data Vital Signs (Past 12 Hours) Vital Signs Temp Pulse Resp BP Pulse Ox O2 Del Method 07/14/23 07:02 36.5 C 60 16 102/57 L 99 Room Air 07/13/23 21:05 36.6 C 74 18 135/82 97 Room Air Resident Activity Tracking Resident Involvement: Resident Care Provided Care Provided: Adult Hospital Medicine (9) Hypertension Hypertension type: essential hypertension Qualified Code(s): I10 - Essential (primary) hypertension
[2023-07-14] MEDS: INSULIN ASPART PER UNIT CHARGE SC SCH ×4 (08:47→20:46)
[2023-07-14] MEDS: LANTUS PER UNIT CHARGE SQ SCH ×2 (08:47→20:46)
[2023-07-14] MEDS: METOPROLOL SUCC 25MG EXT REL TAB PO SCH ×2 (09:02→20:42)
[2023-07-14] MEDS: CHOLECALCIFEROL 1,000 UNITS 25 MCG TAB PO SCH (09:02)
[2023-07-14] MEDS: POTASSIUM CHLORIDE CRTAB 20 MEQ TABCR PO SCH (09:02)
[2023-07-14] MEDS: MAGNESIUM CHLORIDE W/CALCIUM 64MG DELAYED REL TAB PO SCH ×2 (09:03→20:39)
[2023-07-14] MEDS: SACCHAROMYCES BOULARDII 250 MG CAP PO SCH ×2 (09:03→20:40)
[2023-07-14] MEDS: PANTOprazole 40 MG TAB PO SCH ×2 (09:03→20:40)
[2023-07-14] MEDS: APIXABAN 5 MG TABLET PO SCH ×2 (09:03→20:41)
[2023-07-14] MEDS: SUCRALFATE 1 GM/10 ML UDC PO SCH ×4 (09:04→20:39)
[2023-07-14] MEDS: FLUTICASONE PROPIONATE NA SPR 16 GM BTL SCH (09:04)
[2023-07-14] MEDS: MULTIVITAMIN TAB PO SCH (09:04)
[2023-07-14] MEDS: FLUCONAZOLE 100 MG TAB PO SCH (16:49)
[2023-07-14] MEDS: VENLAFAXINE HCL XR 150 MG CAPXR PO SCH (20:40)
[2023-07-14] MEDS: VENLAFAXINE HCL XR 75 MG CAPXR PO SCH (20:40)
[2023-07-14] MEDS: QUEtiapine FUMARATE 25 MG TABLET PO SCH (20:41)
[2023-07-15] MEDS: CHOLECALCIFEROL 1,000 UNITS 25 MCG TAB PO SCH (07:24)
[2023-07-15] MEDS: APIXABAN 5 MG TABLET PO SCH ×2 (07:24→20:46)
[2023-07-15] MEDS: METOPROLOL SUCC 25MG EXT REL TAB PO SCH ×2 (07:24→20:46)
[2023-07-15] MEDS: SACCHAROMYCES BOULARDII 250 MG CAP PO SCH ×2 (07:25→20:46)
[2023-07-15] MEDS: MULTIVITAMIN TAB PO SCH (07:25)
[2023-07-15] MEDS: POTASSIUM CHLORIDE CRTAB 20 MEQ TABCR PO SCH (07:25)
[2023-07-15] MEDS: PANTOprazole 40 MG TAB PO SCH ×2 (07:26→20:47)
[2023-07-15] MEDS: SUCRALFATE 1 GM/10 ML UDC PO SCH ×4 (07:26→20:45)
[2023-07-15] MEDS: MAGNESIUM CHLORIDE W/CALCIUM 64MG DELAYED REL TAB PO SCH ×2 (07:26→20:47)
[2023-07-15] MEDS: FLUTICASONE PROPIONATE NA SPR 16 GM BTL SCH (07:26)
--- NOTE | 2023-07-15 07:30 | Hospitalist Progress Note ---
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 Stable for last 4 days. -Psych consulted - 07/07: Increased Seroquel qhs to 50mg. Tolerating well -Consult placed to neurology for reevaluation -Ordered PRISCILA 12 panel, to include Sjogren's antibodies, scleroderma antibodies. Also checking ANCA, angiotensin-converting enzyme, rheumatoid factor, CRP, ESR. 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 -fungal blood cx neg -Began liposomal amphotericin (3mg/kg daily) and flucytosine (25 mg/kg QID) 06/25 for concern of recurrence; d/c on 07/05 due to marrow suppression/worsening kidney function -Continuing fluconazole 400 per ID recommendations. -Discussed with patient's ID physician, Dr. Huggins, and the plan is to continue fluconazole for prophylaxis. Anemia -Hgb 6.5 on 07/04. No signs of active bleed and vital signs reassuring -Suspect that drop in hemoglobin is secondary to bone marrow suppression from amphotericin/flucytosine -1u PRBC on 07/04 -Continue to monitor CBC Abdominal Pain -Sec to constipation/overflow diarrhea. Miralax tid decreased to daily. -pain improved. Drug-induced ALBINA -resolved with d/cing nephrotoxic antifungals Insulin dependent diabetes mellitus -During previous hospitalization, basal insulin was decreased d/t hypoglycemic episodes -Basal insulin 10 units bid -Continue SSI: goal 100-140, CF 50, CR 25 Anxiety -Continue home venlafaxine 150mg daily Paroxysmal afib -Continue metoprolol, Eliquis Cirrhosis -Stable; no acute decompensation Gastritis -Continue pantoprazole and sucralfate Dispo: ([facility] seems best fitson working on this) Diet: carb consistent DVT ppx: eliquis (2) Uncontrolled type 2 diabetes mellitus with hyperglycemia, with long-term current use of insulin: (3) Anxiety: (4) Paroxysmal A-fib: (5) Cirrhosis of liver: (6) Hypomagnesemia: (7) Hypokalemia: (8) Gastritis: (9) Hypertension: Admission and Anticipated Discharge Date Admission Date: June 24, 2023 Supervising Physician Co-Signing Physician Notes Resident Physician Supervision Note: I independently interviewed and examined the patient and verified the fish history and physical, reviewed labs and image studies and agree with resident findings and care plan. Subjective Patient seen and examined at bedside. No acute events reported overnight. Was sitting in bed eating breakfast during encounter. Review of Systems Review of Systems: As per above Physical Exam Constitutional: well developed and well nourished; no acute distress Eyes: + conjunctival abnormality and + anicteric sclerae ENMT: Ears: no external ear abnormality Nose: no external nose abnormality Respiratory: normal respiratory effort, lungs clear to auscultation Cardiovascular: Rate/Rhythm: regular rate and regular rhythm Gastrointestinal (Abdomen): normal bowel sounds, soft, nontender, no hepatosplenomegaly Skin: no rashes, warm and dry Results & Data Results & Data Vital Signs (Past 12 Hours) Vital Signs Temp Pulse Resp BP Pulse Ox O2 Del Method 07/15/23 07:10 36.6 C 68 14 100/60 99 Room Air 07/14/23 20:00 Room Air 07/14/23 20:47 36.7 C 74 17 99/61 L 100 Room Air Resident Activity Tracking Resident Involvement: Resident Care Provided Care Provided: Adult Hospital Medicine (9) Hypertension Hypertension type: essential hypertension Qualified Code(s): I10 - Essential (primary) hypertension
[2023-07-15] MEDS: LANTUS PER UNIT CHARGE SQ SCH ×2 (08:22→20:47)
[2023-07-15] MEDS: INSULIN ASPART PER UNIT CHARGE SC SCH ×4 (08:22→20:47)
[2023-07-15] MEDS: FLUCONAZOLE 100 MG TAB PO SCH (17:11)
[2023-07-15] MEDS: QUEtiapine FUMARATE 25 MG TABLET PO SCH (20:45)
[2023-07-15] MEDS: VENLAFAXINE HCL XR 150 MG CAPXR PO SCH (20:46)
[2023-07-15] MEDS: VENLAFAXINE HCL XR 75 MG CAPXR PO SCH (20:47)
[2023-07-16] MEDS: QUEtiapine FUMARATE 25 MG TABLET PO PRN (00:38)
--- NOTE | 2023-07-16 06:48 | Hospitalist Progress Note ---
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 Stable for last 4 days. -Psych consulted - 07/07: Increased Seroquel qhs to 50mg. Tolerating well -Consult placed to neurology for reevaluation -Ordered PRISCILA 12 panel, to include Sjogren's antibodies, scleroderma antibodies. Also checking ANCA, angiotensin-converting enzyme, rheumatoid factor, CRP, ESR. 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 -fungal blood cx neg -Began liposomal amphotericin (3mg/kg daily) and flucytosine (25 mg/kg QID) 06/25 for concern of recurrence; d/c on 07/05 due to marrow suppression/worsening kidney function -Continuing fluconazole 400 per ID recommendations. -Discussed with patient's ID physician, Dr. Huggins, and the plan is to continue fluconazole for prophylaxis. Anemia -1u PRBC on 07/04 -Suspect that drop in hemoglobin is secondary to bone marrow suppression from amphotericin/flucytosine -Hgb of 6.8 in a.m. labs, 10 AM H&H was 7.9, we will hold off on blood transfusion at this time and check hemoglobin in the morning in daily labs. -Continue to monitor CBC in daily labs. Abdominal Pain -Sec to constipation/overflow diarrhea. Miralax tid decreased to daily. -pain improved. Drug-induced ALBINA -resolved with d/cing nephrotoxic antifungals Insulin dependent diabetes mellitus -During previous hospitalization, basal insulin was decreased d/t hypoglycemic episodes -Basal insulin 10 units bid -Continue SSI: goal 100-140, CF 50, CR 25 Anxiety -Continue home venlafaxine 150mg daily Paroxysmal afib -Continue metoprolol, Eliquis Cirrhosis -Stable; no acute decompensation Gastritis -Continue pantoprazole and sucralfate Dispo: ([facility] seems best fitson working on this) Diet: carb consistent DVT ppx: eliquis (2) Uncontrolled type 2 diabetes mellitus with hyperglycemia, with long-term current use of insulin: (3) Anxiety: (4) Paroxysmal A-fib: (5) Cirrhosis of liver: (6) Hypomagnesemia: (7) Hypokalemia: (8) Gastritis: (9) Hypertension: Admission and Anticipated Discharge Date Admission Date: June 24, 2023 Supervising Physician Co-Signing Physician Notes Resident Physician Supervision Note: I independently interviewed and examined the patient and verified the fish history and physical, reviewed labs and image studies and agree with resident findings and care plan. Subjective Patient was seen bedside this morning. She is alert and oriented x3. She states that she feels good. No issues or concerns at this time. Review of Systems Review of Systems: All systems reviewed & are unremarkable except as noted in Subjective Physical Exam Constitutional: well developed and well nourished; no acute distress Eyes: + conjunctival abnormality and + anicteric sclerae ENMT: Ears: no external ear abnormality Nose: no external nose abnormality Respiratory: normal respiratory effort, lungs clear to auscultation Cardiovascular: Rate/Rhythm: regular rate and regular rhythm Gastrointestinal (Abdomen): normal bowel sounds, soft, nontender, no hepatosplenomegaly Skin: no rashes, warm and dry Results & Data Results & Data Vital Signs (Past 12 Hours) Vital Signs Temp Pulse Resp BP Pulse Ox O2 Del Method 07/15/23 20:00 Room Air 07/15/23 20:20 37.0 C 73 18 104/65 98 Room Air Resident Activity Tracking Resident Involvement: Resident Care Provided Care Provided: Adult Hospital Medicine (9) Hypertension Hypertension type: essential hypertension Qualified Code(s): I10 - Essential (primary) hypertension
[2023-07-16 07:00] LABS: Hematocrit (blood only) 20.8 % (37.0-47.0); Hemoglobin 6.8 g/dl (12.0-16.0); Mean Corpuscular Hemoglobin 28.3 pg (25.0-34.0); Mean Corpuscular Hgb Conc 32.7 g/dL (32.0-36.0); Mean Corpuscular Volume 86.7 fL (80.0-100.0); Mean Platelet Volume 10.7 fL (9.4-12.4); Platelet Count 140 K/uL (130-400); RDW Coefficient of Variation 18.6 % (11.5-14.5); RDW Standard Deviation 57.3 fL (36.4-46.3); White Blood Count 4.58 K/ul (4.8-10.8)
[2023-07-16 07:20] LABS: Basophils # (auto) 0.04 K/uL (0.00-0.20); Basophils % (auto) 0.9 %; Eosinophils # (auto) 0.18 K/uL (0.00-0.50); Eosinophils % (auto) 3.9 %; Immature Granulocytes # (auto) 0.01 K/uL (0.01-0.20); Immature Granulocytes % (auto) 0.2 %; Lymphocytes # (auto) 1.78 K/uL (1.20-3.40); Lymphocytes % (auto) 38.9 %; Monocytes % (auto) 13.1 %; Neutrophils # (auto) 1.97 K/uL (1.40-6.50); Polychromasia 1+
[2023-07-16 07:33] LABS: Albumin Globulin Ratio 1.3 (0.9-2); Albumin Level 3.3 gm/dl (3.4-5.0); BUN Creatinine Ratio 27.5 (10-20); Bilirubin,Total 0.4 mg/dl (0.2-1.0); Creatinine Clr Calc Pharmacy 35.6 ml/min; Est GFR (African American) 46.7 ml/min; Est GFR (Non-African American) 40.3 ml/min; Globulin 2.5 gm/dl (2.5-4.0); Magnesium 1.5 mg/dl (1.7-2.4); Potassium 3.7 mmol/L (3.5-5.1); Total Protein 5.8 gm/dl (6.0-8.3)
[2023-07-16] MEDS: FLUTICASONE PROPIONATE NA SPR 16 GM BTL SCH (08:03)
[2023-07-16] MEDS: METOPROLOL SUCC 25MG EXT REL TAB PO SCH ×2 (08:04→20:18)
[2023-07-16] MEDS: APIXABAN 5 MG TABLET PO SCH ×2 (08:04→20:17)
[2023-07-16] MEDS: CHOLECALCIFEROL 1,000 UNITS 25 MCG TAB PO SCH (08:04)
[2023-07-16] MEDS: POTASSIUM CHLORIDE CRTAB 20 MEQ TABCR PO SCH (08:04)
[2023-07-16] MEDS: SACCHAROMYCES BOULARDII 250 MG CAP PO SCH ×2 (08:04→20:16)
[2023-07-16] MEDS: PANTOprazole 40 MG TAB PO SCH ×2 (08:04→20:17)
[2023-07-16] MEDS: SUCRALFATE 1 GM/10 ML UDC PO SCH ×4 (08:05→20:16)
[2023-07-16] MEDS: MAGNESIUM CHLORIDE W/CALCIUM 64MG DELAYED REL TAB PO SCH ×2 (08:05→20:18)
[2023-07-16] MEDS: MULTIVITAMIN TAB PO SCH (08:05)
[2023-07-16] MEDS: MAGNESIUM SULFATE / D5W 1 GM/100 ML BAG IV SCH ×2 (08:11→10:19)
[2023-07-16] MEDS: LANTUS PER UNIT CHARGE SQ SCH ×2 (09:24→20:22)
[2023-07-16] MEDS: INSULIN ASPART PER UNIT CHARGE SC SCH ×4 (09:24→20:20)
[2023-07-16 10:02] LABS: Hematocrit (blood only) 24.6 % (37.0-47.0); Hemoglobin 7.9 g/dl (12.0-16.0)
[2023-07-16] MEDS: QUEtiapine FUMARATE 25 MG TABLET PO SCH (20:17)
[2023-07-16] MEDS: VENLAFAXINE HCL XR 150 MG CAPXR PO SCH (20:17)
[2023-07-16] MEDS: VENLAFAXINE HCL XR 75 MG CAPXR PO SCH (20:18)
[2023-07-16] MEDS: ONDANSETRON 4 MG OD TAB PO PRN (23:39)
[2023-07-17 07:24] LABS: Basophils # (auto) 0.04 K/uL (0.00-0.20); Basophils % (auto) 0.7 %; Eosinophils # (auto) 0.18 K/uL (0.00-0.50); Eosinophils % (auto) 3.1 %; Hematocrit (blood only) 22.9 % (37.0-47.0); Hemoglobin 7.4 g/dl (12.0-16.0); Immature Granulocytes # (auto) 0.02 K/uL (0.01-0.20); Immature Granulocytes % (auto) 0.3 %; Lymphocytes # (auto) 1.57 K/uL (1.20-3.40); Lymphocytes % (auto) 27.2 %; Mean Corpuscular Hemoglobin 28.5 pg (25.0-34.0); Mean Corpuscular Hgb Conc 32.3 g/dL (32.0-36.0); Mean Corpuscular Volume 88.1 fL (80.0-100.0); Mean Platelet Volume 10.8 fL (9.4-12.4); Monocytes # (auto) 0.65 K/uL (0.11-0.59); Monocytes % (auto) 11.3 %; Neutrophils # (auto) 3.31 K/uL (1.40-6.50); Neutrophils % (auto) 57.4 %; Platelet Count 166 K/uL (130-400); RDW Coefficient of Variation 18.8 % (11.5-14.5); White Blood Count 5.77 K/ul (4.8-10.8)
--- NOTE | 2023-07-17 07:31 | Hospitalist Progress Note ---
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 Stable for last 4 days. -Psych consulted - 07/07: Increased Seroquel qhs to 50mg. Tolerating well -Consult placed to neurology for reevaluation -Ordered PRISCILA 12 panel, to include Sjogren's antibodies, scleroderma antibodies. Also checking ANCA, angiotensin-converting enzyme, rheumatoid factor, CRP, ESR. 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 -fungal blood cx neg -Began liposomal amphotericin (3mg/kg daily) and flucytosine (25 mg/kg QID) 06/25 for concern of recurrence; d/c on 07/05 due to marrow suppression/worsening kidney function -Continuing fluconazole 400 per ID recommendations. -Discussed with patient's ID physician, Dr. Huggins, and the plan is to continue fluconazole for prophylaxis. Anemia -1u PRBC on 07/04 -Suspect that drop in hemoglobin is secondary to bone marrow suppression from amphotericin/flucytosine -Had slight dip in hemoglobin on 07/16 which resolved without any intervention. -Continue to monitor CBC in daily labs. Abdominal Pain -Sec to constipation/overflow diarrhea. Miralax tid decreased to daily. -pain improved. Drug-induced ALBINA -resolved with d/cing nephrotoxic antifungals Insulin dependent diabetes mellitus -During previous hospitalization, basal insulin was decreased d/t hypoglycemic episodes -Basal insulin 10 units bid -Continue SSI: goal 100-140, CF 35, CR 12 Anxiety -Continue home venlafaxine 150mg daily Paroxysmal afib -Continue metoprolol, Eliquis Cirrhosis -Stable; no acute decompensation Gastritis -Continue pantoprazole and sucralfate Dispo: ([facility] seems best fitson working on this) pending placement at this time, medically stable for discharge. Diet: carb consistent DVT ppx: eliquis (2) Uncontrolled type 2 diabetes mellitus with hyperglycemia, with long-term current use of insulin: (3) Anxiety: (4) Paroxysmal A-fib: (5) Cirrhosis of liver: (6) Hypomagnesemia: (7) Hypokalemia: (8) Gastritis: (9) Hypertension: Admission and Anticipated Discharge Date Admission Date: June 24, 2023 Supervising Physician Co-Signing Physician Notes Resident Physician Supervision Note: I independently interviewed and examined the patient and verified the fish history and physical, reviewed labs and image studies and agree with resident findings and care plan. Subjective Patient was seen bedside this morning. She has no issues or complaints at this time. She is currently pending placement at this time. Review of Systems Review of Systems: All systems reviewed & are unremarkable except as noted in Subjective Physical Exam Constitutional: well developed and well nourished; no acute distress Eyes: + conjunctival abnormality and + anicteric sclerae ENMT: Ears: no external ear abnormality Nose: no external nose abnormality Respiratory: normal respiratory effort, lungs clear to auscultation Cardiovascular: Rate/Rhythm: regular rate and regular rhythm Gastrointestinal (Abdomen): normal bowel sounds, soft, nontender, no hepatosplenomegaly Skin: no rashes, warm and dry Resident Activity Tracking Resident Involvement: Resident Care Provided Care Provided: Adult [facility] Medicine (9) Hypertension Hypertension type: essential hypertension Qualified Code(s): I10 - Essential (primary) hypertension
[2023-07-17 07:49] LABS: Poikilocytosis Present; Polychromasia 1+
[2023-07-17] MEDS: INSULIN ASPART PER UNIT CHARGE SC SCH ×4 (09:05→20:29)
[2023-07-17] MEDS: LANTUS PER UNIT CHARGE SQ SCH ×2 (09:05→20:34)
[2023-07-17] MEDS: CHOLECALCIFEROL 1,000 UNITS 25 MCG TAB PO SCH (09:06)
[2023-07-17] MEDS: APIXABAN 5 MG TABLET PO SCH ×2 (09:06→20:28)
[2023-07-17] MEDS: MAGNESIUM CHLORIDE W/CALCIUM 64MG DELAYED REL TAB PO SCH ×2 (09:07→20:28)
[2023-07-17] MEDS: MULTIVITAMIN TAB PO SCH (09:07)
[2023-07-17] MEDS: FLUTICASONE PROPIONATE NA SPR 16 GM BTL SCH (09:07)
[2023-07-17] MEDS: METOPROLOL SUCC 25MG EXT REL TAB PO SCH ×2 (09:07→20:28)
[2023-07-17] MEDS: PANTOprazole 40 MG TAB PO SCH ×2 (09:08→20:28)
[2023-07-17] MEDS: SUCRALFATE 1 GM/10 ML UDC PO SCH ×4 (09:08→20:28)
[2023-07-17] MEDS: POTASSIUM CHLORIDE CRTAB 20 MEQ TABCR PO SCH (09:08)
[2023-07-17] MEDS: SACCHAROMYCES BOULARDII 250 MG CAP PO SCH ×2 (09:08→20:29)
[2023-07-17] MEDS: VENLAFAXINE HCL XR 75 MG CAPXR PO SCH (20:28)
[2023-07-17] MEDS: QUEtiapine FUMARATE 25 MG TABLET PO SCH (20:28)
[2023-07-17] MEDS: VENLAFAXINE HCL XR 150 MG CAPXR PO SCH (20:28)
[2023-07-18 07:45] LABS: Hematocrit (blood only) 22.5 % (37.0-47.0); Hemoglobin 7.4 g/dl (12.0-16.0); Mean Corpuscular Hemoglobin 28.6 pg (25.0-34.0); Mean Corpuscular Hgb Conc 32.9 g/dL (32.0-36.0); Mean Corpuscular Volume 86.9 fL (80.0-100.0); Mean Platelet Volume 10.6 fL (9.4-12.4); Platelet Count 148 K/uL (130-400); RDW Coefficient of Variation 18.7 % (11.5-14.5); RDW Standard Deviation 58.1 fL (36.4-46.3); Red Blood Count 2.59 M/uL (4.20-5.40); White Blood Count 4.54 K/ul (4.8-10.8)
--- NOTE | 2023-07-18 07:47 | Hospitalist Progress Note ---
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 Stable for last 4 days. -Psych consulted - 07/07: Increased Seroquel qhs to 50mg. Tolerating well -Consult placed to neurology for reevaluation -Ordered PRISCILA 12 panel, to include Sjogren's antibodies, scleroderma antibodies. Also checking ANCA, angiotensin-converting enzyme, rheumatoid factor, CRP, ESR. -CRP slightly elevated, other blood work pending -continue supportive care -Having some hallucinations on 07/18. Will monitor for now and hold off on further Seroquel or other sedating meds at this time. 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 -fungal blood cx neg -Began liposomal amphotericin (3mg/kg daily) and flucytosine (25 mg/kg QID) 06/25 for concern of recurrence; d/c on 07/05 due to marrow suppression/worsening kidney function -Continuing fluconazole 400 per ID recommendations. -Discussed with patient's ID physician, Dr. Huggins, and the plan is to continue fluconazole for prophylaxis. Anemia -1u PRBC on 07/04 -Suspect that drop in hemoglobin is secondary to bone marrow suppression from amphotericin/flucytosine -Had slight dip in hemoglobin on 07/16 which resolved without any intervention. -Continue to monitor CBC in daily labs. Abdominal Pain -Sec to constipation/overflow diarrhea. Miralax tid decreased to daily. -pain improved. Drug-induced ALBINA -resolved with d/cing nephrotoxic antifungals Insulin dependent diabetes mellitus -During previous hospitalization, basal insulin was decreased d/t hypoglycemic episodes -Basal insulin 10 units bid -Continue SSI: goal 100-140, CF 35, CR 12 Anxiety -Continue home venlafaxine 150mg daily Paroxysmal afib -Continue metoprolol, Eliquis Cirrhosis -Stable; no acute decompensation Gastritis -Continue pantoprazole and sucralfate Dispo:Family working with case management; pending placement at this time, medically stable for discharge. Diet: carb consistent DVT ppx: eliquis (2) Uncontrolled type 2 diabetes mellitus with hyperglycemia, with long-term current use of insulin: (3) Anxiety: (4) Paroxysmal A-fib: (5) Cirrhosis of liver: (6) Hypomagnesemia: (7) Hypokalemia: (8) Gastritis: (9) Hypertension: Admission and Anticipated Discharge Date Admission Date: June 24, 2023 Supervising Physician Co-Signing Physician Notes I personally examined the patient and verified all fish points of history and exam, discussed case, and agree with decision making with Dr Lynn Feeling okay. No notable hallucinations today. Still pending personal careshe is not sure how far her son has gotten on things. She would very much like to go home. Vitals noted, in general she is awake and alert oriented pleasant no distress. HEENT normocephalic atraumatic mucous membranes moist. Breathing unlabored no accessory muscle use good effort. Skin shows no rashes no pallor or icterus. Neuro without focal deficits. Hallucinationsseems to be at least indirectly "fall out" from her cryptococcal meningitisID does not see any evidence of active infection. Neurology and psychiatry input appreciated. Unfortunately home is a difficult issue because she is not safe at home alone, but does not appear to qualify for SNF or rehab, son is working on personal care arrangements. otherwise as above Subjective Patient was seen bedside this morning. She states that she is frustrated because she "got last night and no one told her". She is actively denyi ng any hallucinations but states that someone is messing with her. Review of Systems Review of Systems: Unobtainable due to cognitive status Physical Exam Constitutional: well developed and well nourished; no acute distress Eyes: + conjunctival abnormality and + anicteric sclerae ENMT: Ears: no external ear abnormality Nose: no external nose abnormality Respiratory: normal respiratory effort, lungs clear to auscultation Cardiovascular: Rate/Rhythm: regular rate and regular rhythm Gastrointestinal (Abdomen): normal bowel sounds, soft, nontender, no hepatosplenomegaly Skin: no rashes, warm and dry Results & Data Results & Data Vital Signs (Past 12 Hours) Vital Signs Temp Pulse Resp BP Pulse Ox O2 Del Method 07/18/23 07:12 36.4 C L 64 16 105/64 99 Room Air 07/17/23 20:26 36.7 C 63 16 109/67 100 Room Air Laboratory Results 07/18/23 07:18 07/18/23 07:18 Resident Activity Tracking Resident Involvement: Resident Care Provided Care Provided: Adult Hospital Medicine (9) Hypertension Hypertension type: essential hypertension Qualified Code(s): I10 - Essential (primary) hypertension
[2023-07-18 08:11] LABS: Albumin Globulin Ratio 1.3 (0.9-2); Albumin Level 3.4 gm/dl (3.4-5.0); BUN Creatinine Ratio 32.5 (10-20); Bilirubin,Total 0.4 mg/dl (0.2-1.0); Calcium 9.6 mg/dl (8.6-10.3); Creatinine Clr Calc Pharmacy 40.9 ml/min; Est GFR (African American) 55.3 ml/min; Est GFR (Non-African American) 47.7 ml/min; Globulin 2.7 gm/dl (2.5-4.0); Potassium 4.2 mmol/L (3.5-5.1); Total Protein 6.1 gm/dl (6.0-8.3)
[2023-07-18] MEDS: PANTOprazole 40 MG TAB PO SCH ×2 (08:40→20:00)
[2023-07-18] MEDS: SUCRALFATE 1 GM/10 ML UDC PO SCH ×4 (08:40→20:00)
[2023-07-18] MEDS: MAGNESIUM CHLORIDE W/CALCIUM 64MG DELAYED REL TAB PO SCH ×2 (08:41→20:00)
[2023-07-18] MEDS: METOPROLOL SUCC 25MG EXT REL TAB PO SCH ×2 (08:41→20:00)
[2023-07-18] MEDS: POTASSIUM CHLORIDE CRTAB 20 MEQ TABCR PO SCH (08:41)
[2023-07-18] MEDS: APIXABAN 5 MG TABLET PO SCH ×2 (08:41→20:00)
[2023-07-18] MEDS: LANTUS PER UNIT CHARGE SQ SCH ×2 (08:42→20:01)
[2023-07-18] MEDS: CHOLECALCIFEROL 1,000 UNITS 25 MCG TAB PO SCH (08:42)
[2023-07-18] MEDS: MULTIVITAMIN TAB PO SCH (08:42)
[2023-07-18] MEDS: SACCHAROMYCES BOULARDII 250 MG CAP PO SCH ×2 (08:43→20:00)
[2023-07-18] MEDS: FLUTICASONE PROPIONATE NA SPR 16 GM BTL SCH (09:18)
[2023-07-18] MEDS: INSULIN ASPART PER UNIT CHARGE SC SCH ×4 (09:18→19:56)
--- NOTE | 2023-07-18 18:42 | Billing Data ---
Date of Service July 18, 2023 Coding Level of Care Code 22658 SUB INP/OBS CARE
[2023-07-18] MEDS: QUEtiapine FUMARATE 25 MG TABLET PO SCH (20:00)
[2023-07-18] MEDS: VENLAFAXINE HCL XR 75 MG CAPXR PO SCH (20:00)
[2023-07-18] MEDS: VENLAFAXINE HCL XR 150 MG CAPXR PO SCH (20:00)
[2023-07-19] MEDS: QUEtiapine FUMARATE 25 MG TABLET PO PRN (06:19)
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
[2023-07-19] MEDS: PANTOprazole 40 MG TAB PO SCH ×2 (08:37→20:57)
[2023-07-19] MEDS: CHOLECALCIFEROL 1,000 UNITS 25 MCG TAB PO SCH (08:37)
[2023-07-19] MEDS: MAGNESIUM CHLORIDE W/CALCIUM 64MG DELAYED REL TAB PO SCH ×2 (08:37→20:57)
[2023-07-19] MEDS: MULTIVITAMIN TAB PO SCH (08:37)
[2023-07-19] MEDS: METOPROLOL SUCC 25MG EXT REL TAB PO SCH ×2 (08:37→20:57)
[2023-07-19] MEDS: APIXABAN 5 MG TABLET PO SCH ×2 (08:37→20:57)
[2023-07-19] MEDS: SACCHAROMYCES BOULARDII 250 MG CAP PO SCH ×2 (08:37→20:57)
[2023-07-19] MEDS: POTASSIUM CHLORIDE CRTAB 20 MEQ TABCR PO SCH (08:37)
[2023-07-19] MEDS: SUCRALFATE 1 GM/10 ML UDC PO SCH ×4 (08:39→20:58)
[2023-07-19] MEDS: LANTUS PER UNIT CHARGE SQ SCH ×2 (08:44→20:58)
[2023-07-19] MEDS: INSULIN ASPART PER UNIT CHARGE SC SCH ×4 (08:44→20:59)
--- OUTSIDE RECORDS SUMMARY | 2023-07-19 10:10 | External Medical Summary | Summary of Care ---
Author Name Unknown Organization [facility] Address [address] [place] [address] Phone [phone] Care Team Providers Care Cake Cutter Machine Name Role Phone Leia Doyle DO Primary Care Provider [phone] Reason for Visit * Reason Onset Date Comments Medication Refill 02/15/2023 Encounter Details Date Type Department Care Team Description 02/15/2023 Refill Gastroenterology, [address] [address] Leslye Huggins MD [address] [place] [address] Allergies Active Allergy Reactions Severity Noted Date Comments Penicillins Hives 03/13/2022 Statins 11/26/2022 Acetaminophen 03/13/2022 Intolerance due to cirrhosis documented as of this encounter (statuses as of 02/17/2023) Medications Medication Sig Dispensed Refills Start Date End Date Status Multivitamin Adult Oral Tablet Chewable Take by mouth . 0 Active Dexcom G6 Sensor Use as directed . 0 A ctive Mirtazapine 15 MG Oral Tablet (Remeron) Take 2 Tablets by mouth at bedtime. 0 Active Venlafaxine HCl ER 150 MG Oral Capsule Extended Release 24 Hour (Effexor XR) Take 2 Capsules by mouth in the morning. At bedtime. 0 Active Metoprolol Succinate ER 25 MG Oral Tablet Extended Release 24 Hour (Toprol XL) Take by mouth 1 Tablet in the morning. 30 Tablet 0 03/20/2022 Active Potassium Chloride Sharon ER 10 MEQ Oral Tablet Extended Release Take by mouth 2 Tablets in the morning. 12 Tablet 0 03/20/2022 Active Ondansetron HCl 4 MG Oral Tablet Take by mouth 1 Tablet every 8 hours as needed for Nausea. 20 Tablet 0 03/20/2022 Active Omnipod DASH Pods (Gen 4) USE 1 CARTIRIDGE SUBCUTANEOUSLY EVERY 48 HOURS 0 12/14/2021 Active Insulin Glargine 100 UNIT/ML Subcutaneous Solution 68 Units at bedtime. 0 Acti ve Warfarin Sodium 1 MG Oral Tablet (Coumadin) Take by mouth every evening. 0 Active Furosemide 20 MG Oral Tablet (Lasix) Take 1 Tablet by mouth in the morning and 1 Tablet before bedtime. 0 Active Pantoprazole Sodium 40 MG Oral Tablet Delayed Release Take 1 Tablet by mouth in the morning and 1 Tablet in the evening. 0 Active Meclizine HCl 12.5 MG Oral Tablet (Antivert) Take 1 Tablet by mouth 3 times a day as needed. 0 Active Magnesium 400 MG Oral Tablet Take by mouth 2 times a day. Using daily 0 Active documented as of this encounter (statuses as of 02/17/2023) Active Problems Problem Noted Date New onset a-fib 03/16/2022 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 Anemia 03/13/2022 Shortness of breath documented as of this encounter (statuses as of 02/17/2023) Social History Tobacco Use Types Packs/Day Years Used Date Smoking Tobacco: Never Smokeless Tobacco: Never Alcohol Use Standard Drinks/Week Comments Never 0 (1 standard drink = 0.6 oz pur e alcohol) Sex Assigned at Date Recorded Not on file Job Start Date Occupation Industry Not on file Not on file Not on file documented as of this encounter Miscellaneous Notes * Telephone Encounter - Leslye Huggins MD - 02/15/2023 5:28 PM EDTRefused Prescriptions: Disp Refills Fluconazole 200 MG Oral Tablet (Diflucan) 180 Ta*3 Sig: Take 2 Tablets by mouth in the morning. Refused By: LESLYE HUGGNIS Reason for Refusal: Other (comment below) * Telephone Encounter - Lizette Silva RN - 02/15/2023 3:11 PM EDT Received refill request for Fluconazole from [facility] in [place]. Pended refill, please sign if you agree Thanks documented in this encounter Plan of Treatment Health Maintenance Due Date Last Done Comments Lipid Panel 1960 COVID-19 Vaccine (#1) 1960 Pneumococcal Vaccine: Pediatrics (0 to 5 Years) and At-Risk Patients (6 to 64 Years) (1 - PCV) 1965 Depression Screening, Annual for Pts 12 and Over 1971 HIV Screening 1974 Albumin/Creatinine Ratio 1977 DIABETES-EYE EXAM 1977 DIABETES-FOOT EXAM 1977 Hepatitis C Screening 1977 DTaP,Tdap,and Td Vaccines (1 - Tdap) 1978 Mammogram 1999 Cologuard 2004 Colonoscopy 2004 Colorectal Cancer Screening 2004 Fecal Occult Blood Test 2004 Sigmoidoscopy 2004 Zoster Vaccines (1 of 2) 2009 HbA1c 09/13/2022 03/14/2022 Influenza Vaccine (FLU shot) (Season Ended) 2023 GFR 12/07/2023 12/06/2022, 03/26, 03/23/2022, Additional history exists GARDASIL-HPV IMMUNIZATION SERIES Aged Out No longer eligible based on patient's age to complete this topic Hepatitis B Aged Out No longer eligi ble based on patient's age to complete this topic MENINGOCOCCAL (MENACTRA/MENVEO) Aged Out No longer eligible based on patient's age to complete this topic documented as of this encounter Medical Devices Not on filedocumented as of this encounter Advance Directives Latest Code Status on File Code Status Date Activated Date Inactivated Comments Full Code 03/13/2022 2:27 AM 03/20/2022 7:20 PM This order reflects the patients wishes and were consensually agreed upon. Care Teams Cake Cutter Machine Relationship Specialty Start Date End Date Leia Doyle DO [address] [facility] [address] [place] [address] PCP - General Family Medicine 08/03/22 documented as of this encounter
--- OUTSIDE RECORDS SUMMARY | 2023-07-19 10:10 | External Medical Summary | Summary of Care ---
Author Name Unknown Organization [facility] Address [address] [place] [address] Phone [phone] Care Team Providers Care Motor Vehicle Parts Interpreter Name Role Phone Leia Doyle DO Primary Care Provider [phone]- [phone] Reason for Visit * Reason Onset Date Comments case management 06/22/2023 Encounter Details Date Type Department Care Team Description 06/22/2023 Telephone Care Coordination [address], [place] [id number] Digna Cardenas RN [address] [place], [place] [id number] case management Allergies Active Allergy Reactions Severity Noted Date Comments Penicillins Hives 03/13/2022 Statins 11/26/2022 Acetaminophen 03/13/2022 Intolerance due to cirrhosis documented as of this encounter (statuses as of 06/22/2023) Medications Medication Sig Dispensed Refills Start Date [...] times a day. Using daily 0 Active Fluconazole 200 MG Oral Tablet (Diflucan) Take 2 Tablets by mouth in the morning. 90 Tablet 3 02/15/2023 Active documented as of this encounter (statuses as of 06/22/2023) Active Problems Problem Noted Date New onset a-fib 03/16/2022 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 Anemia 03/13/2022 Shortness of breath documented as of this encounter (statuses as of 06/22/2023) Social History Tobacco Use Types Packs/Day Years [...] encounter Miscellaneous Notes * Telephone Encounter - Digna Cardenas RN - 06/22/2023 12:31 PM EDT Follow-up Post Discharge Attempted Phone Call First Attempt Call Outcome Left Voicemail/Message Plan To attempt another outreach documented in this encounter Plan of Treatment Health Maintenance Due Date Last Done Comments Lipid Panel 1960 COVID-19 Vaccine (#1) 1959 Pneumococcal Vaccine: Pediatrics (0 to 5 Years) and At-Risk Patients (6 to 64 Years) (1 - PCV) 1965 Depression Screening 1971 HIV Screening 1974 Albumin/Creatinine Ratio 1977 DIABETES-EYE EXAM 1977 Diabetic Foot Exam 1977 Hepatitis C Screening 1977 DTaP,Tdap,and Td Vaccines (1 - Tdap) 1978 Mammogram 1999 Cologuard 2004 Colonoscopy 2004 Colorectal Cancer Screening 2004 Fecal Occult Blood Test 2004 Sigmoidoscopy 2004 Zoster Vaccines (1 of 2) 2009 HbA1c 09/13/2022 03/14/2022 Influenza Vaccine (FLU shot) (#1) 2023 GFR 12/07/2023 12/06/2022, 03/26, 03/23/2022, Additional [...] and were consensually agreed upon. Care Teams Motor Vehicle Parts Interpreter Relationship Specialty Start Date End Date Leia Doyle DO [address] [address] PCP - General Family Medicine 08/03/22 documented as of this encounter
--- NOTE | 2023-07-19 10:26 | Neurology Progress Note ---
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 Fortunately she is had some depression and visual hallucinations not completely help with current medication including quetiapine (50 mg each evening) and venlafaxine (225 mg daily). Although the recent MRI of the brain showed some progressive cerebellar leptomeningeal enhancement, the rest of her brain was stable on her LP has shown no evidence of infection. There is still low-grade inflammation however. The patient has had some difficulty tolerating fluconazole but has managed to continue on 400 mg day. Her neurologic state has continued/progressed on this dose prior to this admission. Fluconazole is fungistatic as opposed to amphotericin or flucytosine which are fungicidal. Patient did not tolerate amphotericin. Back in March of 2022 she had DVT and was put on Eliquis. She was also on aspirin for small-vessel ischemic disease. By April of 2022 she developed hematemesis and GI bleeding. After healing she is been put back on the Eliquis but is not on an antiplatelet medication. I am uncertain how much of her clinical picture is due to medication effect versus residual [employer] cryptococcal inflammation. The etiology of her cryptococcus neoformans infection was not apparent. Typically, it would be breathed in, as the yeast lives in the soil, and then hematogenously spread to the [employer]. It is associated with birds (such as chickens or pigeons) but the patient does not have an obvious exposure. In a recent study, of non-HIV patients with cryptococcal meningitis, 30% had no obvious cause / source. She is somewhat immunocompromised with the hepatic cirrhosis and inadequately controlled diabetes. She had not been on steroids. Laboratory studies for rheumatologic/immunologic disease are pending. Although there has been some concern for possible Lewy body disease in this patient, I am not certain that she has a dementia. Lewy body disease or Lewy body dementia is typically characterized by visual hallucinations, rather than auditory hallucinations. She is perhaps mildly bradykinetic, but otherwise does not have a resting tremor or other obvious parkinsonian signs on examination. Recommendations: 1. Consider increase in quetiapine, but I would defer this to Psychiatry. 2. Defer patient ID for other potential treatments for cryptococcal meningitis maintenance besides fluconazole 3. Unfortunately I do not have any other specific neurologic recommendations to make at this time, although we are awaiting labs drawn earlier 4. Contact me if I can be of further assistance Overall, I spent a total of 65 minutes with this case including review of records, review of MRI films, direct evaluation the patient at bedside, report generation, and discussing the case with the patient and RN at bedside, and Dr. Conn including differential diagnosis and treatment options Admission and Anticipated Discharge Date Admission Date: June 24, 2023 Subjective Patient currently has no complaint of pain, headache, double vision, dizziness, weakness, or numbness. When we started talking about her visual hallucinations, she was very adamant that they were real and not hallucinations and that they were very concerning to her as she felt threatened by the men. Nurse reports that she is still having visual hallucinations. CBC shows significant anemia. Chem profile July 18 was remarkable for an elevated BUN and glucose of 254 AST and alk-phos were elevated as well MRI of the brain June 24 showed moderate old small-vessel ischemic disease as before + some enhancement of the leptomeninges around the cerebellum, increased compared to the previous study of June 2022. I reviewed these films. LP was performed June 30 and revealed no white cells 1 red cell, protein of 61 and no cryptococcus was detected. In June of 2022, LP showed a protein of 62.7, 8 white cells and a cryptococcal antigen titer of 1-4. The LP this month showed no yeast or fungus on cultures and Gram stain was negative no bacteria growth I last saw the patient as an outpatient November of 2022. At that time she was on fluconazole 400 mg a day and doing fairly well with no significant headaches and tolerating this dose from a GI standpoint. The patient had depression which was stable on venlafaxine 300 mg in the evening and mirtazapine 30 mg in the evening as well.. Results & Data Vital Signs (Past 12 Hours) Vital Signs Temp Pulse Resp BP Pulse Ox O2 Del Method 07/19/23 06:01 36.8 C 85 16 124/73 100 Room Air Exam (Neuro) Physical Exam: The patient is awake, alert, pleasant, and cooperative. Her mood is down and she can get tearful at times talking about her medical situation and visual hallucinations. She follows one-step commands well. The patient recognized me by name and was oriented. Extraocular eye muscles are intact without nystagmus. There is no facial droop. Tongue is midline. Pupils are 3 mm bilaterally reactive to light. Coordination is normal in the arms without tremor or ataxia. There was good facility in the hands. Strength is 5/5 diffusely in all major muscle groups in arms and legs both proximally distally with good tone and no atrophy. Reflexes were 1/4 throughout. Gait was narrow based and stable with good arm swing and turns. PG Care Time/CCT Total # of Minutes Spent Total Time Spent with Patient: Total time spent is greater than 50% in coordination of care (as documented) at patient's floor/unit and/or counseling patient: Coding Level of Care Code 91912 SUB INP/OBS CARE 3/50MIN Diagnoses Cryptococcal meningitis B45.1 Hallucinations R44.3 Time Spent (min) 65
[2023-07-19] MEDS: FLUTICASONE PROPIONATE NA SPR 16 GM BTL SCH (12:25)
--- NOTE | 2023-07-19 20:13 | Billing Data ---
Date of Service July 19, 2023 Coding Level of Care Code 40400 SUB INP/OBS CARE
[2023-07-19] MEDS: QUEtiapine FUMARATE 25 MG TABLET PO SCH (20:57)
[2023-07-19] MEDS: VENLAFAXINE HCL XR 75 MG CAPXR PO SCH (20:57)
[2023-07-19] MEDS: VENLAFAXINE HCL XR 150 MG CAPXR PO SCH (20:57)
[2023-07-20 01:36] LABS: ANCA Screen Negative (Negative); Angiotensin Converting Enzyme 61 U/L (9-67); Anti Cardiolipin Ab IgG <2.0 GPL-U/mL; Anti Cardiolipin Ab IgM <2.0 MPL-U/mL; Anti Nuclear Antibody Screen NEGATIVE (NEGATIVE); Anti-Cardiolipin Ab IgA <2.0 APL-U/mL; Anti-Centromere Ab <1.0 NEG AI (<1.0 NEG); Anti-SS-A <1.0 NEG AI (<1.0 NEG); Anti-SS-B <1.0 NEG AI (<1.0 NEG); Chromatin Antibody <1.0 NEG AI (<1.0 NEG); Complement C3 114 mg/dL (83-193); DNA ds Crithidia NEGATIVE (NEGATIVE); Microsomal Ab <1 IU/mL (<9); Myeloperoxidase Ab <1.0 AI (<1.0); Proteinase-3 AB <1.0 AI (<1.0); RNP Antibody <1.0 NEG AI (<1.0 NEG); Rheumatoid Factor <14 IU/mL (<14); Scleroderma Anti Scl-70 Ab <1.0 NEG AI (<1.0 NEG); Sm Antibody <1.0 NEG AI (<1.0 NEG)
--- NOTE | 2023-07-20 06:45 | Hospitalist Progress Note ---
Date of Service July 20, 2023 Assessment & Plan (1) Hallucinations: (2) Uncontrolled type 2 diabetes mellitus with hyperglycemia, with long-term current use of insulin: (3) Anxiety: (4) Paroxysmal A-fib: (5) Cirrhosis of liver: (6) Hypomagnesemia: (7) Hypokalemia: (8) Gastritis: (9) Hypertension: Plan Lynne Ye is 63 year-old female with PMH of cryptococcal meningitis w/ associated auditory/visual hallucinations, cirrhosis, DM2, afib, hypomagnesemia, hypokalemia, HLD, peripheral edema, anxiety, depression, gastritis, and HTN presenting with an increase in her hallucinations. 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 Stable for last 4 days. -Psych consulted - 07/07: Increased Seroquel qhs to 50mg. Tolerating well -Consult placed to neurology for reevaluation -Ordered PRISCILA 12 panel, to include Sjogren's antibodies, scleroderma antibodies. Also checking ANCA, angiotensin-converting enzyme, rheumatoid facto r, CRP, ESR. -CRP slightly elevated, all other labs negative. -continue supportive care -Neurology reevaluated on 07/19 stating not much they can add from a neurological standpoint in terms of her hallucinations. Recommend continue following with psych and ID. -Having some hallucinations again starting on 07/18. Otherwise stable at this point. Hallucinations improving. 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 -fungal blood cx neg -Began liposomal amphotericin (3mg/kg daily) and flucytosine (25 mg/kg QID) 06/25 for concern of recurrence; d/c on 07/05 due to marrow suppression/worsening kidney function -Continuing fluconazole 400 per ID recommendations. -Discussed with patient's ID physician, Dr. Huggins, and the plan is to continue fluconazole for prophylaxis. Anemia -1u PRBC on 07/04 -Suspect that drop in hemoglobin is secondary to bone marrow suppression from amphotericin/flucytosine -Had slight dip in hemoglobin on 07/16 which resolved without any intervention. -CBC every other day. Abdominal Pain -Sec to constipation/overflow diarrhea. Miralax tid decreased to daily. -pain improved. Drug-induced ALBINA -resolved with d/cing nephrotoxic antifungals Insulin dependent diabetes mellitus -During previous hospitalization, basal insulin was decreased d/t hypoglycemic episodes -Basal insulin 10 units bid -Continue SSI: goal 100-140, CF 35, CR 12 Anxiety -Continue home venlafaxine 150mg daily Paroxysmal afib -Continue metoprolol, Eliquis Cirrhosis -Stable; no acute decompensation Gastritis -Continue pantoprazole and sucralfate Dispo:Family working with case management; pending placement at this time, medically stable for discharge. Diet: carb consistent DVT ppx: eliquis Admission and Anticipated Discharge Date Admission Date: June 24, 2023 Supervising Physician Co-Signing Physician Notes I personally examined the patient and verified all fish points of history and exam, discussed case, and agree with decision making with Dr Lynn Feeling okay. denies hallucinations today. son present - did paperwork for [employer] today - just needs to get them financial information - expecting to get that in tomorrow. discussed plans/next steps. Vitals noted, in general she is awake and alert oriented appears somewhat tense and more withdrawn no distress. HEENT normocephalic atraumatic mucous membranes moist. Breathing unlabored no accessory muscle use good effort. Skin shows no rashes no pallor or icterus. Neuro without focal deficits. Hallucinationsseems to be at least indirectly "fall out" from her cryptococcal meningitisID does not see any evidence of active infection. Neurology and psychiatry input appreciated. Unfortunately home is a difficult issue because she is not safe at home alone, but does not appear to qualify for SNF or rehab, son is working on personal care arrangements. stable today. outpt anticipate close PCP follow up, ongoing ID follow up w Dr Huggins, possible intermittent assistance with psych otherwise as above Subjective Patient seen bedside this morning. She is doing better than yesterday. No issues or concerns today. Review of Systems Review of Systems: All systems reviewed & are unremarkable except as noted in Subjective Physical Exam Constitutional: well developed and well nourished; no acute distress Eyes: + conjunctival abnormality and + anicteric sclerae ENMT: Ears: no external ear abnormality Nose: no external nose abnormality Respiratory: normal respiratory effort, lungs clear to auscultation Cardiovascular: Rate/Rhythm: regular rate and regular rhythm Gastrointestinal (Abdomen): normal bowel sounds, soft, nontender, no hepatosplenomegaly Skin: no rashes, warm and dry Results & Data Results & Data Vital Signs (Past 12 Hours) Vital Signs Temp Pulse Resp BP Pulse Ox O2 Del Method 07/19/23 20:35 36.6 C 72 16 120/75 100 Room Air Resident Activity Tracking Resident Involvement: Resident Care Provided Care Provided: Adult Hospital Medicine (9) Hypertension Hypertension type: essential hypertension Qualified Code(s): I10 - Essential (primary) hypertension
[2023-07-20] MEDS: APIXABAN 5 MG TABLET PO SCH ×2 (08:48→20:17)
[2023-07-20] MEDS: FLUTICASONE PROPIONATE NA SPR 16 GM BTL SCH (08:49)
[2023-07-20] MEDS: CHOLECALCIFEROL 1,000 UNITS 25 MCG TAB PO SCH (08:49)
[2023-07-20] MEDS: MAGNESIUM CHLORIDE W/CALCIUM 64MG DELAYED REL TAB PO SCH ×2 (08:49→20:17)
[2023-07-20] MEDS: METOPROLOL SUCC 25MG EXT REL TAB PO SCH ×2 (08:49→20:17)
[2023-07-20] MEDS: MULTIVITAMIN TAB PO SCH (08:50)
[2023-07-20] MEDS: SACCHAROMYCES BOULARDII 250 MG CAP PO SCH ×2 (08:50→20:16)
[2023-07-20] MEDS: POTASSIUM CHLORIDE CRTAB 20 MEQ TABCR PO SCH (08:50)
[2023-07-20] MEDS: PANTOprazole 40 MG TAB PO SCH ×2 (08:50→20:16)
[2023-07-20] MEDS: SUCRALFATE 1 GM/10 ML UDC PO SCH ×4 (08:50→20:16)
[2023-07-20 08:56] LABS: Hematocrit (blood only) 22.6 % (37.0-47.0); Hemoglobin 7.2 g/dl (12.0-16.0); Mean Corpuscular Hemoglobin 28.3 pg (25.0-34.0); Mean Corpuscular Hgb Conc 31.9 g/dL (32.0-36.0); Mean Platelet Volume 11.1 fL (9.4-12.4); Platelet Count 139 K/uL (130-400); RDW Coefficient of Variation 18.5 % (11.5-14.5); RDW Standard Deviation 58.3 fL (36.4-46.3); Red Blood Count 2.54 M/uL (4.20-5.40); White Blood Count 5.76 K/ul (4.8-10.8)
[2023-07-20] MEDS: LANTUS PER UNIT CHARGE SQ SCH ×2 (09:07→20:53)
[2023-07-20] MEDS: INSULIN ASPART PER UNIT CHARGE SC SCH ×4 (09:07→20:52)
[2023-07-20 10:43] LABS: Albumin Level 3.4 gm/dl (3.4-5.0); Bilirubin,Total 0.4 mg/dl (0.2-1.0); Calcium 9.5 mg/dl (8.6-10.3); Magnesium 1.7 mg/dl (1.7-2.4); Potassium 4.1 mmol/L (3.5-5.1)
[2023-07-20 10:49] LABS: Albumin Globulin Ratio 1.3 (0.9-2); BUN Creatinine Ratio 31.6 (10-20); Creatinine Clr Calc Pharmacy 36.9 ml/min; Est GFR (African American) 48.8 ml/min; Est GFR (Non-African American) 42.1 ml/min; Globulin 2.7 gm/dl (2.5-4.0); Total Protein 6.1 gm/dl (6.0-8.3)
--- NOTE | 2023-07-20 18:57 | Billing Data ---
Date of Service July 20, 2023 Coding Level of Care Code 52937 SUB INP/OBS CARE
[2023-07-20] MEDS: VENLAFAXINE HCL XR 150 MG CAPXR PO SCH (20:16)
[2023-07-20] MEDS: VENLAFAXINE HCL XR 75 MG CAPXR PO SCH (20:16)
[2023-07-20] MEDS: QUEtiapine FUMARATE 25 MG TABLET PO SCH (20:17)
[2023-07-21] MEDS: ONDANSETRON 4 MG OD TAB PO PRN (04:38)
--- NOTE | 2023-07-21 07:04 | Hospitalist Progress Note ---
Date of Service July 21, 2023 Assessment & Plan (1) Hallucinations: (2) Uncontrolled type 2 diabetes mellitus with hyperglycemia, with long-term current use of insulin: (3) Anxiety: (4) Paroxysmal A-fib: (5) Cirrhosis of liver: (6) Hypomagnesemia: (7) Hypokalemia: (8) Gastritis: (9) Hypertension: Plan Lynne Ye is 63 year-old female with PMH of cryptococcal meningitis w/ associated auditory/visual hallucinations, cirrhosis, DM2, afib, hypomagnesemia, hypokalemia, HLD, peripheral edema, anxiety, depression, gastritis, and HTN presenting with an increase in her hallucinations. 07/21: No major changes to plan below. Pending placement. 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 Stable for last 4 days. -Psych consulted - 07/07: Increased Seroquel qhs to 50mg. Tolerating well -Consult placed to neurology for reevaluation -Ordered PRISCILA 12 panel, to include Sjogren's antibodies, scleroderma antibodies. Also checking ANCA, angiotensin-converting enzyme, rheumatoid factor, CRP, ESR. -CRP slightly elevated, all other labs negative. -continue supportive care -Neurology reevaluated on 07/19 stating not much they can add from a neurological standpoint in terms of her hallucinations. Recommend continue following with psych and ID. -Having some hallucinations again starting on 07/18. Otherwise stable at this point. Hallucinations improving. 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 -fungal blood cx neg -Began liposomal amphotericin (3mg/kg daily) and flucytosine (25 mg/kg QID) 06/25 for concern of recurrence; d/c on 07/05 due to marrow suppression/worsening kidney function -Continuing fluconazole 400 per ID recommendations. -Discussed with patient's ID physician, Dr. Huggins, and the plan is to continue fluconazole for prophylaxis. Anemia -1u PRBC on 07/04 -Suspect that drop in hemoglobin is secondary to bone marrow suppression from amphotericin/flucytosine -Had slight dip in hemoglobin on 07/16 which resolved without any intervention. -CBC every other day. Abdominal Pain -Sec to constipation/overflow diarrhea. Miralax tid decreased to daily. -pain improved. Drug-induced ALBINA -resolved with d/cing nephrotoxic antifungals Insulin dependent diabetes mellitus -During previous hospitalization, basal insulin was decreased d/t hypoglycemic episodes -Basal insulin 10 units bid -Continue SSI: goal 100-140, CF 35, CR 12 Anxiety -Continue home venlafaxine 150mg daily Paroxysmal afib -Continue metoprolol, Eliquis Cirrhosis -Stable; no acute decompensation Gastritis -Continue pantoprazole and sucralfate Dispo:Family working with case management; pending placement at this time, medically stable for discharge. Diet: carb consistent DVT ppx: eliquis Admission and Anticipated Discharge Date Admission Date: June 24, 2023 Supervising Physician Co-Signing Physician Notes I personally examined the patient and verified all fish points of history and exam, discussed case, and agree with decision making with Dr Lynn hopefully will have [facility] soon. Vitals noted, in general she is awake and alert oriented appears somewhat tense and more withdrawn no distress. HEENT normocephalic atraumatic mucous membranes moist. Breathing unlabored no accessory muscle use good effort. Skin shows no rashes no pallor or icterus. Neuro without focal deficits. Hallucinationsseems to be at least indirectly "fall out" from her cryptococcal meningitisID does not see any evidence of active infection. Neurology and psychiatry input appreciated. Unfortunately home is a difficult issue because she is not safe at home alone, but does not appear to qualify for SNF or rehab, son is working on personal care arrangements. stable again today. outpt anticipate close PCP follow up, ongoing ID follow up w Dr Huggins, possible intermittent assistance with psych otherwise as above Subjective Patient was seen bedside this morning. No issues or concerns at this time. Review of Systems Review of Systems: All systems reviewed & are unremarkable except as noted in Subjective Physical Exam Constitutional: well developed and well nourished; no acute distress Eyes: + conjunctival abnormality and + anicteric sclerae ENMT: Ears: no external ear abnormality Nose: no external nose abnormality Respiratory: normal respiratory effort, lungs clear to auscultation Cardiovascular: Rate/Rhythm: regular rate and regular rhythm Gastrointestinal (Abdomen): normal bowel sounds, soft, nontender, no hepatosplenomegaly Skin: no rashes, warm and dry Neurologic: patellar DTR's 2+ bilat, sensation intact Results & Data Results & Data Vital Signs (Past 12 Hours) Vital Signs Temp Pulse Resp BP Pulse Ox O2 Del Method 07/21/23 06:41 36.6 C 69 16 102/63 98 Room Air 07/20/23 20:33 37.0 C 74 16 110/67 96 Room Air 07/20/23 20:13 36.8 C 72 16 117/69 100 Room Air Resident Activity Tracking Resident Involvement: Resident Care Provided Care Provided: Adult Hospital Medicine (9) Hypertension Hypertension type: essential hypertension Qualified Code(s): I10 - Essential (primary) hypertension
[2023-07-21] MEDS: METOPROLOL SUCC 25MG EXT REL TAB PO SCH ×2 (08:38→21:31)
[2023-07-21] MEDS: SACCHAROMYCES BOULARDII 250 MG CAP PO SCH ×2 (08:39→21:31)
[2023-07-21] MEDS: MAGNESIUM CHLORIDE W/CALCIUM 64MG DELAYED REL TAB PO SCH ×2 (08:39→21:29)
[2023-07-21] MEDS: CHOLECALCIFEROL 1,000 UNITS 25 MCG TAB PO SCH (08:39)
[2023-07-21] MEDS: MULTIVITAMIN TAB PO SCH (08:39)
[2023-07-21] MEDS: POTASSIUM CHLORIDE CRTAB 20 MEQ TABCR PO SCH (08:39)
[2023-07-21] MEDS: PANTOprazole 40 MG TAB PO SCH ×2 (08:39→21:30)
[2023-07-21] MEDS: SUCRALFATE 1 GM/10 ML UDC PO SCH ×4 (08:39→21:28)
[2023-07-21] MEDS: APIXABAN 5 MG TABLET PO SCH ×2 (08:39→21:30)
[2023-07-21] MEDS: FLUTICASONE PROPIONATE NA SPR 16 GM BTL SCH (08:39)
[2023-07-21] MEDS: INSULIN ASPART PER UNIT CHARGE SC SCH ×4 (08:42→21:38)
[2023-07-21] MEDS: LANTUS PER UNIT CHARGE SQ SCH ×2 (08:42→21:38)
--- NOTE | 2023-07-21 09:06 | Billing Data ---
Date of Service July 21, 2023 Coding Level of Care Code 47848 SUB INP/OBS CARE
[2023-07-21] MEDS: VENLAFAXINE HCL XR 150 MG CAPXR PO SCH (21:29)
[2023-07-21] MEDS: QUEtiapine FUMARATE 25 MG TABLET PO SCH (21:29)
[2023-07-21] MEDS: VENLAFAXINE HCL XR 75 MG CAPXR PO SCH (21:32)
--- NOTE | 2023-07-22 08:17 | Hospitalist Progress Note ---
Date of Service July 22, 2023 Assessment & Plan (1) Hallucinations: (2) Uncontrolled type 2 diabetes mellitus with hyperglycemia, with long-term current use of insulin: (3) Anxiety: (4) Paroxysmal A-fib: (5) Cirrhosis of liver: (6) Hypomagnesemia: (7) Hypokalemia: (8) Gastritis: (9) Hypertension: Plan Lynne Ye is 63 year-old female with PMH of cryptococcal meningitis w/ associated auditory/visual hallucinations, cirrhosis, DM2, afib, hypomagnesemia, hypokalemia, HLD, peripheral edema, anxiety, depression, gastritis, and HTN presenting with an increase in her hallucinations. 07/22: No major changes to plan below. Pending placement. Otherwise, as below. 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 Stable for last 4 days. -Psych consulted - 07/07: Increased Seroquel qhs to 50mg. Tolerating well -Consult placed to neurology for reevaluation -Ordered PRISCILA 12 panel, to include Sjogren's antibodies, scleroderma antibodies. Also checking ANCA, angiotensin-converting enzyme, rheumatoid factor, CRP, ESR. -CRP slightly elevated, all other labs negative. -continue supportive care -Neurology reevaluated on 07/19 stating not much they can add from a neurological standpoint in terms of her hallucinations. Recommend continue following with psych and ID. -Having some hallucinations again starting on 07/18. Otherwise stable at this point. Hallucinations improving. 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 -fungal blood cx neg -Began liposomal amphotericin (3mg/kg daily) and flucytosine (25 mg/kg QID) 06/25 for concern of recurrence; d/c on 07/05 due to marrow suppression/worsening kidney function -Continuing fluconazole 400 per ID recommendations. -Discussed with patient's ID physician, Dr. Huggins, and the plan is to continue fluconazole for prophylaxis. Anemia -1u PRBC on 07/04 -Suspect that drop in hemoglobin is secondary to bone marrow suppression from amphotericin/flucytosine -Had slight dip in hemoglobin on 07/16 which resolved without any intervention. -CBC every other day. Abdominal Pain -Sec to constipation/overflow diarrhea. Miralax tid decreased to daily. -pain improved. Drug-induced ALBINA -resolved with d/cing nephrotoxic antifungals Insulin dependent diabetes mellitus -During previous hospitalization, basal insulin was decreased d/t hypoglycemic episodes -Basal insulin 10 units bid -Continue SSI: goal 100-140, CF 35, CR 12 Anxiety -Continue home venlafaxine 150mg daily Paroxysmal afib -Continue metoprolol, Eliquis Cirrhosis -Stable; no acute decompensation Gastritis -Continue pantoprazole and sucralfate Dispo:Family working with case management; pending placement at this time, medically stable for discharge. Diet: carb consistent DVT ppx: eliquis Admission and Anticipated Discharge Date Admission Date: June 24, 2023 Supervising Physician Co-Signing Physician Notes I personally examined the patient and verified all fish points of history and ex am, discussed case, and agree with decision making with Dr Lynn looking at her phone upside down and upset that she can't find her shoes. Vitals noted, in general she is awake and alert oriented appears somewhat tense and more withdrawn no distress. HEENT normocephalic atraumatic mucous membranes moist. Breathing unlabored no accessory muscle use good effort. Skin shows no rashes no pallor or icterus. Neuro without focal deficits. Hallucinationsseems to be at least indirectly "fall out" from her cryptococcal meningitisID does not see any evidence of active infection. Neurology and psychiatry input appreciated. Unfortunately home is a difficult issue because she is not safe at home alone, but does not appear to qualify for SNF or rehab, son is working on personal care arrangements. outpt anticipate close PCP follow up, ongoing ID follow up w Dr Huggins, possible intermittent assistance with psych otherwise as above Subjective Patient was seen bedside this AM. She currently has no issues or complaints this time. She is currently pending placement at this time. Review of Systems Review of Systems: All systems reviewed & are unremarkable except as noted in Subjective Physical Exam Constitutional: well developed and well nourished; no acute distress Eyes: + conjunctival abnormality and + anicteric sclerae ENMT: Ears: no external ear abnormality Nose: no external nose abnormality Respiratory: normal respiratory effort, lungs clear to auscultation Cardiovascular: Rate/Rhythm: regular rate and regular rhythm Gastrointestinal (Abdomen): normal bowel sounds, soft, nontender, no hepatosplenomegaly Skin: no rashes, warm and dry Neurologic: patellar DTR's 2+ bilat, sensation intact Results & Data Results & Data Vital Signs (Past 12 Hours) Vital Signs Temp Pulse Resp BP Pulse Ox O2 Del Method 07/22/23 07:59 36.5 C 68 16 101/60 97 Room Air 07/21/23 20:49 36.7 C 84 16 129/81 99 Room Air Resident Activity Tracking Resident Involvement: Resident Care Provided Care Provided: Adult Hospital Medicine (9) Hypertension Hypertension type: essential hypertension Qualified Code(s): I10 - Essential (primary) hypertension
[2023-07-22] MEDS: SACCHAROMYCES BOULARDII 250 MG CAP PO SCH ×2 (08:21→20:24)
[2023-07-22] MEDS: POTASSIUM CHLORIDE CRTAB 20 MEQ TABCR PO SCH (08:22)
[2023-07-22] MEDS: PANTOprazole 40 MG TAB PO SCH ×2 (08:22→20:24)
[2023-07-22] MEDS: FLUTICASONE PROPIONATE NA SPR 16 GM BTL SCH (08:22)
[2023-07-22] MEDS: MULTIVITAMIN TAB PO SCH (08:22)
[2023-07-22] MEDS: CHOLECALCIFEROL 1,000 UNITS 25 MCG TAB PO SCH (08:23)
[2023-07-22] MEDS: APIXABAN 5 MG TABLET PO SCH ×2 (08:23→20:24)
[2023-07-22] MEDS: MAGNESIUM CHLORIDE W/CALCIUM 64MG DELAYED REL TAB PO SCH ×2 (08:23→20:34)
[2023-07-22] MEDS: SUCRALFATE 1 GM/10 ML UDC PO SCH ×4 (08:24→20:24)
[2023-07-22] MEDS: METOPROLOL SUCC 25MG EXT REL TAB PO SCH ×2 (08:31→20:24)
[2023-07-22] MEDS: LANTUS PER UNIT CHARGE SQ SCH ×2 (09:03→20:23)
[2023-07-22] MEDS: INSULIN ASPART PER UNIT CHARGE SC SCH ×4 (09:03→20:23)
--- NOTE | 2023-07-22 18:24 | Billing Data ---
Date of Service July 22, 2023 Coding Level of Care Code 99585 SUB INP/OBS CARE
[2023-07-22] MEDS: VENLAFAXINE HCL XR 150 MG CAPXR PO SCH (20:24)
[2023-07-22] MEDS: QUEtiapine FUMARATE 25 MG TABLET PO SCH (20:34)
[2023-07-22] MEDS: VENLAFAXINE HCL XR 75 MG CAPXR PO SCH (20:36)
--- NOTE | 2023-07-23 06:53 | Hospitalist Progress Note ---
Date of Service July 23, 2023 Assessment & Plan (1) Hallucinations: (2) Uncontrolled type 2 diabetes mellitus with hyperglycemia, with long-term current use of insulin: (3) Anxiety: (4) Paroxysmal A-fib: (5) Cirrhosis of liver: (6) Hypomagnesemia: (7) Hypokalemia: (8) Gastritis: (9) Hypertension: Plan Lynne Ye is 63 year-old female with PMH of cryptococcal meningitis w/ associated auditory/visual hallucinations, cirrhosis, DM2, afib, hypomagnesemia, hypokalemia, HLD, peripheral edema, anxiety, depression, gastritis, and HTN presenting with an increase in her hallucinations. 07/23: No major changes to plan below. Some neck pain that is most likely musculoskeletal, will monitor with serial exams. Pending placement. Otherwise, as below. 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 Stable for last 4 days. -Psych consulted - 07/07: Increased Seroquel qhs to 50mg. Tolerating well -Consult placed to neurology for reevaluation -Ordered PRISCILA 12 panel, to include Sjogren's antibodies, scleroderma antibodies. Also checking ANCA, angiotensin-converting enzyme, rheumatoid factor, CRP, ESR. -CRP slightly elevated, all other labs negative. -continue supportive care -Neurology reevaluated on 07/19 stating not much they can add from a neurological standpoint in terms of her hallucinations. Recommend continue following with psych and ID. -Having some hallucinations again starting on 07/18. Otherwise stable at this point. Hallucinations improving. -Some neck pain on 07/23, believe this to be musculoskeletal in nature rather than any other concerning etiologies. We will continue monitor with serial exams. 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 -fungal blood cx neg -Began liposomal amphotericin (3mg/kg daily) and flucytosine (25 mg/kg QID) 06/25 for concern of recurrence; d/c on 07/05 due to marrow suppression/worsening kidney function -Continuing fluconazole 400 per ID recommendations. -Discussed with patient's ID physician, Dr. Huggins, and the plan is to continue fluconazole for prophylaxis. Anemia -1u PRBC on 07/04 -Suspect that drop in hemoglobin is secondary to bone marrow suppression from amphotericin/flucytosine -Had slight dip in hemoglobin on 07/16 which resolved without any intervention. -CBC every other day. Abdominal Pain -Sec to constipation/overflow diarrhea. Miralax tid decreased to daily. -pain improved. Drug-induced ALBINA -resolved with d/cing nephrotoxic antifungals Insulin dependent diabetes mellitus -During previous hospitalization, basal insulin was decreased d/t hypoglycemic episodes -Basal insulin 10 units bid -Continue SSI: goal 100-140, CF 35, CR 12 Anxiety -Continue home venlafaxine 150mg daily Paroxysmal afib -Continue metoprolol, Eliquis Cirrhosis -Stable; no acute decompensation Gastritis -Continue pantoprazole and sucralfate Dispo:Family working with case management; pending placement at this time, medically stable for discharge. Diet: carb consistent DVT ppx: eliquis Admission and Anticipated Discharge Date Admission Date: June 24, 2023 Supervising Physician Co-Signing Physician Notes I personally examined the patient and verified all fish points of history and exam, discussed case, and agree with decision making with Dr Lynn had another bad day with being upset/likely paranoid/etc. sleeping when i saw her - allowed her to sleep Vitals noted, in general she is asleep but no distress. HEENT normocephalic atraumatic mucous membranes moist. Breathing unlabored no accessory muscle use good effort. Skin shows no rashes no pallor or icterus. Neuro without focal deficits. Hallucinationsseems to be at least indirectly "fall out" from her cryptococcal meningitisID does not see any evidence of active infection. Neurology and psychiatry input appreciated. Unfortunately home is a difficult issue because she is not safe at home alone, but does not appear to qualify for SNF or rehab, son is working on personal care arrangements. outpt anticipate close PCP follow up, ongoing ID follow up w Dr Huggins, possible intermittent assistance with psych. no changes today but may need to increase baseline psych meds otherwise as above Subjective Patient seen bedside this morning. States that she feels very crappy. States that her neck hurts. Review of Systems Review of Systems: All systems reviewed & are unremarkable except as noted in Subjective Physical Exam Constitutional: well developed and well nourished; no acute distress Eyes: + conjunctival abnormality and + anicteric sclerae ENMT: Ears: no external ear abnormality Nose: no external nose abnormality Respiratory: normal respiratory effort, lungs clear to auscultation Cardiovascular: Rate/Rhythm: regular rate and regular rhythm Gastrointestinal (Abdomen): normal bowel sounds, soft, nontender, no hepatosplenomegaly Skin: no rashes, warm and dry Neurologic: patellar DTR's 2+ bilat, sensation intact Results & Data Results & Data Vital Signs (Past 12 Hours) Vital Signs Temp Pulse Resp BP Pulse Ox O2 Del Method 07/22/23 20:37 37.1 C 79 16 118/80 98 Room Air (9) Hypertension Hypertension type: essential hypertension Qualified Code(s): I10 - Essential (primary) hypertension
[2023-07-23] MEDS: FLUTICASONE PROPIONATE NA SPR 16 GM BTL SCH (08:51)
[2023-07-23] MEDS: MULTIVITAMIN TAB PO SCH (08:51)
[2023-07-23] MEDS: CHOLECALCIFEROL 1,000 UNITS 25 MCG TAB PO SCH (08:52)
[2023-07-23] MEDS: PANTOprazole 40 MG TAB PO SCH ×2 (08:52→20:56)
[2023-07-23] MEDS: POTASSIUM CHLORIDE CRTAB 20 MEQ TABCR PO SCH (08:52)
[2023-07-23] MEDS: MAGNESIUM CHLORIDE W/CALCIUM 64MG DELAYED REL TAB PO SCH ×2 (08:53→20:55)
[2023-07-23] MEDS: APIXABAN 5 MG TABLET PO SCH ×2 (08:53→20:55)
[2023-07-23] MEDS: SACCHAROMYCES BOULARDII 250 MG CAP PO SCH ×2 (08:53→20:55)
[2023-07-23] MEDS: METOPROLOL SUCC 25MG EXT REL TAB PO SCH ×2 (08:54→20:56)
[2023-07-23] MEDS: SUCRALFATE 1 GM/10 ML UDC PO SCH ×4 (08:54→20:55)
[2023-07-23] MEDS: INSULIN ASPART PER UNIT CHARGE SC SCH ×4 (09:00→21:07)
[2023-07-23] MEDS: LANTUS PER UNIT CHARGE SQ SCH ×2 (09:01→21:08)
[2023-07-23 09:25] LABS: Basophils # (auto) 0.06 K/uL (0.00-0.20); Basophils % (auto) 0.8 %; Eosinophils # (auto) 0.26 K/uL (0.00-0.50); Eosinophils % (auto) 3.6 %; Hematocrit (blood only) 23.6 % (37.0-47.0); Hemoglobin 7.8 g/dl (12.0-16.0); Immature Granulocytes # (auto) 0.02 K/uL (0.01-0.20); Immature Granulocytes % (auto) 0.3 %; Lymphocytes # (auto) 1.65 K/uL (1.20-3.40); Lymphocytes % (auto) 22.5 %; Mean Corpuscular Hemoglobin 28.9 pg (25.0-34.0); Mean Corpuscular Hgb Conc 33.1 g/dL (32.0-36.0); Mean Corpuscular Volume 87.4 fL (80.0-100.0); Mean Platelet Volume 10.4 fL (9.4-12.4); Monocytes # (auto) 0.49 K/uL (0.11-0.59); Monocytes % (auto) 6.7 %; Neutrophils # (auto) 4.84 K/uL (1.40-6.50); Neutrophils % (auto) 66.1 %; Platelet Count 148 K/uL (130-400); RDW Coefficient of Variation 18.2 % (11.5-14.5); RDW Standard Deviation 57.1 fL (36.4-46.3); White Blood Count 7.32 K/ul (4.8-10.8)
[2023-07-23 09:38] LABS: BUN Creatinine Ratio 28.9 (10-20); Calcium 9.4 mg/dl (8.6-10.3); Creatinine Clr Calc Pharmacy 40.6 ml/min; Est GFR (African American) 54.8 ml/min; Est GFR (Non-African American) 47.2 ml/min
[2023-07-23 09:49] LABS: RBC Morphology Unremarkable
[2023-07-23] MEDS: QUEtiapine FUMARATE 25 MG TABLET PO PRN ×2 (11:18→18:10)
--- NOTE | 2023-07-23 18:54 | Billing Data ---
Date of Service July 23, 2023 Coding Level of Care Code 20988 SUB INP/OBS CARE
[2023-07-23] MEDS: QUEtiapine FUMARATE 25 MG TABLET PO SCH ×2 (20:55→21:01)
[2023-07-23] MEDS: VENLAFAXINE HCL XR 150 MG CAPXR PO SCH (20:55)
[2023-07-23] MEDS: VENLAFAXINE HCL XR 75 MG CAPXR PO SCH (20:56)
--- NOTE | 2023-07-24 07:35 | Hospitalist Progress Note ---
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 Stable for last 4 days. -Psych consulted - 07/07: Increased Seroquel qhs to 50mg. Tolerating well -Consult placed to neurology for reevaluation -Ordered PRISCILA 12 panel, to include Sjogren's antibodies, scleroderma antibodies. Also checking ANCA, angiotensin-converting enzyme, rheumatoid fact or, CRP, ESR. -CRP slightly elevated, all other labs negative. -continue supportive care -Neurology reevaluated on 07/19 stating not much they can add from a neurological standpoint in terms of her hallucinations. Recommend continue following with psych and ID. -Patient having hallucinations on and off since admission. Having a more frequent and required as needed Seroquel more frequently. -We will order MRI brain with and without contrast. We will also reach out to psych for any input. -Some neck pain on 07/23, believe this to be musculoskeletal in nature rather than any other concerning etiologies. We will continue monitor with serial exams. 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 -fungal blood cx neg -Began liposomal amphotericin (3mg/kg daily) and flucytosine (25 mg/kg QID) 06/25 for concern of recurrence; d/c on 07/05 due to marrow suppression/worsening kidney function -Continuing fluconazole 400 per ID recommendations. -Discussed with patient's ID physician, Dr. Awali, and the plan is to continue fluconazole for prophylaxis. -Given hallucinations listed above. Will order MRI brain with and without and reach out to psych for any input -We will also add on CMP and ammonia levels to morning labs. Anemia -1u PRBC on 07/04 -Suspect that drop in hemoglobin is secondary to bone marrow suppression from amphotericin/flucytosine -Had slight dip in hemoglobin on 07/16 which resolved without any intervention. -CBC every other day. Abdominal Pain -Sec to constipation/overflow diarrhea. Miralax tid decreased to daily. -pain improved. Drug-induced ALBINA -resolved with d/cing nephrotoxic antifungals Insulin dependent diabetes mellitus -During previous hospitalization, basal insulin was decreased d/t hypoglycemic episodes -Basal insulin 10 units bid -Continue SSI: goal 100-140, CF 35, CR 12 Anxiety -Continue home venlafaxine 150mg daily Paroxysmal afib -Continue metoprolol, Eliquis Cirrhosis -Stable; no acute decompensation Gastritis -Continue pantoprazole and sucralfate Dispo:Family working with case management; pending placement at this time, medically stable for discharge. Diet: carb consistent DVT ppx: eliquis Admission and Anticipated Discharge Date Admission Date: June 24, 2023 Supervising Physician Co-Signing Physician Notes I personally examined the patient and verified all fish points of history and exam, discussed case, and agree with decision making with Dr Lynn Before I walked into the room, patient was heard talking to someone and patient was sounding very hostile. Whenever I enter the room, she is in the room alone. She notes being accused of misdeeds such as sleeping with all the male staff. Vitals noted, in general she Is alert, appears upset somewhat angry no physical distress. HEENT normocephalic atraumatic mucous membranes moist. Breathing unlabored no accessory muscle use good effort. Skin shows no rashes no pallor or icterus. Neuro without focal deficits. Hallucinationsseems to be at least indirectly "fall out" from her cryptococcal meningitisID does not see any evidence of active infection. Neurology and psychiatry input appreciated. repeat MRI done today is stable from her one previouslyand overall the plan for now is safe disposition, and outpatient follow-up with her [facility] infectious disease doc, and possibly a third opinion depending on further input from him. As it relates to worsening hallucinations, I have asked psychiatry to help as best they can since she has now had several bad days in a row and is persistently fairly dysphoric Unfortunately home is a difficult issue because she is not safe at home alone, but does not appear to qualify for SNF or rehab, son is working on personal care arrangements. outpt anticipate close PCP follow up, ongoing ID follow up w Dr Huggins, possible intermittent assistance with psych. otherwise as above Subjective Patient seen bedside this morning. Initially before entering the room patient was talking to someone that was not on her phone and no one else was in the room. Patient says that she feels all right this morning. She has no issues or concerns. States that her neck pain is still present though it is better than yesterday Review of Systems Review of Systems: All systems reviewed & are unremarkable except as noted in Subjective Physical Exam Constitutional: well developed and well nourished; no acute distress Eyes: + conjunctival abnormality and + anicteric sclerae ENMT: Ears: no external ear abnormality Nose: no external nose abnormality Respiratory: normal respiratory effort, lungs clear to auscultation Cardiovascular: Rate/Rhythm: regular rate and regular rhythm Gastrointestinal (Abdomen): normal bowel sounds, soft, nontender, no hepatosplenomegaly Skin: no rashes, warm and dry Neurologic: patellar DTR's 2+ bilat, sensation intact Results & Data Results & Data Vital Signs (Past 12 Hours) Vital Signs Temp Pulse Resp BP BP Pulse Ox O2 Del Method 07/24/23 07:30 36.6 C 72 16 102/63 96 Room Air 07/23/23 20:51 36.9 C 77 18 116/69 97 Room Air (9) Hypertension Hypertension type: essential hypertension Qualified Code(s): I10 - Essential (primary) hypertension
[2023-07-24] MEDS: LANTUS PER UNIT CHARGE SQ SCH ×2 (08:06→19:54)
[2023-07-24] MEDS ORDERED: GADOBUTROL 30ML VIAL IV ONE (14:15)
--- NOTE | 2023-07-24 15:07 | Magnetic Resonance Report ---
MR brain wo/w con HISTORY: 63 years-old Female Cryptococcal meningitis acute headache with reported meningitis COMPARISON: 06/24/2023 TECHNIQUE: Multi plantar multisequence MRI of the brain was obtained both with and without the use of IV contrast. FINDINGS: Motion degraded exam. No restricted diffusion. Midline structures appear unremarkable. No pathologic blooming artifact. No acute intracranial hemorrhage, midline shift, abnormal extra-axial collection, hydrocephalus or intra-axial mass. Moderate patchy T2/FLAIR hyperintense foci throughout the white ma tter again noted. Cerebral venous sinuses and major arterial flow voids are patent. Prior bilateral lens repair. Mastoi d air cells and paranasal sinuses are clear. No abnormal intra-axial enhancement. Cerebellar leptomen ingeal enhancement again noted which appears generally stable compared to 06/24/2023. IMPRESSION: 1. Persistent leptomeningeal enhancement of the cerebellum which appears generally stable compared to the 06/24/2023 exam. Findings likely correlate with the reported history of meningitis. 2. No acute intracranial hemorrhage, midline shift or acute infarct. 3. Moderate T2/FLAIR hyperintense foci throughout the white matter suggests probable chronic microvas cular ischemic disease. ACT 112: Negative or not required by law. The above report was generated using voice recognition software. It may contain grammatical, syntax o r spelling errors. Electronically signed by: Markos Tineo M.D. 07/24/2023 3:05 PM
[2023-07-24] MEDS: QUEtiapine FUMARATE 25 MG TABLET PO SCH (19:30)
--- NOTE | 2023-07-24 20:15 | Billing Data ---
Date of Service July 24, 2023 Coding Level of Care Code 40945 SUB INP/OBS CARE MIN
--- NOTE | 2023-07-25 07:05 | Hospitalist Progress Note ---
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 Hallucinations with leptomeningeal enhancement on MRI -Pt presenting with increase in auditory/visual hallucinations -Consult placed to neurology for reevaluation -Ordered PRISCILA 12 panel, to include Sjogren's antibodies, scleroderma antibodies. Also checking ANCA, angiotensin-converting enzyme, rheumatoid factor, CRP, ESR. -CRP slightly elevated, all other labs negative. -continue supportive care -Neurology reevaluated on 07/19 stating not much they can add from a neurological standpoint in terms of her hallucinations. Recommend continue following with psych and ID. -Patient having hallucinations on and off since admission. Having a more frequent and required as needed Seroquel more frequently. -Some neck pain on 07/23, believe this to be musculoskeletal in nature rather than any other concerning etiologies. We will continue monitor with serial exams. -MRI on 07/24 showed no significant change from MRI from 1 month ago. Psych states to increase Seroquel from 50 mg to 100 mg a day. 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 -fungal blood cx neg -Began liposomal amphotericin (3mg/kg daily) and flucytosine (25 mg/kg QID) 06/25 for concern of recurrence; d/c on 07/05 due to marrow suppression/worsening kidney function -Continuing fluconazole 400 per ID recommendations. -Discussed with patient's ID physician, Dr. Huggins, and the plan is to continue fluconazole for prophylaxis. -Given hallucinations listed above. Will order MRI brain without any significant changes on 07/25 from previous MRI. -Psych saw patient on 07/25 and will increase Seroquel to 100 mg at night. Anemia -1u PRBC on 07/04 -Relatively stable hemoglobin during admission. -CBC every other day. Abdominal Pain -Resolved with MiraLAX. Drug-induced ALBINA -resolved with d/cing nephrotoxic antifungals Insulin dependent diabetes mellitus -During previous hospitalization, basal insulin was decreased d/t hypoglycemic episodes -Basal insulin 10 units bid -Continue SSI: goal 100-140, CF 35, CR 12 Anxiety -Continue home venlafaxine 150mg daily Paroxysmal afib -Continue metoprolol, Eliquis Cirrhosis -Stable; no acute decompensation Gastritis -Continue pantoprazole and sucralfate Dispo:Family working with case management; pending placement at this time, medically stable for discharge. Diet: carb consistent DVT ppx: eliquis Admission and Anticipated Discharge Date Admission Date: June 24, 2023 Supervising Physician Co-Signing Physician Notes Attending attestation Pt seen and examined in concert with Dr. Lynn. In agreement with the documented findings as noted in the resident documentation with any exceptions or additions as noted here. Resting in bed, denies active hallucinations at present. On examination, S1/S2 nl RRR no MCG. CTAB. Abd NT/ND BS+ve Hallucinations in the setting of cirrhosis, h/o cryptococcal meningitis - ID, psychiatry, neurology consult - continue fluconazole, increase Seroquel to 100mg and monitor for progressive sx. Insulin dependent DMI - continue basal/bolus regimen and monitor Else see resident documentation as noted. Subjective Patient seen bedside this morning. States that she feels okay this morning. e has no issues or concerns at this time. Review of Systems Review of Systems: All systems reviewed & are unremarkable except as noted in Subjective Physical Exam Constitutional: well developed and well nourished; no acute distress Eyes: + conjunctival abnormality and + anicteric sclerae ENMT: Ears: no external ear abnormality Nose: no external nose abnormality Respiratory: normal respiratory effort, lungs clear to auscultation Cardiovascular: Rate/Rhythm: regular rate and regular rhythm Gastrointestinal (Abdomen): normal bowel sounds, soft, nontender, no hepatosplenomegaly Skin: no rashes, warm and dry Neurologic: patellar DTR's 2+ bilat, sensation intact Results & Data Results & Data Vital Signs (Past 12 Hours) Vital Signs Temp Pulse Resp BP Pulse Ox O2 Del Method 07/24/23 19:43 36.9 C 94 H 16 113/74 99 Room Air Resident Activity Tracking Resident Involvement: Resident Care Provided Care Provided: Adult Hospital Medicine (9) Hypertension Hypertension type: essential hypertension Qualified Code(s): I10 - Essential (primary) hypertension
[2023-07-25 07:48] LABS: Hematocrit (blood only) 22.6 % (37.0-47.0); Hemoglobin 7.4 g/dl (12.0-16.0); Mean Corpuscular Hemoglobin 28.9 pg (25.0-34.0); Mean Corpuscular Hgb Conc 32.7 g/dL (32.0-36.0); Mean Corpuscular Volume 88.3 fL (80.0-100.0); Mean Platelet Volume 11.3 fL (9.4-12.4); Platelet Count 123 K/uL (130-400); RDW Coefficient of Variation 17.5 % (11.5-14.5); RDW Standard Deviation 56.8 fL (36.4-46.3); Red Blood Count 2.56 M/uL (4.20-5.40); White Blood Count 6.53 K/ul (4.8-10.8)
[2023-07-25 08:12] LABS: Albumin Globulin Ratio 1.2 (0.9-2); Albumin Level 3.5 gm/dl (3.4-5.0); BUN Creatinine Ratio 34.3 (10-20); Bilirubin,Total 0.5 mg/dl (0.2-1.0); Calcium 9.1 mg/dl (8.6-10.3); Creatinine Clr Calc Pharmacy 48.1 ml/min; Est GFR (African American) 67.3 ml/min; Est GFR (Non-African American) 58.1 ml/min; Magnesium 1.7 mg/dl (1.7-2.4); Potassium 3.6 mmol/L (3.5-5.1); Total Protein 6.5 gm/dl (6.0-8.3)
[2023-07-25] MEDS: LANTUS PER UNIT CHARGE SQ SCH ×2 (08:49→21:16)
[2023-07-25] MEDS: FLUCONAZOLE 100 MG TAB PO SCH (10:59)
[2023-07-25] MEDS: METOPROLOL SUCC 25MG EXT REL TAB PO SCH ×2 (11:00→21:17)
[2023-07-25] MEDS: CHOLECALCIFEROL 1,000 UNITS 25 MCG TAB PO SCH (11:00)
[2023-07-25] MEDS: PANTOprazole 40 MG TAB PO SCH ×2 (11:01→21:17)
[2023-07-25] MEDS: MAGNESIUM CHLORIDE W/CALCIUM 64MG DELAYED REL TAB PO SCH (11:01)
[2023-07-25] MEDS: MULTIVITAMIN TAB PO SCH (11:01)
[2023-07-25] MEDS: APIXABAN 5 MG TABLET PO SCH ×2 (11:01→21:18)
[2023-07-25] MEDS: SACCHAROMYCES BOULARDII 250 MG CAP PO SCH (11:02)
[2023-07-25] MEDS: POTASSIUM CHLORIDE CRTAB 20 MEQ TABCR PO SCH (11:02)
[2023-07-25] MEDS: MECLIZINE 12.5 MG TAB PO SCH (11:02)
[2023-07-25] MEDS: FLUTICASONE PROPIONATE NA SPR 16 GM BTL SCH (11:02)
[2023-07-25] MEDS: SUCRALFATE 1 GM/10 ML UDC PO SCH ×3 (11:03→21:16)
[2023-07-25] MEDS: ACETAMINOPHEN 325 MG TAB PO PRN ×2 (12:21→21:16)
--- NOTE | 2023-07-25 12:49 | Psychiatric Progress Note ---
Date of Service July 25, 2023 Impression / Recommendations Impression 63 yo woman with a history of hallucinations, prior cryptococcal meningitis who has traditionally responded well to hospital routines/care. Over recent months has developed significantly more cognitive difficulties related to independent living skills associated with her neurologic condition or other cognitive process. Lewy body dementia can sometimes present with vivid hallucinations early on out of proportion to level of dementia versus fixed delusional disorder vs sequelae from meningitis. 07/25/2023: More depressed from prolonged hospitalization and wait for personal mcc/assisted living options. Less evidence for disorganization or acute delusions today but does reference some paranoia about people trying to take her home and sometimes having visual hallucinations that she cannot reality-test. She is agreeable to increasing the dose of her seroquel to 100mg HS to help with sleep, reviewed risks/benefits including but not limited to sedation. Overall, I spent a total of 45 minutes with this case including review of chart records, review of labwork, review of imaging, direct evaluation of the patient at bedside, counseling the patient, discussion of the patient with the hospitalist provider, discussion with the psychiatric liason during clinical rounds and documentation in the electronic health record. 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, [place] of fungal meningitis (crypto) with complicated course. Known to me from stay on [facility] in March. Readmit medically with ongoing evidence of [employer] inflammation and decline in self care. Consult was for "hallucinations." Chief Complaint "I'm better today because I'm spending time alone". Subjective Subjective Patient was seen & assessed and interval progress reviewed. Yesterday had increased delusions, paranoia and disorganized behaviors. Repeat brain MRI done yesterday. Today she reports improved mood due to having time alone. States no concerns about Calos today (see psych liason note from yesterday below). Does state frustration that "people" have been trying to get her house before she came to the hospital and that this has been continuing. Also states frustration that sometimes she thinks there are people in her room and when she asks others they tell her "no" but then sometimes someone says "yes" so she doesn't know who to believe about it. Denies seeing anyone in her room currently. States she hasn't been sleeping well. Looking forward to meeting with someone about a possible personal mcc today. Additional recent history per psych liason note from 07/24/2023: "Met with patient for consult service. Patient in room with visitors, sister and [id number]. Patient remains with auditory hallucinations and delusions but has worsened over the past couple days. Patient able to answer questions a ppropriately but often referring to "Calos and his family" whom she hears and see's but are not real. She reports hearing 2 voices mostly, "Calos and his mother". Patient reports several delusional thoughts including, "Calos's family" giving her medications when nobody is around and speaking about her "case" in the hallway, "which is a HIPAA violation". She also believes her son was given drugs by "Calos's family" and now has to go to rehab. Patient shows staff a (screen shot) picture of "Calos" that is on her phone from a random facebook account, family does not believe patient has any kind of real relationship with "Calos". Patient unable to reality test, delusions were challenged several times but unsuccessful. She reports, "I plan to just move away. Then they won't find me and I can get away from them". Patient's sister reports, patient believed "Calos" to be her significant other and she was happy, for example: patient was video calling her brother with sister present, patient was showing the picture of "Calos" to her brother as if Calos was able to see the video and stated, "look Calos, we can go there sometime". They have since "broke up" and hallucinations have been quite distressing and frustrating for patient. She also reports the voices tell her she is "fat and a hooker"." Physical Exam Psychiatric Orientation: alert and oriented x 3 Apperance: appropriately dressed and appropriately groomed Eye Contact: good eye contact Motor Behavior: no abnormal motor movements Speech: normal rate/rhythm/volume of speech Affect: + constricted affect Mood: + depressed mood and + anxious mood Thought Process: + circumstantial thought process Thought Content: + paranoid (intermittent) Suicidal Thoughts: denies suicidal thoughts Homicidal Thoughts: denies homicidal thoughts Hallucinations: no auditory hallucinations and no visual hallucinations Cognition: attention grossly intact and language grossly intact Estimated Intelligence: consistent with education level Insight: + limited insight Judgment: + limited judgement Vital Signs (Past 24 Hours) Last Vital Signs Temp 36.9 C 07/25/23 07:14 Pulse 97 H 07/25/23 07:14 Resp 18 07/25/23 07:14 BP 115/71 07/25/23 07:14 Pulse Ox 98 07/25/23 07:14 O2 Del Method Room Air 07/25/23 07:14 O2 Flow Rate 0 07/04/23 18:52 Results & Data ([facility]) Laboratory Results Laboratory Results - last 24 hr 07/24/23 07/24/23 07/25/23 16:48 19:51 07:26 WBC RBC Hgb Hct MCV MCH MCHC RDW Std Deviation RDW Coeff of Jun Plt Count MPV Sodium 139 Potassium 3.6 Chloride 108 H Carbon Dioxide 24 Anion Gap 7 BUN 35 H Creatinine 1.02 Est Cr Clr Drug Dosing 48.1 Est GFR ( Amer) 67.3 Est GFR (Non-Af Amer) 58.1 BUN/Creatinine Ratio 34.3 H Glucose 132 H POC Glucose 184 H 196 H Calcium 9.1 Magnesium 1.7 Total Bilirubin 0.5 AST 37 ALT 19 Alkaline Phosphatase 187 H Ammonia Total Protein 6.5 Albumin 3.5 Globulin 3.0 Albumin/Globulin Ratio 1.2 07/25/23 07/25/23 07/25/23 07:26 07:31 07:39 WBC 6.53 RBC 2.56 L Hgb 7.4 L Hct 22.6 L MCV 88.3 MCH 28.9 MCHC 32.7 RDW Std Deviation 56.8 H RDW Coeff of Jun 17.5 H Plt Count 123 L MPV 11.3 Sodium Potassium Chloride Carbon Dioxide Anion Gap BUN Creatinine Est Cr Clr Drug Dosing Est GFR ( Amer) Est GFR (Non-Af Amer) BUN/Creatinine Ratio Glucose POC Glucose 148 H Calcium Magnesium Total Bilirubin AST ALT Alkaline Phosphatase Ammonia 53.0 Total Protein Albumin Globulin Albumin/Globulin Ratio 07/25/23 11:45 WBC RBC Hgb Hct MCV MCH MCHC RDW Std Deviation RDW Coeff of Jun Plt Count MPV Sodium Potassium Chloride Carbon Dioxide Anion Gap BUN Creatinine Est Cr Clr Drug Dosing Est GFR ( Amer) Est GFR (Non-Af Amer) BUN/Creatinine Ratio Glucose POC Glucose 142 H Calcium Magnesium Total Bilirubin AST ALT Alkaline Phosphatase Ammonia Total Protein Albumin Globulin Albumin/Globulin Ratio Current Inpatient Medications Current Inpatient Medications: Current Inpatient Medications Acetaminophen (Acetaminophen 325 Mg Tab) 650 mg PO Q8H PRN PRN Reason: Pain/headache Stop: 08/02/23 14:15 Last Admin: 07/25/23 12:21 Dose: 650 mg Apixaban (Apixaban 5 Mg Tablet) 5 mg PO BID [facility] Stop: 08/24/23 09:44 Last Admin: 07/25/23 11:01 Dose: 5 mg Fluconazole (Fluconazole 100 Mg Tab) 400 mg PO QAM [facility] Stop: 08/04/23 09:44 Last Admin: 07/25/23 10:59 Dose: 400 mg Fluticasone Propionate (Fluticasone Propionate Na Spr 16 Gm Btl) 1 sprays NA DAILY [facility] Stop: 08/24/23 09:44 Last Admin: 07/25/23 11:02 Dose: 1 sprays Insulin Glargine (Lantus Per Unit Charge) 10 units SQ BID [facility] Stop: 07/29/23 08:59 Last Admin: 07/25/23 08:49 Dose: 10 units Lidocaine (Lidocaine 5% 1 Patch) 1 patch TD QAM PRN PRN Reason: Pain Stop: 07/27/23 09:44 Magnesium Chloride (Magnesium Chloride W/Calcium 64mg Delayed Rel Tab) 64 mg PO QAM [facility] Stop: 08/24/23 09:44 Last Admin: 07/25/23 11:01 Dose: 64 mg Meclizine HCl (Meclizine 12.5 Mg Tab) 12.5 mg PO QAM [facility] Stop: 08/24/23 09:44 Last Admin: 07/25/23 11:02 Dose: 12.5 mg Menthol (Cough Drop (Sugar Free) Miranda 24 Miranda/1 Box) 1 miranda BUCCAL DAILY PRN PRN Reason: Sore Throat Stop: 08/06/23 19:30 Last Admin: 07/07/23 20:29 Dose: 1 miranda Metoprolol Succinate (Metoprolol Succ 25mg Ext Rel Tab) 25 mg PO BID [facility] Stop: 08/24/23 09:44 Last Admin: 07/25/23 11:00 Dose: 25 mg Miscellaneous (Remove Lidoderm Patch) 1 each N/A DAILY@2100 [facility] Stop: 07/27/23 20:59 Last Admin: 07/24/23 19:33 Dose: 1 each Multivitamins (Multivitamin Tab) 1 tab PO QAM [facility] Stop: 08/24/23 09:44 Last Admin: 07/25/23 11:01 Dose: 1 tab Pantoprazole Sodium (Pantoprazole 40 Mg Tab) 40 mg PO BID [facility] Stop: 08/24/23 09:44 Last Admin: 07/25/23 11:01 Dose: 40 mg Polyethylene Glycol (Polyethylene (Miralax) 17 Gm Pack) 17 gm PO DAILY PRN PRN Reason: constipation Stop: 08/12/23 08:59 Potassium Chloride (Potassium Chloride Crtab 20 Meq Tabcr) 20 meq PO QAM [facility] Stop: 08/24/23 09:44 Last Admin: 07/25/23 11:02 Dose: 20 meq Quetiapine Fumarate (Quetiapine Fumarate 25 Mg Tablet) 12.5 mg PO Q6H PRN PRN Reason: Anxiety Stop: 08/02/23 12:15 Last Admin: 07/23/23 18:10 Dose: 12.5 mg Quetiapine Fumarate (Quetiapine Fumarate 25 Mg Tablet) 50 mg PO HS [facility] Stop: 08/06/23 20:59 Last Admin: 07/24/23 19:30 Dose: 50 mg Saccharomyces Boulardii (Saccharomyces Boulardii 250 Mg Cap) 250 mg PO DAILY [facility] Stop: 08/24/23 09:44 Last Admin: 07/25/23 11:02 Dose: 250 mg Sucralfate (Sucralfate 1 Gm/10 Ml Udc) 1 gm PO ACHS [facility] Stop: 08/24/23 11:29 Last Admin: 07/25/23 11:03 Dose: 1 gm Venlafaxine HCl (Venlafaxine Hcl Xr 150 Mg Capxr) 150 mg PO QPM [facility] Stop: 08/24/23 20:59 Venlafaxine HCl (Venlafaxine Hcl Xr 75 Mg Capxr) 75 mg PO QPM [facility] Stop: 08/24/23 20:59 Vitamin D (Cholecalciferol 1,000 Units 25 Mcg Tab) 2,000 units PO [facility] Stop: 08/24/23 09:44 Last Admin: 07/25/23 11:00 Dose: 2,000 units
[2023-07-25] MEDS: QUEtiapine FUMARATE 100 MG TABLET PO SCH (21:17)
[2023-07-25] MEDS: VENLAFAXINE HCL XR 150 MG CAPXR PO SCH (21:18)
[2023-07-25] MEDS: VENLAFAXINE HCL XR 75 MG CAPXR PO SCH (21:18)
--- NOTE | 2023-07-26 06:52 | Hospitalist Progress Note ---
Date of Service July 26, 2023 Assessment & Plan (1) Hallucinations: (2) Uncontrolled type 2 diabetes mellitus with hyperglycemia, with long-term current use of insulin: (3) Anxiety: (4) Paroxysmal A-fib: (5) Cirrhosis of liver: (6) Hypomagnesemia: (7) Hypokalemia: (8) Gastritis: (9) Hypertension: Plan Lynne Ye is 63 year-old female with PMH of cryptococcal meningitis w/ associated auditory/visual hallucinations, cirrhosis, DM2, afib, hypomagnesemia, hypokalemia, HLD, peripheral edema, anxiety, depression, gastritis, and HTN presenting with an increase in her hallucinations. Hallucinations with leptomeningeal enhancement on MRI -Pt presenting with increase in auditory/visual hallucinations -Consult placed to neurology for reevaluation -Ordered PRISCILA 12 panel, to include Sjogren's antibodies, scleroderma antibodies. Also checking ANCA, angiotensin-converting enzyme, rheumatoid factor, CRP, ESR. -CRP slightly elevated, all other labs negative. -continue supportive care -Neurology reevaluated on 07/19 stating not much they can add from a neurological standpoint in terms of her hallucinations. Recommend continue following with psych and ID. -Patient having hallucinations on and off since admission. Having a more frequent and required as needed Seroquel more frequently. -Some neck pain on 07/23, believe this to be musculoskeletal in nature rather than any other concerning etiologies. We will continue monitor with serial exams. -MRI on 07/24 showed no significant change from MRI from 1 month ago. -Psych states to increase Seroquel from 50 mg to 100 mg a day. Currently tolerating well. We will continue to monitor while admitted. 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 -fungal blood cx neg -Began liposomal amphotericin (3mg/kg daily) and flucytosine (25 mg/kg QID) 06/25 for concern of recurrence; d/c on 07/05 due to marrow suppression/worsening kidney function -Continuing fluconazole 400 per ID recommendations. -Discussed with patient's ID physician, Dr. Huggins, and the plan is to continue fluconazole for prophylaxis. -Given hallucinations listed above. Will order MRI brain without any significant changes on 07/25 from previous MRI. -Psych saw patient on 07/25 and will increase Seroquel to 100 mg at night. Anemia -1u PRBC on 07/04 -Relatively stable hemoglobin during admission. -CBC every other day. Abdominal Pain -Resolved with MiraLAX. Drug-induced ALBINA -resolved with d/cing nephrotoxic antifungals Insulin dependent diabetes mellitus -During previous hospitalization, basal insulin was decreased d/t hypoglycemic episodes -Basal insulin 10 units bid -Continue SSI: goal 100-140, CF 35, CR 12 Anxiety -Continue home venlafaxine 150mg daily Paroxysmal afib -Continue metoprolol, Eliquis Cirrhosis -Stable; no acute decompensation Gastritis -Continue pantoprazole and sucralfate Dispo: Met with mohit, paperwork being done with case management. Diet: carb consistent DVT ppx: eliquis Admission and Anticipated Discharge Date Admission Date: June 24, 2023 Supervising Physician Co-Signing Physician Notes Attending attestation Pt seen and examined in concert with Dr. Lynn. In agreement with the documented findings as noted in the resident documentation with any exceptions or additions as noted here. Resting in bed, denies active hallucinations at present. Feels that she slept overall better last night with the change in Seroquel. On examination, S1/S2 nl RRR no MCG. CTAB. Abd NT/ND BS+ve Hallucinations in the setting of cirrhosis, h/o cryptococcal meningitis - ID, psychiatry, neurology consult - continue fluconazole, Seroquel and monitor for progressive sx. Insulin dependent DMI - continue basal/bolus regimen and monitor Else see resident documentation as noted. Subjective Patient seen bedside this morning. She has no issues or concerns at this time. She states that she met with mohit yesterday and thought the meeting went well. Review of Systems Review of Systems: All systems reviewed & are unremarkable except as noted in Subjective Physical Exam Constitutional: well developed and well nourished; no acute distress Eyes: + conjunctival abnormality and + anicteric sclerae ENMT: Ears: no external ear abnormality Nose: no external nose abnormality Respiratory: normal respiratory effort, lungs clear to auscultation Cardiovascular: Rate/Rhythm: regular rate and regular rhythm Gastrointestinal (Abdomen): normal bowel sounds, soft, nontender, no hepatosplenomegaly Skin: no rashes, warm and dry Neurologic: patellar DTR's 2+ bilat, sensation intact Results & Data Results & Data Vital Signs (Past 12 Hours) Vital Signs Temp Pulse Resp BP Pulse Ox O2 Del Method 07/25/23 21:23 36 C L 74 19 123/75 98 Room Air Resident Activity Tracking Resident Involvement: Resident Care Provided Care Provided: Adult Hospital Medicine (9) Hypertension Hypertension type: essential hypertension Qualified Code(s): I10 - Essential (primary) hypertension
[2023-07-26] MEDS: POTASSIUM CHLORIDE CRTAB 20 MEQ TABCR PO SCH (08:59)
[2023-07-26] MEDS: LANTUS PER UNIT CHARGE SQ SCH ×2 (08:59→20:29)
[2023-07-26] MEDS: SACCHAROMYCES BOULARDII 250 MG CAP PO SCH (08:59)
[2023-07-26] MEDS: MAGNESIUM CHLORIDE W/CALCIUM 64MG DELAYED REL TAB PO SCH (09:00)
[2023-07-26] MEDS: APIXABAN 5 MG TABLET PO SCH ×2 (09:00→20:30)
[2023-07-26] MEDS: CHOLECALCIFEROL 1,000 UNITS 25 MCG TAB PO SCH (09:00)
[2023-07-26] MEDS: FLUTICASONE PROPIONATE NA SPR 16 GM BTL SCH (09:00)
[2023-07-26] MEDS: PANTOprazole 40 MG TAB PO SCH ×2 (09:01→20:30)
[2023-07-26] MEDS: METOPROLOL SUCC 25MG EXT REL TAB PO SCH ×2 (09:01→20:30)
[2023-07-26] MEDS: SUCRALFATE 1 GM/10 ML UDC PO SCH ×4 (09:01→20:30)
[2023-07-26] MEDS: MECLIZINE 12.5 MG TAB PO SCH (09:01)
[2023-07-26] MEDS: MULTIVITAMIN TAB PO SCH (09:01)
[2023-07-26] MEDS: FLUCONAZOLE 100 MG TAB PO SCH (09:02)
[2023-07-26] MEDS: ACETAMINOPHEN 325 MG TAB PO PRN (09:10)
[2023-07-26] MEDS: VENLAFAXINE HCL XR 150 MG CAPXR PO SCH (20:30)
[2023-07-26] MEDS: VENLAFAXINE HCL XR 75 MG CAPXR PO SCH (20:30)
[2023-07-26] MEDS: QUEtiapine FUMARATE 100 MG TABLET PO SCH (20:30)
[2023-07-27] MEDS: ACETAMINOPHEN 325 MG TAB PO PRN (04:08)
--- NOTE | 2023-07-27 07:12 | Hospitalist Progress Note ---
Date of Service July 27, 2023 Assessment & Plan (1) Hallucinations: (2) Uncontrolled type 2 diabetes mellitus with hyperglycemia, with long-term current use of insulin: (3) Anxiety: (4) Paroxysmal A-fib: (5) Cirrhosis of liver: (6) Hypomagnesemia: (7) Hypokalemia: (8) Gastritis: (9) Hypertension: Plan Lynne Ye is 63 year-old female with PMH of cryptococcal meningitis w/ associated auditory/visual hallucinations, cirrhosis, DM2, afib, hypomagnesemia, hypokalemia, HLD, peripheral edema, anxiety, depression, gastritis, and HTN presenting with an increase in her hallucinations. Hallucinations with leptomeningeal enhancement on MRI -Pt presenting with increase in auditory/visual hallucinations -Consult placed to neurology for reevaluation -PRISCILA 12 panel, to include Sjogren's antibodies, scleroderma antibodies, ANCA, angiotensin-converting enzyme, rheumatoid factor were all negative. -continue supportive care -Neurology reevaluated on 07/19 stating not much they can add from a neurological standpoint in terms of her hallucinations. Recommend continue following with psych and ID. -Patient having hallucinations on and off since admission. Having a more frequent and required as needed Seroquel more frequently. -Some neck pain on 07/23, believe this to be musculoskeletal in nature rather than any other concerning etiologies. We will continue monitor with serial exams. -MRI on 07/24 showed no significant change from MRI from 1 month ago. -Psych states to increase Seroquel from 50 mg to 100 mg a day. Tolerating well. 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 -fungal blood cx neg -Began liposomal amphotericin (3mg/kg daily) and flucytosine (25 mg/kg QID) 06/25 for concern of recurrence; d/c on 07/05 due to marrow suppression/worsenin g kidney function -Continuing fluconazole 400 per ID recommendations. -Discussed with patient's ID physician, Dr. Huggins, and the plan is to continue fluconazole for prophylaxis. -Given hallucinations listed above. Will order MRI brain without any significant changes on 07/25 from previous MRI. -Psych saw patient on 07/25 and will increase Seroquel to 100 mg at night. Anemia -1u PRBC on 07/04 -Relatively stable hemoglobin during admission. -CBC every other day. Abdominal Pain -Resolved with MiraLAX. Drug-induced ALBINA -resolved with d/cing nephrotoxic antifungals Insulin dependent diabetes mellitus -During previous hospitalization, basal insulin was decreased d/t hypoglycemic episodes -Basal insulin 10 units bid -Continue SSI: goal 100-140, CF 35, CR 12 Anxiety -Continue home venlafaxine 150mg daily Paroxysmal afib -Continue metoprolol, Eliquis Cirrhosis -Stable; no acute decompensation Gastritis -Continue pantoprazole and sucralfate Dispo: [facility] on 08/01/2023 Diet: carb consistent DVT ppx: eliquis Admission and Anticipated Discharge Date Admission Date: June 24, 2023 Supervising Physician Co-Signing Physician Notes Attending attestation Pt seen and examined in concert with Dr. Lynn. In agreement with the documented findings as noted in the resident documentation with any exceptions or additions as noted here. Resting in bed, denies active hallucinations at present but does express paranoia regarding people at the door talking about her. On examination, S1/S2 nl RRR no MCG. CTAB. Abd NT/ND BS+ve Hallucinations in the setting of cirrhosis, h/o cryptococcal meningitis - ID, ps ychiatry, neurology consult - continue fluconazole, Seroquel and monitor for progressive sx. Insulin dependent DMI - continue basal/bolus regimen and monitor Else see resident documentation as noted. Subjective Patient seen bedside this morning. Having some hallucinations and states that people are outside talking about her all the time. Denies any acute pain or problems other than the "people" talking about her. Review of Systems Review of Systems: All systems reviewed & are unremarkable except as noted in Subjective Physical Exam Constitutional: well developed and well nourished; no acute distress Eyes: + conjunctival abnormality and + anicteric sclerae ENMT: Ears: no external ear abnormality Nose: no external nose abnormality Respiratory: normal respiratory effort, lungs clear to auscultation Cardiovascular: Rate/Rhythm: regular rate and regular rhythm Gastrointestinal (Abdomen): normal bowel sounds, soft, nontender, no hepatosplenomegaly Skin: no rashes, warm and dry Neurologic: patellar DTR's 2+ bilat, sensation intact Results & Data Results & Data Vital Signs (Past 12 Hours) Vital Signs Temp Pulse Resp BP Pulse Ox O2 Del Method 07/26/23 20:23 37 C 82 16 111/67 99 Room Air (9) Hypertension Hypertension type: essential hypertension Qualified Code(s): I10 - Essential (primary) hypertension
[2023-07-27] MEDS: PANTOprazole 40 MG TAB PO SCH ×2 (08:28→22:06)
[2023-07-27] MEDS: METOPROLOL SUCC 25MG EXT REL TAB PO SCH ×2 (08:28→22:06)
[2023-07-27] MEDS: QUEtiapine FUMARATE 25 MG TABLET PO PRN ×2 (08:29→22:04)
[2023-07-27] MEDS: POTASSIUM CHLORIDE CRTAB 20 MEQ TABCR PO SCH (08:29)
[2023-07-27] MEDS: APIXABAN 5 MG TABLET PO SCH ×2 (08:29→22:05)
[2023-07-27] MEDS: SACCHAROMYCES BOULARDII 250 MG CAP PO SCH (08:30)
[2023-07-27] MEDS: MAGNESIUM CHLORIDE W/CALCIUM 64MG DELAYED REL TAB PO SCH (08:31)
[2023-07-27] MEDS: CHOLECALCIFEROL 1,000 UNITS 25 MCG TAB PO SCH (08:31)
[2023-07-27] MEDS: FLUCONAZOLE 100 MG TAB PO SCH (08:31)
[2023-07-27] MEDS: MULTIVITAMIN TAB PO SCH (08:31)
[2023-07-27] MEDS: FLUTICASONE PROPIONATE NA SPR 16 GM BTL SCH (08:32)
[2023-07-27 08:33] LABS: Hematocrit (blood only) 22.7 % (37.0-47.0); Hemoglobin 7.3 g/dl (12.0-16.0); Mean Corpuscular Hemoglobin 28.3 pg (25.0-34.0); Mean Corpuscular Hgb Conc 32.2 g/dL (32.0-36.0); Mean Platelet Volume 11.4 fL (9.4-12.4); Platelet Count 126 K/uL (130-400); RDW Coefficient of Variation 17.4 % (11.5-14.5); RDW Standard Deviation 56.2 fL (36.4-46.3); Red Blood Count 2.58 M/uL (4.20-5.40); White Blood Count 6.05 K/ul (4.8-10.8)
[2023-07-27] MEDS: SUCRALFATE 1 GM/10 ML UDC PO SCH ×4 (08:33→22:03)
[2023-07-27] MEDS: MECLIZINE 12.5 MG TAB PO SCH (08:34)
[2023-07-27 08:36] LABS: BUN Creatinine Ratio 33.3 (10-20); Calcium 9.1 mg/dl (8.6-10.3); Creatinine Clr Calc Pharmacy 45.4 ml/min; Est GFR (African American) 62.8 ml/min; Est GFR (Non-African American) 54.2 ml/min; Potassium 3.8 mmol/L (3.5-5.1)
[2023-07-27] MEDS: LANTUS PER UNIT CHARGE SQ SCH ×2 (09:33→22:09)
[2023-07-27] MEDS: VENLAFAXINE HCL XR 150 MG CAPXR PO SCH (22:04)
[2023-07-27] MEDS: VENLAFAXINE HCL XR 75 MG CAPXR PO SCH (22:06)
[2023-07-27] MEDS: QUEtiapine FUMARATE 100 MG TABLET PO SCH (22:07)
--- NOTE | 2023-07-28 07:44 | Hospitalist Progress Note ---
Date of Service July 28, 2023 Assessment & Plan (1) Hallucinations: (2) Uncontrolled type 2 diabetes mellitus with hyperglycemia, with long-term current use of insulin: (3) Anxiety: (4) Paroxysmal A-fib: (5) Cirrhosis of liver: (6) Hypomagnesemia: (7) Hypokalemia: (8) Gastritis: (9) Hypertension: Plan Lynne Ye is 63 year-old female with PMH of cryptococcal meningitis w/ associated auditory/visual hallucinations, cirrhosis, DM2, afib, hypomagnesemia, hypokalemia, HLD, peripheral edema, anxiety, depression, gastritis, and HTN presenting with an increase in her hallucinations. Hallucinations with leptomeningeal enhancement on MRI -Pt presenting with increase in auditory/visual hallucinations -Consult placed to neurology for reevaluation -PRISCILA 12 panel, to include Sjogren's antibodies, scleroderma antibodies, ANCA, angiotensin-converting enzyme, rheumatoid factor were all negative. -continue supportive care -Neurology reevaluated on 07/19 stating not much they can add from a neurological standpoint in terms of her hallucinations. Recommend continue following with psych and ID. -Patient having hallucinations on and off since admission. Having a more frequent and required as needed Seroquel more frequently. -Some neck pain on 07/23, believe this to be musculoskeletal in nature rather than any other concerning etiologies. We will continue monitor with serial exams. -MRI on 07/24 showed no significant change from MRI from 1 month ago. -Psych states to increase Seroquel from 50 mg to 100 mg a day. Still having hallucinations will increase to Seroquel 150 mg at night starting on 07/28. 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 -fungal blood cx neg -Began liposomal amphotericin (3mg/kg daily) and flucytosine (25 mg/kg QID) 06/25 for concern of recurrence; d/c on 07/05 due to marrow suppression/worsening kidney function -Continuing fluconazole 400 per ID recommendations. -Discussed with patient's ID physician, Dr. Huggins, and the plan is to continue fluconazole for prophylaxis. -Given hallucinations listed above. Will order MRI brain without any significant changes on 07/25 from previous MRI. -Seroquel 150 mg at night as stated above. Anemia -1u PRBC on 07/04 -Relatively stable hemoglobin during admission. Abdominal Pain -Resolved with MiraLAX. Drug-induced ALBINA -resolved with d/cing nephrotoxic antifungals Insulin dependent diabetes mellitus -During previous hospitalization, basal insulin was decreased d/t hypoglycemic episodes -Basal insulin 10 units bid -Continue SSI: goal 100-140, CF 35, CR 12 Anxiety -Continue home venlafaxine 150mg daily Paroxysmal afib -Continue metoprolol, Eliquis Cirrhosis -Stable; no acute decompensation Gastritis -Continue pantoprazole and sucralfate Dispo: [facility] on 08/01/2023 Diet: carb consistent DVT ppx: eliquis Admission and Anticipated Discharge Date Admission Date: June 24, 2023 Supervising Physician Co-Signing Physician Notes Attending attestation Pt seen and examined in concert with Dr. Lynn. In agreement with the documented findings as noted in the resident documentation with any exceptions or additions as noted here. Resting in bed, complains of snipers on the roofline and concerns re: her dying in the war between [place] and [employer]. On examination, S1/S2 nl RRR no MCG. CTAB. Abd NT/ND BS+ve Hallucinations in the setting of cirrhosis, h/o cryptococcal meningitis - ID, psychiatry, neurology consult - increase Seroquel to 150mg qHS. Continue fluconazole and monitor for progressive sx. Insulin dependent DMI - continue basal/bolus regimen and monitor Else see resident documentation as noted. Pending placement on Tuesday per CM Subjective Patient was seen bedside this morning. She continues to have hallucinations. States that she is in pain. She is alert and oriented x3 Review of Systems Review of Systems: All systems reviewed & are unremarkable except as noted in Subjective Physical Exam Constitutional: well developed and well nourished; no acute distress Eyes: + conjunctival abnormality and + anicter ic sclerae ENMT: Ears: no external ear abnormality Nose: no external nose abnormality Respiratory: normal respiratory effort, lungs clear to auscultation Cardiovascular: Rate/Rhythm: regular rate and regular rhythm Gastrointestinal (Abdomen): normal bowel sounds, soft, nontender, no hepatosplenomegaly Skin: no rashes, warm and dry Neurologic: patellar DTR's 2+ bilat, sensation intact Results & Data Results & Data Vital Signs (Past 12 Hours) Vital Signs Temp Pulse Resp BP Pulse Ox O2 Del Method 07/28/23 07:40 36.8 C 65 16 108/67 97 Room Air 07/27/23 21:12 36.9 C 80 16 129/75 99 Room Air Resident Activity Tracking Resident Involvement: Resident Care Provided Care Provided: Adult Hospital Medicine (9) Hypertension Hypertension type: essential hypertension Qualified Code(s): I10 - Essential (primary) hypertension
[2023-07-28] MEDS: MULTIVITAMIN TAB PO SCH (09:11)
[2023-07-28] MEDS: POTASSIUM CHLORIDE CRTAB 20 MEQ TABCR PO SCH (09:12)
[2023-07-28] MEDS: SACCHAROMYCES BOULARDII 250 MG CAP PO SCH (09:12)
[2023-07-28] MEDS: CHOLECALCIFEROL 1,000 UNITS 25 MCG TAB PO SCH (09:12)
[2023-07-28] MEDS: MECLIZINE 12.5 MG TAB PO SCH (09:12)
[2023-07-28] MEDS: MAGNESIUM CHLORIDE W/CALCIUM 64MG DELAYED REL TAB PO SCH (09:13)
[2023-07-28] MEDS: APIXABAN 5 MG TABLET PO SCH ×2 (09:13→21:13)
[2023-07-28] MEDS: QUEtiapine FUMARATE 25 MG TABLET PO PRN (09:13)
[2023-07-28] MEDS: METOPROLOL SUCC 25MG EXT REL TAB PO SCH ×2 (09:13→21:13)
[2023-07-28] MEDS: FLUCONAZOLE 100 MG TAB PO SCH (09:15)
[2023-07-28] MEDS: FLUTICASONE PROPIONATE NA SPR 16 GM BTL SCH (09:16)
[2023-07-28] MEDS: SUCRALFATE 1 GM/10 ML UDC PO SCH ×4 (09:16→21:11)
[2023-07-28] MEDS: PANTOprazole 40 MG TAB PO SCH ×2 (09:17→21:11)
[2023-07-28] MEDS: LANTUS PER UNIT CHARGE SQ SCH ×2 (09:25→21:23)
[2023-07-28] MEDS ORDERED: QUEtiapine FUMARATE 25 MG TABLET PO SCH (21:00)
[2023-07-28] MEDS: VENLAFAXINE HCL XR 75 MG CAPXR PO SCH (21:12)
[2023-07-28] MEDS: VENLAFAXINE HCL XR 150 MG CAPXR PO SCH (21:13)
[2023-07-29] MEDS: QUEtiapine FUMARATE 25 MG TABLET PO PRN (04:22)
--- NOTE | 2023-07-29 07:20 | Hospitalist Progress Note ---
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 Hallucinations with leptomeningeal enhancement on MRI -Pt presenting with increase in auditory/visual hallucinations -Consult placed to neurology for reevaluation -PRISCILA 12 panel, to include Sjogren's antibodies, scleroderma antibodies, ANCA, angiotensin-converting enzyme, rheumatoid factor were all negative. -continue supportive care -Neurology reevaluated on 07/19 stating not much they can add from a neurological standpoint in terms of her hallucinations. Recommend continue following with psych and ID. -Patient having hallucinations on and off since admission. Having a more frequent and required as needed Seroquel more frequently. -Some neck pain on 07/23, believe this to be musculoskeletal in nature rather than any other concerning etiologies. We will continue monitor with serial exams. -MRI on 07/24 showed no significant change from MRI from 1 month ago. -Psych states to increase Seroquel from 50 mg to 100 mg a day. -On 07/28 patient was started on 150 mg of Seroquel due to hallucinations, this did not improve hallucinations and she became very agitated and had trouble sleeping. -EKG showed a prolonged QTc at 473. This is most likely due to a drug drug interaction between her fluconazole and Seroquel causing Seroquel to be in the bloodstream longer. -We will switch Seroquel to 75 mg at night and 25 mg every morning. (100 mg total daily) -As needed 12.5 mg Seroquel every 6 hours for agitation -We will repeat EKG in the a.m. on 07/30. 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 -fungal blood cx neg -Began liposomal amphotericin (3mg/kg daily) and flucytosine (25 mg/kg QID) 06/25 for concern of recurrence; d/c on 07/05 due to marrow suppression/worsening kidney function -Continuing fluconazole 400 per ID recommendations. -Discussed with patient's ID physician, Dr. Huggins, and the plan is to continue fluconazole for prophylaxis. -Given hallucinations listed above. Will order MRI brain without any significant changes on 07/25 from previous MRI. -Seroquel 100 mg a day as stated above. Anemia -1u PRBC on 07/04 -Relatively stable hemoglobin during admission. Abdominal Pain -Resolved with MiraLAX. Drug-induced ALBINA -resolved with d/cing nephrotoxic antifungals Insulin dependent diabetes mellitus -During previous hospitalization, basal insulin was decreased d/t hypoglycemic episodes -Basal insulin 10 units bid -Continue SSI: goal 100-140, CF 35, CR 12 Anxiety -Continue home venlafaxine 150mg daily Paroxysmal afib -Continue metoprolol, Eliquis Cirrhosis -Stable; no acute decompensation Gastritis -Continue pantoprazole and sucralfate Dispo: [facility] on 08/01/2023 Diet: carb consistent DVT ppx: eliquis Admission and Anticipated Discharge Date Admission Date: June 24, 2023 Supervising Physician Co-Signing Physician Notes ATTESTATION I also saw the patient and confirmed fish portions of the history and exam. I agree with the impression and plan in the resident documentation, and as summarized below. No new complaints this morning. Still complains of low-grade headache. EXAM 113/68, 72, 16, 36.7, heart percent on room air No acute distress. Afebrile. Heart regular rate and rhythm Respirations nonlabored IMPRESSION & PLAN I agree with the impression and plan as noted in the resident documentation above. Since she was a bit worse on the higher dose of Seroquel last night, will decrease to 25mg AM/75 PM Need to monitor QT interval with combination of Seroquel and rifampin. Check twelve-lead EKG; if any indication of prolongation, consider switching to Zyprexa (or recheck EKG on lower dose of Seroquel). Additional per resident documentation Subjective Patient was seen bedside this morning. She states that her only issue is some lower back pain. She continues to have hallucinations. Overnight she did not sleep well and was agitated throughout the night. Review of Systems Review of Systems: All systems reviewed & are unremarkable except as noted in Subjective Physical Exam Constitutional: well developed and well nourished; no acute distress Eyes: + conjunctival abnormality and + anicter ic sclerae ENMT: Ears: no external ear abnormality Nose: no external nose abnormality Respiratory: normal respiratory effort, lungs clear to auscultation Cardiovascular: Rate/Rhythm: regular rate and regular rhythm Gastrointestinal (Abdomen): normal bowel sounds, soft, nontender, no hepatosplenomegaly Skin: no rashes, warm and dry Neurologic: patellar DTR's 2+ bilat, sensation intact Results & Data Results & Data Vital Signs (Past 12 Hours) Vital Signs Temp Pulse Resp BP Pulse Ox O2 Del Method 07/29/23 07:11 36.5 C 83 16 116/74 98 Room Air 07/28/23 19:23 36.6 C 77 18 111/67 99 Room Air Resident Activity Tracking Resident Involvement: Resident Care Provided Care Provided: Adult Hospital Medicine (9) Hypertension Hypertension type: essential hypertension Qualified Code(s): I10 - Essential (primary) hypertension
[2023-07-29] MEDS: SUCRALFATE 1 GM/10 ML UDC PO SCH ×4 (08:20→20:27)
[2023-07-29] MEDS: FLUTICASONE PROPIONATE NA SPR 16 GM BTL SCH (08:21)
[2023-07-29] MEDS: FLUCONAZOLE 100 MG TAB PO SCH (08:21)
[2023-07-29] MEDS: METOPROLOL SUCC 25MG EXT REL TAB PO SCH ×2 (08:21→20:26)
[2023-07-29] MEDS: MULTIVITAMIN TAB PO SCH (08:23)
[2023-07-29] MEDS: APIXABAN 5 MG TABLET PO SCH ×2 (08:23→20:25)
[2023-07-29] MEDS: PANTOprazole 40 MG TAB PO SCH ×2 (08:23→20:26)
[2023-07-29] MEDS: CHOLECALCIFEROL 1,000 UNITS 25 MCG TAB PO SCH (08:24)
[2023-07-29] MEDS: POTASSIUM CHLORIDE CRTAB 20 MEQ TABCR PO SCH (08:24)
[2023-07-29] MEDS: MAGNESIUM CHLORIDE W/CALCIUM 64MG DELAYED REL TAB PO SCH (08:24)
[2023-07-29] MEDS: SACCHAROMYCES BOULARDII 250 MG CAP PO SCH (08:25)
[2023-07-29] MEDS: MECLIZINE 12.5 MG TAB PO SCH (08:25)
[2023-07-29] MEDS: LIDOCAINE 5% 1 PATCH TD SCH (12:07)
[2023-07-29] MEDS: QUEtiapine FUMARATE 25 MG TABLET PO SCH (20:24)
[2023-07-29] MEDS: VENLAFAXINE HCL XR 150 MG CAPXR PO SCH (20:27)
[2023-07-29] MEDS: VENLAFAXINE HCL XR 75 MG CAPXR PO SCH (20:28)
--- NOTE | 2023-07-29 20:35 | Electrocardiogram Report ---
Test Reason : Blood Pressure : / mmHG Vent. Rate : 069 BPM Atrial Rate : 069 BPM P-R Int : 144 ms QRS Dur : 114 ms QT Int : 442 ms P-R-T Axes : 062 -46 039 degrees QTc Int : 473 ms Normal sinus rhythm Left anterior fascicular block Nonspecific ST abnormality Abnormal ECG When compared with ECG of 06-JUL-2023 11:24, QT has lengthened Confirmed by Brendon Nina ([id number]) on 07/29/2023 8:35:16 PM Referred By: REFERRED SELF Confirmed By:Alvino Nina
[2023-07-29] MEDS ORDERED: QUEtiapine FUMARATE 100 MG TABLET PO SCH (21:00)
[2023-07-30] MEDS: QUEtiapine FUMARATE 25 MG TABLET PO PRN (06:17)
--- NOTE | 2023-07-30 07:09 | Hospitalist Progress Note ---
Date of Service July 30, 2023 Assessment & Plan (1) Hallucinations: (2) Uncontrolled type 2 diabetes mellitus with hyperglycemia, with long-term current use of insulin: (3) Anxiety: (4) Paroxysmal A-fib: (5) Cirrhosis of liver: (6) Hypomagnesemia: (7) Hypokalemia: (8) Gastritis: (9) Hypertension: Plan Lynne Ye is 63 year-old female with PMH of cryptococcal meningitis w/ associated auditory/visual hallucinations, cirrhosis, DM2, afib, hypomagnesemia, hypokalemia, HLD, peripheral edema, anxiety, depression, gastritis, and HTN presenting with an increase in her hallucinations. Hallucinations with leptomeningeal enhancement on MRI -Pt presenting with increase in auditory/visual hallucinations -Consult placed to neurology for reevaluation -PRISCILA 12 panel, to include Sjogren's antibodies, scleroderma antibodies, ANCA, angiotensin-converting enzyme, rheumatoid factor were all negative -continue supportive care -Neurology reevaluated on 07/19 stating no change in tx in terms of her hallucinations. Recommend continue following with psych and ID. -Patient continues to have hallucinations on and off since admission- requiring seroquel more frequently -Neck pain on 07/23, believe this to be musculoskeletal in nature rather than any other concerning etiologies- continue monitor with serial exams -MRI on 07/24 showed no significant change from MRI from 1 month ago -Psych recommended increase of Seroquel from 50 mg to 100 mg daily -On 07/28 patient pt was given 150 mg of Seroquel due to hallucinations; this did not improve hallucinations and she became very agitated and had trouble sleeping -EKG showed a prolonged QTc at 473; most likely due to a drug drug interaction between her fluconazole and seroquel -switched Seroquel to 75 mg at night and 25 mg every morning. (100 mg total daily) with 12.5 mg Seroquel every 6 hours PRN for agitation -repeat EKG 07/30 showed QTc of 462 History of recurrent cryptococcal meningitis (dx 02/2022) (immune suppressed state from cirrhosis) -ID consulted; brain MRI - increased inflammation of her cerebellum -LP performed 06/30: CSF meningitis/encephalitis neg, serum cryptococcal Ag neg; crypto CSF neg -fungal blood cx neg -Began liposomal amphotericin (3mg/kg daily) and flucytosine (25 mg/kg QID) 06/25 for concern of recurrence; d/c on 07/05 due to marrow suppression/worsening kidney function -Continuing fluconazole 400mg per ID recommendations. -Discussed with patient's ID physician, Dr. Huggins, and the plan is to continue fluconazole for prophylaxis -Hallucinations managed as above ?blood in urine -per pt, started after fall -in conjunction with abdominal discomfort -UA ordered Anemia -s/p 1u PRBC on 07/04 -Hgb remains stable Abdominal pain- resolved with miralax Drug-induced ALBINA- resolved after discontinuing amphotericin and flucytosine Insulin dependent diabetes mellitus -During previous hospitalization, basal insulin was decreased d/t hypoglycemic episodes -Current home regimen; basal insulin 15 units bid with bolus insulin -Not currently on insulin therapy; will add back basal insulin 10 units BID and SSI with CF 35, CR 12 Anxiety -Continue home venlafaxine 150mg daily Paroxysmal afib -Continue metoprolol, Eliquis Cirrhosis -Stable; no acute decompensation Gastritis -Continue pantoprazole and sucralfate Dispo: [facility] on 08/01/2023 Diet: carb consistent DVT ppx: eliquis Code: full Admission and Anticipated Discharge Date Admission Date: June 24, 2023 Supervising Physician Co-Signing Physician Notes ATTESTATION I also saw the patient and confirmed fish portions of the history and exam. I agree with the impression and plan in the resident documentation, and as summarized below. Patient generally feels well. She does note some blood in her urine, though she really cannot pinpoint when this was. Upon review of systems also notes some lower abdominal cramping. Denies any urinary urgency, frequency, dysuria. EXAM 105/65, 68, 16, 36.5, 100% on room air No acute distress. Afebrile. Heart regular rate and rhythm Respirations nonlabored Abdomen soft nontender IMPRESSION & PLAN I agree with the impression and plan as noted in the resident documentation above. Seems to do okay on Seroquel 25 mg in the morning and 75 mg at night, although awaiting repeat EKG to assess QT interval If still any prolongation, will likely switch to equivalent dose Zyprexa We will check urinalysis today Anemia noted; chronic, stable. She is on Eliquis. Continue to monitor. 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 No acute concerns today. She makes note that a few days ago she had a fall. Since then, she states she has been bleeding minimally while urinating and with BM. She has also seen blood in her underwear. No other concerns. She is excited for discharge. Review of Systems Review of Systems: As per HPI Physical Exam Physical Exam: Constitutional: well appearing, no acute distress HEENT: normocephalic, no conjunctival injection CV: regular rhythm, regular rate, no murmur, no LE edema Respiratory: Clear to auscultation bilaterally. No rhonchi, wheezes, or crackles . No increased work of breathing MSK: no gross deformities noted Skin: warm, dry, no rashes Neuro: alert, oriented, no FND noted Results & Data Results & Data Vital Signs (Past 12 Hours) Vital Signs Temp Pulse Resp BP Pulse Ox O2 Del Method 07/29/23 19:16 36.7 C 77 18 109/69 99 Room Air Resident Activity Tracking Resident Involvement: Resident Care Provided Care Provided: Adult Hospital Medicine (9) Hypertension Hypertension type: essential hypertension Qualified Code(s): I10 - Essential (primary) hypertension
[2023-07-30 07:42] LABS: Hematocrit (blood only) 23.5 % (37.0-47.0); Hemoglobin 7.6 g/dl (12.0-16.0); Mean Corpuscular Hemoglobin 28.5 pg (25.0-34.0); Mean Corpuscular Hgb Conc 32.3 g/dL (32.0-36.0); Mean Platelet Volume 11.2 fL (9.4-12.4); Platelet Count 163 K/uL (130-400); RDW Coefficient of Variation 17.1 % (11.5-14.5); RDW Standard Deviation 54.3 fL (36.4-46.3); Red Blood Count 2.67 M/uL (4.20-5.40)
[2023-07-30] MEDS: SUCRALFATE 1 GM/10 ML UDC PO SCH ×4 (08:09→22:40)
[2023-07-30] MEDS: MAGNESIUM CHLORIDE W/CALCIUM 64MG DELAYED REL TAB PO SCH (08:12)
[2023-07-30] MEDS: SACCHAROMYCES BOULARDII 250 MG CAP PO SCH (08:13)
[2023-07-30] MEDS: FLUCONAZOLE 100 MG TAB PO SCH (08:13)
[2023-07-30] MEDS: MULTIVITAMIN TAB PO SCH (08:14)
[2023-07-30] MEDS: CHOLECALCIFEROL 1,000 UNITS 25 MCG TAB PO SCH (08:14)
[2023-07-30] MEDS: POTASSIUM CHLORIDE CRTAB 20 MEQ TABCR PO SCH (08:14)
[2023-07-30] MEDS: MECLIZINE 12.5 MG TAB PO SCH (08:14)
[2023-07-30] MEDS: PANTOprazole 40 MG TAB PO SCH ×2 (08:15→22:38)
[2023-07-30] MEDS: APIXABAN 5 MG TABLET PO SCH ×2 (08:15→22:37)
[2023-07-30] MEDS: METOPROLOL SUCC 25MG EXT REL TAB PO SCH ×2 (08:15→22:39)
[2023-07-30] MEDS: FLUTICASONE PROPIONATE NA SPR 16 GM BTL SCH (08:16)
[2023-07-30] MEDS: LIDOCAINE 5% 1 PATCH TD SCH (08:16)
[2023-07-30 08:21] LABS: Albumin Globulin Ratio 1.2 (0.9-2); Albumin Level 3.7 gm/dl (3.4-5.0); BUN Creatinine Ratio 28.6 (10-20); Bilirubin,Total 0.4 mg/dl (0.2-1.0); Calcium 9.4 mg/dl (8.6-10.3); Creatinine Clr Calc Pharmacy 41.2 ml/min; Est GFR (African American) 55.9 ml/min; Est GFR (Non-African American) 48.2 ml/min; Globulin 3.1 gm/dl (2.5-4.0); Magnesium 1.7 mg/dl (1.7-2.4); Potassium 4.2 mmol/L (3.5-5.1); Total Protein 6.8 gm/dl (6.0-8.3)
[2023-07-30] MEDS: QUEtiapine FUMARATE 25 MG TABLET PO SCH ×2 (10:37→22:39)
--- NOTE | 2023-07-30 12:28 | Psychiatric Progress Note ---
Date of Service July 30, 2023 Impression / Recommendations Impression 63 yo woman with a history of hallucinations, prior cryptococcal meningitis who has traditionally responded well to hospital routines/care. Over recent months has developed significantly more cognitive difficulties related to independent living skills associated with her neurologic condition or other cognitive process. 07/30/23: improved significantly from my last contact. Overall, I spent a total of 35 minutes with this case including review of chart records, direct evaluation of the patient at bedside, discussion with the psychiatric liaison during clinical rounds and documentation in the electronic [facility]. 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 clarify outpatient prescriber as appointment [facility] reportedly cancelled given placement location, etc. Interval History Identifying Information 62 yo female from [facility] of fungal meningitis (crypto) with complicated course. Known to me from stay on 3S in March. 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 Initial consult was for "hallucinations." Chief Complaint "I'm good, I'm ready to move on". Review of Systems Notes denied FLOWERS/N/V/muscle spasm/dizzy Subjective Subjective Patient was seen & assessed and interval progress reviewed with nursing. patient remains cooperative with care. Has described molina and delusions intermittently but today states she's been sleeping well and feeling more clear. She denied concerns other than anxiety about her transition to [facility] and states "I feel more ready than when I left here before." Physical Exam Psychiatric Orientation: alert and oriented x 3 Apperance: appropriately dressed and appropriately groomed Eye Contact: good eye contact Motor Behavior: no abnormal motor movements Speech: normal rate/rhythm/volume of speech Affect: euthymic affect Mood: + anxious mood; no depressed mood Thought Process: + circumstantial thought process Thought Content: reality based without delusions; not paranoid Suicidal Thoughts: denies suicidal thoughts Homicidal Thoughts: denies homicidal thoughts Hallucinations: no auditory hallucinations and no visual hallucinations Cognition: attention grossly intact and language grossly intact Estimated Intelligence: consistent with education level Insight: + limited insight Judgment: + limited judgement Vital Signs (Past 24 Hours) Last Vital Signs Temp 36.5 C 07/30/23 07:17 Pulse 68 07/30/23 07:17 Resp 16 07/30/23 07:17 BP 105/65 07/30/23 07:17 Pulse Ox 100 07/30/23 07:17 O2 Del Method Room Air 07/30/23 07:17 O2 Flow Rate 0 07/04/23 18:52 Results & Data ([facility]) Laboratory Results Laboratory Results - last 24 hr 07/29/23 07/29/23 07/30/23 16:57 20:27 06:37 WBC 5.80 RBC 2.67 L Hgb 7.6 L Hct 23.5 L MCV 88.0 MCH 28.5 MCHC 32.3 RDW Std Deviation 54.3 H RDW Coeff of Jun 17.1 H Plt Count 163 MPV 11.2 Sodium 139 Potassium 4.2 Chloride 107 Carbon Dioxide 23 Anion Gap 9 BUN 34 H Creatinine 1.19 Est Cr Clr Drug Dosing 41.2 Est GFR ( Amer) 55.9 Est GFR (Non-Af Amer) 48.2 BUN/Creatinine Ratio 28.6 H Glucose 195 H POC Glucose 199 H 249 H Calcium 9.4 Magnesium 1.7 Total Bilirubin 0.4 AST 24 ALT 13 Alkaline Phosphatase 186 H Total Protein 6.8 Albumin 3.7 Globulin 3.1 Albumin/Globulin Ratio 1.2 07/30/23 07/30/23 08:17 11:49 WBC RBC Hgb Hct MCV MCH MCHC RDW Std Deviation RDW Coeff of Jun Plt Count MPV Sodium Potassium Chloride Carbon Dioxide Anion Gap BUN Creatinine Est Cr Clr Drug Dosing Est GFR ( Amer) Est GFR (Non-Af Amer) BUN/Creatinine Ratio Glucose POC Glucose 215 H 178 H Calcium Magnesium Total Bilirubin AST ALT Alkaline Phosphatase Total Protein Albumin Globulin Albumin/Globulin Ratio Current Inpatient Medications Current Inpatient Medications: Current Inpatient Medications Acetaminophen (Acetaminophen 325 Mg Tab) 650 mg PO Q8H PRN PRN Reason: Pain/headache Stop: 08/02/23 14:15 Last Admin: 07/27/23 04:08 Dose: 650 mg Apixaban (Apixaban 5 Mg Tablet) 5 mg PO BID [facility] Stop: 08/24/23 09:44 Last Admin: 07/30/23 08:15 Dose: 5 mg Fluconazole (Fluconazole 100 Mg Tab) 400 mg PO QAM [facility] Stop: 08/04/23 09:44 Last Admin: 07/30/23 08:13 Dose: 400 mg Fluticasone Propionate (Fluticasone Propionate Na Spr 16 Gm Btl) 1 sprays NA DAILY [facility] Stop: 08/24/23 09:44 Last Admin: 07/30/23 08:16 Dose: 1 sprays Lidocaine (Lidocaine 5% 1 Patch) 1 patch TD QAM [facility] Stop: 08/28/23 11:14 Last Admin: 07/30/23 08:16 Dose: 1 patch Magnesium Chloride (Magnesium Chloride W/Calcium 64mg Delayed Rel Tab) 64 mg PO QAM [facility] Stop: 08/24/23 09:44 Last Admin: 07/30/23 08:12 Dose: 64 mg Meclizine HCl (Meclizine 12.5 Mg Tab) 12.5 mg PO QAM [facility] Stop: 08/24/23 09:44 Last Admin: 07/30/23 08:14 Dose: 12.5 mg Menthol (Cough Drop (Sugar Free) Miranda 24 Miranda/1 Box) 1 miranda BUCCAL DAILY PRN PRN Reason: Sore Throat Stop: 08/06/23 19:30 Last Admin: 07/07/23 20:29 Dose: 1 miranda Metoprolol Succinate (Metoprolol Succ 25mg Ext Rel Tab) 25 mg PO BID [facility] Stop: 08/24/23 09:44 Last Admin: 07/30/23 08:15 Dose: 25 mg Miscellaneous (Remove Lidoderm Patch) 1 each N/A DAILY@2100 [facility] Stop: 08/28/23 20:59 Last Admin: 07/29/23 20:25 Dose: 1 each Multivitamins (Multivitamin Tab) 1 tab PO QAM [facility] Stop: 08/24/23 09:44 Last Admin: 07/30/23 08:14 Dose: 1 tab Pantoprazole Sodium (Pantoprazole 40 Mg Tab) 40 mg PO BID [facility] Stop: 08/24/23 09:44 Last Admin: 07/30/23 08:15 Dose: 40 mg Polyethylene Glycol (Polyethylene (Miralax) 17 Gm Pack) 17 gm PO DAILY PRN PRN Reason: constipation Stop: 08/12/23 08:59 Potassium Chloride (Potassium Chloride Crtab 20 Meq Tabcr) 20 meq PO QAM [facility] Stop: 08/24/23 09:44 Last Admin: 07/30/23 08:14 Dose: 20 meq Quetiapine Fumarate (Quetiapine Fumarate 25 Mg Tablet) 12.5 mg PO Q6H PRN PRN Reason: Anxiety Stop: 08/02/23 12:15 Last Admin: 07/30/23 06:17 Dose: 12.5 mg Quetiapine Fumarate (Quetiapine Fumarate 25 Mg Tablet) 25 mg PO QAM [facility] Stop: 08/29/23 08:59 Last Admin: 07/30/23 10:37 Dose: Not Given Quetiapine Fumarate (Quetiapine Fumarate 25 Mg Tablet) 75 mg PO HS [facility] Stop: 08/28/23 20:59 Last Admin: 07/29/23 20:24 Dose: 75 mg Saccharomyces Boulardii (Saccharomyces Boulardii 250 Mg Cap) 250 mg PO DAILY [facility] Stop: 08/24/23 09:44 Last Admin: 07/30/23 08:13 Dose: 250 mg Sucralfate (Sucralfate 1 Gm/10 Ml Udc) 1 gm PO ACHS [facility] Stop: 08/24/23 11:29 Last Admin: 07/30/23 12:11 Dose: 1 gm Venlafaxine HCl (Venlafaxine Hcl Xr 150 Mg Capxr) 150 mg PO QPM [facility] Stop: 08/24/23 20:59 Last Admin: 07/29/23 20:27 Dose: 150 mg Venlafaxine HCl (Venlafaxine Hcl Xr 75 Mg Capxr) 75 mg PO QPM [facility] Stop: 08/24/23 20:59 Last Admin: 07/29/23 20:28 Dose: 75 mg Vitamin D (Cholecalciferol 1,000 Units 25 Mcg Tab) 2,000 units PO QAM [facility] Stop: 08/24/23 09:44 Last Admin: 07/30/23 08:14 Dose: 2,000 units
[2023-07-30] MEDS ORDERED: GLUCAGON FOR INJ 1 MG VIAL IM PRN (15:45)
[2023-07-30] MEDS ORDERED: GLUCOSE 40% GEL 15 GM TUBE PO PRN (15:45)
[2023-07-30] MEDS ORDERED: DEXTROSE 50% 50 ML SYRINGE IV PRN (15:45)
[2023-07-30] MEDS ORDERED: GLUCOSE 10 TAB/TUBE PO PRN (15:45)
[2023-07-30] MEDS ORDERED: CARBOHYDRATES FOR HYPOGLYCEMIA PO PRN (15:45)
[2023-07-30] MEDS: INSULIN ASPART PER UNIT CHARGE SC SCH ×2 (17:15→22:35)
[2023-07-30] MEDS: LANTUS PER UNIT CHARGE SQ SCH (22:35)
[2023-07-30] MEDS: VENLAFAXINE HCL XR 150 MG CAPXR PO SCH (22:38)
[2023-07-30] MEDS: VENLAFAXINE HCL XR 75 MG CAPXR PO SCH (23:51)
[2023-07-31 07:12] LABS: Appearance Urine Turbid (Clear); Bacteria Urine Automated 2+ (Negative); Bilirubin Urine Negative (Negative); Blood Urine 2+ (Negative); Color Urine Yellow; Glucose Urine UA Negative (Negative); Ketones Urine Negative (Negative); Leukocyte Esterase Urine 3+ (Negative); Nitrite Urine Positive (Negative); Protein Urine 1+ (Negative); RBC Urine Automated 0-4 /hpf (0-4); Specific Gravity Urine 1.017 (1.000-1.030); Urobilinogen Urine Negative (Negative); WBC Urine Automated >30 /hpf (0-5)
--- NOTE | 2023-07-31 07:15 | Hospitalist Progress Note ---
Date of Service July 31, 2023 Assessment & Plan (1) Hallucinations: (2) Uncontrolled type 2 diabetes mellitus with hyperglycemia, with long-term current use of insulin: (3) Anxiety: (4) Paroxysmal A-fib: (5) Cirrhosis of liver: (6) Hypomagnesemia: (7) Hypokalemia: (8) Gastritis: (9) Hypertension: Plan Lynne Ye is 63 year-old female with PMH of cryptococcal meningitis w/ associated auditory/visual hallucinations, cirrhosis, DM2, afib, hypomagnesemia, hypokalemia, HLD, peripheral edema, anxiety, depression, gastritis, and HTN presenting with an increase in her hallucinations. UTI -per pt, blood in urine started after fall a few days ago and since then she has had cramping abdominal pain and now burning with urination -UA showing 3+ LE, positive nitrite, 2+ blood and yeast; urine cx pending -will tx with bactrim BID x3 days (end 08/02); pt already on fluconazole if yeast is a concern for infection rather colonization Hallucinations with leptomeningeal enhancement on MRI -Pt presenting with increase in auditory/visual hallucinations -Consult placed to neurology for reevaluation -PRISCILA 12 panel, to include Sjogren's antibodies, scleroderma antibodies, ANCA, angiotensin-converting enzyme, rheumatoid factor were all negative -continue supportive care -Neurology reevaluated on 07/19 stating no change in tx in terms of her hallucinations. Recommend continue following with psych and ID. -Patient continues to have hallucinations on and off since admission- requiring seroquel more frequently -Neck pain on 07/23, believe this to be musculoskeletal in nature rather than any other concerning etiologies- continue monitor with serial exams -MRI on 07/24 showed no significant change from MRI from 1 month ago -Psych recommended increase of Seroquel from 50 mg to 100 mg daily -On 07/28 patient pt was given 150 mg of Seroquel due to hallucinations; this did not improve hallucinations and she became very agitated and had trouble sleeping -EKG showed a prolonged QTc at 473; most likely due to a drug drug interaction between her fluconazole and seroquel; repeat EKGs show decreased QTc -switched Seroquel to 75 mg at night and 25 mg every morning. 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 -Discussed with patient's ID physician, Dr. Huggins, and the plan is to continue fluconazole for prophylaxis -Hallucinations managed as above Anemia -s/p 1u PRBC on 07/04 -Hgb remains stable Abdominal pain- resolved with miralax Drug-induced ALBINA- resolved after discontinuing amphotericin and flucytosine Insulin dependent diabetes mellitus -During previous hospitalization, basal insulin was decreased d/t hypoglycemic episodes -Current home regimen; basal insulin 15 units bid with bolus insulin -Not currently on insulin therapy; will add back basal insulin 10 units BID and SSI with CF 35, CR 12 Anxiety -Continue home venlafaxine 150mg daily Paroxysmal afib -Continue metoprolol, Eliquis Cirrhosis -Stable; no acute decompensation Gastritis -Continue pantoprazole and sucralfate Dispo: [facility] on 08/01/2023 Diet: carb consistent DVT ppx: eliquis Code: full Admission and Anticipated Discharge Date Admission Date: June 24, 2023 Supervising Physician Co-Signing Physician Notes ATTESTATION I also saw the patient and confirmed fish portions of the history and exam. I agree with the impression and plan in the resident documentation, and as summarized below. She does note some dysuria since I talked to her yesterday afternoon. EXAM 120/78, 69, 16 No acute distress. Afebrile. Heart regular rate and rhythm Respirations nonlabored Abdomen soft nontender DATA Urine cultures pending IMPRESSION & PLAN I agree with the impression and plan as noted in the resident documentation above. Empiric treatment for UTI given symptoms, will adjust based on final culture results Doing well on current dose of Seroquel (25mg in a.m., 75mg in p.m.), however, need to be cautious with Seroquel in combination with fluconazole and QT i nterval Most recent QT interval looks good; will need periodic monitoring If needs to titrate Seroquel at all, would consider switch to equivalent dose of Zyprexa which in theory has less potential for QT prolongation Anemia noted; chronic, stable. She is on Eliquis. Continue to monitor. 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 No acute concerns today. She notes the most bothersome thing now is her urinary symptoms; her urine now yi. Otherwise, no chest pain, SOB, or leg pains. Review of Systems Review of Systems: As per HPI Physical Exam Physical Exam: Constitutional: well appearing, no acute distress HEENT: normocephalic, no conjunctival injection CV: clinically well perfused, no LE edema Respiratory: No increased work of breathing MSK: no gross deformities noted Skin: warm, dry, no rashes Neuro: alert, oriented, no FND noted Results & Data Results & Data Vital Signs (Past 12 Hours) Vital Signs Temp Pulse Resp BP Pulse Ox O2 Del Method 07/30/23 23:30 36.9 C 77 16 109/67 93 Room Air Resident Activity Tracking Resident Involvement: Resident Care Provided Care Provided: Adult Hospital Medicine (9) Hypertension Hypertension type: essential hypertension Qualified Code(s): I10 - Essential (primary) hypertension
[2023-07-31] MEDS: SUCRALFATE 1 GM/10 ML UDC PO SCH ×4 (08:40→19:22)
[2023-07-31] MEDS: MECLIZINE 12.5 MG TAB PO SCH (08:46)
[2023-07-31] MEDS: FLUTICASONE PROPIONATE NA SPR 16 GM BTL SCH (08:46)
[2023-07-31] MEDS: SACCHAROMYCES BOULARDII 250 MG CAP PO SCH (08:46)
[2023-07-31] MEDS: CHOLECALCIFEROL 1,000 UNITS 25 MCG TAB PO SCH (08:47)
[2023-07-31] MEDS: MAGNESIUM CHLORIDE W/CALCIUM 64MG DELAYED REL TAB PO SCH (08:47)
[2023-07-31] MEDS: APIXABAN 5 MG TABLET PO SCH ×2 (08:47→19:22)
[2023-07-31] MEDS: PANTOprazole 40 MG TAB PO SCH ×2 (08:47→19:22)
[2023-07-31] MEDS: MULTIVITAMIN TAB PO SCH (08:48)
[2023-07-31] MEDS: FLUCONAZOLE 100 MG TAB PO SCH (08:48)
[2023-07-31] MEDS: LIDOCAINE 5% 1 PATCH TD SCH (08:49)
[2023-07-31] MEDS: QUEtiapine FUMARATE 25 MG TABLET PO SCH ×2 (08:49→21:34)
[2023-07-31] MEDS: METOPROLOL SUCC 25MG EXT REL TAB PO SCH ×2 (08:49→19:27)
[2023-07-31] MEDS: SULFAMETHOXAZOLE/TRIMETHOPRIM DS 800/160MG TAB PO SCH ×2 (08:58→19:22)
[2023-07-31] MEDS: INSULIN ASPART PER UNIT CHARGE SC SCH ×4 (08:58→21:31)
[2023-07-31] MEDS: LANTUS PER UNIT CHARGE SQ SCH ×2 (08:59→21:32)
--- NOTE | 2023-07-31 18:10 | Electrocardiogram Report ---
Test Reason : Blood Pressure : / mmHG Vent. Rate : 064 BPM Atrial Rate : 064 BPM P-R Int : 142 ms QRS Dur : 112 ms QT Int : 448 ms P-R-T Axes : 058 -47 035 degrees QTc Int : 462 ms Normal sinus rhythm Left anterior fascicular block Nonspecific ST abnormality Abnormal ECG When compared with ECG of 29-JUL-2023 11:25, No significant change was found Confirmed by Arvin Green ([id number]) on 07/31/2023 6:09:48 PM Referred By: REFERRED SELF Confirmed By:Arvin Green
[2023-07-31] MEDS: VENLAFAXINE HCL XR 75 MG CAPXR PO SCH (19:22)
[2023-07-31] MEDS: VENLAFAXINE HCL XR 150 MG CAPXR PO SCH (19:23)
--- NOTE | 2023-07-31 22:29 | Electrocardiogram Report ---
Test Reason : Blood Pressure : / mmHG Vent. Rate : 068 BPM Atrial Rate : 068 BPM P-R Int : 140 ms QRS Dur : 110 ms QT Int : 414 ms P-R-T Axes : 070 -14 052 degrees QTc Int : 440 ms Poor data quality, interpretation may be adversely affected Normal sinus rhythm Nonspecific ST abnormality Abnormal ECG When compared with ECG of 30-JUL-2023 07:22, (unconfirmed) Left anterior fascicular block is no longer Present Confirmed by Arvin Green ([id number] on 07/31/2023 10:28:44 PM Referred By: REFERRED SELF Confirmed By:Arvin Green
[2023-08-01 06:51] LABS: Hematocrit (blood only) 25.5 % (37.0-47.0); Mean Corpuscular Hemoglobin 27.9 pg (25.0-34.0); Mean Corpuscular Hgb Conc 31.4 g/dL (32.0-36.0); Mean Corpuscular Volume 88.9 fL (80.0-100.0); Platelet Count 200 K/uL (130-400); RDW Coefficient of Variation 16.8 % (11.5-14.5); RDW Standard Deviation 55.2 fL (36.4-46.3); Red Blood Count 2.87 M/uL (4.20-5.40); White Blood Count 6.65 K/ul (4.8-10.8)
[2023-08-01 07:18] LABS: BUN Creatinine Ratio 21.8 (10-20); Calcium 9.4 mg/dl (8.6-10.3); Creatinine Clr Calc Pharmacy 34.6 ml/min; Est GFR (African American) 45.1 ml/min; Est GFR (Non-African American) 38.9 ml/min; Potassium 3.9 mmol/L (3.5-5.1)
--- NOTE | 2023-08-01 08:16 | Discharge Summary ---
Date of Service August 01, 2023 Admission HPI Per Admitting Provider 63 yo female with PMHx h/o cryptococcal meningitis, auditory/visual hallucinations, cirrhosis, DM2, afib, hypomagnesemia, hypokalemia, HLD, peripheral edema, anxiety, depression, gastritis, and HTN presents with worsening hallucinations. Patient was just discharged from [facility] 2 days ago for weakness secondary to prolonged diarrhea. She lives on her own. Son is at bedside. She presents today with increasing auditory and visual hallucinations. She states that she cannot tell what is real and what is not. For example if she sees a picture of someone on her phone she believes that the person speaking to her. She has had these hallucinations for years now but they seem to be worsening especially over the last few days. Her son states that when he went to go visit her today she was still in the same clothing from few days ago. He also states that for some time now she has been eating less and forgetting things easily. She does have a history of cryptococcal meningitis a couple of years ago which she followed up with neurology for and subsequent testing was negative. Her son has been in contact with [facility] of the last couple of days for potential placement and they stated they do have beds available but she does need medical clearance prior to being placed. She has chronic frontal headache and some anterior neck tightness. Otherwise denies visual changes (aside from visual hallucinations), fever, fatigue, chest pain, shortness of breath, abdominal pain, nausea, vomiting, diarrhea, weakness. Admission Exam Per Admitting Provider Constitutional: in no acute distress, pleasant and normal affect, intact memory. AOx3. Vitals as above. HEENT: No scleral injection or discharge.Moist mucous membranes. Neck: Supple without lymphadenopathy or thyromegaly. Trachea midline. Lungs: Clear to auscultation bilaterally with good effort. No wheezes/rales/rhonchi. Cardiac: RRRNo murmurs.No extremity edema. 2+ distal peripheral pulses. Abdomen: Soft, nontender, and nondistended.No guarding. No hepatosplenomegaly. MSK: No cyanosis or clubbing. Extremities motor strength 5/5. Skin: No rashes, warm, dry. Neurologic: Grossly intact cranial nerves. PERRL. Principal Diagnosis hallucinations Discharge Exam Constitutional: well appearing, no acute distress HEENT: normocephalic, no conjunctival injection CV: RRR no m/r/g clinically well perfused, no LE edema Respiratory: CTAB No increased work of breathing MSK: no gross deformities noted Skin: warm, dry, no rashes Neuro: alert, oriented, no FND noted Discharge Data Allergies Allergy/AdvReac Type Severity Reaction Status Date / Time Penicillins Allergy Intermediate Hives Verified 06/23/23 20:51 atorvastatin Allergy Unknown CAN'T Verified 06/23/23 20:51 REMEMBER/? RAISED LIVER LEVELS gemfibrozil [From Lopid] Allergy Unknown CAN'T Verified 06/23/23 20:51 REMEMBER/ ? RAISED LIVER LEVELS rosuvastatin AdvReac Intermediate Muscle Pain Verified 06/23/23 20:51 acetaminophen [From Tylenol] AdvReac Unknown CAN NOT Verified 06/23/23 20:51 TAKE D/T LIVER ISSUES ibuprofen AdvReac Unknown liver Verified 06/23/23 20:51 issues Ordered Studies Chest X-Ray 06/23/23 21:05 FINDINGS: No lines and tubes are seen. The cardiomediastinal silhouette is normal. The lungs are clear. No evidence of pleural effusion or pneumothorax. IMPRESSION: No acute chest disease. Head CT 06/23/23 21:05 FINDINGS: No acute intracranial hemorrhage. No midline shift or mass effect. The territorial lawson-white matter differentiation is maintained throughout. Age-related cerebral volume loss. Periventricular and subcortical white matter hypoattenuation, consistent with chronic microangiopathy. The visualized orbits appear grossly unremarkable. The calvarium is intact. The visualized paranasal sinuses and mastoid air cells are grossly clear. IMPRESSION: No acute intracranial hemorrhage, midline shift, or mass effect. Brain MRI 06/24/23 12:42 FINDINGS: No restricted diffusion. Midline structures appear unremarkable. No pathologic blooming artifact. No acute intracranial hemorrhage, midline shift, abnormal extra-axial collection, hydrocephalus or intra-axial mass. Moderate patchy T2/FLAIR hyperintense foci throughout the white matter. Cerebral venous sinuses and major arterial flow voids are patent. Prior bilateral lens repair. Mastoid air cells and paranasal sinuses are clear. No abnormal intra-axial enhancement. Cerebellar leptomeningeal enhancement again noted which has progressed from the prior. IMPRESSION: 1. Progressive leptomeningeal enhancement of the cerebellum which has worsened compared to the 07/07/2022 study. Findings likely correlate with the reported history of meningitis. 2. No acute intracranial hemorrhage, midline shift or acute infarct. 3. Moderate T2/FLAIR hyperintense foci throughout the white matter suggests probable chronic microvascular ischemic disease. Lumbar Puncture 06/30/23 09:00 Lumbar puncture under fluoroscopy INDICATION: History of cryptococcal meningitis with recurrent symptoms PROCEDURE: Procedure and risks were explained. Informed consent was obtained. A final timeout was completed. The patient was placed prone on the fluoroscopic exam table. The lower lumbar region was prepped and draped in sterile fashion. 1% lidocaine was utilized for skin anesthesia. Utilizing ultrasound guidance, a 22-gauge spinal needle was advanced into the intrathecal space at the L4-5 disc space level. 2 permanent spot images were obtained. Approximately 8 mL of clear CSF fluid was removed and sent to lab for analysis. The needle was removed and Band-Aid applied. The patient tolerated the procedure well. Vital signs will be monitored postprocedure. Total fluoroscopy time 0.2 minutes. DAP is 4.42 mcGy/m2. IMPRESSION: Lumbar puncture as above. KUB X-Ray 07/09/23 11:53 FINDINGS: Cholecystomy clips are seen in the right upper quadrant. Degenerative changes are seen in the visualized skeleton. Left hip total arthroplasty is seen. The bowel gas pattern is nonobstructive. A moderate amount of stool is noted within the large bowel. IMPRESSION: Nonobstructive bowel gas pattern. Brain MRI 07/24/23 12:02 FINDINGS: Motion degraded exam. No restricted diffusion. Midline structures appear unremarkable. No pathologic blooming artifact. No acute intracranial hemorrhage, midline shift, abnormal extra-axial collection, hydrocephalus or intra-axial mass. Moderate patchy T2/FLAIR hyperintense foci throughout the white matter again noted. Cerebral venous sinuses and major arterial flow voids are patent. Prior bilateral lens repair. Mastoid air cells and paranasal sinuses are clear. No abnormal intra-axial enhancement. Cerebellar leptomeningeal enhancement again noted which appears generally stable compared to 06/24/2023. IMPRESSION: 1. Persistent leptomeningeal enhancement of the cerebellum which appears generally stable compared to the 06/24/2023 exam. Findings likely correlate with the reported history of meningitis. 2. No acute intracranial hemorrhage, midline shift or acute infarct. 3. Moderate T2/FLAIR hyperintense foci throughout the white matter suggests probable chronic microvascular ischemic disease. 08/01/23 06:11 11/06/23 06:11 Hospital Course (1) Hallucinations: (2) Uncontrolled type 2 diabetes mellitus with hyperglycemia, with long-term current use of insulin: (3) Anxiety: (4) Paroxysmal A-fib: (5) Cirrhosis of liver: (6) Hypomagnesemia: (7) Hypokalemia: (8) Gastritis: (9) Hypertension: Plan Lynne Ye is 63 year-old female with PMH of cryptococcal meningitis w/ associated auditory/visual hallucinations, cirrhosis, DM2, afib, hypomagnesemia, hypokalemia, HLD, peripheral edema, anxiety, depression, gastritis, and HTN presenting with an increase in her hallucinations. UTI Symptomatic bacteruria. Bactrim BID x 3 days end 08/02 Hallucinations with leptomeningeal enhancement on MRI Pt presenting with increase in auditory/visual hallucinations. Continued throughout clinical stay. Improved with updated Seroquel dosing. Currently on 75 mg HS, 25 mg QAM with 12.5 mg Q6H PRN. With the potential for drug drug interaction between fluconazole and Seroquel patient will require close monitoring of QTC. Most recent QTC was acceptable. Neurology, ID, and Psych consulted during hospital stay. 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 -Discussed with patient's ID physician, Dr. Huggins, and the plan is to continue fluconazole for prophylaxis Anemia s/p 1u PRBC on 07/04. Hgb remains stable. Recommend f/u outpatient Abdominal pain- resolved with miralax Drug-induced ALBINA- improved after discontinuing amphotericin and flucytosine Insulin dependent diabetes mellitus During previous hospitalization, basal insulin was decreased d/t hypoglycemic episodes. Current home regimen; basal insulin 15 units bid with bolus insulin. Continue home dosing on discharge. Anxiety Continue home venlafaxine 150mg daily Paroxysmal afib Continue metoprolol, Eliquis Cirrhosis Stable; no acute decompensation Gastritis Continue pantoprazole and sucralfate Dispo: [facility] on 08/01/2023 Diet: carb consistent DVT ppx: eliquis Code: full Total Time Total Time Spent Total Time Spent (In Minutes): See attending attestation Discharge Plan Discharge Items Patient Disposition: Personal Retirement Reason For Visit: HALLUCINATIONS Discharge Diagnosis: cryptococcal meningitis Activity: Per Instructions section Non-emergency contact: Primary Care Provider Call non-emergency contact if: your symptoms worsen and your temperature is above 101.5 Follow-up/Referrals: [facility] [Other] - 07/18/23 9:30 am (Provider: Ivett Barragan PA-C) Leia Doyle DO [Primary Care Provider] - 08/15/23 9:20 am Diet: Carb Consistent or DM2 Addtl Attending Provider Instructions: Lynne Ye is 63 year-old female with PMH of cryptococcal meningitis w/ associated auditory/visual hallucinations, cirrhosis, DM2, afib, hypomagnesemia, hypokalemia, HLD, peripheral edema, anxiety, depression, gastritis, and HTN presenting with an increase in her hallucinations. UTI -per pt, blood in urine started after fall a few days ago and since then she has had cramping abdominal pain and now burning with urination -UA showing 3+ LE, positive nitrite, 2+ blood and yeast; urine cx pending -will tx with bactrim BID x3 days (end 08/02); pt already on fluconazole if yeast is a concern for infection rather colonization Hallucinations with leptomeningeal enhancement on MRI -Pt presenting with increase in auditory/visual hallucinations -Consult placed to neurology for reevaluation -PRISCILA 12 panel, to include Sjogren's antibodies, scleroderma antibodies, ANCA, angiotensin-converting enzyme, rheumatoid factor were all negative -continue supportive care -Neurology reevaluated on 07/19 stating no change in tx in terms of her hallucinations. Recommend continue following with psych and ID. -Patient continues to have hallucinations on and off since admission requiring Seroquel more frequently. 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 -Discussed with patient's ID physician, Dr. Huggins, and the plan is to continue fluconazole for prophylaxis -Hallucinations managed as above Anemia -s/p 1u PRBC on 07/04 -Hgb remains stable Abdominal pain- resolved with miralax Drug-induced ALBINA- resolved after discontinuing amphotericin and flucytosine Insulin dependent diabetes mellitus -During previous hospitalization, basal insulin was decreased d/t hypoglycemic episodes -Current home regimen; basal insulin 15 units bid with bolus insulin -Monitor for hypoglycemia Anxiety -Continue home venlafaxine 150mg daily Paroxysmal afib -Continue metoprolol, Eliquis Cirrhosis -Stable; no acute decompensation Gastritis -Continue pantoprazole and sucralfate Pending Studies at Discharge: No Stand-Alone Forms: [email or web address], Smoking Cessation Skilled Items Patient informed of condition?: Yes DNR: No Discharge Level of Care: Skilled Communicable Disease: No Discharge Prognosis: Stable Lines: None Urinary Catheter: No Medications and DC Order Prescriptions: New quetiapine 25 mg Tablet 75 mg PO HS Qty: 90 0RF quetiapine 25 mg Tablet 25 mg PO QAM Qty: 30 0RF fluconazole [Diflucan] 100 mg Tablet 400 mg PO QAM Qty: 120 0RF acetaminophen 325 mg Tablet 650 mg PO Q8H PRN (Reason: pain) Qty: 30 0RF sulfamethoxazole-trimethoprim [Bactrim DS] 800-160 mg Tablet 1 tab PO Q12 Qty: 3 0RF lidocaine 5 % Adhesive Patch,Medicated 1 patch transdermal QAM Qty: 30 0RF venlafaxine 150 mg capsule,extended release 24hr 150 mg PO HS Qty: 30 0RF Continued multivitamin tablet 1 tab PO QAM Qty: 30 0RF venlafaxine 75 mg capsule,extended release 24hr 75 mg PO QPM Qty: 30 0RF Rx Instructions: take with 150 mg smn=727 mg. sucralfate [Carafate] 100 mg/mL suspension 10 ml PO QID Qty: 420 0RF Rx Instructions: swish in mouth and swallow; use after food/drink: May substitute tablets as a slurry. promethazine 12.5 mg tablet 12.5 mg PO TID PRN (Reason: nausea and vomiting) Qty: 30 2RF meclizine 12.5 mg tablet 12.5 mg PO QAM Qty: 30 1RF (DME) Contour Next Test Strips Strip See Rx Instructions .ROUTE .MEDSUPPLY Qty: 300 11RF Rx Instructions: Test blood sugars 6 times a day pantoprazole 40 mg tablet,delayed release (DR/EC) 40 mg PO BID Qty: 180 1RF diphenhydramine HCl [Allergy (diphenhydramine)] 25 mg capsule 25 mg PO TID PRN (Reason: Allergy Symptoms) Qty: 30 0RF furosemide 20 mg tablet 20 mg PO QAM PRN (Reason: volume overload or weight gain) Qty: 30 0RF metoprolol succinate 25 mg Tablet Extended Release 24 Hr 25 mg PO BID Qty: 60 0RF fluticasone propionate [Flonase Allergy Relief] 50 mcg/actuation spray,suspension 1 spray intranasal DAILY Qty: 16 2RF Rx Instructions: administer into each nostril betamethasone dipropionate 0.05 % lotion 1 applic topical TID PRN (Reason: skin irritation) Qty: 60 0RF insulin aspart U-100 100 unit/mL (3 mL) insulin pen See Rx Instructions SUBCUT TIDM Qty: 15 0RF Rx Instructions: subcutaneously three times daily with meals; Per sliding scale TDD: 80 units daily. (verified pat call 09/24/22) Saccharomyces boulardii [Florastor] 250 mg capsule 250 mg PO BID Qty: 20 0RF insulin glargine [Lantus Solostar U-100 Insulin] 100 unit/mL (3 mL) insulin pen 15 unit subcut AMPM Qty: 12 0RF cholecalciferol (vitamin D3) 50 mcg (2,000 unit) capsule 2,000 unit PO DAILY Qty: 90 3RF Mag 64 64 mg Tablet,Delayed Release (Dr/Ec) 64 mg PO BID Qty: 60 0RF Zyrtec 10 mg capsule 10 mg PO DAILY Qty: 90 1RF Eliquis 5 mg Tablet 5 mg PO BID Qty: 60 0RF potassium chloride 20 mEq tablet extended release 20 meq PO QAM Qty: 90 2RF Discontinued quetiapine 25 mg tablet 25 mg PO HS Qty: 30 0RF fluconazole 200 mg tablet 400 mg PO DAILY venlafaxine [Effexor XR] 150 mg capsule,extended release 24hr 150 mg PO QPM Qty: 1 0RF Rx Instructions: take with 75 mc=489 mg Discharge Orders: Discharge Order (Routine); Ordered 08/01/23 Ordered By: Kaelyn Espinal/Other Patient Handouts: ED Confusion Admission Data Admit Date/Time: 06/24/23 01:22 Attending Provider: Dominic Conn Admit Provider: Abdullahi Palomino Primary Care Provider: Leia Doyle Other Providers: Garett Stevens; Perlita Mendosa; Eliseo Polanco; Gin Zuleta; Katja Honeycutt; Veronika Smith; Dary Ray; Rhiannon Espinoza; Eliza Jameson; Evelina Deutsch; Abbie Villareal; Lalo Medrano; Feliciano Castaneda; Yovanny Walker I.; Srinath Hickman II; Roxanne Becker; Luis Daniel Baig; Kenan Tran; Clarice Huggins; Eddy Amaro; Bettye Rodríguez; Kera Wayne; Luis Daniel Masters; Dominic Conn; Jigar Zepeda; Delbert Dailey; Teodora Salas; Juanita Westbrook; Kaylee Espinoza; Deangelo Gilbert Other Interventions: Discharge Summary Assessment (RN) Last Done: 08/01/23 09:45 Supervising Physician Co-Signing Physician Notes I personally examined the patient and verified all fish points of history and exam, discussed case, and agree with decision making with Dr Lynn son present. feeling anxious about leaving but also ok with plans Vitals noted, in general sitting calmly NAD. HEENT normocephalic atraumatic mucous membranes moist. Breathing unlabored no accessory muscle use good effort. Skin shows no rashes no pallor or icterus. Neuro without focal deficits. Hallucinationsseems to be at least indirectly "fall out" from her cryptococcal meningitisID does not see any evidence of active infection. Neurology and psychiatry input appreciated. repeat MRI done last week is stable from her one previouslyand overall the plan for now is safe disposition, and outpatient follow-up with her [facility] infectious disease doc, and possibly a third opinion depending on further input from him. ongoing coordination with PCP and psych as outpt to try to best balance suppressing hallucinations and dysphoria vs oversedation from meds. outpt anticipate close PCP follow up, ongoing ID follow up w Dr Huggins, probable intermittent assistance with psych. otherwise as above Resident Activity Tracking Resident Involvement: Resident Care Provided Care Provided: Adult Hospital Medicine
[2023-08-01] MEDS: MAGNESIUM CHLORIDE W/CALCIUM 64MG DELAYED REL TAB PO SCH (08:33)
[2023-08-01] MEDS: METOPROLOL SUCC 25MG EXT REL TAB PO SCH (08:33)
[2023-08-01] MEDS: SUCRALFATE 1 GM/10 ML UDC PO SCH (08:33)
[2023-08-01] MEDS: CHOLECALCIFEROL 1,000 UNITS 25 MCG TAB PO SCH (08:33)
[2023-08-01] MEDS: QUEtiapine FUMARATE 25 MG TABLET PO SCH (08:33)
[2023-08-01] MEDS: SACCHAROMYCES BOULARDII 250 MG CAP PO SCH (08:33)
[2023-08-01] MEDS: APIXABAN 5 MG TABLET PO SCH (08:34)
[2023-08-01] MEDS: MULTIVITAMIN TAB PO SCH (08:34)
[2023-08-01] MEDS: MECLIZINE 12.5 MG TAB PO SCH (08:34)
[2023-08-01] MEDS: FLUCONAZOLE 100 MG TAB PO SCH (08:34)
[2023-08-01] MEDS: PANTOprazole 40 MG TAB PO SCH (08:34)
[2023-08-01] MEDS: SULFAMETHOXAZOLE/TRIMETHOPRIM DS 800/160MG TAB PO SCH (08:34)
[2023-08-01] MEDS: LIDOCAINE 5% 1 PATCH TD SCH (08:35)
[2023-08-01] MEDS: FLUTICASONE PROPIONATE NA SPR 16 GM BTL SCH (08:35)
[2023-08-01] MEDS: INSULIN ASPART PER UNIT CHARGE SC SCH (08:37)
[2023-08-01] MEDS: LANTUS PER UNIT CHARGE SQ SCH (08:41)
--- NOTE | 2023-08-01 11:20 | Communication Note ---
Date of Service: August 01, 2023 clarified that [facility] appointment was cancelled by outpatient acute care occupational therapist given placement at [facility] that is otherwise served by [facility] for psychiatric back up of care provider at [facility]. Referral form received from [facility] at liaison request and forwarded to [facility] for future reference if needed.
--- NOTE | 2023-08-01 17:48 | Billing Data ---
Date of Service August 01, 2023 Coding Level of Care Code 33985 IN/OBS DISCH 30 MIN/LESS
== END 2023-08-01 10:19 | disposition home or self-care (01) | DRG 98 ==
LOC: ED 20:00 → SUATTDRO 06-24 01:22 → 3W 06-24 01:22

== ENCOUNTER 2023-08-10 11:54 | Inpatient (IN) ==
[2023-08-10 13:34] LABS: Hematocrit (blood only) 24.2 % (37.0-47.0); Hemoglobin 7.6 g/dl (12.0-16.0); Mean Corpuscular Hemoglobin 27.2 pg (25.0-34.0); Mean Corpuscular Hgb Conc 31.4 g/dL (32.0-36.0); Mean Corpuscular Volume 86.7 fL (80.0-100.0); Mean Platelet Volume 11.4 fL (9.4-12.4); Platelet Count 213 K/uL (130-400); RDW Coefficient of Variation 16.3 % (11.5-14.5); RDW Standard Deviation 51.8 fL (36.4-46.3); Red Blood Count 2.79 M/uL (4.20-5.40); White Blood Count 6.62 K/ul (4.8-10.8)
[2023-08-10 13:45] LABS: INR 1.4 (0.9-1.1); Partial Thromboplastin Ratio 1.2; Prothrombin Time 14.6 Seconds (9.0-12.0)
[2023-08-10 13:56] LABS: Albumin Globulin Ratio 1.2 (0.9-2); Albumin Level 3.6 gm/dl (3.4-5.0); BUN Creatinine Ratio 23.6 (10-20); Bilirubin,Total 0.3 mg/dl (0.2-1.0); Calcium 9.7 mg/dl (8.6-10.3); Creatinine Clr Calc Pharmacy 31.8 ml/min; Est GFR (African American) 45.9 ml/min; Est GFR (Non-African American) 39.6 ml/min; Globulin 2.9 gm/dl (2.5-4.0); Potassium 4.2 mmol/L (3.5-5.1); Total Protein 6.5 gm/dl (6.0-8.3)
[2023-08-10 14:02] LABS: Troponin I High Sensitivity 22.8 pg/ml (0-14)
--- NOTE | 2023-08-10 15:49 | Electrocardiogram Report ---
Test Reason : Blood Pressure : / mmHG Vent. Rate : 069 BPM Atrial Rate : 069 BPM P-R Int : 108 ms QRS Dur : 108 ms QT Int : 410 ms P-R-T Axes : 044 -39 067 degrees QTc Int : 439 ms Sinus rhythm with short MS Left axis deviation Incomplete right bundle branch block Possible Old Septal infarct Abnormal ECG When compared with ECG of 31-JUL-2023 05:56, MS interval has decreased Incomplete right bundle branch block now present Borderline Criteria for Septal infarct is now Present Confirmed by Lukas Salazar ([id number]) on 08/10/2023 3:49:20 PM Referred By: Confirmed By:Lukas Salazar
[2023-08-10] MEDS ORDERED: SODIUM CHLORIDE 0.9% 500 ML IV ONE (16:38)
[2023-08-10] MEDS ORDERED: ONDANSETRON INJ 2 MG/ML 2 ML VIAL IV STA (16:38)
--- NOTE | 2023-08-10 17:08 | Emergency Department Note ---
Impression & Plan Fecal impaction in rectum, Constipation, Generalized weakness, Physical deconditioning ED Provider Note NAME: DULCE HUDSON AGE: 63 SEX: F ARRIVES VIA: Walk-In INFORMANT: Patient ED PROVIDER(S): Doe Aguirre MD CHIEF COMPLAINT: Constipation, placement. 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 Patient recently was discharged on 08/01 following a prolonged hospitalization from 06/24 until 08/01 for multiple conditions including ongoing hallucinations (which have fluctuated since March 2023 or more) with repeat evaluation for meningitis that was negative and so patient was continued on fluconazole for prophylaxis, uncontrolled diabetes, anemia. Patient reports she has been having increased abdominal pain and rectal pressure for the past week and believes last time she may have moved her bowels was couple of days ago but only a small amount which was hard and had blood and appeared dark. She is a poor historian but denies fevers, chills, cough, congestion, vomiting. Of note, the patient did arrive to emergency department during time of high volume, acuity and prolonged emergency department waiting times. Critical pathways initiated from triage. Upon arrival to triage patient is afebrile with stable vital signs. EKG is without overt acute ischemia. WBC and platelets within normal limits. H/H 7.6/24.2 within prior recent range of values. INR is 1.4, subtherapeutic. Creatinine 1.4 similar to recent range of values. BUN/creatinine 23, consistent with patient's clinically dry appearance. IV fluid hydration was provided. Initial high-sensitivity troponin 22, nonspecific with delta high-sensitivity troponin essentially unchanged to downtrending. On my evaluation the patient was noted to be in significant pain as she was beginning to feel a hardened rectal stool ball protruding from her anus. On my examination the patient did have a hard stool ball protruding but was unable to be manually disimpacted due to its size and hardness. Scant blood noted from likely straining. No gross hemorrhage. There is no melena. Stool is brown. This was able to be softened somewhat with lubricant but manual disimpaction still unsuccessful. An enema was subsequently performed and was effective with a large amount of stool subsequently passed and significant relief in the patient's symptoms. Of note, family subsequently at the bedside expressed concern that the patient was already requiring more care than her personal retirement could provide and describe that there have been moments where the patient reported she could not walk even to the bathroom because she felt too weak. They had investigate on her own options for placement and reached out to [facility], who had a bed in their memory care unit but would require documentation that described that the patient would have criteria for this in bed. Unfortunate, this was unable to be arranged from the emergency department and given the insistence of the family that she cannot function safely at her facility the patient is very referred to the hospital service for further management evaluation and likely PT/OT and placement. [facility] to evaluate the patient for admission. Triage Nursing notes reviewed and agree them. Prior/external medical records reviewed Vital Signs: reviewed Differential diagnosis: Functional constipation, impaction, obstruction, volvulus, metabolic abnormality, infection, neurologic, as well as other pathologies. ER treatment provided: See below. Diagnostics interpreted by me: ECG: Sinus rhythm with short ND, 69 bpm, incomplete right bundle branch block, no overt ST elevation or depression, QTc 49 previous 1 week. Cardiac Monitoring: An order for continuous cardiac monitoring was placed and demonstrated Laboratory studies: See below Imaging studies: See below Consultation(s): JAMEY Schmitt hospitalist service to evaluate the patient for admission. 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 Patient recently was discharged on 08/01 following a prolonged hospitalization from 06/24 until 08/01 for multiple conditions including ongoing hallucinations (which have fluctuated since March 2023 or more) with repeat evaluation for meningitis that was negative and so patient was continued on fluconazole for prophylaxis, uncontrolled diabetes, anemia. Patient reports she has been having increased abdominal pain and rectal pressure for the past week and believes last time she may have moved her bowels was couple of days ago but only a small amount which was hard and had blood and appeared dark. She is a poor historian but denies fevers, chills, cough, congestion, vomiting. ROS: See above HPI for pertinent positives & negatives. A total of 10 systems reviewed and were otherwise negative. VITALS:See Below PHYSICAL EXAMINATION: GENERAL: Awake, alert, uncomfortable-appearing, in no distress HENT: Normocephalic, atraumatic. Oropharynx with dry mucous membranes and otherwise unremarkable. EYES: Normal conjunctiva. Sclera non-icteric. NECK: Supple. No nuchal rigidity. FROM. No JVD. RESPIRATORY: Clear to auscultation. CARDIAC: Regular rate, normal rhythm. Extremities warm and well perfused. Pulses equal. ABDOMEN: Soft, non-distended. No tenderness to palpation. No rebound or guarding. No masses. RECTAL: Hard and rectal stool ball protruding through the anus. Scant blood noted from likely straining. No gross hemorrhage. There is no melena. Stool is brown. MUSCULOSKELETAL: Chest examination reveals no tenderness. The back is symmetrical on inspection without obvious abnormality. There is no CVA tenderness to palpation. No joint edema. LOWER EXTREMITIES: Calves are equal size bilaterally and non-tender. No edema. No discoloration. NEURO: Moving all extremities equally and hospital bed without focal extremity weakness. DTRs wnl. No clonus. SKIN: No rash or jaundice noted. Doe Aguirre MD 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[facility] [place] [facility] [place] for 4 mon summer [address] GONZALEZ & INFECTIOUS DISEASE IBS (irritable bowel syndrome) Stable History of COVID-12 January 2021 > [facility], not hospitalized, fever, ear pain- did give infusion in ER No current issues Dyslipidemia Cirrhosis of liver FOLLOWS W/ [facility] Stable currently Depression Anxiety Diabetes mellitus, type 2 IDDM Glucose fluctuates - since Covid in December 2020 On insulin pump Follows with endocrinology Insomnia Kidney stones FOLLOWS WITH DR FUCHS No current issues - monitoring currently Hypertension Hydronephrosis due to obstruction of ureter Surgical History Hx of left cataract extraction History of endoscopy Status post Dupuytren's fasciectomy Hx of surgical amputation of finger left pinky History of cystoscopy WITH STENTS AND STONE BASKETING History of lithotripsy History of total hip arthroplasty LEFT Hx of colonoscopy Hx of wisdom tooth extraction History of tonsillectomy and adenoidectomy Hx of total hysterectomy GERALD WITH BSO Hx of tubal ligation Hx laparoscopic cholecystectomy Family History Father , age 75 Family history of diabetes mellitus Coronary heart disease Brother Family history of diabetes mellitus Mother , age 67 Family history of diabetes mellitus Heart disease Hypertension Myocardial infarction Grandfather (Paternal) Family history of diabetes mellitus Grandmother (Paternal) Family history of diabetes mellitus Denies family history of Ovarian cancer Prostate cancer Breast cancer Colorectal cancer Social History Smoking Status: Never smoker Tobacco Type: Cigarettes Second Hand Exposure: No; Do You Dip or Chew Tobacco: No; Hx Alcohol Use: No Hx Substance Use: No Preferred Language: Hebrew Communication Ability: Effective Visual Impairment: No Limitations Hearing Ability: Normal Assistant Football 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 Required: No Beliefs That Will Affect Care: None marital status: Current Living Situation: Alone Current Living Situation Comment: alone current occupational status: employed and disabled current occupation: [employer] does have disability for diabetes- insurance helps How many Children do You have: 2 Feels Safe at Home: No Is there a partner from a previous relationship who is making you feel unsafe now?: No Childhood Exposure to Second-Hand Smoke: No Diet: diabetic caffeine: Yes during the past year weight has: increased > 10 lbs Dental Care, Regularly: No Physical Activity Frequency: Does not Exercise Seatbelt Use: always Sunscreen Use: Yes Gender Identity: Female Assistive Devices: None Allergies Allergies Allergy/AdvReac Type Severity Reaction Status Date / Time Penicillins Allergy Intermediate Hives Verified 08/10/23 16:39 atorvastatin Allergy Unknown CAN'T Verified 08/10/23 16:39 REMEMBER/? RAISED LIVER LEVELS gemfibrozil [From Lopid] Allergy Unknown CAN'T Verified 08/10/23 16:39 REMEMBER/ ? RAISED LIVER LEVELS rosuvastatin AdvReac Intermediate Muscle Pain Verified 08/10/23 16:39 acetaminophen [From Tylenol] AdvReac Unknown CAN NOT Verified 08/10/23 16:39 TAKE D/T LIVER ISSUES ibuprofen AdvReac Unknown liver Verified 08/10/23 16:39 issues Home Meds Home Medications Medication Instructions Recorded Confirmed fluconazole 200 mg tablet 400 mg PO DAILY 08/10/23 08/10/23 quetiapine 25 mg tablet See Rx Instructions .Route .COMPLEX 08/10/23 08/10/23 venlafaxine 75 mg capsule,extended 75 mg PO HS 08/10/23 08/10/23 release 24 hr Previous Rx's Medication Instructions Recorded Contour Next Test Strips (blood #300 ea 08/01/23 sugar diagnostic) Saccharomyces boulardii 250 mg 250 mg PO BID #20 caps 08/01/23 capsule (Florastor) apixaban 5 mg tablet (Eliquis) 5 mg PO BID #60 tabs 08/01/23 betamethasone dipropionate 0.05 % 1 applic topical TID PRN skin 08/01/23 lotion irritation #60 mL cetirizine 10 mg capsule (Zyrtec) 10 mg PO DAILY allergy symptoms 08/01/23 #90 caps cholecalciferol (vitamin D3) 50 2,000 unit PO DAILY #90 caps 08/01/23 mcg (2,000 unit) capsule diphenhydramine HCl 25 mg capsule 25 mg PO TID PRN Allergy Symptoms 08/01/23 (Allergy (diphenhydramine)) #30 caps fluticasone propionate 50 1 spray intranasal DAILY #16 grams 08/01/23 mcg/actuation nasal spray,suspension (Flonase Allergy Relief) furosemide 20 mg tablet 20 mg PO QAM PRN volume overload 08/01/23 or weight gain #30 tabs insulin glargine 100 unit/mL (3 15 unit (0.15 mL) subcut AMPM #12 08/01/23 mL) subcutaneous pen (Lantus mL Solostar U-100 Insulin) lidocaine 5 % topical patch 1 patch transdermal QAM #30 ea 08/01/23 magnesium chloride 64 mg 64 mg PO BID #60 tabs 08/01/23 (magnesium chloride) tablet,delayed release (Mag 64) meclizine 12.5 mg tablet 12.5 mg PO QAM #30 tabs 08/01/23 metoprolol succinate 25 mg 25 mg PO BID #60 tabs 08/01/23 tablet,extended release 24 hr multivitamin 1 tab PO QAM #30 tabs 08/01/23 pantoprazole 40 mg tablet,delayed 40 mg PO BID #180 tabs 08/01/23 release potassium chloride 20 mEq 20 meq PO QAM #90 tabs 08/01/23 tablet,extended release promethazine 12.5 mg tablet 12.5 mg PO TID PRN nausea and 08/01/23 vomiting #30 tabs sucralfate 100 mg/mL oral 10 ml PO QID #420 mL 08/01/23 suspension (Carafate) venlafaxine 150 mg 150 mg PO HS #30 caps 08/01/23 capsule,extended release 24 hr Results & Data (ED) Vital Signs Vital Signs - 24 hr 08/10/23 12:31 08/10/23 15:09 08/10/23 15:25 Temperature 36.8 C Temperature Source Temporal Artery Scan Pulse Rate 70 65 Pulse Rate [Left Finger] 65 Respiratory Rate 20 14 Respiratory Effort / Characteristics Non-Labored Spontaneous Respiratory Depth Normal Respiratory Pattern Regular Blood Pressure 106/73 Blood Pressure [Right Arm] 120/79 Blood Pressure Mean 84 Blood Pressure Mean [Right Arm] 92 Pulse Oximetry 100 100 Oxygen Delivery Method Room Air Sepsis Recent Fever Within 48 Hours No Sepsis New/Unexplained Change in Mental Status No Sepsis Action Taken by Nursing No Action Required Laboratory Data Attestation: I reviewed the patient's lab results. 08/10/23 12:58 08/10/23 12:58 Lab Results 08/10/23 08/10/23 Range/Units 12:58 15:40 WBC 6.62 (4.8-10.8) K/ul RBC 2.79 L (4.20-5.40) M/uL Hgb 7.6 L (12.0-16.0) g/dl Hct 24.2 L (37.0-47.0) % MCV 86.7 (80.0-100.0) fL MCH 27.2 (25.0-34.0) pg MCHC 31.4 L (32.0-36.0) g/dL RDW Std Deviation 51.8 H (36.4-46.3) fL RDW Coeff of Jun 16.3 H (11.5-14.5) % Plt Count 213 (130-400) K/uL MPV 11.4 (9.4-12.4) fL PT 14.6 H (9.0-12.0) Seconds INR 1.4 H (0.9-1.1) APTT 33.0 H (21.0-31.0) Seconds PTT Ratio 1.2 Sodium 138 (136-145) mmol/L Potassium 4.2 (3.5-5.1) mmol/L Chloride 109 H (98-107) mmol/L Carbon Dioxide 20 L (21-32) mmol/L Anion Gap 9 (3-11) BUN 33 H (6-23) mg/dl Creatinine 1.40 H (0.6-1.2) mg/dl Est Cr Clr Drug Dosing 31.8 ml/min Est GFR ( Amer) 45.9 ml/min Est GFR (Non-Af Amer) 39.6 ml/min BUN/Creatinine Ratio 23.6 H (10-20) Glucose 215 H (70-99(Fasting)) mg/dl Calcium 9.7 (8.6-10.3) mg/dl Total Bilirubin 0.3 (0.2-1.0) mg/dl AST 27 (13-39) U/L ALT 12 (7-52) U/L Alkaline Phosphatase 231 H (34-104) U/L Troponin I High Sens 22.8 H 21.7 H (0-14) pg/ml Total Protein 6.5 (6.0-8.3) gm/dl Albumin 3.6 (3.4-5.0) gm/dl Globulin 2.9 (2.5-4.0) gm/dl Albumin/Globulin Ratio 1.2 (0.9-2) Blood Type B Positive Antibody Screen NEGATIVE Administered Medications Apixaban (Apixaban 5 Mg Tablet) 5 mg PO BID HALEY Stop: 09/09/23 20:59 Last Admin: 08/10/23 21:26 Dose: 5 mg Documented By: FUAD Insulin Aspart (Insulin Aspart Per Unit Charge) 0 units SC ACHS HALEY Stop: 09/09/23 20:59 Last Admin: 08/10/23 21:27 Dose: 1 units Documented By: FUAD Co-signed By: TERRENCE Insulin Glargine (Lantus Per Unit Charge) 10 units SQ BID HALEY Stop: 09/09/23 20:59 Last Admin: 08/10/23 21:25 Dose: 10 units Documented By: FUAD Co-signed By: TERRENCE Metoprolol Succinate (Metoprolol Succ 25mg Ext Rel Tab) 25 mg PO BID HALEY Stop: 09/09/23 20:59 Last Admin: 08/10/23 21:26 Dose: 25 mg Documented By: FUAD Pantoprazole Sodium (Pantoprazole 40 Mg Tab) 40 mg PO BID HALEY Stop: 09/09/23 20:59 Last Admin: 08/10/23 21:26 Dose: 40 mg Documented By: FUAD Quetiapine Fumarate (Quetiapine Fumarate 25 Mg Tablet) 75 mg PO HS HALEY Stop: 09/09/23 20:59 Last Admin: 08/10/23 21:26 Dose: 75 mg Documented By: FUAD Venlafaxine HCl (Venlafaxine Hcl Xr 150 Mg Capxr) 150 mg PO HS HALEY Stop: 09/09/23 20:59 Last Admin: 08/10/23 21:26 Dose: 150 mg Documented By: FUAD Discontinued Medications Sodium Chloride (Nss) 500 mls @ 999 mls/hr IV .Q31M ONE Stop: 08/10/23 17:08 Last Infusion: 08/10/23 19:11 Dose: Infused Documented By: Admin: 08/10/23 18:24 Dose: 999 mls/hr Documented By: Ondansetron HCl (Ondansetron Inj 2 Mg/Ml 2 Ml Vial) 4 mg IV NOW STA Stop: 08/10/23 16:39 Last Admin: 08/10/23 16:52 Dose: 4 mg Documented By: Discharge Plan Visit Data Chief Complaint: Constipation Stated Complaint: FELL, CONSTIPATION, BLACK STOOLE/BLOOD, PAINFUL ED Provider: Doe Aguirre Discharge Problem: Fecal impaction in rectum, Constipation, Generalized weakness, Physical deconditioning Patient Disposition: Admitted As Inpatient Discharge Instructions Interventions: ED Discharge Assessment Last Done: 08/10/23 20:22 Discharge Problem: Constipation Qualifiers: Constipation type: unspecified constipation type Qualified Code(s): K59.00 - Constipation, unspecified
--- NOTE | 2023-08-10 18:35 | History & Physical Report ---
Date of Service August 10, 2023 Assessment & Plan (1) Paroxysmal A-fib: (2) Anxiety: (3) Diabetes mellitus type 2, insulin dependent: (4) Cryptococcal meningitis: (5) Hypertension: (6) Depression: (7) Cirrhosis of liver: (8) Gastritis: (9) Anemia: Plan Pt is a 63 yo female with a past medical history of anxiety/depression, a fib, DMT2 on insulin, HTN, liver cirrhosis, hx cryptococcal meningitis, hx DVT who presents to the hospital on 08/10/23 for constipation and placement concerns. Deconditioning - pt coming from a facility, does not want to go back to same facility - will get PT/OT evals Constipation - enema in ER resulted in passing large amount of stool and pt felt much better after - will start miralax daily, recommended continuation of miralax on discharge for chronic constipation - if pain worsens, low threshold for imaging considering previous SBO this year DMT2, insulin dependent - last HA1c 02/15 was 10.8%, will repeat in am - will do 10 units BID lantus with SSI CF 35, CR 12 - diet restarted, DMT2 Anemia, - Hgb 7.6 today - suspect anemia of chronic disease vs acute or iron deficiency at this time, as hgb has been 7-8 for few months now - will get ferritin and iron studies in the am, consider initiating po iron vs IV - daily CBCs HTN - continue home metoprolol GERD - continue home pantoprazole A fib, paroxysmal - continue home eliquis Depression Anxiety - continue home venlafaxine Liver cirrhosis - last noted on abd CT 06/18 - limit hepatotoxic agents Hx recurrent cryptococcal meningitis, hallucinations - pt feeling well, no URI symptoms or headache this admission, afebrile, WBC count normal - pt not concerning for recurrence at this time - for related hallucinations, continue home Seroquel VTE proph: Home eliquis Diet: DMT2 Dispo: Medsurg History of Present Illness Chief Complaint: Constipation Primary Care Provider: Leia Doyle DO Pt is a 63 yo female with a past medical history of anxiety/depression, a fib, DMT2 on insulin, HTN, liver cirrhosis, hx cryptococcal meningitis, hx DVT who presents to the hospital on 08/10/23 for constipation and placement concerns. Pt states that she started having abdominal pain about 2 days ago, cramping and diffuse, which worsened over the past few days. She states that she was able to pass some stool yesterday with some bright red blood. She states that she had an SBO earlier this year and the pain felt very similar. She has had multiple abdom inal surgeries, including cholecystectomy and hysterectomy. She received a enema in the ER today and passed a softball size amount of stool and was noted to have some abrasions around the anus. She states she feels much better now, mostly having abdominal soreness and some anal burning. She has had issues with constipation before and takes fiber gummies daily. Some nausea but no vomiting, was able to eat a [employer] cheeseburger for lunch without issue. She comes from [facility] and [facility] and pt state she does not want to go back, wants to go to a different facility from here. Allergies Allergy/AdvReac Type Severity Reaction Status Date / Time Penicillins Allergy Intermediate Hives Verified 08/10/23 16:39 atorvastatin Allergy Unknown CAN'T Verified 08/10/23 16:39 REMEMBER/? RAISED LIVER LEVELS gemfibrozil [From Lopid] Allergy Unknown CAN'T Verified 08/10/23 16:39 REMEMBER/ ? RAISED LIVER LEVELS rosuvastatin AdvReac Intermediate Muscle Pain Verified 08/10/23 16:39 acetaminophen [From Tylenol] AdvReac Unknown CAN NOT Verified 08/10/23 16:39 TAKE D/T LIVER ISSUES ibuprofen AdvReac Unknown liver Verified 08/10/23 16:39 issues Home Medications Medication Instructions Recorded Confirmed Type Contour Next Test Strips (blood #300 ea 08/01/23 08/02/23 Rx sugar diagnostic) Saccharomyces boulardii 250 mg 250 mg PO BID #20 caps 08/01/23 08/10/23 Rx capsule (Florastor) apixaban 5 mg tablet (Eliquis) 5 mg PO BID #60 tabs 08/01/23 08/10/23 Rx betamethasone dipropionate 0.05 % 1 applic topical TID PRN skin 08/01/23 08/10/23 Rx lotion irritation #60 mL cetirizine 10 mg capsule (Zyrtec) 10 mg PO DAILY allergy symptoms 08/01/23 08/10/23 Rx #90 caps cholecalciferol (vitamin D3) 50 2,000 unit PO DAILY #90 caps 08/01/23 08/10/23 Rx mcg (2,000 unit) capsule diphenhydramine HCl 25 mg capsule 25 mg PO TID PRN Allergy Symptoms 08/01/23 08/10/23 Rx (Allergy (diphenhydramine)) #30 caps fluticasone propionate 50 1 spray intranasal DAILY #16 grams 08/01/23 08/10/23 Rx mcg/actuation nasal spray,suspension (Flonase Allergy Relief) furosemide 20 mg tablet 20 mg PO QAM PRN volume overload 08/01/23 08/10/23 Rx or weight gain #30 tabs insulin glargine 100 unit/mL (3 15 unit (0.15 mL) subcut AMPM #12 08/01/23 08/10/23 Rx mL) subcutaneous pen (Lantus mL Solostar U-100 Insulin) lidocaine 5 % topical patch 1 patch transdermal QAM #30 ea 08/01/23 08/10/23 Rx magnesium chloride 64 mg 64 mg PO BID #60 tabs 08/01/23 08/10/23 Rx (magnesium chloride) tablet,delayed release (Mag 64) meclizine 12.5 mg tablet 12.5 mg PO QAM #30 tabs 08/01/23 08/10/23 Rx metoprolol succinate 25 mg 25 mg PO BID #60 tabs 08/01/23 08/10/23 Rx tablet,extended release 24 hr multivitamin 1 tab PO QAM #30 tabs 08/01/23 08/10/23 Rx pantoprazole 40 mg tablet,delayed 40 mg PO BID #180 tabs 08/01/23 08/10/23 Rx release potassium chloride 20 mEq 20 meq PO QAM #90 tabs 08/01/23 08/10/23 Rx tablet,extended release promethazine 12.5 mg tablet 12.5 mg PO TID PRN nausea and 08/01/23 08/10/23 Rx vomiting #30 tabs sucralfate 100 mg/mL oral 10 ml PO QID #420 mL 08/01/23 08/10/23 Rx suspension (Carafate) venlafaxine 150 mg 150 mg PO HS #30 caps 08/01/23 08/10/23 Rx capsule,extended release 24 hr fluconazole 200 mg tablet 400 mg PO DAILY 08/10/23 08/10/23 History quetiapine 25 mg tablet See Rx Instructions .Route .COMPLEX 08/10/23 08/10/23 History venlafaxine 75 mg capsule,extended 75 mg PO HS 08/10/23 08/10/23 History release 24 hr Past Med/Surg History Medical History (Updated 08/11/23 @ 08:[address]) Dupuytren contracture History of anesthesia reaction with more recent surgeries seems it is harder to wake up History of atrial fibrillation dx while hospitalized summer 2021 History of pulmonary embolus (PE) dx during hospitalization summer 2021 History of DVT (deep vein thrombosis) dx during hospitalization summer 2021 Acid reflux History of gastric ulcer summer 2021 Vertigo 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[facility] & [place] for 4 mon summer [address] GONZALEZ & INFECTIOUS DISEASE IBS (irritable bowel syndrome) Stable History of COVID-12 January 2021 > [facility], not hospitalized, fever, ear pain- did give infusion in ER No current issues Dyslipidemia Cirrhosis of liver FOLLOWS W/ [facility] Stable currently Depression Anxiety Diabetes mellitus, type 2 IDDM Glucose fluctuates - since Covid in December 2020 Follows with endocrinology Insomnia Kidney stones FOLLOWS WITH DR FUCHS No current issues - monitoring currently Hypertension Hydronephrosis due to obstruction of ureter Surgical History Hx of left cataract extraction History of endoscopy Status post Dupuytren's fasciectomy Hx of surgical amputation of finger left pinky History of cystoscopy WITH STENTS AND STONE BASKETING History of lithotripsy History of total hip arthroplasty LEFT Hx of colonoscopy Hx of wisdom tooth extraction History of tonsillectomy and adenoidectomy Hx of total hysterectomy GERALD WITH BSO Hx of tubal ligation Hx laparoscopic cholecystectomy Family History Father , age 75 Family history of diabetes mellitus Coronary heart disease Brother Family history of diabetes mellitus Mother , age 67 Family history of diabetes mellitus Heart disease Hypertension Myocardial infarction Grandfather (Paternal) Family history of diabetes mellitus Grandmother (Paternal) Family history of diabetes mellitus Denies family history of Ovarian cancer Prostate cancer Breast cancer Colorectal cancer Social History Smoking Status: Never smoker Tobacco Type: Cigarettes Second Hand Exposure: No; Do You Dip or Chew Tobacco: No; Hx Alcohol Use: No Hx Substance Use: No Preferred Language: [place]al[place] Communication Ability: Effective Visual Impairment: No Limitations Hearing Ability: Normal Exit Booth Agent Required: No Beliefs That Will Affect Care: None marital status: Current Living Situation: Care Home Current Living Situation Comment: alone current occupational status: employed and disabled current occupation: [employer]-pt does have disability for diabetes- insurance helps How many Children do You have: 2 Feels Safe at Home: No Is there a partner from a previous relationship who is making you feel unsafe now?: No Childhood Exposure to Second-Hand Smoke: No Diet: diabetic caffeine: Yes during the past year weight has: increased > 10 lbs Dental Care, Regularly: No Physical Activity Frequency: Does not Exercise Seatbelt Use: always Sunscreen Use: Yes Gender Identity: Female Assistive Devices: Glasses Review of Systems Review of Systems: Constitutional: denies fever, chills, Cardio: denies chest pain, palpitations Resp: denies shortness of breath, Physical Exam Physical Exam: General: Alert, no acute distress, HEENT: Normocephalic, moist oral mucosa, Cardio: Regular rate and rhythm, Resp: Lungs clear to auscultation b/l, no wheezes or rhonchi, GI: Firm but nontender, nondistended, bowel sounds active but quiet Skin: Warm, pink, dry, Psych: Mood-affect congruence. Results & Data Results & Data Vital Signs (Past 12 Hours) Vital Signs Temp Pulse Pulse Resp BP BP Pulse Ox 08/10/23 15:25 65 08/10/23 15:09 65 14 120/79 100 08/10/23 12:31 36.8 C 70 20 106/73 100 O2 Del Method 08/10/23 15:25 08/10/23 15:09 08/10/23 12:31 Room Air Supervising Physician Co-Signing Physician Notes I personally saw and examined the patient. I independently reviewed the labs, EKG, problem list, medication list, past medical history and family history. I verified all fish points and agree with Dr Michelle Valentino PA-C with the following exceptions and/or additions: 63 year old female with significant history of cryptococcal meningitis presents to the ER with cramping and abdominal pain progressively worse over the last 2 days. No nausea, vomiting. Notes constipation. O/E A&Ox3, HS RRR, no murmurs, Chest CTAB, Mild suprapubic tenderness (much improved since enema in the ER), no rebound or guarding A/P Failure to thrive - pt and family requesting placement in a different facility as found in urine and stool at current facility. PT/OT. Constipation - relieved with enema given in the ER. Still with some residual mild abdominal pain. However in absence of WBC and significant improvement with enema recommend serial abdominal exams rather than further imaging at this time. Resident Activity Tracking Resident Involvement: Resident Care Provided Care Provided: Adult Hospital Medicine (5) Hypertension Hypertension type: essential hypertension Qualified Code(s): I10 - Essential (primary) hypertension (6) Depression Depression Type: unspecified Qualified Code(s): F32.9 - Major depressive disorder, single episode, unspecified (9) Anemia Anemia type: other cause Other causes of anemia: acute posthemorrhagic Qualified Code(s): D62 - Acute posthemorrhagic anemia
[2023-08-10] MEDS ORDERED: DEXTROSE 50% 50 ML SYRINGE IV PRN (20:48)
[2023-08-10] MEDS ORDERED: PROMETHAZINE HCL 25 MG TAB PO PRN (20:48)
[2023-08-10] MEDS ORDERED: GLUCOSE 40% GEL 15 GM TUBE PO PRN (20:48)
[2023-08-10] MEDS ORDERED: CARBOHYDRATES FOR HYPOGLYCEMIA PO PRN (20:48)
[2023-08-10] MEDS ORDERED: ONDANSETRON INJ 2 MG/ML 2 ML VIAL IV PRN (20:48)
[2023-08-10] MEDS ORDERED: GLUCAGON FOR INJ 1 MG VIAL SQ PRN (20:48)
[2023-08-10] MEDS ORDERED: GLUCOSE 10 TAB/TUBE PO PRN (20:48)
[2023-08-10] MEDS: LANTUS PER UNIT CHARGE SQ SCH (21:25)
[2023-08-10] MEDS: METOPROLOL SUCC 25MG EXT REL TAB PO SCH (21:26)
[2023-08-10] MEDS: APIXABAN 5 MG TABLET PO SCH (21:26)
[2023-08-10] MEDS: QUEtiapine FUMARATE 25 MG TABLET PO SCH (21:26)
[2023-08-10] MEDS: VENLAFAXINE HCL XR 150 MG CAPXR PO SCH (21:26)
[2023-08-10] MEDS: PANTOprazole 40 MG TAB PO SCH (21:26)
[2023-08-10] MEDS: INSULIN ASPART PER UNIT CHARGE SC SCH (21:27)
--- NOTE | 2023-08-10 22:58 | Billing Data ---
Date of Service August 10, 2023 Coding Level of Care Code 28968 INT INP/OBS CARE
[2023-08-11 07:40] LABS: Basophils # (auto) 0.04 K/uL (0.00-0.20); Basophils % (auto) 0.8 %; Eosinophils # (auto) 0.18 K/uL (0.00-0.50); Eosinophils % (auto) 3.6 %; Hemoglobin 7.2 g/dl (12.0-16.0); Immature Granulocytes # (auto) 0.01 K/uL (0.01-0.20); Immature Granulocytes % (auto) 0.2 %; Lymphocytes % (auto) 41.9 %; Mean Corpuscular Hemoglobin 27.3 pg (25.0-34.0); Mean Corpuscular Hgb Conc 31.3 g/dL (32.0-36.0); Mean Corpuscular Volume 87.1 fL (80.0-100.0); Mean Platelet Volume 11.2 fL (9.4-12.4); Monocytes # (auto) 0.43 K/uL (0.11-0.59); Monocytes % (auto) 8.6 %; Neutrophils # (auto) 2.25 K/uL (1.40-6.50); Neutrophils % (auto) 44.9 %; Platelet Count 185 K/uL (130-400); RDW Coefficient of Variation 16.2 % (11.5-14.5); RDW Standard Deviation 51.8 fL (36.4-46.3); Red Blood Count 2.64 M/uL (4.20-5.40); White Blood Count 5.01 K/ul (4.8-10.8)
[2023-08-11 07:59] LABS: Albumin Globulin Ratio 1.3 (0.9-2); Albumin Level 3.4 gm/dl (3.4-5.0); BUN Creatinine Ratio 24.8 (10-20); Bilirubin,Total 0.3 mg/dl (0.2-1.0); Calcium 9.5 mg/dl (8.6-10.3); Creatinine Clr Calc Pharmacy 35.6 ml/min; Est GFR (African American) 52.6 ml/min; Est GFR (Non-African American) 45.4 ml/min; Globulin 2.6 gm/dl (2.5-4.0); Magnesium 1.7 mg/dl (1.7-2.4); Potassium 4.2 mmol/L (3.5-5.1)
[2023-08-11 08:02] LABS: RBC Morphology Unremarkable
[2023-08-11 08:07] LABS: Estimated Average Glucose 140 mg/dl; Hemoglobin A1C 6.5 % (4.5-5.6)
[2023-08-11 08:18] LABS: Ferritin 15.4 ng/ml (8-388)
--- NOTE | 2023-08-11 08:20 | Hospitalist Progress Note ---
Date of Service August 11, 2023 Assessment & Plan (1) Generalized weakness: (2) Fecal impaction in rectum: (3) Paroxysmal A-fib: (4) Anxiety: (5) Diabetes mellitus type 2, insulin dependent: (6) Cryptococcal meningitis: (7) Hypertension: (8) Depression: (9) Cirrhosis of liver: (10) Gastritis: (11) Anemia: (12) Constipation: Plan Pt is a 63 yo female with a past medical history of anxiety/depression, a fib, DMT2 on insulin, HTN, liver cirrhosis, hx cryptococcal meningitis, hx DVT who presented to the hospital after recent discharge on 08/01 for UTI/hallucination for complaints of increased abdominal pain/rectal discomfort/cramping x 2 days without BM and wanting placement for weakness as found in urine/stool at current facility at [facility] Deconditioning/Fecal impaction/Constipation Admit med/surg -Noting to have completed treatment for UTI 08/02 w/ bactrim -patient reported having fall prior to admission, has some bruising - will obtain pelvis/sacrum xrays to evaluate for fracture. ?if fall/possible fracture contributing to her constipation - continue miralax daily - would continue @ dc (of note, hx cirrhosis listed- ?lactulose if chronic issues w/ constipation could be considered) - Repeat UA ordered to ensure no further ongoing UTI given lower abdominal discomfort on admission, however noting no leukocytosis/fever - Consider KUB if any further abdominal pain issues reported to eval ileus vs obs - PT/OT evals pending, patient wanting rehab/SNF at discharge, CM to follow Fall- reported fall to bottom prior to admission (RN reported was found at home covered in feces). Denied LOC, answering questions appropriately - bruising to sacrum, imaging to be obtained to r/o fracture as above w/ pelvis/sacrum xrays - pain control w/ tylenol (2gm max daily given hx cirrhosis) -PT/OT evals BRBPR/Anemia - reported w/ BM after initial constipation/enema in ER w/ large amount of stool passing and reported feeling much better - ?hemorrhoidal vs other-- reporting bright red blood per rectum on toilet paper over the past several weeks - patient w/ chronic anemia (hgb in 7-8 for past several months) - On eliquis for hx paroxysmal afib/also DVT last summer w/ her meningitis and this will be continued for now Continue PPI BID - fecal occult ordered for completeness, does have some external hemorrhoids on examination, not currently bleeding - continue bowel regimen as above - check iron studies -> Iron studies w/ low iron 23, unsaturated IBC elevated 369, trans % sat 6, ferritin 15.4. Will check B12/folate in AM given normal MCV (87) for completeness (noting B12 was 129 in january) -> Venofer IV while inpatient ordered and will continue daily while inpatient CBC in AM/sooner if any bleeding occurs, consider GI consult -- she does note she had one done in the past DMT2, insulin dependent - last HA1c 02/15 was 10.8%. BSG 149 on POC on arrival - home regimen listed as glargine 15u BID, however suspect given repeat A1c 6.5 likely needing decreased needs at discharge - continue lantus 10 u BID for now, DM diet Monitor insulin needs/adjustment at dc as needed HTN - continue home metoprolol - home lasix prn on hold GERD - continue home pantoprazole PO BID for now. consider GI consult pending repeat CBC/monitoring for any bleeding. Venofer as above. If stable can arrange outpt f/u GI A fib, paroxysmal - continue home eliquis for now - keep k/mag replete, checking fecal occult Depression/Anxiety - continue home venlafaxine however patient taking 150mg + 75mg HS and was adjusted for such tonight - mood stable at present Liver cirrhosis - last noted on abd CT 06/18 - limit hepatotoxic agents - consider lactulose if issues w/ constipation Hx recurrent cryptococcal meningitis, hallucinations - pt feeling well, no URI symptoms or headache this admission, afebrile, WBC count normal - pt not concerning for recurrence at this time - for related hallucinations, continue home Seroquel - also to be on fluconazole daily prophylaxis, added continued inpatient stay, wanting rehab/SNF ([facility] per patient). CM to follow Admission and Anticipated Discharge Date Admission Date: August 10, 2023 Supervising Physician Co-Signing Physician Notes The patient was not seen by me. The chart was reviewed. Case discussed with ETIENNE Rodriguez. Agree with assessment and plan Subjective Eval this morning, resting in bed, no acute distress. Moved her bowels after enema w/ blood, reports ongoing blood on toilet paper w/ whiping over the past couple of weeks. Issues w/ constipation. On eliquis for hx paroysxmal afib and dvt in her leg last year w/ her meningitis. Discussed checking fecal occult (does have some external hemorrhoids on exam, not actively bleeding), possible need to hold eliquis. Also discussed IV iron, she had been on oral prior/issues w/ constipation and discussed will provide while inpatient. Reports has had c-scope in the past, many years ago. She is wanting to go to [facility], awaiting therapy evaluations. Of note when examining her back, noting bruise to sacrum, patient does endorse falling prior to admission. Will obtain imaging to ensure no fracture. She denies recent fever/chills, chest pain, shortness of breath. Of note, she takes effexor 150+75mg at night -- will adjust. Questions/concerns addressed at this time. Physical Exam 2 Physical Exam: General: WD/WN female resting in bed, NAD (no pain reported, but pain to sacrum w/ repositioning) HEENT: head atraumatic, normocephalic, mmm, trachea midline Resp: CTA, no w/c/r, on room air CV: RRR, no significant mrg, no pitting edema/calf tenderness GI: +BS, soft/NT recal: 2-3 external, nonbleeding hemorrhoids noted : no aviles MSK/Neuro: no focal deficit, no slurred speech/facial droop mild bruising/ecchymosis to sacral region, tender to palpation Psych: alert/oriented x 3, cooperative with exam Results & Data Results & Data Vital Signs (Past 12 Hours) Vital Signs Temp Pulse Resp BP Pulse Ox O2 Del Method 08/11/23 07:26 36.7 C 62 16 110/68 99 Room Air 08/10/23 21:00 36.7 C 74 18 133/83 100 Room Air 08/10/23 20:22 Room Air Laboratory Results 08/11/23 07:18 08/11/23 07:18 PG Care Time/CCT Total # of Minutes Spent Total Time Spent with Patient: Total time spent is greater than 50% in coordination of care (as documented) at patient's floor/unit and/or counseling patient: Coding Level of Care Code 82362 SUB INP/OBS CARE 3/50MIN Diagnoses Generalized weakness R53.1 Fecal impaction in rectum K56.41 Paroxysmal A-fib I48.0 Anxiety F41.9 Diabetes mellitus type 2, insulin dependent E11.9; Z79.4 Cryptococcal meningitis B45.1 Essential hypertension I10 Hypertension type: essential hypertension Depression, unspecified depression type F32.9 Depression Type: unspecified Cirrhosis of liver K74.60 Gastritis K29.70 Anemia D62 Anemia type: other cause Other causes of anemia: acute posthemorrhagic Constipation K59.00 Constipation type: unspecified constipation type (7) Hypertension Hypertension type: essential hypertension Qualified Code(s): I10 - Essential (primary) hypertension (8) Depression Depression Type: unspecified Qualified Code(s): F32.9 - Major depressive disorder, single episode, unspecified (11) Anemia Anemia type: other cause Other causes of anemia: acute posthemorrhagic Qualified Code(s): D62 - Acute posthemorrhagic anemia (12) Constipation Constipation type: unspecified constipation type Qualified Code(s): K59.00 - Constipation, unspecified
[2023-08-11] MEDS ORDERED: IRON SUCROSE 300 MG in SODIUM CHLORIDE 0.9% 250 ML IV ONE (08:27)
[2023-08-11] MEDS ORDERED: MAGNESIUM SULFATE / D5W 1 GM/100 ML BAG IV ONE (08:29)
[2023-08-11] MEDS: INSULIN ASPART PER UNIT CHARGE SC SCH ×4 (08:48→20:16)
[2023-08-11] MEDS: METOPROLOL SUCC 25MG EXT REL TAB PO SCH ×2 (08:52→21:18)
[2023-08-11] MEDS: CETIRIZINE HCL 10 MG TABLET PO SCH (08:52)
[2023-08-11] MEDS: APIXABAN 5 MG TABLET PO SCH (08:52)
[2023-08-11] MEDS: QUEtiapine FUMARATE 25 MG TABLET PO SCH ×2 (08:52→21:19)
[2023-08-11] MEDS: PANTOprazole 40 MG TAB PO SCH ×2 (08:52→21:19)
[2023-08-11] MEDS: POLYETHYLENE (MIRALAX) 17 GM PACK PO SCH (08:57)
[2023-08-11] MEDS: LANTUS PER UNIT CHARGE SQ SCH ×2 (08:57→21:19)
[2023-08-11] MEDS: MAGNESIUM OXIDE 400 MG TAB PO SCH ×2 (10:25→21:18)
[2023-08-11] MEDS ORDERED: oxyCODONE HCL IR 5 MG TAB (IMMEDIATE RELEASE) PO PRN (10:35)
[2023-08-11] MEDS: ACETAMINOPHEN 500 MG TAB PO PRN ×2 (10:55→21:18)
--- NOTE | 2023-08-11 13:18 | XRay Report ---
XR sacrum coccyx min 2V CLINICAL HISTORY: fall, pain, eval fx COMPARISON: CT of the abdomen and pelvis June 15, 2023. FINDINGS: Left hip arthroplasty is incidentally noted. The sacroiliac joints are intact. No acute fr acture is identified within visualized portions of the pelvis. There is subtle lucency and cortical i rregularity of the anterior cortex of a sacral vertebral body, likely S3. IMPRESSION: Subtle lucency and cortical irregularity of a sacral vertebral body, likely S3. This may be artifactual however an acute nondisplaced fracture cannot be excluded. ACT 112: Negative or not required by law. Electronically signed by: Godwin Burden M.D. 08/11/2023 1:15 PM
[2023-08-11] MEDS: FLUCONAZOLE 100 MG TAB PO SCH (14:50)
--- NOTE | 2023-08-11 16:06 | XRay Report ---
XR hip ELVIE 2v w pelvis CLINICAL HISTORY: fall, low back pain. Pelvic and hip pain. COMPARISON STUDY: None. FINDINGS: The sacrum is now well visualized due to overlying bowel gas. Otherwise, no fracture or dis location within the pelvis or hips. There is a left total hip arthroplasty. The hardware appears inta ct. Mild degenerative changes within the right hip. No abnormal periprosthetic lucency. IMPRESSION: No acute fracture or dislocation within the pelvis or hips. ACT 112: Negative or not required by law. Electronically signed by: Coleman Teixeira M.D. 08/11/2023 4:05 PM
[2023-08-11 16:22] LABS: Appearance Urine Clear (Clear); Bacteria Urine Automated 1+ (Negative); Bilirubin Urine Negative (Negative); Blood Urine Negative (Negative); Color Urine Yellow; Epithelial Cell Urine Auto 20-30 /lpf (0-5); Glucose Urine UA Negative (Negative); Ketones Urine Negative (Negative); Leukocyte Esterase Urine Trace (Negative); Nitrite Urine Negative (Negative); Protein Urine Trace (Negative); RBC Urine Automated 0-4 /hpf (0-4); Specific Gravity Urine 1.019 (1.000-1.030); Urobilinogen Urine Negative (Negative)
--- NOTE | 2023-08-11 17:01 | Communication Note ---
Date of Service: August 11, 2023 fecal occult + on testing, patient continues on PPI BID. Eliquis placed on hold (on for hx paroxysmal afib/ Hx DVT/PE in setting of prolonged hospitalization w/o chemoproph when she was hospitalized for meningitis). That was >1 year ago (March 2022). Will need continued discussions about anticoagulation given patient w/ hx cirrhosis and hx gastric ulcer (last EGD 04/29/22) and no recent c-scope. Will continue diet for now given likely no scope in AM as she had her last dose eliquis this morning (unless further significant drop) No abdominal pain on exam at present, could consider further imaging. Unclear why not on any treatment for her cirrhosis, does note lasix 20mg prn for weight gain but could consider spironolactone to prevent need for potassium supplementation w/ lasix. Also ?lactulose for constipation issues . Will check ammonia w/ AM labs. Appreciate recs from GI in consultation.
[2023-08-11] MEDS: VENLAFAXINE HCL XR 75 MG CAPXR PO SCH (21:19)
[2023-08-11] MEDS: VENLAFAXINE HCL XR 150 MG CAPXR PO SCH (21:19)
--- NOTE | 2023-08-12 08:34 | Hospitalist Progress Note ---
Date of Service August 12, 2023 Assessment & Plan (1) Generalized weakness: Plan: Pt is a 63 yo female with a past medical history of anxiety/depression, a fib, DMT2 on insulin, HTN, liver cirrhosis, hx cryptococcal meningitis, hx DVT who presented to the hospital after recent discharge on 08/01 for UTI/hallucination for complaints of increased abdominal pain/rectal discomfort/cramping x 2 days without BM and wanting placement for weakness as found in urine/stool at current facility at [facility] Deconditioning/Fecal impaction/Constipation/Fall Noting to have completed treatment for UTI 08/02 w/ bactrim Patient reported having fall prior to admission, has some bruising - will obtain pelvis/sacrum xrays to evaluate for fracture. ?if fall/possible fracture contributing to her constipation imaging noting possible S3 fx, can utilize ice/heat, tylenol (2gm max), topical voltaren as needed, pain control Bowel regimen, miralax daily and can continue/increase if needed Repeat UA/possible infection/suprapubic discomfort, placed on Ceftriaxone for now and f/u urine cx PT/OT consults pending, wanting [facility]. Patient is [facility]. CM following (2) GI bleeding: Plan: BRBPR/Anemia (chronic anemia for several months in system, on eliquis) - reported BRBPR w/ BM after initial constipation/enema in ER w/ large amount of stool passing and reported feeling much better - ?hemorrhoidal vs other-- reporting bright red blood per rectum on toilet paper over the past several weeks - patient w/ chronic anemia (hgb in 7-8 for past several months) - On eliquis for hx paroxysmal afib/also DVT/PE last summer w/ her meningitis (not on chemoproph during stay due to need for LP, suspect provoked in setting infection, has completed 1yr) Fecal occult obtained, POSITIVE (?hemorrhoidal, diverticular vs other - does have hx gastric ulcer) Eliquis placed on HOLD Iron studies obtained -Iron LOW 23, unsaturated IBC elevated 369, trans % sat 6, ferritin 15.4. Venofer provided 08/11, repeated AM 08/12. B12/folate wnl (B12 prior low at 129 in January) Continued on PPI BID for now Hgb dropped to 6.6 on AM labs -- RN noting brown stool on gown/no further bleeding reported. Type/screen this morning, type/cross 2 units Blood consent obtained at direction of supervising provider and ordered to transfuse 2 units PRBC w/ IV lasix for today and will monitor repeat blood counts following GI consulted -- Suspected some dilutional? per GI, no plans for scope at present. Appreciate input/recommendations to continue bowel regimin Continue PPI BID Monitor CBC (3) Fecal impaction in rectum: (4) Anemia: (5) Cirrhosis of liver: Plan: last noted on abd CT 06/18. per GI, from fatty liver Limit hepatotoxins, dose appropriate as needed Could consider lactulose if issues w constipation. Ammonia level acceptable (6) Paroxysmal A-fib: Plan: A fib, paroxysmal Eliquis continued on admission, placed on hold 2nd to above for +fecal occult testing/anemia, PBRC as above Keep K/mag replete (placed on mag oxide, should assist w/ constipation as well) (7) Diabetes mellitus type 2, insulin dependent: Plan: DMT2, insulin dependent Last HA1c 02/15 was 10.8%. 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, hallucinations - pt feeling well, no URI symptoms or headache this admission, afebrile, WBC count normal - pt not concerning for recurrence at this time - for related hallucinations, continue home Seroquel - also to be on fluconazole daily prophylaxis, added (dose reduced for renal function to 200mg daily) (9) Hypertension: Plan: HTN - continue home metoprolol - home lasix prn on hold (giving dose w/ PRBC today) (10) Depression: Plan: Depression/Anxiety - continue home venlafaxine however patient taking 150mg + 75mg HS and was adjusted - mood stable at present (11) Anxiety: Plan: as above (12) Gastritis: Plan: GERD - continue home pantoprazole PO BID for now. GI consulted as above, PRBC/venofer as outlined Rec f/u [place] scopes if not completed while inpatient (13) Constipation: Plan: moving her bowels daily (14) Sacral fracture: Plan: possible, noted lucency on imaging. pain control, nonoperative pt/ot and SNF planned at dc Plan [facility] planning for [place]. Patient identified as [facility], CM following. Admission and Anticipated Discharge Date Admission Date: August 10, 2023 Supervising Physician Co-Signing Physician Notes The patient was not seen by me. The chart was reviewed. Case discussed with ETIENNE Rodriguez. Agree with assessment and plan Subjective eval this morning, sitting up in bed reports abdominal pain has much improved since admission, saw someone from GI but did not know if any planned scopes. discussed hgb level/transfusion and holding her eliquis. obtained consent at direction of supervising provider -- 2 units discussed PRBC. She believes she had no fever/chills, chest pain, shortness of breath at this time. Physical Exam 2 Physical Exam: General: WD/WN female resting in bed, NAD (no pain reported, but pain to sacrum w/ repositioning) HEENT: head atraumatic, normocephalic, mmm, trachea midline Resp: CTA, no w/c/r, on room air CV: RRR, no significant mrg, no pitting edema/calf tenderness GI: +BS, soft/NT recal: 2-3 external, nonbleeding hemorrhoids noted : no aviles MSK/Neuro: no focal deficit, no slurred speech/facial droop mild bruising/ecchymosis to sacral region, tender to palpation Psych: alert/oriented x 3, cooperative with exam Results & Data Results & Data Vital Signs (Past 12 Hours) Vital Signs Temp Pulse Resp BP Pulse Ox O2 Del Method 08/12/23 07:17 36.6 C 62 15 98/67 L 100 Room Air Laboratory Results 08/12/23 08:40 08/12/23 08:40 Diagnostic Findings Hip/Pelvis X-Ray 08/11/23 09:17 XR hip ELVIE 2v w pelvis CLINICAL HISTORY: fall, low back pain. Pelvic and hip pain. COMPARISON STUDY: None. FINDINGS: The sacrum is now well visualized due to overlying bowel gas. Otherwise, no fracture or dislocation within the pelvis or hips. There is a left total hip arthroplasty. The hardware appears intact. Mild degenerative changes within the right hip. No abnormal periprosthetic lucency. IMPRESSION: No acute fracture or dislocation within the pelvis or hips. ACT 112: Negative or not required by law. Electronically signed by: Coleman Teixeira M.D. 08/11/2023 4:05 PM Sacrum and Coccyx X-Ray 08/11/23 09:17 XR sacrum coccyx min 2V CLINICAL HISTORY: fall, pain, eval fx COMPARISON: CT of the abdomen and pelvis June 15, 2023. FINDINGS: Left hip arthroplasty is incidentally noted. The sacroiliac joints are intact. No acute fracture is identified within visualized portions of the pelvis. There is subtle lucency and cortical irregularity of the anterior cortex of a sacral vertebral body, likely S3. IMPRESSION: Subtle lucency and cortical irregularity of a sacral vertebral body, likely S3. This may be artifactual however an acute nondisplaced fracture cannot be excluded. ACT 112: Negative or not required by law. Electronically signed by: Godwin Burden M.D. 08/11/2023 1:15 PM PG Care Time/CCT Total # of Minutes Spent Total Time Spent with Patient: Total time spent is greater than 50% in coordination of care (as documented) at patient's floor/unit and/or counseling patient: Coding Level of Care Code 13812 SUB INP/OBS CARE 3/50MIN Diagnoses Generalized weakness R53.1 GI bleeding K92.2 Fecal impaction in rectum K56.41 Anemia D62 Anemia type: other cause Other causes of anemia: acute posthemorrhagic Cirrhosis of liver K74.60 Paroxysmal A-fib I48.0 Diabetes mellitus type 2, insulin dependent E11.9; Z79.4 Cryptococcal meningitis B45.1 Essential hypertension I10 Hypertension type: essential hypertension Depression, unspecified depression type F32.9 Depression Type: unspecified Anxiety F41.9 Gastritis K29.70 Constipation K59.00 Constipation type: unspecified constipation type Sacral fracture S32.10XA (4) Anemia Anemia type: other cause Other causes of anemia: acute posthemorrhagic Qualified Code(s): D62 - Acute posthemorrhagic anemia (9) Hypertension Hypertension type: essential hypertension Qualified Code(s): I10 - Essential (primary) hypertension (10) Depression Depression Type: unspecified Qualified Code(s): F32.9 - Major depressive disorder, single episode, unspecified (13) Constipation Constipation type: unspecified constipation type Qualified Code(s): K59.00 - Constipation, unspecified
[2023-08-12] MEDS: FLUCONAZOLE 100 MG TAB PO SCH (08:35)
[2023-08-12] MEDS: CETIRIZINE HCL 10 MG TABLET PO SCH (08:35)
[2023-08-12] MEDS: MAGNESIUM OXIDE 400 MG TAB PO SCH ×2 (08:35→21:33)
[2023-08-12] MEDS: POLYETHYLENE (MIRALAX) 17 GM PACK PO SCH (08:35)
[2023-08-12] MEDS: QUEtiapine FUMARATE 25 MG TABLET PO SCH ×2 (08:35→21:34)
[2023-08-12] MEDS: PANTOprazole 40 MG TAB PO SCH ×2 (08:36→21:34)
[2023-08-12] MEDS: METOPROLOL SUCC 25MG EXT REL TAB PO SCH ×2 (08:36→21:33)
[2023-08-12] MEDS: INSULIN ASPART PER UNIT CHARGE SC SCH ×4 (08:40→21:32)
[2023-08-12] MEDS: LANTUS PER UNIT CHARGE SQ SCH ×2 (08:43→21:32)
[2023-08-12] MEDS ORDERED: IRON SUCROSE 300 MG in SODIUM CHLORIDE 0.9% 250 ML IV SCH (09:00)
[2023-08-12 09:21] LABS: Hematocrit (blood only) 20.6 % (37.0-47.0); Hemoglobin 6.6 g/dl (12.0-16.0); Mean Corpuscular Hemoglobin 27.4 pg (25.0-34.0); Mean Corpuscular Volume 85.5 fL (80.0-100.0); Platelet Count 211 K/uL (130-400); RDW Coefficient of Variation 16.2 % (11.5-14.5); RDW Standard Deviation 50.5 fL (36.4-46.3); Red Blood Count 2.41 M/uL (4.20-5.40); White Blood Count 5.43 K/ul (4.8-10.8)
[2023-08-12 09:31] LABS: Albumin Globulin Ratio 1.3 (0.9-2); Albumin Level 3.6 gm/dl (3.4-5.0); BUN Creatinine Ratio 23.3 (10-20); Bilirubin,Total 0.3 mg/dl (0.2-1.0); Calcium 9.4 mg/dl (8.6-10.3); Creatinine Clr Calc Pharmacy 34.5 ml/min; Est GFR (African American) 50.7 ml/min; Est GFR (Non-African American) 43.7 ml/min; Globulin 2.8 gm/dl (2.5-4.0); Potassium 3.9 mmol/L (3.5-5.1); Total Protein 6.4 gm/dl (6.0-8.3)
[2023-08-12 09:33] LABS: Basophils # (auto) 0.04 K/uL (0.00-0.20); Basophils % (auto) 0.7 %; Eosinophils # (auto) 0.18 K/uL (0.00-0.50); Eosinophils % (auto) 3.3 %; Immature Granulocytes # (auto) 0.01 K/uL (0.01-0.20); Immature Granulocytes % (auto) 0.2 %; Lymphocytes # (auto) 1.69 K/uL (1.20-3.40); Lymphocytes % (auto) 31.1 %; Monocytes # (auto) 0.36 K/uL (0.11-0.59); Monocytes % (auto) 6.6 %; Neutrophils # (auto) 3.15 K/uL (1.40-6.50); Neutrophils % (auto) 58.1 %; Polychromasia 1+
[2023-08-12] MEDS ORDERED: SODIUM CHLORIDE 0.9% 250 ML IV PRN ×3 (09:37→14:50)
[2023-08-12 09:39] LABS: INR 1.2 (0.9-1.1); Prothrombin Time 13.1 Seconds (9.0-12.0)
--- NOTE | 2023-08-12 09:51 | Gastrointestinal Consultation ---
Date of Consultation August 12, 2023 Assessment & Plan (1) Constipation: (2) Fecal impaction in rectum: (3) Cirrhosis of liver: Plan Patient is feeling significantly better since moving bowels. she did have Hemoccult positive stool but not unexpected given disimpaction attempt and hemorrhoids seen on rectal exam. hgb is stable with where it has been and there is no obvious GI bleeding. Suspect that cirrhosis is related to fatty liver. Ammonia is normal. AFP pending. liver imaging is updated as of 05/2023. Continue with miralax 17gm daily - can titrate up to TID dosing. If miralax not continuing to be helpful for constipation, can consider lactulose. Recommend outpatient EGD/colonoscopy for further evaluation of anemia, but again, this is relatively stable with where it has been. Follow labs, transfuse as needed. Patient was seen and examined with Dr. Gonsalez who advised on plan. Supervising Physician Co-Signing Physician Notes I saw the patient and agree with the findings as documented by YOLANDA Rangel History of Present Illness Reason for Consultation: Cirrhosis / positive occult blood testing, anemia Requesting Physician: Jeanne Tsai PA-C Attending Physician: Kenan Echevarria MD History of Present Illness Patient is a 63 year old female with a past medical history of anxiety, depression, a fib, DM II on insulin, HTN, liver cirrhosis, history if cryptococcal meningitis, history of DVT who presents to the hospital on 08/10/23 for constipation and placement concerns. During her evaluation in the ED she had been attempted to have manual disimpaction but this was unsuccessful. She did eventually pass a large amount of stool with use of an enema. She tells me that since her admission and having had a large bowel movement that she has felt much better. no abdominal pain at this time. she tells me she had a bowel movement today as well. she denies any signs of obvious GI bleeding. She did test Hemoccult positive, and chart does note hemorrhoids were seen during rectal examination. Her hgb has been in the 7-8 range in the past. she denies any confusion or changes in mental status. Overall, she tells me she feels better since she has been moving her bowels. Allergies Allergy/AdvReac Type Severity Reaction Status Date / Time Penicillins Allergy Intermediate Hives Verified 08/10/23 16:39 atorvastatin Allergy Unknown CAN'T Verified 08/10/23 16:39 REMEMBER/? RAISED LIVER LEVELS gemfibrozil [From Lopid] Allergy Unknown CAN'T Verified 08/10/23 16:39 REMEMBER/ ? RAISED LIVER LEVELS rosuvastatin AdvReac Intermediate Muscle Pain Verified 08/10/23 16:39 acetaminophen [From Tylenol] AdvReac Unknown CAN NOT Verified 08/10/23 16:39 TAKE D/T LIVER ISSUES ibuprofen AdvReac Unknown liver Verified 08/10/23 16:39 issues Home Medications Medication Instructions Recorded Confirmed Type Contour Next Test Strips (blood #300 ea 08/01/23 08/02/23 Rx sugar diagnostic) Saccharomyces boulardii 250 mg 250 mg PO BID #20 caps 08/01/23 08/10/23 Rx capsule (Florastor) apixaban 5 mg tablet (Eliquis) 5 mg PO BID #60 tabs 08/01/23 08/10/23 Rx betamethasone dipropionate 0.05 % 1 applic topical TID PRN skin 08/01/23 Rx lotion irritation #60 mL cetirizine 10 mg capsule (Zyrtec) 10 mg PO DAILY allergy symptoms 08/01/23 08/10/23 Rx #90 caps cholecalciferol (vitamin D3) 50 2,000 unit PO DAILY #90 caps 08/01/23 08/10/23 Rx mcg (2,000 unit) capsule diphenhydramine HCl 25 mg capsule 25 mg PO TID PRN Allergy Symptoms 08/01/23 08/10/23 Rx (Allergy (diphenhydramine)) #30 caps fluticasone propionate 50 1 spray intranasal DAILY #16 grams 08/01/23 08/10/23 Rx mcg/actuation nasal spray,suspension (Flonase Allergy Relief) furosemide 20 mg tablet 20 mg PO QAM PRN volume overload 08/01/23 08/10/23 Rx or weight gain #30 tabs insulin glargine 100 unit/mL (3 15 unit (0.15 mL) subcut AMPM #12 08/01/23 08/10/23 Rx mL) subcutaneous pen (Lantus mL Solostar U-100 Insulin) lidocaine 5 % topical patch 1 patch transdermal QAM #30 ea 08/01/23 08/10/23 Rx magnesium chloride 64 mg 64 mg PO BID #60 tabs 08/01/23 08/10/23 Rx (magnesium chloride) tablet,delayed release (Mag 64) meclizine 12.5 mg tablet 12.5 mg PO QAM #30 tabs 08/01/23 08/10/23 Rx metoprolol succinate 25 mg 25 mg PO BID #60 tabs 08/01/23 08/10/23 Rx tablet,extended release 24 hr multivitamin 1 tab PO QAM #30 tabs 08/01/23 08/10/23 Rx pantoprazole 40 mg tablet,delayed 40 mg PO BID #180 tabs 08/01/23 08/10/23 Rx release potassium chloride 20 mEq 20 meq PO QAM #90 tabs 08/01/23 08/10/23 Rx tablet,extended release promethazine 12.5 mg tablet 12.5 mg PO TID PRN nausea and 08/01/23 08/10/23 Rx vomiting #30 tabs sucralfate 100 mg/mL oral 10 ml PO QID #420 mL 08/01/23 08/10/23 Rx suspension (Carafate) venlafaxine 150 mg 150 mg PO HS #30 caps 08/01/23 08/10/23 Rx capsule,extended release 24 hr fluconazole 200 mg tablet 400 mg PO DAILY 08/10/23 08/10/23 History quetiapine 25 mg tablet See Rx Instructions .Route .COMPLEX 08/10/23 08/10/23 History venlafaxine 75 mg capsule,extended 75 mg PO HS 08/10/23 08/10/23 History release 24 hr Patient History Medical History Dupuytren contracture History of anesthesia reaction with more recent surgeries seems it is harder to wake up History of atrial fibrillation dx while hospitalized summer 2021 History of pulmonary embolus (PE) dx during hospitalization summer 2021 History of DVT (deep vein thrombosis) dx during hospitalization summer 2021 Acid reflux History of gastric ulcer summer 2021 Vertigo 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[facility] for 4 mon summer [address] GONZALEZ & INFECTIOUS DISEASE IBS (irritable bowel syndrome) Stable History of COVID-12 January 2021 > [facility], not hospitalized, fever, ear pain- did give infusion in ER No current issues Dyslipidemia Cirrhosis of liver FOLLOWS W/ [facility] Stable currently Depression Anxiety Diabetes mellitus, type 2 IDDM Glucose fluctuates - since Covid in December 2020 Follows with endocrinology Insomnia Kidney stones FOLLOWS WITH DR FUCHS No current issues - monitoring currently Hypertension Hydronephrosis due to obstruction of ureter Surgical History Hx of left cataract extraction History of endoscopy Status post Dupuytren's fasciectomy Hx of surgical amputation of finger left pinky History of cystoscopy WITH STENTS AND STONE BASKETING History of lithotripsy History of total hip arthroplasty LEFT Hx of colonoscopy Hx of wisdom tooth extraction History of tonsillectomy and adenoidectomy Hx of total hysterectomy GERALD WITH BSO Hx of tubal ligation Hx laparoscopic cholecystectomy Family History Father , age 75 Family history of diabetes mellitus Coronary heart disease Brother Family history of diabetes mellitus Mother , age 67 Family history of diabetes mellitus Heart disease Hypertension Myocardial infarction Grandfather (Paternal) Family history of diabetes mellitus Grandmother (Paternal) Family history of diabetes mellitus Denies family history of Ovarian cancer Prostate cancer Breast cancer Colorectal cancer Social History Smoking Status: Never smoker Tobacco Type: Cigarettes Second Hand Exposure: No; Do You Dip or Chew Tobacco: No; Hx Alcohol Use: No Hx Substance Use: No Preferred Language: Romansh Communication Ability: Effective Visual Impairment: No Limitations Hearing Ability: Normal Independent Trader Required: No Beliefs That Will Affect Care: None marital status: Current Living Situation: Correction Current Living Situation Comment: alone current occupational status: employed and disabled current occupation: [employer] does have disability for diabetes- insurance helps How many Children do You have: 2 Feels Safe at Home: No Is there a partner from a previous relationship who is making you feel unsafe now?: No Childhood Exposure to Second-Hand Smoke: No Diet: diabetic caffeine: Yes during the past year weight has: increased > 10 lbs Dental Care, Regularly: No Physical Activity Frequency: Does not Exercise Seatbelt Use: always Sunscreen Use: Yes Gender Identity: Female Assistive Devices: None Review of Systems Review of Systems: All systems reviewed & are unremarkable except as noted in HPI & below Physical Exam Constitutional: WD/WN, vitals as above Respiratory: normal respiratory effort, lungs clear to auscultation Cardiovascular: RRR, no murmur, no edema Gastrointestinal (Abdomen): normal bowel sounds, soft, nontender, no hepatosplenomegaly Skin: no rashes, warm and dry Psychiatric: Orientation: alert and oriented x 3 Affect: euthymic affect Results & Data Vital Signs (Past 12 Hours) Vital Signs Temp Pulse Resp BP Pulse Ox O2 Del Method 08/12/23 07:17 97.9 F 62 15 98/67 L 100 Room Air PG Care Time/CCT Total # of Minutes Spent Total Time Spent with Patient: Total time spent is greater than 50% in coordination of care (as documented) at patient's floor/unit and/or counseling patient: Coding Level of Care Code 75979 IN/OBS CONSULT LVL 3,45M Diagnoses Constipation K59.00 Constipation type: unspecified constipation type Fecal impaction in rectum K56.41 Cirrhosis of liver K74.60 Time Spent (min) 47 (1) Constipation Constipation type: unspecified constipation type Qualified Code(s): K59.00 - Constipation, unspecified
[2023-08-12 09:54] LABS: Folate (Folic Acid),Ser orPlas 20.23 ng/ml (>5.38)
[2023-08-12] MEDS ORDERED: FUROSEMIDE 40 MG/4 ML VIAL IV ONE (10:04)
[2023-08-12] MEDS: cefTRIAXone SODIUM 1,000 MG in DEXTROSE 5 % MINI-B 50 ML IV SCH (10:27)
--- NOTE | 2023-08-12 12:20 | Psychiatric Consultation ---
Date of Consultation August 12, 2023 Impression / Recommendations Impression 63 yo woman with a history of hallucinations, prior cryptococcal meningitis who has traditionally responded well to hospital routines/care. Over recent months has developed significantly more cognitive difficulties related to independent living skills associated with her neurologic condition or other cognitive process. She has responded well to scheduled Seroquel and her mood remains stable without any medication side effects. The patient is psychiatrically stable for transfer to a care home facility. There is no acute indication for inpatient psychiatric hospitalization as the patient is not suicidal or homicidal; there is no evidence of psychosis nor psychiatric symptoms interfering with their ability to care for their basic needs. Psychiatric follow-up care for this patient should include ongoing management of their medications. Overall, I spent a total of 45 minutes with this case including review of chart records, review of labwork, direct evaluation of the patient at bedside, discussion of the patient with the hospitalist provider, discussion with the psychiatric liason during clinical rounds and documentation in the electronic health record. 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 Consult is for target process. Chief Complaint "I'm doing better". History of Present Illness Sudha is known to me from her recent medical admission earlier this month. Apparently after going to [facility] for personal care she and her family felt it was not a good fit so she was brought back to the hospital. Today she reports her mood is "I'm doing better". She is oriented and denies any mood symptoms nor SI nor HI. She denies any current symptoms of psychosis. Notes she hasn't seen any visual hallucinations in "the last couple days" those when she does experience these sometimes she has difficulty "telling what's real and what isn't". But she is finding the Seroquel helpful and denies any medication side effects. She makes an appropriate joke about having lots of orange slices leftover from her lunch and that "yes my vit C is very high now, I won't be catching any winter colds". Allergies Allergy/AdvReac Type Severity Reaction Status Date / Time Penicillins Allergy Intermediate Hives Verified 08/10/23 16:39 atorvastatin Allergy Unknown CAN'T Verified 08/10/23 16:39 REMEMBER/? RAISED LIVER LEVELS gemfibrozil [From Lopid] Allergy Unknown CAN'T Verified 08/10/23 16:39 REMEMBER/ ? RAISED LIVER LEVELS rosuvastatin AdvReac Intermediate Muscle Pain Verified 08/10/23 16:39 acetaminophen [From Tylenol] AdvReac Unknown CAN NOT Verified 08/10/23 16:39 TAKE D/T LIVER ISSUES ibuprofen AdvReac Unknown liver Verified 08/10/23 16:39 issues Home Medications Medication Instructions Recorded Confirmed Type Contour Next Test Strips (blood #300 ea 08/01/23 08/02/23 Rx sugar diagnostic) Saccharomyces boulardii 250 mg 250 mg PO BID #20 caps 08/01/23 08/10/23 Rx capsule (Florastor) apixaban 5 mg tablet (Eliquis) 5 mg PO BID #60 tabs 08/01/23 08/10/23 Rx betamethasone dipropionate 0.05 % 1 applic topical TID PRN skin 08/01/23 08/10/23 Rx lotion irritation #60 mL cetirizine 10 mg capsule (Zyrtec) 10 mg PO DAILY allergy symptoms 08/01/23 08/10/23 Rx #90 caps cholecalciferol (vitamin D3) 50 2,000 unit PO DAILY #90 caps 08/01/23 08/10/23 Rx mcg (2,000 unit) capsule diphenhydramine HCl 25 mg capsule 25 mg PO TID PRN Allergy Symptoms 08/01/23 08/10/23 Rx (Allergy (diphenhydramine)) #30 caps fluticasone propionate 50 1 spray intranasal DAILY #16 grams 08/01/23 08/10/23 Rx mcg/actuation nasal spray,suspension (Flonase Allergy Relief) furosemide 20 mg tablet 20 mg PO QAM PRN volume overload 08/01/23 08/10/23 Rx or weight gain #30 tabs insulin glargine 100 unit/mL (3 15 unit (0.15 mL) subcut AMPM #12 08/01/23 08/10/23 Rx mL) subcutaneous pen (Lantus mL Solostar U-100 Insulin) lidocaine 5 % topical patch 1 patch transdermal QAM #30 ea 08/01/23 08/10/23 Rx magnesium chloride 64 mg 64 mg PO BID #60 tabs 08/01/23 08/10/23 Rx (magnesium chloride) tablet,delayed release (Mag 64) meclizine 12.5 mg tablet 12.5 mg PO QAM #30 tabs 08/01/23 08/10/23 Rx metoprolol succinate 25 mg 25 mg PO BID #60 tabs 08/01/23 08/10/23 Rx tablet,extended release 24 hr multivitamin 1 tab PO QAM #30 tabs 08/01/23 08/10/23 Rx pantoprazole 40 mg tablet,delayed 40 mg PO BID #180 tabs 08/01/23 08/10/23 Rx release potassium chloride 20 mEq 20 meq PO QAM #90 tabs 08/01/23 08/10/23 Rx tablet,extended release promethazine 12.5 mg tablet 12.5 mg PO TID PRN nausea and 08/01/23 08/10/23 Rx vomiting #30 tabs sucralfate 100 mg/mL oral 10 ml PO QID #420 mL 08/01/23 08/10/23 Rx suspension (Carafate) venlafaxine 150 mg 150 mg PO HS #30 caps 08/01/23 08/10/23 Rx capsule,extended release 24 hr fluconazole 200 mg tablet 400 mg PO DAILY 08/10/23 08/10/23 History quetiapine 25 mg tablet See Rx Instructions .Route .COMPLEX 08/10/23 08/10/23 History venlafaxine 75 mg capsule,extended 75 mg PO HS 08/10/23 08/10/23 History release 24 hr Patient History Medical History Dupuytren contracture History of anesthesia reaction with more recent surgeries seems it is harder to wake up History of atrial fibrillation dx while hospitalized summer 2021 History of pulmonary embolus (PE) dx during hospitalization summer 2021 History of DVT (deep vein thrombosis) dx during hospitalization summer 2021 Acid reflux History of gastric ulcer summer 2021 Vertigo 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[facility] for 4 mon summer [address] GONZALEZ & INFECTIOUS DISEASE IBS (irritable bowel syndrome) Stable History of COVID-12 January 2021 > [facility], not hospitalized, fever, ear pain- did give infusion in ER No current issues Dyslipidemia Cirrhosis of liver FOLLOWS W/ [facility] Stable currently Depression Anxiety Diabetes mellitus, type 2 IDDM Glucose fluctuates - since Covid in December 2020 Follows with endocrinology Insomnia Kidney stones FOLLOWS WITH DR FUCHS No current issues - monitoring currently Hypertension Hydronephrosis due to obstruction of ureter Surgical History Hx of left cataract extraction History of endoscopy Status post Dupuytren's fasciectomy Hx of surgical amputation of finger left pinky History of cystoscopy WITH STENTS AND STONE BASKETING History of lithotripsy History of total hip arthroplasty LEFT Hx of colonoscopy Hx of wisdom tooth extraction History of tonsillectomy and adenoidectomy Hx of total hysterectomy GERALD WITH BSO Hx of tubal ligation Hx laparoscopic cholecystectomy Family History Father , age 75 Family history of diabetes mellitus Coronary heart disease Brother Family history of diabetes mellitus Mother , age 67 Family history of diabetes mellitus Heart disease Hypertension Myocardial infarction Grandfather (Paternal) Family history of diabetes mellitus Grandmother (Paternal) Family history of diabetes mellitus Denies family history of Ovarian cancer Prostate cancer Breast cancer Colorectal cancer Social History Smoking Status: Never smoker Tobacco Type: Cigarettes Second Hand Exposure: No; Do You Dip or Chew Tobacco: No; Hx Alcohol Use: No Hx Substance Use: No Preferred Language: Hungarian Communication Ability: Effective Visual Impairment: No Limitations Hearing Ability: Normal Engine Designer Required: No Beliefs That Will Affect Care: None marital status: Current Living Situation: Prison Current Living Situation Comment: alone current occupational status: employed and disabled 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- insurance helps How many Children do You have: 2 Feels Safe at Home: No Is there a partner from a previous relationship who is making you feel unsafe now?: No Childhood Exposure to Second-Hand Smoke: No Diet: diabetic caffeine: Yes during the past year weight has: increased > 10 lbs Dental Care, Regularly: No Physical Activity Frequency: Does not Exercise Seatbelt Use: always Sunscreen Use: Yes Gender Identity: Female Assistive Devices: None Physical Exam Psychiatric: Orientation: alert and oriented x 3 Apperance: appropriately dressed and appropriately groomed Eye Contact: good eye contact Motor Behavior: no abnormal motor movements Speech: normal rate/rhythm/volume of speech Affect: euthymic affect Mood: no depressed mood and no anxious mood Thought Process: goal directed thought process Thought Content: reality based without delusions; not paranoid Suicidal Thoughts: denies suicidal thoughts Homicidal Thoughts: denies homicidal thoughts Hallucinations: no auditory hallucinations and no visual hallucinations Cognition: attention grossly intact and language grossly intact Estimated Intelligence: consistent with education level Insight: + limited insight Judgment: + limited judgement Vital Signs (Past 24 Hours): Last Vital Signs Temp 36.6 C 08/12/23 11:31 Pulse 71 08/12/23 11:31 Resp 16 08/12/23 11:31 BP 133/79 08/12/23 11:31 Pulse Ox 98 08/12/23 11:31 O2 Del Method Room Air 08/12/23 07:17 Results & Data (PSY) Medications Administered Acetaminophen (Acetaminophen 500 Mg Tab) 1,000 mg PO Q12H PRN PRN Reason: pain, fever, or headache Stop: 09/10/23 10:34 Last Admin: 08/11/23 21:18 Dose: 1,000 mg Documented By: Admin: 08/11/23 10:55 Dose: 1,000 mg Documented By: RAFIA Apixaban (Apixaban 5 Mg Tablet) 5 mg PO BID HALEY Stop: 09/09/23 20:59 Last Admin: 08/11/23 08:52 Dose: 5 mg Documented By: Admin: 08/10/23 21:26 Dose: 5 mg Documented By: FUAD Cetirizine HCl (Cetirizine Hcl 10 Mg Tablet) 10 mg PO DAILY HALEY Stop: 09/10/23 08:59 Last Admin: 08/12/23 08:35 Dose: 10 mg Documented By: Admin: 08/11/23 08:52 Dose: 10 mg Documented By: RAFIA Fluconazole (Fluconazole 100 Mg Tab) 200 mg PO QAM HALEY Stop: 09/10/23 12:44 Last Admin: 08/12/23 08:35 Dose: 200 mg Documented By: Admin: 08/11/23 14:50 Dose: 200 mg Documented By: RAFIA Iron Sucrose 300 mg/ Sodium (Chloride) 265 mls @ 176.667 mls/hr IV DAILY HALEY Stop: 08/13/23 10:29 Last Infusion: 08/12/23 10:06 Dose: Infused Documented By: Admin: 08/12/23 08:36 Dose: 176.7 mls/hr Documented By: TATI Ceftriaxone Sodium 1,000 mg/ (Dextrose) 50 mls @ 100 mls/hr IV Q24H HALEY; Protocol Stop: 08/22/23 10:14 Last Infusion: 08/12/23 11:09 Dose: Infused Documented By: Admin: 08/12/23 10:27 Dose: 100 mls/hr Documented By: TATI Insulin Aspart (Insulin Aspart Per Unit Charge) 0 units SC ACHS HALEY Stop: 09/09/23 20:59 Last Admin: 08/12/23 08:40 Dose: Not Given Documented By: Admin: 08/11/23 20:16 Dose: Not Given Documented By: Admin: 08/11/23 17:16 Dose: 3 units Documented By: RAFIA Co-signed By: MARCO Admin: 08/11/23 12:36 Dose: 1 units Documented By: RAFIA Co-signed By: CINTHYA Admin: 08/11/23 08:48 Dose: Not Given Documented By: Admin: 08/10/23 21:27 Dose: 1 units Documented By: FUAD Co-signed By: TERRENCE Insulin Glargine (Lantus Per Unit Charge) 10 units SQ BID HALEY Stop: 09/09/23 20:59 Last Admin: 08/12/23 08:43 Dose: 10 units Documented By: TATI Co-signed By: ISRRAEL Admin: 08/11/23 21:19 Dose: 10 units Documented By: MADELEINE Co-signed By: STACIA Admin: 08/11/23 08:57 Dose: 10 units Documented By: RAFIA Co-signed By: MARCO Admin: 08/10/23 21:25 Dose: 10 units Documented By: FUAD Co-signed By: ADZ Magnesium Oxide (Magnesium Oxide 400 Mg Tab) 400 mg PO BID HALEY Stop: 09/10/23 08:59 Last Admin: 08/12/23 08:35 Dose: 400 mg Documented By: Admin: 08/11/23 21:18 Dose: 400 mg Documented By: Admin: 08/11/23 10:25 Dose: 400 mg Documented By: RAFIA Metoprolol Succinate (Metoprolol Succ 25mg Ext Rel Tab) 25 mg PO BID HALEY Stop: 09/09/23 20:59 Last Admin: 08/12/23 08:36 Dose: Not Given Documented By: Admin: 08/11/23 21:18 Dose: 25 mg Documented By: Admin: 08/11/23 08:52 Dose: 25 mg Documented By: Admin: 08/10/23 21:26 Dose: 25 mg Documented By: FUAD Pantoprazole Sodium (Pantoprazole 40 Mg Tab) 40 mg PO BID HALEY Stop: 09/09/23 20:59 Last Admin: 08/12/23 08:36 Dose: 40 mg Documented By: Admin: 08/11/23 21:19 Dose: 40 mg Documented By: Admin: 08/11/23 08:52 Dose: 40 mg Documented By: Admin: 08/10/23 21:26 Dose: 40 mg Documented By: FUAD Polyethylene Glycol (Polyethylene (Miralax) 17 Gm Pack) 17 gm PO DAILY HALEY Stop: 09/10/23 08:59 Last Admin: 08/12/23 08:35 Dose: 17 gm Documented By: Admin: 08/11/23 08:57 Dose: 17 gm Documented By: RAFIA Quetiapine Fumarate (Quetiapine Fumarate 25 Mg Tablet) 75 mg PO HS HALEY Stop: 09/09/23 20:59 Last Admin: 08/11/23 21:19 Dose: 75 mg Documented By: Admin: 08/10/23 21:26 Dose: 75 mg Documented By: FUAD Quetiapine Fumarate (Quetiapine Fumarate 25 Mg Tablet) 25 mg PO QAM HALEY Stop: 09/10/23 08:59 Last Admin: 08/12/23 08:35 Dose: 25 mg Documented By: Admin: 08/11/23 08:52 Dose: 25 mg Documented By: RAFIA Venlafaxine HCl (Venlafaxine Hcl Xr 150 Mg Capxr) 150 mg PO HS HALEY Stop: 09/09/23 20:59 Last Admin: 08/11/23 21:19 Dose: 150 mg Documented By: Admin: 08/10/23 21:26 Dose: 150 mg Documented By: FUAD Venlafaxine HCl (Venlafaxine Hcl Xr 75 Mg Capxr) 75 mg PO HS HALEY Stop: 09/10/23 20:59 Last Admin: 08/11/23 21:19 Dose: 75 mg Documented By: MADELEINE Coding Level of Care Code 69296 IN/OBS CONSULT LVL 3,45M Diagnoses Physical deconditioning R53.81 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
--- OUTSIDE RECORDS SUMMARY | 2023-08-12 14:24 | External Medical Summary | Summary of Care ---
Author Name Unknown Organization [facility] Address [address] [place] [address] Phone [phone] Care Team Providers Care Foreign Language Instructor Name Role Phone Leia Doyle DO Primary Care Provider [phone]- [phone] Encounter Details Date Type Department Care Team Description 06/15/2023 Hospital Encounter Radiology Film File [address] [place] [address] Allergies Active Allergy Reactions Severity Noted Date Comments Penicillins Hives 03/13/2022 Statins 11/26/2022 Acetaminophen 03/13/2022 Intolerance due to cirrhosis documented as of this encounter (statuses as of 06/28/2023) Medications Medication Sig Dispensed Refills Start Date [...] as of this encounter (statuses as of 06/28/2023) Active Problems Problem Noted Date New onset a-fib 03/16/2022 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 Anemia 03/13/2022 Shortness of breath documented as of this encounter (statuses as of 06/28/2023) Social History Tobacco Use Types Packs/Day Years Used Date Smoking Tobacco: Never Smokeless Tobacco: Never Alcohol Use Standard Drinks/Week Comments Never 0 (1 standard drink = 0.6 oz pur e alcohol) Sex Assigned at Date Recorded Not on file Job Start Date Occupation Industry Not on file Not on file Not on file documented as of this encounter Plan of Treatment Health Maintenance [...] Not on filedocumented as of this encounter Procedures Procedure Name Priority Date/Time Associated Diagnosis Comments RADIOLOGY EXAM - CT (IMAGES ONLY, NO REPORT) Routine 06/15/2023 11:05 PM EDT documented in this encounter Results * RADIOLOGY EXAM - CT (IMAGES ONLY, NO REPORT) (06/15/2023 11:05 PM EDT) 06/15/2023 11:0 4 PM EDT Narrative Scheduling, Silent - 06/27/2023 12:44 PM EDT This is an imaging study not interpreted or resulted by a [facility] or [facility] contracted radiologist. Leia Doyle DO RAD CT documented in this encounter Advance Directives Latest Code Status on File Code Status Date Activated Date Inactivated Comments Full Code 03/13/2022 2:27 AM 03/20/2022 7:20 PM This order reflects the patients wishes and were consensually agreed upon. Care Teams Foreign Language Instructor Relationship Specialty Start Date End Date Leia Doyle DO [address] [address] PCP - General Family Medicine 08/03/22 documented as of this encounter
--- OUTSIDE RECORDS SUMMARY | 2023-08-12 14:24 | External Medical Summary | Summary of Care ---
Author Name Unknown Organization [facility] Address [address] [place] [address] Phone [phone] Care Team Providers Care Punch Finisher Name Role Phone Leia Doyle DO Primary Care Provider [phone]- [phone] Reason for Visit * Reason Onset Date Comments case management 08/04/2023 Encounter Details Date Type Department Care Team (Late st Contact Info) Description 08/04/2023 Telephone Care Coordination [address] [place], [place] [id number] Digna Cardenas RN [address] [place], [place] [phone] case management Allergies Active Allergy Reactions Criticality Noted Date Comments Penicillins Hives 03/13/2022 Statins 11/26/2022 Acetaminophen 03/13/2022 Intolerance due to cirrhosis documented as of this encounter (statuses as of 08/04/2023) Medications Medication Sig Dispensed Refills Start Date [...] as of this encounter (statuses as of 08/04/2023) Active Problems Problem Noted Date Diagnosed Date New onset a-fib 03/16/2022 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 Anemia 03/13/2022 Shortness of breath documented as of this encounter (statuses as of 08/04/2023) Social History Tobacco Use Types Packs/Day Years Used Date Smoking Tobacco: Never Smokeless Tobacco: Never Alcohol Use Standard Drinks/Week Comments Never 0 (1 standard drink = 0.6 oz pur e alcohol) Sex and Gender Information Value Date Recorded Sex Assigned at Not on file Gender Identity Not on file Sexual Orientation Not on file Job Start Date Occupation Industry Not on file Not on file Not on file documented as of this encounter Miscellaneous Notes * Telephone Encounter - Digna Cardenas RN - 08/04/2023 11:47 AM EST Follow-up Post Discharge Attempted Phone Call Third Attempt Call Outcome Unable to Leave Message Plan To send letter Mailbox is full Also attempted [facility], no answer documented in this encounter Plan of Treatment Health Maintenance Due Date Last Done Comments Lipid Panel 1959 COVID-19 Vaccine (#1) 1959 Pneumococcal Vaccine: Pediatrics (0 to 5 Years) and At-Risk Patients (6 to 64 Years) (1 - PCV) 1965 Depression Screening 1971 HIV Screening 1974 Albumin/Creatinine Ratio 1977 Diabetic Eye Exam 1977 Diabetic Foot Exam 1977 Hepatitis C Screening 1977 DTaP,Tdap,and Td Vaccines (1 - Tdap) 1978 Mammogram 1999 Cologuard 2004 Colonoscopy 2004 Colorectal Cancer Screening 2004 Fecal Occult Blood Test 2004 Sigmoidoscopy 2004 Zoster Vaccines (1 of 2) 2009 Hepatitis B (1 of 3 - Risk 3-dose series) 2019 HbA1c 09/13/2022 03/14/2022 Influenza Vaccine (FLU shot) [...] and were consensually agreed upon. Care Teams Punch Finisher Relationship Specialty Start Date End Date Leia Doyle DO [address] [facility] [address] [place] [address] PCP - General Family Medicine 08/03/22 documented as of this encounter
--- OUTSIDE RECORDS SUMMARY | 2023-08-12 14:24 | External Medical Summary | Summary of Care ---
Author Name Unknown Organization [facility] Address [address] [place] [address] Phone [phone] Care Team Providers Care Mobile Practice Lead Name Role Phone Leia Doyle DO Primary Care Provider +1- [phone] Encounter Details Date Type Department Care Team Description 06/23/2023 Hospital Encounter Radiology Film File [address] [place] [address] Allergies Active Allergy Reactions Severity [...] Diabetes mellitus 03/13/2022 Depression 03/13/2022 Hypertension 03/13/2022 TOLETNINO (nonalcoholic steatohepatitis) 02/24 Dyslipidemia 03/13/2022 ALBINA (acute [...] - CT (IMAGES ONLY, NO REPORT) Routine 06/23/2023 9:10 PM EDT documented in this encounter Results * RADIOLOGY EXAM - CT (IMAGES ONLY, NO REPORT) (06/23/2023 9:10 PM EDT) 06/23/2023 9:10 PM EDT Narrative Scheduling, Silent - 06/27/2023 11:22 AM EDT This is an imaging study not interpreted or resulted by a [facility] or [facility] contracted radiologist. Leia Doyle DO RAD CT documented in this encounter Advance Directives Latest Code Status on File Code Status Date Activated Date Inactivated Comments Full Code 03/13/2022 2:27 AM 03/20/2022 7:20 PM This order reflects the patients wishes and were consensually agreed upon. Care Teams Mobile Practice Lead Relationship Specialty [place] [address] [place] [id number] PCP - General Family Medicine 08/03/22 documented as of this encounter
--- OUTSIDE RECORDS SUMMARY | 2023-08-12 14:24 | External Medical Summary | Summary of Care ---
Author Name Unknown Organization [facility] Address [address] [place] [address] Phone [phone] Care Team Providers Care Office Auditor Name Role Phone Leia Doyle DO Primary Care Provider +1- [phone] Reason for Visit * Reason Onset Date Comments case management 08/02/2023 Encounter Details Date Type Department Care Team (Late st Contact Info) Description 08/02/2023 Telephone Care Coordination [address] [place], [place] [phone] Digna Cardenas, STEVE [address] [place], [place] [phone] case management Allergies Active Allergy Reactions Criticality Noted Date Comments Penicillins Hives 03/13/2022 Statins 11/26/2022 Acetaminophen 03/13/2022 Intolerance due to cirrhosis documented as of this encounter (statuses as of 08/02/2023) Medications Medication Sig Dispensed Refills Start Date [...] as of this encounter (statuses as of 08/02/2023) Active Problems Problem Noted Date Diagnosed Date New onset a-fib 03/16/2022 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 Anemia 03/13/2022 Shortness of breath documented as of this encounter (statuses as of 08/02/2023) Social History Tobacco Use Types Packs/Day Years [...] Telephone Encounter - Digna Cardenas RN - 08/02/2023 2:24 PM EST Follow-up Post Discharge Attempted Phone Call First Attempt Call Outcome Unable to Leave Message Plan To attempt another outreach Mailbox is full documented in this encounter Plan of Treatment [...] and were consensually agreed upon. Care Teams Office Auditor Relationship Specialty Start Date End Date Leia Doyle DO [address] [facility] [address] [place] [address] PCP - General Family Medicine 08/03/22 documented as of this encounter
--- OUTSIDE RECORDS SUMMARY | 2023-08-12 14:24 | External Medical Summary | Summary of Care ---
Author Name Unknown Organization [facility] Address [address] [place] [address] Phone [phone] Care Team Providers Care Oracle Bpm Consultant Name Role Phone Leia Doyle DO Primary Care Provider +1- [phone] Reason for Visit * Reason Onset Date Comments case management 08/03/2023 Encounter Details Date Type Department Care Team (Late st Contact Info) Description 08/03/2023 Telephone Care Coordination [address] [place], [place] [id number] Digna Cardenas, STEVE [address] [place], [place] [id number] case management Allergies Active Allergy Reactions Criticality Noted Date Comments Penicillins Hives 03/13/2022 Statins 11/26/2022 Acetaminophen 03/13/2022 Intolerance due to cirrhosis documented as of this encounter (statuses as of 08/03/2023) Medications Medication Sig Dispensed Refills Start Date [...] as of this encounter (statuses as of 08/03/2023) Active Problems Problem Noted Date Diagnosed Date New onset a-fib 03/16/2022 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 Anemia 03/13/2022 Shortness of breath documented as of this encounter (statuses as of 08/03/2023) Social History Tobacco Use Types Packs/Day Years [...] Telephone Encounter - Digna Cardenas RN - 08/03/2023 11:26 AM EST Follow-up Post Discharge Attempted Phone Call Second Attempt Call Outcome Unable to Leave Message [...] and were consensually agreed upon. Care Teams Oracle Bpm Consultant Relationship Specialty Start Date End Date Leia oDyle DO [address] [facility] 2 [place] [address] PCP - General Family Medicine 08/03/22 documented as of this encounter
--- OUTSIDE RECORDS SUMMARY | 2023-08-12 14:24 | External Medical Summary | Summary of Care ---
Author Name Unknown Organization [facility] Address [address] [place] [address] Phone [phone] Care Team Providers Care Sap Manager Name Role Phone Leia Doyle DO Primary Care Provider +1- [phone] Encounter Details Date Type Department Care Team Description 06/24/2023 Hospital Encounter Radiology Film File [address] [place] [address] Allergies Active Allergy Reactions Severity [...] Diabetes mellitus 03/13/2022 Depression 03/13/2022 Hypertension 03/13/2022 TOLENTION (nonalcoholic steatohepatitis) 02/24 Dyslipidemia 03/13/2022 ALBINA (acute [...] Date/Time Associated Diagnosis Comments RADIOLOGY EXAM - MRI (IMAGES ONLY, NO REPORT) Routine 06/24/2023 6:45 PM EDT documented in this encounter Results * RADIOLOGY EXAM - MRI (IMAGES ONLY, NO REPORT) (06/24/2023 6:45 PM EDT) 06/24/2023 6:41 PM EDT Narrative Scheduling, Silent - 06/27/2023 12:41 PM EDT This is an imaging study not interpreted or resulted by a [facility] or [employer] contracted radiologist. Leia Doyle DO RAD MRI-MRA documented in this encounter Advance Directives Latest Code Status on File Code Status Date Activated Date Inactivated Comments Full Code 03/13/2022 2:27 AM 03/20/2022 7:20 PM This order reflects the patients wishes and were consensually agreed upon. Care Teams Sap Manager Relationship Specialty Start Date End Date Leia Doyle DO [address] [address] PCP - General Family Medicine 08/03/22 documented as of this encounter
--- OUTSIDE RECORDS SUMMARY | 2023-08-12 14:25 | External Medical Summary | Summary of Care ---
Author Name Unknown Organization [facility] Address [address] [place] [address] Phone [phone] Care Team Providers Care Sole Seamer Name Role Phone Leia Doyle DO Primary Care Provider +1- [phone] Reason for Visit * Reason Onset Date Comments case management 06/23/2023 Encounter Details Date Type Department Care Team Description 06/23/2023 Telephone Care Coordination [address] [place], [place] [phone] Digna Cardenas RN [address] [place], [place] [phone] case management Allergies Active Allergy Reactions Severity Noted Date Comments Penicillins Hives 03/13/2022 Statins 11/26/2022 Acetaminophen 03/13/2022 Intolerance due to cirrhosis documented as of this encounter (statuses as of 06/23/2023) Medications Medication Sig Dispensed Refills Start Date [...] as of this encounter (statuses as of 06/23/2023) Active Problems Problem Noted Date New onset a-fib 03/16/2022 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 Anemia 03/13/2022 Shortness of breath documented as of this encounter (statuses as of 06/23/2023) Social History Tobacco Use Types Packs/Day Years [...] Telephone Encounter - Digna Cardenas RN - 06/23/2023 10:33 AM EDT Follow-up Post Discharge Attempted Phone Call Second Attempt Call Outcome Unable to Leave Message Plan To attempt another outreach documented in [...] and were consensually agreed upon. Care Teams Sole Seamer Relationship Specialty Start Date End Date Leia Doyle DO [address] [address] PCP - General Family Medicine 08/03/22 documented as of this encounter
--- OUTSIDE RECORDS SUMMARY | 2023-08-12 14:25 | External Medical Summary | Summary of Care ---
Author Name Unknown Organization [facility] Address [address] [place] [address] Phone [phone] Care Team Providers Care Solderer Name Role Phone Leia Doyle DO Primary Care Provider +1- [phone] Encounter Details Date Type Department Care Team Description 06/24/2023 Orders Only Unspecified Department Leia Doyle DO [address] [place] [address] Allergies Active Allergy Reactions Severity Noted Date Comments Penicillins Hives 03/13/2022 Statins 11/26/2022 Acetaminophen 03/13/2022 Intolerance due to cirrhosis documented as of this encounter (statuses as of 06/27/2023) Medications Medication Sig Dispensed Refills Start Date [...] as of this encounter (statuses as of 06/27/2023) Active Problems Problem Noted Date New onset a-fib 03/16/2022 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 Anemia 03/13/2022 Shortness of breath documented as of this encounter (statuses as of 06/27/2023) Social History Tobacco Use Types Packs/Day Years [...] interpreted or resulted by a [facility] or [employer] contracted radiologist. Leia Doyle DO RAD MRI-MRA documented in this encounter Advance Directives Latest Code Status on File Code Status Date Activated Date Inactivated Comments Full Code 03/13/2022 2:27 AM 03/20/2022 7:20 PM This order reflects the patients wishes and were consensually agreed upon. Care Teams Solderer Relationship Specialty Start Date End Date Leia Doyle, [address] [facility] 2 [place] [address] PCP - General Family Medicine 08/03/22 documented as of this encounter
--- OUTSIDE RECORDS SUMMARY | 2023-08-12 14:25 | External Medical Summary | Summary of Care ---
Author Name Unknown Organization [facility] Address [address] [place] [address] Phone [phone] Care [address] Attendant Name Role Phone Leia Doyle DO Primary Care Provider +1- [phone] Encounter Details Date Type Department Care Team Description 06/23/2023 Orders Only Unspecified Department Leia Doyle DO [address] [place] [address] Allergies Active Allergy Reactions Severity Noted Date [...] interpreted or resulted by a [facility] or [employer] contracted radiologist. Leia Doyle DO RAD CT documented in this encounter Advance Directives Latest Code Status on File Code Status Date Activated Date Inactivated Comments Full Code 03/13/2022 2:27 AM 03/20/2022 7:20 PM This order reflects the patients wishes and were consensually agreed upon. Care Teams Lane Attendant Relationship Specialty Start Date End Date Leia Doyle, [address] [facility] [address] [place] [address] PCP - General Family Medicine 08/03/22 documented as of this encounter
--- OUTSIDE RECORDS SUMMARY | 2023-08-12 14:25 | External Medical Summary | Summary of Care ---
Author Name Unknown Organization [facility] Address [address] [place] [address] Phone [phone] Care Team Providers Care Sewing Pattern Layout Technician Name Role Phone Leia Doyle DO Primary Care Provider +1- [phone] Encounter Details Date Type Department Care Team Description 06/15/2023 Orders Only Unspecified Department Leia Doyle DO [address] [place] [address] Allergies Active Allergy Reactions Severity Noted Date [...] study not interpreted or resulted by a [facility] or [employer] contracted radiologist. Leia Doyle DO RAD CT documented in this encounter Advance Directives Latest Code Status on File Code Status Date Activated Date Inactivated Comments Full Code 03/13/2022 2:27 AM 03/20/2022 7:20 PM This order reflects the patients wishes and were consensually agreed upon. Care Teams Sewing Pattern Layout Technician Relationship Specialty Start Date End Date Leia Doyle, [address] [facility] [address] [place] [address] PCP - General Family Medicine 08/03/22 documented as of this encounter
[2023-08-12] MEDS: DICLOFENAC SOD 1% GEL 100 GM TUBE EXT SCH (21:33)
[2023-08-12] MEDS: VENLAFAXINE HCL XR 150 MG CAPXR PO SCH (21:34)
[2023-08-12] MEDS: VENLAFAXINE HCL XR 75 MG CAPXR PO SCH (21:34)
[2023-08-12 22:27] LABS: Hematocrit (blood only) 33.5 % (37.0-47.0); Hemoglobin 11.2 g/dl (12.0-16.0); Mean Corpuscular Hgb Conc 33.4 g/dL (32.0-36.0); Mean Corpuscular Volume 83.8 fL (80.0-100.0); Mean Platelet Volume 10.8 fL (9.4-12.4); Platelet Count 182 K/uL (130-400); RDW Coefficient of Variation 15.6 % (11.5-14.5); RDW Standard Deviation 46.8 fL (36.4-46.3)
[2023-08-13] MEDS: ACETAMINOPHEN 500 MG TAB PO PRN (02:59)
[2023-08-13 07:38] LABS: Basophils # (auto) 0.03 K/uL (0.00-0.20); Basophils % (auto) 0.5 %; Eosinophils # (auto) 0.21 K/uL (0.00-0.50); Eosinophils % (auto) 3.7 %; Hemoglobin 10.3 g/dl (12.0-16.0); Immature Granulocytes # (auto) 0.07 K/uL (0.01-0.20); Immature Granulocytes % (auto) 1.2 %; Lymphocytes % (auto) 30.2 %; Mean Corpuscular Hemoglobin 27.5 pg (25.0-34.0); Mean Corpuscular Hgb Conc 33.2 g/dL (32.0-36.0); Mean Corpuscular Volume 82.7 fL (80.0-100.0); Mean Platelet Volume 10.8 fL (9.4-12.4); Monocytes # (auto) 0.42 K/uL (0.11-0.59); Monocytes % (auto) 7.5 %; Neutrophils # (auto) 3.19 K/uL (1.40-6.50); Neutrophils % (auto) 56.9 %; Platelet Count 158 K/uL (130-400); RDW Coefficient of Variation 15.7 % (11.5-14.5); RDW Standard Deviation 47.1 fL (36.4-46.3); Red Blood Count 3.75 M/uL (4.20-5.40); White Blood Count 5.62 K/ul (4.8-10.8)
[2023-08-13 08:05] LABS: Albumin Globulin Ratio 1.3 (0.9-2); Albumin Level 3.5 gm/dl (3.4-5.0); BUN Creatinine Ratio 24.4 (10-20); Bilirubin,Total 0.9 mg/dl (0.2-1.0); Calcium 9.1 mg/dl (8.6-10.3); Creatinine Clr Calc Pharmacy 37.4 ml/min; Est GFR (African American) 55.9 ml/min; Est GFR (Non-African American) 48.2 ml/min; Globulin 2.6 gm/dl (2.5-4.0); Magnesium 1.8 mg/dl (1.7-2.4); Potassium 3.6 mmol/L (3.5-5.1); Total Protein 6.1 gm/dl (6.0-8.3)
[2023-08-13] MEDS: INSULIN ASPART PER UNIT CHARGE SC SCH ×4 (08:10→20:19)
[2023-08-13] MEDS ORDERED: POTASSIUM CHLORIDE 10 MEQ TABCR PO STA (08:33)
--- NOTE | 2023-08-13 08:34 | Hospitalist Progress Note ---
Date of Service August 13, 2023 Assessment & Plan (1) Generalized weakness: Plan: Pt is a 63 yo female with a past medical history of anxiety/depression, a fib, DMT2 on insulin, HTN, liver cirrhosis, hx cryptococcal meningitis, hx DVT who presented to the hospital after recent discharge on 08/01 for UTI/hallucination for complaints of increased abdominal pain/rectal discomfort/cramping x 2 days without BM and wanting placement for weakness as found in urine/stool at current facility at [facility] Deconditioning/Fecal impaction/Constipation/Fall Noting to have completed treatment for UTI 08/02 w/ bactrim Patient reported having fall prior to admission, has some bruising to sacrum - Imaging w/ possible lucency S3, ?fracture. Pain control/topical voltaren. Likely non-opertaive. No acute pain reported today Bowel regimen w/ miralax continued - will increase to BID Repeat UA/cx obtained given prior suprapubic discomfort Placed on Ceftriaxone for now - Urine cx pin-point growth/re-incubating and will continue abx/monitor cx PT/OT consulted, rec SNF. Pt reported wanting [facility]. [facility] identified, psych consulted, cleared for placement. (2) GI bleeding: Plan: BRBPR/Anemia (chronic anemia for several months in system, on eliquis) reported BRBPR w/ BM after initial constipation/enema in ER w/ large amount of stool passing and reported feeling much better ?hemorrhoidal vs other-- patient w/ chronic anemia (hgb in 7-8 for past several months) On eliquis for hx paroxysmal afib/also DVT/PE last summer w/ her meningitis (not on chemoproph during stay due to need for LP, suspect provoked in setting infection, has completed 1yr) Fecal occult obtained, POSITIVE (?hemorrhoidal, diverticular vs other - does have hx gastric ulcer but reporting bright red blood per rectum on toilet paper over the past several weeks) Does have some external hemorrhoids on exam. Eliquis placed on HOLD Iron studies obtained - Iron LOW 23, unsaturated IBC elevated 369, trans % sat 6, ferritin 15.4. - Venofer provided 08/11, repeated 08/12 - B12/folate wnl (B12 prior low at 129 in January) PPI continued BID GI consulted -- no inpatient scope planned, will need outpatient follow up for scopes Type/screen/cross x 2 units on 08/12, blood consent obtained at direction of supervising provider. Hgb stable and improved to 10.3 and will monitor. No further bleeding reported Miralax increased to BID to prevent constipation, consider lactulose if needed (ammonia was wnl) Monitor CBC in AM/sooner if any bleeding reported (3) Fecal impaction in rectum: Plan: s/p enema in ER w/ large amount of stool. additional bowel movements list (4) Anemia: Plan: acute on chronic, in setting of eliquis (on hold) s/p 2 U PRBC, hgb stable and improved (5) Cirrhosis of liver: Plan: last noted on abd CT 06/18. per GI, from fatty liver Limit hepatotoxins, dose appropriate as needed Could consider lactulose if issues w constipation. Ammonia level acceptable Needs outpt GI follow up (6) Paroxysmal A-fib: Plan: A fib, paroxysmal Eliquis continued on admission, placed on hold 2nd to above for +fecal occult testing/anemia, [facility] as above Keep K/mag replete (placed on mag oxide, should assist w/ constipation as well) SCDs added for DVT prophylaxis (7) Diabetes mellitus type 2, insulin dependent: Plan: DMT2, insulin dependent Last HA1c 02/15 was 10.8%. 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, hallucinations pt feeling well, no URI symptoms or headache this admission, afebrile, WBC count normal pt not concerning for recurrence at this time for related hallucinations, continue home Seroquel also to be on fluconazole daily prophylaxis, added (dose reduced for renal function to 200mg daily) (9) Hypertension: Plan: HTN continue home metoprolol home lasix prn on hold (takes prn edema) BP 111/69 (10) Depression: Plan: Depression - continue home venlafaxine (dose adjusted as taking at home, 150+75mg HS) - mood stable at present and improved compared to days prior (11) Anxiety: Plan: as above, venlafaxine (12) Gastritis: Plan: Continue home pantoprazole PO BID for now. GI consulted as above, PRBC/venofer as outlined Rec f/u GI at [facility] for screening scopes if not completed while inpatient No increased upper GI discomfort/reflux reported. Hx gastric ulcer (13) Constipation: Plan: moving her bowels daily (none today), increased miralax BID to prevent worsened constipation (14) Sacral fracture: Plan: possible, noted lucency on imaging. pain control, nonoperative pt/ot and SNF planned at id Plan [facility] planning for at [facility]. Patient identified as [facility], CM following. Continued inpatient stay until [facility] process completed Admission and Anticipated Discharge Date Admission Date: August 12, 2023 Supervising Physician Co-Signing Physician Notes The patient was not seen by me. The chart was reviewed. Case discussed with ETIENNE Rodriguez. Agree with assessment and plan Subjective Evaluated this morning, hemoglobin improved and stable. No further bleeding reported. Patient appearing improved, improved energy/appetite reported and abdominal pain/cramping resolved. Seen by psych yesterday, planning for SNF at discharge once completed process by case management. Denies any fever/chills, chest pain, shortness of breath or nausea at this time. Discussed continued off of her eliquis for now, timing to be determined about resuming this w/ risk of bleeding and possible further discussion w/ cards in follow up. Questions/concerns addressed at this time. Physical Exam 2 Physical Exam: General: WD/WN female resting in bed, NAD, pallor improved HEENT: head atraumatic, normocephalic, mmm, trachea midline Resp: CTA, no w/c/r, on room air CV: RRR, no significant mrg, no pitting edema/calf tenderness GI: +BS, soft/NT recal: 2-3 external, nonbleeding hemorrhoids noted : no aviles MSK/Neuro: no focal deficit, no slurred speech/facial droop mild bruising/ecchymosis to sacral region Psych: alert/oriented x 3, cooperative with exam Results & Data Results & Data Vital Signs (Past 12 Hours) Vital Signs Temp Pulse Resp BP Pulse Ox O2 Del Method 08/13/23 07:35 36.5 C 68 16 111/69 98 Room Air 08/13/23 00:11 36.5 C 75 20 109/75 99 Room Air 08/12/23 21:36 75 136/79 Laboratory Results 08/13/23 06:41 08/13/23 06:41 PG Care Time/CCT Total # of Minutes Spent Total Time Spent with Patient: Total time spent is greater than 50% in coordination of care (as documented) at patient's floor/unit and/or counseling patient: Coding Level of Care Code 86343 SUB INP/OBS CARE 2/35MIN Diagnoses Generalized weakness R53.1 GI bleeding K92.2 Fecal impaction in rectum K56.41 Anemia D62 Anemia type: other cause Other causes of anemia: acute posthemorrhagic Cirrhosis of liver K74.60 Paroxysmal A-fib I48.0 Diabetes mellitus type 2, insulin dependent E11.9; Z79.4 Cryptococcal meningitis B45.1 Essential hypertension I10 Hypertension type: essential hypertension Depression, unspecified depression type F32.9 Depression Type: unspecified Anxiety F41.9 Gastritis K29.70 Constipation K59.00 Constipation type: unspecified constipation type Sacral fracture S32.10XA (4) Anemia Anemia type: other cause Other causes of anemia: acute posthemorrhagic Qualified Code(s): D62 - Acute posthemorrhagic anemia (9) Hypertension Hypertension type: essential hypertension Qualified Code(s): I10 - Essential (primary) hypertension (10) Depression Depression Type: unspecified Qualified Code(s): F32.9 - Major depressive disorder, single episode, unspecified (13) Constipation Constipation type: unspecified constipation type Qualified Code(s): K59.00 - Constipation, unspecified
[2023-08-13] MEDS: QUEtiapine FUMARATE 25 MG TABLET PO SCH ×2 (08:35→20:54)
[2023-08-13] MEDS: PANTOprazole 40 MG TAB PO SCH ×2 (08:35→20:54)
[2023-08-13] MEDS: FLUCONAZOLE 100 MG TAB PO SCH (08:35)
[2023-08-13] MEDS: CETIRIZINE HCL 10 MG TABLET PO SCH (08:36)
[2023-08-13] MEDS: METOPROLOL SUCC 25MG EXT REL TAB PO SCH ×2 (08:36→20:53)
[2023-08-13] MEDS: MAGNESIUM OXIDE 400 MG TAB PO SCH ×2 (08:36→20:53)
[2023-08-13] MEDS: POLYETHYLENE (MIRALAX) 17 GM PACK PO SCH ×2 (08:36→20:55)
[2023-08-13] MEDS: DICLOFENAC SOD 1% GEL 100 GM TUBE EXT SCH ×2 (08:36→20:55)
[2023-08-13] MEDS: LANTUS PER UNIT CHARGE SQ SCH ×2 (08:40→20:59)
[2023-08-13] MEDS: cefTRIAXone SODIUM 1,000 MG in DEXTROSE 5 % MINI-B 50 ML IV SCH (09:21)
[2023-08-13] MEDS: VENLAFAXINE HCL XR 150 MG CAPXR PO SCH (20:53)
[2023-08-13] MEDS: VENLAFAXINE HCL XR 75 MG CAPXR PO SCH (20:54)
[2023-08-14 07:42] LABS: Hemoglobin 10.6 g/dl (12.0-16.0); Mean Corpuscular Hemoglobin 27.9 pg (25.0-34.0); Mean Corpuscular Hgb Conc 33.1 g/dL (32.0-36.0); Mean Corpuscular Volume 84.2 fL (80.0-100.0); Mean Platelet Volume 11.3 fL (9.4-12.4); Platelet Count 164 K/uL (130-400); RDW Coefficient of Variation 16.3 % (11.5-14.5); RDW Standard Deviation 49.1 fL (36.4-46.3); White Blood Count 4.33 K/ul (4.8-10.8)
[2023-08-14 08:09] LABS: Albumin Globulin Ratio 1.3 (0.9-2); Albumin Level 3.4 gm/dl (3.4-5.0); BUN Creatinine Ratio 34.1 (10-20); Bilirubin,Total 0.5 mg/dl (0.2-1.0); Calcium 8.9 mg/dl (8.6-10.3); Creatinine Clr Calc Pharmacy 48.9 ml/min; Est GFR (African American) 77.3 ml/min; Est GFR (Non-African American) 66.7 ml/min; Globulin 2.7 gm/dl (2.5-4.0); Magnesium 1.9 mg/dl (1.7-2.4); Potassium 3.8 mmol/L (3.5-5.1); Total Protein 6.1 gm/dl (6.0-8.3)
[2023-08-14] MEDS: METOPROLOL SUCC 25MG EXT REL TAB PO SCH ×2 (08:22→20:32)
[2023-08-14] MEDS: DICLOFENAC SOD 1% GEL 100 GM TUBE EXT SCH ×2 (08:22→20:34)
[2023-08-14] MEDS: FLUCONAZOLE 100 MG TAB PO SCH (08:22)
[2023-08-14] MEDS: MAGNESIUM OXIDE 400 MG TAB PO SCH ×2 (08:22→20:34)
[2023-08-14] MEDS: PANTOprazole 40 MG TAB PO SCH ×2 (08:22→20:33)
[2023-08-14] MEDS: QUEtiapine FUMARATE 25 MG TABLET PO SCH ×2 (08:22→20:33)
[2023-08-14] MEDS: POLYETHYLENE (MIRALAX) 17 GM PACK PO SCH ×2 (08:22→20:35)
[2023-08-14] MEDS: CETIRIZINE HCL 10 MG TABLET PO SCH (08:23)
[2023-08-14] MEDS: LANTUS PER UNIT CHARGE SQ SCH ×2 (08:30→20:34)
[2023-08-14] MEDS: INSULIN ASPART PER UNIT CHARGE SC SCH ×4 (08:30→20:34)
--- NOTE | 2023-08-14 09:07 | Hospitalist Progress Note ---
Date of Service August 14, 2023 Assessment & Plan (1) Generalized weakness: Plan: Pt is a 63 yo female with a past medical history of anxiety/depression, a fib, DMT2 on insulin, HTN, liver cirrhosis, hx cryptococcal meningitis, hx DVT who presented to the hospital after recent discharge on 08/01 for UTI/hallucination for complaints of increased abdominal pain/rectal discomfort/cramping x 2 days without BM and wanting placement for weakness as found in urine/stool at current facility at [facility] Deconditioning/Fecal impaction/Constipation/Fall Noting to have completed treatment for UTI 08/02 w/ bactrim Patient reported having fall prior to admission, has some bruising to sacrum - Imaging w/ possible lucency S3, ?fracture. Pain control/topical voltaren. Likely non-operative. No acute pain reported today Bowel regimen w/ miralax continued - will increase to BID. Lactulose x 1 ordered as no documented bowel movements but patient reported having them, no abdominal pain today Repeat UA/cx obtained given prior suprapubic discomfort Placed on Ceftriaxone and urine w/ pin-point growth --> now w/ >3 organisms, repeat recommended -- ordered. Continue abx for now PT/OT consulted, rec SNF. Pt reported wanting [facility]. [facility] identified, psych consulted, cleared for placement. See below regarding anemia/GI bleeding concerns (2) GI bleeding: Plan: BRBPR/Anemia (chronic anemia for several months in system, on eliquis)/Hx Cirrhosis reported BRBPR w/ BM after initial constipation/enema in ER w/ large amount of stool passing and reported feeling much better ?hemorrhoidal vs other-- patient w/ chronic anemia (hgb in 7-8 for past several months) DID GET 1U PRBC LAST ADMISSION this past month as well On eliquis for hx paroxysmal afib/also DVT/PE last summer w/ her meningitis (not on chemoproph during stay due to need for LP, suspect provoked in setting infection, has completed 1yr) Fecal occult obtained, POSITIVE (?hemorrhoidal, diverticular vs other - does have hx gastric ulcer but reporting bright red blood per rectum on toilet paper over the past several weeks) Does have some external hemorrhoids on exam. Eliquis placed on HOLD, SCDs ordered in meantime Iron studies obtained - Iron LOW 23, unsaturated IBC elevated 369, trans % sat 6, ferritin 15.4. - Venofer provided 08/11, repeated 08/12 - B12/folate wnl (B12 prior low at 129 in January) s/p 2u PRBC on 08/12 w/ improvement in hemoglobin/stable (reports feeling the best she has in quite some time) PPI continued BID, ADDED CARAFATE given prior reports improvement/some pain w/ swallowing at times GI consulted -- no inpatient scope planned, will need outpatient follow up for scopes. Asked to see again given prior admit/transfusion/abd pain/bora last admission in cirrhotic patient. Per Dr Salas, hgb stable and they will continue to monitor. No inpatient scope at this time but if bleeding/need to consider. Ceftriaxone above for possible UTI should also cover any bleeding/GI issues in cirrhotic and will continue for now Lasix 20mg PO resumed for today, can change to prn for tomorrow as needed for weight gain (got 40mg IV w/ PRBC prior) Monitor CBC/for any bleeding (3) Fecal impaction in rectum: Plan: s/p enema in ER w/ large amount of stool. additional bowel movements reported without bleeding (4) Anemia: Plan: acute on chronic, in setting of eliquis (on hold) s/p 2 U PRBC, hgb stable and improved (5) Cirrhosis of liver: Plan: last noted on abd CT 06/18. per GI, from fatty liver Limit hepatotoxins, dose appropriate as needed Could consider lactulose if issues w constipation. Ammonia level acceptable Needs outpt GI follow up (6) Paroxysmal A-fib: Plan: A fib, paroxysmal Eliquis continued on admission, placed on hold 2nd to above for +fecal occult testing/anemia, PBRC as above Keep K/mag replete (placed on mag oxide, should assist w/ constipation as well) SCDs added for DVT prophylaxis (7) Diabetes mellitus type 2, insulin dependent: Plan: DMT2, insulin dependent Last HA1c 02/15 was 10.8%. 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, hallucinations pt feeling well, no URI symptoms or headache this admission, afebrile, WBC count normal pt not concerning for recurrence at this time for related hallucinations, continue home Seroquel also to be on fluconazole daily prophylaxis, added (dose reduced for renal function to 200mg daily) (9) Hypertension: Plan: HTN continue home metoprolol home lasix prn on hold (takes prn edema) BP 149/89 giving 20mg po lasix, monitor response (10) Depression: Plan: Depression - continue home venlafaxine (dose adjusted as taking at home, 150+75mg HS) - mood stable at present and improved (11) Anxiety: Plan: as above, venlafaxine (12) Gastritis: Plan: Continue home pantoprazole PO BID for now. GI consulted as above, PRBC/venofer as outlined Rec f/u GI at ar for screening scopes if not completed while inpatient Restarted carafate given prior improvement, GI consulted/following as above (13) Constipation: Plan: moving her bowels daily (none today), increased miralax BID to prevent worsened constipation and not reporting any increased bleeding at present time. Hgb stable on repeat (14) Sacral fracture: Plan: possible, noted lucency on imaging. pain control, nonoperative pt/ot and SNF planned at ar Plan [facility] planning for at [facility]. Patient identified as [facility], CM following. Continued inpatient stay until [facility] process completed Admission and Anticipated Discharge Date Admission Date: August 12, 2023 Supervising Physician Co-Signing Physician Notes The patient was not seen by me. The chart was reviewed. Case discussed with ETIENNE Rodriguez. Agree with assessment and plan Subjective eval this morning, feeling the best she has in weeks. denies any abdominal pain at present. no further bowel movements noted, but does have some fatigue. she notes being back on her lasix, however has not been ordered but checking weights. No increased leg edema/calf tenderness at present. Abdomen slightly distended but no significant tenderness at present. Dose of lactulose for assistance with bowel movement. Physical Exam 2 Physical Exam: General: WD/WN female resting in bed, NAD, pallor improved HEENT: head atraumatic, normocephalic, mmm, trachea midline Resp: CTA, no w/c/r, on room air CV: RRR, no significant mrg, no pitting edema/calf tenderness GI: +BS, soft/NT rectal exam w/ 2-3 external, nonbleeding hemorrhoids noted (not examined today) : no aviles MSK/Neuro: no focal deficit, no slurred speech/facial droop mild bruising/ecchymosis to sacral region Psych: alert/oriented x 3, cooperative with exam Results & Data Results & Data Vital Signs (Past 12 Hours) Vital Signs Temp Pulse Resp BP Pulse Ox O2 Del Method 08/14/23 07:03 36.8 C 65 16 149/89 H 98 Room Air Laboratory Results 08/14/23 07:12 08/14/23 07:12 PG Care Time/CCT Total # of Minutes Spent Total Time Spent with Patient: Total time spent is greater than 50% in coordination of care (as documented) at patient's floor/unit and/or counseling patient: Coding Level of Care Code 56979 SUB INP/OBS CARE 2/35MIN Diagnoses Generalized weakness R53.1 GI bleeding K92.2 Fecal impaction in rectum K56.41 Anemia D62 Anemia type: other cause Other causes of anemia: acute posthemorrhagic Cirrhosis of liver K74.60 Paroxysmal A-fib I48.0 Diabetes mellitus type 2, insulin dependent E11.9; Z79.4 Cryptococcal meningitis B45.1 Essential hypertension I10 Hypertension type: essential hypertension Depression, unspecified depression type F32.9 Depression Type: unspecified Anxiety F41.9 Gastritis K29.70 Constipation K59.00 Constipation type: unspecified constipation type Sacral fracture S32.10XA (4) Anemia Anemia type: other cause Other causes of anemia: acute posthemorrhagic Qualified Code(s): D62 - Acute posthemorrhagic anemia (9) Hypertension Hypertension type: essential hypertension Qualified Code(s): I10 - Essential (primary) hypertension (10) Depression Depression Type: unspecified Qualified Code(s): F32.9 - Major depressive disorder, single episode, unspecified (13) Constipation Constipation type: unspecified constipation type Qualified Code(s): K59.00 - Constipation, unspecified
[2023-08-14] MEDS ORDERED: LACTULOSE SYRUP 20 GM/30 ML UDC PO ONE (09:58)
[2023-08-14] MEDS: cefTRIAXone SODIUM 1,000 MG in DEXTROSE 5 % MINI-B 50 ML IV SCH (10:02)
[2023-08-14] MEDS ORDERED: FUROSEMIDE 20 MG TAB PO SCH (14:15)
[2023-08-14] MEDS: SUCRALFATE 1 GM/10 ML UDC PO SCH ×2 (16:20→20:35)
[2023-08-14 18:18] LABS: Appearance Urine Clear (Clear); Bacteria Urine Automated Negative (Negative); Bilirubin Urine Negative (Negative); Blood Urine Negative (Negative); Color Urine Dark Yellow; Glucose Urine UA Negative (Negative); Ketones Urine Trace (Negative); Leukocyte Esterase Urine Negative (Negative); Nitrite Urine Negative (Negative); Protein Urine 1+ (Negative); RBC Urine Automated 0-4 /hpf (0-4); Specific Gravity Urine 1.022 (1.000-1.030); Urobilinogen Urine Negative (Negative)
[2023-08-14] MEDS: VENLAFAXINE HCL XR 150 MG CAPXR PO SCH (20:33)
[2023-08-14] MEDS: VENLAFAXINE HCL XR 75 MG CAPXR PO SCH (20:33)
[2023-08-15 06:45] LABS: Hematocrit (blood only) 31.1 % (37.0-47.0); Hemoglobin 10.1 g/dl (12.0-16.0); Mean Corpuscular Hemoglobin 28.1 pg (25.0-34.0); Mean Corpuscular Hgb Conc 32.5 g/dL (32.0-36.0); Mean Corpuscular Volume 86.4 fL (80.0-100.0); Mean Platelet Volume 11.7 fL (9.4-12.4); Platelet Count 160 K/uL (130-400); RDW Coefficient of Variation 16.3 % (11.5-14.5); White Blood Count 5.14 K/ul (4.8-10.8)
[2023-08-15] MEDS: FLUCONAZOLE 100 MG TAB PO SCH (07:45)
[2023-08-15] MEDS: DICLOFENAC SOD 1% GEL 100 GM TUBE EXT SCH ×2 (07:45→20:26)
[2023-08-15] MEDS: MAGNESIUM OXIDE 400 MG TAB PO SCH ×2 (07:45→20:40)
[2023-08-15] MEDS: CETIRIZINE HCL 10 MG TABLET PO SCH (07:45)
[2023-08-15] MEDS: METOPROLOL SUCC 25MG EXT REL TAB PO SCH ×2 (07:46→20:39)
[2023-08-15] MEDS: QUEtiapine FUMARATE 25 MG TABLET PO SCH ×2 (07:46→20:40)
[2023-08-15] MEDS: SUCRALFATE 1 GM/10 ML UDC PO SCH ×4 (07:46→20:39)
[2023-08-15] MEDS: PANTOprazole 40 MG TAB PO SCH ×2 (07:46→20:38)
[2023-08-15] MEDS: POLYETHYLENE (MIRALAX) 17 GM PACK PO SCH ×2 (07:47→20:33)
[2023-08-15 07:51] LABS: Albumin Level 3.3 gm/dl (3.4-5.0); Bilirubin Direct 0.1 mg/dl (0-0.2); Bilirubin,Total 0.4 mg/dl (0.2-1.0); Calcium 8.8 mg/dl (8.6-10.3); Magnesium 1.7 mg/dl (1.7-2.4); Potassium 3.6 mmol/L (3.5-5.1)
[2023-08-15 07:57] LABS: BUN Creatinine Ratio 25.7 (10-20); Est GFR (African American) 68.1 ml/min; Est GFR (Non-African American) 58.8 ml/min; Total Protein 5.9 gm/dl (6.0-8.3)
[2023-08-15] MEDS: INSULIN ASPART PER UNIT CHARGE SC SCH ×4 (07:59→20:31)
[2023-08-15] MEDS: LANTUS PER UNIT CHARGE SQ SCH ×2 (07:59→20:31)
--- NOTE | 2023-08-15 08:15 | Hospitalist Progress Note ---
Date of Service August 15, 2023 Assessment & Plan (1) Generalized weakness: Plan: Pt is a 63 yo female with a past medical history of anxiety/depression, a fib, DMT2 on insulin, HTN, liver cirrhosis, hx cryptococcal meningitis, hx DVT who presented to the hospital after recent discharge on 08/01 for UTI/hallucination for complaints of increased abdominal pain/rectal discomfort/cramping x 2 days without BM and wanting placement for weakness as found in urine/stool at current facility at [facility] Deconditioning/Fecal impaction/Constipation/Fall Noting to have completed treatment for UTI 08/02 w/ bactrim Patient reported having fall prior to admission, has some bruising to sacrum - Imaging w/ possible lucency S3, ?fracture. Pain control/topical voltaren. Likely non-operative. No acute pain reported today Noting possible area avascular necrosis R femoral head Bowel regimen w/ miralax continued - will increase to BID. Lactulose x 1, schedule daily as reporting moving bowels but no documented/witness and more distended today (however reported no pain) s/p 2u PRBC for anemia/blood per rectum/+fecal occult/GI consulted as below. Repeat urine cx pending, continued Ceftriaxone for now given improvement and susp for such. ?some bleeding reported/passed stone. No urinary/renal calculi on KUB but does have phleboliths Therapy evals rec SNF, [facility]. [facility] consulted/cleared. CM following and waiting placement (patient wanting [facility]) (2) GI bleeding: Plan: BRBPR/Anemia (chronic anemia for several months in system, on eliquis)/Hx Cirrhosis reported BRBPR w/ BM after initial constipation/enema in ER w/ large amount of stool passing and reported feeling much better ?hemorrhoidal vs other-- - patient w/ chronic anemia (hgb in 7-8 for past several months) DID GET 1U PRBC LAST ADMISSION this past month as well Eliquis at baseline for hx paroxsymal afib (also DVT/PE last summer w/ admit for meningitis not on chemo proph during extensive stay as need for LP, has completed 1 yr. No hypotension/hypoxia or increased leg swelling/pain) Placed eliquis on HOLD (SCDs ordered in meantime) Iron studies obtained, low iron/trans % sat 6, ferriting 15.4. Venofer x 2 but did discuss w/ supervising provider and s/p 2u PRBC for bleeding per rectum/drop in hgb. Remains on PPI BID, carafate added back for prior gastritis w/ reported improvement B12/folate wnl GI consulted -- no inpatient scope planned, will need outpatient follow up for scopes. Asked to see again given prior admit/transfusion/abd pain/bora last admission in cirrhotic patient. Per Case, hgb stable and they will continue to monitor. No inpatient scope at this time but if bleeding/need to consider. Ceftriaxone above for possible UTI should also cover any bleeding/GI issues in cirrhotic and will continue for now/repeat urine pending (noting no blood cx on admission), but WBC wnl/afebrile Increased bowel regimen , miralax BID. Lactulose ordered for today for ongoing constipation issue Did note fall prior to admit/possible S3 fracture and suspect contributing to her constipation. Also cannot r/o gastroparesis w/ her diabetes contributing Monitor for any further bleeding, CBC in AM (Stable compared to priors/no further bleeding reported) (3) Fecal impaction in rectum: Plan: s/p enema in ER w/ large amount of stool. additional bowel movements reported without bleeding however not witnessed may need to consider lumbar spine imaging given possible fracture however denied saddle paresthesias at present bowel regimen increased as above, lactulose ordered (4) Anemia: Plan: acute on chronic, in setting of eliquis (on hold) s/p 2 U PRBC, hgb stable monitor for any further bleeding (5) Cirrhosis of liver: Plan: last noted on abd CT 06/18. per GI, from fatty liver Limit hepatotoxins, dose appropriate as needed Lactulose ordered to assist w/ bowel movements. Ammonia level wnl previously. NO tremor appreciated at present GI consulted inpatient and will need f/u. AFP pending (6) Paroxysmal A-fib: Plan: A fib, paroxysmal Eliquis continued on admission, placed on hold 2nd to above for +fecal occult testing/anemia, PBRC as above Appearing NSR on exam Keep K/mag replete (placed on mag oxide, should assist w/ constipation as well) SCDs added for DVT prophylaxis (7) Diabetes mellitus type 2, insulin dependent: Plan: DMT2, insulin dependent Last HA1c 02/15 was 10.8%. BSG 149 on POC on arrival Home regimen listed as glargine 15u BID, however suspect given repeat A1c 6.5 likely needing decreased needs at discharge however, note A1c in setting of anemia. would repeat in 3 months Continue lantus 10 u BID for now, DM diet (BSGs have been low 100/110s) Monitor insulin needs/adjustment at dc as needed (8) Cryptococcal meningitis: Plan: Hx recurrent cryptococcal meningitis, hallucinations pt feeling well, no URI symptoms or headache this admission, afebrile, WBC count normal pt not concerning for recurrence at this time for related hallucinations, continue home Seroquel also to be on fluconazole daily prophylaxis, added (dose reduced for renal function to 200mg daily -- will need adjustment at dc) (9) Hypertension: Plan: HTN continue home metoprolol home lasix prn on hold (takes prn edema) BP 118/76 (10) Depression: Plan: Depression - continue home venlafaxine (dose adjusted as taking at home, 150+75mg HS) - mood stable at present and improved (11) Anxiety: Plan: as above, venlafaxine (12) Gastritis: Plan: Continue home pantoprazole PO BID for now. GI consulted as above, PRBC/venofer as outlined Rec f/u GI at [facility] for screening scopes if not completed while inpatient Restarted carafate given prior improvement, GI consulted/following as above (13) Constipation: Plan: moving her bowels daily (none today), increased miralax BID to prevent worsened constipation and not reporting any increased bleeding at present time. Hgb stable on repeat lactulose ordered for today, KUB w/ stool burden noted (14) Sacral fracture: Plan: possible, noted lucency on imaging. pain control, nonoperative pt/ot and SNF planned at [facility] consider lumbar spine imaging if any ongoing issues w/ bowel movements. Had bladder scan for 600cc but RN taken to bathroom and voided this. Denied saddle paresthesia Plan Patient identified as [facility], CM following until process completed/bed at [facility] monitor bowels/cbc Admission and Anticipated Discharge Date Admission Date: August 12, 2023 Supervising Physician Co-Signing Physician Notes The patient was not seen by me. The chart was reviewed. Case discussed with ETIENNE Rodriguez. Agree with assessment and plan Subjective eval this morning, sitting up at the side of the bed. reporting going to get a shower today. She reports moving her bowels/darker in color but no observed darkend stools. Hgb 10.1 from 10.6 but denies any increased shortness of breath or abdominal pain. Reports some blood to her urine, repeat ua ordered and abx continued in the meantime/GI following. Asking nursing to bladder scan to eval for any retention, will also check KUB to eval stool burden. No fever/chills, chest pain. Per nursing, numerous stacks brought in by family last evening, insulin adjustments made. Discussed while A1c improved, in setting of anemia could be falsely low and recommending repeat w/ PCP in 3 months. Questions/concerns addressed, continues to wait for SNF, CM following. Physical Exam 2 Physical Exam: General: WD/WN female resting in bed, NAD, pallor improved, reporting feeling well, wanting to get a shower HEENT: head atraumatic, normocephalic, mmm, trachea midline Resp: CTA, no w/c/r, on room air CV: RRR, no significant mrg, no pitting edema/calf tenderness GI: +BS, soft --> SLIGHTLY MORE DISTENDED TODAY but NONTENDER rectal exam w/ 2-3 external, nonbleeding hemorrhoids noted (not examined today) : no aviles MSK/Neuro: no focal deficit, no slurred speech/facial droop mild bruising/ecchymosis to sacral region Psych: alert/oriented x 3, cooperative with exam Results & Data Results & Data Vital Signs (Past 12 Hours) Vital Signs Temp Pulse Resp BP Pulse Ox O2 Del Method 08/15/23 07:37 36.5 C 71 16 118/76 97 Room Air Laboratory Results 08/15/23 05:36 08/15/23 05:36 Diagnostic Findings KUB X-Ray 08/15/23 09:26 KUB HISTORY: eval stool burden COMPARISON: KUB 07/09/2023. FINDINGS: The bowel gas pattern is unremarkable. There are no dilated loops of small bowel to suggest an obstruction. No renal calculi. No ureteral calculi. Calcifications in the deep pelvis likely represent phleboliths. These remain unchanged. There is a left total hip arthroplasty again noted. Prior cholecystectomy. Moderate fecal retention is again noted. This has progressed within the distal colon/rectum. 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 No evidence for articular collapse.. No pneumoperitoneum or pneumatosis. IMPRESSION: 1. Nonobstructive bowel gas pattern. 2. Moderate fecal retention. This has progressed within the distal colon/rectum. 3. Additional findings as described above. ACT 112: Negative or not required by law. Electronically signed by: Coleman Teixeira M.D. 08/15/2023 11:04 AM PG Care Time/CCT Total # of Minutes Spent Total Time Spent with Patient: Total time spent is greater than 50% in coordination of care (as documented) at patient's floor/unit and/or counseling patient: Coding Level of Care Code 13180 SUB INP/OBS CARE 3/50MIN Diagnoses Generalized weakness R53.1 GI bleeding K92.2 Fecal impaction in rectum K56.41 Anemia D62 Anemia type: other cause Other causes of anemia: acute posthemorrhagic Cirrhosis of liver K74.60 Paroxysmal A-fib I48.0 Diabetes mellitus type 2, insulin dependent E11.9; Z79.4 Cryptococcal meningitis B45.1 Essential hypertension I10 Hypertension type: essential hypertension Depression, unspecified depression type F32.9 Depression Type: unspecified Anxiety F41.9 Gastritis K29.70 Constipation K59.00 Constipation type: unspecified constipation type Sacral fracture S32.10XA (4) Anemia Anemia type: other cause Other causes of anemia: acute posthemorrhagic Qualified Code(s): D62 - Acute posthemorrhagic anemia (9) Hypertension Hypertension type: essential hypertension Qualified Code(s): I10 - Essential (primary) hypertension (10) Depression Depression Type: unspecified Qualified Code(s): F32.9 - Major depressive disorder, single episode, unspecified (13) Constipation Constipation type: unspecified constipation type Qualified Code(s): K59.00 - Constipation, unspecified
[2023-08-15] MEDS: cefTRIAXone SODIUM 1,000 MG in DEXTROSE 5 % MINI-B 50 ML IV SCH (09:52)
--- NOTE | 2023-08-15 11:06 | XRay Report ---
KUB HISTORY: eval stool burden COMPARISON: KUB 07/09/2023. FINDINGS: The bowel gas pattern is unremarkable. There are no dilated loops of small bowel to suggest an obstruction. No renal calculi. No ureteral calculi. Calcifications in the deep pelvis likely rep resent phleboliths. These remain unchanged. There is a left total hip arthroplasty again noted. Prior cholecystectomy. Moderate fecal retention is again noted. This has progressed within the distal colo n/rectum. 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 No evidence fo r articular collapse.. No pneumoperitoneum or pneumatosis. IMPRESSION: 1. Nonobstructive bowel gas pattern. 2. Moderate fecal retention. This has progressed within the distal colon/rectum. 3. Additional findings as described above. ACT 112: Negative or not required by law. Electronically signed by: Coleman Teixeira M.D. 08/15/2023 11:04 AM
[2023-08-15] MEDS: LACTULOSE SYRUP 20 GM/30 ML UDC PO SCH (12:39)
[2023-08-15] MEDS ORDERED: MAGNESIUM SULFATE / D5W 1 GM/100 ML BAG IV ONE (14:56)
[2023-08-15] MEDS: ACETAMINOPHEN 500 MG TAB PO PRN (20:17)
[2023-08-15] MEDS: VENLAFAXINE HCL XR 75 MG CAPXR PO SCH (20:38)
[2023-08-15] MEDS: VENLAFAXINE HCL XR 150 MG CAPXR PO SCH (20:39)
[2023-08-16 06:45] LABS: Hemoglobin 10.5 g/dl (12.0-16.0); Mean Corpuscular Hgb Conc 32.8 g/dL (32.0-36.0); Mean Corpuscular Volume 85.3 fL (80.0-100.0); Mean Platelet Volume 11.7 fL (9.4-12.4); Platelet Count 160 K/uL (130-400); RDW Coefficient of Variation 16.4 % (11.5-14.5); Red Blood Count 3.75 M/uL (4.20-5.40)
[2023-08-16 06:50] LABS: INR 1.1 (0.9-1.1); Prothrombin Time 11.8 Seconds (9.0-12.0)
[2023-08-16 07:31] LABS: Albumin Level 3.4 gm/dl (3.4-5.0); Bilirubin,Total 0.4 mg/dl (0.2-1.0); Calcium 8.9 mg/dl (8.6-10.3); Magnesium 2.1 mg/dl (1.7-2.4); Potassium 3.4 mmol/L (3.5-5.1)
[2023-08-16 07:37] LABS: Albumin Globulin Ratio 1.3 (0.9-2); BUN Creatinine Ratio 30.5 (10-20); Creatinine Clr Calc Pharmacy 54.2 ml/min; Est GFR (African American) 87.6 ml/min; Est GFR (Non-African American) 75.6 ml/min; Globulin 2.7 gm/dl (2.5-4.0); Total Protein 6.1 gm/dl (6.0-8.3)
[2023-08-16] MEDS ORDERED: POTASSIUM CHLORIDE CRTAB 20 MEQ TABCR PO STA (08:14)
--- NOTE | 2023-08-16 08:16 | Hospitalist Progress Note ---
Date of Service August 16, 2023 Assessment & Plan (1) Generalized weakness: Plan: Pt is a 63 yo female with a past medical history of anxiety/depression, a fib, DMT2 on insulin, HTN, liver cirrhosis, hx cryptococcal meningitis, hx DVT who presented to the hospital after recent discharge on 08/01 for UTI/hallucination for complaints of increased abdominal pain/rectal discomfort/cramping x 2 days without BM and wanting placement for weakness as found in urine/stool at current facility at [facility] Deconditioning/Fecal impaction/Constipation/Fall Noting to have completed treatment for UTI 08/02 w/ bactrim and reporting fall prior to admission w/ bruising to sacrum. Pelvis/sacral imaging obtained which note possible S3 fracture (likely non-operative) and pain control w/ topical voltaren/prn medications. To note, possible area avascular necrosis to R femoral head. ?hx drinking but denied such Bowel regimen miralax BID, ordered lactulose once daily (ammonia wnl at 58) but reporting moving bowels but no documented in 2 days. KUB w/ fecal retention and given prior BRBPR as below wanting to prevent constipation noting 2u PRBC, GI consult for + fecal occult testing -- outpt f/u as hgb remaining stable/no further bleeding reported UA obtained to ensure no ongoing issue, trace leuk esterase/5-10WBC, 20-30 epi, 1+ bacteria. Urine cx recommended repeat collection and continue on Ceftriaxone (got 5 days), repeat urine negative and abx discontinued today PT/OT evals, rec SNF - is [facility]. Cleared by psych/consult. CM following -- [facility] when process completed (2) GI bleeding: Plan: BRBPR/Anemia (chronic anemia for several months in system, on eliquis)/Hx Cirrhosis reported BRBPR w/ BM after initial constipation/enema in ER w/ large amount of stool passing and reported feeling much better ?hemorrhoidal vs other-- - patient w/ chronic anemia (hgb in 7-8 for past several months) DID GET 1U PRBC LAST ADMISSION this past month as well Remains on PPI BID, Carafate added back for prior gastritis w/ reported improvement B12/folate wnl Iron studies obtained, low iron/trans % sat 6, ferritin 15.4. Venofer x 2 but did discuss w/ supervising provider and s/p 2u PRBC for bleeding per rectum/drop in hgb earlier in the stay On Eliquis at baseline for hx paroxsymal afib (also DVT/PE last summer w/ admit for meningitis not on chemo proph during extensive stay as need for LP, has completed 1 yr. No hypotension/hypoxia or increased leg swelling/pain) which was placed on hold (last dose 08/11 AM) and placed on SCDs in meantime --> Given completed 1 yr, treated for provoked, however does have pafib but examining in sinus and would like to ensure moving bowels/no further bleeding prior to resuming such GI consulted -- no inpatient scope planned, will need outpatient follow up for scopes. Asked to see again given prior admit/transfusion/abd pain/bora last admission in cirrhotic patient. Per Dr Salas, hgb stable and they will continue to monitor. No inpatient scope at this time but if bleeding/need to consider. Ceftriaxone above for possible UTI now discontinued w/ negative cultures in cirrhotic patient. Did get rocephin x 5 days Hgb levels appearing quite stable, patient reporting feeling best that she has 10.5 today. Eliquis remains on hold as discussed w/ supervising provider Increased bowel regimen, lactulose daily for above to prevent constipation Monitor CBC in am/for any further bleeding (3) Fecal impaction in rectum: Plan: s/p enema in ER w/ large amount of stool. additional bowel movements reported without bleeding however not witnessed may need to consider lumbar spine imaging given possible fracture however denied saddle paresthesias at present and denied incontinence issues (however urinary incontinence at times at baseline) bowel regimen increased as above, lactulose ordered Will order KUB in AM to monitor (4) Anemia: Plan: acute on chronic, in setting of eliquis (on hold as above). Had been taking NSAIDs earlier in the year s/p 2 U PRBC, hgb stable on repeat without further bleeding however have not witnessed further BM and to monitor CBC in AM (5) Cirrhosis of liver: Plan: last noted on abd CT 06/18. per GI, from fatty liver Limit hepatotoxins, dose appropriate as needed Lactulose ordered to assist w/ bowel movements. Ammonia level wnl previously. NO tremor appreciated at present GI consulted inpatient and will need f/u. AFP pending (6) Paroxysmal A-fib: Plan: A fib, paroxysmal Eliquis continued on admission, placed on hold 2nd to above for +fecal occult testing/anemia, PBRC as above Appearing NSR on exam Keep K/mag replete (placed on mag oxide, should assist w/ constipation as well) SCDs added for DVT prophylaxis, no evidence for DVT on examination at present (7) Diabetes mellitus type 2, insulin dependent: Plan: DMT2, insulin dependent Last HA1c 02/15 was 10.8%. BSG 149 on POC on arrival Home regimen listed as glargine 15u BID, however suspect given repeat A1c 6.5 likely needing decreased needs at discharge however, note A1c in setting of anemia. would repeat in 3 months Lantus increased to 12u BID for now, SSI --> improvement in BSGs Monitor insulin needs/possible decreased needs at dc (8) Cryptococcal meningitis: Plan: Hx recurrent cryptococcal meningitis, hallucinations pt feeling well, no URI symptoms or headache this admission, afebrile, WBC count normal pt not concerning for recurrence at this time for related hallucinations, continue home Seroquel also to be on fluconazole daily prophylaxis, added (dose reduced for renal function to 200mg daily -- improvement in renal function w/ iron/blood -- can increase to 400mg daily in AM if remaining stable) (9) Hypertension: Plan: HTN continue home metoprolol home lasix prn on hold (takes prn edema) BP stable (10) Depression: Plan: Depression - continue home venlafaxine (dose adjusted as taking at home, 150+75mg HS) - mood stable at present and improved (11) Anxiety: Plan: as above, venlafaxine (12) Gastritis: Plan: Continue home pantoprazole PO BID for now. GI consulted as above, PRBC/venofer as outlined Rec f/u GI at [facility] for screening scopes if not completed while inpatient Restarted carafate given prior improvement, GI consulted/following as above (13) Constipation: Plan: moving her bowels daily (none today), increased miralax BID to prevent worsened constipation and not reporting any increased bleeding at present time. Hgb stable on repeat lactulose ordered for today, KUB w/ stool burden noted f/u KUB/bowel movements in AM (14) Sacral fracture: Plan: possible, noted lucency on imaging. pain control, nonoperative pt/ot and SNF planned at [facility] consider lumbar spine imaging if any ongoing issues w/ bowel movements. Had bladder scan for 600cc but RN taken to bathroom and voided this. Denied saddle paresthesia. No retention today/repeat urine cx negative and will monitor for retention isuses Plan Patient identified as [facility], CM following until process completed/bed at [facility] monitor bowels/cbc/any bleeding. eliquis on hold -- resume when no further bleeding/deemed safe (no evidence for DVT on exam) Admission and Anticipated Discharge Date Admission Date: August 12, 2023 Subjective evaluated this morning, resting in bed. no acute distress but reporting feeling somewhat tired. thought she got good sleep last night but was up at 5am. reports moving her bowels but discussed KUB w/ stool burden and will continue lactulose/possible increase. she would prefer avoiding increasing her miralax if possible. some cramping to abdomen but no overt tenderness/nausea/vomiting. No fever/chills, chest pain or shortness of breath. Nursing just applied cream to her lower back w/ reported good effect. She notes her urine is still slightly darkened in color. Will avoid any lasix at present time. Does not appear overly dehydrated/good appetite reported. Denies any saddle paresthesias or not knowing when she has to urinate/move her bowels/incontinence issues reported. Awaiting rehab/[facility] process/CM following. Questions/concerns addressed at this time. Physical Exam 2 Physical Exam: General: 63yo female, chronically ill appearing much appear improved/pallor improved, resting in bed, reporting fatigue but otherwise well HEENT: head atraumatic, normocephalic, mmm, trachea midline Resp: CTA, no w/c/r, on room air CV: RRR, no significant mrg, no pitting edema/calf tenderness GI: +BS thoughout but slightly more distended, cramping reported but no overt tenderness rectal exam prior w/ several nonbleeding hemorrhoids noted (not examined today) : no aviles MSK/Neuro: no focal deficit, no slurred speech/facial droop mild bruising/ecchymosis to sacral region -- just got voltaren to affected area w/ reported improvement Psych: alert/oriented x 3, cooperative with exam Results & Data Results & Data Vital Signs (Past 12 Hours) Vital Signs Temp Pulse Resp BP Pulse Ox O2 Del Method 11/21/23 07:56 36.4 C L 65 16 110/67 98 Room Air 08/15/23 20:47 Room Air 08/15/23 20:43 36.5 C 67 16 104/66 Room Air Laboratory Results 08/16/23 06:12 08/16/23 06:12 PG Care Time/CCT Total # of Minutes Spent Total Time Spent with Patient: Total time spent is greater than 50% in coordination of care (as documented) at patient's floor/unit and/or counseling patient: Coding Level of Care Code 48188 SUB INP/OBS CARE 2/35MIN Diagnoses Generalized weakness R53.1 GI bleeding K92.2 Fecal impaction in rectum K56.41 Anemia D62 Anemia type: other cause Other causes of anemia: acute posthemorrhagic Cirrhosis of liver K74.60 Paroxysmal A-fib I48.0 Diabetes mellitus type 2, insulin dependent E11.9; Z79.4 Cryptococcal meningitis B45.1 Essential hypertension I10 Hypertension type: essential hypertension Depression, unspecified depression type F32.9 Depression Type: unspecified Anxiety F41.9 Gastritis K29.70 Constipation K59.00 Constipation type: unspecified constipation type Sacral fracture S32.10XA (4) Anemia Anemia type: other cause Other causes of anemia: acute posthemorrhagic Qualified Code(s): D62 - Acute posthemorrhagic anemia (9) Hypertension Hypertension type: essential hypertension Qualified Code(s): I10 - Essential (primary) hypertension (10) Depression Depression Type: unspecified Qualified Code(s): F32.9 - Major depressive disorder, single episode, unspecified (13) Constipation Constipation type: unspecified constipation type Qualified Code(s): K59.00 - Constipation, unspecified
[2023-08-16] MEDS: FLUCONAZOLE 100 MG TAB PO SCH (08:29)
[2023-08-16] MEDS: METOPROLOL SUCC 25MG EXT REL TAB PO SCH ×2 (08:29→22:11)
[2023-08-16] MEDS: QUEtiapine FUMARATE 25 MG TABLET PO SCH ×2 (08:29→22:14)
[2023-08-16] MEDS: DICLOFENAC SOD 1% GEL 100 GM TUBE EXT SCH ×2 (08:30→22:08)
[2023-08-16] MEDS: CETIRIZINE HCL 10 MG TABLET PO SCH (08:30)
[2023-08-16] MEDS: THIAMINE HCL 100 MG TAB PO SCH (08:30)
[2023-08-16] MEDS: SUCRALFATE 1 GM/10 ML UDC PO SCH ×4 (08:31→22:10)
[2023-08-16] MEDS: PANTOprazole 40 MG TAB PO SCH ×2 (08:32→22:16)
[2023-08-16] MEDS: MAGNESIUM OXIDE 400 MG TAB PO SCH ×2 (08:32→22:11)
[2023-08-16] MEDS: LACTULOSE SYRUP 20 GM/30 ML UDC PO SCH (08:33)
[2023-08-16] MEDS: POLYETHYLENE (MIRALAX) 17 GM PACK PO SCH ×2 (08:34→22:10)
[2023-08-16] MEDS: INSULIN ASPART PER UNIT CHARGE SC SCH ×4 (08:41→22:07)
[2023-08-16] MEDS: LANTUS PER UNIT CHARGE SQ SCH ×2 (08:46→22:07)
[2023-08-16] MEDS: cefTRIAXone SODIUM 1,000 MG in DEXTROSE 5 % MINI-B 50 ML IV SCH (11:08)
[2023-08-16] MEDS ORDERED: LANTUS PER UNIT CHARGE SQ ONE (21:54)
[2023-08-16] MEDS: VENLAFAXINE HCL XR 75 MG CAPXR PO SCH (22:12)
[2023-08-16] MEDS: VENLAFAXINE HCL XR 150 MG CAPXR PO SCH (22:15)
[2023-08-17 06:21] LABS: Hematocrit (blood only) 31.6 % (37.0-47.0); Hemoglobin 10.1 g/dl (12.0-16.0); Mean Corpuscular Hemoglobin 27.9 pg (25.0-34.0); Mean Corpuscular Volume 87.3 fL (80.0-100.0); Mean Platelet Volume 11.2 fL (9.4-12.4); Platelet Count 145 K/uL (130-400); RDW Coefficient of Variation 16.5 % (11.5-14.5); RDW Standard Deviation 51.4 fL (36.4-46.3); Red Blood Count 3.62 M/uL (4.20-5.40); White Blood Count 4.84 K/ul (4.8-10.8)
[2023-08-17 06:38] LABS: Albumin Globulin Ratio 1.2 (0.9-2); Albumin Level 3.2 gm/dl (3.4-5.0); BUN Creatinine Ratio 32.1 (10-20); Bilirubin,Total 0.4 mg/dl (0.2-1.0); Calcium 8.7 mg/dl (8.6-10.3); Est GFR (African American) 93.1 ml/min; Est GFR (Non-African American) 80.3 ml/min; Globulin 2.7 gm/dl (2.5-4.0); Potassium 3.6 mmol/L (3.5-5.1); Total Protein 5.9 gm/dl (6.0-8.3)
[2023-08-17] MEDS: INSULIN ASPART PER UNIT CHARGE SC SCH ×4 (08:47→22:10)
[2023-08-17] MEDS: PANTOprazole 40 MG TAB PO SCH ×2 (08:48→22:05)
[2023-08-17] MEDS: MAGNESIUM OXIDE 400 MG TAB PO SCH ×2 (08:49→22:06)
[2023-08-17] MEDS: METOPROLOL SUCC 25MG EXT REL TAB PO SCH ×2 (08:49→22:05)
[2023-08-17] MEDS: THIAMINE HCL 100 MG TAB PO SCH (08:49)
[2023-08-17] MEDS: QUEtiapine FUMARATE 25 MG TABLET PO SCH ×2 (08:49→22:03)
[2023-08-17] MEDS: DICLOFENAC SOD 1% GEL 100 GM TUBE EXT SCH ×2 (08:50→22:02)
[2023-08-17] MEDS: FLUCONAZOLE 100 MG TAB PO SCH (08:50)
[2023-08-17] MEDS: CETIRIZINE HCL 10 MG TABLET PO SCH (08:50)
[2023-08-17] MEDS: LACTULOSE SYRUP 20 GM/30 ML UDC PO SCH (08:51)
[2023-08-17] MEDS: SUCRALFATE 1 GM/10 ML UDC PO SCH ×4 (08:52→22:04)
[2023-08-17] MEDS: POLYETHYLENE (MIRALAX) 17 GM PACK PO SCH ×3 (08:52→22:11)
[2023-08-17 14:17] LABS: HBSAG NON-REACTIVE (NON-REACTIVE); Hepatitis A Antibody IgM NON-REACTIVE (NON-REACTIVE); Hepatitis B Core Antibody IgM NON-REACTIVE (NON-REACTIVE)
--- NOTE | 2023-08-17 14:46 | XRay Report ---
XR KUB/Abdomen 1 view CLINICAL HISTORY: f/u constipation TECHNIQUE: 1 view of the abdomen was obtained. Comparison: Comparison is made to prior radiograph 08/15/2023 FINDINGS: Lung bases are unremarkable. Degenerative changes are seen in the visualized skeleton. Left hip total arthroplasty is seen. Redemonstration of stool in the rectum, similar to prior exam. IMPRESSION: Redemonstration of fecal retention, similar to prior exam. ACT 112: Negative or not required by law. Electronically signed by: Sukhjinder Orozco M.D. 08/17/2023 2:45 PM
--- NOTE | 2023-08-17 21:55 | Hospitalist Progress Note ---
Date of Service August 17, 2023 Assessment & Plan (1) Generalized weakness: Plan: multifactorial - anemia, deconditioning, recent UTI, cirrhosis, depression, etc. PT, OT. (2) GI bleeding: Plan: s/p 2 units PRBCs this admission. s/p venofer IV x 2 doses. GI consulted; endoscopic eval deferred. source of presumed bleeding/anemia uncertain. remains on PPI twice daily + carafate QID. repeat CBC in 48 hours for stability. consider 1 additional run of IV venofer. (3) Fecal impaction in rectum: Plan: ongoing KUB x-ray today still with large stool ball as well as copious stool throughout the colon remains on lactulose, miralax, etc but this is going to require additional enemas for disimpaction fecal retention likely contributing to poor appetite (4) Anemia: Plan: s/p 2 units PRBCs this admission. Fe studies c/w Fe def anemia with ferritin of 15. s/p 2 runs of IV venofer - consider a 3rd dose. Eliquis on hold due to concern for GI bleeding. If repeat CBCs are stable will resume carefully. B12/folate wnl (5) Cirrhosis of liver: Plan: LFTs stable CBC stable AFP negative no evidence of hepatic encephalopathy no decompensated cirrhosis (6) Paroxysmal A-fib: Plan: examines NSR today cont metoprolol succ 25mg BID Eliquis on hold due to concerns for GI bleeding (7) Diabetes mellitus type 2, insulin dependent: Plan: Hba1c 6.5% episodes of hypoglycemia here cut lantus back to 4 units daily novolog - loose SSI trend BSGs (8) Cryptococcal meningitis: Plan: cont fluconazole prophylaxis - creatinine stable thus resume 400mg/day LFTs are stable 08/10 EKG with stable QTc last MRI this fall with leptomeningeal enhancement - smoldering, low-grade infection? (9) Hypertension: Plan: cont meto succ BID controlled (10) Depression: Plan: continue home venlafaxine 225mg/day appears to have ongoing depression despite the effexor - will ask psych to see again - consider additional agent? remeron due to poor appetite, poor sleep, etc?? (11) Anxiety: Plan: cont venlafaxine (12) Sacral fracture: Plan: possible noted s3 lucency on imaging pain control nonoperative Plan Patient identified as a "[facility]" Once [facility] process has been completed she will be transferred to [facility] Admission and Anticipated Discharge Date Admission Date: August 12, 2023 Subjective patient lying in bed comfortably upon my arrival she was very tearful throughout the majority of the visit she conveyed that she felt that her life was going "to end soon" apparently an outside provider at another institution told her that her condition (prior cryptococcal meningitis) was "terminal" she has dwelled on this comment for some time endorses very poor sleep endorses very poor appetite she admits to feeling very depressed for "some time" Review of Systems Review of Systems: gen- no fevers or chills cv- no chest pain or orthopnea or edema pulm- no dyspnea at rest GI- no abdominal pain; ongoing constipation; no N/V Physical Exam Physical Exam: gen - very thin, tearful/depressed, modestly confused at times mouth - MMM neck - no JVD heart - RRR, s1 s2 lungs - CTA b/l abd - soft NT ND BS+ ext - no edema, pulses 2+ b/l psych - restricted affect, tearful/crying, confused intermittently Results & Data Results & Data Vital Signs (Past 12 Hours) Vital Signs Temp Pulse Resp BP Pulse Ox O2 Del Method 08/17/23 19:35 36.7 C 67 16 126/76 97 Room Air 08/17/23 15:24 36.9 C 68 15 131/80 96 Room Air Laboratory Results Laboratory Results - last 48 hr 08/16/23 08/17/23 08/17/23 06:12 05:55 07:44 WBC 4.84 RBC 3.62 L Hgb 10.1 L Hct 31.6 L MCV 87.3 MCH 27.9 MCHC 32.0 RDW Std Deviation 51.4 H RDW Coeff of Jun 16.5 H Plt Count 145 MPV 11.2 Sodium 143 Potassium 3.6 Chloride 108 H Carbon Dioxide 29 Anion Gap 6 BUN 25 H Creatinine 0.78 Est Cr Clr Drug Dosing 57.0 Est GFR ( Amer) 93.1 Est GFR (Non-Af Amer) 80.3 BUN/Creatinine Ratio 32.1 H Glucose 69 L POC Glucose 82 Calcium 8.7 Magnesium 2.0 Total Bilirubin 0.4 AST 55 H ALT 31 Alkaline Phosphatase 223 H Total Protein 5.9 L Albumin 3.2 L Globulin 2.7 Albumin/Globulin Ratio 1.2 Hepatitis A IgM Ab NON-REACTIVE Hep Bs Antigen NON-REACTIVE Hep Bs Ag Confirmation TNP Hep B Core IgM Ab NON-REACTIVE Hepatitis C Ab (EIA) NON-REACTIVE 08/17/23 08/17/23 11:44 16:41 WBC RBC Hgb Hct MCV MCH MCHC RDW Std Deviation RDW Coeff of Jun Plt Count MPV Sodium Potassium Chloride Carbon Dioxide Anion Gap BUN Creatinine Est Cr Clr Drug Dosing Est GFR ( Amer) Est GFR (Non-Af Amer) BUN/Creatinine Ratio Glucose POC Glucose 105 H 113 H Calcium Magnesium Total Bilirubin AST ALT Alkaline Phosphatase Total Protein Albumin Globulin Albumin/Globulin Ratio Hepatitis A IgM Ab Hep Bs Antigen Hep Bs Ag Confirmation Hep B Core IgM Ab Hepatitis C Ab (EIA) PG Care Time/CCT Total # of Minutes Spent Total Time Spent with Patient: Total time spent is greater than 50% in coordination of care (as documented) at patient's floor/unit and/or counseling patient: Coding Level of Care Code 62230 SUB INP/OBS CARE 2/35MIN Diagnoses Generalized weakness R53.1 GI bleeding K92.2 Fecal impaction in rectum K56.41 Anemia D62 Anemia type: other cause Other causes of anemia: acute posthemorrhagic Cirrhosis of liver K74.60 Paroxysmal A-fib I48.0 Diabetes mellitus type 2, insulin dependent E11.9; Z79.4 Cryptococcal meningitis B45.1 Essential hypertension I10 Hypertension type: essential hypertension Depression, unspecified depression type F32.9 Depression Type: unspecified Anxiety F41.9 Sacral fracture S32.10XA (4) Anemia Anemia type: other cause Other causes of anemia: acute posthemorrhagic Qualified Code(s): D62 - Acute posthemorrhagic anemia (9) Hypertension Hypertension type: essential hypertension Qualified Code(s): I10 - Essential (primary) hypertension (10) Depression Depression Type: unspecified Qualified Code(s): F32.9 - Major depressive disorder, single episode, unspecified
[2023-08-17] MEDS: VENLAFAXINE HCL XR 150 MG CAPXR PO SCH (22:04)
[2023-08-17] MEDS: VENLAFAXINE HCL XR 75 MG CAPXR PO SCH (22:05)
[2023-08-17] MEDS: LANTUS PER UNIT CHARGE SQ SCH ×2 (22:09→22:10)
[2023-08-18] MEDS: MAGNESIUM OXIDE 400 MG TAB PO SCH ×2 (08:29→21:05)
[2023-08-18] MEDS: POLYETHYLENE (MIRALAX) 17 GM PACK PO SCH ×2 (08:29→21:04)
[2023-08-18] MEDS: SUCRALFATE 1 GM/10 ML UDC PO SCH ×4 (08:29→21:06)
[2023-08-18] MEDS: LACTULOSE SYRUP 20 GM/30 ML UDC PO SCH (08:29)
[2023-08-18] MEDS: METOPROLOL SUCC 25MG EXT REL TAB PO SCH ×2 (08:29→21:06)
[2023-08-18] MEDS: THIAMINE HCL 100 MG TAB PO SCH (08:30)
[2023-08-18] MEDS: DICLOFENAC SOD 1% GEL 100 GM TUBE EXT SCH ×2 (08:30→21:04)
[2023-08-18] MEDS: QUEtiapine FUMARATE 25 MG TABLET PO SCH ×2 (08:30→21:05)
[2023-08-18] MEDS: CETIRIZINE HCL 10 MG TABLET PO SCH (08:30)
[2023-08-18] MEDS: PANTOprazole 40 MG TAB PO SCH ×2 (08:30→21:05)
[2023-08-18] MEDS: INSULIN ASPART PER UNIT CHARGE SC SCH ×4 (08:32→21:03)
[2023-08-18] MEDS: FLUCONAZOLE 100 MG TAB PO SCH (08:50)
[2023-08-18] MEDS ORDERED: COUGH DROP (SUGAR FREE) LOZ 24 LOZ/1 BOX BUCCAL ONE (17:34)
--- NOTE | 2023-08-18 20:58 | Hospitalist Progress Note ---
Date of Service August 18, 2023 Assessment & Plan (1) Generalized weakness: Plan: multifactorial - anemia, deconditioning, recent UTI, cirrhosis, depression, etc. cont PT, OT. repeat CBC am. B1 level still pending. (2) GI bleeding: Plan: concern for but uncertain. s/p 2 units PRBCs this admission. s/p venofer IV x 2 doses. GI consulted; endoscopic eval deferred. source of presumed bleeding/anemia uncertain. remains on PPI twice daily + carafate QID. repeat CBC am. consider 1 additional run of IV venofer tomorrow. (3) Fecal impaction in rectum: Plan: ongoing KUB x-ray 08/17 still with large stool ball as well as copious stool throughout the colon remains on lactulose, miralax, etc but this is going to require additional enemas for disimpaction fecal retention likely contributing to poor appetite discussed with her today that she will likely need enemas to clean this out likely will do this tomorrow (4) Anemia: Plan: s/p 2 units PRBCs this admission. Fe studies c/w Fe def anemia with ferritin of 15. s/p 2 runs of IV venofer - consider a 3rd dose. Eliquis on hold due to concern for GI bleeding. If repeat CBCs are stable will resume carefully. B12/folate wnl (5) Cirrhosis of liver: Plan: LFTs stable CBC stable AFP negative no evidence of hepatic encephalopathy no decompensated cirrhosis (6) Paroxysmal A-fib: Plan: examines NSR today cont metoprolol succ 25mg BID Eliquis on hold due to concerns for GI bleeding (7) Diabetes mellitus type 2, insulin dependent: Plan: Hba1c 6.5% episodes of hypoglycemia here I cut lantus back to 4 units daily and hypoglycemia has stopped cont novolog - loose SSI trend BSGs if she continues with lows consider checking cortisol level (8) Cryptococcal meningitis: Plan: cont fluconazole prophylaxis - creatinine stable thus resume 400mg/day LFTs are stable 08/10 EKG with stable QTc last MRI this fall with leptomeningeal enhancement - smoldering, low-grade infection? (9) Hypertension: Plan: cont meto succ BID controlled (10) Depression: Plan: continue home venlafaxine 225mg/day appears to have ongoing depression despite the effexor - will ask psych to see again - consider additional agent? remeron due to poor appetite, poor sleep, etc?? (11) Anxiety: Plan: cont venlafaxine (12) Sacral fracture: Plan: possible noted s3 lucency on imaging pain control nonoperative Plan Patient identified as a "[facility]" Once [facility] process has been completed she will be transferred to [facility] Admission and Anticipated Discharge Date Admission Date: August 12, 2023 Subjective pt reports she had several visitors today she was happy that they came not as tearful today but [id number] still remains despondent about her overall situation by report had 1-2 small stools pt states she continues to strain at stool, and the stools are firm/hard appetite remains very poor - eating very little Review of Systems Review of Systems: GI - no abd pain or N/V pulm - no dyspnea CV - no chest pain Physical Exam Physical Exam: gen - very thin, mentation a little better today, NAD mouth - MMM neck - no JVD heart - RRR, s1 s2, no murmur lungs - CTA b/l abd - soft NT ND BS+ ext - no edema, pulses 2+ b/l psych - restricted affect Results & Data Results & Data Vital Signs (Past 12 Hours) Vital Signs Temp Pulse Resp BP Pulse Ox O2 Del Method 08/18/23 19:45 36.5 C 67 18 112/63 97 Room Air 08/18/23 19:19 36.4 C L 66 16 138/76 97 Room Air 08/18/23 14:25 36.4 C L 73 16 125/81 97 Room Air Laboratory Results Laboratory Results - last 24 hr 08/17/23 08/18/23 08/18/23 22:03 08:01 11:38 POC Glucose 109 H 108 H 134 H 08/18/23 08/18/23 16:41 20:06 POC Glucose 165 H 113 H PG Care Time/CCT Total # of Minutes Spent Total Time Spent with Patient: Total time spent is greater than 50% in coordination of care (as documented) at patient's floor/unit and/or counseling patient: Coding Level of Care Code 12606 SUB INP/OBS CARE 125MIN Diagnoses Generalized weakness R53.1 GI bleeding K92.2 Fecal impaction in rectum K56.41 Anemia D62 Anemia type: other cause Other causes of anemia: acute posthemorrhagic Cirrhosis of liver K74.60 Paroxysmal A-fib I48.0 Diabetes mellitus type 2, insulin dependent E11.9; Z79.4 Cryptococcal meningitis B45.1 Essential hypertension I10 Hypertension type: essential hypertension Depression, unspecified depression type F32.9 Depression Type: unspecified Anxiety F41.9 Sacral fracture S32.10XA (4) Anemia Anemia type: other cause Other causes of anemia: acute posthemorrhagic Qualified Code(s): D62 - Acute posthemorrhagic anemia (9) Hypertension Hypertension type: essential hypertension Qualified Code(s): I10 - Essential (primary) hypertension (10) Depression Depression Type: unspecified Qualified Code(s): F32.9 - Major depressive disorder, single episode, unspecified
[2023-08-18] MEDS: LANTUS PER UNIT CHARGE SQ SCH (21:03)
[2023-08-18] MEDS: VENLAFAXINE HCL XR 75 MG CAPXR PO SCH (21:05)
[2023-08-18] MEDS: VENLAFAXINE HCL XR 150 MG CAPXR PO SCH (21:06)
[2023-08-19 06:41] LABS: Hematocrit (blood only) 30.6 % (37.0-47.0); Hemoglobin 9.6 g/dl (12.0-16.0); Mean Corpuscular Hemoglobin 27.9 pg (25.0-34.0); Mean Corpuscular Hgb Conc 31.4 g/dL (32.0-36.0); Mean Platelet Volume 11.2 fL (9.4-12.4); Platelet Count 116 K/uL (130-400); RDW Coefficient of Variation 16.8 % (11.5-14.5); RDW Standard Deviation 53.9 fL (36.4-46.3); Red Blood Count 3.44 M/uL (4.20-5.40); White Blood Count 4.76 K/ul (4.8-10.8)
[2023-08-19 07:00] LABS: BUN Creatinine Ratio 31.9 (10-20); Calcium 8.6 mg/dl (8.6-10.3); Creatinine Clr Calc Pharmacy 47.3 ml/min; Est GFR (African American) 74.3 ml/min; Est GFR (Non-African American) 64.1 ml/min; Potassium 4.2 mmol/L (3.5-5.1)
[2023-08-19] MEDS ORDERED: LACTULOSE 200GM/700ML WTR ENEMA PR ONE (09:00)
[2023-08-19] MEDS: CETIRIZINE HCL 10 MG TABLET PO SCH (09:08)
[2023-08-19] MEDS: FLUCONAZOLE 100 MG TAB PO SCH (09:08)
[2023-08-19] MEDS: DICLOFENAC SOD 1% GEL 100 GM TUBE EXT SCH ×2 (09:08→20:45)
[2023-08-19] MEDS: MAGNESIUM OXIDE 400 MG TAB PO SCH ×2 (09:08→20:46)
[2023-08-19] MEDS: THIAMINE HCL 100 MG TAB PO SCH (09:08)
[2023-08-19] MEDS: QUEtiapine FUMARATE 25 MG TABLET PO SCH ×2 (09:08→20:47)
[2023-08-19] MEDS: METOPROLOL SUCC 25MG EXT REL TAB PO SCH ×2 (09:08→20:46)
[2023-08-19] MEDS: PANTOprazole 40 MG TAB PO SCH ×2 (09:09→20:47)
[2023-08-19] MEDS: POLYETHYLENE (MIRALAX) 17 GM PACK PO SCH ×2 (09:09→20:46)
[2023-08-19] MEDS: SUCRALFATE 1 GM/10 ML UDC PO SCH ×4 (09:09→20:46)
[2023-08-19] MEDS: INSULIN ASPART PER UNIT CHARGE SC SCH ×4 (09:12→20:45)
--- NOTE | 2023-08-19 13:22 | Psychiatric Progress Note ---
Date of Service August 19, 2023 Impression / Recommendations Impression 63 yo woman with a history of hallucinations, prior cryptococcal meningitis, and depression who has traditionally responded well to hospital routines and consistent care approaches. Over recent months has developed significantly more cognitive difficulties related to independent living skills associated with her neurologic condition or other cognitive process. She has responded well to scheduled quetiapine and her mood had been stable without any medication side effects. 08/19/2023: Dr. Landry contacted me yesterday evening asking for a repeat psychiatric reassessment. He was concerned about the degree of patient's depressed mood, describing her as very demoralized about her situation and crying more. He also reported that she's barely been eating most days. Dr. Rodríguez saw pt a week ago, the focus of that assessment having been primarily whether she were sufficiently psychiatrically stable for transfer to a SNF. At that time, the patient had reported feeling as if she were improving and it seemed as if mood symptoms were adequately controlled. She does not appear to be being bothered by hallucinations at present. In my review of pt's chart, it transpires she was admitted to the psychiatric it here in March 2023 for hallucinosis that appeared to be a sequela of the cryptococcal meningitis and was suspected to have been exacerbated by other factors such as medications and a UTI. At the time of admission she was taking venlafaxine XR 300 mg daily and mirtazapine 45 mg QPM. During that stay venlafaxine XR was reduced to 225 mg, mirtazapine was tapered, and quetiapine was added at a 25 mg daily dose. While there was some thought that the hallucinosis could have been related to overall medication burden, mirtazapine is not typically associated with hallucinosis. She was seen for psychiatric consultation during a subsequent medical admission in June 2023 because of ongoing hallucinosis (at that point, off mirtazapine for 3 months) and quetiapine dose was adjusted. On exam, pt presents as pleasant, engaged, and appropriate. She's alert and her level of arousal doesn't vary over the course of my assessment. She's well- oriented to person, place (room, floor, facility, town, state), time (day, date, month, year, season, "Tuesday"), and circumstances (reasons for admission and continued hospitalization that comport well with chart). No word-finding trouble or other very prominent cognitive issues are apparent. She says she's less sad today, and smiles fairly often and even laughs a few times. She acknowledges depression but thinks "it's under decent control" at present, though she's very frustrated at feeling "stuck with nowhere to go" (which seems both an accurate assessment and a reasonable response). She agrees that her "appetite has been terrible" and that even though she knows she's not eating enough for good nutrition she's had difficulty eating more. Pt also notes that she's "struggling to sleep". In discussing her previous use of mirtazapine, she says that she'd been taking it not only to augment the antidepressant effect of the venlafaxine but also to help with sleep (she didn't have poor appetite at the time, so helping with that wasn't a goal). I believe it would be very reasonable to resume mirtazapine in addition to the venlafaxine XR she's been taking, at a somewhat lower dose because (possibly due to partial agonism at H1 receptors), lower doses seem to boost appetite and sleep more. Since venlafaxine can be somewhat activating and the 24-hour XR form is intended for once-daily dosing, I think she might do better taking the full 225 mg in the morning. The low-dose quetiapine she's taking appears to be controlling hallucinosis well and in the absence of any apparent adverse effects I'd certainly recommend continuing it as-is. For the avoidance of any potential uncertainty, in my opinion she remains psychiatrically stable for transfer to a nursing home facility, it is still the case that there's no current indication for psychiatric hospitalization, and there is still no evidence that psychiatric symptoms are a significant contributor to her need for nursing home care. She certainly will need ongoing follow-up and management of her psychiatric medications, which typically would be done on an outpatient basis, most likely by her PCP. 08/12/2023: The patient is psychiatrically stable for transfer to a nursing home facility. There is no acute indication for inpatient psychiatric hospitalization as the patient is not suicidal or homicidal; there is no evidence of psychosis nor psychiatric symptoms interfering with their ability to care for their basic needs. Psychiatric follow-up care for this patient should include ongoing management of their medications. 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 She has previously taken this medication (at a higher dose) together with venlafaxine, and it tends to boost appetite and sleep (typically more pronounced at lower doses). * continue venlafaxine XR at total dose of 225 mg/day. Consider consolidating to single 225 mg AM dose, as this is a 24-hour slow-release formulation and there is usually little to be gained (either in terms of benefit or of side effets) by dividing the dose. * continue quetiapine 25 mg QAM & 75 mg QHS. Total dose of 100 mg/day seems to have been adequately effective for her, and it was divided from 100 mg QHS apparently to ensure adequate daytime coverage (this drug usually requires divided doses for efficacy) 08/12/2023: -Psychiatrically stable for SNF placement -Continue Seroquel 25mg qAM & 75mg HS po -Continue Effexor XR 225mg HS (this could also be taken in the morning in the future if it ever starts to cause insomnia) Interval History Identifying Information 62 yo female brought by family from [facility], with history of fungal meningitis with subsequent cognitive deficits, hallucinations and difficulty functioning independently at home, admitted following fall and because of deconditioning. The hospitalist requested further assessment due to apparent mood worsening Chief Complaint "I think I'm getting pretty frustrated by still being here". Subjective Subjective The patient was seen and assessed and interval progress reviewed in a multidisciplinary team meeting with psychiatric liaison nursing and social work. For details, see the "Impression" section. Overall I spent a total of 100 minutes for this consultation follow-up including review of chart records, review of test results, direct evaluation of the patient [id number], counseling the patient, communicating with the attending physician, medication education with the patient, risk assessment, discussion with the psychiatric liaison nurse, and documentation in the electronic health record. Physical Exam Psychiatric Orientation: alert, oriented to person, oriented to place, oriented to time and cooperative Apperance: appropriately dressed and appropriately groomed Eye Contact: good eye contact Motor Behavior: no abnormal motor movements Speech: normal rate/rhythm/volume of speech Affect: euthymic affect Mood: no depressed mood and no anxious mood Thought Process: goal directed thought process Thought Content: reality based without delusions; not paranoid Suicidal Thoughts: denies suicidal thoughts, denies suicidal plan and denies suicidal intent Homicidal Thoughts: denies homicidal thoughts Hallucinations: no auditory hallucinations and no visual hallucinations Cognition: attention grossly intact and language grossly intact Estimated Intelligence: consistent with education level Insight: + fair insight Judgment: + fair judgement Vital Signs (Past 24 Hours) Last Vital Signs Temp 36.2 C L 08/19/23 07:27 Pulse 57 L 08/19/23 07:27 Resp 15 08/19/23 07:27 BP 106/69 08/19/23 07:27 Pulse Ox 97 08/19/23 07:27 O2 Del Method Room Air 08/19/23 07:27 I've reviewed the physical exams done by the ED physician and by the admitting hospitalist and incorporated that information into my overall assessment. Results & Data ([facility]) Laboratory Results Laboratory Results - last 24 hr 08/18/23 08/18/23 08/19/23 16:41 20:06 06:18 WBC 4.76 L RBC 3.44 L Hgb 9.6 L Hct 30.6 L MCV 89.0 MCH 27.9 MCHC 31.4 L RDW Std Deviation 53.9 H RDW Coeff of Jun 16.8 H Plt Count 116 L MPV 11.2 Sodium 141 Potassium 4.2 Chloride 108 H Carbon Dioxide 28 Anion Gap 5 BUN 30 H Creatinine 0.94 Est Cr Clr Drug Dosing 47.3 Est GFR ( Amer) 74.3 Est GFR (Non-Af Amer) 64.1 BUN/Creatinine Ratio 31.9 H Glucose 209 H POC Glucose 165 H 113 H Calcium 8.6 08/19/23 08/19/23 07:37 11:32 WBC RBC Hgb Hct MCV MCH MCHC RDW Std Deviation RDW Coeff of Jun Plt Count MPV Sodium Potassium Chloride Carbon Dioxide Anion Gap BUN Creatinine Est Cr Clr Drug Dosing Est GFR ( Amer) Est GFR (Non-Af Amer) BUN/Creatinine Ratio Glucose POC Glucose 171 H 115 H Calcium Current Inpatient Medications Current Inpatient Medications: Current Inpatient Medications Acetaminophen (Acetaminophen 500 Mg Tab) 1,000 mg PO Q12H PRN PRN Reason: pain, fever, or headache Stop: 09/10/23 10:34 Last Admin: 08/15/23 20:17 Dose: 1,000 mg Apixaban (Apixaban 5 Mg Tablet) 5 mg PO BID [facility] Stop: 09/09/23 20:59 Last Admin: 08/11/23 08:52 Dose: 5 mg Cetirizine HCl (Cetirizine Hcl 10 Mg Tablet) 10 mg PO DAILY [facility] Stop: 09/10/23 08:59 Last Admin: 08/19/23 09:08 Dose: 10 mg Dextrose (Dextrose 50% 50 Ml Syringe) 25 - 50 ml IV UD PRN; Protocol PRN Reason: Hypoglycemia Protocol Stop: 09/09/23 20:47 Diclofenac Sodium (Diclofenac Sod 1% Gel 100 Gm Tube) 2 gm EXT BID [facility]; Protocol Stop: 09/11/23 20:59 Last Admin: 08/19/23 09:08 Dose: 2 gm Fluconazole (Fluconazole 100 Mg Tab) 400 mg PO QAM [facility] Stop: 09/18/23 08:59 Last Admin: 08/19/23 09:08 Dose: 400 mg Furosemide (Furosemide 20 Mg Tab) 20 mg PO QAM [facility] Stop: 09/13/23 14:14 Last Admin: 08/14/23 15:15 Dose: 20 mg Glucagon (Glucagon For Inj 1 Mg Vial) 1 mg SQ UD PRN; Protocol PRN Reason: Hypoglycemia Protocol Stop: 09/09/23 20:47 Glucose (Glucose 10 Tab/Tube) 4 - 8 tab PO UD PRN; Protocol PRN Reason: Hypoglycemia Treatment Stop: 09/09/23 20:47 Glucose (Glucose 40% Gel 15 Gm Tube) 15 - 30 gm PO UD PRN; Protocol PRN Reason: Hypoglycemia Protocol Stop: 09/09/23 20:47 Insulin Aspart (Insulin Aspart Per Unit Charge) 0 units SC ACHS [facility] Stop: 09/09/23 20:59 Last Admin: 08/19/23 12:33 Dose: Not Given Insulin Glargine (Lantus Per Unit Charge) 12 units SQ BID [facility] Stop: 09/14/23 20:59 Last Admin: 08/17/23 22:10 Dose: Not Given Insulin Glargine (Lantus Per Unit Charge) 4 units SQ HS [facility] Stop: 09/16/23 20:59 Last Admin: 08/18/23 21:03 Dose: 4 units Lactulose (Lactulose Syrup 20 Gm/30 Ml Udc) 20 gm PO DAILY [facility] Stop: 09/14/23 12:29 Last Admin: 08/18/23 08:29 Dose: 20 gm Magnesium Oxide (Magnesium Oxide 400 Mg Tab) 400 mg PO BID [facility] Stop: 09/10/23 08:59 Last Admin: 08/19/23 09:08 Dose: 400 mg Metoprolol Succinate (Metoprolol Succ 25mg Ext Rel Tab) 25 mg PO BID [facility] Stop: 09/09/23 20:59 Last Admin: 08/19/23 09:08 Dose: Not Given Miscellaneous (Carbohydrates For Hypoglycemia ) 15 - 30 gm PO UD PRN PRN Reason: Hypoglycemia Protocol Stop: 09/09/23 20:47 Ondansetron HCl (Ondansetron Inj 2 Mg/Ml 2 Ml Vial) 4 mg IV Q6H PRN PRN Reason: Nausea Stop: 09/09/23 20:47 Last Admin: 08/16/23 08:51 Dose: 4 mg Oxycodone HCl (Oxycodone Hcl Ir 5 Mg Tab (Immediate Release)) 5 mg PO Q4H PRN PRN Reason: moderate to severe pain Stop: 08/25/23 10:34 Pantoprazole Sodium (Pantoprazole 40 Mg Tab) 40 mg PO BID [facility] Stop: 09/09/23 20:59 Last Admin: 08/19/23 09:09 Dose: 40 mg Polyethylene Glycol (Polyethylene (Miralax) 17 Gm Pack) 17 gm PO BID [facility] Stop: 09/12/23 20:59 Last Admin: 08/19/23 09:09 Dose: Not Given Promethazine HCl (Promethazine Hcl 25 Mg Tab) 12.5 mg PO TID PRN PRN Reason: nausea and vomiting Stop: 09/09/23 20:47 Quetiapine Fumarate (Quetiapine Fumarate 25 Mg Tablet) 75 mg PO HS [facility] Stop: 09/09/23 20:59 Last Admin: 08/18/23 21:05 Dose: 75 mg Quetiapine Fumarate (Quetiapine Fumarate 25 Mg Tablet) 25 mg PO QAM [facility] Stop: 09/10/23 08:59 Last Admin: 08/19/23 09:08 Dose: 25 mg Sucralfate (Sucralfate 1 Gm/10 Ml Udc) 1 gm PO QID [facility] Stop: 09/13/23 16:59 Last Admin: 08/19/23 12:33 Dose: 1 gm Thiamine HCl (Thiamine Hcl 100 Mg Tab) 200 mg PO QAM [facility] Stop: 09/15/23 08:59 Last Admin: 08/19/23 09:08 Dose: 200 mg Venlafaxine HCl (Venlafaxine Hcl Xr 150 Mg Capxr) 150 mg PO HS [facility] Stop: 09/09/23 20:59 Last Admin: 08/18/23 21:06 Dose: 150 mg Venlafaxine HCl (Venlafaxine Hcl Xr 75 Mg Capxr) 75 mg PO HS [facility] Stop: 09/10/23 20:59 Last Admin: 08/18/23 21:05 Dose: 75 mg
--- NOTE | 2023-08-19 19:18 | Hospitalist Progress Note ---
Date of Service August 19, 2023 Assessment & Plan (1) Generalized weakness: Plan: multifactorial - anemia, deconditioning, recent UTI, cirrhosis, depression, B1 deficiency, etc. cont PT, OT. repeat CBC am. replace low B1 (see below). (2) GI bleeding: Plan: concern for such earlier in the admission but uncertain. s/p 2 units PRBCs this admission. s/p venofer IV x 2 doses. GI consulted; endoscopic eval deferred. source of presumed bleeding/anemia uncertain. remains on PPI twice daily + carafate QID. repeat CBC am. consider 1 additional run of IV venofer. (3) Fecal impaction in rectum: Plan: resolved cont bowel maintenance - lactulose etc (4) Anemia: Plan: s/p 2 units PRBCs this admission. Fe studies c/w Fe def anemia with ferritin of 15. s/p 2 runs of IV venofer - consider a 3rd dose. Eliquis on hold due to concern for GI bleeding. If repeat CBC is stable tomorrow will resume Eliquis. B12/folate wnl (5) Cirrhosis of liver: Plan: LFTs stable CBC stable AFP negative no evidence of hepatic encephalopathy no decompensated cirrhosis cont lactulose for HE prophylaxis (6) Paroxysmal A-fib: Plan: examines NSR today cont metoprolol succ 25mg BID Eliquis on hold due to concerns for GI bleeding but resume tomorrow if CBC stable (7) Diabetes mellitus type 2, insulin dependent: Plan: Hba1c 6.5% episodes of hypoglycemia here lantus reduced to 4 units daily - hypoglycemia resolved cont novolog trend BSGs if she continues with lows consider checking cortisol level (8) Cryptococcal meningitis: Plan: cont fluconazole prophylaxis - creatinine stable thus resumed 400mg/day LFTs are stable 08/10 EKG with stable QTc last MRI this fall with leptomeningeal enhancement - smoldering, low-grade infection? (9) Hypertension: Plan: cont meto succ BID controlled (10) Depression: Plan: continue home venlafaxine 225mg/day appears to have ongoing depression despite the effexor I consulted Dr Masters from psych - he added back remeron 30mg HS hopefully this will help her sleep & appetite (11) Anxiety: Plan: cont venlafaxine (12) Sacral fracture: Plan: possible noted s3 lucency on imaging pain control nonoperative she has not mentioned any pain to me in sacral region (13) Thiamine deficiency: Plan: B1 level undetectable increase thiamine to 200mg BID x 30 days certainly could be contributing to chronic fatigue, altered MS, etc Plan Patient identified as a "Target" Once Target process has been completed she will be transferred to [facility] son updated by phone this evening Admission and Anticipated Discharge Date Admission Date: August 12, 2023 Subjective patient had multiple BMs this am -- prior to lactulose enema, and after such she feels better today no nausea/emesis appetite still fair at best no other new complaints she was fairly sharp today mentally with dates/events/etc Review of Systems Review of Systems: gen - mild fatigue cv - no chest pain pulm - no dyspnea Physical Exam Physical Exam: gen - very thin, NAD mouth - MMM neck - no JVD heart - RRR, s1 s2, no murmur lungs - CTA b/l abd - soft NT ND BS+ ext - no edema, pulses 2+ b/l psych - a/o x 3 today Results & Data Results & Data Vital Signs (Past 12 Hours) Vital Signs Temp Pulse Resp BP Pulse Ox O2 Del Method 08/19/23 15:09 36.5 C 68 15 126/73 100 Room Air 08/19/23 07:27 36.2 C L 57 L 15 106/69 97 Room Air Laboratory Results Laboratory Results - last 48 hr 08/16/23 08/18/23 08/19/23 06:12 20:06 06:18 WBC 4.76 L RBC 3.44 L Hgb 9.6 L Hct 30.6 L MCV 89.0 MCH 27.9 MCHC 31.4 L RDW Std Deviation 53.9 H RDW Coeff of Jun 16.8 H Plt Count 116 L MPV 11.2 Sodium 141 Potassium 4.2 Chloride 108 H Carbon Dioxide 28 Anion Gap 5 BUN 30 H Creatinine 0.94 Est Cr Clr Drug Dosing 47.3 Est GFR ( Amer) 74.3 Est GFR (Non-Af Amer) 64.1 BUN/Creatinine Ratio 31.9 H Glucose 209 H POC Glucose 113 H Calcium 8.6 Vitamin B1 <6 L 08/19/23 08/19/23 08/19/23 07:37 11:32 16:48 WBC RBC Hgb Hct MCV MCH MCHC RDW Std Deviation RDW Coeff of Jun Plt Count MPV Sodium Potassium Chloride Carbon Dioxide Anion Gap BUN Creatinine Est Cr Clr Drug Dosing Est GFR ( Amer) Est GFR (Non-Af Amer) BUN/Creatinine Ratio Glucose POC Glucose 171 H 115 H 187 H Calcium Vitamin B1 PG Care Time/CCT Total # of Minutes Spent Total Time Spent with Patient: Total time spent is greater than 50% in coordination of care (as documented) at patient's floor/unit and/or counseling patient: Coding Level of Care Code 38770 SUB INP/OBS CARE 2/35MIN Diagnoses Generalized weakness R53.1 GI bleeding K92.2 Fecal impaction in rectum K56.41 Anemia D62 Anemia type: other cause Other causes of anemia: acute posthemorrhagic Cirrhosis of liver K74.60 Paroxysmal A-fib I48.0 Diabetes mellitus type 2, insulin dependent E11.9; Z79.4 Cryptococcal meningitis B45.1 Essential hypertension I10 Hypertension type: essential hypertension Depression, unspecified depression type F32.9 Depression Type: unspecified Anxiety F41.9 Sacral fracture S32.10XA Thiamine deficiency E51.9 (4) Anemia Anemia type: other cause Other causes of anemia: acute posthemorrhagic Qualified Code(s): D62 - Acute posthemorrhagic anemia (9) Hypertension Hypertension type: essential hypertension Qualified Code(s): I10 - Essential (primary) hypertension (10) Depression Depression Type: unspecified Qualified Code(s): F32.9 - Major depressive disorder, single episode, unspecified
[2023-08-19] MEDS: LANTUS PER UNIT CHARGE SQ SCH (20:45)
[2023-08-19] MEDS: MIRTAZAPINE TAB 15 MG TAB PO SCH (20:46)
[2023-08-20] MEDS: INSULIN ASPART PER UNIT CHARGE SC SCH ×4 (07:56→20:52)
[2023-08-20] MEDS: VENLAFAXINE HCL XR 75 MG CAPXR PO SCH (09:31)
[2023-08-20] MEDS: VENLAFAXINE HCL XR 150 MG CAPXR PO SCH (09:31)
[2023-08-20] MEDS: CETIRIZINE HCL 10 MG TABLET PO SCH (09:32)
[2023-08-20] MEDS: FLUCONAZOLE 100 MG TAB PO SCH (09:32)
[2023-08-20] MEDS: DICLOFENAC SOD 1% GEL 100 GM TUBE EXT SCH ×2 (09:32→20:52)
[2023-08-20] MEDS: METOPROLOL SUCC 25MG EXT REL TAB PO SCH ×2 (09:32→20:54)
[2023-08-20] MEDS: SUCRALFATE 1 GM/10 ML UDC PO SCH ×4 (09:32→20:56)
[2023-08-20] MEDS: QUEtiapine FUMARATE 25 MG TABLET PO SCH ×2 (09:32→20:53)
[2023-08-20] MEDS: PANTOprazole 40 MG TAB PO SCH ×2 (09:32→20:56)
[2023-08-20] MEDS: MAGNESIUM OXIDE 400 MG TAB PO SCH ×2 (09:32→20:53)
[2023-08-20] MEDS: POLYETHYLENE (MIRALAX) 17 GM PACK PO SCH (09:33)
[2023-08-20] MEDS: THIAMINE HCL 100 MG TAB PO SCH ×2 (09:37→20:55)
[2023-08-20 09:39] LABS: Hematocrit (blood only) 31.8 % (37.0-47.0); Mean Corpuscular Hemoglobin 27.7 pg (25.0-34.0); Mean Corpuscular Hgb Conc 31.4 g/dL (32.0-36.0); Mean Corpuscular Volume 88.1 fL (80.0-100.0); Mean Platelet Volume 10.8 fL (9.4-12.4); Platelet Count 122 K/uL (130-400); RDW Coefficient of Variation 16.6 % (11.5-14.5); Red Blood Count 3.61 M/uL (4.20-5.40); White Blood Count 4.25 K/ul (4.8-10.8)
[2023-08-20] MEDS ORDERED: APIXABAN 5 MG TABLET PO ONE (10:45)
--- NOTE | 2023-08-20 20:16 | Hospitalist Progress Note ---
Date of Service August 20, 2023 Assessment & Plan (1) Generalized weakness: Plan: multifactorial - anemia, deconditioning, recent UTI, cirrhosis, depression, B1 deficiency, etc. slowly improving. treat individual issues. cont PT, OT. (2) GI bleeding: Plan: concern for such earlier in the admission but uncertain. s/p 2 units PRBCs this admission. s/p venofer IV x 2 doses. GI consulted; endoscopic eval deferred. source of presumed bleeding/anemia uncertain. remains on PPI twice daily + carafate QID. repeat CBC today stable. consider 1 additional run of IV venofer. (3) Fecal impaction in rectum: Plan: resolved cont bowel maintenance - lactulose etc (4) Anemia: Plan: s/p 2 units PRBCs this admission. Fe studies c/w Fe def anemia with ferritin of 15. s/p 2 runs of IV venofer - consider a 3rd dose. Eliquis on hold due to concern for GI bleeding. Since CBC remains stable with no overt GI bleeding will resume Eliquis 5mg BID. B12/folate wnl (5) Cirrhosis of liver: Plan: LFTs stable CBC stable AFP negative no evidence of hepatic encephalopathy no decompensated cirrhosis cont lactulose for HE prophylaxis (6) Paroxysmal A-fib: Plan: cont metoprolol succ 25mg BID resume Eliquis as CBC is stable (7) Diabetes mellitus type 2, insulin dependent: Plan: Hba1c 6.5% BSGs now increasing since appetite is better increase lantus to 4 units BID cont novolog trend BSGs (8) Cryptococcal meningitis: Plan: cont fluconazole prophylaxis - creatinine stable thus resumed 400mg/day LFTs are stable 08/10 EKG with stable QTc last MRI this fall with leptomeningeal enhancement - smoldering, low-grade infection? (9) Hypertension: Plan: cont meto succ BID controlled (10) Depression: Plan: continue home venlafaxine 225mg/day appears to have ongoing depression despite the effexor I consulted Dr Masters from psych - he added back remeron 30mg HS hopefully this will help her sleep & appetite (11) Anxiety: Plan: cont venlafaxine (12) Sacral fracture: Plan: possible noted s3 lucency on imaging no report of pain in several days (13) Thiamine deficiency: Plan: B1 level undetectable thiamine 200mg BID x 30 days certainly could be contributing to chronic fatigue, altered MS, etc (14) Pancytopenia: Plan: likely 2nd to liver disease TSH, B12, folate all wnl (15) History of pulmonary embolus (PE): Plan: with DVT 2021 resume Eliquis 5mg BID today Plan Patient identified as a "Target" Once Target process has been completed she will be transferred to [facility] son updated by phone yesterday evening Admission and Anticipated Discharge Date Admission Date: August 12, 2023 Subjective no new complaints slept better last night eating is a little better overall good day Review of Systems Review of Systems: cv- no chest pain pulm- no dyspnea, no [facility] GI- no abd pain; no nausea/emesis Physical Exam Physical Exam: gen - very thin, NAD, looks good today mouth - MMM neck - no JVD heart - RRR, s1 s2, no murmur lungs - CTA b/l abd - soft NT ND BS+ ext - no edema, pulses 2+ b/l psych - a/o x 3 today Results & Data Results & Data Vital Signs (Past 12 Hours) Vital Signs Temp Pulse Resp BP Pulse Ox O2 Del Method 08/20/23 15:08 36.3 C L 72 17 125/82 100 Room Air Laboratory Results Laboratory Results - last 24 hr 08/20/23 07:36 103 H 08/20/23 08/20/23 08/20/23 09:19 11:24 16:42 WBC 4.25 L RBC 3.61 L Hgb 10.0 L Hct 31.8 L MCV 88.1 MCH 27.7 MCHC 31.4 L RDW Std Deviation 53.0 H RDW Coeff of Jun 16.6 H Plt Count 122 L MPV 10.8 POC Glucose 116 H 179 H PG Care Time/CCT Total # of Minutes Spent Total Time Spent with Patient: Total time spent is greater than 50% in coordination of care (as documented) at patient's floor/unit and/or counseling patient: Coding Level of Care Code 29571 SUB INP/OBS CARE 10/20MIN Diagnoses Generalized weakness R53.1 GI bleeding K92.2 Fecal impaction in rectum K56.41 Anemia D62 Anemia type: other cause Other causes of anemia: acute posthemorrhagic Cirrhosis of liver K74.60 Paroxysmal A-fib I48.0 Diabetes mellitus type 2, insulin dependent E11.9; Z79.4 Cryptococcal meningitis B45.1 Essential hypertension I10 Hypertension type: essential hypertension Depression, unspecified depression type F32.9 Depression Type: unspecified Anxiety F41.9 Sacral fracture S32.10XA Thiamine deficiency E51.9 Pancytopenia D61.818 History of pulmonary embolus (PE) Z86.711 (4) Anemia Anemia type: other cause Other causes of anemia: acute posthemorrhagic Qu alified Code(s): D62 - Acute posthemorrhagic anemia (9) Hypertension Hypertension type: essential hypertension Qualified Code(s): I10 - Essential (primary) hypertension (10) Depression Depression Type: unspecified Qualified Code(s): F32.9 - Major depressive disorder, single episode, unspecified
[2023-08-20] MEDS: MIRTAZAPINE TAB 15 MG TAB PO SCH (20:52)
[2023-08-20] MEDS: APIXABAN 5 MG TABLET PO SCH (20:54)
[2023-08-20] MEDS: LANTUS PER UNIT CHARGE SQ SCH (21:01)
[2023-08-21] MEDS: VENLAFAXINE HCL XR 75 MG CAPXR PO SCH (08:13)
[2023-08-21] MEDS: VENLAFAXINE HCL XR 150 MG CAPXR PO SCH (08:13)
[2023-08-21] MEDS: INSULIN ASPART PER UNIT CHARGE SC SCH ×4 (08:13→19:55)
[2023-08-21] MEDS: METOPROLOL SUCC 25MG EXT REL TAB PO SCH ×2 (08:14→19:59)
[2023-08-21] MEDS: FLUCONAZOLE 100 MG TAB PO SCH (08:14)
[2023-08-21] MEDS: APIXABAN 5 MG TABLET PO SCH ×2 (08:14→19:58)
[2023-08-21] MEDS: QUEtiapine FUMARATE 25 MG TABLET PO SCH ×2 (08:14→19:57)
[2023-08-21] MEDS: CETIRIZINE HCL 10 MG TABLET PO SCH (08:14)
[2023-08-21] MEDS: PANTOprazole 40 MG TAB PO SCH ×2 (08:14→19:58)
[2023-08-21] MEDS: THIAMINE HCL 100 MG TAB PO SCH ×2 (08:14→19:58)
[2023-08-21] MEDS: MAGNESIUM OXIDE 400 MG TAB PO SCH ×2 (08:14→19:58)
[2023-08-21] MEDS: SUCRALFATE 1 GM/10 ML UDC PO SCH ×4 (08:14→19:56)
[2023-08-21] MEDS: DICLOFENAC SOD 1% GEL 100 GM TUBE EXT SCH ×2 (08:15→19:56)
[2023-08-21] MEDS: LACTULOSE SYRUP 20 GM/30 ML UDC PO SCH (09:55)
[2023-08-21] MEDS ORDERED: LANTUS PER UNIT CHARGE SQ ONE (10:44)
[2023-08-21] MEDS: LANTUS PER UNIT CHARGE SQ SCH (19:56)
[2023-08-21] MEDS: MIRTAZAPINE TAB 15 MG TAB PO SCH (19:57)
--- NOTE | 2023-08-21 20:30 | Hospitalist Progress Note ---
Date of Service August 21, 2023 Assessment & Plan (1) Generalized weakness: Plan: multifactorial - anemia, deconditioning, recent UTI, cirrhosis, depression, B1 deficiency, etc. improving nicely. treat individual issues. cont PT, OT. (2) GI bleeding: Plan: concern for such earlier in the admission but uncertain. s/p 2 units PRBCs this admission. s/p venofer IV x 2 doses. GI consulted; endoscopic eval deferred. source of presumed bleeding/anemia uncertain. remains on PPI twice daily + carafate QID. repeat CBC today stable. will give 1 additional run of IV venofer tomorrow (that would be dose #3 this admission). (3) Fecal impaction in rectum: Plan: resolved cont bowel maintenance - lactulose etc (4) Anemia: Plan: s/p 2 units PRBCs this admission. Fe studies c/w Fe def anemia with ferritin of 15. s/p 2 runs of IV venofer - give 3rd dose tomorrow. Eliquis on hold due to concern for GI bleeding. Since CBC remains stable with no overt GI bleeding resumed Eliquis 5mg BID. 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 (9) Hypertension: Plan: cont meto succ BID controlled (10) Depression: Plan: continue home venlafaxine 225mg/day appears to have ongoing depression despite the effexor I consulted Dr Masters from psych - he added back remeron 30mg HS hopefully this will help her sleep & appetite - seems to be helping already (11) Anxiety: Plan: cont venlafaxine (12) Sacral fracture: Plan: possible noted s3 lucency on imaging no report of pain in several days (13) Thiamine deficiency: Plan: B1 level undetectable thiamine 200mg BID x 30 days certainly could be contributing to chronic fatigue, altered MS, etc (14) Pancytopenia: Plan: likely 2nd to liver disease TSH, B12, folate all wnl check cbc in 48 hours for stability (15) History of pulmonary embolus (PE): Plan: with DVT 2021 resumed Eliquis 5mg BID today Plan Patient identified as a "Target" Once Target process has been completed she will be transferred to [facility] son updated by phone 2 days ago Admission and Anticipated Discharge Date Admission Date: August 12, 2023 Subjective feels well no new complaints moving bowels slept good last night once again appetite today was best it was in "long time" Review of Systems Review of Systems: cv - no chest pain pulm - no dyspnea Physical Exam Physical Exam: gen - very thin, NAD, looks great today mouth - MMM neck - no JVD heart - RRR, s1 s2, no murmur lungs - CTA b/l abd - soft NT ND BS+ ext - no edema, pulses 2+ b/l psych - a/o x 3 ; no hallucinations or delusions Results & Data Results & Data Vital Signs (Past 12 Hours) Vital Signs Temp Pulse Resp BP Pulse Ox O2 Del Method 08/21/23 19:53 36.8 C 71 16 120/75 99 Room Air 08/21/23 15:16 36.4 C L 75 18 121/74 100 Room Air Laboratory Results Laboratory Results - last 24 hr 08/20/23 08/21/23 08/21/23 20:33 07:31 11:36 POC Glucose 152 H 222 H 166 H 08/21/23 08/21/23 16:34 19:48 POC Glucose 125 H 163 H PG Care Time/CCT Total # of Minutes Spent Total Time Spent with Patient: Total time spent is greater than 50% in coordination of care (as documented) at patient's floor/unit and/or counseling patient: Coding Level of Care Code 18433 SUB INP/OBS CARE 125MIN Diagnoses Generalized weakness R53.1 GI bleeding K92.2 Fecal impaction in rectum K56.41 Anemia D62 Anemia type: other cause Other causes of anemia: acute posthemorrhagic Cirrhosis of liver K74.60 Paroxysmal A-fib I48.0 Diabetes mellitus type 2, insulin dependent E11.9; Z79.4 Cryptococcal meningitis B45.1 Essential hypertension I10 Hypertension type: essential hypertension Depression, unspecified depression type F32.9 Depression Type: unspecified Anxiety F41.9 Sacral fracture S32.10XA Thiamine deficiency E51.9 Pancytopenia D61.818 History of pulmonary embolus (PE) Z86.711 (4) Anemia Anemia type: other cause Other causes of anemia: acute posthemorrhagic Qualified Code(s): D62 - Acute posthemorrhagic anemia (9) Hypertension Hypertension type: essential hypertension Qualified Code(s): I10 - Essential (primary) hypertension (10) Depression Depression Type: unspecified Qualified Code(s): F32.9 - Major depressive disorder, single episode, unspecified
[2023-08-22] MEDS: INSULIN ASPART PER UNIT CHARGE SC SCH ×4 (08:42→20:47)
[2023-08-22] MEDS: METOPROLOL SUCC 25MG EXT REL TAB PO SCH ×2 (08:43→19:41)
[2023-08-22] MEDS: THIAMINE HCL 100 MG TAB PO SCH ×2 (08:43→19:42)
[2023-08-22] MEDS: MAGNESIUM OXIDE 400 MG TAB PO SCH ×2 (08:43→19:40)
[2023-08-22] MEDS: PANTOprazole 40 MG TAB PO SCH ×2 (08:43→19:44)
[2023-08-22] MEDS: QUEtiapine FUMARATE 25 MG TABLET PO SCH ×2 (08:44→19:41)
[2023-08-22] MEDS: VENLAFAXINE HCL XR 75 MG CAPXR PO SCH (08:44)
[2023-08-22] MEDS: VENLAFAXINE HCL XR 150 MG CAPXR PO SCH (08:44)
[2023-08-22] MEDS: APIXABAN 5 MG TABLET PO SCH ×2 (08:44→19:42)
[2023-08-22] MEDS: LACTULOSE SYRUP 20 GM/30 ML UDC PO SCH (08:44)
[2023-08-22] MEDS: SUCRALFATE 1 GM/10 ML UDC PO SCH ×4 (08:44→19:43)
[2023-08-22] MEDS: FLUCONAZOLE 100 MG TAB PO SCH (08:44)
[2023-08-22] MEDS: CETIRIZINE HCL 10 MG TABLET PO SCH (08:44)
[2023-08-22] MEDS: DICLOFENAC SOD 1% GEL 100 GM TUBE EXT SCH ×2 (08:44→19:43)
[2023-08-22] MEDS: LANTUS PER UNIT CHARGE SQ SCH ×2 (08:55→20:47)
[2023-08-22] MEDS ORDERED: IRON SUCROSE 200 MG in 0.9 % SODIUM CHLORIDE 100 ML IV ONE (10:20)
[2023-08-22] MEDS: MIRTAZAPINE TAB 15 MG TAB PO SCH (19:45)
--- NOTE | 2023-08-22 21:55 | Hospitalist Progress Note ---
Date of Service August 22, 2023 Assessment & Plan (1) Generalized weakness: Plan: improving nicely with treating the following issues - anemia, deconditioning, recent UTI, cirrhosis, depression, B1 deficiency, severe constipation/impaction, etc. cont PT, OT. (2) GI bleeding: Plan: concern for such earlier in the admission. s/p 2 units PRBCs this admission. s/p venofer IV x 2 doses. gave a 3rd dose today. GI consulted; endoscopic eval deferred. source of presumed bleeding/anemia uncertain. remains on PPI twice daily + carafate QID. most recent CBC stable (Hb 10). recheck CBC in 2-3 days for stability. (3) Fecal impaction in rectum: Plan: resolved cont bowel maintenance - lactulose etc moving bowels daily at this point (4) Anemia: Plan: s/p 2 units PRBCs earlier this admission. Lowest Hb was 6.6 on 08/12/23. Fe studies c/w Fe def anemia with ferritin of 15. s/p 2 runs of IV venofer - give 3rd dose today. Eliquis was on hold due to concern for GI bleeding. Since CBC remains stable with no overt GI bleeding resumed Eliquis 5mg BID. B12/folate wnl repeat CBC in 48 hours for stability. 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 - but no signs of such clinically at this time check LFTs in 2-3 days to ensure stability (9) Hypertension: Plan: cont meto succ BID controlled (10) Depression: Plan: continue home venlafaxine 225mg/day has had ongoing depression despite the effexor Dr Masters from psych consulted - he added back remeron 30mg HS this is already helping her sleep & appetite (11) Anxiety: Plan: cont venlafaxine (12) Sacral fracture: Plan: possible noted s3 lucency on imaging early in the stay no report of pain in several days (13) Thiamine deficiency: Plan: B1 level undetectable thiamine 200mg BID x 30 days certainly could be contributing to chronic fatigue, altered MS, etc (14) Pancytopenia: Plan: likely 2nd to liver disease TSH, B12, folate all wnl check cbc in 48 hours for stability (15) History of pulmonary embolus (PE): Plan: with DVT 2021 Eliquis 5mg BID Plan Patient identified as a "Target" Once Target process has been completed she will be transferred to [facility] son updated by phone over the weekend social work was in touch today with [facility] as well as [facility] placement is in process Admission and Anticipated Discharge Date Admission Date: August 12, 2023 Subjective had a good day today feels well "eating everything" sleeping ok at night no new complaints she is aware that things are moving forward with [facility] for placement Review of Systems Review of Systems: cv - no chest pain pulm - no dyspnea or cough GI - no abd pain/nausea/emesis Physical Exam Physical Exam: gen - NAD, looks well mouth - MMM neck - no JVD heart - RRR, s1 s2, no murmur lungs - CTA b/l abd - soft NT ND BS+ ext - no edema, pulses 2+ b/l psych - a/o x 3 Results & Data Results & Data Vital Signs (Past 12 Hours) Vital Signs Temp Pulse Resp BP Pulse Ox O2 Del Method 08/22/23 15:53 37.1 C 69 18 128/77 96 Room Air Laboratory Results Laboratory Results - last 24 hr 08/22/23 08/22/23 08/22/23 07:38 11:36 16:37 POC Glucose 112 H 148 H 97 08/22/23 20:33 POC Glucose 132 H PG Care Time/CCT Total # of Minutes Spent Total Time Spent with Patient: Total time spent is greater than 50% in coordination of care (as documented) at patient's floor/unit and/or counseling patient: Coding Level of Care Code 58372 SUB INP/OBS CARE 1/25MIN Diagnoses Generalized weakness R53.1 GI bleeding K92.2 Fecal impaction in rectum K56.41 Anemia D62 Anemia type: other cause Other causes of anemia: acute posthemorrhagic Cirrhosis of liver K74.60 Paroxysmal A-fib I48.0 Diabetes mellitus type 2, insulin dependent E11.9; Z79.4 Cryptococcal meningitis B45.1 Essential hypertension I10 Hypertension type: essential hypertension Depression, unspecified depression type F32.9 Depression Type: unspecified Anxiety F41.9 Sacral fracture S32.10XA Thiamine deficiency E51.9 Pancytopenia D61.818 History of pulmonary embolus (PE) Z86.711 (4) Anemia Anemia type: other cause Other causes of anemia: acute posthemorrhagic Qualified Code(s): D62 - Acute posthemorrhagic anemia (9) Hypertension Hypertension type: essential hypertension Qualified Code(s): I10 - Essential (primary) hypertension (10) Depression Depression Type: unspecified Qualified Code(s): F32.9 - Major depressive disorder, single episode, unspecified
--- NOTE | 2023-08-23 07:38 | Hospitalist Progress Note ---
Date of Service August 23, 2023 Assessment & Plan (1) Thiamine deficiency: Plan: B1 level undetectable, started on thiamine 200mg BID x 30 days 08/23 given her potential neuropsychiatric symptoms and weakness cannot rule out component of Wernicke encephalopathy so will start IV replacement 500 mg q8h x 9 doses in case of incomplete oral absorption (2) Generalized weakness: Plan: multifactorial - anemia, deconditioning, recent UTI, cirrhosis, depression, B1 deficiency, etc. improving nicely. treat individual issues. cont PT, OT. (3) GI bleeding: Plan: concern for such earlier in the admission but uncertain. s/p 2 units PRBCs this admission. s/p venofer IV x 3 doses. GI consulted; endoscopic eval deferred. source of presumed bleeding/anemia uncertain. remains on PPI twice daily + carafate QID. monitor CBC periodically (4) Fecal impaction in rectum: Plan: resolved cont bowel maintenance - lactulose etc (5) Anemia: Plan: s/p 2 units PRBCs this admission. Fe studies c/w Fe def anemia with ferritin of 15. 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 (10) Hypertension: Plan: cont meto succ BID controlled - BP normal 08/23 (11) Depression: Plan: continue home venlafaxine 225mg/day appears to have ongoing depression despite the effexor I consulted Dr Masters from psych - he added back remeron 30mg HS hopefully this will help her sleep & appetite - seems to be helping already (12) Anxiety: Plan: cont venlafaxine (13) Sacral fracture: Plan: possible noted s3 lucency on imaging no report of pain in several days (14) Pancytopenia: Plan: likely 2nd to liver disease TSH, B12, folate all wnl check cbc in 48 hours for stability (15) History of pulmonary embolus (PE): Plan: with DVT 2021 resumed Eliquis 5mg BID Plan Discussed with care coordination 08/23 - Target process has been completed, working on SNF placement for rehab son updated by phone 3 days ago Admission and Anticipated Discharge Date Admission Date: August 12, 2023 Subjective this morning she was feeling very anxious and worried but improved to the time I saw her midmorning after receiving her morning medications. She is worried about some financial difficulties reported by her daughter over the phone Physical Exam Physical Exam: PHYSICAL EXAMINATION Last 24h vital signs reviewed, see documentation in flowsheet General: comfortable appearing, no distress HEENT: Normocephalic, atraumatic, pupils round and equal, sclerae anicteric, no conjunctival injection, moist mucus membranes Lungs: Normal respiratory effort. Clear to auscultation bilaterally. No RRW Heart: Regular rate and rhythm, no murmurs. No JVD Abdomen: Soft, nontender, nondistended. Bowel sounds present. Extremities: Warm, dry, well-perfused. No extremity edema. Neuro: EOMI Alert and oriented x 4, face symmetric, moves 4 extremities well Psych: anxious affect and normal behavior Results & Data Results & Data Vital Signs (Past 12 Hours) Vital Signs Temp Pulse Resp BP Pulse Ox O2 Del Method 08/22/23 22:17 36.9 C 72 16 101/59 L 97 Room Air PG Care Time/CCT Total # of Minutes Spent Total Time Spent with Patient: Total time spent is greater than 50% in coordination of care (as documented) at patient's floor/unit and/or counseling patient: Coding Level of Care Code 13478 SUB INP/OBS CARE 2/35MIN Diagnoses Thiamine deficiency E51.9 Generalized weakness R53.1 GI bleeding K92.2 Fecal impaction in rectum K56.41 Anemia D62 Anemia type: other cause Other causes of anemia: acute posthemorrhagic Cirrhosis of liver K74.60 Paroxysmal A-fib I48.0 Diabetes mellitus type 2, insulin dependent E11.9; Z79.4 Cryptococcal meningitis B45.1 Essential hypertension I10 Hypertension type: essential hypertension Depression, unspecified depression type F32.9 Depression Type: unspecified Anxiety F41.9 Sacral fracture S32.10XA Pancytopenia D61.818 History of pulmonary embolus (PE) Z86.711 (5) Anemia Anemia type: other cause Other causes of anemia: acute posthemorrhagic Qualified Code(s): D62 - Acute posthemorrhagic anemia (10) Hypertension Hypertension type: essential hypertension Qualified Code(s): I10 - Essential (primary) hypertension (11) Depression Depression Type: unspecified Qualified Code(s): F32.9 - Major depressive disorder, single episode, unspecified
[2023-08-23] MEDS: INSULIN ASPART PER UNIT CHARGE SC SCH ×4 (08:05→20:29)
[2023-08-23] MEDS: VENLAFAXINE HCL XR 150 MG CAPXR PO SCH (08:06)
[2023-08-23] MEDS: CETIRIZINE HCL 10 MG TABLET PO SCH (08:06)
[2023-08-23] MEDS: FLUCONAZOLE 100 MG TAB PO SCH (08:06)
[2023-08-23] MEDS: MAGNESIUM OXIDE 400 MG TAB PO SCH ×2 (08:06→20:31)
[2023-08-23] MEDS: METOPROLOL SUCC 25MG EXT REL TAB PO SCH ×2 (08:06→20:33)
[2023-08-23] MEDS: VENLAFAXINE HCL XR 75 MG CAPXR PO SCH (08:06)
[2023-08-23] MEDS: QUEtiapine FUMARATE 25 MG TABLET PO SCH ×2 (08:06→20:31)
[2023-08-23] MEDS: APIXABAN 5 MG TABLET PO SCH ×2 (08:07→20:30)
[2023-08-23] MEDS: DICLOFENAC SOD 1% GEL 100 GM TUBE EXT SCH ×2 (08:07→20:29)
[2023-08-23] MEDS: SUCRALFATE 1 GM/10 ML UDC PO SCH ×4 (08:07→20:30)
[2023-08-23] MEDS: LACTULOSE SYRUP 20 GM/30 ML UDC PO SCH (08:07)
[2023-08-23] MEDS: LANTUS PER UNIT CHARGE SQ SCH ×2 (08:09→20:30)
[2023-08-23] MEDS: PANTOprazole 40 MG TAB PO SCH ×2 (08:21→20:30)
[2023-08-23] MEDS: THIAMINE HCL 500 MG in SODIUM CHLORIDE 0.9% 50 ML IV SCH ×2 (09:58→17:31)
[2023-08-23] MEDS: ACETAMINOPHEN 500 MG TAB PO PRN (15:28)
[2023-08-23] MEDS: MIRTAZAPINE TAB 15 MG TAB PO SCH (20:30)
[2023-08-24] MEDS: THIAMINE HCL 500 MG in SODIUM CHLORIDE 0.9% 50 ML IV SCH ×3 (01:22→17:35)
[2023-08-24] MEDS: LACTULOSE SYRUP 20 GM/30 ML UDC PO SCH (08:02)
[2023-08-24] MEDS: VENLAFAXINE HCL XR 150 MG CAPXR PO SCH (08:02)
[2023-08-24] MEDS: SUCRALFATE 1 GM/10 ML UDC PO SCH ×4 (08:02→20:48)
[2023-08-24] MEDS: FLUCONAZOLE 100 MG TAB PO SCH (08:03)
[2023-08-24] MEDS: VENLAFAXINE HCL XR 75 MG CAPXR PO SCH (08:03)
[2023-08-24] MEDS: PANTOprazole 40 MG TAB PO SCH ×2 (08:03→20:49)
[2023-08-24] MEDS: DICLOFENAC SOD 1% GEL 100 GM TUBE EXT SCH ×3 (08:03→20:54)
[2023-08-24] MEDS: APIXABAN 5 MG TABLET PO SCH ×2 (08:03→20:52)
[2023-08-24] MEDS: MAGNESIUM OXIDE 400 MG TAB PO SCH ×2 (08:03→20:50)
[2023-08-24] MEDS: QUEtiapine FUMARATE 25 MG TABLET PO SCH ×2 (08:03→20:50)
[2023-08-24] MEDS: CETIRIZINE HCL 10 MG TABLET PO SCH (08:03)
[2023-08-24] MEDS: METOPROLOL SUCC 25MG EXT REL TAB PO SCH ×2 (08:03→20:49)
[2023-08-24] MEDS: LANTUS PER UNIT CHARGE SQ SCH ×2 (08:21→20:59)
[2023-08-24] MEDS: INSULIN ASPART PER UNIT CHARGE SC SCH ×4 (08:21→20:59)
--- NOTE | 2023-08-24 16:32 | Hospitalist Progress Note ---
Date of Service August 24, 2023 Assessment & Plan (1) Thiamine deficiency: Plan: B1 level undetectable, started on thiamine 200mg BID x 30 days 08/23 given her potential neuropsychiatric symptoms and weakness cannot rule out component of Wernicke encephalopathy so will start IV replacement 500 mg q8h x 9 doses in case of incomplete oral absorption (2) Generalized weakness: Plan: multifactorial - anemia, deconditioning, recent UTI, cirrhosis, depression, B1 deficiency, etc. improving nicely. treat individual issues. cont PT, OT. (3) GI bleeding: Plan: concern for such earlier in the admission but uncertain. s/p 2 units PRBCs this admission. s/p venofer IV x 3 doses. GI consulted; endoscopic eval deferred. source of presumed bleeding/anemia uncertain. remains on PPI twice daily + carafate QID. monitor CBC periodically (4) Fecal impaction in rectum: Plan: resolved cont bowel maintenance - lactulose etc (5) Anemia: Plan: s/p 2 units PRBCs this admission. Fe studies c/w Fe def anemia with ferritin of 15. 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 (10) Hypertension: Plan: cont meto succ BID controlled - BP normal 08/23 (11) Depression: Plan: continue home venlafaxine 225mg/day appears to have ongoing depression despite the effexor consulted Dr Masters from psych - he added back remeron 30mg HS = sleep and appetite seem to be improving (12) Anxiety: Plan: cont venlafaxine (13) Sacral fracture: Plan: possible noted s3 lucency on imaging no report of pain (14) Pancytopenia: Plan: likely 2nd to liver disease TSH, B12, folate all wnl check cbc in 48 hours for stability (15) History of pulmonary embolus (PE): Plan: with DVT 2021 continue Eliquis 5mg BID Plan Discussed with care coordination 08/23 - Target process has been completed, working on SNF placement for rehab son updated by phone several days ago Admission and Anticipated Discharge Date Admission Date: August 12, 2023 Subjective Having a better day, feels less anxious and angry. States that she still gets angry easily. She says that her children thought she was hallucinating in the past but she has not noticed any hallucinations this week. She slept well. She sometimes has low mood but generally doing better on current medications Physical Exam Physical Exam: PHYSICAL EXAMINATION Last 24h vital signs reviewed, see documentation in flowsheet General: comfortable appearing, no distress HEENT: Normocephalic, atraumatic, pupils round and equal, sclerae anicteric, no conjunctival injection, moist mucus membranes Lungs: Normal respiratory effort. Heart: Abdomen: nondistended. Bowel sounds present. Extremities: Warm, dry, well-perfused. No extremity edema. Neuro: EOMI, conjugate, Alert and oriented x hospital and situation, face symmetric, moves 4 extremities well Psych: less anxious affect and normal behavior, made no bizarre statements, thoughts seemed more organized today as compared to yesterday Results & Data Results & Data Vital Signs (Past 12 Hours) Vital Signs Temp Pulse Resp BP Pulse Ox O2 Del Method 08/24/23 15:16 36.7 C 65 16 120/84 96 Room Air 08/24/23 07:51 36.5 C 70 16 132/77 100 Room Air PG Care Time/CCT Total # of Minutes Spent Total Time Spent with Patient: Total time spent is greater than 50% in coordination of care (as documented) at patient's floor/unit and/or counseling patient: Coding Level of Care Code 72639 SUB INP/OBS CARE 2/35MIN Diagnoses Thiamine deficiency E51.9 Generalized weakness R53.1 GI bleeding K92.2 Fecal impaction in rectum K56.41 Anemia D62 Anemia type: other cause Other causes of anemia: acute posthemorrhagic Cirrhosis of liver K74.60 Paroxysmal A-fib I48.0 Diabetes mellitus type 2, insulin dependent E11.9; Z79.4 Cryptococcal meningitis B45.1 Essential hypertension I10 Hypertension type: essential hypertension Depression, unspecified depression type F32.9 Depression Type: unspecified Anxiety F41.9 Sacral fracture S32.10XA Pancytopenia D61.818 History of pulmonary embolus (PE) Z86.711 (5) Anemia Anemia type: other cause Other causes of anemia: acute posthemorrhagic Qualified Code(s): D62 - Acute posthemorrhagic anemia (10) Hypertension Hypertension type: essential hypertension Qualified Code(s): I10 - Essential (primary) hypertension (11) Depression Depression Type: unspecified Qualified Code(s): F32.9 - Major depressive disorder, single episode, unspecified
[2023-08-24] MEDS: MIRTAZAPINE TAB 15 MG TAB PO SCH (20:48)
[2023-08-25] MEDS: THIAMINE HCL 500 MG in SODIUM CHLORIDE 0.9% 50 ML IV SCH ×3 (01:22→17:16)
[2023-08-25] MEDS: QUEtiapine FUMARATE 25 MG TABLET PO SCH ×2 (08:13→21:28)
[2023-08-25] MEDS: SUCRALFATE 1 GM/10 ML UDC PO SCH ×4 (08:13→21:30)
[2023-08-25] MEDS: METOPROLOL SUCC 25MG EXT REL TAB PO SCH ×2 (08:13→21:29)
[2023-08-25] MEDS: VENLAFAXINE HCL XR 75 MG CAPXR PO SCH (08:13)
[2023-08-25] MEDS: APIXABAN 5 MG TABLET PO SCH ×2 (08:13→21:30)
[2023-08-25] MEDS: LACTULOSE SYRUP 20 GM/30 ML UDC PO SCH (08:13)
[2023-08-25] MEDS: MAGNESIUM OXIDE 400 MG TAB PO SCH ×2 (08:13→21:29)
[2023-08-25] MEDS: FLUCONAZOLE 100 MG TAB PO SCH (08:13)
[2023-08-25] MEDS: VENLAFAXINE HCL XR 150 MG CAPXR PO SCH (08:13)
[2023-08-25] MEDS: CETIRIZINE HCL 10 MG TABLET PO SCH (08:13)
[2023-08-25] MEDS: DICLOFENAC SOD 1% GEL 100 GM TUBE EXT SCH ×2 (08:14→21:30)
[2023-08-25] MEDS: INSULIN ASPART PER UNIT CHARGE SC SCH ×4 (08:14→20:28)
[2023-08-25] MEDS: PANTOprazole 40 MG TAB PO SCH ×2 (08:14→21:28)
[2023-08-25] MEDS: LANTUS PER UNIT CHARGE SQ SCH ×2 (08:15→21:27)
--- NOTE | 2023-08-25 17:52 | Hospitalist Progress Note ---
Date of Service August 25, 2023 Assessment & Plan (1) Thiamine deficiency: Plan: B1 level undetectable, started on thiamine 200mg BID x 30 days 08/23 given her potential neuropsychiatric symptoms and weakness cannot rule out component of Wernicke encephalopathy so will start IV replacement 500 mg q8h x 9 doses in case of incomplete oral absorption 08/26 resume oral thiamine supplement which should continue indefinitely (2) Generalized weakness: Plan: multifactorial - anemia, deconditioning, recent UTI, cirrhosis, depression, B1 deficiency, etc. improving nicely. treat individual issues. cont PT, OT. (3) GI bleeding: Plan: concern for such earlier in the admission but uncertain. s/p 2 units PRBCs this admission. s/p venofer IV x 3 doses. GI consulted; endoscopic eval deferred. source of presumed bleeding/anemia uncertain. remains on PPI twice daily + carafate QID. monitor CBC periodically (4) Fecal impaction in rectum: Plan: resolved cont bowel maintenance - lactulose etc (5) Anemia: Plan: s/p 2 units PRBCs this admission. Fe studies c/w Fe def anemia with ferritin of 15. s/p 3 runs of IV venofer update CBC this weekend. 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 Follows up with [facility] ID Dr. Huggins (10) Hypertension: Plan: cont meto succ BID controlled - BP normal 08/25 (11) Depression: Plan: continue home venlafaxine 225mg/day appears to have ongoing depression despite the effexor consulted Dr Masters from psych - he added back remeron 30mg HS = sleep and appetite seem to be improving (12) Anxiety: Plan: cont venlafaxine (13) Sacral fracture: Plan: possible noted s3 lucency on imaging no report of pain (14) Pancytopenia: Plan: likely 2nd to liver disease TSH, B12, folate all wnl check cbc this weekend (15) History of pulmonary embolus (PE): Plan: with DVT 2021 continue Eliquis 5mg BID Plan Discussed with care coordination 08/23 - [employer] process has been completed, working on SNF placement for rehab son updated by phone over weekend by Dr. Landry Admission and Anticipated Discharge Date Admission Date: August 12, 2023 Subjective doing okay no changes, mood up and down, no hallucinations no physical complaints except hair is falling out - says this happened once last year and attributes it to fluconazole Physical Exam Physical Exam: PHYSICAL EXAMINATION Last 24h vital signs reviewed, see documentation in flowsheet General: comfortable appearing, no distress, sitting on bed HEENT: Normocephalic, atraumatic, pupils round and equal, sclerae anicteric, no conjunctival injection, moist mucus membranes Lungs: Normal respiratory effort. Heart: Abdomen: nondistended. Extremities: Warm, dry, well-perfused. No extremity edema. Neuro: EOMI, conjugate, Alert and oriented x hospital and situation, face symmetric, moves 4 extremities well Psych: anxious affect and normal behavior, made no bizarre statements, thoughts seemed more organized today as compared to tuesday Results & Data Results & Data Vital Signs (Past 12 Hours) Vital Signs Temp Pulse Resp BP Pulse Ox O2 Del Method 08/25/23 15:40 36.4 C L 62 18 134/80 98 Room Air 08/25/23 07:31 36.6 C 64 18 126/78 98 Room Air PG Care Time/CCT Total # of Minutes Spent Total Time Spent with Patient: Total time spent is greater than 50% in coordination of care (as documented) at patient's floor/unit and/or counseling patient: Coding Level of Care Code 00300 SUB INP/OBS CARE 10/20MIN Diagnoses Thiamine deficiency E51.9 Generalized weakness R53.1 GI bleeding K92.2 Fecal impaction in rectum K56.41 Anemia D62 Anemia type: other cause Other causes of anemia: acute posthemorrhagic Cirrhosis of liver K74.60 Paroxysmal A-fib I48.0 Diabetes mellitus type 2, insulin dependent E11.9; Z79.4 Cryptococcal meningitis B45.1 Essential hypertension I10 Hypertension type: essential hypertension Depression, unspecified depression type F32.9 Depression Type: unspecified Anxiety F41.9 Sacral fracture S32.10XA Pancytopenia D61.818 History of pulmonary embolus (PE) Z86.711 (5) Anemia Anemia type: other cause Other causes of anemia: acute posthemorrhagic Qualified Code(s): D62 - Acute posthemorrhagic anemia (10) Hypertension Hypertension type: essential hypertension Qualified Code(s): I10 - Essential (primary) hypertension (11) Depression Depression Type: unspecified Qualified Code(s): F32.9 - Major depressive disorder, single episode, unspecified
[2023-08-25] MEDS: MIRTAZAPINE TAB 15 MG TAB PO SCH (21:28)
[2023-08-26] MEDS: THIAMINE HCL 500 MG in SODIUM CHLORIDE 0.9% 50 ML IV SCH (01:56)
[2023-08-26] MEDS: APIXABAN 5 MG TABLET PO SCH ×2 (07:34→20:44)
[2023-08-26] MEDS: CETIRIZINE HCL 10 MG TABLET PO SCH (07:35)
[2023-08-26] MEDS: VENLAFAXINE HCL XR 150 MG CAPXR PO SCH (07:35)
[2023-08-26] MEDS: PANTOprazole 40 MG TAB PO SCH ×2 (07:35→20:43)
[2023-08-26] MEDS: FLUCONAZOLE 100 MG TAB PO SCH (07:35)
[2023-08-26] MEDS: MAGNESIUM OXIDE 400 MG TAB PO SCH ×2 (07:35→20:44)
[2023-08-26] MEDS: METOPROLOL SUCC 25MG EXT REL TAB PO SCH ×2 (07:35→20:43)
[2023-08-26] MEDS: THIAMINE HCL 100 MG TAB PO SCH ×2 (07:35→20:44)
[2023-08-26] MEDS: QUEtiapine FUMARATE 25 MG TABLET PO SCH ×2 (07:36→20:43)
[2023-08-26] MEDS: LACTULOSE SYRUP 20 GM/30 ML UDC PO SCH (07:36)
[2023-08-26] MEDS: DICLOFENAC SOD 1% GEL 100 GM TUBE EXT SCH ×2 (07:36→20:52)
[2023-08-26] MEDS: SUCRALFATE 1 GM/10 ML UDC PO SCH ×4 (07:37→20:45)
[2023-08-26] MEDS: VENLAFAXINE HCL XR 75 MG CAPXR PO SCH (07:40)
[2023-08-26] MEDS: INSULIN ASPART PER UNIT CHARGE SC SCH ×4 (08:57→20:49)
[2023-08-26] MEDS: LANTUS PER UNIT CHARGE SQ SCH ×2 (08:57→20:49)
[2023-08-26] MEDS ORDERED: COUGH DROP (SUGAR FREE) LOZ 24 LOZ/1 BOX BUCCAL PRN (17:19)
--- NOTE | 2023-08-26 17:19 | Hospitalist Progress Note ---
Date of Service August 26, 2023 Assessment & Plan (1) Thiamine deficiency: Plan: B1 level undetectable, started on thiamine 200mg BID x 30 days 08/23 given her potential neuropsychiatric symptoms and weakness cannot rule out component of Wernicke encephalopathy so will start IV replacement 500 mg q8h x 9 doses in case of incomplete oral absorption 08/26 resume oral thiamine supplement which should continue indefinitely (2) Generalized weakness: Plan: multifactorial - anemia, deconditioning, recent UTI, cirrhosis, depression, B1 deficiency, etc. improving nicely. treat individual issues. cont PT, OT. (3) GI bleeding: Plan: concern for such earlier in the admission but no evidence of acute GI bleeding materialized. s/p 2 units PRBCs this admission. s/p venofer IV x 3 doses. GI consulted; endoscopic eval deferred. source of anemia uncertain. remains on PPI twice daily + carafate QID. monitor CBC periodically - AM CBC (4) Fecal impaction in rectum: Plan: resolved cont bowel maintenance - lactulose etc (5) Anemia: Plan: s/p 2 units PRBCs this admission. Fe studies c/w Fe def anemia with ferritin of 15. s/p 3 runs of IV venofer update CBC this weekend. 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 Follows up with [facility] ID Dr. Huggins (10) Hypertension: Plan: cont meto succ BID controlled - BP normal 08/25 (11) Depression: Plan: continue home venlafaxine 225mg/day appears to have ongoing depression despite the effexor consulted Dr Masters from psych - he added back remeron 30mg HS = sleep and appetite seem to be improving (12) Anxiety: Plan: cont venlafaxine (13) Sacral fracture: Plan: possible noted s3 lucency on imaging no report of pain (14) Pancytopenia: Plan: likely 2nd to liver disease TSH, B12, folate all wnl check cbc this weekend (15) History of pulmonary embolus (PE): Plan: with DVT 2021 continue Eliquis 5mg BID Plan complaint of hoarseness / "lost voice" wonder about a viral syndrome though no other symptoms. Is on GERD treatment already. Voice seemed fairly normal by end of my visit -ordered lozenges Discussed with care coordination 08/23 - [employer] process has been completed, working on SNF placement for rehab son updated by phone over weekend by Dr. Landry Admission and Anticipated Discharge Date Admission Date: August 12, 2023 Subjective today notices that shes "lost her voice" and feels hoarse. No cough, nasal congestion, rhinorrhea, or increase in GERD. No sore throat. Physical Exam Physical Exam: PHYSICAL EXAMINATION Last 24h vital signs reviewed, see documentation in flowsheet General: comfortable appearing, no distress, sitting on bed HEENT: Normocephalic, atraumatic, pupils round and equal, sclerae anicteric, no conjunctival injection, moist mucus membranes voice initially soft and hoarse but later seemed fairly normal Lungs: Normal respiratory effort. CTAB no rrw Heart: reg no mrg no JVD Abdomen: nondistended. Extremities: Warm, dry, well-perfused. No extremity edema. Neuro: EOMI, conjugate, Alert and oriented x hospital and situation, face symmetric, moves 4 extremities well Psych: anxious affect and normal behavior, made no bizarre statements, thoughts seemed more organized as compared to tuesday Results & Data Results & Data Vital Signs (Past 12 Hours) Vital Signs Temp Pulse Resp BP Pulse Ox O2 Del Method 08/26/23 16:11 37.0 C 62 16 125/83 98 Room Air 08/26/23 07:54 36.5 C 62 16 127/80 99 Room Air PG Care Time/CCT Total # of Minutes Spent Total Time Spent with Patient: Total time spent is greater than 50% in coordination of care (as documented) at patient's floor/unit and/or counseling patient: Coding Level of Care Code 98378 SUB INP/OBS CARE 10/20MIN Diagnoses Thiamine deficiency E51.9 Generalized weakness R53.1 GI bleeding K92.2 Fecal impaction in rectum K56.41 Anemia D62 Anemia type: other cause Other causes of anemia: acute posthemorrhagic Cirrhosis of liver K74.60 Paroxysmal A-fib I48.0 Diabetes mellitus type 2, insulin dependent E11.9; Z79.4 Cryptococcal meningitis B45.1 Essential hypertension I10 Hypertension type: essential hypertension Depression, unspecified depression type F32.9 Depression Type: unspecified Anxiety F41.9 Sacral fracture S32.10XA Pancytopenia D61.818 History of pulmonary embolus (PE) Z86.711 (5) Anemia Anemia type: other cause Other causes of anemia: acute posthemorrhagic Qualified Code(s): D62 - Acute posthemorrhagic anemia (10) Hypertension Hypertension type: essential hypertension Qualified Code(s): I10 - Essential (primary) hypertension (11) Depression Depression Type: unspecified Qualified Code(s): F32.9 - Major depressive disorder, single episode, unspecified
[2023-08-26] MEDS: MIRTAZAPINE TAB 15 MG TAB PO SCH (20:44)
[2023-08-27 07:56] LABS: Hematocrit (blood only) 33.1 % (37.0-47.0); Hemoglobin 10.5 g/dl (12.0-16.0); Mean Corpuscular Hemoglobin 28.2 pg (25.0-34.0); Mean Corpuscular Hgb Conc 31.7 g/dL (32.0-36.0); Mean Platelet Volume 11.3 fL (9.4-12.4); Platelet Count 133 K/uL (130-400); RDW Coefficient of Variation 17.4 % (11.5-14.5); RDW Standard Deviation 56.5 fL (36.4-46.3); Red Blood Count 3.72 M/uL (4.20-5.40); White Blood Count 5.84 K/ul (4.8-10.8)
[2023-08-27 08:03] LABS: Albumin Globulin Ratio 1.3 (0.9-2); Albumin Level 3.4 gm/dl (3.4-5.0); BUN Creatinine Ratio 32.3 (10-20); Bilirubin,Total 0.3 mg/dl (0.2-1.0); Calcium 8.7 mg/dl (8.6-10.3); Creatinine Clr Calc Pharmacy 47.5 ml/min; Est GFR (African American) 72.4 ml/min; Est GFR (Non-African American) 62.5 ml/min; Globulin 2.7 gm/dl (2.5-4.0); Potassium 3.7 mmol/L (3.5-5.1); Total Protein 6.1 gm/dl (6.0-8.3)
[2023-08-27] MEDS: PANTOprazole 40 MG TAB PO SCH ×2 (08:12→19:48)
[2023-08-27] MEDS: VENLAFAXINE HCL XR 75 MG CAPXR PO SCH (08:12)
[2023-08-27] MEDS: SUCRALFATE 1 GM/10 ML UDC PO SCH ×4 (08:12→19:47)
[2023-08-27] MEDS: MAGNESIUM OXIDE 400 MG TAB PO SCH ×2 (08:12→19:48)
[2023-08-27] MEDS: QUEtiapine FUMARATE 25 MG TABLET PO SCH ×2 (08:12→19:49)
[2023-08-27] MEDS: FLUCONAZOLE 100 MG TAB PO SCH (08:12)
[2023-08-27] MEDS: THIAMINE HCL 100 MG TAB PO SCH ×2 (08:12→20:37)
[2023-08-27] MEDS: APIXABAN 5 MG TABLET PO SCH ×2 (08:12→19:48)
[2023-08-27] MEDS: LACTULOSE SYRUP 20 GM/30 ML UDC PO SCH (08:12)
[2023-08-27] MEDS: METOPROLOL SUCC 25MG EXT REL TAB PO SCH ×2 (08:12→19:49)
[2023-08-27] MEDS: CETIRIZINE HCL 10 MG TABLET PO SCH (08:13)
[2023-08-27] MEDS: DICLOFENAC SOD 1% GEL 100 GM TUBE EXT SCH ×2 (08:13→19:49)
[2023-08-27] MEDS: INSULIN ASPART PER UNIT CHARGE SC SCH ×4 (08:13→20:31)
[2023-08-27] MEDS: VENLAFAXINE HCL XR 150 MG CAPXR PO SCH (08:13)
[2023-08-27] MEDS: LANTUS PER UNIT CHARGE SQ SCH ×2 (08:18→20:31)
--- NOTE | 2023-08-27 17:25 | Hospitalist Progress Note ---
Date of Service August 27, 2023 Assessment & Plan (1) Thiamine deficiency: Plan: B1 level undetectable, started on thiamine 200mg BID x 30 days 08/23 given her potential neuropsychiatric symptoms and weakness cannot rule out component of Wernicke encephalopathy so gave IV replacement 500 mg q8h x 9 doses in case of incomplete oral absorption 08/26 resume oral thiamine supplement which should continue indefinitely (2) Generalized weakness: Plan: multifactorial - anemia, deconditioning, recent UTI, cirrhosis, depression, B1 deficiency, etc. improving nicely. treat individual issues. cont PT, OT. (3) GI bleeding: Plan: concern for such earlier in the admission but no evidence of acute GI bleeding materialized. s/p 2 units PRBCs this admission. s/p venofer IV x 3 doses. GI consulted; endoscopic eval deferred. source of anemia uncertain. remains on PPI twice daily + carafate QID. monitor CBC periodically - AM CBC reviewed anemia improved a little to 33 (4) Fecal impaction in rectum: Plan: resolved cont bowel maintenance - lactulose etc (5) Anemia: Plan: s/p 2 units PRBCs this admission. Fe studies c/w Fe def anemia with ferritin of 15. s/p 3 runs of IV venofer update CBC reviewed 08/27. 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 Follows up [facility] ID Dr[facility] Huggins (10) Hypertension: Plan: cont meto succ BID controlled - BP normal 08/27 (11) Depression: Plan: continue home venlafaxine 225mg/day appears to have ongoing depression despite the effexor consulted Dr Masters from psych - he added back remeron 30mg HS = sleep and appetite seem to be improving (12) Anxiety: Plan: cont venlafaxine (13) Sacral fracture: Plan: possible noted s3 lucency on imaging no report of pain (14) Pancytopenia: Plan: likely 2nd to liver disease or nutritional TSH, B12, folate all wnl CBC improved - WBC and Plt now normal (15) History of pulmonary embolus (PE): Plan: with DVT 2021 continue Eliquis 5mg BID Plan complaint of hoarseness / "lost voice" wonder about a viral syndrome though no other symptoms. Is on GERD treatment already. Voice seemed fairly normal by end of my visit -ordered lozenges Discussed with care coordination 08/23 - [employer] process has been completed, working on SNF placement for rehab son updated by phone over weekend by Dr. Landry Admission and Anticipated Discharge Date Admission Date: August 12, 2023 Subjective still feels that her voice is weak, no cough dyspnea sore throat or UTI sx. Physical Exam Physical Exam: PHYSICAL EXAMINATION Last 24h vital signs reviewed, see documentation in flowsheet General: comfortable appearing, no distress, sitting on bed HEENT: Normocephalic, atraumatic, pupils round and equal, sclerae anicteric, no conjunctival injection, moist mucus membranes voice seems normal volume today Lungs: Normal respiratory effort. CTAB no rrw Heart: reg no mrg no JVD Abdomen: nondistended. Extremities: Warm, dry, well-perfused. No extremity edema. Neuro: EOMI, conjugate, Alert and oriented x hospital and situation, face symmetric, moves 4 extremities well Psych: anxious sad affect and more withdrawn behavior today, made no bizarre statements Results & Data Results & Data Vital Signs (Past 12 Hours) Vital Signs Temp Pulse Resp BP Pulse Ox O2 Del Method 08/27/23 15:13 36.5 C 71 16 137/90 100 Room Air 08/27/23 07:49 36.4 C L 73 18 151/83 H 97 Room Air Laboratory Results 08/27/23 08/27/23 08/27/23 Range/Units 16:46 11:56 07:46 WBC (4.8-10.8) K/ul RBC (4.20-5.40) M/uL Hgb (12.0-16.0) g/dl Hct (37.0-47.0) % MCV (80.0-100.0) fL MCH (25.0-34.0) pg MCHC (32.0-36.0) g/dL RDW Std Deviation (36.4-46.3) fL RDW Coeff of Jun (11.5-14.5) % Plt Count (130-400) K/uL MPV (9.4-12.4) fL Sodium (136-145) mmol/L Potassium (3.5-5.1) mmol/L Chloride (98-107) mmol/L Carbon Dioxide (21-32) mmol/L Anion Gap (3-11) BUN (6-23) mg/dl Creatinine (0.6-1.2) mg/dl Est Cr Clr Drug Dosing ml/min Est GFR ( Amer) ml/min Est GFR (Non-Af Amer) ml/min BUN/Creatinine Ratio (10-20) Glucose (70-99(Fasting)) mg/dl POC Glucose 136 H 148 H 130 H (70-99) mg/dl Calcium (8.6-10.3) mg/dl Total Bilirubin (0.2-1.0) mg/dl AST (13-39) U/L ALT (7-52) U/L Alkaline Phosphatase (34-104) U/L Total Protein (6.0-8.3) gm/dl Albumin (3.4-5.0) gm/dl Globulin (2.5-4.0) gm/dl Albumin/Globulin Ratio (0.9-2) 08/27/23 08/26/23 Range/Units 06:43 20:23 WBC 5.84 (4.8-10.8) K/ul RBC 3.72 L (4.20-5.40) M/uL Hgb 10.5 L (12.0-16.0) g/dl Hct 33.1 L (37.0-47.0) % MCV 89.0 (80.0-100.0) fL MCH 28.2 (25.0-34.0) pg MCHC 31.7 L (32.0-36.0) g/dL RDW Std Deviation 56.5 H (36.4-46.3) fL RDW Coeff of Jun 17.4 H (11.5-14.5) % Plt Count 133 (130-400) K/uL MPV 11.3 (9.4-12.4) fL Sodium 143 (136-145) mmol/L Potassium 3.7 (3.5-5.1) mmol/L Chloride 111 H (98-107) mmol/L Carbon Dioxide 26 (21-32) mmol/L Anion Gap 6 (3-11) BUN 31 H (6-23) mg/dl Creatinine 0.96 (0.6-1.2) mg/dl Est Cr Clr Drug Dosing 47.5 ml/min Est GFR ( Amer) 72.4 ml/min Est GFR (Non-Af Amer) 62.5 ml/min BUN/Creatinine Ratio 32.3 H (10-20) Glucose 144 H (70-99(Fasting)) mg/dl POC Glucose 177 H (70-99) mg/dl Calcium 8.7 (8.6-10.3) mg/dl Total Bilirubin 0.3 (0.2-1.0) mg/dl AST 36 (13-39) U/L ALT 30 (7-52) U/L Alkaline Phosphatase 220 H (34-104) U/L Total Protein 6.1 (6.0-8.3) gm/dl Albumin 3.4 (3.4-5.0) gm/dl Globulin 2.7 (2.5-4.0) gm/dl Albumin/Globulin Ratio 1.3 (0.9-2) PG Care Time/CCT Total # of Minutes Spent Total Time Spent with Patient: Total time spent is greater than 50% in coordination of care (as documented) at patient's floor/unit and/or counseling patient: Coding Level of Care Code 30519 SUB INP/OBS CARE 2/35MIN Diagnoses Thiamine deficiency E51.9 Generalized weakness R53.1 GI bleeding K92.2 Fecal impaction in rectum K56.41 Anemia D62 Anemia type: other cause Other causes of anemia: acute posthemorrhagic Cirrhosis of liver K74.60 Paroxysmal A-fib I48.0 Diabetes mellitus type 2, insulin dependent E11.9; Z79.4 Cryptococcal meningitis B45.1 Essential hypertension I10 Hypertension type: essential hypertension Depression, unspecified depression type F32.9 Depression Type: unspecified Anxiety F41.9 Sacral fracture S32.10XA Pancytopenia D61.818 History of pulmonary embolus (PE) Z86.711 (5) Anemia Anemia type: other cause Other causes of anemia: acute posthemorrhagic Qualified Code(s): D62 - Acute posthemorrhagic anemia (10) Hypertension Hypertension type: essential hypertension Qualified Code(s): I10 - Essential (primary) hypertension (11) Depression Depression Type: unspecified Qualified Code(s): F32.9 - Major depressive disorder, single episode, unspecified
[2023-08-27] MEDS: MIRTAZAPINE TAB 15 MG TAB PO SCH (19:48)
[2023-08-27] MEDS ORDERED: SODIUM CHLORIDE 0.65% NA SOLN 45 ML (OCEAN) PRN (19:59)
[2023-08-28] MEDS: INSULIN ASPART PER UNIT CHARGE SC SCH ×4 (08:50→20:26)
[2023-08-28] MEDS: QUEtiapine FUMARATE 25 MG TABLET PO SCH ×2 (08:51→20:41)
[2023-08-28] MEDS: VENLAFAXINE HCL XR 75 MG CAPXR PO SCH (08:51)
[2023-08-28] MEDS: MAGNESIUM OXIDE 400 MG TAB PO SCH ×2 (08:51→20:40)
[2023-08-28] MEDS: METOPROLOL SUCC 25MG EXT REL TAB PO SCH ×2 (08:51→20:41)
[2023-08-28] MEDS: CETIRIZINE HCL 10 MG TABLET PO SCH (08:51)
[2023-08-28] MEDS: APIXABAN 5 MG TABLET PO SCH ×2 (08:52→20:41)
[2023-08-28] MEDS: PANTOprazole 40 MG TAB PO SCH ×2 (08:52→20:40)
[2023-08-28] MEDS: VENLAFAXINE HCL XR 150 MG CAPXR PO SCH (08:52)
[2023-08-28] MEDS: FLUCONAZOLE 100 MG TAB PO SCH (08:52)
[2023-08-28] MEDS: DICLOFENAC SOD 1% GEL 100 GM TUBE EXT SCH ×2 (08:52→20:42)
[2023-08-28] MEDS: SUCRALFATE 1 GM/10 ML UDC PO SCH ×4 (08:52→20:40)
[2023-08-28] MEDS: LACTULOSE SYRUP 20 GM/30 ML UDC PO SCH (08:58)
[2023-08-28] MEDS: LANTUS PER UNIT CHARGE SQ SCH ×2 (08:58→20:40)
[2023-08-28] MEDS: THIAMINE HCL 100 MG TAB PO SCH ×2 (10:37→20:42)
--- NOTE | 2023-08-28 17:32 | Hospitalist Progress Note ---
Date of Service August 28, 2023 Assessment & Plan (1) Thiamine deficiency: Plan: B1 level undetectable, started on thiamine 200mg BID x 30 days 08/23 given her potential neuropsychiatric symptoms and weakness cannot rule out component of Wernicke encephalopathy so gave IV replacement 500 mg q8h x 9 doses in case of incomplete oral absorption 08/26 resume oral thiamine supplement which should continue indefinitely (2) Generalized weakness: Plan: multifactorial - anemia, deconditioning, recent UTI, cirrhosis, depression, B1 deficiency, etc. improving nicely. treat individual issues. cont PT, OT. (3) GI bleeding: Plan: concern for such earlier in the admission but no evidence of acute GI bleeding materialized. s/p 2 units PRBCs this admission. s/p venofer IV x 3 doses. GI consulted; endoscopic eval deferred. source of anemia uncertain. remains on PPI twice daily + carafate QID. monitor CBC periodically - 08/27 CBC reviewed anemia improved a little to 33 (4) Fecal impaction in rectum: Plan: resolved cont bowel maintenance - lactulose etc (5) Anemia: Plan: s/p 2 units PRBCs this admission. Fe studies c/w Fe def anemia with ferritin of 15. s/p 3 runs of IV venofer update CBC reviewed 08/27. 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 Follows up with [facility] ID Dr. Huggins (10) Hypertension: Plan: cont meto succ BID controlled - BP normal 08/28 (11) Depression: Plan: continue home venlafaxine 225mg/day appears to have ongoing depression despite the effexor consulted Dr Masters from psych - he added back remeron 30mg HS = sleep and appetite seem to be improving (12) Anxiety: Plan: cont venlafaxine (13) Sacral fracture: Plan: possible noted s3 lucency on imaging no report of pain (14) Pancytopenia: Plan: likely 2nd to liver disease or nutritional TSH, B12, folate all wnl CBC improved - WBC and Plt now normal (15) History of pulmonary embolus (PE): Plan: with DVT 2021 continue Eliquis 5mg BID Plan complaint of hoarseness / "lost voice" wonder about a viral syndrome though no other symptoms. Is on GERD treatment already. Voice seemed fairly normal by end of my visit -ordered lozenges Discussed with care coordination 08/23 - [employer] process has been completed, working on SNF placement for rehab son updated by phone over weekend by Dr. Landry Admission and Anticipated Discharge Date Admission Date: August 12, 2023 Subjective Sudha is making a lot of paranoid sounding statements today about nursing staff who have been following her from facility to facility and somehow they have resulted in her losing her house. Physically she feels well Physical Exam Physical Exam: PHYSICAL EXAMINATION Last 24h vital signs reviewed, see documentation in flowsheet General: Lying on side in bed seems anxious HEENT: Normocephalic, atraumatic, pupils round and equal, sclerae anicteric, no conjunctival injection, moist mucus membranes voice seems normal volume today Lungs: Normal respiratory effort. Heart: Abdomen: nondistended. Extremities: Warm, dry, well-perfused. No extremity edema. Neuro: EOMI, conjugate, Alert and oriented x hospital and situation, face symmetric, moves 4 extremities well Psych: anxious not overtly agitated, making many paranoid sounding statements though no bizarre delusions Results & Data Results & Data Vital Signs (Past 12 Hours) Vital Signs Temp Pulse Resp BP Pulse Ox O2 Del Method 08/28/23 15:59 36.5 C 70 16 125/80 100 Room Air 08/28/23 07:44 36.6 C 65 16 130/81 98 Room Air 08/28/23 07:30 Room Air PG Care Time/CCT Total # of Minutes Spent Total Time Spent with Patient: Total time spent is greater than 50% in coordination of care (as documented) at patient's floor/unit and/or counseling patient: Coding Level of Care Code 35227 SUB INP/OBS CARE 10/20MIN Diagnoses Thiamine deficiency E51.9 Generalized weakness R53.1 GI bleeding K92.2 Fecal impaction in rectum K56.41 Anemia D62 Anemia type: other cause Other causes of anemia: acute posthemorrhagic Cirrhosis of liver K74.60 Paroxysmal A-fib I48.0 Diabetes mellitus type 2, insulin dependent E11.9; Z79.4 Cryptococcal meningitis B45.1 Essential hypertension I10 Hypertension type: essential hypertension Depression, unspecified depression type F32.9 Depression Type: unspecified Anxiety F41.9 Sacral fracture S32.10XA Pancytopenia D61.818 History of pulmonary embolus (PE) Z86.711 (5) Anemia Anemia type: other cause Other causes of anemia: acute posthemorrhagic Qualified Code(s): D62 - Acute posthemorrhagic anemia (10) Hypertension Hypertension type: essential hypertension Qualified Code(s): I10 - Essential (primary) hypertension (11) Depression Depression Type: unspecified Qualified Code(s): F32.9 - Major depressive disorder, single episode, unspecified
[2023-08-28] MEDS: MIRTAZAPINE TAB 15 MG TAB PO SCH (20:40)
[2023-08-29] MEDS: LANTUS PER UNIT CHARGE SQ SCH ×2 (08:01→21:35)
[2023-08-29] MEDS: MAGNESIUM OXIDE 400 MG TAB PO SCH ×2 (08:02→21:24)
[2023-08-29] MEDS: VENLAFAXINE HCL XR 150 MG CAPXR PO SCH (08:02)
[2023-08-29] MEDS: VENLAFAXINE HCL XR 75 MG CAPXR PO SCH (08:02)
[2023-08-29] MEDS: THIAMINE HCL 100 MG TAB PO SCH ×2 (08:02→21:24)
[2023-08-29] MEDS: LACTULOSE SYRUP 20 GM/30 ML UDC PO SCH (08:03)
[2023-08-29] MEDS: FLUCONAZOLE 100 MG TAB PO SCH (08:03)
[2023-08-29] MEDS: CETIRIZINE HCL 10 MG TABLET PO SCH (08:03)
[2023-08-29] MEDS: METOPROLOL SUCC 25MG EXT REL TAB PO SCH ×2 (08:03→21:19)
[2023-08-29] MEDS: PANTOprazole 40 MG TAB PO SCH ×2 (08:03→21:24)
[2023-08-29] MEDS: QUEtiapine FUMARATE 25 MG TABLET PO SCH ×2 (08:03→21:24)
[2023-08-29] MEDS: SUCRALFATE 1 GM/10 ML UDC PO SCH ×4 (08:03→21:24)
[2023-08-29] MEDS: APIXABAN 5 MG TABLET PO SCH ×2 (08:03→21:24)
[2023-08-29] MEDS: INSULIN ASPART PER UNIT CHARGE SC SCH ×4 (08:04→21:35)
[2023-08-29] MEDS: DICLOFENAC SOD 1% GEL 100 GM TUBE EXT SCH ×2 (08:04→21:18)
--- NOTE | 2023-08-29 19:01 | Hospitalist Progress Note ---
Date of Service August 29, 2023 Assessment & Plan (1) Thiamine deficiency: Plan: B1 level undetectable, started on thiamine 200mg BID x 30 days 08/23 given her potential neuropsychiatric symptoms and weakness cannot rule out component of Wernicke encephalopathy so gave IV replacement 500 mg q8h x 9 doses in case of incomplete oral absorption 08/26 resume oral thiamine supplement which should continue indefinitely (2) Generalized weakness: Plan: multifactorial - anemia, deconditioning, recent UTI, cirrhosis, depression, B1 deficiency, etc. improving nicely. treat individual issues. cont PT, OT. (3) GI bleeding: Plan: concern for such earlier in the admission but no evidence of acute GI bleeding materialized. s/p 2 units PRBCs this admission. s/p venofer IV x 3 doses. GI consulted; endoscopic eval deferred - recommended outpatient. Will make outpatient referral source of anemia uncertain. remains on PPI twice daily + carafate QID. monitor CBC periodically - 08/27 CBC reviewed anemia improved a little to 33 (4) Fecal impaction in rectum: Plan: resolved cont bowel maintenance - lactulose etc (5) Anemia: Plan: s/p 2 units PRBCs this admission. Fe studies c/w Fe def anemia with ferritin of 15. s/p 3 runs of IV venofer update CBC reviewed 08/27. 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 Follows up with [facility] Dr. Huggins (10) Hypertension: Plan: cont meto succ BID controlled - BP normal 08/29 (11) Depression: Plan: continue home venlafaxine 225mg/day consulted Dr Masters from psych - he added back remeron 30mg HS cont quetiapine 25 mg AM and 75 HS (divided to help with daytime efficacy) = sleep and appetite seem to be improved (12) Anxiety: Plan: cont venlafaxine (13) Sacral fracture: Plan: possible noted s3 lucency on imaging no report of pain (14) Pancytopenia: Plan: likely 2nd to liver disease or nutritional TSH, B12, folate all wnl CBC improved - WBC and Plt now normal (15) History of pulmonary embolus (PE): Plan: with DVT 2021 continue Eliquis 5mg BID Plan complaint of hoarseness / "lost voice" wonder about a viral syndrome though no other symptoms. Is on GERD treatment already. Voice seemed fairly normal by end of my visit and on 08/28, 08/29 -ordered lozenges Discussed with care coordination 08/29 - planned for discharge to [facility] tomorrow, family is picking her up at 1300 Today I worked on her discharge planning son updated by phone last weekend by Dr. Landry - no events since then Admission and Anticipated Discharge Date Admission Date: August 12, 2023 Subjective Not making paranoid statements today, doing something with her phone, physically no complaints wants IV out so she can leave and go shopping with family Physical Exam Physical Exam: PHYSICAL EXAMINATION Last 24h vital signs reviewed, see documentation in flowsheet General: in bed working on phone HEENT: Normocephalic, atraumatic, pupils round and equal, sclerae anicteric, no conjunctival injection, moist mucus membranes voice seems normal volume today Lungs: Normal respiratory effort. CTAB Heart: reg no mrg Abdomen: nondistended. Extremities: Warm, dry, well-perfused. No extremity edema. Neuro: EOMI, conjugate, Alert and oriented x hospital and situation, though poor judgment and insight and intermittent inappropriate or confused statements, face symmetric, moves 4 extremities well Psych: mildly anxious affect not agitated, no paranoid sounding statements today Results & Data Results & Data Vital Signs (Past 12 Hours) Vital Signs Temp Pulse Resp BP BP Pulse Ox O2 Del Method 08/29/23 15:01 36.5 C 65 16 134/90 98 Room Air 08/29/23 07:44 36.4 C L 71 16 144/82 H 98 Room Air PG Care Time/CCT Total # of Minutes Spent Total Time Spent with Patient: Total time spent on clincial care activities today: 35-40 minutes Coding Level of Care Code 66656 SUB INP/OBS CARE 2/35MIN Diagnoses Thiamine deficiency E51.9 Generalized weakness R53.1 GI bleeding K92.2 Fecal impaction in rectum K56.41 Anemia D62 Anemia type: other cause Other causes of anemia: acute posthemorrhagic Cirrhosis of liver K74.60 Paroxysmal A-fib I48.0 Diabetes mellitus type 2, insulin dependent E11.9; Z79.4 Cryptococcal meningitis B45.1 Essential hypertension I10 Hypertension type: essential hypertension Depression, unspecified depression type F32.9 Depression Type: unspecified Anxiety F41.9 Sacral fracture S32.10XA Pancytopenia D61.818 History of pulmonary embolus (PE) Z86.711 (5) Anemia Anemia type: other cause Other causes of anemia: acute posthemorrhagic Qualified Code(s): D62 - Acute posthemorrhagic anemia (10) Hypertension Hypertension type: essential hypertension Qualified Code(s): I10 - Essential (primary) hypertension (11) Depression Depression Type: unspecified Qualified Code(s): F32.9 - Major depressive disorder, single episode, unspecified
[2023-08-29] MEDS: MIRTAZAPINE TAB 15 MG TAB PO SCH (21:24)
[2023-08-30] MEDS: VENLAFAXINE HCL XR 75 MG CAPXR PO SCH (08:56)
[2023-08-30] MEDS: FLUCONAZOLE 100 MG TAB PO SCH (08:56)
[2023-08-30] MEDS: METOPROLOL SUCC 25MG EXT REL TAB PO SCH ×2 (08:56→20:41)
[2023-08-30] MEDS: THIAMINE HCL 100 MG TAB PO SCH ×2 (08:56→20:36)
[2023-08-30] MEDS: SUCRALFATE 1 GM/10 ML UDC PO SCH ×4 (08:56→20:39)
[2023-08-30] MEDS: LACTULOSE SYRUP 20 GM/30 ML UDC PO SCH (08:57)
[2023-08-30] MEDS: VENLAFAXINE HCL XR 150 MG CAPXR PO SCH (08:57)
[2023-08-30] MEDS: APIXABAN 5 MG TABLET PO SCH ×2 (08:57→20:37)
[2023-08-30] MEDS: INSULIN ASPART PER UNIT CHARGE SC SCH ×4 (08:57→20:29)
[2023-08-30] MEDS: MAGNESIUM OXIDE 400 MG TAB PO SCH ×2 (08:57→20:36)
[2023-08-30] MEDS: CETIRIZINE HCL 10 MG TABLET PO SCH (08:57)
[2023-08-30] MEDS: DICLOFENAC SOD 1% GEL 100 GM TUBE EXT SCH ×2 (08:57→20:39)
[2023-08-30] MEDS: QUEtiapine FUMARATE 25 MG TABLET PO SCH (08:57)
[2023-08-30] MEDS: PANTOprazole 40 MG TAB PO SCH ×2 (08:57→20:36)
[2023-08-30] MEDS: LANTUS PER UNIT CHARGE SQ SCH ×2 (09:02→20:34)
[2023-08-30 10:37] LABS: Albumin Globulin Ratio 1.3 (0.9-2); Albumin Level 3.5 gm/dl (3.4-5.0); BUN Creatinine Ratio 33.7 (10-20); Bilirubin,Total 0.4 mg/dl (0.2-1.0); Calcium 9.2 mg/dl (8.6-10.3); Creatinine Clr Calc Pharmacy 45.2 ml/min; Est GFR (African American) 68.1 ml/min; Est GFR (Non-African American) 58.8 ml/min; Globulin 2.8 gm/dl (2.5-4.0); Potassium 3.7 mmol/L (3.5-5.1); Total Protein 6.3 gm/dl (6.0-8.3)
[2023-08-30] MEDS: SENNA 8.6 MG TAB PO SCH (12:26)
--- NOTE | 2023-08-30 14:48 | Communication Note ---
Date of Service: August 30, [address] Landry as discharge to [facility] is being postponed as reportedly more paranoid last few days and did not sleep well per nursing overnight. She has been resistant to lactulose and missed several doses. Last ammonia level 08/16/23. Patient was seen by liaison on 08/28 for responding to internal stimuli in room/requesting visit. Patient had some worsening anxiety in anticipation of transition to [facility] during previous stay. Low mood has typically coincided with length of stay. Did restart Remeron as per Dr. Masters but timing of symptom change seems separate. recommend ammonia level for alterations in MSE. Dr. Landry reports nl QTc and supports titration of Seroquel. Will increase hs dose. Liaison to round on patient.
[2023-08-30] MEDS ORDERED: QUEtiapine FUMARATE 25 MG TABLET PO PRN (14:54)
--- NOTE | 2023-08-30 16:07 | Electrocardiogram Report ---
Test Reason : Blood Pressure : / mmHG Vent. Rate : 076 BPM Atrial Rate : 076 BPM P-R Int : 138 ms QRS Dur : 106 ms QT Int : 422 ms P-R-T Axes : 049 -51 022 degrees QTc Int : 474 ms Normal sinus rhythm Left anterior fascicular block Nonspecific ST abnormality Abnormal ECG When compared with ECG of 10-AUG-2023 12:53, Incomplete right bundle branch block is no longer Present Criteria for Septal infarct are no longer Present Confirmed by Joe Seaman ([id number]) on 08/30/2023 4:07:00 PM Referred By: REFERRED SELF Confirmed By:Joe Seaman
[2023-08-30] MEDS: MIRTAZAPINE TAB 15 MG TAB PO SCH (20:36)
[2023-08-30] MEDS: QUEtiapine FUMARATE 100 MG TABLET PO SCH (20:47)
--- NOTE | 2023-08-31 03:14 | Hospitalist Progress Note ---
Date of Service August 30, 2023 Assessment & Plan (1) Hallucinations: Plan: patient has had these during past admissions as well as outside of the hospital. extensive chart review undertaken today. neurology notes reviewed. I have also spoken previously with several of my partners who have cared for Mrs Marcelo on past admissions. although she has tendencies towards psychotic symptoms (visual hallucinations, prominent delusions, etc) along with delirium she was having minimal to no confusion when I cared for her 7-10 days ago. About 3 days ago, per my partner Dr Ospina, she began to exhibit the delusions/hallucinations again. This was despite use of her usual HS seroquel and AM seroquel. Her delusions/etc are now impeding her routine care and treatments as she is declining to take several of her medicines. she was supposed to d/c to [facility] today but I recommended to her family (I met with her sister and 2 other family members outside the room this afternoon) to cancel discharge. I explained to her family that if we d/c her in a delirious state this will likely worsen upon transition to her new home at [facility]. Further, the delusions/hallucinations are impacting her ability to consistently take her insulin & other meds which will increase the chances of further problems (uncontrolled DM, recurrent fecal impaction, development of hepatic encephalopathy if she won't take lactulose, etc). I spoke with Dr Wayne from psychiatry who knows Mrs Marcelo well from prior admissions. She will evaluate her and make adjustments to her anti-psychotic meds. Of note - I repeated her EKG today to ensure stable QTc and her QTc is stable at this time. Plan to repeat ammonia, cbc, bmp, and u/a to ensure no other acute process has occurred leading to her worsening delusions/hallucinations. Consider MRI brain w/ and w/o contrast tomorrow to re-eval the leptomeninges abnormality seen on prior MRI earlier in the fall. (2) Generalized weakness: Plan: during this prolonged stay her weakness had improved nicely with treating the following issues - anemia, deconditioning, recent UTI, cirrhosis, depression, B1 deficiency, severe constipation/impaction, etc. has received PT, OT while here. her overall strength is good and walking is wnl. 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 - but no signs of such clinically at this time and LP in June did not show WBCs and fungal culture was negative follows with [facility] in [place] LFTs today wnl (4) GI bleeding: Plan: concern for such earlier in the admission. s/p 2 units PRBCs this admission. s/p venofer IV x 3 doses. GI consulted; endoscopic eval deferred. source of presumed bleeding/anemia uncertain. remains on PPI twice daily + carafate QID. H/H remain stable. (5) Fecal impaction in rectum: Plan: resolved cont bowel maintenance - lactulose etc - but refusing such add senna consider miralax if she won't take lactulose no BM in 3+ days per staff (6) Anemia: Plan: s/p 2 units PRBCs earlier this admission. Lowest Hb was 6.6 on 08/12/23. Fe studies c/w Fe def anemia with ferritin of 15. s/p 3 runs of IV venofer. B12/folate wnl H/h stable on 08/27/23 (7) Cirrhosis of liver: Plan: LFTs stable CBC stable AFP negative no evidence of hepatic encephalopathy no decompensated cirrhosis has been on lactulose for HE prophylaxis but won't take it lasix has been on hold - remains compensated a review of old CT reports shows no ascites since 05/2022 (8) Paroxysmal A-fib: Plan: cont metoprolol succ 25mg BID cont Eliquis BID (9) Diabetes mellitus type 2, insulin dependent: Plan: Hba1c 6.5% cont lantus 4 units BID cont novolog ac/hs (10) Hypertension: Plan: cont meto succ BID controlled (11) Depression: Plan: continue home venlafaxine 225mg/day continue remeron 30mg HS see [address] Wayne from psych who will see patient re: #1 (12) Anxiety: Plan: cont venlafaxine (13) Sacral fracture: Plan: possible noted s3 lucency on imaging early in the stay no report of pain since early days of the admission (14) Thiamine deficiency: Plan: B1 level undetectable thiamine 200mg BID x 30 days certainly could be contributing to chronic fatigue, altered MS, etc (15) Pancytopenia: Plan: likely 2nd to liver disease TSH, B12, folate all wnl check cbc tomorrow (16) History of pulmonary embolus (PE): Plan: with DVT 2021 Eliquis 5mg BID Plan was to d/c to [facility] at [facility] today but I recommended against such due to #1 sister, other family updated outside her room today I then spoke with pt's sister & brother by phone about 730pm this evening discussed all aspects of care both concerned about her mental status in light of prior meningitis they inquired about transfer to [facility] uncertain if they would accept her in transfer given her stability but could reach out at their request would await AM labs, u/a, MRI brain, etc tomorrow before making final decision about attempting a transfer Admission and Anticipated Discharge Date Admission Date: August 12, 2023 Subjective patient with ongoing delusions and hallucinations per staff has been declining certain medicines patient believes we are attempting to poison her she often talks about "a man" in the room she has declined insulin intermittently has declined her daily lactulose x 3 days no BM in 3 days per staff during my bedside visit patient stated her sister was coming this afternoon to "take her home" although I cared for her a little over a week ago it did not seem that she remembered me from those daily visits denied any pain in any location sleep - per staff not sleeping soundly at night, often awake, etc Review of Systems Review of Systems: cv - no chest pain pulm - no dyspnea or [facility] GI - no pain/nausea/emesis Physical Exam Physical Exam: gen - NAD, walking around the room, pleasant but mildly confused mouth - MMM neck - no JVD heart - RRR, s1 s2, no murmur lungs - CTA b/l abd - soft NT ND BS+ ext - no edema, pulses 2+ b/l psych - oriented to person, place but not time; not responding to internal stimulus during my visit; no visual or auditory hallucinations noted during the visit Results & Data Results & Data Vital Signs (Past 12 Hours) Vital Signs Temp Pulse Resp BP Pulse Ox O2 Del Method 08/30/23 14:12 36.5 C 74 20 118/77 96 Room Air 08/30/23 07:25 36.6 C 81 18 112/65 99 Room Air Laboratory Results Laboratory Results - last 24 hr 08/30/23 08/30/23 08/30/23 07:58 09:43 11:15 Sodium 144 Potassium 3.7 Chloride 110 H Carbon Dioxide 25 Anion Gap 9 BUN 34 H Creatinine 1.01 Est Cr Clr Drug Dosing 45.2 Est GFR ( Amer) 68.1 Est GFR (Non-Af Amer) 58.8 BUN/Creatinine Ratio 33.7 H Glucose 228 H POC Glucose 92 263 H Calcium 9.2 Total Bilirubin 0.4 AST 28 ALT 23 Alkaline Phosphatase 223 H Total Protein 6.3 Albumin 3.5 Globulin 2.8 Albumin/Globulin Ratio 1.3 08/30/23 08/30/23 08/30/23 16:16 17:53 20:24 Sodium Potassium Chloride Carbon Dioxide Anion Gap BUN Creatinine Est Cr Clr Drug Dosing Est GFR ( Amer) Est GFR (Non-Af Amer) BUN/Creatinine Ratio Glucose POC Glucose 87 104 H 134 H Calcium Total Bilirubin AST ALT Alkaline Phosphatase Total Protein Albumin Globulin Albumin/Globulin Ratio PG Care Time/CCT Total # of Minutes Spent Total Time Spent with Patient: Total time spent is greater than 50% in coordination of care (as documented) at patient's floor/unit and/or counseling patient: Coding Level of Care Code 47100 SUB INP/OBS CARE 3/50MIN Diagnoses Hallucinations R44.3 Generalized weakness R53.1 Cryptococcal meningitis B45.1 GI bleeding K92.2 Fecal impaction in rectum K56.41 Anemia D62 Anemia type: other cause Other causes of anemia: acute posthemorrhagic Cirrhosis of liver K74.60 Paroxysmal A-fib I48.0 Diabetes mellitus type 2, insulin dependent E11.9; Z79.4 Essential hypertension I10 Hypertension type: essential hypertension Depression, unspecified depression type F32.9 Depression Type: unspecified Anxiety F41.9 Sacral fracture S32.10XA Thiamine deficiency E51.9 Pancytopenia D61.818 History of pulmonary embolus (PE) Z86.711 (6) Anemia Anemia type: other cause Other causes of anemia: acute posthemorrhagic Qualified Code(s): D62 - Acute posthemorrhagic anemia (10) Hypertension Hypertension type: essential hypertension Qualified Code(s): I10 - Essential (primary) hypertension (11) Depression Depression Type: unspecified Qualified Code(s): F32.9 - Major depressive disorder, single episode, unspecified
[2023-08-31 08:23] LABS: Appearance Urine Turbid (Clear); Bacteria Urine Automated Negative (Negative); Bilirubin Urine Negative (Negative); Blood Urine 2+ (Negative); Color Urine Yellow; Glucose Urine UA Trace (Negative); Ketones Urine Negative (Negative); Leukocyte Esterase Urine 3+ (Negative); Nitrite Urine Positive (Negative); Specific Gravity Urine 1.019 (1.000-1.030); Urobilinogen Urine Negative (Negative); WBC Urine Automated >30 /hpf (0-5); pH Urine 7.5 (4.5-7.5)
[2023-08-31 08:27] LABS: Protein Urine 1+ (Negative)
[2023-08-31] MEDS: METOPROLOL SUCC 25MG EXT REL TAB PO SCH ×2 (08:31→21:17)
[2023-08-31] MEDS: QUEtiapine FUMARATE 25 MG TABLET PO SCH (08:31)
[2023-08-31] MEDS: THIAMINE HCL 100 MG TAB PO SCH ×2 (08:32→21:16)
[2023-08-31] MEDS: SUCRALFATE 1 GM/10 ML UDC PO SCH ×4 (08:32→21:15)
[2023-08-31] MEDS: MAGNESIUM OXIDE 400 MG TAB PO SCH ×2 (08:32→21:16)
[2023-08-31] MEDS: VENLAFAXINE HCL XR 75 MG CAPXR PO SCH (08:32)
[2023-08-31] MEDS: LACTULOSE SYRUP 20 GM/30 ML UDC PO SCH ×2 (08:32→10:05)
[2023-08-31] MEDS: VENLAFAXINE HCL XR 150 MG CAPXR PO SCH (08:32)
[2023-08-31] MEDS: FLUCONAZOLE 100 MG TAB PO SCH (08:32)
[2023-08-31] MEDS: PANTOprazole 40 MG TAB PO SCH ×2 (08:32→21:16)
[2023-08-31] MEDS: APIXABAN 5 MG TABLET PO SCH ×2 (08:32→21:15)
[2023-08-31] MEDS: CETIRIZINE HCL 10 MG TABLET PO SCH (08:32)
[2023-08-31] MEDS: SENNA 8.6 MG TAB PO SCH (08:32)
[2023-08-31] MEDS: DICLOFENAC SOD 1% GEL 100 GM TUBE EXT SCH ×2 (08:32→21:22)
[2023-08-31] MEDS: INSULIN ASPART PER UNIT CHARGE SC SCH ×4 (08:37→21:17)
[2023-08-31] MEDS: LANTUS PER UNIT CHARGE SQ SCH ×2 (08:41→21:29)
[2023-08-31 09:22] LABS: Hematocrit (blood only) 33.7 % (37.0-47.0); Hemoglobin 10.8 g/dl (12.0-16.0); Mean Corpuscular Hemoglobin 28.4 pg (25.0-34.0); Mean Corpuscular Volume 88.7 fL (80.0-100.0); Mean Platelet Volume 11.7 fL (9.4-12.4); Platelet Count 136 K/uL (130-400); RDW Coefficient of Variation 17.3 % (11.5-14.5); RDW Standard Deviation 55.9 fL (36.4-46.3); White Blood Count 4.23 K/ul (4.8-10.8)
[2023-08-31] MEDS: cefTRIAXone SODIUM 2,000 MG in DEXTROSE 5 % MINI-B 50 ML IV SCH (11:09)
--- NOTE | 2023-08-31 16:42 | Psychiatric Progress Note ---
Date of Service August 31, 2023 Impression / Recommendations Impression 63 yo woman with a history of hallucinations, prior cryptococcal meningitis, and depression who has traditionally responded well to hospital routines and consistent care approaches. Over recent months has developed significantly more cognitive difficulties related to independent living skills associated with her neurologic condition or other cognitive process. She has responded well to scheduled quetiapine and her mood had been stable without any medication side effects. 08/31: improved sleep, MSE baseline for patient Overall, I spent a total of 42 minutes with this case, including review of chart, direct evaluation of the patient, coordination with nursing,coordination of care with hospitalist service, and documentation. 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 No additional recs at this time. Patient's delusions when present are readily redirectible. Given organic nature, less likely to fully respond to medications and main issues is support around executive functioning. Interval History Identifying Information 62 yo female brought by family from [facility], with history of fungal meningitis with subsequent cognitive deficits, hallucinations and difficulty functioning independently at home, admitted following fall and because of deconditioning. Chief Complaint discharge to [facility] delayed Subjective Subjective Patient was seen & assessed and interval progress reviewed with Dr. Landry and mayra chappell. Patient was plesant and visiting with family pending additional imaging. Has interimittent periods of confusion and increased suspiciousness, selectively reports seeing a man in her room that is pictured on her phone. Patient tends to minimize in my presence. Repeat ammonia reviewed. Compliant with seroquel and appears to have slept through the night. Physical Exam Psychiatric Orientation: alert and cooperative Apperance: appropriately dressed and appropriately groomed Eye Contact: + fair eye contact Motor Behavior: no abnormal motor movements Speech: normal rate/rhythm/volume of speech Affect: euthymic affect Mood: no depressed mood and no anxious mood Thought Process: goal directed thought process Thought Content: reality based without delusions; not paranoid Suicidal Thoughts: denies suicidal thoughts Homicidal Thoughts: denies homicidal thoughts Hallucinations: no auditory hallucinations and no visual hallucinations Cognition: attention grossly intact and language grossly intact Vital Signs (Past 24 Hours) Last Vital Signs Temp 36.6 C 08/31/23 14:46 Pulse 76 08/31/23 14:46 Resp 16 08/31/23 14:46 BP 137/86 08/31/23 14:46 Pulse Ox 99 08/31/23 14:46 O2 Del Method Room Air 08/31/23 14:46 Results & Data ([facility]) Laboratory Results Laboratory Results - last 24 hr 08/30/23 08/30/23 08/31/23 17:53 20:24 07:29 WBC 4.23 L RBC 3.80 L Hgb 10.8 L Hct 33.7 L MCV 88.7 MCH 28.4 MCHC 32.0 RDW Std Deviation 55.9 H RDW Coeff of Jun 17.3 H Plt Count 136 MPV 11.7 POC Glucose 104 H 134 H Magnesium 1.8 Ammonia 52.0 Urine Color Urine Appearance Urine pH Ur Specific [place] Urine Protein Urine Glucose (UA) Urine Ketones Urine Blood Urine Nitrite Urine Bilirubin Urine Urobilinogen Ur Leukocyte Esterase Urine WBC (Auto) Urine RBC (Auto) U Hyaline Cast (Auto) U Epithel Cells (Auto) Urine Bacteria (Auto) Urine Yeast 08/31/23 08/31/23 08/31/23 07:34 11:15 Unknown WBC RBC Hgb Hct MCV MCH MCHC RDW Std Deviation RDW Coeff of Jun Plt Count MPV POC Glucose 111 H 158 H Magnesium Ammonia Urine Color Yellow Urine Appearance Turbid A Urine pH 7.5 Ur Specific [place] 1.019 Urine Protein 1+ H Urine Glucose (UA) Trace H Urine Ketones Negative Urine Blood 2+ H Urine Nitrite Positive A Urine Bilirubin Negative Urine Urobilinogen Negative Ur Leukocyte Esterase 3+ H Urine WBC (Auto) >30 H Urine RBC (Auto) 5-10 H U Hyaline Cast (Auto) 1-5 U Epithel Cells (Auto) 5-10 H Urine Bacteria (Auto) Negative Urine Yeast Present A Current Inpatient Medications Current Inpatient Medications: Current Inpatient Medications Acetaminophen (Acetaminophen 500 Mg Tab) 1,000 mg PO Q12H PRN PRN Reason: pain, fever, or headache Stop: 09/10/23 10:34 Last Admin: 08/23/23 15:28 Dose: 1,000 mg Apixaban (Apixaban 5 Mg Tablet) 5 mg PO BID [facility]ALEY Stop: 09/19/23 20:59 Last Admin: 08/31/23 08:32 Dose: 5 mg Cetirizine HCl (Cetirizine Hcl 10 Mg Tablet) 10 mg PO DAILY [facility]ALEY Stop: 09/10/23 08:59 Last Admin: 08/31/23 08:32 Dose: 10 mg Dextrose (Dextrose 50% 50 Ml Syringe) 25 - 50 ml IV UD PRN; Protocol PRN Reason: Hypoglycemia Protocol Stop: 09/09/23 20:47 Diclofenac Sodium (Diclofenac Sod 1% Gel 100 Gm Tube) 2 gm EXT BID [facility]; Protocol Stop: 09/11/23 20:59 Last Admin: 08/31/23 08:32 Dose: 2 gm Fluconazole (Fluconazole 100 Mg Tab) 400 mg PO QAM [facility]Y Stop: 09/18/23 08:59 Last Admin: 08/31/23 08:32 Dose: 400 mg Glucagon (Glucagon For Inj 1 Mg Vial) 1 mg SQ UD PRN; Protocol PRN Reason: Hypoglycemia Protocol Stop: 09/09/23 20:47 Glucose (Glucose 10 Tab/Tube) 4 - 8 tab PO UD PRN; Protocol PRN Reason: Hypoglycemia Treatment Stop: 09/09/23 20:47 Glucose (Glucose 40% Gel 15 Gm Tube) 15 - 30 gm PO UD PRN; Protocol PRN Reason: Hypoglycemia Protocol Stop: 09/09/23 20:47 Ceftriaxone Sodium 2,000 mg/ (Dextrose) 50 mls @ 100 mls/hr IV Q24H [facility]; Protocol Stop: 09/05/23 10:29 Last Infusion: 08/31/23 12:37 Dose: Infused Insulin Aspart (Insulin Aspart Per Unit Charge) 0 units SC ACHS [facility] Stop: 09/09/23 20:59 Last Admin: 08/31/23 12:58 Dose: 4 units Insulin Glargine (Lantus Per Unit Charge) 6 units SQ BID [facility] Stop: 09/23/23 20:59 Last Admin: 08/31/23 08:41 Dose: 6 units Lactulose (Lactulose Syrup 20 Gm/30 Ml Udc) 20 gm PO DAILY [facility] Stop: 09/14/23 12:29 Last Admin: 08/31/23 10:05 Dose: Not Given Magnesium Oxide (Magnesium Oxide 400 Mg Tab) 400 mg PO BID [facility] Stop: 09/10/23 08:59 Last Admin: 08/31/23 08:32 Dose: 400 mg Menthol (Cough Drop (Sugar Free) Miranda 24 Miranda/1 Box) 1 miranda BUCCAL Q1H PRN PRN Reason: Sore Throat Stop: 09/25/23 17:18 Metoprolol Succinate (Metoprolol Succ 25mg Ext Rel Tab) 25 mg PO BID [facility] Stop: 09/09/23 20:59 Last Admin: 08/31/23 08:31 Dose: 25 mg Mirtazapine (Mirtazapine Tab 15 Mg Tab) 30 mg PO HS [facility] Stop: 09/18/23 20:59 Last Admin: 08/30/23 20:36 Dose: 30 mg Miscellaneous (Carbohydrates For Hypoglycemia ) 15 - 30 gm PO UD PRN PRN Reason: Hypoglycemia Protocol Stop: 09/09/23 20:47 Ondansetron HCl (Ondansetron Inj 2 Mg/Ml 2 Ml Vial) 4 mg IV Q6H PRN PRN Reason: Nausea Stop: 09/09/23 20:47 Last Admin: 08/16/23 08:51 Dose: 4 mg Pantoprazole Sodium (Pantoprazole 40 Mg Tab) 40 mg PO BID [facility] Stop: 09/09/23 20:59 Last Admin: 08/31/23 08:32 Dose: 40 mg Promethazine HCl (Promethazine Hcl 25 Mg Tab) 12.5 mg PO TID PRN PRN Reason: nausea and vomiting Stop: 09/09/23 20:47 Quetiapine Fumarate (Quetiapine Fumarate 25 Mg Tablet) 25 mg PO QAM [facility] Stop: 09/10/23 08:59 Last Admin: 08/31/23 08:31 Dose: 25 mg Quetiapine Fumarate (Quetiapine Fumarate 100 Mg Tablet) 100 mg PO HS [facility] Stop: 09/29/23 20:59 Last Admin: 08/30/23 20:47 Dose: 100 mg Quetiapine Fumarate (Quetiapine Fumarate 25 Mg Tablet) 50 mg PO HS PRN PRN Reason: Insomnia Stop: 09/29/23 20:59 Sennosides (Senna 8.6 Mg Tab) 17.2 mg PO QAM [facility] Stop: 09/29/23 11:29 Last Admin: 08/31/23 08:32 Dose: 17.2 mg Sodium Chloride (Sodium Chloride 0.65% Na Soln 45 Ml ([place])) 2 sprays NA Q3H PRN PRN Reason: nasal irritation Stop: 09/26/23 19:58 Sucralfate (Sucralfate 1 Gm/10 Ml Udc) 1 gm PO QID [facility] Stop: 09/13/23 16:59 Last Admin: 08/31/23 12:58 Dose: 1 gm Thiamine HCl (Thiamine Hcl 100 Mg Tab) 100 mg PO BID [facility] Stop: 09/25/23 08:59 Last Admin: 08/31/23 08:32 Dose: 100 mg Venlafaxine HCl (Venlafaxine Hcl Xr 150 Mg Capxr) 150 mg PO DAILY [facility] Stop: 09/19/23 08:59 Last Admin: 08/31/23 08:32 Dose: 150 mg Venlafaxine HCl (Venlafaxine Hcl Xr 75 Mg Capxr) 75 mg PO DAILY [facility] Stop: 09/19/23 08:59 Last Admin: 08/31/23 08:32 Dose: 75 mg
[2023-08-31] MEDS ORDERED: GADOBUTROL 65ML VIAL IV ONE (16:48)
--- NOTE | 2023-08-31 17:05 | Magnetic Resonance Report ---
Brain MRI WITH AND WITHOUT CONTRAST HISTORY: Follow-up abnormal MRI. h/o cryptococcal meningitis, prior abnormal MRI TECHNIQUE: Multiplanar multisequence MRI of the brain was performed both before and after the intrave nous administration of contrast. COMPARISON STUDY: Brain MRI 07/24/2023. FINDINGS: There is no mass, hematoma, midline shift, or acute infarct. The paranasal sinuses are geno r. The mastoid air cells are clear. The ventricles and sulci demonstrate mild age-related involutiona l changes. Scattered foci of T2 hyperintensity seen within the periventricular and subcortical white matter are nonspecific but suggestive of mild microvascular ischemic changes. These remain unchanged. Prior bilateral lens replacement again noted. Scattered small nodular foci of enhancement again note d within the bilateral cerebellar hemispheres. This is similar to the prior study. No abnormal enhanc ement within the supratentorial brain. The major vascular flow voids at the skull base are well-maint ained. IMPRESSION: Overall, no significant change compared to the prior study. Persistent small foci of enhancement agai n noted within the cerebellar hemispheres. This could be related to underlying infectious/inflammator y process. A neoplastic process is considered less likely but not entirely excluded. ACT 112: Negative or not required by law. Electronically signed by: Coleman Teixeira M.D. 08/31/2023 5:03 PM
[2023-08-31] MEDS: QUEtiapine FUMARATE 100 MG TABLET PO SCH (21:16)
[2023-08-31] MEDS: MIRTAZAPINE TAB 15 MG TAB PO SCH (21:16)
--- NOTE | 2023-08-31 21:16 | Hospitalist Progress Note ---
Date of Service August 31, 2023 Assessment & Plan (1) Hallucinations: Plan: patient has had these during past admissions as well as outside of the hospital. improved overnight s/p titration of seroquel to 100mg HS. she is less agitated/restless today and more calm. no obvious hallucinations today. appreciate assistance from Dr Wayne from psychiatry who knows Mrs Marcelo well from prior admissions. MRI brain today returned UNCHANGED from her prior MRI in June. u/a suggestive of UTI - could be contributing to current symptoms - thus start rocephin IV daily. follow culture. cont to observe overnight. (2) Generalized weakness: Plan: during this prolonged stay her weakness had improved nicely with treating the following issues - anemia, deconditioning, recent UTI, cirrhosis, depression, B1 deficiency, severe constipation/impaction, etc. has received PT, OT while here. her overall strength is good and walking is wnl. 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 - but no signs of such clinically at this time and LP in June did not show WBCs and fungal culture was negative follows with Srinivasa STELLA in [place] LFTs have been stable/wnl repeat MRI Brain today UNCHANGED from prior MRI in 06/2023 (4) GI bleeding: Plan: concern for such earlier in the admission. s/p 2 units PRBCs this admission. s/p venofer IV x 3 doses. GI consulted; endoscopic eval deferred. source of presumed bleeding/anemia uncertain. remains on PPI twice daily + carafate QID. H/H remain stable. (5) Fecal impaction in rectum: Plan: resolved cont bowel maintenance - lactulose etc - but refusing such added senna consider miralax if she won't take lactulose BM yesterday?? (6) Anemia: Plan: s/p 2 units PRBCs earlier this admission. Lowest Hb was 6.6 on 08/12/23. Fe studies c/w Fe def anemia with ferritin of 15. s/p 3 runs of IV venofer. B12/folate wnl H/h stable today (7) Cirrhosis of liver: Plan: LFTs stable CBC stable AFP negative no evidence of hepatic encephalopathy no decompensated cirrhosis has been on lactulose for HE prophylaxis but won't take it lasix has been on hold - remains compensated a review of old CT reports shows no ascites since 05/2022 would use lasix prn (8) Paroxysmal A-fib: Plan: cont metoprolol succ 25mg BID cont Eliquis BID (9) Diabetes mellitus type 2, insulin dependent: Plan: Hba1c 6.5% cont lantus 6 units BID cont novolog ac/hs (10) Hypertension: Plan: cont meto succ BID controlled (11) Depression: Plan: continue home venlafaxine 225mg/day continue remeron 30mg HS cont seroquel HS 100mg; 25mg qam see #1 above (12) Anxiety: Plan: cont venlafaxine (13) Sacral fracture: Plan: possible noted s3 lucency on imaging early in the stay no report of pain since early days of the admission (14) Thiamine deficiency: Plan: B1 level undetectable thiamine 200mg BID x 30 days certainly could have been contributing to chronic fatigue, altered MS, etc (15) Pancytopenia: Plan: likely 2nd to liver disease TSH, B12, folate all wnl CBC stable today (16) History of pulmonary embolus (PE): Plan: with DVT 2021 Eliquis 5mg BID Plan I think we can defer on transfer given the suspected UTI which may have been contributing to the hallucinations as well as the unchanged MRI brain today will update family tomorrow observe overnight dispo - [facility] Admission and Anticipated Discharge Date Admission Date: August 12, 2023 Subjective no issues overnight she did sleep a bit better last pm eating fair she was happy to hear that her MRI brain was unchanged we discussed the suspected UTI - she does mention mild dysuria no other complaints Review of Systems Review of Systems: cv - no chest pain pulm - no dyspnea GI - no abd pain or N/V Physical Exam Physical Exam: gen - NAD, looks better today, more calm mouth - MMM neck - no JVD heart - RRR, s1 s2, no murmur lungs - CTA b/l abd - soft NT ND BS+ ext - no edema, pulses 2+ b/l psych - no psychosis, recall is better today, awake/alert Results & Data Results & Data Vital Signs (Past 12 Hours) Vital Signs Temp Pulse Resp BP Pulse Ox O2 Del Method 08/31/23 21:11 36.5 C 79 18 131/80 98 Room Air 08/31/23 14:46 36.6 C 76 16 137/86 99 Room Air Laboratory Results Laboratory Results - last 24 hr 08/31/23 08/31/23 08/31/23 07:29 07:34 11:15 WBC 4.23 L RBC 3.80 L Hgb 10.8 L Hct 33.7 L MCV 88.7 MCH 28.4 MCHC 32.0 RDW Std Deviation 55.9 H RDW Coeff of Jun 17.3 H Plt Count 136 MPV 11.7 POC Glucose 111 H 158 H Magnesium 1.8 Ammonia 52.0 Urine Color Urine Appearance Urine pH Ur Specific [place] Urine Protein Urine Glucose (UA) Urine Ketones Urine Blood Urine Nitrite Urine Bilirubin Urine Urobilinogen Ur Leukocyte Esterase Urine WBC (Auto) Urine RBC (Auto) U Hyaline Cast (Auto) U Epithel Cells (Auto) Urine Bacteria (Auto) Urine Yeast 08/31/23 08/31/23 08/31/23 17:05 21:03 21:05 WBC RBC Hgb Hct MCV MCH MCHC RDW Std Deviation RDW Coeff of Jun Plt Count MPV POC Glucose 231 H 65 L* 61 L* Magnesium Ammonia Urine Color Urine Appearance Urine pH Ur Specific [place] Urine Protein Urine Glucose (UA) Urine Ketones Urine Blood Urine Nitrite Urine Bilirubin Urine Urobilinogen Ur Leukocyte Esterase Urine WBC (Auto) Urine RBC (Auto) U Hyaline Cast (Auto) U Epithel Cells (Auto) Urine Bacteria (Auto) Urine Yeast 08/31/23 Unknown WBC RBC Hgb Hct MCV MCH MCHC RDW Std Deviation RDW Coeff of Jun Plt Count MPV POC Glucose Magnesium Ammonia Urine Color Yellow Urine Appearance Turbid A Urine pH 7.5 Ur Specific [place] 1.019 Urine Protein 1+ H Urine Glucose (UA) Trace H Urine Ketones Negative Urine Blood 2+ H Urine Nitrite Positive A Urine Bilirubin Negative Urine Urobilinogen Negative Ur Leukocyte Esterase 3+ H Urine WBC (Auto) >30 H Urine RBC (Auto) 5-10 H U Hyaline Cast (Auto) 1-5 U Epithel Cells (Auto) 5-10 H Urine Bacteria (Auto) Negative Urine Yeast Present A Diagnostic Findings urine cx pending PG Care Time/CCT Total # of Minutes Spent Total Time Spent with Patient: Total time spent is greater than 50% in coordination of care (as documented) at patient's floor/unit and/or counseling patient: Coding Level of Care Code 43383 SUB INP/OBS CARE 2/35MIN Diagnoses Hallucinations R44.3 Generalized weakness R53.1 Cryptococcal meningitis B45.1 GI bleeding K92.2 Fecal impaction in rectum K56.41 Anemia D62 Anemia type: other cause Other causes of anemia: acute posthemorrhagic Cirrhosis of liver K74.60 Paroxysmal A-fib I48.0 Diabetes mellitus type 2, insulin dependent E11.9; Z79.4 Essential hypertension I10 Hypertension type: essential hypertension Depression, unspecified depression type F32.9 Depression Type: unspecified Anxiety F41.9 Sacral fracture S32.10XA Thiamine deficiency E51.9 Pancytopenia D61.818 History of pulmonary embolus (PE) Z86.711 (6) Anemia Anemia type: other cause Other causes of anemia: acute posthemorrhagic Qualified Code(s): D62 - Acute posthemorrhagic anemia (10) Hypertension Hypertension type: essential hypertension Qualified Code(s): I10 - Essential (primary) hypertension (11) Depression Depression Type: unspecified Qualified Code(s): F32.9 - Major depressive disorder, single episode, unspecified
[2023-09-01 07:23] LABS: Est GFR (African American) 96.1 ml/min; Est GFR (Non-African American) 82.9 ml/min
[2023-09-01] MEDS: FLUCONAZOLE 100 MG TAB PO SCH (08:38)
[2023-09-01] MEDS: APIXABAN 5 MG TABLET PO SCH ×2 (08:38→21:11)
[2023-09-01] MEDS: METOPROLOL SUCC 25MG EXT REL TAB PO SCH ×2 (08:38→21:13)
[2023-09-01] MEDS: MAGNESIUM OXIDE 400 MG TAB PO SCH ×2 (08:39→21:13)
[2023-09-01] MEDS: CETIRIZINE HCL 10 MG TABLET PO SCH (08:39)
[2023-09-01] MEDS: QUEtiapine FUMARATE 25 MG TABLET PO SCH (08:39)
[2023-09-01] MEDS: LACTULOSE SYRUP 20 GM/30 ML UDC PO SCH (08:39)
[2023-09-01] MEDS: SUCRALFATE 1 GM/10 ML UDC PO SCH ×4 (08:39→21:13)
[2023-09-01] MEDS: PANTOprazole 40 MG TAB PO SCH ×2 (08:39→21:14)
[2023-09-01] MEDS: VENLAFAXINE HCL XR 150 MG CAPXR PO SCH (08:39)
[2023-09-01] MEDS: SENNA 8.6 MG TAB PO SCH (08:39)
[2023-09-01] MEDS: VENLAFAXINE HCL XR 75 MG CAPXR PO SCH (08:39)
[2023-09-01] MEDS: THIAMINE HCL 100 MG TAB PO SCH ×2 (08:39→21:14)
[2023-09-01] MEDS: DICLOFENAC SOD 1% GEL 100 GM TUBE EXT SCH ×2 (08:44→21:12)
[2023-09-01] MEDS: INSULIN ASPART PER UNIT CHARGE SC SCH ×4 (10:21→21:11)
[2023-09-01] MEDS: LANTUS PER UNIT CHARGE SQ SCH ×3 (10:21→21:19)
[2023-09-01] MEDS: cefTRIAXone SODIUM 2,000 MG in DEXTROSE 5 % MINI-B 50 ML IV SCH (10:24)
[2023-09-01] MEDS ORDERED: LANTUS PER UNIT CHARGE SQ SCH (21:00)
[2023-09-01] MEDS: MIRTAZAPINE TAB 15 MG TAB PO SCH (21:13)
[2023-09-01] MEDS: QUEtiapine FUMARATE 100 MG TABLET PO SCH (21:14)
--- NOTE | 2023-09-01 21:19 | Hospitalist Progress Note ---
Date of Service September 01, 2023 Assessment & Plan (1) Hallucinations: Plan: patient has had these during past admissions as well as outside of the hospital. improved s/p titration of seroquel to 100mg HS. UTI may have been contributing as well. no obvious hallucinations today. appreciate assistance from Dr Wayne from psychiatry who knows Mrs Marcelo well from prior admissions. MRI brain returned UNCHANGED from her prior MRI in June. [facility] with the news of the unchanged MRI brain. (2) Generalized weakness: Plan: during this prolonged stay her weakness had improved nicely with treating the following issues - anemia, deconditioning, recent UTI, cirrhosis, depression, B1 deficiency, severe constipation/impaction, etc. has received PT, OT while here. her overall strength is good and walking is wnl. 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 - but no signs of such clinically at this time and LP in June did not show WBCs and fungal culture was negative follows with Srinivasa DOUGLAS in [place] LFTs have been stable/wnl repeat MRI Brain today UNCHANGED from prior MRI in 06/2023 has f/u with spig[facility] DOUGLAS - Dr Huggins at [place] office - 10/11/23 Henry message sent to him today (4) GI bleeding: Plan: concern for such earlier in the admission. s/p 2 units PRBCs this admission. s/p venofer IV x 3 doses. GI consulted; endoscopic eval deferred. source of presumed bleeding/anemia uncertain. remains on PPI twice daily + carafate QID. H/H remain stable. send [place] [facility] [place]. (5) Fecal impaction in rectum: Plan: resolved cont bowel maintenance - lactulose + senna (6) Anemia: Plan: s/p 2 units PRBCs earlier this admission. Lowest Hb was 6.6 on 08/12/23. Fe studies c/w Fe def anemia with ferritin of 15. s/p 3 runs of IV venofer. B12/folate wnl H/H have been stable last several days (7) Cirrhosis of liver: Plan: LFTs stable CBC stable AFP negative no evidence of hepatic encephalopathy no decompensated cirrhosis has been on lactulose for HE prophylaxis but won't take it lasix has been on hold - remains compensated a review of old CT reports shows no ascites since 05/2022 would use lasix prn (8) Paroxysmal A-fib: Plan: cont metoprolol succ 25mg BID cont Eliquis BID (9) Diabetes mellitus type 2, insulin dependent: Plan: Hba1c 6.5% cont lantus but at 5 units BID cont novolog ac/hs (10) Hypertension: Plan: cont meto succ BID controlled (11) Depression: Plan: continue home venlafaxine 225mg/day continue remeron 30mg HS cont seroquel HS 100mg; 25mg qam see #1 above (12) Anxiety: Plan: cont venlafaxine (13) Sacral fracture: Plan: possible noted s3 lucency on imaging early in the stay no report of pain since early days of the admission (14) Thiamine deficiency: Plan: B1 level undetectable thiamine 200mg BID x 30 days certainly could have been contributing to chronic fatigue, altered MS, etc (15) Pancytopenia: Plan: likely 2nd to liver disease TSH, B12, folate all wnl CBC stable today (16) History of pulmonary embolus (PE): Plan: with DVT 2021 Eliquis 5mg BID Plan sister updated at bedside today can d/c tomorrow to [facility] Admission and Anticipated Discharge Date Admission Date: August 12, 2023 Subjective no new issues feels good eating well BSGs wnl / controlled no issues per staff sister updated at bedside Review of Systems Review of Systems: cv - no orthopnea or chest pain pulm - no dyspnea or cough GI - no abd pain/nausea/emesis; moving bowels Physical Exam Physical Exam: gen - NAD, looks well mouth - MMM neck - no JVD heart - RRR, s1 s2, no murmur lungs - CTA b/l abd - soft NT ND BS+ ext - no edema, pulses 2+ b/l psych - no psychosis, awake/alert Results & Data Results & Data Vital Signs (Past 12 Hours) Vital Signs Temp Pulse Resp BP BP Pulse Ox O2 Del Method 09/01/23 21:01 36.8 C 70 16 126/79 98 Room Air 09/01/23 16:20 36.7 C 64 16 130/78 98 Room Air Laboratory Results Laboratory Results - last 24 hr 08/31/23 09/01/23 09/01/23 21:25 06:18 07:53 Creatinine 0.76 Est Cr Clr Drug Dosing 60.0 Est GFR ( Amer) 96.1 Est GFR (Non-Af Amer) 82.9 POC Glucose 75 165 H 09/01/23 09/01/23 09/01/23 11:36 16:44 20:59 Creatinine Est Cr Clr Drug Dosing Est GFR ( Amer) Est GFR (Non-Af Amer) POC Glucose 257 H 159 H 109 H PG Care Time/CCT Total # of Minutes Spent Total Time Spent with Patient: Total time spent is greater than 50% in coordination of care (as documented) at patient's floor/unit and/or counseling patient: Coding Level of Care Code 87172 SUB INP/OBS CARE 10/20MIN Diagnoses Hallucinations R44.3 Generalized weakness R53.1 Cryptococcal meningitis B45.1 GI bleeding K92.2 Fecal impaction in rectum K56.41 Anemia D62 Anemia type: other cause Other causes of anemia: acute posthemorrhagic Cirrhosis of liver K74.60 Paroxysmal A-fib I48.0 Diabetes mellitus type 2, insulin dependent E11.9; Z79.4 Essential hypertension I10 Hypertension type: essential hypertension Depression, unspecified depression type F32.9 Depression Type: unspecified Anxiety F41.9 Sacral fracture S32.10XA Thiamine deficiency E51.9 Pancytopenia D61.818 History of pulmonary embolus (PE) Z86.711 (6) Anemia Anemia type: other cause Other causes of anemia: acute posthemorrhagic Qualified Code(s): D62 - Acute posthemorrhagic anemia (10) Hypertension Hypertension type: essential hypertension Qualified Code(s): I10 - Essential (primary) hypertension (11) Depression Depression Type: unspecified Qualified Code(s): F32.9 - Major depressive disorder, single episode, unspecified
[2023-09-02] MEDS: PANTOprazole 40 MG TAB PO SCH (07:35)
[2023-09-02] MEDS: SUCRALFATE 1 GM/10 ML UDC PO SCH ×2 (07:35→12:21)
[2023-09-02] MEDS: THIAMINE HCL 100 MG TAB PO SCH (07:35)
[2023-09-02] MEDS: METOPROLOL SUCC 25MG EXT REL TAB PO SCH (07:36)
[2023-09-02] MEDS: FLUCONAZOLE 100 MG TAB PO SCH (07:36)
[2023-09-02] MEDS: APIXABAN 5 MG TABLET PO SCH (07:36)
[2023-09-02] MEDS: MAGNESIUM OXIDE 400 MG TAB PO SCH (07:36)
[2023-09-02] MEDS: SENNA 8.6 MG TAB PO SCH (07:37)
[2023-09-02] MEDS: VENLAFAXINE HCL XR 150 MG CAPXR PO SCH (07:37)
[2023-09-02] MEDS: DICLOFENAC SOD 1% GEL 100 GM TUBE EXT SCH (07:37)
[2023-09-02] MEDS: CETIRIZINE HCL 10 MG TABLET PO SCH (07:37)
[2023-09-02] MEDS: VENLAFAXINE HCL XR 75 MG CAPXR PO SCH (07:37)
[2023-09-02] MEDS: QUEtiapine FUMARATE 25 MG TABLET PO SCH (07:37)
[2023-09-02] MEDS: LACTULOSE SYRUP 20 GM/30 ML UDC PO SCH (07:40)
[2023-09-02] MEDS: LANTUS PER UNIT CHARGE SQ SCH (08:28)
[2023-09-02] MEDS: INSULIN ASPART PER UNIT CHARGE SC SCH ×2 (08:29→12:20)
[2023-09-02] MEDS ORDERED: cephALEXin 500 MG CAP PO SCH (09:00)
[2023-09-02] MEDS ORDERED: MUPIROCIN 2% OINT 22 GM TUBE EXT SCH (12:45)
--- NOTE | 2023-09-02 13:18 | Discharge Summary ---
Date of Service September 02, 2023 Admission HPI Per Admitting Provider Pt is a 63 yo female with a past medical history of anxiety/depression, a fib, DMT2 on insulin, HTN, liver cirrhosis, hx cryptococcal meningitis, hx DVT who presents to the hospital on 08/10/23 for constipation and placement concerns. Pt states that she started having abdominal pain about 2 days ago, cramping and diffuse, which worsened over the past few days. She states that she was able to pass some stool yesterday with some bright red blood. She states that she had an SBO earlier this year and the pain felt very similar. She has had multiple abdominal surgeries, including cholecystectomy and hysterectomy. She received a enema in the ER today and passed a softball size amount of stool and was noted to have some abrasions around the anus. She states she feels much better now, mostly having abdominal soreness and some anal burning. She has had issues with constipation before and takes fiber gummies daily. Some nausea but no vomiting, was able to eat a [employer] cheeseburger for lunch without issue. She comes from [facility] and pt state she does not want to go back, wants to go to a different facility from here. Discharge Exam gen - NAD, looks well mouth - MMM neck - no JVD heart - RRR, s1 s2, no murmur lungs - CTA b/l abd - soft NT ND BS+ ext - no edema, pulses 2+ b/l psych - no psychosis, awake/alert Discharge Data Allergies Allergy/AdvReac Type Severity Reaction Status Date / Time Penicillins Allergy Intermediate Hives Verified 08/10/23 16:39 atorvastatin Allergy Unknown CAN'T Verified 08/10/23 16:39 REMEMBER/? RAISED LIVER LEVELS gemfibrozil [From Lopid] Allergy Unknown CAN'T Verified 08/10/23 16:39 REMEMBER/ ? RAISED LIVER LEVELS rosuvastatin AdvReac Intermediate Muscle Pain Verified 08/10/23 16:39 acetaminophen [From Tylenol] AdvReac Unknown CAN NOT Verified 08/10/23 16:39 TAKE D/T LIVER ISSUES ibuprofen AdvReac Unknown liver Verified 08/10/23 16:39 issues Consultations 08/10/23 18:42 ED Decision to Admit Stat 08/11/23 14:41 Consult Psychiatry Routine 08/11/23 16:25 Consult Gastroenterology Routine Ordered Studies 08/31/23 07:00 MR brain wo/w con Routine Hospital Course (1) Hallucinations: patient has had these during past admissions as well as outside of the hospital. improved s/p titration of seroquel to 100mg HS. UTI may have been contributing as well. no obvious hallucinations today. appreciate assistance from Dr Wayne from psychiatry who knows Mrs Marcelo well from prior admissions. MRI brain returned UNCHANGED from her prior MRI in June. I messaged her [facility] physician with the news of the unchanged MRI brain. (2) Generalized weakness: during this prolonged stay her weakness had improved nicely with treating the following issues - anemia, deconditioning, recent UTI, cirrhosis, depression, B1 deficiency, severe constipation/impaction, etc. has received PT, OT while here. her overall strength is good and walking is wnl. 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 - but no signs of such clinically at this time and LP in June did not show WBCs and fungal culture was negative follows with Sriniv[facility] DOUGLAS in [place] LFTs have been stable/wnl repeat MRI Brain today UNCHANGED from prior MRI in 06/2023 has f/u with Srinivasa DOUGLAS - Dr Huggins at [place] office - 10/11/23 Poston message sent to him today (4) GI bleeding: concern for such earlier in the admission. s/p 2 units PRBCs this admission. s/p venofer IV x 3 doses. GI consulted; endoscopic eval deferred. source of presumed bleeding/anemia uncertain. remains on PPI twice daily + carafate QID. H/H remain stable. send to [facility] GI post-d/c. (5) Fecal impaction in rectum: resolved cont bowel maintenance - lactulose + senna (6) Anemia: s/p 2 units PRBCs earlier this admission. Lowest Hb was 6.6 on 08/12/23. Fe studies c/w Fe def anemia with ferritin of 15. s/p 3 runs of IV venofer. B12/folate wnl H/H have been stable last several days (7) Cirrhosis of liver: LFTs stable CBC stable AFP negative no evidence of hepatic encephalopathy no decompensated cirrhosis has been on lactulose for HE prophylaxis but won't take it lasix has been on hold - remains compensated a review of old CT reports shows no ascites since 05/2022 would use lasix prn (8) Paroxysmal A-fib: cont metoprolol succ 25mg BID cont Eliquis BID (9) Diabetes mellitus type 2, insulin dependent: Hba1c 6.5% cont lantus but at 5 units BID cont novolog ac/hs (10) Hypertension: cont meto succ BID controlled (11) Depression: continue home venlafaxine 225mg/day continue remeron 30mg HS cont seroquel HS 100mg; 25mg qam see #1 above (12) Anxiety: cont venlafaxine (13) Sacral fracture: possible noted s3 lucency on imaging early in the stay no report of pain since early days of the admission (14) Thiamine deficiency: B1 level undetectable thiamine 200mg BID x 30 days certainly could have been contributing to chronic fatigue, altered MS, etc (15) Pancytopenia: likely 2nd to liver disease TSH, B12, folate all wnl CBC stable today (16) History of pulmonary embolus (PE): with DVT 2021 Eliquis 5mg BID Plan sister updated at bedside today can d/c tomorrow to [facility] Discharge Plan Discharge Items Patient Disposition: Personal Fdc Reason For Visit: Severe constipation/impaction Discharge Diagnosis: 1. Constipation/fecal impaction - resolved 2. Thiamine deficiency 3. Hallucinations - acute on chronic - improved 4. History of cryptococcal meningitis - 2021 5. Insomnia, depression, anxiety 6. Cirrhosis 7. Diabetes mellitus 8. Iron deficiency anemia 9. Minor left 2nd toenail injury Activity: Resume your previous activity Non-emergency contact: Primary Care Provider and Specialist Call non-emergency contact if: you have any medication questions, your symptoms worsen and you have a fever Follow-up/Referrals: Delbert Dailey MD [Physician] - 09/28/23 10:30 am (KEEP YOUR YEARLY APPOINTMENT 12/2023) Dorota Galeana PA-C [Physician Die Presser] - 09/06/23 2:20 pm (iron deficiency anemia, ?need for outpatient EGD/colonoscopy?; ideally within 2 weeks for f/u appointment. ) Leia Doyle DO [Primary Care Provider] - 09/05/23 10:20 am (5-7 days ) Devaughn Tsai PA-C [Physician Die Presser] - 10/11/23 (diabetes follow-up ) Clarice Huggins MD [Physician] - 10/11/23 10:20 am (Date & Time 10/11/2023 10:20 AM Provider Clarice Huggins MD Department Infectious Disease [facility] ) Diet: Carb Consistent or DM2 Addtl Attending Provider Instructions: Mrs Marcelo was treated for constipation/fecal impaction, thiamine deficiency, iron deficiency, suspected urinary tract infection, and hallucinations. MRI brain with contrast was unchanged from prior brain MRI completed in June 2023. Multiple adjustments were made to your insulin regimen. You received IV iron for your iron deficiency. Discharge hemoglobin 10.8. Adjustments were made to your antidepressants and other mental health medications. Recommendations - 1. Fingerstick blood sugar checks before meals & at bedtime. 2. Repeat CBC and BMP/magnesium in 5 days for stability. 3. Daily AM standing scale weights. Please contact her primary care doctor if there is any weight gain of more than 3 pounds in 1-2 days. 4. Follow up with [facility] Infectious [facility] Dr. Huggins for history of cryptococcal meningitis - see appointment date/time. This will be at the [place] [facility]. 5. Follow up with [facility] gastroenterology for outpatient colonoscopy and EGD. They saw you in the hospital due to iron deficiency anemia and concern for GI blood loss. 6. See other appointment dates and times. 7. Left 2nd toe - apply bactroban ointment to the nail region, cover with optifoam dressing. Perform daily and prn. Likely will need this regimen for about 7 days. Return to [facility] if - * you have fevers over 100 degrees * you have worsening confusion or lethargy * you have shortness of breath or chest pains * you have abdominal pains * you see dark/black or tarry looking stools * any other concerns It was our pleasure caring for you! Pending Studies at Discharge: No Stand-Alone Forms: My [facility], Smoking Cessation Skilled Items Patient informed of condition?: Yes DNR: No Discharge Level of Care: Other Communicable Disease: No Discharge Prognosis: Stable Lines: None Urinary Catheter: No Medications and DC Order Prescriptions: New sennosides [Senokot] 8.6 mg Tablet 17.2 mg PO QAM Qty: 60 2RF thiamine HCl (vitamin B1) 100 mg Tablet 200 mg PO DAILY Qty: 60 2RF mirtazapine 15 mg Tablet 30 mg PO HS Qty: 60 2RF lactulose 20 gram/30 mL Solution 20 g PO DAILY 30 Days Qty: 900 2RF quetiapine 25 mg Tablet 25 mg PO QAM Qty: 30 2RF cephalexin 500 mg Capsule 500 mg PO BID 5 Days Qty: 10 0RF Saline Mist 0.65 % Aerosol,[place] 2 spray NA Q1H PRN (Reason: dry/congested nose) Qty: 1 0RF mupirocin 2 % Ointment 1 applic EXT DAILY Qty: 1 0RF Rx Instructions: apply daily to left 2nd toe and then cover with optifoam dressing. Continue x 7 days. insulin aspart U-100 [Novolog FlexPen U-100 Insulin] 100 unit/mL (3 mL) insulin pen 1 sliding scale dose subcut USEASDIRECTD Qty: 15 0RF Rx Instructions: For MEAL-TIME use only; do not give at bedtime. Fingerstick blood sugar goal range: 120-160. Correction factor 30. Carbohydrate ratio -- 1 unit of novolog for every 12 grams of carbohydrates consumed. Continued fluconazole 200 mg Tablet 400 mg PO DAILY venlafaxine 75 mg capsule,extended release 24hr 75 mg PO HS Rx Instructions: TOTAL DOSE 225 MG--TAKES WITH 150 MG CAP. furosemide 20 mg tablet 20 mg PO QAM PRN (Reason: volume overload or weight gain) Qty: 30 0RF Rx Instructions: for weight gain of more than 2-3 pounds over 1-2 days. betamethasone dipropionate 0.05 % lotion 1 applic topical TID PRN (Reason: skin irritation) Qty: 60 0RF Rx Instructions: avoid face/genitals lidocaine 5 % Adhesive Patch,Medicated 1 patch transdermal QAM Qty: 30 0RF multivitamin tablet 1 tab PO QAM Qty: 30 0RF sucralfate [Carafate] 100 mg/mL suspension 10 ml PO QID Qty: 420 0RF Rx Instructions: swish in mouth and swallow; use after food/drink: May substitute tablets as a slurry. promethazine 12.5 mg tablet 12.5 mg PO TID PRN (Reason: nausea and vomiting) Qty: 30 2RF (DME) Contour Next Test Strips Strip See Rx Instructions .ROUTE .MEDSUPPLY Qty: 300 11RF Rx Instructions: Test blood sugars 6 times a day pantoprazole 40 mg tablet,delayed release (DR/EC) 40 mg PO BID Qty: 180 1RF metoprolol succinate 25 mg Tablet Extended Release 24 Hr 25 mg PO BID Qty: 60 0RF Saccharomyces boulardii [Florastor] 250 mg capsule 250 mg PO BID Qty: 20 0RF cholecalciferol (vitamin D3) 50 mcg (2,000 unit) capsule 2,000 unit PO DAILY Qty: 90 3RF Mag 64 64 mg Tablet,Delayed Release (Dr/Ec) 64 mg PO BID Qty: 60 0RF Zyrtec 10 mg capsule 10 mg PO DAILY Qty: 90 1RF Eliquis 5 mg Tablet 5 mg PO BID Qty: 60 0RF Changed potassium chloride 10 mEq capsule, extended release 10 meq PO DAILY Qty: 30 2RF quetiapine 25 mg tablet 100 mg PO HS Qty: 60 0RF venlafaxine 150 mg capsule,extended release 24hr 150 mg PO DAILY Qty: 30 0RF Rx Instructions: TOTAL DOSE 225 MG--TAKES WITH 75 MG CAP. fluticasone propionate [Flonase Allergy Relief] 50 mcg/actuation spray, suspension 2 spray intranasal DAILY Qty: 16 2RF Rx Instructions: administer into each nostril insulin glargine [Lantus Solostar U-100 Insulin] 100 unit/mL (3 mL) insulin pen 5 unit subcut AMPM Qty: 12 0RF Discontinued meclizine 12.5 mg tablet 12.5 mg PO QAM Qty: 30 1RF diphenhydramine HCl [Allergy (diphenhydramine)] 25 mg capsule 25 mg PO TID PRN (Reason: Allergy Symptoms) Qty: 30 0RF Discharge Orders: Discharge Order (Routine); Ordered 09/02/23 Ordered By: Irvin Landry Admission Data Admit Date/Time: 08/12/23 12:21 Attending Provider: Irvin Landry Admit Provider: Michelle Subramanian Primary Care Provider: Leia Doyle Other Providers: Irvin Rodriguez; Bettye Rodríguez; Kera Wayne; Luis Daniel Masters; Nicolas Salas; [facility] Coding Diagnoses Hallucinations R44.3 Generalized weakness R53.1 Cryptococcal meningitis B45.1 GI bleeding K92.2 Fecal impaction in rectum K56.41 Anemia D62 Anemia type: other cause Other causes of anemia: acute posthemorrhagic Cirrhosis of liver K74.60 Paroxysmal A-fib I48.0 Diabetes mellitus type 2, insulin dependent E11.9; Z79.4 Essential hypertension I10 Hypertension type: essential hypertension Depression, unspecified depression type F32.9 Depression Type: unspecified Anxiety F41.9 Sacral fracture S32.10XA Thiamine deficiency E51.9 Pancytopenia D61.818 History of pulmonary embolus (PE) Z86.711
== END 2023-09-02 13:38 | disposition home or self-care (01) | DRG 389 ==
LOC: 3E 11:54 → ED 11:54 → SUATTDRO 19:03 → 3E 20:22 → SUATTDRO 08-12 12:21

== ENCOUNTER 2023-11-11 08:14 | Inpatient (IN) ==
--- NOTE | 2023-11-11 08:52 | Emergency Department Note ---
Impression & Plan Altered mental state, UTI (urinary tract infection), Sepsis ED Provider Note Diagnosis: Altered mental status, sepsis, UTI Disposition: Admission CHIEF COMPLAINT: Altered mental status HPI: Patient 63-year-old female presenting from local group home facility with altered mental status. Patient reportedly may have had a mechanical fall last evening. Patient found to be hard to be aroused this morning. Patient's blood sugar was in the 400 range. Call was placed to on-call physician for the nursing facility and they recommended transfer to the emergency room. Patient has not missed any doses of insulin. Patient has not had any recent infectious symptoms. Patient upon arrival arouses to painful stimuli answers questions once painful stimuli is enacted. Patient does not have any focal deficits on exam when you do wake the patient up. Patient reportedly received 500 cc of fluid prior to arrival by EMS. PAST MEDICAL HISTORY: See Below PAST SURGICAL HISTORY: See Below SOCIAL HISTORY: See Below HOME MEDICATIONS: See Below ALLERGIES: See Below VITALS: See Below PHYSICAL EXAMINATION: GENERAL: Moderate distress EYE EXAM: Normal conjunctiva. OROPHARYNX: Moist mucus membranes. Grossly normal dentition. NECK: Supple, LUNGS: Clear to auscultation. Normal chest wall mechanics. HEART: NSR ABDOMEN: Abdomen soft, non-tender, normo-active bowel sounds, no masses, no rebound or guarding BACK: No CVA TTP. SKIN: No rashes and no bruising. UPPER EXTREMITIES: Upper extremities are grossly normal LOWER EXTREMITIES: Grossly normal, no edema. NEURO EXAM: Alert to person, patient responds to painful stimuli, when patient is stimulated she does not have any focal deficits on exam. PSYCH: Cooperative MEDICAL DECISION MAKING: Reviewed external documents: History obtained from: Patient ER Course: Patient is a 63-year-old female presenting from nursing facility with altered mental status. Patient's blood sugar was found to be 400. Patient's blood sugar is elevated today however there is no significant increased anion gap and no signs of DKA. Patient had CT scan of the head which is negative for intracranial abnormality. Patient found to have an elevated lactate of 6. Patient started on broad-spectrum antibiotics. Patient found to have urinary tract infection. Patient's case discussed with hospital service accepts patient further treatment evaluation Labs (independently interpreted) are significant for: Lactate 6 Imaging results (independently interpreted): Chest x-ray without significant pneumonia EKG interpretation (independently interpreted): Sinus tachycardia no ST segment elevation or depression Medications given: Cefepime, vancomycin, normal saline Consultants: Hospitalist service Triage Nursing notes reviewed and agree them. 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[facility] for 4 mon summer [address] GONZALEZ & INFECTIOUS DISEASE IBS (irritable bowel syndrome) Stable History of COVID-12 January 2021 > [facility], not hospitalized, fever, ear pain- did give infusion in ER No current issues Dyslipidemia Cirrhosis of liver FOLLOWS W/ [facility] Stable currently Depression Anxiety Diabetes mellitus, type 2 IDDM Glucose fluctuates - since Covid in December 2020 Follows with endocrinology Insomnia Kidney stones FOLLOWS WITH DR FUCHS No current issues - monitoring currently Hypertension Hydronephrosis due to obstruction of ureter Surgical History Hx of left cataract extraction History of endoscopy Status post Dupuytren's fasciectomy Hx of surgical amputation of finger left pinky History of cystoscopy WITH STENTS AND STONE BASKETING History of lithotripsy History of total hip arthroplasty LEFT Hx of colonoscopy Hx of wisdom tooth extraction History of tonsillectomy and adenoidectomy Hx of total hysterectomy GERALD WITH BSO Hx of tubal ligation Hx laparoscopic cholecystectomy Family History Father , age 75 Family history of diabetes mellitus Coronary heart disease Brother Family history of diabetes mellitus Mother , age 67 Family history of diabetes mellitus Heart disease Hypertension Myocardial infarction Grandfather (Paternal) Family history of diabetes mellitus Grandmother (Paternal) Family history of diabetes mellitus Denies family history of Ovarian cancer Prostate cancer Breast cancer Colorectal cancer Social History Smoking Status: Unknown if ever smoked Tobacco Type: Cigarettes Second Hand Exposure: No; Do You Dip or Chew Tobacco: No; Hx Alcohol Use: No Hx Substance Use: No Preferred Language: French Communication Ability: Effective Visual Impairment: No Limitations Hearing Ability: Normal 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 Required: No Beliefs That Will Affect Care: None marital status: Current Living Situation: Residential Current Living Situation Comment: alone current occupational status: employed and disabled current occupation: [employer] does have disability for diabetes- insurance helps How many Children do You have: 2 Feels Safe at Home: Yes Childhood Exposure to Second-Hand Smoke: No Diet: diabetic caffeine: Yes during the past year weight has: increased > 10 lbs Dental Care, Regularly: No Physical Activity Frequency: Does not Exercise Seatbelt Use: always Sunscreen Use: Yes Gender Identity: Female Assistive Devices: None Allergies Allergies Allergy/AdvReac Type Severity Reaction Status Date / Time Penicillins Allergy Intermediate Hives Verified 10/25/23 14:06 atorvastatin Allergy Unknown CAN'T Verified 10/25/23 14:06 REMEMBER/? RAISED LIVER LEVELS gemfibrozil [From Lopid] Allergy Unknown CAN'T Verified 10/25/23 14:06 REMEMBER/ ? RAISED LIVER LEVELS rosuvastatin AdvReac Intermediate Muscle Pain Verified 10/25/23 14:06 acetaminophen [From Tylenol] AdvReac Unknown CAN NOT Verified 10/25/23 14:06 TAKE D/T LIVER ISSUES ibuprofen AdvReac Unknown liver Verified 10/25/23 14:06 issues Home Meds Home Medications Medication Instructions Recorded Confirmed apixaban 5 mg tablet (Eliquis) 5 mg PO .@8AM8PM 11/11/23 11/11/23 cetirizine 10 mg capsule (Zyrtec) 10 mg PO .@830AM allergy symptoms 11/11/23 11/11/23 cholecalciferol (vitamin D3) 50 2,000 unit PO .@830AM 11/11/23 11/11/23 mcg (2,000 unit) capsule fluconazole 200 mg tablet 400 mg PO .@830AM 11/11/23 11/11/23 fluticasone propionate 50 2 spray intranasal .@830AM 11/11/23 11/11/23 mcg/actuation nasal spray,suspension (Flonase Allergy Relief) insulin glargine 100 unit/mL (3 5 unit subcut .@[id number] 11/11/23 11/11/23 mL) subcutaneous pen (Lantus Solostar U-100 Insulin) lactulose 10 gram/15 mL oral 30 ml PO .@830AM 11/11/23 11/11/23 solution lidocaine 5 % topical patch 1 patch topical .@830AM 11/11/23 11/11/23 magnesium chloride 64 mg 64 mg PO .@[id number] 11/11/23 11/11/23 (magnesium chloride) tablet,delayed release (Mag 64) metoprolol succinate 25 mg 25 mg PO .@[id number] 11/11/23 11/11/23 tablet,extended release 24 hr mirtazapine 15 mg tablet 22.5 mg PO .@8PM 11/11/23 11/11/23 mirtazapine 30 mg tablet 30 mg PO .@900PM 11/11/23 11/11/23 multivitamin 1 tab PO .@830AM 11/11/23 11/11/23 pantoprazole 40 mg tablet,delayed 40 mg PO .@[id number] 11/11/23 11/11/23 release potassium chloride 10 mEq 10 meq PO .@830AM 11/11/23 11/11/23 capsule,extended release quetiapine 100 mg tablet 100 mg PO .@8PM 11/11/23 11/11/23 quetiapine 25 mg tablet 50 mg PO .@830AM 11/11/23 11/11/23 risperidone 0.5 mg tablet 0.5 mg PO .@830AM 11/11/23 11/11/23 sennosides 8.6 mg tablet (senna) 17.2 mg PO .@830AM 11/11/23 11/11/23 sucralfate 100 mg/mL oral 10 ml PO .@8AM,1230,530,8PM 11/11/23 11/11/23 suspension (Carafate) thiamine HCl (vitamin B1) 100 mg 200 mg PO .@830AM 11/11/23 11/11/23 tablet venlafaxine 150 mg 150 mg PO .@8PM 11/11/23 11/11/23 capsule,extended release 24 hr venlafaxine 75 mg capsule,extended 75 mg PO .@8PM 11/11/23 11/11/23 release 24 hr Previous Rx's Medication Instructions Recorded Contour Next Test Strips (blood #300 ea 09/02/23 sugar diagnostic) betamethasone dipropionate 0.05 % 1 applic topical TID PRN skin 09/02/23 lotion irritation #60 mL blood-glucose meter (Contour Next #1 ea 09/02/23 Glucose Meter kit) furosemide 20 mg tablet 20 mg PO QAM PRN volume overload 09/02/23 or weight gain #30 tabs lancets (Lancets,Ultra Thin) #200 ea 09/02/23 promethazine 12.5 mg tablet 12.5 mg PO TID PRN nausea and 09/02/23 vomiting #10 tabs insulin aspart U-100 100 unit/mL 1 sliding scale dose subcut 09/06/23 (3 mL) subcutaneous pen (Novolog USEASDIRECTD #15 mL FlexPen U-100 Insulin aspart) diclofenac sodium 1 % topical gel 4 g topical QID PRN arthritis #100 10/25/23 (Arthritis Pain (diclofenac)) grams pen needle, diabetic 32 gauge x #200 ea 11/01/2332" (BD Ultra-Fine Jody Pen Needle) Results & Data (ED) Vital Signs Vital Signs - 24 hr 11/11/23 08:25 11/11/23 08:45 11/11/23 09:07 Temperature 36.7 C Temperature Source Oral Pulse Rate 118 H 117 H 113 H Pulse Rate from SpO2 Sensor 114 H Respiratory Rate 18 21 Respiratory Effort / Characteristics Other Respiratory Pattern Regular Blood Pressure 116/78 146/90 H Blood Pressure Mean 90 108 Pulse Oximetry 100 98 Oxygen Delivery Method Room Air Sepsis Recent Fever Within 48 Hours No Sepsis New/Unexplained Change in Mental Status Yes Sepsis Action Taken by Nursing Physician Notified 11/11/23 09:14 11/11/23 09:14 11/11/23 09:14 Temperature Temperature Source Pulse Rate 112 H Pulse Rate from SpO2 Sensor 111 H Respiratory Rate 14 Respiratory Effort / Characteristics Respiratory Pattern Blood Pressure 144/88 H 144/88 H Blood Pressure Mean 113 113 Pulse Oximetry 98 Oxygen Delivery Method Sepsis Recent Fever Within 48 Hours Sepsis New/Unexplained Change in Mental Status Sepsis Action Taken by Nursing 11/11/23 09:30 11/11/23 10:00 11/11/23 11:00 Temperature Temperature Source Pulse Rate 111 H 113 H 120 H Pulse Rate from SpO2 Sensor 111 H 113 H 119 H Respiratory Rate 20 23 18 Respiratory Effort / Characteristics Respiratory Pattern Blood Pressure 134/84 142/92 H 147/82 H Blood Pressure Mean 100 108 103 Pulse Oximetry 98 98 97 Oxygen Delivery Method Sepsis Recent Fever Within 48 Hours Sepsis New/Unexplained Change in Mental Status Sepsis Action Taken by Nursing 11/11/23 11:30 Temperature Temperature Source Pulse Rate 110 H Pulse Rate from SpO2 Sensor 110 H Respiratory Rate 15 Respiratory Effort / Characteristics Respiratory Pattern Blood Pressure 122/78 Blood Pressure Mean 92 Pulse Oximetry 97 Oxygen Delivery Method Sepsis Recent Fever Within 48 Hours Sepsis New/Unexplained Change in Mental Status Sepsis Action Taken by Nursing Laboratory Data 11/11/23 08:25 11/11/23 14:15 Lab Results 11/11/23 11/11/23 11/11/23 Range/Units 08:25 09:16 09:40 WBC 5.75 (4.8-10.8) K/ul RBC 3.16 L (4.20-5.40) M/uL Hgb 8.7 L (12.0-16.0) g/dl Hct 27.0 L (37.0-47.0) % MCV 85.4 (80.0-100.0) fL MCH 27.5 (25.0-34.0) pg MCHC 32.2 (32.0-36.0) g/dL RDW Std Deviation 51.0 H (36.4-46.3) fL RDW Coeff of Jun 16.4 H (11.5-14.5) % Plt Count 110 L (130-400) K/uL MPV 11.3 (9.4-12.4) fL Immature Gran % (Auto) 0.2 % Neut % (Auto) 76.9 % Lymph % (Auto) 16.3 % [place] % (Auto) 5.2 % Eos % (Auto) 1.2 % Baso % (Auto) 0.2 % Neut # (Auto) 4.42 (1.40-6.50) K/uL Lymph # (Auto) 0.94 L (1.20-3.40) K/uL [place] # (Auto) 0.30 (0.11-0.59) K/uL Eos # (Auto) 0.07 (0.00-0.50) K/uL Baso # (Auto) 0.01 (0.00-0.20) K/uL Immature Gran # (Auto) 0.01 (0.01-0.20) K/uL VBG pH 7.34 L (7.36-7.41) VBG pCO2 33 L (38-50) mmHg VBG pO2 58 mmHg VBG HCO3 18 mmol/L VBG O2 Saturation 87.0 % VBG Base Excess -7.1 mEq/L Sodium 139 (136-145) mmol/L Potassium 4.3 (3.5-5.1) mmol/L Chloride 107 (98-107) mmol/L Carbon Dioxide 20 L (21-32) mmol/L Anion Gap 12 H (3-11) BUN 26 H (6-23) mg/dl Creatinine 0.81 (0.6-1.2) mg/dl Est Cr Clr Drug Dosing 89.0 ml/min Est GFR ( Amer) 89.0 ml/min Est GFR (Non-Af Amer) 76.8 ml/min BUN/Creatinine Ratio 32.1 H (10-20) Glucose 388 H* (70-99(Fasting)) mg/dl POC Glucose (70-99) mg/dl Lactate 6.7 H* (0.4-2.0) mmol/L Calcium 8.6 (8.6-10.3) mg/dl Magnesium 1.3 L (1.7-2.4) mg/dl Total Bilirubin 0.4 (0.2-1.0) mg/dl AST 45 H (13-39) U/L ALT 49 (7-52) U/L Alkaline Phosphatase 141 H (34-104) U/L Ammonia TNP Troponin I High Sens 5.7 (0-14) pg/ml B-Natriuretic Peptide (0-100) pg/ml Total Protein 6.2 (6.0-8.3) gm/dl Albumin 3.4 (3.4-5.0) gm/dl Globulin 2.8 (2.5-4.0) gm/dl Albumin/Globulin Ratio 1.2 (0.9-2) Procalcitonin (0-0.5) ng/ml TSH 2.484 (0.300-4.500) uIu/ml Urine Color Yellow Urine Appearance Clear (Clear) Urine pH 5.5 (4.5-7.5) Ur Specific Greig 1.024 (1.000-1.030) Urine Protein Negative (Negative) Urine Glucose (UA) 3+ H (Negative) Urine Ketones Trace H (Negative) Urine Blood Negative (Negative) Urine Nitrite Positive A (Negative) Urine Bilirubin Negative (Negative) Urine Urobilinogen Negative (Negative) Ur Leukocyte Esterase Trace H (Negative) Urine WBC (Auto) 10-30 H (0-5) /hpf Urine RBC (Auto) 0-4 (0-4) /hpf U Hyaline Cast (Auto) 0 (0-5) /lpf U Epithel Cells (Auto) 0-5 (0-5) /lpf Urine Bacteria (Auto) Negative (Negative) Calcium Oxalate Crystal Present A (None Prsent) Urine Yeast Not Reportable 11/11/23 11/11/23 11/11/23 Range/Units 10:27 10:29 11:43 WBC (4.8-10.8) K/ul RBC (4.20-5.40) M/uL Hgb (12.0-16.0) g/dl Hct (37.0-47.0) % MCV (80.0-100.0) fL MCH (25.0-34.0) pg MCHC (32.0-36.0) g/dL RDW Std Deviation (36.4-46.3) fL RDW Coeff of Jun (11.5-14.5) % Plt Count (130-400) K/uL MPV (9.4-12.4) fL Immature Gran % (Auto) % Neut % (Auto) % Lymph % (Auto) % [place] % (Auto) % Eos % (Auto) % Baso % (Auto) % Neut # (Auto) (1.40-6.50) K/uL Lymph # (Auto) (1.20-3.40) K/uL [place] # (Auto) (0.11-0.59) K/uL Eos # (Auto) (0.00-0.50) K/uL Baso # (Auto) (0.00-0.20) K/uL Immature Gran # (Auto) (0.01-0.20) K/uL VBG pH (7.36-7.41) VBG pCO2 (38-50) mmHg VBG pO2 mmHg VBG HCO3 mmol/L VBG O2 Saturation % VBG Base Excess mEq/L Sodium (136-145) mmol/L Potassium (3.5-5.1) mmol/L Chloride (98-107) mmol/L Carbon Dioxide (21-32) mmol/L Anion Gap (3-11) BUN (6-23) mg/dl Creatinine (0.6-1.2) mg/dl Est Cr Clr Drug Dosing ml/min Est GFR ( Amer) ml/min Est GFR (Non-Af Amer) ml/min BUN/Creatinine Ratio (10-20) Glucose (70-99(Fasting)) mg/dl POC Glucose 320 H* (70-99) mg/dl Lactate (0.4-2.0) mmol/L Calcium (8.6-10.3) mg/dl Magnesium (1.7-2.4) mg/dl Total Bilirubin (0.2-1.0) mg/dl AST (13-39) U/L ALT (7-52) U/L Alkaline Phosphatase (34-104) U/L Ammonia TNP Troponin I High Sens (0-14) pg/ml B-Natriuretic Peptide 98 (0-100) pg/ml Total Protein (6.0-8.3) gm/dl Albumin (3.4-5.0) gm/dl Globulin (2.5-4.0) gm/dl Albumin/Globulin Ratio (0.9-2) Procalcitonin 0.05 (0-0.5) ng/ml TSH (0.300-4.500) uIu/ml Urine Color Urine Appearance (Clear) Urine pH (4.5-7.5) Ur Specific Greig (1.000-1.030) Urine Protein (Negative) Urine Glucose (UA) (Negative) Urine Ketones (Negative) Urine Blood (Negative) Urine Nitrite (Negative) Urine Bilirubin (Negative) Urine Urobilinogen (Negative) Ur Leukocyte Esterase (Negative) Urine WBC (Auto) (0-5) /hpf Urine RBC (Auto) (0-4) /hpf U Hyaline Cast (Auto) (0-5) /lpf U Epithel Cells (Auto) (0-5) /lpf Urine Bacteria (Auto) (Negative) Calcium Oxalate Crystal (None Prsent) Urine Yeast 11/11/23 11/11/23 Range/Units 11:46 12:23 WBC (4.8-10.8) K/ul RBC (4.20-5.40) M/uL Hgb (12.0-16.0) g/dl Hct (37.0-47.0) % MCV (80.0-100.0) fL MCH (25.0-34.0) pg MCHC (32.0-36.0) g/dL RDW Std Deviation (36.4-46.3) fL RDW Coeff of Jun (11.5-14.5) % Plt Count (130-400) K/uL MPV (9.4-12.4) fL Immature Gran % (Auto) % Neut % (Auto) % Lymph % (Auto) % [place] % (Auto) % Eos % (Auto) % Baso % (Auto) % Neut # (Auto) (1.40-6.50) K/uL Lymph # (Auto) (1.20-3.40) K/uL [place] # (Auto) (0.11-0.59) K/uL Eos # (Auto) (0.00-0.50) K/uL Baso # (Auto) (0.00-0.20) K/uL Immature Gran # (Auto) (0.01-0.20) K/uL VBG pH (7.36-7.41) VBG pCO2 (38-50) mmHg VBG pO2 mmHg VBG HCO3 mmol/L VBG O2 Saturation % VBG Base Excess mEq/L Sodium (136-145) mmol/L Potassium (3.5-5.1) mmol/L Chloride (98-107) mmol/L Carbon Dioxide (21-32) mmol/L Anion Gap (3-11) BUN (6-23) mg/dl Creatinine (0.6-1.2) mg/dl Est Cr Clr Drug Dosing ml/min Est GFR ( Amer) ml/min Est GFR (Non-Af Amer) ml/min BUN/Creatinine Ratio (10-20) Glucose (70-99(Fasting)) mg/dl POC Glucose (70-99) mg/dl Lactate 5.2 H* (0.4-2.0) mmol/L Calcium (8.6-10.3) mg/dl Magnesium (1.7-2.4) mg/dl Total Bilirubin (0.2-1.0) mg/dl AST (13-39) U/L ALT (7-52) U/L Alkaline Phosphatase (34-104) U/L Ammonia TNP 34.0 Troponin I High Sens (0-14) pg/ml B-Natriuretic Peptide (0-100) pg/ml Total Protein (6.0-8.3) gm/dl Albumin (3.4-5.0) gm/dl Globulin (2.5-4.0) gm/dl Albumin/Globulin Ratio (0.9-2) Procalcitonin (0-0.5) ng/ml TSH (0.300-4.500) uIu/ml Urine Color Urine Appearance (Clear) Urine pH (4.5-7.5) Ur Specific Greig (1.000-1.030) Urine Protein (Negative) Urine Glucose (UA) (Negative) Urine Ketones (Negative) Urine Blood (Negative) Urine Nitrite (Negative) Urine Bilirubin (Negative) Urine Urobilinogen (Negative) Ur Leukocyte Esterase (Negative) Urine WBC (Auto) (0-5) /hpf Urine RBC (Auto) (0-4) /hpf U Hyaline Cast (Auto) (0-5) /lpf U Epithel Cells (Auto) (0-5) /lpf Urine Bacteria (Auto) (Negative) Calcium Oxalate Crystal (None Prsent) Urine Yeast Administered Medications Parenteral Electrolytes (Plasma-Lyte A Ph 7.4) 1,000 mls @ 100 mls/hr IV .Q10H HALEY Stop: 11/12/23 11:04 Last Admin: 11/11/23 15:51 Dose: 100 mls/hr Documented By: NEERU Insulin Glargine (Lantus Per Unit Charge) 5 units SQ BID HALEY Stop: 12/11/23 11:59 Last Admin: 11/11/23 13:07 Dose: 5 units Documented By: ANTHONY Co-signed By: CC Discontinued Medications Sodium Chloride (Nss) 500 mls @ 999 mls/hr IV .Q31M HALEY Stop: 11/11/23 09:30 Last Infusion: 11/11/23 09:51 Dose: Infused Documented By: Admin: 11/11/23 09:00 Dose: 999 mls/hr Documented By: DUYEN Cefepime HCl (Maxipime) 2,000 mg in 20 mls @ 5 mls/min IV NOW STA; Protocol Stop: 11/11/23 09:47 Last Admin: 11/11/23 10:40 Dose: 5 mls/min Documented By: DUYEN Vancomycin HCl 2,500 mg/ (Sodium Chloride) 550 mls @ 200 mls/hr IV NOW ONE Stop: 11/11/23 12:29 Last Infusion: 11/11/23 14:57 Dose: Infused Documented By: Admin: 11/11/23 10:41 Dose: 200 mls/hr Documented By: DUYEN Sodium Chloride (Nss) 620 mls @ 620 mls/hr IV .Q1H ONE Stop: 11/11/23 10:59 Last Infusion: 11/11/23 10:41 Dose: Infused Documented By: Admin: 11/11/23 09:46 Dose: 620 mls/hr Documented By: DUYEN Magnesium Sulfate/Dextrose (Magnesium Sulfate / D5w) 1 gm in 100 mls @ 50 mls/hr IV Q2H HALEY Stop: 11/11/23 15:14 Last Admin: 11/11/23 15:08 Dose: 50 mls/hr Documented By: Infusion: 11/11/23 14:58 Dose: Infused Documented By: Admin: 11/11/23 12:58 Dose: 50 mls/hr Documented By: ANTHONY Parenteral Electrolytes (Plasma-Lyte A Ph 7.4) 500 mls @ 999 mls/hr IV .Q31M ONE Stop: 11/11/23 11:52 Last Admin: 11/11/23 13:10 Dose: Not Given Documented By: ANTHONY Parenteral Electrolytes (Plasma-Lyte A Ph 7.4) 1,000 mls @ 999 mls/hr IV .Q1H1M ONE Stop: 11/11/23 13:15 Last Infusion: 11/11/23 15:51 Dose: Infused Documented By: Admin: 11/11/23 13:10 Dose: 999 mls/hr Documented By: ANTHONY Insulin Aspart (Insulin Aspart Per Unit Charge) 3 units SC NOW STA Stop: 11/11/23 11:52 Last Admin: 11/11/23 13:01 Dose: 3 units Documented By: ANTHONY Co-signed By: JIN Ioversol (Optiray 320 500ml) 91 ml IV ONCE ONE Stop: 11/11/23 12:11 Last Admin: 11/11/23 12:06 Dose: 91 ml Documented By: [facility] Imaging Data Radiologist's Impression: Chest X-Ray 11/11/23 08:46 SINGLE VIEW CHEST CLINICAL HISTORY: Generalized weakness. Vertigo. FINDINGS: An AP, portable, upright chest radiograph is compared to study dated 06/23/2023 and correlated with chest CT dated 05/30/2023. The cardiomediastinal silhouette is unremarkable. Chronic interstitial thickening is similar to previous. There is mild bibasilar scarring/atelectasis. The lungs and pleural spaces are otherwise clear. No pneumothorax is seen. The skeletal structures are osteopenic. The bony thorax is grossly intact. IMPRESSION: No active disease in the chest. ACT 112: Negative or not required by law. Electronically signed by: Hunter Martinez M.D. 11/11/2023 10:[address] 11/11/23 08:47 CT OF THE HEAD WITHOUT CONTRAST CLINICAL HISTORY: Altered mental status. COMPARISON STUDY: Head CT June 23, 2023. MRI of the brain August 31, 2023. CT DOSE: 1624.85 mGy.cm TECHNIQUE: Helical axial images of the head were obtained without IV contrast. Automated exposure control was utilized for the study. A dose lowering technique was utilized adhering to the principles of ALARA. FINDINGS: No acute intracranial hemorrhage, midline shift or mass effect is present. The ventricular system is unremarkable. The basal cisterns are patent. No extra-axial or hypodense foci are unchanged and favor small vessel disease. There are no calvarial fracture. There is moderate mucosal thickening of the right maxillary sinus with secretions, new since previous MRI. Mild ethmoid sinus mucosal thickening is present. IMPRESSION: 1. No acute intracranial findings. 2. Moderate right maxillary sinus mucosal thickening with secretions, new since previous MRI. This may reflect acute sinusitis. ACT 112: Negative or not required by law. Electronically signed by: Godwin Burden M.D. 11/11/2023 9:13 AM Abdomen/Pelvis CT 11/11/23 11:22 CT OF THE ABDOMEN AND PELVIS WITH CONTRAST CLINICAL HISTORY: Abdominal pain. Sepsis. COMPARISON STUDY: CT of the abdomen and pelvis June 15, 2023. KUB August 17, 2023. TECHNIQUE: Following IV administration of 91 mL of Optiray, axial images of the abdomen and pelvis were obtained from the lung bases to the proximal femurs. Images were reviewed in the axial, sagittal, and coronal planes. IV contrast was administered without complication. Automated exposure control was utilized for the study. A dose lowering technique was utilized adhering to the principles of ALARA. CT DOSE: 1005.08 mGy.cm FINDINGS: Lung bases are unremarkable. No pneumatosis, free air or portal venous gas is present. The liver is cirrhotic. No hepatic lesions are identified on the venous phase exam. Main, left and right portal veins are patent. There is no biliary ductal dilatation status post cholecystectomy. A small calcification within the pancreas is present. There is no peripancreatic infiltration. Spleen, adrenal glands and left kidney are unremarkable. Bladder is moderately distended. No ureteral calculi. Several calculi within the lower pole of the right kidney measure up to 5 mm. The appendix is normal. Caliber and wall thickness of small and large bowel are normal. There is trace fluid within the pelvis. There is no lymphadenopathy. No fluid collections are present. Left hip arthroplasty is intact. There are no acute fractures. Possible avascular necrosis of the right femoral head without collapse. There is moderate plaque within the abdominal aorta. Branch vessels are patent. IMPRESSION: 1. No acute process within the abdomen or pelvis. 2. No bowel obstruction. No bowel wall thickening. Normal appendix. 3. Cirrhotic liver. Trace pelvic ascites. 4. Right nephrolithiasis. No ureteral calculi. No hydronephrosis. 5. Distended bladder. ACT 112: Negative or not required by law. Electronically signed by: Godwin Burden M.D. 11/11/2023 12:24 PM Discharge Plan Visit Data Chief Complaint: Altered Mental Status Stated Complaint: HYPERGLYCEMIA, AMS ED Provider: Jimy Emery Discharge Problem: Altered mental state, UTI (urinary tract infection), Sepsis Discharge Instructions Interventions: ED Discharge Assessment Last Done: 11/11/23 15:06
[2023-11-11] MEDS: SODIUM CHLORIDE 0.9% 500 ML IV SCH (09:00)
[2023-11-11 09:05] LABS: Basophils # (auto) 0.01 K/uL (0.00-0.20); Basophils % (auto) 0.2 %; Eosinophils # (auto) 0.07 K/uL (0.00-0.50); Eosinophils % (auto) 1.2 %; Hemoglobin 8.7 g/dl (12.0-16.0); Immature Granulocytes # (auto) 0.01 K/uL (0.01-0.20); Immature Granulocytes % (auto) 0.2 %; Lymphocytes # (auto) 0.94 K/uL (1.20-3.40); Lymphocytes % (auto) 16.3 %; Mean Corpuscular Hemoglobin 27.5 pg (25.0-34.0); Mean Corpuscular Hgb Conc 32.2 g/dL (32.0-36.0); Mean Corpuscular Volume 85.4 fL (80.0-100.0); Mean Platelet Volume 11.3 fL (9.4-12.4); Monocytes % (auto) 5.2 %; Neutrophils # (auto) 4.42 K/uL (1.40-6.50); Neutrophils % (auto) 76.9 %; Platelet Count 110 K/uL (130-400); RDW Coefficient of Variation 16.4 % (11.5-14.5); Red Blood Count 3.16 M/uL (4.20-5.40); White Blood Count 5.75 K/ul (4.8-10.8)
--- NOTE | 2023-11-11 09:14 | CT Scan Report ---
CT OF THE HEAD WITHOUT CONTRAST CLINICAL HISTORY: Altered mental status. COMPARISON STUDY: Head CT June 23, 2023. MRI of the brain August 31, 2023. CT DOSE: 1624.85 mGy.cm TECHNIQUE: Helical axial images of the head were obtained without IV contrast. Automated exposure con trol was utilized for the study. A dose lowering technique was utilized adhering to the principles o f ALARA. FINDINGS: No acute intracranial hemorrhage, midline shift or mass effect is present. The ventricular system is unremarkable. The basal cisterns are patent. No extra-axial or hypodense foci are unchanged and favor small vessel disease. There are no calvarial fracture. There is moderate mucosal thickenin g of the right maxillary sinus with secretions, new since previous MRI. Mild ethmoid sinus mucosal th ickening is present. IMPRESSION: 1. No acute intracranial findings. 2. Moderate right maxillary sinus mucosal thickening with secretions, new since previous MRI. This ma y reflect acute sinusitis. ACT 112: Negative or not required by law. Electronically signed by: Godwin Burden M.D. 11/11/2023 9:13 AM
[2023-11-11 09:28] LABS: Base Excess VBG -7.1 mEq/L; HCO3 VBG 18 mmol/L; PCO2 VBG 33 mmHg (38-50); PO2 VBG 58 mmHg; pH VBG 7.34 (7.36-7.41)
[2023-11-11 09:40] LABS: Albumin Globulin Ratio 1.2 (0.9-2); Albumin Level 3.4 gm/dl (3.4-5.0); BUN Creatinine Ratio 32.1 (10-20); Bilirubin,Total 0.4 mg/dl (0.2-1.0); Calcium 8.6 mg/dl (8.6-10.3); Est GFR (Non-African American) 76.8 ml/min; Globulin 2.8 gm/dl (2.5-4.0); Magnesium 1.3 mg/dl (1.7-2.4); Potassium 4.3 mmol/L (3.5-5.1); Total Protein 6.2 gm/dl (6.0-8.3); Troponin I High Sensitivity 5.7 pg/ml (0-14)
[2023-11-11] MEDS ORDERED: SODIUM CHLORIDE 0.9% 620 ML IV ONE (09:43)
[2023-11-11 09:44] LABS: Thyroid Stimulating Hormone 2.484 uIu/ml (0.300-4.500)
[2023-11-11] MEDS ORDERED: VANCOMYCIN CONSULT ACTIVE PRN ×2 (09:45→11:30)
[2023-11-11] MEDS: SODIUM CHLORIDE 0.9% 620 ML IV ONE (09:46)
[2023-11-11 10:06] LABS: Appearance Urine Clear (Clear); Bacteria Urine Automated Negative (Negative); Bilirubin Urine Negative (Negative); Blood Urine Negative (Negative); Cast Urine Automated 0 /lpf (0-5); Color Urine Yellow; Epithelial Cell Urine Auto 0-5 /lpf (0-5); Glucose Urine UA 3+ (Negative); Ketones Urine Trace (Negative); Leukocyte Esterase Urine Trace (Negative); Nitrite Urine Positive (Negative); Protein Urine Negative (Negative); RBC Urine Automated 0-4 /hpf (0-4); Specific Gravity Urine 1.024 (1.000-1.030); Urobilinogen Urine Negative (Negative); pH Urine 5.5 (4.5-7.5)
--- NOTE | 2023-11-11 10:12 | XRay Report ---
SINGLE VIEW CHEST CLINICAL HISTORY: Generalized weakness. Vertigo. FINDINGS: An AP, portable, upright chest radiograph is compared to study dated 06/23/2023 and correlat ed with chest CT dated 05/30/2023. The cardiomediastinal silhouette is unremarkable. Chronic interstiti al thickening is similar to previous. There is mild bibasilar scarring/atelectasis. The lungs and ple ural spaces are otherwise clear. No pneumothorax is seen. The skeletal structures are osteopenic. The bony thorax is grossly intact. IMPRESSION: No active disease in the chest. ACT 112: Negative or not required by law. Electronically signed by: Hunter Martinez M.D. 11/11/2023 10:10 AM
[2023-11-11 10:18] LABS: Calcium Oxalate Crystals Urine Present (None Prsent)
[2023-11-11] MEDS: CEFEPIME 2,000 MG/20 ML VIAL IV STA (10:40)
[2023-11-11] MEDS: VANCOMYCIN HCL 2,500 MG in SODIUM CHLORIDE 0.9% 500 ML IV ONE (10:41)
[2023-11-11] MEDS ORDERED: VANCOMYCIN HCL 1,750 MG in SODIUM CHLORIDE 0.9% 500 ML IV SCH (11:30)
[2023-11-11] MEDS ORDERED: GLUCOSE 40% GEL 15 GM TUBE PO PRN (11:49)
[2023-11-11] MEDS ORDERED: DEXTROSE 50% 50 ML SYRINGE IV PRN (11:49)
[2023-11-11] MEDS ORDERED: GLUCAGON FOR INJ 1 MG VIAL SQ PRN (11:49)
[2023-11-11] MEDS ORDERED: CARBOHYDRATES FOR HYPOGLYCEMIA PO PRN (11:49)
[2023-11-11] MEDS ORDERED: GLUCOSE 10 TAB/TUBE PO PRN (11:49)
--- NOTE | 2023-11-11 11:51 | History & Physical Report ---
Date of Service November 11, 2023 Assessment & Plan (1) Metabolic encephalopathy: Plan: Patient is admitted for acute metabolic encephalopathy suspect due to UTI Patient is tachycardic, confused, with an elevated lactate on admission. She is not tachypneic or febrile. Most likely urinary source with infected appearing UA. Additional Per family patient had 2 to 3 days of abdominal discomfort and watery bowels prior to becoming confused, was maintaining in her normal state of health yesterday up until around 8 PM Has recently been on antibiotics for UTI. Given diarrhea post antibiotic use will order C. difficile. Patient is not able to give an adequate history is extremely somnolent and awakens transiently to sternal rub, given reports of abdominal pain and potential sepsis will obtain CTA/P with IV contrast. Renal function is at baseline Repeat lactate pending. Patient ordered 1600 cc of crystalloid to complete 30 cc/kg of ideal body weight fluid resuscitation. Clinically remains volume contracted, improving sinus tachycardia not yet normalized. 1 L additional Plasma-Lyte ordered and then transition to maintenance until tolerating Blood cultures pending, urine cultures pending, continue empiric cefepime. CTA/P pending Lactate repeat downtrending, not yet normalized. Procalcitonin normal No leukocytosis No history of CHF, BNP baseline around [id number]. Last echo 03/2022 with EF 55 to 60%, RVSP 3040, no wall motion abnormalities. BNP is normal at 98 on admission. Patient clinically volume contracted. 500 cc of additional Plasma- Lyte ordered (2) UTI (urinary tract infection): (3) Uncontrolled type 2 diabetes mellitus with hyperglycemia, with long-term current use of insulin: Plan: Type 2 diabetes mellitus Elevated greater than 350 on admission with some mildly increased. Bicarb 20. Type 2 diabetes. BSG post fluid resuscitation downtrending. 500cc additional bolus pending. Lantus 5u + aspart 4u ordered. BSG ACHS or q4h if NPO - Lantus 5 twice daily, weight based sliding scale SSI. Goal BSG [id number] (4) Anemia: Plan: History of anemia No black bowel movements noted per family, patient unable to give history at bedside. BUN is not disproportionately elevated. No known active bleeding. CThead without intracranial bleed Hemoglobin 8.7 on admission. Will trend x 1 post fluids, and then daily. S/p 3 doses of Venofer at prior admission, and s/p 2 units of packed red blood cells during July 2023 admission Patient has been on PPI twice daily and Carafate. B12 level 07/2023 normal. Folic acid level normal 07/2023. Thiamine was repleted and repeat level pending is ferritin/transferrin sat pending Thiamine deficiency Previously undetectable, had been repleted with 200 mg twice daily x 30 days. Had IV while inpatient and then was transitioned to oral. 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 nightly and 25 mg every morning held due to sedation, may resume this once mental status is improved. Has not received extra doses of this per record review Continue venlafaxine Mirtazapine nightly held for mental status, resume once improved (6) Paroxysmal A-fib: Plan: - sinus on admit - continue eliquis - metoprolol continued. If NPO --> convert to 2.5mg q6h to prevent BB withdrawal (7) Hypertriglyceridemia: (8) History of pulmonary embolus (PE): Plan: History of DVT/PE Continue on Eliquis 5 mg twice daily. 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 Remains afebrile and with no wbc. CThead without acute findings admission. Suspect current presentation is due to metabolic encephalopathy with UTI, if this is treated patient is not clinically improving can repeat MRI/lumbar tap at that point however do not feel this is clinically indicated with alternative etiologies at time of admit (10) Cirrhosis of liver: Plan: Liver cirrhosis Ammonia level pending History of past alcohol use in remission, NAFLD versus alcohol induced cirrhosis. Stable, no acute change in management at this time. PLT 110. Coags ordered History of Present Illness Primary Care Provider: Nori Temple MD Sudha is a 63-year-old female with a past medical history of anxiety/depression, cirrhosis, cryptococcal meningitis, A-fib, DM 2, hypertension, DVT recently admitted from 08/10 - 09/02 with intermittent hallucinations, generalized weakness, and placement evaluation who presents with AMS. Per Patient/Family: History is limited due to extreme somnolence and patient awakens only transiently to sternal rub. Collateral is collected from family at bedside. In the last several days Lynne has been in her normal state of health other than the development of a few days of very loose diarrhea, they are not sure how many but at least a couple which developed after antibiotics for her UTI. She was doing okay up until last night at 8 PM when she said she felt like she was getting sick and was fatigued. Had complained of some abdominal discomfort at that time. She had a mechanical fall without dizziness/syncope/presyncope without loss of consciousness or head strike. This morning she was very difficult to awaken and was referred to the ER for further evaluation and care. Lungs are diminished but grossly clear. Abdomen is soft, unable to adequately assess for pain due to mental status. Skin is warm and dry. Heart rate is tachycardic without murmurs rubs or gallops. Family is not sure if family received any medications this morning, do not think there have been any changes to her psychotropic medications. No opioid ingestions. Former tobacco use, no recent alcohol or tobacco use per family. Full code. Per ER Signout/Review: Recent hospitalization 2 months ago; at that time she was evaluated for interm ittent hallucinations which have occurred intermittently since cryptococcal meningitis in 2021. She did not know show any signs of recurrent infection. MRI did show cerebellar enhancement suspicious for scar tissue, residual low- grade infection was thought to be unlikely and she had a lumbar puncture 06/2023 which was negative. Psychiatry was consulted and patient had improvement with Seroquel 100 mg at bedtime and 25 mg every morning. She was noted to have superimposed UTI with potential worsening of encephalopathy, and did experience hospital delirium. Thiamine was repleted. Patient was to have outpatient follow-up with Dr. Gonzalez neurology. She remains on fluconazole 400 mg/day prophylaxis with stable LFTs at that time. She represents to the emergency department 11/11/2022 with confusion. Reported mechanical fall day prior, patient's somnolent morning of admission and was referred to the ER after nursing facility contacted on-call physician. BSG was 400. On ER evaluation she had no leukocytosis, hemoglobin was 8.7 with baseline of 9.211.5 following transfusion for level of 6.6 08/10/2023. VBG 7.3 //18 consistent with metabolic acidosis and incompletely compensating respiratory acidosis. Sodium normal Anion gap 12 Creatinine 0.81 BSG 388 Creatinine 0.81, at normal baseline Lactate 6.7 Phosphorus 1.3 Ammonia pending, recollect due to hemolysis BNP wnl Procalcitonin wnl TSH wnl UA infected appearing with leukocytes, leukocyte esterase, nitrites and no epis. CThead shows right maxillary sinus mucosal thickening suspicious for acute sinusitis otherwise no acute intracranial findings and no evidence of intracranial hemorrhage. Chest x-ray is without acute findings and no evidence of pulmonary edema. History of prior UTIs with MSSA, pansensitive E. coli, and low colony counts of Rocephin resistant Citrobacter Allergies Allergy/AdvReac Type Severity Reaction Status Date / Time Penicillins Allergy Intermediate Hives Verified 10/25/23 14:06 atorvastatin Allergy Unknown CAN'T Verified 10/25/23 14:06 REMEMBER/? RAISED LIVER LEVELS gemfibrozil [From Lopid] Allergy Unknown CAN'T Verified 10/25/23 14:06 REMEMBER/ ? RAISED LIVER LEVELS rosuvastatin AdvReac Intermediate Muscle Pain Verified 10/25/23 14:06 acetaminophen [From Tylenol] AdvReac Unknown CAN NOT Verified 10/25/23 14:06 TAKE D/T LIVER ISSUES ibuprofen AdvReac Unknown liver Verified 10/25/23 14:06 issues Home Medications Medication Instructions Recorded Confirmed Type Contour Next Test Strips (blood #300 ea 09/02/23 10/25/23 Rx sugar diagnostic) betamethasone dipropionate 0.05 % 1 applic topical TID PRN skin 09/02/23 11/11/23 Rx lotion irritation #60 mL blood-glucose meter (Contour Next #1 ea 09/02/23 10/25/23 Rx Glucose Meter kit) furosemide 20 mg tablet 20 mg PO QAM PRN volume overload 09/02/23 11/11/23 Rx or weight gain #30 tabs lancets (Lancets,Ultra Thin) #200 ea 09/02/23 10/25/23 Rx promethazine 12.5 mg tablet 12.5 mg PO TID PRN nausea and 09/02/23 11/11/23 Rx vomiting #10 tabs insulin aspart U-100 100 unit/mL 1 sliding scale dose subcut 09/06/23 11/11/23 Rx (3 mL) subcutaneous pen (Novolog USEASDIRECTD #15 mL FlexPen U-100 Insulin aspart) diclofenac sodium 1 % topical gel 4 g topical QID PRN arthritis #100 10/25/23 11/11/23 Rx (Arthritis Pain (diclofenac)) grams pen needle, diabetic 32 gauge x #200 ea 11/01/23 Rx " (BD Ultra-Fine Jody Pen Needle) apixaban 5 mg tablet (Eliquis) 5 mg PO .@8AM8PM 11/11/23 11/11/23 History cetirizine 10 mg capsule (Zyrtec) 10 mg PO .@830AM allergy symptoms 11/11/23 11/11/23 History cholecalciferol (vitamin D3) 50 2,000 unit PO .@830AM 11/11/23 11/11/23 History mcg (2,000 unit) capsule fluconazole 200 mg tablet 400 mg PO .@830AM 11/11/23 11/11/23 History fluticasone propionate 50 2 spray intranasal .@830AM 11/11/23 11/11/23 History mcg/actuation nasal spray,suspension (Flonase Allergy Relief) insulin glargine 100 unit/mL (3 5 unit subcut .@[id number] 11/11/23 11/11/23 History mL) subcutaneous pen (Lantus Solostar U-100 Insulin) lactulose 10 gram/15 mL oral 30 ml PO .@830AM 11/11/23 11/11/23 History solution lidocaine 5 % topical patch 1 patch topical .@830AM 11/11/23 11/11/23 History magnesium chloride 64 mg 64 mg PO .@[id number] 11/11/23 11/11/23 History (magnesium chloride) tablet,delayed release (Mag 64) metoprolol succinate 25 mg 25 mg PO .@[id number] 11/11/23 11/11/23 History tablet,extended release 24 hr mirtazapine 15 mg tablet 22.5 mg PO .@8PM 11/11/23 11/11/23 History mirtazapine 30 mg tablet 30 mg PO .@900PM 11/11/23 11/11/23 History multivitamin 1 tab PO .@830AM 11/11/23 11/11/23 History pantoprazole 40 mg tablet,delayed 40 mg PO .@[id number] 11/11/23 11/11/23 History release potassium chloride 10 mEq 10 meq PO .@830AM 11/11/23 11/11/23 History capsule,extended release quetiapine 100 mg tablet 100 mg PO .@8PM 11/11/23 11/11/23 History quetiapine 25 mg tablet 50 mg PO .@830AM 11/11/23 11/11/23 History risperidone 0.5 mg tablet 0.5 mg PO .@830AM 11/11/23 11/11/23 History sennosides 8.6 mg tablet (senna) 17.2 mg PO .@830AM 11/11/23 11/11/23 History sucralfate 100 mg/mL oral 10 ml PO .@8AM,1230,530,8PM 11/11/23 11/11/23 History suspension (Carafate) thiamine HCl (vitamin B1) 100 mg 200 mg PO .@830AM 11/11/23 11/11/23 History tablet venlafaxine 150 mg 150 mg PO .@8PM 11/11/23 11/11/23 History capsule,extended release 24 hr venlafaxine 75 mg capsule,extended 75 mg PO .@8PM 11/11/23 11/11/23 History release 24 hr 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[facility] [place] for 4 mon summer [address] GONZALEZ & INFECTIOUS DISEASE IBS (irritable bowel syndrome) Stable History of COVID-12 January 2021 > MNMN, not hospitalized, fever, ear pain- did give infusion in ER No current issues Dyslipidemia Cirrhosis of liver FOLLOWS W/ [facility] Stable currently Depression Anxiety Diabetes mellitus, type 2 IDDM Glucose fluctuates - since Covid in December 2020 Follows with endocrinology Insomnia Kidney stones FOLLOWS WITH DR FUCHS No current issues - monitoring currently Hypertension Hydronephrosis due to obstruction of ureter Surgical History Hx of left cataract extraction History of endoscopy Status post Dupuytren's fasciectomy Hx of surgical amputation of finger left pinky History of cystoscopy WITH STENTS AND STONE BASKETING History of lithotripsy History of total hip arthroplasty LEFT Hx of colonoscopy Hx of wisdom tooth extraction History of tonsillectomy and adenoidectomy Hx of total hysterectomy GERALD WITH BSO Hx of tubal ligation Hx laparoscopic cholecystectomy Family History Father , age 75 Family history of diabetes mellitus Coronary heart disease Brother Family history of diabetes mellitus Mother , age 67 Family history of diabetes mellitus Heart disease Hypertension Myocardial infarction Grandfather (Paternal) Family history of diabetes mellitus Grandmother (Paternal) Family history of diabetes mellitus Denies family history of Ovarian cancer Prostate cancer Breast cancer Colorectal cancer Social History Smoking Status: Unknown if ever smoked Tobacco Type: Cigarettes Second Hand Exposure: No; Do You Dip or Chew Tobacco: No; Hx Alcohol Use: No Hx Substance Use: No Preferred Language: Greenlandic Communication Ability: Effective Visual Impairment: No Limitations Hearing Ability: Normal Lamination Assembler Required: No Beliefs That Will Affect Care: None marital status: Current Living Situation: Intermediate Current Living Situation Comment: alone current occupational status: employed and disabled current occupation: [employer] does have disability for diabetes- insurance helps How many Children do You have: 2 Feels Safe at Home: Yes Childhood Exposure to Second-Hand Smoke: No Diet: diabetic caffeine: Yes during the past year weight has: increased > 10 lbs Dental Care, Regularly: No Physical Activity Frequency: Does not Exercise Seatbelt Use: always Sunscreen Use: Yes Gender Identity: Female Assistive Devices: None Physical Exam Physical Exam: General: Somnolent. Arouses to sternal rub and opens eyes briefly before falling back asleep, does not give meaningful information and does not follow commands at bedside. Withdraws to noxious stimuli bilateral HEENT: Atraumatic, normocephalic. Mucous membranes dry. Pupils equal and reactive to light. Pupils are not pinpoint Pulm: Diminished but grossly clear and without wheezing. Symmetrical chest rise. No increased work of breathing. No respiratory distress. Cardiac: Regular, tachycardic radial pulses intact and symmetrical. Abdominal: nondistended, soft. BS present. Extremities: Without pitting edema. Strength/sensation testing limited by mental status, does not withdraw to noxious stimuli in thumb bilaterally. Results & Data Results & Data Vital Signs (Past 12 Hours) Vital Signs Temp Pulse Resp BP Pulse Ox O2 Del Method 11/11/23 11:00 120 H 18 147/82 H 97 11/11/23 10:00 113 H 23 142/92 H 98 11/11/23 09:30 111 H 20 134/84 98 11/11/23 09:14 144/88 H 11/11/23 09:14 144/88 H 11/11/23 09:14 112 H 14 98 11/11/23 09:07 113 H 21 146/90 H 98 11/11/23 08:45 117 H 11/11/23 08:25 36.7 C 118 H 18 116/78 100 Room Air PG Care Time/CCT Total # of Minutes Spent Total Time Spent with Patient: Total time spent is greater than 50% in coordination of care (as documented) at patient's floor/unit and/or counseling patient: Coding Level of Care Code 24551 INT INP/OBS CARE 3/75MIN Diagnoses Metabolic encephalopathy G93.41 UTI (urinary tract infection) N39.0 Uncontrolled type 2 diabetes mellitus with hyperglycemia, with long-term current use of insulin E11.65; Z79.4 Anemia D62 Anemia type: other cause Other causes of anemia: acute posthemorrhagic 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 Paroxysmal A-fib I48.0 Hypertriglyceridemia E78.1 History of pulmonary embolus (PE) Z86.711 Cryptococcal meningitis B45.1 Hepatic cirrhosis, unspecified hepatic cirrhosis type, unspecified whether ascites present K74.60 Ascites presence: unspecified Hepatic cirrhosis type: unspecified hepatic cirrhosis (4) Anemia Anemia type: other cause Other causes of anemia: acute posthemorrhagic Qualified Code(s): D62 - Acute posthemorrhagic anemia (10) Cirrhosis of liver Ascites presence: unspecified Hepatic cirrhosis type: unspecified hepatic cirrhosis Qualified Code(s): K74.60 - Unspecified cirrhosis of liver
[2023-11-11] MEDS: OPTIRAY 320 500ml IV ONE (12:06)
--- NOTE | 2023-11-11 12:11 | Electrocardiogram Report ---
Test Reason : Blood Pressure : / mmHG Vent. Rate : 117 BPM Atrial Rate : 117 BPM P-R Int : 124 ms QRS Dur : 104 ms QT Int : 354 ms P-R-T Axes : 043 -41 106 degrees QTc Int : 493 ms Sinus tachycardia Left axis deviation Incomplete right bundle branch block Abnormal ECG When compared with ECG of 30-AUG-2023 13:40, Vent. rate has increased BY 41 BPM T wave inversion now evident in Lateral leads Confirmed by Joe Seaman ([id number]) on 11/11/2023 12:11:00 PM Referred By: REFERRED SELF Confirmed By:Joe Seaman
--- NOTE | 2023-11-11 12:25 | CT Scan Report ---
CT OF THE ABDOMEN AND PELVIS WITH CONTRAST CLINICAL HISTORY: Abdominal pain. Sepsis. COMPARISON STUDY: CT of the abdomen and pelvis June 15, 2023. KUB August 17, 2023. TECHNIQUE: Following IV administration of 91 mL of Optiray, axial images of the abdomen and pelvis we re obtained from the lung bases to the proximal femurs. Images were reviewed in the axial, sagittal, and coronal planes. IV contrast was administered without complication. Automated exposure control wa s utilized for the study. A dose lowering technique was utilized adhering to the principles of ALARA . CT DOSE: 1005.08 mGy.cm FINDINGS: Lung bases are unremarkable. No pneumatosis, free air or portal venous gas is present. The liver is cirrhotic. No hepatic lesions are identified on the venous phase exam. Main, left and right portal veins are patent. There is no biliary ductal dilatation status post cholecystectomy. A small c alcification within the pancreas is present. There is no peripancreatic infiltration. Spleen, adrenal glands and left kidney are unremarkable. Bladder is moderately distended. No ureteral calculi. Sever al calculi within the lower pole of the right kidney measure up to 5 mm. The appendix is normal. Demetris kristen and wall thickness of small and large bowel are normal. There is trace fluid within the pelvis. T here is no lymphadenopathy. No fluid collections are present. Left hip arthroplasty is intact. There are no acute fractures. Possible avascular necrosis of the right femoral head without collapse. There is moderate plaque within the abdominal aorta. Branch vessels are patent. IMPRESSION: 1. No acute process within the abdomen or pelvis. 2. No bowel obstruction. No bowel wall thickening. Normal appendix. 3. Cirrhotic liver. Trace pelvic ascites. 4. Right nephrolithiasis. No ureteral calculi. No hydronephrosis. 5. Distended bladder. ACT 112: Negative or not required by law. Electronically signed by: Godwin Burden M.D. 11/11/2023 12:24 PM
[2023-11-11] MEDS: MAGNESIUM SULFATE / D5W 1 GM/100 ML BAG IV SCH ×2 (12:58→20:15)
[2023-11-11] MEDS: INSULIN ASPART PER UNIT CHARGE SC STA (13:01)
[2023-11-11] MEDS: LANTUS PER UNIT CHARGE SQ SCH (13:07)
[2023-11-11] MEDS: PLASMA-LYTE A 1,000 ML IV ONE (13:10)
[2023-11-11] MEDS: PLASMA-LYTE A 500 ML IV ONE (13:10)
[2023-11-11 14:49] LABS: BUN Creatinine Ratio 28.4 (10-20); Calcium 8.2 mg/dl (8.6-10.3); Creatinine Clr Calc Pharmacy 107.6 ml/min; Est GFR (African American) 107.7 ml/min; Est GFR (Non-African American) 92.9 ml/min; Potassium 3.8 mmol/L (3.5-5.1)
[2023-11-11] MEDS ORDERED: POLYETHYLENE (MIRALAX) 17 GM PACK PO PRN (15:05)
[2023-11-11] MEDS ORDERED: NON-FORMULARY MEDICATION (Insulin Aspart U-100 [Novolog Flexpen U-100 Insulin] 100 unit/mL SQ SCH (15:05)
[2023-11-11] MEDS ORDERED: POTASSIUM CHLORIDE 10 MEQ TABCR PO SCH (15:05)
[2023-11-11] MEDS: PLASMA-LYTE A 1,000 ML IV SCH (15:51)
--- OUTSIDE RECORDS SUMMARY | 2023-11-11 15:51 | External Medical Summary | Summary of Care ---
Author Name Unknown Organization [facility] Address [address] [facility] [place] [address] Phone [phone] Care Team Providers Care Gasser Machine Operator Name Role Phone Nori Temple MD Primary Care Provider [phone] Encounter Details Date Type Department Care Team (Late st Contact Info) Description 11/07/2023 Population Health External Data Unspecified Department Allergies Active Allergy Reactions Criticality Noted Date Comments Penicillins Hives 03/13/2022 Statins 11/26/2022 Acetaminophen 03/13/2022 Intolerance due to cirrhosis documented as of this encounter (statuses as of 11/07/2023) Medications Medication Sig Dispensed Refills Start Date [...] the morning. 30 Tablet 0 03/20/2022 Active Ondansetron HCl 4 MG Oral Tablet Take by mouth 1 Tablet every 8 hours as needed for Nausea. 20 Tablet 0 03/20/2022 Active Omnipod DASH Pods (Gen 4) USE 1 CARTIRIDGE SUBCUTANEOUSLY EVERY 48 HOURS 0 12/14/2021 Active Insulin Glargine 100 UNIT/ML Subcutaneous Solution 68 Units at bedtime. 0 Acti ve Furosemide 20 MG Oral Tablet (Lasix) Take [...] times a day. Using daily 0 Active Eliquis 5 MG Oral Tablet Take 1 Tablet by mouth in the morning and 1 Tablet before bedtime. 0 09/10/2023 Active Fluticasone Propionate 50 MCG/ACT Nasal Suspension (Flonase) Administer 2 Sprays into nostril in the morning. 0 09/02/2023 Active Insulin Aspart FlexPen 100 UNIT/ML Subcutaneous Solution Pen-injector 0 09/02/2023 Active Potassium Chloride ER 10 MEQ Oral Capsule Extended Release Take 1 Capsule by mouth in the morning. 0 09/10/2023 Active QUEtiapine Fumarate 100 MG Oral Tablet (SEROquel) Take 1 Tablet by mouth at bedtime. 0 09/10/2023 Active QUEtiapine Fumarate 25 MG Oral Tablet (SEROquel) Take 1 Tablet by mouth at bedtime. 0 09/02/2023 Active Sucralfate 1 GM/10ML Oral Suspension (Carafate) Take 10 mL by mouth in the morning and 10 mL at noon and 10 mL in the evening and 10 mL before bedtime. 0 09/02/2023 Active Nitrofurantoin Monohyd Macro 100 MG Oral Capsule (Macrobid) Take 1 Capsule by mouth in the morning and 1 Capsule before bedtime. 0 09/12/2023 Active Mupirocin 2 % External Ointment (Bactroban) Apply topically to affected area daily. 0 09/02/2023 Active Venlafaxine HCl ER 75 MG Oral Capsule Extended Release 24 Hour (Effexor XR) Take 1 Capsule by mouth at bedtime. 0 09/10/2023 Active Fluconazole 200 MG Oral Tablet (Diflucan) Take 2 Tablets by mouth in the morning. 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 Anemia 03/13/2022 Shortness of breath documented as of this encounter (statuses as of 11/07/2023) Immunizations No known immunizationsdocumented as of this encounter Social History Tobacco Use Types Packs/Day Years [...] as of this encounter Plan of Treatment Upcoming Encounters Date Type Department Care Team (Late st Contact Info) Description 03/14/2024 11:00 AM EDT Office Visit Infectious Disease [facility] [address] [place] [address] Clarice Huggins MD [address] [place] [address] Health Maintenance Due Date Last Done Comments Lipid Panel 1959 COVID-19 Vaccine (#1) 1959 Pneumococcal Vaccine: Pediatrics (0 to 5 Years) and At-Risk Patients (6 to 64 Years) (1 - PCV) 1965 Depression Screening 1971 HIV Screening 1974 Albumin/Creatinine Ratio 1977 Diabetic Foot Exam 1977 Hepatitis C Screening 1977 DTaP,Tdap,and Td Vaccines (1 - Tdap) 1978 Mammogram 1999 Cologuard 2004 Colonoscopy 2004 Colorectal Cancer Screening 2004 Fecal Occult Blood Test 2004 Sigmoidoscopy 2004 Zoster Vaccines (1 of 2) 2009 Hepatitis B (1 of 3 - Risk 3-dose series) 2019 HbA1c 09/13/2022 03/14/2022 Influenza Vaccine (FLU shot) (#1) 2023 Diabetic Eye Exam 10/18/2023 10/18/2022, , 10/02/2021 GFR 12/07/2023 12/06/2022, 03/26, 03/23/2022, Additional history [...] and were consensually agreed upon. Care Teams Gasser Machine Operator Relationship Specialty Start Date End Date Nori Temple MD [address] [facility] [place] [id number] PCP - General Family Medicine 09/09/23 documented as of this encounter
[2023-11-11 17:29] LABS: Hematocrit (blood only) 26.1 % (37.0-47.0); Hemoglobin 8.6 g/dl (12.0-16.0)
[2023-11-11] MEDS: INSULIN ASPART PER UNIT CHARGE SC SCH (17:55)
[2023-11-11] MEDS: MIRTAZAPINE TAB 15 MG TAB PO SCH (20:26)
[2023-11-11] MEDS: QUEtiapine FUMARATE 100 MG TABLET PO SCH (20:26)
[2023-11-11] MEDS: VENLAFAXINE HCL XR 150 MG CAPXR PO SCH (20:31)
[2023-11-11] MEDS: VENLAFAXINE HCL XR 75 MG CAPXR PO SCH (20:32)
[2023-11-11] MEDS: PANTOprazole 40 MG TAB PO SCH (20:32)
[2023-11-11] MEDS: SUCRALFATE 1 GM/10 ML UDC PO SCH (20:32)
[2023-11-11] MEDS: METOPROLOL SUCC 25MG EXT REL TAB PO SCH (20:32)
[2023-11-11] MEDS: MAGNESIUM OXIDE 400 MG TAB PO SCH (20:32)
[2023-11-11] MEDS: APIXABAN 5 MG TABLET PO SCH (20:32)
[2023-11-11] MEDS: CEFEPIME 2,000 MG in SYRINGE 0 ML IV SCH (20:33)
[2023-11-12 06:27] LABS: Basophils # (auto) 0.03 K/uL (0.00-0.20); Basophils % (auto) 0.6 %; Eosinophils # (auto) 0.43 K/uL (0.00-0.50); Eosinophils % (auto) 8.5 %; Hematocrit (blood only) 25.8 % (37.0-47.0); Hemoglobin 8.6 g/dl (12.0-16.0); Immature Granulocytes # (auto) 0.01 K/uL (0.01-0.20); Immature Granulocytes % (auto) 0.2 %; Lymphocytes # (auto) 1.39 K/uL (1.20-3.40); Lymphocytes % (auto) 27.5 %; Mean Corpuscular Hemoglobin 27.7 pg (25.0-34.0); Mean Corpuscular Hgb Conc 33.3 g/dL (32.0-36.0); Mean Platelet Volume 10.7 fL (9.4-12.4); Monocytes # (auto) 0.39 K/uL (0.11-0.59); Monocytes % (auto) 7.7 %; Neutrophils % (auto) 55.5 %; Platelet Count 104 K/uL (130-400); RDW Coefficient of Variation 16.7 % (11.5-14.5); RDW Standard Deviation 50.3 fL (36.4-46.3); Red Blood Count 3.11 M/uL (4.20-5.40); White Blood Count 5.05 K/ul (4.8-10.8)
[2023-11-12 06:51] LABS: Albumin Globulin Ratio 1.1 (0.9-2); Albumin Level 3.1 gm/dl (3.4-5.0); BUN Creatinine Ratio 21.7 (10-20); Bilirubin,Total 0.4 mg/dl (0.2-1.0); Calcium 7.8 mg/dl (8.6-10.3); Creatinine Clr Calc Pharmacy 81.8 ml/min; Est GFR (African American) 111.6 ml/min; Est GFR (Non-African American) 96.3 ml/min; Globulin 2.7 gm/dl (2.5-4.0); Potassium 3.3 mmol/L (3.5-5.1); Total Protein 5.8 gm/dl (6.0-8.3)
[2023-11-12 06:59] LABS: INR 1.1 (0.9-1.1); Partial Thromboplastin Time 27 Seconds (21-31); Prothrombin Time 12.4 Seconds (9.0-12.0)
[2023-11-12] MEDS: QUEtiapine FUMARATE 25 MG TABLET PO SCH (09:21)
[2023-11-12] MEDS: SENNA 8.6 MG TAB PO SCH (09:21)
[2023-11-12] MEDS: risperiDONE 0.5 MG TABLET PO SCH (09:22)
[2023-11-12] MEDS: THIAMINE HCL 100 MG TAB PO SCH (09:22)
[2023-11-12] MEDS: LACTULOSE SYRUP 20 GM/30 ML UDC PO SCH (09:23)
[2023-11-12] MEDS: FLUCONAZOLE 100 MG TAB PO SCH (09:23)
--- NOTE | 2023-11-12 10:17 | Hospitalist Progress Note ---
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 #Metabolic Encephalopathy in the setting of UTI, dehydration: Patient initially presented with AMS, work up suggestive of UTI + dehydration as underlying causes. 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 Vitals noted, in general she is awake and in no distress. HEENT normocephalic atraumatic mucous membranes moist. Breathing unlabored no accessory muscle use good effort. Skin shows no rashes no pallor or icterus. Delirium/metabolic encephalopathyappears to be related to urinary tract in fection and dehydration (dehydration either poor p.o. intake, hyperglycemic dehydration from diabetes, or both)continue antibiotics and IV fluids, supportive care. PT/OT eval and treat. Anticoagulated otherwise as above Subjective 63-year-old female with a past medical history of anxiety/depression, cirrhosis, cryptococcal meningitis, A-fib, DM 2, hypertension, DVT recently admitted from 08/10 - 09/02 with intermittent hallucinations, generalized weakness, and placement evaluation who presents with AMS. Patient evaluated at bedside this morning, is oriented to self and place, states that she can't really recall the reason she is hospitalized, notes that she generally doesn't remember the past couple days. Denies fever/chills, denies abdominal pain, denies urinary sx. Review of Systems Review of Systems: as per HPI Physical Exam Constitutional: WD/WN, vitals as above Neck: trachea midline, no thyromegaly Respiratory: normal respiratory effort, lungs clear to auscultation Cardiovascular: RRR, no murmur, no edema Gastrointestinal (Abdomen): normal bowel sounds, soft, nontender, no hepatosplenomegaly Skin: no rashes, warm and dry Neurologic: AOx2, able to hold conversation but has difficulty with recall. No focal deficits appreciated. Results & Data Results & Data Vital Signs (Past 12 Hours) Vital Signs Temp Pulse Pulse Pulse Resp BP Pulse Ox 11/12/23 08:20 36.8 C 91 H 18 159/92 H 95 11/12/23 07:46 92 H 11/12/23 04:01 102 H 11/12/23 03:57 36.9 C 91 H 16 135/82 95 11/12/23 00:34 36.8 C 95 H 16 160/95 H 97 11/11/23 23:28 36.8 C 92 H 16 148/84 H 96 O2 Del Method 11/12/23 08:20 Room Air 11/12/23 07:46 11/12/23 04:01 11/12/23 03:57 Room Air 11/12/23 00:34 Room Air 11/11/23 23:28 Room Air Resident Activity Tracking Resident Involvement: Resident Care Provided Care Provided: Adult Hospital Medicine (4) Anemia Anemia type: other cause Other causes of anemia: acute posthemorrhagic Qualified Code(s): D62 - Acute posthemorrhagic anemia (10) Cirrhosis of liver Ascites presence: unspecified Hepatic cirrhosis type: unspecified hepatic cirrhosis Qualified Code(s): K74.60 - Unspecified cirrhosis of liver
[2023-11-12] MEDS: ACETAMINOPHEN 325 MG TAB PO PRN (12:26)
--- NOTE | 2023-11-12 14:39 | Billing Data ---
Date of Service November 12, 2023 Coding Level of Care Code 17506 SUB INP/OBS CARE
[2023-11-12] MEDS: PLASMA-LYTE A 1,000 ML IV SCH (16:13)
[2023-11-13 06:15] LABS: Basophils # (auto) 0.02 K/uL (0.00-0.20); Basophils % (auto) 0.5 %; Eosinophils # (auto) 0.31 K/uL (0.00-0.50); Eosinophils % (auto) 7.7 %; Hematocrit (blood only) 26.1 % (37.0-47.0); Hemoglobin 8.4 g/dl (12.0-16.0); Immature Granulocytes # (auto) 0.01 K/uL (0.01-0.20); Immature Granulocytes % (auto) 0.2 %; Lymphocytes # (auto) 1.33 K/uL (1.20-3.40); Lymphocytes % (auto) 33.2 %; Mean Corpuscular Hemoglobin 27.4 pg (25.0-34.0); Mean Corpuscular Hgb Conc 32.2 g/dL (32.0-36.0); Monocytes # (auto) 0.31 K/uL (0.11-0.59); Monocytes % (auto) 7.7 %; Neutrophils # (auto) 2.03 K/uL (1.40-6.50); Neutrophils % (auto) 50.7 %; Platelet Count 109 K/uL (130-400); RDW Coefficient of Variation 16.2 % (11.5-14.5); RDW Standard Deviation 50.4 fL (36.4-46.3); Red Blood Count 3.07 M/uL (4.20-5.40); White Blood Count 4.01 K/ul (4.8-10.8)
[2023-11-13 06:26] LABS: Albumin Globulin Ratio 1.2 (0.9-2); Albumin Level 2.9 gm/dl (3.4-5.0); BUN Creatinine Ratio 21.4 (10-20); Bilirubin,Total 0.3 mg/dl (0.2-1.0); Calcium 7.7 mg/dl (8.6-10.3); Creatinine Clr Calc Pharmacy 70.1 ml/min; Est GFR (African American) 106.1 ml/min; Est GFR (Non-African American) 91.6 ml/min; Globulin 2.4 gm/dl (2.5-4.0); Potassium 3.2 mmol/L (3.5-5.1); Total Protein 5.3 gm/dl (6.0-8.3)
--- NOTE | 2023-11-13 09:19 | Hospitalist Progress Note ---
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 #Metabolic Encephalopathy in the setting of UTI, dehydration: Patient initially presented with AMS, work up suggestive of UTI + dehydration as underlying causes. 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 No new complaints. Eating lunch. vitals noted, in general she is awake and alert pleasant no distress. HEENT normocephalic atraumatic mucous membranes moist. Breathing unlabored no accessory muscle use good effort. Skin shows no rashes no pallor or icterus. Neuro without focal deficits. Delirium/metabolic encephalopathyappears to be related to urinary tract infection and dehydration (dehydration either poor p.o. intake, hyperglycemic dehydration from diabetes, or both) Switch antibiotics to Keflex, encourage p.o. fluid intake. Last A1c was actually 6.5so probably would focus on increased p.o. fluid intake rather than considering osmotic diuresis from hyperglycemia as the culprit (she did note that she probably drinks 40 ounces a daydiscussed escalating to more like 6080) Anticoagulated otherwise as above asked her to ambulate today, ensure she is showing improvement, probably return to personal care tomorrow, anticipating moving in with family soon. Subjective 63-year-old female with a past medical history of anxiety/depression, cirrhosis, cryptococcal meningitis, A-fib, DM 2, hypertension, DVT recently admitted from 08/10 - 09/02 with intermittent hallucinations, generalized weakness, and placement evaluation who presents with AMS. Patient evaluated at bedside this morning, is oriented to self and place, states that she overall feels more lucid but notes that she doesn't think we are in 2023 when provided with the date. Denies fever/chills, denies abdominal pain, denies urinary sx. Review of Systems Review of Systems: as per HPI Physical Exam Constitutional: WD/WN, vitals as above Neck: trachea midline, no thyromegaly Respiratory: normal respiratory effort, lungs clear to auscultation Cardiovascular: RRR, no murmur, no edema Gastrointestinal (Abdomen): normal bowel sounds, soft, nontender, no hepatosplenomegaly Skin: no rashes, warm and dry Psychiatric: AOx2, mood affect congruence Results & Data Results & Data Vital Signs (Past 12 Hours) Vital Signs Temp Pulse Pulse Pulse Resp BP Pulse Ox 11/13/23 08:01 36.3 C L 87 16 146/83 H 95 11/13/23 07:48 87 11/13/23 03:03 36.5 C 98 H 18 115/61 95 11/12/23 23:04 108 H 11/12/23 22:42 36.8 C 100 H 18 133/82 97 O2 Del Method 11/13/23 08:01 Room Air 11/13/23 07:48 11/13/23 03:03 Room Air 11/12/23 23:04 11/12/23 22:42 Room Air Resident Activity Tracking Resident Involvement: Resident Care Provided Care Provided: Adult Hospital Medicine (4) Anemia Anemia type: other cause Other causes of anemia: acute posthemorrhagic Qualified Code(s): D62 - Acute posthemorrhagic anemia (10) Cirrhosis of liver Ascites presence: unspecified Hepatic cirrhosis type: unspecified hepatic cirrhosis Qualified Code(s): K74.60 - Unspecified cirrhosis of liver
[2023-11-13] MEDS: POTASSIUM CHLORIDE CRTAB 20 MEQ TABCR PO STA (11:32)
--- NOTE | 2023-11-13 14:57 | Billing Data ---
Date of Service November 13, 2023 Coding Level of Care Code 41897 SUB INP/OBS CARE
[2023-11-13] MEDS: cephALEXin 500 MG CAP PO SCH (20:55)
[2023-11-14 06:57] LABS: Basophils # (auto) 0.02 K/uL (0.00-0.20); Basophils % (auto) 0.4 %; Eosinophils # (auto) 0.46 K/uL (0.00-0.50); Eosinophils % (auto) 9.5 %; Hematocrit (blood only) 26.9 % (37.0-47.0); Immature Granulocytes # (auto) 0.02 K/uL (0.01-0.20); Immature Granulocytes % (auto) 0.4 %; Lymphocytes # (auto) 1.33 K/uL (1.20-3.40); Lymphocytes % (auto) 27.4 %; Mean Corpuscular Hgb Conc 33.5 g/dL (32.0-36.0); Mean Corpuscular Volume 83.8 fL (80.0-100.0); Mean Platelet Volume 10.4 fL (9.4-12.4); Monocytes # (auto) 0.36 K/uL (0.11-0.59); Monocytes % (auto) 7.4 %; Neutrophils # (auto) 2.67 K/uL (1.40-6.50); Neutrophils % (auto) 54.9 %; Platelet Count 127 K/uL (130-400); RDW Coefficient of Variation 15.8 % (11.5-14.5); RDW Standard Deviation 48.1 fL (36.4-46.3); Red Blood Count 3.21 M/uL (4.20-5.40); White Blood Count 4.86 K/ul (4.8-10.8)
[2023-11-14 07:24] LABS: Albumin Globulin Ratio 1.2 (0.9-2); BUN Creatinine Ratio 24.3 (10-20); Bilirubin,Total 0.3 mg/dl (0.2-1.0); Calcium 8.3 mg/dl (8.6-10.3); Creatinine Clr Calc Pharmacy 66.3 ml/min; Est GFR (African American) 99.2 ml/min; Est GFR (Non-African American) 85.6 ml/min; Globulin 2.6 gm/dl (2.5-4.0); Potassium 3.2 mmol/L (3.5-5.1); Total Protein 5.6 gm/dl (6.0-8.3)
--- NOTE | 2023-11-14 12:08 | Hospitalist Progress Note ---
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 #Metabolic Encephalopathy in the setting of UTI, dehydration: Patient initially presented with AMS, work up suggestive of UTI + dehydration as underlying causes. - Still oriented to person and place but not to time - Urine cx significant for pansensitive staph aureus - s/p 3 days of Cefepime Changed to Keflex 500mg bid. Continue for 4 days to complete 7 days of therapy. - Blood cxs negative #T2DM: Hyperglycemic at time of presentation - Basal bolus insulin - Hgb A1c ordered given hyperglycemic state on admission -- pending - Since her blood sugar has been stable since her admission, possible her home insulin regimen is not sufficient to achieve glycemic control. 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) until the end of the month (financial limitations), then go to her sister's home. Full Code FEN/GI: Plasmalyte, DM2 VTE ppx: Eliquis Admission and Anticipated Discharge Date Admission Date: November 11, 2023 Supervising Physician Co-Signing Physician Notes I personally examined the patient and verified fish points of history and exam, discussed case, and agree with decision making and plan documented by Dr. Melgar. AMS improving with UTI treatment. Monitoring BGs closely, A1c now 7.9%, will optimize insulin regimen. Anticipate discharge back to [facility] for next couple weeks, then patient plans on moving in with sister. 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 Patient evaluated at bedside this morning, is oriented to person and place but not to time, and is in no acute distress. She refers feeling better today. Denies fevers, chills, SOB, chest pain, or any other symptom. Review of Systems Review of Systems: as per HPI Physical Exam Physical Exam: GENERAL: awake alert and oriented to person and place, afebrile, no acute distress HEAD: AT, NC EYES: EOM intact THROAT: normal to visual inspection CARDIO: no rubs, murmur, gallops RESPIRATORY: CTA, normal respiratory effort, no respiratory distress GI: non-distended, non-tender : positive Estrella draining clear urine SKIN: no rashes Results & Data Results & Data Vital Signs (Past 12 Hours) Vital Signs Temp Pulse Pulse Resp BP Pulse Ox O2 Del Method 11/14/23 11:09 36.7 C 79 16 128/79 96 Room Air 11/14/23 08:00 82 11/14/23 07:35 37.1 C 80 16 132/76 96 Room Air 11/14/23 04:00 36.8 C 81 18 133/82 95 Room Air Resident Supervision Co-Signing Physician Notes I independently reviewed and examined patient case in concert with Dr. Melgar. Suspect altered mental status due to urinary tract infection which seems to be greatly improving. Patient is alert and oriented x 4 and is not currently complaining of any neurologic symptoms. Patient will need to complete a full 7- day course of antibiotics for complicated urinary tract infection. Estrella catheter to be removed in morning for voiding trial. Patient medically stable for discharge. A1c of 7.9% and patient reports good adherence to insulin use. May have to consider increasing insulin dose for better glycemic control. Per AAFP, current A1c goal is less than 7%. Patient may return back to [facility] when transportation becomes available. (4) Anemia Anemia type: other cause Other causes of anemia: acute posthemorrhagic Qualified Code(s): D62 - Acute posthemorrhagic anemia (10) Cirrhosis of liver Ascites presence: unspecified Hepatic cirrhosis type: unspecified hepatic cirrhosis Qualified Code(s): K74.60 - Unspecified cirrhosis of liver
[2023-11-14 14:05] LABS: Estimated Average Glucose 180 mg/dl; Hemoglobin A1C 7.9 % (4.5-5.6)
[2023-11-14] MEDS: POTASSIUM CHLORIDE CRTAB 20 MEQ TABCR PO SCH (21:02)
--- NOTE | 2023-11-15 10:35 | Discharge Summary ---
Date of Service November 15, 2023 Admission HPI Per Admitting Provider Sudha is a 63-year-old female with a past medical history of anxiety/depression, cirrhosis, cryptococcal meningitis, A-fib, DM 2, hypertension, DVT recently admitted from 08/10 - 09/02 with intermittent hallucinations, generalized weakness, and placement evaluation who presents with AMS. Per Patient/Family: History is limited due to extreme somnolence and patient awakens only transiently to sternal rub. Collateral is collected from family at bedside. In the last several days Lynne has been in her normal state of health other than the development of a few days of very loose diarrhea, they are not sure how many but at least a couple which developed after antibiotics for her UTI. She was doing okay up until last night at 8 PM when she said she felt like she was getting sick and was fatigued. Had complained of some abdominal discomfort at that time. She had a mechanical fall without dizziness/syncope/presyncope without loss of consciousness or head strike. This morning she was very difficult to awaken and was referred to the ER for further evaluation and care. Lungs are diminished but grossly clear. Abdomen is soft, unable to adequately assess for pain due to mental status. Skin is warm and dry. Heart rate is tachycardic without murmurs rubs or gallops. Family is not sure if family received any medications this morning, do not think there have been any changes to her psychotropic medications. No opioid ingestions. Former tobacco use, no recent alcohol or tobacco use per family. Full code. Per ER Signout/Review: Recent hospitalization 2 months ago; at that time she was evaluated for intermittent hallucinations which have occurred intermittently since cryptococcal meningitis in 2021. She did not know show any signs of recurrent infection. MRI did show cerebellar enhancement suspicious for scar tissue, residual low-grade infection was thought to be unlikely and she had a lumbar puncture 06/2023 which was negative. Psychiatry was consulted and patient had improvement with Seroquel 100 mg at bedtime and 25 mg every morning. She was noted to have superimposed UTI with potential worsening of encephalopathy, and did experience hospital delirium. Thiamine was repleted. Patient was to have outpatient follow-up with Dr. Dailey neurology. She remains on fluconazole 400 mg/day prophylaxis with stable LFTs at that time. She represents to the emergency department 11/11/2022 with confusion. Reported mechanical fall day prior, patient's somnolent morning of admission and was referred to the ER after nursing facility contacted on-call physician. BSG was 400. On ER evaluation she had no leukocytosis, hemoglobin was 8.7 with baseline of 9.211.5 following transfusion for level of 6.6 08/10/2023. VBG 7.3 /58/18 consistent with metabolic acidosis and incompletely compensating respiratory acidosis. Sodium normal Anion gap 12 Creatinine 0.81 BSG 388 Creatinine 0.81, at normal baseline Lactate 6.7 Phosphorus 1.3 Ammonia pending, recollect due to hemolysis BNP wnl Procalcitonin wnl TSH wnl UA infected appearing with leukocytes, leukocyte esterase, nitrites and no epis. CThead shows right maxillary sinus mucosal thickening suspicious for acute sinusitis otherwise no acute intracranial findings and no evidence of intracranial hemorrhage. Chest x-ray is without acute findings and no evidence of pulmonary edema. History of prior UTIs with MSSA, pansensitive E. coli, and low colony counts of Rocephin resistant Citrobacter Admission Exam Per Admitting Provider General: Somnolent. Arouses to sternal rub and opens eyes briefly before falling back asleep, does not give meaningful information and does not follow commands at bedside. Withdraws to noxious stimuli bilateral HEENT: Atraumatic, normocephalic. Mucous membranes dry. Pupils equal and reactive to light. Pupils are not pinpoint Pulm: Diminished but grossly clear and without wheezing. Symmetrical chest rise. No increased work of breathing. No respiratory distress. Cardiac: Regular, tachycardic radial pulses intact and symmetrical. Abdominal: nondistended, soft. BS present. Extremities: Without pitting edema. Strength/sensation testing limited by mental status, does not withdraw to noxious stimuli in thumb bilaterally. Principal Diagnosis Complicated UTI Discharge Exam GENERAL: awake alert and oriented to person and place, afebrile, no acute distress HEAD: AT, NC EYES: EOM intact THROAT: normal to visual inspection CARDIO: no rubs, murmur, gallops RESPIRATORY: CTA, normal respiratory effort, no respiratory distress GI: non-distended, non-tender : negative Estrella SKIN: no rashes Discharge Data Allergies Allergy/AdvReac Type Severity Reaction Status Date / Time Penicillins Allergy Intermediate Hives Verified 10/25/23 14:06 atorvastatin Allergy Unknown CAN'T Verified 10/25/23 14:06 REMEMBER/? RAISED LIVER LEVELS gemfibrozil [From Lopid] Allergy Unknown CAN'T Verified 10/25/23 14:06 REMEMBER/ ? RAISED LIVER LEVELS rosuvastatin AdvReac Intermediate Muscle Pain Verified 10/25/23 14:06 acetaminophen [From Tylenol] AdvReac Unknown CAN NOT Verified 10/25/23 14:06 TAKE D/T LIVER ISSUES ibuprofen AdvReac Unknown liver Verified 10/25/23 14:06 issues Consultations 11/11/23 11:13 ED Decision to Admit Stat Ordered Studies 11/11/23 08:47 CT head/brain wo con Stat 11/11/23 11:22 CT abd pelvis IV con only Stat Hospital Course (1) Metabolic encephalopathy: (2) UTI (urinary tract infection): (3) Uncontrolled type 2 diabetes mellitus with hyperglycemia, with long-term current use of insulin: (4) Anemia: (5) 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 Her AMS was believed to be related to a combination of a UTI noted on admission labs with cultures growing pansensitive S. Aureus, as well as dehydration (i.e. metabolic encephalopathy). Blood cultures have remained negative throughout this time. She completed 3 days of Cefepime and is currently on her 2nd day of Keflex (total 5 days of therapy with goal of 7 days) and is currently showing improvement with regards to her cognition. With regards to her anemia, her hemoglobin has remained stable at ~9, and she has not c/o lightheadedness or dizziness with standing. At the time of admission, she was noted to have elevated blood glucose at 388, and her hemoglobin A1c was 7.9%. Her blood sugar while in the hospital has remained within goal range, which indicates that the patient likely has suboptimal insulin home regimen that is not controlling her blood sugar adequately. For this reason, we advise adjustment of her regimen and follow up to ensure more adequate control. She had episodes of sundowning during her admission.Patient can continue home Seroquel an Risperidal due to patient's psychotic disorder due to another medical condition with hallucinations. Patient found to be stable and fit for discharge to [facility] ([facility] where she will stay until the end of the month due to financial limitations, then will go to her sister's home where she will be cared for by family members (sister and niece who is a [employer]). Total Time Total Time Spent Total Time Spent (In Minutes): 34 Discharge Plan Discharge Items Patient Disposition: Personal [facility] Reason For Visit: HYPERGLYCEMIA, AMS Discharge Diagnosis: complicated UTI Activity: Per Instructions section Non-emergency contact: Primary Care Provider Call non-emergency contact if: your symptoms worsen and your temperature is above 101 Follow-up/Referrals: Nori Temple MD [Primary Care Provider] - Diet: Carb Consistent or DM2 Addtl Attending Provider Instructions: You were admitted to the hospital due to confusion that was believed to be related to a combination of a urinary tract infection noted on your admission labs with dehydration (i.e. metabolic encephalopathy). We treated you with 3 days of an antibiotic called Cefepime and then changed it to Keflex, of which you are on your second day. These antibiotics are meant to treat your urinary tract infection, and should complete 2 more days of therapy to reach a total of 7 days. A prescription for this has been sent to your pharmacy. At the time of admission, you were noted to have a high blood sugar at 388, and your hemoglobin A1c was 7.9% which is above the goal for diabetic patients (usually want it < 7%). Because your blood sugar has been within the goal range while in the hospital, we suspect that this may indicate that your home insulin regimen is not controlling your blood sugar very well, and would therefore need to be changed to get better control. We suggest you discuss this with your primary care provider once you are discharged. We find you to be stable and fit for discharge back to [facility] until the end of the month, after which you would be going to your sister's apartment. A discharge summary will be sent to your primary care physician to ensure continuity of care. Please bring this discharge summary with you to your next office appointment so that your provider can review it at that time. Follow-up appointments: Make a follow-up appointment with your PCP within the next week. It is very important that you follow up with them shortly after discharge from the hospital. Keep all your follow-up appointments as already scheduled. If you cannot make an appointment, notify your provider. Medications: Your medication list has been reviewed and reconciled upon discharge to ensure accuracy and continuity of care. An updated list of all your medications is included with your hospital discharge paperwork. Please review this list closely, and make note of any changes. We sent a new medication called Keflex to your pharmacy. Take Keflex 500mg by mouth two times a day (every 12 hours) for 2 days. If you have any issues filling these prescriptions, please call [phone] and ask to leave a message for Dr. Melgar. Take your medications as instructed; do not skip a dose of your medicines. Make sure all of your doctors know every medicine you are taking (including [id number] medicines, vitamins, and supplements). Call your primary care provider before taking any new medicines (including over- the-counter medicines, vitamins, and supplements), because some of these may interact with your current medications, or may make your symptoms worse. Tell your primary care provider if you cannot afford your medications. CONTACT YOUR PRIMARY CARE PROVIDER if you experience any of the following: Worsening of symptoms Fever, chills, or fatigue Difficulty following your treatment plan, or difficulty taking medications CALL 911 OR GO TO THE EMERGENCY DEPARTMENT if you experience any of the following: Sudden, severe abdominal pain or nausea/vomiting Severe chest pain, or chest pain that radiates (moves) to your jaw or arm Sudden, severe shortness of breath or difficulty breathing Thank you for allowing us to participate in your care. Pending Studies at Discharge: No Stand-Alone Forms: My [employer], Smoking Cessation Skilled Items Patient informed of condition?: Yes DNR: No Discharge Level of Care: Skilled Communicable Disease: No Discharge Prognosis: Stable Lines: None Urinary Catheter: No Medications and DC Order Prescriptions: New cephalexin 500 mg Capsule 500 mg PO BID 2 Days Qty: 4 0RF Continued insulin aspart U-100 [Novolog FlexPen U-100 Insulin] 100 unit/mL (3 mL) insulin pen 1 sliding scale dose subcut USEASDIRECTD Qty: 15 0RF Rx Instructions: For MEAL-TIME use only; do not give at bedtime. 151- 200 1U; 201- 250 2U; 251- 300 3U; 301- 350 4U; 351- 400 6U; >400 notify office (DME) pen needle, diabetic [BD Ultra-Fine Jody Pen Needle] 32 gauge x 5/32" needle See Rx Instructions miscellaneous .MEDSUPPLY Qty: 200 5RF Rx Instructions: Inject up to 4x a day diclofenac sodium [Arthritis Pain (diclofenac)] 1 % gel 4 g topical QID PRN (Reason: arthritis) Qty: 100 5RF Rx Instructions: apply to neck and shoulders prn (DME) blood-glucose meter [Contour Next Glucose Meter] Kit See Rx Instructions .Route Qty: 1 0RF Rx Instructions: As directed (DME) lancets [Lancets,Ultra Thin] Misc See Rx Instructions .Route Qty: 200 11RF Rx Instructions: test sugars up to 6 times daily promethazine 12.5 mg tablet 12.5 mg PO TID PRN (Reason: nausea and vomiting) Qty: 10 0RF (DME) Contour Next Test Strips Strip See Rx Instructions .ROUTE .MEDSUPPLY Qty: 300 11RF Rx Instructions: Test blood sugars up to 6 times a day furosemide 20 mg tablet 20 mg PO QAM PRN (Reason: volume overload or weight gain) Qty: 30 0RF Rx Instructions: for weight gain of more than 3 pounds over 1-2 days. betamethasone dipropionate 0.05 % lotion 1 applic topical TID PRN (Reason: skin irritation) Qty: 60 0RF Rx Instructions: avoid face/genitals sennosides [senna] 8.6 mg Tablet 17.2 mg PO .@830AM mirtazapine 30 mg Tablet 30 mg PO .@900PM risperidone 0.5 mg Tablet 0.5 mg PO .@830AM Rx Instructions: instructions say BID, Mar only has daily multivitamin tablet 1 tab PO .@830AM potassium chloride 10 mEq capsule, extended release 10 meq PO .@830AM venlafaxine 75 mg capsule,extended release 24hr 75 mg PO .@8PM Rx Instructions: TOTAL DAILY DOSE 225 MG (150mg + 75mg). fluconazole 200 mg tablet 400 mg PO .@830AM venlafaxine 150 mg capsule,extended release 24hr 150 mg PO .@8PM Rx Instructions: TOTAL DAILY DOSE 225 MG (150mg + 75mg) thiamine HCl (vitamin B1) 100 mg tablet 200 mg PO .@830AM quetiapine 100 mg tablet 100 mg PO .@8PM pantoprazole 40 mg tablet,delayed release (DR/EC) 40 mg PO .@[id number] metoprolol succinate 25 mg tablet extended release 24 hr 25 mg PO .@[id number] fluticasone propionate [Flonase Allergy Relief] 50 mcg/actuation spray,suspe nsion 2 spray intranasal .@830AM Rx Instructions: administer into each nostril insulin glargine [Lantus Solostar U-100 Insulin] 100 unit/mL (3 mL) insulin pen 5 unit subcut .@[id number] cholecalciferol (vitamin D3) 50 mcg (2,000 unit) capsule 2,000 unit PO .@830AM Mag 64 64 mg tablet,delayed release (DR/EC) 64 mg PO .@[id number] Zyrtec 10 mg capsule 10 mg PO .@830AM Eliquis 5 mg tablet 5 mg PO .@8AM8PM Discharge Orders: Discharge Order (Routine); Ordered 11/15/23 Ordered By: Ivett Melgar Admission Data Admit Date/Time: 11/11/23 12:30 Attending Provider: Juju Rodriguez Admit Provider: Christian Ricks Primary Care Provider: Nori Temple Other Providers: Christian Ricks Other Interventions: Discharge Summary Assessment (RN) Last Done: 11/15/23 14:06 Supervising Physician Co-Signing Physician Notes I personally examined the patient and verified fish points of history and exam, discussed case, and agree with decision making and plan documented by Dr. Melgar. Patient reports feeling well and denies any new symptoms. At present, she is medically stable for discharge back to [facility] [place]. Patient optimistic to move in with her sister next month, new home currently under construction. Advised her to complete antibiotics as prescribed. Encouraged to work to improve diabetic control. Patient understanding and all questions answered. Juju Rodriguez DO, MS Resident Supervision Co-Signing Physician Notes I personally examined and reviewed the patient's case with Dr. Melgar. Metabolic encephalopathy/delirium in the setting of urinary tract infection. Patient reports feeling better and denies any additional symptoms such as nausea or vomiting. She seems to be medically stable to be discharged back to [facility] [place]. This will be temporary until she moves in with her family in the next month or so which patient seems to be excited about. Patient is to complete 2 additional days of Keflex upon discharge. Follow-up with primary care provider within 1 week of discharge. Otherwise as above.
== END 2023-11-15 16:44 | disposition home or self-care (01) | DRG 689 ==
LOC: ED 08:14 → EDINP 12:30 → SUATTDRO 12:30 → 2N 15:06
DX: Z86.61 Personal history of infections of the central nervous system; R33.9 Retention of urine, unspecified; E51.9 Thiamine deficiency, unspecified; Z86.718 Personal history of other venous thrombosis and embolism; K70.30 Alcoholic cirrhosis of liver without ascites; Z83.3 Family history of diabetes mellitus; G93.41 Metabolic encephalopathy; D64.9 Anemia, unspecified; Z88.6 Allergy status to analgesic agent; Z79.4 Long term (current) use of insulin; E11.65 Type 2 diabetes mellitus with hyperglycemia; N39.0 Urinary tract infection, site not specified; I48.0 Paroxysmal atrial fibrillation; I10 Essential (primary) hypertension; A41.9 Sepsis, unspecified organism; Z88.8 Allergy status to other drugs, medicaments and biological substances; E86.0 Dehydration; E78.1 Pure hyperglyceridemia; Z79.01 Long term (current) use of anticoagulants; G09 Sequelae of inflammatory diseases of central nervous system; Z88.0 Allergy status to penicillin; F10.21 Alcohol dependence, in remission; F04 Amnestic disorder due to known physiological condition; Z86.16 Personal history of COVID-19; R44.3 Hallucinations, unspecified; B95.61 Methicillin susceptible Staphylococcus aureus infection as the cause of diseases classified elsewhere; Z86.711 Personal history of pulmonary embolism

== ENCOUNTER 2023-12-05 22:38 | Inpatient (IN) ==
[2023-12-06 00:27] LABS: Basophils # (auto) 0.02 K/uL (0.00-0.20); Basophils % (auto) 0.4 %; Eosinophils % (auto) 6.7 %; Hemoglobin 9.7 g/dl (12.0-16.0); Immature Granulocytes # (auto) 0.01 K/uL (0.01-0.20); Immature Granulocytes % (auto) 0.2 %; Lymphocytes # (auto) 1.49 K/uL (1.20-3.40); Lymphocytes % (auto) 33.1 %; Mean Corpuscular Hemoglobin 28.3 pg (25.0-34.0); Mean Corpuscular Hgb Conc 31.3 g/dL (32.0-36.0); Mean Corpuscular Volume 90.4 fL (80.0-100.0); Monocytes # (auto) 0.39 K/uL (0.11-0.59); Monocytes % (auto) 8.7 %; Neutrophils # (auto) 2.29 K/uL (1.40-6.50); Neutrophils % (auto) 50.9 %; Platelet Count 130 K/uL (130-400); RDW Coefficient of Variation 15.8 % (11.5-14.5); RDW Standard Deviation 52.1 fL (36.4-46.3); Red Blood Count 3.43 M/uL (4.20-5.40)
[2023-12-06 01:01] LABS: Thyroid Stimulating Hormone 2.753 uIu/ml (0.300-4.500)
[2023-12-06 01:12] LABS: Albumin Level 3.9 gm/dl (3.4-5.0); Bilirubin,Total 0.3 mg/dl (0.2-1.0); Calcium 9.4 mg/dl (8.6-10.3)
[2023-12-06 01:18] LABS: Albumin Globulin Ratio 1.3 (0.9-2); BUN Creatinine Ratio 35.2 (10-20); Creatinine Clr Calc Pharmacy 55.8 ml/min; Est GFR (African American) 80.5 ml/min; Est GFR (Non-African American) 69.4 ml/min; Globulin 3.1 gm/dl (2.5-4.0)
[2023-12-06] MEDS: SODIUM CHLORIDE 0.9% 1,000 ML IV ONE (01:27)
--- NOTE | 2023-12-06 01:28 | Emergency Department Note ---
Impression & Plan UTI (urinary tract infection), Aggression Admit to the [facility] ED Provider Note NAME: DULCE HUDSON AGE: 63 SEX: Female INFORMANT: Patient ED PROVIDER(S): nAne Koenig DO CHIEF COMPLAINT: Aggression PLAN: Disposition: Admit to the [facility] MEDICAL DECISION MAKING: This is a 63-year-old female patient with history of dementia who presents to the emergency department after becoming aggressive with her family. Patient has history of cryptococcal meningitis previously and has had recurrent episodes of altered mental status with urinary tract infection. She is cared for by her sister and family. They presented here tonight stating the patient had become too aggressive for them to care for her. They petitioned a 302 stating that she is a danger to herself as she is walking outside/leaving the home and becoming aggressive towards them. She is more altered than usual as they described. Patient suffered a fall a couple of days ago outside of her doctor's office. She was seen here in the emergency department where she underwent CT scans of her brain and facial bones. These were negative for traumatic injuries. On presentation today, the patient tells me about a boyfriend that she has who she believed was outside her home but family explains that this person does not exist. Laboratory studies revealed no leukocytosis or signs of significant infection. Hemoglobin was 9.7 which is baseline. BUN was slightly elevated at 31. Glucose was 170. Urinalysis appeared to be infected. Patient has longstanding history of this with resistant bacteria. Patient will be treated with IV daptomycin. I discussed the case with the [facility] and they will evaluate for further inpatient care. Care/management discussed with: hotel assistant general manager and the [facility] Triage Nursing notes: Reviewed and agree with them. Vital Signs: reviewed and unremarkable Chronic Medical/Social Conditions affecting care: Dementia status post meningitis Prior/ Outside/ External records reviewed: Most recent previous visit after suffering a facial injury following a fall at the neurologist office Differential Diagnosis: UTI, electrolyte abnormality, hypoglycemia Diagnostics, independently interpreted by me: Cardiac Monitoring: Normal sinus rhythm at 74 Imaging studies: Portable chest x-ray-no acute pulmonary infiltrates or consolidations. As per my independent interpretation HPI: 63 year old Female arrives for evaluation of aggression. Patient was at her sister's house who is the power of commercial attorney when she was insistent upon leaving the house to look for a car outside that was left by her boyfriend. Family is not convinced this person even exists. The patient showed me a picture this younger man on her phone and it says he is from [facility]. She says that he is from [facility]. PAST MEDICAL HISTORY: See Below, PAST SURGICAL HISTORY: See Below, SOCIAL HISTORY: See Below, HOME MEDICATIONS: See list ALLERGIES: See list VITALS: See Below PHYSICAL EXAMINATION: HEENT: Head - normocephalic with old traumatic injuries to the face. These are now scabbed over. Pupils are equal, round, and reactive to light. Extraocular eye muscles are intact, and sclera are anicteric. Nose - moist nasal mucosa without discharge. Mouth - moist buccal mucosa. Oropharynx is nonerythematous and there is no tonsillar exudate or edema noted. Neck: Supple; no JVD or cervical lymphadenopathy Heart: Regular rate and rhythm. There is a normal S1 and S2 with no murmurs, clicks, or gallops appreciated. Lungs: Clear to auscultation bilaterally with no wheezes, rales, or rhonchi. Abdomen: Soft, completely nontender, nondistended, with good bowel sounds. There are no palpable pulsatile masses or hepatosplenomegaly. There is no guarding, rigidity, or rebound noted. Extremities: No evidence of cyanosis, clubbing, or edema. There are easily palpable peripheral pulses. Skin: warm and dry with good turgor and no rashes. Neuro: Patient is awake, alert and oriented to day time and place. She was easily able to follow commands. She was not aggressive here in the emergency department. Emergency department course: The patient was evaluated in room C-3. A complete history and physical was performed. Previous ED records from fall a couple of days ago were reviewed. An IV lock was initiated and labs were drawn as above. Urine specimen was obtained. An order was placed for continuous cardiac monitoring. Patient was in a normal sinus rhythm at a rate of 74 Patient was medicated with a dose of IV daptomycin. I discussed the case with the [facility] Hospitalist and they will evaluate for further inpatient care. 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[facility] for 4 mon summer [address] GONZALEZ & INFECTIOUS DISEASE IBS (irritable bowel syndrome) Stable History of COVID-12 January 2021 > [facility], not hospitalized, fever, ear pain- did give infusion in ER No current issues Dyslipidemia Cirrhosis of liver FOLLOWS W/ [facility] Stable currently Depression Anxiety Diabetes mellitus, type 2 IDDM Glucose fluctuates - since Covid in December 2020 Follows with endocrinology Insomnia Kidney stones FOLLOWS WITH DR FUCHS No current issues - monitoring currently Hypertension Hydronephrosis due to obstruction of ureter Surgical History Hx of left cataract extraction History of endoscopy Status post Dupuytren's fasciectomy Hx of surgical amputation of finger left pinky History of cystoscopy WITH STENTS AND STONE BASKETING History of lithotripsy History of total hip arthroplasty LEFT Hx of colonoscopy Hx of wisdom tooth extraction History of tonsillectomy and adenoidectomy Hx of total hysterectomy GERALD WITH BSO Hx of tubal ligation Hx laparoscopic cholecystectomy Family History Father , age 75 Family history of diabetes mellitus Coronary heart disease Brother Family history of diabetes mellitus Mother , age 67 Family history of diabetes mellitus Heart disease Hypertension Myocardial infarction Grandfather (Paternal) Family history of diabetes mellitus Grandmother (Paternal) Family history of diabetes mellitus Denies family history of Ovarian cancer Prostate cancer Breast cancer Colorectal cancer Social History Smoking Status: Unknown if ever smoked Tobacco Type: Cigarettes Second Hand Exposure: No; Do You Dip or Chew Tobacco: No; Hx Alcohol Use: No Hx Substance Use: No Preferred Language: Pakistani Communication Ability: Effective Visual Impairment: No Limitations Hearing Ability: Normal Hot Knife Cutter Required: No Beliefs That Will Affect Care: None marital status: Current Living Situation: [facility] Current Living Situation Comment: Assisted Living [facility] current occupational status: employed and disabled current occupation: [employer] does have disability for diabetes- insurance helps How many Children do You have: 2 Feels Safe at Home: Hesitant to Answer Childhood Exposure to Second-Hand Smoke: No Diet: diabetic caffeine: Yes during the past year weight has: increased > 10 lbs Dental Care, Regularly: No Physical Activity Frequency: Does not Exercise Seatbelt Use: always Sunscreen Use: Yes Gender Identity: Female Assistive Devices: None Allergies Allergies Allergy/AdvReac Type Severity Reaction Status Date / Time Penicillins Allergy Intermediate Hives Verified 11/29/23 12:53 atorvastatin Allergy Unknown CAN'T Verified 11/29/23 12:53 REMEMBER/? RAISED LIVER LEVELS gemfibrozil [From Lopid] Allergy Unknown CAN'T Verified 11/29/23 12:53 REMEMBER/ ? RAISED LIVER LEVELS rosuvastatin AdvReac Intermediate Muscle Pain Verified 11/29/23 12:53 acetaminophen [From Tylenol] AdvReac Unknown CAN NOT Verified 11/29/23 12:53 TAKE D/T LIVER ISSUES ibuprofen AdvReac Unknown liver Verified 11/29/23 12:53 issues Home Meds Home Medications Medication Instructions Recorded Confirmed apixaban 5 mg tablet (Eliquis) 5 mg PO .@8AM8PM 11/11/23 12/06/23 cholecalciferol (vitamin D3) 50 2,000 unit PO .@830AM 11/11/23 12/06/23 mcg (2,000 unit) capsule fluconazole 200 mg tablet 400 mg PO .@830AM 11/11/23 12/06/23 fluticasone propionate 50 2 spray intranasal .@830AM 11/11/23 12/06/23 mcg/actuation nasal spray,suspension (Flonase Allergy Relief) magnesium chloride 64 mg 64 mg PO .@[id number] 11/11/23 12/06/23 (magnesium chloride) tablet,delayed release (Mag 64) metoprolol succinate 25 mg 25 mg PO .@[id number] 11/11/23 12/06/23 tablet,extended release 24 hr multivitamin 1 tab PO .@830AM 11/11/23 12/06/23 pantoprazole 40 mg tablet,delayed 40 mg PO .@[id number] 02/16/24 03/12/24 release quetiapine 100 mg tablet 100 mg PO .@8PM 11/11/23 12/06/23 sennosides 8.6 mg tablet (senna) 17.2 mg PO .@830AM 11/11/23 12/06/23 venlafaxine 150 mg 150 mg PO .@8PM 11/11/23 12/06/23 capsule,extended release 24 hr venlafaxine 75 mg capsule,extended 75 mg PO .@8PM 11/11/23 12/06/23 release 24 hr insulin aspart U-100 100 unit/mL See Rx Instructions subcut .COMPLEX 12/02/23 12/06/23 (3 mL) subcutaneous pen (Novolog FlexPen U-100 Insulin aspart) Previous Rx's Medication Instructions Recorded Contour Next Test Strips (blood #300 ea 09/02/23 sugar diagnostic) betamethasone dipropionate 0.05 % 1 applic topical TID PRN skin 09/02/23 lotion irritation #60 mL blood-glucose meter (Contour Next #1 ea 09/02/23 Glucose Meter kit) furosemide 20 mg tablet 20 mg PO QAM PRN volume overload 09/02/23 or weight gain #30 tabs lancets (Lancets,Ultra Thin) #200 ea 09/02/23 promethazine 12.5 mg tablet 12.5 mg PO TID PRN nausea and 09/02/23 vomiting #10 tabs diclofenac sodium 1 % topical gel 4 g topical QID PRN arthritis #100 10/25/23 (Arthritis Pain (diclofenac)) grams pen needle, diabetic 32 gauge x #200 ea 11/01/23 5/32" (BD Ultra-Fine Jody Pen Needle) blood sugar diagnostic (OneTouch #400 ea 11/21/23 Verio test strips) blood-glucose meter (OneTouch #1 ea 11/21/23 Verio Flex Meter) mirtazapine 45 mg tablet 45 mg PO HS #90 tabs 11/30/23 glucagon 3 mg/actuation nasal spray 3 mg intranasal ONCE PRN 12/02/23 hypoglycemia #2 ea insulin glargine 100 unit/mL (3 15 unit (0.15 mL) subcut BID #15 mL 12/02/23 mL) subcutaneous pen (Lantus Solostar U-100 Insulin) cetirizine 10 mg capsule (Zyrtec) 10 mg PO .@830AM allergy symptoms 12/05/23 #90 caps potassium chloride 10 mEq 10 meq PO .@830AM #90 caps 12/05/23 capsule,extended release risperidone 0.5 mg tablet 0.5 mg PO BID #60 tabs 12/05/23 thiamine HCl (vitamin B1) 100 mg 200 mg (2 x 100 mg) PO DAILY #60 12/05/23 tablet tabs Results & Data (ED) Vital Signs Vital Signs - 24 hr 12/05/23 22:48 12/05/23 22:52 12/05/23 22:52 Temperature 36.8 C Temperature Source Oral Pulse Rate 76 75 Pulse Rate [Apical] Pulse Rate from SpO2 Sensor Pulse Rhythm Regular Pulse Strength Normal Respiratory Rate 17 Respiratory Effort / Characteristics Non-Labored Respiratory Depth Normal Respiratory Pattern Regular Blood Pressure 138/83 Blood Pressure [Left Arm] Blood Pressure Mean 101 Blood Pressure Mean [Left Arm] Pulse Oximetry 100 100 Oxygen Delivery Method Room Air Room Air Oxygen Flow Rate 0 Sepsis Recent Fever Within 48 Hours No Sepsis New/Unexplained Change in Mental Status No Sepsis Action Taken by Nursing No Action Required Oxygen Flow Rate - Titration 0 Pulse Oximetry Post Tiitration 100 12/05/23 22:52 12/05/23 22:53 12/05/23 23:00 Temperature Temperature Source Pulse Rate 74 79 Pulse Rate [Apical] 74 Pulse Rate from SpO2 Sensor 74 78 Pulse Rhythm Pulse Strength Respiratory Rate 18 18 20 Respiratory Effort / Characteristics Respiratory Depth Respiratory Pattern Blood Pressure Blood Pressure [Left Arm] 138/83 Blood Pressure Mean Blood Pressure Mean [Left Arm] 101 Pulse Oximetry 100 100 100 Oxygen Delivery Method Room Air Oxygen Flow Rate Sepsis Recent Fever Within 48 Hours Sepsis New/Unexplained Change in Mental Status Sepsis Action Taken by Nursing Oxygen Flow Rate - Titration Pulse Oximetry Post Tiitration 12/05/23 23:56 12/06/23 00:00 12/06/23 00:28 Temperature Temperature Source Pulse Rate 73 Pulse Rate [Apical] 74 Pulse Rate from SpO2 Sensor 73 Pulse Rhythm Pulse Strength Respiratory Rate 19 17 Respiratory Effort / Characteristics Non-Labored Respiratory Depth Normal Respiratory Pattern Regular Blood Pressure Blood Pressure [Left Arm] 139/84 Blood Pressure Mean Blood Pressure Mean [Left Arm] 102 Pulse Oximetry 100 100 98 Oxygen Delivery Method Room Air Room Air Oxygen Flow Rate Sepsis Recent Fever Within 48 Hours Sepsis New/Unexplained Change in Mental Status Sepsis Action Taken by Nursing Oxygen Flow Rate - Titration Pulse Oximetry Post Tiitration 12/06/23 01:00 12/06/23 02:00 12/06/23 02:00 Temperature Temperature Source Pulse Rate 73 74 Pulse Rate [Apical] 73 Pulse Rate from SpO2 Sensor 72 73 Pulse Rhythm Pulse Strength Respiratory Rate 15 16 17 Respiratory Effort / Characteristics Respiratory Depth Respiratory Pattern Blood Pressure Blood Pressure [Left Arm] 138/83 Blood Pressure Mean Blood Pressure Mean [Left Arm] 101 Pulse Oximetry 99 99 99 Oxygen Delivery Method Room Air Oxygen Flow Rate Sepsis Recent Fever Within 48 Hours Sepsis New/Unexplained Change in Mental Status Sepsis Action Taken by Nursing Oxygen Flow Rate - Titration Pulse Oximetry Post Tiitration 12/06/23 02:46 12/06/23 03:00 12/06/23 04:00 Temperature Temperature Source Pulse Rate 79 75 Pulse Rate [Apical] 73 Pulse Rate from SpO2 Sensor 74 Pulse Rhythm Pulse Strength Respiratory Rate 17 17 Respiratory Effort / Characteristics Respiratory Depth Respiratory Pattern Blood Pressure Blood Pressure [Left Arm] 138/83 Blood Pressure Mean Blood Pressure Mean [Left Arm] 101 Pulse Oximetry 98 97 Oxygen Delivery Method Room Air Oxygen Flow Rate Sepsis Recent Fever Within 48 Hours Sepsis New/Unexplained Change in Mental Status Sepsis Action Taken by Nursing Oxygen Flow Rate - Titration Pulse Oximetry Post Tiitration 12/06/23 04:00 12/06/23 05:00 12/06/23 06:00 Temperature Temperature Source Pulse Rate 74 75 Pulse Rate [Apical] 74 Pulse Rate from SpO2 Sensor 74 75 Pulse Rhythm Pulse Strength Respiratory Rate 17 18 16 Respiratory Effort / Characteristics Respiratory Depth Respiratory Pattern Blood Pressure Blood Pressure [Left Arm] 138/83 Blood Pressure Mean Blood Pressure Mean [Left Arm] 101 Pulse Oximetry 97 99 97 Oxygen Delivery Method Room Air Oxygen Flow Rate Sepsis Recent Fever Within 48 Hours Sepsis New/Unexplained Change in Mental Status Sepsis Action Taken by Nursing Oxygen Flow Rate - Titration Pulse Oximetry Post Tiitration 12/06/23 06:00 12/06/23 06:35 12/06/23 07:00 Temperature Temperature Source Pulse Rate 74 73 72 Pulse Rate [Apical] Pulse Rate from SpO2 Sensor 74 72 Pulse Rhythm Pulse Strength Respiratory Rate 18 18 Respiratory Effort / Characteristics Respiratory Depth Respiratory Pattern Blood Pressure Blood Pressure [Left Arm] Blood Pressure Mean Blood Pressure Mean [Left Arm] Pulse Oximetry 99 99 Oxygen Delivery Method Oxygen Flow Rate Sepsis Recent Fever Within 48 Hours Sepsis New/Unexplained Change in Mental Status Sepsis Action Taken by Nursing Oxygen Flow Rate - Titration Pulse Oximetry Post Tiitration 12/06/23 08:00 12/06/23 09:00 Temperature Temperature Source Pulse Rate 69 69 Pulse Rate [Apical] Pulse Rate from SpO2 Sensor 70 69 Pulse Rhythm Pulse Strength Respiratory Rate 20 18 Respiratory Effort / Characteristics Respiratory Depth Respiratory Pattern Blood Pressure 145/83 H Blood Pressure [Left Arm] Blood Pressure Mean 103 Blood Pressure Mean [Left Arm] Pulse Oximetry 98 99 Oxygen Delivery Method Oxygen Flow Rate Sepsis Recent Fever Within 48 Hours Sepsis New/Unexplained Change in Mental Status Sepsis Action Taken by Nursing Oxygen Flow Rate - Titration Pulse Oximetry Post Tiitration Laboratory Data 12/06/23 08:05 12/06/23 Unknown Lab Results 12/05/23 12/05/23 12/06/23 Range/Units 20:50 22:48 02:43 WBC 4.50 L (4.8-10.8) K/ul RBC 3.43 L (4.20-5.40) M/uL Hgb 9.7 L (12.0-16.0) g/dl Hct 31.0 L (37.0-47.0) % MCV 90.4 (80.0-100.0) fL MCH 28.3 (25.0-34.0) pg MCHC 31.3 L (32.0-36.0) g/dL RDW Std Deviation 52.1 H (36.4-46.3) fL RDW Coeff of Jun 15.8 H (11.5-14.5) % Plt Count 130 (130-400) K/uL MPV 11.0 (9.4-12.4) fL Immature Gran % (Auto) 0.2 % Neut % (Auto) 50.9 % Lymph % (Auto) 33.1 % [place] % (Auto) 8.7 % Eos % (Auto) 6.7 % Baso % (Auto) 0.4 % Neut # (Auto) 2.29 (1.40-6.50) K/uL Lymph # (Auto) 1.49 (1.20-3.40) K/uL [place] # (Auto) 0.39 (0.11-0.59) K/uL Eos # (Auto) 0.30 (0.00-0.50) K/uL Baso # (Auto) 0.02 (0.00-0.20) K/uL Immature Gran # (Auto) 0.01 (0.01-0.20) K/uL Sodium Cancelled Potassium Cancelled Chloride Cancelled Carbon Dioxide Cancelled Anion Gap Cancelled BUN Cancelled Creatinine Cancelled Est Cr Clr Drug Dosing Cancelled Est GFR ( Amer) Cancelled Est GFR (Non-Af Amer) Cancelled BUN/Creatinine Ratio Cancelled Glucose Cancelled POC Glucose 183 H (70-99) mg/dl Lactate (0.4-2.0) mmol/L Calcium Cancelled Total Bilirubin Cancelled AST Cancelled ALT Cancelled Alkaline Phosphatase Cancelled Total Protein Cancelled Albumin Cancelled Globulin Cancelled Albumin/Globulin Ratio Cancelled TSH Cancelled Urine Color Yellow Urine Appearance Cloudy A (Clear) Urine pH 6.5 (4.5-7.5) Ur Specific [place] 1.019 (1.000-1.030) Urine Protein Trace H (Negative) Urine Glucose (UA) Negative (Negative) Urine Ketones Negative (Negative) Urine Blood 1+ H (Negative) Urine Nitrite Positive A (Negative) Urine Bilirubin Negative (Negative) Urine Urobilinogen Negative (Negative) Ur Leukocyte Esterase 3+ H (Negative) Urine WBC (Auto) >30 H (0-5) /hpf Urine RBC (Auto) 0-4 (0-4) /hpf U Hyaline Cast (Auto) 0 (0-5) /lpf U Epithel Cells (Auto) 0-5 (0-5) /lpf Urine Bacteria (Auto) Negative (Negative) Urine Yeast Not Reportable 12/06/23 12/06/23 12/06/23 Range/Units 04:36 08:05 08:51 WBC 5.00 (4.8-10.8) K/ul RBC 3.04 L (4.20-5.40) M/uL Hgb 8.6 L (12.0-16.0) g/dl Hct 27.1 L (37.0-47.0) % MCV 89.1 (80.0-100.0) fL MCH 28.3 (25.0-34.0) pg MCHC 31.7 L (32.0-36.0) g/dL RDW Std Deviation 50.8 H (36.4-46.3) fL RDW Coeff of Jun 15.6 H (11.5-14.5) % Plt Count 109 L (130-400) K/uL MPV 10.1 (9.4-12.4) fL Immature Gran % (Auto) 0.2 % Neut % (Auto) 59.0 % Lymph % (Auto) 28.6 % [place] % (Auto) 6.4 % Eos % (Auto) 5.2 % Baso % (Auto) 0.6 % Neut # (Auto) 2.95 (1.40-6.50) K/uL Lymph # (Auto) 1.43 (1.20-3.40) K/uL [place] # (Auto) 0.32 (0.11-0.59) K/uL Eos # (Auto) 0.26 (0.00-0.50) K/uL Baso # (Auto) 0.03 (0.00-0.20) K/uL Immature Gran # (Auto) 0.01 (0.01-0.20) K/uL Sodium 140 Potassium 4.0 Chloride 107 Carbon Dioxide 26 Anion Gap 7 BUN 26 H Creatinine 0.73 Est Cr Clr Drug Dosing 67.2 Est GFR ( Amer) 100.9 Est GFR (Non-Af Amer) 87.0 BUN/Creatinine Ratio 35.6 H Glucose 97 POC Glucose 86 (70-99) mg/dl Lactate 1.0 (0.4-2.0) mmol/L Calcium 8.6 Total Bilirubin 0.3 AST 26 ALT 21 Alkaline Phosphatase 124 H Total Protein 6.0 Albumin 3.5 Globulin 2.5 Albumin/Globulin Ratio 1.4 TSH Urine Color Urine Appearance (Clear) Urine pH (4.5-7.5) Ur Specific [place] (1.000-1.030) Urine Protein (Negative) Urine Glucose (UA) (Negative) Urine Ketones (Negative) Urine Blood (Negative) Urine Nitrite (Negative) Urine Bilirubin (Negative) Urine Urobilinogen (Negative) Ur Leukocyte Esterase (Negative) Urine WBC (Auto) (0-5) /hpf Urine RBC (Auto) (0-4) /hpf U Hyaline Cast (Auto) (0-5) /lpf U Epithel Cells (Auto) (0-5) /lpf Urine Bacteria (Auto) (Negative) Urine Yeast 12/06/23 Range/Units 11:55 WBC (4.8-10.8) K/ul RBC (4.20-5.40) M/uL Hgb (12.0-16.0) g/dl Hct (37.0-47.0) % MCV (80.0-100.0) fL MCH (25.0-34.0) pg MCHC (32.0-36.0) g/dL RDW Std Deviation (36.4-46.3) fL RDW Coeff of Jun (11.5-14.5) % Plt Count (130-400) K/uL MPV (9.4-12.4) fL Immature Gran % (Auto) % Neut % (Auto) % Lymph % (Auto) % [place] % (Auto) % Eos % (Auto) % Baso % (Auto) % Neut # (Auto) (1.40-6.50) K/uL Lymph # (Auto) (1.20-3.40) K/uL [place] # (Auto) (0.11-0.59) K/uL Eos # (Auto) (0.00-0.50) K/uL Baso # (Auto) (0.00-0.20) K/uL Immature Gran # (Auto) (0.01-0.20) K/uL Sodium Potassium Chloride Carbon Dioxide Anion Gap BUN Creatinine Est Cr Clr Drug Dosing Est GFR ( Amer) Est GFR (Non-Af Amer) BUN/Creatinine Ratio Glucose POC Glucose 106 H (70-99) mg/dl Lactate (0.4-2.0) mmol/L Calcium Total Bilirubin AST ALT Alkaline Phosphatase Total Protein Albumin Globulin Albumin/Globulin Ratio TSH Urine Color Urine Appearance (Clear) Urine pH (4.5-7.5) Ur Specific [place] (1.000-1.030) Urine Protein (Negative) Urine Glucose (UA) (Negative) Urine Ketones (Negative) Urine Blood (Negative) Urine Nitrite (Negative) Urine Bilirubin (Negative) Urine Urobilinogen (Negative) Ur Leukocyte Esterase (Negative) Urine WBC (Auto) (0-5) /hpf Urine RBC (Auto) (0-4) /hpf U Hyaline Cast (Auto) (0-5) /lpf U Epithel Cells (Auto) (0-5) /lpf Urine Bacteria (Auto) (Negative) Urine Yeast Administered Medications Apixaban (Apixaban 5 Mg Tablet) 5 mg PO BID HALEY Stop: 01/05/24 08:29 Last Admin: 12/06/23 11:48 Dose: 5 mg Documented By: SRL Cetirizine HCl (Cetirizine Hcl 10 Mg Tablet) 10 mg PO QAM [facility] Stop: 01/05/24 08:29 Last Admin: 12/06/23 11:49 Dose: 10 mg Documented By: SRL Fluconazole (Fluconazole 100 Mg Tab) 400 mg PO QAM [facility] Stop: 12/16/23 08:29 Last Admin: 12/06/23 11:48 Dose: 400 mg Documented By: SRL Fluticasone Propionate (Fluticasone Propionate Na Spr 16 Gm Btl) 2 sprays NA QAM [facility] Stop: 01/05/24 08:59 Last Admin: 12/06/23 11:50 Dose: Not Given Documented By: SRL Lactated Ringer's (Lr) 1,000 mls @ 80 mls/hr IV .[id number] [facility] Stop: 12/07/23 08:52 Last Admin: 12/06/23 13:29 Dose: 80 mls/hr Documented By: SRL Insulin Aspart (Insulin Aspart Per Unit Charge) 0 units SC ACHS [facility] Stop: 01/05/24 07:52 Last Admin: 12/06/23 12:05 Dose: Not Given Documented By: Admin: 12/06/23 09:01 Dose: Not Given Documented By: SRL Insulin Glargine (Lantus Per Unit Charge) 10 units SQ BID [facility] Stop: 01/05/24 08:59 Last Admin: 12/06/23 12:05 Dose: Not Given Documented By: SRL Metoprolol Succinate (Metoprolol Succ 25mg Ext Rel Tab) 25 mg PO BID [facility] Stop: 01/05/24 08:29 Last Admin: 12/06/23 11:48 Dose: 25 mg Documented By: SRL Pantoprazole Sodium (Pantoprazole 40 Mg Tab) 40 mg PO BID [facility] Stop: 01/05/24 08:29 Last Admin: 12/06/23 11:49 Dose: Not Given Documented By: Admin: 12/06/23 11:48 Dose: 40 mg Documented By: SRL Sennosides (Senna 8.6 Mg Tab) 17.2 mg PO TODAY@0830 [facility] Stop: 01/05/24 08:29 Last Admin: 12/06/23 11:47 Dose: 17.2 mg Documented By: SRL Thiamine HCl (Thiamine Hcl 100 Mg Tab) 200 mg PO DAILY [facility] Stop: 01/05/24 08:59 Last Admin: 12/06/23 11:48 Dose: 200 mg Documented By: SRL Discontinued Medications Sodium Chloride (Nss) 1,000 mls @ 999 mls/hr IV .Q1H1M ONE Stop: 12/06/23 02:22 Last Infusion: 12/06/23 04:03 Dose: Infused Documented By: Admin: 12/06/23 01:27 Dose: 999 mls/hr Documented By: MELLISA Daptomycin 225 mg/ Syringe 4.5 mls @ 2.25 mls/min IV ONE ONE; Protocol Stop: 12/06/23 04:08 Last Admin: 12/06/23 05:46 Dose: 2.25 mls/min Documented By: MELLISA Risperidone (Risperidone 0.5 Mg Tablet) 0.5 mg PO BID HALEY Stop: 01/05/24 08:59 Last Admin: 12/06/23 12:04 Dose: Not Given Documented By: SRL Imaging Data Radiologist's Impression: Chest X-Ray 12/05/23 23:56 XR chest 1V portable HISTORY: 63 years-old Female weakness acute weakness COMPARISON: 11/11/2023 TECHNIQUE: AP view the chest FINDINGS: The cardiomediastinal and hilar silhouettes are within normal limits. No pneumothorax, pleural effusion, airspace consolidation or overt pulmonary edema. Chronic interstitial coarsening. Mild bibasilar densities favor atelectasis. IMPRESSION: No acute process. ACT 112: Negative or not required by law. The above report was generated using voice recognition software. It may contain grammatical, syntax or spelling errors. Electronically signed by: Markos Tineo M.D. 12/06/2023 6:53 AM Discharge Plan Visit Data Chief Complaint: Altered Mental Status Stated Complaint: ALTERED, HALLUCINATIONS, FALL TUESDAY ED Provider: Anne Koenig Discharge Problem: UTI (urinary tract infection), Aggression Discharge Instructions Interventions: ED Discharge Assessment Last Done: 12/06/23 08:37
[2023-12-06 03:05] LABS: Appearance Urine Cloudy (Clear); Bacteria Urine Automated Negative (Negative); Bilirubin Urine Negative (Negative); Blood Urine 1+ (Negative); Color Urine Yellow; Epithelial Cell Urine Auto 0-5 /lpf (0-5); Glucose Urine UA Negative (Negative); Ketones Urine Negative (Negative); Leukocyte Esterase Urine 3+ (Negative); Nitrite Urine Positive (Negative); Protein Urine Trace (Negative); RBC Urine Automated 0-4 /hpf (0-4); Specific Gravity Urine 1.019 (1.000-1.030); Urobilinogen Urine Negative (Negative); WBC Urine Automated >30 /hpf (0-5); pH Urine 6.5 (4.5-7.5)
[2023-12-06 03:25] LABS: Cast Urine Automated 0 /lpf (0-5)
--- NOTE | 2023-12-06 04:24 | History & Physical Report ---
Date of Service December 06, 2023 Assessment & Plan (1) UTI (urinary tract infection): Plan: Patient with asymptomatic bacteruria. Treated in the ED with daptomycin x1. Last grew MSSA in urine. Urine and blood cultures pending. Lactate pending. Fluid resuscitated with 1L NS. Patient does not meet SIRs critera at present. Can continue with abx for now as patient at higher risk of MRSA and can be an unreliable historian. 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 Patient most likely at baseline in terms of mood/hallucinations/delusions/mental state. Alert and oriented x4. Continue home fluconazole, mirtazapine, quetiapine, risperidone, and venlafaxine. Does appear to be some aggression/tension between her and her family members. Placement will be important to discuss as it is unclear if she is willing to return to her sister's house. Consider CM referral. (3) Paroxysmal A-fib: Plan: Currently rate controlled. Continue with metoprolol for rate control. Eliquis for ppx. (4) Uncontrolled type 2 diabetes mellitus with hyperglycemia, with long-term current use of insulin: Plan: Patient on Lantus 15 mg BID outpatient. Reduce to 10 mg SQ BID with SSI while inpatient. Last HbA1c 7.9 during last admit. ACHS BSG. 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 Dose Lasix 20 mg PRN for weight gain or volume overload. Monitor fluid status. (9) Anemia: Plan: Chronic continue to monitor. AM CBC Plan Code status: full DVT ppx: Eliquis 5 mg BID, SCDs FENGI: Carb consistent, heart healthy, mIVF @ 80 mL/hr x 2 bags Dispo: MedSurg History of Present Illness Chief Complaint: aggression Primary Care Provider: Nori Temple MD 63 y/o female with a complex PMHx including cryptococcal meningitis, hallucinations/delusions, a fib on Eliquis, insulin dependent T2DM, HTN, anxiety/depression, and thiamine deficiency presented to the ED after becoming aggressive with her family. Per patient that got in a "mouth" disagreement. Reportedly she went outside to look for her friend's car because he had clothes for her. She was unable to find it and went back towards the house. Her sister was then yelling for her to come inside. Her brother in-law reportedly then threatened to put locks with alarms on all the doors and have her institutionalized. Sister is POA and insisted on medical evaluation. Of note these hallucinations/delusions do appear to be at baseline for the author who is familiar with Ms. Ye's clinical course. Patient repeatedly and consistently speaks of a friend/boyfriend who lives abroad that her family has not met. Patient's family does not believe that he exists. The truth is unclear at this juncture. Upon my assessment patient is lying comfortably in bed. She is appropriately interactive and oriented. She reports the above history in a calm and collected manner. She denies any dysuria, hematuria, abdominal pain, back pain, fevers, chills, CP, SOB. Did fall recently and was seen in the ED. No neuro deficits at that time. CT head with small frontal hematoma, no fractures. UA positive in the ED. Given daptomycin as patient recently hospitalized with MSSA UTI. Allergies Allergy/AdvReac Type Severity Reaction Status Date / Time Penicillins Allergy Intermediate Hives Verified 11/29/23 12:53 atorvastatin Allergy Unknown CAN'T Verified 11/29/23 12:53 REMEMBER/? RAISED LIVER LEVELS gemfibrozil [From Lopid] Allergy Unknown CAN'T Verified 11/29/23 12:53 REMEMBER/ ? RAISED LIVER LEVELS rosuvastatin AdvReac Intermediate Muscle Pain Verified 11/29/23 12:53 acetaminophen [From Tylenol] AdvReac Unknown CAN NOT Verified 11/29/23 12:53 TAKE D/T LIVER ISSUES ibuprofen AdvReac Unknown liver Verified 11/29/23 12:53 issues Home Medications Medication Instructions Recorded Confirmed Type Contour Next Test Strips (blood #300 ea 09/02/23 11/29/23 Rx sugar diagnostic) betamethasone dipropionate 0.05 % 1 applic topical TID PRN skin 09/02/23 12/06/23 Rx lotion irritation #60 mL blood-glucose meter (Contour Next #1 ea 09/02/23 11/29/23 Rx Glucose Meter kit) furosemide 20 mg tablet 20 mg PO QAM PRN volume overload 09/02/23 12/06/23 Rx or weight gain #30 tabs lancets (Lancets,Ultra Thin) #200 ea 09/02/23 11/29/23 Rx promethazine 12.5 mg tablet 12.5 mg PO TID PRN nausea and 09/02/23 12/06/23 Rx vomiting #10 tabs diclofenac sodium 1 % topical gel 4 g topical QID PRN arthritis #100 10/25/23 12/06/23 Rx (Arthritis Pain (diclofenac)) grams pen needle, diabetic 32 gauge x #200 ea 11/01/23 11/29/23 Rx 532" (BD Ultra-Fine Jody Pen Needle) apixaban 5 mg tablet (Eliquis) 5 mg PO .@8AM8PM 11/11/23 12/06/23 History cholecalciferol (vitamin D3) 50 2,000 unit PO .@830AM 11/11/23 12/06/23 History mcg (2,000 unit) capsule fluconazole 200 mg tablet 400 mg PO .@830AM 11/11/23 12/06/23 History fluticasone propionate 50 2 spray intranasal .@830AM 11/11/23 12/06/23 History mcg/actuation nasal spray,suspension (Flonase Allergy Relief) magnesium chloride 64 mg 64 mg PO .@[id number] 11/11/23 12/06/23 History (magnesium chloride) tablet,delayed release (Mag 64) metoprolol succinate 25 mg 25 mg PO .@[id number] 11/11/23 12/06/23 History tablet,extended release 24 hr multivitamin 1 tab PO .@830AM 11/11/23 12/06/23 History pantoprazole 40 mg tablet,delayed 40 mg PO .@[id number] 11/11/23 12/06/23 History release quetiapine 100 mg tablet 100 mg PO .@8PM 11/11/23 12/06/23 History sennosides 8.6 mg tablet (senna) 17.2 mg PO .@830AM 11/11/23 12/06/23 History venlafaxine 150 mg 150 mg PO .@8PM 11/11/23 12/06/23 History capsule,extended release 24 hr venlafaxine 75 mg capsule,extended 75 mg PO .@8PM 11/11/23 12/06/23 History release 24 hr blood sugar diagnostic (OneTouch #400 ea 11/21/23 11/29/23 Rx Verio test strips) blood-glucose meter (OneTouch #1 ea 11/21/23 11/29/23 Rx Verio Flex Meter) mirtazapine 45 mg tablet 45 mg PO HS #90 tabs 11/30/23 12/06/23 Rx glucagon 3 mg/actuation nasal spray 3 mg intranasal ONCE PRN 12/02/23 12/06/23 Rx hypoglycemia #2 ea insulin aspart U-100 100 unit/mL See Rx Instructions subcut .COMPLEX 12/02/23 12/06/23 History (3 mL) subcutaneous pen (Novolog FlexPen U-100 Insulin aspart) insulin glargine 100 unit/mL (3 15 unit (0.15 mL) subcut BID #15 mL 12/02/23 12/06/23 Rx mL) subcutaneous pen (Lantus Solostar U-100 Insulin) cetirizine 10 mg capsule (Zyrtec) 10 mg PO .@830AM allergy symptoms 12/05/23 12/06/23 Rx #90 caps potassium chloride 10 mEq 10 meq PO .@830AM #90 caps 12/05/23 12/06/23 Rx capsule,extended release risperidone 0.5 mg tablet 0.5 mg PO BID #60 tabs 12/05/23 12/06/23 Rx thiamine HCl (vitamin B1) 100 mg 200 mg (2 x 100 mg) PO DAILY #60 12/05/23 12/06/23 Rx tablet tabs 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[facility] for 4 mon summer [address] GONZALEZ & INFECTIOUS DISEASE DR IBS (irritable bowel syndrome) Stable History of COVID-12 January 2021 > [facility], not hospitalized, fever, ear pain- did give infusion in ER No current issues Dyslipidemia Cirrhosis of liver FOLLOWS W/ [facility] Stable currently Depression Anxiety Diabetes mellitus, type 2 IDDM Glucose fluctuates - since Covid in December 2020 Follows with endocrinology Insomnia Kidney stones FOLLOWS WITH DR FUCHS No current issues - monitoring currently Hypertension Hydronephrosis due to obstruction of ureter Surgical History Hx of left cataract extraction History of endoscopy Status post Dupuytren's fasciectomy Hx of surgical amputation of finger left pinky History of cystoscopy WITH STENTS AND STONE BASKETING History of lithotripsy History of total hip arthroplasty LEFT Hx of colonoscopy Hx of wisdom tooth extraction History of tonsillectomy and adenoidectomy Hx of total hysterectomy GERALD WITH BSO Hx of tubal ligation Hx laparoscopic cholecystectomy Family History Father , age 75 Family history of diabetes mellitus Coronary heart disease Brother Family history of diabetes mellitus Mother , age 67 Family history of diabetes mellitus Heart disease Hypertension Myocardial infarction Grandfather (Paternal) Family history of diabetes mellitus Grandmother (Paternal) Family history of diabetes mellitus Denies family history of Ovarian cancer Prostate cancer Breast cancer Colorectal cancer Social History Smoking Status: Unknown if ever smoked Tobacco Type: Cigarettes Second Hand Exposure: No; Do You Dip or Chew Tobacco: No; Hx Alcohol Use: No Hx Substance Use: No Preferred Language: Moroccan Communication Ability: Effective Visual Impairment: No Limitations Hearing Ability: Normal Transitional Nurse Required: No Beliefs That Will Affect Care: None marital status: Current Living Situation: Penitentiary Current Living Situation Comment: Assisted Living [facility] current occupational status: employed and disabled current occupation: [employer]-pt does have disability for diabetes- insurance helps How many Children do You have: 2 Feels Safe at Home: Hesitant to Answer Childhood Exposure to Second-Hand Smoke: No Diet: diabetic caffeine: Yes during the past year weight has: increased > 10 lbs Dental Care, Regularly: No Physical Activity Frequency: Does not Exercise Seatbelt Use: always Sunscreen Use: Yes Gender Identity: Female Assistive Devices: None Review of Systems 2 Review of Systems: See HPI Physical Exam 2 Physical Exam: Gen: well appearing female patient in NAD HEENT: AT NC MMM bruises in various stages of healing Resp: CTAB no wheezing no increased work of breathing CV: RRR no m/r/g clinically well perfused Abd: soft, non-tender, non-distended, no suprapubic tenderness or peritoneal signs MSK: no obvious deformities Skin: no rashes, well perfused Neuro: alert and oriented x4, speech fluent and congruent Psych: appropriate mood and affect Results & Data Results & Data Vital Signs (Past 12 Hours) Vital Signs Temp Pulse Pulse Resp BP BP Pulse Ox 12/06/23 04:00 73 17 138/83 97 12/06/23 02:46 79 12/06/23 02:00 73 16 138/83 99 12/06/23 00:28 74 17 139/84 98 12/05/23 23:56 100 12/05/23 22:53 74 18 138/83 100 12/05/23 22:52 75 12/05/23 22:52 100 12/05/23 22:48 36.8 C 76 17 138/83 100 O2 Del Method O2 Flow Rate 12/06/23 04:00 Room Air 12/06/23 02:46 12/06/23 02:00 Room Air 12/06/23 00:28 Room Air 12/05/23 23:56 Room Air 12/05/23 22:53 Room Air 12/05/23 22:52 12/05/23 22:52 Room Air 0 12/05/23 22:48 Room Air Laboratory Results 12/05/23 20:50 12/06/23 Unknown Supervising Physician Co-Signing Physician Notes Seen and examined, chart reviewed, case discussed with Dr. aHmeed and I agree with the assessment and plan as document above. In brief, patient is a 63-year-old female with history of cryptococcal meningitis on chronic fluconazole therapy, depression/anxiety/psychotic disorder with hallucinations presenting with increased aggression toward family, possibly some confusion. She denies any urinary complaints. On exam patient is resting comfortably in bed. She displays extensive ecchymosis and abrasions on her face following a recent fall Pupils equal round and reactive to light, extraocular muscles intact, moist mucous membranes, neck supple + S1, S2, regular, no murmur/rub/gallops Lungs CTA anteriorly with no rales/rhonchi/wheezes Abdomen + bowel sounds, soft, nontender ExtremitiesWarm and well-perfused Labs and images reviewed Assessment/[id number] female presenting with agitation, possibly increased confusion. Patient with history of cryptococcal meningitis on fluconazole therapy, history of hallucinations Worsening symptoms possibly secondary to UTI patient does not endorse urinary symptoms we will treat with daptomycin PT/OT evaluation, possible case management referral for placement needs Remainder of plan as above Resident Activity Tracking Resident Involvement: Resident Care Provided Care Provided: Adult Hospital Medicine (1) UTI (urinary tract infection) Hematuria presence: without hematuria Urinary tract infection type: site unspecified Qualified Code(s): N39.0 - Urinary tract infection, site not specified (2) Altered mental state Altered mental status type: unspecified Qualified Code(s): R41.82 - Altered mental status, unspecified (6) Depression Depression Type: unspecified Qualified Code(s): F32.9 - Major depressive disorder, single episode, unspecified (8) Hypertension Hypertension type: essential hypertension Qualified Code(s): I10 - Essential (primary) hypertension (9) Anemia Anemia type: other cause Other causes of anemia: acute posthemorrhagic Qualified Code(s): D62 - Acute posthemorrhagic anemia
[2023-12-06] MEDS: DAPTOmycin 225 MG in SYRINGE 0 ML IV ONE (05:46)
--- NOTE | 2023-12-06 06:11 | Billing Data ---
Date of Service December 06, 2023 Coding Level of Care Code 28281 INT INP/OBS CARE
--- NOTE | 2023-12-06 06:55 | XRay Report ---
XR chest 1V portable HISTORY: 63 years-old Female weakness acute weakness COMPARISON: 11/11/2023 TECHNIQUE: AP view the chest FINDINGS: The cardiomediastinal and hilar silhouettes are within normal limits. No pneumothorax, pleural effusi on, airspace consolidation or overt pulmonary edema. Chronic interstitial coarsening. Mild bibasilar densities favor atelectasis. IMPRESSION: No acute process. ACT 112: Negative or not required by law. The above report was generated using voice recognition software. It may contain grammatical, syntax o r spelling errors. Electronically signed by: Markos Tineo M.D. 12/06/2023 6:53 AM
--- NOTE | 2023-12-06 07:30 | Hospitalist Progress Note ---
Date of Service December 06, 2023 Assessment & Plan (1) UTI (urinary tract infection): Plan: Pt is a 63 yo female with PMH of cryptococcal meningitis with residual hallucinations/delusions, DM, Afib, cirrhosis, and depression/anxiety presenting to the hospital at family's urging d/t aggression/change in behavior. Asymptomatic bacteriuria - treated in the ED with daptomycin x1; pt last grew MSSA in urine - urine and blood cultures pending - continue with dapto for now as patient at higher risk of MRSA; will consider discontinuation pending cx results 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 400 mg qAM ppx - pt appears at baseline in terms of mood/hallucinations/delusions/mental state; alert and oriented x4 - d/t persisting delusions, will trial increase of risperidone to 1 mg BID - continue home fluconazole, mirtazapine, quetiapine, and venlafaxine - placement remains an important consideration as it is unclear if she is able to return to her sister's house vs. 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 No physical complaints. Notes "I feel as good as I have been he ages"notes that the situation at home has been very difficult, believes that her family that she is now living with assuming everything is a hallucination/delusion, and she feels that they are very overbearing and how they are treating her. At the same time, does not want to go to a facility, wants to just go back to their house but be left alone. A little bit difficult to redirect, perseverates on the negative emotions of the situation, also visits the idea that her [id number] wants her money a few times without a lot of clarification. Vitals noted, in general she is awake and alert it is a little bit hard to gauge depth of insight and judgment due to her perseveration on negative emotions, her face has significant bruising from a fall a few days ago. Breathing unlabored no accessory muscle use good effort. Skin without rashes pallor or icterus outside of the bruising and abrasions on her face. Hallucinations/delusionsit is definitely hard to gauge the situation from her story alone, we will definitely need to get more collateral from family first handthere discussion with ER psych liaison certainly sounds very different than the patient's recollection of what has happened; whenever I have taken care of her before, she unfortunately does have very real to her hallucinations, and I do wonder how much that is driving situation at home, versus how much might also be the family needing to get acclimated to her erratic behaviors and trying to determine safety versus unpleasant. Will try to quell the hallucinations and delusions somewhat escalating her respite allobviously do not create oversedation, but her current life situation is really not sustainable with the current level of dysphoria. Disposition will be quite difficult. anticoagulated Subjective Pt is a 63 yo female with PMH of cryptococcal meningitis with residual hallucinations/delusions, DM, Afib, cirrhosis, and depression/anxiety presenting to the hospital at [facility]'s urging d/t aggression/change in behavior. Pt doing well this AM. She is frustrated with her current situation- she just left [facility] on Tuesday and wants to remain at home and "live life." Review of Systems Review of Systems: As per HPI Physical Exam Physical Exam: Constitutional: well appearing, no acute distress HEENT: normocephalic, no conjunctival injection CV: RRR, no murmur, no LE edema Respiratory: CTA bilaterally. No rhonchi, wheezes, or crackles. No increased work of breathing MSK: no gross deformities noted Skin: warm, dry, no rashes Neuro: alert, oriented, no FND noted; not responding to external stimuli Psych: mood and affect congruent; emotionally appropriate Results & Data Results & Data Vital Signs (Past 12 Hours) Vital Signs Temp Pulse Pulse Resp BP BP Pulse Ox 12/06/23 06:35 73 12/06/23 06:00 74 16 138/83 97 12/06/23 04:00 73 17 138/83 97 12/06/23 02:46 79 12/06/23 02:00 73 16 138/83 99 12/06/23 00:28 74 17 139/84 98 12/05/23 23:56 100 12/05/23 22:53 74 18 138/83 100 12/05/23 22:52 75 12/05/23 22:52 100 12/05/23 22:48 36.8 C 76 17 138/83 100 O2 Del Method O2 Flow Rate 12/06/23 06:35 12/06/23 06:00 Room Air 12/06/23 04:00 Room Air 12/06/23 02:46 12/06/23 02:00 Room Air 12/06/23 00:28 Room Air 12/05/23 23:56 Room Air 12/05/23 22:53 Room Air 12/05/23 22:52 12/05/23 22:52 Room Air 0 12/05/23 22:48 Room Air Resident Activity Tracking Resident Involvement: Resident Care Provided Care Provided: Adult Hospital Medicine (1) UTI (urinary tract infection) Hematuria presence: without hematuria Urinary tract infection type: site unspecified Qualified Code(s): N39.0 - Urinary tract infection, site not specified (2) Altered mental state Altered mental status type: unspecified Qualified Code(s): R41.82 - Altered mental status, unspecified (6) Depression Depression Type: unspecified Qualified Code(s): F32.9 - Major depressive disorder, single episode, unspecified (8) Hypertension Hypertension type: essential hypertension Qualified Code(s): I10 - Essential (primary) hypertension (9) Anemia Anemia type: other cause Other causes of anemia: acute posthemorrhagic Qualified Code(s): D62 - Acute posthemorrhagic anemia
[2023-12-06] MEDS ORDERED: GLUCOSE 40% GEL 15 GM TUBE PO PRN (07:53)
[2023-12-06] MEDS ORDERED: GLUCAGON FOR INJ 1 MG VIAL SQ PRN (07:53)
[2023-12-06] MEDS ORDERED: POLYETHYLENE (MIRALAX) 17 GM PACK PO PRN (07:53)
[2023-12-06] MEDS ORDERED: PROMETHAZINE HCL 25 MG TAB PO PRN (07:53)
[2023-12-06] MEDS ORDERED: DICLOFENAC SOD 1% GEL 100 GM TUBE EXT PRN (07:53)
[2023-12-06] MEDS ORDERED: DEXTROSE 50% 50 ML SYRINGE IV PRN (07:53)
[2023-12-06] MEDS ORDERED: GLUCOSE 10 TAB/TUBE PO PRN (07:53)
[2023-12-06 08:29] LABS: Basophils # (auto) 0.03 K/uL (0.00-0.20); Basophils % (auto) 0.6 %; Eosinophils # (auto) 0.26 K/uL (0.00-0.50); Eosinophils % (auto) 5.2 %; Hematocrit (blood only) 27.1 % (37.0-47.0); Hemoglobin 8.6 g/dl (12.0-16.0); Immature Granulocytes # (auto) 0.01 K/uL (0.01-0.20); Immature Granulocytes % (auto) 0.2 %; Lymphocytes # (auto) 1.43 K/uL (1.20-3.40); Lymphocytes % (auto) 28.6 %; Mean Corpuscular Hemoglobin 28.3 pg (25.0-34.0); Mean Corpuscular Hgb Conc 31.7 g/dL (32.0-36.0); Mean Corpuscular Volume 89.1 fL (80.0-100.0); Mean Platelet Volume 10.1 fL (9.4-12.4); Monocytes # (auto) 0.32 K/uL (0.11-0.59); Monocytes % (auto) 6.4 %; Neutrophils # (auto) 2.95 K/uL (1.40-6.50); Platelet Count 109 K/uL (130-400); RDW Coefficient of Variation 15.6 % (11.5-14.5); RDW Standard Deviation 50.8 fL (36.4-46.3); Red Blood Count 3.04 M/uL (4.20-5.40)
[2023-12-06 08:50] LABS: Albumin Globulin Ratio 1.4 (0.9-2); Albumin Level 3.5 gm/dl (3.4-5.0); BUN Creatinine Ratio 35.6 (10-20); Bilirubin,Total 0.3 mg/dl (0.2-1.0); Calcium 8.6 mg/dl (8.6-10.3); Creatinine Clr Calc Pharmacy 67.2 ml/min; Est GFR (African American) 100.9 ml/min; Globulin 2.5 gm/dl (2.5-4.0)
[2023-12-06] MEDS: INSULIN ASPART PER UNIT CHARGE SC SCH (09:01)
[2023-12-06] MEDS: SENNA 8.6 MG TAB PO SCH (11:47)
[2023-12-06] MEDS: THIAMINE HCL 100 MG TAB PO SCH (11:48)
[2023-12-06] MEDS: FLUCONAZOLE 100 MG TAB PO SCH (11:48)
[2023-12-06] MEDS: METOPROLOL SUCC 25MG EXT REL TAB PO SCH (11:48)
[2023-12-06] MEDS: APIXABAN 5 MG TABLET PO SCH (11:48)
[2023-12-06] MEDS: PANTOprazole 40 MG TAB PO SCH (11:48)
[2023-12-06] MEDS: CETIRIZINE HCL 10 MG TABLET PO SCH (11:49)
[2023-12-06] MEDS: FLUTICASONE PROPIONATE NA SPR 16 GM BTL SCH (11:50)
[2023-12-06] MEDS: risperiDONE 0.5 MG TABLET PO SCH (12:04)
[2023-12-06] MEDS: LANTUS PER UNIT CHARGE SQ SCH (12:05)
[2023-12-06] MEDS: LACTATED RINGER'S 1,000 ML IV SCH (13:29)
--- NOTE | 2023-12-06 18:30 | Billing Data ---
Date of Service December 06, 2023 Coding Level of Care Code 04645 SUB INP/OBS CARE MIN
[2023-12-06] MEDS: QUEtiapine FUMARATE 100 MG TABLET PO SCH (20:17)
[2023-12-06] MEDS: VENLAFAXINE HCL XR 75 MG CAPXR PO SCH (20:17)
[2023-12-06] MEDS: VENLAFAXINE HCL XR 150 MG CAPXR PO SCH (20:17)
[2023-12-06] MEDS: MIRTAZAPINE SOLTAB 15 MG PO SCH (20:19)
[2023-12-06] MEDS: risperiDONE 1 MG TABLET PO SCH (20:21)
[2023-12-07] MEDS: DAPTOmycin 225 MG in SYRINGE 0 ML IV SCH (04:57)
--- NOTE | 2023-12-07 06:17 | Electrocardiogram Report ---
Test Reason : Blood Pressure : / mmHG Vent. Rate : 078 BPM Atrial Rate : 000 BPM P-R Int : 000 ms QRS Dur : 106 ms QT Int : 386 ms P-R-T Axes : 000 -37 063 degrees QTc Int : 440 ms Normal sinus rhythm Left axis deviation Abnormal ECG When compared with ECG of 11-NOV-2023 08:19, Vent. rate has decreased BY 39 BPM Nonspecific T wave abnormality has replaced inverted T waves in Lateral leads Confirmed by Bertram June ([id number]) on 12/07/2023 6:17:32 AM Referred By: REFERRED SELF Confirmed By:Bertram June
[2023-12-07 07:00] LABS: Basophils # (auto) 0.02 K/uL (0.00-0.20); Basophils % (auto) 0.5 %; Eosinophils # (auto) 0.27 K/uL (0.00-0.50); Eosinophils % (auto) 6.5 %; Immature Granulocytes # (auto) 0.01 K/uL (0.01-0.20); Immature Granulocytes % (auto) 0.2 %; Lymphocytes % (auto) 40.8 %; Mean Corpuscular Volume 90.6 fL (80.0-100.0); Mean Platelet Volume 10.6 fL (9.4-12.4); Monocytes # (auto) 0.31 K/uL (0.11-0.59); Monocytes % (auto) 7.4 %; Neutrophils # (auto) 1.86 K/uL (1.40-6.50); Neutrophils % (auto) 44.6 %; Platelet Count 117 K/uL (130-400); RDW Coefficient of Variation 15.7 % (11.5-14.5); RDW Standard Deviation 51.3 fL (36.4-46.3); Red Blood Count 2.76 M/uL (4.20-5.40); White Blood Count 4.17 K/ul (4.8-10.8)
--- NOTE | 2023-12-07 07:04 | Hospitalist Progress Note ---
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 Does not have any hallucinations that she is aware of. Also denies seeing anyone or anything out the window (and even jokes because her room has a very tiny windowso she jokes about not really being able to see anything out of it), has not been talking to any pictures on her cell phone, or any of her other stereotyped hallucinationsat least as far as she can recollect. Is pleasant today. Wonders about discharge planning. When we discussed that we are trying to titrate medicines to try to help reduce the hallucinations in frequency/severity, she notes that it would certainly be nice if we could reduce the dysphoric intensity that they bringand I discussed that is a very valid goal as well. Ultimately she would like to be able to go back home with her sister. Hallucinations/delusions Resident physicians were able to benjamin collateral information from the family, and it sounds like she has unfortunately been quite dysphoric and unsafe at home. Titrating medications to try to suppress severity and frequency of hallucinations, today was a better day, although it is difficult to tell if that is progress, because her natural history is to have runs of good days and bad days. At the same time, she is not oversedatedincrease Risperdal slightly further and continue to follow. Because of her fall and shuffling gait, PT/OT eval and treat. 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 Pt doing well this morning. We discussed discharge planning at length including compromise between her, her medical care team, and her family. Review of Systems Review of Systems: As per HPI Physical Exam Physical Exam: Constitutional: well appearing, no acute distress HEENT: normocephalic, no conjunctival injection CV: clinically well perfused Respiratory: no increased work of breathing GI: soft, nondistended, positive bowel sounds MSK: no gross deformities noted Skin: warm, dry, no rashes Neuro: alert, oriented, no FND noted Psych: mood and affect congruent. Not responding to external stimuli. Results & Data Results & Data Vital Signs (Past 12 Hours) Vital Signs Temp Pulse Resp BP Pulse Ox O2 Del Method 12/06/23 20:32 36.7 C 64 16 113/71 97 Room Air Resident Activity Tracking Resident Involvement: Resident Care Provided Care Provided: Adult Hospital Medicine (1) UTI (urinary tract infection) Hematuria presence: without hematuria Urinary tract infection type: site unspecified Qualified Code(s): N39.0 - Urinary tract infection, site not specified (2) Altered mental state Altered mental status type: unspecified Qualified Code(s): R41.82 - Altered mental status, unspecified (6) Depression Depression Type: unspecified Qualified Code(s): F32.9 - Major depressive disorder, single episode, unspecified (8) Hypertension Hypertension type: essential hypertension Qualified Code(s): I10 - Essential (primary) hypertension (9) Anemia Anemia type: other cause Other causes of anemia: acute posthemorrhagic Qualified Code(s): D62 - Acute posthemorrhagic anemia
[2023-12-07 07:18] LABS: Albumin Globulin Ratio 1.3 (0.9-2); Albumin Level 3.1 gm/dl (3.4-5.0); BUN Creatinine Ratio 28.6 (10-20); Bilirubin,Total 0.3 mg/dl (0.2-1.0); Creatinine Clr Calc Pharmacy 53.9 ml/min; Est GFR (African American) 77.3 ml/min; Est GFR (Non-African American) 66.7 ml/min; Globulin 2.4 gm/dl (2.5-4.0); Potassium 3.9 mmol/L (3.5-5.1); Total Protein 5.5 gm/dl (6.0-8.3)
--- NOTE | 2023-12-07 19:35 | Billing Data ---
Date of Service December 07, 2023 Coding Level of Care Code 26512 SUB INP/OBS CARE MIN
[2023-12-07] MEDS: risperiDONE 0.5 MG TABLET PO SCH (20:53)
[2023-12-07] MEDS: MIRTAZAPINE SOLTAB 15 MG PO SCH (20:54)
[2023-12-07] MEDS: ACETAMINOPHEN 325 MG TAB PO PRN (23:37)
--- NOTE | 2023-12-08 07:23 | Hospitalist Progress Note ---
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 400 mg qAM ppx - pt appears at baseline in terms of mood/hallucinations/delusions/mental state; alert and oriented x4 - d/t continued improvement with mood in the setting of her delusions and lack of side effects with increasing the dose, will increase risperidone again to 2 mg BID; if tolerated well, will likely continue forward with this dose - continue home fluconazole, mirtazapine 45 mg nightly, quetiapine 100 mg nightly, and venlafaxine 225mg- explained to pt that mirtazapine is contributing to her increased appetite - placement remains an important consideration as it is unclear if she is able to return to her sister's house vs. SNF placement; will discuss with pt's sister/[id number] further Asymptomatic bacteriuria - treated in the ED with daptomycin x1; pt last grew MSSA in urine - blood cx neg; urine cx growing staph - will discontinue ABX at this point Afib - chronic, stable - continue with metoprolol 25 mg BID, eliquis 5 mg BID DM - Last HbA1c 7.9 during last admit - patient on Lantus 15 mg BID outpatient; will reduce to 10 mg SQ BID with SSI while inpatient HTN - continue home meds - continue lasix 20 mg PRN for weight gain or volume overload Anemia - chronic, stable Code: full VTE ppx: Eliquis 5 mg BID FENGI: Carb consistent, heart healthy Dispo: medsurg; unsure of dispo plan- back to sister's house vs. 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 Denies any hallucinations or delusions, but more importantly I definitely denies any feelings of fear/dysphoria/agitation. Vitals noted, in general she is awake and alert pleasant no distress. HEENT normocephalic atraumatic mucous membranes moist. Breathing unlabored no accessory muscle use good effort. Skin shows no rashes no pallor or icterus. Hallucinations/delusions Resident physicians were able to benjamin collateral information from the family, and it sounds like she has unfortunately been quite dysphoric and unsafe at home. Titrating medications to try to suppress severity and frequency of hallucinations, today Again a good day, although it is difficult to tell if that is progress, because her natural history is to have runs of good days and bad days, but titrating medications and having a string of good days without excess sedation is promising. still not oversedatedincrease Risperdal slightly further againand continue to follow. Because of her fall and shuffling gait, PT/OT eval and treat - did well w PT anticoagulated Subjective Pt is a 63 yo female with PMH of cryptococcal meningitis with residual hallucina tions/delusions, DM, Afib, cirrhosis, and depression/anxiety presenting to the hospital at [facility]'s urging d/t aggression/change in behavior. Pt doing well this AM. She has no concerns. She denies hallucinations and seeing things/people in her room. She does note that she is still talking to Will (of which she has a picture of him on her phone). She states that he tried to come visit her but the lockstitch front maker would not allow him in to visit. She insists he is real and would like to introduce him to me. She also has noticed that her appetite has increased. Review of Systems Review of Systems: As per HPI Physical Exam Physical Exam: Constitutional: well appearing, no acute distress HEENT: normocephalic, no conjunctival injection CV: clinically well perfused Respiratory: no increased work of breathing MSK: no gross deformities noted Skin: warm, dry, no rashes- facial bruising improving Neuro: alert, oriented, no FND noted Psych: mood and affect congruent Results & Data Results & Data Vital Signs (Past 12 Hours) Vital Signs Temp Pulse Resp BP Pulse Ox O2 Del Method 12/07/23 20:55 Room Air 12/07/23 20:48 36.7 C 67 18 133/77 99 Room Air Resident Activity Tracking Resident Involvement: Resident Care Provided Care Provided: Adult Hospital Medicine (1) UTI (urinary tract infection) Hematuria presence: without hematuria Urinary tract infection type: site unspecified Qualified Code(s): N39.0 - Urinary tract infection, site not specified (2) Altered mental state Altered mental status type: unspecified Qualified Code(s): R41.82 - Altered mental status, unspecified (6) Depression Depression Type: unspecified Qualified Code(s): F32.9 - Major depressive disorder, single episode, unspecified (8) Hypertension Hypertension type: essential hypertension Qualified Code(s): I10 - Essential (primary) hypertension (9) Anemia Anemia type: other cause Other causes of anemia: acute posthemorrhagic Qualified Code(s): D62 - Acute posthemorrhagic anemia
--- NOTE | 2023-12-08 16:48 | Billing Data ---
Date of Service December 08, 2023 Coding Level of Care Code 28889 SUB INP/OBS CARE MIN
[2023-12-08] MEDS: risperiDONE 2 MG TABLET PO SCH (20:08)
--- NOTE | 2023-12-09 08:54 | Hospitalist Progress Note ---
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 400 mg qAM ppx - pt appears at baseline in terms of mood/hallucinations/delusions/mental state; alert and oriented x4 - d/t continued improvement with mood in the setting of her delusions and lack of side effects with increasing the dose, will increase risperidone again to 2 mg BID; if tolerated well, will likely continue forward with this dose - continue home fluconazole, mirtazapine 45 mg nightly, quetiapine 100 mg nightly, and venlafaxine 225mg- explained to pt that mirtazapine is contributing to her increased appetite - placement remains an important consideration it was initially unclear, though presumed that dispo would be to her sister's and [id number]'s house as they are medical POA. -12/08: Received letter from law office (representing sister and [id number]-hrh) relinquishing medical POA/"decision making authority", and asking to "not contact them regarding [patient]." -Son is aware and would like to be present when patient is informed of letter. * CM aware: Anticipate renewed search for long-term care facility for now awaiting placement. Asymptomatic bacteriuria - treated in the ED with daptomycin x1; pt last grew MSSA in urine - blood cx neg; urine cx growing staph - ABX discontinued. Patient remains asymptomatic. Afib - chronic, stable - continue with metoprolol 25 mg BID, eliquis 5 mg BID DM - Last HbA1c 7.9 during last admit - patient on Lantus 15 mg BID outpatient; will reduce to 10 mg SQ BID with SSI while inpatient HTN - continue home meds - continue lasix 20 mg PRN for weight gain or volume overload Anemia - chronic, stable Code: full VTE ppx: Eliquis 5 mg BID FEN/GI: Carb consistent, heart healthy Dispo: MedSurg; likely awaiting placement to SNF (given sister's relinquishing of medical POA/decision making authority) (2) Altered mental state: (3) Paroxysmal A-fib: (4) Uncontrolled type 2 diabetes mellitus with hyperglycemia, with long-term current use of insulin: (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 Shows me a picture of will. Denies any dysphoric symptoms today, and denies excess sedation.. Vitals noted, in general she is awake and alert pleasant no distress. HEENT normocephalic atraumatic mucous membranes moist. Breathing unlabored no accessory muscle use good effort. Skin shows no rashes no pallor or icterus. Hallucinations/delusions Resident physicians were able to benjamin collateral information from the family, and it sounds like she has unfortunately been quite dysphoric and unsafe at home. Titrating medications to try to suppress severity and frequency of hallucinations, today Again a good day, although it is difficult to tell if that is progress, because her natural history is to have runs of good days and bad days, but titrating medications and having a string of good days without excess sedation is promising. still not oversedated But will systolic current Risperdal dose. Disposition will be quite difficultfamily that was her POA send us legal paperwork rescinding their decision maker status, continue to work with her son Sushant. 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 Patient seated upright in bed with feet on the ground this morning. She denies hallucinations though admits to speaking to "Will" once today. She is ambulating without difficulty, tolerating food well and has no overall complaints. She is just looking forward to going home. Review of Systems Review of Systems: All systems reviewed & are unremarkable except as noted in HPI & below Physical Exam Physical Exam: General: no acute distress, speaking in full sentences Resp: good inspiratory effort, no labored breathing HEENT: conjunctivae appear clear, no audible congestion, no swelling noted face or lips Skin: skin appears dry, normal coloration, healing bruises on the face Neuro: alert and oriented x3, no focal deficits appreciated Psych: euthymic affect, pleasant and interactive, logical thought process Results & Data Results & Data Vital Signs (Past 12 Hours) Vital Signs Temp Pulse Resp BP Pulse Ox O2 Del Method 12/09/23 07:28 36.6 C 64 16 125/74 97 Room Air Resident Activity Tracking Resident Involvement: Resident Care Provided Care Provided: Adult Hospital Medicine (1) UTI (urinary tract infection) Hematuria presence: without hematuria Urinary tract infection type: site unspecified Qualified Code(s): N39.0 - Urinary tract infection, site not specified (2) Altered mental state Altered mental status type: unspecified Qualified Code(s): R41.82 - Altered mental status, unspecified (6) Depression Depression Type: unspecified Qualified Code(s): F32.9 - Major depressive disorder, single episode, unspecified (8) Hypertension Hypertension type: essential hypertension Qualified Code(s): I10 - Essential (primary) hypertension (9) Anemia Anemia type: other cause Other causes of anemia: acute posthemorrhagic Qualified Code(s): D62 - Acute posthemorrhagic anemia
[2023-12-09] MEDS: ONDANSETRON INJ 2 MG/ML 2 ML VIAL IV PRN (13:24)
--- NOTE | 2023-12-09 18:53 | Billing Data ---
Date of Service December 09, 2023 Coding Level of Care Code 58899 SUB INP/OBS CARE
--- NOTE | 2023-12-10 10:55 | Hospitalist Progress Note ---
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 400 mg qAM ppx - pt appears at baseline in terms of mood/hallucinations/delusions/mental state; alert and oriented x4 - d/t continued improvement with mood in the setting of her delusions and lack of side effects with increasing the dose, will increase risperidone again to 2 mg BID; if tolerated well, will likely continue forward with this dose - continue home fluconazole, mirtazapine 45 mg nightly, quetiapine 100 mg nightly, and venlafaxine 225mg- explained to pt that mirtazapine is contributing to her increased appetite - placement remains an important consideration it was initially unclear, though presumed that dispo would be to her sister's and opvlpbh-mt-ssx's house as they are medical POA. -12/08: Received letter from law office (representing sister and [id number]) relinquishing medical POA/"decision making authority", and asking to "not contact them regarding [patient]." -Informed patient with son present * CM aware: Anticipate renewed search for long-term care facility for now, awaiting placement. Asymptomatic bacteriuria - treated in the ED with daptomycin x1; pt last grew MSSA in urine - blood cx neg; urine cx growing staph - ABX discontinued. Patient remains asymptomatic. Afib - chronic, stable - continue with metoprolol 25 mg BID, eliquis 5 mg BID DM - Last HbA1c 7.9 during last admit - patient on Lantus 15 mg BID outpatient; will reduce to 10 mg SQ BID with SSI while inpatient HTN - continue home meds - continue lasix 20 mg PRN for weight gain or volume overload Anemia - chronic, stable Code: full VTE ppx: Eliquis 5 mg BID FEN/GI: Carb consistent, heart healthy Dispo: MedSurg; likely awaiting placement to SNF (given sister's relinquishing of medical POA/decision making authority) (2) Altered mental state: (3) Paroxysmal A-fib: (4) Uncontrolled type 2 diabetes mellitus with hyperglycemia, with long-term current use of insulin: (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 Vitals noted, in general she appears in no distress. HEENT normocephalic abrasions healing mucous membranes moist. Breathing unlabored no accessory muscle use good spontaneous effort. Skin shows no rashes no pallor or icterus. Hallucinations/delusions Resident physicians were able to benjamin collateral information from the family, and it sounds like she has unfortunately been quite dysphoric and unsafe at home. Titrating medications to try to suppress severity and frequency of hallucinations. continue to follow. working on dispo - which will be difficult given that her family that was her POA has rescinded POA status and seems to not have the ability to care for her at home, some of the family seem to want her in a locked unit, which I am not entirely sure is necessaryespecially given that there are plenty of days where she does not at all seem to be a risk; her adult children will have to assume assistance in the decision making a role for her/with her given that her capacity waxes and wanes. anticoagulated Sushant arrived. Extensive discussion. Disposition is going to be quite difficult. His family that has rescinded their POA has unfortunately also created a wedge in the family overall altering the family dynamic for the worse. She and himself is unable to take care of of the patient in his own home due to a number of issues that are extremely reasonable and understandable. Likely we will need to look for some sort of placement again. 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 Patient seated upright in bed with feet on the ground this morning. She continues to ambulate without difficulty, tolerate food well. She is still looking forward to going home. Review of Systems Review of Systems: All systems reviewed & are unremarkable except as noted in HPI & below Physical Exam Physical Exam: General: no acute distress, speaking in full sentences Resp: good inspiratory effort, no labored breathing HEENT: conjunctivae appear clear, no audible congestion, no swelling noted face or lips Skin: skin appears dry, normal coloration, no rash visible on exposed skin areas Neuro: alert and oriented x3, no focal deficits appreciated Psych: euthymic affect, pleasant and interactive, logical thought process Results & Data Results & Data Vital Signs (Past 12 Hours) Vital Signs Temp Pulse Resp BP Pulse Ox O2 Del Method 12/10/23 07:32 36.7 C 64 16 124/73 98 Room Air Resident Activity Tracking Resident Involvement: Resident Care Provided Care Provided: Adult Hospital Medicine (1) UTI (urinary tract infection) Hematuria presence: without hematuria Urinary tract infection type: site unspecified Qualified Code(s): N39.0 - Urinary tract infection, site not specified (2) Altered mental state Altered mental status type: unspecified Qualified Code(s): R41.82 - Altered mental status, unspecified (6) Depression Depression Type: unspecified Qualified Code(s): F32.9 - Major depressive disorder, single episode, unspecified (8) Hypertension Hypertension type: essential hypertension Qualified Code(s): I10 - Essential (primary) hypertension (9) Anemia Anemia type: other cause Other causes of anemia: acute posthemorrhagic Qualified Code(s): D62 - Acute posthemorrhagic anemia
--- NOTE | 2023-12-10 15:11 | Billing Data ---
Date of Service December 10, 2023 Coding Level of Care Code 22616 SUB INP/OBS CARE
[2023-12-10] MEDS: LANTUS PER UNIT CHARGE SQ SCH (20:19)
--- NOTE | 2023-12-11 11:33 | Hospitalist Progress Note ---
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 - continue home fluconazole, mirtazapine 45 mg nightly, quetiapine 100 mg nightly, and venlafaxine 225mg- explained to pt that mirtazapine is contributing to her increased appetite - placement remains an important consideration it was initially unclear, though presumed that dispo would be to her sister's and pnqaege-cq-nul's house as they are medical POA. -12/08: Received letter from law office (representing sister and [id number]) relinquishing medical POA/"decision making authority", and asking to "not contact them regarding [patient]." -Informed patient with son present. * CM also aware: Anticipate renewed search for long-term care facility for now, awaiting placement. * Continue adjusted med regimen: Risperdal 2 mg p.o. twice daily, mirtazapine 45 mg p.o. nightly, quetiapine 100 mg p.o. nightly, and venlafaxine 225 mg p.o. nightly. Asymptomatic bacteriuria - treated in the ED with daptomycin x1; pt last grew MSSA in urine - blood cx neg; urine cx growing staph - ABX discontinued. Patient remains asymptomatic. * Continue to monitor Afib - chronic, stable - continue with metoprolol 25 mg BID, Eliquis 5 mg BID DM - Last HbA1c 7.9 during last admit - patient on Lantus 15 mg BID outpatient; will reduce to 10 mg SQ BID with SSI while inpatient HTN - continue home meds - continue lasix 20 mg PRN for weight gain or volume overload Anemia - chronic, stable Code: full VTE ppx: Eliquis 5 mg BID FEN/GI: Carb consistent, heart healthy Dispo: MedSurg; likely awaiting placement to SNF (given sister's relinquishing of medical POA/decision-making authority) (2) Altered mental state: (3) Paroxysmal A-fib: (4) Uncontrolled type 2 diabetes mellitus with hyperglycemia, with long-term current use of insulin: (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 Discussed that my recommendation would be trying to find personal care. She is very upset about this. Vitals noted, physically she is in no distress, she is sitting in her room with the picture of "Will" on her tablet facing her and she is looking at it whenever I enter the room, although I do not see her conversing with it. The reindeer is off and on her counter. Does not seem to respond to any external stimuli, however. Face is healing. Breathing unlabored no accessory muscle use. No focal neurodeficits. Hallucinations/delusions Unfortunately seems to be late, and probably permanent, sequelae from her cryptococcal meningitis. When she was seen in the fall, initial concern was whether or not there was reactivation, but after extensive workup including infectious disease, it was deemed quite unlikely; also while labs were pending, she had been resumed on flucytosine and Amphotericin and had rather significant renal and marrow fall out. All on top of that, unfortunately this does really just seem to be from the infection, more in terms of brain dysfunction/scarring/chronic changes, rather than due to acute infection (for the record she also did not seem to have any hallucinations or delusions when she was here with the initial acute infection). Utilizing antipsychotics to try to suppress hallucinations and delusions, and suppress the dysphoria that comes with some, although I have been very open with patient and family that I would be very surprised if we can actually get things to go away. Disposition will be quite difficulther sister and ipifdfw-[id number] that she was living with have rescinded their POA, and clearly are not comfortable with her being with them, living with her son is not an option for several very understandable reasons, and she likely will require personal care again. 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 Patient seated upright in bed with feet on the ground, eating breakfast. She has no complaints. Review of Systems Review of Systems: All systems reviewed & are unremarkable except as noted in HPI & below Physical Exam Physical Exam: General: no acute distress, speaking in full sentences Resp: good inspiratory effort, no labored breathing HEENT: conjunctivae appear clear, no audible congestion, facial bruise continues to improve Skin: skin appears dry, normal coloration, no rash visible on exposed skin areas Neuro: alert and oriented x3, no focal deficits appreciated Psych: euthymic affect, pleasant and interactive, logical thought process Results & Data Results & Data Vital Signs (Past 12 Hours) Vital Signs Temp Pulse Resp BP Pulse Ox O2 Del Method 12/11/23 07:38 36.7 C 66 16 129/82 99 Room Air Resident Activity Tracking Resident Involvement: Resident Care Provided Care Provided: Adult Hospital Medicine (1) UTI (urinary tract infection) Hematuria presence: without hematuria Urinary tract infection type: site unspecified Qualified Code(s): N39.0 - Urinary tract infection, site not specified (2) Altered mental state Altered mental status type: unspecified Qualified Code(s): R41.82 - Altered mental status, unspecified (6) Depression Depression Type: unspecified Qualified Code(s): F32.9 - Major depressive disorder, single episode, unspecified (8) Hypertension Hypertension type: essential hypertension Qualified Code(s): I10 - Essential (primary) hypertension (9) Anemia Anemia type: other cause Other causes of anemia: acute posthemorrhagic Qualified Code(s): D62 - Acute posthemorrhagic anemia
--- NOTE | 2023-12-11 18:02 | Billing Data ---
Date of Service December 11, 2023 Coding Level of Care Code 09722 SUB INP/OBS CARE MIN
--- NOTE | 2023-12-12 06:58 | Hospitalist Progress Note ---
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 400 mg qAM ppx - pt appears at baseline in terms of mood/hallucinations/delusions/mental state; alert and oriented x4 - d/t continued improvement with mood in the setting of her delusions and lack of side effects with increasing the dose increased risperidone to 2 mg BID, which patient tolerated well; will continue to monitor pt's alertness to determine if a dose decrease is necessary - continue home fluconazole, mirtazapine 45 mg nightly, quetiapine 100 mg nightly, and venlafaxine 225mg- explained to pt that mirtazapine is contributing to her increased appetite - placement remains an important consideration it was initially unclear, though presumed that dispo would be to her sister's and wiznikm-bi-lrz's house as they are medical POA. -12/08: Received letter from law office (representing sister and wizzqof-ze-gnb) relinquishing medical POA/"decision making authority", and asking to "not contact them regarding [patient]." -Informed patient with son present. * CM also aware: Anticipate renewed search for long-term care facility- awaiting placement. * Continue adjusted med regimen: Risperdal 2 mg p.o. twice daily, mirtazapine 45 mg p.o. nightly, quetiapine 100 mg p.o. nightly, and venlafaxine 225 mg p.o. nightly. Asymptomatic bacteriuria - treated in the ED with daptomycin x1; pt last grew MSSA in urine - blood cx neg; urine cx growing staph - ABX discontinued. Patient remains asymptomatic. * Continue to monitor Afib - chronic, stable - continue with metoprolol 25 mg BID, Eliquis 5 mg BID DM - Last HbA1c 7.9 during last admit - patient on Lantus 15 mg BID outpatient; will reduce to 10 mg SQ BID with SSI while inpatient HTN - continue home meds - continue lasix 20 mg PRN for weight gain or volume overload Anemia - chronic, stable Code: full VTE ppx: Eliquis 5 mg BID FEN/GI: Carb consistent, heart healthy Dispo: Med/surg; awaiting placement to SNF (given sister's relinquishing of medical POA/decision-making authority) (2) Altered mental state: (3) Paroxysmal A-fib: (4) Uncontrolled type 2 diabetes mellitus with hyperglycemia, with long-term current use of insulin: (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 I agree with the impression and plan in the resident documentation, and as summarized below. Upon our late morning exam, the patient is seated bedside eating lunch. She has no complaints this morning. EXAM Hemodynamically stable, afebrile Alert and oriented. Pleasant. Respirations nonlabored IMPRESSION & PLAN I agree the impression and plan as noted in the resident documentation above. Seems to doing well on current medications; if increased daytime somnolence, could decrease a.m. Risperdal. She does seem to be sleeping well with p.m. dose. Case management continues to work on bed search; patient is aware. 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 Pt doing well this morning. She does note that she feels slightly groggy this AM. Review of Systems Review of Systems: As per HPI Physical Exam Physical Exam: Constitutional: well appearing, no acute distress HEENT: normocephalic, no conjunctival injection CV: clinically well perfused Respiratory: no increased work of breathing MSK: no gross deformities noted Skin: warm, dry, no rashes Neuro: alert, oriented, no FND noted Psych: mood and affect congruent Results & Data Results & Data Vital Signs (Past 12 Hours) Vital Signs Temp Pulse Resp BP Pulse Ox O2 Del Method 12/11/23 20:13 36.7 C 66 16 145/92 H 96 Room Air Resident Activity Tracking Resident Involvement: Resident Care Provided Care Provided: Adult Hospital Medicine (1) UTI (urinary tract infection) Hematuria presence: without hematuria Urinary tract infection type: site unspecified Qualified Code(s): N39.0 - Urinary tract infection, site not specified (2) Altered mental state Altered mental status type: unspecified Qualified Code(s): R41.82 - Altered mental status, unspecified (6) Depression Depression Type: unspecified Qualified Code(s): F32.9 - Major depressive disorder, single episode, unspecified (8) Hypertension Hypertension type: essential hypertension Qualified Code(s): I10 - Essential (primary) hypertension (9) Anemia Anemia type: other cause Other causes of anemia: acute posthemorrhagic Qualified Code(s): D62 - Acute posthemorrhagic anemia
--- NOTE | 2023-12-13 06:47 | Hospitalist Progress Note ---
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 400 mg qAM ppx - pt appears at baseline in terms of mood/hallucinations/delusions/mental state; alert and oriented x4 - d/t continued improvement with mood in the setting of her delusions and lack of side effects with increasing the dose increased risperidone to 2 mg BID, which patient tolerated well; will continue to monitor pt's alertness to determine if a dose decrease is necessary - continue home fluconazole, mirtazapine 45 mg nightly, quetiapine 100 mg nightly, and venlafaxine 225mg- explained to pt that mirtazapine is contributing to her increased appetite - placement remains an important consideration it was initially unclear, though presumed that dispo would be to her sister's and uqwqtpg-vg-skd's house as they are medical POA. -12/08: Received letter from law office (representing sister and [id number]-ivr) relinquishing medical POA/"decision making authority", and asking to "not contact them regarding [patient]." -Informed patient with son present. * CM also aware: Anticipate renewed search for long-term care facility- awaiting placement. * Continue adjusted med regimen: Risperdal 2 mg p.o. twice daily, mirtazapine 45 mg p.o. nightly, quetiapine 100 mg p.o. nightly, and venlafaxine 225 mg p.o. nightly. Asymptomatic bacteriuria - treated in the ED with daptomycin x1; pt last grew MSSA in urine - blood cx neg; urine cx growing staph - ABX discontinued. Patient remains asymptomatic. Afib - chronic, stable - continue with metoprolol 25 mg BID, Eliquis 5 mg BID DM - Last HbA1c 7.9 during last admit - patient on Lantus 15 mg BID outpatient; will reduce to 10 mg SQ BID with SSI while inpatient HTN - continue home meds - continue lasix 20 mg PRN for weight gain or volume overload Anemia - chronic, stable Code: full VTE ppx: Eliquis 5 mg BID FEN/GI: Carb consistent, heart healthy Dispo: Med/surg; awaiting placement to SNF (given sister's relinquishing of medical POA/decision-making authority) (2) Altered mental state: (3) Paroxysmal A-fib: (4) Uncontrolled type 2 diabetes mellitus with hyperglycemia, with long-term current use of insulin: (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 I agree with the impression and plan in the resident documentation, and as summarized below. Upon our morning exam, the patient is seated in bed. She has no complaints. She feels well this morning; the sleepiness she had yesterday is not present today. EXAM Hemodynamically stable, afebrile Alert and oriented. Pleasant. Respirations nonlabored IMPRESSION & PLAN I agree the impression and plan as noted in the resident documentation above. Doing well on current medications; if increased daytime somnolence, could decrease a.m. Risperdal. She does seem to be sleeping well with p.m. dose. Case management continues to work on bed search; patient is aware. 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 Pt doing well this AM. No new concerns. She does ask if she would be able to go home if Will (her boyfriend that appears to be a delusion) agrees to watch over her at home. Review of Systems Review of Systems: As per HPI Physical Exam Physical Exam: Constitutional: well appearing, no acute distress HEENT: normocephalic, no conjunctival injection CV: clincally well perfused Respiratory: no increased work of breathing MSK: no gross deformities noted Skin: warm, dry, no rashes Neuro: alert, oriented, no FND noted Psych: mood and affect congruent; does not appear to be responding to external stimuli Results & Data Results & Data Vital Signs (Past 12 Hours) Vital Signs Temp Pulse Resp BP Pulse Ox O2 Del Method 12/12/23 20:24 36.7 C 75 16 132/79 98 Room Air Resident Activity Tracking Resident Involvement: Resident Care Provided Care Provided: Adult Hospital Medicine (1) UTI (urinary tract infection) Hematuria presence: without hematuria Urinary tract infection type: site unspecified Qualified Code(s): N39.0 - Urinary tract infection, site not specified (2) Altered mental state Altered mental status type: unspecified Qualified Code(s): R41.82 - Altered mental status, unspecified (6) Depression Depression Type: unspecified Qualified Code(s): F32.9 - Major depressive disorder, single episode, unspecified (8) Hypertension Hypertension type: essential hypertension Qualified Code(s): I10 - Essential (primary) hypertension (9) Anemia Anemia type: other cause Other causes of anemia: acute posthemorrhagic Qualified Code(s): D62 - Acute posthemorrhagic anemia
--- NOTE | 2023-12-14 07:08 | Hospitalist Progress Note ---
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 400 mg qAM ppx - pt appears at baseline in terms of mood/hallucinations/delusions/mental state; alert and oriented x4 - d/t continued improvement with mood in the setting of her delusions and lack of side effects with increasing the dose increased risperidone to 2 mg BID, which patient tolerated well; will continue to monitor pt's alertness to determine if a dose decrease is necessary - continue home fluconazole, mirtazapine 45 mg nightly, quetiapine 100 mg nightly, and venlafaxine 225mg- explained to pt that mirtazapine is contributing to her increased appetite - placement remains an important consideration it was initially unclear, though presumed that dispo would be to her sister's and ucvshvq-zq-fhe's house as they are medical POA. -12/08: Received letter from law office (representing sister and [id number]) relinquishing medical POA/"decision making authority", and asking to "not contact them regarding [patient]." -Informed patient with son present. * CM also aware: renewed search for long-term care facility- awaiting placement * Continue adjusted med regimen: Risperdal 2 mg p.o. twice daily, mirtazapine 45 mg p.o. nightly, quetiapine 100 mg p.o. nightly, and venlafaxine 225 mg p.o. nightly Asymptomatic bacteriuria - treated in the ED with daptomycin x1; pt last grew MSSA in urine - blood cx neg; urine cx growing staph - ABX discontinued. Patient remains asymptomatic. Afib - chronic, stable - continue with metoprolol 25 mg BID, Eliquis 5 mg BID DM - Last HbA1c 7.9 during last admit - patient on Lantus 15 mg BID outpatient; will reduce to 10 mg SQ BID with SSI while inpatient HTN - continue home meds - continue lasix 20 mg PRN for weight gain or volume overload Anemia - chronic, stable Code: full VTE ppx: Eliquis 5 mg BID FEN/GI: Carb consistent, heart healthy Dispo: Med/surg; awaiting placement to SNF- [facility] to [facility] (2) Altered mental state: (3) Paroxysmal A-fib: (4) Uncontrolled type 2 diabetes mellitus with hyperglycemia, with long-term current use of insulin: (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 I agree with the impression and plan in the resident documentation, and as summarized below. Upon our MID morning exam, the patient is seated in bed. She has no complaints. Again slept well. EXAM 140/73, 60, 18, 36.5, 97% on room air Alert and oriented. Pleasant. Respirations nonlabored IMPRESSION & PLAN I agree the impression and plan as noted in the resident documentation above. Continue current medications Case management continues to work on bed search; patient is aware. 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 Pt the same this morning. No new concerns; she does mention that her niece is getting a certification to be a home health aid in order to help take care of her. She also questions whether or not she could be discharged with a "fiance" as she says her and Will (her boyfriend that appears to be a delusion) have begun looking at houses. Review of Systems Review of Systems: As per HPI Physical Exam Physical Exam: Constitutional: well appearing, no acute distress HEENT: normocephalic, no conjunctival injection CV: clinically well perfused Respiratory: no increased work of breathing MSK: no gross deformities noted Skin: warm, dry, no rashes Neuro: alert, oriented, no FND noted Psych: mood and affect congruent Results & Data Results & Data Vital Signs (Past 12 Hours) Vital Signs Temp Pulse Resp BP Pulse Ox O2 Del Method 12/13/23 20:10 Room Air 12/13/23 19:58 36.7 C 76 16 135/83 100 Room Air Resident Activity Tracking Resident Involvement: Resident Care Provided Care Provided: Adult Hospital Medicine (1) UTI (urinary tract infection) Hematuria presence: without hematuria Urinary tract infection type: site unspecified Qualified Code(s): N39.0 - Urinary tract infection, site not specified (2) Altered mental state Altered mental status type: unspecified Qualified Code(s): R41.82 - Altered mental status, unspecified (6) Depression Depression Type: unspecified Qualified Code(s): F32.9 - Major depressive disorder, single episode, unspecified (8) Hypertension Hypertension type: essential hypertension Qualified Code(s): I10 - Essential (primary) hypertension (9) Anemia Anemia type: other cause Other causes of anemia: acute posthemorrhagic Qualified Code(s): D62 - Acute posthemorrhagic anemia
--- NOTE | 2023-12-15 07:17 | Hospitalist Progress Note ---
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 400 mg qAM ppx - pt appears at baseline in terms of mood/hallucinations/delusions/mental state; alert and oriented x4 - d/t continued improvement with mood in the setting of her delusions and lack of side effects with increasing the dose increased risperidone to 2 mg BID, which patient tolerated well; will continue to monitor pt's alertness to determine if a dose decrease is necessary - continue home fluconazole, mirtazapine 45 mg nightly, quetiapine 100 mg nightly, and venlafaxine 225mg- explained to pt that mirtazapine is contributing to her increased appetite - placement remains an important consideration it was initially unclear, though presumed that dispo would be to her sister's and [id number]'s house as they are medical POA. -12/08: Received letter from law office (representing sister and [id number]) relinquishing medical POA/"decision making authority", and asking to "not contact them regarding [patient]." -Informed patient with son present. * CM also aware: renewed search for long-term care facility- awaiting placement * Continue adjusted med regimen: Risperdal 2 mg p.o. twice daily, mirtazapine 45 mg p.o. nightly, quetiapine 100 mg p.o. nightly, and venlafaxine 225 mg p.o. nightly Asymptomatic bacteriuria - treated in the ED with daptomycin x1; pt last grew MSSA in urine - blood cx neg; urine cx growing staph - ABX discontinued. Patient remains asymptomatic. 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 I agree with the impression and plan in the resident documentation, and as summarized below. No new complaints today. Sleeping well. EXAM 116/71, 71, 18, 90% room air Alert and oriented. Pleasant. Respirations nonlabored DATA Hemoglobin trending up, now at 9.9. BUN 35, creatinine 0.98 IMPRESSION & PLAN I agree the impression and plan as noted in the resident documentation above. Continue current medications Case management continues to work on bed search; patient is aware. 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 Pt doing well this AM. No new concerns- sleeping and eating well. Review of Systems Review of Systems: As per HPI Physical Exam Physical Exam: Constitutional: well appearing, no acute distress HEENT: normocephalic, no conjunctival injection CV: clinically well perfused Respiratory: no increased work of breathing MSK: no gross deformities noted Skin: warm, dry, no rashes Neuro: alert, oriented, no FND noted Psych: mood and affect congruent Results & Data Results & Data Vital Signs (Past 12 Hours) Vital Signs Temp Pulse Resp BP Pulse Ox O2 Del Method 12/15/23 07:12 36.6 C 72 18 121/81 98 Room Air 12/14/23 20:59 36.7 C 78 18 144/83 H 99 Room Air Resident Activity Tracking Resident Involvement: Resident Care Provided Care Provided: Adult Hospital Medicine (1) UTI (urinary tract infection) Hematuria presence: without hematuria Urinary tract infection type: site unspecified Qualified Code(s): N39.0 - Urinary tract infection, site not specified (2) Altered mental state Altered mental status type: unspecified Qualified Code(s): R41.82 - Altered mental status, unspecified (6) Depression Depression Type: unspecified Qualified Code(s): F32.9 - Major depressive disorder, single episode, unspecified (8) Hypertension Hypertension type: essential hypertension Qualified Code(s): I10 - Essential (primary) hypertension (9) Anemia Anemia type: other cause Other causes of anemia: acute posthemorrhagic Qualified Code(s): D62 - Acute posthemorrhagic anemia
[2023-12-15 07:40] LABS: Hematocrit (blood only) 31.7 % (37.0-47.0); Hemoglobin 9.9 g/dl (12.0-16.0); Mean Corpuscular Hemoglobin 28.3 pg (25.0-34.0); Mean Corpuscular Hgb Conc 31.2 g/dL (32.0-36.0); Mean Corpuscular Volume 90.6 fL (80.0-100.0); Mean Platelet Volume 10.5 fL (9.4-12.4); Platelet Count 183 K/uL (130-400); RDW Coefficient of Variation 15.4 % (11.5-14.5); RDW Standard Deviation 50.4 fL (36.4-46.3); White Blood Count 6.39 K/ul (4.8-10.8)
[2023-12-15 07:59] LABS: BUN Creatinine Ratio 35.7 (10-20); Calcium 9.4 mg/dl (8.6-10.3); Creatinine Clr Calc Pharmacy 50.1 ml/min; Est GFR (African American) 70.7 ml/min; Potassium 4.4 mmol/L (3.5-5.1)
--- NOTE | 2023-12-16 07:51 | Hospitalist Progress Note ---
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 400 mg qAM ppx - pt appears at baseline in terms of mood/hallucinations/delusions/mental state; alert and oriented x4 - d/t continued improvement with mood in the setting of her delusions and lack of side effects with increasing the dose increased risperidone to 2 mg BID, which patient tolerated well; will continue to monitor pt's alertness to determine if a dose decrease is necessary - continue home fluconazole, mirtazapine 45 mg nightly, quetiapine 100 mg nightly, and venlafaxine 225mg- explained to pt that mirtazapine is contributing to her increased appetite - placement remains an important consideration it was initially unclear, though presumed that dispo would be to her sister's and [id number]'s house as they are medical POA. -12/08: Received letter from law office (representing sister and [id number]) relinquishing medical POA/"decision making authority", and asking to "not contact them regarding [patient]." -Informed patient with son present. -Awaiting CM referral to multiple personal care homes able to accept patient. * CM also aware: renewed search for long-term care facility- awaiting placement * Continue adjusted med regimen: Risperdal 2 mg p.o. twice daily, mirtazapine 45 mg p.o. nightly, quetiapine 100 mg p.o. nightly, and venlafaxine 225 mg p.o. nightly Asymptomatic bacteriuria - treated in the ED with daptomycin x1; pt last grew MSSA in urine - blood cx neg; urine cx growing staph - ABX discontinued. Patient remains asymptomatic. Afib - chronic, stable - continue with metoprolol 25 mg BID, Eliquis 5 mg BID DM - Last HbA1c 7.9 during last admit - patient on Lantus 15 mg BID outpatient; will reduce to 10 mg SQ BID with SSI while inpatient HTN - continue home medications. 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 Macias. 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 Subjective Patient is seated at bedside on her tablet. She is in no acute distress. She has no acute complaints or concerns. She does mention that she is "looking into purchasing a house" and would like to know if it would be possible to allow her to leave temporarily to go house hunting. She has not mentioned her partner "Will" today (Will is believed to be an imaginary boyfriend of hers that does not exist). Review of Systems Review of Systems: All systems reviewed & are unremarkable except as noted in HPI & below Physical Exam Physical Exam: General: no acute distress Resp: good inspiratory effort, no labored breathing HEENT: conjunctivae appear clear, no audible congestion, facial bruise continues to improve Skin: skin appears dry, normal coloration, no rash visible on exposed skin areas Neuro: alert and oriented x3, no focal deficits appreciated Psych: euthymic affect, pleasant and interactive, logical thought process Resident Activity Tracking Resident Involvement: Resident Care Provided Care Provided: Adult Hospital Medicine (1) UTI (urinary tract infection) Hematuria presence: without hematuria Urinary tract infection type: site unspecified Qualified Code(s): N39.0 - Urinary tract infection, site not sp ecified (2) Altered mental state Altered mental status type: unspecified Qualified Code(s): R41.82 - Altered mental status, unspecified (6) Depression Depression Type: unspecified Qualified Code(s): F32.9 - Major depressive disorder, single episode, unspecified (8) Hypertension Hypertension type: essential hypertension Qualified Code(s): I10 - Essential (primary) hypertension (9) Anemia Anemia type: other cause Other causes of anemia: acute posthemorrhagic Quali fied Code(s): D62 - Acute posthemorrhagic anemia
--- NOTE | 2023-12-17 06:53 | Hospitalist Progress Note ---
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 twice daily, mirtazapine 45 mg p.o. nightly, quetiapine 100 mg p.o. nightly, and venlafaxine 225 mg p.o. nightly Need for [facility] care facility - placement remains an important consideration it was initially unclear, though presumed that dispo would be to her sister's and [id number]-[id number]'s house as they are medical POA. -12/08: Received letter from law office (representing sister and [id number]) relinquishing medical POA/"decision making authority", and asking to "not contact them regarding [patient]." -Informed patient with son present. -Awaiting CM referral to multiple personal care homes able to accept patient. * CM also aware: renewed search for long-term care facility- awaiting placement Asymptomatic bacteriuria - treated in the ED with daptomycin x1; pt last grew MSSA in urine - blood cx neg; urine cx growing staph - ABX discontinued. Patient remains asymptomatic. Afib - chronic, stable - continue with metoprolol 25 mg BID, Eliquis 5 mg BID DM - Last HbA1c 7.9 during last admit - patient on Lantus 15 mg BID outpatient; will reduce to 10 mg SQ BID with SSI while inpatient HTN - continue home medications. 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 Augustin. No new complaints. Awaiting correction placement. Subjective Patient seen at bedside, calm comfortable cooperative. Per nursing no acute events overnight. Patient states she slept well, ok appetite but toast too hard, no SOB N/V D/C pain. Patient noted to have scabs on nasal bridge and upper lip, states they are well healing she is picking at them. AAOx3. Physical Exam Constitutional: WD/WN, vitals as above Eyes: PERRL, conjunctivae normal, anicteric sclerae ENMT: external ear and nose normal, oropharynx normal Respiratory: normal respiratory effort, lungs clear to auscultation Cardiovascular: Rate/Rhythm: regular rate and regular rhythm Heart Sounds: normal S1 and normal S2 Gastrointestinal (Abdomen): Inspection/Auscultation: abdomen normal to inspection Percussion/Palpation: abdomen soft; abdomen nontender Skin: healing excoriations on nasal bridge and upper lip Results & Data Results & Data Vital Signs (Past 12 Hours) Vital Signs Temp Pulse Resp BP Pulse Ox O2 Del Method 12/16/23 20:02 37.1 C 74 18 133/84 99 Room Air Resident Activity Tracking Resident Involvement: Resident Care Provided Care Provided: Adult Hospital Medicine (1) UTI (urinary tract infection) Hematuria presence: without hematuria Urinary tract infection type: site unspecified Qualified Code(s): N39.0 - Urinary tract infection, site not specified (2) Altered mental state Altered mental status type: unspecified Qualified Code(s): R41.82 - Altered mental status, unspecified (6) Depression Depression Type: unspecified Qualified Code(s): F32.9 - Major depressive disorder, single episode, unspecified (8) Hypertension Hypertension type: essential hypertension Qualified Code(s): I10 - Essential (primary) hypertension (9) Anemia Anemia type: other cause Other causes of anemia: acute posthemorrhagic Qualified Code(s): D62 - Acute posthemorrhagic anemia
--- NOTE | 2023-12-18 07:21 | Hospitalist Progress Note ---
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 twice daily, mirtazapine 45 mg p.o. nightly, quetiapine 100 mg p.o. nightly, and venlafaxine 225 mg p.o. nightly Need for [facility] care facility - placement remains an important consideration it was initially unclear, though presumed that dispo would be to her sister's and [id number]'s house as they are medical POA. -12/08: Received letter from law office (representing sister and [id number]) relinquishing medical POA/"decision making authority", and asking to "not contact them regarding [patient]." -Informed patient with son present. -Awaiting CM referral to multiple personal care homes able to accept patient. * CM also aware: renewed search for long-term care facility- awaiting placement Asymptomatic bacteriuria - treated in the ED with daptomycin x1; pt last grew MSSA in urine - blood cx neg; urine cx growing staph - ABX discontinued. Patient remains asymptomatic. Afib - chronic, stable - continue with metoprolol 25 mg BID, Eliquis 5 mg BID DM - Last HbA1c 7.9 during last admit - patient on Lantus 15 mg BID outpatient; will reduce to 10 mg SQ BID with SSI while inpatient HTN - continue home medications. 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 Augustin. No new complaints. Awaiting ad terminal makeup operator placement. Subjective Patient seen at bedside, calm comfortable cooperative. No N/V D/C SOB fevers, slept ate well. No concerns at this time. Physical Exam Constitutional: WD/WN, vitals as above Eyes: PERRL, conjunctivae normal, anicteric sclerae ENMT: external ear and nose normal, oropharynx normal Respiratory: normal respiratory effort, lungs clear to auscultation Cardiovascular: Rate/Rhythm: regular rate and regular rhythm Heart Sounds: normal S1 and normal S2 Gastrointestinal (Abdomen): Inspection/Auscultation: abdomen normal to inspection Percussion/Palpation: abdomen soft; abdomen nontender Results & Data Results & Data Vital Signs (Past 12 Hours) Vital Signs Temp Pulse Resp BP Pulse Ox O2 Del Method 12/17/23 19:48 36.7 C 71 18 137/81 99 Room Air Resident Activity Tracking Resident Involvement: Resident Care Provided Care Provided: Adult Hospital Medicine (1) UTI (urinary tract infection) Hematuria presence: without hematuria Urinary tract infection type: site unspecified Qualified Code(s): N39.0 - Urinary tract infection, site not specified (2) Altered mental state Altered mental status type: unspecified Qualified Code(s): R41.82 - Altered mental status, unspecified (6) Depression Depression Type: unspecified Qualified Code(s): F32.9 - Major depressive disorder, single episode, unspecified (8) Hypertension Hypertension type: essential hypertension Qualified Code(s): I10 - Essential (primary) hypertension (9) Anemia Anemia type: other cause Other causes of anemia: acute posthemorrhagic Qualified Code(s): D62 - Acute posthemorrhagic anemia
[2023-12-18] MEDS: CARBOHYDRATES FOR HYPOGLYCEMIA PO PRN (07:32)
[2023-12-18] MEDS: LANTUS PER UNIT CHARGE SQ ONE (09:01)
[2023-12-18] MEDS: LANTUS PER UNIT CHARGE SQ SCH (21:15)
--- NOTE | 2023-12-19 07:59 | Hospitalist Progress Note ---
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 twice daily, mirtazapine 45 mg p.o. nightly, quetiapine 100 mg p.o. nightly, and venlafaxine 225 mg p.o. nightly Need for half-way care facility -Placement remains an important consideration it was initially unclear, though presumed that dispo would be to her sister's and [id number]-[id number]'s house as they are medical POA. -12/08: Received letter from law office (representing sister and [id number]) relinquishing medical POA/"decision making authority", and asking to "not contact them regarding [patient]." -Informed patient with son present. -Awaiting CM referral to multiple personal care homes able to accept patient. * CM also aware: renewed search for long-term care facility- awaiting placement. 12/18: planning for discussion with family regarding [facility] tomorrow. Asymptomatic bacteriuria -Treated in the ED with daptomycin x1; pt last grew MSSA in urine -Blood cx neg; urine cx growing staph -ABX discontinued. Patient remains asymptomatic. Afib -Chronic, stable -Continue with metoprolol 25 mg BID, Eliquis 5 mg BID DM -Last HbA1c 7.9 during last admit -Patient on Lantus 15 mg BID outpatient; will reduce to 10 mg SQ BID with SSI while inpatient HTN -Continue home medications. 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 No new problems. Seems to have not really had any significant bad days, but also is not very happy about still being in the hospital. Case management working hard on dispo planning. Vitals noted, in general she is awake and alert pleasant no distress. HEENT normocephalic Facial bruising has essentially healed and abrasions are almost entirely healed, mucous membranes moist. Breathing unlabored no accessory muscle use good effort. Skin shows no rashes no pallor or icterus. prior cryptococcal meningitis with subsequent hallucinations/ delusionsescalation of antipsychotic medicines versus supportive environment versus bothbut patient has not had any notably dysphoric days, although she still hallucinates about will, and supposedly also the reindeer. Continue current management. Case management working on disposition. Subjective No acute events reported overnight. Patient seen and examined at bedside. She denies any acute complaints at this time, states she has been eating and drinking without difficulty and has had regular bowel movements. Review of Systems Review of Systems: As per above Physical Exam Constitutional: WD/WN, vitals as above Eyes: + anicteric sclerae; no conjunctival abn ormality ENMT: Ears: no external ear abnormality Nose: no external nose abnormality Moist mucous membranes Respiratory: normal respiratory effort; does not use accessory muscles Cardiovascular: Rate/Rhythm: regular rate and regular rhythm Extremities: no edema Skin: no rashes, warm and dry Neurologic: no focal motor deficits Results & Data Results & Data Vital Signs (Past 12 Hours) Vital Signs Temp Pulse Resp BP Pulse Ox O2 Del Method 12/19/23 07:07 36.5 C 64 16 135/82 100 Room Air Resident Activity Tracking Resident Involvement: Resident Care Provided Care Provided: Adult Hospital Medicine (1) UTI (urinary tract infection) Hematuria presence: without hematuria Urinary tract infection type: site unspecified Qualified Code(s): N39.0 - Urinary tract infection, site not specified (2) Altered mental state Altered mental status type: unspecified Qualified Code(s): R41.82 - Altered mental status, unspecified (6) Depression Depression Type: unspecified Qualified Code(s): F32.9 - Major depressive disorder, single episode, unspecified (8) Hypertension Hypertension type: essential hypertension Qualified Code(s): I10 - Essential (primary) hypertension (9) Anemia Anemia type: other cause Other causes of anemia: acute posthemorrhagic Qualified Code(s): D62 - Acute posthemorrhagic anemia
--- NOTE | 2023-12-19 19:10 | Billing Data ---
Date of Service December 19, 2023 Coding Level of Care Code 07573 SUB INP/OBS CARE 10/20MIN
--- NOTE | 2023-12-20 07:21 | Hospitalist Progress Note ---
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 twice daily, mirtazapine 45 mg p.o. nightly, quetiapine 100 mg p.o. nightly, and venlafaxine 225 mg p.o. nightly Need for [facility] care facility -Placement remains an important consideration it was initially unclear, though presumed that dispo would be to her sister's and [id number]-nb-[id number]'s house as they are medical POA. -12/08: Received letter from law office (representing sister and [id number]) relinquishing medical POA/"decision making authority", and asking to "not contact them regarding [patient]." -Informed patient with son present. -Awaiting CM referral to multiple personal care homes able to accept patient. * CM: renewed search for long-term care facility- awaiting placement. * Patient continues to lack capacity to make decisions for herself Asymptomatic bacteriuria -Treated in the ED with daptomycin x1; pt last grew MSSA in urine -Blood cx neg; urine cx growing staph -ABX discontinued. Patient remains asymptomatic. Afib -Chronic, stable -Continue with metoprolol 25 mg BID, Eliquis 5 mg BID DM -Last HbA1c 7.9 during last admit -Patient on Lantus 15 mg BID outpatient; will reduce to 10 mg SQ BID with SSI while inpatient HTN -Continue home medications. 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 No new problems. still having troubles with dispo planning accessory muscles good effort. Vitals noted, in general she is awake and alert pleasant no distress. HEENT normocephalic Facial bruising has essentially healed and abrasions are almost entirely healed, mucous membranes moist. Breathing unlabored no accessory muscle use good effort. Skin shows no rashes no pallor or icterus. prior cryptococcal meningitis with subsequent hallucinations/delusionsescalation of antipsychotic medicines versus supportive environment versus bothbut patient has not had any notably dysphoric days, although she still hallucinates about will, and supposedly also the reindeer. Continue current management. Case management working on disposition. has been difficult. Subjective No acute events reported overnight. Patient seen and examined at bedside. Patient has just finished breakfast and is seated at her bed, in no acute distress. She denies any acute concerns today. Review of Systems Review of Systems: As per above Physical Exam Constitutional: WD/WN, vitals as above Eyes: + anicteric sclerae; no conjunctival abn ormality ENMT: Ears: no external ear abnormality Nose: no external nose abnormality Respiratory: normal respiratory effort; does not use accessory muscles Cardiovascular: Rate/Rhythm: regular rate and regular rhythm Extremities: no edema Skin: no rashes, warm and dry Neurologic: no focal motor deficits Psychiatric: Insight: + impaired insight Judgment: + impaired judgement Results & Data Results & Data Vital Signs (Past 12 Hours) Vital Signs Temp Pulse Resp BP Pulse Ox O2 Del Method 12/19/23 19:21 36.8 C 74 18 118/82 99 Room Air Resident Activity Tracking Resident Involvement: Resident Care Provided Care Provided: Adult Hospital Medicine (1) UTI (urinary tract infection) Hematuria presence: without hematuria Urinary tract infection type: site unspecified Qualified Code(s): N39.0 - Urinary tract infection, site not specified (2) Altered mental state Altered mental status type: unspecified Qualified Code(s): R41.82 - Altered mental status, unspecified (6) Depression Depression Type: unspecified Qualified Code(s): F32.9 - Major depressive disorder, single episode, unspecified (8) Hypertension Hypertension type: essential hypertension Qualified Code(s): I10 - Essential (primary) hypertension (9) Anemia Anemia type: other cause Other causes of anemia: acute posthemorrhagic Qualified Code(s): D62 - Acute posthemorrhagic anemia
--- NOTE | 2023-12-20 19:16 | Billing Data ---
Date of Service December 20, 2023 Coding Level of Care Code 29680 SUB INP/OBS CARE
--- NOTE | 2023-12-21 07:57 | Hospitalist Progress Note ---
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 twice daily, mirtazapine 45 mg p.o. nightly, quetiapine 100 mg p.o. nightly, and venlafaxine 225 mg p.o. nightly -Will obtain routine EEG to help determine if temporal seizures are contributing to her behavioral disturbances Need for [facility] care facility -Placement remains an important consideration it was initially unclear, though presumed that dispo would be to her sister's and [id number]-jk-rgx's house as they are medical POA. -12/08: Received letter from law office (representing sister and [id number]) relinquishing medical POA/"decision making authority", and asking to "not contact them regarding [patient]." -Informed patient with son present. -Awaiting CM referral to multiple personal care homes able to accept patient. * CM: renewed search for long-term care facility- awaiting placement. * Patient continues to lack capacity to make decisions for herself Asymptomatic bacteriuria -Treated in the ED with daptomycin x1; pt last grew MSSA in urine -Blood cx neg; urine cx grew staph -ABX discontinued. Patient remains asymptomatic. Afib -Chronic, stable -Continue with metoprolol 25 mg BID, Eliquis 5 mg BID DM -Last HbA1c 7.9 during last admit -Patient on Lantus 15 mg BID outpatient; will reduce to 10 mg SQ BID with SSI while inpatient HTN -Continue home medications. 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 Vitals noted, in general she is awake and alert pleasant no distress. HEENT normocephalic Facial bruising has essentially healed and abrasions are almost entirely healed, mucous membranes moist. Breathing unlabored no accessory muscle use good effort. Skin shows no rashes no pallor or icterus. prior cryptococcal meningitis with subsequent hallucinations/delusionsescalation of antipsychotic medicines versus supportive environment versus bothbut patient has not had any notably dysphoric days, although she still hallucinates about will, and supposedly also the reindeer. Continue current management. EEG to ensure ?not temporal seizures. wean venlafaxine - ?causing stimulation in concert with mirtazipine. Case management working on disposition. has been difficult. Subjective No acute events reported overnight. Patient seen and examined at bedside. Patient denies any complaints this morning, discusses how she is hoping to write a children's book about reindeer. Review of Systems Review of Systems: As per above Physical Exam Constitutional: WD/WN, vitals as above Eyes: + anicteric sclerae; no conjunctival abn ormality ENMT: Ears: no external ear abnormality Nose: no external nose abnormality Respiratory: normal respiratory effort; does not use accessory muscles Cardiovascular: Rate/Rhythm: regular rate and regular rhythm Extremities: no edema Skin: no rashes, warm and dry Neurologic: no focal motor deficits Psychiatric: Insight: + impaired insight Judgment: + impaired judgement Results & Data Results & Data Vital Signs (Past 12 Hours) Vital Signs Temp Pulse Resp BP Pulse Ox O2 Del Method 12/21/23 07:14 36.6 C 78 18 128/82 98 Room Air Resident Activity Tracking Resident Involvement: Resident Care Provided Care Provided: Adult Hospital Medicine (1) UTI (urinary tract infection) Hematuria presence: without hematuria Urinary tract infection type: site unspecified Qualified Code(s): N39.0 - Urinary tract infection, site not specified (2) Altered mental state Altered mental status type: unspecified Qualified Code(s): R41.82 - Altered mental status, unspecified (6) Depression Depression Type: unspecified Qualified Code(s): F32.9 - Major depressive disorder, single episode, unspecified (8) Hypertension Hypertension type: essential hypertension Qualified Code(s): I10 - Essential (primary) hypertension (9) Anemia Anemia type: other cause Other causes of anemia: acute posthemorrhagic Qualified Code(s): D62 - Acute posthemorrhagic anemia
--- NOTE | 2023-12-21 18:10 | Billing Data ---
Date of Service December 21, 2023 Coding Level of Care Code 60744 SUB INP/OBS CARE MIN
--- NOTE | 2023-12-22 07:01 | Hospitalist Progress Note ---
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 twice daily, mirtazapine 45 mg p.o. nightly, quetiapine 100 mg p.o. nightly, and venlafaxine 150mg (decreased from 225mg on 12/20) p.o. nightly -EEG completed, no abnormalities noted. -Discussed trialing 1 week course of Prednisone 20mg Need for senior care care facility -Placement remains an important consideration it was initially unclear, though presumed that dispo would be to her sister's and [id number]-[id number]-yta's house as they are medical POA. -12/08: Received letter from law office (representing sister and [id number]) relinquishing medical POA/"decision making authority", and asking to "not contact them regarding [patient]." -Informed patient with son present. -Awaiting CM referral to multiple personal care homes able to accept patient. * CM: renewed search for long-term care facility- awaiting placement. * Patient continues to lack capacity to make decisions for herself Asymptomatic bacteriuria -Treated in the ED with daptomycin x1; pt last grew MSSA in urine -Blood cx neg; urine cx grew staph -ABX discontinued. Patient remains asymptomatic. Afib -Chronic, stable -Continue with metoprolol 25 mg BID, Eliquis 5 mg BID DM -Last HbA1c 7.9 during last admit -Patient on Lantus 15 mg BID outpatient; will reduce to 10 mg SQ BID with SSI while inpatient HTN -Continue home medications. 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 Vitals noted, in general she is awake and alert pleasant no distress. HEENT normocephalic Facial bruising has essentially healed and abrasions are almost entirely healed, mucous membranes moist. Breathing unlabored no accessory muscle use good effort. Skin shows no rashes no pallor or icterus. prior cryptococcal meningitis with subsequent hallucinations/delusionsescal ation of antipsychotic medicines versus supportive environment versus bothbut patient has not had any notably dysphoric days, although she still hallucinates about will, and supposedly also the reindeer. Continue current management. EEG to ensure ?not temporal seizures was quite normal. wean venlafaxine - ?causing stimulation in concert with mirtazipine. Case management working on disposition. has been difficult. Subjective Patient seen and examined at bedside, no acute events reported overnight. Patient does not have any specific concerns today, discussed EEG result. Review of Systems Review of Systems: As per above Physical Exam Constitutional: WD/WN, vitals as above Eyes: + anicteric sclerae; no conjunctival abn ormality ENMT: Ears: no external ear abnormality Nose: no external nose abnormality Respiratory: normal respiratory effort; does not use accessory muscles Cardiovascular: Extremities: no edema Limbs well perfused Skin: no rashes, warm and dry Neurologic: no focal motor deficits Results & Data Results & Data Vital Signs (Past 12 Hours) Vital Signs Temp Pulse Resp BP Pulse Ox O2 Del Method 12/21/23 22:47 36.8 C 71 18 137/76 99 Room Air Resident Activity Tracking Resident Involvement: Resident Care Provided Care Provided: Adult Hospital Medicine (1) UTI (urinary tract infection) Hematuria presence: without hematuria Urinary tract infection type: site unspecified Qualified Code(s): N39.0 - Urinary tract infection, site not specified (2) Altered mental state Altered mental status type: unspecified Qualified Code(s): R41.82 - Altered mental status, unspecified (6) Depression Depression Type: unspecified Qualified Code(s): F32.9 - Major depressive disorder, single episode, unspecified (8) Hypertension Hypertension type: essential hypertension Qualified Code(s): I10 - Essential (primary) hypertension (9) Anemia Anemia type: other cause Other causes of anemia: acute posthemorrhagic Qualified Code(s): D62 - Acute posthemorrhagic anemia
--- NOTE | 2023-12-22 08:42 | Electroencephalogram ---
EEG Procedure Note Date of Service December 22, 2023 Start / End Times Start Time: 806 End Time: [address] Conn History 63-year-old with history of cryptococcal meningitis now with intermittent hallucinations, question temporal lobe seizures. Home Medication List Medication Instructions Recorded Confirmed Type Contour Next Test Strips (blood #300 ea 09/02/23 11/29/23 Rx sugar diagnostic) betamethasone dipropionate 0.05 % 1 applic topical TID PRN skin 09/02/23 12/06/23 Rx lotion irritation #60 mL blood-glucose meter (Contour Next #1 ea 09/02/23 11/29/23 Rx Glucose Meter kit) furosemide 20 mg tablet 20 mg PO QAM PRN volume overload 09/02/23 12/06/23 Rx or weight gain #30 tabs lancets (Lancets,Ultra Thin) #200 ea 09/02/23 11/29/23 Rx promethazine 12.5 mg tablet 12.5 mg PO TID PRN nausea and 09/02/23 12/06/23 Rx vomiting #10 tabs diclofenac sodium 1 % topical gel 4 g topical QID PRN arthritis #100 10/25/23 12/06/23 Rx (Arthritis Pain (diclofenac)) grams pen needle, diabetic 32 gauge x #200 ea 11/01/23 11/29/23 Rx 5/32" (BD Ultra-Fine Jody Pen Needle) apixaban 5 mg tablet (Eliquis) 5 mg PO .@8AM8PM 11/11/23 12/06/23 History cholecalciferol (vitamin D3) 50 2,000 unit PO .@830AM 11/11/23 12/06/23 History mcg (2,000 unit) capsule fluconazole 200 mg tablet 400 mg PO .@830AM 11/11/23 12/06/23 History fluticasone propionate 50 2 spray intranasal .@830AM 11/11/23 12/06/23 History mcg/actuation nasal spray,suspension (Flonase Allergy Relief) magnesium chloride 64 mg 64 mg PO .@[id number] 11/11/23 12/06/23 History (magnesium chloride) tablet,delayed release (Mag 64) metoprolol succinate 25 mg 25 mg PO .@[id number] 11/11/23 12/06/23 History tablet,extended release 24 hr multivitamin 1 tab PO .@830AM 11/11/23 12/06/23 History pantoprazole 40 mg tablet,delayed 40 mg PO .@[id number] 11/11/23 12/06/23 History release quetiapine 100 mg tablet 100 mg PO .@8PM 11/11/23 12/06/23 History sennosides 8.6 mg tablet (senna) 17.2 mg PO .@830AM 11/11/23 12/06/23 History venlafaxine 150 mg 150 mg PO .@8PM 11/11/23 12/06/23 History capsule,extended release 24 hr venlafaxine 75 mg capsule,extended 75 mg PO .@8PM 11/11/23 12/06/23 History release 24 hr blood sugar diagnostic (OneTouch #400 ea 11/21/23 11/29/23 Rx Verio test strips) blood-glucose meter (OneTouch #1 ea 11/21/23 11/29/23 Rx Verio Flex Meter) mirtazapine 45 mg tablet 45 mg PO HS #90 tabs 11/30/23 12/06/23 Rx glucagon 3 mg/actuation nasal spray 3 mg intranasal ONCE PRN 12/02/23 12/06/23 Rx hypoglycemia #2 ea insulin aspart U-100 100 unit/mL See Rx Instructions subcut .COMPLEX 12/02/23 12/06/23 History (3 mL) subcutaneous pen (Novolog FlexPen U-100 Insulin aspart) cetirizine 10 mg capsule (Zyrtec) 10 mg PO .@830AM allergy symptoms 12/05/23 12/06/23 Rx #90 caps potassium chloride 10 mEq 10 meq PO .@830AM #90 caps 12/05/23 12/06/23 Rx capsule,extended release risperidone 0.5 mg tablet 0.5 mg PO BID #60 tabs 12/05/23 12/06/23 Rx thiamine HCl (vitamin B1) 100 mg 200 mg (2 x 100 mg) PO DAILY #60 12/05/23 12/06/23 Rx tablet tabs insulin glargine 100 unit/mL (3 8 unit (0.08 mL) subcut BID 90 12/06/23 12/06/23 Rx mL) subcutaneous pen (Lantus days #15 mL Solostar U-100 Insulin) Inpatient Medication List Acetaminophen (Acetaminophen 325 Mg Tab) 650 mg PO Q4H PRN PRN Reason: Pain or Agitation Stop: 01/06/24 23:20 Last Admin: 12/07/23 23:37 Dose: 650 mg Documented By: NIMO Apixaban (Apixaban 5 Mg Tablet) 5 mg PO BID HALEY Stop: 01/05/24 08:29 Last Admin: 12/21/23 20:40 Dose: 5 mg Documented By: Admin: 12/21/23 08:45 Dose: 5 mg Documented By: CJ Co-signed By: RAEGAN Admin: 12/20/23 20:34 Dose: 5 mg Documented By: Admin: 12/20/23 08:10 Dose: 5 mg Documented By: Admin: 12/19/23 20:19 Dose: 5 mg Documented By: Admin: 12/19/23 08:21 Dose: 5 mg Documented By: Admin: 12/18/23 20:44 Dose: 5 mg Documented By: Admin: 12/18/23 09:02 Dose: 5 mg Documented By: Admin: 12/17/23 19:50 Dose: 5 mg Documented By: Admin: 12/17/23 09:32 Dose: 5 mg Documented By: Admin: 12/16/23 20:26 Dose: 5 mg Documented By: Admin: 12/16/23 08:09 Dose: 5 mg Documented By: Admin: 12/15/23 20:12 Dose: 5 mg Documented By: Admin: 12/15/23 08:17 Dose: 5 mg Documented By: Admin: 12/14/23 21:09 Dose: 5 mg Documented By: Admin: 12/14/23 09:06 Dose: 5 mg Documented By: Admin: 12/13/23 20:01 Dose: 5 mg Documented By: Admin: 12/13/23 08:23 Dose: 5 mg Documented By: Admin: 12/12/23 20:28 Dose: 5 mg Documented By: Admin: 12/12/23 08:37 Dose: 5 mg Documented By: Admin: 12/11/23 20:18 Dose: 5 mg Documented By: Admin: 12/11/23 08:10 Dose: 5 mg Documented By: Admin: 12/10/23 20:04 Dose: 5 mg Documented By: Admin: 12/10/23 08:22 Dose: 5 mg Documented By: Admin: 12/09/23 20:43 Dose: 5 mg Documented By: Admin: 12/09/23 07:59 Dose: 5 mg Documented By: Admin: 12/08/23 20:09 Dose: 5 mg Documented By: Admin: 12/08/23 08:19 Dose: 5 mg Documented By: Admin: 12/07/23 20:52 Dose: 5 mg Documented By: Admin: 12/07/23 09:15 Dose: 5 mg Documented By: JJRena Admin: 12/06/23 20:18 Dose: 5 mg Documented By: Admin: 12/06/23 11:48 Dose: 5 mg Documented By: SRJaylyn Cetirizine HCl (Cetirizine Hcl 10 Mg Tablet) [facility] [place]: 01/05/24 08:29 Last Admin: 12/21/23 08:45 Dose: 10 mg Documented By: CJ Co-signed By: RAEGAN Admin: 12/20/23 08:10 Dose: 10 mg Documented By: Admin: 12/19/23 08:21 Dose: 10 mg Documented By: Admin: 12/18/23 09:02 Dose: 10 mg Documented By: Admin: 12/17/23 09:31 Dose: 10 mg Documented By: Admin: 12/16/23 08:09 Dose: 10 mg Documented By: Admin: 12/15/23 08:17 Dose: 10 mg Documented By: Admin: 12/14/23 09:06 Dose: 10 mg Documented By: Admin: 12/13/23 08:23 Dose: 10 mg Documented By: Admin: 12/12/23 08:37 Dose: 10 mg Documented By: Admin: 12/11/23 08:11 Dose: 10 mg Documented By: Admin: 12/10/23 08:23 Dose: 10 mg Documented By: Admin: 12/09/23 08:00 Dose: 10 mg Documented By: Admin: 12/08/23 08:20 Dose: 10 mg Documented By: Admin: 12/07/23 09:15 Dose: 10 mg Documented By: Admin: 12/06/23 11:49 Dose: 10 mg Documented By: SRJaylyn Fluconazole (Fluconazole 100 Mg Tab) 400 [facility] [place]: 01/05/24 08:29 Last Admin: 12/21/23 08:46 Dose: 400 mg Documented By: CJ Co-signed By: RAEGAN Admin: 12/20/23 08:10 Dose: 400 mg Documented By: Admin: 12/19/23 08:21 Dose: 400 mg Documented By: Admin: 12/18/23 09:01 Dose: 400 mg Documented By: Admin: 12/17/23 09:31 Dose: 400 mg Documented By: Admin: 12/16/23 08:09 Dose: 400 mg Documented By: Admin: 12/15/23 08:17 Dose: 400 mg Documented By: SLBritton Admin: 12/14/23 09:06 Dose: 400 mg Documented By: Admin: 12/13/23 08:23 Dose: 400 mg Documented By: Admin: 12/12/23 08:37 Dose: 400 mg Documented By: Admin: 12/11/23 08:11 Dose: 400 mg Documented By: Admin: 12/10/23 08:22 Dose: 400 mg Documented By: Admin: 12/09/23 08:01 Dose: 400 mg Documented By: Admin: 12/08/23 08:20 Dose: 400 mg Documented By: Admin: 12/07/23 09:15 Dose: 400 mg Documented By: Admin: 12/06/23 11:48 Dose: 400 mg Documented By: SRL Fluticasone Propionate (Fluticasone Propionate Na Spr 16 Gm Btl) 2 sprays [facility] [place] Stop: 01/05/24 08:59 Last Admin: 12/21/23 08:46 Dose: 2 sprays Documented By: CJ Co-signed By: RAEGAN Admin: 12/20/23 08:10 Dose: 2 sprays Documented By: Admin: 12/19/23 09:34 Dose: 2 sprays Documented By: Admin: 12/18/23 09:02 Dose: 2 sprays Documented By: Admin: 12/17/23 09:32 Dose: 2 sprays Documented By: Admin: 12/16/23 08:09 Dose: 2 sprays Documented By: SLBritton Admin: 12/15/23 08:17 Dose: 2 sprays Documented By: SLBritton Admin: 12/14/23 09:06 Dose: 2 sprays Documented By: Admin: 12/13/23 08:23 Dose: 2 sprays Documented By: Admin: 12/12/23 08:38 Dose: 2 sprays Documented By: Admin: 12/11/23 08:11 Dose: 2 sprays Documented By: Admin: 12/10/23 08:24 Dose: 2 sprays Documented By: Admin: 12/09/23 07:59 Dose: 2 sprays Documented By: Admin: 12/08/23 08:16 Dose: 2 sprays Documented By: Admin: 12/07/23 09:13 Dose: 2 sprays Documented By: Admin: 12/06/23 11:50 Dose: Not Given Documented By: SRL Insulin Aspart (Insulin Aspart Per Unit Charge) 0 units SC ACHS [facility] Stop: 01/05/24 07:52 Last Admin: 12/21/23 20:26 Dose: Not Given Documented By: Admin: 12/21/23 17:35 Dose: 3 units Documented By: ANA Co-signed By: ABIEL Admin: 12/21/23 12:56 Dose: 7 units Documented By: RAEGAN Co-signed By: [facility] Admin: 12/21/23 09:03 Dose: 2 units Documented By: RAEGAN Co-signed By: [facility] Admin: 12/20/23 20:34 Dose: Not Given Documented By: Admin: 12/20/23 16:54 Dose: 2 units Documented By: EW Co-signed By: VG Admin: 12/20/23 11:57 Dose: 7 units Documented By: JACQUIE Co-signed By: VG Admin: 12/20/23 08:13 Dose: 3 units Documented By: JACQUIE Co-signed By: RAVINDRA Admin: 12/19/23 20:53 Dose: 2 units Documented By: TARUN Co-signed By: SIENA Admin: 12/19/23 17:40 Dose: 5 units Documented By: FREDO Co-signed By: RAVINDRA Admin: 12/19/23 13:24 Dose: 5 units Documented By: FREDO Co-signed By: MICKEY Admin: 12/19/23 08:22 Dose: 2 units Documented By: FREDO Co-signed By: RAVINDRA Admin: 12/18/23 21:15 Dose: 1 units Documented By: TAURN Co-signed By: MADELEINE Admin: 12/18/23 17:42 Dose: Not Given Documented By: Admin: 12/18/23 12:14 Dose: 7 units Documented By: WINDY Co-signed By: SASKIA Admin: 12/18/23 08:43 Dose: Not Given Documented By: Admin: 12/17/23 21:15 Dose: 2 units Documented By: RAUL Co-signed By: MADELEINE Admin: 12/17/23 17:02 Dose: 5 units Documented By: WINDY Co-signed By: TOMMY Admin: 12/17/23 12:23 Dose: 8 units Documented By: WINDY Co-signed By: SASKIA Admin: 12/17/23 09:30 Dose: Not Given Documented By: Admin: 12/16/23 21:14 Dose: 3 units Documented By: RAUL Co-signed By: MADELEINE Admin: 12/16/23 17:02 Dose: 4 units Documented By: CJ Co-signed By: SASKIA Admin: 12/16/23 12:17 Dose: 4 units Documented By: CJ Co-signed By: WINDY Admin: 12/16/23 08:14 Dose: 4 units Documented By: CJ Co-signed By: ADARSH Admin: 12/15/23 20:44 Dose: 1 units Documented By: JEYSON Co-signed By: MARYANA Admin: 12/15/23 17:18 Dose: 4 units Documented By: CJ Co-signed By: TATI Admin: 12/15/23 12:10 Dose: 4 units Documented By: CJ Co-signed By: TATI Admin: 12/15/23 08:18 Dose: 4 units Documented By: CJ Co-signed By: TATI Admin: 12/14/23 21:25 Dose: 2 units Documented By: RODGER Co-signed By: NIMO Admin: 12/14/23 17:42 Dose: 7 units Documented By: ADDIE Co-signed By: RAFIA Admin: 12/14/23 12:21 Dose: 6 units Documented By: ADDIE Co-signed By: RAFIA Admin: 12/14/23 09:09 Dose: 4 units Documented By: RAFIA Co-signed By: JOSE MIGUEL Admin: 12/13/23 22:26 Dose: Not Given Documented By: NIMO Co-signed By: MARYANA Admin: 12/13/23 17:15 Dose: 4 units Documented By: RENATA Co-signed By: NHUNG Admin: 12/13/23 12:22 Dose: 8 units Documented By: RENATA Co-signed By: NHUNG Admin: 12/13/23 08:23 Dose: 3 units Documented By: RENATA Co-signed By: ISRRAEL Admin: 12/12/23 20:33 Dose: 2 units Documented By: PATRICIO Co-signed By: STACIA Admin: 12/12/23 18:19 Dose: 10 units Documented By: TAMIA Co-signed By: ISRRAEL Admin: 12/12/23 12:40 Dose: 6 units Documented By: TAMIA Co-signed By: ISRRAEL Admin: 12/12/23 08:35 Dose: 2 units Documented By: TAMIA Co-signed By: ISRRAEL Admin: 12/11/23 20:29 Dose: 2 units Documented By: RAUL Co-signed By: JEYSON Admin: 12/11/23 17:19 Dose: 3 units Documented By: TBS Co-signed By: RENATA Admin: 12/11/23 12:37 Dose: 4 units Documented By: TAMIA Co-signed By: ISRRAEL Admin: 12/11/23 09:29 Dose: 2 units Documented By: TAMIA Co-signed By: ISRRAEL Admin: 12/10/23 20:19 Dose: 1 units Documented By: EGS Co-signed By: VERONICA Admin: 12/10/23 16:56 Dose: 4 units Documented By: CMV Co-signed By: RENATA Admin: 12/10/23 12:20 Dose: 11 units Documented By: CMV Co-signed By: MRE Admin: 12/10/23 08:27 Dose: 2 units Documented By: CMV Co-signed By: RENATA Admin: 12/09/23 20:45 Dose: Not Given Documented By: EGS Co-signed By: JEYSON Admin: 12/09/23 17:16 Dose: 7 units Documented By: CMV Co-signed By: TAMIA Admin: 12/09/23 12:25 Dose: 8 units Documented By: CMV Co-signed By: HEL Admin: 12/09/23 08:10 Dose: 5 units Documented By: CMV Co-signed By: HEL Admin: 12/08/23 21:27 Dose: 1 units Documented By: NIMO Co-signed By: JEYSON Admin: 12/08/23 17:07 Dose: 3 units Documented By: RAVINDRA Co-signed By: ANYI Admin: 12/08/23 12:06 Dose: 7 units Documented By: RAVINDRA Co-signed By: JONAS Admin: 12/08/23 08:13 Dose: Not Given Documented By: Admin: 12/07/23 21:58 Dose: Not Given Documented By: NIMO Co-signed By: NIMCO Admin: 12/07/23 17:04 Dose: Not Given Documented By: Admin: 12/07/23 12:12 Dose: 7 units Documented By: RAVINDRA Co-signed By: CEF Admin: 12/07/23 08:08 Dose: Not Given Documented By: Admin: 12/06/23 20:19 Dose: Not Given Documented By: Admin: 12/06/23 17:04 Dose: 1 units Documented By: RAVINDRA Co-signed By: KER Admin: 12/06/23 12:05 Dose: Not Given Documented By: Admin: 12/06/23 09:01 Dose: Not Given Documented By: SRL Insulin Glargine (Lantus Per Unit Charge) 8 units SQ BID [facility] Stop: 01/17/24 20:59 Last Admin: 12/21/23 20:40 Dose: 8 units Documented By: NIMCO Co-signed By: ALLYSON Admin: 12/21/23 09:04 Dose: 8 units Documented By: RAEGAN Co-signed By: ANA Admin: 12/20/23 20:44 Dose: 8 units Documented By: TARUN Co-signed By: SIENA Admin: 12/20/23 08:13 Dose: 8 units Documented By: JACQUIE Co-signed By: RAVINDRA Admin: 12/19/23 20:54 Dose: 8 units Documented By: TARUN Co-signed By: SIENA Admin: 12/19/23 08:22 Dose: 8 units Documented By: FREDO Co-signed By: RAVINDRA Admin: 12/18/23 21:15 Dose: 8 units Documented By: TARUN Co-signed By: SG Metoprolol Succinate (Metoprolol Succ 25mg Ext Rel Tab) 25 mg PO BID [facility]Y Stop: 01/05/24 08:29 Last Admin: 12/21/23 20:39 Dose: 25 mg Documented By: Admin: 12/21/23 08:47 Dose: 25 mg Documented By: CJ Co-signed By: RAEGAN Admin: 12/20/23 20:34 Dose: 25 mg Documented By: Admin: 12/20/23 08:10 Dose: 25 mg Documented By: Admin: 12/19/23 20:19 Dose: 25 mg Documented By: Admin: 12/19/23 08:21 Dose: 25 mg Documented By: Admin: 12/18/23 20:44 Dose: 25 mg Documented By: Admin: 12/18/23 09:02 Dose: 25 mg Documented By: Admin: 12/17/23 19:51 Dose: 25 mg Documented By: Admin: 12/17/23 09:32 Dose: 25 mg Documented By: Admin: 12/16/23 20:26 Dose: 25 mg Documented By: Admin: 12/16/23 08:09 Dose: 25 mg Documented By: Admin: 12/15/23 20:13 Dose: 25 mg Documented By: Admin: 12/15/23 08:17 Dose: 25 mg Documented By: Admin: 12/14/23 21:10 Dose: 25 mg Documented By: Admin: 12/14/23 09:06 Dose: 25 mg Documented By: Admin: 12/13/23 20:01 Dose: 25 mg Documented By: Admin: 12/13/23 08:22 Dose: 25 mg Documented By: Admin: 12/12/23 20:25 Dose: 25 mg Documented By: Admin: 12/12/23 08:38 Dose: 25 mg Documented By: Admin: 12/11/23 20:18 Dose: 25 mg Documented By: JPRena Admin: 12/11/23 08:12 Dose: 25 mg Documented By: Admin: 12/10/23 20:03 Dose: 25 mg Documented By: Admin: 12/10/23 08:22 Dose: 25 mg Documented By: Admin: 12/09/23 20:42 Dose: 25 mg Documented By: Admin: 12/09/23 08:00 Dose: 25 mg Documented By: Admin: 12/08/23 20:08 Dose: 25 mg Documented By: Admin: 12/08/23 08:17 Dose: 25 mg Documented By: Admin: 12/07/23 20:53 Dose: 25 mg Documented By: Admin: 12/07/23 10:30 Dose: 25 mg Documented By: Admin: 12/06/23 20:21 Dose: 25 mg Documented By: Admin: 12/06/23 11:48 Dose: 25 mg Documented By: PAUL Mirtazapine (Mirtazapine Soltab 15 Mg) 45 mg PO HS [facility] Stop: 01/06/24 20:59 Last Admin: 12/21/23 20:40 Dose: 45 mg Documented By: Admin: 12/20/23 20:34 Dose: 45 mg Documented By: Admin: 12/19/23 20:19 Dose: 45 mg Documented By: Admin: 12/18/23 20:44 Dose: 45 mg Documented By: Admin: 12/17/23 19:50 Dose: 45 mg Documented By: Admin: 12/16/23 20:26 Dose: 45 mg Documented By: Admin: 12/15/23 20:13 Dose: 45 mg Documented By: Admin: 12/14/23 21:08 Dose: 45 mg Documented By: Admin: 12/13/23 20:00 Dose: 45 mg Documented By: Admin: 12/12/23 20:27 Dose: 45 mg Documented By: Admin: 12/11/23 20:18 Dose: 45 mg Documented By: Admin: 12/10/23 20:04 Dose: 45 mg Documented By: Admin: 12/09/23 20:43 Dose: 45 mg Documented By: Admin: 12/08/23 20:09 Dose: 45 mg Documented By: Admin: 12/07/23 20:54 Dose: 45 mg Documented By: NIMO Miscellaneous (Carbohydrates For Hypoglycemia ) 15 - 30 gm PO UD PRN PRN Reason: Hypoglycemia Protocol Stop: 01/05/24 07:52 Last Admin: 12/18/23 17:13 Dose: 15 gm Documented By: Admin: 12/18/23 07:32 Dose: 15 gm Documented By: WINDY Ondansetron HCl (Ondansetron Inj 2 Mg/Ml 2 Ml Vial) 4 mg IV Q6H PRN PRN Reason: Nausea Stop: 01/05/24 07:52 Last Admin: 12/15/23 22:14 Dose: 4 mg Documented By: Admin: 12/15/23 06:13 Dose: 4 mg Documented By: Admin: 12/13/23 20:11 Dose: 4 mg Documented By: Admin: 12/09/23 20:42 Dose: 4 mg Documented By: Admin: 12/09/23 13:24 Dose: 4 mg Documented By: MAIRA Pantoprazole Sodium (Pantoprazole 40 Mg Tab) 40 mg PO BID [facility] Stop: 01/05/24 08:29 Last Admin: 12/21/23 20:40 Dose: 40 mg Documented By: Admin: 12/21/23 08:47 Dose: 40 mg Documented By: CJ Co-signed By: RAEGAN Admin: 12/20/23 20:34 Dose: 40 mg Documented By: Admin: 12/20/23 08:10 Dose: 40 mg Documented By: Admin: 12/19/23 20:19 Dose: 40 mg Documented By: Admin: 12/19/23 08:21 Dose: 40 mg Documented By: Admin: 12/18/23 20:44 Dose: 40 mg Documented By: Admin: 12/18/23 09:02 Dose: 40 mg Documented By: Admin: 12/17/23 19:51 Dose: 40 mg Documented By: Admin: 12/17/23 09:32 Dose: 40 mg Documented By: Admin: 12/16/23 20:26 Dose: 40 mg Documented By: Admin: 12/16/23 08:09 Dose: 40 mg Documented By: Admin: 12/15/23 20:13 Dose: 40 mg Documented By: Admin: 12/15/23 08:17 Dose: 40 mg Documented By: Admin: 12/14/23 21:09 Dose: 40 mg Documented By: Admin: 12/14/23 09:06 Dose: 40 mg Documented By: Admin: 12/13/23 20:01 Dose: 40 mg Documented By: Admin: 12/13/23 08:22 Dose: 40 mg Documented By: Admin: 12/12/23 20:25 Dose: 40 mg Documented By: Admin: 12/12/23 08:39 Dose: 40 mg Documented By: Admin: 12/11/23 20:18 Dose: 40 mg Documented By: Admin: 12/11/23 08:12 Dose: 40 mg Documented By: Admin: 12/10/23 20:03 Dose: 40 mg Documented By: Admin: 12/10/23 08:22 Dose: 40 mg Documented By: Admin: 12/09/23 20:43 Dose: 40 mg Documented By: Admin: 12/09/23 07:59 Dose: 40 mg Documented By: Admin: 12/08/23 20:10 Dose: 40 mg Documented By: Admin: 12/08/23 08:19 Dose: 40 mg Documented By: Admin: 12/07/23 20:52 Dose: 40 mg Documented By: Admin: 12/07/23 09:15 Dose: 40 mg Documented By: Admin: 12/06/23 20:34 Dose: Not Given Documented By: Admin: 12/06/23 11:49 Dose: Not Given Documented By: Admin: 12/06/23 11:48 Dose: 40 mg Documented By: SRL Quetiapine Fumarate (Quetiapine Fumarate 100 Mg Tablet) 100 mg PO TODAY@1999 [facility] Stop: 01/05/24 19:59 Last Admin: 12/21/23 20:39 Dose: 100 mg Documented By: Admin: 12/20/23 20:34 Dose: 100 mg Documented By: Admin: 12/19/23 20:19 Dose: 100 mg Documented By: Admin: 12/18/23 20:44 Dose: 100 mg Documented By: Admin: 12/17/23 19:50 Dose: 100 mg Documented By: Admin: 12/16/23 20:26 Dose: 100 mg Documented By: Admin: 12/15/23 20:13 Dose: 100 mg Documented By: Admin: 12/14/23 21:08 Dose: 100 mg Documented By: Admin: 12/13/23 20:00 Dose: 100 mg Documented By: Admin: 12/12/23 20:26 Dose: 100 mg Documented By: Admin: 12/11/23 20:18 Dose: 100 mg Documented By: Admin: 12/10/23 20:04 Dose: 100 mg Documented By: Admin: 12/09/23 20:42 Dose: 100 mg Documented By: Admin: 12/08/23 20:09 Dose: 100 mg Documented By: Admin: 12/07/23 20:51 Dose: 100 mg Documented By: Admin: 12/06/23 20:17 Dose: 100 mg Documented By: ARMANDO Risperidone (Risperidone 2 Mg Tablet) 2 mg PO BID [facility] Stop: 01/07/24 20:59 Last Admin: 12/21/23 20:39 Dose: 2 mg Documented By: Admin: 12/21/23 08:48 Dose: 2 mg Documented By: CJ Co-signed By: RAEGAN Admin: 12/20/23 20:34 Dose: 2 mg Documented By: Admin: 12/20/23 08:10 Dose: 2 mg Documented By: Admin: 12/19/23 20:19 Dose: 2 mg Documented By: Admin: 12/19/23 08:20 Dose: 2 mg Documented By: Admin: 12/18/23 20:44 Dose: 2 mg Documented By: Admin: 12/18/23 09:01 Dose: 2 mg Documented By: Admin: 12/17/23 19:50 Dose: 2 mg Documented By: Admin: 12/17/23 09:32 Dose: 2 mg Documented By: Admin: 12/16/23 20:27 Dose: 2 mg Documented By: Admin: 12/16/23 08:09 Dose: 2 mg Documented By: Admin: 12/15/23 20:12 Dose: 2 mg Documented By: Admin: 12/15/23 08:17 Dose: 2 mg Documented By: Admin: 12/14/23 21:08 Dose: 2 mg Documented By: Admin: 12/14/23 09:05 Dose: 2 mg Documented By: Admin: 12/13/23 20:02 Dose: 2 mg Documented By: Admin: 12/13/23 08:22 Dose: 2 mg Documented By: Admin: 12/12/23 20:28 Dose: 2 mg Documented By: Admin: 12/12/23 08:39 Dose: 2 mg Documented By: Admin: 12/11/23 20:18 Dose: 2 mg Documented By: Admin: 12/11/23 08:12 Dose: 2 mg Documented By: Admin: 12/10/23 20:03 Dose: 2 mg Documented By: Admin: 12/10/23 08:22 Dose: 2 mg Documented By: Admin: 12/09/23 20:43 Dose: 2 mg Documented By: Admin: 12/09/23 08:01 Dose: 2 mg Documented By: Admin: 12/08/23 20:08 Dose: 2 mg Documented By: NIMO Lara (Senna 8.6 Mg Tab) 17.2 mg PO TODAY@0830 [facility] Stop: 01/05/24 08:29 Last Admin: 12/21/23 08:44 Dose: Not Given Documented By: Admin: 12/20/23 08:09 Dose: Not Given Documented By: Admin: 12/19/23 09:35 Dose: Not Given Documented By: Admin: 12/18/23 09:02 Dose: Not Given Documented By: Admin: 12/17/23 09:36 Dose: Not Given Documented By: Admin: 12/16/23 08:03 Dose: Not Given Documented By: Admin: 12/15/23 08:16 Dose: Not Given Documented By: Admin: 12/14/23 09:06 Dose: 17.2 mg Documented By: Admin: 12/13/23 08:16 Dose: Not Given Documented By: Admin: 12/12/23 08:37 Dose: Not Given Documented By: Admin: 12/11/23 08:17 Dose: Not Given Documented By: Admin: 12/10/23 08:23 Dose: Not Given Documented By: Admin: 12/09/23 08:01 Dose: Not Given Documented By: Admin: 12/08/23 08:20 Dose: Not Given Documented By: Admin: 12/07/23 08:11 Dose: 17.2 mg Documented By: Admin: 12/06/23 11:47 Dose: 17.2 mg Documented By: SRL Thiamine HCl (Thiamine Hcl 100 Mg Tab) 200 mg PO DAILY HALEY Stop: 01/05/24 08:59 Last Admin: 12/21/23 08:48 Dose: 200 mg Documented By: CJ Co-signed By: RAEGAN Admin: 12/20/23 08:10 Dose: 200 mg Documented By: Admin: 12/19/23 08:21 Dose: 200 mg Documented By: Admin: 12/18/23 09:01 Dose: 200 mg Documented By: Admin: 12/17/23 09:31 Dose: 200 mg Documented By: Admin: 12/16/23 08:09 Dose: 200 mg Documented By: Admin: 12/15/23 08:17 Dose: 200 mg Documented By: Admin: 12/14/23 09:06 Dose: 200 mg Documented By: Admin: 12/13/23 08:22 Dose: 200 mg Documented By: Admin: 12/12/23 08:39 Dose: 200 mg Documented By: Admin: 12/11/23 08:12 Dose: 200 mg Documented By: Admin: 12/10/23 08:23 Dose: 200 mg Documented By: Admin: 12/09/23 08:00 Dose: 200 mg Documented By: Admin: 12/08/23 08:19 Dose: 200 mg Documented By: Admin: 12/07/23 08:11 Dose: 200 mg Documented By: Admin: 12/06/23 11:48 Dose: 200 mg Documented By: SRL Venlafaxine HCl (Venlafaxine Hcl Xr 150 Mg Capxr) 150 mg PO TODAY@1999 [facility] Stop: 01/05/24 19:59 Last Admin: 12/21/23 20:40 Dose: 150 mg Documented By: Admin: 12/20/23 20:34 Dose: 150 mg Documented By: Admin: 12/19/23 20:19 Dose: 150 mg Documented By: Admin: 12/18/23 20:44 Dose: 150 mg Documented By: Admin: 12/17/23 19:50 Dose: 150 mg Documented By: Admin: 12/16/23 20:26 Dose: 150 mg Documented By: Admin: 12/15/23 20:14 Dose: 150 mg Documented By: Admin: 12/14/23 21:09 Dose: 150 mg Documented By: Admin: 12/13/23 20:02 Dose: 150 mg Documented By: Admin: 12/12/23 20:26 Dose: 150 mg Documented By: Admin: 12/11/23 20:18 Dose: 150 mg Documented By: Admin: 12/10/23 20:04 Dose: 150 mg Documented By: Admin: 12/09/23 20:43 Dose: 150 mg Documented By: Admin: 12/08/23 20:10 Dose: 150 mg Documented By: Admin: 12/07/23 20:51 Dose: 150 mg Documented By: Admin: 12/06/23 20:17 Dose: 150 mg Documented By: ARMANDO Discontinued Medications Sodium Chloride (Nss) 1,000 mls @ 999 mls/hr IV .Q1H1M ONE Stop: 12/06/23 02:22 Last Infusion: 12/06/23 04:03 Dose: Infused Documented By: Admin: 12/06/23 01:27 Dose: 999 mls/hr Documented By: MELLISA Daptomycin 225 mg/ Syringe 4.5 mls @ 2.25 mls/min IV ONE ONE; Protocol Stop: 12/06/23 04:08 Last Admin: 12/06/23 05:46 Dose: 2.25 mls/min Documented By: MELLISA Lactated Ringer's (Lr) 1,000 mls @ 80 mls/hr IV .[id number] HALEY Stop: 12/07/23 08:52 Last Infusion: 12/07/23 15:25 Dose: Infused Documented By: Admin: 12/07/23 03:03 Dose: 80 mls/hr Documented By: Infusion: 12/07/23 01:59 Dose: Infused Documented By: Admin: 12/06/23 13:29 Dose: 80 mls/hr Documented By: PAUL Daptomycin 225 mg/ Syringe 4.5 mls @ 2.25 mls/min IV Q24H [facility]; Protocol Stop: 12/12/23 05:29 Last Admin: 12/07/23 04:57 Dose: 2.25 mls/min Documented By: ARMANDO Insulin Glargine (Lantus Per Unit Charge) 10 units SQ BID [facility] Stop: 01/05/24 08:59 Last Admin: 12/10/23 08:32 Dose: 10 units Documented By: MAIRA Co-signed By: RENATA Admin: 12/09/23 20:45 Dose: 10 units Documented By: CAESAR Co-signed By: JEYSON Admin: 12/09/23 08:11 Dose: 10 units Documented By: CMV Co-signed By: MARLON Admin: 12/08/23 21:27 Dose: 10 units Documented By: NIMO Co-signed By: JEYSON Admin: 12/08/23 08:16 Dose: 10 units Documented By: RAVINDRA Co-signed By: ANYI Admin: 12/07/23 21:58 Dose: 10 units Documented By: NIMO Co-signed By: NIMCO Admin: 12/07/23 08:10 Dose: 10 units Documented By: RAVINDRA Co-signed By: OSVALDO Admin: 12/06/23 20:25 Dose: 10 units Documented By: ARMANDO Co-signed By: SG Admin: 12/06/23 12:05 Dose: Not Given Documented By: SRL Insulin Glargine (Lantus Per Unit Charge) 15 units SQ BID [facility] Stop: 01/09/24 20:59 Last Admin: 12/17/23 21:14 Dose: 15 units Documented By: RAUL Co-signed By: SG Admin: 12/17/23 09:38 Dose: 15 units Documented By: WINDY Co-signed By: TOMMY Admin: 12/16/23 21:13 Dose: 15 units Documented By: RAUL Co-signed By: MADELEINE Admin: 12/16/23 08:15 Dose: 15 units Documented By: CJ Co-signed By: ADARSH Admin: 12/15/23 20:44 Dose: 15 units Documented By: JEYSON Co-signed By: MARYANA Admin: 12/15/23 08:17 Dose: 15 units Documented By: CJ Co-signed By: TATI Admin: 12/14/23 21:24 Dose: 15 units Documented By: RODGER Co-signed By: NIMO Admin: 12/14/23 09:09 Dose: 15 units Documented By: RAFIA Co-signed By: JOSE MIGUEL Admin: 12/13/23 22:26 Dose: 15 units Documented By: NIMO Co-signed By: MARYANA Admin: 12/13/23 08:24 Dose: 15 units Documented By: RENATA Co-signed By: ISRRAEL Admin: 12/12/23 20:33 Dose: 15 units Documented By: SW Co-signed By: STACIA Admin: 12/12/23 08:35 Dose: 15 units Documented By: TBS Co-signed By: ISRRAEL Admin: 12/11/23 20:30 Dose: 15 units Documented By: RAUL Co-signed By: JEYSON Admin: 12/11/23 09:30 Dose: 15 units Documented By: TAMIA Co-signed By: ISRRAEL Admin: 12/10/23 20:19 Dose: 15 units Documented By: CAESAR Co-signed By: VERONICA Insulin Glargine (Lantus Per Unit Charge) 8 units SQ ONE ONE Stop: 12/18/23 08:31 Last Admin: 12/18/23 09:01 Dose: 8 units Documented By: WINDY Co-signed By: SASKIA Mirtazapine (Mirtazapine Soltab 15 Mg) 45 mg PO [facility] Stop: 01/05/24 20:59 Last Admin: 12/06/23 20:19 Dose: 45 mg Documented By: ARMANDO Risperidone (Risperidone 0.5 Mg Tablet) 0.5 mg PO BID [facility] Stop: 01/05/24 08:59 Last Admin: 12/06/23 12:04 Dose: Not Given Documented By: PAUL Risperidone (Risperidone 1 Mg Tablet) 1 mg PO BID [facility] Stop: 01/05/24 20:59 Last Admin: 12/07/23 09:14 Dose: 1 mg Documented By: Admin: 12/06/23 20:21 Dose: 1 mg Documented By: ARMANDO Risperidone (Risperidone 0.5 Mg Tablet) 1.5 mg PO BID [facility] Stop: 01/06/24 20:59 Last Admin: 12/08/23 08:17 Dose: 1.5 mg Documented By: Admin: 12/07/23 20:53 Dose: 1.5 mg Documented By: NIMO Venlafaxine HCl (Venlafaxine Hcl Xr 75 Mg Capxr) 75 mg PO TODAY@1999 [facility] Stop: 01/05/24 19:59 Last Admin: 12/20/23 20:34 Dose: 75 mg Documented By: Admin: 12/19/23 20:19 Dose: 75 mg Documented By: Admin: 12/18/23 20:44 Dose: 75 mg Documented By: Admin: 12/17/23 19:51 Dose: 75 mg Documented By: Admin: 12/16/23 20:26 Dose: 75 mg Documented By: Admin: 12/15/23 20:12 Dose: 75 mg Documented By: Admin: 12/14/23 21:10 Dose: 75 mg Documented By: PLZohra Admin: 12/13/23 20:01 Dose: 75 mg Documented By: Admin: 12/12/23 20:26 Dose: 75 mg Documented By: Admin: 12/11/23 20:18 Dose: 75 mg Documented By: Admin: 12/10/23 20:04 Dose: 75 mg Documented By: Admin: 12/09/23 20:43 Dose: 75 mg Documented By: Admin: 12/08/23 20:10 Dose: 75 mg Documented By: Admin: 12/07/23 20:53 Dose: 75 mg Documented By: Admin: 12/06/23 20:17 Dose: 75 mg Documented By: ARMANDO Description This is a 21 electrode EEG with a single channel dedicated to limited EKG. The electrodes were placed in accordance with the International 10-20 system. Interpretation The predominant background activity consists of a irregular 10 Hz activity, of up to 40 mV in amplitude,seen symmetrically distributed over the posterior head regions bilaterally. This activity attenuates nicely with eye-opening and other alerting procedures. Photic stimulation was performed and elicited no change in the background activity and no abnormal responses were seen. Hyperventilation was not performed. A minimal amount of muscle and movement artifact activity contaminated the recording and did not hinder interpretation to any significant degree. Throughout the waking portion of the recording, no focal abnormalities, abnormal slow activity, or potentially epileptogenic discharges are seen. The patient entered the drowsy state and brief periods of stage II sleep with no further activation. In summary, this EEG was normal during wakefulness and sleep. No focal abnormalities, potentially epileptogenic discharges, or abnormal slow activity was seen. Clinical Correlation The abscence of potentially epileptogenic activity does not exclude a seizure disorder, since interictally, EEGs can be normal. Clinical correlation is required. [facility] EEG Procedure Codes Indication for Procedure (1) Altered mental state: (2) Hallucinations: Neurology Neurology: 78411 EEG include record awake & sleepy
--- NOTE | 2023-12-22 13:05 | Billing Data ---
Date of Service December 22, 2023 Coding Level of Care Code 85136 SUB INP/OBS CARE
--- NOTE | 2023-12-23 06:57 | Hospitalist Progress Note ---
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 twice daily, mirtazapine 45 mg p.o. nightly, quetiapine 100 mg p.o. nightly, and venlafaxine 150mg (decreased from 225mg on 12/20) p.o. nightly -EEG completed, no abnormalities noted. -Discussed trialing 1 week course of Prednisone - started on prednisone 40mg daily with taper and check response. Need for supervisor intermediates care facility -Placement remains an important consideration it was initially unclear, though presumed that dispo would be to her sister's and [id number]'s house as they are medical POA. -12/08: Received letter from law office (representing sister and [id number]) relinquishing medical POA/"decision making authority", and asking to "not contact them regarding [patient]." -Informed patient with son present. -Awaiting CM referral to multiple personal care homes able to accept patient. * CM: renewed search for long-term care facility- awaiting placement. * Patient continues to lack capacity to make decisions for herself Asymptomatic bacteriuria -Treated in the ED with daptomycin x1; pt last grew MSSA in urine -Blood cx neg; urine cx grew staph -ABX discontinued. Patient remains asymptomatic. Afib -Chronic, stable -Continue with metoprolol 25 mg BID, Eliquis 5 mg BID DM -Last HbA1c 7.9 during last admit -Patient on Lantus 15 mg BID outpatient; will reduce to 10 mg SQ BID with SSI while inpatient HTN -Continue home medications. 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 Tolerating prednisone well. accessory muscles good effort. Vitals noted, in general she is awake and alert pleasant no distress. HEENT normocephalic Facial bruising has essentially healed and abrasions are almost entirely healed, mucous membranes moist. Breathing unlabored no accessory muscle use good effort. Skin shows no rashes no pallor or icterus. prior cryptococcal meningitis with subsequent hallucinations/delusionsescalation of antipsychotic medicines versus supportive environment versus bothbut patient has not had any notably dysphoric days, a lthough she still hallucinates about Will, and supposedly also the reindeer. Continue current management. EEG to ensure ?not temporal seizures was quite normal. wean venlafaxine - ?causing stimulation in concert with mirtazipine. On literature review, case studies of geriatric patients with inflammatory findings such as she had meningeal he when they are post treatment for cryptococcal meningitis have at least shown some degree of response to corticosteroids sometimes. Given that she has had follow-up LPs/follow-up infectious disease workup, and it seems that the infection itself has been treated, risk for a trial of corticosteroids appears to be fairly low, and while I discussed with the patient that I doubt we are going to affect improvement, giving a trial of corticosteroids in the hopes that we might certainly seems more rational than simply writing off a treatment line that, while low probability of benefit, is also a fairly low risk. Given that we started 40 mg of prednisone today and will follow for any response. Obviously response will be a little bit tough to gaugediscussed with the patient that it will be fairly hard for her to discern hallucinations/delusions when she believes them to be real, particularly given that she has not had dysphoric days since being here. Again though, given that the only alternative is really essentially assuming that her life is forever altered with this (which it may be) the risk/benefit of at least trying a therapeutic trial of corticosteroids, based on case reports in the literature, it is reasonableparticularly given that she is here in the hospital in a safe environment with close supervision. Case management working on disposition. has been difficult. Subjective Patient doing well this morning without complaints. No overnight events. Review of Systems Review of Systems: As per above Physical Exam Constitutional: WD/WN, vitals as above Respiratory: normal respiratory effort, lungs clear to auscultation Cardiovascular: RRR, no murmur, no edema Results & Data Results & Data Vital Signs (Past 12 Hours) Vital Signs Temp Pulse Resp BP Pulse Ox O2 Del Method 12/22/23 19:46 36.4 C L 78 14 151/84 H 99 Room Air Resident Activity Tracking Resident Involvement: Resident Care Provided Care Provided: Adult Hospital Medicine (1) UTI (urinary tract infection) Hematuria presence: without hematuria Urinary tract infection type: site unspecified Qualified Code(s): N39.0 - Urinary tract infection, site not specified (2) Altered mental state Altered mental status type: unspecified Qualified Code(s): R41.82 - Altered mental status, unspecified (6) Depression Depression Type: unspecified Qualified Code(s): F32.9 - Major depressive disorder, single episode, unspecified (8) Hypertension Hypertension type: essential hypertension Qualified Code(s): I10 - Essential (primary) hypertension (9) Anemia Anemia type: other cause Other causes of anemia: acute posthemorrhagic Qualified Code(s): D62 - Acute posthemorrhagic anemia
[2023-12-23] MEDS: LANTUS PER UNIT CHARGE SQ ONE (08:48)
[2023-12-23] MEDS: predniSONE 20 MG TAB PO SCH (09:11)
--- NOTE | 2023-12-23 12:49 | Billing Data ---
Date of Service December 23, 2023 Coding Level of Care Code 68826 SUB INP/OBS CARE MIN
[2023-12-23] MEDS: INSULIN ASPART PER UNIT CHARGE SC STA (16:55)
[2023-12-23] MEDS: LANTUS PER UNIT CHARGE SQ SCH (21:56)
--- NOTE | 2023-12-24 07:49 | Hospitalist Progress Note ---
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 twice daily, mirtazapine 45 mg p.o. nightly, quetiapine 100 mg p.o. nightly, and venlafaxine 150mg (decreased from 225mg on 12/20) p.o. nightly -EEG completed, no abnormalities noted. -Discussed trialing 1 week course of Prednisone - started on prednisone 40mg daily with taper and check response. 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 -12/08: Received letter from law office (representing sister and [id number]) relinquishing medical POA/"decision making authority", and asking to "not contact them regarding [patient]." -Informed patient with son present. -Awaiting CM referral to multiple personal care homes able to accept patient. * CM: renewed search for long-term care facility- awaiting placement. * Patient continues to lack capacity to make decisions for herself Asymptomatic bacteriuria -Treated in the ED with daptomycin x1; pt last grew MSSA in urine -Blood cx neg; urine cx grew staph -ABX discontinued. Patient remains asymptomatic. Afib -Chronic, stable -Continue with metoprolol 25 mg BID, Eliquis 5 mg BID DM -Last HbA1c 7.9 during last admit -Patient on Lantus 15 mg BID outpatient; reduced to 10 units on admission, increased to 15 units BID due to steroid use however will go down to 12 units due to blood sugars in the upper 100's today. -Tightened SSI control. HTN -Continue home medications. 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 Sleeping comfortably whenever I see her. No new issues identified. Vitals noted, in general she is sleeping and appears to be comfortable and in no distress. Breathing unlabored no accessory muscle use. Skin without pallor or icterus. prior cryptococcal meningitis with subsequent hallucinations/delusionsescalation of antipsychotic medicines versus supportive environment versus bothbut patient has not had any notably dysphoric days, although she still hallucinates about Will, and supposedly also the reindeer. Continue current management. EEG to ensure ?not temporal seizures was quite normal. wean venlafaxine - ?causing stimulation in concert with mirtazipine. On literature review, case studies of geriatric patients with inflammatory findings such as she had meningeal he when they are post treatment for crypt ococcal meningitis have at least shown some degree of response to corticosteroids sometimes. Given that she has had follow-up LPs/follow-up infectious disease workup, and it seems that the infection itself has been treated, risk for a trial of corticosteroids appears to be fairly low, and while I discussed with the patient that I doubt we are going to affect improvement, giving a trial of corticosteroids in the hopes that we might certainly seems more rational than simply writing off a treatment line that, while low probability of benefit, is also a fairly low risk. Given that we started 40 mg of prednisone 12/22 and will follow for any response. Obviously response will be a little bit tough to gaugediscussed with the patient that it will be fairly hard for her to discern hallucinations/delusions when she believes them to be real, particularly given that she has not had dysphoric days since being here. Again though, given that the only alternative is really essentially assuming silvano t her life is forever altered with this (which it may be) the risk/benefit of at least trying a therapeutic trial of corticosteroids, based on case reports in the literature, it is reasonableparticularly given that she is here in the hospital in a safe environment with close supervision. Titrate insulins to match hyperglycemia. Case management working on disposition. has been difficult. Subjective Patient doing well today, no overnight events. Sugars remain a little bit more tenuous. Review of Systems Review of Systems: As per above Physical Exam Constitutional: WD/WN, vitals as above Eyes: PERRL, conjunctivae normal, anicteric sclerae Respiratory: normal respiratory effort Psychiatric: A+Ox3, euthymic affect Results & Data Results & Data Vital Signs (Past 12 Hours) Vital Signs Temp Pulse Resp BP Pulse Ox O2 Del Method 12/24/23 07:33 36.6 C 75 16 155/84 H 99 Room Air 12/23/23 19:56 36.9 C 92 H 14 161/89 H 95 Room Air Resident Activity Tracking Resident Involvement: Resident Care Provided Care Provided: Adult Hospital Medicine (1) UTI (urinary tract infection) Hematuria presence: without hematuria Urinary tract infection type: site unspecified Qualified Code(s): N39.0 - Urinary tract infection, site not specified (2) Altered mental state Altered mental status type: unspecified Qualified Code(s): R41.82 - Altered mental status, unspecified (6) Depression Depression Type: unspecified Qualified Code(s): F32.9 - Major depressive disorder, single episode, unspecified (8) Hypertension Hypertension type: essential hypertension Qualified Code(s): I10 - Essential (primary) hypertension (9) Anemia Anemia type: other cause Other causes of anemia: acute posthemorrhagic Qualified Code(s): D62 - Acute posthemorrhagic anemia
[2023-12-24] MEDS: LANTUS PER UNIT CHARGE SQ SCH ×2 (08:17→22:39)
--- NOTE | 2023-12-24 10:13 | Billing Data ---
Date of Service December 24, 2023 Coding Level of Care Code 47140 SUB INP/OBS CARE
[2023-12-24] MEDS ORDERED: LANTUS PER UNIT CHARGE SQ SCH (21:00)
--- NOTE | 2023-12-25 07:18 | Hospitalist Progress Note ---
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 twice daily, mirtazapine 45 mg p.o. nightly, quetiapine 100 mg p.o. nightly, and venlafaxine 150mg (decreased from 225mg on 12/20) p.o. nightly -hopefully can titrate off venlafaxine as this may be too stimulating in conjunction with mirtazapine. -EEG completed if aspect of temporal seizure, no abnormalities noted. -Discussed trialing 1 week course of Prednisone - started on prednisone 40mg daily with taper and check response. Need for retirement care facility -Placement remains an important consideration it was initially unclear, though presumed that dispo would be to her sister's and [id number]'s house as they are medical POA. -12/08: Received letter from law office (representing sister and [id number]) relinquishing medical POA/"decision making authority", and asking to "not contact them regarding [patient]." -Informed patient with son present. -Awaiting CM referral to multiple personal care homes able to accept patient. * CM: renewed search for long-term care facility- awaiting placement. DM -Last HbA1c 7.9 during last admit -Patient on Lantus 15 mg BID outpatient; reduced to 10 units on admission, increased to 16units BID with steroid. -Tightened SSI control. Asymptomatic bacteriuria -Treated in the ED with daptomycin x1; pt last grew MSSA in urine -Blood cx neg; urine cx grew staph -ABX discontinued. Patient remains asymptomatic. Afib -Chronic, stable -Continue with metoprolol 25 mg BID, Eliquis 5 mg BID HTN -Continue home medications. 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 No complaints. Notes that she is awaiting other living situations, loosely relates that she may be able to live with her niece in a similar arrangement that she attempted with her sister, but notes that her niece is a NEUROLOGY HOSPITALIST, and seems much less rattled by the patient's bad daysbut then when asked about specifics, she later relates that she would not be living with her niece, so it is not clear how far she is gone down actually pursuing this as a viable option. Also notes that she is looking for houses, but is unable to actually look at them herself, and that other people were looking at them for hernoting that Will is looking at houses for her. Vitals noted, in general she is awake and alert pleasant no distress. Facial abrasions healing nicely. Breathing unlabored no accessory muscle use good effort. Skin without rashes pallor or icterus. Neuro without focal deficits. Reindeer sitting on her bed, picture of Will not on her phone or tablet today, although she does mention him looking at houses for her. prior cryptococcal meningitis with subsequent hallucinations/delusionsescalation of antipsychotic medicines versus supportive environment versus bothbut patient has not had any notably dysphoric days, although she still hallucinates about Will, and supposedly also the reindeer. Continue current management. EEG to ensure ?not temporal seizures was quite normal. slowly wean venlafaxine - ?causing stimulation in concert with mirtazipine. On literature review, case studies of geriatric patients with inflammatory findings such as she had meningeal he when they are post treatment for cryptococcal meningitis have at least shown some degree of response to corticosteroids sometimes. Given that she has had follow-up LPs/follow-up infectious disease workup, and it seems that the infection itself has been gordon ated, risk for a trial of corticosteroids appears to be fairly low, and while I discussed with the patient that I doubt we are going to affect improvement, giving a trial of corticosteroids in the hopes that we might certainly seems more rational than simply writing off a treatment line that, while low probability of benefit, is also a fairly low risk. Given that we started 40 mg of prednisone 12/22 and will follow for any response. Thus far seems to not have had any meaningful response - which is not surprising - would probably continue steroids another 2-4 days before concluding that this was a therapeutic trial of no benefit. Obviously response will be a little bit tough to gaugediscussed with the patient that it will be fairly hard for her to discern hallucinations/delusions when she believes them to be real, particularly given that she has not had dysphoric days since being here. Reindeer still on the bed, and mentioning that Will is who is looking at houses for her pleads against improvement thus far. Again though, given that the only alternative is really essentially assuming that her life is forever altered with this (which it may be) the risk/benefit of at least trying a therapeutic trial of corticosteroids, based on case reports in the literature, it is reasonableparticularly given that she is here in the hospital in a safe environment with close supervision. Continue to titrate insulins to match hyperglycemia. Case management working on disposition. has been difficult. Subjective Patient doing well today, not noticing too much of a difference with the start of the steroid. Review of Systems Review of Systems: As per above Physical Exam Constitutional: WD/WN, vitals as above Eyes: PERRL, conjunctivae normal, anicteric sclerae Respiratory: normal respiratory effort Psychiatric: A+Ox3, euthymic affect Results & Data Results & Data Vital Signs (Past 12 Hours) Vital Signs Temp Pulse Resp BP Pulse Ox O2 Del Method 12/24/23 19:45 36.8 C 82 14 178/95 H 98 Room Air Resident Activity Tracking Resident Involvement: Resident Care Provided Care Provided: Adult Hospital Medicine (1) UTI (urinary tract infection) Hematuria presence: without hematuria Urinary tract infection type: site unspecified Qualified Code(s): N39.0 - Urinary tract infection, site not specified (2) Altered mental state Altered mental status type: unspecified Qualified Code(s): R41.82 - Altered mental status, unspecified (6) Depression Depression Type: unspecified Qualified Code(s): F32.9 - Major depressive disorder, single episode, unspecified (8) Hypertension Hypertension type: essential hypertension Qualified Code(s): I10 - Essential (primary) hypertension (9) Anemia Anemia type: other cause Other causes of anemia: acute posthemorrhagic Qualified Code(s): D62 - Acute posthemorrhagic anemia
--- NOTE | 2023-12-25 13:18 | Billing Data ---
Date of Service December 25, 2023 Coding Level of Care Code 13775 SUB INP/OBS CARE
--- NOTE | 2023-12-26 07:34 | Hospitalist Progress Note ---
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 twice daily, mirtazapine 45 mg p.o. nightly, quetiapine 100 mg p.o. nightly, and venlafaxine 150mg (decreased from 225mg on 12/20) p.o. nightly -Hopefully can titrate off venlafaxine as this may be too stimulating in conjunction with mirtazapine. -EEG completed if aspect of temporal seizure, no abnormalities noted. -Discussed trialing 1 week course of Prednisone - started on prednisone 40mg daily with taper and check response over the next few days Need for long-term care facility -Placement remains an important consideration it was initially unclear, though presumed that dispo would be to her sister's and [id number]'s house as they are medical POA. -12/08: Received letter from law office (representing sister and [id number]) relinquishing medical POA/"decision making authority", and asking to "not contact them regarding [patient]." -Informed patient with son present -Awaiting CM referral to multiple personal care homes able to accept patient DM -Last HbA1c 7.9 during last admit -Patient on Lantus 15 mg BID outpatient; reduced to 10 units on admission, increased to 16units BID with steroid. -Tightened SSI control. Asymptomatic bacteriuria -Treated in the ED with daptomycin x1; pt last grew MSSA in urine -Blood cx neg; urine cx grew staph -ABX discontinued. Patient remains asymptomatic. Afib -Chronic, stable -Continue with metoprolol 25 mg BID, Eliquis 5 mg BID HTN -Continue home medications. 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 Agitation with hallucinations and delusions- recurrent admissions for same and resolution of symptoms with hospital routines/cares. -etiology of underlying deficit unclear. ? induced by prior cryptococcal meningitis. -has been started on steroids this admission as trial. symptoms have improved but not certain that it is d/t steroids. -could consider d/c it in am. -continue seroquel 100mgs hs, Risperdal 2 mg bid, mirtazapine 45 mg hs, venlafaxine 150mg (decreased from 225mg on 12/20) hs Need for shelter placement - -has developed significant cognitive difficulties overtime related to independent living skills. 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 Patient seen and examined at bedside. Patient was resting in bed at time of encounter with headphones in, she denies any specific complaints and denies any side effects from current steroid dosing. Review of Systems Review of Systems: As per above Physical Exam Constitutional: WD/WN, vitals as above Eyes: + anicteric sclerae; no conjunctival abn ormality ENMT: Ears: no external ear abnormality Nose: no external nose abnormality Respiratory: normal respiratory effort; does not use accessory muscles Cardiovascular: Extremities: no edema Musculoskeletal: Moves limbs independently Skin: no rashes, warm and dry Neurologic: no focal motor deficits Psychiatric: Insight: + impaired insight Judgment: + impaired judgement Results & Data Results & Data Vital Signs (Past 12 Hours) Vital Signs Temp Pulse Resp BP O2 Del Method 12/25/23 20:27 36.6 C 77 18 164/96 H Room Air Resident Activity Tracking Resident Involvement: Resident Care Provided Care Provided: Adult Hospital Medicine (1) UTI (urinary tract infection) Hematuria presence: without hematuria Urinary tract infection type: site unspecified Qualified Code(s): N39.0 - Urinary tract infection, site not specified (2) Altered mental state Altered mental status type: unspecified Qualified Code(s): R41.82 - Altered mental status, unspecified (6) Depression Depression Type: unspecified Qualified Code(s): F32.9 - Major depressive disorder, single episode, unspecified (8) Hypertension Hypertension type: essential hypertension Qualified Code(s): I10 - Essential (primary) hypertension (9) Anemia Anemia type: other cause Other causes of anemia: acute posthemorrhagic Qualified Code(s): D62 - Acute posthemorrhagic anemia
[2023-12-26] MEDS: LANTUS PER UNIT CHARGE SQ SCH (21:04)
--- NOTE | 2023-12-27 07:32 | Hospitalist Progress Note ---
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 twice daily, mirtazapine 45 mg p.o. nightly, quetiapine 100 mg p.o. nightly, and venlafaxine 150mg (decreased from 225mg on 12/20) p.o. nightly -Hopefully can titrate off venlafaxine as this may be too stimulating in conjunction with mirtazapine. -EEG completed if aspect of temporal seizure, no abnormalities noted. -Discussed trialing 1 week course of Prednisone - started on prednisone 40mg daily but now discontinuing due to no improvement of symptoms. 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 -12/08: Received letter from law office (representing sister and [id number]) relinquishing medical POA/"decision making authority", and asking to "not contact them regarding [patient]." -Informed patient with son present -Awaiting CM referral to multiple personal care homes able to accept patient DM -Last HbA1c 7.9 during last admit -Patient on Lantus 15 mg BID outpatient; reduced to 10 units on admission, increased to 16units BID with steroid. -Tightened SSI control. Asymptomatic bacteriuria -Treated in the ED with daptomycin x1; pt last grew MSSA in urine -Blood cx neg; urine cx grew staph -ABX discontinued. Patient remains asymptomatic. Afib -Chronic, stable -Continue with metoprolol 25 mg BID, Eliquis 5 mg BID HTN -Continue home medications. 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 Agitation with hallucinations and delusions- recurrent admissions for same and resolution of symptoms with hospital routines/cares. -etiology of underlying deficit unclear. ? induced by prior cryptococcal meningitis. -agitation improved. hallucinations waxing/waning. -was started on steroids this admission as trial. unclear role - will d/c since she was up most of night and felt wired up. 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 -will need long-term placement h/o Cryptococcal meningitis - continue suppressive fluconazole Subjective Patient seen and examined at bedside. She reports a headache and some nasal congestion this morning. Per nursing, patient called 911 this morning due to concern for her boyfriend "Will" being "locked up in a silo" and stated that he "has no arms or legs". She notes that she slept poorly last night as she felt "wound up." Review of Systems Review of Systems: As per above Physical Exam Constitutional: WD/WN, vitals as above Eyes: + anicteric sclerae; no conjunctival abn ormality ENMT: Ears: no external ear abnormality Nose: no external nose abnormality moist mucous membranes Respiratory: normal respiratory effort; does not use accessory muscles Cardiovascular: Extremities: no edema Skin: no rashes, warm and dry Neurologic: no focal motor deficits Psychiatric: Insight: + impaired insight Judgment: + impaired judgement Resident Activity Tracking Resident Involvement: Resident Care Provided Care Provided: Adult Hospital Medicine (1) UTI (urinary tract infection) Hematuria presence: without hematuria Urinary tract infection type: site unspecified Qualified Code(s): N39.0 - Urinary tract infection, site not specified (2) Altered mental state Altered mental status type: unspecified Qualified Code(s): R41.82 - Altered mental status, unspecified (6) Depression Depression Type: unspecified Qualified Code(s): F32.9 - Major depressive disorder, single episode, unspecified (8) Hypertension Hypertension type: essential hypertension Qualified Code(s): I10 - Essential (primary) hypertension (9) Anemia Anemia type: other cause Other causes of anemia: acute posthemorrhagic Qualified Code(s): D62 - Acute posthemorrhagic anemia
[2023-12-27] MEDS: LANTUS PER UNIT CHARGE SQ SCH (08:40)
[2023-12-27] MEDS: MELATONIN 3 MG TAB PO PRN (21:07)
--- NOTE | 2023-12-28 14:52 | Hospitalist Progress Note ---
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 twice daily, mirtazapine 45 mg p.o. nightly, quetiapine 100 mg p.o. nightly, and venlafaxine 150mg (decreased from 225mg on 12/20) p.o. nightly -Hopefully can titrate off venlafaxine as this may be too stimulating in conjunction with mirtazapine. -EEG completed if aspect of temporal seizure, no abnormalities noted. -Trialed brief course of Prednisone - started on prednisone 40mg daily but discontinued due to no improvement of symptoms. Need for [facility] care facility -Placement remains an important consideration it was initially unclear, though presumed that dispo would be to her sister's and [id number]'s house as they are medical POA. -12/08: Received letter from law office (representing sister and [id number]) relinquishing medical POA/"decision making authority", and asking to "not contact them regarding [patient]." -Informed patient with son present -Awaiting CM referral to multiple personal care homes able to accept patient DM -Last HbA1c 7.9 during last admit -Patient on Lantus 15 mg BID outpatient; modified while on steroid course. -Tightened SSI control. Asymptomatic bacteriuria -Treated in the ED with daptomycin x1; pt last grew MSSA in urine -Blood cx neg; urine cx grew staph -ABX discontinued. Patient remains asymptomatic. Afib -Chronic, stable -Continue with metoprolol 25 mg BID, Eliquis 5 mg BID HTN -Continue home medications. 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 Agitation with hallucinations and delusions- recurrent admissions for same and resolution of symptoms with hospital routines/cares. -etiology of underlying deficit unclear. ? induced by prior cryptococcal meningitis. -agitation improved. hallucinations waxing/waning. -was started on steroids this admission as trial. unclear role - will d/c since she was up most of night and felt wired up. 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 -awaiting care home placement h/o Cryptococcal meningitis - continue suppressive fluconazole DM - blood sugars elevated due to non-adherence to diet. also had prednisone. -continue insulin - basal and meal time Subjective Patient seen and examined at bedside. Patient notes she had some some nausea this morning but was able to eat her breakfast. She denies any other complaints or concerns today. Review of Systems Review of Systems: As per above Physical Exam Constitutional: WD/WN, vitals as above Eyes: + anicteric sclerae; no conjunctival abn ormality ENMT: Ears: no external ear abnormality Nose: no external nose abnormality Moist mucous membranes Respiratory: normal respiratory effort; does not use accessory muscles Cardiovascular: Extremities: no edema Limbs appear well perfused Skin: no rashes, warm and dry Neurologic: no focal motor deficits Psychiatric: Insight: + impaired insight Judgment: + impaired judgement Results & Data Results & Data Vital Signs (Past 12 Hours) Vital Signs Temp Pulse Pulse Resp BP Pulse Ox O2 Del Method 12/28/23 08:30 61 12/28/23 07:33 36.5 C 59 L 18 124/68 99 Room Air Resident Activity Tracking Resident Involvement: Resident Care Provided Care Provided: Adult Hospital Medicine (1) UTI (urinary tract infection) Hematuria presence: without hematuria Urinary tract infection type: site unspecified Qualified Code(s): N39.0 - Urinary tract infection, site not specified (2) Altered mental state Altered mental status type: unspecified Qualified Code(s): R41.82 - Altered mental status, unspecified (6) Depression Depression Type: unspecified Qualified Code(s): F32.9 - Major depressive disorder, single episode, unspecified (8) Hypertension Hypertension type: essential hypertension Qualified Code(s): I10 - Essential (primary) hypertension (9) Anemia Anemia type: other cause Other causes of anemia: acute posthemorrhagic Qualified Code(s): D62 - Acute posthemorrhagic anemia
[2023-12-28] MEDS: LANTUS PER UNIT CHARGE SQ SCH (21:04)
--- NOTE | 2023-12-29 07:42 | Hospitalist Progress Note ---
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 twice daily, mirtazapine 45 mg p.o. nightly, quetiapine 100 mg p.o. nightly, and venlafaxine 150mg (decreased from 225mg on 12/20) p.o. nightly -Hopefully can titrate off venlafaxine as this may be too stimulating in conjunction with mirtazapine. -EEG completed if aspect of temporal seizure, no abnormalities noted. -Trialed brief course of Prednisone - started on prednisone 40mg daily but discontinued due to no improvement of symptoms. Need for longterm care facility -Placement remains an important consideration it was initially unclear, though presumed that dispo would be to her sister's and [id number]'s house as they are medical POA. -12/08: Received letter from law office (representing sister and [id number]) relinquishing medical POA/"decision making authority", and asking to "not contact them regarding [patient]." -Informed patient with son present -Awaiting CM referral to multiple personal care homes able to accept patient DM -Last HbA1c 7.9 during last admit -Patient on Lantus 15 mg BID outpatient; modified while on steroid course. -Glycemic consult placed due to recurrent episodes of hypoglycemia and hyperglycemia Asymptomatic bacteriuria -Treated in the ED with daptomycin x1; pt last grew MSSA in urine -Blood cx neg; urine cx grew staph -ABX discontinued. Patient remains asymptomatic. Afib -Chronic, stable -Continue with metoprolol 25 mg BID, Eliquis 5 mg BID HTN -Continue home medications. 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 Agitation with hallucinations and delusions- recurrent admissions for same and resolution of symptoms with hospital routines/cares. -etiology of underlying deficit unclear. ? induced by prior cryptococcal meningitis. -agitation improved. hallucinations waxing/waning. -was started on steroids this admission as trial. unclear role - will d/c since she was up most of night and felt wired up. 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 -awaiting group home placement h/o Cryptococcal meningitis - continue suppressive fluconazole DM - Glycemic consult in place. -continue insulin - basal and meal time Subjective Patient seen and examined at bedside, notes she is beginning to develop a stye at her left eye this morning. She is currently holding a warm compress over her eye which she states usually helps her. Review of Systems Review of Systems: As per above Physical Exam Constitutional: WD/WN, vitals as above Eyes: + anicteric sclerae; no conjunctival abn ormality Some erythema around left eyelid ENMT: Ears: no external ear abnormality Nose: no external nose abnormality Respiratory: normal respiratory effort; does not use accessory muscles Cardiovascular: Extremities: no edema Skin: no rashes, warm and dry Neurologic: no focal motor deficits Psychiatric: Insight: + impaired insight Judgment: + impaired judgement Results & Data Results & Data Vital Signs (Past 12 Hours) Vital Signs Temp Pulse Resp BP Pulse Ox O2 Del Method 12/28/23 21:28 Room Air 12/28/23 20:55 36.7 C 68 17 128/79 97 Room Air Resident Activity Tracking Resident Involvement: Resident Care Provided Care Provided: Adult Hospital Medicine (1) UTI (urinary tract infection) Hematuria presence: without hematuria Urinary tract infection type: site unspecified Qualified Code(s): N39.0 - Urinary tract infection, site not specified (2) Altered mental state Altered mental status type: unspecified Qualified Code(s): R41.82 - Altered mental status, unspecified (6) Depression Depression Type: unspecified Qualified Code(s): F32.9 - Major depressive disorder, single episode, unspecified (8) Hypertension Hypertension type: essential hypertension Qualified Code(s): I10 - Essential (primary) hypertension (9) Anemia Anemia type: other cause Other causes of anemia: acute posthemorrhagic Qualified Code(s): D62 - Acute posthemorrhagic anemia
[2023-12-29] MEDS ORDERED: PHARMACY GLYCEMIC MGMT CONSULT PRN (08:11)
[2023-12-29] MEDS: LANTUS PER UNIT CHARGE SQ SCH ×3 (09:26→20:33)
--- NOTE | 2023-12-29 09:46 | Pharmacy Report ---
Pharmacy Glycemic Short Note 2 - Date of Service December 29, 2023 - Glycemic Short BSG Results (Last 24 hours): 12/28/23 12/28/23 12/28/23 11:29 16:31 17:32 POC Glucose 248 H 74 72 12/28/23 12/29/23 12/29/23 20:52 07:55 07:56 POC Glucose 146 H 64 L* 65 L* 12/29/23 08:51 POC Glucose 132 H OUTPATIENT ANTIDIABETIC REGIMEN: * Lantus 8 units bid, Novolog 4 units with meals + SSI (follows [facility] 11/21/23 - last appt and lists this dosing) * A1c 7.9% ASSESSMENT: * 63 year female admitted with UTI/AMS. Pharmacy consulted to assist with glycemic management. Recently completed course of PO prednisone 12/26. BSGs starting to improve yesterday. At time of consult this AM, fasting BSG low at 64 mg/dL - will plan to scale back as no steroids further ordered. Will scale back ~30-40% with basal insulin. Lunch BSGs tend to be elevated each day. Patient likely requiring tighter CR with breakfast and looser rest of day. PLAN FOR INPATIENT GLYCEMIC CONTROL: * Hold outpatient oral diabetes medications * Basal insulin * Lantus 10 units this AM * Lantus HS 8-15 units based upon BSG value * Bolus insulin * NovoLog per scale ACHS or Q6hrs while NPO * Goal Range: Low 110 mg/dL - High 140 mg/dL * Correction Factor: 20 mg/dL/unit with breakfast - CF 35 rest of day * Nutritional / Prandial insulin per carb ratio of 1 unit per 8 grams CHO consumed with breakfast - CR 13 rest of day
[2023-12-30] MEDS: LANTUS PER UNIT CHARGE SQ SCH (08:15)
--- NOTE | 2023-12-30 09:52 | Hospitalist Progress Note ---
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 twice daily, mirtazapine 45 mg p.o. nightly, quetiapine 100 mg p.o. nightly, and venlafaxine 150mg (decreased from 225mg on 12/20) p.o. nightly -Hopefully can titrate off venlafaxine as this may be too stimulating in conjunction with mirtazapine. -EEG completed if aspect of temporal seizure, no abnormalities noted. -Trialed brief course of Prednisone - started on prednisone 40mg daily but discontinued due to no improvement of symptoms. Need for skilled nursing care facility -Placement remains an important consideration it was initially unclear, though presumed that dispo would be to her sister's and sulifpu-uh-gre's house as they are medical POA. -12/08: Received letter from law office (representing sister and [id number]) relinquishing medical POA/"decision making authority", and asking to "not contact them regarding [patient]." -Informed patient with son present -Awaiting CM referral to multiple personal care homes able to accept patient DM -Last HbA1c 7.9 during last admit -Patient on Lantus 15 mg BID outpatient; modified while on steroid course. -Glycemic consult placed due to recurrent episodes of hypoglycemia and hyperglycemia -Will obtain updated serum creatinine today per pharmacy request Asymptomatic bacteriuria -Treated in the ED with daptomycin x1; pt last grew MSSA in urine -Blood cx neg; urine cx grew staph -ABX discontinued. Patient remains asymptomatic. Afib -Chronic, stable -Continue with metoprolol 25 mg BID, Eliquis 5 mg BID HTN -Continue home medications. 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 slept well overnight. no concerns. AAOx3, comfortable in bed. Agitation with hallucinations and delusions- recurrent admissions for same and resolution of symptoms with hospital routines/cares. -etiology of underlying deficit unclear. ? induced by prior cryptococcal meningitis. -agitation improved. hallucinations waxing/waning. -was started on steroids this admission as trial. unclear role - will d/c since she was up most of night and felt wired up. -continue seroquel 100mgs hs, Risperdal 2 mg bid, mirtazapine 45 mg hs, venlafaxine 150mg (decreased from 225mg on 12/20) hs [facility] for [place] [facility] - -has developed significant cognitive difficulties overtime related to independent living skills. 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 -continue insulin - basal and meal time Subjective Patient seen at the bedside doing well without acute complaints. No overnight events. Review of Systems Review of Systems: As per above Physical Exam Constitutional: WD/WN, vitals as above Eyes: PERRL, conjunctivae normal, anicteric sclerae Respiratory: normal respiratory effort Skin: no rashes, warm and dry Psychiatric: A+Ox3, euthymic affect Results & Data Results & Data Vital Signs (Past 12 Hours) Vital Signs Temp Pulse Resp BP Pulse Ox O2 Del Method 12/30/23 08:20 67 12/30/23 07:11 36.5 C 59 L 18 142/83 H 98 Room Air Resident Activity Tracking Resident Involvement: Resident Care Provided Care Provided: Adult Hospital Medicine (1) UTI (urinary tract infection) Hematuria presence: without hematuria Urinary tract infection type: site unspecified Qualified Code(s): N39.0 - Urinary tract infection, site not specified (2) Altered mental state Altered mental status type: unspecified Qualified Code(s): R41.82 - Altered mental status, unspecified (6) Depression Depression Type: unspecified Qualified Code(s): F32.9 - Major depressive disorder, single episode, unspecified (8) Hypertension Hypertension type: essential hypertension Qualified Code(s): I10 - Essential (primary) hypertension (9) Anemia Anemia type: other cause Other causes of anemia: acute posthemorrhagic Qualified Code(s): D62 - Acute posthemorrhagic anemia
[2023-12-30 13:43] LABS: Creatinine Clr Calc Pharmacy 48.6 ml/min; Est GFR (African American) 68.1 ml/min; Est GFR (Non-African American) 58.8 ml/min
--- NOTE | 2023-12-30 14:01 | Pharmacy Report ---
Pharmacy Glycemic Short Note 2 - Date of Service December 30, 2023 - Glycemic Short BSG Results (Last 24 hours): 12/29/23 12/29/23 12/30/23 16:41 20:24 07:09 POC Glucose 200 H 81 97 12/30/23 11:53 POC Glucose 284 H OUTPATIENT ANTIDIABETIC REGIMEN: * Lantus 8 units SQ BID * Novolog 4 units SQ with meals + SSI (follows [facility] 11/21/23 - last appt, lists this dosing) * HbA1c: 7.9% (11/14/23) ASSESSMENT: 12/29 * Pt received 32 units of insulin yesterday (18 units basal, 14 units bolus), with BSGs 64, 132, 279, 200, 81. * Novolog parameters adjusted this morning in an effort to achieve better control throughout the day. * Lantus dose decreased slightly d/t fasting BSG below goal this morning (97 mg/dL). * Pharmacy will continue to follow and adjust regimen as indicated. 12/28 * 63 year female admitted with UTI/AMS. Pharmacy consulted to assist with glycemic management. Recently completed course of PO prednisone 12/26. BSGs starting to improve yesterday. At time of consult this AM, fasting BSG low at 64 mg/dL - will plan to scale back as no steroids further ordered. Will scale back ~30-40% with basal insulin. Lunch BSGs tend to be elevated each day. Patient likely requiring tighter CR with breakfast and looser rest of day. PLAN FOR INPATIENT GLYCEMIC CONTROL: * Hold outpatient oral diabetes medications * Basal insulin * Lantus 8 units SQ BID * Bolus insulin * NovoLog per scale ACHS or Q6hrs while NPO * Goal Range: Low 110 mg/dL - High 150 mg/dL * Correction Factor: 35 mg/dL/unit * Nutritional / Prandial insulin per carb ratio of 1 unit per 10 grams CHO consumed
--- NOTE | 2023-12-31 07:08 | Hospitalist Progress Note ---
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 twice daily, mirtazapine 45 mg p.o. nightly, quetiapine 100 mg p.o. nightly, and venlafaxine 150mg (decreased from 225mg on 12/20) p.o. nightly -EEG completed if aspect of temporal seizure, no abnormalities noted. -Trialed brief course of Prednisone - started on prednisone 40mg daily but discontinued due to no improvement of symptoms. Need for halfway care facility -Placement remains an important consideration it was initially unclear, though presumed that dispo would be to her sister's and [id number]'s house as they are medical POA. -12/08: Received letter from law office (representing sister and lamazvn-ri-arb) relinquishing medical POA/"decision making authority", and asking to "not contact them regarding [patient]." -Awaiting CM referral to multiple personal care homes able to accept patient DM2 -Last HbA1c 7.9 during last admit -Patient on Lantus 15 mg BID outpatient; modified while on steroid course. -Glycemic consult placed due to recurrent episodes of hypoglycemia and hyperglycemia -Will obtain updated serum creatinine today per pharmacy request Asymptomatic bacteriuria -Treated in the ED with daptomycin x1; pt last grew MSSA in urine -Blood cx neg; urine cx grew staph -ABX discontinued. Patient remains asymptomatic. Afib -Chronic, stable -Continue with metoprolol 25 mg BID, Eliquis 5 mg BID HTN -Continue home medications. 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 Agitation with hallucinations and delusions- recurrent admissions for same and resolution of symptoms with hospital routines/cares. 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 ? induced by prior cryptococcal meningitis. -agitation improved. hallucinations waxing/waning. -was started on steroids this admission as trial. unclear role - will d/c since she was up most of night and felt wired up. -continue seroquel 100mgs hs, Risperdal 2 mg bid, mirtazapine 45 mg hs, venlafaxine 150mg (decreased from 225mg on 12/20) hs Need for usp placement - -has developed significant cognitive difficulties overtime related to independent living skills. -awaiting usp placement h/o Cryptococcal meningitis - continue suppressive fluconazole DM - Glycemic consult in place. -continue insulin - basal and meal time Subjective Patient awake, reading on arrival this morning. No acute complaints. No acute events overnight. Review of Systems Review of Systems: All systems reviewed & are unremarkable except as noted in HPI & below Physical Exam Physical Exam: General: no acute distress Resp: good inspiratory effort, no labored breathing HEENT: conjunctivae appear clear, no audible congestion, facial bruise continues to improve Skin: skin appears dry, normal coloration, no rash visible on exposed skin areas Neuro: alert and oriented x3, no focal deficits appreciated Psych: euthymic affect, pleasant and interactive, logical thought process Results & Data Results & Data Vital Signs (Past 12 Hours) Vital Signs Temp Pulse Resp BP Pulse Ox O2 Del Method 12/30/23 20:46 Room Air 12/30/23 20:41 36.6 C 70 16 136/81 100 Room Air Resident Activity Tracking Resident Involvement: Resident Care Provided Care Provided: Adult Hospital Medicine (1) UTI (urinary tract infection) Hematuria presence: without hematuria Urinary tract infection type: site unspecified Qualified Code(s): N39.0 - Urinary tract infection, site not specified (2) Altered mental state Altered mental status type: unspecified Qualified Code(s): R41.82 - Altered mental status, unspecified (6) Depression Depression Type: unspecified Qualified Code(s): F32.9 - Major depressive disorder, single episode, unspecified (8) Hypertension Hypertension type: essential hypertension Qualified Code(s): I10 - Essential (primary) hypertension (9) Anemia Anemia type: other cause Other causes of anemia: acute posthemorrhagic Qualified Code(s): D62 - Acute posthemorrhagic anemia
[2023-12-31] MEDS: LANTUS PER UNIT CHARGE SQ SCH (08:32)
--- NOTE | 2023-12-31 13:47 | Pharmacy Report ---
Pharmacy Glycemic Short Note 2 - Date of Service December 31, 2023 - Glycemic Short BSG Results (Last 24 hours): 12/30/23 12/30/23 12/31/23 16:44 20:25 07:38 POC Glucose 234 H 123 H 150 H 12/31/23 11:48 POC Glucose 217 H OUTPATIENT ANTIDIABETIC REGIMEN: * Lantus 8 units SC BID * Novolog 4 units SC with meals + SSI (follows [facility] 11/21/23 - last appt, lists this dosing) * HbA1c: 7.9% (11/14/23) ASSESSMENT: 12/30: * Lynne received 35 units of insulin yesterday, 16 basal + 19 bolus. BSGs were: 02-437-306-123 mg/dL. * Fasting BSG 150 mg/dL this AM. Will increase basal by ~20% today. * Given trend up in BSG again at lunch today, will tighten CF/CR starting with dinner. 12/29: * Pt received 32 units of insulin yesterday (18 units basal, 14 units bolus), with BSGs 64, 132, 279, 200, 81. * Novolog parameters adjusted this morning in an effort to achieve better control throughout the day. * Lantus dose decreased slightly d/t fasting BSG below goal this morning (97 mg/dL). * Pharmacy will continue to follow and adjust regimen as indicated. 12/28: * 63 year female admitted with UTI/AMS. Pharmacy consulted to assist with glycemic management. Recently completed course of PO prednisone 12/26. BSGs starting to improve yesterday. At time of consult this AM, fasting BSG low at 64 mg/dL - will plan to scale back as no steroids further ordered. Will scale back ~30-40% with basal insulin. Lunch BSGs tend to be elevated each day. Patient likely requiring tighter CR with breakfast and looser rest of day. PLAN FOR INPATIENT GLYCEMIC CONTROL: * Basal insulin * Lantus 10 units SC BID * Bolus insulin * NovoLog per scale ACHS or Q6hrs while NPO * Goal Range: Low 110 mg/dL - High 150 mg/dL * Correction Factor: 25 mg/dL/unit * Nutritional / Prandial insulin per carb ratio of 1 unit per 9 grams CHO consumed
--- NOTE | 2024-01-01 08:23 | Hospitalist Progress Note ---
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 twice daily, mirtazapine 45 mg p.o. nightly, quetiapine 100 mg p.o. nightly, and venlafaxine 150mg (decreased from 225mg on 12/20) p.o. nightly -EEG completed if aspect of temporal seizure, no abnormalities noted. -Trialed brief course of Prednisone - started on prednisone 40mg daily but discontinued due to no improvement of symptoms. Need for group home care facility -Placement remains an important consideration it was initially unclear, though presumed that dispo would be to her sister's and [id number]'s house as they are medical POA. -12/08: Received letter from law office (representing sister and [id number]) relinquishing medical POA/"decision making authority", and asking to "not contact them regarding [patient]." -Awaiting CM referral to multiple personal care homes able to accept patient DM2 -Last HbA1c 7.9 during last admit -Patient on Lantus 15 mg BID outpatient; modified while on steroid course. -Glycemic consult placed due to recurrent episodes of hypoglycemia and hyperglycemia -Will obtain updated serum creatinine today per pharmacy request Asymptomatic bacteriuria -Treated in the ED with daptomycin x1; pt last grew MSSA in urine -Blood cx neg; urine cx grew staph -ABX discontinued. Patient remains asymptomatic. Afib -Chronic, stable -Continue with metoprolol 25 mg BID, Eliquis 5 mg BID HTN -Continue home medications. 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 Agitation with hallucinations and delusions- recurrent admissions for same and resolution of symptoms with hospital routines/cares. 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 ? induced by prior cryptococcal meningitis. -agitation improved. hallucinations waxing/waning. -was started on steroids this admission as trial. unclear role since mentation has cleared each admission maintaining hospital routines/carea. -continue seroquel 100mgs hs, Risperdal 2 mg bid, mirtazapine 45 mg hs, venla faxine 150mg (decreased from 225mg on 12/20) hs Need for extermination inspector placement - -has developed significant cognitive difficulties overtime related to independent living skills. -awaiting extermination inspector placement h/o Cryptococcal meningitis - continue suppressive fluconazole DM - Glycemic consult in place. -continue insulin - basal and meal time Subjective Patient is awake and seated upright on arrival this morning. Her diarrhea from last night is improved. She is almost done finding a house to buy with her "boyfriend." She also intends to have her niece, a nurse practitioner, live with them (unclear if she actually has a niece, or a niece who is, in fact, a nurse practitioner). She has no other complaints. Review of Systems Review of Systems: All systems reviewed & are unremarkable except as noted in HPI & below Physical Exam Physical Exam: General: no acute distress, speaking in full sentences Resp: good inspiratory effort, no labored breathing HEENT: conjunctivae appear clear, no audible congestion, no swelling noted face or lips Skin: skin appears dry, normal coloration, no rash visible on exposed skin areas Neuro: alert and oriented x3, no focal deficits appreciated Psych: euthymic affect, pleasant and interactive, logical thought process Results & Data Results & Data Vital Signs (Past 12 Hours) Vital Signs Temp Pulse Resp BP Pulse Ox O2 Del Method 01/01/24 07:28 36.5 C 64 16 130/76 100 Room Air 12/31/23 21:45 Room Air 12/31/23 21:39 36.8 C 72 16 127/78 99 Room Air Resident Activity Tracking Resident Involvement: Resident Care Provided Care Provided: Adult Hospital Medicine (1) UTI (urinary tract infection) Hematuria presence: without hematuria Urinary tract infection type: site unspecified Qualified Code(s): N39.0 - Urinary tract infection, site not specified (2) Altered mental state Altered mental status type: unspecified Qualified Code(s): R41.82 - Altered mental status, unspecified (6) Depression Depression Type: unspecified Qualified Code(s): F32.9 - Major depressive disorder, single episode, unspecified (8) Hypertension Hypertension type: essential hypertension Qualified Code(s): I10 - Essential (primary) hypertension (9) Anemia Anemia type: other cause Other causes of anemia: acute posthemorrhagic Qualified Code(s): D62 - Acute posthemorrhagic anemia
--- NOTE | 2024-01-01 09:27 | Pharmacy Report ---
Pharmacy Glycemic Short Note 2 - Date of Service January 01, 2024 - Glycemic Short BSG Results (Last 24 hours): 12/31/23 12/31/23 12/31/23 11:48 16:47 21:16 POC Glucose 217 H 118 H 152 H 01/01/24 07:31 POC Glucose 118 H OUTPATIENT ANTIDIABETIC REGIMEN: * Lantus 8 units SC BID * Novolog 4 units SC with meals + SSI (follows [facility] 11/21/23 - last appt, lists this dosing) * HbA1c: 7.9% (11/14/23) ASSESSMENT: 12/31: * Received 20 units basal + 26 units bolus yesterday. BSGs were: 841-114-363-152 mg/dL. * Fasting BSG was 118 mg/dL this AM. * No changes necessary to regimen today. 12/30: * Lynne received 35 units of insulin yesterday, 16 basal + 19 bolus. BSGs were: 00-811-081-123 mg/dL. * Fasting BSG 150 mg/dL this AM. Will increase basal by ~20% today. * Given trend up in BSG again at lunch today, will tighten CF/CR starting with dinner. 12/29: * Pt received 32 units of insulin yesterday (18 units basal, 14 units bolus), with BSGs 64, 132, 279, 200, 81. * Novolog parameters adjusted this morning in an effort to achieve better control throughout the day. * Lantus dose decreased slightly d/t fasting BSG below goal this morning (97 mg/dL). * Pharmacy will continue to follow and adjust regimen as indicated. 12/28: * 63 year female admitted with UTI/AMS. Pharmacy consulted to assist with glycemic management. Recently completed course of PO prednisone 12/26. BSGs starting to improve yesterday. At time of consult this AM, fasting BSG low at 64 mg/dL - will plan to scale back as no steroids further ordered. Will scale back ~30-40% with basal insulin. Lunch BSGs tend to be elevated each day. Patient likely requiring tighter CR with breakfast and looser rest of day. PLAN FOR INPATIENT GLYCEMIC CONTROL: * Basal insulin * Lantus 10 units SC BID * Bolus insulin * NovoLog per scale ACHS or Q6hrs while NPO * Goal Range: Low 110 mg/dL - High 150 mg/dL * Correction Factor: 25 mg/dL/unit * Nutritional / Prandial insulin per carb ratio of 1 unit per 9 grams CHO consumed
--- NOTE | 2024-01-02 07:45 | Hospitalist Progress Note ---
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 twice daily, mirtazapine 45 mg p.o. nightly, quetiapine 100 mg p.o. nightly, and venlafaxine 150mg (decreased from 225mg on 12/20) p.o. nightly -EEG completed if aspect of temporal seizure, no abnormalities noted. -Trialed brief course of Prednisone - started on prednisone 40mg daily but discontinued due to no improvement of symptoms. Need for [facility] care facility -Placement remains an important consideration it was initially unclear, though presumed that dispo would be to her sister's and ithkcip-qz-qwe's house as they are medical POA. -12/08: Received letter from law office (representing sister and [id number]-[id number]) relinquishing medical POA/"decision making authority", and asking to "not contact them regarding [patient]." -Awaiting CM referral to multiple personal care homes able to accept patient DM2 -Last HbA1c 7.9 during last admit -Patient on Lantus 15 mg BID outpatient; modified while on steroid course. -Glycemic consult placed due to recurrent episodes of hypoglycemia and hyperglycemia -Will obtain updated serum creatinine today per pharmacy request Asymptomatic bacteriuria -Treated in the ED with daptomycin x1; pt last grew MSSA in urine -Blood cx neg; urine cx grew staph -ABX discontinued. Patient remains asymptomatic. Afib -Chronic, stable -Continue with metoprolol 25 mg BID, Eliquis 5 mg BID HTN -Continue home medications. 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 still working on terminal operator disposition. no signfiicant change w steroids vitls noted nad heent nc at mmm breathing unlabored no accessory mucsles good effort skin n orashes n opallor or icterus Agitation with hallucinations and delusions- recurrent admissions for same and resolution of symptoms with hospital routines/cares. 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 ? induced by prior cryptococcal meningitis. -agitation improved. hallucinations waxing/waning. -was started on steroids this admission as trial. did not appear to help w hallucinations/delusions at all, unfortunately -continue seroquel 100mgs hs, Risperdal 2 mg bid, mirtazapine 45 mg hs, venlafaxine 150mg (decreased from 225mg on 12/20) hs Need for senior care placement - -has been difficult h/o Cryptococcal meningitis - continue suppressive fluconazole DM - Glycemic consult in place. -continue insulin - basal and meal time Subjective Patient was seen bedside this AM. No issues or concerns. 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 AnOx3 Review of Systems Review of Systems: All systems reviewed & are unremarkable except as noted in Subjective Physical Exam Physical Exam: General: no acute distress, speaking in full sentences Resp: good inspiratory effort, no labored breathing HEENT: conjunctivae appear clear, no audible congestion, no swelling noted face or lips Skin: skin appears dry, normal coloration, no rash visible on exposed skin areas Neuro: alert and oriented x3, no focal deficits appreciated Psych: euthymic affect, pleasant and interactive, logical thought process Results & Data Results & Data Vital Signs (Past 12 Hours) Vital Signs Temp Pulse Resp BP Pulse Ox O2 Del Method 01/02/24 07:19 36.4 C L 68 16 135/81 99 Room Air 01/01/24 20:55 Room Air 01/01/24 20:50 36.8 C 68 16 137/81 99 Room Air (1) UTI (urinary tract infection) Hematuria presence: without hematuria Urinary tract infection type: site unspecified Qualified Code(s): N39.0 - Urinary tract infection, site not specified (2) Altered mental state Altered mental status type: unspecified Qualified Code(s): R41.82 - Altered mental status, unspecified (6) Depression Depression Type: unspecified Qualified Code(s): F32.9 - Major depressive disorder, single episode, unspecified (8) Hypertension Hypertension type: essential hypertension Qualified Code(s): I10 - Essential (primary) hypertension (9) Anemia Anemia type: other cause Other causes of anemia: acute posthemorrhagic Qualified Code(s): D62 - Acute posthemorrhagic anemia
[2024-01-02] MEDS: CALCIUM POLYCARBOPHIL 625MG TAB PO SCH (08:36)
--- NOTE | 2024-01-02 13:30 | Billing Data ---
Date of Service January 02, 2024 Coding Level of Care Code 40893 SUB INP/OBS CARE
--- NOTE | 2024-01-03 07:25 | Hospitalist Progress Note ---
Date of Service January 03, 2024 Assessment & Plan (1) UTI (urinary tract infection): Plan: 01/02: no changes to plan below, working with case management for placement. 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 twice daily, mirtazapine 45 mg p.o. nightly, quetiapine 100 mg p.o. nightly, and venlafaxine 150mg (decreased from 225mg on 12/20) p.o. nightly -EEG completed if aspect of temporal seizure, no abnormalities noted. -Trialed brief course of Prednisone - started on prednisone 40mg daily but discontinued due to no improvement of symptoms. Need for correction care facility -Placement remains an important consideration it was initially unclear, though presumed that dispo would be to her sister's and tzhasck-mp-vho's house as they are medical POA. -12/08: Received letter from law office (representing sister and [id number]) relinquishing medical POA/"decision making authority", and asking to "not contact them regarding [patient]." -Awaiting CM referral to multiple personal care homes able to accept patient DM2 -Last HbA1c 7.9 during last admit -Patient on Lantus 15 mg BID outpatient; modified while on steroid course. -Glycemic consult placed due to recurrent episodes of hypoglycemia and hyperglycemia -Will obtain updated serum creatinine today per pharmacy request Asymptomatic bacteriuria -Treated in the ED with daptomycin x1; pt last grew MSSA in urine -Blood cx neg; urine cx grew staph -ABX discontinued. Patient remains asymptomatic. Afib -Chronic, stable -Continue with metoprolol 25 mg BID, Eliquis 5 mg BID HTN -Continue home medications. 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: (6) Depression: (7) Anxiety: (8) Hypertension: (9) Anemia: Admission and Anticipated Discharge Date Admission Date: December 06, 2023 Supervising Physician Co-Signing Physician Notes I personally examined the patient and verified all fish points of history and exam, discussed case, and agree with decision making with Dr Lynn upset about current situation vitls noted nad heent nc at mmm breathing unlabored no accessory muscles good effort skin no rashes no pallor or icterus Agitation with hallucinations and delusions- recurrent admissions for same and resolution of symptoms with hospital routines/cares. 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 ? induced by prior cryptococcal meningitis. -agitation improved. -was started on steroids this admission as trial. 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 -continue insulin - basal and meal time Subjective Patient was seen bedside this AM. No issues or concerns. Review of Systems Review of Systems: All systems reviewed & are unremarkable except as noted in Subjective Physical Exam Physical Exam: General: no acute distress, speaking in full sentences Resp: good inspiratory effort, no labored breathing HEENT: conjunctivae appear clear, no audible congestion, no swelling noted face or lips Skin: skin appears dry, normal coloration, no rash visible on exposed skin areas Neuro: alert and oriented x3, no focal deficits appreciated Psych: euthymic affect, pleasant and interactive, logical thought process Results & Data Results & Data Vital Signs (Past 12 Hours) Vital Signs Temp Pulse Resp BP Pulse Ox O2 Del Method 01/03/24 07:20 36.7 C 60 16 109/70 100 Room Air 01/02/24 20:04 36.9 C 73 16 130/79 99 Room Air Resident Activity Tracking Resident Involvement: Resident Care Provided Care Provided: Adult Hospital Medicine (1) UTI (urinary tract infection) Hematuria presence: without hematuria Urinary tract infection type: site unspecified Qualified Code(s): N39.0 - Urinary tract infection, site not specified (2) Altered mental state Altered mental status type: unspecified Qualified Code(s): R41.82 - Altered mental status, unspecified (6) Depression Depression Type: unspecified Qualified Code(s): F32.9 - Major depressive disorder, single episode, unspecified (8) Hypertension Hypertension type: essential hypertension Qualified Code(s): I10 - Essential (primary) hypertension (9) Anemia Anemia type: other cause Other causes of anemia: acute posthemorrhagic Qualified Code(s): D62 - Acute posthemorrhagic anemia
[2024-01-03] MEDS: INSULIN ASPART PER UNIT CHARGE SC SCH ×2 (07:59→12:04)
--- NOTE | 2024-01-03 08:32 | Pharmacy Report ---
Pharmacy Glycemic Short Note 2 - Date of Service January 03, 2024 - Glycemic Short BSG Results (Last 24 hours): 01/02/24 01/02/24 01/02/24 11:22 16:30 20:02 POC Glucose 248 H 177 H 87 01/03/24 07:38 POC Glucose 115 H OUTPATIENT ANTIDIABETIC REGIMEN: * Lantus 8 units SC BID * Novolog 4 units SC with meals + SSI (follows [facility] 11/21/23 - last appt, lists this dosing) HbA1c: 7.9% (11/14/23) ASSESSMENT: 01/03/24: * Blood sugar trend continues of highest value at lunchtime * Will tighten breakfast Novolog in attempt to decrease this value, slight improvement noted today (206 mg/dL at lunch) * Fasting blood sugars well-controlled on 10 units of basal BID 12/31: * Received 20 units basal + 26 units bolus yesterday. BSGs were: 490-254-628-152 mg/dL. * Fasting BSG was 118 mg/dL this AM. * No changes necessary to regimen today. 12/30: * Lynne received 35 units of insulin yesterday, 16 basal + 19 bolus. BSGs were: 58-667-032-123 mg/dL. * Fasting BSG 150 mg/dL this AM. Will increase basal by ~20% today. * Given trend up in BSG again at lunch today, will tighten CF/CR starting with dinner. 12/29: * Pt received 32 units of insulin yesterday (18 units basal, 14 units bolus), with BSGs 64, 132, 279, 200, 81. * Novolog parameters adjusted this morning in an effort to achieve better control throughout the day. * Lantus dose decreased slightly d/t fasting BSG below goal this morning (97 mg/dL). * Pharmacy will continue to follow and adjust regimen as indicated. 12/28: * 63 year female admitted with UTI/AMS. Pharmacy consulted to assist with glycemic management. Recently completed course of PO prednisone 12/26. BSGs starting to improve yesterday. At time of consult this AM, fasting BSG low at 64 mg/dL - will plan to scale back as no steroids further ordered. Will scale back ~30-40% with basal insulin. Lunch BSGs tend to be elevated each day. Patient likely requiring tighter CR with breakfast and looser rest of day. PLAN FOR INPATIENT GLYCEMIC CONTROL: * Basal insulin * Lantus 10 units SC BID * Bolus insulin * NovoLog per scale ACHS or Q6hrs while NPO * Goal Range: Low 110 mg/dL - High 150 mg/dL * Correction Factor: 20 mg/dL/unit at breakfast, 25 mg/dL/unit at lunch, dinner, and at HS * Nutritional / Prandial insulin per carb ratio of 1 unit per 6 grams CHO consumed at breakfast and 1 unit per 9 grams CHO consumed at lunch, dinner, and at HS
--- NOTE | 2024-01-03 19:13 | Billing Data ---
Date of Service January 03, 2024 Coding Level of Care Code 23955 SUB INP/OBS CARE
--- NOTE | 2024-01-04 07:27 | Hospitalist Progress Note ---
Date of Service January 04, 2024 Assessment & Plan (1) UTI (urinary tract infection): Plan: 01/03: no significant changes to the plan below. Lynne Marcelo is a 63 year-old female with PMH of cryptococcal meningitis with residual hallucinations/delusions, DM, Afib, cirrhosis, and depression/anxiety presenting to the hospital at family's urging d/t aggression/change in behavior. 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 twice daily, mirtazapine 45 mg p.o. nightly, quetiapine 100 mg p.o. nightly, and venlafaxine 150mg (decreased from 225mg on 12/20) p.o. nightly -EEG completed if aspect of temporal seizure, no abnormalities noted. -Trialed brief course of Prednisone - started on prednisone 40mg daily but discontinued due to no improvement of symptoms. 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 -12/08: Received letter from law office (representing sister and [id number]) relinquishing medical POA/"decision making authority", and asking to "not contact them regarding [patient]." -Awaiting CM referral to multiple personal care homes able to accept patient DM2 -Last HbA1c 7.9 during last admit -Patient on Lantus 15 mg BID outpatient; modified while on steroid course. -Glycemic consult placed due to recurrent episodes of hypoglycemia and hyperglycemia -Will obtain updated serum creatinine today per pharmacy request Asymptomatic bacteriuria -Treated in the ED with daptomycin x1; pt last grew MSSA in urine -Blood cx neg; urine cx grew staph -ABX discontinued. Patient remains asymptomatic. Afib -Chronic, stable -Continue with metoprolol 25 mg BID, Eliquis 5 mg BID HTN -Continue home medications. 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: (6) Depression: (7) Anxiety: (8) Hypertension: (9) Anemia: Admission and Anticipated Discharge Date Admission Date: December 06, 2023 Supervising Physician Co-Signing Physician Notes I personally examined the patient and verified all fish points of history and exam, discussed case, and agree with decision making with Dr Lynn no new issues, still awaiting dispo vitals noted nad heent nc at mmm breathing unlabored no accessory muscles good effort skin no rashes no pallor or icterus Agitation with hallucinations and delusions- recurrent admissions for same and resolution of symptoms with hospital routines/cares. 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 ? induced by prior cryptococcal meningitis. -agitation improved. -was started on steroids this admission as trial. did not appear to help w hallucinations/delusions at all, unfortunately -continue seroquel 100mgs hs, Risperdal 2 mg bid, mirtazapine 45 mg hs, venlafaxine 150mg (decreased from 225mg on 12/20) hs Need for [facility] placement - -has been difficult, case management continues to pursue options, as does patient h/o Cryptococcal meningitis - continue suppressive fluconazole DM - Glycemic consult in place. -ongoing basal/bolus insulin Subjective Patient seen beside this AM. No issues or concerns. Review of Systems Review of Systems: All systems reviewed & are unremarkable except as noted in Subjective Physical Exam Physical Exam: General: no acute distress, speaking in full sentences Resp: good inspiratory effort, no labored breathing HEENT: conjunctivae appear clear, no audible congestion, no swelling noted face or lips Skin: skin appears dry, normal coloration, no rash visible on exposed skin areas Neuro: alert and oriented x3, no focal deficits appreciated Psych: euthymic affect, pleasant and interactive, logical thought process Results & Data Results & Data Vital Signs (Past 12 Hours) Vital Signs Temp Pulse Resp BP Pulse Ox O2 Del Method 01/03/24 20:29 36.7 C 67 16 136/85 98 Room Air (1) UTI (urinary tract infection) Hematuria presence: without hematuria Urinary tract infection type: site unspecified Qualified Code(s): N39.0 - Urinary tract infection, site not specified (2) Altered mental state Altered mental status type: unspecified Qualified Code(s): R41.82 - Altered mental status, unspecified (6) Depression Depression Type: unspecified Qualified Code(s): F32.9 - Major depressive disorder, single episode, unspecified (8) Hypertension Hypertension type: essential hypertension Qualified Code(s): I10 - Essential (primary) hypertension (9) Anemia Anemia type: other cause Other causes of anemia: acute posthemorrhagic Qualified Code(s): D62 - Acute posthemorrhagic anemia
--- NOTE | 2024-01-04 19:01 | Billing Data ---
Date of Service January 04, 2024 Coding Level of Care Code 16212 SUB INP/OBS CARE
--- NOTE | 2024-01-05 08:12 | Hospitalist Progress Note ---
Date of Service January 05, 2024 Assessment & Plan (1) UTI (urinary tract infection): Plan: 01/04: no significant changes to the plan below. Continue to monitor. Lynne Marcelo is a 63 year-old female with PMH of cryptococcal meningitis with residual hallucinations/delusions, DM, Afib, cirrhosis, and depression/anxiety [facility]/change in behavior. 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 twice daily, mirtazapine 45 mg p.o. nightly, quetiapine 100 mg p.o. nightly, and venlafaxine 150mg (decreased from 225mg on 12/20) p.o. nightly -EEG completed if aspect of temporal seizure, no abnormalities noted. -Trialed brief course of Prednisone - started on prednisone 40mg daily but discontinued due to no improvement of symptoms. Need for [employer] care facility -Placement remains an important consideration it was initially unclear, though presumed that dispo would be to her sister's and hmshput-el-rni's house as they are medical POA. -12/08: Received letter from law office (representing sister and [id number]) relinquishing medical POA/"decision making authority", and asking to "not contact them regarding [patient]." -Awaiting CM referral to multiple personal care homes able to accept patient DM2 -Last HbA1c 7.9 during last admit -Patient on Lantus 15 mg BID outpatient; modified while on steroid course. -Glycemic consult placed due to recurrent episodes of hypoglycemia and hyperglycemia -Will obtain updated serum creatinine today per pharmacy request Asymptomatic bacteriuria -Treated in the ED with daptomycin x1; pt last grew MSSA in urine -Blood cx neg; urine cx grew staph -ABX discontinued. Patient remains asymptomatic. Afib -Chronic, stable -Continue with metoprolol 25 mg BID, Eliquis 5 mg BID HTN -Continue home medications. 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 -agitation improved. -was started on steroids this admission as trial. 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 -ongoing basal/bolus insulin Subjective Patient seen beside this AM. No issues or concerns. Review of Systems Review of Systems: All systems reviewed & are unremarkable except as noted in Subjective Physical Exam Physical Exam: General: no acute distress, speaking in full sentences Resp: good inspiratory effort, no labored breathing HEENT: conjunctivae appear clear, no audible congestion, no swelling noted face or lips Skin: skin appears dry, normal coloration, no rash visible on exposed skin areas Neuro: alert and oriented x3, no focal deficits appreciated Psych: euthymic affect, pleasant and interactive, logical thought process Results & Data Results & Data Vital Signs (Past 12 Hours) Vital Signs Temp Pulse Pulse Resp BP Pulse Ox O2 Del Method 01/05/24 07:12 36.5 C 62 16 132/82 99 Room Air 01/05/24 06:33 36.7 C 60 16 117/74 97 Room Air 01/04/24 20:30 36.7 C 71 16 136/81 100 Room Air (1) UTI (urinary tract infection) Hematuria presence: without hematuria Urinary tract infection type: site unspecified Qualified Code(s): N39.0 - Urinary tract infection, site not specified (2) Altered mental state Altered mental status type: unspecified Qualified Code(s): R41.82 - Altered mental status, unspecified (6) Depression Depression Type: unspecified Qualified Code(s): F32.9 - Major depressive disorder, single episode, unspecified (8) Hypertension Hypertension type: essential hypertension Qualified Code(s): I10 - Essential (primary) hypertension (9) Anemia Anemia type: other cause Other causes of anemia: acute posthemorrhagic Qualified Code(s): D62 - Acute posthemorrhagic anemia
[2024-01-05] MEDS ORDERED: DEXTROSE 50% 50 ML SYRINGE IV PRN (10:15)
[2024-01-05] MEDS ORDERED: GLUCOSE 40% GEL 15 GM TUBE PO PRN (10:15)
[2024-01-05] MEDS ORDERED: GLUCOSE 10 TAB/TUBE PO PRN (10:15)
[2024-01-05] MEDS ORDERED: GLUCAGON FOR INJ 1 MG VIAL IM PRN (10:15)
[2024-01-05] MEDS: FLUTICASONE PROPIONATE NA SPR 16 GM BTL SCH (11:40)
[2024-01-05] MEDS: METOPROLOL SUCC 25MG EXT REL TAB PO SCH (11:41)
[2024-01-05] MEDS: APIXABAN 5 MG TABLET PO SCH (11:41)
[2024-01-05] MEDS: FLUCONAZOLE 100 MG TAB PO SCH (11:41)
[2024-01-05] MEDS: INSULIN ASPART PER UNIT CHARGE SC SCH (12:00)
--- NOTE | 2024-01-05 13:02 | Billing Data ---
Date of Service January 05, 2024 Coding Level of Care Code 97559 SUB INP/OBS CARE
[2024-01-05] MEDS ORDERED: DICLOFENAC SOD 1% GEL 100 GM TUBE EXT PRN (16:18)
[2024-01-05] MEDS ORDERED: POLYETHYLENE (MIRALAX) 17 GM PACK PO PRN (16:18)
[2024-01-05] MEDS ORDERED: PROMETHAZINE HCL 12.5 MG/10 ML UDP PO PRN (16:18)
[2024-01-05] MEDS ORDERED: DICLOFENAC SOD 1% GEL 100 GM TUBE EXT SCH (17:00)
[2024-01-05] MEDS: PANTOprazole 40 MG TAB PO SCH (20:26)
[2024-01-05] MEDS: MELATONIN 3 MG TAB PO PRN (21:07)
[2024-01-06] MEDS: LOPERAMIDE HCL 2 MG CAP PO PRN (06:08)
--- NOTE | 2024-01-06 07:29 | Hospitalist Progress Note ---
Date of Service January 06, 2024 Assessment & Plan (1) UTI (urinary tract infection): Plan: 01/04: no significant changes to the plan below. Continue to monitor. 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 twice daily, mirtazapine 45 mg p.o. nightly, quetiapine 100 mg p.o. nightly, and venlafaxine 150mg (decreased from 225mg on 12/20) p.o. nightly -EEG completed if aspect of temporal seizure, no abnormalities noted. -Trialed brief course of Prednisone - started on prednisone 40mg daily but discontinued due to no improvement of symptoms. 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 -12/08: Received letter from law office (representing sister and [id number]) relinquishing medical POA/"decision making authority", and asking to "not contact them regarding [patient]." -Awaiting CM referral to multiple personal care homes able to accept patient, still pending DM2 -Last HbA1c 7.9 during last admit -Patient on Lantus 15 mg BID outpatient; modified while on steroid course. -Glycemic consult placed due to recurrent episodes of hypoglycemia and hyperglycemia Asymptomatic bacteriuria -Treated in the ED with daptomycin x1; pt last grew MSSA in urine -Blood cx neg; urine cx grew staph -ABX discontinued. Patient remains asymptomatic. Afib -Chronic, stable -Continue with metoprolol 25 mg BID, Eliquis 5 mg BID HTN -Continue home medications. 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 -agitation improved. -was started on steroids this admission as trial based on case reports of late neuropsych findings after cryptococcal meningitis. unfortunately did not appear to help w hallucinations/delusions at all -continue seroquel 100mgs hs, Risperdal 2 mg bid, mirtazapine 45 mg hs, venlafaxine 150mg (decreased from 225mg on 12/20) hs Need for superintendent terminal placement - -has been difficult, case management continues to pursue options, as does patient h/o Cryptococcal meningitis - continue suppressive fluconazole DM - Glycemic consult in place. -ongoing basal/bolus insulin Subjective Patient seen at bedside, calm comfortable cooperative. Denies any headache dizziness fever chills N/V SOB CP Abd pain is having some ongoing diarrhea just got imodium. No concerns at this time. Physical Exam Constitutional: WD/WN, vitals as above Eyes: PERRL, conjunctivae normal, anicteric sclerae Respiratory: normal respiratory effort, lungs clear to auscultation Cardiovascular: RRR, no murmur, no edema Skin: no rashes, warm and dry Results & Data Results & Data Vital Signs (Past 12 Hours) Vital Signs Temp Pulse Resp BP Pulse Ox O2 Del Method 04/11/24 20:21 36.6 C 71 14 151/87 H 98 Room Air Resident Activity Tracking Resident Involvement: Resident Care Provided Care Provided: Adult Hospital Medicine (1) UTI (urinary tract infection) Hematuria presence: without hematuria Urinary tract infection type: site unspecified Qualified Code(s): N39.0 - Urinary tract infection, site not specified (2) Altered mental state Altered mental status type: unspecified Qualified Code(s): R41.82 - Altered mental status, unspecified (6) Depression Depression Type: unspecified Qualified Code(s): F32.9 - Major depressive disorder, single episode, unspecified (8) Hypertension Hypertension type: essential hypertension Qualified Code(s): I10 - Essential (primary) hypertension (9) Anemia Anemia type: other cause Other causes of anemia: acute posthemorrhagic Qualified Code(s): D62 - Acute posthemorrhagic anemia
[2024-01-06] MEDS: CETIRIZINE HCL 10 MG TABLET PO SCH (08:11)
[2024-01-06] MEDS: THIAMINE HCL 100 MG TAB PO SCH (08:12)
[2024-01-06] MEDS: SENNA 8.6 MG TAB PO SCH (08:12)
--- NOTE | 2024-01-06 09:48 | Pharmacy Report ---
Pharmacy Glycemic Short Note 2 - Date of Service January 06, 2024 - Glycemic Short BSG Results (Last 24 hours): 01/05/24 01/05/24 01/05/24 11:47 16:35 20:35 POC Glucose 165 H 224 H 158 H 01/06/24 07:40 POC Glucose 134 H OUTPATIENT ANTIDIABETIC REGIMEN: * Lantus 8 units SC BID * Novolog 4 units SC with meals + SSI (follows [facility] 11/21/23 - last appt, lists this dosing) HbA1c: 7.9% (11/14/23) ASSESSMENT: 01/06/24: * Blood sugars remain reasonably well-controlled w/ occasional episodes of hyperglycemia >200 mg/dL * Will add basal scale today to allow for increased basal dose * Continue previously tightened Novolog parameters * Awaiting placement 01/03/24: * Blood sugar trend continues of highest value at lunchtime * Will tighten breakfast Novolog in attempt to decrease this value, slight improvement noted today (206 mg/dL at lunch) * Fasting blood sugars well-controlled on 10 units of basal BID 12/31: * Received 20 units basal + 26 units bolus yesterday. BSGs were: [id number] mg/dL. * Fasting BSG was 118 mg/dL this AM. * No changes necessary to regimen today. 12/30: * Lynne received 35 units of insulin yesterday, 16 basal + 19 bolus. BSGs were: 39-502-178-123 mg/dL. * Fasting BSG 150 mg/dL this AM. Will increase basal by ~20% today. * Given trend up in BSG again at lunch today, will tighten CF/CR starting with dinner. 12/29: * Pt received 32 units of insulin yesterday (18 units basal, 14 units bolus), with BSGs 64, 132, 279, 200, 81. * Novolog parameters adjusted this morning in an effort to achieve better control throughout the day. * Lantus dose decreased slightly d/t fasting BSG below goal this morning (97 mg/dL). * Pharmacy will continue to follow and adjust regimen as indicated. 12/28: * 63 year female admitted with UTI/AMS. Pharmacy consulted to assist with glycemic management. Recently completed course of PO prednisone 12/26. BSGs starting to improve yesterday. At time of consult this AM, fasting BSG low at 64 mg/dL - will plan to scale back as no steroids further ordered. Will scale back ~30-40% with basal insulin. Lunch BSGs tend to be elevated each day. Patient likely requiring tighter CR with breakfast and looser rest of day. PLAN FOR INPATIENT GLYCEMIC CONTROL: * Basal insulin * Lantus 10-12 units SC BID (see EHR for details) * Bolus insulin * NovoLog per scale ACHS or Q6hrs while NPO * Goal Range: Low 110 mg/dL - High 150 mg/dL * Correction Factor: 12 mg/dL/unit at breakfast, 25 mg/dL/unit at lunch, dinner, and at HS * Nutritional / Prandial insulin per carb ratio of 1 unit per 4 grams CHO consumed at breakfast and 1 unit per 9 grams CHO consumed at lunch, dinner, and at HS
--- NOTE | 2024-01-06 17:27 | Billing Data ---
Date of Service January 06, 2024 Coding Level of Care Code 59774 SUB INP/OBS CARE
[2024-01-06] MEDS: LANTUS PER UNIT CHARGE SQ SCH (20:38)
--- NOTE | 2024-01-07 08:12 | Hospitalist Progress Note ---
Date of Service January 07, 2024 Assessment & Plan (1) UTI (urinary tract infection): Plan: 01/04: no significant changes to the plan below. Continue to monitor. 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 twice daily, mirtazapine 45 mg p.o. nightly, quetiapine 100 mg p.o. nightly, and venlafaxine 150mg (decreased from 225mg on 12/20) p.o. nightly -EEG completed if aspect of temporal seizure, no abnormalities noted. -Trialed brief course of Prednisone 40mg daily, discontinued due to no improvement of symptoms. Need for care home care facility -Placement remains an important consideration it was initially unclear, though presumed that dispo would be to her sister's and trpntnl-[id number]-omz's house as they are medical POA. -12/08: Received letter from law office (representing sister and [id number]) relinquishing medical POA/"decision making authority", and asking to "not contact them regarding [patient]." -Awaiting CM referral to multiple personal care homes able to accept patient, still pending DM2 -Last HbA1c 7.9 during last admit -Patient on Lantus 15 mg BID outpatient; modified while on steroid course. -Glycemic consult placed due to recurrent episodes of hypoglycemia and hyperglycemia Asymptomatic bacteriuria -Treated in the ED with daptomycin x1; pt last grew MSSA in urine -Blood cx neg; urine cx grew staph -ABX discontinued. Patient remains asymptomatic. Afib -Chronic, stable -Continue with metoprolol 25 mg BID, Eliquis 5 mg BID HTN -Continue home medications. 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 -agitation improved. -was started on steroids this admission as trial based on case reports of late neuropsych findings after cryptococcal meningitis. unfortunately did not appear to help w hallucinations/delusions at all -continue seroquel 100mgs hs, Risperdal 2 mg bid, mirtazapine 45 mg hs, venlafaxine 150mg (decreased from 225mg on 12/20) hs Need for assisted placement - -has been difficult, case management continues to pursue options, as does patient h/o Cryptococcal meningitis - continue suppressive fluconazole DM - Glycemic consult in place. -ongoing basal/bolus insulin Subjective Patient seen at bedside, calm comfortable cooperative. Ate slept well normal BM, trying to get in touch with family. Would like a diet coke. No concerns at this time Physical Exam Constitutional: WD/WN, vitals as above Eyes: PERRL, conjunctivae normal, anicteric sclerae Respiratory: normal respiratory effort, lungs clear to auscultation Cardiovascular: RRR, no murmur, no edema Skin: no rashes, warm and dry Results & Data Results & Data Vital Signs (Past 12 Hours) Vital Signs Temp Pulse Resp BP Pulse Ox O2 Del Method 01/07/24 07:52 36.8 C 67 16 128/84 99 Room Air Resident Activity Tracking Resident Involvement: Resident Care Provided Care Provided: Adult Hospital Medicine (1) UTI (urinary tract infection) Hematuria presence: without hematuria Urinary tract infection type: site unspecified Qualified Code(s): N39.0 - Urinary tract infection, site not specified (2) Altered mental state Altered mental status type: unspecified Qualified Code(s): R41.82 - Altered mental status, unspecified (6) Depression Depression Type: unspecified Qualified Code(s): F32.9 - Major depressive disorder, single episode, unspecified (8) Hypertension Hypertension type: essential hypertension Qualified Code(s): I10 - Essential (primary) hypertension (9) Anemia Anemia type: other cause Other causes of anemia: acute posthemorrhagic Qualified Code(s): D62 - Acute posthemorrhagic anemia
--- NOTE | 2024-01-07 16:34 | Billing Data ---
Date of Service January 07, 2024 Coding Level of Care Code 65531 SUB INP/OBS CARE
[2024-01-08] MEDS: ONDANSETRON INJ 2 MG/ML 2 ML VIAL IV PRN (00:10)
--- NOTE | 2024-01-08 07:08 | Hospitalist Progress Note ---
Date of Service January 08, 2024 Assessment & Plan (1) UTI (urinary tract infection): Plan: 01/04: no significant changes to the plan below. Continue to monitor. 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 twice daily, mirtazapine 45 mg p.o. HS, quetiapine 100 mg p.o. HS, and venlafaxine 150mg (decreased from 225mg on 12/20) p.o. HS -EEG completed if aspect of temporal seizure, no abnormalities noted. -Trialed brief course of Prednisone 40mg daily, discontinued due to no improvement of symptoms. Need for assisted care facility -Placement remains an important consideration it was initially unclear, though presumed that dispo would be to her sister's and lexoabf-an-edd's house as they are medical POA. -12/08: Received letter from law office (representing sister and [id number]) relinquishing medical POA/"decision making authority", and asking to "not contact them regarding [patient]." -Awaiting CM referral to multiple personal care homes able to accept patient, still pending DM2 -Last HbA1c 7.9 during last admit -Patient on Lantus 15 mg BID outpatient; modified while on steroid course. -Glycemic consult placed due to recurrent episodes of hypoglycemia and hyperglycemia Asymptomatic bacteriuria -Treated in the ED with daptomycin x1; pt last grew MSSA in urine -Blood cx neg; urine cx grew staph -ABX discontinued. Patient remains asymptomatic. Afib -Chronic, stable -Continue with metoprolol 25 mg BID, Eliquis 5 mg BID HTN -Continue home medications. 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: (6) Depression: (7) Anxiety: (8) Hypertension: (9) Anemia: Admission and Anticipated Discharge Date Admission Date: December 06, 2023 Supervising Physician Co-Signing Physician Notes I personally examined the patient and verified all fish points of history and exam, discussed case, and agree with decision making with Dr Augustin no new problems no new complaints, resting, sort of taking a nap but not really asleep vitals noted nad breathing unlabored no accessory muscles good effort skin no rashes no pallor or icterus Agitation with hallucinations and delusions- recurrent admissions for same - doing better overall as far as "bad days" / dysphoric days most likely 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 -was treated with steroids this admission as trial based on case reports of late neuropsych findings after cryptococcal meningitis. unfortunately did not appear to help w hallucinations/delusions at all -continue seroquel 100mgs hs, Risperdal 2 mg bid, mirtazapine 45 mg hs, venlafaxine 150mg (decreased from 225mg on 12/20) hs Need for jail placement - -has been difficult, case management continues to pursue options, as does patient h/o Cryptococcal meningitis - continue suppressive fluconazole DM - Glycemic consult in place. -ongoing basal/bolus insulin Subjective Patient seen at bedside, calm comfortable cooperative. No concerns at this time. Physical Exam Constitutional: WD/WN, vitals as above Eyes: PERRL, conjunctivae normal, anicteric sclerae Respiratory: normal respiratory effort, lungs clear to auscultation Cardiovascular: RRR, no murmur, no edema Skin: no rashes, warm and dry Results & Data Results & Data Vital Signs (Past 12 Hours) Vital Signs Temp Pulse Pulse Resp BP Pulse Ox O2 Del Method 01/07/24 23:53 71 114/77 01/07/24 20:11 36.6 C 72 16 119/79 99 Room Air Resident Activity Tracking Resident Involvement: Resident Care Provided Care Provided: Adult Hospital Medicine (1) UTI (urinary tract infection) Hematuria presence: without hematuria Urinary tract infection type: site unspecified Qualified Code(s): N39.0 - Urinary tract infection, site not specified (2) Altered mental state Altered mental status type: unspecified Qualified Code(s): R41.82 - Altered mental status, unspecified (6) Depression Depression Type: unspecified Qualified Code(s): F32.9 - Major depressive disorder, single episode, unspecified (8) Hypertension Hypertension type: essential hypertension Qualified Code(s): I10 - Essential (primary) hypertension (9) Anemia Anemia type: other cause Other causes of anemia: acute posthemorrhagic Qualified Code(s): D62 - Acute posthemorrhagic anemia
--- NOTE | 2024-01-08 12:23 | Billing Data ---
Date of Service January 08, 2024 Coding Level of Care Code 44540 SUB INP/OBS CARE
[2024-01-08] MEDS: CARBOHYDRATES FOR HYPOGLYCEMIA PO PRN (15:24)
--- NOTE | 2024-01-09 10:06 | Pharmacy Report ---
Pharmacy Glycemic Short Note 2 - Date of Service January 09, 2024 - Glycemic Short BSG Results (Last 24 hours): 01/08/24 01/08/24 01/08/24 11:36 15:19 15:22 POC Glucose 266 H 57 L* 60 L* 01/08/24 01/08/24 01/08/24 15:38 16:36 20:57 POC Glucose 71 136 H 175 H 01/09/24 01/09/24 03:32 07:40 POC Glucose 104 H 102 H OUTPATIENT ANTIDIABETIC REGIMEN: * Lantus 8 units SC BID * Novolog 4 units SC with meals + SSI (follows [facility] 11/21/23 - last appt, lists this dosing) HbA1c: 7.9% (11/14/23) ASSESSMENT: 01/09/24: * Patient received total of 53 units of insulin yesterday, of which 24 units were basal insulin * Fasting BSG 102 mg/dL - continue same basal * BSGs trending down at dinner yesterday - will plan to loosen parameters with lunch time check to hopefully prevent future hypoglycemia 01/06/24: * Blood sugars remain reasonably well-controlled w/ occasional episodes of hyperglycemia >200 mg/dL * Will add basal scale today to allow for increased basal dose * Continue previously tightened Novolog parameters * Awaiting placement 01/03/24: * Blood sugar trend continues of highest value at lunchtime * Will tighten breakfast Novolog in attempt to decrease this value, slight improvement noted today (206 mg/dL at lunch) * Fasting blood sugars well-controlled on 10 units of basal BID 12/31: * Received 20 units basal + 26 units bolus yesterday. BSGs were: [phone] mg/dL. * Fasting BSG was 118 mg/dL this AM. * No changes necessary to regimen today. 12/30: * Lynne received 35 units of insulin yesterday, 16 basal + 19 bolus. BSGs were: 17-794-358-123 mg/dL. * Fasting BSG 150 mg/dL this AM. Will increase basal by ~20% today. * Given trend up in BSG again at lunch today, will tighten CF/CR starting with dinner. 12/29: * Pt received 32 units of insulin yesterday (18 units basal, 14 units bolus), with BSGs 64, 132, 279, 200, 81. * Novolog parameters adjusted this morning in an effort to achieve better control throughout the day. * Lantus dose decreased slightly d/t fasting BSG below goal this morning (97 mg/dL). * Pharmacy will continue to follow and adjust regimen as indicated. 12/28: * 63 year female admitted with UTI/AMS. Pharmacy consulted to assist with glycemic management. Recently completed course of PO prednisone 12/26. BSGs starting to improve yesterday. At time of consult this AM, fasting BSG low at 64 mg/dL - will plan to scale back as no steroids further ordered. Will scale back ~30-40% with basal insulin. Lunch BSGs tend to be elevated each day. Patient likely requiring tighter CR with breakfast and looser rest of day. PLAN FOR INPATIENT GLYCEMIC CONTROL: * Basal insulin * Lantus 10-12 units SC BID (see EHR for details) * Bolus insulin * NovoLog per scale ACHS or Q6hrs while NPO * Goal Range: Low 110 mg/dL - High 150 mg/dL * Correction Factor: 12 mg/dL/unit at breakfast, 35 mg/dL/unit at lunch, dinner, and at HS * Nutritional / Prandial insulin per carb ratio of 1 unit per 3 grams CHO consumed at breakfast and 1 unit per 11 grams CHO consumed at lunch, dinner, and at HS
--- NOTE | 2024-01-09 13:02 | Hospitalist Progress Note ---
Date of Service January 09, 2024 Assessment & Plan (1) UTI (urinary tract infection): Plan: 01/04: no significant changes to the plan below. Continue to monitor. 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 twice daily, mirtazapine 45 mg p.o. HS, quetiapine 100 mg p.o. HS, and venlafaxine 150mg (decreased from 225mg on 12/20) p.o. HS -EEG completed if aspect of temporal seizure, no abnormalities noted. -Trialed brief course of Prednisone 40mg daily, discontinued due to no improvement of symptoms. Need for senior living care facility -Placement remains an important consideration it was initially unclear, though presumed that dispo would be to her sister's and [id number]'s house as they are medical POA. -12/08: Received letter from law office (representing sister and [id number]) relinquishing medical POA/"decision making authority", and asking to "not contact them regarding [patient]." -Awaiting CM referral to multiple personal care homes able to accept patient, still pending DM2 -pharmacy glycemic consult; sugars have been reasonable Asymptomatic bacteriuria -Treated in the ED with daptomycin x1; pt last grew MSSA in urine -Blood cx neg; urine cx grew staph -ABX discontinued. Patient remains asymptomatic. Afib -Chronic, stable -Continue with metoprolol 25 mg BID, Eliquis 5 mg BID HTN -Continue home medications. -Continue Lasix 20 mg PRN for weight gain or volume overload Anemia -Chronic, stable Code: Full code VTE ppx: Eliquis 5 mg BID FEN/GI: Carb consistent, heart healthy Dispo: stable on Med/surg; awaiting placement to personal-detention vs SNF (placement has been difficult; pt herself is looking at home options but would need someone willing to be responsible for her well-being given hallucinations/delusions - she lived with her sister and brother in law briefly (~1 month) and this ended disastrously. 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 -was treated with steroids this admission as trial based on case reports of late neuropsych findings after cryptococcal meningitis. unfortunately did not appear to help w hallucinations/delusions at all -continue seroquel 100mgs hs, Risperdal 2 mg bid, mirtazapine 45 mg hs, venlafaxine 150mg (decreased from 225mg on 12/20) hs Need for technician terminal and repeater placement - -has been difficult, case management continues to pursue options, as does patient h/o Cryptococcal meningitis - continue suppressive fluconazole DM - Glycemic consult in place. -ongoing basal/bolus insulin Subjective no new issues or complaints. has picture of Will on her tablet. notes he's looking at buying a house in his name since she is running into trouble w plac ement since her house is in her name. case management continues to work on placement Review of Systems Review of Systems: All systems reviewed & are unremarkable except as noted in HPI & below Physical Exam Physical Exam: gen aao pleasant nad heent nc at (bruising healed, abrasions almost healed) mmm breathing unlabored no accessory muscles good effort skin no rashes no pallor or icterus neuro no focal deficits Results & Data Results & Data Vital Signs (Past 12 Hours) Vital Signs Temp Pulse Resp BP Pulse Ox O2 Del Method 01/09/24 08:05 98.1 F 64 17 138/81 99 Room Air PG Care Time/CCT Total # of Minutes Spent Total Time Spent with Patient: Total time spent is greater than 50% in coordination of care (as documented) at patient's floor/unit and/or counseling patient: Coding Level of Care Code 96846 SUB INP/OBS CARE 10/20MIN Diagnoses Urinary tract infection without hematuria, site unspecified N39.0 Hematuria presence: without hematuria Urinary tract infection type: site unspecified Altered mental status, unspecified altered mental status type R41.82 Altered mental status type: unspecified Paroxysmal A-fib I48.0 Uncontrolled type 2 diabetes mellitus with hyperglycemia, with long-term current use of insulin E11.65; Z79.4 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 Depression, unspecified depression type F32.9 Depression Type: unspecified Anxiety F41.9 Essential hypertension I10 Hypertension type: essential hypertension Anemia D62 Anemia type: other cause Other causes of anemia: acute posthemorrhagic (1) UTI (urinary tract infection) Hematuria presence: without hematuria Urinary tract infection type: site unspecified Qualified Code(s): N39.0 - Urinary tract infection, site not specified (2) Altered mental state Altered mental status type: unspecified Qualified Code(s): R41.82 - Altered mental status, unspecified (6) Depression Depression Type: unspecified Qualified Code(s): F32.9 - Major depressive disorder, single episode, unspecified (8) Hypertension Hypertension type: essential hypertension Qualified Code(s): I10 - Essential (primary) hypertension (9) Anemia Anemia type: other cause Other causes of anemia: acute posthemorrhagic Qualified Code(s): D62 - Acute posthemorrhagic anemia
--- NOTE | 2024-01-10 12:21 | Hospitalist Progress Note ---
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 twice daily, mirtazapine 45 mg p.o. HS, quetiapine 100 mg p.o. HS, and venlafaxine 150mg (decreased from 225mg on 12/20) p.o. HS -EEG completed if aspect of temporal seizure, no abnormalities noted. -Trialed brief course of Prednisone 40mg daily, discontinued due to no improvement of symptoms. Need for car runner care facility -Placement remains an important consideration it was initially unclear, though presumed that dispo would be to her sister's and owyktne-ge-toy's house as they are medical POA. -12/08: Received letter from law office (representing sister and [id number]) relinquishing medical POA/"decision making authority", and asking to "not contact them regarding [patient]." -[facility] at [facility] will take the patient tomorrow DM2 -pharmacy glycemic consult; sugars have been reasonable Asymptomatic bacteriuria -Treated in the ED with daptomycin x1; pt last grew MSSA in urine -Blood cx neg; urine cx grew staph -ABX discontinued. Patient remains asymptomatic. Afib -Chronic, stable -Continue with metoprolol 25 mg BID, Eliquis 5 mg BID HTN -Continue home medications. 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 Review of Systems Review of Systems: All systems reviewed are negative, apart from the ones contained in the history. Physical Exam Physical Exam: The patient is awake, alert and oriented 3, well developed and well nourished, normocephalic and atraumatic, lying in bed and in no acute distress. HEENT--PERRL, EOMI, mucous membranes and oropharynx mildly dry Neck--supple. No JVD. No bruits. Thyroid normal, trachea midline, no adenopathy. Heart--normal S1 and S2. No murmurs, rubs or gallops. Lungs--clear bilaterally, no respiratory distress, no accessory muscle use. Abdomen--normal bowel sounds and soft. Extremities--no cyanosis or clubbing. No edema. Dermatologic--normal skin turgor, normal color, no abnormal lymph nodes, no rash. Neurologic--cranial nerves II through XII grossly intact. Rheumatologic--normal range of motion. Psychiatric--normal affect. Results & Data Results & Data Vital Signs (Past 12 Hours) Vital Signs Temp Pulse Resp BP Pulse Ox O2 Del Method 01/10/24 08:50 98.1 F 62 16 131/81 98 Room Air PG Care Time/CCT Total # of Minutes Spent Total Time Spent with Patient: Total time spent is greater than 50% in coordination of care (as documented) at patient's floor/unit and/or counseling patient: Coding Level of Care Code 14868 SUB INP/OBS CARE 2/35MIN Diagnoses Urinary tract infection without hematuria, site unspecified N39.0 Hematuria presence: without hematuria Urinary tract infection type: site unspecified Altered mental status, unspecified altered mental status type R41.82 Altered mental status type: unspecified Paroxysmal A-fib I48.0 Uncontrolled type 2 diabetes mellitus with hyperglycemia, with long-term current use of insulin E11.65; Z79.4 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 (1) UTI (urinary tract infection) Hematuria presence: without hematuria Urinary tract infection type: site unspecified Qualified Code(s): N39.0 - Urinary tract infection, site not specified (2) Altered mental state Altered mental status type: unspecified Qualified Code(s): R41.82 - Altered mental status, unspecified (6) Depression Depression Type: unspecified Qualified Code(s): F32.9 - Major depressive disorder, single episode, unspecified (8) Hypertension Hypertension type: essential hypertension Qualified Code(s): I10 - Essential (primary) hypertension (9) Anemia Anemia type: other cause Other causes of anemia: acute posthemorrhagic Qualified Code(s): D62 - Acute posthemorrhagic anemia
[2024-01-10] MEDS: LANTUS PER UNIT CHARGE SQ SCH (22:45)
[2024-01-11 07:28] LABS: Calcium 9.4 mg/dl (8.6-10.3); Creatinine Clr Calc Pharmacy 54.5 ml/min; Est GFR (African American) 78.3 ml/min; Est GFR (Non-African American) 67.6 ml/min
[2024-01-11 07:44] LABS: Hematocrit (blood only) 29.9 % (37.0-47.0); Hemoglobin 9.6 g/dl (12.0-16.0); Mean Corpuscular Hemoglobin 27.7 pg (25.0-34.0); Mean Corpuscular Hgb Conc 32.1 g/dL (32.0-36.0); Mean Corpuscular Volume 86.4 fL (80.0-100.0); Mean Platelet Volume 11.4 fL (9.4-12.4); Platelet Count 109 K/uL (130-400); RDW Coefficient of Variation 14.6 % (11.5-14.5); RDW Standard Deviation 46.5 fL (36.4-46.3); Red Blood Count 3.46 M/uL (4.20-5.40); White Blood Count 5.19 K/ul (4.8-10.8)
--- NOTE | 2024-01-11 12:50 | Discharge Summary ---
Date of Service January 11, 2024 Admission HPI Per Admitting Provider 63 y/o female with a complex PMHx including cryptococcal meningitis, hallucinations/delusions, a fib on Eliquis, insulin dependent T2DM, HTN, anxiety/depression, and thiamine deficiency presented to the ED after becoming aggressive with her family. Per patient that got in a "mouth" disagreement. Reportedly she went outside to look for her friend's car because he had clothes for her. She was unable to find it and went back towards the house. Her sister was then yelling for her to come inside. Her brother in-law reportedly then threatened to put locks with alarms on all the doors and have her institutionalized. Sister is POA and insisted on medical evaluation. Of note these hallucinations/delusions do appear to be at baseline for the author who is familiar with Ms. Ye's clinical course. Patient repeatedly and consistently speaks of a friend/boyfriend who lives [place] that her family has not met. Patient's family does not believe that he exists. The truth is unclear at this juncture. Upon my assessment patient is lying comfortably in bed. She is appropriately interactive and oriented. She reports the above history in a calm and collected manner. She denies any dysuria, hematuria, abdominal pain, back pain, fevers, chills, CP, SOB. Did fall recently and was seen in the ED. No neuro deficits at that time. CT head with small frontal hematoma, no fractures. UA positive in the ED. Given daptomycin as patient recently hospitalized with MSSA UTI. Principal Diagnosis Cryptococcal meningitis, aggression Discharge Exam The patient is awake, alert and oriented 3, well developed and well nourished, normocephalic and atraumatic, lying in bed and in no acute distress. HEENT--PERRL, EOMI, mucous membranes and oropharynx mildly dry Neck--supple. No JVD. No bruits. Thyroid normal, trachea midline, no adenopathy. Heart--normal S1 and S2. No murmurs, rubs or gallops. Lungs--clear bilaterally, no respiratory distress, no accessory muscle use. Abdomen--normal bowel sounds and soft. Extremities--no cyanosis or clubbing. No edema. Dermatologic--normal skin turgor, normal color, no abnormal lymph nodes, no rash. Neurologic--cranial nerves II through XII grossly intact. Rheumatologic--normal range of motion. Psychiatric--normal affect. Discharge Data Allergies Allergy/AdvReac Type Severity Reaction Status Date / Time Penicillins Allergy Intermediate Hives Verified 11/29/23 12:53 atorvastatin Allergy Unknown CAN'T Verified 11/29/23 12:53 REMEMBER/? RAISED LIVER LEVELS gemfibrozil [From Lopid] Allergy Unknown CAN'T Verified 11/29/23 12:53 REMEMBER/ ? 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 twice daily, mirtazapine 45 mg p.o. HS, quetiapine 100 mg p.o. HS, and venlafaxine 150mg (decreased from 225mg on 12/20) p.o. HS -EEG completed if aspect of temporal seizure, no abnormalities noted. -Trialed brief course of Prednisone 40mg daily, discontinued due to no improvement of symptoms. Need for emt intermediate care facility -Placement remains an important consideration it was initially unclear, though presumed that dispo would be to her sister's and [id number]-[id number]'s house as they are medical POA. -12/08: Received letter from law office (representing sister and zorsiyg-[id number]-cyo) relinquishing medical POA/"decision making authority", and asking to "not contact them regarding [patient]." -[facility] at [facility] will take the patient tomorrow DM2 -pharmacy glycemic consult; sugars have been reasonable Asymptomatic bacteriuria -Treated in the ED with daptomycin x1; pt last grew MSSA in urine -Blood cx neg; urine cx grew staph -ABX discontinued. Patient remains asymptomatic. Afib -Chronic, stable -Continue with metoprolol 25 mg BID, Eliquis 5 mg BID HTN -Continue home medications. 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: (6) Depression: (7) Anxiety: (8) Hypertension: (9) Anemia: Total Time Total Time Spent Total Time Spent (In Minutes): 35 Discharge Plan Discharge Items Patient Disposition: Transfer Retirement Fac Reason For Visit: AGGRESSION Discharge Diagnosis: Cryptococcal meningitis, aggression Activity: Resume your previous activity Non-emergency contact: Primary Care Provider Call non-emergency contact if: you have any medication questions Follow-up/Referrals: Nori Tempel MD [Primary Care Provider] - Diet: Regular Addtl Attending Provider Instructions: Please follow-up with her regular PCP Pending Studies at Discharge: No Stand-Alone Forms: My [facility] Skilled Items Patient informed of condition?: Yes DNR: No Discharge Level of Care: Other Communicable Disease: No Discharge Prognosis: Stable Lines: None Urinary Catheter: No Medications and DC Order Prescriptions: New risperidone 2 mg Tablet 2 mg PO BID 30 Days Qty: 60 0RF Continued (DME) pen needle, diabetic [BD Ultra-Fine Jody Pen Needle] 32 gauge x 5/32" needle See Rx Instructions miscellaneous .MEDSUPPLY Qty: 200 5RF Rx Instructions: Inject up to 4x a day glucagon 3 mg/actuation spray,non-aerosol 3 mg intranasal ONCE PRN (Reason: hypoglycemia) Qty: 2 1RF insulin aspart U-100 [Novolog FlexPen U-100 Insulin] 100 unit/mL (3 mL) insulin pen See Rx Instructions subcut .COMPLEX Rx Instructions: subcutaneously; 4 u with meals plus sliding scale if glucose out of range. Do not apply sliding scale if you have taken NovoLog within past 4 hours. MDD 20 units Zyrtec 10 mg capsule 10 mg PO .@830AM Qty: 90 1RF thiamine HCl (vitamin B1) 100 mg tablet 200 mg PO DAILY Qty: 60 3RF potassium chloride 10 mEq capsule, extended release 10 meq PO .@830AM Qty: 90 1RF diclofenac sodium [Arthritis Pain (diclofenac)] 1 % gel 4 g topical QID PRN (Reason: arthritis) Qty: 100 5RF Rx Instructions: apply to neck and shoulders prn mirtazapine 45 mg tablet 45 mg PO HS Qty: 90 3RF (DME) blood-glucose meter [OneTouch Verio Flex meter] Misc See Rx Instructions .Route Qty: 1 0RF Rx Instructions: As directed (DME) OneTouch Verio test strips Strip See Rx Instructions .Route Qty: 400 3RF Rx Instructions: As directed 4x per day prior to taking insulin insulin glargine [Lantus Solostar U-100 Insulin] 100 unit/mL (3 mL) insulin pen 8 unit subcut BID 90 Days Qty: 15 3RF (DME) blood-glucose meter [Contour Next Glucose Meter] Kit See Rx Instructions .Route Qty: 1 0RF Rx Instructions: As directed (DME) lancets [Lancets,Ultra Thin] Misc See Rx Instructions .Route Qty: 200 11RF Rx Instructions: test sugars up to 6 times daily promethazine 12.5 mg tablet 12.5 mg PO TID PRN (Reason: nausea and vomiting) Qty: 10 0RF (DME) Contour Next Test Strips Strip See Rx Instructions .ROUTE .MEDSUPPLY Qty: 300 11RF Rx Instructions: Test blood sugars up to 6 times a day furosemide 20 mg tablet 20 mg PO QAM PRN (Reason: volume overload or weight gain) Qty: 30 0RF Rx Instructions: for weight gain of more than 3 pounds over 1-2 days. betamethasone dipropionate 0.05 % lotion 1 applic topical TID PRN (Reason: skin irritation) Qty: 60 0RF Rx Instructions: avoid face/genitals sennosides [senna] 8.6 mg Tablet 17.2 mg PO .@830AM multivitamin tablet 1 tab PO .@830AM venlafaxine 75 mg capsule,extended release 24hr 75 mg PO .@8PM Rx Instructions: TOTAL DAILY DOSE 225 MG (150mg + 75mg). fluconazole 200 mg tablet 400 mg PO .@830AM venlafaxine 150 mg capsule,extended release 24hr 150 mg PO .@8PM Rx Instructions: TOTAL DAILY DOSE 225 MG (150mg + 75mg) quetiapine 100 mg tablet 100 mg PO .@8PM pantoprazole 40 mg tablet,delayed release (DR/EC) 40 mg PO .@[id number] metoprolol succinate 25 mg tablet extended release 24 hr 25 mg PO .@[id number] fluticasone propionate [Flonase Allergy Relief] 50 mcg/actuation spray,suspe nsion 2 spray intranasal .@830AM Rx Instructions: administer into each nostril cholecalciferol (vitamin D3) 50 mcg (2,000 unit) capsule 2,000 unit PO .@830AM Mag 64 64 mg tablet,delayed release (DR/EC) 64 mg PO .@[id number] Eliquis 5 mg tablet 5 mg PO .@8AM8PM Discontinued risperidone 0.5 mg tablet 0.5 mg PO BID Qty: 60 3RF Discharge Orders: Discharge Order (Routine); Ordered 01/11/24 Ordered By: Ritu Aguilera Admission Data Admit Date/Time: 12/06/23 13:37 Attending Provider: Ritu Aguilera Admit Provider: Kaelyn Hameed Primary Care Provider: Nori Temple Other Providers: Lida Walker; Heartcarrie,; Dominic Conn Coding Level of Care Code 38289 INP/OBS DISCH >30 MIN Diagnoses Urinary tract infection without hematuria, site unspecified N39.0 Hematuria presence: without hematuria Urinary tract infection type: site unspecified Altered mental status, unspecified altered mental status type R41.82 Altered mental status type: unspecified Paroxysmal A-fib I48.0 Uncontrolled type 2 diabetes mellitus with hyperglycemia, with long-term current use of insulin E11.65; Z79.4 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
== END 2024-01-11 15:37 | DRG 885 ==
LOC: SUATTDRO → ED 22:38 → EDINP 22:38 → SUATTDRO 12-06 07:44 → 3E 12-06 08:37 → SUATTDRO 12-06 13:37 → 3E 12-06 16:16